=== PATIENT | male | born 1950 | race Caucasian/White ===

== ENCOUNTER → 2021-08-01 07:50 | Outpatient (CLI) | payer MEDICARE, OTHER, SELFPAY ==
--- NOTE | 2021-08-01 07:54 | ECHOCS_ITS ---
Version 2 Reason For Study: CAD/ASHD Procedure This was a 2D Doppler, Color Flow transthoracic echocardiogram. The study was technically difficult. Poor parasternal windows. Contrast injection was performed. Exam performed in department. Left Ventricle Normal LV size. Sigmoid septum. Segmental dysfunction with preserved ejection fraction (see wall motion). The estimated ejection fraction is 55 %. No evidence for diastolic dysfunction. Mid- inferoseptal : Hypokinetic. Mid-anteroseptal : Hypokinetic. Right Ventricle Normal RV size. Normal systolic function. Atria Normal left atrium. Normal right atrium. No doppler evidence for ASD. Mitral Valve There is no mitral annular calcification. Normal mitral valve. Trivial mitral valve insufficiency. Tricuspid Valve Normal tricuspid valve. Trivial tricuspid valve insufficiency. Unable to estimate RV systolic pressure/pulmonary artery pressure due to technically difficult study. Aortic Valve The aortic valve is not well visualized. Pulmonic Valve The pulmonic valve is not well visualized. Great Vessels Normal sized aortic root. Pericardium/Pleural No pericardial effusion. Medication 22 gauge I.V. with prn adaptor inserted into right arm. Diluted definity 3.0ml given slow IV push to enhance endocardial definition. MMode/2D Measurements & Calculations LVIDd: 4.7 cm IVSd: 1.2 cm Ao root diam: 3.5 cm LVIDs: 3.7 cm LVPWd: 1.0 cm RVDd: 3.2 cm FS: 22.4 % LAV(MOD-bp): 53.3 ml LA A4 area: 19.4 cm2 LA dimension(2D): 3.9 cm LAV(MOD-bp) Indexed: 26.5 ml/m2 LAV(MOD-sp2): 53.1 ml LAV(MOD-sp4): 53.4 ml RA A4 area: 16.8 cm2 Time Measurements MV dec time: 0.16 sec Doppler Measurements & Calculations MV E max po: 72.4 cm/sec Lat Peak E' Po: 11.3 cm/sec Med Peak E' Po: 9.6 cm/sec MV A max po: 96.3 cm/sec E/E' lat: 6.4 E/E' med: 7.6 MV E/A: 0.75 Ao V2 max: 141.0 cm/sec LV V1 max: 108.1 cm/sec PA V2 max: 94.1 cm/sec Ao max P.0 mmHg LV V1 max P.7 mmHg ECHO/Echo Complete W/ Contrast Interpretation Summary The study was technically difficult. Contrast injection was performed. Segmental dysfunction with preserved ejection fraction (see wall motion). The estimated ejection fraction is 55 %. Sigmoid septum. Trivial mitral valve insufficiency. Trivial tricuspid valve insufficiency. Unable to estimate RV systolic pressure/pulmonary artery pressure due to [place] difficult study. No evidence for diastolic dysfunction. Ordering Physician: David Lui Referring Physician: Savanna Sinclair Performed By: [place] Thornton, DARLIN, RVT
== END ==
PROVIDERS: PCP Internal Medicine; Referring Provider Internal Medicine Cardiovascular Disease; Visit Provider Internal Medicine Cardiovascular Disease
DX: I25.10 Atherosclerotic heart disease of native coronary artery without angina pectoris (principal)
CPT/HCPCS: 93306; Q9957; A4216; C8929; J3490

== ENCOUNTER 2022-01-02 06:52 | Inpatient (IN) | payer MEDICARE, OTHER, SELFPAY ==
[2022-01-02] VITALS (12 sets, daily range): BP systolic 139–178; BP diastolic 70–97; PULSE 89–104; RESP 12–18; TEMP 36.2–37; O2SAT 96–98; BMI 21.4; BMI 20.9
--- NOTE | 2022-01-02 07:08 | EKG12_ITS ---
Test Reason : GI Blood Pressure : / mmHG Vent. Rate : 097 BPM Atrial Rate : 097 BPM P-R Int : 132 ms QRS Dur : 090 ms QT Int : 334 ms P-R-T Axes : 066 070 080 degrees QTc Int : 424 ms Normal sinus rhythm with sinus arrhythmia Low voltage QRS (Limb Leads) Confirmed by MARISOL LORENZO, HENRY ([id number]), film and video editor JIM EDWARDS ([id number]) on 01/03/2022 8:44:35 AM Referred By: DI Confirmed By:HENRY DAMON MD
--- NOTE | 2022-01-02 07:10 | EDS_ITS ---
HPI History of Present Illness Chief Complaint: General Illness Informant: patient Narrative Narrative: Patient is a 71 year old male presenting with worsening generalized weakness, shortness of breath and cough. He states symptoms started about 2 weeks ago. He went to urgent care 2 days ago and had a chest x ray. He was diagnosed with pneumonia. He was started on cefdinir, azithromycin, prednisone, Tessalon and prednisone. He notes his blood sugars been high because in addition to the prednisone he was given a steroid injection into his shoulder 1 week ago. States he started feeling worse yesterday. Has been drinking lots of samaniego had increased urination as well. Has body aches but no fever. Denies any chest pain. Denies any pulmonary issues in the past. Does have a history of stroke, diabetes mellitus and cardiomyopathy. [facility] Medical History Atherosclerotic heart disease of [place] coronary artery without angina pectoris Bilateral carotid artery stenosis BPH (benign prostatic hyperplasia) Cardiomyopathy, ischemic CKD (chronic kidney disease) stage 3, GFR 30-59 ml/min DDD (degenerative disc disease) Essential hypertension Hemorrhagic cerebrovascular accident (CVA) History of left heart catheterization (LHC) Multiple lacunar infarcts Presence of stent in coronary artery (~08/28/01) Pure hypercholesterolemia Right carotid artery occlusion Type 2 diabetes mellitus Home Medications ascorbic acid (vitamin C) 500 mg tablet 500 mg PO DAILY 07/05/21 [History Last Taken Unknown] aspirin 81 mg tablet,delayed release 81 mg PO DAILY 07/05/21 [History Last Taken Unknown] cyanocobalamin (vitamin B-12) 5,000 mcg disintegrating tablet 5,000 mcg PO DAILY 07/05/21 [History Last Taken Unknown] glimepiride 4 mg tablet 4 mg PO BID tab 07/05/21 [History Last Taken Unknown] loratadine 10 mg tablet 10 mg PO DAILY 07/05/21 [History Last Taken Unknown] metformin 500 mg tablet 1,000 mg PO BID tab 07/05/21 [History Last Taken Unknown] amlodipine 5 mg tablet 5 mg PO DAILY #90 tab 07/20/21 [Rx Last Taken Unknown] atorvastatin 80 mg tablet 80 mg PO QHS #90 tab 07/20/21 [Rx Last Taken Unknown] cholecalciferol (vitamin D3) 25 mcg (1,000 unit) tablet 25 mcg PO BID tab 07/20/21 [History Last Taken Unknown] clopidogrel 75 mg tablet 75 mg PO DAILY #1 tab 07/20/21 [Rx Last Taken Unknown] lisinopril 20 mg tablet 20 mg PO DAILY #90 tab 07/20/21 [Rx Last Taken Unknown] magnesium oxide 250 mg PO BID 07/20/21 [History Last Taken Unknown] carvedilol 3.125 mg tablet 3.125 mg PO BID #180 tab 08/02/21 [Rx Last Taken Unknown] pen needle, diabetic 32 gauge x 1/6 #100 ea 09/22/21 [Rx Last Taken Unknown] insulin glargine U-300 conc 300 unit/mL (1.5 mL) subcutaneous pen 36 unit SUBCUT DAILY #4.5 ml 09/25/21 [Rx Last Taken Unknown] albuterol sulfate 2 puff INHALATION Q6H PRN 01/02/22 [History Last Taken Unknown] azithromycin 250 mg PO DAILY 01/02/22 [History Last Taken Unknown] benzonatate [Tessalon Perles] 100 mg PO TID PRN 01/02/22 [History Last Taken Unknown] cefdinir 300 mg PO BID 01/02/22 [History Last Taken Unknown] prednisone 40 mg PO DAILY 01/02/22 [History Last Taken Unknown] Allergy/AdvReac Type Severity Reaction Status Date / Time No Known Allergies Allergy Verified 01/02/22 06:59 Family History Mother CAD (coronary artery disease) Diabetes Myocardial infarction, Onset Age: 48 Father Diabetes Breast cancer Brother Diabetes Brother Cancer Prostate Surgical History History of arthroscopic surgery of shoulder History of laminectomy (~2007) Presence of coronary angioplasty implant and graft (~08/28/01) Social History Smoking Status: Former smoker alcohol intake: current details: occasional substance use type: does not use caffeine: Yes Type: tea Number of servings: 1 what type of physical activity do you participate in: none ROS ROS ED Constitutional Constitutional ED: Denies chills or fever(s) Eyes Eyes: Denies blurry vision ENT ENT ED: Denies rhinorrhea or sore throat Cardiovascular Cardiovascular: Denies chest pain or palpitations Respiratory/Chest Respiratory/Chest: Reports cough, dyspnea, dyspnea on exertion and sputum Gastrointestinal Gastrointestinal: Reports vomiting; Denies abdominal pain, constipation, diarrhea or nausea Genitourinary Genitourinary ED: Reports urinary frequency; Denies dysuria or hematuria Musculoskeletal Musculoskeletal: Reports myalgias; Denies back pain or neck pain Integumentary Denies rash Neurologic Neurologic: Reports weakness; Denies headache(s) or paresthesias Psychiatric Psychiatric: Denies depression Endocrine Endocrinology: Reports polydipsia and polyuria EXAM Physical Exam Const Vital Signs: 01/02/22 06:53 01/02/22 06:58 01/02/22 07:00 Temperature 98.6 F 98.6 F Temperature Source Temporal Temporal Pulse Rate 104 H 103 H Respiratory Rate 16 14 Respiratory Effort Normal Blood Pressure 178/97 H 178/97 H Blood Pressure Mean 124 124 Pulse Ox 96 Oxygen Delivery Method Room Air Room Air 01/02/22 08:04 01/02/22 09:00 Temperature 98.5 F 98.2 F Temperature Source Temporal Temporal Pulse Rate 93 91 Respiratory Rate 14 16 Respiratory Effort Blood Pressure 167/74 H 168/70 H Blood Pressure Mean 105 102 Pulse Ox 97 97 Oxygen Delivery Method Room Air Room Air Positive well nourished and well developed General Appearance ED: well developed and NAD HEENT Reports dry mucous membranes Negative for tenderness Mouth ED: Yes dry mucous membranes Mouth: dry mucous membranes Eyes PERRL and EOMs intact bilaterally Neck supple and no JVD Chest Wall inspection of chest normal Resp normal respiratory effort Auscultation: diminished lung sounds left upper; Negative for rales or rhonchi Cardio regular rhythm and no murmurs Rate: tachycardic GI normal to inspection, nondistended, normoactive bowel sounds and non-tender Palpation: soft Back/Spine no CVA tenderness Extremity normal to inspection General Extremety ED: Negative for edema or tenderness General Extremity: Negative for edema Neuro oriented x3 Sensorium / Orientation: alert Motor Exam: general weakness Psych mental status grossly normal Skin no rashes or lesions noted and no wounds MDM MDM MDM Narrative Medical decision making narrative: Patient is evaluated with her generalized weakness in the setting of recent diagnosis of pneumonia. He is already on antibiotics and prednisone. Patient peers mildly dehydrated and generally weak but otherwise ago exam is pretty unremarkable. Does have mildly decreased breath sounds in the left upper lobe. Work-up shows a leukocytosis of 16.6. This could be reactive from his recent steroids versus infectious. BMP is remarkable for hyperglycemia with glucose of 500 however his anion gap is 15. Calcium is 5.5 however patient does not have peaked T waves or EKG changes were secondary to his hyperglycemia. Sodium was 130 which is consistent with a pseudohyponatremia. His creatinine is 2.04. I do not have prior labs for baseline comparison. Patient's lactate is elevated 3.8. Troponin is normal at 7. Will add on blood cultures, VBG to check the patient's pH and acetone for concern of possible DKA vs HHNK. His calculated serum osmolality is 315. Is given a liter of fluid in the ER. Acetone negative. Normal pH. Likely this is just hyperglycemia. Patient given 8 units of insulin in the ER. He is admitted. I suspect his lactic acidosis is more from dehydration but infection is also on the differential. He is covered with IV broad-spectrum antibiotics for possible pneumonia given his history however chest x-ray is negative today. No other clear source of infection found. Will be admitted to hospital service for further management of his electrolyte derangement, weakness and possible pneumonia. Lab Data Labs: Laboratory Results - last 24 hr 01/02/22 01/02/22 01/02/22 07:00 07:00 07:00 WBC 16.6 H RBC 5.53 Hgb 17.3 H Hct 49.1 MCV 88.8 MCH 31.3 MCHC 35.2 RDW Std Deviation 40.9 RDW Coeff of Rich 12.5 Plt Count 417 MPV 10.0 Immature Gran % (Auto) 0.700 Neut % (Auto) 80.2 H Lymph % (Auto) 11.3 L Braxton % (Auto) 7.6 Eos % (Auto) 0.0 Baso % (Auto) 0.2 Absolute Neuts (auto) 13.3 H Absolute Lymphs (auto) 1.87 Nucleated RBC % 0 Sodium 130 L Potassium 5.5 H Chloride 91 L Carbon Dioxide 24.0 Anion Gap 15 BUN 76 H Creatinine 2.04 H Estim Creat Clear Calc 33.64 Est GFR (MDRD) Af Amer 42 L Est GFR (MDRD) Non-Af 34 L BUN/Creatinine Ratio 37.3 H Glucose 500 H* Lactic Acid 3.8 H* Calcium 11.1 H Total Bilirubin 0.70 AST 14 L ALT 52 Alkaline Phosphatase 77 Troponin I High Sens 7 Total Protein 8.9 H Albumin 4.4 Globulin 4.5 H Albumin/Globulin Ratio 1.0 Urine Color Urine Clarity Urine pH Ur Specific [place] Urine Protein Urine Glucose (UA) Urine Ketones Urine Occult Blood Urine Nitrite Urine Bilirubin Urine Urobilinogen Ur Leukocyte Esterase Urine RBC Urine WBC Ur Squamous Epith Cells Urine Bacteria Urine Mucus Acetone Level 01/02/22 01/02/22 08:20 09:05 WBC RBC Hgb Hct MCV MCH MCHC RDW Std Deviation RDW Coeff of Rich Plt Count MPV Immature Gran % (Auto) Neut % (Auto) Lymph % (Auto) Braxton % (Auto) Eos % (Auto) Baso % (Auto) Absolute Neuts (auto) Absolute Lymphs (auto) Nucleated RBC % Sodium Potassium Chloride Carbon Dioxide Anion Gap BUN Creatinine Estim Creat Clear Calc Est GFR (MDRD) Af Amer Est GFR (MDRD) Non-Af BUN/Creatinine Ratio Glucose Lactic Acid Calcium Total Bilirubin AST ALT Alkaline Phosphatase Troponin I High Sens Total Protein Albumin Globulin Albumin/Globulin Ratio Urine Color Yellow Urine Clarity Sl. Cloudy Urine pH 6.0 Ur Specific [place] 1.015 Urine Protein 15 H Urine Glucose (UA) 1000 H Urine Ketones 15 H Urine Occult Blood Negative Urine Nitrite Negative Urine Bilirubin Negative Urine Urobilinogen Normal Ur Leukocyte Esterase Negative Urine RBC 0 SEEN Urine WBC 0 SEEN Ur Squamous Epith Cells 0-5 SEEN Urine Bacteria 0 SEEN Urine Mucus 0 SEEN Acetone Level NEGATIVE ABG Data ABG results: ABG 01/02/22 09:17 Specimen Type JUDY VBG pH 7.39 VBG pO2 25 VBG HCO3 22 VBG Total CO2 23 VBG O2 Sat (Calc) 45 L VBG Base Excess -3 L POC Mix VBG pCO2 Pt Tmp 35.3 L Radiography Diagnostic Testing: Clinical Impression(s) from Imaging Studies Chest X-Ray 01/02/22 08:00 IMPRESSION: No obvious acute cardiopulmonary pathology. If Covid 19 pneumonia is a strong clinical consideration, HRCT chest is more sensitive in detecting subtle groundglass opacities not obvious on plain film radiographs. Please correlate with RT-PCR testing. Electronically Signed: Angel Gentile MD at 8:26 EDT , Rhythm Strip Rhythm Strip: Sinus Rhythm Rate: 97 Ectopy: None EKG Initial EKG: Attestation: I personally reviewed and interpreted this EKG as follows: Interpretation: Sinus Rhythm Comments: Normal sinus rhythm with sinus arrhythmia at rate of 97 NE interval 132 QRS 90 QTC [address] segments Discharge Plan Triage Chief Complaint: General Illness ED Provider: Tatiana Strauss Dx/Rx/DC Orders Clinical Impression: Lactic acidosis, Hyperglycemia, Weakness Primary Care Provider: Savanna Sinclair Disposition Disposition: Acute Care [facility]
[2022-01-02 07:23] LABS: Absolute Lymphocyte Count 1.87 X10^3/uL (0.83-4.51); Absolute Neutrophil Count 13.3 X10^3/uL (2.0-7.7); Basophil# 0.03 X10^3/uL; Basophil% 0.2 % (0-1); Hematocrit 49.1 % (40-54); Hemoglobin 17.3 g/dL (13.0-16.5); Lymphocyte # 1.87 X10^3/ul (0.83-4.51); Lymphocyte % 11.3 % (19-41); Mean Corp Hgb Conc 35.2 g/dL (32-36); Mean Corpuscular Hgb 31.3 pg (27.0-32.0); Mean Corpuscular Volume 88.8 fL (80-94); Monocyte# 1.26 X10^3/uL; Monocyte% 7.6 % (0-10); NRBC Flagged by Analyzer 0 % (0-5); Neutrophil # 13.34 X10^3/uL (2.7-7.7); Neutrophil % 80.2 % (47-70); Platelet Count 417 K/mm3 (150-450); RBC Distribution Width CV 12.5 % (11.6-14.6); RBC Distribution Width SD 40.9 fl (35.1-43.9); Red Blood Count 5.53 M/mm3 (4.6-6.2); White Blood Count 16.6 K/mm3 (4.4-11.0)
[2022-01-02] MEDS: 0.9% Normal Saline 1,000 ML 1000 ML IV (07:35)
[2022-01-02 07:53] LABS: AST(SGOT) 14 U/L (15-37); Alanine Aminotransfer ALT/SGPT 52 U/L (16-61); Albumin, Serum 4.4 g/dL (3.2-5.0); Alkaline Phosphatase 77 U/L (45-117); Anion Gap 15 (5-15); BUN 76 mg/dL (7-18); BUN/Creat Ratio 37.3 RATIO (10-20); Calcium,Total 11.1 mg/dL (8.5-10.1); Chloride 91 mmol/L (98-107); Creatinine, Serum 2.04 mg/dL (0.70-1.30); EST Glomerular Filtration Rate 34 mL/min (>60); Est Glom Filt Rate - Afr Amer 42 mL/min (>60); Estimated Creatinine Clearance 33.64 ml/min; Globulin 4.5 g/dL (2.2-4.2); Glucose 500 mg/dL (74-106); Potassium 5.5 mmol/L (3.5-5.1); Protein, Total 8.9 g/dL (6.4-8.2); Sodium Level 130 mmol/L (136-145); Troponin-I HS 7 pg/mL (3.0-78.0)
[2022-01-02 07:55] LABS: Lactic Acid 3.8 mmol/L (0.4-1.9)
--- NOTE | 2022-01-02 08:00 | RAD_ITS ---
EXAM: XR CHEST, 1 VIEW CLINICAL INDICATION: cough TECHNIQUE: Frontal view of the chest. This report was created using [employer] report generation technology. COMPARISON: None. FINDINGS: LUNGS AND PLEURAL SPACES: Mild pulmonary hypoinflation. No obvious infiltrates. No pneumothorax. No effusion. HEART: Unremarkable. Cardiac silhouette not enlarged. MEDIASTINUM: Central airways and mediastinal contour are unremarkable. BONES/JOINTS: Unremarkable. SOFT TISSUES: Unremarkable. RAD/Chest 1 View (Portable) IMPRESSION: No obvious acute cardiopulmonary pathology. If Covid 19 pneumonia is a strong clinical consideration, HRCT chest is more sensitive in detecting subtle groundglass opacities not obvious on plain film radiographs. Please correlate with RT-PCR testing. Electronically Signed: Angel Gentile MD at 8:26 EDT ,
--- NOTE | 2022-01-02 08:09 | ED.RN ---
Dr Strauss made aware pt has triggered sepsis alert. States to give current fluid bolus and then run maintenance fluids at 200 ml/hr due to history of ischemic cardiomyopathy.
[2022-01-02] MEDS: 0.9% Normal Saline 1,000 ML 200 ML IV (08:45)
[2022-01-02 09:13] LABS: Bacteria 0 SEEN /hpf (None Seen); Mucous, Urine 0 SEEN /hpf (<or=2+); Red Blood Cells-Urine 0 SEEN /hpf (0-5); White Blood Cells 0 SEEN /hpf (0-5)
[2022-01-02 09:14] LABS: Color, Urine Yellow (Yellow); Glucose, Dipstick 1000 mg/dl (Normal); Ketone-Dipstick 15 mg/dl (Negative); Leukocyte Esterase-Dipstick Negative /ul (Negative); Nitrite-Dipstick Negative (Negative); Occult Blood-Urine Negative /ul (Negative); Protein-Dipstick 15 mg/dl (Negative); Specific Gravity, Urine 1.015 (1.002-1.030); Urine Bilirubin Dipstick Negative (Negative); Urine Clarity Sl. Cloudy (Clear); Urine Urobilinogen Normal (Normal)
[2022-01-02 09:21] LABS: Blood Gas Specimen Type VEN; VBG BASE EXCESS -3 mmol/L (-1.0-3.5); VBG Bicarbonate 22 mmol/L (22-26); VBG PO2 25 mmHg (25-40); VBG SO2 45 % (50-70); VBG TCO2 23 mmol/L (23-33); VBG pCO2 35.3 mmHg (41-51); VBG pH 7.39 (7.32-7.42)
[2022-01-02 09:28] LABS: Squamous Epithelial Cells - UA 0-5 SEEN /hpf (0-5)
--- NOTE | 2022-01-02 09:39 | HP.PCM.HOS_ITS ---
HPI - General General Date of Admission: 01/02/22 HPI Narrative MARIBELL LAINEZ, is a 71 M with a PMH as outlined who presents via the ED on 01/02/2022 with a complaint of generalised malaise and weakness. He had associated shortness of breath and cough and symptoms had been going on for ~ 2 weeks. He went to the urgent care 2 days prior to admission and says he was diagnosed with pneumonia and given antibiotics, steroids and tessalon. He says he also had a steroid shot in his shoulder about a week ago. He noted his sugars had been getting very high at home and he had increased frequency of urination and and drinking plenty of water as well. He still coughing but is scantly productive of sputum. He denies any fever, any chills and says he vomited once yesterday but has not vomited again since then.Review of systems was otherwise negative. Vitals at time of review were BP of 167/74, CT of 93, RR of 14 and temp of 98.5F and he was saturaing at 97% on room air. CBC showed WBC of 16.6 and hemoglobin of 17.3 with platelets of 417. Chemistry showed sodium of 132 with potassium of 5.5 and creatinine of 2.04. There is no baseline to compare with. Anion gap is 15. Bicarb is 24. Blood glucose was 500 and lactic acid was 3.8. Urinalysis showed no evidence of infection. Chest x-ray showed no obvious acute cardiopulmonary pathology. He has been admitted to be managed for hyperglycemia and lactic acidosis. [facility] Medical History Atherosclerotic heart disease of [place] coronary artery without angina pectoris Bilateral carotid artery stenosis BPH (benign prostatic hyperplasia) Cardiomyopathy, ischemic CKD (chronic kidney disease) stage 3, GFR 30-59 ml/min DDD (degenerative disc disease) Essential hypertension Hemorrhagic cerebrovascular accident (CVA) History of left heart catheterization (LHC) Multiple lacunar infarcts Presence of stent in coronary artery (~08/28/01) Pure hypercholesterolemia Right carotid artery occlusion Type 2 diabetes mellitus Home Medications ascorbic acid (vitamin C) 500 mg tablet 500 mg PO DAILY 07/05/21 [History Last Taken Unknown] aspirin 81 mg tablet,delayed release 81 mg PO DAILY 07/05/21 [History Last Taken Unknown] cyanocobalamin (vitamin B-12) 5,000 mcg disintegrating tablet 5,000 mcg PO DAILY 07/05/21 [History Last Taken Unknown] glimepiride 4 mg tablet 4 mg PO BID tab 07/05/21 [History Last Taken Unknown] loratadine 10 mg tablet 10 mg PO DAILY 07/05/21 [History Last Taken Unknown] metformin 500 mg tablet 1,000 mg PO BID tab 07/05/21 [History Last Taken Unkn own] amlodipine 5 mg tablet 5 mg PO DAILY #90 tab 07/20/21 [Rx Last Taken Unknown] atorvastatin 80 mg tablet 80 mg PO QHS #90 tab 07/20/21 [Rx Last Taken Unknown] cholecalciferol (vitamin D3) 25 mcg (1,000 unit) tablet 25 mcg PO BID tab 07/20/21 [History Last Taken Unknown] clopidogrel 75 mg tablet 75 mg PO DAILY #1 tab 07/20/21 [Rx Last Taken Unknown] lisinopril 20 mg tablet 20 mg PO DAILY #90 tab 07/20/21 [Rx Last Taken Unknown] magnesium oxide 250 mg PO BID 07/20/21 [History Last Taken Unknown] carvedilol 3.125 mg tablet 3.125 mg PO BID #180 tab 08/02/21 [Rx Last Taken Unknown] pen needle, diabetic 32 gauge x 1/6 #100 ea 09/22/21 [Rx Last Taken Unknown] insulin glargine U-300 conc 300 unit/mL (1.5 mL) subcutaneous pen 36 unit SUBCUT DAILY #4.5 ml 09/25/21 [Rx Last Taken Unknown] albuterol sulfate 2 puff INHALATION Q6H PRN 01/02/22 [History Last Taken Unknown] azithromycin 250 mg PO DAILY 01/02/22 [History Last Taken Unknown] benzonatate [Tessalon Perles] 100 mg PO TID PRN 01/02/22 [History Last Taken Unknown] cefdinir 300 mg PO BID 01/02/22 [History Last Taken Unknown] prednisone 40 mg PO DAILY 01/02/22 [History Last Taken Unknown] Allergy/AdvReac Type Severity Reaction Status Date / Time No Known Allergies Allergy Verified 01/02/22 06:59 Family History Mother CAD (coronary artery disease) Diabetes Myocardial infarction, Onset Age: 48 Father Diabetes Breast cancer Brother Diabetes Brother Cancer Prostate Surgical History History of arthroscopic surgery of shoulder History of laminectomy (~2007) Presence of coronary angioplasty implant and graft (~08/28/01) Social History Smoking Status: Former smoker alcohol intake: current details: occasional substance use type: does not use caffeine: Yes Type: tea Number of servings: 1 what type of physical activity do you participate in: none ROS Constitutional Constitutional: Reports anorexia, fatigue, malaise and weakness; Denies change in weight, chills or fever(s) Eyes Eyes: Denies change in vision ENT HEENT: Denies dysphagia, headache(s) or sore throat Cardiovascular Cardiovascular: Denies chest pain, dyspnea on exertion, edema, lightheadedness, orthopnea, palpitations, rapid heart rate or syncope Respiratory/Chest Respiratory/Chest: Reports cough, productive cough, shortness of breath at rest and shortness of breath with exertion; Denies dyspnea, excessive phlegm produ ction, hemoptysis or wheezing Gastrointestinal Gastrointestinal: Reports vomiting; Denies abdominal pain, constipation, diarrhea or nausea Genitourinary Genitourinary: Reports urinary frequency; Denies burning urination, difficulty urinating or dysuria Musculoskeletal Musculoskeletal: Denies arthralgias Neurologic Neurologic: Denies confusion, dizziness, focal weakness, headache(s), numbness, seizure-like activity or seizures Psychiatric Psychiatric: Denies anxiety Endocrine Endocrinology: Denies change in body appearance Hematologic/Lymphatic Hematologic/Lymphatic: Denies anemia Vital Signs Vital Signs Vital Signs: 01/02/22 06:53 01/02/22 06:58 01/02/22 07:00 Temperature 98.6 F 98.6 F Temperature Source Temporal Temporal Pulse Rate 104 H 103 H Respiratory Rate 16 14 Respiratory Effort Normal Blood Pressure 178/97 H 178/97 H Blood Pressure Mean 124 124 Pulse Ox 96 Oxygen Delivery Method Room Air Room Air 01/02/22 08:04 Temperature 98.5 F Temperature Source Temporal Pulse Rate 93 Respiratory Rate 14 Respiratory Effort Blood Pressure 167/74 H Blood Pressure Mean 105 Pulse Ox 97 Oxygen Delivery Method Room Air Weight Weight: 157 lb 13.616 oz Body Mass Index (BMI) 21.4 Physical Exam Const alert and oriented x3 Orientation / Consciousness: disoriented HEENT normocephalic, head/scalp atraumatic and hearing grossly normal bilaterally HEENT Narrative: dry oral mucosa Eyes PERRL, EOMs intact bilaterally and conjunctivae normal Neck no lymphadenopathy and supple Resp normal respiratory effort, no retractions, no use of accessory muscles and clear to auscultation bilaterally Cardio regular rate, regular rhythm, S1 normal heart sound, S2 normal heart sound and no murmurs GI normal to inspection, nondistended, normoactive bowel sounds, soft to palpation, non-tender and non-distended Extremity normal to inspection, full ROM and no clubbing, cyanosis or edema Peripheral Pulses: Yes pulses 2+ throughout Skin no rashes or lesions noted Neuro oriented x3, CN's II-XII intact bilaterally and moves all extremities Sensorium / Orientation: awake and alert Psych affect normal Results Lab / Micro Data Result Diagrams: 01/02/22 07:00 01/02/22 07:00 Labs: Laboratory Results - last 24 hr 01/02/22 07:00: WBC 16.6 H, RBC 5.53, Hgb 17.3 H, Hct 49.1, MCV 88.8, MCH 31.3, MCHC 35.2, RDW Std Deviation 40.9, RDW Coeff of Rich 12.5, Plt Count 417, MPV 10.0, Immature Gran % (Auto) 0.700, Neut % (Auto) 80.2 H, Lymph % (Auto) 11.3 L, [place] % (Auto) 7.6, Eos % (Auto) 0.0, Baso % (Auto) 0.2, Absolute Neuts (auto) 13.3 H, Absolute Lymphs (auto) 1.87, Nucleated RBC % 0 01/02/22 07:00: Sodium 130 L, Potassium 5.5 H, Chloride 91 L, Carbon Dioxide 24.0, Anion Gap 15, BUN 76 H, Creatinine 2.04 H, Estim Creat Clear Calc 33.64, Est GFR (MDRD) Af Amer 42 L, Est GFR (MDRD) Non-Af 34 L, BUN/Creatinine Ratio 37.3 H, Glucose 500 H*, Calcium 11.1 H, Total Bilirubin 0.70, AST 14 L, ALT 52, Alkaline Phosphatase 77, Troponin I High Sens 7, Total Protein 8.9 H, Albumin 4.4, Globulin 4.5 H, Albumin/Globulin Ratio 1.0 01/02/22 07:00: Lactic Acid 3.8 H* 01/02/22 08:20: Acetone Level NEGATIVE 01/02/22 09:05: Urine Color Yellow, Urine Clarity Sl. Cloudy, Urine pH 6.0, Ur Specific [place] 1.015, Urine Protein 15 H, Urine Glucose (UA) 1000 H, Urine Ketones 15 H, Urine Occult Blood Negative, Urine Nitrite Negative, Urine Bilirubin Negative, Urine Urobilinogen Normal, Ur Leukocyte Esterase Negative, Urine RBC 0 SEEN, Urine WBC 0 SEEN, Ur Squamous Epith Cells 0-5 SEEN, Urine Bacteria 0 SEEN, Urine Mucus 0 SEEN Micro: Microbiology 01/02/22 07:40 Nasal Secretion SARS-CoV-2 & FLU Antigen (Rapid) - Final ABG Data ABG results: ABG 01/02/22 09:17 Specimen Type JUDY VBG pH 7.39 VBG pO2 25 VBG HCO3 22 VBG Total CO2 23 VBG O2 Sat (Calc) 45 L VBG Base Excess -3 L POC Mix VBG pCO2 Pt Tmp 35.3 L Rhythm Strip Rhythm Strip: Sinus Rhythm Rate: 97 Ectopy: None Radiology Impression Chest X-Ray 01/02/22 08:00 IMPRESSION: No obvious acute cardiopulmonary pathology. If Covid 19 pneumonia is a strong clinical consideration, HRCT chest is more sensitive in detecting subtle groundglass opacities not obvious on plain film radiographs. Please correlate with RT-PCR testing. Electronically Signed: Angel Gentile MD at 8:26 EDT , Assessment & Plan Assessment/Plan (1) Hyperglycemia: (2) Lactic acidosis: PLAN: #Hyperglycemia, likely exacerbated by steroid use * admit to PCU * blood sugar was in the 500s on admission. Says he has been on oral prednisone which was prescribed at an urgent care as part of treatment for pneumonia * urinalysis showed no evidence of infection. CXR also showed no evidence of pneumonia * wbc is 16.6, likely due to steroid usage. It is mainly a neutrophilia * hydrate aggressively with iVF * give SQ insulin lispro 20 units x 1, and assess hourly to adjust insulin dose as needed for hyperglycemia * get blood cultures * covid test is negative, and flu test was also negative * will give IV vancomycin and zosyn empirically and await blood cultures * bicarb is 24 and anion gap is 15, so there is no DKA. * check A1C * hold glimepiride * on lantus 36 units daily. Will resume * #LActic acidosis: likely due to dehydration. hold metformin. hydrate with IVF and trend lactic acid #Hyperkalemia: Potassium is 5.5. Will give Kayexalate and hold all nephrotoxic meds and trend. #JINA: * Creatinine is 2.04. * No baseline is available. * Will hydrate with fluids and trend. If it does not improve, then we will do extensive work-up including urine electrolytes and renal ultrasound. * #History of CVA; has residual mild expressive aphasia. on aspirin and statin as well as carvedilol #Hypertension; on amlodipine and carvedilol. Hold lisinopril DVT prophylaxis: lovenox Code status: full code * Patient and counseled extensively about different types of CODE STATUS including full code, DNR CCA and DNR CCA. Patient elects to be full code. * Total [id number] time 17 minutes. Charges/Coding Visit Charges Inpatient E&M: 86447 Init Hosp L3 Procedures Hospitalists Procedures: 87530 Advncd Care Plan 30 Min
[2022-01-02 10:06] LABS: Bedside Glucose 334 mg/dL (74-106)
[2022-01-02] MEDS: Insulin Lispro 100 UNIT/ML INSULN.PEN 8 UNIT SC (11:09)
[2022-01-02 11:14] LABS: Reflex Lactate? Y
[2022-01-02] MEDS: 0.9% Normal Saline 1,000 ML 150 ML IV ×2 (12:15→18:30)
[2022-01-02 12:31] LABS: Bedside Glucose 400 mg/dL (74-106)
[2022-01-02 12:33] LABS: Lactic Acid 1.5 mmol/L (0.4-1.9)
[2022-01-02] MEDS: Carvedilol 3.125 MG TABLET PO ×2 (13:39→22:02)
[2022-01-02] MEDS: Loratadine 10 MG Tablet PO (13:39)
[2022-01-02] MEDS: Magnesium Chloride 64 MG Delay Rel.Tablet 128 MG PO ×2 (13:39→22:03)
[2022-01-02] MEDS: Aspirin E.C. 81 MG Tablet PO (13:39)
[2022-01-02] MEDS: Clopidogrel Bisulfate 75 MG Tablet PO (13:39)
[2022-01-02] MEDS: Glimepiride 4 MG Tablet PO ×2 (13:39→22:02)
[2022-01-02] MEDS: Cyanocobalamin 500 MCG Tablet 5000 MCG PO (13:39)
[2022-01-02] MEDS: Cholecalciferol (VIT D3) 25 MCG TABLET (1,000 UNITS) PO ×2 (13:40→22:04)
[2022-01-02] MEDS: Ascorbic Acid 500 MG Tablet PO (13:40)
[2022-01-02] MEDS: Insulin Lispro 100 UNIT/ML INSULN.PEN 20 UNIT SC (13:41)
[2022-01-02 16:05] LABS: Bedside Glucose 325 mg/dL (74-106)
--- NOTE | 2022-01-02 16:22 | PCM.RX.CS ---
Consult Pharmacy has been consulted to manage selected antiobiotic: Vancomycin Type of Consult: New start Suspected Infection: Other Labs: Sodium 130 mmol/L (136-145) L 01/02/22 07:00 Potassium 5.5 mmol/L (3.5-5.1) H 01/02/22 07:00 Chloride 91 mmol/L (98-107) L 01/02/22 07:00 Carbon Dioxide 24.0 mmol/L (21.0-32.0) 01/02/22 07:00 Anion Gap 15 (5-15) 01/02/22 07:00 BUN 76 mg/dL (7-18) H 01/02/22 07:00 Creatinine 2.04 mg/dL (0.70-1.30) H 01/02/22 07:00 Est GFR (MDRD) Af Amer 42 mL/min (>60) L 01/02/22 07:00 Est GFR (MDRD) Non-Af 34 mL/min (>60) L 01/02/22 07:00 BUN/Creatinine Ratio 37.3 RATIO (10-20) H 01/02/22 07:00 Glucose 500 mg/dL (74-106) H* 01/02/22 07:00 Microbiology: Microbiology 01/02/22 07:40 Nasal Secretion SARS-CoV-2 & FLU Antigen (Rapid) - Final Pharmacy Plan for Drug Dosing: NEW START IV VANCOMYCIN Consulting Physician: MIKIE Indication: UNKNOWN, BLOOD CULTURES PENDING Goal Trough: 15-20 MG/DL SrCr: 2.04 (01/02) - NO BASELINE IN CHART TO COMPARE CrCl: 32.9 ML/MIN Comments: LOADING DOSE OF 1750MG GIVEN 01/02 @ 1448 Vancomycin Dose: START 1000MG Q24H 01/03 @ 1500 AND GET A TROUGH PRIOR TO 3RD DOSE PER POLICY. Pending Level: 01/04 @ 1430 Pharmacy Service will continue to monitor and adjust dosing as required.
[2022-01-02] MEDS: Insulin Lispro 100 UNIT/ML INSULN.PEN SC ×2 (17:16→22:02)
[2022-01-02] MEDS: Sodium Polystyrene Sulfonate 15 GM/60 ML UDC 30 GM PO (17:16)
[2022-01-02] MEDS: Atorvastatin Calcium 80 MG Tablet PO (22:03)
[2022-01-02 22:16] LABS: Bedside Glucose 349 mg/dL (74-106)
[2022-01-03] VITALS (10 sets, daily range): BP systolic 120–150; BP diastolic 76–85; PULSE 81–98; RESP 15–16; TEMP 36.6–37.1; O2SAT 95–98
[2022-01-03 01:50] LABS: Bedside Glucose 287 mg/dL (74-106)
[2022-01-03 06:02] LABS: Absolute Lymphocyte Count 1.15 X10^3/uL (0.83-4.51); Absolute Neutrophil Count 11.5 X10^3/uL (2.0-7.7); Basophil# 0.02 X10^3/uL; Basophil% 0.1 % (0-1); Hematocrit 41.4 % (40-54); Hemoglobin 14.5 g/dL (13.0-16.5); Lymphocyte # 1.15 X10^3/ul (0.83-4.51); Lymphocyte % 8.3 % (19-41); Mean Corpuscular Hgb 30.8 pg (27.0-32.0); Mean Corpuscular Volume 87.9 fL (80-94); Mean Platelet Vol. 9.7 fl (6.2-12.0); Monocyte# 1.03 X10^3/uL; Monocyte% 7.5 % (0-10); NRBC Flagged by Analyzer 0 % (0-5); Neutrophil % 83.5 % (47-70); Platelet Count 319 K/mm3 (150-450); RBC Distribution Width CV 12.6 % (11.6-14.6); RBC Distribution Width SD 40.6 fl (35.1-43.9); Red Blood Count 4.71 M/mm3 (4.6-6.2); White Blood Count 13.8 K/mm3 (4.4-11.0)
[2022-01-03] MEDS: Insulin Lispro 100 UNIT/ML INSULN.PEN SC ×4 (06:31→22:17)
[2022-01-03 06:48] LABS: Anion Gap 9 (5-15); BUN 47 mg/dL (7-18); BUN/Creat Ratio 35.6 RATIO (10-20); Calcium,Total 8.9 mg/dL (8.5-10.1); Chloride 103 mmol/L (98-107); Creatinine, Serum 1.32 mg/dL (0.70-1.30); EST Glomerular Filtration Rate 57 mL/min (>60); Est Glom Filt Rate - Afr Amer 69 mL/min (>60); Estimated Creatinine Clearance 50.89 ml/min; Glucose 235 mg/dL (74-106); Potassium 4.6 mmol/L (3.5-5.1); Sodium Level 136 mmol/L (136-145)
[2022-01-03 06:55] LABS: Bedside Glucose 275 mg/dL (74-106)
[2022-01-03] MEDS: Glucerna Shake 120 ML LIQUID PO ×3 (08:27→17:28)
[2022-01-03] MEDS: Cholecalciferol (VIT D3) 25 MCG TABLET (1,000 UNITS) PO ×2 (08:28→21:08)
[2022-01-03] MEDS: Enoxaparin 40 MG/0.4 ML Syringe SC (08:28)
[2022-01-03] MEDS: Ascorbic Acid 500 MG Tablet PO (08:28)
[2022-01-03] MEDS: Glimepiride 4 MG Tablet PO ×3 (08:28→21:08)
[2022-01-03] MEDS: amLODIPine 5 MG Tablet PO (08:28)
[2022-01-03] MEDS: Loratadine 10 MG Tablet PO (08:29)
[2022-01-03] MEDS: Magnesium Chloride 64 MG Delay Rel.Tablet 128 MG PO ×2 (08:29→21:08)
[2022-01-03] MEDS: Cyanocobalamin 500 MCG Tablet 1000 MCG PO (08:29)
[2022-01-03] MEDS: Aspirin E.C. 81 MG Tablet PO (08:29)
[2022-01-03] MEDS: Carvedilol 3.125 MG TABLET PO ×2 (08:29→21:08)
[2022-01-03] MEDS: Clopidogrel Bisulfate 75 MG Tablet PO ×2 (08:29→21:08)
[2022-01-03] MEDS: Insulin Glargine-YFGN 100 UNIT/ML Pen 36 UNIT SC (08:36)
--- NOTE | 2022-01-03 09:47 | PN.HOSP_ITS ---
Subjective Subjective Patient seen and examined. He feels much better today. He had no active complaints and denies fever, chills, nausea, vomiting or diarrhea. Review of systems otherwise negative. Objective Data Objective Data Vital Signs: Vital Signs Temp Pulse Resp BP Pulse Ox 97.8 F 96 15 148/80 H 96 01/03/22 08:39 01/03/22 08:39 01/03/22 08:39 01/03/22 08:39 01/03/22 08:39 Oxygen Delivery Method Room Air Weight: 154 lb 8.705 oz Body Mass Index (BMI) 20.9 Intake & Output: Intake and Output for Last 24 Hours 01/01/22 01/02/22 01/03/22 23:59 23:59 23:59 Intake Total 3760.83 / 3960.83 1450 / 1450 Balance 3760.83 / 3960.83 1450 / 1450 Medical Nutrition Assessment Dietitian: Malnutrition Criteria Met Start: 01/02/22 17:17 Freq: Status: Active Protocol: Document 01/02/22 17:17 RMA (Rec: 01/02/22 17:18 RMA [id number]) Nutrition Malnutrition Evidence of Malnutrition Exists Yes Malnutrition (severe): Acute Illness/Injury Evidenced By Suboptimal Energy Intake ( Severe),Weight Loss (Severe) Clinical Problem Acute Disease or Injury Related Malnutrition Etiology Severe protein-calorie malnutrition in the context of acute illness 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 Will add 120 ml glucerna shake TID w/ medpass--pt likes strawberry flavored. Lab / Micro Data Result Diagrams: 01/03/22 05:45 01/03/22 05:45 Labs: Laboratory Results - last 24 hr 01/02/22 09:58: POC Glucose 334 H 01/02/22 11:45: Lactic Acid 1.5 01/02/22 11:56: POC Glucose 400 H 01/02/22 16:02: POC Glucose 325 H 01/02/22 22:00: POC Glucose 349 H 01/03/22 01:35: POC Glucose 287 H 01/03/22 05:45: WBC 13.8 H, RBC 4.71, Hgb 14.5, Hct 41.4, MCV 87.9, MCH 30.8, MCHC 35.0, RDW Std Deviation 40.6, RDW Coeff of Rich 12.6, Plt Count 319, MPV 9.7, Immature Gran % (Auto) 0.600, Neut % (Auto) 83.5 H, Lymph % (Auto) 8.3 L, [place] % (Auto) 7.5, Eos % (Auto) 0.0, Baso % (Auto) 0.1, Absolute Neuts (auto) 11.5 H, Absolute Lymphs (auto) 1.15, Nucleated RBC % 0 01/03/22 05:45: Sodium 136, Potassium 4.6, Chloride 103, Carbon Dioxide 24.0, Anion Gap 9, BUN 47 H, Creatinine 1.32 H, Estim Creat Clear Calc 50.89, Est GFR (MDRD) Af Amer 69, Est GFR (MDRD) Non-Af 57 L, BUN/Creatinine Ratio 35.6 H, Glucose 235 H, Calcium 8.9 01/03/22 06:29: POC Glucose 275 H Micro: Microbiology 01/02/22 07:40 Nasal Secretion SARS-CoV-2 & FLU Antigen (Rapid) - Final Rhythm Strip Rhythm Strip: Sinus Rhythm Rate: 97 Ectopy: None Physical Exam Const alert, oriented x3 and no apparent distress Orientation / Consciousness: disoriented Exam Limitations: no limitations HEENT normocephalic, head/scalp atraumatic, hearing grossly normal bilaterally and moist oral mucous membranes Head and Scalp: normocephalic Eyes PERRL, EOMs intact bilaterally and conjunctivae normal Neck no lymphadenopathy and supple Resp normal respiratory effort, no retractions, no use of accessory muscles and clear to auscultation bilaterally Cardio regular rate, regular rhythm, S1 normal heart sound, S2 normal heart sound and no murmurs GI normal to inspection, nondistended, normoactive bowel sounds, soft to palpation, non-tender and non-distended Extremity normal to inspection, full ROM and no clubbing, cyanosis or edema Peripheral Pulses: Yes pulses 2+ throughout Skin no rashes or lesions noted Neuro oriented x3, CN's II-XII intact bilaterally and moves all extremities Sensorium / Orientation: awake and alert Psych affect normal Assessment & Plan Assessment/Plan (1) Hyperglycemia: (2) Lactic acidosis: PLAN: #Hyperglycemia, likely exacerbated by steroid use * resolved * was likely exacerbated by steroid use * was hydrated with IVF; will dc IVF * on his baseline insulin lantus 36 units * ISS. Accuchecks ACHS * wbc trending downwards * will resume glimepiride * was started on empiric vancomycin and zosyn due to concern about infection. Blood cultures pending; if these are negative, will dc antibiotics * #LActic acidosis: resolved. Was likely due to dehydration. metformin on hold #Hyperkalemia: resolved. K is 4.6 today. #JINA: * Creatinine is 1.32 today. Was 2.04 yesterday * No baseline is available. * will continue to trend * #History of CVA; has residual mild expressive aphasia. on aspirin and statin as well as carvedilol #Hypertension; on amlodipine and carvedilol. Hold lisinopril DVT prophylaxis: lovenox Code status: full code * Charges/Coding Visit Charges Inpatient E&M: 80319 Subs Hosp L2
[2022-01-03 11:16] LABS: Bedside Glucose 385 mg/dL (74-106)
--- NOTE | 2022-01-03 11:55 | CASEMGMT ---
RN CM PHONE TRIAGE SPECIALIST CM to room to meet with patient for initial transition planning/care coordination assessment. RN LINDA introduced self and role at [facility]. Pt voices understanding and consents to assessment at this time. Pt resting in bed in no distress at this time. @ bedside. Pt is A/O at this time and answers all questions appropriately. Care providers, pharmacy, and demographics verified/updated at this time. PCP: Dr Sinclair--Has appt 01/10 @ 11:30 AM Specialists: Dr Lui--cardiology, Dr Camejo--has initial appt 03/12 @ 0845 Preferred Pharmacy: [facility] Retail Insurance: [facility], [place] Prescription Benefit: Yes Living Will/HPOA: Has both LW and HPOA, who is his , Charley. Copies not on file @ [facility]. Pt & aware and states will try and bring in. LNOK: Charley Living Arrangements: Lives w/ in one-story home w/2 steps to enter. Independent. and pt share home mgmt tasks. Transportation: Pt states drives self and states no transportation concerns at this time. also drives. DME: Has functioning glucometer w/testing supplies. HHC/SNF: No hx of either. No needs identified. Pt wishes to return home and states has no concerns with going home at time of discharge. CM to follow for any discharge planning/needs. Pt and voice no concerns/needs at this time. Advised pt and to ask for CM if any further questions/concerns/needs arise. They voice understanding. PLAN: Home w/spousal support and discharge plans in place. Mary Ann ACE RN, CM
[2022-01-03] MEDS: Vancomycin IV 1,000 MG/200 ML BAG 200 MG IV (14:33)
[2022-01-03] MEDS: 0.9% Saline Lock 10 ML Syringe IV (14:33)
[2022-01-03 17:36] LABS: Bedside Glucose 368 mg/dL (74-106)
[2022-01-03] MEDS: Insulin Lispro 100 UNIT/ML INSULN.PEN 25 UNIT SC (21:00)
[2022-01-03] MEDS: Atorvastatin Calcium 80 MG Tablet PO (21:08)
[2022-01-03 21:20] LABS: Glucose 419 mg/dL (74-106)
[2022-01-03 22:25] LABS: Bedside Glucose 350 mg/dL (74-106)
[2022-01-04 03:11] VITALS: BP 145/87; PULSE 84; RESP 16; TEMP 36.7; O2SAT 98
[2022-01-04 04:11] VITALS: PULSE 83
[2022-01-04] MEDS: Insulin Lispro 100 UNIT/ML INSULN.PEN SC ×2 (06:41→11:13)
[2022-01-04 06:45] LABS: Bedside Glucose 206 mg/dL (74-106)
[2022-01-04 07:00] VITALS: PULSE 87
[2022-01-04 07:20] LABS: Bedside Glucose 425 mg/dL (74-106)
[2022-01-04 07:20] LABS: Bedside Glucose 453 mg/dL (74-106)
[2022-01-04] MEDS: Glucerna Shake 120 ML LIQUID PO (07:40)
[2022-01-04] MEDS: Aspirin E.C. 81 MG Tablet PO (07:40)
[2022-01-04] MEDS: Ascorbic Acid 500 MG Tablet PO (07:40)
[2022-01-04 08:23] VITALS: PULSE 86
[2022-01-04 08:27] VITALS: BP 141/80; PULSE 86; RESP 16; TEMP 36.5; O2SAT 97
[2022-01-04 09:01] LABS: Absolute Lymphocyte Count 1.29 X10^3/uL (0.83-4.51); Basophil# 0.01 X10^3/uL; Basophil% 0.1 % (0-1); Eosinophil# 0.01 X10^3/uL; Eosinophils% 0.1 % (0-5); Hematocrit 45.6 % (40-54); Hemoglobin 15.7 g/dL (13.0-16.5); Lymphocyte # 1.29 X10^3/ul (0.83-4.51); Lymphocyte % 10.1 % (19-41); Mean Corp Hgb Conc 34.4 g/dL (32-36); Mean Corpuscular Hgb 30.8 pg (27.0-32.0); Mean Corpuscular Volume 89.4 fL (80-94); Mean Platelet Vol. 10.1 fl (6.2-12.0); Monocyte# 1.31 X10^3/uL; Monocyte% 10.3 % (0-10); NRBC Flagged by Analyzer 0 % (0-5); Neutrophil # 10.04 X10^3/uL (2.7-7.7); Neutrophil % 78.8 % (47-70); Platelet Count 321 K/mm3 (150-450); RBC Distribution Width CV 12.3 % (11.6-14.6); RBC Distribution Width SD 40.7 fl (35.1-43.9); White Blood Count 12.7 K/mm3 (4.4-11.0)
[2022-01-04] MEDS: Cholecalciferol (VIT D3) 25 MCG TABLET (1,000 UNITS) PO (09:05)
[2022-01-04] MEDS: Enoxaparin 40 MG/0.4 ML Syringe SC (09:05)
[2022-01-04] MEDS: Magnesium Chloride 64 MG Delay Rel.Tablet 128 MG PO (09:05)
[2022-01-04] MEDS: Carvedilol 3.125 MG TABLET PO (09:05)
[2022-01-04] MEDS: Loratadine 10 MG Tablet PO (09:05)
[2022-01-04] MEDS: amLODIPine 5 MG Tablet PO (09:05)
[2022-01-04] MEDS: Insulin Glargine-YFGN 100 UNIT/ML Pen 36 UNIT SC (09:05)
[2022-01-04] MEDS: Cyanocobalamin 500 MCG Tablet 1000 MCG PO (09:05)
[2022-01-04 09:27] LABS: BUN 40 mg/dL (7-18); Creatinine, Serum 1.31 mg/dL (0.70-1.30); EST Glomerular Filtration Rate 57 mL/min (>60); Estimated Creatinine Clearance 51.28 ml/min; Glucose 228 mg/dL (74-106)
[2022-01-04 09:28] LABS: Anion Gap 7 (5-15); BUN/Creat Ratio 30.5 RATIO (10-20); Chloride 103 mmol/L (98-107); Est Glom Filt Rate - Afr Amer 69 mL/min (>60); Potassium 4.3 mmol/L (3.5-5.1); Sodium Level 137 mmol/L (136-145)
--- NOTE | 2022-01-04 10:27 | DS.PCM_ITS ---
Providers Date of Admission: 01/02/22 Primary Care Physician: Dr. Savanna Sinclair MD Reason For Visit: HYPERGLYCEMIA, WEAKNESS Diagnosis Discharge Diagnosis (1) Hyperglycemia: Status: Acute Code(s): R73.9 - Hyperglycemia, unspecified (2) Lactic acidosis: Status: Acute Code(s): E87.2 - Acidosis Medications at Discharge Home Medications ascorbic acid (vitamin C) 500 mg tablet 500 mg PO DAILY 07/05/21 aspirin 81 mg tablet,delayed release 81 mg PO DAILY 07/05/21 cyanocobalamin (vitamin B-12) 5,000 mcg disintegrating tablet 1,000 mcg PO DAILY 07/05/21 glimepiride 4 mg tablet 4 mg PO BID tab 07/05/21 loratadine 10 mg tablet 10 mg PO DAILY 07/05/21 metformin 500 mg tablet 1,000 mg PO BID tab 07/05/21 amlodipine 5 mg tablet 5 mg PO DAILY #90 tab 07/20/21 atorvastatin 80 mg tablet 80 mg PO QHS #90 tab 07/20/21 cholecalciferol (vitamin D3) 25 mcg (1,000 unit) tablet 25 mcg PO BID tab 07/20/21 clopidogrel 75 mg tablet 75 mg PO DAILY #1 tab 07/20/21 lisinopril 20 mg tablet 20 mg PO DAILY #90 tab 07/20/21 magnesium oxide 250 mg PO BID 07/20/21 carvedilol 3.125 mg tablet 3.125 mg PO BID #180 tab 08/02/21 pen needle, diabetic 32 gauge x 1/6 #100 ea 09/22/21 insulin glargine U-300 conc 300 unit/mL (1.5 mL) subcutaneous pen 36 unit SUBCUT DAILY #4.5 ml 09/25/21 albuterol sulfate 2 puff INHALATION Q6H PRN 01/02/22 benzonatate 100 mg PO TID PRN 01/02/22 Hospital Course Operations None Procedures None Summary of Care Provided Minutes Spent on Discharge: 45 Hospital Course: MARIBELL LAINEZ, is a 71 M with a PMH as outlined who presents via the ED on 01/02/2022 with a complaint of generalised malaise and weakness. He had associated shortness of breath and cough and symptoms had been going on for ~ 2 weeks. He went to the urgent care 2 days prior to admission and says he was diagnosed with pneumonia and given antibiotics, steroids and tessalon. He says he also had a steroid shot in his shoulder about a week ago. He noted his sugars had been getting very high at home and he had increased frequency of urination and and drinking plenty of water as well. He still coughing but is scantly productive of sputum. He denies any fever, any chills and says he vomited once yesterday but has not vomited again since then.Review of systems was otherwise negative. Vitals at time of review were BP of 167/74, VT of 93, RR of 14 and temp of 98.5F and he was saturaing at 97% on room air. CBC showed WBC of 16.6 and hemoglobin of 17.3 with platelets of 417. Chemistry showed sodium of 132 with potassium of 5.5 and creatinine of 2.04. There is no baseline to compare with. Anion gap is 15. Bicarb is 24. Blood glucose was 500 and lactic acid was 3.8. Urinalysis showed no evidence of infection. Chest x-ray showed no obvious acute cardiopu lmonary pathology. He was admitted to be managed for hyperglycemia and lactic acidosis. He was agressively hydrated with IVF and blood sugars trended downwards and hyperglycemia resolved. He was also started on empiric broad spectrum antimicrobials with IV vancomycin and zosyn. Blood cultures were obtained and urinalysis showed no evidence of infection. BLood cultures were negative after 48 hours. His symptoms resolved and he felt much better. He remained stable and was discharged home on 01/04/2022. He is to follow up with his PCP within 1-2 weeks. Patient seen and examined. He had no active complaints and had an uneventful night. Review of systems otherwise negative. Labs and vitals reviewed. Home medication reviewed and reconciled. Physical Exam Const alert, oriented x3 and no apparent distress General Appearance: cooperative, comfortable and well kempt Orientation / Consciousness: awake, oriented to person, oriented to place and oriented to time Exam Limitations: no limitations HEENT normocephalic, head/scalp atraumatic, hearing grossly normal bilaterally and moist oral mucous membranes Eyes PERRL, EOMs intact bilaterally and conjunctivae normal Neck no lymphadenopathy and supple Resp normal respiratory effort, no retractions, no use of accessory muscles and clear to auscultation bilaterally Cardio regular rate, regular rhythm, S1 normal heart sound, S2 normal heart sound and no murmurs GI normal to inspection, nondistended, normoactive bowel sounds, soft to palpation, non-tender and non-distended Extremity normal to inspection, full ROM and no clubbing, cyanosis or edema Skin no rashes or lesions noted Neuro oriented x3, CN's II-XII intact bilaterally and moves all extremities Sensorium / Orientation: awake and alert Psych affect normal Medical Records Data Medical Nutrition Assessment Dietitian: Malnutrition Criteria Met Start: 01/02/22 17:17 Freq: Status: Active Protocol: Document 01/02/22 17:17 RMA (Rec: 01/02/22 17:18 RMA [id number]) Nutrition Malnutrition Evidence of Malnutrition Exists Yes Malnutrition (severe): Acute Illness/Injury Evidenced By Suboptimal Energy Intake ( Severe),Weight Loss (Severe) Clinical Problem Acute Disease or Injury Related Malnutrition Etiology Severe protein-calorie malnutrition in the context of acute illness 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 Will add 120 ml glucerna shake TID w/ medpass--pt likes strawberry flavored. Weight / BMI Weight Weight: 154 lb 8.705 oz Body Mass Index (BMI) 20.9 ABG / Lab / Microbiology Data Result Diagrams: 01/04/22 08:45 01/04/22 08:45 Laboratory: Laboratory Results - last 24 hr 01/03/22 11:08: POC Glucose 385 H 01/03/22 17:23: POC Glucose 368 H 01/03/22 20:22: POC Glucose 453 H* 01/03/22 20:25: POC Glucose 425 H 01/03/22 21:00: Glucose 419 H 01/03/22 22:09: POC Glucose 350 H 01/04/22 06:39: POC Glucose 206 H 01/04/22 08:45: WBC 12.7 H, RBC 5.10, Hgb 15.7, Hct 45.6, MCV 89.4, MCH 30.8, MCHC 34.4, RDW Std Deviation 40.7, RDW Coeff of Rich 12.3, Plt Count 321, MPV 10.1, Immature Gran % (Auto) 0.600, Neut % (Auto) 78.8 H, Lymph % (Auto) 10.1 L, [place] % (Auto) 10.3 H, Eos % (Auto) 0.1, Baso % (Auto) 0.1, Absolute Neuts (auto) 10.0 H, Absolute Lymphs (auto) 1.29, Nucleated RBC % 0 01/04/22 08:45: Sodium 137, Potassium 4.3, Chloride 103, Carbon Dioxide 27.0, Anion Gap 7, BUN 40 H, Creatinine 1.31 H, Estim Creat Clear Calc 51.28, Est GFR (MDRD) Af Amer 69, Est GFR (MDRD) Non-Af 57 L, BUN/Creatinine Ratio 30.5 H, Glucose 228 H, Calcium 9.0 Microbiology: Microbiology 01/02/22 07:40 Nasal Secretion SARS-CoV-2 & FLU Antigen (Rapid) - Final D/C Instructions Discharge Diet: 1800 Calorie Control Diet Discharge Activity: Return to Normal Activity Weight Bearing Status: Weight bearing as tolerated Call your doctor if you observe: Fever of 101 or Higher, Shortness of breath, Dizziness, Swelling in the ankles, Chest pain and Increased palpitations (irregular heartbeat) Meaningful Use Info Meaningful Use Diagnoses (Choose all that apply): None applicable Discharge Plan Admission Admit Date/Time: 01/02/22 09:54 Primary Reason for Your Visit: hyperglycemia in a known diabetic Attending Provider: Renae Rubalcava Primary Care Provider: Savanna Sinclair Instructions Patient Instructions: Blood Sugar Monitoring and ..., ED Diabetic Hyperglycemia Discharge Orders/Prescriptions Prescriptions: Continued magnesium oxide 250 mg magnesium tablet 250 mg PO BID RF: 0 clopidogrel [Plavix] 75 mg tablet 75 mg PO DAILY Qty: 1 RF: 0 amlodipine 5 mg tablet 5 mg PO DAILY Qty: 90 RF: 4 atorvastatin 80 mg tablet 80 mg PO QHS Qty: 90 RF: 4 lisinopril 20 mg tablet 20 mg PO DAILY Qty: 90 RF: 4 glimepiride 4 mg tablet 4 mg PO BID RF: 0 metformin 500 mg tablet 1,000 mg PO BID RF: 0 loratadine 10 mg tablet 10 mg PO DAILY RF: 0 cyanocobalamin (vitamin B-12) 5,000 mcg tablet,disintegrating 1,000 mcg PO DAILY RF: 0 ascorbic acid (vitamin C) 500 mg tablet 500 mg PO DAILY RF: 0 aspirin [Adult Low Dose Aspirin] 81 mg tablet,delayed release (DR/EC) 81 mg PO DAILY RF: 0 cholecalciferol (vitamin D3) 25 mcg (1,000 unit) tablet 25 mcg PO BID RF: 0 benzonatate 100 mg Capsule 100 mg PO TID PRN (Reason: Cough) RF: 0 albuterol sulfate 90 mcg/actuation Hfa Aerosol Inhaler 2 puff INHALATION Q6H PRN (Reason: Shortness Of Breath) RF: 0 carvedilol 3.125 mg tablet 3.125 mg PO BID Qty: 180 RF: 4 (DME) NovoFine Plus 32 gauge x 1/6 needle See Rx Instructions .ROUTE .MEDSUPPLY Qty: 100 RF: 4 Toujeo SoloStar U-300 Insulin 300 unit/mL (1.5 mL) insulin pen 36 unit subcut DAILY Qty: 4.5 RF: 5 Discontinued azithromycin 250 mg Capsule 250 mg PO DAILY RF: 0 prednisone 20 mg Tablet 40 mg PO DAILY RF: 0 cefdinir 300 mg Capsule 300 mg PO BID RF: 0 Referrals / Follow Up: Savanna Sinclair MD [Primary Care Provider] - 01/10/22 11:30 am (as already scheduled by pt) Jimmy Camejo MD [STAFF PHYSICIAN] - 03/12/22 8:45 am (as already scheduled by pt) Disposition Disposition (needs filled in before D/C Order can be placed): Home, Self Care Charges/Coding Visit Charges Inpatient E&M: 20482 Disch Hosp
[2022-01-04 11:00] VITALS: PULSE 92
[2022-01-04 11:20] LABS: Bedside Glucose 433 mg/dL (74-106)
== END 2022-01-04 12:09 | disposition home or self-care (01) | DRG 637 ==
LOC: ED 07:37 → PCU 09:55
PROVIDERS: Admitting Provider Student in an Organized Health Care Education/Training Program; Emergency Provider Emergency Medicine; PCP Internal Medicine; Visit Provider Student in an Organized Health Care Education/Training Program
DX: E11.65 Type 2 diabetes mellitus with hyperglycemia (principal); E43 Unspecified severe protein-calorie malnutrition; N17.9 Acute kidney failure, unspecified; E87.2 Acidosis; E11.22 Type 2 diabetes mellitus with diabetic chronic kidney disease; Z79.4 Long term (current) use of insulin; N18.30 Chronic kidney disease, stage 3 unspecified; I25.5 Ischemic cardiomyopathy; I12.9 Hypertensive chronic kidney disease with stage 1 through stage 4 chronic kidney disease, or unspecified chronic kidney disease; E78.00 Pure hypercholesterolemia, unspecified; I25.10 Atherosclerotic heart disease of native coronary artery without angina pectoris; E87.5 Hyperkalemia; N40.0 Benign prostatic hyperplasia without lower urinary tract symptoms; R53.1 Weakness; Z87.891 Personal history of nicotine dependence; Z86.73 Personal history of transient ischemic attack (TIA), and cerebral infarction without residual deficits; T38.0X5A Adverse effect of glucocorticoids and synthetic analogues, initial encounter; Z79.82 Long term (current) use of aspirin; Z79.899 Other long term (current) drug therapy; Z79.52 Long term (current) use of systemic steroids; Z68.20 Body mass index [BMI] 20.0-20.9, adult; Z79.02 Long term (current) use of antithrombotics/antiplatelets
CPT/HCPCS: 36415; 71045; 80048; 80053; 81001; 82009; 82803; 82947; 82962; 83036; 83605; 84484; 85025; 87040; 87428; 93005; 97161; 97166; 97802; 99285; J7030; J7040; Q9957; A4216; J0696

== ENCOUNTER 2022-01-08 08:18 | Emergency (ER) | payer MEDICARE, OTHER, SELFPAY ==
[2022-01-08] VITALS (7 sets, daily range): BP systolic 131–157; BP diastolic 75–101; PULSE 88–103; RESP 14–25; TEMP 35.6–36.7; O2SAT 97–100; BMI 20.6
--- NOTE | 2022-01-08 08:34 | EX.ED.DYSGE1 ---
HPI History of Present Illness Chief Complaint: Weakness Detail of Chief Complaint: Generalized weakness, loss of appetite, frequency, nocturia and weight loss Informant: patient and spouse/S.O. Onset/Context/Timing Onset: Days Context: Sudden Onset Timing: Continuous and Waxes and wanes Quality: Elevated blood sugar as high as 500 Location: Endocrine Current Severity: Moderate Maximum Severity: Moderate Worsened by: Cortisol intra-articular injection and burst of prednisone Relieved by: Nothing Associated Symptoms Associated Symptoms: No energy, nausea, polyuria, nocturia, polydipsia and insomnia Narrative Narrative: Patient is a 71-year-old male who was recently admitted for hyperglycemia. He had a cortisol injection left shoulder approximately 2 weeks ago. He and his report difficulty control his blood sugar since the injection. He was seen at urgent care and placed on burst of prednisone for bronchitis/bad cough. His blood sugars became more elevated. He was admitted last week for hyperglycemia. He reports history of pneumonia with last admission. Review of chest x-ray revealed no pneumonia at the time of admission. Patient states he has no energy. He believes he is lost approximately 10 pounds in the last 2 weeks. He does report polydipsia, polyuria and nocturia. He is also had insomnia. He has no appetite. He reports no energy. states he is not as active is normal. He denies fever, chills night sweats. Denies headache. He had intermittent blurred vision. He denies double vision or loss of vision. [place] ringing his ears or decreased hearing. Denies rhinorrhea, congestion postnasal drainage. No sore throat. He denies cough or shortness of breath. He denies abdominal pain. He denies diarrhea. He denies dysuria or hematuria. He denies rash. Prior similar symptoms: Yes Recent Illness/Hospitalization: No PFSH [facility] Medical History Atherosclerotic heart disease of [place] coronary artery without angina pectoris Bilateral carotid artery stenosis BPH (benign prostatic hyperplasia) Cardiomyopathy, ischemic CKD (chronic kidney disease) stage 3, GFR 30-59 ml/min DDD (degenerative disc disease) Essential hypertension Hemorrhagic cerebrovascular accident (CVA) History of left heart catheterization (LHC) Multiple lacunar infarcts Presence of stent in coronary artery (~08/28/01) Pure hypercholesterolemia Right carotid artery occlusion Type 2 diabetes mellitus Home Medications ascorbic acid (vitamin C) 500 mg tablet 500 mg PO DAILY 07/05/21 [History Last Taken Unknown] aspirin 81 mg tablet,delayed release 81 mg PO DAILY 07/05/21 [History Last Taken Unknown] cyanocobalamin (vitamin B-12) 5,000 mcg disintegrating tablet 1,000 mcg PO DAILY 07/05/21 [History Last Taken Unknown] glimepiride 4 mg tablet 4 mg PO BID tab 07/05/21 [History Last Taken Unknown] loratadine 10 mg tablet 10 mg PO DAILY 07/05/21 [History Last Taken Unknown] metformin 500 mg tablet 1,000 mg PO BID tab 07/05/21 [History Last Taken Unknown] amlodipine 5 mg tablet 5 mg PO DAILY #90 tab 07/20/21 [Rx Last Taken Unknown] atorvastatin 80 mg tablet 80 mg PO QHS #90 tab 07/20/21 [Rx Last Taken Unknown] cholecalciferol (vitamin D3) 25 mcg (1,000 unit) tablet 25 mcg PO BID tab 07/20/21 [History Last Taken Unknown] clopidogrel 75 mg tablet 75 mg PO DAILY #1 tab 07/20/21 [Rx Last Taken Unknown] lisinopril 20 mg tablet 20 mg PO DAILY #90 tab 07/20/21 [Rx Last Taken Unknown] magnesium oxide 250 mg PO BID 07/20/21 [History Last Taken Unknown] carvedilol 3.125 mg tablet 3.125 mg PO BID #180 tab 08/02/21 [Rx Last Taken Unknown] pen needle, diabetic 32 gauge x 1/6 #100 ea 09/22/21 [Rx Last Taken Unknown] insulin glargine U-300 conc 300 unit/mL (1.5 mL) subcutaneous pen 36 unit SUBCUT DAILY #4.5 ml 09/25/21 [Rx Last Taken Unknown] albuterol sulfate 2 puff INHALATION Q6H PRN 01/02/22 [History Last Taken Unknown] benzonatate 100 mg PO TID PRN 01/02/22 [History Last Taken Unknown] Allergy/AdvReac Type Severity Reaction Status Date / Time No Known Allergies Allergy Verified 01/08/22 08:19 Family History Mother CAD (coronary artery disease) Diabetes Myocardial infarction, Onset Age: 48 Father Diabetes Breast cancer Brother Diabetes Brother Cancer Prostate Surgical History History of arthroscopic surgery of shoulder History of laminectomy (~2007) Presence of coronary angioplasty implant and graft (~08/28/01) Social History (Updated 01/08/22 @ 08:[address] Shalom Colbert MD) household members: spouse Smoking Status: Former smoker alcohol intake: current details: occasional substance use type: does not use caffeine: Yes Type: tea Number of servings: 1 what type of physical activity do you participate in: none ROS ROS ED Constitutional Constitutional ED: Reports weight loss; Denies chills, fever(s), subjective or sweats Eyes Eyes: Reports blurry vision bilateral; Denies change in vision or diplopia ENT ENT ED: Denies ear pain, rhinorrhea or sore throat Cardiovascular Cardiovascular: Denies chest pain, orthopnea, palpitations or racing heartbeat Respiratory/Chest Respiratory/Chest: Denies cough, dyspnea, dyspnea on exertion or orthopnea Gastrointestinal Gastrointestinal: Reports nausea; Denies abdominal pain, constipation, diarrhea, melena or vomiting Genitourinary Genitourinary ED: Denies dysuria, hematuria or urinary frequency Musculoskeletal Musculoskeletal: Denies arthralgias or myalgias Integumentary Denies rash Neurologic Neurologic: Reports weakness; Denies headache(s) or paresthesias Endocrine Endocrinology: Reports polydipsia and polyuria; Denies heat intolerance or polyphagia EXAM Physical Exam Const Vital Signs: 01/08/22 08:19 01/08/22 08:34 01/08/22 09:00 Temperature 96.0 F L 96.0 F L Temperature Source Temporal Temporal Pulse Rate 103 H 95 88 Respiratory Rate 20 H 18 17 Respiratory Effort Normal Non-Labored Respiratory Pattern Normal Blood Pressure 137/101 H 137/90 H 152/77 H Blood Pressure Mean 113 105 102 Pulse Ox 100 100 98 Oxygen Delivery Method Room Air Room Air Room Air 01/08/22 10:00 01/08/22 11:00 Temperature Temperature Source Pulse Rate 89 89 Respiratory Rate 25 H 15 Respiratory Effort Respiratory Pattern Blood Pressure 157/75 H 149/86 H Blood Pressure Mean 102 107 Pulse Ox 99 97 Oxygen Delivery Method Room Air Room Air Positive well nourished and well developed General Appearance ED: well developed, NAD, pallor and other Patient appears pale and ill. He does not appear toxic. HEENT Reports dry mucous membranes HEENT Narrative: Uvula midline. There is no erythema exudate the posterior pharynx. There is no angioedema. Nares patent. There is no drainage. Negative for trauma or tenderness Mouth ED: Yes dry mucous membranes Mouth: dry mucous membranes Eyes PERRL and EOMs intact bilaterally General Eye ED: Negative for pale conjunctiva or scleral icterus Neck no lymphadenopathy, supple and no JVD Chest Wall inspection of chest normal and palpation of chest normal Resp normal respiratory effort and clear to auscultation bilaterally Cardio regular rhythm, S1 normal heart sound, S2 normal heart sound and no murmurs Rate: tachycardic GI normal to inspection, nondistended, normoactive bowel sounds, non-tender and non-distended Palpation: soft Back/Spine no CVA tenderness Thoracic Spine / Upper Back: Negative for thoracic spinal tenderness or paraspinal muscle tenderness Extremity normal to inspection General Extremety ED: Negative for edema General Extremity: Negative for edema Neuro oriented x3 and CN's II-XII intact bilaterally Sensorium / Orientation: alert Psych Attitude: No agitated Mood & Affect: depressed; Negative for anxious or tearful Skin no rashes or lesions noted, no wounds and No skin turgor normal General Skin Exam: pallor; Negative for elasticity normal or jaundice MDM MDM MDM Narrative Medical decision making narrative: Patient presents with symptoms concern with hyperglycemia. Will obtain BG T. Clinically he appears dehydrated and will receive 1 L of normal saline wide open. CBC was obtained to rule out anemia. Electrolyte panel to assess renal function, CO2/anion gap and his electrolytes as well as glucose. If there is any evidence of hypokalemia or hyperkalemia will obtain EKG. Potassium is elevated 5.3. Will obtain EKG. Blood sugar is 404. CO2 and anion gap are normal. 8 units of insulin was ordered to be administered subcu. Patient was reassessed at 1210. He looks much better. He states he feels much better. Blood sugar is 273. He was instructed to increase his insulin to 40 units from 36 units. He is scheduled to see his doctor on Saturday. Lab Data Labs: Laboratory Results - last 24 hr 01/08/22 01/08/22 01/08/22 09:00 09:00 09:02 WBC 13.5 H RBC 5.30 Hgb 16.5 Hct 47.7 MCV 90.0 MCH 31.1 MCHC 34.6 RDW Std Deviation 41.6 RDW Coeff of Rich 12.5 Plt Count 329 MPV 10.7 Immature Gran % (Auto) 0.700 Neut % (Auto) 76.7 H Lymph % (Auto) 15.8 L [place] % (Auto) 6.2 Eos % (Auto) 0.5 Baso % (Auto) 0.1 Absolute Neuts (auto) 10.3 H Absolute Lymphs (auto) 2.13 Nucleated RBC % 0 Sodium 133 L Potassium 5.3 H Chloride 101 Carbon Dioxide 22.0 Anion Gap 10 BUN 56 H Creatinine 1.46 H Estim Creat Clear Calc 45.23 Est GFR (MDRD) Af Amer 61 Est GFR (MDRD) Non-Af 51 L BUN/Creatinine Ratio 38.4 H Glucose 404 H Calcium 10.6 H Urine Color Urine Clarity Urine pH Ur Specific [place] Urine Protein Urine Glucose (UA) Urine Ketones Urine Occult Blood Urine Nitrite Urine Bilirubin Urine Urobilinogen Ur Leukocyte Esterase Urine RBC Urine WBC Ur Squamous Epith Cells Urine Bacteria Urine Mucus POC Glucose 386 H 01/08/22 01/08/22 10:08 11:52 WBC RBC Hgb Hct MCV MCH MCHC RDW Std Deviation RDW Coeff of Rich Plt Count MPV Immature Gran % (Auto) Neut % (Auto) Lymph % (Auto) [place] % (Auto) Eos % (Auto) Baso % (Auto) Absolute Neuts (auto) Absolute Lymphs (auto) Nucleated RBC % Sodium Potassium Chloride Carbon Dioxide Anion Gap BUN Creatinine Estim Creat Clear Calc Est GFR (MDRD) Af Amer Est GFR (MDRD) Non-Af BUN/Creatinine Ratio Glucose Calcium Urine Color Yellow Urine Clarity Clear Urine pH 6.0 Ur Specific [place] 1.015 Urine Protein 15 H Urine Glucose (UA) 1000 H Urine Ketones Negative Urine Occult Blood Negative Urine Nitrite Negative Urine Bilirubin Negative Urine Urobilinogen Normal Ur Leukocyte Esterase Negative Urine RBC 0 SEEN Urine WBC 0 SEEN Ur Squamous Epith Cells 0 SEEN Urine Bacteria 0 SEEN Urine Mucus 0 SEEN POC Glucose 273 H EKG Initial EKG: Attestation: I personally reviewed and interpreted this EKG as follows: Interpretation: Sinus Rhythm (Rate is 90 with an occasional premature ventricular beat. RI interval 242 ms. Castration 88 ms. QT duration 3 and 50 ms. [place] is normal. Other than the premature beat the EKG is normal. There are no changes to raise concern for hyperkalemia.) Discharge Plan Triage Chief Complaint: Weakness ED Provider: Shalom Colbert Dx/Rx/DC Orders Clinical Impression: Hyperglycemia due to type 2 diabetes mellitus, Essential hypertension, CKD (chronic kidney disease) stage 3, GFR 30-59 ml/min, Weakness, Acute dehydration, Hyperkalemia Instructions: ED Diabetic Hyperglycemia Prescriptions: No Action magnesium oxide 250 mg magnesium tablet 250 mg PO BID RF: 0 clopidogrel [Plavix] 75 mg tablet 75 mg PO DAILY Qty: 1 RF: 0 amlodipine 5 mg tablet 5 mg PO DAILY Qty: 90 RF: 4 atorvastatin 80 mg tablet 80 mg PO QHS Qty: 90 RF: 4 lisinopril 20 mg tablet 20 mg PO DAILY Qty: 90 RF: 4 glimepiride 4 mg tablet 4 mg PO BID RF: 0 metformin 500 mg tablet 1,000 mg PO BID RF: 0 loratadine 10 mg tablet 10 mg PO DAILY RF: 0 cyanocobalamin (vitamin B-12) 5,000 mcg tablet,disintegrating 1,000 mcg PO DAILY RF: 0 ascorbic acid (vitamin C) 500 mg tablet 500 mg PO DAILY RF: 0 aspirin [Adult Low Dose Aspirin] 81 mg tablet,delayed release (DR/EC) 81 mg PO DAILY RF: 0 cholecalciferol (vitamin D3) 25 mcg (1,000 unit) tablet 25 mcg PO BID RF: 0 benzonatate 100 mg Capsule 100 mg PO TID PRN (Reason: Cough) RF: 0 albuterol sulfate 90 mcg/actuation Hfa Aerosol Inhaler 2 puff INHALATION Q6H PRN (Reason: Shortness Of Breath) RF: 0 carvedilol 3.125 mg tablet 3.125 mg PO BID Qty: 180 RF: 4 (DME) NovoFine Plus 32 gauge x 1/6 needle See Rx Instructions .ROUTE .MEDSUPPLY Qty: 100 RF: 4 Toujeo SoloStar U-300 Insulin 300 unit/mL (1.5 mL) insulin pen 36 unit subcut DAILY Qty: 4.5 RF: 5 Primary Care Provider: Savanna Sinclair Referrals: Savanna Sinclair MD [Primary Care Provider] - Keep [facility] appointment (Patient's morning dose of insulin was increased from 36-40. He reports problems regulating his blood sugar over the past 2 weeks.) Activity Restrictions/Additional Instructions: Increase your insulin dose from 36 units in the morning to 40 units. Disposition Disposition: Home, Self Care
[2022-01-08] MEDS: 0.9% Normal Saline 1,000 ML 1000 ML IV (09:00)
[2022-01-08 09:06] LABS: Bedside Glucose 386 mg/dL (74-106)
[2022-01-08 09:09] LABS: Absolute Lymphocyte Count 2.13 X10^3/uL (0.83-4.51); Absolute Neutrophil Count 10.3 X10^3/uL (2.0-7.7); Basophil# 0.02 X10^3/uL; Basophil% 0.1 % (0-1); Eosinophil# 0.07 X10^3/uL; Eosinophils% 0.5 % (0-5); Hematocrit 47.7 % (40-54); Hemoglobin 16.5 g/dL (13.0-16.5); Lymphocyte # 2.13 X10^3/ul (0.83-4.51); Lymphocyte % 15.8 % (19-41); Mean Corp Hgb Conc 34.6 g/dL (32-36); Mean Corpuscular Hgb 31.1 pg (27.0-32.0); Mean Platelet Vol. 10.7 fl (6.2-12.0); Monocyte# 0.83 X10^3/uL; Monocyte% 6.2 % (0-10); NRBC Flagged by Analyzer 0 % (0-5); Neutrophil # 10.31 X10^3/uL (2.7-7.7); Neutrophil % 76.7 % (47-70); Platelet Count 329 K/mm3 (150-450); RBC Distribution Width CV 12.5 % (11.6-14.6); RBC Distribution Width SD 41.6 fl (35.1-43.9); White Blood Count 13.5 K/mm3 (4.4-11.0)
[2022-01-08 09:27] LABS: Anion Gap 10 (5-15); BUN 56 mg/dL (7-18); BUN/Creat Ratio 38.4 RATIO (10-20); Calcium,Total 10.6 mg/dL (8.5-10.1); Chloride 101 mmol/L (98-107); Creatinine, Serum 1.46 mg/dL (0.70-1.30); EST Glomerular Filtration Rate 51 mL/min (>60); Est Glom Filt Rate - Afr Amer 61 mL/min (>60); Estimated Creatinine Clearance 45.23 ml/min; Glucose 404 mg/dL (74-106); Potassium 5.3 mmol/L (3.5-5.1); Sodium Level 133 mmol/L (136-145)
--- NOTE | 2022-01-08 09:41 | EKG12_ITS ---
Test Reason : WEAKNESS Blood Pressure : / mmHG Vent. Rate : 090 BPM Atrial Rate : 090 BPM P-R Int : 142 ms QRS Dur : 088 ms QT Int : 350 ms P-R-T Axes : 055 017 075 degrees QTc Int : 428 ms Sinus rhythm with occasional Premature ventricular complexes Low voltage QRS (Limb Leads) Inferior SD, age undetermined, cannot be excluded Confirmed by MARISOL LORENZO, HENRY ([id number]), newspaper managing editor JIM EDWARDS ([id number]) on 01/09/2022 8:29:13 AM Referred By: JAYSHREE Confirmed By:HENRY DAMON MD
[2022-01-08 10:16] LABS: Bacteria 0 SEEN /hpf (None Seen); Mucous, Urine 0 SEEN /hpf (<or=2+); Red Blood Cells-Urine 0 SEEN /hpf (0-5); Squamous Epithelial Cells - UA 0 SEEN /hpf (0-5); White Blood Cells 0 SEEN /hpf (0-5)
[2022-01-08 10:24] LABS: Color, Urine Yellow (Yellow); Glucose, Dipstick 1000 mg/dl (Normal); Ketone-Dipstick Negative (Negative); Leukocyte Esterase-Dipstick Negative /ul (Negative); Nitrite-Dipstick Negative (Negative); Occult Blood-Urine Negative /ul (Negative); Protein-Dipstick 15 mg/dl (Negative); Specific Gravity, Urine 1.015 (1.002-1.030); Urine Bilirubin Dipstick Negative (Negative); Urine Clarity Clear (Clear); Urine Urobilinogen Normal (Normal)
[2022-01-08] MEDS: Insulin Lispro 100 UNIT/ML INSULN.PEN 8 UNIT SC (10:52)
[2022-01-08 11:55] LABS: Bedside Glucose 273 mg/dL (74-106)
--- NOTE | 2022-01-10 14:31 | CASEMGMT ---
Addendum entered by Marita Larios 01/10/22 15:04: Non-descript message left on for return call for any questions or concerns. DONNIE MCKEON phone number provided. Addendum entered by Marita Larios 01/10/22 14:34: Correction: ED visit 01/08/22, not 01/10/22 Original Note: DONNIE MCKEON ED visit f/u call: ED visit: 01/10/22 Complaint: weakness Attempted to contact pt for f/u. No answer. Mary Ann CARCAMON RN CM
== END 2022-01-08 12:30 | disposition home or self-care (01) ==
PROVIDERS: Emergency Provider Emergency Medicine; PCP Internal Medicine; Visit Provider Emergency Medicine
DX: E11.65 Type 2 diabetes mellitus with hyperglycemia (principal); E11.22 Type 2 diabetes mellitus with diabetic chronic kidney disease; Z79.4 Long term (current) use of insulin; N18.30 Chronic kidney disease, stage 3 unspecified; I25.5 Ischemic cardiomyopathy; I12.9 Hypertensive chronic kidney disease with stage 1 through stage 4 chronic kidney disease, or unspecified chronic kidney disease; E87.5 Hyperkalemia; E86.0 Dehydration; Z87.891 Personal history of nicotine dependence; I25.10 Atherosclerotic heart disease of native coronary artery without angina pectoris; E78.00 Pure hypercholesterolemia, unspecified; N40.0 Benign prostatic hyperplasia without lower urinary tract symptoms; Z79.899 Other long term (current) drug therapy; Z79.82 Long term (current) use of aspirin; Z79.02 Long term (current) use of antithrombotics/antiplatelets
CPT/HCPCS: 80048; 81001; 82962; 85025; 93005; 99284; J7030; A4216

== ENCOUNTER → 2022-02-09 | Outpatient (CLI) | payer MEDICARE, OTHER, SELFPAY ==
--- NOTE | 2022-02-09 12:56 | CDU_ITS ---
Reason For Study: Stenosis Rt. Velocities/BP Lt. Velocities/BP Prox CCA 60.4/0.0 cm/sec. Prox CCA 76.1/17.6 cm/sec. Mid CCA 48.6/0.0 cm/sec. Mid CCA 106.4/25.3 cm/sec. Dist CCA 28.9/0.0 cm/sec. Dist CCA 123.5/19.4 cm/sec. Prox ECA 227.2/10.7 cm/sec. Prox ICA 138.1/26.7 cm/sec. Rt. Vert. 55.4/12.8 cm/sec. Mid ICA 114.3/35.8 cm/sec. Dist ICA 103.4/39.5 cm/sec. Lt. ICA/CCA = 1.3. Prox ECA 150.9/8.4 cm/sec. Lt. Vert. 69.5/13.0 cm/sec. Right Extracranial There is heterogeneous, irregular atherosclerotic plaque noted in the right common carotid artery. The right internal carotid artery is occluded. There is heterogeneous, irregular atherosclerotic plaque noted in the right external carotid artery. Antegrade flow is noted in the right vertebral artery. Left Extracranial There is heterogeneous, irregular atherosclerotic plaque noted in the left common carotid artery. There is heterogeneous, irregular atherosclerotic plaque noted in the left internal carotid artery. There is heterogeneous, irregular atherosclerotic plaque noted in the left external carotid artery. Antegrade flow is noted in the left vertebral artery. Procedure Carotid Duplex [id number]. Exam performed in department. VL/Carotid Duplex Ultrasound Interpretation Summary Occlusion right internal carotid artery. Greater than 50% stenosis right external carotid artery Irregular calcific plaque with shadowing at the proximal left internal carotid artery with 50 to 69% stenosis. Less than 50% stenosis left external carotid artery Patent and antegrade vertebral arteries bilaterally Ordering Physician: Savanna Sinclair Referring Physician: Savanna Sinclair Performed By: Gabe Rivas RVT
== END | disposition home or self-care (01) ==
LOC: CVS 12:54
PROVIDERS: PCP Internal Medicine; Referring Provider Internal Medicine; Visit Provider Internal Medicine
DX: I65.23 Occlusion and stenosis of bilateral carotid arteries (principal)
CPT/HCPCS: 93880

== ENCOUNTER → 2022-05-16 | Outpatient (CLI) | payer MEDICARE, OTHER, SELFPAY ==
--- NOTE | 2022-05-16 18:00 | STRESSREP_ITS ---
Stress Test Report Date: 05-16-2022 Procedure: Exercise tolerance test/imaging study Indications: Chest pain; CAD; status post DC; ischemic mediated cardiomyopathy; PCI; PAD; hyperlipidemia; hypertension; diabetes mellitus Consent: Per the patient Procedure: The patient exercised on a Odell protocol for 5 minutes and 45 seconds completing Stage I and 2 minutes and 45 seconds of Stage II achieving a peak heart rate of 134 bpm (89% predicted maximal heart rate) with a peak blood pressure 194/70 mmHg and a peak MET capacity of 7 METs. The baseline ECG demonstrated normal sinus rhythm; poor R wave progression. The peak exercise ECG demonstrated somatic/motion artifact with no obvious ECG changes. There were occasional PVCs pretest, occasional PACs and PVCs during exercise, and occasional PACs and PVCs during recovery. The functional capacity was considered fair. There was a little discomfort at peak exercise. The examination was discontinued secondary to dyspnea and leg fatigue. Impression: 1. Technically adequate (percent predicted maximal heart rate greater than 85%) exercise tolerance test 2. Peak exercise ECG with somatic/motion artifact with no obvious ECG change 3. There were occasional PVCs pretest, occasional PACs and PVCs during exercise, and occasional PACs and PVCs during recovery 4. Nuclear images pending Myocardial perfusion imaging study: Technique: The patient was injected with 11.3 mCi of technetium 99m Cardiolite and subsequently rest SPECT Cardiolite nuclear imaging was obtained in the horizontal long, vertical long, and short axis views.The patient exercised on a Odell protocol for 5 minutes and 45 seconds completing Stage I and 2 minutes and 45 seconds of Stage II achieving a peak heart rate of 134 bpm (89% predicted maximal heart rate) with a peak blood pressure 194/70 mmHg and a peak MET capacity of 7 METs. The patient was injected with 33.5 mCi of technetium 99m Cardiolite and subsequently stress SPECT Cardiolite nuclear imaging was obtained in the horizontal long, vertical long, and short axis views. A gated Cardiolite study at peak stress was obtained. Interpretation: Rest and stress SPECT Cardiolite nuclear imaging status post realignment, normalization, and attenuation correction, demonstrates the appearance of relative uniform tracer uptake and myocardial perfusion at rest and status post- rest the notation of diminished myocardial perfusion/tracer uptake in portions of the distal anterior, distal anteroseptal, and anteroapical segments. There is end systolic thickening and brightening. The gated Cardiolite study demonstrates diminished myocardial thickening and inward wall motion in the aforementioned areas. The reported LVEF is 52%. Impression: 1. Rest and stress SPECT Cardiolite nuclear imaging demonstrate myocardial perfusion changes concerning for an area of stress-induced myocardial ischemia in portions of the distal anterior, distal anteroseptal, and anteroapical segments. 2. The gated Cardiolite study reports an LVEF of 52%. This note was generated with [employer]on Poweration software. It may contain incorrect words, spelling, and punctuation that were not noted in checking the note before signing.
== END | disposition home or self-care (01) ==
LOC: CVS 06:24
PROVIDERS: PCP Internal Medicine; Referring Provider Internal Medicine Cardiovascular Disease; Visit Provider Internal Medicine Cardiovascular Disease
DX: E11.51 Type 2 diabetes mellitus with diabetic peripheral angiopathy without gangrene (principal); I25.5 Ischemic cardiomyopathy; I10 Essential (primary) hypertension; E78.5 Hyperlipidemia, unspecified; I25.10 Atherosclerotic heart disease of native coronary artery without angina pectoris; Z95.5 Presence of coronary angioplasty implant and graft
CPT/HCPCS: 78452; 93017; A9500; A4216

== ENCOUNTER 2022-06-01 06:29 | Day surgery (SDC) | payer MEDICARE, OTHER, SELFPAY ==
--- NOTE | 2022-05-24 09:08 | RAD_ITS ---
STUDY: X-RAY CHEST REASON FOR EXAM: Male, 71 years old. Dyspnea on Exertion TECHNIQUE: PA and lateral views of the chest. COMPARISON: Comparison is made with prior study dated 01/02/2022. FINDINGS: The lungs are clear and expanded. There is no demonstrated pleural abnormality. Normal size heart. Normal mediastinum and yumiko. Normal visualized pulmonary arteries. Normal visualized aortic arch and descending thoracic aorta. Normal visualized thoracic spine. Normal visualized ribs, clavicles, and shoulders. There is no demonstrated abnormality of the visualized soft tissue structures of the upper abdomen. RAD/Chest PA and Lateral IMPRESSION: Normal x-ray examination of the chest. Electronically Signed: Perico Allen MD at 9:38 EDT ,
[2022-05-24 10:09] LABS: Hemoglobin 13.4 g/dL (13.0-16.5); Mean Corp Hgb Conc 34.4 g/dL (32-36); Mean Corpuscular Hgb 31.8 pg (27.0-32.0); Mean Corpuscular Volume 92.4 fL (80-94); Mean Platelet Vol. 10.3 fl (6.2-12.0); Platelet Count 251 K/mm3 (150-450); RBC Distribution Width CV 12.2 % (11.6-14.6); RBC Distribution Width SD 41.1 fl (35.1-43.9); Red Blood Count 4.22 M/mm3 (4.6-6.2); White Blood Count 5.6 K/mm3 (4.4-11.0)
[2022-05-24 10:12] LABS: International Normalized Ratio 0.9; Partial Thromboplast Time 25.4 Seconds (24.1-36.2); Prothrombin Time (Protime)PT. 11.7 SECONDS (11.7-14.9)
[2022-05-24 10:44] LABS: Anion Gap 9 (5-15); BUN 50 mg/dL (7-18); BUN/Creat Ratio 25.8 RATIO (10-20); Calcium,Total 9.6 mg/dL (8.5-10.1); Chloride 102 mmol/L (98-107); Creatinine, Serum 1.94 mg/dL (0.70-1.30); EST Glomerular Filtration Rate 36 mL/min (>60); Est Glom Filt Rate - Afr Amer 44 mL/min (>60); Glucose 334 mg/dL (74-106); Potassium 4.8 mmol/L (3.5-5.1); Sodium Level 136 mmol/L (136-145)
--- NOTE | 2022-05-28 17:55 | HP.PCM_ITS ---
History and Physical Date of Admission: 06/01/22 [facility] [address] [place], [place] [address] OFFICE VISIT Date of Service:? 05/04/22 MR#: [id number] Acct: [id number] Name:MARIBELL GLASER Rep #: [id number] : 1950 ?Provider: Dr. David Lui MD Age/Sex:? 71/M Location: [facility] Status: Signed HPI HPI History of Present Illness Details: This is a 71-year-old white male who presents today for outpatient cardiovascular follow-up based upon a history of underlying CAD, NH-remote, ischemic mediated cardiomyopathy, PCI, peripheral arterial occlusive disease with right carotid artery disease/occlusion, CVA, hyperlipidemia, hypertension, and diabetes mellitus. He underwent evaluation and care at the [facility] in August 2001 with concerns of unstable angina pectoris.? He underwent diagnostic cardiac catheterization which per the report stated the LAD had a high-grade complex stenosis.? He subsequently underwent PTCA/stent of the LAD with PTCA of the first diagonal branch.? He underwent repeat invasive valuation at [facility] in 2011 which demonstrated his coronary arteries to be patent and he did not require any repeat invasive/interventional procedures.? There was a comment at that time that the LCx had 50 to 60% stenosis. Since that time he has undergone noninvasive studies which included a stress nuclear imaging study in 2012 which stated he had a predominantly fixed defect in the inferior and apical anterior segments. He had a stress echocardiogram performed in 2018 which demonstrated a report of good functional capacity with an LVEF at baseline of 45 to 50% with inferior and inferolateral hypokinesis but no inducible ischemia.? He did not require repeat cardiac catheterization. He states he did have in 2017 a hemorrhagic CVA.? He had expressive aphasia.? He states he had learned to talk and walk again.? He was noted to have what appeared to be a right carotid artery occlusion.? He was followed noninvasively and medically and did not require any type of intervention/surgery. He did have an ECG in the office during his previous visit.? He was noted to be in sinus rhythm.? There was an inferior NH pattern of indeterminate age which could not be excluded. In February 2021 he had lipid labs performed.? It appears his total cholesterol is 137 with an LDL of 38 and an HDL of 36.? His triglycerides were 317. He did have a transthoracic echocardiogram performed in July 2021.? The results are noted below. At the present time he states his main concern is that he gets short of breath and dyspneic with exertional activity such as going up the stairs.? It does not bother him at rest or at night.? He does not necessarily associate chest discomfort with this.? There has been no report of orthopnea or PND or peripheral pitting edema.? There is been no near-syncope or syncope. He also notes separately from any cardiac concern is that he has been having ongoing neck/postoccipital pain .? He states this seems to occur especially with certain movements of his head and neck.? He notes he was told at one point in time this may be related to arthritis . Intake Vital Signs ? 05/04/2210:06 Height 6 ft Weight: 167 lb BMI 22.6 BP 119/75 Blood Pressure Location Lt brachial Position Sitting Respiration 18 Pulse 86 Pulse Source Monitor Pulse Oximetry (%) 99 Intake Visit Reasons:?Shortness of breath Fuse Spooler Required: No Is patient in pain?: No Allergies No Known Allergies Allergy (Verified 05/04/22 10:32) Medications ascorbic acid (vitamin C) 500 mg tablet 500 mg PO DAILY 07/05/21 [History Confirmed 03/21/22] aspirin 81 mg tablet,delayed release (Adult Low Dose Aspirin) 81 mg PO DAILY 07/05/21 [History Confirmed 05/04/22] cyanocobalamin (vitamin B-12) 5,000 mcg disintegrating tablet 1,000 mcg PO DAILY Check with primary doctor 07/05/21 [History Confirmed 05/04/22] loratadine 10 mg tablet 10 mg PO DAILY 07/05/21 [History Confirmed 05/04/22] metformin 500 mg tablet 1,000 mg PO BID 07/05/21 [History Confirmed 05/04/22] amlodipine 5 mg tablet 5 mg PO DAILY #90 tabs 07/20/21 [Rx Confirmed 05/04/22] atorvastatin 80 mg tablet 80 mg PO QHS #90 tabs 07/20/21 [Rx Confirmed 05/04/22] cholecalciferol (vitamin D3) 25 mcg (1,000 unit) tablet 25 mcg PO BID 07/20/21 [History Confirmed 05/04/22] lisinopril 20 mg tablet 20 mg PO DAILY #90 tabs 07/20/21 [Rx Confirmed 05/04/22] magnesium oxide 250 mg PO BID 07/20/21 [History Confirmed 05/04/22] pen needle, diabetic 32 gauge x 1/6 (NovoFine Plus) #100 ea 09/22/21 [Rx Confirmed 03/21/22] blood sugar diagnostic (Anna Lozabaiuch Verio test strips) #100 ea 02/14/22 [Rx Confirmed 03/21/22] carvedilol 3.125 mg tablet 3.125 mg PO BID #180 tabs 03/12/22 [Rx Confirmed 05/04/22] clopidogrel 75 mg tablet (Plavix) 75 mg PO DAILY #90 tabs 03/21/22 [Rx Confirmed 05/04/22] insulin glargine U-300 conc 300 unit/mL (1.5 mL) subcutaneous pen (Toujeo SoloStar U-300 Insulin) 36 unit (0.12 mL) subcut DAILY #4.5 mL 04/16/22 [Rx Confirmed 05/04/22] glimepiride 4 mg tablet 4 mg PO BID #90 tabs 04/30/22 [Rx Confirmed 05/04/22] PFSH Medical History? Atherosclerotic heart disease of [place] coronary artery without angina pectoris Bilateral carotid artery stenosis BPH (benign prostatic hyperplasia) Cardiomyopathy, ischemic CKD (chronic kidney disease) stage 3, GFR 30-59 ml/min DDD (degenerative disc disease) Essential hypertension Hemorrhagic cerebrovascular accident (CVA) History of left heart catheterization (LHC) Multiple lacunar infarcts Presence of stent in coronary artery (~08/28/01) Pure hypercholesterolemia Right carotid artery occlusion Type 2 diabetes mellitus Surgical History? History of arthroscopic surgery of shoulder History of laminectomy (~2007) Presence of coronary angioplasty implant and graft (~08/28/01) Family History? Mother?? CAD (coronary artery disease) Diabetes Myocardial infarction,? Onset Age: 48Father?? Diabetes Breast cancerBrother DiabetesBrother Cancer ?? ? Prostate Social History? household members:? spouse Smoking Status:? Former smoker alcohol intake:? current details:? occasional substance use type:? does not use caffeine:? Yes Type: tea Number of servings: 1 what type of physical activity do you participate in:? none ROS Const Const: Negative for fatigue, weakness, frequent falls, excessive sweating, weight gain or weight loss Eyes Eyes: Negative for transient loss of vision, blurry vision or change in vision ENT ENT: Negative for dizziness or balance problems Cardio Chest Pain: No Palpitations: No Edema: None Muscle aches with walking: None Resp Respiratory: Positive for SOB with activity; Negative for SOB at rest GI GI: Negative vomiting or vomiting blood/hematemesis : Negative for hematuria Musc Musc: Positive for muscle aches/ myalgia (muscle cramping at night to bilat LE); Negative for muscle weakness, joint pain or balance problems Skin Skin: Negative non-healing lesions or rash Neuro Neuro: Negative for dizziness, lightheadedness, orthostatic symptoms, frequent falls, weakness or blurry vision Porter Hematologic/Lymphatic: Negative for easy bleeding Endo Endo: Negative for fatigue or excessive sweating Psych Psych: Negative for anxiety or depression Allergy Allergy/Immunology: Negative for hives and Negative for rash Cardiology Exam Const Appearance: cooperative, healthy appearing, comfortable, no acute distress, well developed and well groomed Nutritional Appearance: average body habitus Orientation: alert, awake and oriented x3 Head Head: normal to inspection, normocephalic and atraumatic Ears: hearing grossly normal bilaterally Nose: external nose normal Face and Sinus: face symmetric Eyes Eyelids: eyelids normal Conjunctivae: conjunctivae normal Pupils: PERRL EOM: EOM intact bilaterally Neck Neck: normal visual inspection and full ROM Carotids: normal carotid upstroke Chest Chest inspection: normal inspection of the chest, symmetric chest movement and normal respiratory effort Auscultation: Bilateral: Clear to Auscultation Cardio Rate: regular rate Rhythm: regular rhythm Heart sounds: S1 normal and S2 normal GI GI: normal to inspection, soft and bowel sounds present Neuro General: patient alert, patient awake, patient oriented x3 and moves all extremities Skin Skin: no rashes or lesions noted Extremities Pulses: Normal: Right Radial Pulse and Left Radial Pulse Lower Extremity Edema: None: Bilateral Psych Psychological: normal affect Supplemental Info Supplemental Information Transthoracic echocardiogram: 08-01-2021 Interpretation Summary The study was technically difficult. Contrast injection was performed. ? Segmental dysfunction with preserved ejection fraction (see wall motion). The estimated ejection fraction is 55 %. Sigmoid septum. Trivial mitral valve insufficiency. Trivial tricuspid valve insufficiency. Unable to estimate RV systolic pressure/pulmonary artery pressure due to technically difficult study. No evidence for diastolic dysfunction. Carotid artery duplex study: 02/09/2022 Interpretation Summary Occlusion right internal carotid artery. Greater than 50% stenosis right external carotid artery Irregular calcific plaque with shadowing at the proximal left internal carotid artery with 50 to 69% stenosis. Less than 50% stenosis left external carotid artery Patent and antegrade vertebral arteries bilaterally Labs: ?? ? No Data to Display Diagnostics: ?? ? Electrocardiogram ? Echocardiogram ? Chest X-Ray ? Pulmonary: ?? ? No Data to Display Assessment and Plan Assessment and Plan (1) Shortness of breath: ?Plan: He does have shortness of breath and dyspnea with exertion which may be an angina pectoris equivalent. From a cardiac standpoint he will be asked to have an exercise tolerance test/imaging study to reassess his coronary physiology.? Depending upon the studies he may need reevaluation in the cardiac catheterization laboratory. (2) Atherosclerotic heart disease of [place] coronary artery without angina pectoris: ?Status:?Acute ?Plan: Again his shortness of breath/dyspnea on exertion may be an angina pectoris equivalent. He will continue his current medical management. He will proceed with noninvasive evaluation at this time. (3) Presence of stent in coronary artery: ?Status:?Acute ?Comment: PTCA/stent to prox LAD and PTCAof the 08/28/2001 ?Plan: His noninvasive and invasive studies are noted. Based upon his CAD/PCI status and his symptoms he will undergo repeat noninvasive evaluation. As noted above this may lead to additional invasive evaluation over time. (4) Cardiomyopathy, ischemic: ?Status:?Acute ?Plan: He does have an ischemic mediated cardiomyopathy. His most recent transthoracic echocardiogram is as noted above. He will continue his noninvasive valuation as noted. (5) Pure hypercholesterolemia: ?Status:?Acute ?Plan: He will continue lipid-lowering therapy. He believes his PCP is planning future upcoming lipid labs. (6) Essential hypertension: ?Status:?Acute ?Plan: His blood pressure appears to be reasonably well controlled at this time. He will continue medical management. ? ? ? Orders: Orders Nuclear Stress Test - Treadmil Today E78.00 - Pure hypercholesterolemia, unspecified, I10 - Essential (primary) hypertension, I25.10 - Atherosclerotic h eart disease of [place] coronary artery without angina pectoris, I25.5 - Ischemic cardiomyopathy, Z95.5 - Presence of coronary angioplasty implant and graft ? Plan Details Additional Comments: He was asked to discuss with his primary care physician his neck/postoccipital discomforts with movement as to whether or not this may be a musculoskeletal/n eurologic related issue requiring additional evaluation and care from a noncardiovascular standpoint. Thank you for allowing me to participate in the care of your patient.? Please don't hesitate to call if any issues arise. This note was generated using a voice recognition system and there may be incorrect words, spelling or punctuation that were not noted when reviewing the office note prior to saving. Follow Up: ? ? 6 Months (with PFM ) COVID (Procedure Consent) Procedure Criteria Procedure Criteria: Yes Elective The surgeon/proceduralist and patient have discussed in detail the risk of exposure to and/or potential harm posed by the COVID-19 virus with having a surgery/procedure at this time versus the risk of? delaying the surgery/procedure. It is not possible to know either the risk of delaying the surgery or procedure or chance of getting an infection with perfect accuracy, but a joint decision was made between the patient and the surgeon/proceduralist ?to proceed at this time with the scheduled surgery/procedure as indicated on the consent form. Coding Level of Care Code Off vis,est,level 4 Diagnoses Shortness of breath? R06.02 Atherosclerotic heart disease of [place] coronary artery without angina pectoris? I25.10 Presence of stent in coronary artery? Z95.5 Cardiomyopathy, ischemic? I25.5 Pure hypercholesterolemia? E78.00 Essential hypertension? I10 Coding Level of Care Code Off vis,est,level 4 Diagnoses Shortness of breath? R06.02 Atherosclerotic heart disease of [place] coronary artery without angina pectoris? I25.10 Presence of stent in coronary artery? Z95.5 Cardiomyopathy, ischemic? I25.5 Pure hypercholesterolemia? E78.00 Essential hypertension? I10 05/04/22 1109 <Electronically signed by David Lui MD> Date David Lui MD Cosigner Signature: Date (if applicable) CC:? Dr. Savanna Sinclair MD ~ Assessment & Plan Addt'l Comments Addendum: The patient underwent a stress nuclear imaging study on 05-16-2022. The results are noted below. Stress Test Report Date: 05-16-2022 Procedure: Exercise tolerance test/imaging study Indications: Chest pain; CAD; status post NH; ischemic mediated cardiomyopathy; PCI; PAD; hyperlipidemia; hypertension; diabetes mellitus Consent: Per the patient Procedure: The patient exercised on a Odell protocol for 5 minutes and 45 seconds completing Stage I and 2 minutes and 45 seconds of Stage II achieving a peak heart rate of 134 bpm (89% predicted maximal heart rate) with a peak blood pressure 194/70 mmHg and a peak MET capacity of 7 METs. The baseline ECG demonstrated normal sinus rhythm; poor R wave progression.? The peak exercise ECG demonstrated somatic/motion artifact with no obvious ECG changes. There were occasional PVCs pretest, occasional PACs and PVCs during exercise, and occasional PACs and PVCs during recovery.? The functional capacity was considered fair. There was a little discomfort at peak exercise. The examination was discontinued secondary to dyspnea and leg fatigue. Impression: 1.? Technically adequate (percent predicted maximal heart rate greater than 85%) exercise tolerance test 2.? Peak exercise ECG with somatic/motion artifact with no obvious ECG change 3.? There were occasional PVCs pretest, occasional PACs and PVCs during exercise, and occasional PACs and PVCs during recovery 4.? Nuclear images pending Myocardial perfusion imaging study: Technique: The patient was injected with 11.3 mCi of technetium 99m Cardiolite and subsequently rest SPECT Cardiolite nuclear imaging was obtained in the horizontal long, vertical long, and short axis views.The patient exercised on a Odell protocol for 5 minutes and 45 seconds completing Stage I and 2 minutes and 45 seconds of Stage II achieving a peak heart rate of 134 bpm (89% predicted maximal heart rate) with a peak blood pressure 194/70 mmHg and a peak MET capacity of 7 METs.? The patient was injected with 33.5 mCi of technetium 99m Cardiolite and subsequently stress SPECT Cardiolite nuclear imaging was obtained in the horizontal long, vertical long, and short axis views.? A gated Cardiolite study at peak stress was obtained. Interpretation: Rest and stress SPECT Cardiolite nuclear imaging status post realignment, normalization, and attenuation correction, demonstrates the appearance of relative uniform tracer uptake and myocardial perfusion at rest and status post- rest the notation of diminished myocardial perfusion/tracer uptake in portions of the distal anterior, distal anteroseptal, and anteroapical segments.? There is end systolic thickening and brightening.? The gated Cardiolite study demonstrates diminished myocardial thickening and inward wall motion in the aforementioned areas.? The reported LVEF is 52%. Impression: 1.? Rest and stress SPECT Cardiolite nuclear imaging demonstrate myocardial perfusion changes concerning for an area of stress-induced myocardial ischemia in portions of the distal anterior, distal anteroseptal, and anteroapical segments. 2.? The gated Cardiolite study reports an LVEF of 52%. Based upon the patient's history, clinical course, and the aforementioned objective findings, it is recommended the patient be considered for further evaluation with diagnostic cardiac catheterization. The procedure and risk were discussed. The patient grants consent. I have re-examined the patient. There are no clinical changes since date of ex am. This note was generated using a voice recognition system and there may be incorrect words, spelling or punctuation that were not noted when reviewing the office note prior to saving.
[2022-05-31 08:01] VITALS: BMI 22.6
--- NOTE | 2022-06-01 09:59 | CL.D_ITS ---
Patient Name: MARIBELL LAINEZ Study Date: 06/01/2022 Performing: David Lui MD Ht: 72 inches 182.88 cm : 1950 Wt: 167 lbs 75.75 kg Age: 71 Gender: male BSA: 1.97 PROCEDURE(S) PERFORMED [id number])[facility] [place] [facility] INDICATIONS Indications: Suspected CAD Heart Failure: None Stress/Imaging Date: 05/16/2022tress Test with SPECT MPI: Positive Intermediate Risk Angina Classification Anginal Classification w/in 2 Weeks: Anginal Equivalent Dyspnea CAD Presentations: Other: dyspnea on exertion - angina pectoris equivalent CONCLUSIONS Elevated Left Ventricular End Diastolic Pressure [place] Multivessel CAD RECOMMENDATIONS Risk factor modification Medical therapy Case discussed / reviewed with Dr. Donovan of Interventional Cardiology DESCRIPTION OF PROCEDURE The patient arrived to the procedure lab. The risks and benefits of the procedure as well as a full description of our services here and current unavailability of surgical backup were fully explained to the patient and/or their significant other prior to the catheterization. The Timeout was completed, verifying the correct patient and procedure. The patient's procedural site was prepped and draped in the usual fashion. Local anesthetic was given subcutaneously to right radial region with Lidocaine 2%. Using a modified Seldinger technique, arterial access was obtained via the right radial artery, a 6Fr sheath was inserted. Left Coronary Artery selective angiography was performed in multiple views using a 5 Fr. 4.0 [place] catheter. Right Coronary Artery selective angiography was then performed in multiple views using a 5 Fr. 4.0 [place] catheter. LV to AO pullback pressures were then recorded.Sheath Flushed. The arterial sheath was pulled and a TR Band was applied for hemostasis CORONARY ANGIOGRAPHY DOMINANCE: Right Dominant LEFT HEART ASSESSMENT Left Ventricular Ejection Fraction: Not assessed Elevated Left Ventricular End Diastolic Pressure LVEDP: 22 mmHg LEFT MAIN: Mild calcification, Mild luminal irregularities LEFT ANTERIOR DESCENDING ARTERY: PROX LAD: Moderate calcification, Previously placed stent is patent with mild luminal irregularities and 25% instent restenosis MID LAD: Moderate calcification, Mild luminal irregularities DISTAL LAD: Mild luminal irregularities DIAGONAL 1: Proximal - 50 % Stenosis CIRCUMFLEX ARTERY: PROX CIRC: Moderate calcification, is occluded MID CIRC: to distal: filling late and partially from left to left and right to left collateral flow RIGHT CORONARY ARTERY: Mild luminal irregularities COMPLICATIONS No Complications PROCEDURE MEDICATIONS Versed 1 mg IV Fentanyl 50 mcg IV Oxygen: 2 L/min via nasal cannula Heparin given IA 06/01/2022 09:01:55 Verapamil 2.5mg, Ntg 100mcgs, 3000 units of Heparin given IA 06/01/2022 09:01:55 IV Fluids: .9 NaCl IV started @ 100 ml/hr 06/01/2022 07:00:18 SUMMARY OF HEMODYNAMIC DATA Time AIR REST ECG 06:57:36 AO 141/71 (102) SA 09:03:16 LV 140/-4, 27 09:11:26 LV 138/-4, 22 09:11:32 LVp 135/-6, 19 09:11:40 AOp 137/63 (94) 09:11:45 Signed By David Lui MD On 06/01/2022 09:58:30 David Lui MD
== END 2022-06-01 11:20 | disposition home or self-care (01) ==
LOC: CLSP 06:30
PROVIDERS: PCP Internal Medicine; Referring Provider Internal Medicine Cardiovascular Disease; Visit Provider Internal Medicine Cardiovascular Disease
DX: I25.118 Atherosclerotic heart disease of native coronary artery with other forms of angina pectoris (principal); E11.51 Type 2 diabetes mellitus with diabetic peripheral angiopathy without gangrene; E11.22 Type 2 diabetes mellitus with diabetic chronic kidney disease; Z79.4 Long term (current) use of insulin; N18.30 Chronic kidney disease, stage 3 unspecified; R06.09 Other forms of dyspnea; I12.9 Hypertensive chronic kidney disease with stage 1 through stage 4 chronic kidney disease, or unspecified chronic kidney disease; I25.5 Ischemic cardiomyopathy; Z95.5 Presence of coronary angioplasty implant and graft; Z79.82 Long term (current) use of aspirin; Z79.84 Long term (current) use of oral hypoglycemic drugs; Z79.899 Other long term (current) drug therapy; Z87.891 Personal history of nicotine dependence; Z86.73 Personal history of transient ischemic attack (TIA), and cerebral infarction without residual deficits
CPT/HCPCS: 36415; 71046; 80048; 85027; 85610; 85730; 93454; 99152; 99153; J7040; Q9967; C1769; C1894

== ENCOUNTER → 2022-06-04 | Outpatient (CLI) | payer MEDICARE, OTHER, SELFPAY ==
[2022-06-04 12:51] LABS: Anion Gap 8 (5-15); BUN 30 mg/dL (7-18); BUN/Creat Ratio 21.4 RATIO (10-20); Calcium,Total 9.3 mg/dL (8.5-10.1); Chloride 102 mmol/L (98-107); EST Glomerular Filtration Rate 53 mL/min (>60); Est Glom Filt Rate - Afr Amer 64 mL/min (>60); Glucose 394 mg/dL (74-106); Potassium 4.5 mmol/L (3.5-5.1); Sodium Level 136 mmol/L (136-145)
== END | disposition home or self-care (01) ==
LOC: LAB 11:31
PROVIDERS: PCP Internal Medicine; Visit Provider Internal Medicine Cardiovascular Disease
DX: I25.10 Atherosclerotic heart disease of native coronary artery without angina pectoris (principal); Z95.5 Presence of coronary angioplasty implant and graft
CPT/HCPCS: 36415; 80048

== ENCOUNTER → 2022-09-25 | Outpatient (CLI) | payer MEDICARE, OTHER, SELFPAY ==
[2022-09-25 12:38] LABS: Absolute Neutrophil Count 2.1 X10^3/uL (2.0-7.7); Basophil# 0.02 X10^3/uL; Basophil% 0.4 % (0-1); Eosinophil# 0.23 X10^3/uL; Eosinophils% 5.2 % (0-5); Hemoglobin 13.8 g/dL (13.0-16.5); Mean Corp Hgb Conc 33.7 g/dL (32-36); Mean Corpuscular Volume 92.1 fL (80-94); Mean Platelet Vol. 10.3 fl (6.2-12.0); Monocyte# 0.51 X10^3/uL; Monocyte% 11.5 % (0-10); NRBC Flagged by Analyzer 0.4 % (0-5); Neutrophil # 2.09 X10^3/uL (2.7-7.7); Neutrophil % 46.9 % (47-70); Platelet Count 244 K/mm3 (150-450); RBC Distribution Width CV 12.5 % (11.6-14.6); RBC Distribution Width SD 42.1 fl (35.1-43.9); Red Blood Count 4.45 M/mm3 (4.6-6.2); White Blood Count 4.5 K/mm3 (4.4-11.0)
[2022-09-25 12:54] LABS: Vitamin D,25 Hydroxy 37.2 ng/mL
[2022-09-25 13:12] LABS: ALB/GLOB Ratio 1.2 RATIO (0.9-2.4); AST(SGOT) 13 U/L (15-37); Alanine Aminotransfer ALT/SGPT 34 U/L (16-61); Albumin, Serum 3.9 g/dL (3.2-5.0); Alkaline Phosphatase 55 U/L (45-117); Anion Gap 5 (5-15); BUN 26 mg/dL (7-18); Calcium,Total 9.3 mg/dL (8.5-10.1); Chloride 106 mmol/L (98-107); Cholesterol 165 mg/dL (200); Creatinine, Serum 1.13 mg/dL (0.70-1.30); EST Glomerular Filtration Rate 68 mL/min (>60); Est Glom Filt Rate - Afr Amer 82 mL/min (>60); Globulin 3.3 g/dL (2.2-4.2); Glucose 219 mg/dL (74-106); High Density Lipoprotein 40 mg/dL; PSA,Total - Annual Screen 1.97 ng/mL (0.00-4.00); Potassium 4.2 mmol/L (3.5-5.1); Protein, Total 7.2 g/dL (6.4-8.2); Sodium Level 139 mmol/L (136-145); Thyroid Stim Hormone (TSH) 3.41 uIU/mL (0.358-3.74); Triglycerides 221 mg/dL; Very Low Density Lipoprotein 44 mg/dL (5-40)
== END | disposition home or self-care (01) ==
LOC: BIMLAB 08:00
PROVIDERS: PCP Internal Medicine; Referring Provider Internal Medicine; Visit Provider Internal Medicine
DX: I25.10 Atherosclerotic heart disease of native coronary artery without angina pectoris (principal); E11.22 Type 2 diabetes mellitus with diabetic chronic kidney disease; N18.30 Chronic kidney disease, stage 3 unspecified; E78.1 Pure hyperglyceridemia; I12.9 Hypertensive chronic kidney disease with stage 1 through stage 4 chronic kidney disease, or unspecified chronic kidney disease; Z95.0 Presence of cardiac pacemaker; Z12.5 Encounter for screening for malignant neoplasm of prostate
CPT/HCPCS: 36415; 80053; 80061; 82306; 84153; 84443; 85025; G0103

== ENCOUNTER → 2023-02-18 | Outpatient (CLI) | payer MEDICARE, OTHER, SELFPAY ==
--- NOTE | 2023-02-18 12:46 | CDU_ITS ---
Reason For Study: Carotid stenosis Rt. Velocities/BP Lt. Velocities/BP Prox CCA 47.5 cm/sec. Prox CCA 73.5/21.2 cm/sec. Mid CCA 28.7 cm/sec. Mid CCA 70/20.3 cm/sec. Dist CCA 21.8 cm/sec. Dist CCA 101.1/23.7 cm/sec. Prox ECA 178.5/7.2 cm/sec. Prox ICA 86.1/25.6 cm/sec. Rt. Vert. 53.5/14.2 cm/sec. Mid ICA 91.9/29.8 cm/sec. Dist ICA 84.6/27.9 cm/sec. Lt. ICA/CCA = 1.25. Prox ECA 149.9/7.2 cm/sec. Lt. Vert. 35.2/7.2 cm/sec. Right Extracranial There is heterogeneous, irregular atherosclerotic plaque noted in the right common carotid artery. The right internal carotid artery is occluded. There is heterogeneous, irregular atherosclerotic plaque noted in the right external carotid artery. Antegrade flow is noted in the right vertebral artery. Left Extracranial There is heterogeneous, irregular atherosclerotic plaque noted in the left common carotid artery. There is heterogeneous, irregular atherosclerotic plaque noted in the left internal carotid artery. There is heterogeneous, irregular atherosclerotic plaque noted in the left external carotid artery. Antegrade flow is noted in the left vertebral artery. Procedure Carotid Duplex 38179. This is a Carotid Duplex examination using B-mode, color flow and specral Doppler. Exam performed in department. VL/Carotid Duplex Ultrasound Interpretation Summary Irregular calcific plaque with shadowing distal right common carotid artery wit h occlusion of the right internal carotid artery Less than 50% stenosis right external carotid artery Irregular calcific plaque with shadowing at the proximal left internal carotid artery with less than 50% stenosis Less than 50% stenosis left external carotid artery Patent and antegrade bilateral vertebral arteries No change from 05/12/2022 Ordering Physician: Manuel Gilman Referring Physician: Savanna Sinclair M.D. Performed By: Bridgett Strong Luis A
== END | disposition home or self-care (01) ==
LOC: CVS 12:42
PROVIDERS: PCP Internal Medicine; Referring Provider Surgery; Visit Provider Surgery
DX: I63.81 Other cerebral infarction due to occlusion or stenosis of small artery (principal)
CPT/HCPCS: 93880

== ENCOUNTER → 2023-04-03 | Outpatient (CLI) | payer MEDICARE, OTHER, SELFPAY ==
[2023-04-03 08:25] LABS: Absolute Lymphocyte Count 1.71 X10^3/uL (0.83-4.51); Absolute Neutrophil Count 2.3 X10^3/uL (2.0-7.7); Basophil# 0.01 X10^3/uL; Basophil% 0.2 % (0-1); Eosinophil# 0.23 X10^3/uL; Eosinophils% 4.7 % (0-5); Hematocrit 37.6 % (40-54); Lymphocyte # 1.71 X10^3/ul (0.83-4.51); Lymphocyte % 35.3 % (19-41); Mean Corp Hgb Conc 34.6 g/dL (32-36); Mean Corpuscular Hgb 31.6 pg (27.0-32.0); Mean Corpuscular Volume 91.5 fL (80-94); Mean Platelet Vol. 9.2 fl (6.2-12.0); Monocyte# 0.55 X10^3/uL; Monocyte% 11.3 % (0-10); NRBC Flagged by Analyzer 0 % (0-5); Neutrophil # 2.34 X10^3/uL (2.7-7.7); Neutrophil % 48.3 % (47-70); Platelet Count 233 K/mm3 (150-450); RBC Distribution Width CV 12.3 % (11.6-14.6); Red Blood Count 4.11 M/mm3 (4.6-6.2); White Blood Count 4.9 K/mm3 (4.4-11.0)
[2023-04-03 09:03] LABS: Vitamin D,25 Hydroxy 50.8 ng/mL
[2023-04-03 09:10] LABS: ALB/GLOB Ratio 1.2 RATIO (0.9-2.4); AST(SGOT) 15 U/L (15-37); Alanine Aminotransfer ALT/SGPT 35 U/L (16-61); Albumin, Serum 3.6 g/dL (3.2-5.0); Alkaline Phosphatase 62 U/L (45-117); Anion Gap 6 (5-15); BUN 23 mg/dL (7-18); BUN/Creat Ratio 16.2 RATIO (10-20); Calcium,Total 9.1 mg/dL (8.5-10.1); Chloride 104 mmol/L (98-107); Creatinine, Serum 1.42 mg/dL (0.70-1.30); EST Glomerular Filtration Rate 52 mL/min (>60); Est Glom Filt Rate - Afr Amer 63 mL/min (>60); Globulin 3.1 g/dL (2.2-4.2); Glucose 345 mg/dL (74-106); Potassium 4.6 mmol/L (3.5-5.1); Protein, Total 6.7 g/dL (6.4-8.2); Sodium Level 138 mmol/L (136-145)
== END | disposition home or self-care (01) ==
PROVIDERS: PCP Internal Medicine; Referring Provider Internal Medicine; Visit Provider Internal Medicine
DX: I25.10 Atherosclerotic heart disease of native coronary artery without angina pectoris (principal); E55.9 Vitamin D deficiency, unspecified
CPT/HCPCS: 36415; 80053; 82306; 85025

== ENCOUNTER → 2023-05-23 | Outpatient (CLI) | payer MEDICARE, OTHER, SELFPAY ==
[2023-05-23 07:54] LABS: AST(SGOT) 13 U/L (15-37); Alanine Aminotransfer ALT/SGPT 29 U/L (16-61); Anion Gap 6 (5-15); BUN 26 mg/dL (7-18); BUN/Creat Ratio 22.2 RATIO (10-20); CPK Total, Creatine Kinase 81 U/L (39-308); Chloride 107 mmol/L (98-107); Cholesterol 125 mg/dL (200); Creatinine, Serum 1.17 mg/dL (0.70-1.30); EST Glomerular Filtration Rate 65 mL/min (>60); Est Glom Filt Rate - Afr Amer 79 mL/min (>60); Glucose 191 mg/dL (74-106); High Density Lipoprotein 39 mg/dL; Potassium 4.2 mmol/L (3.5-5.1); Sodium Level 140 mmol/L (136-145); Triglycerides 228 mg/dL; Very Low Density Lipoprotein 46 mg/dL (5-40)
== END | disposition home or self-care (01) ==
LOC: LAB 06:23
PROVIDERS: PCP Internal Medicine; Referring Provider Internal Medicine Cardiovascular Disease; Visit Provider Internal Medicine Cardiovascular Disease
DX: I25.10 Atherosclerotic heart disease of native coronary artery without angina pectoris (principal); E78.1 Pure hyperglyceridemia; E78.00 Pure hypercholesterolemia, unspecified; I65.21 Occlusion and stenosis of right carotid artery
CPT/HCPCS: 36415; 80048; 80061; 82550; 84450; 84460

== ENCOUNTER 2023-08-20 03:28 | Emergency (ER) | payer MEDICARE, OTHER, SELFPAY ==
[2023-08-20 03:30] VITALS: BP 174/72; PULSE 80; RESP 16; TEMP 36.4; O2SAT 99; BMI 22.1
[2023-08-20 03:33] VITALS: BP 174/72; PULSE 80; RESP 16; TEMP 36.4; O2SAT 99
--- NOTE | 2023-08-20 03:40 | EDS_ITS ---
HPI History of Present Illness Chief Complaint: Weakness Informant: patient and spouse/S.O. Narrative Narrative: Present increasing weakness this evening. Diagnosed with COVID 8 days ago symptomatic 10 days ago. States mild congestion and fatigue and myalgias. No fevers or headaches, no vomiting or diarrhea. COVID vaccinated. First COVID infection. He was diagnosed at urgent care. He was started on dexamethasone for 5 days and has taken it. He is diabetic. Her sugars has been in 300 range. Decreased urine output. History of CKD. History of ischemic cardiomyopathy with coronary disease. No chest pains. No cough. Called her PCP yesterday. However due to symptoms worsened this evening came for evaluation. Prior similar symptoms: No PFSH PFSH Medical History Abnormal stress test Atherosclerotic heart disease of [place] coronary artery without angina pectoris Bilateral carotid artery stenosis BPH (benign prostatic hyperplasia) Cardiomyopathy, ischemic CKD (chronic kidney disease) stage 3, GFR 30-59 ml/min DDD (degenerative disc disease) Dyspnea on exertion Essential hypertension Hemorrhagic cerebrovascular accident (CVA) History of left heart catheterization (LHC) History of recent pneumonia Hypertriglyceridemia Multiple lacunar infarcts Presence of stent in coronary artery (~08/28/01) Pure hypercholesterolemia Right carotid artery occlusion Type 2 diabetes mellitus Home Medications ascorbic acid (vitamin C) 500 mg tablet 500 mg PO DAILY 07/05/21 [History Last Taken Unknown] aspirin 81 mg tablet,delayed release (Adult Low Dose Aspirin) 81 mg PO DAILY 07/05/21 [History Last Taken 06/01/22] cyanocobalamin (vitamin B-12) 5,000 mcg disintegrating tablet 1,000 mcg PO DAILY Check with primary doctor 07/05/21 [History Last Taken Unknown] cholecalciferol (vitamin D3) 25 mcg (1,000 unit) tablet 25 mcg PO BID 07/20/21 [History Last Taken Unknown] carvedilol 6.25 mg tablet 6.25 mg PO BID #180 tabs 03/29/23 [Rx Last Taken Unknown] blood sugar diagnostic ([employer]ner[employer] TechnologiesTouch Verio test strips) #100 ea 04/03/23 [Rx Last Taken Unknown] clopidogrel 75 mg tablet (Plavix) 75 mg PO DAILY #90 tabs 04/22/23 [Rx Last Taken Unknown] insulin glargine U-300 conc 300 unit/mL (1.5 mL) subcutaneous pen (Toujeo SoloStar U-300 Insulin) 36 unit (0.12 mL) subcut DAILY #4.5 mL 04/22/23 [Rx Last Taken Unknown] metformin 500 mg tablet 1,000 mg (2 x 500 mg) PO BID #180 tabs 04/24/23 [Rx Last Taken Unknown] amlodipine 5 mg tablet 5 mg PO DAILY #90 tabs 05/24/23 [Rx Last Taken Unknown] glimepiride 4 mg tablet 4 mg PO BID #90 tabs 05/30/23 [Rx Last Taken Unknown] atorvastatin 80 mg tablet 80 mg PO QHS #90 tabs 06/13/23 [Rx Last Taken Unknown] lisinopril 20 mg tablet 20 mg PO DAILY #90 tabs 06/13/23 [Rx Last Taken Unknown] isosorbide mononitrate 30 mg tablet,extended release 24 hr 30 mg PO DAILY #90 tabs 07/08/23 [Rx Last Taken Unknown] benzonatate 200 mg capsule 200 mg PO TID PRN cough #20 caps 08/13/23 [Rx Last Taken Unknown] pen needle, diabetic 32 gauge x 1/6 (NovoFine Plus) #100 ea 08/16/23 [Rx Last Taken Unknown] Allergy/AdvReac Type Severity Reaction Status Date / Time No Known Allergies Allergy Verified 08/20/23 03:29 Family History Mother CAD (coronary artery disease) Diabetes Myocardial infarction, Onset Age: 48 Father Diabetes Breast cancer Brother Diabetes Brother Cancer Prostate Surgical History History of arthroscopic surgery of shoulder History of laminectomy (~2007) History of left heart catheterization (LHC) (~06/01/22) Presence of coronary angioplasty implant and graft (~08/28/01) Social History household members: spouse Smoking Status: Former smoker alcohol intake: current details: occasional substance use type: does not use caffeine: Yes Type: tea Number of servings: 1 what type of physical activity do you participate in: none ROS ROS ED Constitutional Constitutional ED: Denies chills, fever(s) or sweats Eyes Eyes: Denies change in vision ENT ENT ED: Denies dysphagia or sore throat Cardiovascular Cardiovascular: Denies chest pain, leg edema, palpitations or racing heartbeat Respiratory/Chest Respiratory/Chest: Denies cough, dyspnea or dyspnea on exertion Gastrointestinal Gastrointestinal: Denies abdominal pain, diarrhea, nausea or vomiting Genitourinary Genitourinary ED: Denies dysuria, hematuria or urinary frequency Musculoskeletal Musculoskeletal: Denies back pain, extremity pain or neck pain Integumentary Denies rash or wounds Neurologic Neurologic: Reports weakness; Denies headache(s) or paresthesias EXAM Physical Exam Const Vital Signs: 08/20/23 03:30 08/20/23 03:33 08/20/23 03:33 Temperature 97.6 F L 97.6 F L Temperature Source Temporal Temporal Pulse Rate 80 80 Respiratory Rate 16 16 Respiratory Pattern Normal Blood Pressure 174/72 H 174/72 H Blood Pressure Mean 106 106 Pulse Ox 99 99 Oxygen Delivery Method Room Air Room Air 08/20/23 05:30 08/20/23 05:44 Temperature Temperature Source Pulse Rate 75 75 Respiratory Rate 14 14 Respiratory Pattern Blood Pressure 139/72 H 150/71 H Blood Pressure Mean 94 97 Pulse Ox 98 99 Oxygen Delivery Method Room Air Positive well nourished and well developed General Appearance ED: well developed and NAD HEENT Reports moist mucous membranes normocephalic and atraumatic Eyes PERRL, EOMs intact bilaterally and conjunctivae normal General Eye ED: Yes normal appearance of both eyes Neck no lymphadenopathy and supple General: Negative for tenderness Chest Wall Chest: Negative for tenderness Resp normal respiratory effort and normal air movement Effort and Inspection: symmetric chest movement; Negative for respiratory distress Cardio regular rate, regular rhythm and no murmurs Peripheral Pulses: pulses 2+ throughout GI normal to inspection, nondistended, normoactive bowel sounds and non-tender Palpation: Negative for guarding or rebound tenderness present Back/Spine no CVA tenderness and no thoracic nor lumbar tenderness Extremity normal to inspection General Extremety ED: Negative for edema or tenderness General Extremity: Negative for edema Neuro oriented x3 and no sensory deficits noted Sensorium / Orientation: awake and alert Skin no rashes or lesions noted and no wounds MDM MDM MDM Narrative Medical decision making narrative: Interventions / MDM: Differential diagnosis: COVID-19 infection, electrolyte abnormalities Diagnosis considered but do not suspect: No clinical pneumonia My EKG interpretation: N/A Imaging independently reviewed and interpreted by myself: N/A External documents reviewed: Urgent care notes with positive COVID testing. Test considered but not ordered:N/A ED course: Patient COVID infection day 10. Increasing fatigue. No chest pains or cough. IV established fluids. Obtain imaging. Creatinine 1.38 history of CKD stage III. This is his lower baseline levels. Glucose 271 however normal gap. Recently finished dexamethasone. Hemoglobin 14. Sodium 137. White count 8. Urine for infection. He is reassured. Tolerating oral fluids. He is able to ambulate. Therefore discussed continued symptomatic treatment at home with outpatient follow-up. All questions were answered. Re-evaluation: stable Disposition discussed with patient/family/significant other: Patient and spouse. Case discussed with consulting clinician: N/A This note was generated with [employer] dictation software. It may contain incorrect words, spelling, and punctuation that were not noted in checking the note before signing. Lab Data Attestation: I reviewed the patient's lab results. Labs: Laboratory Results - last 24 hr 08/20/23 08/20/23 02:57 05:10 WBC 8.0 RBC 4.54 L Hgb 14.1 Hct 41.5 MCV 91.4 MCH 31.1 MCHC 34.0 RDW Std Deviation 40.8 RDW Coeff of Rich 12.2 Plt Count 259 MPV 9.9 Immature Gran % (Auto) 0.400 Neut % (Auto) 62.5 Lymph % (Auto) 23.4 [place] % (Auto) 11.5 H Eos % (Auto) 2.0 Baso % (Auto) 0.2 Absolute Neuts (auto) 5.0 Absolute Lymphs (auto) 1.88 Nucleated RBC % 0 Sodium 137 Potassium 4.4 Chloride 101 Carbon Dioxide 27.0 Anion Gap 9 BUN 41 H Creatinine 1.38 H Estim Creat Clear Calc 49.90 Est GFR (MDRD) Af Amer 65 Est GFR (MDRD) Non-Af 54 L BUN/Creatinine Ratio 29.7 H Glucose 271 H Calcium 9.5 Urine Color Yellow Urine Clarity Clear Urine pH 6.0 Ur Specific [place] 1.015 Urine Protein 15 H Urine Glucose (UA) 1000 H Urine Ketones Negative Urine Occult Blood Negative Urine Nitrite Negative Urine Bilirubin Negative Urine Urobilinogen Normal Ur Leukocyte Esterase Negative Urine RBC 0 SEEN Urine WBC 0 SEEN Ur Squamous Epith Cells 0 SEEN Urine Bacteria 0 SEEN Urine Mucus 0 SEEN Discharge Plan Triage Chief Complaint: Weakness ED Provider: Diogenes Villalpando Dx/Rx/DC Orders Clinical Impression: COVID-19 virus infection, CKD (chronic kidney disease) stage 3, GFR 30-59 ml/min, Weakness, Type 2 diabetes mellitus Instructions: Coronavirus Disease 2019 (COVID-19): Caring for Yourself or Others Prescriptions: No Action cyanocobalamin (vitamin B-12) 5,000 mcg tablet,disintegrating 1,000 mcg PO DAILY ascorbic acid (vitamin C) 500 mg tablet 500 mg PO DAILY aspirin [Adult Low Dose Aspirin] 81 mg tablet,delayed release (DR/EC) 81 mg PO DAILY cholecalciferol (vitamin D3) 25 mcg (1,000 unit) tablet 25 mcg PO BID benzonatate 200 mg capsule 200 mg PO TID PRN (Reason: cough) Qty: 20 0RF carvedilol 6.25 mg tablet 6.25 mg PO BID Qty: 180 4RF Rx Instructions: must administer with a meal/food (DME) OneTouch Verio test strips Strip See Rx Instructions .ROUTE .MEDSUPPLY Qty: 100 11RF Rx Instructions: use as directed twice daily t monitor blood glucose for type 2 DM clopidogrel [Plavix] 75 mg tablet 75 mg PO DAILY Qty: 90 3RF Toujeo SoloStar U-300 Insulin 300 unit/mL (1.5 mL) insulin pen 36 unit subcut DAILY Qty: 4.5 5RF metformin 500 mg tablet 1,000 mg PO BID Qty: 180 3RF amlodipine 5 mg tablet 5 mg PO DAILY Qty: 90 3RF glimepiride 4 mg tablet 4 mg PO BID Qty: 90 3RF lisinopril 20 mg tablet 20 mg PO DAILY Qty: 90 3RF atorvastatin 80 mg tablet 80 mg PO QHS Qty: 90 3RF isosorbide mononitrate 30 mg tablet extended release 24 hr 30 mg PO DAILY Qty: 90 4RF (DME) NovoFine Plus 32 gauge x 1/6 needle See Rx Instructions .ROUTE .MEDSUPPLY Qty: 100 4RF Rx Instructions: use one daily to administer insulin. Primary Care Provider: Savanna Sinclair Referrals: Savanna Sinclair MD [Primary Care Provider] - 1 Week if not improving Activity Restrictions/Additional Instructions: Creatinine 1.3 today GFR of 54. Sodium 137. White count 8.0. Hemoglobin 14. Glucose 271, anion gap 9. You are dealing with COVID symptoms. Continue oral fluids for hydration. Follow-up with your doctor. Return if any worsening symptoms for reevaluation. Disposition Disposition: Home, Self Care Discharge Date/Time: 08/20/23 05:52
[2023-08-20] MEDS: 0.9% Normal Saline (500mL Bag) 500 ML 1000 ML IV (03:55)
[2023-08-20 04:03] LABS: Absolute Lymphocyte Count 1.88 X10^3/uL (0.83-4.51); Basophil# 0.02 X10^3/uL; Basophil% 0.2 % (0-1); Eosinophil# 0.16 X10^3/uL; Hematocrit 41.5 % (40-54); Hemoglobin 14.1 g/dL (13.0-16.5); Lymphocyte # 1.88 X10^3/ul (0.83-4.51); Lymphocyte % 23.4 % (19-41); Mean Corpuscular Hgb 31.1 pg (27.0-32.0); Mean Corpuscular Volume 91.4 fL (80-94); Mean Platelet Vol. 9.9 fl (6.2-12.0); Monocyte# 0.92 X10^3/uL; Monocyte% 11.5 % (0-10); NRBC Flagged by Analyzer 0 % (0-5); Neutrophil # 5.01 X10^3/uL (2.7-7.7); Neutrophil % 62.5 % (47-70); Platelet Count 259 K/mm3 (150-450); RBC Distribution Width CV 12.2 % (11.6-14.6); RBC Distribution Width SD 40.8 fl (35.1-43.9); Red Blood Count 4.54 M/mm3 (4.6-6.2)
[2023-08-20 04:17] LABS: Anion Gap 9 (5-15); BUN 41 mg/dL (7-18); BUN/Creat Ratio 29.7 RATIO (10-20); Calcium,Total 9.5 mg/dL (8.5-10.1); Chloride 101 mmol/L (98-107); Creatinine, Serum 1.38 mg/dL (0.70-1.30); EST Glomerular Filtration Rate 54 mL/min (>60); Est Glom Filt Rate - Afr Amer 65 mL/min (>60); Glucose 271 mg/dL (74-106); Potassium 4.4 mmol/L (3.5-5.1); Sodium Level 137 mmol/L (136-145)
[2023-08-20 05:16] LABS: Bacteria 0 SEEN /hpf (None Seen); Mucous, Urine 0 SEEN /hpf (<or=2+); Red Blood Cells-Urine 0 SEEN /hpf (0-5); Squamous Epithelial Cells - UA 0 SEEN /hpf (0-5); White Blood Cells 0 SEEN /hpf (0-5)
[2023-08-20 05:25] LABS: Color, Urine Yellow (Yellow); Glucose, Dipstick 1000 mg/dl (Normal); Ketone-Dipstick Negative (Negative); Leukocyte Esterase-Dipstick Negative /ul (Negative); Nitrite-Dipstick Negative (Negative); Occult Blood-Urine Negative /ul (Negative); Protein-Dipstick 15 mg/dl (Negative); Specific Gravity, Urine 1.015 (1.002-1.030); Urine Bilirubin Dipstick Negative (Negative); Urine Clarity Clear (Clear); Urine Urobilinogen Normal (Normal)
[2023-08-20 05:30] VITALS: BP 139/72; PULSE 75; RESP 14; O2SAT 98
[2023-08-20 05:44] VITALS: BP 150/71; PULSE 75; RESP 14; O2SAT 99
== END 2023-08-20 05:52 | disposition home or self-care (01) ==
PROVIDERS: Emergency Provider Emergency Medicine; PCP Internal Medicine; Visit Provider Emergency Medicine
DX: U07.1 COVID-19 (principal); E11.22 Type 2 diabetes mellitus with diabetic chronic kidney disease; N18.30 Chronic kidney disease, stage 3 unspecified; I12.9 Hypertensive chronic kidney disease with stage 1 through stage 4 chronic kidney disease, or unspecified chronic kidney disease; E78.00 Pure hypercholesterolemia, unspecified; Z87.891 Personal history of nicotine dependence; I25.10 Atherosclerotic heart disease of native coronary artery without angina pectoris
CPT/HCPCS: 80048; 81001; 85025; 99283; J7040; A4216

== ENCOUNTER 2023-08-24 07:05 | Emergency (ER) | payer MEDICARE, OTHER, SELFPAY ==
[2023-08-24 07:06] VITALS: BP 153/80; PULSE 83; RESP 14; TEMP 36.4; O2SAT 99; BMI 21.9
--- NOTE | 2023-08-24 07:21 | RAD_ITS ---
STUDY: X-RAY CHEST REASON FOR EXAM: Male, 73 years old. Cough TECHNIQUE: Frontal and lateral views of the chest COMPARISON: 05/24/2022 FINDINGS: The lungs are clear. There are no pleural effusions. There is no pneumothorax. The heart is normal in size. The visualized osseous structures are within normal limits. RAD/Chest PA and Lateral IMPRESSION: No acute thoracic pathology. Electronically Signed: Omkar Henley MD at 8:13 EST ,
--- NOTE | 2023-08-24 07:21 | EKG12_ITS ---
Test Reason : SOB Blood Pressure : / mmHG Vent. Rate : 078 BPM Atrial Rate : 078 BPM P-R Int : 146 ms QRS Dur : 084 ms QT Int : 366 ms P-R-T Axes : 060 007 068 degrees QTc Int : 417 ms Sinus rhythm with occasional Premature ventricular complexes Inferior infarct , age undetermined Abnormal ECG Confirmed by LONG LORENZO, JS ([id number]), associate entertainment editor MARLON POE ([id number]) on 08/27/2023 6:16:13 AM Referred By: Sadi Mccoy Confirmed By:MALINDA ALVES MD
--- NOTE | 2023-08-24 07:22 | EX.ED.DYSGE1 ---
HPI History of Present Illness Chief Complaint: Shortness of Breath Detail of Chief Complaint: Week and fatigued after having COVID about 2 weeks ago. Informant: patient Onset/Context/Timing Onset: Weeks Context: Gradual Onset Timing: Continuous Current Severity: Mild Maximum Severity: Mild Narrative Narrative: 73-year-old male history of CAD, stent, LA, chronic kidney disease, prior hemorrhagic stroke, diabetes and on the medication Plavix. Both he and his had COVID about 2 weeks ago. He has had a persistent cough and just feels generally weak with bodyaches. He was seen in the emergency department earlier this past week had basically unremarkable workup including a chest x-ray, urinalysis CBC and chemistry. And was discharged home. That he still having a cough of discolored sputum. Denies any fever. No vomiting. States he is urinating fine. Prior similar symptoms: Yes Recent Illness/Hospitalization: No PFSH [facility] Medical History Abnormal stress test Atherosclerotic heart disease of [place] coronary artery without angina pectoris Bilateral carotid artery stenosis BPH (benign prostatic hyperplasia) Cardiomyopathy, ischemic CKD (chronic kidney disease) stage 3, GFR 30-59 ml/min DDD (degenerative disc disease) Dyspnea on exertion Essential hypertension Hemorrhagic cerebrovascular accident (CVA) History of left heart catheterization (LHC) History of recent pneumonia Hypertriglyceridemia Multiple lacunar infarcts Presence of stent in coronary artery (~08/28/01) Pure hypercholesterolemia Right carotid artery occlusion Type 2 diabetes mellitus Home Medications ascorbic acid (vitamin C) 500 mg tablet 500 mg PO DAILY 07/05/21 [History Last Taken Unknown] aspirin 81 mg tablet,delayed release (Adult Low Dose Aspirin) 81 mg PO DAILY 07/05/21 [History Last Taken 06/01/22] cyanocobalamin (vitamin B-12) 5,000 mcg disintegrating tablet 1,000 mcg PO DAILY Check with primary doctor 07/05/21 [History Last Taken Unknown] cholecalciferol (vitamin D3) 25 mcg (1,000 unit) tablet 25 mcg PO BID 07/20/21 [History Last Taken Unknown] carvedilol 6.25 mg tablet 6.25 mg PO BID #180 tabs 03/29/23 [Rx Last Taken Unknown] blood sugar diagnostic (Metavanauch Verio test strips) #100 ea 04/03/23 [Rx Last Taken Unknown] clopidogrel 75 mg tablet (Plavix) 75 mg PO DAILY #90 tabs 04/22/23 [Rx Last Taken Unknown] insulin glargine U-300 conc 300 unit/mL (1.5 mL) subcutaneous pen (Toujeo SoloStar U-300 Insulin) 36 unit (0.12 mL) subcut DAILY #4.5 mL 04/22/23 [Rx Last Taken Unknown] metformin 500 mg tablet 1,000 mg (2 x 500 mg) PO BID #180 tabs 04/24/23 [Rx Last Taken Unknown] amlodipine 5 mg tablet 5 mg PO DAILY #90 tabs 05/24/23 [Rx Last Taken Unknown] glimepiride 4 mg tablet 4 mg PO BID #90 tabs 05/30/23 [Rx Last Taken Unknown] atorvastatin 80 mg tablet 80 mg PO QHS #90 tabs 06/13/23 [Rx Last Taken Unknown] lisinopril 20 mg tablet 20 mg PO DAILY #90 tabs 06/13/23 [Rx Last Taken Unknown] isosorbide mononitrate 30 mg tablet,extended release 24 hr 30 mg PO DAILY #90 tabs 07/08/23 [Rx Last Taken Unknown] benzonatate 200 mg capsule 200 mg PO TID PRN cough #20 caps 08/13/23 [Rx Last Taken Unknown] pen needle, diabetic 32 gauge x 1/6 (NovoFine Plus) #100 ea 08/16/23 [Rx Last Taken Unknown] Allergy/AdvReac Type Severity Reaction Status Date / Time No Known Allergies Allergy Verified 08/24/23 07:10 Family History Mother CAD (coronary artery disease) Diabetes Myocardial infarction, Onset Age: 48 Father Diabetes Breast cancer Brother Diabetes Brother Cancer Prostate Surgical History History of arthroscopic surgery of shoulder History of laminectomy (~2007) History of left heart catheterization (LHC) (~06/01/22) Presence of coronary angioplasty implant and graft (~08/28/01) Social History household members: spouse Smoking Status: Former smoker alcohol intake: current details: occasional substance use type: does not use caffeine: Yes Type: tea Number of servings: 1 what type of physical activity do you participate in: none ROS ROS ED ROS Narrative Cough. Fatigue. Review of Systems ROS Unobtainable: Denies due to encephalopathy Constitutional Constitutional ED: Denies chills Eyes Eyes: Denies blurry vision ENT ENT ED: Denies ear pain Cardiovascular Cardiovascular: Denies chest pain or orthopnea Respiratory/Chest Respiratory/Chest: Reports cough and sputum; Denies orthopnea Gastrointestinal Gastrointestinal: Denies abdominal pain Genitourinary Genitourinary ED: Denies dysuria or hematuria Musculoskeletal Musculoskeletal: Denies arthralgias Integumentary Denies abscess Neurologic Neurologic: Denies headache(s) Psychiatric Psychiatric: Denies anxiety or depression Endocrine Endocrinology: Denies cold intolerance Hematologic/Lymphatic Hematologic/Lymphatic: Reports none Allergic/Immunologic Allergic/Immunologic ED: Denies mouth swelling, tongue swelling or urticaria EXAM Physical Exam Narrative Exam Narrative: Well-appearing 73-year-old male. Vital signs stable afebrile. Pulse ox 99% on room air no hypoxia. No distress. present in the room. H EENT exam mildly dry mucous membranes. Dry reactive light. Neck nontender no JVD. No lymphadenopathy. Lungs clear to auscultation bilaterally. Heart regular rhythm no murmur. Chest wall and ribs nontender. Back nontender. Abdomen soft nontender. Normal bowel sounds without peritoneal signs. No distention. Moving all 4 extremities. Normal motor strength. Calves are nontender without edema. Neurologically is awake and alert with no focal motor deficits. Const Vital Signs: 08/24/23 07:06 08/24/23 07:32 Temperature 97.6 F L Temperature Source Temporal Pulse Rate 83 Respiratory Rate 14 Respiratory Effort Short of Breath Blood Pressure 153/80 H Blood Pressure Mean 104 Pulse Ox 99 Oxygen Delivery Method Room Air Room Air Positive well nourished and well developed; Negative for obese, cachectic, contractures or unkempt General Appearance ED: well developed and NAD; Negative for unkempt, cachectic, contractures, cyanotic, diaphoretic or pallor Nutritional Appearance: Negative for cachectic or obese HEENT Reports dry mucous membranes; Denies moist mucous membranes Negative for trauma or tenderness Mouth ED: Yes dry mucous membranes Mouth: dry mucous membranes Eyes PERRL and EOMs intact bilaterally General Eye ED: Negative for pale conjunctiva or scleral icterus Neck no lymphadenopathy, supple and no JVD General: Negative for tenderness Lymph Lymphatic: Negative for other Chest Wall inspection of chest normal and palpation of chest normal Chest: Negative for other Resp normal respiratory effort and clear to auscultation bilaterally Effort and Inspection: Negative for retractions Auscultation: Negative for rales, rhonchi or wheezes Cardio regular rate, regular rhythm, S1 normal heart sound, S2 normal heart sound and no murmurs Rate: Negative for bradycardia or tachycardic GI normal to inspection, nondistended, normoactive bowel sounds, non-tender, non-distended and no masses Inspection: Negative for abdominal distention Auscultation: normoactive bowel sounds Palpation: soft; Negative for tender or guarding Back/Spine no CVA tenderness General Back: Negative for CVA tenderness Cervical Spine: Negative for cervical spine tenderness Thoracic Spine / Upper Back: Negative for thoracic spinal tenderness Lumbar Spine / Lower Back: Negative for lumbar spinal tenderness Extremity normal to inspection General Extremety ED: Negative for edema or tenderness General Extremity: Negative for edema Neuro oriented x3 and CN's II-XII intact bilaterally Sensorium / Orientation: alert; Negative for orientation impaired, lethargic or stuporous Motor Exam: strength 5/5 throughout Psych mental status grossly normal Appearance: Negative for unkempt Attitude: No agitated Mood & Affect: Negative for depressed, anxious or tearful Skin no rashes or lesions noted and no wounds General Skin Exam: Negative for jaundice or pallor Lesions: No lesion noted Rashes: No rashes noted Trauma: Negative for abrasion Wounds: Negative for wounds noted MDM MDM MDM Narrative Medical decision making narrative: 73-year-old male status post COVID 2 weeks ago. States he still has bodyaches feels weak and fatigued. Vital signs are stable and afebrile. Pulse ox is 99% on room air. Exam benign other than he may be mildly dehydrated. He had labs and x-ray and urinalysis done earlier this week. Will repeat some labs. And a chest x-ray. Received a liter of IV fluids with clinically looks a little dehydrated. Exam patient is doing well. I had a long discussion both he and his last tests and exam. Are comfortable being discharged home and outpatient follow-up. Plenty of fluids. Rest. Increase activity as tolerated. History & Record Review Discussion w/independent historian: Patient and Family Additional record(s) reviewed:: Prior inpatient record, Prior outpatient record, Prior ED visit and Prior labs Lab Data Attestation: I reviewed the patient's lab results. Lab results narrative: CBC is unremarkable. White count of 11. H&H of 13.9 and 40. Platelet count is 223. Lecture lites show a gap of 4. BUN of 31 creatinine 1.32 consistent with mild dehydration. He has chronic renal insufficiency this is his baseline. Glucose 224. Labs: Laboratory Results - last 24 hr 08/24/23 07:31 WBC 11.0 RBC 4.40 L Hgb 13.9 Hct 40.1 MCV 91.1 MCH 31.6 MCHC 34.7 RDW Std Deviation 41.1 RDW Coeff of Rich 12.4 Plt Count 223 MPV 9.8 Immature Gran % (Auto) 0.500 Neut % (Auto) 67.8 Lymph % (Auto) 15.2 L [place] % (Auto) 14.5 H Eos % (Auto) 1.6 Baso % (Auto) 0.4 Absolute Neuts (auto) 7.4 Absolute Lymphs (auto) 1.66 Nucleated RBC % 0 Sodium 137 Potassium 4.6 Chloride 104 Carbon Dioxide 29.0 Anion Gap 4 L BUN 31 H Creatinine 1.32 H Estim Creat Clear Calc 51.60 Est GFR (MDRD) Af Amer 68 Est GFR (MDRD) Non-Af 57 L BUN/Creatinine Ratio 23.5 H Glucose 224 H Calcium 10.1 Radiography Chest X-Ray - ED: 2 View, Read by ED Physician, Heart, Lungs, Mediastinum, Bony Structures, No Acute Disease and Chronic Changes Diagnostic Testing: Chest x-ray, 2 views, AP and lateral, interpreted by myself shows no acute abnormality. Normal cardiac silhouette. Normal mediastinum. Normal lung steve. No pneumonia. No effusions. Rhythm Strip Rhythm Strip: Sinus Rhythm Rate: 78 Ectopy: PVC(s) EKG Initial EKG: Attestation: I personally reviewed and interpreted this EKG as follows: Interpretation: Sinus Rhythm and No Acute Injury Pattern Comments: Number sinus rhythm rate of 78 no acute sign of LA or ischemia. Old inferior infarct. Occasional PVCs. Discharge Plan Triage Chief Complaint: Shortness of Breath ED Provider: Sadi Mccoy Dx/Rx/DC Orders Clinical Impression: Acute dehydration, History of COVID-19, Chronic kidney insufficiency, History of diabetes mellitus Instructions: ED Dehydration (Adult) Prescriptions: No Action cyanocobalamin (vitamin B-12) 5,000 mcg tablet,disintegrating 1,000 mcg PO DAILY ascorbic acid (vitamin C) 500 mg tablet 500 mg PO DAILY aspirin [Adult Low Dose Aspirin] 81 mg tablet,delayed release (DR/EC) 81 mg PO DAILY cholecalciferol (vitamin D3) 25 mcg (1,000 unit) tablet 25 mcg PO BID benzonatate 200 mg capsule 200 mg PO TID PRN (Reason: cough) Qty: 20 0RF carvedilol 6.25 mg tablet 6.25 mg PO BID Qty: 180 4RF Rx Instructions: must administer with a meal/food (DME) OneTouch Verio test strips Strip See Rx Instructions .ROUTE .MEDSUPPLY Qty: 100 11RF Rx Instructions: use as directed twice daily t monitor blood glucose for type 2 DM clopidogrel [Plavix] 75 mg tablet 75 mg PO DAILY Qty: 90 3RF Toujeo SoloStar U-300 Insulin 300 unit/mL (1.5 mL) insulin pen 36 unit subcut DAILY Qty: 4.5 5RF metformin 500 mg tablet 1,000 mg PO BID Qty: 180 3RF amlodipine 5 mg tablet 5 mg PO DAILY Qty: 90 3RF glimepiride 4 mg tablet 4 mg PO BID Qty: 90 3RF lisinopril 20 mg tablet 20 mg PO DAILY Qty: 90 3RF atorvastatin 80 mg tablet 80 mg PO QHS Qty: 90 3RF isosorbide mononitrate 30 mg tablet extended release 24 hr 30 mg PO DAILY Qty: 90 4RF (DME) NovoFine Plus 32 gauge x 1/6 needle See Rx Instructions .ROUTE .MEDSUPPLY Qty: 100 4RF Rx Instructions: use one daily to administer insulin. Primary Care Provider: Savanna Sinclair Referrals: Savanna Sinclair MD [Primary Care Provider] - 1 Week if not improving Activity Restrictions/Additional Instructions: Plenty of fluids and rest. You are a little dehydrated. Tylenol as needed for body aches. Follow-up with your doctor if not improving. Disposition Disposition: Home, Self Care
[2023-08-24] MEDS: 0.9% Normal Saline (1000mL) 1,000 ML 1000 ML IV (07:29)
[2023-08-24 07:32] VITALS: O2SAT 96
[2023-08-24 07:35] LABS: Absolute Lymphocyte Count 1.66 X10^3/uL (0.83-4.51); Absolute Neutrophil Count 7.4 X10^3/uL (2.0-7.7); Basophil# 0.04 X10^3/uL; Basophil% 0.4 % (0-1); Differential Indicated SCAN CRITERIA MET; Eosinophil# 0.18 X10^3/uL; Eosinophils% 1.6 % (0-5); Hematocrit 40.1 % (40-54); Hemoglobin 13.9 g/dL (13.0-16.5); Lymphocyte # 1.66 X10^3/ul (0.83-4.51); Lymphocyte % 15.2 % (19-41); Mean Corp Hgb Conc 34.7 g/dL (32-36); Mean Corpuscular Hgb 31.6 pg (27.0-32.0); Mean Corpuscular Volume 91.1 fL (80-94); Mean Platelet Vol. 9.8 fl (6.2-12.0); Monocyte# 1.59 X10^3/uL; Monocyte% 14.5 % (0-10); NRBC Flagged by Analyzer 0 % (0-5); Neutrophil # 7.43 X10^3/uL (2.7-7.7); Neutrophil % 67.8 % (47-70); POSITIVE DIFFERENTIAL YES; Platelet Count 223 K/mm3 (150-450); RBC Distribution Width CV 12.4 % (11.6-14.6); RBC Distribution Width SD 41.1 fl (35.1-43.9)
[2023-08-24 07:49] LABS: Anion Gap 4 (5-15); BUN 31 mg/dL (7-18); BUN/Creat Ratio 23.5 RATIO (10-20); Calcium,Total 10.1 mg/dL (8.5-10.1); Chloride 104 mmol/L (98-107); Creatinine, Serum 1.32 mg/dL (0.70-1.30); EST Glomerular Filtration Rate 57 mL/min (>60); Est Glom Filt Rate - Afr Amer 68 mL/min (>60); Glucose 224 mg/dL (74-106); Potassium 4.6 mmol/L (3.5-5.1); Sodium Level 137 mmol/L (136-145)
[2023-08-24 08:27] LABS: Platelet Estimate ADEQUATE (ADEQ)
[2023-08-24 08:28] LABS: Red Cell Morphology NORM C+C NORMAL (NORM C&C)
== END 2023-08-24 08:24 | disposition home or self-care (01) ==
PROVIDERS: Emergency Provider Emergency Medicine; PCP Internal Medicine; Referring Provider Emergency Medicine; Visit Provider Emergency Medicine
DX: E86.0 Dehydration (principal); E11.22 Type 2 diabetes mellitus with diabetic chronic kidney disease; N18.30 Chronic kidney disease, stage 3 unspecified; I12.9 Hypertensive chronic kidney disease with stage 1 through stage 4 chronic kidney disease, or unspecified chronic kidney disease; Z95.5 Presence of coronary angioplasty implant and graft; I25.10 Atherosclerotic heart disease of native coronary artery without angina pectoris; E78.00 Pure hypercholesterolemia, unspecified; Z87.891 Personal history of nicotine dependence; Z79.02 Long term (current) use of antithrombotics/antiplatelets; Z86.73 Personal history of transient ischemic attack (TIA), and cerebral infarction without residual deficits; Z86.16 Personal history of COVID-19; R06.02 Shortness of breath; I25.2 Old myocardial infarction
CPT/HCPCS: 71046; 80048; 85025; 93005; 96360; 99283; J7030

== ENCOUNTER → 2023-11-06 | Outpatient (CLI) | payer MEDICARE, OTHER, SELFPAY ==
--- OUTSIDE RECORDS SUMMARY | 2023-11-06 05:49 | XMS RPT_ITS | CCD ---
Author Name Unknown Address [id number] [place] [address] Organization [facility] Care Team Providers Care Recruiting Scheduler Name Role Phone Eloy Martinez MD Unavailable Unavailable Primary Care Provider Unavailabl e Problems Active Problems Problem Classification Problem Date Documented Da te Episodic/Chronic Other connective tissue disease (11 sources) Adhesive capsulitis of right shoulder; Translations: [Adhesive capsulitis of right shoulder] Onset: 12-27-2021 12-27-2021 Episodic Past or Other Problems Problem Classification Problem Date Documented Da te Episodic/Chronic Unclassified (1 source) Problem Results Test Name Value Interpretation Reference Range Facil ity Vital Signs Date Time Vital Sign Value Performing Clinician Facility NEGATED: Highlighted [id number] 13:39-0400 Body height 182.88 cm Nisha Brandon [facility] Work Phone: NEGATED: Highlighted [id number] 13:39-0400 Body height 183 cm Nisha Brandon SUPPLY CHAIN ASSISTANT [facility] Work Phone: NEGATED: Highlighted [id number] 13:39-0400 Body mass index (BMI) [Ratio] 23.68 kg/m2 Nisha Brandon [facility] Work Phone: NEGATED: Highlighted [id number] 13:39-0400 Body weight 78.93 kg Nisha Taylor SUPPLY CHAIN ASSISTANT [facility] Work Phone: NEGATED: Highlighted [id number] 13:39-0400 Body weight 79 kg Nisha Taylor SUPPLY CHAIN ASSISTANT [facility] Work Phone: Encounters Encounter Date Encounter Type Care Provider Facility Start: 02-09-2022 End: 02-09-2022 ambulatory Maria Elena Damian PT [facility] Physical Therapy Procedures Date Procedure Procedure Detail Performing Clinician Start: 12-27-2021 End: 12-27-2021 Arthrocentesis aspir&/inj major jt/bursa w/o us Eloy Martinez MD Work Phone: Start: 12-27-2021 End: 12-27-2021 BP scrn no perf at interval Eloy Martinez MD Work Phone: Start: 12-27-2021 End: 12-27-2021 Calc BMI norm parameters Eloy Hall Work Phone: Start: 12-27-2021 End: 12-27-2021 Current tobacco non-user cad cap copd pv dm Eloy Martinez MD Work Phone: Start: 12-27-2021 End: 12-27-2021 Docrev cur meds by elig clin Eloy Martinez MD Work Phone: Start: 12-27-2021 End: 12-27-2021 Pain doc pos and plan Eloy Martinez MD Work Phone: Start: 12-27-2021 End: 12-27-2021 Patient encounter procedure Eloy Martinez MD Work Phone: Start: 12-27-2021 End: 12-27-2021 Radex shoulder complete minimum 2 views Eloy Martinez MD Work Phone: Start: 12-27-2021 End: 12-27-2021 Triamcinolone acet inj NOS Eloy Martinez MD Work Phone: NEGATED: Highlighted rowStart: 12-27-2021 End: 12-27-2021 Documentation of current medications Nisha Taylor LPN Plan of Treatment Date Care Activity Detail Author Start: 05-17-2022 Influenza vaccination INFLUENZA (Season Ended) [facility] Start: 04-26-2022 COVID-19 VACCINE (4 - Booster for Pfizer series) COVID-19 VACCINE (4 - Booster for Pfizer series) [facility] Start: 01-15-2022 COVID-19 VACCINE (2 - Pfizer 3-dose series) COVID-19 VACCINE (2 - Pfizer 3-dose series) [facility] Start: 12-27-2021 End: 12-27-2021 Patient encounter procedure Appointment [facility] Work Phone: Start: 09-16-2021 ADVANCE DIRECTIVE DISCUSSION ADVANCE DIRECTIVE DISCUSSION [facility] Start: 2015 PNEUMOCOCCAL: 65+ (1 - PCV) PNEUMOCOCCAL: 65+ (1 - PCV) [facility] Start: 2015 PNEUMOVAX AGE 65 AND OVER WITH 5YR LOOKBACK (#1) PNEUMOVAX AGE 65 AND OVER WITH 5YR LOOKBACK (#1) [facility] Start: 2000 SHINGRIX VACCINE (1 of 2) SHINGRIX VACCINE (1 of 2) [facility] Start: 1995 COLOGUARD (FIT-DNA) COLOGUARD (FIT-DNA) [facility] Start: 1995 Colonoscopy COLONOSCOPY [facility] Start: 1995 COLORECTAL CANCER SCREENING COLORECTAL CANCER SCREENING [facility] Start: [address] COLONOGRAPHY [facility] Start: 1995 DIABETES SCREEN DIABETES SCREEN [facility] Start: 1995 FECAL OCCULT BLOOD FECAL OCCULT BLOOD [facility] Start: 1995 SIGMOIDOSCOPY SIGMOIDOSCOPY [facility] Start: 1985 LIPID SCREEN LIPID SCREEN [facility] Start: 1969 Urine microalbumin profile DTAP,TDAP,TD (1 - Tdap) [facility] Start: 1968 HEPATITIS C SCREENING HEPATITIS C SCREENING [facility] Start: 1962 Adult depression screening assessment DEPRESSION SCREENING [facility] Payers Date Payer Category Payer Unknown [employer] SUPPLEMENT [id number] 2017-Present [phone] [id number] [place], [place] [id number] [address] [id number] 2015 Medicare MEDICARE MEDICAR E A AND B [id number] 2015-Present [phone] [place] [address] Medicare [id number] Social History Date Type Detail Facility Tobacco smoking status UTIS Tobacco smoking consumption unknown [facility] Start: 1950 Sex Assigned At Male [facility] Start: 12-17-2021 End: 12-27-2021 Exposure to SARS-CoV-2 (event) Not sure [facility] NEGATED: Highlighted rowStart: 12-27-2021 End: 12-27-2021 Alcohol use Alcohol use [facility] Work Phone: NEGATED: Highlighted rowStart: 12-27-2021 End: 12-27-2021 Details of drug misuse behavior Details of drug misuse behavior [facility] Work Phone: NEGATED: Highlighted rowStart: 12-27-2021 End: 12-27-2021 Assertion Former smoker [facility] Work Phone: Clinical Notes 12-28-2021 to 02-09-2022 Maria Elena Damian, PT - 02/09/2022 9:33 AM EDNaina Damian, PT - 02/02/2022 9:31 AM EDNaina Damian, PT - 01/26/2022 8:41 AM Chelsi Damian, PT - 01/19/2022 9:28 AM EDT Note Date & Type Note Facility 02-09-2022 Note HNO ID: [id number] Author: Maria Elena Damian PT Service: ? Author Type: Physical Therapist Type: Progress Notes Filed: 02/09/2022 9:55 AM Note Text: Episode Visit Count: 5 Therapist That Will Oversee The Plan Of Care: Maria Elena Damian Start of Care Date: 12/28/21 Onset Date: 12/28/14 Plan of Care Certification Date: 02/02/22 Next Certification Due Date: 03/09/22 [facility] PHYSICAL THERAPY DISCONTINUANCE OF CARE PLAN OF CARE UPDATE: Assessment: Coleman Davies is discontinued from Physical Therapy services due to goal achievement and maximal benefit.. Patient was seen for 5 visits from Start of Care Date: 12/28/21 to 02/09/2022 and treatment included: Therapeutic activities and Self-shelter management. Goals for Episode of Care: created on 12/28/21 through 02/08/22 Goals updated on 01/19/2022 Goals updated on 02/02/2022 through 03/16/22 Goals updated on 02/09/2022. [place] in home exercise
[2023-11-06 06:34] LABS: Absolute Lymphocyte Count 1.91 X10^3/uL (0.83-4.51); Absolute Neutrophil Count 2.4 X10^3/uL (2.0-7.7); Basophil# 0.03 X10^3/uL; Basophil% 0.6 % (0-1); Eosinophil# 0.32 X10^3/uL; Hematocrit 37.2 % (40-54); Hemoglobin 12.4 g/dL (13.0-16.5); Lymphocyte # 1.91 X10^3/ul (0.83-4.51); Lymphocyte % 35.9 % (19-41); Mean Corp Hgb Conc 33.3 g/dL (32-36); Mean Corpuscular Hgb 30.5 pg (27.0-32.0); Mean Corpuscular Volume 91.4 fL (80-94); Monocyte# 0.68 X10^3/uL; Monocyte% 12.8 % (0-10); NRBC Flagged by Analyzer 0 % (0-5); Neutrophil # 2.36 X10^3/uL (2.7-7.7); Neutrophil % 44.3 % (47-70); Platelet Count 289 K/mm3 (150-450); RBC Distribution Width CV 13.1 % (11.6-14.6); RBC Distribution Width SD 43.8 fl (35.1-43.9); Red Blood Count 4.07 M/mm3 (4.6-6.2); White Blood Count 5.3 K/mm3 (4.4-11.0)
[2023-11-06 07:06] LABS: ALB/GLOB Ratio 1.1 RATIO (0.9-2.4); AST(SGOT) 11 U/L (15-37); Alanine Aminotransfer ALT/SGPT 25 U/L (16-61); Albumin, Serum 3.6 g/dL (3.2-5.0); Alkaline Phosphatase 77 U/L (45-117); Anion Gap 5 (5-15); BUN 23 mg/dL (7-18); BUN/Creat Ratio 20.2 RATIO (10-20); Bilirubin, Direct 0.11 mg/dL (0.00-0.30); Calcium,Total 10.4 mg/dL (8.5-10.1); Chloride 108 mmol/L (98-107); Cholesterol 153 mg/dL (200); Creatinine, Serum 1.14 mg/dL (0.70-1.30); EST Glomerular Filtration Rate 67 mL/min (>60); Est Glom Filt Rate - Afr Amer 81 mL/min (>60); Globulin 3.4 g/dL (2.2-4.2); Glucose 148 mg/dL (74-106); High Density Lipoprotein 47 mg/dL; PSA,Total - Annual Screen 2.56 ng/mL (0.00-4.00); Potassium 4.2 mmol/L (3.5-5.1); Sodium Level 141 mmol/L (136-145); Triglycerides 132 mg/dL; Very Low Density Lipoprotein 26 mg/dL (5-40)
[2023-11-06 07:54] LABS: Vitamin D,25 Hydroxy 44.2 ng/mL
== END | disposition home or self-care (01) ==
LOC: LAB 05:48
PROVIDERS: Physician Assistant Medical; PCP Internal Medicine; Referring Provider Internal Medicine; Visit Provider Internal Medicine
DX: Z12.5 Encounter for screening for malignant neoplasm of prostate (principal); E11.22 Type 2 diabetes mellitus with diabetic chronic kidney disease; N18.30 Chronic kidney disease, stage 3 unspecified; E78.1 Pure hyperglyceridemia; I65.23 Occlusion and stenosis of bilateral carotid arteries; Z95.5 Presence of coronary angioplasty implant and graft; E55.9 Vitamin D deficiency, unspecified
CPT/HCPCS: 36415; 80053; 80061; 82248; 82306; 84153; 84443; 85025; G0103

== ENCOUNTER → 2023-11-19 | Outpatient (CLI) | payer MEDICARE, OTHER, SELFPAY ==
--- OUTSIDE RECORDS SUMMARY | 2023-11-19 05:52 | XMS RPT_ITS | CCD ---
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 Name Role Phone Eloy Martinez MD Unavailable [...] Sign Value Performing Clinician Facility NEGATED: Highlighted [id number] 13:39-0400 Body height 182.88 cm Nisha Brandon [facility] Work Phone: NEGATED: Highlighted [id number] 13:39-0400 Body height 183 cm Nisha Brandon [employer] [facility] Work Phone: NEGATED: Highlighted [id number] 13:39-0400 Body mass index (BMI) [Ratio] 23.68 kg/m2 Nisha Brandon [employer] [facility] Work Phone: NEGATED: Highlighted [id number] 13:39-0400 Body weight 78.93 kg Nisha Taylor [employer] [facility] Work Phone: NEGATED: Highlighted [id number] 13:39-0400 Body weight 79 kg Nisha Taylor [employer] [facility] Work Phone: Encounters Encounter Date Encounter Type Care Provider Facility Start: 02-09-2022 End: 02-09-2022 ambulatory Maria Elena Damian PT [facility] Physical Therapy Procedures Date Procedure Procedure Detail [...] 12-27-2021 Radex shoulder complete minimum 2 views lEoy Martinez MD Work Phone: Start: 12-27-2021 End: [...] VACCINE (4 - Booster for Pfizer series) [facility] Start: 01-15-2022 COVID-19 VACCINE (2 - Pfizer 3-dose series) COVID-19 VACCINE (2 - Pfizer 3-dose series) [facility] Start: 12-27-2021 End: 12-27-2021 Patient encounter procedure Appointment [facility] Work Phone: Start: 09-16-2021 ADVANCE DIRECTIVE DISCUSSION ADVANCE DIRECTIVE DISCUSSION [facility] Start: 2015 PNEUMOCOCCAL: 65+ (1 - PCV) PNEUMOCOCCAL: 65+ (1 - PCV) [facility] Start: 2015 PNEUMOVAX AGE 65 AND OVER WITH 5YR LOOKBACK (#1) PNEUMOVAX AGE 65 AND OVER WITH 5YR LOOKBACK (#1) [facility] Start: 2000 SHINGRIX VACCINE (1 of 2) SHINGRIX VACCINE (1 of 2) [facility] Start: 1995 COLOGUARD (FIT-DNA) COLOGUARD (FIT-DNA) [facility] Start: 1995 Colonoscopy COLONOSCOPY [facility] Start: 1995 COLORECTAL CANCER SCREENING COLORECTAL CANCER SCREENING [facility] Start: [address] COLONOGRAPHY [facility] Start: 1995 DIABETES SCREEN DIABETES SCREEN [facility] Start: 1995 FECAL OCCULT BLOOD FECAL OCCULT BLOOD [facility] Start: 1995 SIGMOIDOSCOPY SIGMOIDOSCOPY [facility] Start: 1985 LIPID SCREEN LIPID SCREEN [facility] Start: 1969 Urine microalbumin profile DTAP,TDAP,TD (1 - Tdap) [facility] Start: 1968 HEPATITIS C SCREENING HEPATITIS C SCREENING [facility] Start: 1962 Adult depression screening assessment DEPRESSION SCREENING [facility] Payers Date Payer Category Payer Unknown [employer] SUPPLEMENT [id number] 2017-Present [phone] [id number] [place], [place] [id number] [address] [id number] 2015 Medicare MEDICARE MEDICAR E A AND B [id number] 2015-Present [phone] [place] [address] Medicare [id number] Social History Date Type Detail Facility Tobacco smoking status MOIS Tobacco smoking consumption unknown [facility] Start: 1950 Sex Assigned At Male [facility] Start: 12-17-2021 End: 12-27-2021 Exposure to SARS-CoV-2 (event) Not sure [facility] NEGATED: Highlighted rowStart: 12-27-2021 End: 12-27-2021 Alcohol use Alcohol use [facility] Work Phone: NEGATED: Highlighted rowStart: 12-27-2021 End: 12-27-2021 Details of drug misuse behavior Details of drug misuse behavior [facility] Work Phone: NEGATED: Highlighted rowStart: 12-27-2021 End: 12-27-2021 Assertion Former smoker [facility] Work Phone: Clinical Notes 12-28-2021 to 02-09-2022 Maria Elena Damian, PT - 02/09/2022 9:33 AM EDNaina Damian, PT - 02/02/2022 9:31 AM EDNaina Damian, PT - 01/26/2022 8:41 AM Chelsi Damian, PT - 01/19/2022 9:28 AM EDT Note Date & Type Note Facility 02-09-2022 Note HNO ID: [id number] Author: Maria Elena Damian PT Service: ? [...] OF CARE PLAN OF CARE UPDATE: Assessment: Maribell Davies is discontinued from Physical Therapy services due to goal achievement and maximal benefit.. Patient was seen for 5 visits from Start of Care Date: 12/28/21 to 02/09/2022 and treatment included: Therapeutic activities and Self-custodial management. Goals for Episode of Care: created on 12/28/21 through 02/08/22 Goals updated on 01/19/2022 Goals updated on 02/02/2022 through 03/16/22 Goals updated on 02/09/2022. Sherman in home exercise program. -- MET Patient will decrease pain to 1-2/10 with functional activities to allow patient to improve tolerance with dressing upper body and yard work activities that involve lifting. -- MET Patient will increase active ROM of right shoulder flexion, scaption, and abduction to 170 or greater to allow pt to to improve performance of ADLs. -- PARTIALLY MET Perform donning and doffing upper body jacket and lifting items #50 or less with B upper extremities with decreased report of symptoms/pain in 6 Weeks. -- MET Perform sleeping 6-8 hours without interruption due to R shoulder pain. -- MET Increased strength of R serratus anterior, lower trapezius, supraspinatus, and biceps to 4/5 MMT. -- MET Improve postural awareness. -- PARTIALLY MET Patient Goals: don/doff jacket without assistance and return to yard work tasks without limitation due to R shoulder pain -- MET SUBJECTIVE: Patient Reason for Visit: Pt. denies pain today.. Pain: Pain Pain Level: 0 Pain Location: Shoulder - Right Description: Tightness Frequency: With movement Post Treatment Pain Post Treatment Pain Location: Shoulder - Right Post Treatment Pain Description: Tightness PROMIS Scales Higher is Better 12/27/2021 GH Physical - Score 44.9 (Good) GH Physical - Percentile 31 % GH Mental - Score 67.6 (Excellent) GH Mental - Percentile 96 % T-scores: mean of general population = 50. 5 points is clinically meaningfully difference Percentiles provide an indication of how the patient's score ranks in relation to the general population. Higher percentile rankings indicate better function/quality of life. 50th percentile is the average of the general population and indicates half of respondents had a worse score. T-scores: mean of general population = 50. 5 points is clinically meaningfully difference Percentiles provide an indication of how the patient's score ranks in relation to the general population. Higher percentile rankings indicate better function/quality of life. 50th percentile is the average of the general population and indicates half of respondents had a worse score. OBJECTIVE MEASURES WITH LEVEL OF FUNCTION: UE AROM R Shoulder Flex: 155 Degrees R Shoulder ABduction: 170 Degrees R Shoulder Internal Rotation (Functional): T12 R Shoulder External Rotation (Functional): T1 L Shoulder Internal Rotation (Functional): T8 L Shoulder External Rotation (Functional): T1 TREATMENT: Therapeutic Exercise: 2: *R shoulder IR stretch with towel 30 sec 3x 3: AROM reaching for numbers standing 2' from wall #1-5 5x each number RUE 4: GTB B shoulder scapular retraction 3x12 5: *ER and IR GTB 3x15 RUE 6: *GTB issued 7: mid rows 2x15 8: body blade IR/ER RUE shoulder add 0 3x30 sec 9: body blade at side scapular elevation/depression 3x30 sec each Skilled Intervention: Patient was educated in proper exercise technique and purpose for exercises. Reviewed and educated patient on additions/changes for home exercise program as above (*). Skilled judgment was provided in selection of appropriate interventions. Provided written instruction for home exercise program to facilitate proper performance and compliance. Correct performance of therapeutic exercises was facilitated with verbal, visual and tactile cuing. Additional time necessary for assessing progress toward goals due to discharge today. Educated patient on rationale for performing exercises in regards to decreasing fatigue , increase ease of ADL and ROM and function . Patient education as noted. Billing Therapeutic Exercise Treatment Minutes: 30 Total Treatment Time Minutes (timed/untimed): 30 Maria Elena Damian, PT [facility] 02-09-2022 History of Present illness Narrative Episode Visit Count: 5 Therapist That Will Oversee The Plan Of Care: Maria Elena Damian Start of Care Date: 12/28/21 Onset Date: 12/28/14 Plan of Care Certification Date: 02/02/22 Next Certification Due Date: 03/09/22 REHABILITATION AND SPORTS THERAPY PHYSICAL THERAPY DISCONTINUANCE OF CARE PLAN OF CARE UPDATE: Assessment: Maribell Davies is discontinued from Physical Therapy services due to goal achievement and maximal benefit.. Patient was seen for 5 visits from Start of Care Date: 12/28/21 to 02/09/2022 and treatment included: Therapeutic activities and Self-custodial management. Goals for Episode of Care: created on 12/28/21 through 02/08/22 Goals updated on 01/19/2022 Goals updated on 02/02/2022 through 03/16/22 Goals updated on 02/09/2022. Sherman in home exercise program. -- MET Patient will decrease pain to 1-2/10 with functional activities to allow patient to improve tolerance with dressing upper body and yard work activities that involve lifting. -- MET Patient will increase active ROM of right shoulder flexion, scaption, and abduction to 170 or greater to allow pt to to improve performance of ADLs. -- PARTIALLY MET Perform donning and doffing upper body jacket and lifting items #50 or less with B upper extremities with decreased report of symptoms/pain in 6 Weeks. -- MET Perform sleeping 6-8 hours without interruption due to R shoulder pain. -- MET Increased strength of R serratus anterior, lower trapezius, supraspinatus, and biceps to 4/5 MMT. -- MET Improve postural awareness. -- PARTIALLY MET Patient Goals: don/doff jacket without assistance and return to yard work tasks without limitation due to R shoulder pain -- MET SUBJECTIVE: Patient Reason for Visit: Pt. denies pain today.. Pain: Pain Pain Level: 0 Pain Location: Shoulder - Right Description: Tightness Frequency: With movement Post Treatment Pain Post Treatment Pain Location: Shoulder - Right Post Treatment Pain Description: Tightness PROMIS Scales Higher is Better 12/27/2021 GH Physical - Score 44.9 (Good) GH Physical - Percentile 31 % GH Mental - Score 67.6 (Excellent) GH Mental - Percentile 96 % T-scores: mean of general population = 50. 5 points is clinically meaningfully difference Percentiles provide an indication of how the patient's score ranks in relation to the general population. Higher percentile rankings indicate better function/quality of life. 50th percentile is the average of the general population and indicates half of respondents had a worse score. T-scores: mean of general population = 50. 5 points is clinically meaningfully difference Percentiles provide an indication of how the patient's score ranks in relation to the general population. Higher percentile rankings indicate better function/quality of life. 50th percentile is the average of the general population and indicates half of respondents had a worse score. OBJECTIVE MEASURES WITH LEVEL OF FUNCTION: UE AROM R Shoulder Flex: 155 Degrees R Shoulder ABduction: 170 Degrees R Shoulder Internal Rotation (Functional): T12 R Shoulder External Rotation (Functional): T1 L Shoulder Internal Rotation (Functional): T8 L Shoulder External Rotation (Functional): T1 TREATMENT: Therapeutic Exercise: 2: *R shoulder IR stretch with towel 30 sec 3x 3: AROM reaching for numbers standing 2' from wall #1-5 5x each number RUE 4: GTB B shoulder scapular retraction 3x12 5: *ER and IR GTB 3x15 RUE 6: *GTB issued 7: mid rows 2x15 8: body blade IR/ER RUE shoulder add 0 3x30 sec 9: body blade at side scapular elevation/depression 3x30 sec each Skilled Intervention: Patient was educated in proper exercise technique and purpose for exercises. Reviewed and educated patient on additions/changes for home exercise program as above (*). Skilled judgment was provided in selection of appropriate interventions. Provided written instruction for home exercise program to facilitate proper performance and compliance. Correct performance of therapeutic exercises was facilitated with verbal, visual and tactile cuing. Additional time necessary for assessing progress toward goals due to discharge today. Educated patient on rationale for performing exercises in regards to decreasing fatigue , increase ease of ADL and ROM and function . Patient education as noted. Billing Therapeutic Exercise Treatment Minutes: 30 Total Treatment Time Minutes (timed/untimed): 30 Maria Elena Damian PT documented in this encounter [facility] 02-02-2022 Note HNO ID: [id number] Author: Maria Elena Damian PT Service: ? Author Type: Physical Therapist Type: Progress Notes Filed: 02/02/2022 3:25 PM Note Text: Episode Visit Count: 4 Therapist That Will Oversee The Plan Of Care: Maria Elena Damian Start of Care Date: 12/28/21 Onset Date: 12/28/14 Plan of Care Certification Date: 02/02/22 Next Certification Due Date: 03/09/22 Patient Identified by Name and Date of : Yes REHABILITATION AND SPORTS THERAPY PHYSICAL THERAPY PROGRESS REPORT PLAN OF CARE UPDATE: Assessment: Maribell Davies demonstrates significant improvement in lifting, working, reaching behind back, reaching overhead, pulling and pushing . He hasprogressed toward goals. Patient continues to present with impairments in independence in exercise, overall function and strength that interfere with . Current prognosis is Excellent due to: good support system/ coping skills;positive past response to therapy;current objective clinical presentation;good overall health status . He will benefit from continued skilled therapy services to meet the updated goals for this plan of care as noted below. Goals for Episode of Care: created on 12/28/21 through 02/08/22 Goals updated on 01/19/2022 Goals updated on 02/02/2022 through 03/16/22 Sherman in home exercise program. -- MET Patient will decrease pain to 1-2/10 with functional activities to allow patient to improve tolerance with dressing upper body and yard work activities that involve lifting. -- MET Patient will increase active ROM of right shoulder flexion, scaption, and abduction to 170 or greater to allow pt to to improve performance of ADLs. -- PROGRESSING Perform donning and doffing upper body jacket and lifting items #50 or less with B upper extremities with decreased report of symptoms/pain in 6 Weeks. -- PROGRESSING Perform sleeping 6-8 hours without interruption due to R shoulder pain. -- PROGRESSING Increased strength of R serratus anterior, lower trapezius, supraspinatus, and biceps to 4/5 MMT. -- PROGRESSING Improve postural awareness. -- PROGRESSING Patient Goals: don/doff jacket without assistance and return to yard work tasks without limitation due to R shoulder pain -- PROGRESSING Planned Interventions, Frequency, and Duration: 1x/week, 4 weeks Total Number of Visits Planned: 4 Patient to be seen for Therapeutic exercise ([id number]) PLAN FOR NEXT VISIT: Continued PT visits 1x/week for strengthening progression. Add TIY next visit with light free weight. SUBJECTIVE: Patient Reason for Visit: Pt. reports no pain with ADLs or yard work. HEP is going well.. Pain: Pain Pain Level: 0 Pain Location: Shoulder - Right Description: Tightness Frequency: With movement Post Treatment Pain Post Treatment Pain Level: 0 Post Treatment Pain Location: Shoulder - Right Post Treatment Pain Description: Tightness PROMIS Scales Higher is Better 12/27/2021 GH Physical - Score 44.9 (Good) GH Physical - Percentile 31 % GH Mental - Score 67.6 (Excellent) GH Mental - Percentile 96 % T-scores: mean of general population = 50. 5 points is clinically meaningfully difference Percentiles provide an indication of how the patient's score ranks in relation to the general population. Higher percentile rankings indicate better function/quality of life. 50th percentile is the average of the general population and indicates half of respondents had a worse score. T-scores: mean of general population = 50. 5 points is clinically meaningfully difference Percentiles provide an indication of how the patient's score ranks in relation to the general population. Higher percentile rankings indicate better function/quality of life. 50th percentile is the average of the general population and indicates half of respondents had a worse score. OBJECTIVE MEASURES WITH LEVEL OF FUNCTION: UE AROM R Shoulder Flex: 156 Degrees R Shoulder ABduction: 175 Degrees R Shoulder Internal Rotation (Functional): L1 R Shoulder External Rotation (Functional): C7 L Shoulder Flex: 161 Degrees L Shoulder ABduction: 170 Degrees L Shoulder Internal Rotation (Functional): T8 L Shoulder External Rotation (Functional): T1 TREATMENT: Therapeutic Exercise: 1: *valentin AAROM flexion and abduction 2 sets 10-12 reps, 3x/day 5 sec hold 2: *R shoulder IR stretch with towel 30 sec 3x 3: AROM reaching for numbers standing 2' from wall #1-5 5x each number RUE 4: GTB B shoulder scapular retraction 3x12 5: *ER and IR YTB 3x12 RUE 6: body blade IR/ER oscillations 3x30 sec each 7: wand IR and ER isometric 5x10 sec hold 8: B shoulder 0 adduction, 90 elbow flexion, neutral ER 3x30 sec GTB (modified to wand isometric hold) 9: *YTB issued 10: *row exercises to be performed with OTB given last visit, ER/IR exercises to be performed with YTB issued today 11: body plade BUE retraction/protraction 3x30 sec 12: body blade 0 abd shoulder, scapular elev (more content not included)... [facility] 02-02-2022 History of Present illness Narrative Episode Visit Count: 4 Therapist That Will Oversee The Plan Of Care: Maria Elena Damian Start of Care Date: 12/28/21 Onset Date: 12/28/14 Plan of Care Certification Date: 12/28/21 Next Certification Due Date: 02/01/22 REHABILITATION AND SPORTS THERAPY PHYSICAL THERAPY TREATMENT NOTE ASSESSMENT: Maribell Davies tolerated the session with no issues. He demonstrated improvements in shoulder AROM without complaints of pain with all exercises today. The patient will continue to benefit from ongoing skilled physical therapy to progress toward set goals. Current Frequency: 1x/week Planned Treatment Interventions: Therapeutic exercise ([id number]) PLAN FOR NEXT VISIT: PN next visit, possible d/c SUBJECTIVE: Patient Reason for Visit: Pt. reports no pain with ADLs or yard work. HEP is going well. Pain: Pain Pain Level: 0 Pain Location: Shoulder - Right Description: Tightness Frequency: With movement Post Treatment Pain Post Treatment Pain Level: 0 Post Treatment Pain Location: Shoulder - Right Post Treatment Pain Description: Tightness OBJECTIVE MEASURES WITH LEVEL OF FUNCTION: UE AROM R Shoulder Flex: 156 Degrees R Shoulder ABduction: 175 Degrees R Shoulder Internal Rotation (Functional): L1 R Shoulder External Rotation (Functional): C7 L Shoulder Flex: 161 Degrees L Shoulder ABduction: 170 Degrees L Shoulder Internal Rotation (Functional): T8 L Shoulder External Rotation (Functional): T1 TREATMENT: Therapeutic Exercise: 1: *valentin AAROM flexion and abduction 2 sets 10-12 reps, 3x/day 5 sec hold 2: *R shoulder IR stretch with towel 30 sec 3x 3: AROM reaching for numbers standing 2' from wall #1-5 5x each number RUE 4: GTB B shoulder scapular retraction 3x12 5: *ER and IR YTB 3x12 RUE 6: body blade IR/ER oscillations 3x30 sec each 7: wand IR and ER isometric 5x10 sec hold 8: B shoulder 0 adduction, 90 elbow flexion, neutral ER 3x30 sec GTB (modified to wand isometric hold) 9: *YTB issued 10: *row exercises to be performed with OTB given last visit, ER/IR exercises to be performed with YTB issued today 11: body plade BUE retraction/protraction 3x30 sec 12: body blade 0 abd shoulder, scapular elevation/depression oscillations 3x30 sec each UE Skilled Intervention: Patient was educated in proper exercise technique and purpose for exercises. Reviewed and educated patient on additions/changes for home exercise program as above (*). Skilled judgment was provided in selection of appropriate interventions. Provided written instruction for home exercise program to facilitate proper performance and compliance. Correct performance of therapeutic exercises was facilitated with verbal, visual and tactile cuing. Additional time necessary for providing updated HEP due to adding IR/and ER with YTB resistance. Educated patient on rationale for performing exercises in regards to decreasing fatigue , increase ease of ADL and ROM and function . Patient education as noted. Billing Therapeutic Exercise Treatment Minutes: 40 Total Treatment Time Minutes (timed/untimed): 40 Maria Elena Damian PT documented in this encounter [facility] 01-26-2022 Note HNO ID: [id number] Author: Maria Elena Damian PT Service: ? Author Type: Physical Therapist Type: Progress Notes Filed: 01/26/2022 9:15 AM Note Text: Episode Visit Count: 3 Therapist That Will Oversee The Plan Of Care: Maria lEena Damian Start of Care Date: 12/28/21 Onset Date: 12/28/14 Plan of Care Certification Date: 12/28/21 Next Certification Due Date: 02/01/22 REHABILITATION AND SPORTS THERAPY PHYSICAL THERAPY TREATMENT NOTE ASSESSMENT: Maribell Davies tolerated the session with no issues. He demonstrated improvements in AROM tolerance and denied pain with active reaching over head activity today. Pt. Does demonstrate difficulty with AAROM and theraband resisted AROM ER with the shoulder at 0 degrees of abduction. The patient will continue to benefit from ongoing skilled physical therapy to progress toward set goals. Current Frequency: 1x/week Planned Treatment Interventions: Therapeutic exercise ([id number]) PLAN FOR NEXT VISIT: SUBJECTIVE: Patient Reason for Visit: Pt. reports his strength is much better. He has been released by his doctor to return to yard work activities. Pain: Pain Pain Level: 0 Pain Location: Shoulder - Right Description: Tightness Frequency: With movement Post Treatment Pain Post Treatment Pain Location: Shoulder - Right Post Treatment Pain Description: Tightness OBJECTIVE MEASURES WITH LEVEL OF FUNCTION: TREATMENT: Therapeutic Exercise: 1: *valentin AAROM flexion and abduction 2 sets 10-12 reps, 3x/day 5 sec hold 2: *OTB IR 2x12 RUE 3: OTB B shoulder scapular retraction 3x12 4: OTB B shoulder extension mid rows 3x12 5: ABCs full AROM 1-26th letters RUE 6: OTB tricep extension 2x12 7: AROM reaching for numbers standing 2' from wall #1-5 5x each number RUE 8: AAROM wand flexion, scaption, and abduction 1x10 each 9: AAROM ER and IR 1x10 each 10: *YTB ER 2x12 each RUE Skilled Intervention: Patient was educated in proper exercise technique and purpose for exercises. Reviewed and educated patient on additions/changes for home exercise program as above (*). Skilled judgment was provided in selection of appropriate interventions. Provided written instruction for home exercise program to facilitate proper performance and compliance. Correct performance of therapeutic exercises was facilitated with verbal, visual and tactile cuing. Additional time necessary for intermittent cues due to correction of technique. Educated patient on rationale for performing exercises in regards to decreasing fatigue , increase ease of ADL and ROM and function . Patient education as noted. Billing Therapeutic Exercise Treatment Minutes: 30 Total Treatment Time Minutes (timed/untimed): 30 [facility] [facility] History of Present illness Narrative Episode Visit Count: 3 Therapist That Will Oversee The Plan Of Care: Maria Elena Damian Start of Care Date: 12/28/21 Onset Date: 12/28/14 Plan of Care Certification Date: 12/28/21 Next Certification Due Date: 02/01/22 REHABILITATION AND SPORTS THERAPY PHYSICAL THERAPY TREATMENT NOTE ASSESSMENT: Maribell Davies tolerated the session with no issues. He demonstrated improvements in AROM tolerance and denied pain with active reaching over head activity today. Pt. Does demonstrate difficulty with AAROM and theraband resisted AROM ER with the shoulder at 0 degrees of abduction. The patient will continue to benefit from ongoing skilled physical therapy to progress toward set goals. Current Frequency: 1x/week Planned Treatment Interventions: Therapeutic exercise (82528) PLAN FOR NEXT VISIT: SUBJECTIVE: Patient Reason for Visit: Pt. reports his strength is much better. He has been released by his doctor to return to yard work activities. Pain: Pain Pain Level: 0 Pain Location: Shoulder - Right Description: Tightness Frequency: With movement Post Treatment Pain Post Treatment Pain Location: Shoulder - Right Post Treatment Pain Description: Tightness OBJECTIVE MEASURES WITH LEVEL OF FUNCTION: TREATMENT: Therapeutic Exercise: 1: *valentin AAROM flexion and abduction 2 sets 10-12 reps, 3x/day 5 sec hold 2: *OTB IR 2x12 RUE 3: OTB B shoulder scapular retraction 3x12 4: OTB B shoulder extension mid rows 3x12 5: ABCs full AROM 1-26th letters RUE 6: OTB tricep extension 2x12 7: AROM reaching for numbers standing 2' from wall #1-5 5x each number RUE 8: AAROM wand flexion, scaption, and abduction 1x10 each 9: AAROM ER and IR 1x10 each 10: *YTB ER 2x12 each RUE Skilled Intervention: Patient was educated in proper exercise technique and purpose for exercises. Reviewed and educated patient on additions/changes for home exercise program as above (*). Skilled judgment was provided in selection of appropriate interventions. Provided written instruction for home exercise program to facilitate proper performance and compliance. Correct performance of therapeutic exercises was facilitated with verbal, visual and tactile cuing. Additional time necessary for intermittent cues due to correction of technique. Educated patient on rationale for performing exercises in regards to decreasing fatigue , increase ease of ADL and ROM and function . Patient education as noted. Billing Therapeutic Exercise Treatment Minutes: 30 Total Treatment Time Minutes (timed/untimed): 30 Maria Elena Damian PT documented in this encounter [facility] 01-19-2022 Note HNO ID: [id number] Author: Maria Elena Damian PT Service: ? Author Type: Physical Therapist Type: Progress Notes Filed: 01/19/2022 10:07 AM Note Text: Episode Visit Count: 2 Therapist That Will Oversee The Plan Of Care: Maria Elena Damian Start of Care Date: 12/28/21 Onset Date: 12/28/14 Plan of Care Certification Date: 12/28/21 Next Certification Due Date: 02/01/22 REHABILITATION AND SPORTS THERAPY PHYSICAL THERAPY PROGRESS REPORT PLAN OF CARE UPDATE: Assessment: Maribell Davies demonstrates moderate improvement in reaching behind back, reaching overhead and use hand with arm at shoulder level. He hasprogressed toward goals. Patient continues to present with impairments in ADL's, overall function, patient reported outcome measures and strength that interfere with lifting;throwing;reaching behind back;reaching overhead;use hand with arm at shoulder level . Current prognosis is Excellent due to: positive past response to therapy;within-session changes;good support system/ coping skills;good overall health status;current objective clinical presentation . He will benefit from continued skilled therapy services to meet the updated goals for this plan of care as noted below. Goals for Episode of Care: created on 12/28/21 through 02/08/22 Goals updated on 01/19/2022. [place] in home exercise program. -- MET Patient will decrease pain to 1-2/10 with functional activities to allow patient to improve tolerance with dressing upper body and yard work activities that involve lifting. -- PROGRESSING Patient will increase active ROM of right shoulder flexion, scaption, and abduction to 170 or greater to allow pt to to improve performance of ADLs. -- PROGRESSING Perform donning and doffing upper body jacket and lifting items #50 or less with B upper extremities with decreased report of symptoms/pain in 6 Weeks. -- PROGRESSING Perform sleeping 6-8 hours without interruption due to R shoulder pain. -- PROGRESSING Increased strength of R serratus anterior, lower trapezius, supraspinatus, and biceps to 4/5 MMT. -- PROGRESSING Improve postural awareness. -- PROGRESSING Patient Goals: don/doff jacket without assistance and return to yard work tasks without limitation due to R shoulder pain -- PROGRESSING Patient Goals: improve functional UE strength to do yard work Planned Interventions, Frequency, and Duration: 1x/week, 6 weeks Total Number of Visits Planned: 6 Patient to be seen for Therapeutic exercise ([id number]);Self-custodial management (44432);Therapeutic activities (10675);Patient/Family/Caregive r Education;Manual therapy (26412) SUBJECTIVE: Patient Reason for Visit: Pt. reports that he was admitted into the hospital for PNA 01/02/22 and d/c home after 2 days. Pt. was then readmitted and discharged home again. Most recently, he was in the ED for SOB 01/08/22. He has lost 20 pounds and feels very week. He is able to don and doff his jacket. He has not been able to do yardwork due to activity tolerance and reports he is at least 3 weeks away from the ability to do that.. Patient Goals: improve functional UE strength to do yard work Functional Limitations: lifting;throwing;reaching behind back;reaching overhead;use hand with arm at shoulder level Pain: Pain Pain Level: 0 Pain Location: Shoulder - Right Description: Tightness Frequency: With movement Post Treatment Pain Post Treatment Pain Level: 0 Post Treatment Pain Location: Shoulder - Right Post Treatment Pain Description: Tightness PROMIS Scales Higher is Better 12/27/2021 GH Physical - Score 44.9 (Good) GH Physical - Percentile 31 % GH Mental - Score 67.6 (Excellent) GH Mental - Percentile 96 % T-scores: mean of general population = 50. 5 points is clinically meaningfully difference Percentiles provide an indication of how the patient's score ranks in relation to the general population. Higher percentile rankings indicate better function/quality of life. 50th percentile is the average of the general population and indicates half of respondents had a worse score. T-scores: mean of general population = 50. 5 points is clinically meaningfully difference Percentiles provide an indication of how the patient's score ranks in relation to the general population. Higher percentile rankings indicate better function/quality of life. 50th percentile is the average of the general population and indicates half of respondents had a worse score. OBJECTIVE MEASURES WITH LEVEL OF FUNCTION: UE AROM R Shoulder Flex: 160 Degrees R Shoulder ABduction: 172 Degrees R Shoulder Internal Rotation (Functional): L1 R Shoulder External Rotation (Functional): 3rd MCP R hand at C7 central spinous process TREATMENT: Therapeutic Exercise: 1: *YTB issued 2: *OTB B shoulder extension mid rows 3x12 3: *OTB B shoulder scapular retraction 3x12 4: *seated scapular retraction 2x20 Skilled Intervention: Patient was educ (more content not included)... [facility] 01-19-2022 History of Present illness Narrative Episode Visit Count: 2 Therapist That Will Oversee The Plan Of Care: Maria Elena Damian Start of Care Date: 12/28/21 Onset Date: 12/28/14 Plan of Care Certification Date: 12/28/21 Next Certification Due Date: 02/01/22 REHABILITATION AND SPORTS THERAPY PHYSICAL THERAPY PROGRESS REPORT PLAN OF CARE UPDATE: Assessment: Maribell Davies demonstrates moderate improvement in reaching behind back, reaching overhead and use hand with arm at shoulder level. He hasprogressed toward goals. Patient continues to present with impairments in ADL's, overall function, patient reported outcome measures and strength that interfere with lifting;throwing;reaching behind back;reaching overhead;use hand with arm at shoulder level . Current prognosis is Excellent due to: positive past response to therapy;within-session changes;good support system/ coping skills;good overall health status;current objective clinical presentation . He will benefit from continued skilled therapy services to meet the updated goals for this plan of care as noted below. Goals for Episode of Care: created on 12/28/21 through 02/08/22 Goals updated on 01/19/2022. [place] in home exercise program. -- MET Patient will decrease pain to 1-2/10 with functional activities to allow patient to improve tolerance with dressing upper body and yard work activities that involve lifting. -- PROGRESSING Patient will increase active ROM of right shoulder flexion, scaption, and abduction to 170 or greater to allow pt to to improve performance of ADLs. -- PROGRESSING Perform donning and doffing upper body jacket and lifting items #50 or less with B upper extremities with decreased report of symptoms/pain in 6 Weeks. -- PROGRESSING Perform sleeping 6-8 hours without interruption due to R shoulder pain. -- PROGRESSING Increased strength of R serratus anterior, lower trapezius, supraspinatus, and biceps to 4/5 MMT. -- PROGRESSING Improve postural awareness. -- PROGRESSING Patient Goals: don/doff jacket without assistance and return to yard work tasks without limitation due to R shoulder pain -- PROGRESSING Patient Goals: improve functional UE strength to do yard work Planned Interventions, Frequency, and Duration: 1x/week, 6 weeks Total Number of Visits Planned: 6 Patient to be seen for Therapeutic exercise (72852);Self-custodial management ([id number]);Therapeutic activities (06022);Patient/Family/Caregive r Education;Manual therapy (75196) SUBJECTIVE: Patient Reason for Visit: Pt. reports that he was admitted into the hospital for PNA 01/02/22 and d/c home after 2 days. Pt. was then readmitted and discharged home again. Most recently, he was in the ED for SOB 01/08/22. He has lost 20 pounds and feels very week. He is able to don and doff his jacket. He has not been able to do yardwork due to activity tolerance and reports he is at least 3 weeks away from the ability to do that.. Patient Goals: improve functional UE strength to do yard work Functional Limitations: lifting;throwing;reaching behind back;reaching overhead;use hand with arm at shoulder level Pain: Pain Pain Level: 0 Pain Location: Shoulder - Right Description: Tightness Frequency: With movement Post Treatment Pain Post Treatment Pain Level: 0 Post Treatment Pain Location: Shoulder - Right Post Treatment Pain Description: Tightness PROMIS Scales Higher is Better 12/27/2021 GH Physical - Score 44.9 (Good) GH Physical - Percentile 31 % GH Mental - Score 67.6 (Excellent) GH Mental - Percentile 96 % T-scores: mean of general population = 50. 5 points is clinically meaningfully difference Percentiles provide an indication of how the patient's score ranks in relation to the general population. Higher percentile rankings indicate better function/quality of life. 50th percentile is the average of the general population and indicates half of respondents had a worse score. T-scores: mean of general population = 50. 5 points is clinically meaningfully difference Percentiles provide an indication of how the patient's score ranks in relation to the general population. Higher percentile rankings indicate better function/quality of life. 50th percentile is the average of the general population and indicates half of respondents had a worse score. OBJECTIVE MEASURES WITH LEVEL OF FUNCTION: UE AROM R Shoulder Flex: 160 Degrees R Shoulder ABduction: 172 Degrees R Shoulder Internal Rotation (Functional): L1 R Shoulder External Rotation (Functional): 3rd MCP R hand at C7 central spinous process TREATMENT: Therapeutic Exercise: 1: *YTB issued 2: *OTB B shoulder extension mid rows 3x12 3: *OTB B shoulder scapular retraction 3x12 4: *seated scapular retraction 2x20 Skilled Intervention: Patient was educated in proper exercise technique and purpose for exercises. Reviewed and educated patient on additions/changes for home exercise program as above (*). Skilled judgment was provided in selection of appropriate interventions. Provided written instruction for home exercise program to facilitate proper performance and compliance. Correct performance of therapeutic exercises was facilitated with verbal, visual and tactile cuing. Additional time necessary for assessing pt. status due to recent hospitalization. Educated patient on rationale for performing exercises in regards to decreasing fatigue , increase ease of ADL and ROM and function . Patient education as noted. Self-M[facility] Management: 1: *continue wand exercises for stretching 1x./day. Strengthening with bands 1x/day in addition to stretching 2: *exercises with wand or theraband should never be painful 3: *progression of strengthening and how his recent hospitalization and symptoms may affect his progress Skilled Intervention: Skilled judgment in the selection of proper modification for activity of daily living/home management based on clinical presentation, deficits, and needs. Physical assistance was provided during education for modifications and patient safety. Educated the patient regarding recommendations and provided written instruction to facilitate compliance. Provided written instruction for activities of daily living techniques to facilitate proper performance and compliance. Reviewed patient specific diagnosis in relation to activities of daily living/home management. Activity progression based on professional judgement. Correct performance of home program was facilitated with verbal, visual and tactile cueing. Billing Therapeutic Exercise Treatment Minutes: 25 Self-Care/Home Management Treatment Minutes: 5 Total Treatment Time Minutes (timed/untimed): 30 Maria Elena Damian PT documented in this encounter [facility] 12-28-2021 Note HNO ID: [id number] Author: Maria Elena Damian PT Service: ? Author Type: Physical Therapist Type: Progress Notes Filed: 12/28/2021 12:29 PM Note Text: Episode Visit Count: 1 Therapist That Will Oversee The Plan Of Care: Maria Elena Damian Start of Care Date: 12/28/21 Onset Date: 12/28/14 Plan of Care Certification Date: 12/28/21 Next Certification Due Date: 02/01/22 Patient Identified by Name and Date of : Yes REHABILITATION AND SPORTS THERAPY PHYSICAL THERAPY EVALUATION PLAN OF CARE: Assessment: Maribell Davies presents with diagnosis of adhesive capsulitis of right shoulder that interferes with lifting;throwing;reaching behind back;reaching overhead;use hand with arm at shoulder level . He presents with impairments in flexibility, independence in exercise, joint mobility, overall function, patient reported outcome measures, range of motion and strength . Prognosis for therapy is Excellent due to: positive past response to therapy;within-session changes;good support system/ coping skills;good overall health status;current objective clinical presentation . He will benefit from skilled therapy services to meet the goals established for this plan of care as noted below. Goals for Episode of Care: created on 12/28/21 through 02/08/22 [place] in home exercise program. Patient will decrease pain to 1-2/10 with functional activities to allow patient to improve tolerance with dressing upper body and yard work activities that involve lifting. Patient will increase active ROM of right shoulder flexion, scaption, and abduction to 170 or greater to allow pt to to improve performance of ADLs. Perform donning and doffing upper body jacket and lifting items #50 or less with B upper extremities with decreased report of symptoms/pain in 6 weeks. Perform sleeping 6-8 hours without interruption due to R shoulder pain. Increased strength of R serratus anterior, lower trapezius, supraspinatus, and biceps to 4/5 MMT. Improve postural awareness. Patient Goals: don/doff jacket without assistance and return to yard work tasks without limitation due to R shoulder pain Planned Interventions, Frequency, and Duration: Current Frequency: 1x/week Duration: 6 weeks Total Number of Visits Planned: 6 Planned Treatment Interventions: Therapeutic exercise (26507);Self-custodial management (92130);Therapeutic activities (27484);Patient/Family/Caregive r Education;Manual therapy (05299) Patient demonstrates good understanding of plan of care and treatment. The above goals and plan of care were discussed and agreed upon by patient/family. SUBJECTIVE: Maribell Davies is a 71 year old male seen today for for chronic R shoulder pain over the past 7 years that has become worse. Pt. saw Dr. Martinez yesterday and had an injection to the R shoulder. Pt. reports relief and improved AROM without pain since this injection. Pt. goal for PT is to become independent with a HEP in order to restore and maintain functional mobility to do yard work tasks this summer. Pt. moved here from [place], [place] 6 months ago. Now lives at [facility]. Patient Goals: don/doff jacket without assistance and return to yard work tasks without limitation due to R shoulder pain Functional Limitations: lifting;throwing;reaching behind back;reaching overhead;use hand with arm at shoulder level Prior Level of Function: Independent without limitations Relevant History Past Relevant Medical Conditions: Cardiac;Diabetes;Hypertension;K idney Problems Past Relevant Surgical Conditions: Rotator Cuff Repair-Right Preferred Language: Yakut Right or Left Handed: Left Home Environment Patient Lives With: Spouse Assistance Available: 24 Hour Home Type: Apt/Condo Intake Information: Prescription present Previous Treatment: Injections? (aspirin) Falls Interview: No positive findings with falls interview Pain: Pain Pain Level: 0 Pain Location: Shoulder - Right Description: Tightness Frequency: With movement Post Treatment Pain Post Treatment Pain Level: 0 Post Treatment Pain Location: Shoulder - Right Post Treatment Pain Description: Tightness Post Treatment Symptoms: I think this is good. PROMIS Scales Higher is Better 12/27/2021 GH Physical - Score 44.9 (Good) GH Physical - Percentile 31 % GH Mental - Score 67.6 (Excellent) GH Mental - Percentile 96 % T-scores: mean of general population = 50. 5 points is clinically meaningfully difference Percentiles provide an indication of how the patient's score ranks in relation to the general population. Higher percentile rankings indicate better function/quality of life. 50th percentile is the average of the general population and indicates half of respondents had a worse score. T-scores: mean of general population = 50. 5 points is clinically meaningfully difference Percentiles provide an indication of how the patient's score ranks in relation to the (more content not included)... [facility] 12-28-2021 History of Present illness Narrative Episode Visit Count: 1 Therapist That Will Oversee The Plan Of Care: Maria Elena Damian Start of Care Date: 12/28/21 Onset Date: 12/28/14 Plan of Care Certification Date: 12/28/21 Next Certification Due Date: 02/01/22 Patient Identified by Name and Date of : Yes REHABILITATION AND SPORTS THERAPY PHYSICAL THERAPY EVALUATION PLAN OF CARE: Assessment: Maribell Davies presents with diagnosis of adhesive capsulitis of right shoulder that interferes with lifting;throwing;reaching behind back;reaching overhead;use hand with arm at shoulder level . He presents with impairments in flexibility, independence in exercise, joint mobility, overall function, patient reported outcome measures, range of motion and strength . Prognosis for therapy is Excellent due to: positive past response to therapy;within-session changes;good support system/ coping skills;good overall health status;current objective clinical presentation . He will benefit from skilled therapy services to meet the goals established for this plan of care as noted below. Goals for Episode of Care: created on 12/28/21 through 02/08/22 [place] in home exercise program. Patient will decrease pain to 1-2/10 with functional activities to allow patient to improve tolerance with dressing upper body and yard work activities that involve lifting. Patient will increase active ROM of right shoulder flexion, scaption, and abduction to 170 or greater to allow pt to to improve performance of ADLs. Perform donning and doffing upper body jacket and lifting items #50 or less with B upper extremities with decreased report of symptoms/pain in 6 weeks. Perform sleeping 6-8 hours without interruption due to R shoulder pain. Increased strength of R serratus anterior, lower trapezius, supraspinatus, and biceps to 4/5 MMT. Improve postural awareness. Patient Goals: don/doff jacket without assistance and return to yard work tasks without limitation due to R shoulder pain Planned Interventions, Frequency, and Duration: Current Frequency: 1x/week Duration: 6 weeks Total Number of Visits Planned: 6 Planned Treatment Interventions: Therapeutic exercise (17106);Self-custodial management (76327);Therapeutic activities (79762);Patient/Family/Caregive r Education;Manual therapy (92041) Patient demonstrates good understanding of plan of care and treatment. The above goals and plan of care were discussed and agreed upon by patient/family. SUBJECTIVE: Maribell Davies is a 71 year old male seen today for for chronic R shoulder pain over the past 7 years that has become worse. Pt. saw Dr. Martinez yesterday and had an injection to the R shoulder. Pt. reports relief and improved AROM without pain since this injection. Pt. goal for PT is to become independent with a HEP in order to restore and maintain functional mobility to do yard work tasks this summer. Pt. moved here from [place], [place] 6 months ago. Now lives at [facility]. Patient Goals: don/doff jacket without assistance and return to yard work tasks without limitation due to R shoulder pain Functional Limitations: lifting;throwing;reaching behind back;reaching overhead;use hand with arm at shoulder level Prior Level of Function: Independent without limitations Relevant History Past Relevant Medical Conditions: Cardiac;Diabetes;Hypertension;K idney Problems Past Relevant Surgical Conditions: Rotator Cuff Repair-Right Preferred Language: Yakut Right or Left Handed: Left Home Environment Patient Lives With: Spouse Assistance Available: 24 Hour Home Type: Apt/Condo Intake Information: Prescription present Previous Treatment: Injections (aspirin) Falls Interview: No positive findings with falls interview Pain: Pain Pain Level: 0 Pain Location: Shoulder - Right Description: Tightness Frequency: With movement Post Treatment Pain Post Treatment Pain Level: 0 Post Treatment Pain Location: Shoulder - Right Post Treatment Pain Description: Tightness Post Treatment Symptoms: I think this is good. PROMIS Scales Higher is Better 12/27/2021 GH Physical - Score 44.9 (Good) GH Physical - Percentile 31 % GH Mental - Score 67.6 (Excellent) GH Mental - Percentile 96 % T-scores: mean of general population = 50. 5 points is clinically meaningfully difference Percentiles provide an indication of how the patient's score ranks in relation to the general population. Higher percentile rankings indicate better function/quality of life. 50th percentile is the average of the general population and indicates half of respondents had a worse score. T-scores: mean of general population = 50. 5 points is clinically meaningfully difference Percentiles provide an indication of how the patient's score ranks in relation to the general population. Higher percentile rankings indicate better function/quality of life. 50th percentile is the average of the general population and indicates half of respondents had a worse score. OBJECTIVE MEASURES WITH LEVEL OF FUNCTION: Cognition Cognition: Follows Commands Posture / Alignment Posture: Forward head;Increased thoracic kyphosis R Shoulder Alignment: Elevated shoulder Shoulder Observations R Shoulder Palpation Tenderness: Comments (denies tenderness at this time) Sensation - Upper Extremity UE Light Touch Sensation: Grossly Intact Cervical Spine ROM Cervical ROM : Limitation AROM UE AROM L UE AROM: grossly WNL without symptoms R Shoulder Flex: 155 Degrees R Shoulder ABduction: 164 Degrees R Shoulder Internal Rotation (Functional): R PSIS R Shoulder External Rotation (Functional): vertex of the skull L Shoulder Flex: 180 Degrees L Shoulder ABduction: 180 Degrees L Shoulder Internal Rotation (Functional): L1 L Shoulder External Rotation (Functional): T4 UE Joint Mobility R Shoulder joint mobility: Hypomobile L Shoulder joint mobility: WNL Functional Strength Functional Strength: Lifting Education: Education Learning Preferences: Demonstration;Performance;Print ed Materials;Explanation Barriers: None Learning/educational needs: Posture;Home exercise program;Plan of Care Education Provided: Yes, see treatment interventions for education provided Education Provided To: Patient Education Mode/Type: Demonstration;Explanation/Discu ssion;Literature/Printed Materials;Performance Response to Education/Teach Back: States/Identifies;Return Demonstration TREATMENT: PT Treatment Interventions: Therapeutic Exercise;Self-Mcc Management Evaluation Evaluation Therapeutic Exercise: 1: *valentin AAROM flexion and abduction 3 sets 10-12 reps, 3x/day 5 sec hold 2: *wand AAROM flexion and abduction 3 sets 10-12 reps, 3x/day 5 sec hold 3: *wand AAROM IR and ER 3 sets 10-12 reps, 3x/day 5 sec hold 4: *wand AAROM presses 3 sets 10-12 reps, 3x/day 5 sec hold Skilled Intervention: Patient was educated in proper exercise technique and purpose for exercises. Reviewed and educated patient on additions/changes for home exercise program as above (*). Skilled judgment was provided in selection of appropriate interventions. Provided written instruction for home exercise program to facilitate proper performance and compliance. Correct performance of therapeutic exercises was facilitated with verbal, visual and tactile cuing. Additional time necessary for HEP hand out and technique correction due to initial evaluation. Educated patient on rationale for performing exercises in regards to decreasing fatigue , increase ease of ADL and ROM and function . Patient education as noted. Self-Mcc Management: 1: *postural education 2: *staying within pain free AAROM with stretches for HEP 3: *progression of POC, how exercises relate to pt. specific goals Skilled Intervention: Skilled judgment in the selection of proper modification for activity of daily living/home management based on clinical presentation, deficits, and needs. Physical assistance was provided during education for modifications and patient safety. Provided written instruction for activities of daily living techniques to facilitate proper performance and compliance. Reviewed patient specific diagnosis in relation to activities of daily living/home management. Activity progression based on professional judgement. Moderate verbal cues for maintaining neutral spine alignment. Instructed on proper lifting and carrying techniques RUE avoiding ranges of motion and weight of objects that cause increased symptoms. Correct performance of home program was facilitated with verbal, visual and tactile cueing. Billing * Evaluation Low Complexity: 1 Unit Therapeutic Exercise Treatment Minutes: 15 Self-Care/Home Management Treatment Minutes: 10 Total Treatment Time Minutes (timed/untimed): 45 Maria Elena Damian PT documented in this encounter [facility] Evaluation note There may be informa tion available, but it has not been provided by the sender. [facility] Work Phone: [facility] [place] [facility] Diagnosis Adhesive capsulitis of right shoulder Adhesive capsulitis of shoulder [facility] [place] [facility] Diagnosis Adhesive capsulitis of right shoulder Adhesive capsulitis of shoulder [facility] [place] [facility] Diagnosis Adhesive capsulitis of right shoulder Adhesive capsulitis of shoulder [facility] [place] [facility]* Diagnosis Adhesive capsulitis of right shoulder Adhesive capsulitis of shoulder [facility] Work Phone: Chief Complaint Chief Complaint Description Start Date right shoulder pain Preliminary chief co mplaint data, not yet signed by the author as of Advance Directives There may be information available, but it has not been provided by the sender. No Advanced Directives Records Found Family History There may be information available, but it has not been provided by the sender.No Family History Records Found Summary Purpose Additional Source Comments Reason for Visit (unrecogniz ed section and content) Specialty Diagnoses / Procedures Referred By Conttanner t Referred To Contact Physical Therapy / PHYSICAL THERAPY Diagnoses right shoulder pain Procedures NEW RS PT ORTH Eloy Fragoso [address] [place] [address] Kajal Logan, PT [address] [place] [address] Referral ID Status Reason Start Date Expiration Date V isits Requested Visits Authorized [id number] Authorized 09/16/2021 09/15/2022 99 99 Reason Comments Physical Therapy Reason Comments PT Progress Note Reason For Visit Description Start Date New - 1st visit with practice Preliminary reason f or visit data, not yet signed by the author as of right shoulder pain Reason Comments PT Eval Source Comments (unrecognize d section and content) In the event this informatio n is protected by the Federal Confidentiality of Alcohol and Drug Abuse Patient Records regulations: The Federal rules restrict any use of the information to criminally investigate or prosecute any alcohol or drug abuse patient.[facility] the event this information is protected by the Federal Confidentiality of Alcohol and Drug Abuse Patient Records regulations: The Federal rules restrict any use of the information to criminally investigate or prosecute any alcohol or drug abuse patient.[facility] the event this information is protected by the Federal Confidentiality of Alcohol and Drug Abuse Patient Records regulations: The Federal rules restrict any use of the information to criminally investigate or prosecute any alcohol or drug abuse patient.[facility] the event this information is protected by the Federal Confidentiality of Alcohol and Drug Abuse Patient Records regulations: The Federal rules restrict any use of the information to criminally investigate or prosecute any alcohol or drug abuse patient.[facility] the event this information is protected by the Federal Confidentiality of Alcohol and Drug Abuse Patient Records regulations: The Federal rules restrict any use of the information to criminally investigate or prosecute any alcohol or drug abuse patient.[facility] (unrecognized sect ion and content) No Status Records Found INFORMATION SOURCE (unrecogn ized section and content) FOR RECORDS PERTAINING TO PATIENTS WHO ARE OR HAVE BEEN ENROLLED IN A CHEMICAL DEPENDENCY/SUBSTANCEABUSE PROGRAM, SOME INFORMATION MAY BE OMITTED. This clinical summary was aggregated from multiple sources. Caution should be exercised in using it in the provision of clinical care. This summary normalizes information from multiple sources, and as a consequence, information in this document may materially change the coding, format and clinical context of patient data. In addition, data may be omitted in some cases. CLINICAL DECISIONS SHOULD BE BASED ON THE PRIMARY CLINICAL RECORDS. [facility]. provides no warranty or guarantee of the accuracy or completeness of information in this document.
[2023-11-19 07:12] LABS: Hematocrit 37.6 % (40-54); Hemoglobin 12.5 g/dL (13.0-16.5)
== END | disposition home or self-care (01) ==
LOC: LAB 05:50
PROVIDERS: PCP Internal Medicine; Referring Provider Internal Medicine; Visit Provider Internal Medicine
DX: D64.9 Anemia, unspecified (principal)
CPT/HCPCS: 36415; 85014; 85018

== ENCOUNTER 2023-12-03 05:23 | Day surgery (SDC) | payer MEDICARE, OTHER, SELFPAY ==
[2023-12-03] VITALS (10 sets, daily range): BP systolic 71–119; BP diastolic 44–66; PULSE 62–86; RESP 14–18; TEMP 35.6–36.1; O2SAT 95–100; BMI 21.7
[2023-12-03] MEDS: Lactated Ringers 1,000 ML 15 ML IV (05:59)
--- NOTE | 2023-12-03 06:06 | HP.PCM_ITS ---
History and Physical Date of Admission: 12/03/23 Visit Reasons: EGD/C-SCOPE DX ANEMIA Chief Complaint: egd/c-scope Reproducer Required: No Is patient in pain?: No Allergies No Known Allergies Allergy (Verified 11/22/23 13:41) Medications ascorbic acid (vitamin C) 500 mg tablet 500 mg PO DAILY 07/05/21 [History Confirmed 11/22/23] aspirin 81 mg tablet,delayed release (Adult Low Dose Aspirin) 81 mg PO DAILY 07/05/21 [History Confirmed 11/22/23] cyanocobalamin (vitamin B-12) 5,000 mcg disintegrating tablet 1,000 mcg PO DAILY Check with primary doctor 07/05/21 [History Confirmed 11/22/23] cholecalciferol (vitamin D3) 25 mcg (1,000 unit) tablet 25 mcg PO BID 07/20/21 [ History Confirmed 11/22/23] carvedilol 6.25 mg tablet 6.25 mg PO BID #180 tabs 03/29/23 [Rx Confirmed 11/22/23] blood sugar diagnostic (PlusFourSixuch Verio test strips) #100 ea 04/03/23 [Rx Confirmed 11/22/23] clopidogrel 75 mg tablet (Plavix) 75 mg PO DAILY #90 tabs 04/22/23 [Rx Confirmed 11/22/23] metformin 500 mg tablet 1,000 mg (2 x 500 mg) PO BID #180 tabs 04/24/23 [Rx Confirmed 11/22/23] amlodipine 5 mg tablet 5 mg PO DAILY #90 tabs 05/24/23 [Rx Confirmed 11/22/23] glimepiride 4 mg tablet 4 mg PO BID #90 tabs 05/30/23 [Rx Confirmed 11/22/23] atorvastatin 80 mg tablet 80 mg PO QHS #90 tabs 06/13/23 [Rx Confirmed 11/22/23] lisinopril 20 mg tablet 20 mg PO DAILY #90 tabs 06/13/23 [Rx Confirmed 11/22/23] benzonatate 200 mg capsule 200 mg PO TID PRN cough #20 caps 08/13/23 [Rx Confirmed 11/22/23] pen needle, diabetic 32 gauge x 1/4 (Comfort EZ Pen [place]) #100 ea 10/23/23 [Rx Confirmed 11/22/23] insulin glargine U-300 conc 300 unit/mL (1.5 mL) subcutaneous pen (Toujeo SoloStar U-300 Insulin) 36 unit (0.12 mL) subcut DAILY #4.5 mL 10/28/23 [Rx Confirmed 11/22/23] isosorbide mononitrate 30 mg tablet,extended release 24 hr 30 mg PO DAILY #90 tabs 10/31/23 [Rx Confirmed 11/22/23] PFSH Medical History Abnormal stress test Atherosclerotic heart disease of [place] coronary artery without angina pectoris Bilateral carotid artery stenosis BPH (benign prostatic hyperplasia) Cardiomyopathy, ischemic CKD (chronic kidney disease) stage 3, GFR 30-59 ml/min DDD (degenerative disc disease) Dyspnea on exertion Essential hypertension Hemorrhagic cerebrovascular accident (CVA) History of left heart catheterization (LHC) History of recent pneumonia Hypertriglyceridemia Multiple lacunar infarcts Presence of stent in coronary artery (~08/28/01) Pure hypercholesterolemia Right carotid artery occlusion Type 2 diabetes mellitus Surgical History History of arthroscopic surgery of shoulder History of laminectomy (~2007) History of left heart catheterization (LHC) (~06/01/22) Presence of coronary angioplasty implant and graft (~08/28/01) Family History Mother CAD (coronary artery disease) Diabetes Myocardial infarction, Onset Age: 48Father Diabetes Breast cancerBrother DiabetesBrother Cancer Prostate Social History household members: spouse Smoking Status: Former smoker alcohol intake: current details: occasional substance use type: does not use caffeine: Yes Type: tea Number of servings: 1 what type of physical activity do you participate in: none HPI HPI HPI: 73-year-old gentleman is being referred by Dr. Savanna Sinclair for surgical consultation regarding new onset mild anemia and a written compromise surgical consult recommendations will return to him. The patient is on multiple medications which include low-dose aspirin 81 mg and clopidogrel 75 mg daily. He is diabetic. He has a history of atherosclerotic coronary vascular disease. Also has known bilateral carotid artery stenosis and stage III chronic kidney disease. By report has had multiple lacunar infarcts. He has a right carotid occlusion for which I follow him. On routine laboratory August 20, 2023 hemoglobin is 14.1 and hematocrit 41.5. I recheck on November 06, 2023 demonstrates a hemoglobin of 12.4 and hematocrit of 37.2. That was rechecked on November 19, 2023 with a hemoglobin of 12.5 and hematocrit of 37.6. Platelet count has been steady and most recently 289. BUN currently is 23 with a creatinine of 1.14. Interestingly on August 20, 2023 the BUN was higher at 41 and creatinine is 1.38. His current calcium level is slightly elevated at 10.4. Liver function tests are normal. On August 20, 2023 his urine glucose was of thousand and his urine specific gravity was 1.015. Dating back to January 08, 2022 his hemoglobin was as high as 16.5 at that time The patient had a stroke in 2017. This got a completely occluded right carotid. Less than 50% stenosis of his left carotid. 2018 he had a Cologuard test performed. He is being managed managed with low-dose aspirin and clopidogrel therapy. He does have occasional reflux symptoms and he takes Tums to assist. He has not noticed any bright red blood per rectum or melena. He has had a remote colonoscopy. He was told after his stroke that he was too high risk initially to have a colonoscopy and therefore the Cologuard was recommended. Since his stroke however he has not had additional episodes. He denies of any abdominal pain. He is not very active does any do any purposeful exercise. ROS General General: Yes weight change and fatigue; No appetite, colon cancer, breast cancer or weakness Additional Details: weight loss HEENT HEENT: No difficulty swallowing, eye injury, eye surgery, swollen glands or hoarseness Endo Endocrine: Yes diabetes mellitus; No thyroid disease, thyroid cancer, Hair loss, heat intolerance or cold intolerance Skin Skin: No rash or changing moles Breast Breast: No left breast lump, right breast lump, nipple discharge, breast pain, abnormal mammogram, abnormal US or breast enlargement Musc Musculoskeletal: No back problems, arthritis, rheumatoid arthritis, gout or joint pain Cardio Cardiovascular: Yes heart disease, high blood pressure, heart attack and heart stent; No murmur, pacemaker, atrial fibrillation, palpitations, shortness of breat with exertion or chest pain Psych Psychiatric: No depression, anxiety or hearing voices Resp Respiratory: No shortness of breath, No sleep apnea, No cough, No COPD, No asthma, No emphysema and No wheezing Gastro Gastrointestinal: No abdominal pain, No nausea or vomiting, No diarrhea, No constipation, No blood in stool, No acid reflux, No hemorrhoids, No ulcers, No gallbladder problem and No black,tarry stools Porter Hematologic: Yes blood thinners, No blood disorders, No bleeding, No anemia and No blood clots Neuro Neurologic: No system reviewed and no additional complaints, except as documented, No as per HPI, No abnormal gait, No abnormal hearing, No abnormal movements, No abnormal speech, No behavioral changes, No burning sensations, No confusion, No convulsions, No disequilibrium, No dizziness, No localized weakness, No frequent falls, No headache(s), No lack of coordination, No loss of vision, No memory loss, No numbness, No other visual disturbances, No radicular pain, No restless legs, No sensory deficit, No syncope, No tingling, No tremor(s), No weakness and Yes other (Stroke/TIA) Exam Const General: cooperative, comfortable and no acute distress Nutritional Appearance: average body habitus Orientation: alert, awake and oriented x3 HENMT Head: normal to inspection Other: Some facial droop on the left Eyes General: appearance normal, both eyes and all related structures Neck Neck: normal visual inspection Other: Carotids are 3+ bilaterally. I do not detect a carotid bruit. Chest Chest palpation & inspection: normal inspection of the chest Resp Effort & Inspection: normal respiratory effort Auscultation: clear to auscultation bilaterally Cardio Rate: regular rate Rhythm: regular rhythm GI Inspection: normal to inspection Palpation: soft and no hepatosplenomegaly Musc Cervical Spine: normal cervical lordosis Skin General: no rashes or lesions noted Neuro General: patient alert, patient awake and patient oriented x3 Extrem General: no calf tenderness Psych Appearance: grossly normal Assessment and Plan Assessment and Plan (1) Anemia: Status: Acute Qualifiers: Anemia type: unspecified type Qualified Code(s): D64.9 - Anemia, unspecified (2) History of colon polyps: Status: Acute (3) Carotid artery disease: Status: Chronic Qualifiers: Carotid artery disease type: occlusion Laterality: right Qualified Code(s): I65.21 - Occlusion and stenosis of right carotid artery Plan Patient has known occlusion of his right carotid and less than 50% stenosis of his left carotid. I have most recently seen him March 07, 2003 and evaluation of that and he has a follow-up planned February 2024. I am recommending to the patient a combined esophagogastroduodenoscopy with possible biopsy and colonoscopy with possible biopsy or polypectomy as indicated. He is aware of the technique, benefit, risk, alternatives. We will need to have him hold his Plavix briefly preprocedure. Anticipating approximately 3 days. He has had an opportunity to ask and have questions answered. We will schedule and expedite his care. I appreciate the opportunity of assisting with his surgical care. I have explained to the patient and his that I believe he is far enough away from his index stroke to allow us to proceed safely with monitored anesthesia care in the upper and lower endoscopy. Although I did not promise him that it is risk-free I believe that with him having a history of being a tobacco smoker and with him having indigestion symptoms taking Tums and the new onset mild anemia that it is intentional upper and lower endoscopy risk-benefit ratio is in his favor and certainly more diagnostic and possibly therapeutic than other options. He has had an opportunity ask and have questions answered. He is willing to proceed. We will schedule procedure at his discretion. We will do our best to expedite. I appreciate the ongoing option of assisting with his surgical care Copy: Dr. Savanna Gilman M.D., F.A.C.S. I have examined the patient and the H&P has been reviewed. There are no clinical changes since date of exam. Manuel Gilman M.D., F.A.C.S.
[2023-12-03 06:22] LABS: Bedside Glucose 252 mg/dL (74-106)
--- NOTE | 2023-12-03 06:30 | IMM_PTH ---
PATIENT: MARIBELL LAINEZ LOC: EN U#:[id number] AGE/SX: 73/M ROOM: RE12/03/[address]: Dr. Manuel Gilman MD : 1950 BED: DIS: 12/03/2023 SPEC #: [id number] RECD: 12/03/23 12:44 STATUS: WILLIAMS REPatel #: [id number] ERICKA: 12/03/23 06:[address]: Manuel Gilman DEPT: IMMUNOHISTOCHEMISTRY RECD BY: Rubia Johnson ENTERED: 12/03/23 12:45 SP TYPE: IMMUNO OTHR DR: Dr. Savanna Sinclair MD Tissues: A - Stomach, NOS Procedures: H Pylori (initial) PHYSICIAN & INSTITUTION [place] [address] SPECIMEN INFORMATION: Tissue Source: A - Antrum Clinical Info: Anemia, colon polyps Specimen Number: [id number] CPT code: 15022 METHODOLOGY: Deparaffinized sections of prefer/formalin-fixed tissue or PAP/DQ stained slides are incubated with monoclonal/polyclonal antibodies/oligonucleotide probes. Localization is made via biotin free immunoperoxidase method. Appropriate controls are performed and reacted as expected. Results on target cell population are indicated in the following table: RESULTS: ANTIBODY / CLONE RESULT Block A H Pylori (polyclonal) negative These tests were developed and their performance characteristics determined by [facility]. They may not have been cleared or approved by the U.S. Food and Drug Administration. The FDA has determined that such clearance or approval is not necessary. The above immunohistochemical/dualISH markers are ordered and reviewed by the Pathologist. INTERPRETATION: A. Antrum, biopsy: Negative for Helicobacter pylori organisms. MIRIAM/ 12/04/2023
--- NOTE | 2023-12-03 06:30 | EGD_PTH ---
PATIENT: MARIBELL LAINEZ LOC: EN U#:[id number] AGE/SX: 73/M ROOM: RE12/03/[address]: Dr. Manuel Gilman MD : 1950 BED: DIS: 12/03/2023 SPEC #: [id number] RECD: 12/03/23 10:49 STATUS: WILLIAMS MORGAN #: [id number] ERICKA: 12/03/23 06:[address]: Manuel Gilman DEPT: SURGICAL PATHOLOGY RECD BY: Key Pritchard ENTERED: 12/03/23 11:36 SP TYPE: EGD BIOPSY JACKIE DR: Dr. Savanna Sinclair MD Tissues: A - Gastric mucous membrane B - Esophagus, NOS C - COLON BIOPSY D - Sigmoid colon biopsy Procedures: Special Stain Group II Surgery Specimen Level IV Alcian Blue/PAS (control) HEADER OPERATION: Colonoscopy with biopsy, EGD with biopsy PRE-OP DIAGNOSIS: Anemia, History of colon polyps, Carotid artery disease TISSUE SUBMITTED: A- Antrum biopsy for h pylori and path, B- Distal esophagus biopsy, C- Hepatic flexure polyp biopsy, D-Distal sigmoid polyp biopsy MICROSCOPIC DIAGNOSIS A. Antrum biopsy; Moderate gastritis. See microscopic description and comment. B. Distal esophagus, biopsy; Fragments of gastroesophageal mucosa with rare cells with Intestinal metaplasia (goblet cell metaplasia). Chronic inflammation and changes consistent with gastroesophageal reflux disease. Negative for dysplasia. See comment. C. Hepatic flexure polyp, biopsy; Fragments of colonic mucosa, no pathologic diagnosis. D. Distal sigmoid polyp, biopsy; Fragments of hyperplastic polyp. COMMENT A. The results of immunohistochemistry for Helicobacter pylori will be reported separately ([id number]). B. The specimen predominantly consists of squamous mucosa. Increased numbers of eosinophils are also noted (~10- 15 per high power field) suggestive of eosinophilic esophagitis. Alcian blue/PAS stain with matched control is used in the evaluation of the specimen. Correlation with clinical, endoscopic findings and appropriate follow up are necessary. This case has been reviewed in consultation with Dr. Talavera who concurs with the above diagnosis. MICROSCOPIC DESCRIPTION Slides are reviewed. A. The specimen shows fragments of gastric mucosa with chronic inflammatory cell infiltrates in the lamina propria consisting of lymphocytes and plasma cells, consistent with moderate chronic gastritis. GROSS DESCRIPTION A. Received in fixative is one container labeled with the patient's name and designated Antrum biopsy. The specimen consists of one irregular fragment of light liang soft tissue that measures 0.3 x 0.3 x 0.1 cm. The specimen is totally submitted in one cassette. B. Received in fixative is one container labeled with the patient's name and designated Distal esophagus biopsy. The specimen consists of multiple irregular fragments of light liang soft tissue that in aggregate measure 0.6 x 0.3 x 0.1 cm. The specimen is totally submitted in one cassette. C. Received in fixative is one container labeled with the patient's name and designated Hepatic flexure polyp biopsy. The specimen consists of two irregular fragments of light liang soft tissue that in aggregate measure 0.4 x 0.2 x 0.1 cm. The specimen is totally submitted in one cassette. D. Received in fixative is one container labeled with the patient's name and designated Distal sigmoid polyp biopsy. The specimen consists of two irregular fragments of light liang soft tissue that in aggregate measure 0.6 x 0.3 x 0.1 cm. The specimen is totally submitted in one cassette. Preston 12/03/2023 TC:1 CPT: 95805A1, 91094
--- NOTE | 2023-12-03 07:08 | OP.CCLET_ITS ---
12/03/2023 Savanna Sinclair [facility] [address] [place] [address] Re : Upper GI endoscopy procedure for Coleman Davies Dear Dr. Sinclair This procedure was performed on Sunday, December 03, 2023. My impressions and recommendations are as follows: Impressions : - LA Grade A reflux esophagitis with no bleeding. Biopsied. - Chronic gastritis. Biopsied. - Normal examined duodenum. Recommendations : - Discharge patient to home. - Resume previous diet. - Continue present medications. - Use Pepcid (famotidine) 20 mg PO daily. - Telephone my office for pathology results in 1 week. Mild gastritis might be the source of minimal anemia. No active bleeding. Very minimal suggestion of old blood. My findings are described in the full procedure note, which is enclosed. If I can be of further assistance, please feel free to contact me at Doctor phone number(s): Work: . Sincerely, Manuel Gilman MD 12/03/2023 7:07:30 AM This report has been signed electronically.
--- NOTE | 2023-12-03 07:08 | OP.EGD_ITS ---
Patient Name: Coleman Davies Procedure Date: 12/03/2023 6:18 AM Date of : 1950 Age: 73 Procedure: Upper GI endoscopy Indications: Iron deficiency anemia Providers: Manuel Gilman MD Medicines: See the Anesthesia note for documentation of the administered medications Complications: No immediate complications. Procedure: Pre-Anesthesia Assessment: - Prior to the procedure, a History and Physical was performed, and patient medications and allergies were reviewed. The patient's tolerance of previous anesthesia was also reviewed. The risks and benefits of the procedure and the sedation options and risks were discussed with the patient. All questions were answered, and informed consent was obtained. Prior Anticoagulants: The patient has taken Plavix (clopidogrel), last dose was 3 days prior to procedure. ASA Grade Assessment: III - A patient with severe systemic disease. After reviewing the risks and benefits, the patient was deemed in satisfactory condition to undergo the procedure. After obtaining informed consent, the endoscope was passed under direct vision. Throughout the procedure, the patient's blood pressure, pulse, and oxygen saturations were monitored continuously. The Endoscope was introduced through the mouth, and advanced to the second part of duodenum. The upper GI endoscopy was accomplished without difficulty. The patient tolerated the procedure well. Scope In: 6:35:11 AM Scope Out: 6:40:04 AM Total Procedure Duration Time 0 hours 4 minutes 53 seconds Findings: LA Grade A (one or more mucosal breaks less than 5 mm, not extending between tops of 2 mucosal folds) esophagitis with no bleeding was found 40 cm from the incisors. Biopsies were taken with a cold forceps for histology. Diffuse minimal inflammation characterized by erythema was found in the gastric antrum. Biopsies were taken with a cold forceps for histology. The examined duodenum was normal. Impression: - LA Grade A reflux esophagitis with no bleeding. Biopsied. - Chronic gastritis. Biopsied. - Normal examined duodenum. Recommendation: - Discharge patient to home. - Resume previous diet. - Continue present medications. - Use Pepcid (famotidine) 20 mg PO daily. - Telephone my office for pathology results in 1 week. Mild gastritis might be the source of minimal anemia. No active bleeding. Very minimal suggestion of old blood. Procedure Code(s): --- Professional --- 11786, Esophagogastroduodenoscopy, flexible, transoral; with biopsy, single or multiple Diagnosis Code(s): --- Professional --- K21.00, Gastro-esophageal reflux disease with esophagitis, without bleeding K29.50, Unspecified chronic gastritis without bleeding D50.9, Iron deficiency anemia, unspecified CPT copyright 2021 [employer]. All rights reserved. The codes documented in this report are preliminary and upon e merchant review may be revised to meet current compliance requirements. Manuel Gilman MD 12/03/2023 7:07:30 AM This report has been signed electronically. Number of Addenda: 0 Note Initiated On: 12/03/2023 6:18 AM
--- NOTE | 2023-12-03 07:12 | OP.COLON_ITS ---
Patient Name: Coleman Davies Procedure Date: 12/03/2023 6:41 AM Date of : 1950 Age: 73 Procedure: Colonoscopy Indications: Iron deficiency anemia Providers: Manuel Gilman MD Medicines: See the Anesthesia note for documentation of the administered medications Patient Profile: Last Colonoscopy: more than 10 years ago. Complications: No immediate complications. Procedure: Pre-Anesthesia Assessment: - Prior to the procedure, a History and Physical was performed, and patient medications and allergies were reviewed. The patient's tolerance of previous anesthesia was also reviewed. The risks and benefits of the procedure and the sedation options and risks were discussed with the patient. All questions were answered, and informed consent was obtained. Prior Anticoagulants: The patient has taken Plavix (clopidogrel), last dose was 3 days prior to procedure. ASA Grade Assessment: III - A patient with severe systemic disease. After reviewing the risks and benefits, the patient was deemed in satisfactory condition to undergo the procedure. After I obtained informed consent, the scope was passed under direct vision. Throughout the procedure, the patient's blood pressure, pulse, and oxygen saturations were monitored continuously. The colonoscope was introduced through the anus and advanced to the cecum, identified by appendiceal orifice and ileocecal valve. The colonoscopy was performed without difficulty. The patient tolerated the procedure well. The quality of the bowel preparation was good. The ileocecal valve and the appendiceal orifice were photographed. Scope In: 6:43:16 AM Scope Withdrawal Time 0 hours 12 minutes 18 seconds Scope Out: 7:02:32 AM Total Procedure Duration Time 0 hours 19 minutes 16 seconds Findings: The digital rectal exam findings include non-thrombosed external hemorrhoids, non-thrombosed internal hemorrhoids and internal hemorrhoids that prolapse with straining, but spontaneously regress to the resting position (Grade II). Pertinent negatives include normal prostate (size, shape, and consistency). A 5 mm polyp was found in the hepatic flexure. The polyp was sessile. The polyp was removed with a cold biopsy forceps. Resection and retrieval were complete. A 4 mm polyp was found in the distal sigmoid colon. The polyp was sessile. The polyp was removed with a cold biopsy forceps. Resection and retrieval were complete. Impression: - Non-thrombosed external hemorrhoids, non-thrombosed internal hemorrhoids and internal hemorrhoids that prolapse with straining, but spontaneously regress to the resting position (Grade II) found on digital rectal exam. - One 5 mm polyp at the hepatic flexure, removed with a cold biopsy forceps. Resected and retrieved. - One 4 mm polyp in the distal sigmoid colon, removed with a cold biopsy forceps. Resected and retrieved. Recommendation: - Telephone my office for pathology results in 1 week. - Repeat colonoscopy in 5 years for surveillance. - Continue present medications. Procedure Code(s): --- Professional --- 27524, Colonoscopy, flexible; with biopsy, single or multiple Diagnosis Code(s): --- Professional --- K64.1, Second degree hemorrhoids K64.4, Residual hemorrhoidal skin tags D12.3, Benign neoplasm of transverse colon (hepatic flexure or splenic flexure) D12.5, Benign neoplasm of sigmoid colon D50.9, Iron deficiency anemia, unspecified CPT copyright 2021 [employer]. All rights reserved. The codes documented in this report are preliminary and upon supervisor wood crew review may be revised to meet current compliance requirements. Manuel Gilman MD 12/03/2023 7:11:28 AM This report has been signed electronically. Number of Addenda: 0 Note Initiated On: 12/03/2023 6:41 AM
--- NOTE | 2023-12-03 07:12 | OP.CCLET_ITS ---
12/03/2023 Savanna Sinclair [facility] [address] [place] [address] Re : Colonoscopy procedure for Coleman Davies Dear Dr. Sinclair This procedure was performed on Sunday, December 03, 2023. My impressions and recommendations are as follows: Impressions : - Non-thrombosed external hemorrhoids, non-thrombosed internal hemorrhoids and internal hemorrhoids that prolapse with straining, but spontaneously regress to the resting position (Grade II) found on digital rectal exam. - One 5 mm polyp at the hepatic flexure, removed with a cold biopsy forceps. Resected and retrieved. - One 4 mm polyp in the distal sigmoid colon, removed with a cold biopsy forceps. Resected and retrieved. Recommendations : - Telephone my office for pathology results in 1 week. - Repeat colonoscopy in 5 years for surveillance. - Continue present medications. My findings are described in the full procedure note, which is enclosed. If I can be of further assistance, please feel free to contact me at Doctor phone number(s): Work: . Sincerely, Manuel Gilman MD 12/03/2023 7:11:28 AM This report has been signed electronically.
== END 2023-12-03 08:15 | disposition home or self-care (01) ==
LOC: EN 05:23 → AC 05:24
PROVIDERS: PCP Internal Medicine; Referring Provider Internal Medicine; Visit Provider Surgery
PROC: 0DJD8ZZ Inspection of Lower Intestinal Tract, Via Natural or Artificial Opening Endoscopic (ICD-10-PCS; CPT 45378; principal; 2023-12-03 06:25)
DX: I63.81 Other cerebral infarction due to occlusion or stenosis of small artery (principal); E11.22 Type 2 diabetes mellitus with diabetic chronic kidney disease; N18.30 Chronic kidney disease, stage 3 unspecified; K29.50 Unspecified chronic gastritis without bleeding; I65.23 Occlusion and stenosis of bilateral carotid arteries; I25.10 Atherosclerotic heart disease of native coronary artery without angina pectoris; K21.00 Gastro-esophageal reflux disease with esophagitis, without bleeding; K63.5 Polyp of colon; Z79.84 Long term (current) use of oral hypoglycemic drugs; Z86.010 Personal history of colon polyps; Z87.891 Personal history of nicotine dependence; K64.4 Residual hemorrhoidal skin tags; Z79.82 Long term (current) use of aspirin; Z79.899 Other long term (current) drug therapy; Z86.73 Personal history of transient ischemic attack (TIA), and cerebral infarction without residual deficits; Z79.01 Long term (current) use of anticoagulants; K64.1 Second degree hemorrhoids; D50.9 Iron deficiency anemia, unspecified; K31.A19 Gastric intestinal metaplasia without dysplasia, unspecified site; Z79.02 Long term (current) use of antithrombotics/antiplatelets; I12.9 Hypertensive chronic kidney disease with stage 1 through stage 4 chronic kidney disease, or unspecified chronic kidney disease; E78.00 Pure hypercholesterolemia, unspecified
CPT/HCPCS: 43239; 45380; 82962; 88305; 88313; 88342; J7120; J2405

== ENCOUNTER → 2024-02-24 | Outpatient (CLI) | payer MEDICARE, OTHER, SELFPAY ==
--- NOTE | 2024-02-24 12:48 | CDU_ITS ---
Reason For Study: Carotid Stenosis Rt. Velocities/BP Lt. Velocities/BP Prox CCA 44/0 cm/sec. Prox CCA 64/17 cm/sec. Mid CCA 27/0 cm/sec. Mid CCA 95/17 cm/sec. Dist CCA 29/0 cm/sec. Dist CCA 98/23 cm/sec. Prox ICA 0 cm/sec. Prox ICA 90/27 cm/sec. Mid ICA 0 cm/sec. Mid ICA 100/27 cm/sec. Dist ICA 0 cm/sec. Dist ICA 101/34 cm/sec. Rt. ICA/CCA = 0. Lt. ICA/CCA = 1.1. Prox ECA 270/0 cm/sec. Prox ECA 157/0 cm/sec. Rt. Vert. 39/11 cm/sec. Lt. Vert. 47/16 cm/sec. Right Extracranial There is heterogeneous, irregular atherosclerotic plaque noted in the right common carotid artery. There is heterogeneous, irregular atherosclerotic plaque noted in the right internal carotid artery. The right internal carotid artery is occluded. There is heterogeneous, irregular atherosclerotic plaque noted in the right external carotid artery. Antegrade flow is noted in the right vertebral artery. Left Extracranial There is heterogeneous, irregular atherosclerotic plaque noted in the left common carotid artery. There is heterogeneous, irregular atherosclerotic plaque noted in the left internal carotid artery. There is heterogeneous, irregular atherosclerotic plaque noted in the left external carotid artery. Antegrade flow is noted in the left vertebral artery. Procedure Carotid Duplex 36777. This is a Carotid Duplex examination using B-mode, color flow and specral Doppler. Exam performed in department. VL/Carotid Duplex Ultrasound Interpretation Summary Extensive irregular calcific plaque of the right internal carotid artery with n o flow identified consistent with occlusion. Greater than 50% stenosis right external carotid artery Irregular calcific plaque with shadowing at the proximal left internal carotid artery with less than 50% stenosis Less than 50% stenosis left external carotid artery Patent antegrade vertebral arteries bilaterally No change from the previous examination of February 18, 2023 Ordering Physician: Manuel Gilman Referring Physician: Savanna Sinclair Performed By: Keila Ramachandran, DARLIN, RVT
== END | disposition home or self-care (01) ==
LOC: CVS 12:45
PROVIDERS: PCP Internal Medicine; Referring Provider Surgery; Visit Provider Surgery
DX: I63.81 Other cerebral infarction due to occlusion or stenosis of small artery (principal); I65.21 Occlusion and stenosis of right carotid artery
CPT/HCPCS: 93880

== ENCOUNTER 2024-02-27 09:41 | Observation (INO) | payer MEDICARE, OTHER, SELFPAY ==
[2024-02-27] VITALS (10 sets, daily range): BP systolic 104–150; BP diastolic 54–74; PULSE 74–83; RESP 12–16; TEMP 36.3–36.8; O2SAT 95–99; BMI 23.1; BMI 22.7
--- NOTE | 2024-02-27 09:56 | RAD_ITS ---
STUDY: X-RAY CHEST REASON FOR EXAM: Male, 73 years old. Chest pain TECHNIQUE: Single AP portable view of the chest. COMPARISON: Comparison is made with prior study dated August 24, 2023. FINDINGS: EKG electrodes are seen. The lungs are clear and expanded. There is no demonstrated pleural abnormality. Normal size heart. Normal mediastinum and yumiko. Normal visualized pulmonary arteries. Normal visualized aortic arch and descending thoracic aorta. Normal visualized thoracic spine. There is degenerative osteoarthritis of the bilateral shoulders. There is no demonstrated abnormality of the visualized soft tissue structures of the upper abdomen. RAD/Chest 1 View (Portable) IMPRESSION: Normal x-ray examination of the chest. Electronically Signed: Perico Allen MD at 10:32 EDT ,
--- NOTE | 2024-02-27 09:56 | EKG12_ITS ---
Test Reason : CP Blood Pressure : / mmHG Vent. Rate : 084 BPM Atrial Rate : 084 BPM P-R Int : 150 ms QRS Dur : 086 ms QT Int : 348 ms P-R-T Axes : 044 -06 064 degrees QTc Int : 411 ms Normal sinus rhythm Inferior infarct (cited on or before 24-AUG-2023) Cannot rule out Anteroseptal infarct , age undetermined Abnormal ECG Confirmed by EMIGDIO HE MD ([id number]), news copy editor MARLON POE ([id number]) on 02/28/2024 1:46:54 PM Referred By: Confirmed By:EMIGDIO HE MD
[2024-02-27] MEDS: Aspirin 81 MG TAB.CHEW 324 MG PO (10:02)
[2024-02-27] MEDS: 0.9% Normal Saline (1000mL) 1,000 ML 999 ML IV (10:03)
[2024-02-27 10:07] LABS: Absolute Lymphocyte Count 1.98 X10^3/uL (0.83-4.51); Absolute Neutrophil Count 3.7 X10^3/uL (2.0-7.7); Basophil# 0.03 X10^3/uL; Basophil% 0.4 % (0-1); Eosinophil# 0.28 X10^3/uL; Eosinophils% 4.1 % (0-5); Hematocrit 37.2 % (40-54); Hemoglobin 12.6 g/dL (13.0-16.5); Lymphocyte # 1.98 X10^3/ul (0.83-4.51); Lymphocyte % 29.2 % (19-41); Mean Corp Hgb Conc 33.9 g/dL (32-36); Mean Corpuscular Hgb 29.6 pg (27.0-32.0); Mean Corpuscular Volume 87.5 fL (80-94); Monocyte# 0.77 X10^3/uL; Monocyte% 11.4 % (0-10); NRBC Flagged by Analyzer 0 % (0-5); Neutrophil # 3.69 X10^3/uL (2.7-7.7); Neutrophil % 54.6 % (47-70); Platelet Count 256 K/mm3 (150-450); RBC Distribution Width CV 13.4 % (11.6-14.6); RBC Distribution Width SD 42.8 fl (35.1-43.9); Red Blood Count 4.25 M/mm3 (4.6-6.2); White Blood Count 6.8 K/mm3 (4.4-11.0)
--- NOTE | 2024-02-27 10:07 | EKG12_ITS ---
Test Reason : Blood Pressure : / mmHG Vent. Rate : 080 BPM Atrial Rate : 080 BPM P-R Int : 146 ms QRS Dur : 092 ms QT Int : 362 ms P-R-T Axes : 044 -18 069 degrees QTc Int : 417 ms Normal sinus rhythm Inferior infarct , age undetermined Cannot rule out Anteroseptal infarct , age undetermined Abnormal ECG Confirmed by YING LORENZO, EMIGDIO ([id number]), associate entertainment editor MARLON POE ([id number]) on 03/02/2024 12:47:10 PM Referred By: Confirmed By:EMIGDIO HE MD
[2024-02-27] MEDS: Ondansetron 4 MG/2 ML Vial IV (10:17)
[2024-02-27] MEDS: Morphine 4 MG/ML Syringe IV (10:17)
--- NOTE | 2024-02-27 10:19 | EDS_ITS ---
HPI History of Present Illness Chief Complaint: Chest Pain Informant: patient and spouse/S.O. Narrative Narrative: 73-year-old male with known coronary artery disease presenting to the emergency room with chest pain. Patient states he was at work today walking [place] a [place]. He states that he developed a anterior chest pressure with nausea near syncope and shortness of breath. He states his symptoms are improved currently. He states that he had a prior stent to his LAD as well as a history of a hemorrhagic CVA. Patient reports also a history of diabetes hypertension hypertriglyceridemia. Patient states he had a heart mary terization with Dr. Lui about 2 years ago but did not require intervention. He takes a baby aspirin a day in addition to Plavix. Symptoms began approximately 1 hour prior to my examination and have been continuous. 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) DDD (degenerative disc disease) Pure hypercholesterolemia CKD (chronic kidney disease) stage 3, GFR 30-59 ml/min Right carotid artery occlusion Bilateral carotid artery stenosis Essential hypertension Type 2 diabetes mellitus Presence of stent in coronary artery (~08/28/01) Atherosclerotic heart disease of [place] coronary artery without angina pectoris Home Medications ?Medication ?Instructions ?Recorded ?Last Taken ?Type ascorbic acid (vitamin C) 500 mg 500 mg PO DAILY SUPPLEMENT 07/05/21 02/27/24 History tablet aspirin 81 mg tablet,delayed 81 mg PO DAILY HEART HEALTH 07/05/21 02/27/24 History release (Adult Low Dose Aspirin) cyanocobalamin (vitamin B-12) 1,000 mcg PO DAILY SUPPLEMENT 07/05/21 02/27/24 History 5,000 mcg disintegrating tablet cholecalciferol (vitamin D3) 25 25 mcg PO BID SUPPLEMENT 07/20/21 02/27/24 History mcg (1,000 unit) tablet blood sugar diagnostic (OneTouch #100 ea 04/03/23 Unknown Rx Verio test strips) clopidogrel 75 mg tablet (Plavix) 75 mg PO DAILY BLOOD THINNER #90 04/22/23 02/27/24 Rx tabs metformin 500 mg tablet 1,000 mg (2 x 500 mg) PO BID BLOOD 04/24/23 02/27/24 Rx SUGARS #180 tabs atorvastatin 80 mg tablet 80 mg PO QHS CHOLESTEROL #90 tabs 06/13/23 02/26/24 Rx lisinopril 20 mg tablet 20 mg PO DAILY BLOOD PRESSURE #90 06/13/23 02/27/24 Rx tabs pen needle, diabetic 32 gauge x #100 ea 10/23/23 Unknown Rx 1/4 (Comfort EZ Pen [place]) amlodipine 5 mg tablet 5 mg PO QHS BLOOD PRESSURE 11/29/23 02/26/24 History isosorbide mononitrate 30 mg 30 mg PO QHS HEART 11/29/23 02/26/24 History tablet,extended release 24 hr famotidine 20 mg tablet 20 mg PO DAILY ACID REFLUX #90 tabs 12/03/23 02/27/24 Rx insulin glargine U-300 conc 300 36 unit (0.12 mL) subcut DAILY 12/10/23 02/27/24 Rx unit/mL (1.5 mL) subcutaneous pen BLOOD SUGARS #4.5 mL (Toujeo SoloStar U-300 Insulin) glimepiride 4 mg tablet 4 mg PO BID BLOOD SUGARS #90 tabs 12/19/23 02/27/24 Rx carvedilol 6.25 mg tablet 6.25 mg PO BID HEART 02/27/24 02/27/24 History Allergy/AdvReac Type Severity Reaction Status Date / Time No Known Allergies Allergy Verified 02/27/24 09:47 Family History Mother CAD (coronary artery disease) Diabetes Myocardial infarction, Onset Age: 48 Father Diabetes Breast cancer Brother Diabetes Brother Cancer Prostate Surgical History Hx of LASIK Hx of colonoscopy History of left heart catheterization (LHC) (~06/01/22) History of arthroscopic surgery of shoulder History of laminectomy (~2007) Presence of coronary angioplasty implant and graft (~08/28/01) Social History household members: spouse Smoking Status: Former smoker alcohol intake: current details: occasional substance use type: does not use caffeine: Yes Type: tea Number of servings: 1 what type of physical activity do you participate in: none ROS ROS ED Constitutional Constitutional ED: Reports sweats; Denies chills, fever(s) or weight loss Eyes Eyes: Denies change in vision or diplopia ENT ENT ED: Denies ear pain, rhinorrhea or sore throat Cardiovascular Cardiovascular: Reports chest pain and other Details: Near syncope ; Denies orthopnea, palpitations or racing heartbeat Respiratory/Chest Respiratory/Chest: Reports dyspnea; Denies cough or orthopnea Gastrointestinal Gastrointestinal: Reports nausea; Denies abdominal pain, diarrhea or vomiting Genitourinary Genitourinary ED: Denies dysuria, hematuria or urinary frequency Musculoskeletal Musculoskeletal: Denies arthralgias or myalgias Integumentary Denies abscess or rash Neurologic Neurologic: Denies headache(s) or weakness Psychiatric Psychiatric: Denies anxiety, depression, suicidal ideation or suicidal thoughts Endocrine Endocrinology: Denies polydipsia, polyphagia or polyuria Allergic/Immunologic Allergic/Immunologic ED: Denies mouth swelling, tongue swelling or urticaria EXAM Physical Exam Const Vital Signs: 02/27/24 09:42 02/27/24 09:49 02/27/24 09:56 Temperature 97.3 F L Temperature Source Temporal Pulse Rate 81 Respiratory Rate 15 Respiratory Effort Normal Non-Labored Respiratory Pattern Normal Blood Pressure 112/62 Blood Pressure Mean 78 Pulse Ox 98 Oxygen Delivery Method Room Air Nasal Cannula Oxygen Flow Rate (L/min) 2.5 02/27/24 10:06 02/27/24 10:42 02/27/24 11:00 Temperature Temperature Source Pulse Rate 74 74 Respiratory Rate 16 16 14 Respiratory Effort Respiratory Pattern Blood Pressure 112/66 114/57 L 110/58 L Blood Pressure Mean 76 75 Pulse Ox 98 98 Oxygen Delivery Method Nasal Cannula Nasal Cannula Oxygen Flow Rate (L/min) 2 2.5 02/27/24 12:00 Temperature Temperature Source Pulse Rate 74 Respiratory Rate 14 Respiratory Effort Respiratory Pattern Blood Pressure 104/54 L Blood Pressure Mean 70 Pulse Ox 98 Oxygen Delivery Method Nasal Cannula Oxygen Flow Rate (L/min) 2.5 Positive well nourished and well developed General Appearance ED: well developed and NAD HEENT Reports normocephalic, head/scalp atraumatic and moist mucous membranes Eyes PERRL and EOMs intact bilaterally Neck no lymphadenopathy, supple and no JVD Resp normal respiratory effort and clear to auscultation bilaterally Cardio regular rate, regular rhythm and no murmurs GI normal to inspection, nondistended, normoactive bowel sounds and non-tender Palpation: soft Back/Spine no CVA tenderness and normal ROM Extremity normal to inspection General Extremety ED: Negative for edema General Extremity: Negative for edema Neuro oriented x3 and CN's II-XII intact bilaterally Sensorium / Orientation: alert Motor Exam: strength 5/5 throughout Psych Mood & Affect: anxious and tearful; Negative for depressed Skin no rashes or lesions noted and no wounds Heart Score History: Highly Suspicious ECG: Nonspecific Repolarization Age: >/= 65 years Risk Factors: >/= 3 Risk Factors or History of CAD Troponin: </= Normal Limit Score: 7 MDM MDM MDM Narrative Medical decision making narrative: Differential diagnosis includes but not limited to acute coronary syndrome pneumothorax pneumonia aortic dissection aneurysm esophagitis costochondritis pulmonary embolism. EKG was obtained which demonstrates a normal sinus rhythm. Ventricular rate of [address] segments are concerning inferiorly with possible hyperacute T waves. I compared to this prior and repeated shortly after the first 1 with no significant changes. I spoke with on-call STEMI Dr. Dr. Saenz and sent him a copy of the patient's previous and current EKG. He states he will speak with Dr. Calderón. In the interim patient received aspirin morphine Zofran and IV fluids. My independent interpretation of the chest x-ray is no acute process. Normal mediastinal silhouette. White count 6.8 with hemoglobin 12.6. Platelet count of 256. Creatinine is elevated from baseline at 1.77 with a BUN and of 38. 2 sets of cardiac enzymes are normal. Dr. Saenz from cardiology came to the emergency department to see the patient. The plan is admission. History & Record Review Discussion w/independent historian: Patient Additional record(s) reviewed:: Prior inpatient record, Prior outpatient record, Prior ED visit and Prior labs Lab Data Attestation: I reviewed the patient's lab results. Labs: Laboratory Results - last 24 hr 02/27/24 02/27/24 09:50 12:00 WBC 6.8 RBC 4.25 L Hgb 12.6 L Hct 37.2 L MCV 87.5 MCH 29.6 MCHC 33.9 RDW Std Deviation 42.8 RDW Coeff of Rich 13.4 Plt Count 256 MPV 10.0 Immature Gran % (Auto) 0.300 Neut % (Auto) 54.6 Lymph % (Auto) 29.2 [place] % (Auto) 11.4 H Eos % (Auto) 4.1 Baso % (Auto) 0.4 Absolute Neuts (auto) 3.7 Absolute Lymphs (auto) 1.98 Nucleated RBC % 0 Sodium 136 Potassium 5.4 H Chloride 104 Carbon Dioxide 20.0 L Anion Gap 12 BUN 38 H Creatinine 1.77 H Estim Creat Clear Calc 40.59 Est GFR (MDRD) Af Amer 49 L Est GFR (MDRD) Non-Af 40 L BUN/Creatinine Ratio 21.5 H Glucose 329 H Calcium 10.1 Troponin I High Sens 8 7 Radiography Diagnostic Testing: Clinical Impression(s) from Imaging Studies Chest X-Ray 02/27/24 09:56 IMPRESSION: Normal x-ray examination of the chest. Electronically Signed: Perico Allen MD at 10:32 EDT , EKG Initial EKG: Attestation: I personally reviewed and interpreted this EKG as follows: Interpretation: Sinus Rhythm Comments: Sinus rhythm with a ventricular rate of 84 bpm inferior changes reviewed. Prior EKG tracings: available for review Prior: Changed Management Discussion w/another healthcare provider: Hospitalist (Dr. Courtney) and Supervisor [place] (Dr. Saenz) Discharge Plan Dx/Rx/DC Orders Clinical Impression: Chest pain, Cardiomyopathy, ischemic, Coronary artery disease, Type 2 diabetes mellitus, Essential hypertension, Pure hypercholesterolemia, Near syncope Disposition Disposition: Acute Care Hospital [facility]
[2024-02-27 10:24] LABS: Anion Gap 12 (5-15); BUN 38 mg/dL (7-18); BUN/Creat Ratio 21.5 RATIO (10-20); Calcium,Total 10.1 mg/dL (8.5-10.1); Chloride 104 mmol/L (98-107); Creatinine, Serum 1.77 mg/dL (0.70-1.30); EST Glomerular Filtration Rate 40 mL/min (>60); Est Glom Filt Rate - Afr Amer 49 mL/min (>60); Estimated Creatinine Clearance 40.59 ml/min; Glucose 329 mg/dL (74-106); Potassium 5.4 mmol/L (3.5-5.1); Sodium Level 136 mmol/L (136-145); Troponin-I HS (w/2H Reflex) 8 pg/mL (3.0-78.0)
--- NOTE | 2024-02-27 10:58 | PCM.CONS.C ---
Assessment & Plan Assessment/Plan (1) Chest pain: QUALIFIERS: Chest pain type: unspecified Qualified Code(s): R07.9 - Chest pain, unspecified PLAN: Patient does have residual coronary artery disease which could explain his anginal symptoms. However he has presented with elevated creatinine compared to baseline. Risks and benefits of proceeding with coronary angiography right away versus hydrating him and then considering angiography versus medical therapy were discussed with the patient. The recommendation after the discussion is to check the second set of troponin and if it is significantly elevated then we will proceed with coronary angiography right away. If the second troponin is unremarkable then we will hydrate the patient and consider coronary angiography tomorrow. Alternatively if the second troponin is negative and his angina resolves we could consider medical therapy as well. Patient's lightheadedness could be related to volume depletion which is in line with his symptoms after the carotid ultrasound and also his mildly elevated creatinine. Patient could be started on a heparin drip. (2) Abnormal stress test: (3) Carotid artery disease: QUALIFIERS: Carotid artery disease type: occlusion Laterality: right Qualified Code(s): I65.21 - Occlusion and stenosis of right carotid artery (4) Coronary artery disease: QUALIFIERS: Coronary Disease-Associated Artery/Lesion type: [place] artery [place] vs. transplanted heart: [place] heart Associated angina: with unspecified form of angina Qualified Code(s): I25.119 - Atherosclerotic heart disease of [place] coronary artery with unspecified angina pectoris (5) History of hemorrhagic cerebrovascular accident (CVA) without residual deficits: HPI Consult Data Date of Consult: 02/27/24 HPI Narrative Reason for Consultation: Chest pain HPI Narrative: MARIBELL LAINEZ, is a 73 M who presents with anterior pressure-like chest pain. Symptoms started about 1 hour prior to presenting in the ER. 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 He was also having lightheadedness and had to stop his work. About 3 days back he had ultrasound of his carotids and at that time when he got up from a lying position after the test he felt lightheaded and had to sit back. The chest pressure was similar to what he had at the time of his LAD stent in 2000. However it is less intense than at that time. When he presented to the ER his discomfort is about 6-7 out of 10. Now he says it is eased but is about 5 out of 10 in intensity. His EKG does not reveal STEMI. His first high-sensitivity troponin was 8. His creatinine is 1.7 which is higher than his baseline. He had an angiogram about 2 years back which revealed a completely occluded circumflex that was filling with collaterals. Patent RCA. Mild disease in the LAD with patent stent. Ostial disease in a diagonal branch. His angiogram was reviewed today. Review of systems: All systems reviewed. All else is negative except that in [facility] Medical History Wears glasses History of steroid therapy Insulin dependent diabetes mellitus High cholesterol Stroke/cerebrovascular accident Dietary restriction Heartburn Former smoker Cardiology follow-up encounter History of heart attack Dyspnea on exertion Abnormal stress test History of recent pneumonia Hypertriglyceridemia Cardiomyopathy, ischemic History of left heart catheterization (LHC) BPH (benign prostatic hyperplasia) Multiple lacunar infarcts Hemorrhagic cerebrovascular accident (CVA) DDD (degenerative disc disease) Pure hypercholesterolemia CKD (chronic kidney disease) stage 3, GFR 30-59 ml/min Right carotid artery occlusion Bilateral carotid artery stenosis Essential hypertension Type 2 diabetes mellitus Presence of stent in coronary artery (~08/28/01) Atherosclerotic heart disease of [place] coronary artery without angina pectoris Home Medications ?Medication ?Instructions ?Recorded ?Last Taken ?Type ascorbic acid (vitamin C) 500 mg 500 mg PO DAILY SUPPLEMENT 07/05/21 02/27/24 History tablet aspirin 81 mg tablet,delayed 81 mg PO DAILY HEART HEALTH 07/05/21 02/27/24 History release (Adult Low Dose Aspirin) cyanocobalamin (vitamin B-12) 1,000 mcg PO DAILY SUPPLEMENT 07/05/21 02/27/24 History 5,000 mcg disintegrating tablet cholecalciferol (vitamin D3) 25 25 mcg PO BID SUPPLEMENT 07/20/21 02/27/24 History mcg (1,000 unit) tablet blood sugar diagnostic (OneTouch #100 ea 04/03/23 Unknown Rx Verio test strips) clopidogrel 75 mg tablet (Plavix) 75 mg PO DAILY BLOOD THINNER #90 04/22/23 02/27/24 Rx tabs metformin 500 mg tablet 1,000 mg (2 x 500 mg) PO BID BLOOD 04/24/23 02/27/24 Rx SUGARS #180 tabs atorvastatin 80 mg tablet 80 mg PO QHS CHOLESTEROL #90 tabs 06/13/23 02/26/24 Rx lisinopril 20 mg tablet 20 mg PO DAILY BLOOD PRESSURE #90 06/13/23 02/27/24 Rx tabs pen needle, diabetic 32 gauge x #100 ea 10/23/23 Unknown Rx 1/ (Comfort EZ Pen [place]) amlodipine 5 mg tablet 5 mg PO QHS BLOOD PRESSURE 11/29/23 02/26/24 History isosorbide mononitrate 30 mg 30 mg PO QHS HEART 11/29/23 02/26/24 History tablet,extended release 24 hr famotidine 20 mg tablet 20 mg PO DAILY ACID REFLUX #90 tabs 12/03/23 02/27/24 Rx insulin glargine U-300 conc 300 36 unit (0.12 mL) subcut DAILY 12/10/23 02/27/24 Rx unit/mL (1.5 mL) subcutaneous pen BLOOD SUGARS #4.5 mL (Toujeo SoloStar U-300 Insulin) glimepiride 4 mg tablet 4 mg PO BID BLOOD SUGARS #90 tabs 12/19/23 02/27/24 Rx carvedilol 6.25 mg tablet 6.25 mg PO BID HEART 02/27/24 02/27/24 History Allergy/AdvReac Type Severity Reaction Status Date / Time No Known Allergies Allergy Verified 02/27/24 09:47 Family History Mother CAD (coronary artery disease) Diabetes Myocardial infarction, Onset Age: 48 Father Diabetes Breast cancer Brother Diabetes Brother Cancer Prostate Surgical History Hx of LASIK Hx of colonoscopy History of left heart catheterization (LHC) (~06/01/22) History of arthroscopic surgery of shoulder History of laminectomy (~2007) Presence of coronary angioplasty implant and graft (~08/28/01) Social History household members: spouse Smoking Status: Former smoker alcohol intake: current details: occasional substance use type: does not use caffeine: Yes Type: tea Number of servings: 1 what type of physical activity do you participate in: none Physical Exam Const alert and oriented x3 HEENT normocephalic Eyes no scleral icterus Resp normal respiratory effort Cardio regular rate and regular rhythm Extremity no pedal edema Skin no rashes or lesions noted Risk Stratification Risk Stratification Applicable: No Charges/Coding Visit Charges Inpatient E&M: 86409 Init Hosp L2 Objective Data Vital Signs: Vital Signs Temp Pulse Resp BP Pulse Ox O2 Del Method O2 Flow Rate 97.3 F L 74 16 114/57 L 98 Nasal Cannula 2 02/27/24 09:42 02/27/24 10:42 02/27/24 10:42 02/27/24 10:42 02/27/24 10:42 02/27/24 10:42 02/27/24 10:42 Oxygen Flow Rate (L/min) 2 Oxygen Delivery Method Nasal Cannula Weight: 170 lb 3.15 oz Body Mass Index (BMI) 23.1 Lab / Micro Data 02/27/24 09:50 02/27/24 09:50 Labs: Laboratory Results - last 24 hr 02/27/24 09:50: WBC 6.8, RBC 4.25 L, Hgb 12.6 L, Hct 37.2 L, MCV 87.5, MCH 29.6, MCHC 33.9, RDW Std Deviation 42.8, RDW Coeff of Rich 13.4, Plt Count 256, MPV 10.0, Immature Gran % (Auto) 0.300, Neut % (Auto) 54.6, Lymph % (Auto) 29.2, [place] % (Auto) 11.4 H, Eos % (Auto) 4.1, Baso % (Auto) 0.4, Absolute Neuts (auto) 3.7, Absolute Lymphs (auto) 1.98, Nucleated RBC % 0, Sodium 136, Potassium 5.4 H, Chloride 104, Carbon Dioxide 20.0 L, Anion Gap 12, BUN 38 H, Creatinine 1.77 H, Estim Creat Clear Calc 40.59, Est GFR (MDRD) Af Amer 49 L, Est GFR (MDRD) Non-Af 40 L, BUN/Creatinine Ratio 21.5 H, Glucose 329 H, Calcium 10.1, Troponin I High Sens 8 Cardiology Labs/Tests 02/27/24 09:50: WBC 6.8, RBC 4.25 L, Hgb 12.6 L, Hct 37.2 L, MCV 87.5, MCH 29.6, MCHC 33.9, Plt Count 256, MPV 10.0, Immature Gran % (Auto) 0.300, Neut % (Auto) 54.6, Lymph % (Auto) 29.2, [place] % (Auto) 11.4 H, Eos % (Auto) 4.1, Baso % (Auto) 0.4, Absolute Neuts (auto) 3.7, Nucleated RBC % 0, Sodium 136, Potassium 5.4 H, Chloride 104, Carbon Dioxide 20.0 L, Anion Gap 12, BUN 38 H, Creatinine 1.77 H, Est GFR (MDRD) Af Amer 49 L, Est GFR (MDRD) Non-Af 40 L, BUN/Creatinine Ratio 21.5 H, Glucose 329 H, Calcium 10.1 Rhythm: EKG: ECHO: Stress Test: Cardiac Cath: PCI: CT Surgery: Holter monitor: EPS: PPM: CXR: Chest CT Scan: Radiography Diagnostic Testing: Radiology Impression Chest X-Ray 02/27/24 09:56 IMPRESSION: Normal x-ray examination of the chest. Electronically Signed: Perico Allen MD at 10:32 EDT ,
[2024-02-27 12:01] LABS: Reflex Troponin-HS? (from REC) Y
[2024-02-27 12:23] LABS: Troponin-I HS 7 pg/mL (3.0-78.0)
[2024-02-27] MEDS: 0.9% Normal Saline (1000mL) 1,000 ML 100 ML IV ×2 (14:58→23:56)
[2024-02-27 15:18] LABS: Hemoglobin A1c 10.8 % (3.8-5.6)
[2024-02-27 16:26] LABS: Troponin-I HS 6 pg/mL (3.0-78.0)
--- NOTE | 2024-02-27 17:14 | HP.PCM.HOS_ITS ---
HPI - General General Date of Admission: 02/27/24 Date of Service: 02/27/24 Chief Complaint: Chest pain HPI Narrative MARIBELL LAINEZ, is a 73 M who presents to the emergency room at [facility] today for evaluation of precordial chest discomfort which she described as a pressure like sensation which occurred when he was active today. Patient has a past history of coronary artery disease with stent placement, his last cardiac catheterization was in 2021, there were no stents placed at that time. Patient denies any radiation of the pain from his chest up into his jaw or down his arms or into the back area. He did not get diaphoretic and he stated the discomfort lasted about 15 minutes and went away after he got to the hospital. Workup in the emergency room included a CBC which was remarkable for hemoglobin of 12.6, chemistry profile was remarkable for potassium of 5.4, BUN of 38, and a creatinine of 1.77. Patient's glucose was 329. Troponin was unremarkable, patient had a chest x-ray performed which showed no acute process, the patient is EKG showed a normal sinus rhythm with evidence of old inferior wall TX, no acute ischemic changes were noted. Patient was seen in the emergency room by cardiology who felt that the patient should be admitted and hydrated and undergo cardiac catheterization tomorrow. Patient was placed in observation status on PCU, cardiac enzymes will be cycled, I will give him IV fluids and his labs will be rechecked tomorrow. Patient will remain on his home medications. He is already on dual antiplatelet therapy. [facility], [facility] Medical History Wears glasses History of steroid therapy Insulin dependent diabetes mellitus High cholesterol Stroke/cerebrovascular accident Dietary restriction Heartburn Former smoker Cardiology follow-up encounter History of heart attack Dyspnea on exertion Abnormal stress test History of recent pneumonia Hypertriglyceridemia Cardiomyopathy, ischemic History of left heart catheterization (LHC) BPH (benign prostatic hyperplasia) Multiple lacunar infarcts Hemorrhagic cerebrovascular accident (CVA) DDD (degenerative disc disease) Pure hypercholesterolemia CKD (chronic kidney disease) stage 3, GFR 30-59 ml/min Right carotid artery occlusion Bilateral carotid artery stenosis Essential hypertension Type 2 diabetes mellitus Presence of stent in coronary artery (~08/28/01) Atherosclerotic heart disease of [place] coronary artery without angina pectoris Home Medications ?Medication ?Instructions ?Recorded ?Last Taken ?Type ascorbic acid (vitamin C) 500 mg 500 mg PO DAILY SUPPLEMENT 07/05/21 02/27/24 History tablet aspirin 81 mg tablet,delayed 81 mg PO DAILY HEART HEALTH 07/05/21 02/27/24 History release (Adult Low Dose Aspirin) cyanocobalamin (vitamin B-12) 1,000 mcg PO DAILY SUPPLEMENT 07/05/21 02/27/24 History 5,000 mcg disintegrating tablet cholecalciferol (vitamin D3) 25 25 mcg PO BID SUPPLEMENT 07/20/21 02/27/24 History mcg (1,000 unit) tablet blood sugar diagnostic (OneTouch #100 ea 04/03/23 Unknown Rx Verio test strips) clopidogrel 75 mg tablet (Plavix) 75 mg PO DAILY BLOOD THINNER #90 04/22/23 02/27/24 Rx tabs metformin 500 mg tablet 1,000 mg (2 x 500 mg) PO BID BLOOD 04/24/23 02/27/24 Rx SUGARS #180 tabs atorvastatin 80 mg tablet 80 mg PO QHS CHOLESTEROL #90 tabs 06/13/23 02/26/24 Rx lisinopril 20 mg tablet 20 mg PO DAILY BLOOD PRESSURE #90 06/13/23 02/27/24 Rx tabs pen needle, diabetic 32 gauge x #100 ea 10/23/23 Unknown Rx 1/4 (Comfort EZ Pen [place]) amlodipine 5 mg tablet 5 mg PO QHS BLOOD PRESSURE 11/29/23 02/26/24 History isosorbide mononitrate 30 mg 30 mg PO QHS HEART 11/29/23 02/26/24 History tablet,extended release 24 hr famotidine 20 mg tablet 20 mg PO DAILY ACID REFLUX #90 tabs 12/03/23 02/27/24 Rx insulin glargine U-300 conc 300 36 unit (0.12 mL) subcut DAILY 12/10/23 02/27/24 Rx unit/mL (1.5 mL) subcutaneous pen BLOOD SUGARS #4.5 mL (Toujesus SoloStar U-300 Insulin) glimepiride 4 mg tablet 4 mg PO BID BLOOD SUGARS #90 tabs 12/19/23 02/27/24 Rx carvedilol 6.25 mg tablet 6.25 mg PO BID HEART 02/27/24 02/27/24 History Allergy/AdvReac Type Severity Reaction Status Date / Time No Known Allergies Allergy Verified 02/27/24 09:47 Family History Mother CAD (coronary artery disease) Diabetes Myocardial infarction, Onset Age: 48 Father Diabetes Breast cancer Brother Diabetes Brother Cancer Prostate Surgical History Hx of LASIK Hx of colonoscopy History of left heart catheterization (LHC) (~06/01/22) History of arthroscopic surgery of shoulder History of laminectomy (~2007) Presence of coronary angioplasty implant and graft (~08/28/01) Social History (Updated 02/27/24 @ 14:15 by Haritha Cavanaugh) household members: spouse housing: house Smoking Status: Former smoker alcohol intake: current details: occasional substance use type: does not use caffeine: Yes Type: tea Number of servings: 1 what type of physical activity do you participate in: none ROS Constitutional Constitutional: Denies anorexia, change in weight, fever(s), night sweats or weakness Eyes Eyes: Denies blurry vision, change in vision, discharge from eye(s) or eye pain Cardiovascular Cardiovascular: Reports chest pain; Denies claudication, edema or palpitations Respiratory/Chest Respiratory/Chest: Denies cough, hemoptysis, shortness of breath at rest or shortness of breath with exertion Gastrointestinal Gastrointestinal: Denies abdominal pain, constipation, diarrhea, hematemesis, hematochezia, melena, nausea or vomiting Genitourinary Genitourinary: Denies dysuria, hematuria, urinary frequency, urinary hesitancy, urinary incontinence or urinary urgency Musculoskeletal Musculoskeletal: Denies back pain, joint pain, joint stiffness, joint swelling, myalgias or neck pain Neurologic Neurologic: Denies abnormal gait, abnormal speech, dizziness, focal weakness, headache(s), loss of vision, numbness, other visual disturbances, paresthesias, syncope or tingling Psychiatric Psychiatric: Denies anxiety, cognitive impairment, depression, irritability, mood swings or suicidal ideation Endocrine Endocrinology: Denies change in body appearance, cold intolerance, excessive sweating, heat intolerance, polydipsia or polyuria Hematologic/Lymphatic Hematologic/Lymphatic: Denies none, anemia, easy bleeding, easy bruising or lymphadenopathy Allergic/Immunologic Allergic/Immunologic: Denies rhinitis, urticaria, eczemia or asthma Vital Signs Vital Signs Vital Signs: 02/27/24 09:42 02/27/24 09:49 02/27/24 09:56 Temperature 97.3 F L Temperature Source Temporal Pulse Rate 81 Respiratory Rate 15 Respiratory Effort Normal Non-Labored Respiratory Depth Respiratory Pattern Normal Blood Pressure 112/62 Blood Pressure Mean 78 Blood Pressure Source Blood Pressure Position Blood Pressure Location Pulse Ox 98 Oxygen Delivery Method Room Air Nasal Cannula Oxygen Flow Rate (L/min) 2.5 02/27/24 10:06 02/27/24 10:42 02/27/24 11:00 Temperature Temperature Source Pulse Rate 74 74 Respiratory Rate 16 16 14 Respiratory Effort Respiratory Depth Respiratory Pattern Blood Pressure 112/66 114/57 L 110/58 L Blood Pressure Mean 76 75 Blood Pressure Source Blood Pressure Position Blood Pressure Location Pulse Ox 98 98 Oxygen Delivery Method Nasal Cannula Nasal Cannula Oxygen Flow Rate (L/min) 2 2.5 02/27/24 12:00 02/27/24 13:00 02/27/24 13:30 Temperature 97.8 F Temperature Source Pulse Rate 74 74 75 Respiratory Rate 14 14 12 Respiratory Effort Respiratory Depth Respiratory Pattern Blood Pressure 104/54 L 106/54 L 107/66 Blood Pressure Mean 70 71 79 Blood Pressure Source Blood Pressure Position Blood Pressure Location Pulse Ox 98 98 99 Oxygen Delivery Method Nasal Cannula Nasal Cannula Oxygen Flow Rate (L/min) 2.5 2.5 02/27/24 14:23 02/27/24 14:34 Temperature 97.8 F Temperature Source Oral Pulse Rate 76 Respiratory Rate 14 Respiratory Effort Normal Non-Labored Respiratory Depth Normal Respiratory Pattern Normal Blood Pressure 128/69 H Blood Pressure Mean 88 Blood Pressure Source Monitor Blood Pressure Position Semi-Fowlers Blood Pressure Location Right Arm Pulse Ox 97 Oxygen Delivery Method Room Air Room Air Oxygen Flow Rate (L/min) Weight Weight: 76 kg Body Mass Index (BMI) 22.7 Physical Exam Const alert, oriented x3, no apparent distress, average body habitus and healthy appearing General Appearance: cooperative, well kempt and well developed Orientation / Consciousness: awake, oriented to person, oriented to place and oriented to time HEENT normocephalic, head/scalp atraumatic, hearing grossly normal bilaterally and moist oral mucous membranes Eyes PERRL, EOMs intact bilaterally and conjunctivae normal Neck supple, no JVD, thyroid normal and no carotid bruits General: trachea midline Resp normal respiratory effort, no retractions, no use of accessory muscles and clear to auscultation bilaterally Auscultation: Negative for rales, rhonchi or wheezes Cardio regular rate, regular rhythm, S1 normal heart sound, S2 normal heart sound, no murmurs, no rub and no gallops GI normal to inspection, nondistended, normoactive bowel sounds, soft to palpation, non-tender and non-distended Extremity no clubbing, cyanosis or edema Skin no rashes or lesions noted General Skin Exam: no breakdown Neuro oriented x3, CN's II-XII intact bilaterally, moves all extremities, no focal motor deficits and no sensory deficits noted Sensorium / Orientation: awake and alert Speech: speech normal Psych affect normal Results Lab / Micro Data 02/27/24 09:50 02/27/24 09:50 Labs: Laboratory Results - last 24 hr 02/27/24 09:50: WBC 6.8, RBC 4.25 L, Hgb 12.6 L, Hct 37.2 L, MCV 87.5, MCH 29.6, MCHC 33.9, RDW Std Deviation 42.8, RDW Coeff of Rich 13.4, Plt Count 256, MPV 10.0, Immature Gran % (Auto) 0.300, Neut % (Auto) 54.6, Lymph % (Auto) 29.2, M melanie % (Auto) 11.4 H, Eos % (Auto) 4.1, Baso % (Auto) 0.4, Absolute Neuts (auto) 3.7, Absolute Lymphs (auto) 1.98, Nucleated RBC % 0, Sodium 136, Potassium 5.4 H , Chloride 104, Carbon Dioxide 20.0 L, Anion Gap 12, BUN 38 H, Creatinine 1.77 H , Estim Creat Clear Calc 40.59, Est GFR (MDRD) Af Amer 49 L, Est GFR (MDRD) Non- Af 40 L, BUN/Creatinine Ratio 21.5 H, Glucose 329 H, Hemoglobin A1c 10.8 H, Calcium 10.1, Troponin I High Sens 8 02/27/24 12:00: Troponin I High Sens 7 02/27/24 15:50: Troponin I High Sens 6 Imaging Radiology Impression Chest X-Ray 02/27/24 09:56 IMPRESSION: Normal x-ray examination of the chest. Electronically Signed: Perico Allen MD at 10:32 EDT , Assessment & Plan Assessment/Plan (1) Chest pain: PLAN: Plan 1. Chest pain in a patient with known coronary artery disease-again patient was placed in the observation status on PCU, he will be given IV fluids and monitored, cardiac enzymes will be cycled, he will remain on his home medications including his dual antiplatelet therapy. I have elected not to obtain an echocardiogram on the patient. #2 coronary artery disease-patient's stent was placed in 2000, he will remain on dual antiplatelet therapy #3 type 2 diabetes-patient's blood sugars will be monitored, A1c was ordered, sliding scale insulin will be used as needed #4 chronic kidney disease stage III-complicates care, management, recovery, and prognosis, patient will be given IV fluids, labs will be rechecked tomorrow #5 essential hypertension-patient will remain on his home medications, they will be adjusted as needed #6 hyperlipidemia-patient will remain on his statin Total clinical time spent by myself addressing the patient's medical issues, reviewing all of the data, and collaborating with patient's care team: 75 minutes Charges/Coding Visit Charges Inpatient E&M: 33785 Init Hosp L3
[2024-02-27] MEDS: Insulin Lispro 100 UNIT/ML INSULN.PEN SC ×2 (17:51→21:30)
[2024-02-27 17:53] LABS: Bedside Glucose 167 mg/dL (74-106)
[2024-02-27] MEDS: amLODIPine 5 MG Tablet PO (21:34)
[2024-02-27] MEDS: Atorvastatin Calcium 80 MG Tablet PO (21:34)
[2024-02-27] MEDS: Carvedilol 6.25 MG Tablet PO (21:34)
[2024-02-27] MEDS: Isosorbide Mononitrate 30 MG Tablet PO (21:34)
[2024-02-27 21:58] LABS: Bedside Glucose 153 mg/dL (74-106)
[2024-02-28] VITALS (9 sets, daily range): BP systolic 106–140; BP diastolic 57–71; PULSE 69–76; RESP 14–16; TEMP 36.6–36.8; O2SAT 95–98
[2024-02-28 05:25] LABS: Anion Gap 6 (5-15); BUN 26 mg/dL (7-18); Calcium,Total 9.3 mg/dL (8.5-10.1); Chloride 109 mmol/L (98-107); Creatinine, Serum 1.18 mg/dL (0.70-1.30); EST Glomerular Filtration Rate 64 mL/min (>60); Est Glom Filt Rate - Afr Amer 78 mL/min (>60); Estimated Creatinine Clearance 59.93 ml/min; Glucose 94 mg/dL (74-106); Potassium 4.2 mmol/L (3.5-5.1); Sodium Level 142 mmol/L (136-145)
[2024-02-28 06:59] LABS: Bedside Glucose 102 mg/dL (74-106)
[2024-02-28] MEDS: Lisinopril 20 MG Tablet PO (08:55)
[2024-02-28] MEDS: Carvedilol 6.25 MG Tablet PO (08:55)
[2024-02-28] MEDS: Clopidogrel Bisulfate 75 MG Tablet PO (08:55)
[2024-02-28] MEDS: Aspirin E.C. 81 MG Tablet PO (08:55)
[2024-02-28] MEDS: 0.9% Normal Saline (1000mL) 1,000 ML 100 ML IV (09:00)
[2024-02-28 12:19] LABS: Bedside Glucose 106 mg/dL (74-106)
--- NOTE | 2024-02-28 13:01 | PCM.PN.CARD ---
Subjective Subjective Patient seen and evaluated. Appears to be doing well. Underwent cardiac catheterization today. Objective Data Vital Signs: Vital Signs Temp Pulse Resp BP Pulse Ox O2 Del Method O2 Flow Rate 98.2 F 70 15 138/70 H 97 Room Air 2.5 02/28/24 11:44 02/28/24 11:44 02/28/24 11:44 02/28/24 11:44 02/28/24 11:44 02/28/24 11:44 02/27/24 13:00 Oxygen Flow Rate (L/min) 2.5 Oxygen Delivery Method Room Air Weight: 167 lb 8.821 oz Body Mass Index (BMI) 22.7 Intake & Output: Intake and Output for Last 24 Hours 02/26/24 02/27/24 02/28/24 23:59 23:59 23:59 Intake Total 2371.67 / 2621.67 1406.67 / 1406.67 Balance 2371.67 / 2621.67 1406.67 / 1406.67 Lab / Micro Data 02/27/24 09:50 02/28/24 04:27 Labs: Laboratory Results - last 24 hr 02/27/24 09:50: Hemoglobin A1c 10.8 H 02/27/24 15:50: Troponin I High Sens 6 02/27/24 17:24: POC Glucose 167 H 02/27/24 21:29: POC Glucose 153 H 02/28/24 04:27: Sodium 142, Potassium 4.2, Chloride 109 H, Carbon Dioxide 27.0, Anion Gap 6, BUN 26 H, Creatinine 1.18, Estim Creat Clear Calc 59.93, Est GFR (MDRD) Af Amer 78, Est GFR (MDRD) Non-Af 64, BUN/Creatinine Ratio 22.0 H, Glucose 94, Calcium 9.3 02/28/24 06:40: POC Glucose 102 02/28/24 11:41: POC Glucose 106 Cardiology Labs/Tests 02/27/24 09:50: Hemoglobin A1c 10.8 H 02/28/24 04:27: Sodium 142, Potassium 4.2, Chloride 109 H, Carbon Dioxide 27.0, Anion Gap 6, BUN 26 H, Creatinine 1.18, Est GFR (MDRD) Af Amer 78, Est GFR (MDRD) Non-Af 64, BUN/Creatinine Ratio 22.0 H, Glucose 94, Calcium 9.3 Rhythm: EKG: ECHO: Stress Test: Cardiac Cath: PCI: CT Surgery: Holter monitor: EPS: PPM: CXR: Chest CT Scan: Physical Exam Const alert, oriented x3, no apparent distress, average body habitus and healthy appearing General Appearance: cooperative, well kempt and well developed Orientation / Consciousness: awake, oriented to person, oriented to place and oriented to time HEENT normocephalic, head/scalp atraumatic, hearing grossly normal bilaterally and moist oral mucous membranes Eyes PERRL, EOMs intact bilaterally and conjunctivae normal Neck supple, no JVD, thyroid normal and no carotid bruits General: trachea midline Resp normal respiratory effort, no retractions, no use of accessory muscles and clear to auscultation bilaterally Auscultation: Negative for rales, rhonchi or wheezes Cardio regular rate, regular rhythm, S1 normal heart sound, S2 normal heart sound, no murmurs, no rub and no gallops GI normal to inspection, nondistended, normoactive bowel sounds, soft to palpation, non-tender and non-distended Extremity no clubbing, cyanosis or edema Skin no rashes or lesions noted General Skin Exam: no breakdown Neuro oriented x3, CN's II-XII intact bilaterally, moves all extremities, no focal motor deficits and no sensory deficits noted Sensorium / Orientation: awake and alert Speech: speech normal Psych affect normal Assessment & Plan Assessment/Plan (1) History of left heart catheterization (LHC): PLAN: He does have coronary disease status post angioplasty and stenting of the left anterior descending artery. His cardiac catheterization today demonstrated mild to moderate disease noted in the right coronary artery, previously placed into the left anterior descending artery with mild to moderate in-stent stenosis, and occluded circumflex artery which was chronic. His ejection fraction is mildly reduced. Based on the above angiographic findings there do not appear to be any significant changes compared to previous. I would recommend aggressive medical therapy. (2) Essential hypertension: PLAN: Will recommend increasing his carvedilol to 12.5 mg twice a day and addition of amlodipine 5 mg a day to his regimen. He can be followed up as an outpatient.
--- NOTE | 2024-02-28 13:10 | CL.D_ITS ---
Patient Name: MARIBELL LAINEZ Study Date: 02/28/2024 Performing: Jeffrey Lord MD Ht: 72 inches 182.88 cm : 1950 Wt: 167.8 lbs 76 kg Age: 73 Gender: male BSA: 1.98 PROCEDURE(S) PERFORMED [id number])LHC/COR/LV CLINICAL PROFILE AND INDICATIONS Indications: Suspected CAD Heart Failure: None Stress/Imaging Stress/Image Study Performed: No CAD Presentations: Stable angina. CONCLUSIONS Coronary disease with a totally occluded circumflex artery with right to left collaterals moderate disease noted in the left anterior descending artery previously placed stent is patent mild left ventricular systolic dysfunction. Compared to the previous catheterization the above is essentially unchanged. RECOMMENDATIONS Medical therapy DESCRIPTION OF PROCEDURE The patient arrived to the procedure lab. The risks and benefits of the procedure as well as a full description of our services here and current unavailability of surgical backup were fully explained to the patient and/or their significant other prior to the catheterization. The Timeout was completed, verifying the correct patient and procedure. The patient's procedural site was prepped and draped in the usual fashion. Local anesthetic was given subcutaneously to right radial region with Lidocaine 2%. Using a modified Seldinger technique, arterial access was obtained via the right radial artery, a 6Fr sheath was inserted. Right Coronary Artery selective angiography was then performed in multiple views using a 5 Fr. 4.0 [place] catheter. Left Coronary Artery selective angiography was performed in multiple views using a 5 Fr. 4.0 [place] catheter. Left Ventriculography was performed in AG projection using a 5 Fr. [place] catheter. LV to AO pullback pressures were then recorded.The arterial sheath was pulled and a TR Band was applied for hemostasis 13 ml of air CORONARY ANGIOGRAPHY DOMINANCE: Right Dominant LEFT HEART ASSESSMENT Left Ventricular Ejection Fraction: by LV Gram 45 % Lateral Hypokinesis - Moderate LEFT MAIN: No significant disease noted LEFT ANTERIOR DESCENDING ARTERY: Medium size vessel with calcification as well as previously placed stent. There is moderate 40% in-stent stenosis noted with 2 diagonal branches with ostial stenosis present. Left anterior descending artery continues and wraps around the apex of the ventricle with no high-grade stenosis present. CIRCUMFLEX ARTERY: This vessel is totally occluded and fills via right to left collaterals. RIGHT CORONARY ARTERY: Moderate luminal irregularities up to 50% COLLATERAL FLOW: Collateral flow from Right to Left COMPLICATIONS No Complications PROCEDURE MEDICATIONS Fentanyl 50 mcg IV Versed 1 mg IV Oxygen: 2 L/min via nasal cannula Heparin given IA 02/28/2024 12:25:39 Verapamil 2.5mg, Ntg 100mcgs, 3000 units of Heparin given IA 02/28/2024 12:25:39 SUMMARY OF HEMODYNAMIC DATA Time AIR REST ECG 12:12:28 AO 166/84 (118) SA 12:45:48 AO 139/66 (96) 12:47:31 LV 150/9, 14 12:51:21 LV 150/10, 13 12:51:31 LV 0/29, 0 12:51:57 LV 147/11, 14 12:52:06 LVp 159/13, 15 12:52:15 AOp 163/68 (106) 12:52:22 13:05:19 Signed By Jeffrey Lord MD On 02/28/2024 13:10:03 Jeffrey Lord MD
--- NOTE | 2024-02-28 13:34 | DCINST_ITS ---
Discharge Instructions Diet Discharge Diet: 1800 Calorie Control Diet Activity Discharge Activity: Return to Normal Activity Weight Bearing Status: Full weight bearing Follow Up Care Test Results: Test results from this visit will be discussed in further detail at your follow- up appointment, if applicable. Discharge Plan Admission Admit Date/Time: 02/27/24 13:11 Primary Reason for Your Visit: chest pain Attending Provider: Israel Taylor Primary Care Provider: Savanna Sinclair Consulting Providers: Yael Saenz Discharge Orders/Prescriptions Prescriptions: New carvedilol 12.5 mg Tablet 12.5 mg PO BID Qty: 60 0RF Continued cyanocobalamin (vitamin B-12) 5,000 mcg tablet,disintegrating 1,000 mcg PO DAILY ascorbic acid (vitamin C) 500 mg tablet 500 mg PO DAILY aspirin [Adult Low Dose Aspirin] 81 mg tablet,delayed release (DR/EC) 81 mg PO DAILY cholecalciferol (vitamin D3) 25 mcg (1,000 unit) tablet 25 mcg PO BID isosorbide mononitrate 30 mg tablet extended release 24 hr 30 mg PO QHS amlodipine 5 mg tablet 5 mg PO QHS famotidine 20 mg tablet 20 mg PO DAILY Qty: 90 1RF (DME) OneTouch Verio test strips Strip See Rx Instructions .ROUTE .MEDSUPPLY Qty: 100 11RF Rx Instructions: use as directed twice daily t monitor blood glucose for type 2 DM clopidogrel [Plavix] 75 mg tablet 75 mg PO DAILY Qty: 90 3RF metformin 500 mg tablet 1,000 mg PO BID Qty: 180 3RF lisinopril 20 mg tablet 20 mg PO DAILY Qty: 90 3RF atorvastatin 80 mg tablet 80 mg PO QHS Qty: 90 3RF (DME) pen needle, diabetic [Comfort EZ Pen Suches] 32 gauge x 1/4 needle See Rx Instructions .Route Qty: 100 5RF Rx Instructions: once daily to administer insulin.. 6mm pen needle insulin glargine U-300 conc [Toujeo SoloStar U-300 Insulin] 300 unit/mL (1.5 mL) insulin pen 36 unit subcut DAILY Qty: 4.5 5RF glimepiride 4 mg tablet 4 mg PO BID Qty: 90 3RF Discontinued carvedilol 6.25 mg tablet 6.25 mg PO BID Referrals / Follow Up: Savanna Sinclair MD [Primary Care Provider] - Within 1 Month (Discuss your recent elevated hemoglobin A1c result) Cuate Garrison MD [Med Staff - Active Staff] - Within 1 Month Disposition Disposition (needs filled in before D/C Order can be placed): Home, Self Care
--- NOTE | 2024-02-28 13:44 | PCM.DC.SUM ---
Providers Date of Admission: 02/27/24 Date of Discharge: 02/28/24 Primary Care Physician: Dr. Savanna Sinclair MD Consultations 02/27/24 13:46 Consult: Cardiology Routine Consulting Provider: Yael Saenz Reason for Consult: chest pain EMERGENT Consult: No MD Notified: Yes Date Notified: 02/27/24 Time Notified: 13:18 Method of Notification: Verbal Reason For Visit: CHEST PAIN Diagnosis Discharge Diagnosis (1) History of left heart catheterization (LHC): Status: Resolved Code(s): Z98.890 - Other specified postprocedural states (2) Essential hypertension: Status: Chronic Code(s): I10 - Essential (primary) hypertension Plan 1. Musculoskeletal chest pain #2 coronary artery disease-patient's stent was placed in 2000, he will remain on dual antiplatelet therapy #3 Poorly controlled type 2 diabetes-patient's blood sugars will be monitored, A1c was ordered, sliding scale insulin will be used as needed #4 chronic kidney disease stage III-complicates care, management, recovery, and prognosis, patient will be given IV fluids, labs will be rechecked tomorrow #5 essential hypertension-patient will remain on his home medications, they will be adjusted as needed #6 hyperlipidemia-patient will remain on his statin Total clinical time spent by myself addressing the patient's medical issues, reviewing all of the data, and collaborating with patient's care team: 75 minutes Medications at Discharge Home Medications ascorbic acid (vitamin C) 500 mg tablet 500 mg PO DAILY SUPPLEMENT 07/05/21 aspirin 81 mg tablet,delayed release (Adult Low Dose Aspirin) 81 mg PO DAILY [facility] 07/05/21 cyanocobalamin (vitamin B-12) 5,000 mcg disintegrating tablet 1,000 mcg PO DAILY SUPPLEMENT 07/05/21 cholecalciferol (vitamin D3) 25 mcg (1,000 unit) tablet 25 mcg PO BID SUPPLEMENT 07/20/21 blood sugar diagnostic (InvisibleTouch Verio test strips) #100 ea 04/03/23 clopidogrel 75 mg tablet (Plavix) 75 mg PO DAILY BLOOD THINNER #90 tabs 04/22/23 metformin 500 mg tablet 1,000 mg (2 x 500 mg) PO BID BLOOD SUGARS #180 tabs 04/24/23 atorvastatin 80 mg tablet 80 mg PO QHS CHOLESTEROL #90 tabs 06/13/23 lisinopril 20 mg tablet 20 mg PO DAILY BLOOD PRESSURE #90 tabs 06/13/23 pen needle, diabetic 32 gauge x 1/4 (Comfort EZ Pen [place]) #100 ea 10/23/23 amlodipine 5 mg tablet 5 mg PO QHS BLOOD PRESSURE 11/29/23 isosorbide mononitrate 30 mg tablet,extended release 24 hr 30 mg PO QHS HEART 11/29/23 famotidine 20 mg tablet 20 mg PO DAILY ACID REFLUX #90 tabs 12/03/23 insulin glargine U-300 conc 300 unit/mL (1.5 mL) subcutaneous pen (Toujeo SoloStar U-300 Insulin) 36 unit (0.12 mL) subcut DAILY BLOOD SUGARS #4.5 mL 12/10/23 glimepiride 4 mg tablet 4 mg PO BID BLOOD SUGARS #90 tabs 12/19/23 carvedilol 12.5 mg tablet 12.5 mg PO BID #60 tabs 02/28/24 Hospital Course Operations None Procedures Cardiac catheterization Summary of Care Provided Minutes Spent on Discharge: 30 Hospital Course: This 73-year-old white male with a history of coronary artery disease was seen in the emergency room at [facility] with complaints of precordial chest pain that lasted 15 minutes and occurred during activity at work. Workup in the ER included an EKG which showed no evidence of acute ischemic changes, chest x-ray was normal, and the patient's troponin was also normal. Patient's creatinine was slightly elevated. Patient was placed in observation status on PCU and monitored, repeat cardiac enzymes remain normal, patient underwent a cardiac catheterization on 02/28/2024 which showed no change from his previous cardiac catheterization in 2021. It was recommended by cardiology that the patient have medication adjustment. On 02/28/2024, patient was seen and examined: On examination he appeared in good health and spirits. Vital signs as documented. Skin warm and dry and without overt rashes. Neck without JVD, neck was supple, trachea midline, thyroid was normal. Lungs clear bilaterally, normal air movement was noted. Heart exam notable for regular rhythm, normal sounds and absence of murmurs, rubs or gallops. Abdomen unremarkable and without evidence of organomegaly, masses, or abdominal aortic enlargement. Bowel sounds are present, abdomen is not distended. Extremities nonedematous, no cyanosis was noted, no clubbing was noted. Neuro: Cranial nerves II through XII are grossly intact, no focal motor deficits were noted, sensation to light touch and pinprick intact, motor exam 5/5 throughout. Psych: Patient is alert and oriented x3, he does not appear anxious or depressed, he does not appear agitated. Patient was felt to be stable for discharge on 02/28/2024, as an additional note, patient's hemoglobin A1c was highly elevated, he told this examiner that that was normal for him and that his physician in the past had not seem worried about it. I instructed patient to follow-up with his PCP about his elevated A1c. Weight / BMI Weight Weight: 76 kg Body Mass Index (BMI) 22.7 ABG / Lab / Microbiology Data 02/27/24 09:50 02/28/24 04:27 Laboratory: Laboratory Results - last 24 hr 02/27/24 09:50: Hemoglobin A1c 10.8 H 02/27/24 15:50: Troponin I High Sens 6 02/27/24 17:24: POC Glucose 167 H 02/27/24 21:29: POC Glucose 153 H 02/28/24 04:27: Sodium 142, Potassium 4.2, Chloride 109 H, Carbon Dioxide 27.0, Anion Gap 6, BUN 26 H, Creatinine 1.18, Estim Creat Clear Calc 59.93, Est GFR (MDRD) Af Amer 78, Est GFR (MDRD) Non-Af 64, BUN/Creatinine Ratio 22.0 H, Glucose 94, Calcium 9.3 02/28/24 06:40: POC Glucose 102 02/28/24 11:41: POC Glucose 106 D/C Instructions Discharge Diet: 1800 Calorie Control Diet Weight Bearing Status: Full weight bearing Meaningful Use Info Meaningful Use Meaningful Use Diagnoses (Choose all that apply): None applicable Ischemic Stroke Statin Dosing Therapy Reference: STATIN DOSE THERAPY REFERENCE: * Patients > 75 years receive moderate or high dose statin therapy. * Patients 75 years or YOUNGER should receive HIGH intensity statin dose unless contraindicated. You will be required to document reason for non-treatment if statin daily dose does not meet guidelines. HIGH DOSE STATIN THERAPY DAILY Atorvastatin > than or = to 40 mg Rosuvastatin > than or = to 20 mg Amlodipine + Atorvastatin > than or = to 2.5/40 mg Ezetimibe + Simvastatin 10/80 mg Simvastatin 80mg Discharge Plan Admission Admit Date/Time: 02/27/24 13:11 Primary Reason for Your Visit: chest pain Attending Provider: Israel Taylor Primary Care Provider: Savanna Sinclair Consulting Providers: Yael Saenz Discharge Orders/Prescriptions Prescriptions: New carvedilol 12.5 mg Tablet 12.5 mg PO BID Qty: 60 0RF Continued cyanocobalamin (vitamin B-12) 5,000 mcg tablet,disintegrating 1,000 mcg PO DAILY ascorbic acid (vitamin C) 500 mg tablet 500 mg PO DAILY aspirin [Adult Low Dose Aspirin] 81 mg tablet,delayed release (DR/EC) 81 mg PO DAILY cholecalciferol (vitamin D3) 25 mcg (1,000 unit) tablet 25 mcg PO BID isosorbide mononitrate 30 mg tablet extended release 24 hr 30 mg PO QHS amlodipine 5 mg tablet 5 mg PO QHS famotidine 20 mg tablet 20 mg PO DAILY Qty: 90 1RF (DME) OneTouch Verio test strips Strip See Rx Instructions .ROUTE .MEDSUPPLY Qty: 100 11RF Rx Instructions: use as directed twice daily t monitor blood glucose for type 2 DM clopidogrel [Plavix] 75 mg tablet 75 mg PO DAILY Qty: 90 3RF metformin 500 mg tablet 1,000 mg PO BID Qty: 180 3RF lisinopril 20 mg tablet 20 mg PO DAILY Qty: 90 3RF atorvastatin 80 mg tablet 80 mg PO QHS Qty: 90 3RF (DME) pen needle, diabetic [Comfort EZ Pen [place]] 32 gauge x 1/4 needle See Rx Instructions .Route Qty: 100 5RF Rx Instructions: once daily to administer insulin.. 6mm pen needle insulin glargine U-300 conc [Toujeo SoloStar U-300 Insulin] 300 unit/mL (1.5 mL) insulin pen 36 unit subcut DAILY Qty: 4.5 5RF glimepiride 4 mg tablet 4 mg PO BID Qty: 90 3RF Discontinued carvedilol 6.25 mg tablet 6.25 mg PO BID Referrals / Follow Up: Savanna Sinclair MD [Primary Care Provider] - Within 1 Month (Discuss your recent elevated hemoglobin A1c result) Cuate Garrison MD [Med Staff - Active Staff] - Within 1 Month Disposition Disposition (needs filled in before D/C Order can be placed): Home, Self Care Charges/Coding Visit Charges Inpatient E&M: 24739 Disch Hosp
--- NOTE | 2024-02-28 14:05 | CASEMGMT ---
Met with patient to complete CHIRINOS form. CHIRINOS form explained to patient who voiced understanding and signed form. Original form placed in pt?s chart and copy provided to patient. Mona Martinez, Discharge Planning Asst
--- NOTE | 2024-02-28 14:15 | CASEMGMT ---
Patient has order for discharge. RN CM in to discuss needs at discharge. Patient denies need or help at discharge. Patient had no further questions or concerns.
== END 2024-02-28 13:43 | disposition home or self-care (01) ==
LOC: ED 13:10 → PCU 13:48
PROVIDERS: Admitting Provider Internal Medicine; Emergency Provider Emergency Medicine; PCP Internal Medicine; Visit Provider Internal Medicine
DX: I25.118 Atherosclerotic heart disease of native coronary artery with other forms of angina pectoris (principal); Z79.4 Long term (current) use of insulin; E11.22 Type 2 diabetes mellitus with diabetic chronic kidney disease; N18.30 Chronic kidney disease, stage 3 unspecified; I25.5 Ischemic cardiomyopathy; I12.9 Hypertensive chronic kidney disease with stage 1 through stage 4 chronic kidney disease, or unspecified chronic kidney disease; Z95.5 Presence of coronary angioplasty implant and graft; E78.00 Pure hypercholesterolemia, unspecified; Z79.82 Long term (current) use of aspirin; Z79.84 Long term (current) use of oral hypoglycemic drugs; Z87.891 Personal history of nicotine dependence; R55 Syncope and collapse; Z79.02 Long term (current) use of antithrombotics/antiplatelets; Z79.899 Other long term (current) drug therapy; N40.0 Benign prostatic hyperplasia without lower urinary tract symptoms; I65.21 Occlusion and stenosis of right carotid artery; Z86.73 Personal history of transient ischemic attack (TIA), and cerebral infarction without residual deficits; R94.39 Abnormal result of other cardiovascular function study
CPT/HCPCS: 36415; 71045; 80048; 82962; 83036; 84484; 85025; 93005; 93458; 96361; 96374; 96375; 99152; 99153; 99221; 99285; J7030; Q9967; C1769; C1894; G0378; J2405

== ENCOUNTER → 2024-08-11 | Outpatient (CLI) | payer MEDICARE, OTHER, SELFPAY ==
[2024-08-11 06:32] LABS: Absolute Lymphocyte Count 2.07 X10^3/uL (0.83-4.51); Absolute Neutrophil Count 2.6 X10^3/uL (2.0-7.7); Basophil# 0.03 X10^3/uL; Basophil% 0.5 % (0-1); Eosinophil# 0.47 X10^3/uL; Eosinophils% 8.1 % (0-5); Hematocrit 37.3 % (40-54); Hemoglobin 12.7 g/dL (13.0-16.5); Lymphocyte # 2.07 X10^3/ul (0.83-4.51); Lymphocyte % 35.6 % (19-41); Mean Corpuscular Hgb 31.1 pg (27.0-32.0); Mean Corpuscular Volume 91.4 fL (80-94); Mean Platelet Vol. 10.1 fl (6.2-12.0); Monocyte# 0.65 X10^3/uL; Monocyte% 11.2 % (0-10); NRBC Flagged by Analyzer 0 % (0-5); Neutrophil # 2.59 X10^3/uL (2.7-7.7); Neutrophil % 44.4 % (47-70); Platelet Count 240 K/mm3 (150-450); RBC Distribution Width CV 12.3 % (11.6-14.6); RBC Distribution Width SD 41.1 fl (35.1-43.9); Red Blood Count 4.08 M/mm3 (4.6-6.2); White Blood Count 5.8 K/mm3 (4.4-11.0)
[2024-08-11 07:12] LABS: AST(SGOT) 12 U/L (15-37); Alanine Aminotransfer ALT/SGPT 31 U/L (16-61); Albumin, Serum 3.7 g/dL (3.2-5.0); Alkaline Phosphatase 65 U/L (45-117); Cholesterol 162 mg/dL (200); Globulin 3.3 g/dL (2.2-4.2); High Density Lipoprotein 41 mg/dL; Triglycerides 297 mg/dL; Very Low Density Lipoprotein 59 mg/dL (5-40)
[2024-08-11 07:12] LABS: ALB/GLOB Ratio 1.2 RATIO (0.9-2.4); AST(SGOT) 15 U/L (15-37); Alanine Aminotransfer ALT/SGPT 29 U/L (16-61); Albumin, Serum 3.7 g/dL (3.2-5.0); Alkaline Phosphatase 65 U/L (45-117); Anion Gap 6 (5-15); BUN 29 mg/dL (7-18); BUN/Creat Ratio 22.3 RATIO (10-20); Calcium,Total 9.3 mg/dL (8.5-10.1); Chloride 108 mmol/L (98-107); Cholesterol 163 mg/dL (200); EST Glomerular Filtration Rate 57 mL/min (>60); Est Glom Filt Rate - Afr Amer 69 mL/min (>60); Globulin 3.2 g/dL (2.2-4.2); Glucose 208 mg/dL (74-106); High Density Lipoprotein 41 mg/dL; Magnesium 1.2 mg/dL (1.6-2.6); Potassium 4.2 mmol/L (3.5-5.1); Protein, Total 6.9 g/dL (6.4-8.2); Sodium Level 139 mmol/L (136-145); Triglycerides 291 mg/dL; Very Low Density Lipoprotein 58 mg/dL (5-40)
[2024-08-11 07:47] LABS: Vitamin D,25 Hydroxy 36.7 ng/mL
[2024-08-11 07:52] LABS: Hemoglobin A1c 10.7 % (3.8-5.6)
[2024-08-11 11:30] LABS: Free T3 2.2 pg/mL (2.18-3.98); T4 Free Direct 0.84 ng/dL (0.76-1.46)
== END | disposition home or self-care (01) ==
LOC: LAB 06:01
PROVIDERS: Physician Assistant Medical; PCP Internal Medicine; Referring Provider Internal Medicine; Visit Provider Internal Medicine
DX: Z13.220 Encounter for screening for lipoid disorders (principal); E11.59 Type 2 diabetes mellitus with other circulatory complications; E11.22 Type 2 diabetes mellitus with diabetic chronic kidney disease; N18.31 Chronic kidney disease, stage 3a; I12.9 Hypertensive chronic kidney disease with stage 1 through stage 4 chronic kidney disease, or unspecified chronic kidney disease; E78.00 Pure hypercholesterolemia, unspecified; D64.9 Anemia, unspecified; I25.10 Atherosclerotic heart disease of native coronary artery without angina pectoris
CPT/HCPCS: 36415; 80053; 80061; 80076; 82306; 83036; 83735; 84439; 84443; 84481; 85025

== ENCOUNTER → 2024-08-31 | Outpatient (CLI) | payer MEDICARE, OTHER, SELFPAY ==
--- NOTE | 2024-08-31 08:17 | MRI_ITS ---
EXAM: MR LUMBAR SPINE WITHOUT INTRAVENOUS CONTRAST CLINICAL INDICATION: Lumbar radiculopathy TECHNIQUE: Multiplanar and multisequence MR images of the lumbar spine without intravenous contrast. COMPARISON: No relevant prior studies available. FINDINGS: VERTEBRAE: No significant abnormality. No spondylolisthesis. No fracture or spondylolysis. No suspicious marrow space signal abnormalities. Normal lumbar lordosis. SPINAL CORD: No significant abnormality. Normal position and signal intensity of the conus medullaris. SOFT TISSUES: No significant abnormality. DISCS/SPINAL CANAL/NEURAL FORAMINA: L1-L2: Disc height loss and disc desiccation. Mild bilateral facet arthrosis and subtle disc bulge. No significant spinal canal or neural foraminal stenosis. L2-L3: Moderate bilateral facet arthrosis. No disc herniation, spinal canal stenosis, or neural foraminal narrowing. L3-L4: Disc bulge with superimposed right foraminal to extraforaminal disc herniation and mild bilateral facet arthrosis. Moderate bilateral neural foraminal narrowing and mild spinal canal stenosis. No nerve root impingement. L4-L5: Disc bulge and mild bilateral facet arthrosis. Small superimposed central disc herniation. No significant spinal canal or neural foraminal stenosis. L5-S1: Central disc herniation superimposed upon a disc bulge and mild bilateral facet arthrosis. No significant spinal canal or neural foraminal stenosis. MRI/Spine Lumbar (Routine) IMPRESSION: Mild multilevel degenerative changes. No critical spinal canal stenosis and no nerve root impingement. Electronically Signed: Skyler Arriaga, at 20:01 EST ,
== END | disposition home or self-care (01) ==
LOC: MRI 08:02
PROVIDERS: PCP Internal Medicine; Referring Provider Internal Medicine; Visit Provider Internal Medicine
DX: M54.16 Radiculopathy, lumbar region (principal)
CPT/HCPCS: 72148

== ENCOUNTER 2024-10-13 08:00 | Outpatient (RCR) | payer MEDICARE, OTHER, SELFPAY ==
--- NOTE | 2024-08-31 16:45 | HP.PTEVAL ---
Patient's Visit Information Visit Information Visit Information: MARIBELL LAINEZ is a 74 year old M referred to Physical Therapy by Dr. Vito Dejesus MD with a diagnosis of RADICULOPATHY ,LUMBAR. Date of Evaluation: 08/31/24 Physical Therapist: Willie Sena, PT, Cert MDT, OCS Visit Plan Frequency: 2x /Week Duration: 4 Weeks Plan: LOOK AT MRI RESULTS PT INTERVENTIONS DLS ,POSTURAL EX'S ,LE FLEXABILITY ,ACTIVITY MODIFICATION AND MODALITIES Subjective Subjective: This 74 y/o male presents to physical therapy with lumbar radiculopathy. Patient has h/o a L4-5 laminectomy and discectomy in 2005 . Most recently Jul 23 ,patient states he was putting air in car tires and he just bent down and then he had difficulty getting back up. Patient states the pain is all lumbar back and he has been getting some radiating pain down the front of the right leg. Patient seen DR Dejesus did x-rays showed DDD and no instability with flexion/extension. Dr recommended pain management and PT . Patient had MRI today. Pain medication. Aggravating factors driving ,twisting ,lifting . Alleviating factors walking. Patient c/o paresthesia/tingling in right anterior thigh. Pain in right leg is intermittent. Patient condition sleeping good. Coughing/sneezing-. Bowel/bladder-. Patient condition affects QOL and function. Patient goals to decrease pain and finf d out what causes pain . 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 Pain Bilateral Back: Pain Intensity (Out of 10): 7 Pain Intensity Range: 10 Right Lower Extremity: Pain Intensity (Out of 10): 5 Pain Intensity Range: 10 Objective Objective: POSTURE: WFL GAIT: reciprocal pattern NEURO: c/o paresthesia/tingling ,reflexes L3-4,L4-5L5-S1 1/3 ,right hip flexion myotome FLEXABILITY: hamstrings mod -sever tight with + SLR LUMBAR ROM : flexion mod loss pain,extension mod loss pain , side glides mod loss MMT:( peak force ) right quads 25.9 ,hip flexion 22.1 ,hamstrings 4/5 ,ankle 4/5 Special Tests L/S Slump test left side: Negative L/S Slump test right side: Positive L/S Left Straight Leg Raise: Positive L/S Right Straight Leg Raise: Positive Lumbar Standing: Flexion - Mechanical Response: No effect Lumbar Standing: Flexion - Symptoms During Testing: No effect Lumbar Standing: Flexion - Symptoms After Testing: No effect Lumbar Standing: Extension - Mechanical Response: No effect Lumbar Standing: Extension - Symptoms During Testing: Increases Lumbar Standing: Extension - Symptoms After Testing: No worse Lumbar Standing: Right Side Glides - Mechanical Response: No effect Lumbar Standing: Right Side [place] - Symptoms During Testing: No effect Lumbar Standing: Right Side [place] - Symptoms After Testing: No effect Lumbar Standing: Left Side [place] - Mechanical Response: No effect Lumbar Standing: Left Side [place] - Symptoms During Testing: No effect Lumbar Standing: Left Side [place] - Symptoms After Testing: No effect Lumbar Lying: Flexion - Mechanical Response: No effect Lumbar Lying: Flexion - Symptoms During Testing: Increases Lumbar Lying: Flexion - Symptoms After Testing: No worse Comments:: NT Balance/Special Test Scores Oswestry Low Back Score: 20 Goals Goal 1:: Patient to be I with HEP for back Goal Time Frame: 4-6 Weeks Goal 2:: Patient to demonstrate 50% improvement with less pain and improved function Goal Time Frame: 4-6 Weeks Goal 3:: Patient to improve lumbar ROM for function of recovery to PUT ON SHOES Goal Time Frame: 4-6 Weeks Goal 4:: Patient to improve back oswestry score by 5 points Goal Time Frame: 4-6 Weeks Goal 5:: Patient to improve strength of quads /hams /hip peak force by 5-10# to improve function Goal Time Frame: 4-6 Weeks Rehabilitation Potential Physical Therapy Diagnosis: Patient has lumbar radiculopathy with possible disc and foraminal stenosis with pain worse with bending ,lifting some better with walking along with weakness right leg no position or thus benefit from skilled PT Rehabilitation Potential: Good Anticipated Interventions Patient/Client Instruction: Educate patient on: Condition and Plan of Care For the Purpose of:: To decrease pain, To improve muscle performance and motor function, To improve ability to perform ADL's, To increase tolerance to activity/condition/position, To improve ability of physical actions for home/community/work/leisure, To improve health of tissue, To decrease soft tissue restriction, To increase flexibility/ROM and To prevent re-injury Therapeutic Exercise to Include: Strength training, Body mechanics, Postural training, Flexibilty training and Dynamic Lumbar Stabilization For the Purpose of:: To decrease pain, To increase ROM, To improve ability to perform ADL's, To increase tolerance to activity/condition/position, To improve ability of physical actions for home/community/work/leisure, To improve health of tissue, To decrease soft tissue restriction, To increase flexibility/ROM and To prevent re-injury TENS: Yes IF ES: Yes Cryotherapy (ice pack, ice massage): Yes Thermo therapy (hot pack): Yes Ultrasound (thermal/non thermal): Yes For the Purpose of:: To decrease pain, To increase ROM, To improve nutrient delivery to tissue, To increase oxygenation perfusion, To improve health of tissue and To decrease soft tissue restriction Text: Thank you for the opportunity to evaluate your patient. For Medicare and Medicare HMO plans, please review the plan of care and approve it. It will need to be FAXED BACK to us at [phone] for Medicare purposes. For Medicare only, by signing this I certify the plan of care. Please let me know if there are questions or concerns regarding this plan of care. Physician Signature: Date:
--- NOTE | 2024-10-13 08:24 | HP.PTDCSUM ---
Discharge Summary D/C summary: It has been my pleasure to treat MARIBELL LAINEZ referred by Dr. Vito Dejesus MD, with the diagnosis of RADICULOPATHY ,LUMBAR for a total of 9 visit(s). Discharge Date: 10/13/24 Please see the following information for a summary of their discharge status. Subjective Subjective: Doing good . Plan to see Pain management Pain Bilateral Back: Pain Intensity (Out of 10): 2 Right Lower Extremity: Pain Intensity (Out of 10): 0 Overall Improvement % Improvement: 95 Objective Objective/Function: POSTURE: WFL GAIT: reciprocal pattern NEURO: denies paresthesia/tingling ,reflexes L3-4,L4-5L5-S1 1/3 ,MYTOME INTACT FLEXABILITY: hamstrings MIN -SLR LUMBAR ROM : flexion min loss pain,extension min loss pain , side glides WFL MMT:( peak force ) right quads 46.8 ,hip flexion 26,8 ,hamstrings 4/5 ,ankle 4/5 Goals Goal 1:: Patient to be I with HEP for back Goal 2:: Patient to demonstrate 50% improvement with less pain and improved function Goal Progress: Goal Met Goal 3:: Patient to improve lumbar ROM for function of recovery to PUT ON SHOES Goal Progress: Goal Met Goal 4:: Patient to improve back oswestry score by 5 points Goal Progress: Goal Met Goal 5:: Patient to improve strength of quads /hams /hip peak force by 5-10# to improve function Goal Progress: Goal Met Plan Plan: d/c to hep D/C Information Discharge Comments: HEP d/c sentence: If there are questions or concerns regarding this patient's physical therapy, please feel free to call me at [phone]. Thank you for the referral of this patient. Sincerely, Willie Sena, PT, Cert MDT, OCS Balance/Gait/Functional tests Balance/Special Test Scores Oswestry Low Back Score: 0 Improvement % Improvement: 95
== END 2024-10-13 19:00 | disposition home or self-care (01) ==
LOC: PT 08:00
PROVIDERS: PCP Internal Medicine; Referring Provider Orthopaedic Surgery Orthopaedic Surgery of the Spine; Visit Provider Orthopaedic Surgery Orthopaedic Surgery of the Spine
DX: M54.16 Radiculopathy, lumbar region (principal)
CPT/HCPCS: 97014; 97110; 97162; 97530; G0283

== ENCOUNTER → 2024-11-18 | Outpatient (CLI) | payer MEDICARE, OTHER, SELFPAY ==
[2024-11-18 08:29] LABS: Free T3 2.7 pg/mL (2.18-3.98)
== END | disposition home or self-care (01) ==
LOC: LAB 05:50
PROVIDERS: PCP Internal Medicine; Referring Provider Internal Medicine; Visit Provider Internal Medicine
DX: E03.9 Hypothyroidism, unspecified (principal)
CPT/HCPCS: 36415; 84439; 84443; 84481

== ENCOUNTER → 2024-12-30 | Outpatient (CLI) | payer MEDICARE, OTHER, SELFPAY ==
[2024-12-30 06:01] LABS: Bacteria 0 SEEN /hpf (None Seen); Mucous, Urine 0 SEEN /hpf (<or=2+); Red Blood Cells-Urine 0 SEEN /hpf (0-5); Squamous Epithelial Cells - UA 0 SEEN /hpf (0-5); White Blood Cells 0 SEEN /hpf (0-5)
[2024-12-30 06:51] LABS: Color, Urine Yellow (Yellow); Glucose, Dipstick 1000 mg/dl (Normal); Ketone-Dipstick Negative (Negative); Leukocyte Esterase-Dipstick Negative /ul (Negative); Nitrite-Dipstick Negative (Negative); Occult Blood-Urine Negative /ul (Negative); Protein-Dipstick 15 mg/dl (Negative); Specific Gravity, Urine 1.015 (1.002-1.030); Urine Bilirubin Dipstick Negative (Negative); Urine Clarity Clear (Clear); Urine Urobilinogen Normal (Normal)
[2024-12-30 07:51] LABS: Anion Gap 11 (5-15); BUN 23 mg/dL (4-19); BUN/Creat Ratio 17.3 RATIO (10-20); Calcium,Total 9.7 mg/dL (7.6-11.0); Carbon Dioxide 25.5 mmol/L (21.0-32.0); Chloride 106 mmol/L (98-108); Creatinine, Serum 1.31 mg/dL (0.70-1.20); EST Glomerular Filtration Rate 57 (>60); Glucose 159 mg/dL (70-99); Potassium 4.3 mmol/L (3.3-5.1); Sodium Level 143 mmol/L (133-145)
== END | disposition home or self-care (01) ==
LOC: LAB 05:50
PROVIDERS: PCP Internal Medicine; Referring Provider Internal Medicine; Visit Provider Internal Medicine
DX: R33.8 Other retention of urine (principal)
CPT/HCPCS: 36415; 80048; 81001; 87086

== ENCOUNTER → 2024-12-31 | Outpatient (CLI) | payer MEDICARE, OTHER, SELFPAY ==
--- NOTE | 2024-12-31 10:16 | US_ITS ---
PROCEDURE: POST VOID RESIDUAL BLADDER 12/31/2024 REASON FOR EXAM: ACUTE URINARY RETENTION TECHNIQUE: Complete abdominal ultrasound barr-scale images with color doppler. PATIENT PREPARATION: Per protocol COMPARISON: None FINDINGS: Prevoid volume: 75 cc. Postvoid urinary volume: 29 cc Prostatic volume: 104 mL cubed. There is a 3 cm x 2.5 cm x 2.8 cm complex cyst in the right side of the prostate. In the superior aspect of the prostate, there is a 1.9 cm x 2.3 cm x 1.6 cm echogenic focus with cystic changes. US/Post Void Residual Bladder IMPRESSION: Postvoid residual. Prostatic enlargement with a complex cyst in the right side of the prostate as well as a echogenic nodule with cystic areas in the superior portion of the prostate as described. Reading Location: [place] [id number]
== END | disposition home or self-care (01) ==
LOC: US 10:13
PROVIDERS: PCP Internal Medicine; Referring Provider Internal Medicine; Visit Provider Internal Medicine
DX: R33.9 Retention of urine, unspecified (principal)
CPT/HCPCS: 51798

== ENCOUNTER 2025-01-12 14:33 | Inpatient (IN) | payer MEDICARE, OTHER, SELFPAY ==
[2025-01-12 14:34] VITALS: BP 152/78; PULSE 80; RESP 18; TEMP 37; O2SAT 98
[2025-01-12 14:43] VITALS: BP 151/78; PULSE 79; RESP 12; O2SAT 99; BMI 21.2
--- NOTE | 2025-01-12 14:43 | EKG12_ITS ---
Test Reason : CP Blood Pressure : */* mmHG Vent. Rate : 83 BPM Atrial Rate : 83 BPM P-R Int : 150 ms QRS Dur : 90 ms QT Int : 360 ms P-R-T Axes : 50 13 70 degrees QTcB Int : 423 ms Normal sinus rhythm Inferior infarct , age undetermined Abnormal ECG Confirmed by YING LORENZO, EMIGDIO ([id number]), field map editor JIM EDWARDS ([id number]) on 01/13/2025 1:31:42 PM Referred By: UG/TL Confirmed By: EMIGDIO HE MD
--- NOTE | 2025-01-12 14:43 | CT_ITS ---
EXAM: NONCONTRAST CT SCAN OF THE HEAD CLINICAL HISTORY: Dizziness COMPARISON: None TECHNIQUE: Serial axial series through the head were obtained without contrast. 2-D coronal and sagittal reformats were then obtained. FINDINGS: Brain: There is low-density throughout the left posterior temporal region extending to the pre and postcentral cortex with the appearance of encephalomalacia from a remote infarct measuring 7 x 4 cm. There is no acute hemorrhage. There is no midline shift or mass effect. There is no evidence of cerebellar tonsillar herniation. Atherosclerotic calcifications are noted. Ventricles: There is no acute hydrocephalus. Basilar cisterns are patent. Paranasal sinuses: Well-aerated Mastoid air cells: Well-aerated. Calvarium: The bony calvarium is intact. Orbits: The bilateral globes are symmetric, without retrobulbar compressive mass lesion or hemorrhage. CT/STROKE Brain/Head without Cont IMPRESSION: There is low-density throughout the left posterior temporal region extending to the pre and postcentral cortex with the appearance of encephalomalacia from a remote infarct measuring 7 x 4 cm. No acute intracranial pathology. Reading Location: [facility]
[2025-01-12 14:44] VITALS: BMI 21.2
--- NOTE | 2025-01-12 14:49 | CT_ITS ---
PROCEDURE: STROKE CTA HEAD AND NECK W/CON 01/12/2025 REASON FOR EXAM: EXPRESSIVE ASPHASIA TECHNIQUE: CTA head and neck was performed with IV contrast. Multiplanar reformats as well as MIP and 3D reconstructions were generated. CONTRAST: Isovue 370 VOLUME: 97mL RADIATION DOSE SUMMARY: CTDlvol: 20.76+ 19.62 mGy DLP: 811.43 mGycm One or more dose reduction techniques were used (e.g., Automated exposure control, adjustment of the mA and/or kV according to patient size, use of iterative reconstruction technique). COMPARISON: CT of same date FINDINGS: CTA NECK: Aortic Arch: Atherosclerosis.. Brachiocephalic and subclavians: Nonobstructing atherosclerosis.. RIGHT Carotid: Right CCA: Nonobstructing atherosclerosis Right ICA: Occluded at the origin. Right ECA: Likely severe stenosis at the origin. LEFT Carotid: Left CCA: Moderate roughly 40-50% stenosis along the mid to distal portion. Left ICA: Moderate 40% stenosis at the origin. Left ECA: Moderate roughly 40% stenosis of the origin. Vertebrals: Codominant. Arise from the subclavians. Both vertebrals form the basilar. RIGHT Vertebral: 50% stenosis along the V4 segment. Severe roughly 80-90% stenosis along the distal most V4 segment just proximal to the junction with the LEFT vertebral. LEFT Vertebral: Mild/moderate roughly 30% stenosis along the V4 segment. CTA HEAD: Slight limitation related to venous contamination. Anterior circulation: Occluded RIGHT ICA as above with reconstitution of the distal most terminus and RIGHT NARDA/MCA branches via the anterior communicating artery. Mild roughly 25% stenosis of the LEFT carotid siphon Posterior circulation: Diminutive RIGHT P1 segment with likely predominantly origin of the RIGHT MEDICARE SALES REPRESENTATIVE. Severe focal stenosis roughly 90% at the origin of the RIGHT posterior communicating artery, which again largely supplies the RIGHT MEDICARE SALES REPRESENTATIVE. 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 Venous structures: Grossly unremarkable within limits of nondedicated technique. Other: Multilevel spondylosis. Granuloma in the LEFT upper lobe. Small calcified LEFT lobe thyroid nodule... CT/STROKE CTA Head AND Neck W/Con IMPRESSION: 1. Age-indeterminate occlusion of the RIGHT ICA at the origin with reconstituti on intracranially via collateral flow from the anterior communicating artery. 2. Additional multifocal stenoses as detailed, up to severe/90% along the origi n of the RIGHT posterior communicating artery largely supplying the RIGHT posterior cerebral artery greater than the distal R IGHT vertebral artery. 3. 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 Recommend clinical follow-up. 4. Additional description as above. Reading Location: [id number]
[2025-01-12 14:59] LABS: Absolute Lymphocyte Count 1.91 X10^3/uL (0.83-4.51); Absolute Neutrophil Count 3.1 X10^3/uL (2.0-7.7); Basophil# 0.03 X10^3/uL; Basophil% 0.5 % (0-1); Eosinophil# 0.21 X10^3/uL; Eosinophils% 3.6 % (0-5); Hematocrit 36.3 % (40-54); Hemoglobin 12.7 g/dL (13.0-16.5); Lymphocyte # 1.91 X10^3/ul (0.83-4.51); Lymphocyte % 32.3 % (19-41); Mean Corpuscular Volume 88.5 fL (80-94); Monocyte# 0.69 X10^3/uL; Monocyte% 11.7 % (0-10); NRBC Flagged by Analyzer 0 % (0-5); Neutrophil # 3.05 X10^3/uL (2.7-7.7); Neutrophil % 51.6 % (47-70); Platelet Count 270 K/mm3 (150-450); RBC Distribution Width CV 12.7 % (11.6-14.6); RBC Distribution Width SD 41.2 fl (35.1-43.9); White Blood Count 5.9 K/mm3 (4.4-11.0)
[2025-01-12 15:10] LABS: International Normalized Ratio 0.9; Prothrombin Time (Protime)PT. 12.5 SECONDS (11.7-14.9)
[2025-01-12 15:11] LABS: Partial Thromboplast Time 22.3 Seconds (24.1-36.2)
[2025-01-12 15:13] VITALS: BP 166/59; PULSE 77; RESP 14; O2SAT 99
[2025-01-12 15:19] LABS: Bedside Glucose 212 mg/dL (74-106)
--- NOTE | 2025-01-12 15:23 | ED.VIS.STROK ---
HPI History of Present Illness Chief Complaint: Neuro S/Sx Informant: patient and spouse/S.O. Narrative Narrative: I was called out to triage. Brought in by private vehicle with spouse noted symptoms trouble getting his words out 2 PM when he got home from work. Last normal around 845 when he went to work. He has been fatigued for the past week. No specific symptoms of chest pains cough vomiting diarrhea or any urinary symptoms. He had stroke similar symptoms 2016. He ended up 2 weeks later with intracranial hemorrhage with no trauma. Prior to that had MN with 1 stent. He is on aspirin and Plavix. No hemiparesis. No dizziness. No headache. He is on aspirin and Plavix. He is diabetic. No other anticoagulants. Prior similar symptoms: Yes PFSH PFSH Medical History Diabetes Myocardial infarct Lower urinary tract symptoms (LUTS) Acute urinary retention Hypothyroidism Lumbar radiculopathy, acute Near syncope Chest pain Chest pain Wears glasses History of steroid therapy Insulin dependent diabetes mellitus High cholesterol Stroke/cerebrovascular accident Dietary restriction Heartburn Former smoker Cardiology follow-up encounter History of heart attack History of hemorrhagic cerebrovascular accident (CVA) without residual deficits Carotid artery disease Coronary artery disease Dyspnea on exertion Abnormal stress test History of recent pneumonia Hypertriglyceridemia Cardiomyopathy, ischemic History of left heart catheterization (LHC) BPH (benign prostatic hyperplasia) Multiple lacunar infarcts Hemorrhagic cerebrovascular accident (CVA) DDD (degenerative disc disease) Pure hypercholesterolemia CKD (chronic kidney disease) stage 3, GFR 30-59 ml/min Right carotid artery occlusion Bilateral carotid artery stenosis Essential hypertension Type 2 diabetes mellitus Presence of stent in coronary artery (~08/28/01) Atherosclerotic heart disease of redding coronary artery without angina pectoris Home Medications ?Medication ?Instructions ?Recorded ?Last Taken ?Type ascorbic acid (vitamin C) 500 mg 500 mg PO DAILY SUPPLEMENT 07/05/21 01/11/25 History tablet aspirin 81 mg tablet,delayed 81 mg PO DAILY HEART HEALTH 07/05/21 01/11/25 History release (Adult Low Dose Aspirin) cyanocobalamin (vitamin B-12) 1,000 mcg PO DAILY SUPPLEMENT 07/05/21 01/12/25 History 5,000 mcg disintegrating tablet cholecalciferol (vitamin D3) 25 25 mcg PO BID SUPPLEMENT 07/20/21 01/12/25 History mcg (1,000 unit) tablet nitroglycerin 0.4 mg sublingual 0.4 mg sublingual Q5-15M PRN chest 03/16/24 Unknown Rx tablet pain #25 tabs blood sugar diagnostic (OneTouch #100 ea 05/04/24 Unknown Rx Verio test strips) lancets 33 gauge (OneTouch Delica #100 ea 05/04/24 Unknown Rx Plus Lancet) atorvastatin 80 mg tablet 80 mg PO QHS #90 TABLETS 08/10/24 01/11/25 Rx carvedilol 12.5 mg tablet 12.5 mg PO BID #180 tabs 08/10/24 01/12/25 Rx clopidogrel 75 mg tablet (Plavix) 75 mg PO DAILY BLOOD THINNER #90 08/10/24 01/12/25 Rx tabs famotidine 20 mg tablet 20 mg PO DAILY #90 TABLETS 08/10/24 01/11/25 Rx glimepiride 4 mg tablet 4 mg PO BID BLOOD SUGARS #90 tabs 08/10/24 01/12/25 Rx isosorbide mononitrate 30 mg 30 mg PO DAILY HEART #90 tabs 08/10/24 01/11/25 Rx tablet,extended release 24 hr lisinopril 20 mg tablet 20 mg PO DAILY #90 TABLETS 08/10/24 01/12/25 Rx metformin 500 mg tablet 1,000 mg (2 x 500 mg) PO BID BLOOD 08/10/24 01/12/25 Rx SUGARS #360 tabs amlodipine 5 mg tablet 5 mg PO DAILY #90 TABLETS 08/18/24 01/11/25 Rx insulin glargine U-300 conc 300 36 unit (0.12 mL) subcut DAILY 08/18/24 01/12/25 Rx unit/mL (1.5 mL) subcutaneous pen BLOOD SUGARS #4.5 mL (Toujeo SoloStar U-300 Insulin) tamsulosin 0.4 mg capsule 0.4 mg PO QHS #30 caps 12/31/24 01/11/25 Rx pen needle, diabetic 32 gauge x #100 ea 01/04/25 Unknown Rx 1/4 (Comfort EZ Pen [place]) Allergy/AdvReac Type Severity Reaction Status Date / Time No Known Allergies Allergy Verified 01/12/25 14:34 Family History Mother CAD (coronary artery disease) Diabetes Myocardial infarction, Onset Age: 48 Father Diabetes Breast cancer Brother Diabetes Brother Cancer Prostate Surgical History History of coronary artery stent placement History of removal of skin mole Hx of LASIK Hx of colonoscopy History of left heart catheterization (LHC) (~06/01/22) History of arthroscopic surgery of shoulder History of laminectomy (~2007) Presence of coronary angioplasty implant and graft (~08/28/01) Social History household members: spouse housing: house Smoking Status: Former smoker alcohol intake: never details: occasional substance use type: does not use caffeine: Yes Type: tea Number of servings: 1 what type of physical activity do you participate in: none ROS ROS ED Constitutional Constitutional ED: Denies chills, fever(s) or sweats ENT ENT ED: Denies sore throat Cardiovascular Cardiovascular: Denies chest pain, leg edema, palpitations or racing heartbeat Respiratory/Chest Respiratory/Chest: Reports dyspnea; Denies cough or dyspnea on exertion Gastrointestinal Gastrointestinal: Denies abdominal pain, diarrhea, nausea or vomiting Genitourinary Genitourinary ED: Denies dysuria, hematuria or urinary frequency Musculoskeletal Musculoskeletal: Denies back pain, extremity pain or neck pain Integumentary Denies rash or wounds Neurologic Neurologic: Reports other Details: Expressive aphasia ; Denies headache(s), paresthesias or weakness EXAM Physical Exam Const Vital Signs: 01/12/25 14:34 01/12/25 14:43 01/12/25 14:43 Temperature 98.6 F Temperature Source Oral Pulse Rate 80 79 Respiratory Rate 18 12 Blood Pressure 152/78 H 151/78 H Blood Pressure Mean 102 102 Pulse Ox 98 99 Oxygen Delivery Method Room Air Room Air Room Air 01/12/25 15:13 01/12/25 15:30 Temperature Temperature Source Pulse Rate 77 80 Respiratory Rate 14 16 Blood Pressure 166/59 H 151/78 H Blood Pressure Mean 94 102 Pulse Ox 99 98 Oxygen Delivery Method Room Air Room Air Positive well nourished and well developed Constitutional Narrative: Slow speech however no slurring. General Appearance ED: well developed and NAD HEENT Reports moist mucous membranes normocephalic and atraumatic Eyes General Eye ED: Yes normal appearance of both eyes Neck full ROM Chest Wall Chest: Negative for tenderness Resp normal respiratory effort and normal air movement Effort and Inspection: symmetric chest movement; Negative for respiratory distress Cardio regular rate, regular rhythm and no murmurs Peripheral Pulses: pulses 2+ throughout GI normal to inspection, nondistended, normoactive bowel sounds and non-tender Palpation: Negative for guarding or rebound tenderness present Extremity normal to inspection General Extremety ED: Negative for edema or tenderness General Extremity: Negative for edema Neuro oriented x3 and no sensory deficits noted Sensorium / Orientation: awake and alert Skin no rashes or lesions noted and no wounds MDM MDM MDM Narrative Medical decision making narrative: Interventions / MDM: Differential diagnosis: TIA, expressive aphasia, history of coronary disease, history of carotid disease, cerebral aneurysm Diagnosis considered but do not suspect: Intracranial hemorrhage however CT negative. My EKG interpretation: Sinus rate of 83, nonspecific ST for any reciprocal changes. Changes inferior leads no depressions noted Imaging independently reviewed and interpreted by myself: CT brain: No intracranial hemorrhage, encephalomalacia from remote infarct. CT angiogram head and neck: Cerebral aneurysm fusiform 4 mm, right intraparotid occlusion with collaterals. Stenosis right posterior kidney, artery 90%. External documents reviewed: N/A Test considered but not ordered:N/A ED course: Patient resolved symptoms have transient expressive aphasia with trouble getting his words out. NIH of 0. Timeframe within 24 hours stroke team was initiated with CT CT angiogram. 1510: On the monitor with stroke neurologist Dr. Hernandez. He has vascular risk factors. He would like him admitted for MRI studies. He has known carotid disease with narrowing on his review, can be followed by vascular surgery. He recommend metabolic and infectious workup with his fatigue. He is currently on aspirin and Plavix therefore he will continue this. He would like patient's blood pressure maintaining between 120-180. Will plan for admission. 1620: Final read from CT angiogram occluded right ICA with collaterals. Multifocal stenosis 90% along the right posterior communicating artery. Also noted a 4 mm fusiform aneurysm right anterior cerebral artery at the junction of A1 and A2. Patient was following vascular surgeon Dr. Gilman previously. No surgical intervention were discussed. Is being followed. No known history of cerebral aneurysm. Labs creatinine 2.12 from 1.39 compared to 13 days ago. This been no vomiting or diarrhea. He has moist mucous membranes. Will give fluid bolus. Troponin 42. EKG with no ischemic findings. Repeat troponin pending. Re-evaluation: stable Disposition discussed with patient/family/significant other: Case discussed with consulting clinician: N/A This note was generated with [employer] dictation software. It may contain incorrect words, spelling, and punctuation that were not noted in checking the note before signing. Lab Data Labs: Laboratory Results - last 24 hr 01/12/25 01/12/25 01/12/25 14:46 15:01 16:30 WBC 5.9 RBC 4.10 L Hgb 12.7 L Hct 36.3 L MCV 88.5 MCH 31.0 MCHC 35.0 RDW Std Deviation 41.2 RDW Coeff of Rich 12.7 Plt Count 270 MPV 10.0 Immature Gran % (Auto) 0.300 Neut % (Auto) 51.6 Lymph % (Auto) 32.3 [place] % (Auto) 11.7 H Eos % (Auto) 3.6 Baso % (Auto) 0.5 Absolute Neuts (auto) 3.1 Absolute Lymphs (auto) 1.91 Nucleated RBC % 0 PT 12.5 INR 0.9 APTT 22.3 L Sodium 137 Potassium 4.9 Chloride 101 Carbon Dioxide 21.0 Anion Gap 15 BUN 40 H Creatinine 2.12 H Estim Creat Clear Calc 30.79 L Est GFR (MDRD) Non-Af 32 L BUN/Creatinine Ratio 18.9 Glucose 238 H Calcium 10.5 Troponin T High Sens 42 H Troponin T Hi Sens 2 Hr Urine Color Yellow Urine Clarity Clear Urine pH 6.0 Ur Specific [place] 1.015 Urine Protein 30 H Urine Glucose (UA) 1000 H Urine Ketones Negative Urine Occult Blood Negative Urine Nitrite Negative Urine Bilirubin Negative Urine Urobilinogen Normal Ur Leukocyte Esterase Negative Urine RBC 0-5 SEEN Urine WBC 0-5 SEEN Ur Squamous Epith Cells 0-5 SEEN Calcium Oxalate Crystal 1+ Urine Bacteria 0 SEEN Hyaline Casts 0-5 SEEN Urine Mucus 0 SEEN POC Glucose 212 H 01/12/25 17:00 WBC RBC Hgb Hct MCV MCH MCHC RDW Std Deviation RDW Coeff of Rich Plt Count MPV Immature Gran % (Auto) Neut % (Auto) Lymph % (Auto) [place] % (Auto) Eos % (Auto) Baso % (Auto) Absolute Neuts (auto) Absolute Lymphs (auto) Nucleated RBC % PT INR APTT Sodium Potassium Chloride Carbon Dioxide Anion Gap BUN Creatinine Estim Creat Clear Calc Est GFR (MDRD) Non-Af BUN/Creatinine Ratio Glucose Calcium Troponin T High Sens Troponin T Hi Sens 2 Hr 38 H Urine Color Urine Clarity Urine pH Ur Specific [place] Urine Protein Urine Glucose (UA) Urine Ketones Urine Occult Blood Urine Nitrite Urine Bilirubin Urine Urobilinogen Ur Leukocyte Esterase Urine RBC Urine WBC Ur Squamous Epith Cells Calcium Oxalate Crystal Urine Bacteria Hyaline Casts Urine Mucus POC Glucose Radiography Diagnostic Testing: Clinical Impression(s) from Imaging Studies Brain CT 01/12/25 14:43 IMPRESSION: There is low-density throughout the left posterior temporal region extending to the pre and postcentral cortex with the appearance of encephalomalacia from a remote infarct measuring 7 x 4 cm. No acute intracranial pathology. Reading [facility] 01/12/25 14:49 IMPRESSION: 1. Age-indeterminate occlusion of the RIGHT ICA at the origin with reconstitution intracranially via collateral flow from the anterior communicating artery. 2. Additional multifocal stenoses as detailed, up to severe/90% along the origin of the RIGHT posterior communicating artery largely supplying the RIGHT posterior cerebral artery greater than the distal RIGHT vertebral artery. 3. 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 Recommend clinical follow-up. 4. Additional description as above. Reading Location: [id number] Critical Care Time Critical Care Time: Yes Critical care time (excluding procedures): 30-74 minutes, Discussing w/Patient &/or Family/Coal Hauler Operator, Discussing w/Consultants, Arranging Admission or Transfer, Performing Direct Patient Care at Bedside and - (30 minutes) Discharge Plan Disposition Disposition: Acute Care Hospital [facility] Discharge Date/Time: 01/12/25 17:50 NIHSS NIHSS 1a. Level of Consciousness: 0 - Alert; keenly responsive 1b. LOC Questions: 0 - Answers BOTH questions correctly 2. Best Gaze: 0 - Normal 3. Visual: 0 - No visual loss 4. Facial Palsy: 0 - Normal symmetrical movements 5a. Left Arm: 0 - No drift; arm holds 90 (or 45) degrees for full 10 seconds 5b. Right Arm: 0 - No drift; arm holds 90 (or 45) degrees for full 10 seconds 6a. Left Le - No drift; leg holds 30-degree position for full 5 seconds 6b. Right Le - No drift; leg holds 30-degree position for full 5 seconds 7. Limb Ataxia: 0 - Absent 8. Sensory: 0 - Normal; no sensory loss 9. Best Language: 0 - No aphasia; normal 10. Dysarthria: 0 - Normal 11. Extinction and Inattention: 0 - No abnormality Total: 0 Stroke Questions Stroke Team Activated: Yes Reviewed Inclusion/Exclusion criteria: Yes Was Patient considered for Endovascular Intervention?: No IV Thrombolytic Administered: No (Outside the window and not recommended by neurologist)
[2025-01-12 15:30] VITALS: BP 151/78; PULSE 80; RESP 16; O2SAT 98
[2025-01-12 15:35] LABS: Anion Gap 15 (5-15); BUN 40 mg/dL (4-19); BUN/Creat Ratio 18.9 RATIO (10-20); Calcium,Total 10.5 mg/dL (7.6-11.0); Chloride 101 mmol/L (98-108); Creatinine, Serum 2.12 mg/dL (0.70-1.20); EST Glomerular Filtration Rate 32 (>60); Estimated Creatinine Clearance 30.79 ml/min (50-250); Glucose 238 mg/dL (70-99); Potassium 4.9 mmol/L (3.3-5.1); Sodium Level 137 mmol/L (133-145); Troponin T High Sensitivity 42 ng/L (<=22)
[2025-01-12 16:37] LABS: Bacteria 0 SEEN /hpf (None Seen); Mucous, Urine 0 SEEN /hpf (<or=2+)
[2025-01-12 16:40] LABS: Glucose, Dipstick 1000 mg/dl (Normal); Ketone-Dipstick Negative (Negative); Leukocyte Esterase-Dipstick Negative /ul (Negative); Nitrite-Dipstick Negative (Negative); Occult Blood-Urine Negative /ul (Negative); Protein-Dipstick 30 mg/dl (Negative); Specific Gravity, Urine 1.015 (1.002-1.030); Urine Bilirubin Dipstick Negative (Negative); Urine Urobilinogen Normal (Normal)
[2025-01-12 16:48] LABS: Color, Urine Yellow (Yellow); Urine Clarity Clear (Clear)
--- NOTE | 2025-01-12 17:20 | PCM.HP.STD ---
HPI - General General Date of Admission: 01/12/25 HPI Narrative MARIBELL LAINEZ, is a 74 M who presents to the hospital with signs and symptoms consistent with stroke. 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 NIH on arrival was 0. Did not notice any palpitations with this episode of shortness of breath when he was walking up the hill, he states that he can normally walk up the hill without any difficulty. CTA of the head and neck demonstrated a completely occluded right carotid artery with a 50% occlusion of his left carotid artery and his flow on the right side is collateral to the anterior communicating artery he also has 90% occlusion of the origin of the right posterior communicating artery. He is already on aspirin and Plavix as well as high-dose statins which we will continue. [facility] Medical History Diabetes Myocardial infarct Lower urinary tract symptoms (LUTS) Acute urinary retention Hypothyroidism Lumbar radiculopathy, acute Near syncope Chest pain Chest pain Wears glasses History of steroid therapy Insulin dependent diabetes mellitus High cholesterol Stroke/cerebrovascular accident Dietary restriction Heartburn Former smoker Cardiology follow-up encounter History of heart attack History of hemorrhagic cerebrovascular accident (CVA) without residual deficits Carotid artery disease Coronary artery disease Dyspnea on exertion Abnormal stress test History of recent pneumonia Hypertriglyceridemia Cardiomyopathy, ischemic History of left heart catheterization (LHC) BPH (benign prostatic hyperplasia) Multiple lacunar infarcts Hemorrhagic cerebrovascular accident (CVA) DDD (degenerative disc disease) Pure hypercholesterolemia CKD (chronic kidney disease) stage 3, GFR 30-59 ml/min Right carotid artery occlusion Bilateral carotid artery stenosis Essential hypertension Type 2 diabetes mellitus Presence of stent in coronary artery (~08/28/01) Atherosclerotic heart disease of [place] coronary artery without angina pectoris Home Medications ?Medication ?Instructions ?Recorded ?Last Taken ?Type ascorbic acid (vitamin C) 500 mg 500 mg PO DAILY SUPPLEMENT 07/05/21 01/11/25 History tablet aspirin 81 mg tablet,delayed 81 mg PO DAILY HEART HEALTH 07/05/21 01/11/25 History release (Adult Low Dose Aspirin) cyanocobalamin (vitamin B-12) 1,000 mcg PO DAILY SUPPLEMENT 07/05/21 01/12/25 History 5,000 mcg disintegrating tablet cholecalciferol (vitamin D3) 25 25 mcg PO BID SUPPLEMENT 07/20/21 01/12/25 History mcg (1,000 unit) tablet nitroglycerin 0.4 mg sublingual 0.4 mg sublingual Q5-15M PRN chest 03/16/24 Unknown Rx tablet pain #25 tabs blood sugar diagnostic (OneTouch #100 ea 05/04/24 Unknown Rx Verio test strips) lancets 33 gauge (OneTouch Delica #100 ea 05/04/24 Unknown Rx Plus Lancet) atorvastatin 80 mg tablet 80 mg PO QHS #90 TABLETS 08/10/24 01/11/25 Rx carvedilol 12.5 mg tablet 12.5 mg PO BID #180 tabs 08/10/24 01/12/25 Rx clopidogrel 75 mg tablet (Plavix) 75 mg PO DAILY BLOOD THINNER #90 08/10/24 01/12/25 Rx tabs famotidine 20 mg tablet 20 mg PO DAILY #90 TABLETS 08/10/24 01/11/25 Rx glimepiride 4 mg tablet 4 mg PO BID BLOOD SUGARS #90 tabs 08/10/24 01/12/25 Rx isosorbide mononitrate 30 mg 30 mg PO DAILY HEART #90 tabs 08/10/24 01/11/25 Rx tablet,extended release 24 hr lisinopril 20 mg tablet 20 mg PO DAILY #90 TABLETS 08/10/24 01/12/25 Rx metformin 500 mg tablet 1,000 mg (2 x 500 mg) PO BID BLOOD 08/10/24 01/12/25 Rx SUGARS #360 tabs amlodipine 5 mg tablet 5 mg PO DAILY #90 TABLETS 08/18/24 01/11/25 Rx insulin glargine U-300 conc 300 36 unit (0.12 mL) subcut DAILY 08/18/24 01/12/25 07:00 Rx unit/mL (1.5 mL) subcutaneous pen BLOOD SUGARS #4.5 mL (Toujeo SoloStar U-300 Insulin) tamsulosin 0.4 mg capsule 0.4 mg PO QHS #30 caps 12/31/24 01/11/25 Rx pen needle, diabetic 32 gauge x #100 ea 01/04/25 Unknown Rx 09/19 (Comfort EZ [place]) Allergy/AdvReac Type Severity Reaction Status Date / Time No Known Allergies Allergy Verified 01/12/25 14:34 Family History Mother CAD (coronary artery disease) Diabetes Myocardial infarction, Onset Age: 48 Father Diabetes Breast cancer Brother Diabetes Brother Cancer Prostate Surgical History History of coronary artery stent placement History of removal of skin mole Hx of LASIK Hx of colonoscopy History of left heart catheterization (LHC) (~06/01/22) History of arthroscopic surgery of shoulder History of laminectomy (~2007) Presence of coronary angioplasty implant and graft (~08/28/01) Social History (Updated 01/12/25 @ 18:55 by Haritha Cavanaugh) household members: spouse housing: house Smoking Status: Former smoker alcohol intake: never details: occasional substance use type: does not use caffeine: Yes Type: tea Number of servings: 1 what type of physical activity do you participate in: none ROS Constitutional Constitutional: Denies chills, fatigue, fever(s) or malaise Eyes Eyes: Denies blurry vision ENT HEENT: Denies headache(s) or nasal discharge Cardiovascular Cardiovascular: Denies chest pain, dyspnea on exertion or syncope Respiratory/Chest Respiratory/Chest: Denies cough, shortness of breath at rest or shortness of breath with exertion Gastrointestinal Gastrointestinal: Denies constipation, diarrhea, nausea or vomiting Genitourinary Genitourinary: Denies dysuria Neurologic Neurologic: Reports abnormal speech; Denies focal weakness, numbness or tremor(s) Psychiatric Psychiatric: Denies anxiety or depression Vital Signs Vital Signs Vital Signs: 01/12/25 14:34 01/12/25 14:43 01/12/25 14:43 Temperature 98.6 F Temperature Source Oral Pulse Rate 80 79 Respiratory Rate 18 12 Blood Pressure 152/78 H 151/78 H Blood Pressure Mean 102 102 Pulse Ox 98 99 Oxygen Delivery Method Room Air Room Air Room Air 01/12/25 15:13 01/12/25 15:30 Temperature Temperature Source Pulse Rate 77 80 Respiratory Rate 14 16 Blood Pressure 166/59 H 151/78 H Blood Pressure Mean 94 102 Pulse Ox 99 98 Oxygen Delivery Method Room Air Room Air Weight Weight: 157 lb Body Mass Index (BMI) 21.2 Physical Exam Narrative General: Alert, Oriented x3, Cooperative, No apparent distress HEENT: Atraumatic, PERRLA, EOMI, Normocephalic Oral: Moist Mucosa Neck: Supple, No JVD Lungs: Diminished, Normal air movement, No rhonchi, No wheeze, No rales Cardiovascular: Regular rate, Regular Rhythm, Normal S1, Normal S2, No murmurs Abdomen: Soft, Non Tender, Non-Distended, No Hepato-splenomegaly Extremities: No edema, Capillary Refill Less than 3 Seconds Skin: No rashes, No breakdown Musculoskeletal: No Tenderness to Palpation of Joints or Extremities Neurological: No focal neurological deficits, moves all extremities, sensation intact, NIH of 0 Psych/Mental Status: Normal Affect, Appropriate Results Lab / Micro Data 01/12/25 14:46 01/12/25 14:46 Labs: Laboratory Results - last 24 hr 01/12/25 14:46: WBC 5.9, RBC 4.10 L, Hgb 12.7 L, Hct 36.3 L, MCV 88.5, MCH 31.0, MCHC 35.0, RDW Std Deviation 41.2, RDW Coeff of Rich 12.7, Plt Count 270, MPV 10.0, Immature Gran % (Auto) 0.300, Neut % (Auto) 51.6, Lymph % (Auto) 32.3, [place] % (Auto) 11.7 H, Eos % (Auto) 3.6, Baso % (Auto) 0.5, Absolute Neuts (auto) 3.1, Absolute Lymphs (auto) 1.91, Nucleated RBC % 0, PT 12.5, INR 0.9, APTT 22.3 L, Sodium 137, Potassium 4.9, Chloride 101, Carbon Dioxide 21.0, Anion Gap 15, BUN 40 H, Creatinine 2.12 H, Estim Creat Clear Calc 30.79 L, Est GFR (MDRD) Non-Af 32 L, BUN/Creatinine Ratio 18.9, Glucose 238 H, Calcium 10.5, Troponin T High Sens 42 H 01/12/25 15:01: POC Glucose 212 H 01/12/25 16:30: Urine Color Yellow, Urine Clarity Clear, Urine pH 6.0, Ur Specific [place] 1.015, Urine Protein 30 H, Urine Glucose (UA) 1000 H, Urine Ketones Negative, Urine Occult Blood Negative, Urine Nitrite Negative, Urine Bilirubin Negative, Urine Urobilinogen Normal, Ur Leukocyte Esterase Negative Imaging Radiology Impression Brain CT 01/12/25 14:43 IMPRESSION: There is low-density throughout the left posterior temporal region extending to the pre and postcentral cortex with the appearance of encephalomalacia from a remote infarct measuring 7 x 4 cm. No acute intracranial pathology. Reading Location: [facility] Head/Neck CTA 01/12/25 14:49 IMPRESSION: 1. Age-indeterminate occlusion of the RIGHT ICA at the origin with reconstitution intracranially via collateral flow from the anterior communicating artery. 2. Additional multifocal stenoses as detailed, up to severe/90% along the origin of the RIGHT posterior communicating artery largely supplying the RIGHT posterior cerebral artery greater than the distal RIGHT vertebral artery. 3. 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 Recommend clinical follow-up. 4. Additional description as above. Reading Location: [id number] Assessment & Plan Assessment/Plan (1) TIA (transient ischemic attack): PLAN: Plan 1. TIA in the setting of a previous CVA/essential HTN/HLD/CAD status post stent ? Obtain the MRI ? Continue with NIH as ? Maintain his blood pressures greater than 120 and below 180 ? Therefore will hold his home blood pressure medications can be restarted on discharge ? I do recommend outpatient vascular follow-up given his completely occluded right carotid artery and mild left carotid artery stenosis as well as the issues with his posterior circulation ? CT of the head and neck also demonstrated a 4 mm aneurysm therefore I do recommend outpatient follow-up with neurology and evaluation with possible neurosurgery ? Given his shortness of breath will obtain an echocardiogram initial troponin was slightly elevated to 42 with an improvement of 38. May benefit from a 30-day event monitor on discharge 2. DM2/CKD 3 ? Continue with insulin ? Accu-Cheks ACHS ? Will hold his oral medications ? He does have a little bit of an elevated creatinine that does not meet criteria for an JINA, baseline creatinine is around 1.4-1.5 and is currently 2.1 to will monitor and recheck BMP in the morning ? Last A1c in July was elevated 10.7, he will need improved control, we did discuss dietary modifications DVT: SCDs 75 minutes was spent on direct patient care, including documentation as well as chart review and collaboration with colleagues Charges/Coding Visit Charges Inpatient E&M: 85081 Init Hosp L3
[2025-01-12 17:25] LABS: Hyaline Cast 0-5 SEEN /lpf (0-5); Squamous Epithelial Cells - UA 0-5 SEEN /hpf (0-5); White Blood Cells 0-5 SEEN /hpf (0-5)
[2025-01-12 17:26] LABS: Red Blood Cells-Urine 0-5 SEEN /hpf (0-5)
[2025-01-12 17:29] LABS: Troponin T High Sens 2 HR 38 ng/L (<=22)
[2025-01-12 17:29] LABS: Calcium Oxalate Crystals Ur 1+ /hpf (<or=2+)
[2025-01-12 17:33] VITALS: BP 146/66; PULSE 77; RESP 13; TEMP 36.8; O2SAT 97
--- NOTE | 2025-01-12 18:05 | MRI_ITS ---
PROCEDURE: BRAIN WITHOUT CONTRAST 01/12/2025 REASON FOR EXAM: TIA TECHNIQUE: Noncontrast brain MRI. Multiplanar and multisequence images were obtained. COMPARISON: None FINDINGS: BRAIN/PARENCHYMA: No evidence of acute infarction or acute intracranial hemorrhage. There are subcortical and periventricular white matter FLAIR hyperintensities, likely related to chronic microvascular ischemic disease. Moderate-sized area of gliosis and encephalomalacia left frontotemporal lobe, from prior left MCA distribution infarct. Mild generalized volume loss. EXTRA-AXIAL SPACES: No abnormal extra-axial fluid collections. Patent basal cisterns and foramen magnum. MIDLINE SHIFT: None. VENTRICLES: Ventricular enlargement, concordant with degree of generalized volume loss.. SCALP SOFT TISSUES & CALVARIUM: No significant abnormality. VISUALIZED SINUSES & MASTOIDS: No air-fluid levels in the paranasal sinuses. The mastoid air cells are clear. ARTERIAL FLOW VOIDS: Preserved major arterial flow voids indicating gross patency. MRI/Brain without Contrast IMPRESSION: No acute intracranial abnormality; no acute infarct, intracranial hemorrhage or extra-axial collection. Chronic microvascular ischemia, sequela of prior left MCA distribution infarct and involutional changes. Reading Location: [facility]
[2025-01-12 18:53] VITALS: BMI 21.6
--- NOTE | 2025-01-12 18:53 | ECHOCS_ITS ---
Reason For Study Reason For Study: Dyspnea/SOB Procedure This was a 2D Doppler, Color Flow transthoracic echocardiogram. The study was technically difficult. Contrast injection was performed. Exam performed portable in patient room. Left Ventricle Normal LV size. The left ventricular ejection fraction is 55 %. Stage 1 diastolic dysfunction. No regional wall motion abnormalities noted. Right Ventricle Normal RV size. Normal systolic function. Atria Normal left atrium. Normal right atrium. Mitral Valve Normal mitral valve. Tricuspid Valve Normal tricuspid valve. Aortic Valve Trisinus/trileaflet aortic valve. Pulmonic Valve The pulmonic valve is not well visualized. Great Vessels Normal aortic root. The pulmonary artery is normal size. Inferior vena cava collapse with respiration. Pericardium/Pleural No pericardial effusion. Medication Diluted definity 2.5ml given slow IV push to enhance endocardial definition. MMode/2D Measurements & Calculations RVDd: 3.7 cm Ao root diam: 3.3 cm LAV(MOD- bp): 43.8 ml LAV(MOD- bp) Indexed: 22.6 ml/m2 LAV(MOD- sp2): 45.0 ml LAV(MOD- sp4): 38.2 ml SV(MOD-sp4): 50.6 ml SV(sp4- el): 49.9 ml LVAd ap4: 28.5 cm2 LVLd ap4: 7.9 cm SI(MOD-sp4): 26.2 ml/m2 EDV(MOD-sp4): 86.1 ml EDV(sp4-el): 87.4 ml LVAs ap4: 17.2 cm2 LVLs ap4: 6.7 cm ESV(MOD-sp4): 35.4 ml ESV(sp4-el): 37.5 ml EF(MOD-sp4): 58.8 % EF(sp4-el): 57.1 % LA dimension(2D): 3.6 cm LA A4 area: 15.4 cm2 RA A4 area: 8.8 cm2 TAPSE: 2.0 cm Time Measurements MV dec time: 0.23 sec Doppler Measurements & Calculations MV E max po: 51.1 cm/sec Lat Peak E' Po: 8.2 cm/sec Med Peak E' Po: 8.7 cm/sec MV A max po: 77.3 cm/sec E/E' lat: 6.3 E/E' med: 5.9 MV E/A: 0.66 MV V2 max: 91.7 cm/sec MV P1/2t max po: 65.2 cm/sec Ao V2 max: 111.1 cm/sec MV max P.4 mmHg MV P1/2t: 82.2 msec Ao max P.9 mmHg MV V2 mean: 42.8 cm/sec MV dec slope: 232.6 cm/sec2 Ao V2 mean: 75.0 cm/sec MV mean P.90 mmHg MVA(P1/2t): 2.7 cm2 Ao mean P.6 mmHg MV V2 VTI: 25.8 cm Ao V2 VTI: 23.2 cm AV (velocity ratio): 0.89 LV V1 max: 96.9 cm/sec LV V1 max P.8 mmHg LV V1 mean P.0 mmHg LV V1 mean: 66.4 cm/sec LV V1 VTI: 20.6 cm ECHO/Echo Complete W/ Contrast Interpretation Summary Normal LV size. The left ventricular ejection fraction is 55 %. Stage 1 diastolic dysfunction. Contrast injection was performed. The study was technically difficult. Ordering Physician: Bhupinder Kenney Referring Physician: Savanna Sinclair M.D. Performed By: Dwight Murray RCS
[2025-01-12 19:06] VITALS: BP 163/76; PULSE 78; RESP 14; TEMP 37; O2SAT 98
[2025-01-12 19:56] LABS: Troponin T High Sens 4 HR 36 ng/L (<=22)
--- NOTE | 2025-01-12 20:11 | PN.HOSP_ITS ---
Hospitalist Note MRI brain without acute findings.
--- NOTE | 2025-01-12 20:11 | PCM.HOSP.N ---
Hospitalist Note MRI brain without acute findings.
[2025-01-12] MEDS: Famotidine 20 MG Tablet PO (21:23)
[2025-01-12] MEDS: Aspirin E.C. 81 MG Tablet PO (21:23)
[2025-01-12] MEDS: Tamsulosin HCl 0.4 MG Capsule PO (21:23)
[2025-01-12] MEDS: Atorvastatin Calcium 80 MG Tablet PO (21:23)
[2025-01-12] MEDS: Insulin Lispro 100 UNIT/ML INSULN.PEN SC (21:36)
[2025-01-13 01:37] LABS: Bedside Glucose 240 mg/dL (74-106)
[2025-01-13 05:00] VITALS: BP 136/70; PULSE 74; RESP 16; TEMP 36.2; O2SAT 98
[2025-01-13] MEDS: Insulin Glargine-YFGN 100 UNIT/ML Pen 20 UNIT SC (06:04)
[2025-01-13 06:29] LABS: Absolute Lymphocyte Count 1.65 X10^3/uL (0.83-4.51); Absolute Neutrophil Count 2.3 X10^3/uL (2.0-7.7); Basophil# 0.02 X10^3/uL; Basophil% 0.4 % (0-1); Eosinophil# 0.22 X10^3/uL; Eosinophils% 4.6 % (0-5); Hematocrit 38.1 % (40-54); Hemoglobin 13.2 g/dL (13.0-16.5); Lymphocyte # 1.65 X10^3/ul (0.83-4.51); Lymphocyte % 34.4 % (19-41); Mean Corp Hgb Conc 34.6 g/dL (32-36); Mean Corpuscular Hgb 30.8 pg (27.0-32.0); Monocyte# 0.56 X10^3/uL; Monocyte% 11.7 % (0-10); NRBC Flagged by Analyzer 0 % (0-5); Neutrophil # 2.34 X10^3/uL (2.7-7.7); Neutrophil % 48.7 % (47-70); Platelet Count 270 K/mm3 (150-450); RBC Distribution Width CV 12.6 % (11.6-14.6); Red Blood Count 4.28 M/mm3 (4.6-6.2); White Blood Count 4.8 K/mm3 (4.4-11.0)
[2025-01-13 07:10] LABS: Bedside Glucose 152 mg/dL (74-106)
[2025-01-13 07:11] LABS: Cholesterol 165 mg/dL (<=200); High Density Lipoprotein 35 mg/dL; Low Density Lipoprotein Calc. 80 mg/dL; Triglycerides 250 mg/dL; Very Low Density Lipoprotein 50 mg/dL (5-40); cholesterol:hdl ratio screen 4.66
[2025-01-13 07:52] LABS: Anion Gap 13 (5-15); BUN 31 mg/dL (4-19); Calcium,Total 10.1 mg/dL (7.6-11.0); Carbon Dioxide 24.3 mmol/L (21.0-32.0); Chloride 102 mmol/L (98-108); Creatinine, Serum 1.64 mg/dL (0.70-1.20); EST Glomerular Filtration Rate 44 (>60); Estimated Creatinine Clearance 40.47 ml/min (50-250); Glucose 151 mg/dL (70-99); Potassium 4.3 mmol/L (3.3-5.1); Sodium Level 139 mmol/L (133-145)
[2025-01-13 07:56] VITALS: O2SAT 96
--- NOTE | 2025-01-13 09:42 | CDU_ITS ---
Reason For Study Reason For Study: stenosis Rt. Velocities/BP Lt. Velocities/BP Prox CCA 63.9/6.2 cm/sec. Prox CCA 84.2/20.4 cm/sec. Mid CCA 45.9/3.4 cm/sec. Mid CCA 80.6/22.8 cm/sec. Dist CCA 22.0/3.3 cm/sec. Dist CCA 112.5/24.8 cm/sec. Known ICA ocllusion. Prox ICA 128.9/34.0 cm/sec. Rt. ICA/CCA = 0. Mid ICA 106.7/25.5 cm/sec. Prox ECA 327.4/26.0 cm/sec. Dist ICA 102.3/32.0 cm/sec. Rt. Vert. 37.4/5.3 cm/sec. Lt. ICA/CCA = 1.6. Prox ECA 163.8/7.9 cm/sec. Lt. Vert. 79.6/26.7 cm/sec. Right Extracranial There is heterogeneous, irregular atherosclerotic plaque noted in the right common carotid artery. There is intimal thickening but no significant atherosclerotic plaque noted in the right internal carotid artery. The right internal carotid artery is occluded. There is heterogeneous, irregular atherosclerotic plaque noted in the right external carotid artery. The atherosclerotic plaque causes acoustic shadowing. Antegrade flow is noted in the right vertebral artery. Left Extracranial There is heterogeneous, irregular atherosclerotic plaque noted in the left common carotid artery. There is heterogeneous, irregular atherosclerotic plaque noted in the left internal carotid artery. The atherosclerotic plaque causes acoustic shadowing. There is heterogeneous, irregular atherosclerotic plaque noted in the left external carotid artery. Antegrade flow is noted in the left vertebral artery. Procedure Carotid Duplex 56169. This is a Carotid Duplex examination using B-mode, color flow and specral Doppler. Exam performed portable in patient room. VL/Carotid Duplex Ultrasound Interpretation Summary Known occlusion of the right extracranial internal carotid. Moderate (50-69%) stenosis left extracranial internal carotid. Patent and antegrade vertebrals bilaterally. Ordering Physician: Savanna Sinclair M.D. Referring Physician: Renae Rubalcava MD Performed By: Xiao Pelaez RVT
[2025-01-13 09:50] VITALS: BP 133/61; PULSE 76; RESP 14; TEMP 36.4; O2SAT 97
[2025-01-13] MEDS: Clopidogrel Bisulfate 75 MG Tablet PO (09:53)
--- NOTE | 2025-01-13 10:29 | CASEMGMT ---
Social Work Per physician, pt negative for TIA. PHQ9 not completed. Latricia Lopez, IAIN
[2025-01-13] MEDS: Insulin Lispro 100 UNIT/ML INSULN.PEN SC ×3 (11:17→22:00)
[2025-01-13] MEDS: 0.9% Normal Saline (1000mL) 1,000 ML 125 ML IV ×2 (11:26→20:21)
[2025-01-13] MEDS: 0.9% Saline Lock 10 ML Syringe IV (11:26)
[2025-01-13 11:52] LABS: Bedside Glucose 285 mg/dL (74-106)
[2025-01-13 12:13] VITALS: BMI 21.6
[2025-01-13 15:38] VITALS: BP 143/62; PULSE 77; RESP 16; TEMP 36.8; O2SAT 95
--- NOTE | 2025-01-13 15:48 | PN_ITS ---
Subjective Subjective Patient seen and examined. His was by his bedside. He admitted to a sharp, brief headache this morning. He denied any numbness, tingling, chest pain, palpitations, nausea, vomiting or any other symptoms. Review of systems is otherwise negative. His MRI was negative for a stroke. Objective Data Objective Data Vital Signs: Vital Signs Temp Pulse Resp BP Pulse Ox O2 Del Method 98.3 F 77 16 143/62 H 95 Room Air 01/13/25 15:38 01/13/25 15:38 01/13/25 15:38 01/13/25 15:38 01/13/25 15:38 01/13/25 15:38 Oxygen Delivery Method Room Air Weight: 159 lb 9.835 oz Body Mass Index (BMI) 21.6 Intake & Output: Intake and Output for Last 24 Hours 01/11/25 01/12/25 01/13/25 23:59 23:59 23:59 Intake Total 400 / 400 Balance 400 / 400 Lab / Micro Data 01/13/25 05:47 01/13/25 05:47 Labs: Laboratory Results - last 24 hr 01/12/25 16:30: Urine Color Yellow, Urine Clarity Clear, Urine pH 6.0, Ur Specific [place] 1.015, Urine Protein 30 H, Urine Glucose (UA) 1000 H, Urine Ketones Negative, Urine Occult Blood Negative, Urine Nitrite Negative, Urine Bilirubin Negative, Urine Urobilinogen Normal, Ur Leukocyte Esterase Negative, Urine RBC 0-5 SEEN, Urine WBC 0-5 SEEN, Ur Squamous Epith Cells 0-5 SEEN, Calcium Oxalate Crystal 1+, Urine Bacteria 0 SEEN, Hyaline Casts 0-5 SEEN, Urine Mucus 0 SEEN 01/12/25 17:00: Troponin T Hi Sens 2 Hr 38 H 01/12/25 19:10: Troponin T Hi Sens 4Hr 36 H 01/12/25 21:28: POC Glucose 240 H 01/13/25 05:47: WBC 4.8, RBC 4.28 L, Hgb 13.2, Hct 38.1 L, MCV 89.0, MCH 30.8, MCHC 34.6, RDW Std Deviation 41.0, RDW Coeff of Rich 12.6, Plt Count 270, MPV 10.0, Immature Gran % (Auto) 0.200, Neut % (Auto) 48.7, Lymph % (Auto) 34.4, M melanie % (Auto) 11.7 H, Eos % (Auto) 4.6, Baso % (Auto) 0.4, Absolute Neuts (auto) 2.3, Absolute Lymphs (auto) 1.65, Nucleated RBC % 0, Sodium 139, Potassium 4.3, Chloride 102, Carbon Dioxide 24.3, Anion Gap 13, BUN 31 H, Creatinine 1.64 H, E stim Creat Clear Calc 40.47 L, Est GFR (MDRD) Non-Af 44 L, BUN/Creatinine Ratio 19.0, Glucose 151 H, Calcium 10.1, Triglycerides 250 H, Cholesterol 165, LDL Cholesterol, Calc 80, VLDL Cholesterol 50 H, HDL Cholesterol 35 L, Cholesterol/HDL Ratio 4.66 01/13/25 06:01: POC Glucose 152 H 01/13/25 11:15: POC Glucose 285 H Radiography Diagnostic Testing: Radiology Impression Brain MRI 01/12/25 18:05 IMPRESSION: No acute intracranial abnormality; no acute infarct, intracranial hemorrhage or extra-axial collection. Chronic microvascular ischemia, sequela of prior left MCA distribution infarct and involutional changes. Reading Location: [facility] Echocardiogram 01/12/25 18:53 Interpretation Summary Normal LV size. The left ventricular ejection fraction is 55 %. Stage 1 diastolic dysfunction. Contrast injection was performed. The study was technically difficult. Ordering Physician: Bhupinder Kenney Referring Physician: Savanna Sinclair M.D. Performed By: Dwight Murray RCS Physical Exam Const alert, oriented x3, no apparent distress and well nourished General Appearance: cooperative and well developed HEENT normocephalic, head/scalp atraumatic, moist oral mucous membranes and oropharynx normal Eyes PERRL and EOMs intact bilaterally Neck no lymphadenopathy and supple Lymph Lymphatic: no lymphadenopathy noted and no lymphedema noted Resp normal respiratory effort, normal air movement and clear to auscultation bilaterally Cardio regular rate, regular rhythm, S1 normal heart sound, S2 normal heart sound and no murmurs GI normal to inspection, nondistended, normoactive bowel sounds, soft to palpation, non-tender and non-distended Extremity normal capillary refill, no clubbing, cyanosis or edema and no calf tenderness General Extremity: no tenderness to palpation of joints or extremities Skin General Skin Exam: no breakdown Neuro CN's II-XII intact bilaterally, no focal motor deficits and no sensory deficits noted Motor Exam: strength 5/5 throughout and general weakness Psych thought process normal and cooperative Appearance: appropriate Assessment & Plan Assessment/Plan (1) TIA (transient ischemic attack): PLAN: Plan #TIA * CT of the brain showed no acute intracranial pathology and MRI of the brain also showed no evidence of stroke. * CTA of the head and neck that showed a 4 mm aneurysm and CTA of the head and neck showed completely occluded right carotid and mild left carotid artery stenosis. * Vascular surgery consulted in light of the CTA head and neck findings. * Does have a previous history of stroke so on aspirin and statin as well as Plavix. * Symptoms have resolved. Medications continued. * 2D echo showed EF of 55% with stage I diastolic dysfunction. * #JINA: * Creatinine is elevated at 1.64. * Was around 2 on admission. * Hydrate gently with IV fluids overnight and monitor. His baseline creatinine is around 1.1 from February 2024. #Hypertension: Resume BP meds as stroke ruled out. IV hydralazine as needed. On amlodipine, lisinopril and Imdur #Type 2 diabetes mellitus: Hold metformin and glimepiride. Continue Lantus. insulin sliding scale. Accu-Cheks ACHS. DVT prophylaxis: SCDs Charges/Coding Visit Charges Inpatient E&M: 73205 Subs Hosp L2
[2025-01-13 16:32] LABS: Bedside Glucose 385 mg/dL (74-106)
[2025-01-13 19:00] VITALS: PULSE 79
[2025-01-13] MEDS: Tamsulosin HCl 0.4 MG Capsule PO (22:00)
[2025-01-13] MEDS: Aspirin E.C. 81 MG Tablet PO (22:00)
[2025-01-13] MEDS: Atorvastatin Calcium 80 MG Tablet PO (22:00)
[2025-01-13 22:04] VITALS: BP 151/76; PULSE 79; RESP 15; TEMP 36.8; O2SAT 96
[2025-01-13 23:49] LABS: Bedside Glucose 227 mg/dL (74-106)
[2025-01-14 00:39] VITALS: BMI 21.6
[2025-01-14 02:40] VITALS: PULSE 76
[2025-01-14 03:56] VITALS: BP 157/74; PULSE 74; RESP 16; TEMP 36.7; O2SAT 98
[2025-01-14 05:24] LABS: Absolute Lymphocyte Count 1.91 X10^3/uL (0.83-4.51); Absolute Neutrophil Count 2.6 X10^3/uL (2.0-7.7); Basophil# 0.01 X10^3/uL; Basophil% 0.2 % (0-1); Eosinophil# 0.21 X10^3/uL; Eosinophils% 3.9 % (0-5); Hematocrit 36.6 % (40-54); Hemoglobin 12.7 g/dL (13.0-16.5); Lymphocyte # 1.91 X10^3/ul (0.83-4.51); Lymphocyte % 35.2 % (19-41); Mean Corp Hgb Conc 34.7 g/dL (32-36); Mean Corpuscular Hgb 30.8 pg (27.0-32.0); Mean Corpuscular Volume 88.8 fL (80-94); Monocyte# 0.72 X10^3/uL; Monocyte% 13.3 % (0-10); NRBC Flagged by Analyzer 0 % (0-5); Neutrophil # 2.56 X10^3/uL (2.7-7.7); Neutrophil % 47.2 % (47-70); Platelet Count 253 K/mm3 (150-450); RBC Distribution Width CV 12.6 % (11.6-14.6); RBC Distribution Width SD 41.3 fl (35.1-43.9); Red Blood Count 4.12 M/mm3 (4.6-6.2); White Blood Count 5.4 K/mm3 (4.4-11.0)
[2025-01-14 05:45] LABS: Anion Gap 10 (5-15); BUN 26 mg/dL (4-19); BUN/Creat Ratio 18.3 RATIO (10-20); Calcium,Total 9.5 mg/dL (7.6-11.0); Carbon Dioxide 23.5 mmol/L (21.0-32.0); Chloride 106 mmol/L (98-108); EST Glomerular Filtration Rate 53 (>60); Glucose 113 mg/dL (70-99); Potassium 4.1 mmol/L (3.3-5.1); Sodium Level 140 mmol/L (133-145)
[2025-01-14] MEDS: Insulin Glargine-YFGN 100 UNIT/ML Pen 20 UNIT SC (07:45)
[2025-01-14 08:19] LABS: Bedside Glucose 121 mg/dL (74-106)
[2025-01-14] MEDS: Clopidogrel Bisulfate 75 MG Tablet PO (09:57)
[2025-01-14] MEDS: Famotidine 20 MG Tablet PO (09:57)
[2025-01-14 10:00] VITALS: BP 150/71; PULSE 81; RESP 16; TEMP 36.5; O2SAT 96
--- NOTE | 2025-01-14 11:29 | CASEMGMT ---
Addendum entered by Lester Vergara 01/14/25 11:55: Pt now states that this appt time does not work for the pt. Pt states that he will call and make his own appt now and denies further concerns or needs. Addendum entered by Lester Vergara 01/14/25 11:51: This RN CM noted that ST is recommending additional OP ST. Pt states that he prefers to attend and would like this RN CM to schedule the appt for either Saturday or Saturday afternoons. Rx has been signed by the MD and faxed to [facility]. TC to [facility] who states that they can see the pt on 01/25 @ 1430. DC plan updated. Pt denies further needs. Original Note: DONNIE MCKEON Assessment Face to Face with patient for initial transition planning/care coordination assessment. DONNIE MCKEON introduced self and role at [facility], pt voices understanding. Pt is A&Ox4 and is resting comfortably in bed and is calm. Pt at bedside. Care providers, pharmacy, and demographics verified. Admitting dx: DESIREE VALDEZ Strata: 2 PCP: Savanna Sinclair Specialists: [facility]. Pt may be referred by the hospitalist to Vascular and/or a Neurologist at the time of DC. Pt states that his will make the f/u appt if necessary. [facility]erred [facility]acy: [facility] Insurance: [employer] A/B, [facility] Prescription Benefit: Yes LNOK: Charley (W) Living Arrangements: Pt lives with his in a single story home with 2 steps to enter ADLs/IADLs: Ind Transportation: self, . Denies concerns DME: Grab bars in shower. Functioning BGM with sufficient supplies. Pt states that he takes insulin shots and that he has enough pen needles. Pt denies further DME. HHC/SNF: Denies hx or needs Pt?s goal: Home Plan: home with pt , anticipate no additional needs. 6-Click is 24 and pt was cleared by PT. Pt denies the need for OP Tx. Pt plans to f/u with the recommended specialist as an OP after Dc. Pt and pt deny further questions or concerns at this time. Report given to DATA ARCHITECT MANAGER CM. Ramu Vergara RN, CM
[2025-01-14 11:50] VITALS: BP 150/71; PULSE 81; RESP 16; TEMP 36.5; O2SAT 96
[2025-01-14] MEDS: Insulin Lispro 100 UNIT/ML INSULN.PEN SC (11:50)
--- NOTE | 2025-01-14 12:08 | PCM.DC.SUM ---
Providers Date of Admission: 01/13/25 Date of Discharge: 01/14/25 Primary Care Physician: Dr. Savanna Sinclair MD Reason For Visit: TIA Diagnosis Discharge Diagnosis (1) TIA (transient ischemic attack): Status: Acute Code(s): G45.9 - Transient cerebral ischemic attack, unspecified Plan #TIA CT of the brain showed no acute intracranial pathology and MRI of the brain also showed no evidence of stroke. CTA of the head and neck that showed a 4 mm aneurysm and CTA of the head and neck showed completely occluded right carotid and mild left carotid artery stenosis. Vascular surgery consulted in light of the CTA head and neck findings. Does have a previous history of stroke so on aspirin and statin as well as Plavix. Symptoms have resolved. Medications continued. 2D echo showed EF of 55% with stage I diastolic dysfunction. #JINA: Creatinine is elevated at 1.64. Was around 2 on admission. Hydrate gently with IV fluids overnight and monitor. His baseline creatinine is around 1.1 from February 2024. #Hypertension: Resume BP meds as stroke ruled out. IV hydralazine as needed. On amlodipine, lisinopril and Imdur #Type 2 diabetes mellitus: Hold metformin and glimepiride. Continue Lantus. insulin sliding scale. Accu-Cheks ACHS. DVT prophylaxis: SCDs Medications at Discharge Home Medications ascorbic acid (vitamin C) 500 mg tablet 500 mg PO DAILY SUPPLEMENT 07/05/21 aspirin 81 mg tablet,delayed release (Adult Low Dose Aspirin) 81 mg PO DAILY HEART HEALTH 07/05/21 cyanocobalamin (vitamin B-12) 5,000 mcg disintegrating tablet 1,000 mcg PO DAILY SUPPLEMENT 07/05/21 cholecalciferol (vitamin D3) 25 mcg (1,000 unit) tablet 25 mcg PO BID SUPPLEMENT 07/20/21 nitroglycerin 0.4 mg sublingual tablet 0.4 mg sublingual Q5-15M PRN chest pain #25 tabs 03/16/24 blood sugar diagnostic (OneTouch Verio test strips) #100 ea 05/04/24 lancets 33 gauge (OneTouch Delica Plus Lancet) #100 ea 05/04/24 atorvastatin 80 mg tablet 80 mg PO QHS #90 TABLETS 08/10/24 carvedilol 12.5 mg tablet 12.5 mg PO BID #180 tabs 08/10/24 clopidogrel 75 mg tablet (Plavix) 75 mg PO DAILY BLOOD THINNER #90 tabs 08/10/24 famotidine 20 mg tablet 20 mg PO DAILY #90 TABLETS 08/10/24 glimepiride 4 mg tablet 4 mg PO BID BLOOD SUGARS #90 tabs 08/10/24 isosorbide mononitrate 30 mg tablet,extended release 24 hr 30 mg PO DAILY HEART #90 tabs 08/10/24 lisinopril 20 mg tablet 20 mg PO DAILY #90 TABLETS 08/10/24 metformin 500 mg tablet 1,000 mg (2 x 500 mg) PO BID BLOOD SUGARS #360 tabs 08/10/24 amlodipine 5 mg tablet 5 mg PO DAILY #90 TABLETS 08/18/24 insulin glargine U-300 conc 300 unit/mL (1.5 mL) subcutaneous pen (Toujeo SoloStar U-300 Insulin) 36 unit (0.12 mL) subcut DAILY BLOOD SUGARS #4.5 mL 08/18/24 tamsulosin 0.4 mg capsule 0.4 mg PO QHS #30 caps 12/31/24 pen needle, diabetic 32 gauge x 1/4 (Comfort EZ Pen [place]) #100 ea 01/04/25 Hospital Course Operations None Procedures 2-D Echocardiogram Summary of Care Provided Minutes Spent on Discharge: 45 Hospital Course: Patient is a 74-year-old male with past medical history as outlined was admitted through the ED on 01/12/2025 with a complaint of shortness of breath and expressive aphasia while at work. He had a history of a stroke with residual expressive aphasia. 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 On the day of admission he was walking up a hill at work and the above symptoms started. He could not get his words out so the EMS was called to bring him to the ED. Stroke alert was called. On admission the symptoms had resolved and NIH stroke scale was 0. CT of the brain showed no acute intracranial pathology and CT of the head and neck showed a totally occluded right carotid artery with 50% occlusion of his left carotid artery and flow on the right side was collateral to the anterior communicating artery. He also had 90% occlusion of the origin of the right posterior communicating artery. Patient was on aspirin and Plavix as well as high intensity statin so this was continued. Neurology was consulted. He had MRI of the brain which was negative. Hospital course was indicated by JINA which resolved with hydration. He was discharged home on 01/14/2025. He had a carotid ultrasound which showed known occlusion of the right extracranial carotid artery and moderate 50 to 69% stenosis of the left extracranial internal carotid artery with patent and antegrade vertebrals bilaterally.. He already had an appointment scheduled with vascular surgery on outpatient basis he was counseled to follow-up with vascular surgery. He is also to follow-up with his PCP within 1 to 2 weeks. Patient seen and examined prior to discharge. His was by his bedside. He had no active complaints and had an uneventful night. Review of systems otherwise negative. Labs and vitals reviewed. Home medication reviewed and reconciled. Physical Exam Const alert, oriented x3, no apparent distress and well nourished General Appearance: cooperative, comfortable, well kempt and well developed Orientation / Consciousness: awake Exam Limitations: no limitations HEENT normocephalic, head/scalp atraumatic, hearing grossly normal bilaterally, moist oral mucous membranes and oropharynx normal Eyes PERRL and EOMs intact bilaterally Neck no lymphadenopathy and supple Lymph Lymphatic: no lymphadenopathy noted and no lymphedema noted Resp normal respiratory effort, normal air movement and clear to auscultation bilaterally Cardio regular rate, regular rhythm, S1 normal heart sound, S2 normal heart sound and no murmurs GI normal to inspection, nondistended, normoactive bowel sounds, soft to palpation, non-tender and non-distended Extremity normal to inspection, full ROM, normal capillary refill, no clubbing, cyanosis or edema and no calf tenderness General Extremity: no tenderness to palpation of joints or extremities Skin no rashes or lesions noted General Skin Exam: no breakdown Neuro oriented x3, CN's II-XII intact bilaterally, moves all extremities, no focal motor deficits and no sensory deficits noted Sensorium / Orientation: awake and alert Motor Exam: strength 5/5 throughout and general weakness Psych thought process normal and cooperative Appearance: appropriate Weight / BMI Weight Weight: 159 lb 9.835 oz Body Mass Index (BMI) 21.6 ABG / Lab / Microbiology Data 01/14/25 04:47 01/14/25 04:47 Laboratory: Laboratory Results - last 24 hr 01/13/25 15:56: POC Glucose 385 H 01/13/25 21:59: POC Glucose 227 H 01/14/25 04:47: WBC 5.4, RBC 4.12 L, Hgb 12.7 L, Hct 36.6 L, MCV 88.8, MCH 30.8, MCHC 34.7, RDW Std Deviation 41.3, RDW Coeff of Rich 12.6, Plt Count 253, MPV 10.0, Immature Gran % (Auto) 0.200, Neut % (Auto) 47.2, Lymph % (Auto) 35.2, [place] % (Auto) 13.3 H, Eos % (Auto) 3.9, Baso % (Auto) 0.2, Absolute Neuts (auto) 2.6, Absolute Lymphs (auto) 1.91, Nucleated RBC % 0, Sodium 140, Potassium 4.1, Chloride 106, Carbon Dioxide 23.5, Anion Gap 10, BUN 26 H, Creatinine 1.40 H, Estim Creat Clear Calc 47.40 L, Est GFR (MDRD) Non-Af 53 L, BUN/Creatinine Ratio 18.3, Glucose 113 H, Calcium 9.5 01/14/25 07:39: POC Glucose 121 H 01/14/25 11:49: POC Glucose 254 H Radiography Diagnostic Testing: Radiology Impression Carotid Duplex 01/13/25 09:42 Interpretation Summary Known occlusion of the right extracranial internal carotid. Moderate (50-69%) stenosis left extracranial internal carotid. Patent and antegrade vertebrals bilaterally. Ordering Physician: Savanna Sinclair M.D. Referring Physician: Renae Rubalcava MD Performed By: Xiao Pelaez RVT D/C Instructions Discharge Diet: Low fat / Low cholesterol Discharge Activity: Return to Normal Activity Weight Bearing Status: Weight bearing as tolerated Call your doctor if you observe: Fever of 101 or Higher, Shortness of breath, Dizziness and Swelling in the ankles DC O2, CPAP, BIPAP Needs Home O2 Discharge instructions: No DC home with Oxygen: No Meaningful Use Info Meaningful Use Meaningful Use Diagnoses (Choose all that apply): None applicable Ischemic Stroke Statin Dosing Therapy Reference: STATIN DOSE THERAPY REFERENCE: * Patients > 75 years receive moderate or high dose statin therapy. * Patients 75 years or YOUNGER should receive HIGH intensity statin dose unless contraindicated. You will be required to document reason for non-treatment if statin daily dose does not meet guidelines. HIGH DOSE STATIN THERAPY DAILY Atorvastatin > than or = to 40 mg Rosuvastatin > than or = to 20 mg Amlodipine + Atorvastatin > than or = to 2.5/40 mg Ezetimibe + Simvastatin 10/80 mg Simvastatin 80mg Discharge Plan Admission Admit Date/Time: 01/13/25 15:02 Primary Reason for Your Visit: stroke like symptoms Attending Provider: Renae Rubalcava Primary Care Provider: Savanna Sinclair Consulting Providers: Bhupinder Kenney Instructions Patient Instructions: TIA Dc Discharge Orders/Prescriptions Prescriptions: Continued cyanocobalamin (vitamin B-12) 5,000 mcg tablet,disintegrating 1,000 mcg PO DAILY ascorbic acid (vitamin C) 500 mg tablet 500 mg PO DAILY aspirin [Adult Low Dose Aspirin] 81 mg tablet,delayed release (DR/EC) 81 mg PO DAILY cholecalciferol (vitamin D3) 25 mcg (1,000 unit) tablet 25 mcg PO BID nitroglycerin 0.4 mg tablet, sublingual 0.4 mg sublingual Q5-15M PRN (Reason: chest pain) Qty: 25 3RF Rx Instructions: do not exceed 3 doses per episode (DME) OneTouch Verio test strips Strip See Rx Instructions .ROUTE .MEDSUPPLY Qty: 100 11RF Rx Instructions: use as directed twice daily t monitor blood glucose for type 2 DM (DME) lancets [OneTouch Delica Plus Lancet] 33 gauge misc See Rx Instructions .Route Qty: 100 0RF Rx Instructions: As directed Twice Daily to monitor blood glucose for DM II carvedilol 12.5 mg tablet 12.5 mg PO BID Qty: 180 3RF isosorbide mononitrate 30 mg tablet extended release 24 hr 30 mg PO DAILY Qty: 90 3RF atorvastatin 80 mg tablet 80 mg PO QHS Qty: 90 3RF clopidogrel [Plavix] 75 mg tablet 75 mg PO DAILY Qty: 90 3RF famotidine 20 mg tablet 20 mg PO DAILY Qty: 90 3RF glimepiride 4 mg tablet 4 mg PO BID Qty: 90 3RF lisinopril 20 mg tablet 20 mg PO DAILY Qty: 90 3RF metformin 500 mg tablet 1,000 mg PO BID Qty: 360 3RF amlodipine 5 mg tablet 5 mg PO DAILY Qty: 90 3RF Patient Comments: PT TAKES AT BEDTIME insulin glargine U-300 conc [Toujeo SoloStar U-300 Insulin] 300 unit/mL (1.5 mL) insulin pen 36 unit subcut DAILY Qty: 4.5 5RF tamsulosin 0.4 mg capsule 0.4 mg PO QHS Qty: 30 2RF (DME) pen needle, diabetic [Comfort EZ Pen [place]] 32 gauge x 1/4 needle See Rx Instructions .Route Qty: 100 5RF Rx Instructions: once daily to administer insulin.. 6mm pen needle Referrals / Follow Up: Mookie Werner MD [Med Staff - Active Staff] - Within 1 Month Savanna Sinclair MD [Primary Care Provider] - Within 1 Week Disposition Disposition (needs filled in before D/C Order can be placed): Home, Self Care Charges/Coding Visit Charges Inpatient E&M: 00080 Disch Hosp >30min
[2025-01-14 12:10] LABS: Bedside Glucose 254 mg/dL (74-106)
--- NOTE | 2025-01-14 12:22 | CASEMGMT ---
DONNIE MCKEON noted DC order. Notified by DONNIE MCKEON assisting appointment was made at for ST on 01/25/25 at 1430. This DONNIE MCKEON added to DC plan instructions, faxed order to and provided pt with a copy of script. No additional DC needs identified at this time.
== END 2025-01-14 12:53 | disposition home or self-care (01) | DRG 69 ==
LOC: ED 15:39 → PCU 17:39
PROVIDERS: Admitting Provider Family Medicine; Emergency Provider Emergency Medicine; PCP Internal Medicine; Visit Provider Student in an Organized Health Care Education/Training Program
DX: G45.9 Transient cerebral ischemic attack, unspecified (principal); I42.8 Other cardiomyopathies; N17.9 Acute kidney failure, unspecified; I67.1 Cerebral aneurysm, nonruptured; E11.22 Type 2 diabetes mellitus with diabetic chronic kidney disease; N18.30 Chronic kidney disease, stage 3 unspecified; I70.1 Atherosclerosis of renal artery; I12.9 Hypertensive chronic kidney disease with stage 1 through stage 4 chronic kidney disease, or unspecified chronic kidney disease; I25.10 Atherosclerotic heart disease of native coronary artery without angina pectoris; E78.00 Pure hypercholesterolemia, unspecified; Z79.4 Long term (current) use of insulin; I25.2 Old myocardial infarction; Z79.82 Long term (current) use of aspirin; Z87.891 Personal history of nicotine dependence; Z82.49 Family history of ischemic heart disease and other diseases of the circulatory system; Z83.3 Family history of diabetes mellitus; Z95.5 Presence of coronary angioplasty implant and graft; Z79.02 Long term (current) use of antithrombotics/antiplatelets; Z79.899 Other long term (current) drug therapy; Z79.84 Long term (current) use of oral hypoglycemic drugs; Z86.73 Personal history of transient ischemic attack (TIA), and cerebral infarction without residual deficits
CPT/HCPCS: 36415; 70450; 70496; 70498; 70551; 80048; 80061; 81001; 82962; 84484; 85025; 85610; 85730; 92507; 92523; 93005; 93306; 93880; 97162; 97166; 99285; Q9957; Q9967; A4216; C8929

== ENCOUNTER 2025-01-18 14:00 | Outpatient (RCR) | payer MEDICARE, OTHER, SELFPAY ==
--- NOTE | 2025-01-15 16:53 | HP.SP.EVAL ---
Visit History Visit Info Date of Eval: 01/15/25 Visit: 1 Community Administrator: JAMES History Attending Doctor: Referring Doctor: Reason for Referral: COGNITIVE SPEECH DEFICIT, APHASIA. RX TO BE FAXED Medical Diagnosis: Cognitive Communication Deficit R41.841; Aphasia R47.1 Date of Onset of Diagnosis: 01/12/25 Previous speech therapy: Yes Results: Patient received speech therapy following stroke in 2017. Other Relevant Medical History/Diagnoses/Surgery: Stroke in 2017 Smoking Status: Former smoker Diagnosis Diagnosis: Cognitive Communication Deficit; Aphasia Pain Is pain an issue with your current prescribed condition?: No Personal Preferred language: Greenlandic Patient Allergies Allergies Allergies: Allergies No Known Allergies Allergy (Verified 01/12/25 14:34) CLQT CLQT CLQT Administered: Yes CLQT: Cognitive Linguistic Quick Test (CLQT) is a criterion - referenced assessment designed for adults between the ages of 18 and 89 with known or suspected neurological dysfuntions. The CLQT is to assess strength and weaknesses in five cognitive domains. Severity ratings are within normal limits, mild, moderate, severe deficits. The subtests are as follows: Date: 01/15/25 Attention Attention: Severe Memory Memory: Moderate Executive Functions Executive Functions: Mild Language Language: Moderate Visuospatial Skills Visuospatial Skills: Mild Composite Severity Rating Composite Severity Rating: Moderate Clock Drawing Severity Rating Clock Drawing Severity Rating: Severe CLQT Comments -: -: Attention: 34 (Severe) Memory: 119 (Mild) Executive Functions: 12 (Moderate) Language: 26 (Mild) Visuospatial Skills: 27 (Moderate) Clock Drawin (Severe) Reference: Neuro-QoL instrument Radiation Oncology Patient Plan Plan Plan: At this time, skilled speech therapy interventions are recommended to target the areas of language, attention, memory, executive functions, and visuospatial skills. Recommendations Treatment Warranted: Yes Treatment Warranted: Receptive/ Expressive Language and Cognition Progress Prognosis: Excellent Frequency Frequency: 1x/Week Duration: Indefinite Patient/Family Goal Patient/Family Goal: Patient and stated that they would like for pt to improve with word finding skills. Goals that are Established Determination:: Goals will be added/modified as deemed necessary and appropriate. Therapy will be discontinued when results of re-evaluation indicate therapy is no longer needed or lack of progress has been documented. Goal #1-5 Goal #1: Bill will independently demonstrate use of word finding strategies to complete complex convergent and divergent naming tasks progressing to conversation with 80% accuracy. Goal #2: Brian will participate in auditory comprehension tasks independently following oral presentation with 80% accuracy. Goal #3: Bill will complete moderately complex sustained, alternating, divided attention tasks with 80% accuracy independently. Goal #4: Bill will complete basic to moderately complex immediate, short-term, and working memory tasks with 80% accuracy independently. Education Patient has Indicated that the Following Identified Educational Needs: None The Patient has indicated that they have no educational or learning abilities that may effect their care.: Yes Patient Instruction Patient Education: Diagnosis and Treatment Plan Person Taught: Patient and Significant Other Teaching Method: Discussion Response to teaching: Verbalize Understanding
--- NOTE | 2025-03-22 16:40 | HP.SP.DC_ITS ---
ST Discharge Summary Discharged: Discharge: Coleman Davies is being discharged from [facility] speech therapy services at this time. Patient attended initial evaluation on 01/15/25 as well as one appointment on 01/18/25. Patient cancelled visit on 01/29/25 and did not schedule any visits following that date. Thank you for allowing me to participate in the care of this patient.
--- NOTE | 2025-03-22 16:40 | HP.SP.DC_ITS ---
ST Discharge Summary Discharged: Discharge: Coleman Davies is being discharged from [facility] speech therapy services at this time. Patient attended initial evaluation on 01/15/25 as well as one appointment on 01/18/25. Patient cancelled visit on 01/29/25 and did not schedule any visits following that date. Thank you for allowing me to participate in the care of this patient.
== END 2025-01-18 19:00 | disposition home or self-care (01) ==
LOC: SP 14:00
PROVIDERS: PCP Internal Medicine; Referring Provider Student in an Organized Health Care Education/Training Program; Visit Provider Student in an Organized Health Care Education/Training Program
DX: R41.841 Cognitive communication deficit (principal); R47.1 Dysarthria and anarthria
CPT/HCPCS: 92507; 92523

== ENCOUNTER → 2025-01-25 | Outpatient (CLI) | payer MEDICARE, OTHER, SELFPAY ==
[2025-01-25 15:52] LABS: PSA,Total - Annual Screen 3.91 ng/mL (0.02-4.00)
== END | disposition home or self-care (01) ==
LOC: LAB 14:16
PROVIDERS: PCP Internal Medicine; Referring Provider Urology; Visit Provider Urology
DX: Z12.5 Encounter for screening for malignant neoplasm of prostate (principal)
CPT/HCPCS: 36415; 84153; G0103

== ENCOUNTER 2025-03-29 06:19 | Emergency (ER) | payer MEDICARE, OTHER, SELFPAY ==
[2025-03-29] VITALS (14 sets, daily range): BP systolic 130–156; BP diastolic 63–76; PULSE 70–90; RESP 7–15; TEMP 36.6–36.7; O2SAT 97–100; BMI 21.6
--- NOTE | 2025-03-29 06:20 | EKG12_ITS ---
Test Reason : CP Blood Pressure : */* mmHG Vent. Rate : 85 BPM Atrial Rate : 85 BPM P-R Int : 156 ms QRS Dur : 88 ms QT Int : 370 ms P-R-T Axes : 62 16 79 degrees QTcB Int : 440 ms Normal sinus rhythm Inferior infarct (cited on or before 24-Aug-2023) Abnormal ECG Confirmed by Cuate Garrison ([id number]), photo editor MARLON POE ([id number]) on 03/31/2025 11:15:30 AM Referred By: KIM Confirmed By: Cuate Garrison
[2025-03-29] MEDS: 0.9% Normal Saline (1000mL) 1,000 ML 999 ML IV (06:59)
--- NOTE | 2025-03-29 07:00 | EX.ED.DYSGE1 ---
HPI History of Present Illness Chief Complaint: Chest Pain Informant: patient and spouse/S.O. Narrative Narrative: Patient is a 74-year-old male with past medical history of hypertension as well as type 2 diabetes and coronary artery disease that required stent placement in 2000. He states that he was recently transitioned from Plavix to Brilinta. He states he began taking that on Saturday. He states shortly after he has had intermittent episodes of lightheadedness/dizziness. He states that on Saturday he had multiple bouts of loose stool/diarrhea as well but it resolved after taking [id number] Imodium. He states this morning around 4:00 he awoke and noticed vague chest discomfort. He states there was no associated nausea vomiting diaphoresis or shortness of breath. He does report there is mild radiation into his left arm. He states with his past history of CAD and stent placement he was concerned this could be secondary to his heart and therefore comes in for evaluation [facility] Medical History Diabetes Myocardial infarct Lower urinary tract symptoms (LUTS) Acute urinary retention Hypothyroidism Lumbar radiculopathy, acute Near syncope Chest pain Chest pain Wears glasses History of steroid therapy Insulin dependent diabetes mellitus High cholesterol Stroke/cerebrovascular accident Dietary restriction Heartburn Former smoker Cardiology follow-up encounter History of heart attack History of hemorrhagic cerebrovascular accident (CVA) without residual deficits Carotid artery disease Coronary artery disease Dyspnea on exertion Abnormal stress test History of recent pneumonia Hypertriglyceridemia Cardiomyopathy, ischemic History of left heart catheterization (LHC) BPH (benign prostatic hyperplasia) Multiple lacunar infarcts Hemorrhagic cerebrovascular accident (CVA) DDD (degenerative disc disease) Pure hypercholesterolemia CKD (chronic kidney disease) stage 3, GFR 30-59 ml/min Right carotid artery occlusion Bilateral carotid artery stenosis Essential hypertension Type 2 diabetes mellitus Presence of stent in coronary artery (~08/28/01) Atherosclerotic heart disease of [place] coronary artery without angina pectoris Home Medications ?Medication ?Instructions ?Recorded ?Last Taken ?Type ascorbic acid (vitamin C) 500 mg 500 mg PO DAILY SUPPLEMENT 07/05/21 01/11/25 History tablet aspirin 81 mg tablet,delayed 81 mg PO DAILY HEART HEALTH 07/05/21 01/11/25 History release (Adult Low Dose Aspirin) cyanocobalamin (vitamin B-12) 1,000 mcg PO DAILY SUPPLEMENT 07/05/21 01/12/25 History 5,000 mcg disintegrating tablet cholecalciferol (vitamin D3) 25 25 mcg PO BID SUPPLEMENT 07/20/21 01/12/25 History mcg (1,000 unit) tablet nitroglycerin 0.4 mg sublingual 0.4 mg sublingual Q5-15M PRN chest 03/16/24 Unknown Rx tablet pain #25 tabs lancets 33 gauge (OneTouch Delica #100 ea 05/04/24 Unknown Rx Plus Lancet) atorvastatin 80 mg tablet 80 mg PO QHS #90 TABLETS 08/10/24 01/11/25 Rx carvedilol 12.5 mg tablet 12.5 mg PO BID #180 tabs 08/10/24 01/12/25 Rx famotidine 20 mg tablet 20 mg PO DAILY #90 TABLETS 08/10/24 01/11/25 Rx isosorbide mononitrate 30 mg 30 mg PO DAILY HEART #90 tabs 08/10/24 01/11/25 Rx tablet,extended release 24 hr lisinopril 20 mg tablet 20 mg PO DAILY #90 TABLETS 08/10/24 01/12/25 Rx metformin 500 mg tablet 1,000 mg (2 x 500 mg) PO BID BLOOD 08/10/24 01/12/25 Rx SUGARS #360 tabs amlodipine 5 mg tablet 5 mg PO DAILY #90 TABLETS 08/18/24 01/11/25 Rx insulin glargine U-300 conc 300 36 unit (0.12 mL) subcut DAILY 08/18/24 01/12/25 07:00 Rx unit/mL (1.5 mL) subcutaneous pen BLOOD SUGARS #4.5 mL (Toujeo SoloStar U-300 Insulin) pen needle, diabetic 32 gauge x #100 ea 01/04/25 Unknown Rx 1/4 (Comfort EZ Pen [place]) finasteride 5 mg tablet 5 mg PO QDAY 01/27/25 Unknown History blood sugar diagnostic (OneTouch #100 ea 02/24/25 Unknown Rx Verio test strips) glimepiride 4 mg tablet 4 mg PO BID BLOOD SUGARS #90 tabs 02/25/25 Unknown Rx tamsulosin 0.4 mg capsule 0.4 mg PO QHS #90 caps 03/26/25 Unknown Rx ticagrelor 90 mg tablet 90 mg PO BID 03/29/25 Unknown History Allergy/AdvReac Type Severity Reaction Status Date / Time No Known Allergies Allergy Verified 02/11/25 13:30 Family History Mother CAD (coronary artery disease) Diabetes Myocardial infarction, Onset Age: 48 Father Diabetes Breast cancer Brother Diabetes Cancer Brother Cancer Prostate Surgical History History of coronary artery stent placement History of removal of skin mole Hx of LASIK Hx of colonoscopy History of left heart catheterization (LHC) (~06/01/22) History of arthroscopic surgery of shoulder History of laminectomy (~2007) Presence of coronary angioplasty implant and graft (~08/28/01) Social History household members: spouse housing: house Smoking Status: Former smoker alcohol intake: never details: occasional substance use type: does not use caffeine: Yes Type: tea Number of servings: 1 what type of physical activity do you participate in: none additional social history: Daily aspirin use. Does not use ibuprofen daily. ROS ROS ED Constitutional Constitutional ED: Denies chills or fever(s) Eyes Eyes: Denies change in vision ENT ENT ED: Denies sore throat Cardiovascular Cardiovascular: Reports chest pain; Denies palpitations or racing heartbeat Respiratory/Chest Respiratory/Chest: Denies cough or dyspnea Gastrointestinal Gastrointestinal: Reports diarrhea; Denies abdominal pain, nausea or vomiting Genitourinary Genitourinary ED: Denies dysuria Musculoskeletal Musculoskeletal: Denies myalgias Integumentary Denies rash Neurologic Neurologic: Reports other Details: Positive dizziness ; Denies headache(s) Hematologic/Lymphatic Hematologic/Lymphatic: Reports easy bleeding and easy bruising EXAM Physical Exam Const Vital Signs: 03/29/25 06:20 03/29/25 06:23 Temperature 98.0 F Temperature Source Oral Pulse Rate 90 Respiratory Rate 13 Respiratory Effort Normal Non-Labored Blood Pressure 155/74 H Blood Pressure Mean 101 Pulse Ox 99 Oxygen Delivery Method Room Air Positive well nourished and well developed General Appearance ED: well developed; Negative for pallor HEENT HEENT Narrative: Mucous membranes are slightly dry and tacky No tongue or lip swelling no oral lesions no airway edema or compromise No secondary findings in the posterior pharynx to suggest infection Eyes PERRL and EOMs intact bilaterally General Eye ED: Negative for pale conjunctiva or scleral icterus Neck supple and no JVD Neck Narrative: No nuchal rigidity or meningeal signs Chest Wall palpation of chest normal Chest Narrative: No bony deformity or subcutaneous emphysema noted Resp normal respiratory effort and clear to auscultation bilaterally Cardio regular rate and regular rhythm Rate: other Other Details: Heart is regular rate and rhythm Radial and carotid pulses are equal and symmetric GI non-distended and no masses GI Narrative: Abdomen is soft and nondistended with normal active bowel sounds. There is mild pain with palpation in the midepigastric region. No voluntary guarding or rigidity. No pulsatile mass or fluid wave Auscultation: normoactive bowel sounds Palpation: soft Extremity normal to inspection Extremity Narrative: No asymmetric edema no pitting edema negative Homans' sign bilaterally Neuro oriented x3, CN's II-XII intact bilaterally and no sensory deficits noted Neuro Narrative: GCS of 15 Cranial nerves II through XII are grossly intact without focal neurologic deficit No pronator drift no dysmetria no truncal ataxia No nystagmus noted NIH stroke scale score is 0 Sensorium / Orientation: alert Motor Exam: strength 5/5 throughout Psych mental status grossly normal Skin no rashes or lesions noted and No skin turgor normal Skin Narrative: Skin turgor is increased General Skin Exam: Negative for jaundice or pallor MDM MDM MDM Narrative Medical decision making narrative: Patient arrived to the ER slightly hypertensive but otherwise with stable vitals and he does have a past medical history of this. He reported intermittent dizziness for the last 2 days which she states could occur spontaneously. By exam he does not have truncal ataxia and his neurologic exam is normal going against a posterior circulation stroke or vertebrobasilar insufficiency and therefore I feel no need for a CTA. He will be given IV fluids as his physical exam does show mild dehydration. Chart review was performed and it does show that Brilinta can cause dizziness in approximately 4-1/2% of patients . Therefore this could be the cause of his new symptoms because it did start after he began using . However because of his report of chest discomfort and history of CAD a basic cardiac workup was obtained. As he did have pain in the midepigastric region he could have pancreatitis or atypical biliary colic so basic abdominal labs such as lipase and hepatic function panel were ordered as well. The patient's EKG did not any signs of acute STEMI/ischemia. At this time the patient's laboratory studies as well as the initial and delta troponins are still pending. Therefore he will be signed out to the physician Dr. Kapoor. At this time the patient's CAD has been stable since 2000 and his EKG does not show acute NM and therefore I feel if his overall workup is negative he should be safe for discharge with outpatient follow. History & Record Review Discussion w/independent historian: Patient and Significant other Lab Data Attestation: I reviewed the patient's lab results. Labs: Laboratory Results - last 24 hr 03/29/25 06:30 WBC 4.9 RBC 3.77 L Hgb 11.8 L Hct 34.3 L MCV 91.0 MCH 31.3 MCHC 34.4 RDW Std Deviation 42.4 RDW Coeff of Rich 13.0 Plt Count 238 MPV 9.9 Immature Gran % (Auto) 0.200 Neut % (Auto) 50.2 Lymph % (Auto) 31.8 [place] % (Auto) 10.5 H Eos % (Auto) 6.7 H Baso % (Auto) 0.6 Absolute Neuts (auto) 2.5 Absolute Lymphs (auto) 1.57 Radiography Diagnostic Testin view chest x-ray is interpreted by the emergency medicine physician reveals no acute infiltrate pneumothorax pleural effusion or widening of the mediastinum Discharge Plan Triage Chief Complaint: Chest Pain ED Provider: Ravinder Vance Dx/Rx/DC Orders Prescriptions: No Action cyanocobalamin (vitamin B-12) 5,000 mcg tablet,disintegrating 1,000 mcg PO DAILY ascorbic acid (vitamin C) 500 mg tablet 500 mg PO DAILY aspirin [Adult Low Dose Aspirin] 81 mg tablet,delayed release (DR/EC) 81 mg PO DAILY cholecalciferol (vitamin D3) 25 mcg (1,000 unit) tablet 25 mcg PO BID nitroglycerin 0.4 mg tablet, sublingual 0.4 mg sublingual Q5-15M PRN (Reason: chest pain) Qty: 25 3RF Rx Instructions: do not exceed 3 doses per episode finasteride 5 mg tablet 5 mg PO QDAY ticagrelor 90 mg tablet 90 mg PO BID (DME) lancets [OneTouch Delica Plus Lancet] 33 gauge misc See Rx Instructions .Route Qty: 100 0RF Rx Instructions: As directed Twice Daily to monitor blood glucose for DM II carvedilol 12.5 mg tablet 12.5 mg PO BID Qty: 180 3RF isosorbide mononitrate 30 mg tablet extended release 24 hr 30 mg PO DAILY Qty: 90 3RF atorvastatin 80 mg tablet 80 mg PO QHS Qty: 90 3RF famotidine 20 mg tablet 20 mg PO DAILY Qty: 90 3RF lisinopril 20 mg tablet 20 mg PO DAILY Qty: 90 3RF metformin 500 mg tablet 1,000 mg PO BID Qty: 360 3RF amlodipine 5 mg tablet 5 mg PO DAILY Qty: 90 3RF Patient Comments: PT TAKES AT BEDTIME insulin glargine U-300 conc [Toujeo SoloStar U-300 Insulin] 300 unit/mL (1.5 mL) insulin pen 36 unit subcut DAILY Qty: 4.5 5RF (DME) pen needle, diabetic [Comfort EZ Pen [place]] 32 gauge x 1/4 needle See Rx Instructions .Route Qty: 100 5RF Rx Instructions: once daily to administer insulin.. 6mm pen needle (DME) OneTouch Verio test strips Strip See Rx Instructions .ROUTE .MEDSUPPLY Qty: 100 11RF Rx Instructions: use as directed twice daily t monitor blood glucose for type 2 DM glimepiride 4 mg tablet 4 mg PO BID Qty: 90 3RF tamsulosin 0.4 mg capsule 0.4 mg PO QHS Qty: 90 3RF Primary Care Provider: Savanna Sinclair Referrals: Savanna Sinclair MD [Primary Care Provider] - Print Language: Swedish
[2025-03-29 07:05] LABS: Hematocrit 34.3 % (40-54); Hemoglobin 11.8 g/dL (13.0-16.5); Mean Corpuscular Volume 91.0 fL (80-94); Red Blood Count 3.77 M/mm3 (4.6-6.2); White Blood Count 4.9 K/mm3 (4.4-11.0)
[2025-03-29 07:06] LABS: Immature Granulocytes Count 0.010 X10^3/uL (0.0-0.0); Mean Corp Hgb Conc 34.4 g/dL (32-36); Mean Platelet Vol. 9.9 fl (6.2-12.0); Platelet Count 238 K/mm3 (150-450); RBC Distribution Width CV 13.0 % (11.6-14.6); RBC Distribution Width SD 42.4 fl (35.1-43.9)
--- NOTE | 2025-03-29 07:10 | RAD_ITS ---
PROCEDURE: CHEST PA AND LATERAL 03/29/2025 REASON FOR EXAM: CHEST PAIN TECHNIQUE: CHEST PA AND LATERAL COMPARISON: February 27, 2024 FINDINGS: Heart size and mediastinal configuration are within normal limits. There is no focal infiltrate or consolidation. There is no pneumothorax or effusion. Aortic calcifications are noted. There is no acute bony abnormality. RAD/Chest PA and Lateral IMPRESSION: No acute process is identified in the chest. Reading Location: [facility]
[2025-03-29 07:32] LABS: AST(SGOT) 17 U/L (<=37); Alanine Aminotransfer ALT/SGPT 24 U/L (<=46); Albumin, Serum 4.2 g/dL (3.4-4.8); Alkaline Phosphatase 75 U/L (40-129); Anion Gap 14 (5-15); BUN 34 mg/dL (4-19); BUN/Creat Ratio 21.1 RATIO (10-20); Bilirubin, Direct 0.20 mg/dL (0.00-0.30); Calcium,Total 10.1 mg/dL (7.6-11.0); Carbon Dioxide 22.2 mmol/L (21.0-32.0); Chloride 106 mmol/L (98-108); Estimated Creatinine Clearance 40.60 ml/min (50-250); Globulin 2.6 g/dL (2.2-4.2); Glucose 136 mg/dL (70-99); Lipase 32 U/L (13-75); Magnesium 1.1 mg/dL (1.5-2.2); Potassium 4.2 mmol/L (3.3-5.1)
[2025-03-29 07:47] LABS: Troponin T High Sensitivity 39 ng/L (<=22)
[2025-03-29 09:54] LABS: Troponin T High Sens 2 HR 35 ng/L (<=22)
== END 2025-03-29 10:17 | disposition home or self-care (01) ==
PROVIDERS: Emergency Provider Emergency Medicine; PCP Internal Medicine; Visit Provider Emergency Medicine
DX: R07.9 Chest pain, unspecified (principal); E11.22 Type 2 diabetes mellitus with diabetic chronic kidney disease; N18.30 Chronic kidney disease, stage 3 unspecified; E78.00 Pure hypercholesterolemia, unspecified; E86.0 Dehydration; I25.10 Atherosclerotic heart disease of native coronary artery without angina pectoris; Z87.891 Personal history of nicotine dependence; I12.9 Hypertensive chronic kidney disease with stage 1 through stage 4 chronic kidney disease, or unspecified chronic kidney disease; Z95.5 Presence of coronary angioplasty implant and graft; Z79.02 Long term (current) use of antithrombotics/antiplatelets
CPT/HCPCS: 71046; 80048; 80076; 83690; 83735; 84484; 85025; 93005; 96360; 99282; A4216

== ENCOUNTER → 2025-05-06 | Outpatient (CLI) | payer MEDICARE, OTHER, SELFPAY ==
[2025-05-10 18:08] LABS: Fats, Neutral Normal (.); Fats, Total Normal (.)
== END | disposition home or self-care (01) ==
LOC: LABSPEC 13:45
PROVIDERS: PCP Internal Medicine; Referring Provider Internal Medicine; Visit Provider Internal Medicine
DX: K58.9 Irritable bowel syndrome, unspecified (principal); I67.1 Cerebral aneurysm, nonruptured; R19.7 Diarrhea, unspecified
CPT/HCPCS: 82705; 83630

== ENCOUNTER 2025-06-05 04:16 | Inpatient (IN) | payer MEDICARE, OTHER, SELFPAY ==
[2025-06-05] VITALS (26 sets, daily range): BP systolic 130–173; BP diastolic 52–74; PULSE 81–95; RESP 10–22; TEMP 35.7–37.1; O2SAT 95–100; BMI 22.2; BMI 22.6
--- NOTE | 2025-06-05 04:33 | EKG12_ITS ---
Test Reason : N AND V Blood Pressure : */* mmHG Vent. Rate : 85 BPM Atrial Rate : 85 BPM P-R Int : 166 ms QRS Dur : 92 ms QT Int : 366 ms P-R-T Axes : 71 -28 82 degrees QTcB Int : 435 ms Normal sinus rhythm Inferior infarct (cited on or before 24-Aug-2023) Abnormal ECG Confirmed by YING LORENZO, EMIGDIO ([id number]), script editor MARLON POE ([id number]) on 06/07/2025 8:14:34 AM Referred By: BB Confirmed By: EMIGDIO HE MD
--- NOTE | 2025-06-05 04:34 | ED.VIS.GI ---
HPI HPI - GI History of Present Illness Chief Complaint: Nausea/Vomiting Informant: patient and spouse/S.O. Narrative Narrative: 74-year-old diabetic male went out the with his 2 nights ago, and about 3 hours later he did not feel well and vomited. No blood. No abdominal pain or diarrhea. The next morning, he vomited again, he ate very little throughout the day, and then all this past night he has been up vomiting recurrently. He states some of the vomit looked a little brown but nothing that looked bilious/green, or coffee-ground emesis, or bloody. No diarrhea, no abdominal pain, no chest pain, no dyspnea, cough, fevers or chills, or any other symptoms. No history of any abdominal surgeries in the past. ate at the same restaurant as he did but she did not have the same thing; he had shrimp. He has had no alcohol use. [facility] Medical History Cancer Alcohol use History of steroid therapy Back pain TIA (transient ischemic attack) Gastric reflux Shortness of breath on exertion Hypertension Leg cramps History of stress test History of echocardiogram History of Holter monitoring Diarrhea Lower urinary tract symptoms (LUTS) Acute urinary retention Hypothyroidism Lumbar radiculopathy, acute Near syncope Chest pain Wears glasses Insulin dependent diabetes mellitus High cholesterol Stroke/cerebrovascular accident Dietary restriction Former smoker Cardiology follow-up encounter History of heart attack History of hemorrhagic cerebrovascular accident (CVA) without residual deficits Carotid artery disease Coronary artery disease Dyspnea on exertion Abnormal stress test History of recent pneumonia Hypertriglyceridemia Cardiomyopathy, ischemic History of left heart catheterization (LHC) BPH (benign prostatic hyperplasia) Multiple lacunar infarcts Hemorrhagic cerebrovascular accident (CVA) DDD (degenerative disc disease) Pure hypercholesterolemia CKD (chronic kidney disease) stage 3, GFR 30-59 ml/min Right carotid artery occlusion Bilateral carotid artery stenosis Essential hypertension Type 2 diabetes mellitus Presence of stent in coronary artery (~08/28/01) Atherosclerotic heart disease of [place] coronary artery without angina pectoris Home Medications ?Medication ?Instructions ?Recorded ?Last Taken ?Type ascorbic acid (vitamin C) 500 mg 500 mg PO DAILY SUPPLEMENT 07/05/21 01/11/25 History tablet aspirin 81 mg tablet,delayed 81 mg PO DAILY HEART HEALTH 07/05/21 01/11/25 History release (Adult Low Dose Aspirin) cyanocobalamin (vitamin B-12) 1,000 mcg PO DAILY SUPPLEMENT 07/05/21 01/12/25 History 5,000 mcg disintegrating tablet cholecalciferol (vitamin D3) 25 25 mcg PO BID SUPPLEMENT 07/20/21 01/12/25 History mcg (1,000 unit) tablet lancets 33 gauge (OneTouch Delica #100 ea 05/04/24 Unknown Rx Plus Lancet) atorvastatin 80 mg tablet 80 mg PO QHS CHOLESTEROL #90 08/10/24 01/11/25 Rx TABLETS carvedilol 12.5 mg tablet 12.5 mg PO BID HEART #180 tabs 08/10/24 01/12/25 Rx lisinopril 20 mg tablet 20 mg PO DAILY BP #90 TABLETS 08/10/24 01/12/25 Rx metformin 500 mg tablet 1,000 mg (2 x 500 mg) PO BID BLOOD 08/10/24 01/12/25 Rx SUGARS #360 tabs pen needle, diabetic 32 gauge x #100 ea 01/04/25 Unknown Rx 1/ (Comfort EZ Pen [place]) finasteride 5 mg tablet 5 mg PO QHS PROSTATE 01/27/25 Unknown History blood sugar diagnostic (OneTouch #100 ea 02/24/25 Unknown Rx Verio test strips) glimepiride 4 mg tablet 4 mg PO BID BLOOD SUGARS #90 tabs 02/25/25 Unknown Rx tamsulosin 0.4 mg capsule 0.4 mg PO QHS PROSTATE #90 caps 04/09/25 Unknown Rx insulin glargine U-300 conc 300 36 unit (0.12 mL) subcut DAILY 04/19/25 Unknown Rx unit/mL (1.5 mL) subcutaneous pen BLOOD SUGARS #4.5 mL (Toujeo SoloStar U-300 Insulin) loratadine 10 mg tablet 10 mg PO QDAY ALLERGY 04/28/25 Unknown History magnesium glycinate 100 mg (as 400 mg PO QDAY 05/12/25 Unknown History glycinate) tablet prasugrel HCl 10 mg tablet 10 mg PO QDAY HEART #90 tabs 05/18/25 Unknown Rx (Effient) amlodipine 5 mg tablet 5 mg PO QHS BP 05/28/25 Unknown History famotidine 20 mg tablet 20 mg PO QHS GERD 05/28/25 Unknown History isosorbide mononitrate 30 mg 30 mg PO QHS HEART 05/28/25 Unknown History tablet,extended release 24 hr magnesium glycinate 100 mg (as 400 mg PO QHS SUPPLEMENT 05/28/25 Unknown History glycinate) tablet Allergy/AdvReac Type Severity Reaction Status Date / Time ticagrelor (From Brilinta) AdvReac Severe Other Verified 06/05/25 04:27 Family History Mother CAD (coronary artery disease) Diabetes Myocardial infarction, Onset Age: 48 Father Diabetes Breast cancer Brother Diabetes Cancer Brother Cancer Prostate Surgical History History of cardiac catheterization History of lumbar discectomy Hx of oral surgery History of coronary artery stent placement History of removal of skin mole Hx of LASIK Hx of colonoscopy History of left heart catheterization (LHC) (~06/01/22) History of arthroscopic surgery of shoulder History of laminectomy (~2007) Presence of coronary angioplasty implant and graft (~08/28/01) Social History household members: spouse housing: house Smoking Status: Former smoker alcohol intake: never details: occasional substance use type: does not use caffeine: Yes Type: tea Number of servings: 1 what type of physical activity do you participate in: none additional social history: Daily aspirin use. Does not use ibuprofen daily. ROS ROS ED Constitutional Constitutional ED: Denies chills or fever(s) Eyes Eyes: Denies change in vision or diplopia ENT ENT ED: Denies rhinorrhea or sore throat Cardiovascular Cardiovascular: Denies chest pain or palpitations Respiratory/Chest Respiratory/Chest: Denies cough or dyspnea Gastrointestinal Gastrointestinal: Reports nausea and vomiting; Denies abdominal pain, diarrhea, hematemesis or hematochezia Genitourinary Genitourinary ED: Denies dysuria or hematuria Musculoskeletal Musculoskeletal: Denies back pain or neck pain Integumentary Denies abscess or rash Neurologic Neurologic: Denies headache(s), paresthesias or weakness Psychiatric Psychiatric: Denies anxiety or suicidal thoughts EXAM Physical Exam Const Vital Signs: 06/05/25 04:17 06/05/25 05:29 Temperature 97.9 F 97.8 F Temperature Source Oral Pulse Rate 88 88 Respiratory Rate 16 15 Blood Pressure 173/67 H 162/74 H Blood Pressure Mean 102 103 Pulse Ox 100 100 Oxygen Delivery Method Room Air Positive well nourished and well developed General Appearance ED: well developed and NAD HEENT Reports moist mucous membranes normocephalic and atraumatic Eyes PERRL and EOMs intact bilaterally Neck full ROM and supple Resp normal respiratory effort and clear to auscultation bilaterally Cardio regular rate, regular rhythm and no murmurs GI non-tender and non-distended Auscultation: hypoactive bowel sounds Palpation: soft Back/Spine no CVA tenderness General Back: other FROM Extremity normal to inspection General Extremety ED: Negative for edema, pulses abnormal or tenderness General Extremity: Negative for edema or pulses abnormal Neuro oriented x3, CN's II-XII intact bilaterally and no sensory deficits noted Sensorium / Orientation: awake and alert Motor Exam: strength 5/5 throughout Psych mental status grossly normal and thought process normal Skin no rashes or lesions noted and no wounds MDM MDM MDM Narrative Medical decision making narrative: Differential for this gentleman presenting with nausea and vomiting without any other symptoms includes foodborne illness, in addition to atypical acute coronary syndrome, functional GI etiologies. Obtain labs and screening acute abdominal series, while treating with IV fluids and Zofran. He is EKG is normal reassuring. However, his chemistries are extremely concerning; his creatinine is newly significantly high at 8.74 along with his BUN at 92, which may be the cause of his vomiting, his troponin is 116 although this is nonspecific in context of this new renal failure and not having any symptoms of acute coronary syndrome right now, and his potassium is high 6.3. Looking back at his EKG, there may be very slight T wave peaking but no other changes of hyperkalemia. Therefore he does not need calcium and emergent lowering at this time, but I am giving him Kayexalate, assuming he can tolerate it after Zofran was given. I discussed with renal Dr. Browning, he is in agreement with this and requests a [id number] potassium level, and is agreeable to see the patient in consultation here in the hospital. Discussed with hospitalist for PCU admission. He is clinically and hemodynamically stable with blood pressure 162/74, he is not fluid overloaded, and he is relatively asymptomatic right now so I do not think he needs to be in the ICU. Lab Data Attestation: I reviewed the patient's lab results. Labs: Laboratory Results - last 24 hr 06/05/25 04:30 WBC 10.5 RBC 3.75 L Hgb 12.0 L Hct 35.4 L MCV 94.4 H MCH 32.0 MCHC 33.9 RDW Std Deviation 44.4 H RDW Coeff of Rich 12.9 Plt Count 285 MPV 9.9 Immature Gran % (Auto) 0.500 Neut % (Auto) 82.3 H Lymph % (Auto) 11.2 L [place] % (Auto) 5.6 Eos % (Auto) 0.2 Baso % (Auto) 0.2 Absolute Neuts (auto) 8.6 H Absolute Lymphs (auto) 1.17 Nucleated RBC % 0 Sodium 140 Potassium 6.3 H* Chloride 100 Carbon Dioxide 11.0 L Anion Gap 29 H BUN 92 H Creatinine 8.74 H* Estim Creat Clear Calc 7.80 L* Est GFR (MDRD) Non-Af 6 L BUN/Creatinine Ratio 10.5 Glucose 104 H Calcium 10.5 Total Bilirubin 0.29 AST 26 ALT 24 Alkaline Phosphatase 84 Troponin T High Sens 116 H* D Total Protein 6.8 Albumin 3.9 Globulin 2.9 Albumin/Globulin Ratio 1.3 Rhythm Strip Rhythm Strip: Sinus Rhythm Rate: 85 Ectopy: None EKG Initial EKG: Attestation: I personally reviewed and interpreted this EKG as follows: Interpretation: Sinus Rhythm and No Acute Injury Pattern Comments: Nml axis & intervals; nml EKG Prior EKG tracings: available for review Prior: Unchanged Management Discussion w/another healthcare provider: Hospitalist and Main[employer] Applications Developer (Nephrology) Discharge Plan Dx/Rx/DC Orders Clinical Impression: Acute uremia, Acute renal failure, Hyperkalemia, diminished renal excretion, Vomiting Disposition Disposition: [facility] Care [facility]
[2025-06-05] MEDS: 0.9% Normal Saline (1000mL) 1,000 ML 999 ML IV ×2 (04:36→07:47)
[2025-06-05 04:40] LABS: Hematocrit 35.4 % (40-54); Hemoglobin 12.0 g/dL (13.0-16.5); Immature Granulocytes Count 0.050 X10^3/uL (0.0-0.0); Mean Corp Hgb Conc 33.9 g/dL (32-36); Mean Corpuscular Volume 94.4 fL (80-94); Mean Platelet Vol. 9.9 fl (6.2-12.0); NRBC Flagged by Analyzer 0 % (0-5); Platelet Count 285 K/mm3 (150-450); RBC Distribution Width CV 12.9 % (11.6-14.6); RBC Distribution Width SD 44.4 fl (35.1-43.9); Red Blood Count 3.75 M/mm3 (4.6-6.2); White Blood Count 10.5 K/mm3 (4.4-11.0)
--- NOTE | 2025-06-05 05:00 | RAD_ITS ---
PROCEDURE: ACUTE ABDOMEN INC CHEST 06/05/2025 REASON FOR EXAM: N/V TECHNIQUE: Procedure Code: RADABDCA Modality: DX Procedure: ACUTE ABDOMEN INC CHEST COMPARISON: NONE. FINDINGS: There is an unremarkable bowel gas pattern. There is no demonstrated free abdominal air. Normal visualized liver. Normal visualized spleen. Normal visualized kidneys. The soft tissue structures of the pelvis are unremarkable. Normal visualized osseous structures. Mild bilateral basilar atelectatic pulmonary changes. There is no demonstrated pleural abnormality. Normal heart and pericardium. Normal mediastinum and yumiko. Normal visualized pulmonary arteries. Normal visualized aortic arch and descending thoracic aorta. Normal visualized thoracic spine. Normal visualized ribs, clavicles, and shoulders. There is no demonstrated abnormality of the visualized soft tissue structures of the upper abdomen. RAD/Acute Abdomen Inc Chest IMPRESSION: Unremarkable bowel gas pattern. Mild bilateral basilar atelectatic pulmonary changes. Reading [facility]
[2025-06-05 05:07] LABS: AST(SGOT) 26 U/L (<=37); Alanine Aminotransfer ALT/SGPT 24 U/L (<=46); Albumin, Serum 3.9 g/dL (3.4-4.8); Alkaline Phosphatase 84 U/L (40-129); Anion Gap 29 (5-15); BUN 92 mg/dL (4-19); BUN/Creat Ratio 10.5 RATIO (10-20); Calcium,Total 10.5 mg/dL (7.6-11.0); Carbon Dioxide 11.0 mmol/L (21.0-32.0); Chloride 100 mmol/L (98-108); Estimated Creatinine Clearance 7.80 ml/min (50-250); Globulin 2.9 g/dL (2.2-4.2); Glucose 104 mg/dL (70-99); Potassium 6.3 mmol/L (3.3-5.1); Troponin T High Sensitivity 116 ng/L (<=22)
--- OUTSIDE RECORDS SUMMARY | 2025-06-05 05:36 | XMS RPT_ITS | CCD ---
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 Briseyda Peña Primary Care Provider Dr. Briseyda Sinclair Attending Provider [phone] Dr. Briseyda Sinclair Referring Provider 1(330) Priyanka Haines Attending Provider Unavailable Dr. Tatiana Strauss Emergency Provider [phone] Renae Rubalcava Admit Provider Dr. Renae Rubalcava Attending Provider [phone] Renae Rubalcava Other Provider Dr. Briseyda Sinclair Primary Care Provider Dr. Briseyda Sinclair Attending Provider 1(330) Dr. Briseyda Sinclair Referring Provider 1(330) Dr. Manuel Gilman Attending Provider Dr. Briseyda Sinclair Primary Care Provider Dr. Briseyda Sinclair Attending Provider 1(330) Dr. Briseyda Sinclair Referring Provider 1(330) Eligio Martino Attending Provider Unavailable Dr. David Lui Attending Provider 1(330) Dr. David Lui Referring Provider 1(330) Dr. David Lui Other Provider [phone] Dr. Briseyda Sinclair Primary Care Provider Dr. Briseyda Sinclair Referring Provider [phone] Dr. Briseyda Sinclair Attending Provider [phone] Dr. David Lui Attending Provider Dr. Briseyda Sinclair Primary Care Provider Dr. Briseyda Sinclair Attending Provider [phone] Dr. Briseyda Sinclair Primary Care Provider Cepaul, Dr. Manuel Hall Attending Provider Mukul, Dr. Manuel Hall Referring Provider Dr. Briseyda Sinclair Referring Provider Dr. Briseyda Sinclair Attending Provider Dr. Mc Saleh Attending Provider Dr. Briseyda Sinclair Primary Care Provider Dr. Briseyda Sinclair Referring Provider Dr. Mc Saleh Attending Provider ARLEEN Gonsalez Attending Provider Dr. Briseyda Sinclair Primary Care Provider Dr. Briseyda Sinclair Referring Provider ARLEEN Chang Attending Provider Dr. Briseyda Sinclair Attending Provider Dr. Manuel Gilman Attending Provider Dr. Briseyda Sinclair Primary Care Provider Dr. Briseyda Sinclair Referring Provider ARLEEN Gonsalez Attending Provider ARLEEN Chang Attending Provider Dr. Briseyda Sinclair Attending Provider Mukul, Dr. Manuel Hall Attending Provider Mukul, Dr. Manuel Hall Other Provider Dottie LORENZO, Dr. Corrales Primary Care Provider Dottie LORENZO, Dr. Corrales Attending Provider Dottie LORENZO, Dr. Corrales Referring Provider Oleg LORENZO, Dr. Padron Attending Provider Pop LORENZO, Dr. Murphy Attending Provider Oleg LORENZO, Dr. Padron Referring Provider Bladimir LORENZO, Dr. Cuello Attending Provider Dottie LORENZO, Dr. Corrales Primary Care Provider Dottie LROENZO, Dr. Corrales Referring Provider Oleg LORENZO, Dr. Padron Attending Provider Dottie LORENZO, Dr. Corrales Attending Provider Irasema MEDRANO, Dr. Shetty Emergency Provider Pablito LORENZO, Dr. Bhupinder Hernandez Admit Provider Pablito LORENZO, Dr. Bhupinder Hernandez Attending Provider Pablito LORENZO, Dr. Bhupinder Hernandez Other Provider Pop LORENZO, Dr. Murphy Attending Provider Debbi LORENZO, Dr. Damico Attending Provider Gini LORENZO, Dr. Renae Mancuso Attending Provider Gini LORENZO, Dr. Renae Mancuso Other Provider Gini LORENZO, Dr. Renae Mancuso Referring Provider Killian LORENZO, Dr. Dony Cerna Attending Provider [phone] Killian LORENZO, Dr. Dony Cerna Referring Provider Dottie LORENZO, Dr. Corrales Primary Care Provider Oleg LORENZO, Dr. Padron Attending Provider Dottie LORENZO, Dr. Corrales Referring Provider Dottie LORENZO, Dr. Corrales Primary Care Provider La DE LA FUENTE-CBrenda Attending Provider Gonzalo DRILLER PORTABLE-C, Saira Attending Provider [phone] Briseyda Sinclair Primary Care Provider [phone] Dottie LORENZO, Dr. Corrales Primary Care Provider Dottie LORENZO, Dr. Corrales Attending Provider Dr. Briseyda Sinclair MD Referring Provider Gonzalo DRILLER PORTABLE-C, Saira Referring Provider Dr. Ravinder Vance DO Emergency Provider VENIZELOS, SIMBA Attending Unavailable DOTTIE, BRISEYDA Primary Care Unavailable VENIZELOS, SIMBA Attending Unavailable VENIZELOS, SIMBA Referring Unavailable DOTTIE, BRISEYDA Primary Care Unavailable VENIZELOS, SIMBA Attending Unavailable VENIZELOS, SIMBA Referring Unavailable DOTTIE, BRISEYDA Primary Care Unavailable Bladimir LORENZO, Dr. Cuello Attending Provider Dr. Ravinder Vance DO Attending Provider Dottie LORENZO, Dr. Corrales Primary Care Provider [phone] Dottie LORENZO, Dr. Corrales Referring Provider Dottie LORENZO, Dr. Corrales Attending Provider Briseyda Sinclair Attending Unavailable Dottie, Briseyda Primary Care Unavailable Dottie, Briseyda Referring Unavailable Dottie, Briseyda Primary Care Unavailable Dottie, Briseyda Attending Unavailable Debbi, Mookie Attending Unavailable Dottie, Briseyda Referring Unavailable Dottie, Briseyda Primary Care Unavailable Saira Sánchez Attending Unavailable Dottie, Briseyda Referring Unavailable Dottie, Briseyda Primary Care Unavailable Koram, Renae Jamee Attending Unavailable Koram, Renae Jamee Referring Unavailable Dottie, Briseyda Primary Care Unavailable Saira Sánchez Attending Unavailable Saira Sánchez Referring Unavailable Dottie, Briseyda Primary Care Unavailable Debbi, Mookie Attending Unavailable Debbi, Mookie Referring Unavailable Dottie, Briseyda Primary Care Unavailable Koram, Renae Jamee Attending Unavailable Dottie, Briseyda Primary Care Unavailable Bhupinder Kenney Admitting Unavailable Bhupinder Kenney Consulting Unavailable Saira Sánchez Referring Unavailable Cuate Garrison Attending Unavailable Dottie, Briseyda Primary Care Unavailable BordnerSaira Attending Unavailable Dottie, Briseyda Referring Unavailable Dottie, Briseyda Primary Care Unavailable Dottie, Briseyda Referring Unavailable Brenda Tovar Attending Unavailable Dottie, Briseyda Primary Care Unavailable Rosemount, Mookie Attending Unavailable Dottie, Briseyda Referring Unavailable Dottie, Briseyda Primary Care Unavailable Dottie, Briseyda Attending Unavailable Dottie, Briseyda Primary Care Unavailable Dottie, Briseyda Attending Unavailable Dottie, Briseyda Referring Unavailable Dottie, Briseyda Primary Care Unavailable Dottie, Briseyda Referring Unavailable Dottie, Briseyda Attending Unavailable Dottie, Briseyda Primary Care Unavailable KillianDony leal Attending Unavailable KillianDony Referring Unavailable Dottie, Briseyda Primary Care Unavailable Dottie, Briseyda Referring Unavailable DottieIsadoraen Attending Unavailable Dottie, Briseyda Primary Care Unavailable Dottie, Briseyda Primary Care Unavailable PopGera brodyril Attending Unavailable Debbi, Mookie Attending Unavailable Dottie, Briseyda Referring Unavailable Dottie, Briseyda Primary Care Unavailable Pop, [place] Attending Unavailable Dottie, Briseyda Primary Care Unavailable Vito Dejesus Attending Unavailable Dottie, Briseyda Referring Unavailable Dottie, Briseyda Primary Care Unavailable Vito Dejesus Attending Unavailable Vito Dejesus Referring Unavailable Dottie, Briseyda Primary Care Unavailable Debbi, Mookie Admitting Unavailable Debbi, Mookie Attending Unavailable Dottie, Briseyda Primary Care Unavailable Dottie, Briseyda Attending Unavailable Dottie, Briseyda Primary Care Unavailable Dottie, Briseyda Attending Unavailable Dottie, Briseyda Referring Unavailable Dottie, Briseyda Primary Care Unavailable Dottie, Briseyda Referring Unavailable Cuate Garrison Attending Unavailable Dottie, Briseyda Primary Care Unavailable Dottie, Briseyda Attending Unavailable Dottie, Briseyda Primary Care Unavailable Dottie, Briseyda Referring Unavailable Jamie Ramachandran NP Attending Unavailable Dottie, Briseyda Primary Care Unavailable Dottie, Briseyda Referring Unavailable Dottie, Briseyda Primary Care Unavailable Cuate Garrison Attending Unavailable Dottie, Briseyda Referring Unavailable Dottie, Briseyda Primary Care Unavailable Vito Dejesus Attending Unavailable Renae Rubalcava Attending Unavailable Bhupinder Kenney Consulting Unavailable Bhupinder Kenney Admitting Unavailable Briseyda Sinclair Primary Care Unavailable Renae Rubalcava Consulting Unavailable Briseyda Sinclair Primary Care Unavailable Bhupinder Kenney Admitting Unavailable Bhupinder Kenney Consulting Unavailable Bhupinder Kenney Attending Unavailable Ravinder Vance Attending Unavailable Briseyda Sinclair Primary Care Unavailable Briseyda Sinclair Referring Unavailable Briseyda Sinclair Primary Care Unavailable Briseyda Sincalir Attending Unavailable Allergies Allergy Classification Reported Allergen(s) Allergy Type Date of Onset Reaction(s) Facility (5 sources) Ticagrelor Drug Allergy 04-12-2025 Other [facility] (1 source) Ticagrelor Drug Allergy 05-28-2025 [facility] Repository Medications Current Medications Medication Drug Class(es) Dates Sig (Normalized) Sig (Original) amLODIPine 5 mg oral tablet (20 sources) Dihydropyridine Calcium Channel Evan Start: 02-18-2025 amLODIPine (Norvasc) 5 MG tablet 02/18/2025 Active Start: 07-05-2021 End: 08-18-2024 take 1 tablet by mouth once daily Amlodipine 5 mg tablet Discontinued 5 mg PO DAILY 90 3 May 28, 2024 7:55am August 18, 2024 3:02pm ascorbic acid 500 mg oral tablet (20 sources) Vitamin C Start: 07-05-2021 take 1 tablet by mouth once daily Ascorbic Acid (Vitamin C) 500 mg tablet Active 500 mg PO DAILY July 05, 2021 12:00am SUPPLEMENT aspirin 81 mg delayed release oral tablet (20 sources) Platelet Aggregation Inhibitor, Nonsteroidal Anti-inflammatory Drug Start: 07-05-2021 Aspirin (Adult Low Dose Aspirin) 81 mg tablet,delayed release (DR/EC) Active 81 mg PO DAILY July 05, 2021 12:00am [facility] atorvastatin 80 mg oral tablet (20 sources) HMG-CoA Reductase Inhibitor Start: 02-27-2025 atorvastatin (Lipitor) 80 MG tablet 02/27/2025 Active Start: 06-01-2022 End: 05-17-2023 Atorvastatin Discontinued 0 .ROUTE .COMPLEX 90 June 01, 2022 2:15pm May 17, 2023 4:31pm TAKE 1 TABLET AT BEDTIME Start: 07-05-2021 End: 08-10-2024 take 1 tablet by mouth at bedtime Atorvastatin 80 mg tablet Discontinued 80 mg PO AT BEDTIME 90 3 May 28, 2024 7:54am August 10, 2024 9:42am benzonatate 200 mg oral capsule (20 sources) Non-narcotic Antitussive Start: 08-13-2023 take 200 mg by mouth three times daily Benzonatate Active 200 MG PO THREE TIMES A DAY August 13, 2023 12:00am Start: 01-02-2022 End: 01-10-2022 take 1 capsule by mouth three times daily as needed for cough Benzonatate 100 mg Capsule Discontinued 100 mg PO THREE TIMES A DAY as needed for Cough January 02, 2022 12:00am January 10, 2022 11:24am carvedilol 12.5 mg oral tablet (20 sources) alpha-Adrenergic Evan, beta-Adrenergic Evan Start: 02-27-2025 carvedilol (Core g) 12.5 MG tablet 02/27/2025 Active Start: 02-28-2024 End: 08-10-2024 take 1 tablet by mouth twice daily Carvedilol 12.5 mg tablet Discontinued 12.5 mg PO TWICE A DAY 180 3 August 10, 2024 9:07am August 10, 2024 9:30am Start: 06-01-2022 End: 02-28-2024 take 1 tablet by mouth twice daily at mealtime Carvedilol 6.25 mg tablet Discontinued 6.25 mg PO TWICE A DAY 180 4 March 29, 2023 8:27am February 27, 2024 10:52am must administer with a meal/food Start: 08-02-2021 End: 06-01-2022 take 1 tablet by mouth twice daily at mealtime Carvedilol 3.125 mg tablet Discontinued 3.125 mg PO TWICE A DAY 180 4 March 12, 2022 2:57pm June 01, 2022 12:03pm must administer with a meal/food cholecalciferol 0.025 mg oral tablet (20 sources) Vitamin D Start: 07-20-2021 take 1 tablet by mouth twice daily Cholecalciferol (Vitamin D3) 25 mcg (1,000 unit) tablet Active 25 ug PO TWICE A DAY July 20, 2021 10:49am SUPPLEMENT Start: 07-05-2021 End: 07-20-2021 take 1 tablet by mouth once daily Cholecalciferol (Vitamin D3) 25 mcg (1,000 unit) tablet Discontinued 25 ug PO DAILY July 05, 2021 12:00am July 20, 2021 10:51am famotidine 20 mg oral tablet (20 sources) Histamine-2 Receptor Antagonist Start: 02-27-2025 famotidine (Pepcid) 20 MG tablet 02/27/2025 Active Start: 12-03-2023 End: 08-10-2024 take 1 tablet by mouth once daily Famotidine 20 mg tablet Discontinued 20 mg PO DAILY June 01, 2024 11:15am August 10, 2024 9:42am finasteride 5 mg oral tablet (12 sources) 5-alpha Reductase Inhibitor Start: 01-27-2025 take 1 tablet by mouth once daily Finasteride 5 mg tablet Active 5 mg PO daily January 27, 2025 12:00am glimepiride 4 mg oral tablet (20 sources) Sulfonylurea Start: 07-05-2021 End: 02-25-2025 glimepiride (Amaryl) 4 MG tablet 02/25/2025 Active 1.5 ml insulin glargine 300 unt/ml pen injector (20 sources) Insulin Analog Start: 11-29-2024 Toujeo SoloSta r 300 UNIT/ML injection 11/29/2024 Active Start: 09-25-2021 End: 12-10-2023 Insulin Glargine U-300 Conc (Toujeo Solostar U-300 Insulin) 300 unit/mL (1.5 mL) insulin pen Discontinued 36 U SC DAILY 4.5 5 October 28, 2023 2:03pm December 10, 2023 10:57am Start: 07-05-2021 End: 09-25-2021 Insulin Glargine U-300 Conc (Toujeo Max U-300 Solostar) 300 unit/mL (3 mL) insulin pen Discontinued 36 U SC DAILY 6 5 September 22, 2021 5:36pm September 25, 2021 11:23am Type 2 diabetes mellitus Type 2 diabetes mellitus without complications Insulin Glargine U-300 Conc (Toujeo Solostar U-300 Insulin) 300 unit/mL (1.5 mL) insulin pen (20 sources) Start: 04-19-2025 Insulin Glargi ne U-300 Conc (Toujeo Solostar U-300 Insulin) 300 unit/mL (1.5 mL) insulin pen Active 36 U SC DAILY 4.5 5 April 19, 2025 9:19am BLOOD SUGARS Start: 08-18-2024 End: 04-19-2025 Insulin Glargine U-300 Conc (Toujeo Solostar U-300 Insulin) 300 unit/mL (1.5 mL) insulin pen Discontinued 36 U SC DAILY 4.5 5 August 18, 2024 3:02pm April 19, 2025 9:19am BLOOD SUGARS Start: 08-18-2024 Insulin Glargi ne U-300 Conc (Toujeo Solostar U-300 Insulin) 300 unit/mL (1.5 mL) insulin pen Active 36 U SC DAILY 4.5 August 18, 2024 3:02pm BLOOD SUGARS Start: 08-18-2024 Insulin Glargi ne U-300 Conc (Toujeo Solostar U-300 Insulin) 300 unit/mL (1.5 mL) insulin pen Active 36 U SC DAILY 4.5 August 18, 2024 3:02pm Start: 12-10-2023 End: 08-18-2024 Insulin Glargine U-300 Conc (Toujeo Solostar U-300 Insulin) 300 unit/mL (1.5 mL) insulin pen Discontinued 36 U SC DAILY 4.5 5 December 10, 2023 10:57am August 18, 2024 3:02pm BLOOD SUGARS Start: 12-10-2023 End: 08-18-2024 Insulin Glargine U-300 Conc (Toujeo Solostar U-300 Insulin) 300 unit/mL (1.5 mL) insulin pen Discontinued 36 U SC DAILY 4.5 December 10, 2023 10:57am August 18, 2024 3:02pm 24 hr isosorbide mononitrate 30 mg extended release oral tablet (20 sources) Nitrate Vasodilator Start: 02-27-2025 isosorbide mononitrate ER (Imdur) 30 MG 24 hr tablet 02/27/2025 Active Start: 06-01-2022 End: 08-10-2024 take 1 tablet by mouth once daily, then take 1 tablet by mouth every twenty-four hours Isosorbide Mononitrate 30 mg tablet extended release 24 hr Discontinued 30 mg PO DAILY 90 3 August 10, 2024 9:07am August 10, 2024 9:30am HEART lisinopril 20 mg oral tablet (20 sources) Angiotensin Converting Enzyme Inhibitor Start: 02-27-2025 lisinopril 20 MG tablet 02/27/2025 Active Start: 07-05-2021 End: 08-10-2024 take 1 tablet by mouth once daily Lisinopril 20 mg tablet Discontinued 20 mg PO DAILY 90 3 May 28, 2024 7:54am August 10, 2024 9:42am loratadine 10 mg oral tablet (20 sources) Start: 04-28-2025 take 1 tablet by mouth once daily Loratadine 10 mg tablet Active 10 mg PO daily April 28, 2025 12:00am Start: 07-05-2021 End: 08-20-2023 take 1 tablet by mouth once daily Loratadine 10 mg tablet Discontinued 10 mg PO DAILY July 05, 2021 12:00am August 20, 2023 5:04am metFORMIN hydrochloride 500 mg oral tablet (20 sources) Biguanide Start: 02-27-2025 take 2 tablets by mouth twice daily metFORMIN (Glucophage) 500 MG tablet Take 1,000 mg by mouth 2 times daily. 02/27/2025 Active Start: 07-05-2021 End: 08-10-2024 take 2 tablets by mouth twice daily Metformin 500 mg tablet Discontinued 1000 mg PO TWICE A DAY 30 0 June 01, 2024 11:15am August 10, 2024 9:42am BLOOD SUGARS Start: 07-05-2021 End: 04-24-2023 take 1000 mg by mouth twice daily Metformin Discontinued 1000 MG PO TWICE A DAY 180 February 18, 2023 11:15am April 24, 2023 1:21pm nitroglycerin 0.4 mg sublingual tablet (20 sources) Nitrate Vasodilator Start: 03-16-2024 nitroglyce rin (Nitrostat) 0.[address] 1 TABLET UNDER TONGUE FOR CHEST PAIN. CALL 911 IF NO IMPROVEMENT AFTER 5 MIN. REPEAT DOSE TWICE IF NEEDED 03/16/2024 Active Start: 03-16-2024 End: 04-28-2025 Nitroglycerin 0.4 mg tablet, sublingual Discontinued 0.4 mg SL every 5 to 15 minutes as needed for chest pain 08 12March 16, 2024 12:00am April 28, 2025 2:30pm do not exceed 3 doses per episode prasugrel 10 mg oral tablet (4 sources) P2Y12 Platelet Inhibitor Start: 04-28-2025 take 1 tablet by mouth once daily Prasugrel Hcl (Effient) 10 mg tablet Active 10 mg PO daily 15 10April 28, 2025 12:00am tamsulosin hydrochloride 0.4 mg oral capsule (20 sources) alpha-Adrenergi c Evan Start: 12-31-2024 End: 04-09-2025 take 1 capsule by mouth once daily tamsulosin (Flomax) 0.4 MG 24 hr capsule Take 0.4 mg by mouth Nightly. 02/21/2025 Active ticagrelor 90 mg oral tablet (10 sources) Start: 03-24-2025 End: 03-25-2026 take 1 tablet by mouth twice daily ticagrelor (Brilinta) 90 MG tablet Indications: TIA (transient ischemic attack) , Cerebrovascular accident (CVA) due to stenosis of left carotid artery (HCC) Take 1 tablet (90 mg) by mouth 2 times daily. 90 tablet 2 03/25/2025 03/25/2026 Active vitamin b12 5 mg disintegrating oral tablet (20 sources) Vitamin B12 Start: 07-05-2021 take 5000 ug by mouth once daily Cyanocobalamin (Vitamin B-12) Active 5000 MCG PO DAILY July 05, 2021 10:39am Start: 07-05-2021 Cyanocobalamin (Vitamin B-12) 5,000 mcg tablet,disintegrating Active 1000 ug PO DAILY July 05, 2021 12:00am SUPPLEMENT Start: 07-05-2021 take 1000 ug by mout h once daily Cyanocobalamin (Vitamin B-12) Active 100 0 MCG PO DAILY July 05, 2021 12:00am Completed/Discontinued Medications Medication Drug Class(es) Dates Sig (Normalized) Sig (Original) Albuterol Sulfate (20 sources) beta2-Adrenergic Agonist Start: 01-02-2022 End: 01-10-2022 take 1 puff(s) by inhalation every six hours Albuterol Sulfate Discontinued 2 PUFF INHALATION EVERY 6 HOURS January 02, 2022 7:01am January 10, 2022 11:24am Start: 01-02-2022 take 1 puff(s) by in halation every six hours Albuterol Sulfate Active 2 PUFF INHALATION EVERY 6 HOURS January 02, 2022 7:01am Start: 01-02-2022 End: 01-10-2022 Albuterol Sulfate 90 mcg/act uation Hfa Aerosol Inhaler Discontinued 2 NMA INHALATION EVERY 6 HOURS as needed for Shortness Of Breath January 02, 2022 12:00am January 10, 2022 11:24am Start: 01-02-2022 End: 01-10-2022 take 1 puff(s) by inhalation every six hours Albuterol Sulfate Discontinued 2 PUFF INHALATION EVERY 6 HOURS January 02, 2022 12:00am January 10, 2022 11:24am amoxicillin 875 mg / clavulanate 125 mg oral tablet (16 sources) Penicillin-class Antibacterial Start: 08-29-2023 End: 09-08-2023 Amoxicillin-Pot Clavulanate 875-125 mg tablet Discontinued 1 {tbl} PO Q12H 20 10 0 August 29, 2023 1:00am September 07, 2023 1:00am September 08, 2023 1:04am Acute sinusitis, unspecified Start: 08-29-2023 End: 09-08-2023 take 1 tablet by mouth every twelve hours Amoxicillin-Pot Clavulanate Discontinued 1 TABLET PO Q12H 20 August 29, 2023 1:00am September 08, 2023 1:04am azithromycin 250 mg oral tablet (20 sources) Macrolide Antimicrobial Start: 07-19-2024 End: 08-10-2024 Azithromycin (Zithromax Z-Henrique) 250 mg tablet Discontinued 0 PO .COMPLEX 6 0 July 19, 2024 12:00am August 10, 2024 2:27pm For 250 mg dose pack: take 500 mg today (day 1), then 250 mg for 4 days (days 2-5) PO Start: 12-20-2022 End: 03-07-2023 Azithromycin (Zithromax) 250 mg tablet Discontinued 0 PO .COMPLEX 6 0 December 20, 2022 12:00am March 07, 2023 2:55pm For 250 mg dose pack: take 500 mg today (day 1), then 250 mg for 4 days (days 2-5) PO Start: 01-02-2022 End: 01-04-2022 take 1 capsule by mouth once daily Azithromycin 250 mg Capsule Discontinued 250 mg PO DAILY January 02, 2022 12:00am January 04, 2022 10:35am cefdinir 300 mg oral capsule (20 sources) Cephalosporin Antibacterial Start: 01-02-2022 End: 01-04-2022 take 1 capsule by mouth twice daily Cefdinir 300 mg Capsule Discontinued 300 mg PO TWICE A DAY January 02, 2022 12:00am January 04, 2022 10:35am x 10 days clopidogrel 75 mg oral tablet (20 sources) P2Y12 Platelet Inhibitor Start: 04-28-2025 End: 05-12-2025 take 1 mg by mouth once daily Clopidogrel 75 mg tablet Discontinued mg PO daily April 28, 2025 12:00am May 12, 2025 3:29pm On Hold: Order Changed Start: 07-05-2021 End: 03-29-2025 take 1 tablet by mouth once daily Clopidogrel (Plavix) 75 mg tablet Discontinued 75 mg PO DAILY 90 3 August 10, 2024 9:41am March 29, 2025 6:26am BLOOD THINNER dexamethasone 6 mg oral tablet (18 sources) Corticosteroid Start: 08-13-2023 End: 08-20-2023 take 1 tablet by mouth once daily Dexamethasone 6 mg tablet Discontinued 6 mg PO DAILY 5 0 August 13, 2023 1:00am August 20, 2023 5:03am magnesium glycinate 100 mg oral tablet (2 sources) Start: 05-12-2025 Magnesium Glyc inate 100 mg tablet Discontinued 400 mg PO daily May 12, 2025 12:00am magnesium oxide 250 mg oral tablet (20 sources) Start: 07-20-2021 End: 09-24-2022 take 1 tablet by mouth twice daily Magnesium Oxide 250 mg magnesium tablet Discontinued 250 mg PO TWICE A DAY July 20, 2021 12:00am September 24, 2022 2:27pm Start: 07-05-2021 End: 07-20-2021 take 1 tablet by mouth twice daily Magnesium Oxide 400 mg (241.3 mg magnesium) tablet Discontinued 400 mg PO TWICE A DAY July 05, 2021 12:00am July 20, 2021 10:50am predniSONE 20 mg oral tablet (20 sources) Start: 01-02-2022 End: 01-04-2022 take 2 tablets by mouth once daily Prednisone 20 mg Tablet Discontinued 40 mg PO DAILY January 02, 2022 12:00am January 04, 2022 10:36am x5 days Start: 01-02-2022 End: 01-04-2022 take 40 mg by mouth once daily Prednisone Discontinued 40 MG PO DAILY January 02, 2022 12:00am January 04, 2022 10:36am x5 days Problems Active Problems Problem Classification Problem Date Documented Da te Episodic/Chronic Acute cerebrovascular disease (20 sources) Multiple lacunar infarcts; Translations: [Other cerebral infarction due to occlusion or stenosis of small artery] Onset: 02-11-2025 Chronic Cardiac dysrhythmias (1 source) Palpitations; Translations: [Palpitations] Onset: 05-13-2025 Episodic Chronic kidney disease (20 sources) Chronic kidney disease stage 3; Translations: [Stage 3 chronic kidney disease] Chronic Comment on above: The patient recent b lood work October 2023 shows a creatinine clearance now improved to 67. 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 Deficiency and other anemia (16 sources) Anemia; Translations: [Anemia, unspecified] 11-22-2023 Episodic Deficiency and other anemia (16 sources) Hemoglobin low; Translations: [Anemia, unspecified] 11-06-2023 Episodic Deficiency and other anemia (2 sources) Anemia, unspecified; Translations: [Anemia, unspecified] 11-22-2023 Episodic Diabetes mellitus with complications (20 sources) Hyperglycemia due to type 2 diabetes mellitus; Translations: [Type 2 diabetes mellitus with hyperglycemia] 01-16-2022 Chronic Diabetes mellitus without complication (20 sources) Type 2 diabetes mellitus; Translations: [Type 2 diabetes mellitus without complications] Onset: 01-27-2025 Chronic Diabetes mellitus without complication (20 sources) Hyperglycemia; Translations: [Hyperglycemia, unspecified] Episodic Disorders of lipid metabolism (20 sources) Hypertriglyceridemia; Translations: [Pure hyperglyceridemia] Onset: 01-27-2025 Chronic Essential hypertension (20 sources) Essential hypertension; Translations: [Essential (primary) hypertension] Chronic Fluid and electrolyte disorders (20 sources) Lactic acidosis; Translations: [Acidosis] Episodic Malaise and fatigue (20 sources) Asthenia; Translations: [Weakness] Episodic Nonspecific chest pain (20 sources) Chest pain; Translations: [Chest pain, unspecified] Onset: 05-13-2025 03-07-2024 Episodic Nutritional deficiencies (1 source) Vitamin D deficiency, unspecified; Translations: [Vitamin D deficiency, unspecified] Onset: 01-27-2025 Chronic Occlusion or stenosis of precerebral arteries (20 sources) Right carotid artery occlusion; Translations: [Occlusion and stenosis of right carotid artery] Onset: 01-27-2025 Chronic Comment on above: CTA- images reviewed , right ICA occlusion, left ICA 41% stenosis Osteoarthritis (16 sources) Arthritis of shoulder region joint; Translations: [Primary osteoarthritis, right shoulder] 10-09-2023 Chronic Other and ill-defined cerebrovascular disease (9 sources) Aneurysm of anterior cerebral artery; Translations: [Cerebral aneurysm, nonruptured] 02-01-2025 Chronic Other and ill-defined cerebrovascular disease (1 source) Intracranial aneurysm; Translations: [Cerebral aneurysm, nonruptured] 03-04-2025 Chronic Other and ill-defined cerebrovascular disease (20 sources) Cerebral aneurysm, nonruptured; Translations: [Aneurysm of intracranial artery] Onset: 03-04-2025 02-12-2025 Chronic Comment on above: Right NARDA 4mm fusifo rm aneurysm at the A1/A2 junction Other and ill-defined cerebrovascular disease (19 sources) Cerebrovascular disease; Translations: [Cerebrovascular disease, unspecified] 02-11-2025 Chronic Other and unspecified benign neoplasm (16 sources) History of polyp of colon; Translations: [Personal history of colonic polyps] 11-20-2023 Episodic Other and unspecified benign neoplasm (2 sources) Personal history of colonic polyps; Translations: [Personal history of colonic polyps] 11-22-2023 Episodic Other circulatory disease (19 sources) Disorder of carotid artery; Translations: [Disorder of arteries and arterioles, unspecified] 05-22-2023 Chronic Other circulatory disease (5 sources) Disorder of arteries and arterioles, unspecified; Translations: [Unspecified disorders of arteries and arterioles] 05-22-2023 Chronic Other circulatory disease (19 sources) 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 This is followed by Dr. Gilman. We will assume surveillance of his carotids next year after Dr. Gilman retires. Other circulatory disease (5 sources) Personal history of transient ischemic attack (TIA), and cerebral infarction without residual deficits; Translations: [Personal history of transient ischemic attack (TIA), and cerebral infarction without residual deficits] 05-22-2023 Episodic Other circulatory disease (13 sources) Transient ischemia; Translations: [Other disorder of circulatory system] 02-11-2025 Episodic Other gastrointestinal disorders (1 source) Irritable bowel syndrome without diarrhea; Translations: [Irritable bowel syndrome, unspecified] Onset: 05-12-2025 Chronic Other gastrointestinal disorders (5 sources) Diarrhea; Translations: [Diarrhea, unspecified] 05-03-2025 Episodic Other gastrointestinal disorders (1 source) Diarrhea, unspecified; Translations: [Diarrhea, unspecified] Onset: 05-03-2025 Episodic Other infections; including parasitic (17 sources) Personal history of other infectious and parasitic diseases; Translations: [History of COVID-19] 08-24-2023 Episodic Other lower respiratory disease (20 sources) H/O: pneumonia; Translations: [Personal history of pneumonia (recurrent)] 01-10-2022 Episodic Other lower respiratory disease (5 sources) Personal history of pneumonia (recurrent); Translations: [Personal history of pneumonia (recurrent)] Episodic Other lower respiratory disease (2 sources) Shortness of breath; Translations: [Shortness of breath] Episodic Other lower respiratory disease (20 sources) Dyspnea on exertion; Translations: [Other forms of dyspnea] 05-22-2022 Episodic Other nutritional; endocrine; and metabolic disorders (17 sources) H/O: diabetes mellitus; Translations: [Personal history of other endocrine, nutritional and metabolic disease] 08-24-2023 Episodic Residual codes; unclassified (18 sources) Other specified postprocedural states; Translations: [History of laminectomy] 07-28-2024 Episodic Syncope (14 sources) Near syncope; Translations: [Syncope and collapse] 03-07-2024 Episodic Thyroid disorders (15 sources) Hypothyroidism; Translations: [Hypothyroidism, unspecified] Onset: 12-01-2024 08-11-2024 Chronic Transient cerebral ischemia (20 sources) Transient cerebral ischemia; Translations: [Transient cerebral ischemic attack, unspecified] Onset: 01-16-2025 01-22-2025 Chronic Transient cerebral ischemia (19 sources) Transient cerebral ischemia; Translations: [Hemorrhagic cerebrovascular accident (CVA)] Unclassified (1 source) M54.16 - Radiculopathy, lumbar region Unclassified (1 source) Z98.890 - Other specified postprocedural states,M53.3 - Sacrococcygeal disorders, not elsewhere classified,M51.369 - Other intervertebral disc degeneration, lumbar region without mention of lumbar back pain or lower extremity pain Unclassified (9 sources) I67.1 - Cerebral aneurysm, nonruptured Unclassified (1 source) Cough, unspecified; Translations: [Cough, unspecified] Onset: 02-06-2025 Unclassified (1 source) Low back pain, unspecified; Translations: [Low back pain, unspecified] Onset: 08-20-2024 Viral infection (20 sources) Disease caused by 2019-nCoV; Translations: [COVID-19] 08-20-2023 Episodic Past or Other Problems Problem Classification Problem Date Documented Da te Episodic/Chronic Coronary atherosclerosis and other heart disease (20 sources) Stented coronary artery; Translations: [Presence of coronary angioplasty implant and graft] Onset: 08-16-2001 Episodic Comment on above: PTCA/stent to prox L AD and PTCAof the 1st diagonal 08/28/2001 Genitourinary symptoms and ill-defined conditions (20 sources) Acute retention of urine ; Translations: [Other retention of urine] Onset: 01-06-2025 12-29-2024 Episodic Other aftercare (8 sources) Acute myocardial infarction; Translations: [Encounter for follow-up examination after completed treatment for conditions other than malignant neoplasm] Onset: 08-28-2001 03-04-2025 Episodic Other circulatory disease (1 source) Other disorder of circulatory system; Translations: [Other disorder of circulatory system] Onset: 02-11-2025 Episodic Other connective tissue disease (19 sources) Adhesive capsulitis of right shoulder; Translations: [Adhesive capsulitis of right shoulder] Onset: 12-27-2021 12-27-2021 Episodic Other screening for suspected conditions (not mental disorders or infectious disease) (20 sources) Cardiovascular stress test abnormal; Translations: [Abnormal result of other cardiovascular function study] Onset: 09-10-2024 05-22-2022 Episodic Comment on above: 2021 Other upper respiratory infections (20 sources) Acute sinusitis; Translations: [Acute sinusitis, unspecified] Onset: 07-19-2024 08-29-2023 Episodic Residual codes; unclassified (20 sources) History of cardiac catheterization; Translations: [Other specified postprocedural states] Onset: 05-17-2022 06-01-2022 Episodic Comment on above: LEFT MAIN: Mild calc ification, Mild luminal irregularities; LEFT ANTERIOR DESCENDING ARTERY: PROX LAD: Moderate calcification, Previously placed stent is patent withmild luminal irregularities and 25% instent restenosis, MID LAD: Moderate calcification, Mild luminal irregularities, DISTAL LAD: Mild luminal irregularities, DIAGONAL 1: Proximal - 50 % Stenosis; CIRCUMFLEX ARTERY:PROX CIRC: Moderate calcification, is occludedMID CIRC: to distal: filling late and partially from left to left and right, to left collateral flow; RIGHT CORONARY ARTERY: Mild luminal irregularities; per cardiac cath Dr. Lui 06/01/22 Residual codes; unclassified (1 source) Other general symptoms and signs; Translations: [Other general symptoms and signs] Onset: 02-06-2025 Episodic Residual codes; unclassified (1 source) Pain, unspecified; Translations: [Pain, unspecified] Onset: 07-19-2024 Episodic Spondylosis; intervertebral disc disorders; other back problems (20 sources) Lumbar radiculopathy; Translations: [Radiculopathy, lumbar region] Onset: 10-02-2024 Episodic Unclassified (1 source) Problem Results Test Name Value Interpretation Reference Range Facility MR/PATANAon 05-28-2025 MR/PAT.AMY Normal [facility] MR/BMSATIFSon 05-12-2025 MR/BMSHANS [facility] L3410.9992on 05-11-2025 [facility]. COMMENT Normal . [facility] Comment on above: Order Comment: [id number] 4STOOL CULTURE Result Comment: Test Ordered: [id number] Stool CultureSalmonella/Shigella Screen Note: CB Final report Reference Range: .Result 1 Comment CB Reference Range: .No Salmonella or Shigella recovered.Campylobacter Culture Note: CB Final report Reference Range: .Result 1 Comment CB Reference Range: .No Campylobacter species isolated.E coli Shiga Toxin EIA Negative CB Reference Range: NegativePerformed at: [address] [id number] Director: Ciaran Sethi PhD, Phone: [phone] Performed By: #### L 3410.9992, M100.0605, L7000.0300 ####[facility] [address] [place], [place], [id number] Fecal Fat, Qualitativeon FATS, NEUTRAL Normal Normal . [facility] Comment on above: Order Comment: Test( s) 293152-Utet, Neutral; 058241-Thkf, Totalwas developed and its performance characteristicsdetermined by [employer]. It has not been cleared or approvedby the Food and Drug Administration. Result Comment: Norm al (<60 Droplets/HPF) Performed By: #### L 3410.9992, M100.0605, L7000.0300 ####[facility] [address] [place], [place], [address] FATS, TOTAL Normal Normal . [facility] Comment on above: Order Comment: Test( s) 575866-Sqys, Neutral; 154678-Ikdo, Totalwas developed and its performance characteristicsdetermined by [facility]. It has not been cleared or approvedby the Food and Drug Administration. Result Comment: Norm al (<100 Droplets/HPF)Performed at: [address] [id number] Director: Ciaran Sethi PhD, Phone: [phone] Performed By: #### L 3410.9992, M100.0605, L7000.0300 ####[facility] [address] [place], [place], [address] Fecal fat detectionOrdered B y: Briseyda Sinclair on 05-06-2025 Fat Ql (Stl) Normal . [facility] Comment on above: Normal (<100 Droplet s/HPF)Performed at: - [facility] [id number] Director: Ciaran Sethi PhD, Phone: [phone] No Panel InformationOrdered By: Briseyda Sinclair on 05-06-2025 Stool Neutral Fats Normal . [facility] Comment on above: Normal (<60 Droplets /HPF) Stool Lactoferrin/WBCon 04-17 WBCST Normal Reference Ran ge = Negative Fecal WBC Lactoferrin Negative: No Fecal WBC Lactoferrin present Normal [facility] Comment on above: Performed By: #### L 3410.9992, M100.0605, L7000.0300 ####[facility] [address] [place], [place], [address] Stool lactoferrin detection by immunoassayOrdered By: Briseyda Sinclair on 05-06-2025 Lactoferrin IA Ql (Stl) [facility] MR/BMS.IMBon 05-03-2025 MR/BMS.IMB Normal [facility] Cardiology Visit Reporton Cardiology Visit Report Normal [facility] Neurology Visit Reporton Neurology Visit Report Normal [facility] 36on 04-01-2025 36 Pt's say pt daniel t to ED in [place] due to chest pressure, dizziness and arm numbness. 03/29/2025. ED and pt's nurse navigator says it was an adverse reaction to Brilinta. Cardiology d/c'd Brilinta and restarted pt on Plavix. Normal [facility] 12 Lead EKGon 03-29-2025 12 Lead EKG Normal [facility] Absolute lymphocyte countOrd ered By: Ravinder Vance on 03-29-2025 Lymphocytes Auto (Unsp spec) [#/Vol] 1.57 10*3/uL 0.83-4.51 [facility] Absolute neutrophil countOrd ered By: Ravinder Vance on 03-29-2025 Neutrophils (Bld) [#/Vol] 2.5 10*3/uL 2.0-7.7 [facility] Anion gap in Serum or Plasma Ordered By: Ravinder Vance on 03-29-2025 Anion gap [Moles/Vol] 14 mmol/L -15 [facility] BUN/creatinine ratioOrdered By: Ravinder Vance on 03-29-2025 Urea nitrogen/Creatinine [Mass ratio] 21.1 mg/mg High 10-20 [facility] Basic Metabolic Profile (BMP )on 03-29-2025 BUN/CRE 21.1 RATIO High - [facility] Comment on above: Performed By: #### L 500.2500, L100.0100, L501.2450, L500.3400, L501.5200 ####[facility] [address] [place], [address] Calcium [Mass/Vol] 10.1 mg/dL Normal 7.6-11.0 [facility] Comment on above: Performed By: #### L 500.2500, L100.0100, L501.2450, L500.3400, L501.5200 ####[facility] [address] [place], [address] Chloride [Moles/Vol] 106 mmol/L Normal 98-108 [facility] Comment on above: Performed By: #### L 500.2500, L100.0100, L501.2450, L500.3400, L501.5200 ####[facility] [address] [place], [address] CO2 [Moles/Vol] 22.2 mmol/L Normal 21.0-32.0 [facility] Comment on above: Performed By: #### L 500.2500, L100.0100, L501.2450, L500.3400, L501.5200 ####[facility] [address] [place], [address] Creatinine [Mass/Vol] 1.63 mg/dL High 0.70-1.20 [facility] Comment on above: Performed By: #### L 500.2500, L100.0100, L501.2450, L500.3400, L501.5200 ####[facility] [address] [place], [address] ECRCL 40.60 ml/min Low 50-250 [facility] Comment on above: Performed By: #### L 500.2500, L100.0100, L501.2450, L500.3400, L501.5200 ####[facility] [address] [place], [address] GAP 14 Normal 5-15 [facility] Comment on above: Performed By: #### L 500.2500, L100.0100, L501.2450, L500.3400, L501.5200 ####[facility] [address] [place], [address] GFR/1.73 sq M.predicted among non-blacks MDRD (S/P/Bld) [Vol rate/Area] 44 mL/min/{1.73_m2} Low >60 [facility] Comment on above: Result Comment: mL/m in/1.73m2 CKD-EPI Creatinine Equation (2020) Performed By: #### L 500.2500, L100.0100, L501.2450, L500.3400, L501.5200 ####[facility] [address] [place], [address] Glucose [Mass/Vol] 136 mg/dL High 70-99 [facility] Comment on above: Performed By: #### L 500.2500, L100.0100, L501.2450, L500.3400, L501.5200 ####[facility] [address] [place], [address] Potassium [Moles/Vol] 4.2 mmol/L Normal 3.3-5.1 [facility] Comment on above: Performed By: #### L 500.2500, L100.0100, L501.2450, L500.3400, L501.5200 ####[facility] [address] [place], [address] Sodium [Moles/Vol] 142 mmol/L Normal 133-145 [facility] Comment on above: Performed By: #### L 500.2500, L100.0100, L501.2450, L500.3400, L501.5200 ####[facility] [address] [place], [address] Urea nitrogen [Mass/Vol] 34 mg/dL High 4- [facility] Comment on above: Performed By: #### L 500.2500, L100.0100, L501.2450, L500.3400, L501.5200 ####[facility] [address] [place], [address] Basophil percentageOrdered B y: Ravinder Vance on 03-29-2025 Basophils/100 WBC (Bld) 0.6 % 0-1 [facility] Bilirubin directOrdered By: Ravinder Vance on 03-29-2025 Bilirubin.direct [Mass/Vol] 0.20 mg/dL 0.00-0.30 [facility] Bilirubin, totalOrdered By: Ravinder Vance on 03-29-2025 Bilirubin [Mass/Vol] 0.49 mg/dL 0.00-1.30 [facility] Blood platelets count (numbe r/volume)Ordered By: Ravinder Vance on 03-29-2025 Platelets (Bld) [#/Vol] 238 10*3/uL 150-450 [facility] CBC W/Diff, Automatedon 03-16 Absolute Lymph 1.57 X10 3/uL Normal 0.83-4.51 [facility] Comment on above: Performed By: #### L 500.2500, L100.0100, L501.2450, L500.3400, L501.5200 ####[facility] [address] [place], [address] Absolute Neut 2.5 X10 3/uL Normal 2.0-7.7 [facility] Comment on above: Performed By: #### L 500.2500, L100.0100, L501.2450, L500.3400, L501.5200 ####[facility] [address] [place], [address] Basophils/100 WBC (Bld) 0.6 % Normal 0-1 [facility] Comment on above: Performed By: #### L 500.2500, L100.0100, L501.2450, L500.3400, L501.5200 ####[facility] [address] [place], [address] Eosinophils/100 WBC (Bld) 6.7 % High 0-5 [facility] Comment on above: Performed By: #### L 500.2500, L100.0100, L501.2450, L500.3400, L501.5200 ####[facility] [address] [place], [address] Erythrocyte distribution width (RBC) [Ratio] 13.0 % Normal 11.6-14.6 [facility] Comment on above: Performed By: #### L 500.2500, L100.0100, L501.2450, L500.3400, L501.5200 ####[facility] [address] [place], [address] IG% 0.200 Normal 0.0-0.9 [facility] Comment on above: Result Comment: IG% - Immature Granulocytes (promyelocytes, myelocytes andmetamyelocytes) > 1% indicates that a LEFT SHIFT is Present. Performed By: #### L 500.2500, L100.0100, L501.2450, L500.3400, L501.5200 ####[facility] [facility] [address] [place], [address] Lymphocytes/100 WBC (Bld) 31.8 % Normal 19-41 [facility] Comment on above: Performed By: #### L 500.2500, L100.0100, L501.2450, L500.3400, L501.5200 ####[facility] [address] [place], [address] MCH (RBC) [Entitic mass] 31.3 pg Normal 27.0-32.0 [facility] Comment on above: Performed By: #### L 500.2500, L100.0100, L501.2450, L500.3400, L501.5200 ####[facility] [address] [place], [address] MCHC (RBC) [Mass/Vol] 34.4 g/dL Normal 32-36 [facility] Comment on above: Performed By: #### L 500.2500, L100.0100, L501.2450, L500.3400, L501.5200 ####[facility] [address] [place], [address] Monocytes/100 WBC (Bld) 10.5 % High 0-10 [facility] Comment on above: Performed By: #### L 500.2500, L100.0100, L501.2450, L500.3400, L501.5200 ####[facility] [address] [place], [address] Neutrophils/100 WBC (Bld) 50.2 % Normal 47-70 [facility] Comment on above: Performed By: #### L 500.2500, L100.0100, L501.2450, L500.3400, L501.5200 ####[facility] [address] [place], [address] Platelet mean volume (Bld) [Entitic vol] 9.9 fL Normal 6.2-12.0 [facility] Comment on above: Performed By: #### L 500.2500, L100.0100, L501.2450, L500.3400, L501.5200 ####[facility] [address] [place], [address] Platelets (Bld) [#/Vol] 238 10*3/uL Normal 150-450 [facility] Comment on above: Performed By: #### L 500.2500, L100.0100, L501.2450, L500.3400, L501.5200 ####[facility] [address] [place], [address] RDW SD 42.4 fl Normal 35.1-43.9 [facility] Comment on above: Performed By: #### L 500.2500, L100.0100, L501.2450, L500.3400, L501.5200 ####[facility] [address] [place], [address] Hematocrit (Bld) [Volume fraction] 34.3 % Low 40-54 [facility] Comment on above: Performed By: #### L 500.2500, L100.0100, L501.2450, L500.3400, L501.5200 ####[facility] [address] [place], [address] Hemoglobin (Bld) [Mass/Vol] 11.8 g/dL Low 13.0-16.5 [facility] Comment on above: Performed By: #### L 500.2500, L100.0100, L501.2450, L500.3400, L501.5200 ####[facility] [address] [place], [address] MCV (RBC) [Entitic vol] 91.0 fL Normal 80-94 [facility] Comment on above: Performed By: #### L 500.2500, L100.0100, L501.2450, L500.3400, L501.5200 ####[facility] [address] [place], [address] RBC (Bld) [#/Vol] 3.77 10*6/uL Low 4.6-6.2 [facility] Comment on above: Performed By: #### L 500.2500, L100.0100, L501.2450, L500.3400, L501.5200 ####[facility] [address] [place], [address] WBC (Bld) [#/Vol] 4.9 10*3/uL Normal 4.4-11.0 [facility] Comment on above: Performed By: #### L 500.2500, L100.0100, L501.2450, L500.3400, L501.5200 ####[facility] [address] [place], [address] Carbon dioxide, total [Moles /volume] in Central venous bloodOrdered By: Ravinder Vance on 03-29-2025 CO2 [Moles/Vol] 22.2 mmol/L 21.0-32.0 [facility] Chest PA and Lateralon 03-29 Chest PA and Lateral Normal [facility] Chloride assayOrdered By: Piper Vance on 03-29-2025 Chloride [Moles/Vol] 106 mmol/L 98-108 [facility] Emergency Department Summary on 03-29-2025 Emergency Department Summary Normal [facility] Eosinophil %Ordered By: Arron Vance on 03-29-2025 Eosinophils/100 WBC (Bld) 6.7 % High 0-5 [facility] Erythrocyte distribution wid th ratioOrdered By: Ravinder Vance on 03-29-2025 Erythrocyte distribution width (RBC) [Ratio] 13.0 % 11.6-14.6 [facility] Glomerular filtration rate ( GFR) estimation/1.73 sq m using serum, plasma, or whole bOrdered By: Ravinder Vance on 03-29-2025 GFR/1.73 sq M.predicted among non-blacks MDRD (S/P/Bld) [Vol rate/Area] 44 mL/min/{1.73_m2} Low >60 [facility] Comment on above: mL/min/1.73m2 CKD-EP I Creatinine Equation (2020) Hematocrit Auto (Bld) [Volum e fraction]Ordered By: Ravinder Vance on 03-29-2025 Hematocrit (Bld) [Volume fraction] 34.3 % Low 40-54 [facility] Hemoglobin measurementOrdere d By: Ravinder Vance on 03-29-2025 Hemoglobin (Bld) [Mass/Vol] 11.8 g/dL Low 13.0-16.5 [facility] Immature granulocyte percent ageOrdered By: Ravinder Vance on 03-29-2025 Immature granulocytes/100 WBC (Bld) 0.200 % 0.0-0.9 [facility] Comment on above: IG% - Immature Granu locytes (promyelocytes, myelocytes and metamyelocytes) > 1% indicates that a LEFT SHIFT is Present. L499.0042on 03-29-2025 Trop T High Sen 35 ng/L High <=22 [facility] Comment on above: Performed By: #### L 499.0042 ####[facility] [address] [place], [address] L499.0043on 03-29-2025 Trop T High Sen Normal <=22 [facility] Comment on above: Result Comment: Canc elled via OM: Order cancelled - Patient discharged Performed By: #### L 499.0043 ####[facility] [address] [place], [address] L501.4021on 03-29-2025 Trop T High Sen 39 ng/L High <=22 [facility] Comment on above: Performed By: #### L 501.4021 ####[facility] [address] [place], [address] Laboratory - Chemistry and C hemistry - challengeOrdered By: Ravinder Vance on 03-29-2025 AST [Catalytic activity/Vol] 17 U/L <38 [facility] Lipaseon 03-29-2025 Lipase [Catalytic activity/Vol] 32 U/L Normal 13-75 [facility] Comment on above: Result Comment: Lona carlton note:LIPASE revised reference range effective 22.New Lipase methodology. Expected to produce lower valuesthan the previous assay method.NEW Reference Range: 13 - 75 U/L Performed By: #### L 500.2500, L100.0100, L501.2450, L500.3400, L501.5200 ####[facility] [address] [place], [address] Lipase measurementOrdered By : Ravinder Vance on 03-29-2025 Lipase [Catalytic activity/Vol] 32 U/L 13-75 [facility] Comment on above: Please note:LIPASE r evised reference range effective 22. New Lipase methodology. Expected to produce lower values than the previous assay method. NEW Reference Range: 13 - 75 U/L Liver Profileon 03-29-2025 Albumin [Mass/Vol] 4.2 g/dL Normal 3.4-4.8 [facility] Comment on above: Performed By: #### L 500.2500, L100.0100, L501.2450, L500.3400, L501.5200 ####[facility] [address] [place], [place], [address] ALK PHOS 75 U/L Normal 40-129 [facility] Comment on above: Performed By: #### L 500.2500, L100.0100, L501.2450, L500.3400, L501.5200 ####[facility] [address] [place], [address] ALT [Catalytic activity/Vol] 24 U/L Normal <=46 [facility] Comment on above: Performed By: #### L 500.2500, L100.0100, L501.2450, L500.3400, L501.5200 ####[facility] [address] [place], [address] AST [Catalytic activity/Vol] 17 U/L Normal <=37 [facility] Comment on above: Performed By: #### L 500.2500, L100.0100, L501.2450, L500.3400, L501.5200 ####[facility] [address] [place], [address] Bilirubin [Mass/Vol] 0.49 mg/dL Normal 0.00-1.30 [facility] Comment on above: Performed By: #### L 500.2500, L100.0100, L501.2450, L500.3400, L501.5200 ####[facility] [address] [place], [address] Bilirubin.direct [Mass/Vol] 0.20 mg/dL Normal 0.00-0.30 [facility] Comment on above: Performed By: #### L 500.2500, L100.0100, L501.2450, L500.3400, L501.5200 ####[facility] [address] [place], [address] Globulin (S) [Mass/Vol] 2.6 g/dL Normal 2.2-4.2 [facility] Comment on above: Performed By: #### L 500.2500, L100.0100, L501.2450, L500.3400, L501.5200 ####[facility] [address] [place], [address] T PROT 6.8 g/dL Normal 5.9-8.4 [facility] Comment on above: Performed By: #### L 500.2500, L100.0100, L501.2450, L500.3400, L501.5200 ####[facility] [address] [place], [address] Lymphocyte %Ordered By: Arron in [place] on 03-29-2025 Lymphocytes/100 WBC (Bld) 31.8 % 19-41 [facility] MCV (mean corpuscular volume ) determinationOrdered By: Ravinder Vance on 03-29-2025 MCV (RBC) [Entitic vol] 91.0 fL 80-94 [facility] Magnesiumon 03-29-2025 Magnesium [Mass/Vol] 1.1 mg/dL Low 1.5-2.2 [facility] Comment on above: Performed By: #### L 500.2500, L100.0100, L501.2450, L500.3400, L501.5200 ####[facility] [address] [place], [place], [address] Magnesium measurement (mass/ volume)Ordered By: Ravinder Vance on 03-29-2025 Magnesium (Unsp spec) [Mass/Vol] 1.1 mg/dL Low 1.5-2.2 [facility] Mean corpuscular hemoglobin (MCH) determinationOrdered By: Ravinder Vance on 03-29-2025 MCH (RBC) [Entitic mass] 31.3 pg 27.0-32.0 [facility] Mean corpuscular hemoglobin concentration (MCHC) determinationOrdered By: Ravinder Vance on 03-29-2025 MCHC (RBC) [Mass/Vol] 34.4 g/dL 32-36 [facility] Mean platelet volume determi nationOrdered By: Ravinder Vance on 03-29-2025 Platelet mean volume (Bld) [Entitic vol] 9.9 fL 6.2-12.0 [facility] Monocyte percentageOrdered B y: Ravinder Vance on 03-29-2025 Monocytes/100 WBC (Bld) 10.5 % High 0-10 [facility] Neutrophil %Ordered By: Arron Vance on 03-29-2025 Neutrophils/100 WBC (Bld) 50.2 % 47-70 [facility] Potassium measurement (mass/ volume)Ordered By: Ravinder Vance on 03-29-2025 Potassium (Unsp spec) [Mass/Vol] 4.2 mmol/L 3.3-5.1 [facility] RBC Auto (Bld) [#/Vol]Ordere d By: Ravinder Vance on 03-29-2025 RBC (Bld) [#/Vol] 3.77 10*6/uL Low 4.6-6.2 [facility] RDWOrdered By: Ravinder Vance on 03-29-2025 RDW 42.4 fl 35.1-43.9 [facility] Serum creatinine measurement (mass/volume)Ordered By: Ravinder Vance on 03-29-2025 Creatinine [Mass/Vol] 1.63 mg/dL High 0.70-1.20 [facility] Serum globulin measurementOr dered By: Ravinder Vance on 03-29-2025 Globulin (S) [Mass/Vol] 2.6 g/dL 2.2-4.2 [facility] Serum glucose measurement (m ass/volume)Ordered By: Ravinder Vance on 03-29-2025 Glucose [Mass/Vol] 136 mg/dL High 70-99 [facility] Serum or plasma alanine denis otransferase (ALT) measurementOrdered By: Ravinder Vance on 03-29-2025 ALT [Catalytic activity/Vol] 24 U/L <47 [facility] Serum or plasma albumin makeda urement (mass/volume)Ordered By: Ravinder Vance on 03-29-2025 Albumin [Mass/Vol] 4.2 g/dL 3.4-4.8 [facility] Serum or plasma alkaline neisha sphatase measurementOrdered By: Ravinder Vance on 03-29-2025 ALP [Catalytic activity/Vol] 75 U/L 40-129 [facility] Serum or plasma calcium makeda urement (mass/volume)Ordered By: Ravinder Vance on 03-29-2025 Calcium [Mass/Vol] 10.1 mg/dL 7.6-11.0 [facility] Serum or plasma urea nitroge n measurement (mass/volume)Ordered By: Ravinder Vance on 03-29-2025 Urea nitrogen [Mass/Vol] 34 mg/dL High 4-19 [facility] Sodium levelOrdered By: Arron Vance on 03-29-2025 Sodium [Moles/Vol] 142 mmol/L 133-145 [facility] Total proteinOrdered By: Elmer Vance on 03-29-2025 Protein [Mass/Vol] 6.8 g/dL 5.9-8.4 [facility] Troponin T.cardiac [Mass/vol ume] in Serum or Plasma by High sensitivity methodOrdered By: Ravinder Vance on 03-29-2025 Troponin T.cardiac High sensitivity method [Mass/Vol] 35 ng/L High <22 [facility] Troponin T.cardiac High sensitivity method [Mass/Vol] 39 ng/L High <22 [facility] Comment on above: Delta: 42 on 5-1446 White blood cell (WBC) count Ordered By: Ravinder Vance on 03-29-2025 WBC (Bld) [#/Vol] 4.9 10*3/uL 4.4-11.0 [facility] 36on 03-26-2025 36 Called patient to eliza archibald he was able to tow picker his plavix as they had to find a pharmacy that could fill the generic form of Brilinta. I spoke with the patient's and she said they were able to pick it up yesterday and he started it this morning. She said the pharmacist told them to discontinue plavix and take one dose of Brilinta instead this morning. I asked the patient if she remembered me giving her instructions to take 2 tablets for the first dose as a loading dose along with Plavix. She said yes but she double checked with the pharmacist and they told her to do something different. Aide SAHU aware and Patient is ok to just discontinue Plavix and take Brilinta as prescribed. No further intervention at this time. Normal [facility] D/C Summary- SPon 03-22-2025 D/C Summary- SP Normal [facility] PRU TEST (P2Y12)on 5 PRU TEST (P2Y12) 191 Normal >=180 [facility] Comment on above: Result Comment: >180 - 376 PRU [P2Y12 Reaction Units] - No drug present 10-180 PRU [P2Y12 Reaction Units] - Decreased platelet reactivity to P2Y12 inhibitor. Performed By: #### L [id number] #### Treadle Cut Off Saw Operator: AURELIANO ARCHIBALD ([id number]) [facility] ([facility] [address] [place] [address] 36on 03-11-2025 36 I did. Normal [facility] 36on 03-05-2025 36 Name of caller: Kaelyn Contact phone number: [phone] Relationship to Patient: [facility] Outreach Lab Provider: Dr. Blackman Practice: Endovascular Chief Complaint/Reason for Call: Patient PRU lab was cancelled due to wrong color tube. If patient testing needs completed please reorder testing. Lab needs a christine tube, not a long top blue. Best time of day caller can be reached: any Patient advised that office/PCP has 24-48 business hours to return their call: Yes Normal [facility] Office Visiton 03-04-2025 Follow-up visit [id number] Titus Davies am 1950 M Date Provider Department Center 03/04/2025 [id number]-OPPRAYORPSIMBA BLACKMAN [facility] NRO None Family History Problem Relation Age of Onset Diabetes Mother Diabetes Father Esophageal cancer Brother Bone cancer Brother Prostate cancer Brother Diabetes Brother Family Status - Relation Status Age at Mother Father Brother Brother Brother Alive Level of Service:80045 [place] OFFICE/OUTPATIENT NEW MODERATE MDM 45 MINUTES Reason for Visit and Comments: New Patient [542] - aneurysm Normal [facility] Progress Noteon 03-04-2025 Progress Note History of Present Illness: 74 yo man presenting for incidental unruptured right NARDA aneurysm. He is a referral from Dr. Werner. Per him: - bilateral carotid disease; known right ICA occlusion and mid left ICA stenosis.... 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 Also right NARDA 4mm aneurysm, right posterior communicating artery stenosis, right VA stenosis, left cervical ICA 40% stenosis, left carotid siphon 25% stenosis, left vertebral artery 30% stenosis. The patient reports no personal or family h/o SAH he is a nonsmoker (quit after heart attack and stent). Past Medical History: Diagnosis Date Aneurysm (HCC) Diabetes (HCC) Heart attack (HCC) High blood cholesterol High cholesterol Hypertension Stroke (cerebrum) (HCC) Past Surgical History: Procedure Laterality Date BACK SURGERY CORONARY STENT PLACEMENT ROTATOR CUFF REPAIR Right Current Outpatient Medications: amLODIPine (Norvasc) 5 MG tablet, , Disp: , Rfl: atorvastatin (Lipitor) 80 MG tablet, , Disp: , Rfl: carvedilol (Coreg) 12.5 MG tablet, , Disp: , Rfl: clopidogrel (Plavix) 75 MG tablet, , Disp: , Rfl: Droplet Pen Orient 32G X 6 MM [facility], , Disp: , Rfl: famotidine (Pepcid) 20 MG tablet, , Disp: , Rfl: glimepiride (Amaryl) 4 MG tablet, , Disp: , Rfl: isosorbide mononitrate ER (Imdur) 30 MG 24 hr tablet, , Disp: , Rfl: Lancets (Natanael UlienTouch Delica Plus Izcnaw10I) [facility], USE TO TEST BLOOD SUGAR TWICE DAILY FOR DM II, Disp: , Rfl: lisinopril 20 MG tablet, , Disp: , Rfl: metFORMIN (Glucophage) 500 MG tablet, Take 1,000 mg by mouth 2 times daily., Disp: , Rfl: nitroglycerin (Nitrostat) 0.4 MG SL tablet, PLACE 1 TABLET UNDER TONGUE FOR CHEST PAIN. CALL 911 IF NO IMPROVEMENT AFTER 5 MIN. REPEAT DOSE TWICE IF NEEDED, Disp: , Rfl: Natanael UlienTouch Verio test strip, USE DIRECTED TO MONITOR BLOOD GLUCOSE TWICE DAILY, Disp: , Rfl: tamsulosin (Flomax) 0.4 MG 24 hr capsule, Take 0.4 mg by mouth Nightly., Disp: , Rfl: Toujeo SoloStar 300 UNIT/ML injection, , Disp: , Rfl: Social History Tobacco Use Smoking status: Former Current packs/day: 0.00 Types: Cigarettes Quit date: 2000 Years since quittin.4 Smokeless tobacco: Never Substance Use Topics Alcohol use: Not on file Family History Problem Relation Name Age of Onset Diabetes Mother Diabetes Father Esophageal cancer Brother Bone cancer Brother Prostate cancer Brother Diabetes Brother Review of Systems Constitutional: Negative. HENT: Negative. Eyes: Negative. Respiratory: Negative. Cardiovascular: Negative. Gastrointestinal: Negative. Endocrine: Negative. Genitourinary: Negative. Musculoskeletal: Negative. Skin: Negative. Allergic/Immunologic: Negative. Hematological: Negative. Psychiatric/Behavioral: Negative. All other systems reviewed and are negative. Examination: BP Readings from Last 3 Encounters: No data found for BP Wt Readings from Last 3 Encounters: No data found for Wt BP 121/69 Pulse 80 Temp 36.6 ?C (97.8 ?F) Wt 75.7 kg (166 lb 12.8 oz) Neurological Examination: Higher Functions: Mental Status Exam: Level of Alertness:Awake Orientation: person,place,time, Memory:normal Fund of Knowledge: normal Attention/Concentration: normal Language: mild transcortical expressive aphasia Dysarthria Not present Cranial Nerves: -II Visual acuity: normal -II Visual steve: normal -III Pupils (~ 3 mm OD, 3 mm OS) equal, round, reactive to light -III-IV- Extraocular Movements: intact -Nystagmus Not present -Saccades and pursuits normal -V Facial sensation: intact -VII Facial strength: intact -VIII Hearing: intact -X Palate: intact -XI Shoulder shrug: intact -XII Tongue movement: normal Funduscopic Exam: normal Motor Examination: Tone Normal -Bulk: normal -Muscle Stretch : Drift:absent normal -Reflexes ; normal -Plantar responce: Flexor bilaterally Sensory Intact to light touch, pain / temperature, proprioception, Coordination: Arms Normal finger to nose, Tremors not present, Gait Normal Imaging reviewed with patient: CTA Impression/Plan: 74 yo man here for incidental unruptured right NARDA 4mm aneurysm. - Found incidentally during evaluation for possible TIA - Known right ICA occlusion, left ICA 40% stenosis (follows with vascular surgery for carotid surveillance). - Possible TIA on dual antiplatelet - will obtain PRU test for platelet activity on plavix. Discussed aneurysm rupture risk, stroke risk factors, and warning signs. Discussed imaging and treatment options, benefits, risks, and alternatives. At this time he wishes to continue conservative medical management and observation of the aneurysm. Interim rupture risk was discussed and he is in understanding. Recommend continued BP control and also continued smoking cessation. MD Hiral I spent 40 minutes with the pat (more content not included)... [facility] 36on 02-17-2025 36 Name of caller: Avelinanydia morgan Contact phone number: [phone] Relationship to Patient: spouse/SO Provider: Dr. Blackman Practice: Endovascular Chief Complaint/Reason for Call: Basim called advising if patient's referral has been received and she would like to schedule an appointment soon. Please call patient if he referral has been received to setup appointment and advise. Best time of day caller can be reached: any Patient advised that office/PCP has 24-48 business hours to return their call: Yes Normal [facility] Neurology Visit Reporton Neurology Visit Report Normal [facility] Laboratory - Microbiology an d Antimicrobial susceptibilityOrdered By: Brenda Tovar on 02-06-2025 SARS-CoV-2 (COVID-19) RNA LIZ+probe Ql (Unsp spec) Not detected [facility] No Panel InformationOrdered By: Brenda Tovar on 02-06-2025 Influenza Types A,B Rapid (Clinic) Negative [facility] Urgent Care Visit Reporton 0 02-06-2025 Urgent Care Visit Report Normal [facility] MR/BMS.BVSon 02-01-2025 MR/BMS.BVS Normal [facility] MR/BMS.IMBon 01-27-2025 MR/BMS.IMB Normal [facility] PSA,Total - Annual Screenon 01-25-2025 PSA,TOT SCREEN 3.91 ng/mL Normal 0.02-4.00 [facility] Comment on above: Result Comment: This test was performed using the Shareight tPSAmethod. Measured values of a patient??sample can varydepending on the testing procedure used. PSA valuesdetermined on patient samples by different testingprocedures cannot be used interchangeably. If there is achange in PSA assays while monitoring therapy, sequentialtesting should be performed to confirm baseline values. Performed By: #### L 501.9910 ####[facility] [address] [place], [address] Basic Metabolic Profile (BMP )on 01-21-2025 BUN Normal 4- [facility] Comment on above: Result Comment: Canc elled via OM: Order cancelled - Patient discharged Performed By: #### L 500.2500, L100.0100 ####[facility] [address] [place], [address] BUN/CRE Normal 10-20 [facility] Comment on above: Result Comment: Canc elled via OM: Order cancelled - Patient discharged Performed By: #### L 500.2500, L100.0100 ####[facility] [address] [place], [address] Calcium Normal 7.6-11.0 [facility] Comment on above: Result Comment: Canc elled via OM: Order cancelled - Patient discharged Performed By: #### L 500.2500, L100.0100 ####[facility] [address] [place], [address] CL Normal 98-108 [facility] Comment on above: Result Comment: Canc elled via OM: Order cancelled - Patient discharged Performed By: #### L 500.2500, L100.0100 ####[facility] [address] [place], [address] CO2 Normal 21.0-32.0 [facility] Comment on above: Result Comment: Canc elled via OM: Order cancelled - Patient discharged Performed By: #### L 500.2500, L100.0100 ####[facility] [address] [place], [address] CREAT,SERUM Normal 0.70-1.20 [facility] Comment on above: Result Comment: Canc elled via OM: Order cancelled - Patient discharged Performed By: #### L 500.2500, L100.0100 ####[facility] [address] [place], [address] eGFR Normal >60 [facility] Comment on above: Result Comment: Canc elled via OM: Order cancelled - Patient discharged Performed By: #### L 500.2500, L100.0100 ####[facility] [address] [place], [address] GAP Normal 5-15 [facility] Comment on above: Result Comment: Canc elled via OM: Order cancelled - Patient discharged Performed By: #### L 500.2500, L100.0100 ####[facility] [address] [place], [address] GLU Normal 70-99 [facility] Comment on above: Result Comment: Canc elled via OM: Order cancelled - Patient discharged Performed By: #### L 500.2500, L100.0100 ####[facility] [address] [place], [address] Potassium Normal 3.3-5.1 [facility] Comment on above: Result Comment: Canc elled via OM: Order cancelled - Patient discharged Performed By: #### L 500.2500, L100.0100 ####[facility] [address] [place], [address] Basic Metabolic Profile (BMP) Normal 133-145 [facility] Comment on above: Result Comment: Canc elled via OM: Order cancelled - Patient discharged Performed By: #### L 500.2500, L100.0100 ####[facility] [address] [place], [address] CBC W/Diff, Automatedon 05-0 Absolute Neut Normal 2.0-7.7 [facility] Comment on above: Result Comment: Canc elled via OM: Order cancelled - Patient discharged Performed By: #### L 500.2500, L100.0100 ####[facility] [address] [place], [address] HCT Normal 40-54 [facility] Comment on above: Result Comment: Canc elled via OM: Order cancelled - Patient discharged Performed By: #### L 500.2500, L100.0100 ####[facility] [address] [place], [address] HGB Normal 13.0-16.5 [facility] Comment on above: Result Comment: Canc elled via OM: Order cancelled - Patient discharged Performed By: #### L 500.2500, L100.0100 ####[facility] [address] [place], [address] MCH Normal 27.0-32.0 [facility] Comment on above: Result Comment: Canc elled via OM: Order cancelled - Patient discharged Performed By: #### L 500.2500, L100.0100 ####[facility] [address] [place], [address] MCHC Normal 32-36 [facility] Comment on above: Result Comment: Canc elled via OM: Order cancelled - Patient discharged Performed By: #### L 500.2500, L100.0100 ####[facility] [address] [place], [address] MCV Normal 80-94 [facility] Comment on above: Result Comment: Canc elled via OM: Order cancelled - Patient discharged Performed By: #### L 500.2500, L100.0100 ####[facility] [address] [place], [address] NEUT% Normal 47-70 [facility] Comment on above: Result Comment: Canc elled via OM: Order cancelled - Patient discharged Performed By: #### L 500.2500, L100.0100 ####[facility] [address] [place], [address] PLT Normal 150-450 [facility] Comment on above: Result Comment: Canc elled via OM: Order cancelled - Patient discharged Performed By: #### L 500.2500, L100.0100 ####[facility] [address] [place], [address] RBC Normal 4.6-6.2 [facility] Comment on above: Result Comment: Canc elled via OM: Order cancelled - Patient discharged Performed By: #### L 500.2500, L100.0100 ####[facility] [address] [place], [address] RDW CV Normal 11.6-14.6 [facility] Comment on above: Result Comment: Canc elled via OM: Order cancelled - Patient discharged Performed By: #### L 500.2500, L100.0100 ####[facility] [address] [place], [address] RDW SD Normal 35.1-43.9 [facility] Comment on above: Result Comment: Canc elled via OM: Order cancelled - Patient discharged Performed By: #### L 500.2500, L100.0100 ####[facility] [address] [place], [address] WBC Normal 4.4-11.0 [facility] Comment on above: Result Comment: Canc elled via OM: Order cancelled - Patient discharged Performed By: #### L 500.2500, L100.0100 ####[facility] [address] [place], [address] Basic Metabolic Profile (BMP )on 01-20-2025 BUN Normal 4-19 [facility] Comment on above: Result Comment: Canc elled via OM: Order cancelled - Patient discharged Performed By: #### L 100.0100, L500.2500 ####[facility] [address] [place], [address] BUN/CRE Normal 10-20 [facility] Comment on above: Result Comment: Canc elled via OM: Order cancelled - Patient discharged Performed By: #### L 100.0100, L500.2500 ####[facility] [address] [place], [address] Calcium Normal 7.6-11.0 [facility] Comment on above: Result Comment: Canc elled via OM: Order cancelled - Patient discharged Performed By: #### L 100.0100, L500.2500 ####[facility] [address] [place], [address] CL Normal 98-108 [facility] Comment on above: Result Comment: Canc elled via OM: Order cancelled - Patient discharged Performed By: #### L 100.0100, L500.2500 ####[facility] [address] [place], [address] CO2 Normal 21.0-32.0 [facility] Comment on above: Result Comment: Canc elled via OM: Order cancelled - Patient discharged Performed By: #### L 100.0100, L500.2500 ####[facility] [address] [place], [address] CREAT,SERUM Normal 0.70-1.20 [facility] Comment on above: Result Comment: Canc elled via OM: Order cancelled - Patient discharged Performed By: #### L 100.0100, L500.2500 ####[facility] [address] [place], [address] eGFR Normal >60 [facility] Comment on above: Result Comment: Canc elled via OM: Order cancelled - Patient discharged Performed By: #### L 100.0100, L500.2500 ####[facility] [address] [place], [address] GAP Normal 5-15 [facility] Comment on above: Result Comment: Canc elled via OM: Order cancelled - Patient discharged Performed By: #### L 100.0100, L500.2500 ####[facility] [address] [place], [address] GLU Normal 70-99 [facility] Comment on above: Result Comment: Canc elled via OM: Order cancelled - Patient discharged Performed By: #### L 100.0100, L500.2500 ####[facility] [address] [place], [address] Potassium Normal 3.3-5.1 [facility] Comment on above: Result Comment: Canc elled via OM: Order cancelled - Patient discharged Performed By: #### L 100.0100, L500.2500 ####[facility] [address] [place], [address] Basic Metabolic Profile (BMP) Normal 133-145 [facility] Comment on above: Result Comment: Canc elled via OM: Order cancelled - Patient discharged Performed By: #### L 100.0100, L500.2500 ####[facility] [address] [place], [address] CBC W/Diff, Automatedon 05-0 7-2024 Absolute Neut Normal 2.0-7.7 [facility] Comment on above: Result Comment: Canc elled via OM: Order cancelled - Patient discharged Performed By: #### L 100.0100, L500.2500 ####[facility] [address] [place], [address] HCT Normal 40-54 [facility] Comment on above: Result Comment: Canc elled via OM: Order cancelled - Patient discharged Performed By: #### L 100.0100, L500.2500 ####[facility] [address] [place], [address] HGB Normal 13.0-16.5 [facility] Comment on above: Result Comment: Canc elled via OM: Order cancelled - Patient discharged Performed By: #### L 100.0100, L500.2500 ####[facility] [address] [place], [address] MCH Normal 27.0-32.0 [facility] Comment on above: Result Comment: Canc elled via OM: Order cancelled - Patient discharged Performed By: #### L 100.0100, L500.2500 ####[facility] [address] [place], [address] MCHC Normal 32-36 [facility] Comment on above: Result Comment: Canc elled via OM: Order cancelled - Patient discharged Performed By: #### L 100.0100, L500.2500 ####[facility] [address] [place], [address] MCV Normal 80-94 [facility] Comment on above: Result Comment: Canc elled via OM: Order cancelled - Patient discharged Performed By: #### L 100.0100, L500.2500 ####[facility] [address] [place], [address] NEUT% Normal 47-70 [facility] Comment on above: Result Comment: Canc elled via OM: Order cancelled - Patient discharged Performed By: #### L 100.0100, L500.2500 ####[facility] [address] [place], [address] PLT Normal 150-450 [facility] Comment on above: Result Comment: Canc elled via OM: Order cancelled - Patient discharged Performed By: #### L 100.0100, L500.2500 ####[facility] [address] [place], [address] RBC Normal 4.6-6.2 [facility] Comment on above: Result Comment: Canc elled via OM: Order cancelled - Patient discharged Performed By: #### L 100.0100, L500.2500 ####[facility] [address] [place], [address] RDW CV Normal 11.6-14.6 [facility] Comment on above: Result Comment: Canc elled via OM: Order cancelled - Patient discharged Performed By: #### L 100.0100, L500.2500 ####[facility] [address] [place], [address] RDW SD Normal 35.1-43.9 [facility] Comment on above: Result Comment: Canc elled via OM: Order cancelled - Patient discharged Performed By: #### L 100.0100, L500.2500 ####[facility] [address] [place], [address] WBC Normal 4.4-11.0 [facility] Comment on above: Result Comment: Canc elled via OM: Order cancelled - Patient discharged Performed By: #### L 100.0100, L500.2500 ####[facility] [address] [place], [address] Basic Metabolic Profile (BMP )on 01-19-2025 BUN Normal 4-19 [facility] Comment on above: Result Comment: Canc elled via OM: Order cancelled - Patient discharged Performed By: #### L 100.0100, L500.2500 ####[facility] [address] [place], [address] BUN/CRE Normal 10-20 [facility] Comment on above: Result Comment: Canc elled via OM: Order cancelled - Patient discharged Performed By: #### L 100.0100, L500.2500 ####[facility] [address] [place], [address] Calcium Normal 7.6-11.0 [facility] Comment on above: Result Comment: Canc elled via OM: Order cancelled - Patient discharged Performed By: #### L 100.0100, L500.2500 ####[facility] [address] [place], [address] CL Normal 98-108 [facility] Comment on above: Result Comment: Canc elled via OM: Order cancelled - Patient discharged Performed By: #### L 100.0100, L500.2500 ####[facility] [address] [place], [address] CO2 Normal 21.0-32.0 [facility] Comment on above: Result Comment: Canc elled via OM: Order cancelled - Patient discharged Performed By: #### L 100.0100, L500.2500 ####[facility] [address] [place], [address] CREAT,SERUM Normal 0.70-1.20 [facility] Comment on above: Result Comment: Canc elled via OM: Order cancelled - Patient discharged Performed By: #### L 100.0100, L500.2500 ####[facility] [address] [place], [address] eGFR Normal >60 [facility] Comment on above: Result Comment: Canc elled via OM: Order cancelled - Patient discharged Performed By: #### L 100.0100, L500.2500 ####[facility] [address] [place], [address] GAP Normal 5-15 [facility] Comment on above: Result Comment: Canc elled via OM: Order cancelled - Patient discharged Performed By: #### L 100.0100, L500.2500 ####[facility] [address] [place], [address] GLU Normal 70-99 [facility] Comment on above: Result Comment: Canc elled via OM: Order cancelled - Patient discharged Performed By: #### L 100.0100, L500.2500 ####[facility] [address] [place], [address] Potassium Normal 3.3-5.1 [facility] Comment on above: Result Comment: Canc elled via OM: Order cancelled - Patient discharged Performed By: #### L 100.0100, L500.2500 ####[facility] [address] [place], [address] Basic Metabolic Profile (BMP) Normal 133-145 [facility] Comment on above: Result Comment: Canc elled via OM: Order cancelled - Patient discharged Performed By: #### L 100.0100, L500.2500 ####[facility] [address] [place], [address] CBC W/Diff, Automatedon 05-0 -2024 Absolute Neut Normal 2.0-7.7 [facility] Comment on above: Result Comment: Canc elled via OM: Order cancelled - Patient discharged Performed By: #### L 100.0100, L500.2500 ####[facility] [address] [place], [address] HCT Normal 40-54 [facility] Comment on above: Result Comment: Canc elled via OM: Order cancelled - Patient discharged Performed By: #### L 100.0100, L500.2500 ####[facility] [address] [place], [address] HGB Normal 13.0-16.5 [facility] Comment on above: Result Comment: Canc elled via OM: Order cancelled - Patient discharged Performed By: #### L 100.0100, L500.2500 ####[facility] [address] [place], [address] MCH Normal 27.0-32.0 [facility] Comment on above: Result Comment: Canc elled via OM: Order cancelled - Patient discharged Performed By: #### L 100.0100, L500.2500 ####[facility] [address] [place], [address] MCHC Normal 32-36 [facility] Comment on above: Result Comment: Canc elled via OM: Order cancelled - Patient discharged Performed By: #### L 100.0100, L500.2500 ####[facility] [address] [place], [address] MCV Normal 80-94 [facility] Comment on above: Result Comment: Canc elled via OM: Order cancelled - Patient discharged Performed By: #### L 100.0100, L500.2500 ####[facility] [address] [place], [address] NEUT% Normal 47-70 [facility] Comment on above: Result Comment: Canc elled via OM: Order cancelled - Patient discharged Performed By: #### L 100.0100, L500.2500 ####[facility] [address] [place], [address] PLT Normal 150-450 [facility] Comment on above: Result Comment: Canc elled via OM: Order cancelled - Patient discharged Performed By: #### L 100.0100, L500.2500 ####[facility] [address] [place], [address] RBC Normal 4.6-6.2 [facility] Comment on above: Result Comment: Canc elled via OM: Order cancelled - Patient discharged Performed By: #### L 100.0100, L500.2500 ####[facility] [address] [place], [address] RDW CV Normal 11.6-14.6 [facility] Comment on above: Result Comment: Canc elled via OM: Order cancelled - Patient discharged Performed By: #### L 100.0100, L500.2500 ####[facility] [address] [place], [address] RDW SD Normal 35.1-43.9 [facility] Comment on above: Result Comment: Canc elled via OM: Order cancelled - Patient discharged Performed By: #### L 100.0100, L500.2500 ####[facility] [address] [place], [address] WBC Normal 4.4-11.0 [facility] Comment on above: Result Comment: Canc elled via OM: Order cancelled - Patient discharged Performed By: #### L 100.0100, L500.2500 ####[facility] [address] [place], [address] Basic Metabolic Profile (BMP )on 01-18-2025 BUN Normal 4-19 [facility] Comment on above: Result Comment: Canc elled via OM: Order cancelled - Patient discharged Performed By: #### L 100.0100, L500.2500 ####[facility] [address] [place], [address] BUN/CRE Normal 10-20 [facility] Comment on above: Result Comment: Canc elled via OM: Order cancelled - Patient discharged Performed By: #### L 100.0100, L500.2500 ####[facility] [address] [place], [address] Calcium Normal 7.6-11.0 [facility] Comment on above: Result Comment: Canc elled via OM: Order cancelled - Patient discharged Performed By: #### L 100.0100, L500.2500 ####[facility] [address] [place], [address] CL Normal 98-108 [facility] Comment on above: Result Comment: Canc elled via OM: Order cancelled - Patient discharged Performed By: #### L 100.0100, L500.2500 ####[facility] [address] [place], [address] CO2 Normal 21.0-32.0 [facility] Comment on above: Result Comment: Canc elled via OM: Order cancelled - Patient discharged Performed By: #### L 100.0100, L500.2500 ####[facility] [address] [place], [address] CREAT,SERUM Normal 0.70-1.20 [facility] Comment on above: Result Comment: Canc elled via OM: Order cancelled - Patient discharged Performed By: #### L 100.0100, L500.2500 ####[facility] [address] [place], [address] eGFR Normal >60 [facility] Comment on above: Result Comment: Canc elled via OM: Order cancelled - Patient discharged Performed By: #### L 100.0100, L500.2500 ####[facility] [address] [place], [address] GAP Normal 5-15 [facility] Comment on above: Result Comment: Canc elled via OM: Order cancelled - Patient discharged Performed By: #### L 100.0100, L500.2500 ####[facility] [address] [place], [address] GLU Normal 70-99 [facility] Comment on above: Result Comment: Canc elled via OM: Order cancelled - Patient discharged Performed By: #### L 100.0100, L500.2500 ####[facility] [address] [place], [address] Potassium Normal 3.3-5.1 [facility] Comment on above: Result Comment: Canc elled via OM: Order cancelled - Patient discharged Performed By: #### L 100.0100, L500.2500 ####[facility] [address] [place], [address] Basic Metabolic Profile (BMP) Normal 133-145 [facility] Comment on above: Result Comment: Canc elled via OM: Order cancelled - Patient discharged Performed By: #### L 100.0100, L500.2500 ####[facility] [address] [place], [address] CBC W/Diff, Automatedon 05-0 5-2024 Absolute Neut Normal 2.0-7.7 [facility] Comment on above: Result Comment: Canc elled via OM: Order cancelled - Patient discharged Performed By: #### L 100.0100, L500.2500 ####[facility] [address] [place], [address] HCT Normal 40-54 [facility] Comment on above: Result Comment: Canc elled via OM: Order cancelled - Patient discharged Performed By: #### L 100.0100, L500.2500 ####[facility] [address] [place], [address] HGB Normal 13.0-16.5 [facility] Comment on above: Result Comment: Canc elled via OM: Order cancelled - Patient discharged Performed By: #### L 100.0100, L500.2500 ####[facility] [address] [place], [address] MCH Normal 27.0-32.0 [facility] Comment on above: Result Comment: Canc elled via OM: Order cancelled - Patient discharged Performed By: #### L 100.0100, L500.2500 ####[facility] [address] [place], [address] MCHC Normal 32-36 [facility] Comment on above: Result Comment: Canc elled via OM: Order cancelled - Patient discharged Performed By: #### L 100.0100, L500.2500 ####[facility] [address] [place], [address] MCV Normal 80-94 [facility] Comment on above: Result Comment: Canc elled via OM: Order cancelled - Patient discharged Performed By: #### L 100.0100, L500.2500 ####[facility] [address] [place], [address] NEUT% Normal 47-70 [facility] Comment on above: Result Comment: Canc elled via OM: Order cancelled - Patient discharged Performed By: #### L 100.0100, L500.2500 ####[facility] [address] [place], [address] PLT Normal 150-450 [facility] Comment on above: Result Comment: Canc elled via OM: Order cancelled - Patient discharged Performed By: #### L 100.0100, L500.2500 ####[facility] [address] [place], [address] RBC Normal 4.6-6.2 [facility] Comment on above: Result Comment: Canc elled via OM: Order cancelled - Patient discharged Performed By: #### L 100.0100, L500.2500 ####[facility] [address] [place], [address] RDW CV Normal 11.6-14.6 [facility] Comment on above: Result Comment: Canc elled via OM: Order cancelled - Patient discharged Performed By: #### L 100.0100, L500.2500 ####[facility] [address] [place], [address] RDW SD Normal 35.1-43.9 [facility] Comment on above: Result Comment: Canc elled via OM: Order cancelled - Patient discharged Performed By: #### L 100.0100, L500.2500 ####[facility] [address] [place], [address] WBC Normal 4.4-11.0 [facility] Comment on above: Result Comment: Canc elled via OM: Order cancelled - Patient discharged Performed By: #### L 100.0100, L500.2500 ####[facility] [address] [place], [address] Basic Metabolic Profile (BMP )on 01-17-2025 BUN Normal -19 [facility] Comment on above: Result Comment: Canc elled via OM: Order cancelled - Patient discharged Performed By: #### L 100.0100, L500.2500 ####[facility] [address] [place], [address] BUN/CRE Normal 10-20 [facility] Comment on above: Result Comment: Canc elled via OM: Order cancelled - Patient discharged Performed By: #### L 100.0100, L500.2500 ####[facility] [address] [place], [address] Calcium Normal 7.6-11.0 [facility] Comment on above: Result Comment: Canc elled via OM: Order cancelled - Patient discharged Performed By: #### L 100.0100, L500.2500 ####[facility] [address] [place], [address] CL Normal 98-108 [facility] Comment on above: Result Comment: Canc elled via OM: Order cancelled - Patient discharged Performed By: #### L 100.0100, L500.2500 ####[facility] [address] [place], [address] CO2 Normal 21.0-32.0 [facility] Comment on above: Result Comment: Canc elled via OM: Order cancelled - Patient discharged Performed By: #### L 100.0100, L500.2500 ####[facility] [address] [place], [address] CREAT,SERUM Normal 0.70-1.20 [facility] Comment on above: Result Comment: Canc elled via OM: Order cancelled - Patient discharged Performed By: #### L 100.0100, L500.2500 ####[facility] [address] [place], [address] eGFR Normal >60 [facility] Comment on above: Result Comment: Canc elled via OM: Order cancelled - Patient discharged Performed By: #### L 100.0100, L500.2500 ####[facility] [address] [place], [address] GAP Normal 5-15 [facility] Comment on above: Result Comment: Canc elled via OM: Order cancelled - Patient discharged Performed By: #### L 100.0100, L500.2500 ####[facility] [address] [place], [address] GLU Normal 70-99 [facility] Comment on above: Result Comment: Canc elled via OM: Order cancelled - Patient discharged Performed By: #### L 100.0100, L500.2500 ####[facility] [address] [place], [address] Potassium Normal 3.3-5.1 [facility] Comment on above: Result Comment: Canc elled via OM: Order cancelled - Patient discharged Performed By: #### L 100.0100, L500.2500 ####[facility] [address] [place], [address] Basic Metabolic Profile (BMP) Normal 133-145 [facility] Comment on above: Result Comment: Canc elled via OM: Order cancelled - Patient discharged Performed By: #### L 100.0100, L500.2500 ####[facility] [address] [place], [address] CBC W/Diff, Automatedon 05-0 -2024 Absolute Neut Normal 2.0-7.7 [facility] Comment on above: Result Comment: Canc elled via OM: Order cancelled - Patient discharged Performed By: #### L 100.0100, L500.2500 ####[facility] [address] [place], [address] HCT Normal 40-54 [facility] Comment on above: Result Comment: Canc elled via OM: Order cancelled - Patient discharged Performed By: #### L 100.0100, L500.2500 ####[facility] [address] [place], [address] HGB Normal 13.0-16.5 [facility] Comment on above: Result Comment: Canc elled via OM: Order cancelled - Patient discharged Performed By: #### L 100.0100, L500.2500 ####[facility] [address] [place], [address] MCH Normal 27.0-32.0 [facility] Comment on above: Result Comment: Canc elled via OM: Order cancelled - Patient discharged Performed By: #### L 100.0100, L500.2500 ####[facility] [address] [place], [address] MCHC Normal 32-36 [facility] Comment on above: Result Comment: Canc elled via OM: Order cancelled - Patient discharged Performed By: #### L 100.0100, L500.2500 ####[facility] [address] [place], [address] MCV Normal 80-94 [facility] Comment on above: Result Comment: Canc elled via OM: Order cancelled - Patient discharged Performed By: #### L 100.0100, L500.2500 ####[facility] [address] [place], [address] NEUT% Normal 47-70 [facility] Comment on above: Result Comment: Canc elled via OM: Order cancelled - Patient discharged Performed By: #### L 100.0100, L500.2500 ####[facility] [address] [place], [address] PLT Normal 150-450 [facility] Comment on above: Result Comment: Canc elled via OM: Order cancelled - Patient discharged Performed By: #### L 100.0100, L500.2500 ####[facility] [address] [place], [address] RBC Normal 4.6-6.2 [facility] Comment on above: Result Comment: Canc elled via OM: Order cancelled - Patient discharged Performed By: #### L 100.0100, L500.2500 ####[facility] [address] [place], [address] RDW CV Normal 11.6-14.6 [facility] Comment on above: Result Comment: Canc elled via OM: Order cancelled - Patient discharged Performed By: #### L 100.0100, L500.2500 ####[facility] [address] [place], [address] RDW SD Normal 35.1-43.9 [facility] Comment on above: Result Comment: Canc elled via OM: Order cancelled - Patient discharged Performed By: #### L 100.0100, L500.2500 ####[facility] [address] [place], [address] WBC Normal 4.4-11.0 [facility] Comment on above: Result Comment: Canc elled via OM: Order cancelled - Patient discharged Performed By: #### L 100.0100, L500.2500 ####[facility] [address] [place], [address] Basic Metabolic Profile (BMP )on 01-16-2025 BUN Normal 4-19 [facility] Comment on above: Result Comment: Canc elled via OM: Order cancelled - Patient discharged Performed By: #### L 500.2500, L100.0100 ####[facility] [address] [place], [address] BUN/CRE Normal 10-20 [facility] Comment on above: Result Comment: Canc elled via OM: Order cancelled - Patient discharged Performed By: #### L 500.2500, L100.0100 ####[facility] [address] [place], [address] Calcium Normal 7.6-11.0 [facility] Comment on above: Result Comment: Canc elled via OM: Order cancelled - Patient discharged Performed By: #### L 500.2500, L100.0100 ####[facility] [address] [place], [address] CL Normal 98-108 [facility] Comment on above: Result Comment: Canc elled via OM: Order cancelled - Patient discharged Performed By: #### L 500.2500, L100.0100 ####[facility] [address] [place], [address] CO2 Normal 21.0-32.0 [facility] Comment on above: Result Comment: Canc elled via OM: Order cancelled - Patient discharged Performed By: #### L 500.2500, L100.0100 ####[facility] [address] [place], [address] CREAT,SERUM Normal 0.70-1.20 [facility] Comment on above: Result Comment: Canc elled via OM: Order cancelled - Patient discharged Performed By: #### L 500.2500, L100.0100 ####[facility] [address] [place], [address] eGFR Normal >60 [facility] Comment on above: Result Comment: Canc elled via OM: Order cancelled - Patient discharged Performed By: #### L 500.2500, L100.0100 ####[facility] [address] [place], [address] GAP Normal 5-15 [facility] Comment on above: Result Comment: Canc elled via OM: Order cancelled - Patient discharged Performed By: #### L 500.2500, L100.0100 ####[facility] [address] [place], [address] GLU Normal 70-99 [facility] Comment on above: Result Comment: Canc elled via OM: Order cancelled - Patient discharged Performed By: #### L 500.2500, L100.0100 ####[facility] [address] [place], [address] Potassium Normal 3.3-5.1 [facility] Comment on above: Result Comment: Canc elled via OM: Order cancelled - Patient discharged Performed By: #### L 500.2500, L100.0100 ####[facility] [address] [place], [address] Basic Metabolic Profile (BMP) Normal 133-145 [facility] Comment on above: Result Comment: Canc elled via OM: Order cancelled - Patient discharged Performed By: #### L 500.2500, L100.0100 ####[facility] [address] [place], [address] CBC W/Diff, Automatedon 05-0 -2024 Absolute Neut Normal 2.0-7.7 [facility] Comment on above: Result Comment: Canc elled via OM: Order cancelled - Patient discharged Performed By: #### L 500.2500, L100.0100 ####[facility] [address] [place], [address] HCT Normal 40-54 [facility] Comment on above: Result Comment: Canc elled via OM: Order cancelled - Patient discharged Performed By: #### L 500.2500, L100.0100 ####[facility] [address] [place], [address] HGB Normal 13.0-16.5 [facility] Comment on above: Result Comment: Canc elled via OM: Order cancelled - Patient discharged Performed By: #### L 500.2500, L100.0100 ####[facility] [address] [place], [address] MCH Normal 27.0-32.0 [facility] Comment on above: Result Comment: Canc elled via OM: Order cancelled - Patient discharged Performed By: #### L 500.2500, L100.0100 ####[facility] [address] [place], [address] MCHC Normal 32-36 [facility] Comment on above: Result Comment: Canc elled via OM: Order cancelled - Patient discharged Performed By: #### L 500.2500, L100.0100 ####[facility] [address] [place], [address] MCV Normal 80-94 [facility] Comment on above: Result Comment: Canc elled via OM: Order cancelled - Patient discharged Performed By: #### L 500.2500, L100.0100 ####[facility] [address] [place], [address] NEUT% Normal 47-70 [facility] Comment on above: Result Comment: Canc elled via OM: Order cancelled - Patient discharged Performed By: #### L 500.2500, L100.0100 ####[facility] [address] [place], [address] PLT Normal 150-450 [facility] Comment on above: Result Comment: Canc elled via OM: Order cancelled - Patient discharged Performed By: #### L 500.2500, L100.0100 ####[facility] [address] [place], [address] RBC Normal 4.6-6.2 [facility] Comment on above: Result Comment: Canc elled via OM: Order cancelled - Patient discharged Performed By: #### L 500.2500, L100.0100 ####[facility] [address] [place], [address] RDW CV Normal 11.6-14.6 [facility] Comment on above: Result Comment: Canc elled via OM: Order cancelled - Patient discharged Performed By: #### L 500.2500, L100.0100 ####[facility] [address] [place], [address] RDW SD Normal 35.1-43.9 [facility] Comment on above: Result Comment: Canc elled via OM: Order cancelled - Patient discharged Performed By: #### L 500.2500, L100.0100 ####[facility] [address] [place], [address] WBC Normal 4.4-11.0 [facility] Comment on above: Result Comment: Canc elled via OM: Order cancelled - Patient discharged Performed By: #### L 500.2500, L100.0100 ####[facility] [address] [place], [address] Basic Metabolic Profile (BMP )on 01-15-2025 BUN Normal 4-19 [facility] Comment on above: Result Comment: Canc elled via OM: Order cancelled - Patient discharged Performed By: #### L 500.2500, L100.0100 ####[facility] [address] [place], [address] BUN/CRE Normal 10-20 [facility] Comment on above: Result Comment: Canc elled via OM: Order cancelled - Patient discharged Performed By: #### L 500.2500, L100.0100 ####[facility] [address] [place], [address] Calcium Normal 7.6-11.0 [facility] Comment on above: Result Comment: Canc elled via OM: Order cancelled - Patient discharged Performed By: #### L 500.2500, L100.0100 ####[facility] [address] [place], [address] CL Normal 98-108 [facility] Comment on above: Result Comment: Canc elled via OM: Order cancelled - Patient discharged Performed By: #### L 500.2500, L100.0100 ####[facility] [address] [place], [address] CO2 Normal 21.0-32.0 [facility] Comment on above: Result Comment: Canc elled via OM: Order cancelled - Patient discharged Performed By: #### L 500.2500, L100.0100 ####[facility] [address] [place], [address] CREAT,SERUM Normal 0.70-1.20 [facility] Comment on above: Result Comment: Canc elled via OM: Order cancelled - Patient discharged Performed By: #### L 500.2500, L100.0100 ####[facility] [address] [place], [address] eGFR Normal >60 [facility] Comment on above: Result Comment: Canc elled via OM: Order cancelled - Patient discharged Performed By: #### L 500.2500, L100.0100 ####[facility] [address] [place], [address] GAP Normal 5-15 [facility] Comment on above: Result Comment: Canc elled via OM: Order cancelled - Patient discharged Performed By: #### L 500.2500, L100.0100 ####[facility] [address] [place], [address] GLU Normal 70-99 [facility] Comment on above: Result Comment: Canc elled via OM: Order cancelled - Patient discharged Performed By: #### L 500.2500, L100.0100 ####[facility] [address] [place], [address] Potassium Normal 3.3-5.1 [facility] Comment on above: Result Comment: Canc elled via OM: Order cancelled - Patient discharged Performed By: #### L 500.2500, L100.0100 ####[facility] [address] [place], [address] Basic Metabolic Profile (BMP) Normal 133-145 [facility] Comment on above: Result Comment: Canc elled via OM: Order cancelled - Patient discharged Performed By: #### L 500.2500, L100.0100 ####[facility] [address] [place], [address] CBC W/Diff, Automatedon 05-0 2-2024 Absolute Neut Normal 2.0-7.7 [facility] Comment on above: Result Comment: Canc elled via OM: Order cancelled - Patient discharged Performed By: #### L 500.2500, L100.0100 ####[facility] [address] [place], [address] HCT Normal 40-54 [facility] Comment on above: Result Comment: Canc elled via OM: Order cancelled - Patient discharged Performed By: #### L 500.2500, L100.0100 ####[facility] [address] [place], [address] HGB Normal 13.0-16.5 [facility] Comment on above: Result Comment: Canc elled via OM: Order cancelled - Patient discharged Performed By: #### L 500.2500, L100.0100 ####[facility] [address] [place], [address] MCH Normal 27.0-32.0 [facility] Comment on above: Result Comment: Canc elled via OM: Order cancelled - Patient discharged Performed By: #### L 500.2500, L100.0100 ####[facility] [address] [place], [address] MCHC Normal 32-36 [facility] Comment on above: Result Comment: Canc elled via OM: Order cancelled - Patient discharged Performed By: #### L 500.2500, L100.0100 ####[facility] [address] [place], [address] MCV Normal 80-94 [facility] Comment on above: Result Comment: Canc elled via OM: Order cancelled - Patient discharged Performed By: #### L 500.2500, L100.0100 ####[facility] [address] [place], [address] NEUT% Normal 47-70 [facility] Comment on above: Result Comment: Canc elled via OM: Order cancelled - Patient discharged Performed By: #### L 500.2500, L100.0100 ####[facility] [address] [place], [address] PLT Normal 150-450 [facility] Comment on above: Result Comment: Canc elled via OM: Order cancelled - Patient discharged Performed By: #### L 500.2500, L100.0100 ####[facility] [address] [place], [address] RBC Normal 4.6-6.2 [facility] Comment on above: Result Comment: Canc elled via OM: Order cancelled - Patient discharged Performed By: #### L 500.2500, L100.0100 ####[facility] [address] [place], [address] RDW CV Normal 11.6-14.6 [facility] Comment on above: Result Comment: Canc elled via OM: Order cancelled - Patient discharged Performed By: #### L 500.2500, L100.0100 ####[facility] [address] [place], [address] RDW SD Normal 35.1-43.9 [facility] Comment on above: Result Comment: Canc elled via OM: Order cancelled - Patient discharged Performed By: #### L 500.2500, L100.0100 ####[facility] [address] [place], [address] WBC Normal 4.4-11.0 [facility] Comment on above: Result Comment: Canc elled via OM: Order cancelled - Patient discharged Performed By: #### L 500.2500, L100.0100 ####[facility] [address] [place], [address] SP/HP.SP.Hollie 01-15-2025 SP/HP.SP.EV Normal [facility] Absolute lymphocyte countOrd ered By: Renae Rubalcava on 01-14-2025 Lymphocytes Auto (Unsp spec) [#/Vol] 1.91 10*3/uL 0.83-4.51 [facility] Absolute neutrophil countOrd ered By: Renae Rubalcava on 01-14-2025 Neutrophils (Bld) [#/Vol] 2.6 10*3/uL 2.0-7.7 [facility] Anion gap in Serum or Plasma Ordered By: Renae Rubalcava on 01-14-2025 Anion gap [Moles/Vol] 10 mmol/L 5-15 [facility] Automated lymphocyte count a s percentage of total leukocytesOrdered By: Renae Rubalcava on 01-14-2025 Lymphocytes/100 WBC Auto (Unsp spec) 35.2 % [facility] BUN/creatinine ratioOrdered By: Renae Rubalcava on 01-14-2025 Urea nitrogen/Creatinine [Mass ratio] 18.3 mg/mg - [facility] Basic Metabolic Profile (BMP )on 01-14-2025 BUN/CRE 18.3 RATIO Normal - [facility] Comment on above: Performed By: #### L 100.0100, L500.2500 ####[facility] [address] [place], [address] Calcium [Mass/Vol] 9.5 mg/dL Normal 7.6-11.0 [facility] Comment on above: Performed By: #### L 100.0100, L500.2500 ####[facility] [address] [place], [address] Chloride [Moles/Vol] 106 mmol/L Normal 98-108 [facility] Comment on above: Performed By: #### L 100.0100, L500.2500 ####[facility] [address] [place], [address] CO2 [Moles/Vol] 23.5 mmol/L Normal 21.0-32.0 [facility] Comment on above: Performed By: #### L 100.0100, L500.2500 ####[facility] [address] [place], [address] Creatinine [Mass/Vol] 1.40 mg/dL High 0.70-1.20 [facility] Comment on above: Performed By: #### L 100.0100, L500.2500 ####[facility] [address] [place], [address] ECRCL 47.40 ml/min Low 50-250 [facility] Comment on above: Performed By: #### L 100.0100, L500.2500 ####[facility] [address] [place], [address] GAP 10 Normal 5-15 [facility] Comment on above: Performed By: #### L 100.0100, L500.2500 ####[facility] [address] [place], [address] GFR/1.73 sq M.predicted among non-blacks MDRD (S/P/Bld) [Vol rate/Area] 53 mL/min/{1.73_m2} Low >60 [facility] Comment on above: Result Comment: mL/m in/1.73m2 CKD-EPI Creatinine Equation (2020) Performed By: #### L 100.0100, L500.2500 ####[facility] [address] [place], [address] Glucose [Mass/Vol] 113 mg/dL High 70-99 [facility] Comment on above: Performed By: #### L 100.0100, L500.2500 ####[facility] [address] [place], [address] Potassium [Moles/Vol] 4.1 mmol/L Normal 3.3-5.1 [facility] Comment on above: Performed By: #### L 100.0100, L500.2500 ####[facility] [address] [place], [address] Sodium [Moles/Vol] 140 mmol/L Normal 133-145 [facility] Comment on above: Performed By: #### L 100.0100, L500.2500 ####[facility] [address] [place], [address] Urea nitrogen [Mass/Vol] 26 mg/dL High 4-19 [facility] Comment on above: Performed By: #### L 100.0100, L500.2500 ####[facility] [address] [place], [address] Basophil percentageOrdered B y: Renae Rubalcava on 01-14-2025 Basophils/100 WBC (Bld) 0.2 % 0-1 [facility] Bedside Glucoseon 01-14-2025 FINGERSTICK GLU 254 mg/dL High 74-106 [facility] Comment on above: Result Comment: ANGELA GEMENT OF PATIENT CARE PER NURSING PROTOCOL Performed By: #### L 501.080 ####[facility] [address] [place], [address] FINGERSTICK GLU 121 mg/dL High 74-106 [facility] Comment on above: Result Comment: ANGELA GEMENT OF PATIENT CARE PER NURSING PROTOCOL Performed By: #### L 501.080 ####[facility] [address] [place], [address] CBC W/Diff, Automatedon Absolute Lymph 1.91 X10 3/uL Normal 0.83-4.51 [facility] Comment on above: Performed By: #### L 100.0100, L500.2500 ####[facility] [address] [place], [address] Absolute Neut 2.6 X10 3/uL Normal 2.0-7.7 [facility] Comment on above: Performed By: #### L 100.0100, L500.2500 ####[facility] [address] [place], [address] Basophils/100 WBC (Bld) 0.2 % Normal 0-1 [facility] Comment on above: Performed By: #### L 100.0100, L500.2500 ####[facility] [address] [place], [address] Eosinophils/100 WBC (Bld) 3.9 % Normal 0-5 [facility] Comment on above: Performed By: #### L 100.0100, L500.2500 ####[facility] [address] [place], [address] Erythrocyte distribution width (RBC) [Ratio] 12.6 % Normal 11.6-14.6 [facility] Comment on above: Performed By: #### L 100.0100, L500.2500 ####[facility] [address] [place], [address] Hematocrit (Bld) [Volume fraction] 36.6 % Low 40-54 [facility] Comment on above: Performed By: #### L 100.0100, L500.2500 ####[facility] [address] [place], [address] Hemoglobin (Bld) [Mass/Vol] 12.7 g/dL Low 13.0-16.5 [facility] Comment on above: Performed By: #### L 100.0100, L500.2500 ####[facility] [address] [place], [address] IG% 0.200 Normal 0.0-0.9 [facility] Comment on above: Result Comment: IG% - Immature Granulocytes (promyelocytes, myelocytes andmetamyelocytes) > 1% indicates that a LEFT SHIFT is Present. Performed By: #### L 100.0100, L500.2500 ####[facility] [address] [place], [address] Lymphocytes/100 WBC (Bld) 35.2 % Normal 19-41 [facility] Comment on above: Performed By: #### L 100.0100, L500.2500 ####[facility] [address] [place], [address] MCH (RBC) [Entitic mass] 30.8 pg Normal 27.0-32.0 [facility] Comment on above: Performed By: #### L 100.0100, L500.2500 ####[facility] [address] [place], [address] MCHC (RBC) [Mass/Vol] 34.7 g/dL Normal 32-36 [facility] Comment on above: Performed By: #### L 100.0100, L500.2500 ####[facility] [address] [place], [address] MCV (RBC) [Entitic vol] 88.8 fL Normal 80-94 [facility] Comment on above: Performed By: #### L 100.0100, L500.2500 ####[facility] [address] [place], [address] Monocytes/100 WBC (Bld) 13.3 % High 0-10 [facility] Comment on above: Performed By: #### L 100.0100, L500.2500 ####[facility] [address] [place], [address] Neutrophils/100 WBC (Bld) 47.2 % Normal 47-70 [facility] Comment on above: Performed By: #### L 100.0100, L500.2500 ####[facility] [address] [place], [address] Nucleated RBC (Bld) [#/Vol] 0 10*3/uL Normal 0-5 [facility] Comment on above: Performed By: #### L 100.0100, L500.2500 ####[facility] [address] [place], [address] Platelet mean volume (Bld) [Entitic vol] 10.0 fL Normal 6.2-12.0 [facility] Comment on above: Performed By: #### L 100.0100, L500.2500 ####[facility] [address] [place], [address] Platelets (Bld) [#/Vol] 253 10*3/uL Normal 150-450 [facility] Comment on above: Performed By: #### L 100.0100, L500.2500 ####[facility] [address] [place], [address] RBC (Bld) [#/Vol] 4.12 10*6/uL Low 4.6-6.2 [facility] Comment on above: Performed By: #### L 100.0100, L500.2500 ####[facility] [address] [place], [address] RDW SD 41.3 fl Normal 35.1-43.9 [facility] Comment on above: Performed By: #### L 100.0100, L500.2500 ####[facility] [address] [place], [address] WBC (Bld) [#/Vol] 5.4 10*3/uL Normal 4.4-11.0 [facility] Comment on above: Performed By: #### L 100.0100, L500.2500 ####[facility] [address] [place], [address] Carbon dioxide, total [Moles /volume] in Central venous bloodOrdered By: Renae Rubalcava on 01-14-2025 CO2 [Moles/Vol] 23.5 mmol/L 21.0-32.0 [facility] Chloride assayOrdered By: Na paulina Rubalcava on 01-14-2025 Chloride [Moles/Vol] 106 mmol/L 98-108 [facility] Discharge Instructionon 05-0 Discharge Instruction Normal [facility] Eosinophil percentageOrdered By: Renae Rubalcava on 01-14-2025 Eosinophils/100 WBC (Bld) 3.9 % 0-5 [facility] Erythrocyte distribution wid th ratioOrdered By: Renae Rubalcava on 01-14-2025 Erythrocyte distribution width (RBC) [Ratio] 12.6 % 11.6-14.6 [facility] Erythrocyte distribution wid th standard deviationOrdered By: Renae Rubalcava on 01-14-2025 Erythrocyte distribution width (RBC) [Ratio] 41.3 fl 35.1-43.9 [facility] Glomerular filtration rate ( GFR) estimation/1.73 sq m using serum, plasma, or whole bOrdered By: Renae Rubalcava on 01-14-2025 GFR/1.73 sq M.predicted among non-blacks MDRD (S/P/Bld) [Vol rate/Area] 53 mL/min/{1.73_m2} Low >60 [facility] Comment on above: mL/min/1.73m2 CKD-EP I Creatinine Equation (2020) Glucose measurement at bedsi deOrdered By: Renae Rubalcava on 01-14-2025 Glucose [Mass/Vol] 254 mg/dL High 74-106 [facility] Comment on above: MANAGEMENT OF PATIEN T CARE PER NURSING PROTOCOL Hematocrit Auto (Bld) [Volum e fraction]Ordered By: Renae Rubalcava on 01-14-2025 Hematocrit (Bld) [Volume fraction] 36.6 % Low 40-54 [facility] Hemoglobin measurementOrdere d By: Renae Rubalcava on 01-14-2025 Hemoglobin (Bld) [Mass/Vol] 12.7 g/dL Low 13.0-16.5 [facility] Immature granulocytes/100 WB C Auto (Bld)Ordered By: Renae Rubalcava on 01-14-2025 Immature granulocytes/100 WBC (Bld) 0.200 % 0.0-0.9 [facility] Comment on above: IG% - Immature Granu locytes (promyelocytes, myelocytes and metamyelocytes) > 1% indicates that a LEFT SHIFT is Present. MCV (mean corpuscular volume ) determinationOrdered By: Renae Rubalcava on 01-14-2025 MCV (RBC) [Entitic vol] 88.8 fL 80-94 [facility] Mean corpuscular hemoglobin (MCH) determinationOrdered By: Renae Rubalcava 01-14-2025 MCH (RBC) [Entitic mass] 30.8 pg 27.0-32.0 [facility] Mean corpuscular hemoglobin concentration (MCHC) determinationOrdered By: Renae Rubalcava on 01-14-2025 MCHC (RBC) [Mass/Vol] 34.7 g/dL 32-36 [facility] Mean platelet volume determi nationOrdered By: Renae Rubalcava on 01-14-2025 Platelet mean volume (Bld) [Entitic vol] 10.0 fL 6.2-12.0 [facility] Monocyte percentageOrdered B y: Renae Rubalcava on 01-14-2025 Monocytes/100 WBC (Bld) 13.3 % High 0-10 [facility] Neutrophil percentageOrdered By: Renae Rubalcava on 01-14-2025 Neutrophils/100 WBC (Bld) 47.2 % 47-70 [facility] Nucleated red blood cell per centageOrdered By: Renae Rubalcava on 01-14-2025 Nucleated RBC/100 WBC (Bld) [Ratio] 0 % 0-5 [facility] Platelet countOrdered By: Na paulina Rubalcava on 01-14-2025 Platelets (Bld) [#/Vol] 253 10*3/uL 150-450 [facility] Potassium measurement (mass/ volume)Ordered By: Renae Rubalcava on 01-14-2025 Potassium (Unsp spec) [Mass/Vol] 4.1 mmol/L 3.3-5.1 [facility] RBC Auto (Bld) [#/Vol]Ordere d By: Renae Rubalcava on 01-14-2025 RBC (Bld) [#/Vol] 4.12 10*6/uL Low 4.6-6.2 [facility] Serum creatinine measurement (mass/volume)Ordered By: Renae Rubalcava on 01-14-2025 Creatinine [Mass/Vol] 1.40 mg/dL High 0.70-1.20 [facility] Serum glucose measurement (m ass/volume)Ordered By: Renae Rubalcava on 01-14-2025 Glucose [Mass/Vol] 113 mg/dL High 70-99 [facility] Serum or plasma calcium makeda urement (mass/volume)Ordered By: Renae Rubalcava on 01-14-2025 Calcium [Mass/Vol] 9.5 mg/dL 7.6-11.0 [facility] Serum or plasma urea nitroge n measurement (mass/volume)Ordered By: Renae Rubalcava on 01-14-2025 Urea nitrogen [Mass/Vol] 26 mg/dL High 4-19 [facility] Sodium levelOrdered By: Renae Rubalcava on 05-01-2025 Sodium [Moles/Vol] 140 mmol/L 133-145 [facility] White blood cell (WBC) count Ordered By: Renaenydia Rubalcava on 01-14-2025 WBC (Bld) [#/Vol] 5.4 10*3/uL 4.4-11.0 [facility] Basic Metabolic Profile (BMP )on 01-13-2025 BUN/CRE 19.0 RATIO Normal 10-20 [facility] Comment on above: Order Comment: Comme nts: NPO at [place] prior to lipid panel Performed By: #### L 500.2500, L500.4100, L100.0100 ####[facility] [address] [place], [address] Calcium [Mass/Vol] 10.1 mg/dL Normal 7.6-11.0 [facility] Comment on above: Order Comment: Comme nts: NPO at [place] prior to lipid panel Performed By: #### L 500.2500, L500.4100, L100.0100 ####[facility] [address] [place], [address] Chloride [Moles/Vol] 102 mmol/L Normal 98-108 [facility] Comment on above: Order Comment: Comme nts: NPO at [place] prior to lipid panel Performed By: #### L 500.2500, L500.4100, L100.0100 ####[facility] [address] [place], [address] CO2 [Moles/Vol] 24.3 mmol/L Normal 21.0-32.0 [facility] Comment on above: Order Comment: Comme nts: NPO at [place] prior to lipid panel Performed By: #### L 500.2500, L500.4100, L100.0100 ####[facility] [address] [place], [address] Creatinine [Mass/Vol] 1.64 mg/dL High 0.70-1.20 [facility] Comment on above: Order Comment: Comme nts: NPO at [place] prior to lipid panel Performed By: #### L 500.2500, L500.4100, L100.0100 ####[facility] [address] [place], [address] ECRCL 40.47 ml/min Low 50-250 [facility] Comment on above: Order Comment: Comme nts: NPO at [place] prior to lipid panel Performed By: #### L 500.2500, L500.4100, L100.0100 ####[facility] [address] [place], [address] GAP 13 Normal 5-15 [facility] Comment on above: Order Comment: Comme nts: NPO at [place] prior to lipid panel Performed By: #### L 500.2500, L500.4100, L100.0100 ####[facility] [address] [place], [address] GFR/1.73 sq M.predicted among non-blacks MDRD (S/P/Bld) [Vol rate/Area] 44 mL/min/{1.73_m2} Low >60 [facility] Comment on above: Order Comment: Comme nts: NPO at [place] prior to lipid panel Result Comment: mL/m in/1.73m2 CKD-EPI Creatinine Equation (2020) Performed By: #### L 500.2500, L500.4100, L100.0100 ####[facility] [address] [place], [address] Glucose [Mass/Vol] 151 mg/dL High 70-99 [facility] Comment on above: Order Comment: Comme nts: NPO at [place] prior to lipid panel Performed By: #### L 500.2500, L500.4100, L100.0100 ####[facility] [address] [place], [address] Potassium [Moles/Vol] 4.3 mmol/L Normal 3.3-5.1 [facility] Comment on above: Order Comment: Comme nts: NPO at [place] prior to lipid panel Result Comment: Hemo lysis present, Results??could be affected.?? Performed By: #### L 500.2500, L500.4100, L100.0100 ####[facility] [address] [place], [address] Sodium [Moles/Vol] 139 mmol/L Normal 133-145 [facility] Comment on above: Order Comment: Comme nts: NPO at [place] prior to lipid panel Performed By: #### L 500.2500, L500.4100, L100.0100 ####[facility] [address] [place], [address] Urea nitrogen [Mass/Vol] 31 mg/dL High 4-19 [facility] Comment on above: Order Comment: Comme nts: NPO at [place] prior to lipid panel Performed By: #### L 500.2500, L500.4100, L100.0100 ####[facility] [address] [place], [address] Bedside Glucoseon 01-13-2025 FINGERSTICK GLU 227 mg/dL High 74-106 [facility] Comment on above: Result Comment: ANGELA GEMENT OF PATIENT CARE PER NURSING PROTOCOL Performed By: #### L 501.080 ####[facility] [address] [place], [address] FINGERSTICK GLU 385 mg/dL High 74-106 [facility] Comment on above: Result Comment: ANGELA GEMENT OF PATIENT CARE PER NURSING PROTOCOL Performed By: #### L 501.080 ####[facility] [address] [place], [address] FINGERSTICK GLU 285 mg/dL High 74-106 [facility] Comment on above: Result Comment: ANGELA GEMENT OF PATIENT CARE PER NURSING PROTOCOL Performed By: #### L 501.080 ####[facility] [address] [place], [address] FINGERSTICK GLU 152 mg/dL High 74-106 [facility] Comment on above: Result Comment: ANGELA GEMENT OF PATIENT CARE PER NURSING PROTOCOL Performed By: #### L 501.080 ####[facility] [address] [place], [address] FINGERSTICK GLU 240 mg/dL High 74-106 [facility] Comment on above: Result Comment: ANGELA GEMENT OF PATIENT CARE PER NURSING PROTOCOL Performed By: #### L 501.080 ####[facility] [address] [place], [address] CBC W/Diff, Automatedon 04-3 0-2024 Absolute Lymph 1.65 X10 3/uL Normal 0.83-4.51 [facility] Comment on above: Performed By: #### L 500.2500, L500.4100, L100.0100 ####[facility] [address] [place], [address] Absolute Neut 2.3 X10 3/uL Normal 2.0-7.7 [facility] Comment on above: Performed By: #### L 500.2500, L500.4100, L100.0100 ####[facility] [address] [place], [address] Basophils/100 WBC (Bld) 0.4 % Normal 0-1 [facility] Comment on above: Performed By: #### L 500.2500, L500.4100, L100.0100 ####[facility] [address] [place], [address] Eosinophils/100 WBC (Bld) 4.6 % Normal 0-5 [facility] Comment on above: Performed By: #### L 500.2500, L500.4100, L100.0100 ####[facility] [address] [place], [address] Erythrocyte distribution width (RBC) [Ratio] 12.6 % Normal 11.6-14.6 [facility] Comment on above: Performed By: #### L 500.2500, L500.4100, L100.0100 ####[facility] [address] [place], [address] Hematocrit (Bld) [Volume fraction] 38.1 % Low 40-54 [facility] Comment on above: Performed By: #### L 500.2500, L500.4100, L100.0100 ####[facility] [address] [place], [address] Hemoglobin (Bld) [Mass/Vol] 13.2 g/dL Normal 13.0-16.5 [facility] Comment on above: Performed By: #### L 500.2500, L500.4100, L100.0100 ####[facility] [address] [place], [address] IG% 0.200 Normal 0.0-0.9 [facility] Comment on above: Result Comment: IG% - Immature Granulocytes (promyelocytes, myelocytes andmetamyelocytes) > 1% indicates that a LEFT SHIFT is Present. Performed By: #### L 500.2500, L500.4100, L100.0100 ####[facility] [address] [place], [address] Lymphocytes/100 WBC (Bld) 34.4 % Normal 19-41 [facility] Comment on above: Performed By: #### L 500.2500, L500.4100, L100.0100 ####[facility] [address] [place], [address] MCH (RBC) [Entitic mass] 30.8 pg Normal 27.0-32.0 [facility] Comment on above: Performed By: #### L 500.2500, L500.4100, L100.0100 ####[facility] [address] [place], [address] MCHC (RBC) [Mass/Vol] 34.6 g/dL Normal 32-36 [facility] Comment on above: Performed By: #### L 500.2500, L500.4100, L100.0100 ####[facility] [address] [place], [address] MCV (RBC) [Entitic vol] 89.0 fL Normal 80-94 [facility] Comment on above: Performed By: #### L 500.2500, L500.4100, L100.0100 ####[facility] [address] [place], [address] Monocytes/100 WBC (Bld) 11.7 % High 0-10 [facility] Comment on above: Performed By: #### L 500.2500, L500.4100, L100.0100 ####[facility] [address] [place], [address] Neutrophils/100 WBC (Bld) 48.7 % Normal 47-70 [facility] Comment on above: Performed By: #### L 500.2500, L500.4100, L100.0100 ####[facility] [address] [place], [address] Nucleated RBC (Bld) [#/Vol] 0 10*3/uL Normal 0-5 [facility] Comment on above: Performed By: #### L 500.2500, L500.4100, L100.0100 ####[facility] [address] [place], [address] Platelet mean volume (Bld) [Entitic vol] 10.0 fL Normal 6.2-12.0 [facility] Comment on above: Performed By: #### L 500.2500, L500.4100, L100.0100 ####[facility] [address] [place], [address] Platelets (Bld) [#/Vol] 270 10*3/uL Normal 150-450 [facility] Comment on above: Performed By: #### L 500.2500, L500.4100, L100.0100 ####[facility] [address] [place], [address] RBC (Bld) [#/Vol] 4.28 10*6/uL Low 4.6-6.2 [facility] Comment on above: Performed By: #### L 500.2500, L500.4100, L100.0100 ####[facility] [address] [place], [address] RDW SD 41.0 fl Normal 35.1-43.9 [facility] Comment on above: Performed By: #### L 500.2500, L500.4100, L100.0100 ####[facility] [address] [place], [address] WBC (Bld) [#/Vol] 4.8 10*3/uL Normal 4.4-11.0 [facility] Comment on above: Performed By: #### L 500.2500, L500.4100, L100.0100 ####[facility] [address] [place], [address] Calculated very low density lipoprotein (VLDL) cholesterol measurementOrdered By: Bhupinder Kenney on 01-13-2025 Calculated very low density lipoprotein (VLDL) cholesterol measurement 50 mg/dL High 5-40 [facility] Carotid Duplex Ultrasoundon 01-13-2025 Carotid Duplex Ultrasound Normal [facility] LDL calc ser/plasOrdered By: Bhupinder Kenney on 01-13-2025 Cholesterol in LDL [Mass/Vol] 80 mg/dL [facility] Comment on above: Gkgvelqakh=681-620 m g/dL & Higher Qcjl=976 mg/dL or greater Lipid Profileon 01-13-2025 CHOL:HDL 4.66 Normal [facility] Comment on above: Order Comment: Comme nts: NPO at [place] prior to lipid panel Performed By: #### L 500.2500, L500.4100, L100.0100 ####[facility] [address] [place], [address] Cholesterol [Mass/Vol] 165 mg/dL Normal <=200 [facility] Comment on above: Order Comment: Comme nts: NPO at [place] prior to lipid panel Result Comment: Chol esterol level, Desirable <200 mg/dLBorderline high cholesterol 200-239 mg/dLHigh cholesterol >=240 mg/dLRecommendations of the NCEP Adult Treatment Panel for thefollowing risk-cutoff thresholds for the [place] Americanpulation. Performed By: #### L 500.2500, L500.4100, L100.0100 ####[facility] [address] [place], [address] Cholesterol in HDL [Mass/Vol] 35 mg/dL Low [facility] Comment on above: Order Comment: Comme nts: NPO at [place] prior to lipid panel Result Comment: Elinor onal Cholesterol Education Program (NCEP) guidelines:<40 mg/dL: Low HDL-cholesterol (major risk factor for CHD)>= 60 mg/dL: High HDL-cholesterol (negative risk factor forCHD)HDL-cholesterol is affected by a number of factors, e.g.smoking, exercise, hormones, sex and age. Performed By: #### L 500.2500, L500.4100, L100.0100 ####[facility] [address] [place], [address] Cholesterol in LDL [Mass/Vol] 80 mg/dL Normal [facility] Comment on above: Order Comment: Comme nts: NPO at [place] prior to lipid panel Result Comment: Bord nrlqfy=515-610 mg/dL Higher Hesk=903 mg/dL or greater Performed By: #### L 500.2500, L500.4100, L100.0100 ####[facility] [address] [place], [address] Cholesterol in VLDL [Mass/Vol] 50 mg/dL High 5-40 [facility] Comment on above: Order Comment: Comme nts: NPO at [place] prior to lipid panel Performed By: #### L 500.2500, L500.4100, L100.0100 ####[facility] [address] [place], [address] Triglyceride [Mass/Vol] 250 mg/dL High [facility] Comment on above: Order Comment: Comme nts: NPO at [place] prior to lipid panel Result Comment: The drugs N-Acetylcysteine and Metamizole may falselydepress this assay.Normal range: <150 mg/dLBorderline High: 150-199 mg/dLHigh: 200-499 mg/dLVery High: >500 mg/dL Performed By: #### L 500.2500, L500.4100, L100.0100 ####[facility] [address] [place], [place], [address] Screening total cholesterol/ high density lipoprotein (HDL) cholesterol ratioOrdered By: Bhupinder Kenney on 01-13-2025 Cholesterol.total/Chol esterol in HDL [Mass ratio] 4.66 {ratio} [facility] Serum or plasma cholesterol in HDL measurement (mass/volume)Ordered By: Bhupinder Kenney on 01-13-2025 Cholesterol in HDL [Mass/Vol] 35 mg/dL Low >40 [facility] Comment on above: National Cholesterol Education Program (NCEP) guidelines:<40 mg/dL: Low HDL-cholesterol (major risk factor for CHD)>= 60 mg/dL: High HDL-cholesterol (negative risk factor for CHD)HDL-cholesterol is affected by a number of factors, e.g. smoking, exercise, hormones, sex and age. Serum or plasma cholesterol measurement (mass/volume)Ordered By: Bhupinder Kenney on 01-13-2025 Cholesterol [Mass/Vol] 165 mg/dL <201 [facility] Comment on above: Cholesterol level, D esirable <200 mg/dLBorderline high cholesterol 200-239 mg/dLHigh cholesterol >=240 mg/dLRecommendations of the NCEP Adult Treatment Panel for the following risk-cutoff thresholds for the [place] population. Triglycerides measurementOrd ered By: Bhupinder Kenney on 01-13-2025 Triglyceride [Mass/Vol] 250 mg/dL High <199 [facility] Comment on above: The drugs N-Acetylcy steine and Metamizole may falsely depress this assay. Normal range: <150 mg/dLBorderline High: 150-199 mg/dLHigh: 200-499 mg/dLVery High: >500 mg/dL 12 Lead EKGon 01-12-2025 12 Lead EKG Normal [facility] Activated partial thrombopla stin time (aPTT) in platelet poor plasma by coagulation aOrdered By: Diogenes Villalpando on 01-12-2025 aPTT Coag (PPP) [Time] 22.3 s Low 24.1-36.2 [facility] Basic Metabolic Profile (BMP )on 01-12-2025 BUN/CRE 18.9 RATIO Normal 10-20 [facility] Comment on above: Performed By: #### L 100.0100, L501.4021, L300.4310, L300.3900, L500.2500 ####[facility] [address] [place], [address] Calcium [Mass/Vol] 10.5 mg/dL Normal 7.6-11.0 [facility] Comment on above: Performed By: #### L 100.0100, L501.4021, L300.4310, L300.3900, L500.2500 ####[facility] [address] [place], [address] Chloride [Moles/Vol] 101 mmol/L Normal 98-108 [facility] Comment on above: Performed By: #### L 100.0100, L501.4021, L300.4310, L300.3900, L500.2500 ####[facility] [address] [place], [address] CO2 [Moles/Vol] 21.0 mmol/L Normal 21.0-32.0 [facility] Comment on above: Performed By: #### L 100.0100, L501.4021, L300.4310, L300.3900, L500.2500 ####[facility] [address] [place], [address] Creatinine [Mass/Vol] 2.12 mg/dL High 0.70-1.20 [facility] Comment on above: Performed By: #### L 100.0100, L501.4021, L300.4310, L300.3900, L500.2500 ####[facility] [address] [place], [address] ECRCL 30.79 ml/min Low 50-250 [facility] Comment on above: Performed By: #### L 100.0100, L501.4021, L300.4310, L300.3900, L500.2500 ####[facility] [address] [place], [address] GAP 15 Normal 5-15 [facility] Comment on above: Performed By: #### L 100.0100, L501.4021, L300.4310, L300.3900, L500.2500 ####[facility] [address] [place], [address] GFR/1.73 sq M.predicted among non-blacks MDRD (S/P/Bld) [Vol rate/Area] 32 mL/min/{1.73_m2} Low >60 [facility] Comment on above: Result Comment: mL/m in/1.73m2 CKD-EPI Creatinine Equation (2020) Performed By: #### L 100.0100, L501.4021, L300.4310, L300.3900, L500.2500 ####[facility] [address] [place], [address] Glucose [Mass/Vol] 238 mg/dL High 70-99 [facility] Comment on above: Performed By: #### L 100.0100, L501.4021, L300.4310, L300.3900, L500.2500 ####[facility] [address] [place], [address] Potassium [Moles/Vol] 4.9 mmol/L Normal 3.3-5.1 [facility] Comment on above: Performed By: #### L 100.0100, L501.4021, L300.4310, L300.3900, L500.2500 ####[facility] [address] [place], [address] Sodium [Moles/Vol] 137 mmol/L Normal 133-145 [facility] Comment on above: Performed By: #### L 100.0100, L501.4021, L300.4310, L300.3900, L500.2500 ####[facility] [address] [place], [address] Urea nitrogen [Mass/Vol] 40 mg/dL High 4-19 [facility] Comment on above: Performed By: #### L 100.0100, L501.4021, L300.4310, L300.3900, L500.2500 ####[facility] [address] [place], [address] Bedside Glucoseon 01-12-2025 FINGERSTICK GLU 212 mg/dL High 74-106 [facility] Comment on above: Result Comment: ANGELA VALDERRAMA OF PATIENT CARE PER NURSING PROTOCOL Performed By: #### L 501.080 ####[facility] [address] [place], [address] Bilirubin Test strip Ql (U)O rdered By: Diogenes Villalpando on 01-12-2025 Bilirubin Ql (U) Negative Negative [facility] Brain without Contraston Brain without Contrast Normal [facility] CBC W/Diff, Automatedon - Absolute Lymph 1.91 X10 3/uL Normal 0.83-4.51 [facility] Comment on above: Performed By: #### L 100.0100, L501.4021, L300.4310, L300.3900, L500.2500 ####[facility] [address] [place], [address] Absolute Neut 3.1 X10 3/uL Normal 2.0-7.7 [facility] Comment on above: Performed By: #### L 100.0100, L501.4021, L300.4310, L300.3900, L500.2500 ####[facility] [address] [place], [address] Basophils/100 WBC (Bld) 0.5 % Normal 0-1 [facility] Comment on above: Performed By: #### L 100.0100, L501.4021, L300.4310, L300.3900, L500.2500 ####[facility] [address] [place], [address] Eosinophils/100 WBC (Bld) 3.6 % Normal 0-5 [facility] Comment on above: Performed By: #### L 100.0100, L501.4021, L300.4310, L300.3900, L500.2500 ####[facility] [address] [place], [address] Erythrocyte distribution width (RBC) [Ratio] 12.7 % Normal 11.6-14.6 [facility] Comment on above: Performed By: #### L 100.0100, L501.4021, L300.4310, L300.3900, L500.2500 ####[facility] [address] [place], [address] Hematocrit (Bld) [Volume fraction] 36.3 % Low 40-54 [facility] Comment on above: Performed By: #### L 100.0100, L501.4021, L300.4310, L300.3900, L500.2500 ####[facility] [address] [place], [address] Hemoglobin (Bld) [Mass/Vol] 12.7 g/dL Low 13.0-16.5 [facility] Comment on above: Performed By: #### L 100.0100, L501.4021, L300.4310, L300.3900, L500.2500 ####[facility] [address] [place], [address] IG% 0.300 Normal 0.0-0.9 [facility] Comment on above: Result Comment: IG% - Immature Granulocytes (promyelocytes, myelocytes andmetamyelocytes) > 1% indicates that a LEFT SHIFT is Present. Performed By: #### L 100.0100, L501.4021, L300.4310, L300.3900, L500.2500 ####[facility] [address] [place], [address] Lymphocytes/100 WBC (Bld) 32.3 % Normal 19-41 [facility] Comment on above: Performed By: #### L 100.0100, L501.4021, L300.4310, L300.3900, L500.2500 ####[facility] [address] [place], [address] MCH (RBC) [Entitic mass] 31.0 pg Normal 27.0-32.0 [facility] Comment on above: Performed By: #### L 100.0100, L501.4021, L300.4310, L300.3900, L500.2500 ####[facility] [address] [place], [address] MCHC (RBC) [Mass/Vol] 35.0 g/dL Normal 32-36 [facility] Comment on above: Performed By: #### L 100.0100, L501.4021, L300.4310, L300.3900, L500.2500 ####[facility] [address] [place], [address] MCV (RBC) [Entitic vol] 88.5 fL Normal 80-94 [facility] Comment on above: Performed By: #### L 100.0100, L501.4021, L300.4310, L300.3900, L500.2500 ####[facility] [address] [place], [address] Monocytes/100 WBC (Bld) 11.7 % High 0-10 [facility] Comment on above: Performed By: #### L 100.0100, L501.4021, L300.4310, L300.3900, L500.2500 ####[facility] [address] [place], [address] Neutrophils/100 WBC (Bld) 51.6 % Normal 47-70 [facility] Comment on above: Performed By: #### L 100.0100, L501.4021, L300.4310, L300.3900, L500.2500 ####[facility] [address] [place], [address] Nucleated RBC (Bld) [#/Vol] 0 10*3/uL Normal 0-5 [facility] Comment on above: Performed By: #### L 100.0100, L501.4021, L300.4310, L300.3900, L500.2500 ####[facility] [address] [place], [address] Platelet mean volume (Bld) [Entitic vol] 10.0 fL Normal 6.2-12.0 [facility] Comment on above: Performed By: #### L 100.0100, L501.4021, L300.4310, L300.3900, L500.2500 ####[facility] [address] [place], [address] Platelets (Bld) [#/Vol] 270 10*3/uL Normal 150-450 [facility] Comment on above: Performed By: #### L 100.0100, L501.4021, L300.4310, L300.3900, L500.2500 ####[facility] [address] [place], [address] RBC (Bld) [#/Vol] 4.10 10*6/uL Low 4.6-6.2 [facility] Comment on above: Performed By: #### L 100.0100, L501.4021, L300.4310, L300.3900, L500.2500 ####[facility] [address] [place], [address] RDW SD 41.2 fl Normal 35.1-43.9 [facility] Comment on above: Performed By: #### L 100.0100, L501.4021, L300.4310, L300.3900, L500.2500 ####[facility] [address] [place], [address] WBC (Bld) [#/Vol] 5.9 10*3/uL Normal 4.4-11.0 [facility] Comment on above: Performed By: #### L 100.0100, L501.4021, L300.4310, L300.3900, L500.2500 ####[facility] [address] [place], [address] Calcium oxalate crystals det ection in urine sediment by light microscopyOrdered By: Diogenes Villalpando on 01-12-2025 Calcium oxalate crystals LM Ql (Urine sed) 1+ /hpf [facility] Echo Complete W/ Contraston 01-12-2025 Echo Complete W/ Contrast Normal [facility] Emergency Department Summary on 01-12-2025 Emergency Department Summary Normal [facility] H AND P Exam - Hospitaliston 01-12-2025 H&P Exam - Hospitalist Normal [facility] Hyaline casts LM.LPF (Urine sed) [#/Area]Ordered By: Diogenes Villalpando on 04-29-2025 Hyaline casts (Urine sed) [#/Area] 0 /[LPF] 0-5 [facility] International normalized rat io (INR) calculationOrdered By: Diogenes Villalpando on 01-12-2025 INR Coag (Bld) [Relative time] 0.9 {INR} [facility] Ketones Test strip Ql (U)Ord ered By: Diogenes Villalpando on 01-12-2025 Ketones Ql (U) Negative Negative [facility] L499.0042on 01-12-2025 Trop T High Sen 38 ng/L High <=22 [facility] Comment on above: Performed By: #### L 499.0042 ####[facility] [address] [place], [address] L499.0043on 01-12-2025 Trop T High Sen 36 ng/L High <=22 [facility] Comment on above: Performed By: #### L 499.0043 ####[facility] [address] [place], [address] L501.4021on 01-12-2025 Trop T High Sen 42 ng/L High <=22 [facility] Comment on above: Performed By: #### L 100.0100, L501.4021, L300.4310, L300.3900, L500.2500 ####[facility] [address] [place], [address] Microscopic analysis of urin e for red blood cells (RBC)Ordered By: Diogenes Villalpando on 01-12-2025 Microscopic analysis of urine for red blood cells (RBC) 0-5 SEEN /hpf 0-5 [facility] Mucus LM Ql (Urine sed)Order ed By: Diogenes Villalpando on 01-12-2025 Mucus Ql (Urine sed) 0 SEEN /hpf [facility] Nitrite Test strip Ql (U)Ord ered By: Diogenes Villalpando on 01-12-2025 Nitrite Ql (U) Negative Negative [facility] Partial Thromboplast Timeon 01-12-2025 aPTT Coag (Bld) [Time] 22.3 s Low 24.1-36.2 [facility] Comment on above: Performed By: #### L 100.0100, L501.4021, L300.4310, L300.3900, L500.2500 ####[facility] [address] [place], [address] Protein Test strip Ql (U)Ord ered By: Diogenes Villalpando on 01-12-2025 Protein Ql (U) 30 mg/dl High Negative [facility] Prothrombin Time w/INRon INR Coag (PPP) [Relative time] 0.9 {INR} Normal [facility] Comment on above: Performed By: #### L 100.0100, L501.4021, L300.4310, L300.3900, L500.2500 ####[facility] [address] [place], [address] PT Coag (PPP) [Time] 12.5 s Normal 11.7-14.9 [facility] Comment on above: Performed By: #### L 100.0100, L501.4021, L300.4310, L300.3900, L500.2500 ####[facility] [address] [place], [address] Prothrombin timeOrdered By: Diogenes Villalpando on 01-12-2025 PT Coag (PPP) [Time] 12.5 s 11.7-14.9 [facility] STROKE Brain/Head without Co nton 01-12-2025 STROKE Brain/Head without Cont Normal [facility] STROKE CTA Head AND Neck W/C onon 01-12-2025 STROKE CTA Head AND Neck W/Con Normal [facility] Squamous epithelial cells de tection in urine sediment by light microscopyOrdered By: Diogenes Villalpando on 01-12-2025 Epithelial cells.squamous LM Ql (Urine sed) 0-5 SEEN /hpf 0-5 [facility] Troponin T.cardiac [Mass/vol ume] in Serum or Plasma by High sensitivity methodOrdered By: Diogenes Villalpando on 01-12-2025 Troponin T.cardiac High sensitivity method [Mass/Vol] 36 ng/L High <22 [facility] Troponin T.cardiac High sensitivity method [Mass/Vol] 38 ng/L High <22 [facility] Troponin T.cardiac High sensitivity method [Mass/Vol] 42 ng/L High <22 [facility] Urinalysis, Completeon 01-12 CA OX CRYSTAL 1+ /hpf Normal [facility] Comment on above: Order Comment: CLEAN CATCH Performed By: #### L 400.0001 ####[facility] [address] [place], [address] RBC 0-5 SEEN Normal 0-5 [facility] Comment on above: Order Comment: CLEAN CATCH Performed By: #### L 400.0001 ####[facility] [address] [place], [address] CAST,HYALINE 0-5 SEEN Normal 0-5 [facility] Comment on above: Order Comment: CLEAN CATCH Performed By: #### L 400.0001 ####[facility] [address] [place], [address] EPI,SQUAMOUS 0-5 SEEN Normal 0-5 [facility] Comment on above: Order Comment: CLEAN CATCH Performed By: #### L 400.0001 ####[facility] [address] [place], [address] WBC 0-5 SEEN Normal 0-5 [facility] Comment on above: Order Comment: CLEAN CATCH Performed By: #### L 400.0001 ####[facility] [address] [place], [address] BACTERIA 0 SEEN Normal None Seen [facility] Comment on above: Order Comment: CLEAN CATCH Performed By: #### L 400.0001 ####[facility] [address] [place], [address] Mucus Ql (Urine sed) 0 SEEN Normal [facility] Comment on above: Order Comment: CLEAN CATCH Performed By: #### L 400.0001 ####[facility] [address] [place], [place], [address] Urine clarityOrdered By: Simeon Villalpando on 01-12-2025 Clarity (U) Clear Clear [facility] Urine color determinationOrd ered By: Diogenes Villalpando on 01-12-2025 Color (U) Yellow Yellow [facility] Urine glucose detectionOrder ed By: Diogenes Villalpando on 01-12-2025 Glucose Ql (U) 1000 mg/dl High Normal [facility] Urine leukocyte esterase det ection by dipstickOrdered By: Diogenes Villalpando on 01-12-2025 Leukocyte esterase Test strip Ql (U) Negative Negative [facility] Urine pHOrdered By: Diogenes Villalpando on 01-12-2025 pH (U) 6.0 [pH] 5.0 - 8.0 [facility] Urine sediment bacteria coun t by microscopy (number/high power field)Ordered By: Diogenes Villalpando on 01-12-2025 Bacteria LM.HPF (Urine sed) [#/Area] 0 /[HPF] None Seen [facility] Urine specific gravity measu rementOrdered By: Diogenes Villalpando on 01-12-2025 Specific gravity (U) [Rel density] 1.015 1.002-1.030 [facility] Urine urobilinogen measureme ntOrdered By: Diogenes Villalpando on 01-12-2025 Urobilinogen Ql (U) Normal mg/dl Normal [facility] White blood cell countOrdere d By: Diogenes Villalpando on 01-12-2025 White blood cell count 0-5 SEEN /hpf 0-5 [facility] Post Void Residual Bladderon 12-31-2024 Post Void Residual Bladder Normal [facility] Urine Cultureon 12-31-2024 URC Culture exhibits no growth. Normal [facility] Comment on above: Performed By: #### M 100.2200, L400.0001, L500.2500 ####[facility] [address] [facility] [address] [place], [place], [id number] Anion gap in Serum or Plasma Ordered By: Briseyda Sinclair on 12-30-2024 Anion gap [Moles/Vol] 11 mmol/L 5-15 [facility] BUN/creatinine ratioOrdered By: Briseyda Sinclair on 12-30-2024 Urea nitrogen/Creatinine [Mass ratio] 17.3 mg/mg 10- [facility] Basic Metabolic Profile (BMP )on 12-30-2024 BUN/CRE 17.3 RATIO Normal - [facility] Comment on above: Performed By: #### M 100.2200, L400.0001, L500.2500 ####[facility] [address] [place], [address] GAP 11 Normal 5-15 [facility] Comment on above: Performed By: #### M 100.2200, L400.0001, L500.2500 ####[facility] [address] [place], [address] Bilirubin Test strip Ql (U)O rdered By: Briseyda Sinclair on 12-30-2024 Bilirubin Ql (U) Negative Negative [facility] Carbon dioxide, total [Moles /volume] in Central venous bloodOrdered By: Briseyda Sinclair on 12-30-2024 CO2 [Moles/Vol] 25.5 mmol/L Normal 21.0-32.0 [facility] Comment on above: Performed By: #### M 100.2200, L400.0001, L500.2500 ####[facility] [address] [place], [address] Chloride assayOrdered By: Marcie Sinclair on 12-30-2024 Chloride [Moles/Vol] 106 mmol/L Normal 98-108 [facility] Comment on above: Performed By: #### M 100.2200, L400.0001, L500.2500 ####[facility] [address] [place], [address] Epithelial cells.squamous LM Ql (Urine sed)Ordered By: Briseyda Sinclair on 12-30-2024 Epithelial cells.squamous LM.HPF (Urine sed) [#/Area] 0 /[HPF] 0-5 [facility] GFR/1.73 sq M.predicted anjelica g non-blacks MDRD (S/P/Bld) [Vol rate/Area]Ordered By: Briseyda Sinclair on 12-30-2024 Estimated GFR (MDRD) Non-Af Amer 57 Low >60 [facility] Comment on above: mL/min/1.73m2 CKD-EP I Creatinine Equation (2020) Glomerular filtration rate ( GFR) estimation/1.73 sq m using serum, plasma, or whole bOrdered By: Briseyda Sinclair on 12-30-2024 GFR/1.73 sq M.predicted among non-blacks MDRD (S/P/Bld) [Vol rate/Area] 57 mL/min/{1.73_m2} Low >60 [facility] Comment on above: mL/min/1.73m2 CKD-EP I Creatinine Equation (2020) Result Comment: mL/m in/1.73m2 CKD-EPI Creatinine Equation (2020) Performed By: #### M 100.2200, L400.0001, L500.2500 ####[facility] [address] [place], [address] Glucose Ql (U)Ordered By: Marcie Sinclair on 12-30-2024 Glucose (U) [Mass/Vol] 1000 mg/dL High Normal [facility] Ketones Test strip Ql (U)Ord ered By: Briseyda Sinclair on 12-30-2024 Ketones Ql (U) Negative Negative [facility] Microscopic analysis of urin e for red blood cells (RBC)Ordered By: Briseyda Sinclair on 12-30-2024 Microscopic analysis of urine for red blood cells (RBC) 0 SEEN /hpf 0-5 [facility] Urine RBC 0 SEEN /hpf 0-5 [facility] Mucus LM Ql (Urine sed)Order ed By: Briseyda Sinclair on 12-30-2024 Mucus Ql (Urine sed) 0 SEEN /hpf [facility] Nitrite Test strip Ql (U)Ord ered By: Briseyda Sinclair on 12-30-2024 Nitrite Ql (U) Negative Negative [facility] Potassium measurement (mass/ volume)Ordered By: Briseyda Sinclair on 12-30-2024 Potassium [Moles/Vol] 4.3 mmol/L Normal 3.3-5.1 [facility] Comment on above: Performed By: #### M 100.2200, L400.0001, L500.2500 ####[facility] [address] [place], [address] Potassium (Unsp spec) [Mass/Vol] 4.3 mmol/L 3.3-5.1 [facility] Protein Test strip Ql (U)Ord ered By: Briseyda Sinclair on 12-30-2024 Protein Ql (U) 15 mg/dl High Negative [facility] Serum creatinine measurement (mass/volume)Ordered By: Briseyda Sinclair on 12-30-2024 Creatinine [Mass/Vol] 1.31 mg/dL High 0.70-1.20 [facility] Comment on above: Performed By: #### M 100.2200, L400.0001, L500.2500 ####[facility] [address] [place], [address] Serum glucose measurement (m ass/volume)Ordered By: Briseyda Sinclair on 12-30-2024 Glucose [Mass/Vol] 159 mg/dL High 70-99 [facility] Comment on above: Performed By: #### M 100.2200, L400.0001, L500.2500 ####[facility] [address] [place], [address] Serum or plasma calcium makeda urement (mass/volume)Ordered By: Briseyda Sinclair on 12-30-2024 Calcium [Mass/Vol] 9.7 mg/dL Normal 7.6-11.0 [facility] Comment on above: Performed By: #### M 100.2200, L400.0001, L500.2500 ####[facility] [address] [place], [address] Serum or plasma urea nitroge n measurement (mass/volume)Ordered By: Briseyda Sinclair on 12-30-2024 Urea nitrogen [Mass/Vol] 23 mg/dL High 4-19 [facility] Comment on above: Performed By: #### M 100.2200, L400.0001, L500.2500 ####[facility] [address] [place], [address] Sodium levelOrdered By: Amita Sinclair on 12-30-2024 Sodium [Moles/Vol] 143 mmol/L Normal 133-145 [facility] Comment on above: Performed By: #### M 100.2200, L400.0001, L500.2500 ####[facility] [address] [place], [address] Squamous epithelial cells de tection in urine sediment by light microscopyOrdered By: Briseyda Sinclair on 12-30-2024 Epithelial cells.squamous LM Ql (Urine sed) 0 SEEN /hpf 0-5 [facility] Urinalysis, Completeon 12-30 BACTERIA 0 SEEN Normal None Seen [facility] Comment on above: Order Comment: COLLE CTOR TO SPECIFY Performed By: #### M 100.2200, L400.0001, L500.2500 ####[facility] [address] [place], [address] EPI,SQUAMOUS 0 SEEN Normal 0-5 [facility] Comment on above: Order Comment: COLLE CTOR TO SPECIFY Performed By: #### M 100.2200, L400.0001, L500.2500 ####[facility] [address] [place], [address] Mucus Ql (Urine sed) 0 SEEN Normal [facility] Comment on above: Order Comment: COLLE CTOR TO SPECIFY Performed By: #### M 100.2200, L400.0001, L500.2500 ####[facility] [address] [place], [address] RBC 0 SEEN Normal 0-5 [facility] Comment on above: Order Comment: COLLE CTOR TO SPECIFY Performed By: #### M 100.2200, L400.0001, L500.2500 ####[facility] [address] [place], [place], [address] WBC 0 SEEN Normal 0-5 [facility] Comment on above: Order Comment: COLLE CTOR TO SPECIFY Performed By: #### M 100.2200, L400.0001, L500.2500 ####[facility] [address] [place], [address] Urine blood detectionOrdered By: Briseyda Sinclair on 12-30-2024 Urine Occult Blood Negative Negative [facility] Urine clarityOrdered By: Isadora Sinclair on 12-30-2024 Clarity (U) Clear Clear [facility] Urine color determinationOrd ered By: Briseyda Sinclair on 12-30-2024 Color (U) Yellow Yellow [facility] Urine cultureOrdered By: Isadora Sinclair on 12-30-2024 Bacteria identified Cx Nom (U) Culture exhibits no growth. [facility] Urine glucose detectionOrder ed By: Briseyda Sinclair on 12-30-2024 Glucose Ql (U) 1000 mg/dl High Normal [facility] Urine leukocyte esterase det ection by dipstickOrdered By: Briseyda Sinclair on 12-30-2024 Leukocyte esterase Test strip Ql (U) Negative Negative [facility] Urine pHOrdered By: Briseyda uriarte on 12-30-2024 pH (U) 7.0 [pH] 5.0 - 8.0 [facility] Urine sediment bacteria coun t by microscopy (number/high power field)Ordered By: Briseyda Sinclair on 12-30-2024 Bacteria LM.HPF (Urine sed) [#/Area] 0 /[HPF] None Seen [facility] Urine specific gravity measu rementOrdered By: Briseyda Sinclair on 12-30-2024 Specific gravity (U) [Rel density] 1.015 1.002-1.030 [facility] Urine urobilinogen measureme ntOrdered By: Briseyda Sinclair on 12-30-2024 Urobilinogen Ql (U) Normal mg/dl Normal [facility] Urobilinogen Ql (U)Ordered B y: Briseyda Sinclair on 12-30-2024 Urine Urobilinogen Normal mg/dl Normal [facility] White blood cell countOrdere d By: Briseyda Sinclair on 12-30-2024 Urine WBC 0 SEEN /hpf 0-5 [facility] White blood cell count 0 SEEN /hpf 0-5 [facility] Free T3on 11-18-2024 Free T3 [Mass/Vol] 2.7 pg/mL Normal 2.18-3.98 [facility] Comment on above: Performed By: #### L 506.0400, L501.9520, L501.61754 ####[facility] [address] [place], [place], [id number] Free F5Cnjlkks By: Briseyda albert on 11-18-2024 Free T3 [Mass/Vol] 2.7 pg/mL 2.18-3.98 [facility] Free Triiodothyronine (T3) pg/dL 2.7 pg/mL 2.18-3.98 [facility] T4 Free Directon 11-18-2024 T4 FREE DIRECT 1.10 ng/dL Normal 0.76-1.46 [facility] Comment on above: Performed By: #### L 506.0400, L501.9520, L501.41313 ####[facility] [address] [place], [place], [id number] T4 freeOrdered By: Briseyda albert on 11-18-2024 Free T4 [Mass/Vol] 1.10 ng/dL 0.76-1.46 [facility] TSH DL <= 0.005 mIU/L QnOrde red By: Briseyda Sinclair on 11-18-2024 Thyroid Stimulating Hormone (TSH) 3.230 uIU/mL 0.300-4.200 [facility] TSH Qn 3.230 uIU/mL 0.300-4.200 [facility] Thyroid Stim Hormone (TSH)on 11-18-2024 TSH 3.230 uIU/mL Normal 0.300-4.200 [facility] Comment on above: Performed By: #### L 506.0400, L501.9520, L501.38521 ####[facility] [address] [place], [address] Cardiology Visit Reporton Cardiology Visit Report Normal [facility] PT D/C Summary (1)on 025 PT D/C Summary (1) Normal [facility] Orthopedic Visit Reporton Orthopedic Visit Report Normal [facility] Inital Evaluation (1) - PTon 08-31-2024 Inital Evaluation (1) - PT Normal [facility] Spine Lumbar (Routine)on Spine Lumbar (Routine) [facility] L/S Spine Min 4 Viewson L/S Spine Min 4 Views Normal [facility] Orthopedic Visit Reporton Orthopedic Visit Report Normal [facility] 52-MT-Moytrnz DOrdered By: Hammad Sinclair on 08-11-2024 Vitamin D 25-Hydroxy 36.7 ng/mL [facility] Comment on above: Vitamin D 25(OH) Sta tus Range Deficiency <20 ng/mL (50nmol/L) Insufficiency 20 - 30 ng/mL (50 - 75 nmol/L) Sufficiency 30 - 100 ng/mL (75 - 250 nmol/L) Toxicity >100 ng/mL (>250 nmol/L) Absolute neutrophil countOrd ered By: Briseyda Sinclair on 08-11-2024 Neutrophils (Bld) [#/Vol] 2.6 10*3/uL 2.0-7.7 [facility] Albumin to globulin ratioOrd ered By: Briseyda Sinclair on 08-11-2024 Albumin/Globulin [Mass ratio] 1.2 {ratio} 0.9-2.4 [facility] Basophil percentageOrdered B y: Briseyda Sinclair on 08-11-2024 Basophils/100 WBC (Bld) 0.5 % 0-1 [facility] Bilirubin directOrdered By: Dalila Chaves on 08-11-2024 Bilirubin.direct [Mass/Vol] 0.10 mg/dL 0.00-0.30 [facility] Bilirubin, totalOrdered By: Dalila Chaves on 08-11-2024 Bilirubin [Mass/Vol] 0.30 mg/dL 0.20-1.00 [facility] Comment on above: For patients on eltr ombopag therapy, use of Dimension [place] TBIL is not recommended. Blood urea nitrogen (BUN)/cr eatinine ratioOrdered By: Briseyda Sinclair on 08-11-2024 Urea nitrogen/Creatinine [Mass ratio] 22.3 mg/mg High 10-20 [facility] CBC W/Diff, Automatedon 11- Absolute Lymph 2.07 X10 3/uL Normal 0.83-4.51 [facility] Comment on above: Performed By: #### L 501.5200, L100.0100, L501.9985, L500.4050, L500.4100, L506.1000, L501.9520 ####[facility] [address] [place], [address] Absolute Neut 2.6 X10 3/uL Normal 2.0-7.7 [facility] Comment on above: Performed By: #### L 501.5200, L100.0100, L501.9985, L500.4050, L500.4100, L506.1000, L501.9520 ####[facility] [address] [place], [address] Basophils/100 WBC (Bld) 0.5 % Normal 0-1 [facility] Comment on above: Performed By: #### L 501.5200, L100.0100, L501.9985, L500.4050, L500.4100, L506.1000, L501.9520 ####[facility] [address] [place], [address] Eosinophils/100 WBC (Bld) 8.1 % High 0-5 [facility] Comment on above: Performed By: #### L 501.5200, L100.0100, L501.9985, L500.4050, L500.4100, L506.1000, L501.9520 ####[facility] [address] [place], [address] Erythrocyte distribution width (RBC) [Ratio] 12.3 % Normal 11.6-14.6 [facility] Comment on above: Performed By: #### L 501.5200, L100.0100, L501.9985, L500.4050, L500.4100, L506.1000, L501.9520 ####[facility] [address] [place], [address] Hematocrit (Bld) [Volume fraction] 37.3 % Low 40-54 [facility] Comment on above: Performed By: #### L 501.5200, L100.0100, L501.9985, L500.4050, L500.4100, L506.1000, L501.9520 ####[facility] [address] [place], [address] Hemoglobin (Bld) [Mass/Vol] 12.7 g/dL Low 13.0-16.5 [facility] Comment on above: Performed By: #### L 501.5200, L100.0100, L501.9985, L500.4050, L500.4100, L506.1000, L501.9520 ####[facility] [address] [place], [address] IG% 0.200 Normal 0.0-0.9 [facility] Comment on above: Result Comment: IG% - Immature Granulocytes (promyelocytes, myelocytes andmetamyelocytes) > 1% indicates that a LEFT SHIFT is Present. Performed By: #### L 501.5200, L100.0100, L501.9985, L500.4050, L500.4100, L506.1000, L501.9520 ####[facility] [address] [place], [address] Lymphocytes/100 WBC (Bld) 35.6 % Normal 19-41 [facility] Comment on above: Performed By: #### L 501.5200, L100.0100, L501.9985, L500.4050, L500.4100, L506.1000, L501.9520 ####[facility] [address] [place], [address] MCH (RBC) [Entitic mass] 31.1 pg Normal 27.0-32.0 [facility] Comment on above: Performed By: #### L 501.5200, L100.0100, L501.9985, L500.4050, L500.4100, L506.1000, L501.9520 ####[facility] [address] [place], [address] MCHC (RBC) [Mass/Vol] 34.0 g/dL Normal 32-36 [facility] Comment on above: Performed By: #### L 501.5200, L100.0100, L501.9985, L500.4050, L500.4100, L506.1000, L501.9520 ####[facility] [address] [place], [address] MCV (RBC) [Entitic vol] 91.4 fL Normal 80-94 [facility] Comment on above: Performed By: #### L 501.5200, L100.0100, L501.9985, L500.4050, L500.4100, L506.1000, L501.9520 ####[facility] [address] [place], [address] Monocytes/100 WBC (Bld) 11.2 % High 0-10 [facility] Comment on above: Performed By: #### L 501.5200, L100.0100, L501.9985, L500.4050, L500.4100, L506.1000, L501.9520 ####[facility] [address] [place], [address] Neutrophils/100 WBC (Bld) 44.4 % Low 47-70 [facility] Comment on above: Performed By: #### L 501.5200, L100.0100, L501.9985, L500.4050, L500.4100, L506.1000, L501.9520 ####[facility] [address] [place], [address] Nucleated RBC (Bld) [#/Vol] 0 10*3/uL Normal 0-5 [facility] Comment on above: Performed By: #### L 501.5200, L100.0100, L501.9985, L500.4050, L500.4100, L506.1000, L501.9520 ####[facility] [address] [place], [address] Platelet mean volume (Bld) [Entitic vol] 10.1 fL Normal 6.2-12.0 [facility] Comment on above: Performed By: #### L 501.5200, L100.0100, L501.9985, L500.4050, L500.4100, L506.1000, L501.9520 ####[facility] [address] [place], [address] Platelets (Bld) [#/Vol] 240 10*3/uL Normal 150-450 [facility] Comment on above: Performed By: #### L 501.5200, L100.0100, L501.9985, L500.4050, L500.4100, L506.1000, L501.9520 ####[facility] [address] [place], [address] RBC (Bld) [#/Vol] 4.08 10*6/uL Low 4.6-6.2 [facility] Comment on above: Performed By: #### L 501.5200, L100.0100, L501.9985, L500.4050, L500.4100, L506.1000, L501.9520 ####[facility] [address] [place], [address] RDW SD 41.1 fl Normal 35.1-43.9 [facility] Comment on above: Performed By: #### L 501.5200, L100.0100, L501.9985, L500.4050, L500.4100, L506.1000, L501.9520 ####[facility] [address] [place], [address] WBC (Bld) [#/Vol] 5.8 10*3/uL Normal 4.4-11.0 [facility] Comment on above: Performed By: #### L 501.5200, L100.0100, L501.9985, L500.4050, L500.4100, L506.1000, L501.9520 ####[facility] [address] [place], [place], [address] Carbon dioxide measurementOr dered By: Briseyda Sinclair on 08-11-2024 CO2 [Moles/Vol] 25.0 mmol/L 21.0-32.0 [facility] Chloride measurementOrdered By: Briseyda Sinclair on 08-11-2024 Chloride [Moles/Vol] 108 mmol/L High 98-107 [facility] Comprehensive Metabolic Prof ilon 08-11-2024 Albumin/Globulin [Mass ratio] 1.2 {ratio} Normal 0.9-2.4 [facility] Comment on above: Performed By: #### L 501.5200, L100.0100, L501.9985, L500.4050, L500.4100, L506.1000, L501.9520 ####[facility] [address] [place], [place], [address] ALT [Catalytic activity/Vol] 29 U/L Normal 16-61 [facility] Comment on above: Performed By: #### L 501.5200, L100.0100, L501.9985, L500.4050, L500.4100, L506.1000, L501.9520 ####[facility] [address] [place], [address] AST [Catalytic activity/Vol] 15 U/L Normal 15-37 [facility] Comment on above: Performed By: #### L 501.5200, L100.0100, L501.9985, L500.4050, L500.4100, L506.1000, L501.9520 ####[facility] [address] [place], [address] BUN/CRE 22.3 RATIO High 10-20 [facility] Comment on above: Performed By: #### L 501.5200, L100.0100, L501.9985, L500.4050, L500.4100, L506.1000, L501.9520 ####[facility] [address] [place], [address] CA,Total 9.3 mg/dL Normal 8.5-10.1 [facility] Comment on above: Performed By: #### L 501.5200, L100.0100, L501.9985, L500.4050, L500.4100, L506.1000, L501.9520 ####[facility] [address] [place], [address] Chloride [Moles/Vol] 108 mmol/L High 98-107 [facility] Comment on above: Performed By: #### L 501.5200, L100.0100, L501.9985, L500.4050, L500.4100, L506.1000, L501.9520 ####[facility] [address] [place], [address] CO2 [Moles/Vol] 25.0 mmol/L Normal 21.0-32.0 [facility] Comment on above: Performed By: #### L 501.5200, L100.0100, L501.9985, L500.4050, L500.4100, L506.1000, L501.9520 ####[facility] [address] [place], [place], [address] Creatinine [Mass/Vol] 1.30 mg/dL Normal 0.70-1.30 [facility] Comment on above: Result Comment: The validity of the calculated GFR GFRAA in patients over70 years has not been determined. Clinical correlation isessential. Performed By: #### L 501.5200, L100.0100, L501.9985, L500.4050, L500.4100, L506.1000, L501.9520 ####[facility] [address] [place], [address] EST GFR - AA 69 mL/min Normal >60 [facility] Comment on above: Result Comment: Afri can Danish GFR Calc Performed By: #### L 501.5200, L100.0100, L501.9985, L500.4050, L500.4100, L506.1000, L501.9520 ####[facility] [address] [place], [place], [id number] GAP 6 Normal 5-15 [facility] Comment on above: Performed By: #### L 501.5200, L100.0100, L501.9985, L500.4050, L500.4100, L506.1000, L501.9520 ####[facility] [address] [place], [place], [address] GFR/1.73 sq M.predicted among non-blacks MDRD (S/P/Bld) [Vol rate/Area] 57 mL/min/{1.73_m2} Low >60 [facility] Comment on above: Result Comment: Non- GFR Calc Performed By: #### L 501.5200, L100.0100, L501.9985, L500.4050, L500.4100, L506.1000, L501.9520 ####[facility] [address] [place], [address] Globulin (S) [Mass/Vol] 3.2 g/dL Normal 2.2-4.2 [facility] Comment on above: Performed By: #### L 501.5200, L100.0100, L501.9985, L500.4050, L500.4100, L506.1000, L501.9520 ####[facility] [address] [place], [address] Glucose [Mass/Vol] 208 mg/dL High 74-106 [facility] Comment on above: Result Comment: Gluc ose result greater than or equal to 200 mg/dLsuggests DIABETES MELLITUS per A.D.A. criteria. Performed By: #### L 501.5200, L100.0100, L501.9985, L500.4050, L500.4100, L506.1000, L501.9520 ####[facility] [address] [place], [address] Potassium [Moles/Vol] 4.2 mmol/L Normal 3.5-5.1 [facility] Comment on above: Performed By: #### L 501.5200, L100.0100, L501.9985, L500.4050, L500.4100, L506.1000, L501.9520 ####[facility] [address] [place], [address] Sodium [Moles/Vol] 139 mmol/L Normal 136-145 [facility] Comment on above: Performed By: #### L 501.5200, L100.0100, L501.9985, L500.4050, L500.4100, L506.1000, L501.9520 ####[facility] [address] [place], [address] T PROT 6.9 g/dL Normal 6.4-8.2 [facility] Comment on above: Performed By: #### L 501.5200, L100.0100, L501.9985, L500.4050, L500.4100, L506.1000, L501.9520 ####[facility] [address] [place], [place], [address] Urea nitrogen [Mass/Vol] 29 mg/dL High 7-18 [facility] Comment on above: Performed By: #### L 501.5200, L100.0100, L501.9985, L500.4050, L500.4100, L506.1000, L501.9520 ####[facility] [address] [place], [address] Direct serum free thyroxine (FT4) measurementOrdered By: Briseyda Sinclair on 08-11-2024 Free T4 [Mass/Vol] 0.84 ng/dL 0.76-1.46 [facility] Eosinophil percentageOrdered By: Briseyda Sinclair on 08-11-2024 Eosinophils/100 WBC (Bld) 8.1 % High 0-5 [facility] Erythrocyte distribution wid th ratioOrdered By: Briseyda Sinclair on 08-11-2024 Erythrocyte distribution width (RBC) [Ratio] 12.3 % 11.6-14.6 [facility] Erythrocyte distribution wid th standard deviationOrdered By: Briseyda Sinclair on 08-11-2024 Erythrocyte distribution width (RBC) [Entitic vol] 41.1 fL 35.1-43.9 [facility] Estimated glomerular filtrat ion rate (GFR) AmericanOrdered By: Briseyda Sinclair on 08-11-2024 Estimated GFR (MDRD) Amer 69 mL/min >60 [facility] System Comment on above: GFR Calc Free T3on 08-11-2024 Free T3 [Mass/Vol] 2.2 pg/mL Normal 2.18-3.98 [facility] Comment on above: Performed By: #### L 506.0400, L501.76609 ####[facility] [address] [place], [place], [id number] Free T5Ujqhvao By: Briseyda albert on 08-11-2024 Free Triiodothyronine (T3) pg/dL 2.2 pg/mL 2.18-3.98 [facility] Glomerular filtration rate ( GFR) estimationOrdered By: Briseyda Sinclair on 08-11-2024 Estimated GFR (MDRD) Non-Af Amer 57 mL/min Low >60 [facility] Comment on above: Non- GFR Calc Glucose measurementOrdered B y: Briseyda Sinclair on 08-11-2024 Glucose [Mass/Vol] 208 mg/dL High 74-106 [facility] Comment on above: Glucose result great er than or equal to 200 mg/dLsuggests DIABETES MELLITUS per A.D.A. criteria. Hematocrit Auto (Bld) [Volum e fraction]Ordered By: rBiseyda Sinclair on 08-11-2024 Hematocrit (Bld) [Volume fraction] 37.3 % Low 40-54 [facility] Hemoglobin A1con 08-11-2024 HbA1c (Bld) [Mass fraction] 10.7 % High 3.8-5.6 [facility] Comment on above: Result Comment: Norm al < 5.7 % Prediabetic 5.7 - 6.4 % Diabetic >or= 6.5 % Please note range changes. Performed By: #### L 501.5200, L100.0100, L501.9985, L500.4050, L500.4100, L506.1000, L501.9520 ####[facility] [address] [place], [place], [address] Hemoglobin A1c percentageOrd ered By: Briseyda Sinclair on 08-11-2024 HbA1c (Bld) [Mass fraction] 10.7 % High 3.8-5.6 [facility] Comment on above: Normal < 5.7 % Predi abetic 5.7 - 6.4 % Diabetic >or= 6.5 % Please note range changes. Hemoglobin measurementOrdere d By: Briseyda Sinclair on 08-11-2024 Hemoglobin (Bld) [Mass/Vol] 12.7 g/dL Low 13.0-16.5 [facility] High density lipoprotein (HD L) measurementOrdered By: Dalila Chaves on 08-11-2024 Cholesterol in HDL [Mass/Vol] 41 mg/dL >40 [facility] Comment on above: The drugs N-Acetylcy steine and Metamizole may falsely depress this assay. Reference Range HDL <40 mg/dL Low HDL Cholesterol HDL >or= 60 mg/dL High HDL Cholesterol Immature granulocytes/100 WB C Auto (Bld)Ordered By: Briseyda Sinclair on 08-11-2024 Immature granulocytes/100 WBC (Bld) 0.200 % 0.0-0.9 [facility] Comment on above: IG% - Immature Granu locytes (promyelocytes, myelocytes and metamyelocytes) > 1% indicates that a LEFT SHIFT is Present. Laboratory - Chemistry and C hemistry - challengeOrdered By: Dalila Chaves on 08-11-2024 AST [Catalytic activity/Vol] 12 U/L Low 15-37 [facility] Lipid Profileon 08-11-2024 Cholesterol [Mass/Vol] 162 mg/dL Normal 200 [facility] Comment on above: Result Comment: <200 mg/dL Desirable 200-240 mg/dL Borderline >240 mg/dL High Risk Performed By: #### L 500.3400, L500.4100 ####[facility] [address] [place], [address] Cholesterol [Mass/Vol] 163 mg/dL Normal 200 [facility] Comment on above: Result Comment: <200 mg/dL Desirable 200-240 mg/dL Borderline >240 mg/dL High Risk Performed By: #### L 501.5200, L100.0100, L501.9985, L500.4050, L500.4100, L506.1000, L501.9520 ####[facility] [address] [place], [address] Cholesterol in HDL [Mass/Vol] 41 mg/dL Normal [facility] Comment on above: Result Comment: The drugs N-Acetylcysteine and Metamizole may falselydepress this assay. Reference Range HDL <40 mg/dL Low HDL Cholesterol HDL >or= 60 mg/dL High HDL Cholesterol Performed By: #### L 500.3400, L500.4100 ####[facility] [address] [place], [address] Performed By: #### L 501.5200, L100.0100, L501.9985, L500.4050, L500.4100, L506.1000, L501.9520 ####[facility] [address] [place], [address] Cholesterol in LDL [Mass/Vol] 62 mg/dL Normal 0-130 [facility] Comment on above: Performed By: #### L 500.3400, L500.4100 ####[facility] [address] [place], [address] Cholesterol in LDL [Mass/Vol] 64 mg/dL Normal 0-130 [facility] Comment on above: Performed By: #### L 501.5200, L100.0100, L501.9985, L500.4050, L500.4100, L506.1000, L501.9520 ####[facility] [address] [place], [address] Cholesterol in VLDL [Mass/Vol] 59 mg/dL High [address] [place] [address] Comment on above: Performed By: #### L 500.3400, L500.4100 ####[facility] [address] [place], [address] Cholesterol in VLDL [Mass/Vol] 58 mg/dL High [address] [place] [address] Comment on above: Performed By: #### L 501.5200, L100.0100, L501.9985, L500.4050, L500.4100, L506.1000, L501.9520 ####[facility] [address] [place], [address] Triglyceride [Mass/Vol] 297 mg/dL High [facility] Comment on above: Result Comment: The drugs N-Acetylcysteine and Metamizole may falselydepress this assay.Serum Triglycerides Reference Interval Normal <150 mg/dL Borderline high 150 - 199 mg/dL High 200 - 499 mg/dL Very High > or = 500 mg/dL Performed By: #### L 500.3400, L500.4100 ####[facility] [address] [place], [address] Triglyceride [Mass/Vol] 291 mg/dL High [facility] Comment on above: Result Comment: The drugs N-Acetylcysteine and Metamizole may falselydepress this assay.Serum Triglycerides Reference Interval Normal <150 mg/dL Borderline high 150 - 199 mg/dL High 200 - 499 mg/dL Very High > or = 500 mg/dL Performed By: #### L 501.5200, L100.0100, L501.9985, L500.4050, L500.4100, L506.1000, L501.9520 ####[facility] [address] [place], [address] Liver Profileon 08-11-2024 Albumin [Mass/Vol] 3.7 g/dL Normal 3.2-5.0 [facility] Comment on above: Performed By: #### L 500.3400, L500.4100 ####[facility] [address] [place], [address] Performed By: #### L 501.5200, L100.0100, L501.9985, L500.4050, L500.4100, L506.1000, L501.9520 ####[facility] [address] [place], [address] ALK P 65 U/L Normal 45-117 [facility] Comment on above: Performed By: #### L 500.3400, L500.4100 ####[facility] [address] [place], [address] Performed By: #### L 501.5200, L100.0100, L501.9985, L500.4050, L500.4100, L506.1000, L501.9520 ####[facility] [address] [place], [address] ALT [Catalytic activity/Vol] 31 U/L Normal 16-61 [facility] Comment on above: Performed By: #### L 500.3400, L500.4100 ####[facility] [address] [place], [address] AST [Catalytic activity/Vol] 12 U/L Low 15-37 [facility] Comment on above: Performed By: #### L 500.3400, L500.4100 ####[facility] [address] [place], [address] Bilirubin [Mass/Vol] 0.30 mg/dL Normal 0.20-1.00 [facility] Comment on above: Result Comment: For patients on eltrombopag therapy, use of Dimension [place] TBIL is not recommended. Performed By: #### L 500.3400, L500.4100 ####[facility] [address] [place], [address] Performed By: #### L 501.5200, L100.0100, L501.9985, L500.4050, L500.4100, L506.1000, L501.9520 ####[facility] [address] [place], [address] Bilirubin.direct [Mass/Vol] 0.10 mg/dL Normal 0.00-0.30 [facility] Comment on above: Performed By: #### L 500.3400, L500.4100 ####[facility] [address] [place], [address] Globulin (S) [Mass/Vol] 3.3 g/dL Normal 2.2-4.2 [facility] Comment on above: Performed By: #### L 500.3400, L500.4100 ####[facility] [address] [place], [place], [id number] T PROT 7.0 g/dL Normal 6.4-8.2 [facility] Comment on above: Performed By: #### L 500.3400, L500.4100 ####[facility] [address] [place], [place], [id number] Low density lipoprotein (LDL ) cholesterol measurementOrdered By: Dalila Chaves on 08-11-2024 Cholesterol in LDL [Mass/Vol] 62 mg/dL 0-130 [facility] Lymphocytes Auto (Unsp spec) [#/Vol]Ordered By: Briseyda Sinclair on 08-11-2024 Lymphocytes (Bld) [#/Vol] 2.07 10*3/uL 0.83-4.51 [facility] Lymphocytes/100 WBC Auto (Un sp spec)Ordered By: Briseyda Sinclair on 08-11-2024 Lymphocytes/100 WBC (Bld) 35.6 % 19-41 [facility] MCV (mean corpuscular volume ) determinationOrdered By: Briseyda Sinclair on 08-11-2024 MCV (RBC) [Entitic vol] 91.4 fL 80-94 [facility] Magnesiumon 08-11-2024 Magnesium [Mass/Vol] 1.2 mg/dL Low 1.6-2.6 [facility] Comment on above: Performed By: #### L 501.5200, L100.0100, L501.9985, L500.4050, L500.4100, L506.1000, L501.9520 ####[facility] [address] [place], [place], [id number] Magnesium measurementOrdered By: Briseyda Sinclair on 08-11-2024 Magnesium [Mass/Vol] 1.2 mg/dL Low 1.6-2.6 [facility] Mean corpuscular hemoglobin (MCH) determinationOrdered By: Briseyda Sinclair on 08-11-2024 MCH (RBC) [Entitic mass] 31.1 pg 27.0-32.0 [facility] Mean corpuscular hemoglobin concentration (MCHC) determinationOrdered By: Briseyda Sinclair on 08-11-2024 MCHC (RBC) [Mass/Vol] 34.0 g/dL 32-36 [facility] Mean platelet volume determi nationOrdered By: Briseyda Sinclair on 08-11-2024 Platelet mean volume (Bld) [Entitic vol] 10.1 fL 6.2-12.0 [facility] Monocyte percentageOrdered B y: Briseyda Sinclair on 08-11-2024 Monocytes/100 WBC (Bld) 11.2 % High 0-10 [facility] Neutrophil percentageOrdered By: Briseyda Sinclair on 08-11-2024 Neutrophils/100 WBC (Bld) 44.4 % Low 47-70 [facility] Nucleated red blood cell per centageOrdered By: Briseyda Sinclair on 08-11-2024 Nucleated RBC/100 WBC (Bld) [Ratio] 0 % 0-5 [facility] Platelet countOrdered By: Marcie Sinclair on 08-11-2024 Platelets (Bld) [#/Vol] 240 10*3/uL 150-450 [facility] Potassium measurementOrdered By: Briseyda Sinclair on 08-11-2024 Potassium [Moles/Vol] 4.2 mmol/L 3.5-5.1 [facility] RBC Auto (Bld) [#/Vol]Ordere d By: Briseyda Sinclair on 08-11-2024 RBC (Bld) [#/Vol] 4.08 10*6/uL Low 4.6-6.2 [facility] Serum anion gap measurementO rdered By: Briseyda Sinclair on 08-11-2024 Anion gap [Moles/Vol] 6 mmol/L 5-15 [facility] Serum globulin measurementOr dered By: Dalila Chaves on 08-11-2024 Globulin (S) [Mass/Vol] 3.3 g/dL 2.2-4.2 [facility] Serum or plasma alanine denis otransferase (ALT) measurementOrdered By: Dalila Chaves on 08-11-2024 ALT [Catalytic activity/Vol] 31 U/L 16-61 [facility] Serum or plasma albumin makeda urement (mass/volume)Ordered By: Dalila Chaves on 08-11-2024 Albumin [Mass/Vol] 3.7 g/dL 3.2-5.0 [facility] Serum or plasma alkaline neisha sphatase measurementOrdered By: Dalila Chaves on 08-11-2024 ALP [Catalytic activity/Vol] 65 U/L 45-117 [facility] Serum or plasma calcium makeda urement (mass/volume)Ordered By: Briseyda Sinclair on 08-11-2024 Calcium [Mass/Vol] 9.3 mg/dL 8.5-10.1 [facility] Serum or plasma cholesterol measurement (mass/volume)Ordered By: Dalila Chaves on 08-11-2024 Cholesterol [Mass/Vol] 162 mg/dL <200 [facility] Comment on above: <200 mg/dL Desirable 200-240 mg/dL Borderline >240 mg/dL High Risk Serum or plasma creatinine m easurement (mass/volume)Ordered By: Briseyda Sinclair on 08-11-2024 Creatinine [Mass/Vol] 1.30 mg/dL 0.70-1.30 [facility] Comment on above: The validity of the calculated GFR & GFRAA in patients over 70 years has not been determined. Clinical correlation is essential. Serum or plasma urea nitroge n measurement (mass/volume)Ordered By: Briseyda Sinclair on 08-11-2024 Urea nitrogen [Mass/Vol] 29 mg/dL High 7-18 [facility] Sodium levelOrdered By: Amita Sinclair on 08-11-2024 Sodium [Moles/Vol] 139 mmol/L 136-145 [facility] T4 Free Directon 08-11-2024 T4 FREE DIRECT 0.84 ng/dL Normal 0.76-1.46 [facility] Comment on above: Performed By: #### L 506.0400, L501.14537 ####[facility] [address] [place], [address] TSH QnOrdered By: Briseyda Lopez bannerr on 08-11-2024 Thyroid Stimulating Hormone (TSH) 4.190 uIU/mL High 0.358-3.740 [facility] Thyroid Stim Hormone (TSH)on 08-11-2024 TSH 4.190 uIU/mL High 0.358-3.740 [facility] Comment on above: Performed By: #### L 501.5200, L100.0100, L501.9985, L500.4050, L500.4100, L506.1000, L501.9520 ####[facility] [address] [place], [place], [id number] Total proteinOrdered By: Lisset Chaves on 08-11-2024 Protein [Mass/Vol] 7.0 g/dL 6.4-8.2 [facility] Triglycerides measurementOrd ered By: Dalila Chaves on 08-11-2024 Triglyceride [Mass/Vol] 297 mg/dL High <199 [facility] Comment on above: The drugs N-Acetylcy steine and Metamizole may falsely depress this assay.Serum Triglycerides Reference Interval Normal <150 mg/dL Borderline high 150 - 199 mg/dL High 200 - 499 mg/dL Very High > or = 500 mg/dL Very low density lipoprotein (VLDL) cholesterol measurementOrdered By: Dalila Chaves on 08-11-2024 VLDL Cholesterol 59 mg/dL High 5-40 [facility] Vitamin D,25 Hydroxyon 08-11 Vitamin D 25-OH 36.7 ng/mL Normal [facility] Comment on above: Result Comment: Lesa min D 25(OH) Status Range Deficiency <20 ng/mL (50nmol/L) Insufficiency 20 - 30 ng/mL (50 - 75 nmol/L) Sufficiency 30 - 100 ng/mL (75 - 250 nmol/L) Toxicity >100 ng/mL (>250 nmol/L) Performed By: #### L 501.5200, L100.0100, L501.9985, L500.4050, L500.4100, L506.1000, L501.9520 ####[facility] [address] [place], [place], [id number] White blood cell (WBC) count Ordered By: Briseyda Sinclair on 08-11-2024 WBC (Bld) [#/Vol] 5.8 10*3/uL 4.4-11.0 [facility] MR/BMS.IMBon 08-10-2024 MR/BMS.IMB Normal [facility] Urgent Care Visit Reporton 1 09-18-2023 Urgent Care Visit Report Normal [facility] Thin prep Papanicolaou smear with manual screeningOrdered By: Manuel Gilman on 12-03-2023 Thin prep Papanicolaou smear with manual screening 252 mg/dL 74-106 [facility] Comment on above: MANAGEMENT OF PATIEN T CARE PER NURSING PROTOCOL Basophil percentageOrdered B y: Briseyda Sinclair on 11-19-2023 Hemoglobin (Bld) [Mass/Vol] 12.5 g/dL 13.0-16.5 [facility] Hematocrit Auto (Bld) [Volum e fraction]Ordered By: Briseyda Sinclair on 11-19-2023 Hematocrit (Bld) [Volume fraction] 37.6 % 40-54 [facility] Absolute lymphocyte countOrd ered By: Briseyda Sinclair on 11-06-2023 Lymphocytes Auto (Unsp spec) [#/Vol] 1.91 10*3/uL 0.83-4.51 [facility] Automated lymphocyte count a s percentage of total leukocytesOrdered By: Briseyda Sinclair on 11-06-2023 Lymphocytes/100 WBC Auto (Unsp spec) 35.9 % 19-41 [facility] Basophil percentageOrdered B y: Briseyda Sinclair on 11-06-2023 Basophils/100 WBC (Bld) 0.6 % 0-1 [facility] Bilirubin [Mass/Vol] 0.40 mg/dL 0.20-1.00 [facility] Comment on above: For patients on eltr ombopag therapy, use of Dimension [place] TBIL is not recommended. Chloride [Moles/Vol] 108 mmol/L 98-107 [facility] Eosinophils/100 WBC (Bld) 6.0 % 0-5 [facility] Glucose [Mass/Vol] 148 mg/dL 74-106 [facility] Comment on above: Fasting Glucose resu lt greater than or equal to 126 mg/dL suggests DIABETES MELLITUS per A.D.A. criteria. Hemoglobin (Bld) [Mass/Vol] 12.4 g/dL 13.0-16.5 [facility] Monocytes/100 WBC (Bld) 12.8 % 0-10 [facility] Neutrophils (Bld) [#/Vol] 2.4 10*3/uL 2.0-7.7 [facility] Neutrophils/100 WBC (Bld) 44.3 % 47-70 [facility] Potassium [Moles/Vol] 4.2 mmol/L 3.5-5.1 [facility] Protein [Mass/Vol] 7.0 g/dL 6.4-8.2 [facility] Sodium [Moles/Vol] 141 mmol/L 136-145 [facility] WBC (Bld) [#/Vol] 5.3 10*3/uL 4.4-11.0 [facility] Basophil percentageOrdered B y: Dalila Chaves on 11-06-2023 Cholesterol [Mass/Vol] 153 mg/dL <200 [facility] Comment on above: <200 mg/dL Desirable 200-240 mg/dL Borderline >240 mg/dL High Risk Triglyceride [Mass/Vol] 132 mg/dL <199 [facility] Comment on above: The drugs N-Acetylcy steine and Metamizole may falsely depress this assay.Serum Triglycerides Reference Interval Normal <150 mg/dL Borderline high 150 - 199 mg/dL High 200 - 499 mg/dL Very High > or = 500 mg/dL Determination of erythrocyte mean corpuscular volume (MCV)Ordered By: Briseyda Sinclair on 11-06-2023 MCV (RBC) [Entitic vol] 91.4 fL 80-94 [facility] Direct bilirubinOrdered By: Briseyda Sinclair on 11-06-2023 Bilirubin.direct [Mass/Vol] 0.11 mg/dL 0.00-0.30 [facility] Erythrocyte distribution wid th ratioOrdered By: Briseyda Sinclair on 11-06-2023 Erythrocyte distribution width (RBC) [Ratio] 13.1 % 11.6-14.6 [facility] Erythrocyte distribution wid th standard deviationOrdered By: Briseyda Sinclair on 11-06-2023 Erythrocyte distribution width (RBC) [Entitic vol] 43.8 fL 35.1-43.9 [facility] Hematocrit Auto (Bld) [Volum e fraction]Ordered By: Briseyda Sinclair on 11-06-2023 Hematocrit (Bld) [Volume fraction] 37.2 % 40-54 [facility] Immature granulocytes/100 WB C Auto (Bld)Ordered By: Briseyda Sinclair on 11-06-2023 Immature granulocytes/100 WBC (Bld) 0.400 % 0.0-0.9 [facility] Comment on above: IG% - Immature Granu locytes (promyelocytes, myelocytes and metamyelocytes) > 1% indicates that a LEFT SHIFT is Present. Laboratory - Chemistry and C hemistry - challengeOrdered By: Briseyda Sinclair on 11-06-2023 Albumin/Globulin [Mass ratio] 1.1 {ratio} 0.9-2.4 [facility] ALP [Catalytic activity/Vol] 77 U/L 45-117 [facility] ALT [Catalytic activity/Vol] 25 U/L 16-61 [facility] CO2 [Moles/Vol] 28.0 mmol/L 21.0-32.0 [facility] Globulin (S) [Mass/Vol] 3.4 g/dL 2.2-4.2 [facility] Urea nitrogen/Creatinine [Mass ratio] 20.2 mg/mg 10-20 [facility] Laboratory - Chemistry and C hemistry - challengeOrdered By: Dalila Chaves on 11-06-2023 Cholesterol in HDL [Mass/Vol] 47 mg/dL >40 [facility] Comment on above: The drugs N-Acetylcy steine and Metamizole may falsely depress this assay. Reference Range HDL <40 mg/dL Low HDL Cholesterol HDL >or= 60 mg/dL High HDL Cholesterol Cholesterol in LDL [Mass/Vol] 80 mg/dL 0-130 [facility] Laboratory - Hematology and Cell countsOrdered By: Briseyda Sinclair on 11-06-2023 MCH (RBC) [Entitic mass] 30.5 pg 27.0-32.0 [facility] MCHC (RBC) [Mass/Vol] 33.3 g/dL 32-36 [facility] Nucleated RBC/100 WBC (Bld) [Ratio] 0 % 0-5 [facility] Platelet mean volume (Bld) [Entitic vol] 10.0 fL 6.2-12.0 [facility] Platelets (Bld) [#/Vol] 289 10*3/uL 150-450 [facility] No Panel InformationOrdered By: Briseyda Sinclair on 11-06-2023 Estimated GFR (MDRD) Amer 81 mL/min >60 [facility] Comment on above: GFR Calc Estimated GFR (MDRD) Non-Af Amer 67 mL/min >60 [facility] Comment on above: Non- GFR Calc Prostate Specific Antigen Screen 2.56 ng/mL 0.00-4.00 [facility] Comment on above: This test was perfor med using the TPSA assay method for [employer] chemistry system. Values obtained with differentassay methods cannot be used interchangably.When changing PSA assays in the course of monitoring apatient, additional sequential testing should be carriedout to confirm baseline values. Vitamin D 25-Hydroxy 44.2 ng/mL [facility] Comment on above: Vitamin D 25(OH) Sta tus Range Deficiency <20 ng/mL (50nmol/L) Insufficiency 20 - 30 ng/mL (50 - 75 nmol/L) Sufficiency 30 - 100 ng/mL (75 - 250 nmol/L) Toxicity >100 ng/mL (>250 nmol/L) No Panel InformationOrdered By: Dalila Chaves on 11-06-2023 VLDL Cholesterol 26 mg/dL 5-40 [facility] RBC Auto (Bld) [#/Vol]Ordere d By: Briseyda Sinclair on 11-06-2023 RBC (Bld) [#/Vol] 4.07 10*6/uL 4.6-6.2 [facility] Serum or plasma calcium makeda urement (mass/volume)Ordered By: Briseyda Sinclair on 11-06-2023 Calcium [Mass/Vol] 10.4 mg/dL 8.5-10.1 [facility] Serum or plasma creatinine m easurement (mass/volume)Ordered By: Briseyda Sinclair on 11-06-2023 Creatinine [Mass/Vol] 1.14 mg/dL 0.70-1.30 [facility] Comment on above: The validity of the calculated GFR & GFRAA in patients over 70 years has not been determined. Clinical correlation is essential. Serum or plasma thyroid stim ulating hormone (TSH) measurement (units/volume)Ordered By: Birseyda Sinclair on 11-06-2023 TSH Qn 3.00 uIU/mL 0.358-3.74 [facility] Serum or plasma urea nitroge n measurement (mass/volume)Ordered By: Briseyda Sinclair on 11-06-2023 Urea nitrogen [Mass/Vol] 23 mg/dL 7-18 [facility] Thin prep Papanicolaou smear with manual screeningOrdered By: Briseydareji Sinclair on 11-06-2023 Thin prep Papanicolaou smear with manual screening 3.6 g/dL 3.2-5.0 [facility] Thin prep Papanicolaou smear with manual screening 11 U/L 15-37 [facility] Thin prep Papanicolaou smear with manual screening 5 5-15 [facility] Absolute lymphocyte countOrd ered By: Sadi Mccoy on 08-24-2023 Lymphocytes Auto (Unsp spec) [#/Vol] 1.66 10*3/uL 0.83-4.51 [facility] Basophil percentageOrdered B y: Sadi Mccoy on 08-24-2023 Basophils/100 WBC (Bld) 0.4 % 0-1 [facility] Chloride [Moles/Vol] 104 mmol/L 98-107 [facility] Eosinophils/100 WBC (Bld) 1.6 % 0-5 [facility] Glucose [Mass/Vol] 224 mg/dL 74-106 [facility] Comment on above: Glucose result great er than or equal to 200 mg/dLsuggests DIABETES MELLITUS per A.D.A. criteria. Neutrophils (Bld) [#/Vol] 7.4 10*3/uL 2.0-7.7 [facility] Neutrophils/100 WBC (Bld) 67.8 % 47-70 [facility] Potassium [Moles/Vol] 4.6 mmol/L 3.5-5.1 [facility] Sodium [Moles/Vol] 137 mmol/L 136-145 [facility] WBC (Bld) [#/Vol] 11.0 10*3/uL 4.4-11.0 [facility] Blood erythrocytes count (nu mber/volume)Ordered By: Sadi Mccoy on 08-24-2023 RBC (Bld) [#/Vol] 4.40 10*6/uL 4.6-6.2 [facility] Blood hemoglobin measurement (mass/volume)Ordered By: Sadi Mccoy on 08-24-2023 Hemoglobin (Bld) [Mass/Vol] 13.9 g/dL 13.0-16.5 [facility] Blood lymphocytes/100 leukoc ytesOrdered By: Sadi Mccoy on 08-24-2023 Lymphocytes/100 WBC (Bld) 15.2 % 19-41 [facility] Blood monocytes/100 leukocyt esOrdered By: Sadi Mccoy on 08-24-2023 Monocytes/100 WBC (Bld) 14.5 % 0-10 [facility] Blood platelet adequacy dete ction by light microscopyOrdered By: Sadi Mccoy on 08-24-2023 Platelets LM Ql (Bld) ADEQUATE ADEQ [facility] Blood platelet mean volumeOr dered By: Sadi Mccoy on 08-24-2023 Platelet mean volume (Bld) [Entitic vol] 9.8 fL 6.2-12.0 [facility] Determination of erythrocyte mean corpuscular volume (MCV)Ordered By: Sadi Mccoy on 08-24-2023 MCV (RBC) [Entitic vol] 91.1 fL 80-94 [facility] Hematocrit Auto (Bld) [Volum e fraction]Ordered By: Sadi Mccoy on 08-24-2023 Hematocrit (Bld) [Volume fraction] 40.1 % 40-54 [facility] Laboratory - Chemistry and C hemistry - challengeOrdered By: Sadi Mccoy on 08-24-2023 CO2 [Moles/Vol] 29.0 mmol/L 21.0-32.0 [facility] Urea nitrogen/Creatinine [Mass ratio] 23.5 mg/mg 10-20 [facility] Laboratory - Hematology and Cell countsOrdered By: Sadi Mccoy on 08-24-2023 Erythrocyte distribution width (RBC) [Entitic vol] 41.1 fL 35.1-43.9 [facility] Erythrocyte distribution width (RBC) [Ratio] 12.4 % 11.6-14.6 [facility] Immature granulocytes/100 WBC (Bld) 0.500 % 0.0-0.9 [facility] Comment on above: IG% - Immature Granu locytes (promyelocytes, myelocytes and metamyelocytes) > 1% indicates that a LEFT SHIFT is Present. MCH (RBC) [Entitic mass] 31.6 pg 27.0-32.0 [facility] Nucleated RBC/100 WBC (Bld) [Ratio] 0 % 0-5 [facility] MCHC Auto (RBC) [Mass/Vol]Or dered By: Sadi Mccoy on 08-24-2023 MCHC (RBC) [Mass/Vol] 34.7 g/dL 32-36 [facility] No Panel InformationOrdered By: Sadi Mccoy on 08-24-2023 Estimated Creatinine Clearance Calc 51.60 ml/min [facility] Estimated GFR (MDRD) Amer 68 mL/min >60 [facility] Comment on above: GFR Calc Estimated GFR (MDRD) Non-Af Amer 57 mL/min >60 [facility] Comment on above: Non- GFR Calc Platelets bldOrdered By: Misha Mccoy on 08-24-2023 Platelets (Bld) [#/Vol] 223 10*3/uL 150-450 [facility] RBC morphologyOrdered By: Devaughn Mccoy on 08-24-2023 RBC morphology finding Nom (Bld) NORM C+C NORMAL NORM C&C [facility] Serum or plasma calcium makeda urement (mass/volume)Ordered By: Sadi Mccoy on 08-24-2023 Calcium [Mass/Vol] 10.1 mg/dL 8.5-10.1 [facility] Serum or plasma creatinine m easurement (mass/volume)Ordered By: Sadi Mccoy on 08-24-2023 Creatinine [Mass/Vol] 1.32 mg/dL 0.70-1.30 [facility] Comment on above: The validity of the calculated GFR & GFRAA in patients over 70 years has not been determined. Clinical correlation is essential. Serum or plasma urea nitroge n measurement (mass/volume)Ordered By: Sadi Mccoy on 08-24-2023 Urea nitrogen [Mass/Vol] 31 mg/dL 7-18 [facility] Thin prep Papanicolaou smear with manual screeningOrdered By: Sadi Mccoy on 08-24-2023 Thin prep Papanicolaou smear with manual screening 4 5-15 [facility] Absolute lymphocyte countOrd ered By: Diogenes Villalpando on 08-20-2023 Lymphocytes Auto (Unsp spec) [#/Vol] 1.88 10*3/uL 0.83-4.51 [facility] Basophil percentageOrdered B y: Diogenes Villalpando on 08-20-2023 Basophil percentage 0 SEEN /hpf 0-5 [facility] Basophils/100 WBC (Bld) 0.2 % 0-1 [facility] Chloride [Moles/Vol] 101 mmol/L 98-107 [facility] Eosinophils/100 WBC (Bld) 2.0 % 0-5 [facility] Glucose [Mass/Vol] 271 mg/dL 74-106 [facility] Comment on above: Glucose result great er than or equal to 200 mg/dLsuggests DIABETES MELLITUS per A.D.A. criteria. Neutrophils (Bld) [#/Vol] 5.0 10*3/uL 2.0-7.7 [facility] Neutrophils/100 WBC (Bld) 62.5 % 47-70 [facility] Potassium [Moles/Vol] 4.4 mmol/L 3.5-5.1 [facility] Comment on above: Slight Hemolysis, Re sult may be falsely increased. Sodium [Moles/Vol] 137 mmol/L 136-145 [facility] WBC (Bld) [#/Vol] 8.0 10*3/uL 4.4-11.0 [facility] Bilirubin Test strip Ql (U)O rdered By: Diogenes Villalpando on 08-20-2023 Bilirubin Ql (U) Negative Negative [facility] Blood erythrocytes count (nu mber/volume)Ordered By: Diogenes Villalpando on 08-20-2023 RBC (Bld) [#/Vol] 4.54 10*6/uL 4.6-6.2 [facility] Blood hemoglobin measurement (mass/volume)Ordered By: Diogenes Villalpando on 08-20-2023 Hemoglobin (Bld) [Mass/Vol] 14.1 g/dL 13.0-16.5 [facility] Blood lymphocytes/100 leukoc ytesOrdered By: Diogenes Villalpando on 08-20-2023 Lymphocytes/100 WBC (Bld) 23.4 % 19-41 [facility] Blood monocytes/100 leukocyt esOrdered By: Diogenes Villalpando on 08-20-2023 Monocytes/100 WBC (Bld) 11.5 % 0-10 [facility] Blood platelet mean volumeOr dered By: Diogenes Villalpando on 08-20-2023 Platelet mean volume (Bld) [Entitic vol] 9.9 fL 6.2-12.0 [facility] Determination of erythrocyte mean corpuscular volume (MCV)Ordered By: Diogenes Villalpando on 08-20-2023 MCV (RBC) [Entitic vol] 91.4 fL 80-94 [facility] Hematocrit Auto (Bld) [Volum e fraction]Ordered By: Diogenes Villalpando on 08-20-2023 Hematocrit (Bld) [Volume fraction] 41.5 % 40-54 [facility] Ketones Test strip Ql (U)Ord ered By: Diogenes Villalpando on 08-20-2023 Ketones Ql (U) Negative Negative [facility] Laboratory - Chemistry and C hemistry - challengeOrdered By: Diogenes Villalpando on 08-20-2023 CO2 [Moles/Vol] 27.0 mmol/L 21.0-32.0 [facility] Urea nitrogen/Creatinine [Mass ratio] 29.7 mg/mg 10-20 [facility] Laboratory - Hematology and Cell countsOrdered By: Diogenes Villalpando on 08-20-2023 Erythrocyte distribution width (RBC) [Entitic vol] 40.8 fL 35.1-43.9 [facility] Erythrocyte distribution width (RBC) [Ratio] 12.2 % 11.6-14.6 [facility] Immature granulocytes/100 WBC (Bld) 0.400 % 0.0-0.9 [facility] Comment on above: IG% - Immature Granu locytes (promyelocytes, myelocytes and metamyelocytes) > 1% indicates that a LEFT SHIFT is Present. MCH (RBC) [Entitic mass] 31.1 pg 27.0-32.0 [facility] Nucleated RBC/100 WBC (Bld) [Ratio] 0 % 0-5 [facility] MCHC Auto (RBC) [Mass/Vol]Or dered By: Diogenes Villalpando on 08-20-2023 MCHC (RBC) [Mass/Vol] 34.0 g/dL 32-36 [facility] Mucus LM Ql (Urine sed)Order ed By: Diogenes Villalpando on 08-20-2023 Mucus Ql (Urine sed) 0 SEEN /hpf [facility] Nitrite Test strip Ql (U)Ord ered By: Diogenes Villalpando on 08-20-2023 Nitrite Ql (U) Negative Negative [facility] No Panel InformationOrdered By: Diogenes Villalpando on 08-20-2023 Estimated Creatinine Clearance Calc 49.90 ml/min [facility] Estimated GFR (MDRD) Amer 65 mL/min >60 [facility] Comment on above: GFR Calc Estimated GFR (MDRD) Non-Af Amer 54 mL/min >60 [facility] Comment on above: Non- GFR Calc Platelets bldOrdered By: Simeon Villalpando on 08-20-2023 Platelets (Bld) [#/Vol] 259 10*3/uL 150-450 [facility] Protein Test strip Ql (U)Ord ered By: Diogenes Villalpando on 08-20-2023 Protein Ql (U) 15 mg/dl Negative [facility] Serum or plasma calcium makeda urement (mass/volume)Ordered By: Diogenes Villalpando on 08-20-2023 Calcium [Mass/Vol] 9.5 mg/dL 8.5-10.1 [facility] Serum or plasma creatinine m easurement (mass/volume)Ordered By: Diogenes Villalpando on 08-20-2023 Creatinine [Mass/Vol] 1.38 mg/dL 0.70-1.30 [facility] Comment on above: The validity of the calculated GFR & GFRAA in patients over 70 years has not been determined. Clinical correlation is essential. Serum or plasma urea nitroge n measurement (mass/volume)Ordered By: Diogenes Villalpando on 08-20-2023 Urea nitrogen [Mass/Vol] 41 mg/dL 7-18 [facility] Squamous epithelial cells de tection in urine sediment by light microscopyOrdered By: Diogenes Villalpando on 08-20-2023 Epithelial cells.squamous LM Ql (Urine sed) 0 SEEN /hpf 0-5 [facility] Thin prep Papanicolaou smear with manual screeningOrdered By: Diogenes Villalpando on 08-20-2023 Thin prep Papanicolaou smear with manual screening 9 5-15 [facility] Urine blood detectionOrdered By: Diogenes Villalpando on 08-20-2023 RBC Ql (U) Negative Negative [facility] RBC Ql (U) 0 SEEN /hpf 0-5 [facility] Urine clarityOrdered By: Simeon Villalpando on 08-20-2023 Clarity (U) Clear Clear [facility] Urine color determinationOrd ered By: Diogenes Villalpando on 08-20-2023 Color (U) Yellow Yellow [facility] Urine glucose detectionOrder ed By: Diogenes Villalpando on 08-20-2023 Glucose Ql (U) 1000 mg/dl Normal [facility] Urine leukocyte esterase det ection by dipstickOrdered By: Diogenes Villalpando on 08-20-2023 Leukocyte esterase Test strip Ql (U) Negative Negative [facility] Urine pHOrdered By: Diogenes Villalpando on 08-20-2023 pH (U) 6.0 [pH] 5.0 - 8.0 [facility] Urine sediment bacteria coun t by microscopy (number/high power field)Ordered By: Diogenes Villalpando on 08-20-2023 Bacteria LM.HPF (Urine sed) [#/Area] 0 /[HPF] None Seen [facility] Urine specific gravity measu rementOrdered By: Diogenes Villalpando on 08-20-2023 Specific gravity (U) [Rel density] 1.015 1.002-1.030 [facility] Urobilinogen Auto test strip Ql (U)Ordered By: Diogenes Villalpando on 08-20-2023 Urobilinogen Ql (U) Normal mg/dl Normal [facility] No Panel Informationon 08-13 Influenza Types A,B Rapid (Clinic) Negative [facility] POC SARS CoV-2 Antigen Positive [facility] Basophil percentageOrdered B y: Mc Saleh on 05-23-2023 Chloride [Moles/Vol] 107 mmol/L 98-107 [facility] Cholesterol [Mass/Vol] 125 mg/dL <200 [facility] Comment on above: <200 mg/dL Desirable 200-240 mg/dL Borderline >240 mg/dL High Risk Glucose [Mass/Vol] 191 mg/dL 74-106 [facility] Comment on above: Fasting Glucose resu lt greater than or equal to 126 mg/dL suggests DIABETES MELLITUS per A.D.A. criteria. Potassium [Moles/Vol] 4.2 mmol/L 3.5-5.1 [facility] Sodium [Moles/Vol] 140 mmol/L 136-145 [facility] Triglyceride [Mass/Vol] 228 mg/dL <199 [facility] Comment on above: The drugs N-Acetylcy steine and Metamizole may falsely depress this assay.Serum Triglycerides Reference Interval Normal <150 mg/dL Borderline high 150 - 199 mg/dL High 200 - 499 mg/dL Very High > or = 500 mg/dL Laboratory - Chemistry and C hemistry - challengeOrdered By: Mc Saleh on 05-23-2023 ALT [Catalytic activity/Vol] 29 U/L 16-61 [facility] CK [Catalytic activity/Vol] 81 U/L 39-308 [facility] CO2 [Moles/Vol] 27.0 mmol/L 21.0-32.0 [facility] Urea nitrogen/Creatinine [Mass ratio] 22.2 mg/mg 10-20 [facility] No Panel InformationOrdered By: Mc Saleh on 05-23-2023 Estimated GFR (MDRD) Amer 79 mL/min >60 [facility] Comment on above: GFR Calc Estimated GFR (MDRD) Non-Af Amer 65 mL/min >60 [facility] Comment on above: Non- GFR Calc Serum or plasma calcium makeda urement (mass/volume)Ordered By: Mc Saleh on 05-23-2023 Calcium [Mass/Vol] 9.0 mg/dL 8.5-10.1 [facility] Serum or plasma cholesterol in HDL measurement (mass/volume)Ordered By: Mc Saleh on 05-23-2023 Cholesterol in HDL [Mass/Vol] 39 mg/dL >40 [facility] Comment on above: The drugs N-Acetylcy steine and Metamizole may falsely depress this assay. Reference Range HDL <40 mg/dL Low HDL Cholesterol HDL >or= 60 mg/dL High HDL Cholesterol Serum or plasma cholesterol in VLDL measurement (mass/volume)Ordered By: Mc Saleh on 05-23-2023 Cholesterol in VLDL [Mass/Vol] 46 mg/dL 5-40 [facility] Serum or plasma creatinine m easurement (mass/volume)Ordered By: Mc Saleh on 05-23-2023 Creatinine [Mass/Vol] 1.17 mg/dL 0.70-1.30 [facility] Comment on above: The validity of the calculated GFR & GFRAA in patients over 70 years has not been determined. Clinical correlation is essential. Serum or plasma low density lipoprotein (LDL) cholesterol measurement (mass/volume)Ordered By: Mcsarah Saleh on 05-23-2023 Cholesterol in LDL [Mass/Vol] 40 mg/dL 0-130 [facility] Serum or plasma urea nitroge n measurement (mass/volume)Ordered By: Mcsarah Saleh on 05-23-2023 Urea nitrogen [Mass/Vol] 26 mg/dL 7-18 [facility] Thin prep Papanicolaou smear with manual screeningOrdered By: Mcsarah Saleh on 05-23-2023 Thin prep Papanicolaou smear with manual screening 13 U/L 15-37 [facility] Thin prep Papanicolaou smear with manual screening 6 5-15 [facility] Absolute lymphocyte countOrd ered By: Briseyda Sinclair on 04-03-2023 Lymphocytes Auto (Unsp spec) [#/Vol] 1.71 10*3/uL 0.83-4.51 [facility] Basophil percentageOrdered B y: Briseyda Sinclair on 04-03-2023 Basophils/100 WBC (Bld) 0.2 % 0-1 [facility] Bilirubin [Mass/Vol] 0.40 mg/dL 0.20-1.00 [facility] Comment on above: For patients on eltr ombopag therapy, use of Dimension [place] TBIL is not recommended. Chloride [Moles/Vol] 104 mmol/L 98-107 [facility] Eosinophils/100 WBC (Bld) 4.7 % 0-5 [facility] Glucose [Mass/Vol] 345 mg/dL 74-106 [facility] Comment on above: Glucose result great er than or equal to 200 mg/dLsuggests DIABETES MELLITUS per A.D.A. criteria. Neutrophils (Bld) [#/Vol] 2.3 10*3/uL 2.0-7.7 [facility] Neutrophils/100 WBC (Bld) 48.3 % 47-70 [facility] Potassium [Moles/Vol] 4.6 mmol/L 3.5-5.1 [facility] Protein [Mass/Vol] 6.7 g/dL 6.4-8.2 [facility] Sodium [Moles/Vol] 138 mmol/L 136-145 [facility] WBC (Bld) [#/Vol] 4.9 10*3/uL 4.4-11.0 [facility] Blood erythrocytes count (nu mber/volume)Ordered By: Briseyda Sinclair on 04-03-2023 RBC (Bld) [#/Vol] 4.11 10*6/uL 4.6-6.2 [facility] Blood hemoglobin measurement (mass/volume)Ordered By: Briseyda Sinclair on 04-03-2023 Hemoglobin (Bld) [Mass/Vol] 13.0 g/dL 13.0-16.5 [facility] Blood lymphocytes/100 leukoc ytesOrdered By: Briseyda Sinclair on 04-03-2023 Lymphocytes/100 WBC (Bld) 35.3 % 19-41 [facility] Blood monocytes/100 leukocyt esOrdered By: Briseyda Sinclair on 04-03-2023 Monocytes/100 WBC (Bld) 11.3 % 0-10 [facility] Blood platelet mean volumeOr dered By: Briseyda Sinclair on 04-03-2023 Platelet mean volume (Bld) [Entitic vol] 9.2 fL 6.2-12.0 [facility] Determination of erythrocyte mean corpuscular volume (MCV)Ordered By: Briseyda Sinclair on 04-03-2023 MCV (RBC) [Entitic vol] 91.5 fL 80-94 [facility] Hematocrit Auto (Bld) [Volum e fraction]Ordered By: Briseyda Sinclair on 04-03-2023 Hematocrit (Bld) [Volume fraction] 37.6 % 40-54 [facility] Laboratory - Chemistry and C hemistry - challengeOrdered By: Briseyda Sinclair on 04-03-2023 ALP [Catalytic activity/Vol] 62 U/L 45-117 [facility] ALT [Catalytic activity/Vol] 35 U/L 16-61 [facility] CO2 [Moles/Vol] 28.0 mmol/L 21.0-32.0 [facility] Globulin (S) [Mass/Vol] 3.1 g/dL 2.2-4.2 [facility] Urea nitrogen/Creatinine [Mass ratio] 16.2 mg/mg 10-20 [facility] Laboratory - Hematology and Cell countsOrdered By: Briseyda Sinclair on 04-03-2023 Erythrocyte distribution width (RBC) [Entitic vol] 41.0 fL 35.1-43.9 [facility] Erythrocyte distribution width (RBC) [Ratio] 12.3 % 11.6-14.6 [facility] Immature granulocytes/100 WBC (Bld) 0.200 % 0.0-0.9 [facility] Comment on above: IG% - Immature Granu locytes (promyelocytes, myelocytes and metamyelocytes) > 1% indicates that a LEFT SHIFT is Present. MCH (RBC) [Entitic mass] 31.6 pg 27.0-32.0 [facility] Nucleated RBC/100 WBC (Bld) [Ratio] 0 % 0-5 [facility] MCHC Auto (RBC) [Mass/Vol]Or dered By: Briseyda Sinclair on 04-03-2023 MCHC (RBC) [Mass/Vol] 34.6 g/dL 32-36 [facility] No Panel InformationOrdered By: Briseyda Sinclair on 04-03-2023 Estimated GFR (MDRD) Amer 63 mL/min >60 [facility] Comment on above: GFR Calc Estimated GFR (MDRD) Non-Af Amer 52 mL/min >60 [facility] Comment on above: Non- GFR Calc Vitamin D 25-Hydroxy 50.8 ng/mL [facility] Comment on above: Vitamin D 25(OH) Sta tus Range Deficiency <20 ng/mL (50nmol/L) Insufficiency 20 - 30 ng/mL (50 - 75 nmol/L) Sufficiency 30 - 100 ng/mL (75 - 250 nmol/L) Toxicity >100 ng/mL (>250 nmol/L) Platelets bldOrdered By: Isadora Sinclair on 04-03-2023 Platelets (Bld) [#/Vol] 233 10*3/uL 150-450 [facility] Serum or plasma albumin makeda urement (mass/volume)Ordered By: Briseyda Sinclair on 04-03-2023 Albumin [Mass/Vol] 3.6 g/dL 3.2-5.0 [facility] Serum or plasma albumin/glob ulin mass ratioOrdered By: Briseyda Sinclair on 04-03-2023 Albumin/Globulin [Mass ratio] 1.2 {ratio} 0.9-2.4 [facility] Serum or plasma calcium makeda urement (mass/volume)Ordered By: Briseyda Sinclair on 04-03-2023 Calcium [Mass/Vol] 9.1 mg/dL 8.5-10.1 [facility] Serum or plasma creatinine m easurement (mass/volume)Ordered By: Briseyda Sinclair on 04-03-2023 Creatinine [Mass/Vol] 1.42 mg/dL 0.70-1.30 [facility] Comment on above: The validity of the calculated GFR & GFRAA in patients over 70 years has not been determined. Clinical correlation is essential. Serum or plasma urea nitroge n measurement (mass/volume)Ordered By: Briseyda Sinclair on 04-03-2023 Urea nitrogen [Mass/Vol] 23 mg/dL 7-18 [facility] Thin prep Papanicolaou smear with manual screeningOrdered By: Briseyda Sinclair on 04-03-2023 Thin prep Papanicolaou smear with manual screening 15 U/L 15-37 [facility] Thin prep Papanicolaou smear with manual screening 6 5-15 [facility] Laboratory - Hematology and Cell countson 04-01-2023 HbA1c (Bld) [Mass fraction] 10.7 % 4.2-6.3 [facility] Absolute lymphocyte countOrd ered By: Dr. Sinclair on 09-25-2022 Lymphocytes Auto (Unsp spec) [#/Vol] 1.60 10*3/uL 0.83-4.51 [facility] Basophil percentageOrdered B y: Dr. Sinclair on 09-25-2022 Basophils/100 WBC (Bld) 0.4 % 0-1 [facility] Bilirubin [Mass/Vol] 0.40 mg/dL 0.20-1.00 [facility] Comment on above: For patients on eltr ombopag therapy, use of [place] TBIL is not recommended. Chloride [Moles/Vol] 106 mmol/L 98-107 [facility] Cholesterol [Mass/Vol] 165 mg/dL <200 [facility] Comment on above: <200 mg/dL Desirable 200-240 mg/dL Borderline >240 mg/dL High Risk Eosinophils/100 WBC (Bld) 5.2 % 0-5 [facility] Glucose [Mass/Vol] 219 mg/dL 74-106 [facility] Comment on above: Glucose result great er than or equal to 200 mg/dLsuggests DIABETES MELLITUS per A.D.A. criteria. Neutrophils (Bld) [#/Vol] 2.1 10*3/uL 2.0-7.7 [facility] Neutrophils/100 WBC (Bld) 46.9 % 47-70 [facility] Potassium [Moles/Vol] 4.2 mmol/L 3.5-5.1 [facility] Protein [Mass/Vol] 7.2 g/dL 6.4-8.2 [facility] Sodium [Moles/Vol] 139 mmol/L 136-145 [facility] Triglyceride [Mass/Vol] 221 mg/dL <199 [facility] Comment on above: The drugs N-Acetylcy steine and Metamizole may falsely depress this assay.Serum Triglycerides Reference Interval Normal <150 mg/dL Borderline high 150 - 199 mg/dL High 200 - 499 mg/dL Very High > or = 500 mg/dL WBC (Bld) [#/Vol] 4.5 10*3/uL 4.4-11.0 [facility] Blood erythrocytes count (nu mber/volume)Ordered By: Dr. Sinclair on 09-25-2022 RBC (Bld) [#/Vol] 4.45 10*6/uL 4.6-6.2 [facility] Blood hemoglobin measurement (mass/volume)Ordered By: Dr. Sinclair on 09-25-2022 Hemoglobin (Bld) [Mass/Vol] 13.8 g/dL 13.0-16.5 [facility] Blood lymphocytes/100 leukoc ytesOrdered By: Dr. Sinclair on 09-25-2022 Lymphocytes/100 WBC (Bld) 36.0 % 19-41 [facility] Blood monocytes/100 leukocyt esOrdered By: Dr. Sinclair on 09-25-2022 Monocytes/100 WBC (Bld) 11.5 % 0-10 [facility] Blood platelet mean volumeOr dered By: Dr. Sinclair on 09-25-2022 Platelet mean volume (Bld) [Entitic vol] 10.3 fL 6.2-12.0 [facility] Determination of erythrocyte mean corpuscular volume (MCV)Ordered By: Dr. Sinclair on 09-25-2022 MCV (RBC) [Entitic vol] 92.1 fL 80-94 [facility] Hematocrit Auto (Bld) [Volum e fraction]Ordered By: Dr. Sinclair on 09-25-2022 Hematocrit (Bld) [Volume fraction] 41.0 % 40-54 [facility] Laboratory - Chemistry and C hemistry - challengeOrdered By: Dr. Sinclair on 09-25-2022 ALP [Catalytic activity/Vol] 55 U/L 45-117 [facility] ALT [Catalytic activity/Vol] 34 U/L 16-61 [facility] CO2 [Moles/Vol] 28.0 mmol/L 21.0-32.0 [facility] Globulin (S) [Mass/Vol] 3.3 g/dL 2.2-4.2 [facility] Urea nitrogen/Creatinine [Mass ratio] 23.0 mg/mg 10-20 [facility] Laboratory - Hematology and Cell countsOrdered By: Dr. Sinclair on 09-25-2022 Erythrocyte distribution width (RBC) [Entitic vol] 42.1 fL 35.1-43.9 [facility] Erythrocyte distribution width (RBC) [Ratio] 12.5 % 11.6-14.6 [facility] Immature granulocytes/100 WBC (Bld) 0.000 % 0.0-0.9 [facility] Comment on above: IG% - Immature Granu locytes (promyelocytes, myelocytes and metamyelocytes) > 1% indicates that a LEFT SHIFT is Present. MCH (RBC) [Entitic mass] 31.0 pg 27.0-32.0 [facility] Nucleated RBC/100 [facility] (Bld) [[facility]] 0[facility]4 [facility] [Mass/Vol]Or dered By: Dr. Sinclair on 09-25-2022 MCHC (RBC) [Mass/Vol] 33.7 g/dL 32-36 [facility] No Panel InformationOrdered By: Dr. Sinclair on 09-25-2022 Estimated GFR (MDRD) Amer 82 mL/min >60 [facility] Comment on above: GFR Calc Estimated GFR (MDRD) Non-Af Amer 68 mL/min >60 [facility] Comment on above: Non- GFR Calc Prostate Specific Antigen Screen 1.97 ng/mL 0.00-4.00 [facility] Comment on above: This test was perfor med using the TPSA assay method for the[employer] chemistry system. Values obtained with differentassay methods cannot be used interchangably.When changing PSA assays in the course of monitoring apatient, additional sequential testing should be carriedout to confirm baseline values. Thyroid Stimulating Hormone (TSH) 3.41 uIU/mL 0.358-3.74 [facility] Vitamin D 25-Hydroxy 37.2 ng/mL [facility] Comment on above: Vitamin D 25(OH) Sta tus Range Deficiency <20 ng/mL (50nmol/L) Insufficiency 20 - 30 ng/mL (50 - 75 nmol/L) Sufficiency 30 - 100 ng/mL (75 - 250 nmol/L) Toxicity >100 ng/mL (>250 nmol/L) Platelets bldOrdered By: Dr. Sinclair on 09-25-2022 Platelets (Bld) [#/Vol] 244 10*3/uL 150-450 [facility] Serum or plasma albumin makeda urement (mass/volume)Ordered By: Dr. Sinclair on 09-25-2022 Albumin [Mass/Vol] 3.9 g/dL 3.2-5.0 [facility] Serum or plasma albumin/glob ulin mass ratioOrdered By: Dr. Sinclair on 09-25-2022 Albumin/Globulin [Mass ratio] 1.2 {ratio} 0.9-2.4 [facility] Serum or plasma calcium makeda urement (mass/volume)Ordered By: Dr. Sinclair on 09-25-2022 Calcium [Mass/Vol] 9.3 mg/dL 8.5-10.1 [facility] Serum or plasma cholesterol in HDL measurement (mass/volume)Ordered By: Dr. Sinclair on 09-25-2022 Cholesterol in HDL [Mass/Vol] 40 mg/dL >40 [facility] Comment on above: The drugs N-Acetylcy steine and Metamizole may falsely depress this assay. Reference Range HDL <40 mg/dL Low HDL Cholesterol HDL >or= 60 mg/dL High HDL Cholesterol Serum or plasma cholesterol in VLDL measurement (mass/volume)Ordered By: Dr. Sinclair on 09-25-2022 Cholesterol in VLDL [Mass/Vol] 44 mg/dL 5-40 [facility] Serum or plasma creatinine m easurement (mass/volume)Ordered By: Dr. Sinclair on 09-25-2022 Creatinine [Mass/Vol] 1.13 mg/dL 0.70-1.30 [facility] Comment on above: The validity of the calculated GFR & GFRAA in patients over 70 years has not been determined. Clinical correlation is essential. Serum or plasma low density lipoprotein (LDL) cholesterol measurement (mass/volume)Ordered By: Dr. Sinclair on 09-25-2022 Cholesterol in LDL [Mass/Vol] 81 mg/dL 0-130 [facility] Serum or plasma urea nitroge n measurement (mass/volume)Ordered By: Dr. Sinclair on 09-25-2022 Urea nitrogen [Mass/Vol] 26 mg/dL 7-18 [facility] Thin prep Papanicolaou smear with manual screeningOrdered By: Dr. Sinclair on 09-25-2022 Thin prep Papanicolaou smear with manual screening 13 U/L 15-37 [facility] Thin prep Papanicolaou smear with manual screening 5 5-15 [facility] Laboratory - Hematology and Cell countson 09-24-2022 HbA1c (Bld) [Mass fraction] 11.4 % 4.2-6.3 [facility] Basophil percentageon 2021 Chloride [Moles/Vol] 102 mmol/L 98-107 [facility] Work Phone: Glucose [Mass/Vol] 394 mg/dL 74-106 [facility] Work Phone: Comment on above: Glucose result great er than or equal to 200 mg/dLsuggests DIABETES MELLITUS per A.D.A. criteria. Potassium [Moles/Vol] 4.5 mmol/L 3.5-5.1 [facility] Work Phone: Sodium [Moles/Vol] 136 mmol/L 136-145 [facility] Work Phone: Laboratory - Chemistry and C hemistry - challengeon 06-04-2022 CO2 [Moles/Vol] 26.0 mmol/L 21.0-32.0 [facility] Work Phone: Urea nitrogen/Creatinine [Mass ratio] 21.4 mg/mg 10-20 [facility] Work Phone: No Panel Informationon 06-04 Estimated GFR (MDRD) Amer 64 mL/min >60 [facility] Work Phone: Comment on above: GFR Calc Estimated GFR (MDRD) Non-Af Amer 53 mL/min >60 [facility] Work Phone: Comment on above: Non- GFR Calc Serum or plasma calcium makeda urement (mass/volume)on 06-04-2022 Calcium [Mass/Vol] 9.3 mg/dL 8.5-10.1 [facility] Work Phone: Serum or plasma creatinine m easurement (mass/volume)on 06-04-2022 Creatinine [Mass/Vol] 1.40 mg/dL 0.70-1.30 [facility] Work Phone: Comment on above: The validity of the calculated GFR & GFRAA in patients over 70 years has not been determined. Clinical correlation is essential. Serum or plasma urea nitroge n measurement (mass/volume)on 06-04-2022 Urea nitrogen [Mass/Vol] 30 mg/dL 7-18 [facility] Work Phone: Thin prep Papanicolaou smear with manual screeningon 06-04-2022 Thin prep Papanicolaou smear with manual screening 8 5-15 [facility] Work Phone: Basophil percentageon 2021 Chloride [Moles/Vol] 102 mmol/L 98-107 [facility] Work Phone: Glucose [Mass/Vol] 334 mg/dL 74-106 [facility] Work Phone: Comment on above: Glucose result great er than or equal to 200 mg/dLsuggests DIABETES MELLITUS per A.D.A. criteria. Potassium [Moles/Vol] 4.8 mmol/L 3.5-5.1 [facility] Work Phone: Sodium [Moles/Vol] 136 mmol/L 136-145 [facility] Work Phone: WBC (Bld) [#/Vol] 5.6 10*3/uL 4.4-11.0 [facility] Work Phone: Blood erythrocytes count (nu mber/volume)on 05-24-2022 RBC (Bld) [#/Vol] 4.22 10*6/uL 4.6-6.2 [facility] Work Phone: Blood hemoglobin measurement (mass/volume)on 05-24-2022 Hemoglobin (Bld) [Mass/Vol] 13.4 g/dL 13.0-16.5 [facility] Work Phone: Blood platelet mean volumeon 05-24-2022 Platelet mean volume (Bld) [Entitic vol] 10.3 fL 6.2-12.0 [facility] Work Phone: Determination of erythrocyte mean corpuscular volume (MCV)on 05-24-2022 MCV (RBC) [Entitic vol] 92.4 fL 80-94 [facility] Work Phone: Hematocrit Auto (Bld) [Volum e fraction]on 05-24-2022 Hematocrit (Bld) [Volume fraction] 39.0 % 40-54 [facility] Work Phone: INR in Blood by Coagulation assayon 05-24-2022 INR Coag (Bld) [Relative time] 0.9 {INR} [facility] Work Phone: Laboratory - Chemistry and C hemistry - challengeon 05-24-2022 CO2 [Moles/Vol] 25.0 mmol/L 21.0-32.0 [facility] Work Phone: [phone] Urea nitrogen/Creatinine [Mass ratio] 25.8 mg/mg 10-20 [facility] Work Phone: Laboratory - Coagulationon 0 05-24-2022 aPTT Coag (Bld) [Time] 25.4 s 24.1-36.2 [facility] Work Phone: PT Coag (PPP) [Time] 11.7 s 11.7-14.[address] [facility] [facility] Work Phone: Laboratory - Hematology and Cell countson 05-24-2022 Erythrocyte distribution width (RBC) [Entitic vol] 41.1 fL 35.1-43.9 [facility] Work Phone: Erythrocyte distribution width (RBC) [Ratio] 12.2 % 11.6-14.6 [facility] Work Phone: MCH (RBC) [Entitic mass] 31.8 pg 27.0-32.0 [facility] Work Phone: MCHC Auto (RBC) [Mass/Vol]on 05-24-2022 MCHC (RBC) [Mass/Vol] 34.4 g/dL 32-36 [facility] Work Phone: No Panel Informationon 05-24 Estimated GFR (MDRD) Amer 44 mL/min >60 [facility] Work Phone: Comment on above: GFR Calc Estimated GFR (MDRD) Non-Af Amer 36 mL/min >60 [facility] Work Phone: [phone] Comment on above: Non- GFR Calc Platelets bldon 05-24-2022 Platelets (Bld) [#/Vol] 251 10*3/uL 150-450 [facility] Work Phone: Serum or plasma calcium makeda urement (mass/volume)on 05-24-2022 Calcium [Mass/Vol] 9.6 mg/dL 8.5-10.1 [facility] Work Phone: Serum or plasma creatinine m easurement (mass/volume)on 05-24-2022 Creatinine [Mass/Vol] 1.94 mg/dL 0.70-1.30 [facility] Work Phone: Comment on above: The validity of the calculated GFR & GFRAA in patients over 70 years has not been determined. Clinical correlation is essential. Serum or plasma urea nitroge n measurement (mass/volume)on 05-24-2022 Urea nitrogen [Mass/Vol] 50 mg/dL 7-18 [facility] Work Phone: Thin prep Papanicolaou smear with manual screeningon 05-24-2022 Thin prep Papanicolaou smear with manual screening 9 5-15 [facility] Work Phone: Laboratory - Hematology and Cell countson 03-21-2022 HbA1c (Bld) [Mass fraction] 10.0 % 4.2-6.3 [facility] Work Phone: CNTHERAPYon 02-09-2022 CNTHERAPY OT/PT/Speech Visit (PTWS) -------- COLEMAN DAVIES ([id number]) 1950 M Date Time Provider Department 02/09/22 9:30 AM MARIA ELENA ZHONG PTWS Date Time Provider Department Center 02/09/2022 9:30 AM [id number] ELENA ZHONG PTTYREE [facility] Reason for Visit: PT Discharge [752] 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] Allergies As of Date: 02/09/2022 (Not on File) Date Reviewed: Never Reviewed -------- Normal [facility] CNTHERAPYon 02-02-2022 CNTHERAPY OT/PT/Speech Visit (PTWS) -------- COLEMAN DAVIES ([id number]) 1950 M Date Time Provider Department 02/02/22 9:30 AM MARIA ELENA ZHONG Date Time Provider Department [place] 02/02/2022 9:30 AM [id number] ELENA ZHONG Reason for Visit: PT Progress Note [1596] 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] Allergies As of Date: 02/02/2022 (Not on File) Date Reviewed: Never Reviewed -------- Letter Text Normal [facility] CNTHERAPYon 01-26-2022 CNTHERAPY OT/PT/Speech Visit (PTWS) -------- COLEMAN DAVIES ([id number]) 1950 M Date Time Provider Department 01/26/22 8:45 AM MARIA ELENA ZHONG Date Time Provider Department [place] 01/26/2022 8:45 AM [id number] ELENA URENA Reason for Visit: Physical Therapy [503] 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] Allergies As of Date: 01/26/2022 (Not on File) Date Reviewed: Never Reviewed -------- Normal [facility] CNTHERAPYon 01-19-2022 CNTHERAPY OT/PT/Speech Visit (PTWS) -------- COLEMAN DAVIES ([id number]) 1950 M Date Time Provider Department 01/19/22 9:30 AM MARIA ELENA ZHONG Date Time Provider Department [place] 01/19/2022 9:30 AM [id number] ELENA URENA Reason for Visit: PT Progress Note [1596] 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] Allergies As of Date: 01/19/2022 (Not on File) Date Reviewed: Never Reviewed -------- Normal [facility] Absolute lymphocyte counton 01-08-2022 Lymphocytes Auto (Unsp spec) [#/Vol] 2.13 10*3/uL 0.83-4.51 [facility] Work Phone: Basophil percentageon 2021 Basophil percentage 0 SEEN /hpf [facility] Work Phone: Basophils/100 WBC (Bld) 0.1 % 0-1 [facility] Work Phone: Chloride [Moles/Vol] 101 mmol/L 98-107 [facility] Work Phone: Eosinophils/100 WBC (Bld) 0.5 % 0-5 [facility] Work Phone: Glucose [Mass/Vol] 404 mg/dL 74-106 [facility] Work Phone: Comment on above: Glucose result great er than or equal to 200 mg/dLsuggests DIABETES MELLITUS per A.D.A. criteria. Neutrophils (Bld) [#/Vol] 10.3 10*3/uL 2.0-7.7 [facility] Work Phone: Neutrophils/100 WBC (Bld) 76.7 % 47-70 [facility] Work Phone: Potassium [Moles/Vol] 5.3 mmol/L 3.5-5.1 [facility] Work Phone: Comment on above: Slight Hemolysis, Re sult may be falsely increased. Sodium [Moles/Vol] 133 mmol/L 136-145 [facility] Work Phone: WBC (Bld) [#/Vol] 13.5 10*3/uL 4.4-11.0 [facility] Work Phone: Bilirubin Test strip Ql (U)o n 01-08-2022 Bilirubin Ql (U) Negative Negative [facility] Work Phone: Blood erythrocytes count (nu mber/volume)on 01-08-2022 RBC (Bld) [#/Vol] 5.30 10*6/uL 4.6-6.2 [facility] Work Phone: Blood hemoglobin measurement (mass/volume)on 01-08-2022 Hemoglobin (Bld) [Mass/Vol] 16.5 g/dL 13.0-16.5 [facility] Work Phone: [phone] Blood lymphocytes/100 leukoc yteson 01-08-2022 Lymphocytes/100 WBC (Bld) 15.8 % 19-41 [facility] Work Phone: [phone] Blood monocytes/100 leukocyt eson 01-08-2022 Monocytes/100 WBC (Bld) 6.2 % 0-10 [facility] Work Phone: [phone] Blood platelet mean volumeon 01-08-2022 Platelet mean volume (Bld) [Entitic vol] 10.7 fL 6.2-12.0 [facility] Work Phone: Determination of erythrocyte mean corpuscular volume (MCV)on 01-08-2022 MCV (RBC) [Entitic vol] 90.0 fL 80-94 [facility] Work Phone: Glucose Glucometer (BldC) [M ass/Vol]on 01-08-2022 Glucose [Mass/Vol] 273 mg/dL 74-106 [facility] Work Phone: Comment on above: MANAGEMENT OF PATIEN T CARE PER NURSING PROTOCOL Hematocrit Auto (Bld) [Volum e fraction]on 01-08-2022 Hematocrit (Bld) [Volume fraction] 47.7 % 40-54 [facility] Work Phone: [phone] Ketones Test strip Ql (U)on 01-08-2022 Ketones Ql (U) Negative Negative [facility] Work Phone: [phone] Laboratory - Chemistry and C hemistry - challengeon 01-08-2022 CO2 [Moles/Vol] 22.0 mmol/L 21.0-32.0 [facility] Work Phone: Urea nitrogen/Creatinine [Mass ratio] 38.4 mg/mg 10-20 [facility] Work Phone: [phone] Laboratory - Hematology and Cell countson 01-08-2022 Erythrocyte distribution width (RBC) [Entitic vol] 41.6 fL 35.1-43.9 [facility] Work Phone: [phone] Erythrocyte distribution width (RBC) [Ratio] 12.5 % 11.6-14.6 [facility] Work Phone: [phone] Immature granulocytes/100 WBC (Bld) 0.700 % 0.0-0.9 [facility] Work Phone: [phone] Comment on above: IG% - Immature Granu locytes (promyelocytes, myelocytes and metamyelocytes) > 1% indicates that a LEFT SHIFT is Present. MCH (RBC) [Entitic mass] 31.1 pg 27.0-32.0 [facility] Work Phone: [phone] Nucleated RBC/100 WBC (Bld) [Ratio] 0 % 0-5 [facility] Work Phone: [phone] MCHC Auto (RBC) [Mass/Vol]on 01-08-2022 MCHC (RBC) [Mass/Vol] 34.6 g/dL 32-36 [facility] Work Phone: [phone] Mucus LM Ql (Urine sed)on Mucus Ql (Urine sed) 0 SEEN /hpf [facility] Work Phone: [phone] Nitrite Test strip Ql (U)on 01-08-2022 Nitrite Ql (U) Negative Negative [facility] Work Phone: [phone] Panel Informationon 01-08 Estimated Creatinine Clearance Calc 45.23 ml/min [facility] Work Phone: [phone] Estimated GFR (MDRD) Amer 61 mL/min >60 [facility] Work Phone: [phone] Comment on above: GFR Calc Estimated GFR (MDRD) Non-Af Amer 51 mL/min >60 [facility] Work Phone: [phone] Comment on above: Non- GFR Calc Platelets bldon 01-08-2022 Platelets (Bld) [#/Vol] 329 10*3/uL 150-450 [facility] Work Phone: Protein Test strip Ql (U)on 01-08-2022 Protein Ql (U) 15 mg/dl Negative [facility] Work Phone: Serum or plasma calcium makeda urement (mass/volume)on 01-08-2022 Calcium [Mass/Vol] 10.6 mg/dL 8.5-10.1 [facility] Work Phone: [phone] Serum or plasma creatinine m easurement (mass/volume)on 01-08-2022 Creatinine [Mass/Vol] 1.46 mg/dL 0.70-1.30 [facility] Work Phone: Comment on above: The validity of the calculated GFR & GFRAA in patients over 70 years has not been determined. Clinical correlation is essential. Serum or plasma urea nitroge n measurement (mass/volume)on 01-08-2022 Urea nitrogen [Mass/Vol] 56 mg/dL 7-18 [facility] Work Phone: Squamous epithelial cells de tection in urine sediment by light microscopyon 01-08-2022 Epithelial cells.squamous LM Ql (Urine sed) 0 SEEN /hpf [facility] Work Phone: Thin prep Papanicolaou smear with manual screeningon 01-08-2022 Thin prep Papanicolaou smear with manual screening 10 5-15 [facility] Work Phone: [phone] Urine blood detectionon 12-16 RBC Ql (U) Negative Negative [facility] Work Phone: [phone] RBC Ql (U) 0 SEEN /hpf [facility] Work Phone: [phone] Urine clarityon 01-08-2022 Clarity (U) Clear Clear [facility] Work Phone: [phone] Urine color determinationon 01-08-2022 Color (U) Yellow Yellow [facility] Work Phone: Urine glucose detectionon Glucose Ql (U) 1000 mg/dl Normal [facility] Work Phone: Urine leukocyte esterase det ection by dipstickon 01-08-2022 Leukocyte esterase Test strip Ql (U) Negative Negative [facility] Work Phone: Urine pHon 01-08-2022 pH (U) 6.0 [pH] [facility] Work Phone: Urine sediment bacteria coun t by microscopy (number/high power field)on 01-08-2022 Bacteria LM.HPF (Urine sed) [#/Area] 0 /[HPF] None Seen [facility] Work Phone: Urine specific gravity measu rementon 01-08-2022 Specific gravity (U) [Rel density] 1.015 [facility] Work Phone: Urobilinogen Auto test strip Ql (U)on 01-08-2022 Urobilinogen Ql (U) Normal mg/dl Normal [facility] Work Phone: Absolute lymphocyte counton 01-04-2022 Lymphocytes Auto (Unsp spec) [#/Vol] 1.29 10*3/uL 0.83-4.51 [facility] Work Phone: Basophil percentageon 2021 Basophils/100 WBC (Bld) 0.1 % 0-1 [facility] Work Phone: Chloride [Moles/Vol] 103 mmol/L 98-107 [facility] Work Phone: Eosinophils/100 WBC (Bld) 0.1 % 0-5 [facility] Work Phone: Glucose [Mass/Vol] 228 mg/dL 74-106 [facility] Work Phone: Comment on above: Glucose result great er than or equal to 200 mg/dLsuggests DIABETES MELLITUS per A.D.A. criteria. Neutrophils (Bld) [#/Vol] 10.0 10*3/uL 2.0-7.7 [facility] Work Phone: Neutrophils/100 WBC (Bld) 78.8 % 47-70 [facility] Work Phone: Potassium [Moles/Vol] 4.3 mmol/L 3.5-5.1 [facility] Work Phone: [phone] Sodium [Moles/Vol] 137 mmol/L 136-145 [facility] Work Phone: [phone] WBC (Bld) [#/Vol] 12.7 10*3/uL 4.4-11.0 [facility] Work Phone: Blood erythrocytes count (nu mber/volume)on 01-04-2022 RBC (Bld) [#/Vol] 5.10 10*6/uL 4.6-6.2 [facility] Work Phone: Blood hemoglobin measurement (mass/volume)on 01-04-2022 Hemoglobin (Bld) [Mass/Vol] 15.7 g/dL 13.0-16.5 [facility] Work Phone: Blood lymphocytes/100 leukoc yteson 01-04-2022 Lymphocytes/100 WBC (Bld) 10.1 % 19-41 [facility] Work Phone: [phone] Blood monocytes/100 leukocyt eson 01-04-2022 Monocytes/100 WBC (Bld) 10.3 % 0-10 [facility] Work Phone: Blood platelet mean volumeon 01-04-2022 Platelet mean volume (Bld) [Entitic vol] 10.1 fL 6.2-12.0 [facility] Work Phone: Determination of erythrocyte mean corpuscular volume (MCV)on 01-04-2022 MCV (RBC) [Entitic vol] 89.4 fL 80-94 [facility] Work Phone: Glucose Glucometer (BldC) [M ass/Vol]on 01-04-2022 Glucose [Mass/Vol] 433 mg/dL 74-106 [facility] Work Phone: Comment on above: MANAGEMENT OF PATIEN T CARE PER NURSING PROTOCOL Hematocrit Auto (Bld) [Volum e fraction]on 04-21-2022 Hematocrit (Bld) [Volume fraction] 45.6 % 40-54 [facility] Work Phone: [phone] Laboratory - Chemistry and C hemistry - challengeon 01-04-2022 CO2 [Moles/Vol] 27.0 mmol/L 21.0-32.0 [facility] Work Phone: [phone] Urea nitrogen/Creatinine [Mass ratio] 30.5 mg/mg 10-20 [facility] Work Phone: [phone] Laboratory - Hematology and Cell countson 01-04-2022 Erythrocyte distribution width (RBC) [Entitic vol] 40.7 fL 35.1-43.9 [facility] Work Phone: [phone] Erythrocyte distribution width (RBC) [Ratio] 12.3 % 11.6-14.6 [facility] Work Phone: [phone] Immature granulocytes/100 WBC (Bld) 0.600 % 0.0-0.9 [facility] Work Phone: [phone] Comment on above: IG% - Immature Granu locytes (promyelocytes, myelocytes and metamyelocytes) > 1% indicates that a LEFT SHIFT is Present. MCH (RBC) [Entitic mass] 30.8 pg 27.0-32.0 [facility] Work Phone: [phone] Nucleated RBC/100 WBC (Bld) [Ratio] 0 % 0-5 [facility] Work Phone: [phone] MCHC Auto (RBC) [Mass/Vol]on 01-04-2022 MCHC (RBC) [Mass/Vol] 34.4 g/dL 32-36 [facility] Work Phone: [phone] Panel Informationon 01-04 Estimated Creatinine Clearance Calc 51.28 ml/min [facility] Work Phone: [phone] Estimated GFR (MDRD) Amer 69 mL/min >60 [facility] Work Phone: [phone] Comment on above: GFR Calc Estimated GFR (MDRD) Non-Af Amer 57 mL/min >60 [facility] Work Phone: [phone] Comment on above: Non- GFR Calc Platelets bldon 04-21-2022 Platelets (Bld) [#/Vol] 321 10*3/uL 150-450 [facility] Work Phone: Serum or plasma calcium makeda urement (mass/volume)on 01-04-2022 Calcium [Mass/Vol] 9.0 mg/dL 8.5-10.1 [facility] Work Phone: Serum or plasma creatinine m easurement (mass/volume)on 01-04-2022 Creatinine [Mass/Vol] 1.31 mg/dL 0.70-1.30 [facility] Work Phone: Comment on above: The validity of the calculated GFR & GFRAA in patients over 70 years has not been determined. Clinical correlation is essential. Serum or plasma urea nitroge n measurement (mass/volume)on 01-04-2022 Urea nitrogen [Mass/Vol] 40 mg/dL 7-18 [facility] Work Phone: Thin prep Papanicolaou smear with manual screeningon 01-04-2022 Thin prep Papanicolaou smear with manual screening 7 5-15 [facility] Work Phone: Whole blood hemoglobin A1c/t otal hemoglobin ratio (mass fraction)on 01-03-2022 HbA1c (Bld) [Mass fraction] 11.0 % 3.8-5.6 [facility] Work Phone: Comment on above: Normal < 5.7 % Predi abetic 5.7 - 6.4 % Diabetic >or= 6.5 % Please note range changes. Absolute lymphocyte counton 01-02-2022 Lymphocytes Auto (Unsp spec) [#/Vol] 1.87 10*3/uL 0.83-4.51 [facility] Work Phone: Basophil percentageon 2021 Lactate [Moles/Vol] 1.5 mmol/L 0.4-2.0 [facility] Work Phone: Basophil percentage 0 SEEN /hpf [facility] Work Phone: Basophils/100 WBC (Bld) 0.2 % 0-1 [facility] Work Phone: Bilirubin [Mass/Vol] 0.70 mg/dL 0.20-1.00 [facility] Work Phone: [phone] Comment on above: For patients on eltr ombopag therapy, use of Dimension [place] TBIL is not recommended. Chloride [Moles/Vol] 91 mmol/L 98-107 [facility] Work Phone: Eosinophils/100 WBC (Bld) 0.0 % 0-5 [facility] Work Phone: [phone] Glucose [Mass/Vol] 500 mg/dL 74-106 [facility] Work Phone: Comment on above: Critical Result(s) C alled at: 07:58:34 01/02/2022 by: Frank Silva RN (ER). Results read back by same.Glucose result greater than or equal to 200 mg/dLsuggests DIABETES MELLITUS per A.D.A. criteria. Lactate [Moles/Vol] 3.8 mmol/L 0.4-2.0 [facility] Work Phone: Comment on above: Critical Result(s) C alled at: 08:00:34 01/02/2022 by: Frank Silva RN (ER). Results read back by same. Neutrophils (Bld) [#/Vol] 13.3 10*3/uL 2.0-7.7 [facility] Work Phone: Neutrophils/100 WBC (Bld) 80.2 % 47-70 [facility] Work Phone: [phone] Potassium [Moles/Vol] 5.5 mmol/L 3.5-5.1 [facility] Work Phone: [phone] Protein [Mass/Vol] 8.9 g/dL 6.4-8.2 [facility] Work Phone: [phone] Sodium [Moles/Vol] 130 mmol/L 136-145 [facility] Work Phone: [phone] WBC (Bld) [#/Vol] 16.6 10*3/uL 4.4-11.0 [facility] Work Phone: Bilirubin Test strip Ql (U)o n 01-02-2022 Bilirubin Ql (U) Negative Negative [facility] Work Phone: Blood erythrocytes count (nu mber/volume)on 01-02-2022 RBC (Bld) [#/Vol] 5.53 10*6/uL 4.6-6.2 [facility] Work Phone: Blood hemoglobin measurement (mass/volume)on 01-02-2022 Hemoglobin (Bld) [Mass/Vol] 17.3 g/dL 13.0-16.5 [facility] Work Phone: Blood lymphocytes/100 leukoc yteson 01-02-2022 Lymphocytes/100 WBC (Bld) 11.3 % 19-41 [facility] Work Phone: Blood monocytes/100 leukocyt eson 01-02-2022 Monocytes/100 WBC (Bld) 7.6 % 0-10 [facility] Work Phone: Blood platelet mean volumeon 01-02-2022 Platelet mean volume (Bld) [Entitic vol] 10.0 fL 6.2-12.0 [facility] Work Phone: Determination of erythrocyte mean corpuscular volume (MCV)on 01-02-2022 MCV (RBC) [Entitic vol] 88.8 fL 80-94 [facility] Work Phone: Glucose Glucometer (BldC) [M ass/Vol]on 01-02-2022 Glucose [Mass/Vol] 334 mg/dL 74-106 [facility] Work Phone: Comment on above: MANAGEMENT OF PATIEN T CARE PER NURSING PROTOCOL HCO3 (BldA) [Moles/Vol]on HCO3 (Bld) [Moles/Vol] 22 mmol/L 22-26 [facility] Work Phone: Hematocrit Auto (Bld) [Volum e fraction]on 01-02-2022 Hematocrit (Bld) [Volume fraction] 49.1 % 40-54 [facility] Work Phone: [phone] Ketones Test strip Ql (U)on 01-02-2022 Ketones Ql (U) 15 mg/dl Negative [facility] Work Phone: [phone] Laboratory - Chemistry and C hemistry - challengeon 01-02-2022 CO2 [Moles/Vol] 23 mmol/L 23-33 [facility] Work Phone: [phone] ALP [Catalytic activity/Vol] 77 U/L 45-117 [facility] Work Phone: [phone] ALT [Catalytic activity/Vol] 52 U/L 16-61 [facility] Work Phone: [phone] CO2 [Moles/Vol] 24.0 mmol/L 21.0-32.0 [facility] Work Phone: [phone] Globulin (S) [Mass/Vol] 4.5 g/dL 2.2-4.2 [facility] Work Phone: [phone] Urea nitrogen/Creatinine [Mass ratio] 37.3 mg/mg 10-20 [facility] Work Phone: [phone] Laboratory - Hematology and Cell countson 01-02-2022 Erythrocyte distribution width (RBC) [Entitic vol] 40.9 fL 35.1-43.9 [facility] Work Phone: [phone] Erythrocyte distribution width (RBC) [Ratio] 12.5 % 11.6-14.6 [facility] Work Phone: [phone] Immature granulocytes/100 WBC (Bld) 0.700 % 0.0-0.9 [facility] Work Phone: [phone] Comment on above: IG% - Immature Granu locytes (promyelocytes, myelocytes and metamyelocytes) > 1% indicates that a LEFT SHIFT is Present. MCH (RBC) [Entitic mass] 31.3 pg 27.0-32.0 [facility] Work Phone: [phone] Nucleated RBC/100 WBC (Bld) [Ratio] 0 % 0-5 [facility] Work Phone: Laboratory - Microbiology an d Antimicrobial susceptibilityon 01-02-2022 Bacteria identified Cx Nom (Bld) No growth in 5 days. [facility] Work Phone: MCHC Auto (RBC) [Mass/Vol]on 01-02-2022 MCHC (RBC) [Mass/Vol] 35.2 g/dL 32-36 [facility] Work Phone: Mucus LM Ql (Urine sed)on Mucus Ql (Urine sed) 0 SEEN /hpf [facility] Work Phone: Nitrite Test strip Ql (U)on 01-02-2022 Nitrite Ql (U) Negative Negative [facility] Work Phone: No Panel Informationon 01-02 Bed Mix Venous Bld PCO2 at Pat Temp 35.3 mmHg 41-51 [facility] Work Phone: Blood Gas Specimen Type JUDY [facility] Work Phone: Venous Blood Base Excess -3 mmol/L -1.0-3.5 [facility] Work Phone: SARS-CoV-2 & FLU Antigen (Rapid) [facility] Work Phone: Estimated Creatinine Clearance Calc 33.64 ml/min [facility] Work Phone: Estimated GFR (MDRD) Amer 42 mL/min >60 [facility] Work Phone: Comment on above: GFR Calc Estimated GFR (MDRD) Non-Af Amer 34 mL/min >60 [facility] Work Phone: Comment on above: Non- GFR Calc Troponin I High Sensitivity 7 pg/mL 3.0-78.0 [facility] Work Phone: Comment on above: Please Note: New Lynette t Units and Gender Specific Reference Ranges. For more information see Policy Stat Procedure [place] High Sensitivity Troponin (TNIH) and attachments. PO2 venouson 01-02-2022 Oxygen (BldV) [Partial pressure] 25 mm[Hg] 25-40 [facility] Work Phone: Platelets bldon 01-02-2022 Platelets (Bld) [#/Vol] 417 10*3/uL 150-450 [facility] Work Phone: Protein Test strip Ql (U)on 01-02-2022 Protein Ql (U) 15 mg/dl Negative [facility] Work Phone: Serum or plasma acetone makeda urement (mass/volume)on 01-02-2022 Acetone [Mass/Vol] Negative NEG [facility] Work Phone: Serum or plasma albumin makeda urement (mass/volume)on 01-02-2022 Albumin [Mass/Vol] 4.4 g/dL 3.2-5.0 [facility] Work Phone: Serum or plasma albumin/glob ulin mass ratioon 01-02-2022 Albumin/Globulin [Mass ratio] 1.0 {ratio} 0.9-2.4 [facility] Work Phone: Serum or plasma calcium makeda urement (mass/volume)on 01-02-2022 Calcium [Mass/Vol] 11.1 mg/dL 8.5-10.1 [facility] Work Phone: Serum or plasma creatinine m easurement (mass/volume)on 01-02-2022 Creatinine [Mass/Vol] 2.04 mg/dL 0.70-1.30 [facility] Work Phone: Comment on above: The validity of the calculated GFR & GFRAA in patients over 70 years has not been determined. Clinical correlation is essential. Serum or plasma urea nitroge n measurement (mass/volume)on 01-02-2022 Urea nitrogen [Mass/Vol] 76 mg/dL 7-18 [facility] Work Phone: Squamous epithelial cells de tection in urine sediment by light microscopyon 01-02-2022 Epithelial cells.squamous LM Ql (Urine sed) 0-5 SEEN /hpf [facility] Work Phone: Thin prep Papanicolaou smear with manual screeningon 01-02-2022 Thin prep Papanicolaou smear with manual screening 14 U/L 15-37 [facility] Work Phone: Thin prep Papanicolaou smear with manual screening 15 5-15 [facility] Work Phone: Urine blood detectionon 12-15 RBC Ql (U) Negative Negative [facility] Work Phone: RBC Ql (U) 0 SEEN /hpf [facility] Work Phone: Urine clarityon 01-02-2022 Clarity (U) Sl. Cloudy Clear [facility] Work Phone: Urine color determinationon 01-02-2022 Color (U) Yellow Yellow [facility] Work Phone: Urine glucose detectionon Glucose Ql (U) 1000 mg/dl Normal [facility] Work Phone: [phone] Urine leukocyte esterase det ection by dipstickon 01-02-2022 Leukocyte esterase Test strip Ql (U) Negative Negative [facility] Work Phone: Urine pHon 01-02-2022 pH (U) 6.0 [pH] [facility] Work Phone: Urine sediment bacteria coun t by microscopy (number/high power field)on 01-02-2022 Bacteria LM.HPF (Urine sed) [#/Area] 0 /[HPF] None Seen [facility] Work Phone: Urine specific gravity measu rementon 01-02-2022 Specific gravity (U) [Rel density] 1.015 [facility] Work Phone: Urobilinogen Auto test strip Ql (U)on 01-02-2022 Urobilinogen Ql (U) Normal mg/dl Normal [facility] Work Phone: Vital signson 01-02-2022 Oxygen saturation in Blood 45 % 50-70 [facility] Work Phone: pH measurementon 01-02-2022 pH (Unsp spec) 7.39 [pH] 7.32-7.42 [facility] Work Phone: CNTHERAPYon 12-28-2021 CNTHERAPY OT/PT/Speech Visit (PTWS) -------- COLEMAN DAVIES ([id number]) 1950 M Date Time Provider Department 12/28/21 11:00 AM MARIA ELENA ZHONG PTTYREE Date Time Provider Department Center 12/28/2021 11:00 AM [id number] ELENA ZHONG PTTYREE [facility] Reason for Visit: PT Eval [747] 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 Invalid Interpretation Code [facility] Work Phone: NEGATED: Highlighted Kaci smoking status Tobacco smoking status Invalid Interpretation Code [facility] Work Phone: No Panel Informationon 09-04 Hepatitis B Surface Antibody Non-Reactive [facility] Work Phone: Comment on above: Non Reactive: Incons istent with immunity less than <10 mIU/mL Reactive: Consistent with immunity greater than or equal to 10 mIU/mL Rubella IgG Antibody Reactive Nonreactive [facility] Work Phone: Comment on above: Antibody Results Int erpretation of Immune Status Non Reactive Presumed Non-Immune Equivocal Equivocal Reactive Presumed Immune Serum Varicella zoster virus IgG antibody assay by immunoassay (units/volume)on 09-04-2021 VZV IgG IA Qn (S) > 4000 index Immune >165 [facility] Work Phone: Comment on above: Negative <135 Equivo elder 135 - 165 Positive >165A positive result generally indicates exposure to thepathogen or administration of specific immunoglobulins,but it is not indication of active infection or stageof disease. Serum measles virus IgG anti body assay (units/volume)on 09-04-2021 MeV IgG Qn (S) 113.0 AU/mL Immune >16.4 [facility] Work Phone: Comment on above: Negative <13.5 Equiv ocal 13.5 - 16.4 Positive >16.4Presence of antibodies to Rubeola is presumptive evidenceof immunity except when acute infection is suspected.Performed at: [address] [id number] Director: Ciaran Sethi PhD, Phone: [phone] Serum mumps virus IgG antibo dy assay (units/volume)on 09-04-2021 MuV IgG Qn (S) < 9.0 AU/mL Immune >10.9 [facility] Work Phone: Comment on above: Negative <9.0 Equivo elder 9.0 - 10.9 Positive >10.9A positive result generally indicates past exposure toMumps virus or previous vaccination. Vital Signs Date Time Vital Sign Value Performing Clinician Facility 05-12-2025 15:32-0400 Body temperature 98.2 [degF] Dr. Briseyda Sinclair MD Work Phone: [facility] 05-12-2025 15:32-0400 Body weight 74.[address] Briseyda Sinclair MD Work Phone: [facility] 05-12-2025 15:32-0400 Diastolic blood pressure 71 mm[Hg] Dr. Briseyda Sinclair MD Work Phone: [facility] 05-12-2025 15:32-0400 Heart rate 79 /min Dr. Briseyda Sinclair MD Work Phone: [facility] 05-12-2025 15:32-0400 Respiratory rate 18 /min Dr. Briseyda Sinclair MD Work Phone: [facility] 05-12-2025 15:32-0400 SaO2% (BldA) [Mass fraction] 100 % Dr. Briseyda Sinclair MD Work Phone: [facility] 05-12-2025 15:32-0400 Systolic blood pressure 144 mm[Hg] Dr. Briseyda Sinclair MD Work Phone: [facility] 05-03-2025 13:52-0400 Body height 182.[address] Briseyda Sinclair MD Work Phone: [facility] 05-03-2025 13:52-0400 Body mass index (BMI) [Ratio] 22.2 kg/m2 Dr. Briseyda Sinclair MD Work Phone: [facility] 05-03-2025 13:52-0400 Body temperature 98 [degF] Dr. Briseyda Sinclair MD Work Phone: [facility] 05-03-2025 13:52-0400 Body weight 74.[address] Briseyda Sinclair MD Work Phone: [facility] 05-03-2025 13:52-0400 Diastolic blood pressure 64 mm[Hg] Dr. Briseyda Sinclair MD Work Phone: [facility] 05-03-2025 13:52-0400 Heart rate 76 /min Dr. Briseyda Sinclair MD Work Phone: [facility] 05-03-2025 13:52-0400 Respiratory rate 16 /min Dr. Briseyda Sinclair MD Work Phone: [facility] 05-03-2025 13:52-0400 SaO2% (BldA) [Mass fraction] 98 % Dr. Briseyda Sinclair MD Work Phone: [facility] 05-03-2025 13:52-0400 Systolic blood pressure 135 mm[Hg] Dr. Briseyda Sinclair MD Work Phone: [facility] 04-28-2025 14:10-0400 Body height 182.[address] Briseyda Sinclair MD Work Phone: [facility] 04-28-2025 14:10-0400 Body mass index (BMI) [Ratio] 22.1 kg/m2 Dr. Briseyda Sinclair MD Work Phone: [facility] 04-28-2025 14:10-0400 Body weight 73.[address] Briseyda Sinclair MD Work Phone: [facility] 04-28-2025 14:10-0400 Diastolic blood pressure 60 mm[Hg] Dr. Briseyda Sinclair MD Work Phone: [facility] 04-28-2025 14:10-0400 Heart rate 79 /min Dr. Briseyda Sinclair MD Work Phone: [facility] 04-28-2025 14:10-0400 Inhaled oxygen flow rate 95 L/min Dr. Briseyda Sinclair MD Work Phone: [facility] 04-28-2025 14:10-0400 Respiratory rate 18 /min Dr. Briseyda Sinclair MD Work Phone: [facility] 04-28-2025 14:10-0400 Systolic blood pressure 96 mm[Hg] Dr. Briseyda Sinclair MD Work Phone: [facility] 04-12-2025 12:59-0400 Body height 182.[address] Briseyda Sinclair MD Work Phone: [facility] 04-12-2025 12:59-0400 Body mass index (BMI) [Ratio] 22.1 kg/m2 Dr. Briseyda Sinclair MD Work Phone: [facility] 04-12-2025 12:59-0400 Body temperature 98.2 [degF] Dr. Briseyda Sinclair MD Work Phone: [facility] 04-12-2025 12:59-0400 Body weight 74.[address] Briseyda Sinclair MD Work Phone: [facility] 04-12-2025 12:59-0400 Diastolic blood pressure 74 mm[Hg] Dr. Briseyda Sinclair MD Work Phone: [facility] 04-12-2025 12:59-0400 Heart rate 87 /min Dr. Briseyda Sinclair MD Work Phone: [facility] 04-12-2025 12:59-0400 Respiratory rate 16 /min Dr. Briseyda Sinclair MD Work Phone: [facility] 04-12-2025 12:59-0400 SaO2% (BldA) [Mass fraction] 87 % Dr. Briseyda Sinclair MD Work Phone: [facility] 04-12-2025 12:59-0400 Systolic blood pressure 124 mm[Hg] Dr. Briseyda Sinclair MD Work Phone: [facility] 03-29-2025 10:16-0400 Body temperature 97.8 [degF] Dr. Briseyda Sinclair MD Work Phone: [facility] 03-29-2025 10:16-0400 Diastolic blood pressure 73 mm[Hg] Dr. Briseyda Sinclair MD Work Phone: [facility] 03-29-2025 10:16-0400 Heart rate 75 /min Dr. Briseyda Sinclair MD Work Phone: [facility] 03-29-2025 10:16-0400 Respiratory rate 14 /min Dr. Briseyda Sinclair MD Work Phone: [facility] 03-29-2025 10:16-0400 SaO2% (BldA) [Mass fraction] 98 % Dr. Briseyda Sinclair MD Work Phone: [facility] 03-29-2025 10:16-0400 Systolic blood pressure 151 mm[Hg] Dr. Briseyda Sinclair MD Work Phone: [facility] 03-29-2025 06:20-0400 Body height 182.[address] Briseyda Sinclair MD Work Phone: [facility] 03-29-2025 06:20-0400 Body mass index (BMI) [Ratio] 21.6 kg/m2 Dr. Briseyda Sinclair MD Work Phone: [facility] 03-29-2025 06:20-0400 Body weight 72.[address] Briseyda Sinclair MD Work Phone: [facility] 03-04-2025 12:24-0400 Body temperature 97.81 [degF] Simba Blackman MD Work Phone: [facility] [place] 03-04-2025 12:24-0400 Body weight 75.66 kg Simba Blackman MD Work Phone: [facility] [place] 03-04-2025 12:24-0400 Diastolic blood pressure 69 mm[Hg] Simba Blackman MD Work Phone: [facility] [place] 03-04-2025 12:24-0400 Heart rate 80 /min Simba Blackman MD Work Phone: [facility] [place] 03-04-2025 12:24-0400 Systolic blood pressure 121 mm[Hg] Simba Blackman MD Work Phone: [facility] [place] 02-11-2025 13:27-0400 Body height 182.[address] Briseyda Sinclair MD Work Phone: [facility] 02-11-2025 13:27-0400 Body mass index (BMI) [Ratio] 23.1 kg/m2 Dr. Briseyda Sinclair MD Work Phone: [facility] 02-11-2025 13:27-0400 Body temperature 98.2 [degF] Dr. Briseyda Sinclair MD Work Phone: [facility] 02-11-2025 13:27-0400 Body weight 77.[address] Briseyda Sinclair MD Work Phone: [facility] 02-11-2025 13:27-0400 Diastolic blood pressure 67 mm[Hg] Dr. Briseyda Sinclair MD Work Phone: [facility] 02-11-2025 13:27-0400 Heart rate 82 /min Dr. Briseyda Sinclair MD Work Phone: [facility] 02-11-2025 13:27-0400 Respiratory rate 15 /min Dr. Briseyda Sinclair MD Work Phone: [facility] 02-11-2025 13:27-0400 SaO2% (BldA) [Mass fraction] 98 % Dr. Briseyda Sinclair MD Work Phone: [facility] 02-11-2025 13:27-0400 Systolic blood pressure 126 mm[Hg] Dr. Briseyda Sinclair MD Work Phone: [facility] 02-06-2025 11:42-0400 Body mass index (BMI) [Ratio] 22.5 kg/m2 Dr. Briseyda Sinclair MD Work Phone: [facility] 02-06-2025 11:42-0400 Body temperature 98.6 [degF] Dr. Briseyda Sinclair MD Work Phone: [facility] 02-06-2025 11:42-0400 Body weight 75.[address] Briseyda Sinclair MD Work Phone: [facility] 02-06-2025 11:42-0400 Diastolic blood pressure 80 mm[Hg] Dr. Briseyda Sinclair MD Work Phone: [address]24-2025 11:42-0400 Heart rate 74 /min Dr. Briseyda Sinclair MD Work Phone: [facility] 02-06-2025 11:42-0400 Respiratory rate 16 /min Dr. Briseyda Sinclair MD Work Phone: [facility] 02-06-2025 11:42-0400 SaO2% (BldA) [Mass fraction] 98 % Dr. Briseyda Sinclair MD Work Phone: [facility] 02-06-2025 11:42-0400 Systolic blood pressure 124 mm[Hg] Dr. Briseyda Sinclair MD Work Phone: [facility] 02-01-2025 13:49-0400 Body height 182.[address] Briseyda Sinclair MD Work Phone: [facility] 02-01-2025 13:49-0400 Body mass index (BMI) [Ratio] 22.8 kg/m2 Dr. Briseyda Sinclair MD Work Phone: [facility] 02-01-2025 13:49-0400 Body temperature 98.6 [degF] Dr. Briseyda Sinclair MD Work Phone: [facility] 02-01-2025 13:49-0400 Body weight 76.[address] Briseyda Sinclair MD Work Phone: [facility] 02-01-2025 13:49-0400 Diastolic blood pressure 72 mm[Hg] Dr. Briseyda Sinclair MD Work Phone: [facility] 02-01-2025 13:49-0400 Heart rate 78 /min Dr. Briseyda Sinclair MD Work Phone: [facility] 02-01-2025 13:49-0400 Respiratory rate 16 /min Dr. Briseyda Sinclair MD Work Phone: [facility] 02-01-2025 13:49-0400 SaO2% (BldA) [Mass fraction] 98 % Dr. Briseyda Sinclair MD Work Phone: [facility] 02-01-2025 13:49-0400 Systolic blood pressure 138 mm[Hg] Dr. Briseyda Sinclair MD Work Phone: [facility] 01-27-2025 14:53-0400 Body height 182.[address] Briseyda Sinclair MD Work Phone: [facility] 01-27-2025 14:53-0400 Body mass index (BMI) [Ratio] 23.1 kg/m2 Dr. Briseyda Sinclair MD Work Phone: [facility] 01-27-2025 14:53-0400 Body temperature 98.4 [degF] Dr. Briseyda Sinclair MD Work Phone: [facility] 01-27-2025 14:53-0400 Body weight 77.[address] Briseyda Sinclair MD Work Phone: [facility] 01-27-2025 14:53-0400 Diastolic blood pressure 61 mm[Hg] Dr. Briseyda Sinclair MD Work Phone: [facility] 01-27-2025 14:53-0400 Heart rate 75 /min Dr. Briseyda Sinclair MD Work Phone: [facility] 01-27-2025 14:53-0400 Respiratory rate 16 /min Dr. Briseyda Sinclair MD Work Phone: [facility] 01-27-2025 14:53-0400 SaO2% (BldA) [Mass fraction] 96 % Dr. Briseyda Sinclair MD Work Phone: [facility] 01-27-2025 14:53-0400 Systolic blood pressure 115 mm[Hg] Dr. Briseyda Sinclair MD Work Phone: [facility] 01-14-2025 11:50-0400 Body temperature 97.7 [degF] Dr. Briseyda Sinclair MD Work Phone: [facility] 01-14-2025 11:50-0400 Diastolic blood pressure 71 mm[Hg] Dr. Briseyda Sinclair MD Work Phone: [facility] 01-14-2025 11:50-0400 Heart rate 81 /min Dr. Briseyda Sinclair MD Work Phone: [facility] 01-14-2025 11:50-0400 Respiratory rate 16 /min Dr. Briseyda Sinclair MD Work Phone: [facility] 01-14-2025 11:50-0400 SaO2% (BldA) [Mass fraction] 96 % Dr. Briseyda Sinclair MD Work Phone: [facility] 01-14-2025 11:50-0400 Systolic blood pressure 150 mm[Hg] Dr. Briseyda Sinclair MD Work Phone: [facility] 01-14-2025 00:39-0400 Body mass index (BMI) [Ratio] 21.6 kg/m2 Dr. Briseyda Sinclair MD Work Phone: [facility] 01-13-2025 15:51-0400 Body weight 72.[address] Briseyda Sinclair MD Work Phone: [facility] 11-09-2024 13:21-0500 Body height 182.[address] Briseyda Sinclair MD Work Phone: [facility] 11-09-2024 13:21-0500 Body mass index (BMI) [Ratio] 23.4 kg/m2 Dr. Briseyda Sinclair MD Work Phone: [facility] 11-09-2024 13:21-0500 Body weight 78.[address] Briseyda Sinclair MD Work Phone: [facility] 11-09-2024 13:21-0500 Diastolic blood pressure 87 mm[Hg] Dr. Briseyda Sinclair MD Work Phone: [facility] 11-09-2024 13:21-0500 Heart rate 77 /min Dr. Briseyda Sinclair MD Work Phone: [facility] 11-09-2024 13:21-0500 Respiratory rate 16 /min Dr. Briseyda Sinclair MD Work Phone: [facility] 11-09-2024 13:21-0500 SaO2% (BldA) [Mass fraction] 96 % Dr. Briseyda Sinclair MD Work Phone: [facility] 11-09-2024 13:21-0500 Systolic blood pressure 155 mm[Hg] Dr. Briseyda Sinclair MD Work Phone: [facility] 08-20-2024 08:24-0500 Body mass index (BMI) [Ratio] 23.8 kg/m2 Dr. Briseyda Sinclair MD Work Phone: [facility] 08-20-2024 08:24-0500 Body weight 79.[address] Briseyda Sinclair MD Work Phone: [facility] 08-10-2024 13:34-0500 Body mass index (BMI) [Ratio] 23.5 kg/m2 Dr. Briseyda Sinclair MD Work Phone: [facility] 08-10-2024 13:34-0500 Body temperature 98 [degF] Dr. Briseyda Sinclair MD Work Phone: [facility] 08-10-2024 13:34-0500 Body weight 78.[address] Briseyda Sinclair MD Work Phone: [facility] 08-10-2024 13:34-0500 Diastolic blood pressure 76 mm[Hg] Dr. Briseyda Sinclair MD Work Phone: [facility] 08-10-2024 13:34-0500 Heart rate 80 /min Dr. Briseyda Sinclair MD Work Phone: [facility] 08-10-2024 13:34-0500 Respiratory rate 16 /min Dr. Briseyda Sinclair MD Work Phone: [facility] 08-10-2024 13:34-0500 SaO2% (BldA) [Mass fraction] 96 % Dr. Briseyda Sinclair MD Work Phone: [facility] 08-10-2024 13:34-0500 Systolic blood pressure 124 mm[Hg] Dr. Briseyda Sinclair MD Work Phone: [facility] 12-03-2023 07:40-0400 Body temperature 96.6 [degF] Dr. Briseyda Sinclair Work Phone: [facility] 12-03-2023 07:40-0400 Diastolic blood pressure 57 mm[Hg] Dr. Briseyda Sinclair Work Phone: [facility] 12-03-2023 07:40-0400 Heart rate 66 /min Dr. Briseyda Sinclair Work Phone: [facility] 12-03-2023 07:40-0400 Respiratory rate 18 /min Dr. Briseyda Sinclair Work Phone: [facility] 12-03-2023 07:40-0400 SaO2% (BldA) [Mass fraction] 96 % Dr. Briseyda Sinclair Work Phone: [facility] 12-03-2023 07:40-0400 Systolic blood pressure 108 mm[Hg] Dr. Briseyda Sinclair Work Phone: [facility] 12-03-2023 07:24-0400 Inhaled oxygen flow rate 2 L/min Dr. Briseyda Sinclair Work Phone: [facility] 12-03-2023 06:00-0400 Body height 182.[address] Briseyda Sinclair Work Phone: [facility] 12-03-2023 06:00-0400 Body mass index (BMI) [Ratio] 21.7 kg/m2 Dr. Brsieyda Sinclair Work Phone: [facility] 12-03-2023 06:00-0400 Body weight 72.[address] Briseyda Sinclair Work Phone: [facility] 11-22-2023 13:41-0500 Body height 182.[address] Briseyda Sinclair Work Phone: [facility] 11-22-2023 13:41-0500 Body mass index (BMI) [Ratio] 23.3 kg/m2 Dr. Briseyda Sinclair Work Phone: [facility] 11-22-2023 13:41-0500 Body weight 78.[address] Briseyda Sinclair Work Phone: [facility] 11-22-2023 13:41-0500 Diastolic blood pressure 76 mm[Hg] Dr. Briseyda Sinclair Work Phone: [facility] 11-22-2023 13:41-0500 Respiratory rate 18 /min Dr. Briseyda Sinclair Work Phone: [facility] 11-22-2023 13:41-0500 Systolic blood pressure 153 mm[Hg] Dr. Briseyda Sinclair Work Phone: [facility] 10-07-2023 14:00-0500 Body mass index (BMI) [Ratio] 23.2 kg/m2 Dr. Briseyda Sinclair Work Phone: [facility] 10-07-2023 14:00-0500 Body temperature 97.8 [degF] Dr. Briseyda Sinclair Work Phone: [facility] 10-07-2023 14:00-0500 Body weight 77.[address] Briseyda Sinclair Work Phone: [facility] 10-07-2023 14:00-0500 Diastolic blood pressure 73 mm[Hg] Dr. Briseyda Sinclair Work Phone: [facility] 10-07-2023 14:00-0500 Heart rate 85 /min Dr. Briseyda Sinclair Work Phone: [facility] 10-07-2023 14:00-0500 Respiratory rate 16 /min Dr. Briseyda Sinclair Work Phone: [facility] 10-07-2023 14:00-0500 SaO2% (BldA) [Mass fraction] 97 % Dr. Briseyda Sinclair Work Phone: [facility] 10-07-2023 14:00-0500 Systolic blood pressure 121 mm[Hg] Dr. Briseyda Sinclair Work Phone: [facility] 08-29-2023 06:07-0500 Body temperature 97.8 [degF] Dr. Briseyda Sinclair Work Phone: [facility] 08-29-2023 06:07-0500 Diastolic blood pressure 85 mm[Hg] Dr. Briseyda Sinclair Work Phone: [facility] 08-29-2023 06:07-0500 Heart rate 91 /min Dr. Briseyda Sinclair Work Phone: [facility] 08-29-2023 06:07-0500 Respiratory rate 12 /min Dr. Briseyda Sinclair Work Phone: [facility] 08-29-2023 06:07-0500 SaO2% (BldA) [Mass fraction] 98 % Dr. Briseyda Sinclair Work Phone: [facility] 08-29-2023 06:07-0500 Systolic blood pressure 155 mm[Hg] Dr. Briseyda Sinclair Work Phone: [facility] 08-24-2023 07:06-0500 Body height 182.[address] Briseyda Sinclair Work Phone: [facility] 08-24-2023 07:06-0500 Body mass index (BMI) [Ratio] 21.9 kg/m2 Dr. Briseyda Sinclair Work Phone: [facility] 08-24-2023 07:06-0500 Body temperature 97.6 [degF] Dr. Briseyda Sinclair Work Phone: [facility] 08-24-2023 07:06-0500 Body weight 73.[address] Briseyda Sinclair Work Phone: [facility] 08-24-2023 07:06-0500 Diastolic blood pressure 80 mm[Hg] Dr. Briseyda Sinclair Work Phone: [facility] 08-24-2023 07:06-0500 Heart rate 83 /min Dr. Briseyda Sinclair Work Phone: [facility] 08-24-2023 07:06-0500 Respiratory rate 14 /min Dr. Briseyda Sinclair Work Phone: [facility] 08-24-2023 07:06-0500 SaO2% (BldA) [Mass fraction] 99 % Dr. Briseyda Sinclair Work Phone: [facility] 08-24-2023 07:06-0500 Systolic blood pressure 153 mm[Hg] Dr. Briseyda Sinclair Work Phone: [facility] 08-20-2023 05:44-0500 Diastolic blood pressure 71 mm[Hg] Dr. Briseyda Sinclair Work Phone: [facility] 08-20-2023 05:44-0500 Heart rate 75 /min Dr. Briseyda Sinclair Work Phone: [facility] 08-20-2023 05:44-0500 Respiratory rate 14 /min Dr. Briseyda Sinclair Work Phone: [facility] 08-20-2023 05:44-0500 SaO2% (BldA) [Mass fraction] 99 % Dr. Briseyda Sinclair Work Phone: [facility] 08-20-2023 05:44-0500 Systolic blood pressure 150 mm[Hg] Dr. Briseyda Sinclair Work Phone: [facility] 08-20-2023 03:33-0500 Body temperature 97.6 [degF] Dr. Briseyda Sinclair Work Phone: [facility] 08-20-2023 03:30-0500 Body height 182.[address] Briseyda Sinclair Work Phone: [facility] 08-20-2023 03:30-0500 Body mass index (BMI) [Ratio] 22.1 kg/m2 Dr. Briseyda Sinclair Work Phone: [facility] 08-20-2023 03:30-0500 Body weight [address] Briseyda Sinclair Work Phone: [facility] 08-13-2023 08:37-0500 Body mass index (BMI) [Ratio] 23.6 kg/m2 Dr. Briseyda Sinclair Work Phone: [facility] 08-13-2023 08:37-0500 Body temperature 98.4 [degF] Dr. Briseyda Sinclair Work Phone: [facility] 08-13-2023 08:37-0500 Body weight 78.[address] Briseyda Sinclair Work Phone: [facility] 08-13-2023 08:37-0500 Diastolic blood pressure 76 mm[Hg] Dr. Briseyda Sinclair Work Phone: [facility] 08-13-2023 08:37-0500 Heart rate 92 /min Dr. Briseyda Sinclair Work Phone: [facility] 08-13-2023 08:37-0500 Respiratory rate 12 /min Dr. Briseyda Sinclair Work Phone: [facility] 08-13-2023 08:37-0500 SaO2% (BldA) [Mass fraction] 96 % Dr. Briseyda Sinclair Work Phone: [facility] 08-13-2023 08:37-0500 Systolic blood pressure 154 mm[Hg] Dr. Briseyda Sinclair Work Phone: [facility] 05-22-2023 13:03-0400 Body height 182.[address] Briseyda Sinclair Work Phone: [facility] 05-22-2023 13:03-0400 Body mass index (BMI) [Ratio] 23.1 kg/m2 Dr. Briseyda Sinclair Work Phone: [facility] 05-22-2023 13:03-0400 Body weight 77.[address] Briseyda Sinclair Work Phone: [facility] 05-22-2023 13:03-0400 Diastolic blood pressure 66 mm[Hg] Dr. Briseyda Sinclair Work Phone: [facility] 05-22-2023 13:03-0400 Heart rate 77 /min Dr. Briseyda Sinclair Work Phone: [facility] 05-22-2023 13:03-0400 Respiratory rate 16 /min Dr. Briseyda Sinclair Work Phone: [facility] 05-22-2023 13:03-0400 Systolic blood pressure 106 mm[Hg] Dr. Briseyda Sinclair Work Phone: [facility] 04-01-2023 14:21-0400 Body mass index (BMI) [Ratio] 23.5 kg/m2 Dr. Briseyda Sinclair Work Phone: [facility] 04-01-2023 14:21-0400 Body temperature 98.2 [degF] Dr. Briseyda Sinclair Work Phone: [facility] 04-01-2023 14:21-0400 Body weight 78.[address] Briseyda Sinclair Work Phone: [facility] 04-01-2023 14:21-0400 Diastolic blood pressure 68 mm[Hg] Dr. Briseyda Sinclair Work Phone: [facility] 04-01-2023 14:21-0400 Heart rate 78 /min Dr. Briseyda Sinclair Work Phone: [facility] 04-01-2023 14:21-0400 Respiratory rate 16 /min Dr. Briseyda Sinclair Work Phone: [facility] 04-01-2023 14:21-0400 SaO2% (BldA) [Mass fraction] 93 % Dr. Briseyda Sinclair Work Phone: [facility] 04-01-2023 14:21-0400 Systolic blood pressure 120 mm[Hg] Dr. Briseyda Sinclair Work Phone: [facility] 03-07-2023 14:53-0400 Diastolic blood pressure 76 mm[Hg] Dr. Briseyda Sinclair Work Phone: [facility] 03-07-2023 14:53-0400 Heart rate 77 /min Dr. Briseyda Sinclair Work Phone: [facility] 03-07-2023 14:53-0400 Systolic blood pressure 133 mm[Hg] Dr. Briseyda Sinclair Work Phone: [facility] 09-24-2022 13:35-0500 Body temperature 97.8 [degF] Dr. Briseyda Sinclair Work Phone: [facility] 09-24-2022 13:35-0500 Body weight 79.[address] Briseyda Sinclair Work Phone: [facility] 09-24-2022 13:35-0500 Diastolic blood pressure 83 mm[Hg] Dr. Briseyda Sinclair Work Phone: [facility] 09-24-2022 13:35-0500 Heart rate 83 /min Dr. Briseyda Sinclair Work Phone: [facility] 09-24-2022 13:35-0500 Respiratory rate 16 /min Dr. Briseyda Sinclair Work Phone: [facility] 09-24-2022 13:35-0500 SaO2% (BldA) [Mass fraction] 98 % Dr. Briseyda Sinclair Work Phone: [facility] 09-24-2022 13:35-0500 Systolic blood pressure 131 mm[Hg] Dr. Briseyda Sinclair Work Phone: [facility] 06-01-2022 06:55-0400 Body height 182.[address] Briseyda Sinclair Work Phone: [facility] Work Phone: 06-01-2022 06:55-0400 Body weight 75.[address] Briseyda Sinclair Work Phone: [facility] Work Phone: 05-31-2022 08:01-0400 Body mass index (BMI) [Ratio] 22.6 kg/m2 Dr. Briseyda Sinclair Work Phone: [facility] Work Phone: 05-04-2022 10:06-0400 Body height 182.[address] Briseyda Sinclair Work Phone: [facility] Work Phone: 05-04-2022 10:06-0400 Body mass index (BMI) [Ratio] 22.6 kg/m2 Dr. Briseyda Sinclair Work Phone: [facility] Work Phone: 05-04-2022 10:06-0400 Body weight 75.[address] Briseyda Sinclair Work Phone: [facility] Work Phone: 05-04-2022 10:06-0400 Diastolic blood pressure 75 mm[Hg] Dr. Briseyda Sinclair Work Phone: [facility] Work Phone: 05-04-2022 10:06-0400 Heart rate 86 /min Dr. Briseyda Sinclair Work Phone: [facility] Work Phone: 05-04-2022 10:06-0400 Respiratory rate 18 /min Dr. Briseyda Sinclair Work Phone: [facility] Work Phone: 05-04-2022 10:06-0400 SaO2% (BldA) [Mass fraction] 99 % Dr. Briseyda Sinclair Work Phone: [facility] Work Phone: 05-04-2022 10:06-0400 Systolic blood pressure 119 mm[Hg] Dr. Briseyda Sinclair Work Phone: [facility] Work Phone: 03-21-2022 13:11-0400 Body mass index (BMI) [Ratio] 22.5 kg/m2 Dr. Briseyda Sinclair Work Phone: [facility] Work Phone: 03-21-2022 13:11-0400 Body weight 75.[address] Briseyda Sinclair Work Phone: [facility] Work Phone: 03-21-2022 13:11-0400 Diastolic blood pressure 68 mm[Hg] Dr. Briseyda Sinclair Work Phone: [facility] Work Phone: 03-21-2022 13:11-0400 Heart rate 88 /min Dr. Briseyda Sinclair Work Phone: [facility] Work Phone: 03-21-2022 13:11-0400 Respiratory rate 14 /min Dr. Briseyda Sinclair Work Phone: [facility] Work Phone: 03-21-2022 13:11-0400 SaO2% (BldA) [Mass fraction] 98 % Dr. Briseyda Sinclair Work Phone: [facility] Work Phone: 03-21-2022 13:11-0400 Systolic blood pressure 122 mm[Hg] Dr. Briseyda Sinclair Work Phone: [facility] Work Phone: 03-02-2022 08:31-0400 Body mass index (BMI) [Ratio] 21.7 kg/m2 Dr. Briseyda Sinclair Work Phone: [facility] Work Phone: 03-02-2022 08:31-0400 Body temperature 97.2 [degF] Dr. Briseyda Sinclair Work Phone: [facility] Work Phone: 03-02-2022 08:31-0400 Body weight 72.[address] Briseyda Sinclair Work Phone: [facility] Work Phone: 03-02-2022 08:31-0400 Diastolic blood pressure 59 mm[Hg] Dr. Briseyda Sinclair Work Phone: [facility] Work Phone: 03-02-2022 08:31-0400 Heart rate 82 /min Dr. Briseyda Sinclair Work Phone: [facility] Work Phone: 03-02-2022 08:31-0400 Respiratory rate 18 /min Dr. Briseyda Sinclair Work Phone: [facility] Work Phone: 03-02-2022 08:31-0400 SaO2% (BldA) [Mass fraction] 97 % Dr. Briseyda Sinclair Work Phone: [facility] Work Phone: 03-02-2022 08:31-0400 Systolic blood pressure 113 mm[Hg] Dr. Briseyda Sinclair Work Phone: [facility] Work Phone: 01-24-2022 08:31-0400 Body mass index (BMI) [Ratio] 21.7 kg/m2 Dr. Briesyda Sinclair Work Phone: [facility] Work Phone: 01-24-2022 08:31-0400 Body temperature 97.1 [degF] Dr. Briseyda Sinclair Work Phone: [facility] Work Phone: 01-24-2022 08:31-0400 Body weight 72.[address] Briseyda Sinclair Work Phone: [facility] Work Phone: 01-24-2022 08:31-0400 Diastolic blood pressure 66 mm[Hg] Dr. Briseyda Sinclair Work Phone: [facility] Work Phone: 01-24-2022 08:31-0400 Heart rate 90 /min Dr. Briseyda Sinclair Work Phone: [facility] Work Phone: 01-24-2022 08:31-0400 Respiratory rate 14 /min Dr. Briseyda Sinclair Work Phone: [facility] Work Phone: 01-24-2022 08:31-0400 SaO2% (BldA) [Mass fraction] 99 % Dr. Briseyda Sinclair Work Phone: [facility] Work Phone: 01-24-2022 08:31-0400 Systolic blood pressure 104 mm[Hg] Dr. Briseyda Sinclair Work Phone: [facility] Work Phone: 01-24-2022 08:31-0400 Body height 182.[address] Briseyda Sinclair Work Phone: [facility] Work Phone: 01-24-2022 08:31-0400 Body mass index (BMI) [Ratio] 21.7 kg/m2 Dr. Briseyda Sinclair Work Phone: [facility] Work Phone: 01-24-2022 08:31-0400 Body temperature 97.1 [degF] Dr. Briseyda Sinclair Work Phone: [facility] Work Phone: 01-24-2022 08:31-0400 Body weight 72.[address] Briseyda Sinclair Work Phone: [facility] Work Phone: 01-24-2022 08:31-0400 Diastolic blood pressure 66 mm[Hg] Dr. Briseyda Sinclair Work Phone: [facility] Work Phone: 01-24-2022 08:31-0400 Heart rate 90 /min Dr. Briseyda Sinclair Work Phone: [facility] Work Phone: 01-24-2022 08:31-0400 Respiratory rate 14 /min Dr. Briseyda Sinclair Work Phone: [facility] Work Phone: 01-24-2022 08:31-0400 SaO2% (BldA) [Mass fraction] 99 % Dr. Briseyda Sinclair Work Phone: [facility] Work Phone: 01-24-2022 08:31-0400 Systolic blood pressure 104 mm[Hg] Dr. Briseyda Sinclair Work Phone: [facility] Work Phone: 01-10-2022 11:25-0400 Body mass index (BMI) [Ratio] 21.1 kg/m2 Dr. Briseyda Sinclair Work Phone: [facility] Work Phone: 01-10-2022 11:25-0400 Body temperature 97.3 [degF] Dr. Briseyda Sinclair Work Phone: [facility] Work Phone: 01-10-2022 11:25-0400 Body weight 70.[address] Briseyda Sinclair Work Phone: [facility] Work Phone: 01-10-2022 11:25-0400 Diastolic blood pressure 68 mm[Hg] Dr. Briseyda Sinclair Work Phone: [facility] Work Phone: 01-10-2022 11:25-0400 Heart rate 92 /min Dr. Briseyda Sinclair Work Phone: [facility] Work Phone: 01-10-2022 11:25-0400 Respiratory rate 14 /min Dr. Briseyda Sinclair Work Phone: [facility] Work Phone: 01-10-2022 11:25-0400 SaO2% (BldA) [Mass fraction] 95 % Dr. Briseyda Sinclair Work Phone: [facility] Work Phone: 01-10-2022 11:25-0400 Systolic blood pressure 104 mm[Hg] Dr. Briseyda Sinclair Work Phone: [facility] Work Phone: 01-08-2022 12:30-0400 Diastolic blood pressure 84 mm[Hg] Dr. Briseyda Sinclair Work Phone: [facility] Work Phone: 01-08-2022 12:30-0400 Systolic blood pressure 131 mm[Hg] Dr. Briseyda Sinclair Work Phone: [facility] Work Phone: 01-08-2022 12:00-0400 Body temperature 98 [degF] Dr. Briseyda Sinclair Work Phone: [facility] Work Phone: 01-08-2022 12:00-0400 Heart rate 96 /min Dr. Briseyda Sinclair Work Phone: [facility] Work Phone: 01-08-2022 12:00-0400 Respiratory rate 14 /min Dr. Briseyda Sinclair Work Phone: [facility] Work Phone: 01-08-2022 12:00-0400 SaO2% (BldA) [Mass fraction] 99 % Dr. Briseyda Sinclair Work Phone: [facility] Work Phone: 01-08-2022 08:19-0400 Body height 182.[address] Briseyda Sinclair Work Phone: [facility] Work Phone: 01-08-2022 08:19-0400 Body mass index (BMI) [Ratio] 20.6 kg/m2 Dr. Briseyda Sinclair Work Phone: [facility] Work Phone: 01-08-2022 08:19-0400 Body weight 68.[address] Briseyda Sinclair Work Phone: [facility] Work Phone: 01-04-2022 11:00-0400 Heart rate 92 /min Dr. Briseyda Sinclair Work Phone: [facility] Work Phone: 01-04-2022 08:27-0400 Body temperature 97.7 [degF] Dr. Briseyda Sinclair Work Phone: [facility] Work Phone: 01-04-2022 08:27-0400 Diastolic blood pressure 80 mm[Hg] Dr. Briseyda Sinclair Work Phone: [facility] Work Phone: 01-04-2022 08:27-0400 Respiratory rate 16 /min Dr. Briseyda Sinclair Work Phone: [facility] Work Phone: 01-04-2022 08:27-0400 SaO2% (BldA) [Mass fraction] 97 % Dr. Briseyda Sinclair Work Phone: [facility] Work Phone: 01-04-2022 08:27-0400 Systolic blood pressure 141 mm[Hg] Dr. Briseyda Sinclair Work Phone: [facility] Work Phone: 01-02-2022 17:08-0400 Body weight 70.[address] Briseyda Sinclair Work Phone: [facility] Work Phone: 01-02-2022 12:04-0400 Body mass index (BMI) [Ratio] 20.9 kg/m2 Dr. Briseyda Sinclair Work Phone: [facility] Work Phone: 01-02-2022 11:00-0400 Body temperature 97.8 [degF] Dr. Briseyda Sinclair Work Phone: [facility] Work Phone: 01-02-2022 11:00-0400 Diastolic blood pressure 76 mm[Hg] Dr. Briseyda Sinclair Work Phone: [facility] Work Phone: 01-02-2022 11:00-0400 Heart rate 94 /min Dr. Briseyda Sinclair Work Phone: [facility] Work Phone: 01-02-2022 11:00-0400 Respiratory rate 12 /min Dr. Briseyda Sinclair Work Phone: [facility] Work Phone: 01-02-2022 11:00-0400 SaO2% (BldA) [Mass fraction] 97 % Dr. Briseyda Sinclair Work Phone: [facility] Work Phone: 01-02-2022 11:00-0400 Systolic blood pressure 149 mm[Hg] Dr. Briseyda Sinclair Work Phone: [facility] Work Phone: 01-02-2022 06:53-0400 Body height 182.[address] Briseyda Sinclair Work Phone: [facility] Work Phone: 01-02-2022 06:53-0400 Body mass index (BMI) [Ratio] 21.4 kg/m2 Dr. Briseyda Sinclair Work Phone: [facility] Work Phone: 01-02-2022 06:53-0400 Body weight 71.[address] Briseyda Sinclair Work Phone: [facility] Work Phone: 09-20-2021 08:30-0500 Body mass index (BMI) [Ratio] 23.8 kg/m2 Dr. Briseyda Sinclair Work Phone: [facility] Work Phone: 09-20-2021 08:30-0500 Body temperature 98.5 [degF] Dr. Briseyda Sinclair Work Phone: [facility] Work Phone: 09-20-2021 08:30-0500 Body weight 79.[address] Briseyda Sinclair Work Phone: [facility] Work Phone: 09-20-2021 08:30-0500 Diastolic blood pressure 80 mm[Hg] Dr. Briseyda Sinclair Work Phone: [facility] Work Phone: 09-20-2021 08:30-0500 Heart rate 72 /min Dr. Briseyda Sinclair Work Phone: [facility] Work Phone: 09-20-2021 08:30-0500 Respiratory rate 14 /min Dr. Briseyda Sinclair Work Phone: [facility] Work Phone: 09-20-2021 08:30-0500 SaO2% (BldA) [Mass fraction] 99 % Dr. Briseyda Sinclair Work Phone: [facility] Work Phone: 09-20-2021 08:30-0500 Systolic blood pressure 132 mm[Hg] Dr. Briseyda Sinclair Work Phone: [facility] Work Phone: NEGATED: Highlighted [id number] 13:39-0400 Body height 182.88 cm Nisha Taylor [employer] [facility] Work Phone: NEGATED: Highlighted [id number] 13:39-0400 Body height 183 cm Nisha Taylor MASTER [employer] [facility] Work Phone: NEGATED: Highlighted [id number] 13:39-0400 Body mass index (BMI) [Ratio] 23.68 kg/m2 Nisha Taylor MASTER [employer] [facility] Work Phone: NEGATED: Highlighted [id number] 13:39-0400 Body weight 78.93 kg Nisha Taylor MASTER [employer] [facility] Work Phone: NEGATED: Highlighted [id number] 13:39-0400 Body weight 79 kg Nisha Taylor MASTER [employer] [facility] Work Phone: Encounters Encounter Date Encounter Type Care Provider Facility Start: 06-14-2025 ambulatory Mookie Werner Facility:[facility] Start: 05-12-2025 End: 05-12-[address] Mookie Werner MD -[facility] Work Phone: Start: 05-12-2025 End: 05-12-[address] Briseyda Sinclair MD Work Phone: -[facility] Start: 05-06-2025 End: 05-06-[address] Briseyda Sinclair MD Work Phone: -Laboratory Specimen Start: 05-06-2025 End: 05-06-[address] Briseyda Sinclair MD -Laboratory Specimen Work Phone: Start: 05-06-2025 End: 05-06-2025 ambulatory Briseyda Sinclair Facility:[facility] Start: 05-03-2025 End: 05-03-[address] Briseyda Sinclair MD -[facility] Work Phone: Start: 05-03-2025 End: 05-03-[address] Briseyda Sinclair MD Work Phone: -[facility] Start: 04-28-2025 End: 04-28-[address] Cuate Garrison MD -[facility] Work Phone: Start: 04-28-2025 End: 04-28-[address] Briseyda Sinclair MD Work Phone: -[facility] Start: 04-12-2025 End: 04-12-2025 Patient encounter procedure Saira VEGA -[facility] Work Phone: Start: 04-12-2025 End: 04-12-[address] Briseyda Sinclair MD Work Phone: -[facility] Start: 03-29-2025 End: 03-29-2025 Emergency department patient visit Dr. Briseyda Sinclair MD Work Phone: -Emergency Department Work Phone: Start: 03-24-2025 End: 05-24-2025 Orders Only Aide Cloud APRN - TITLE ASSISTANT Work Phone: [facility] Comment on above: TIA (transient ische lisset attack) (Primary Dx); Cerebrovascular accident (CVA) due to stenosis of left carotid artery (HCC) PRU Test (P2Y12) Start: 03-12-2025 End: 03-12-2025 ambulatory SIMBA BLACKMAN [facility] Start: 03-09-2025 ambulatory Mookie Werner Facility:[facility] Start: 03-05-2025 End: 03-05-2025 Telephone encounter Simba Blackman MD Work Phone: [facility] - [place] Comment on above: Lab Orders (/) Start: 03-04-2025 End: 03-04-2025 ambulatory [facility] Start: 03-04-2025 End: 03-04-2025 Office outpatient new 45 minutes Simba Blackman MD Work Phone: [facility] Comment on above: Cerebral aneurysm (P rimary Dx); Cerebrovascular accident (CVA) due to stenosis of left carotid artery (HCC) Start: 03-04-2025 End: 06-03-2025 ambulatory [facility] Comment on above: Cerebral infarction due to unspecified occlusion or stenosis of left carotid arteries (HCC) (Primary Dx) Start: 02-19-2025 Non-patient / Non-visit Dr. Vira Garrison MD -[facility] Work Phone: Start: 02-19-2025 ambulatory Saira Sánchez Facility: [facility] Start: 02-19-2025 Registered Referred Saira Sánchez NP -C -Cardiovascular Services Work Phone: Start: 02-17-2025 End: 03-25-2025 Telephone encounter Simba Blackman MD Work Phone: [facility] Comment on above: Referral Start: 02-11-2025 End: 02-11-2025 Patient encounter procedure Saira Sánchez NP-C -[facility] Work Phone: Start: 02-11-2025 End: 02-11-[address] Briseyda Sinclair MD Work Phone: [facility] Work Phone: Start: 02-06-2025 End: 02-06-2025 Patient encounter procedure Brenda Tovar NP-C -[facility] Work Phone: Start: 02-06-2025 End: 02-06-2025 ambulatory Briseyda Sinclair Facility:[facility] Start: 02-01-2025 End: 02-01-[address] Mookie Werner MD -[facility] Work Phone: Start: 02-01-2025 End: 02-01-[address] Briseyda Sinclair MD Work Phone: [facility] Work Phone: Start: 01-27-2025 End: 01-27-[address] Briseyda Sinclair MD -[facility] [place] Work Phone: Start: 01-27-2025 End: 01-27-[address] Briseyda Sinclair MD Work Phone: [facility] Work Phone: Start: 01-25-2025 End: 01-25-[address] Briseyda Sinclair MD Work Phone: [facility] Work Phone: Start: 01-25-2025 End: 01-25-[address] Dony Daily MD -Laboratory Work Phone: Start: 01-25-2025 End: 01-25-2025 ambulatory Dony Daily Facility:[facility] Start: 01-18-2025 End: 01-18-[address] Renae Rubalcava MD -Speech Therapy Work Phone: Start: 01-18-[address] Renae Rubalcava MD -Speech Therapy Work Phone: Start: 01-18-2025 Non-patient / Non-visit Dr. Marcie Sinclair MD -[facility] Start: 01-18-2025 End: 01-18-[address] Briseyda Sinclair MD Work Phone: -Speech Therapy Start: 01-14-2025 Non-patient / Non-visit Dr. Paulina Rubalcava MD -[facility] Work Phone: Start: 01-13-2025 Non-patient / Non-visit Dr. Paulina Rubalcava MD -[facility] Work Phone: Start: 01-13-2025 ambulatory Renae Rubalcava Facility :[facility] Start: 01-13-2025 End: 01-14-2025 Evaluation and management of inpatient Dr. Renae Rubalcava MD -Progressive Care Unit Work Phone: Start: 01-13-2025 ambulatory Mookie Werner Facility:[facility] Start: 01-13-2025 Non-patient / Non-visit Dr. Mookie yun MD -[facility] Start: 01-13-2025 ambulatory [facility] Facility :[facility] Start: 01-13-2025 Non-patient / Non-visit Dr. Shawn LORENZO -[facility] Start: 01-12-2025 Non-patient / Non-visit Dr. Sharonda Kenney MD -[facility] Work Phone: Start: 01-12-2025 ambulatory Briseyda Dottie Facility :[facility] Start: 12-31-2024 End: 12-31-[address] Briseyda Sinclair MD -[facility] Work Phone: Start: 12-30-2024 End: 12-31-[address] Briseyda Sinclair MD Work Phone: [facility] Work Phone: Start: 12-30-2024 End: 12-30-[address] Briseyda Sinclair MD -Laboratory Work Phone: Start: 12-30-2024 End: 12-30-2024 ambulatory Briseyda Sinclair Facility:[facility] Start: 11-18-2024 End: 11-18-[address] Briseyda Sinclair MD Work Phone: [facility] Work Phone: Start: 11-18-2024 End: 11-18-[address] Briseyda Sinclair MD -Laboratory Work Phone: Start: 11-18-2024 End: 11-18-2024 ambulatory Briseyda Sinclair Facility:[facility] Start: 11-09-2024 End: 11-09-[address] Cuate Garrison MD -[facility] Work Phone: Start: 11-09-2024 End: 11-09-2024 ambulatory Briseyda Sinclair Facility:[facility] Start: 10-13-2024 End: 10-13-2024 ambulatory Vito Dejesus Facility:[facility] Start: 10-13-2024 End: 10-13-[address] Vito Dejesus MD -Physical Therapy Work Phone: Start: 09-29-2024 End: 09-29-[address] Vito Dejesus MD -[facility] Work Phone: Start: 09-29-2024 End: 09-29-2024 ambulatory Briseyda Sinclair Facility:[facility] Start: 08-31-2024 End: 08-31-[address] Briseyda Sinclair MD -[facility] Work Phone: Start: 08-31-2024 End: 08-31-2024 ambulatory Briseydareji Sinclair Facility:[facility] Start: 08-20-2024 End: 08-20-[address] Vito Dejesus MD -[facility] Work Phone: Start: 08-20-2024 End: 08-20-2024 ambulatory Vito Dejesus Facility:[facility] Start: 08-11-2024 End: 08-11-[address] Briseyda Sinclair MD -Laboratory Work Phone: Start: 08-10-2024 End: 08-10-[address] Briseyda Sinclair MD -[facility] Work Phone: Start: 08-10-2024 End: 08-11-2024 ambulatory Briseyda Sinclair Facility:[facility] Start: 07-19-2024 End: 07-19-2024 ambulatory [facility] Facility:[facility] Start: 12-03-2023 Non-patient / Non-visit Dr. Marcie Sinclair Work Phone: [facility] Start: 12-03-2023 End: 12-03-2023 Admission to same day surgery center Dr. Briseyda Sinclair Work Phone: [facility]-Endoscopy Work Phone: Start: 12-03-2023 End: 12-03-[address] Briseyda Sinclair Work Phone: [facility] Work Phone: Start: 11-22-2023 End: 11-22-[address] Briseyda Sinclair Work Phone: [facility] Work Phone: Start: 11-19-2023 End: 11-19-[address] Briseyda Sinclair Work Phone: [facility] Work Phone: Start: 11-19-2023 End: 11-19-[address] Brsieyda Sinclair Work Phone: [facility]-Laboratory Work Phone: Start: 11-06-2023 End: 11-06-[address] [facility] Start: 10-07-2023 End: 10-07-[address] Briseyda Sinclair Work Phone: [facility] [place] Work Phone: Start: 08-29-2023 End: 08-29-[address] Briseyda Sinclair Work Phone: [facility] Work Phone: Start: 08-24-2023 End: 08-24-2023 Emergency department patient visit Dr. Briseyda Sinclair [facility] Start: 08-20-2023 End: 08-20-2023 Emergency department patient visit Dr. Briseyda Sinclair Work Phone: [facility]Emer[facility] Work Phone: Start: 08-13-2023 End: 08-13-[address] Briseyda Sinclair Work Phone: [facility] Work Phone: Start: 05-23-2023 End: 05-23-[address] Briseyda Sinclair Work Phone: [facility] Work Phone: Start: 05-23-2023 End: 05-23-[address] Briseyda Sinclair Work Phone: [facility] Work Phone: Start: 05-22-2023 End: 05-22-[address] Briseyda Sinclair Work Phone: [facility] Work Phone: Start: 04-03-2023 End: 04-03-[address] Brise[facility]da [facility] Start: 04-01-2023 End: 04-01-[address] Briseyda Sinclair Work Phone: [facility] Work Phone: Start: 03-07-2023 End: 03-07-[address] Briseyda Sinclair Work Phone: [facility] Work Phone: Start: 02-18-2023 Non-patient / Non-visit Dr. Marcie Sinclair Work Phone: [facility] Start: 02-18-2023 End: 02-18-[address] Briseyda Sinclair Work Phone: [facility] Work Phone: Start: 09-25-2022 End: 09-25-[address] Briseyda Sinclair Work Phone: [facility] Work Phone: Start: 09-25-2022 End: 09-25-[address] Briseyda Sinclair Work Phone: [facility], [facility] Start: 09-24-2022 End: 09-24-[address] Briseyda Sinclair Work Phone: [facility] Start: 06-04-2022 End: 06-04-[address] Briseyda Sinclair Work Phone: [facility] Work Phone: Start: 06-04-2022 End: 06-04-[address] Briseyda Sinclair Work Phone: [facility]Labor[facility] Start: 06-01-2022 End: 06-01-2022 Admission to same day surgery center Dr. Briseyda Sinclair Work Phone: [facility]-Executive Chef/Special Procedures Start: 05-28-2022 Non-patient / Non-visit Dr. Marcie Sinclair Work Phone: [facility] Start: 05-24-2022 End: 05-24-[address] Briseyda Sinclair Work Phone: [facility] Start: 05-16-2022 Non-patient / Non-visit Dr. Marcie Sinclair Work Phone: [facility] Start: 05-16-2022 End: 05-16-[address] Briseyda Sinclair Work Phone: [facility] Work Phone: Start: 05-16-2022 End: 05-16-[address] [facility]ise[facility]da Sinclair [facility] Start: 05-04-2022 End: 05-04-[address] Briseyda Sinclair Work Phone: [facility] Start: 04-16-2022 Non-patient / Non-visit Dr. Marcie Sinclair Work Phone: [facility] Start: 03-21-2022 End: 03-21-[address] Briseyda Sinclair Work Phone: [facility] Start: 03-02-2022 End: 03-02-[address] Briseyda Sinclair Work Phone: [facility] Start: 02-09-2022 Non-patient / Non-visit Dr. Marcie Sinclair Work Phone: [facility] Start: 02-09-2022 End: 02-09-[address] Briseyda Sinclair [facility] Start: 02-09-2022 End: 02-09-2022 ambulatory Maria Elena O'Betito PT [facility] Comment on above: Adhesive capsulitis of right shoulder Start: 02-02-2022 End: 02-02-2022 ambulatory Maria Elena O'Betito PT Work Phone: [facility] Comment on above: Adhesive capsulitis of right shoulder Start: 01-26-2022 End: 01-26-2022 ambulatory Maria Elena O'Betito PT Work Phone: [facility] Comment on above: Adhesive capsulitis of right shoulder Start: 01-24-2022 End: 01-24-[address] Briseyda Sinclair Work Phone: [facility] Start: 01-19-2022 End: 01-19-2022 ambulatory Maria Elena O'Betito PT Work Phone: [facility] Comment on above: Adhesive capsulitis of right shoulder Start: 01-10-2022 End: 01-10-[address] Briseyda Sinclair Work Phone: [facility] Start: 01-08-2022 End: 01-08-2022 Emergency department patient visit Dr. Briseyda Sinclair Work Phone: [facility]Emergency Department Start: 01-04-2022 Non-patient / Non-visit Dr. Marcie Sinclair Work Phone: [facility] Start: 01-03-2022 Non-patient / Non-visit Dr. Marcie Sinclair Work Phone: [facility] Start: 01-02-2022 End: 01-04-2022 Evaluation and management of inpatient Dr. Briseyda Sinclair Work Phone: [facility]-Progressive Care Unit Start: 12-28-2021 End: 12-28-2021 ambulatory Maria Elena O'Betito PT Work Phone: [facility] Comment on above: Adhesive capsulitis of right shoulder (Primary Dx) Start: 12-27-2021 End: 12-27-2021 Pt evaluation Eloy Martinez MD Work Phone: [facility] Work Phone: Start: 09-25-2021 Non-patient / Non-visit Dr. Marcie Sinclair Work Phone: [facility] Start: 09-20-2021 End: 09-20-[address] Briseyda Sinclair Work Phone: [facility] Start: 09-04-[address] Briseyda Sinclair Work Phone: [facility] Start: 09-04-[address] Briseyda Sinclair Work Phone: [facility] Procedures Date Procedure Procedure Detail Performing Clinician Start: 05-06-20[address] diff[address] e detection Dr. Briseyda Sinclair MD Work Phone: Start: 05-06-[address] Briseyda Sinclair MD Work Phone: Start: 05-06-[address] Briseyda Sinclair MD Work Phone: Start: 05-06-[address] Briseyda Sinclair MD Work Phone: Comment on above: Test Ordered: [id number] Stool CultureSalmonella/Shigella Screen Note: CB Final report Reference Range: .Result 1 Comment CB Reference Range: .No Salmonella or Shigella recovered.Campylobacter Culture Note: CB Final report Reference Range: .Result 1 Comment CB Reference Range: .No Campylobacter species isolated.E coli Shiga Toxin EIA Negative CB Reference Range: NegativePerformed at: [facility] [id number] Director: Ciaran Sethi PhD, Phone: [phone] Start: 03-29-2025 X-ray of chest, PA a nd lateral views Dr. Briseyda Sinclair MD Work Phone: Start: 03-29-[address] Briseyda Sinclair MD Work Phone: Start: 01-25-2025 Prostate specific an tigen measurement Dr. Briseyda Sinclair MD Work Phone: Comment on above: This test was perfor med using the [employer] tPSA method. Measured values of a patient sample can vary depending on the testing procedure used. PSA values determined on patient samples by different testing procedures cannot be used interchangeably. If there is a change in PSA assays while monitoring therapy, sequential testing should be performed to confirm baseline values. Start: 01-14-[address] Briseyda Sinclair MD Work Phone: Start: 01-12-2025 MRI of brain without contrast Dr. Briseyda Sinclair MD Work Phone: Start: 01-12-2025 Urnls dip stick/tabl et reagent auto microscopy Dr. Briseyda Sinclair MD Work Phone: Start: 01-12-2025 CT angiography of he ad and neck Dr. Briseyda Sinclair MD Work Phone: Start: 01-12-2025 CT of head without contrast Dr. Briseyda Sinclair MD Work Phone: Start: 12-31-2024 US scan of bladder Dr. Briseyda Sinclair MD Work Phone: Start: 12-30-[address] Briseyda Sinclair MD Work Phone: Start: 12-30-2024 Urnls dip stick/tabl et reagent auto microscopy Dr. Briseyda Sinclair MD Work Phone: Start: 08-31-2024 MRI of lumbar spine Dr. Briseyda Sinclair MD Work Phone: Start: 08-20-2024 X-ray of lumbosacral spine Dr. Briseyda Sinclair MD Work Phone: Start: 12-03-[address] Briseyda Sinclair Work Phone: Start: 08-24-2023 Plain chest X-ray Dr. Hammad Sinclair Work Phone: Start: 05-24-2022 Plain chest X-ray Dr. Hammad Sinclair Work Phone: Start: 05-16-2022 Radionuclide imaging of perfusion of myocardium under exercise stress Dr. Briseyda Sinclair Work Phone: Start: 01-02-2022 Bacteria identified in Blood by Culture Dr. Briseyda Sinclair Work Phone: Start: 01-02-2022 SARS-CoV-2 & FLU Ant igen (Rapid) Dr. Briseyda Sinclair Work Phone: Start: 01-02-2022 Plain chest X-ray Dr. Hammad Sinclair Work Phone: Start: 12-27-2021 End: 12-27-2021 Arthrocentesis aspir&/inj major jt/bursa w/o us Eloy Martinez MD Work Phone: Start: 12-27-2021 End: 12-27-2021 BP scrn no perf at interval Eloy hernandez MD Work Phone: Start: 12-27-2021 End: 12-27-2021 [...] 12-27-2021 End: 12-27-2021 Patient encounter procedure Eloy hernandez MD Work Phone: Start: 12-27-2021 End: 12-27-2021 Radex shoulder complete minimum 2 views Eloy Martinez MD Work Phone: Start: 12-27-2021 End: 12-27-2021 Triamcinolone acet inj NOS Eloy Martinez MD Work Phone: NEGATED: Highlighted rowStart: 12-27-2021 End: 12-27-2021 Documentation of current medications Nisha Taylor LPN Plan of Treatment Date Care Activity Detail Author Start: 05-17-2025 COVID-19 Vaccine ( season) COVID-19 Vaccine () [facility] Start: 05-17-2025 Influenza vaccination Influenza Vacc ine (#1) [facility] Start: 03-29-2025 [facility] Start: 03-29-2025 [facility] Start: 03-05-2025 End: 03-05-2026 PRU Test (P2Y12) PRU Test (P2Y12) Lab Routine Cerebrovascular accident (CVA) due to stenosis of left carotid artery (HCC) Expected: 03/05/2025 (Approximate), Expires: 03/05/2026 [facility] [employer] Work Phone: Comment on above: Expected: 03/05/2025 (Approximate), Expires: 03/05/2026 Start: 03-04-2025 End: 03-04-2026 PRU Test (P2Y12) PRU Test (P2Y12) Lab Routine Cerebral aneurysm Cerebrovascular accident (CVA) due to stenosis of left carotid artery (HCC) Expected: 03/04/2025 (Approximate), Expires: 03/04/2026 [facility] [employer] Work Phone: Comment on above: Expected: 03/04/2025 (Approximate), Expires: 03/04/2026 Start: 02-01-2025 Patient referral [facility] Work Phone: Start: 01-18-2025 Patient referral [facility] Work Phone: Start: 01-14-2025 Patient discharge [facility] Start: 01-13-2025 [facility] Start: 01-13-2025 Admission procedure [facility] Start: 01-12-2025 Following clinical pathway protocol [facility] Start: 01-12-2025 Ambulation without limitation [facility] Start: 01-12-2025 Aspiration precautions [facility] Start: 01-12-2025 Assessment of risk o f venous thromboembolism [facility] Start: 01-12-2025 Cardiac monitoring [facility] Start: 01-12-2025 Care regimes management [facility] Start: 01-12-2025 Catheterization of vein [facility] Start: 01-12-2025 Consultation [facility] Start: 01-12-2025 Elevation of head of bed [facility] Start: 01-12-2025 Exercises [facility] Start: 01-12-2025 Insertion of cathete r into peripheral vein [facility] Start: 01-12-2025 Measuring intake and output [facility] Start: 01-12-2025 Notification of physician [facility] Start: 01-12-2025 Oxygen therapy [facility] Start: 01-12-2025 Patient referral to dietitian [facility] Start: 01-12-2025 Providing care accor ding to standard [facility] Start: 01-12-2025 Referral to occupati onal therapist [facility] Start: 01-12-2025 Referral to service [facility] Start: 01-12-2025 Speech therapy assessment [facility] Start: 01-12-2025 Tobacco use cessatio n education [facility] Start: 01-12-2025 End: 01-12-2025 [facility] Start: 01-12-2025 Vital signs measurements [facility] Start: 01-12-2025 Admission procedure [facility] Start: 01-12-2025 [facility] Start: 01-12-2025 [facility] Start: 08-20-2024 Patient referral [facility] Work Phone: Start: 05-17-2024 COVID-19 Vaccine ( season) COVID-19 Vaccine ( season) [facility] Start: 12-03-2023 Patient discharge [facility] Start: 08-24-2023 [facility] Start: 08-24-2023 Contact precautions [facility] Start: 08-20-2023 [facility] Start: 08-20-2023 [facility] Start: 05-17-2022 Influenza vaccination INFLUENZA (Sea son Ended) [facility] Start: 04-26-2022 COVID-19 VACCINE (4 - Booster for Pfizer series) COVID-19 VACCINE (4 - Booster for Pfizer series) [facility] Start: 01-15-2022 COVID-19 VACCINE (2 - Pfizer 3-dose series) COVID-19 VACCINE (2 - Pfizer 3-dose series) [facility] Start: 01-02-2022 Bacteria identified in Blood by Culture Blood Culture [facility] Work Phone: Start: 12-27-2021 End: 12-27-2021 Patient encounter procedure Appointment [facility] Work Phone: Start: 09-16-2021 ADVANCE DIRECTIVE DISCUSSION ADVANCE DIRECTIVE DISCUSSION [facility] Start: 2015 PNEUMOCOCCAL: 65+ (1 - PCV) PNEUMOCOCCAL: 65+ (1 - PCV) [facility] Start: 2015 PNEUMOVAX AGE 65 AND OVER WITH 5YR LOOKBACK (#1) PNEUMOVAX AGE 65 AND OVER WITH 5YR LOOKBACK (#1) [facility] Start: 2000 SHINGRIX VACCINE (1 of 2) SHINGRIX VACCINE (1 of 2) [facility] Start: 2000 Zoster Vaccines (1 of 2) Zoster Vacc adele (1 of 2) [facility] Start: 1995 COLOGUARD (FIT-DNA) COLOGUARD (FIT-D NA) [facility] Start: 1995 Colonoscopy COLONOSCOPY [facility] Start: 1995 COLORECTAL CANCER SCREENING COLORECTAL CANCER SCREENING [facility] Start: [address] COLONOGRAPHY [facility] Start: 1995 DIABETES SCREEN DIABETES SCREEN [facility] Start: 1995 FECAL OCCULT BLOOD FECAL OCCULT BLOO D [facility] Start: 1995 SIGMOIDOSCOPY SIGMOIDOSCOPY [facility] Start: 1985 LIPID SCREEN LIPID SCREEN [facility] Start: 1969 DTaP/Tdap/Td Vaccine s (1 - Tdap) DTaP/Tdap/Td Vaccines (1 - Tdap) [facility] Start: 1969 Pneumococcal Vaccine : 50+ Years (1 of 2 - PCV) Pneumococcal Vaccine: 50+ Years (1 of 2 - PCV) [facility] Start: 1969 Urine microalbumin profile DTAP,TDAP,TD (1 - Tdap) [facility] Start: 1968 Diabetes: Estimated Glomerular Filtration Rate for Kidney Health Diabetes: Estimated Glomerular Filtration Rate for Kidney Health [facility] Start: 1968 Diabetes: Urine Albumin-Creatinine Ratio for Kidney Health Diabetes: Urine Albumin-Creatinine Ratio for Kidney Health [facility] Start: 1968 HEPATITIS C SCREENING HEPATITIS C SC [facility] Start: 1968 Hepatitis C screening Hepatitis C [facility] Start: 1962 Adult depression screening assessment DEPRESSION SCREENING [facility] Start: 1960 Diabetic foot examination Diabetes: Foot Exam [facility] Start: 1960 Glaucoma screening Diabetes: R etinopathy Screening [facility] Start: 1960 Preventive dental service Diabetes: Dental Exam [facility] Start: 1950 Hemoglobin A1c measurement Diabetes: Hemoglobin A1C [facility] Start: 1950 Lipid panel Lipid Panel [facility] Start: 1950 Medicare Annual Well ness (AWV) Medicare Annual Wellness (AWV) [facility] Start: 1950 Screening for malign ant neoplasm of colon [facility] Cardiac event recording [facility] Colonoscopy [facility] Giardia lamblia Ag [Presence] in Stool by Immunoassay [facility] Lactoferrin [Presenc e] in Stool by Immunoassay [facility] Nucleic acid assay 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 Work Phone: [facility] Payers Date Payer Category Payer Self-pay [id number] 2024 Unknown [id number] 2017 Commercial Managed C are [place] [id number] 2017 Medicare MEDICARE PART A AND B [id number] 2017 Unknown [employer] MEDIC[employer] SUPPLEMENT [id number] 2017-Present [phone] [id number] [place] [address] Indemnity [id number] 2017 Unknown [id number] 2015 Medicare MEDICARE MEDICAR E A AND B [id number] 2015-Present [phone] [place] [address] Medicare [id number] 2015 Medicare [id number] Unknown [id number] 2.16.840.1.168595.3.579 .2.462 Unknown [id number] 2.16.840.1.720497.3.579 .2.462 Unknown [id number] 2.16.840.1.330059.3.579 .2.462 Unknown [id number] 2.16.840.1.422937.3.579 .2.462 Unknown [id number] 2.16.840.1.409489.3.579 .2.462 Unknown [id number] 2.16.840.1.378931.3.579 .2.462 Unknown [id number] 2.16.840.1.474045.3.579 .2.462 Unknown [id number] 2.16840.1.185757.3.579 .2.462 Unknown [id number] 2.840.1.777284.3.579 .2.462 Unknown [id number] 2.840.1.333515.3.579 .2.462 Unknown [id number] 2.840.1.937633.3.579 .2.462 Unknown [id number] 2.16.840.1.462233.3.579 .2.462 Unknown [id number] 2.16.840.1.023479.3.579 .2.462 Unknown [id number] 2.16840.1.603879.3.579 .2.462 Unknown [id number] 2.840.1.504978.3.579 .2.462 Unknown [id number] 2.16.840.1.179581.3.579 .2.462 Unknown [id number] 2.16.840.1.176695.3.579 .2.462 Unknown [id number] 2.16.840.1.332164.3.579 .2.462 Unknown [id number] 2.16.840.1.710527.3.579 .2.462 Unknown [id number] 2.16840.1.517558.3.579 .2.462 Unknown [id number] 2.16.840.1.975058.3.579 .2.462 Unknown [id number] 2.16.840.1.887023.3.579 .2.462 Unknown [id number] 2.16.840.1.113882.3.579 .2.462 Unknown [id number] 2.16.840.1.416760.3.579 .2.462 Unknown [id number] 2.16.840.1.272598.3.579 .2.462 Unknown [id number] 2.16.840.1.614807.3.579 .2.462 Unknown [id number] 2.16.840.1.476298.3.579 .2.462 Unknown [id number] 2.16.840.1.790392.3.579 .2.462 Unknown [id number] 2.16.840.1.973685.3.579 .2.462 Unknown [id number] 2.16.840.1.976065.3.579 .2.462 Unknown [id number] 2.16.840.1.420827.3.579 .2.462 Unknown [id number] 2.16.840.1.488886.3.579 .2.462 Unknown [id number] 2.16.840.1.080202.3.579 .2.462 Unknown [id number] 2.16.840.1.598805.3.579 .2.462 Unknown [id number] 2.16.840.1.569747.3.579 .2.462 Social History Date Type Detail Facility Start: 01-02-2022 End: 11-29-2023 Tobacco smoking status WYIS Tobacco smoking consumption unknown [facility] Start: 1950 Sex Assigned At Male [facility] Start: 12-17-2021 End: 12-27-2021 Exposure to SARS-CoV-2 (event) Not sure [facility] Start: 08-10-2024 End: 03-04-2025 Tobacco smoking status NHIS Ex-smoker (finding) [facility] Start: 12-01-2024 End: 02-17-2025 Sex Male (finding) [facility] Start: 01-14-2025 Tobacco Use Tobacco Use [facility] End: 09-16-2000 History of tobacco use Current smoker [facility] End: 09-16-2000 History of tobacco use Cigarette Smoker [facility] Start: 03-04-2025 Tobacco use and exposure Smokeless tobacco non-user [facility] Start: 03-04-2025 History of Social function [facility] Start: 03-04-2025 Tobacco use panel [facility] Start: 1950 Sex assigned at Not on file [facility] Start: 03-01-2025 Gender identity Identifies as male gender (finding) [facility] NEGATED: Highlighted rowStart: 12-27-2021 End: 12-27-2021 Alcohol use Alcohol use [facility] Work Phone: NEGATED: Highlighted rowStart: 12-27-2021 End: 12-27-2021 Details of drug misuse behavior Details of drug misuse behavior [facility] Work Phone: NEGATED: Highlighted rowStart: 12-27-2021 End: 12-27-2021 Assertion Former smoker [facility] Work Phone: Medical Equipment Procedure Code Equipment Code Equipment Origin al Text Equipment Identifier Dates Pen Needle, Diab etic (Novofine Plus) 32 gauge x 1/6 needle Start: 09-22-2021 Pen Needle, Diab etic (Novofine Plus) 32 gauge x 1/6 needle Start: 09-20-2021 End: 09-20-2021 Pen Needle, Diab etic (Novofine Plus) 32 gauge x 1/6 needle Start: 09-20-2021 End: 09-22-2021 Pen Needle, Diab etic (Novofine Plus) 32 gauge x 1/6 needle Start: 09-22-2021 Pen Needle, Diab etic (Novofine Plus) 32 gauge x 1/6 needle Start: 09-20-2021 End: 09-20-2021 Pen Needle, Diab etic (Novofine Plus) 32 gauge x 1/6 needle Start: 09-20-2021 End: 09-22-2021 Blood Sugar Diagnostic (Onetouch Verio Test Strips) strip Start: 02-14-2022 Pen Needle, Diab etic (Novofine Plus) 32 gauge x 1/6 needle Start: 09-22-2021 Blood Sugar Diagnostic (Onetouch Verio Test Strips) strip Start: 02-13-2022 End: 02-14-2022 Pen Needle, Diab etic (Novofine Plus) 32 gauge x 1/6 needle Start: 09-20-2021 End: 09-20-2021 Pen Needle, Diab etic (Novofine Plus) 32 gauge x 1/6 needle Start: 09-20-2021 End: 09-22-2021 Blood Sugar Diagnostic (Onetouch Verio Test Strips) strip Start: 02-14-2022 Pen Needle, Diab etic (Novofine Plus) 32 gauge x 1/6 needle Start: 09-22-2021 Blood Sugar Diagnostic (Onetouch Verio Test Strips) strip Start: 02-13-2022 End: 02-14-2022 Pen Needle, Diab etic (Novofine Plus) 32 gauge x 1/6 needle Start: 09-20-2021 End: 09-20-2021 Pen Needle, Diab etic (Novofine Plus) 32 gauge x 1/6 needle Start: 09-20-2021 End: 09-22-2021 Blood Sugar Diagnostic (Onetouch Verio Test Strips) strip Start: 02-14-2022 Pen Needle, Diab etic (Novofine Plus) 32 gauge x 1/6 needle Start: 09-22-2021 Blood Sugar Diagnostic (Onetouch Verio Test Strips) strip Start: 02-13-2022 End: 02-14-2022 Pen Needle, Diab etic (Novofine Plus) 32 gauge x 1/6 needle Start: 09-20-2021 End: 09-20-2021 Pen Needle, Diab etic (Novofine Plus) 32 gauge x 1/6 needle Start: 09-20-2021 End: 09-22-2021 Blood Sugar Diagnostic (Onetouch Verio Test Strips) strip Start: 02-14-2022 Pen Needle, Diab etic (Novofine Plus) 32 gauge x 1/6 needle Start: 07-24-2022 Blood Sugar Diagnostic (Onetouch Verio Test Strips) strip Start: 02-13-2022 End: 02-14-2022 Pen Needle, Diab etic (Novofine Plus) 32 gauge x 1/6 needle Start: 09-20-2021 End: 09-20-2021 Pen Needle, Diab etic (Novofine Plus) 32 gauge x 1/6 needle Start: 09-20-2021 End: 09-22-2021 Pen Needle, Diab etic (Novofine Plus) 32 gauge x 1/6 needle Start: 09-22-2021 End: 07-23-2022 Pen Needle, Diab etic (Novofine Plus) 32 gauge x 1/6 needle Start: 07-23-2022 End: 07-24-2022 Blood Sugar Diagnostic (Onetouch Verio Test Strips) strip Start: 04-03-2023 Pen Needle, Diab etic (Novofine Plus) 32 gauge x 1/6 needle Start: 07-24-2022 Blood Sugar Diagnostic (Onetouch Verio Test Strips) strip Start: 02-13-2022 End: 02-14-2022 Blood Sugar Diagnostic (Onetouch Verio Test Strips) strip Start: 02-14-2022 End: 04-03-2023 Pen Needle, Diab etic (Novofine Plus) 32 gauge x 1/6 needle Start: 09-20-2021 End: 09-20-2021 Pen Needle, Diab etic (Novofine Plus) 32 gauge x 1/6 needle Start: 09-20-2021 End: 09-22-2021 Pen Needle, Diab etic (Novofine Plus) 32 gauge x 1/6 needle Start: 09-22-2021 End: 07-23-2022 Pen Needle, Diab etic (Novofine Plus) 32 gauge x 1/6 needle Start: 07-23-2022 End: 07-24-2022 Blood Sugar Diagnostic (Onetouch Verio Test Strips) strip Start: 04-03-2023 Pen Needle, Diab etic (Novofine Plus) 32 gauge x 1/6 needle Start: 08-16-2023 Blood Sugar Diagnostic (Onetouch Verio Test Strips) strip Start: 02-13-2022 End: 02-14-2022 Blood Sugar Diagnostic (Onetouch Verio Test Strips) strip Start: 02-14-2022 End: 04-03-2023 Pen Needle, Diab etic (Novofine Plus) 32 gauge x 1/6 needle Start: 09-20-2021 End: 09-20-2021 Pen Needle, Diab etic (Novofine Plus) 32 gauge x 1/6 needle Start: 09-20-2021 End: 09-22-2021 Pen Needle, Diab etic (Novofine Plus) 32 gauge x 1/6 needle Start: 09-22-2021 End: 07-23-2022 Pen Needle, Diab etic (Novofine Plus) 32 gauge x 1/6 needle Start: 07-23-2022 End: 07-24-2022 Pen Needle, Diab etic (Novofine Plus) 32 gauge x 1/6 needle Start: 07-24-2022 End: 07-24-2023 Pen Needle, Diab etic (Novofine Plus) 32 gauge x 1/6 needle Start: 07-24-2023 End: 08-12-2023 Pen Needle, Diab etic (Novofine Plus) 32 gauge x 1/6 needle Start: 08-12-2023 End: 08-16-2023 Blood Sugar Diagnostic (Onetouch Verio Test Strips) strip Start: 04-03-2023 Pen Needle, Diab etic (Novofine Plus) 32 gauge x 1/6 needle Start: 08-16-2023 Blood Sugar Diagnostic (Onetouch Verio Test Strips) strip Start: 02-13-2022 End: 02-14-2022 Blood Sugar Diagnostic (Onetouch Verio Test Strips) strip Start: 02-14-2022 End: 04-03-2023 Pen Needle, Diab etic (Novofine Plus) 32 gauge x 1/6 needle Start: 09-20-2021 End: 09-20-2021 Pen Needle, Diab etic (Novofine Plus) 32 gauge x 1/6 needle Start: 09-20-2021 End: 09-22-2021 Pen Needle, Diab etic (Novofine Plus) 32 gauge x 1/6 needle Start: 09-22-2021 End: 07-23-2022 Pen Needle, Diab etic (Novofine Plus) 32 gauge x 1/6 needle Start: 07-23-2022 End: 07-24-2022 Pen Needle, Diab etic (Novofine Plus) 32 gauge x 1/6 needle Start: 07-24-2022 End: 07-24-2023 Pen Needle, Diab etic (Novofine Plus) 32 gauge x 1/6 needle Start: 07-24-2023 End: 08-12-2023 Pen Needle, Diab etic (Novofine Plus) 32 gauge x 1/6 needle Start: 08-12-2023 End: 08-16-2023 Blood Sugar Diagnostic (Onetouch Verio Test Strips) strip Start: 04-03-2023 Pen Needle, Diab etic (Comfort Ez Pen Orient) 32 gauge x 1/4 needle Start: 10-23-2023 Blood Sugar Diagnostic (Onetouch Verio Test Strips) strip Start: 02-13-2022 End: 02-14-2022 Blood Sugar Diagnostic (Onetouch Verio Test Strips) strip Start: 02-14-2022 End: 04-03-2023 Pen Needle, Diab etic (Comfort Ez Pen Orient) 32 gauge x 1/4 needle Start: 10-23-2023 End: 10-23-2023 Pen Needle, Diab etic (Novofine Plus) 32 gauge x 1/6 needle Start: 09-20-2021 End: 09-20-2021 Pen Needle, Diab etic (Novofine Plus) 32 gauge x 1/6 needle Start: 09-20-2021 End: 09-22-2021 Pen Needle, Diab etic (Novofine Plus) 32 gauge x 1/6 needle Start: 09-22-2021 End: 07-23-2022 Pen Needle, Diab etic (Novofine Plus) 32 gauge x 1/6 needle Start: 07-23-2022 End: 07-24-2022 Pen Needle, Diab etic (Novofine Plus) 32 gauge x 1/6 needle Start: 07-24-2022 End: 07-24-2023 Pen Needle, Diab etic (Novofine Plus) 32 gauge x 1/6 needle Start: 07-24-2023 End: 08-12-2023 Pen Needle, Diab etic (Novofine Plus) 32 gauge x 1/6 needle Start: 08-12-2023 End: 08-16-2023 Pen Needle, Diab etic (Novofine Plus) 32 gauge x 1/6 needle Start: 08-16-2023 End: 10-07-2023 Pen Needle, Diab etic (Novofine Plus) 32 gauge x 1/6 needle Start: 10-07-2023 End: 10-23-2023 Blood Sugar Diagnostic (Onetouch Verio Test Strips) strip Start: 04-03-2023 Pen Needle, Diab etic (Comfort Ez Pen Orient) 32 gauge x 1/4 needle Start: 10-23-2023 Blood Sugar Diagnostic (Onetouch Verio Test Strips) strip Start: 02-13-2022 End: 02-14-2022 Blood Sugar Diagnostic (Onetouch Verio Test Strips) strip Start: 02-14-2022 End: 04-03-2023 Pen Needle, Diab etic (Comfort Ez Pen Orient) 32 gauge x 1/4 needle Start: 10-23-2023 End: 10-23-2023 Pen Needle, Diab etic (Novofine Plus) 32 gauge x 1/6 needle Start: 09-20-2021 End: 09-20-2021 Pen Needle, Diab etic (Novofine Plus) 32 gauge x 1/6 needle Start: 09-20-2021 End: 09-22-2021 Pen Needle, Diab etic (Novofine Plus) 32 gauge x 1/6 needle Start: 09-22-2021 End: 07-23-2022 Pen Needle, Diab etic (Novofine Plus) 32 gauge x 1/6 needle Start: 07-23-2022 End: 07-24-2022 Pen Needle, Diab etic (Novofine Plus) 32 gauge x 1/6 needle Start: 07-24-2022 End: 07-24-2023 Pen Needle, Diab etic (Novofine Plus) 32 gauge x 1/6 needle Start: 07-24-2023 End: 08-12-2023 Pen Needle, Diab etic (Novofine Plus) 32 gauge x 1/6 needle Start: 08-12-2023 End: 08-16-2023 Pen Needle, Diab etic (Novofine Plus) 32 gauge x 1/6 needle Start: 08-16-2023 End: 10-07-2023 Pen Needle, Diab etic (Novofine Plus) 32 gauge x 1/6 needle Start: 10-07-2023 End: 10-23-2023 Blood Sugar Diagnostic (Onetouch Verio Test Strips) strip Start: 05-04-2024 Lancets (Onetouc h Delica Plus Lancet) 33 gauge misc Start: 05-04-2024 Pen Needle, Diab etic (Comfort Ez Pen Orient) 32 gauge x 1/4 needle Start: 10-23-2023 Blood Sugar Diagnostic (Onetouch Verio Test Strips) strip Start: 02-13-2022 End: 02-14-2022 Blood Sugar Diagnostic (Onetouch Verio Test Strips) strip Start: 02-14-2022 End: 04-03-2023 Blood Sugar Diagnostic (Onetouch Verio Test Strips) strip Start: 04-03-2023 End: 05-04-2024 Lancets (Onetouc h Delica Plus Lancet) 33 gauge misc Start: 05-04-2024 End: 05-04-2024 Pen Needle, Diab etic (Comfort Ez Pen Orient) 32 gauge x 1/4 needle Start: 10-23-2023 End: 10-23-2023 Pen Needle, Diab etic (Novofine Plus) 32 gauge x 1/6 needle Start: 09-20-2021 End: 09-20-2021 Pen Needle, Diab etic (Novofine Plus) 32 gauge x 1/6 needle Start: 09-20-2021 End: 09-22-2021 Pen Needle, Diab etic (Novofine Plus) 32 gauge x 1/6 needle Start: 09-22-2021 End: 07-23-2022 Pen Needle, Diab etic (Novofine Plus) 32 gauge x 1/6 needle Start: 07-23-2022 End: 07-24-2022 Pen Needle, Diab etic (Novofine Plus) 32 gauge x 1/6 needle Start: 07-24-2022 End: 07-24-2023 Pen Needle, Diab etic (Novofine Plus) 32 gauge x 1/6 needle Start: 07-24-2023 End: 08-12-2023 Pen Needle, Diab etic (Novofine Plus) 32 gauge x 1/6 needle Start: 08-12-2023 End: 08-16-2023 Pen Needle, Diab etic (Novofine Plus) 32 gauge x 1/6 needle Start: 08-16-2023 End: 10-07-2023 Pen Needle, Diab etic (Novofine Plus) 32 gauge x 1/6 needle Start: 10-07-2023 End: 10-23-2023 Blood Sugar Diagnostic (Onetouch Verio Test Strips) strip Start: 05-04-2024 Lancets (Onetouc h Delica Plus Lancet) 33 gauge misc Start: 05-04-2024 Pen Needle, Diab etic (Comfort Ez Pen Orient) 32 gauge x 1/4 needle Start: 01-04-2025 Blood Sugar Diagnostic (Onetouch Verio Test Strips) strip Start: 02-13-2022 End: 02-14-2022 Blood Sugar Diagnostic (Onetouch Verio Test Strips) strip Start: 02-14-2022 End: 04-03-2023 Blood Sugar Diagnostic (Onetouch Verio Test Strips) strip Start: 04-03-2023 End: 05-04-2024 Lancets (Onetouc h Delica Plus Lancet) 33 gauge misc Start: 05-04-2024 End: 05-04-2024 Pen Needle, Diab etic (Comfort Ez Pen Orient) 32 gauge x 1/4 needle Start: 10-23-2023 End: 10-23-2023 Pen Needle, Diab etic (Comfort Ez Pen Orient) 32 gauge x 1/4 needle Start: 10-23-2023 End: 01-04-2025 Pen Needle, Diab etic (Novofine Plus) 32 gauge x 1/6 needle Start: 09-20-2021 End: 09-20-2021 Pen Needle, Diab etic (Novofine Plus) 32 gauge x 1/6 needle Start: 09-20-2021 End: 09-22-2021 Pen Needle, Diab etic (Novofine Plus) 32 gauge x 1/6 needle Start: 09-22-2021 End: 07-23-2022 Pen Needle, Diab etic (Novofine Plus) 32 gauge x 1/6 needle Start: 07-23-2022 End: 07-24-2022 Pen Needle, Diab etic (Novofine Plus) 32 gauge x 1/6 needle Start: 07-24-2022 End: 07-24-2023 Pen Needle, Diab etic (Novofine Plus) 32 gauge x 1/6 needle Start: 07-24-2023 End: 08-12-2023 Pen Needle, Diab etic (Novofine Plus) 32 gauge x 1/6 needle Start: 08-12-2023 End: 08-16-2023 Pen Needle, Diab etic (Novofine Plus) 32 gauge x 1/6 needle Start: 08-16-2023 End: 10-07-2023 Pen Needle, Diab etic (Novofine Plus) 32 gauge x 1/6 needle Start: 10-07-2023 End: 10-23-2023 Blood Sugar Diagnostic (Onetouch Verio Test Strips) strip Start: 05-04-2024 Lancets (Onetouc h Delica Plus Lancet) 33 gauge misc Start: 05-04-2024 Pen Needle, Diab etic (Comfort Ez Pen Orient) 32 gauge x 1/4 needle Start: 01-04-2025 Blood Sugar Diagnostic (Onetouch Verio Test Strips) strip Start: 02-13-2022 End: 02-14-2022 Blood Sugar Diagnostic (Onetouch Verio Test Strips) strip Start: 02-14-2022 End: 04-03-2023 Blood Sugar Diagnostic (Onetouch Verio Test Strips) strip Start: 04-03-2023 End: 05-04-2024 Lancets (Onetouc h Delica Plus Lancet) 33 gauge misc Start: 05-04-2024 End: 05-04-2024 Pen Needle, Diab etic (Comfort Ez Pen Orient) 32 gauge x 1/4 needle Start: 10-23-2023 End: 10-23-2023 Pen Needle, Diab etic (Comfort Ez Pen Orient) 32 gauge x 1/4 needle Start: 10-23-2023 End: 01-04-2025 Pen Needle, Diab etic (Novofine Plus) 32 gauge x 1/6 needle Start: 09-20-2021 End: 09-20-2021 Pen Needle, Diab etic (Novofine Plus) 32 gauge x 1/6 needle Start: 09-20-2021 End: 09-22-2021 Pen Needle, Diab etic (Novofine Plus) 32 gauge x 1/6 needle Start: 09-22-2021 End: 07-23-2022 Pen Needle, Diab etic (Novofine Plus) 32 gauge x 1/6 needle Start: 07-23-2022 End: 07-24-2022 Pen Needle, Diab etic (Novofine Plus) 32 gauge x 1/6 needle Start: 07-24-2022 End: 07-24-2023 Pen Needle, Diab etic (Novofine Plus) 32 gauge x 1/6 needle Start: 07-24-2023 End: 08-12-2023 Pen Needle, Diab etic (Novofine Plus) 32 gauge x 1/6 needle Start: 08-12-2023 End: 08-16-2023 Pen Needle, Diab etic (Novofine Plus) 32 gauge x 1/6 needle Start: 08-16-2023 End: 10-07-2023 Pen Needle, Diab etic (Novofine Plus) 32 gauge x 1/6 needle Start: 10-07-2023 End: 10-23-2023 Blood Sugar Diagnostic (Onetouch Verio Test Strips) strip Start: 05-04-2024 Lancets (Onetouc h Delica Plus Lancet) 33 gauge misc Start: 05-04-2024 Pen Needle, Diab etic (Comfort Ez Pen Orient) 32 gauge x 1/4 needle Start: 01-04-2025 Blood Sugar Diagnostic (Onetouch Verio Test Strips) strip Start: 02-13-2022 End: 02-14-2022 Blood Sugar Diagnostic (Onetouch Verio Test Strips) strip Start: 02-14-2022 End: 04-03-2023 Blood Sugar Diagnostic (Onetouch Verio Test Strips) strip Start: 04-03-2023 End: 05-04-2024 Lancets (Onetouc h Delica Plus Lancet) 33 gauge misc Start: 05-04-2024 End: 05-04-2024 Pen Needle, Diab etic (Comfort Ez Pen Orient) 32 gauge x 1/4 needle Start: 10-23-2023 End: 10-23-2023 Pen Needle, Diab etic (Comfort Ez Pen Orient) 32 gauge x 1/4 needle Start: 10-23-2023 End: 01-04-2025 Pen Needle, Diab etic (Novofine Plus) 32 gauge x 1/6 needle Start: 09-20-2021 End: 09-20-2021 Pen Needle, Diab etic (Novofine Plus) 32 gauge x 1/6 needle Start: 09-20-2021 End: 09-22-2021 Pen Needle, Diab etic (Novofine Plus) 32 gauge x 1/6 needle Start: 09-22-2021 End: 07-23-2022 Pen Needle, Diab etic (Novofine Plus) 32 gauge x 1/6 needle Start: 07-23-2022 End: 07-24-2022 Pen Needle, Diab etic (Novofine Plus) 32 gauge x 1/6 needle Start: 07-24-2022 End: 07-24-2023 Pen Needle, Diab etic (Novofine Plus) 32 gauge x 1/6 needle Start: 07-24-2023 End: 08-12-2023 Pen Needle, Diab etic (Novofine Plus) 32 gauge x 1/6 needle Start: 08-12-2023 End: 08-16-2023 Pen Needle, Diab etic (Novofine Plus) 32 gauge x 1/6 needle Start: 08-16-2023 End: 10-07-2023 Pen Needle, Diab etic (Novofine Plus) 32 gauge x 1/6 needle Start: 10-07-2023 End: 10-23-2023 Blood Sugar Diagnostic (Onetouch Verio Test Strips) strip Start: 05-04-2024 Lancets (Onetouc h Delica Plus Lancet) 33 gauge misc Start: 05-04-2024 Pen Needle, Diab etic (Comfort Ez Pen Orient) 32 gauge x 1/4 needle Start: 01-04-2025 Blood Sugar Diagnostic (Onetouch Verio Test Strips) strip Start: 02-13-2022 End: 02-14-2022 Blood Sugar Diagnostic (Onetouch Verio Test Strips) strip Start: 02-14-2022 End: 04-03-2023 Blood Sugar Diagnostic (Onetouch Verio Test Strips) strip Start: 04-03-2023 End: 05-04-2024 Lancets (Onetouc h Delica Plus Lancet) 33 gauge misc Start: 05-04-2024 End: 05-04-2024 Pen Needle, Diab etic (Comfort Ez Pen Orient) 32 gauge x 1/4 needle Start: 10-23-2023 End: 10-23-2023 Pen Needle, Diab etic (Comfort Ez Pen Orient) 32 gauge x 1/4 needle Start: 10-23-2023 End: 01-04-2025 Pen Needle, Diab etic (Novofine Plus) 32 gauge x 1/6 needle Start: 09-20-2021 End: 09-20-2021 Pen Needle, Diab etic (Novofine Plus) 32 gauge x 1/6 needle Start: 09-20-2021 End: 09-22-2021 Pen Needle, Diab etic (Novofine Plus) 32 gauge x 1/6 needle Start: 09-22-2021 End: 07-23-2022 Pen Needle, Diab etic (Novofine Plus) 32 gauge x 1/6 needle Start: 07-23-2022 End: 07-24-2022 Pen Needle, Diab etic (Novofine Plus) 32 gauge x 1/6 needle Start: 07-24-2022 End: 07-24-2023 Pen Needle, Diab etic (Novofine Plus) 32 gauge x 1/6 needle Start: 07-24-2023 End: 08-12-2023 Pen Needle, Diab etic (Novofine Plus) 32 gauge x 1/6 needle Start: 08-12-2023 End: 08-16-2023 Pen Needle, Diab etic (Novofine Plus) 32 gauge x 1/6 needle Start: 08-16-2023 End: 10-07-2023 Pen Needle, Diab etic (Novofine Plus) 32 gauge x 1/6 needle Start: 10-07-2023 End: 10-23-2023 Blood Sugar Diagnostic (Onetouch Verio Test Strips) strip Start: 05-04-2024 Lancets (Onetouc h Delica Plus Lancet) 33 gauge misc Start: 05-04-2024 Pen Needle, Diab etic (Comfort Ez Pen Orient) 32 gauge x 1/4 needle Start: 01-04-2025 Blood Sugar Diagnostic (Onetouch Verio Test Strips) strip Start: 02-13-2022 End: 02-14-2022 Blood Sugar Diagnostic (Onetouch Verio Test Strips) strip Start: 02-14-2022 End: 04-03-2023 Blood Sugar Diagnostic (Onetouch Verio Test Strips) strip Start: 04-03-2023 End: 05-04-2024 Lancets (Onetouc h Delica Plus Lancet) 33 gauge misc Start: 05-04-2024 End: 05-04-2024 Pen Needle, Diab etic (Comfort Ez Pen Orient) 32 gauge x 1/4 needle Start: 10-23-2023 End: 10-23-2023 Pen Needle, Diab etic (Comfort Ez Pen Orient) 32 gauge x 1/4 needle Start: 10-23-2023 End: 01-04-2025 Pen Needle, Diab etic (Novofine Plus) 32 gauge x 1/6 needle Start: 09-20-2021 End: 09-20-2021 Pen Needle, Diab etic (Novofine Plus) 32 gauge x 1/6 needle Start: 09-20-2021 End: 09-22-2021 Pen Needle, Diab etic (Novofine Plus) 32 gauge x 1/6 needle Start: 09-22-2021 End: 07-23-2022 Pen Needle, Diab etic (Novofine Plus) 32 gauge x 1/6 needle Start: 07-23-2022 End: 07-24-2022 Pen Needle, Diab etic (Novofine Plus) 32 gauge x 1/6 needle Start: 07-24-2022 End: 07-24-2023 Pen Needle, Diab etic (Novofine Plus) 32 gauge x 1/6 needle Start: 07-24-2023 End: 08-12-2023 Pen Needle, Diab etic (Novofine Plus) 32 gauge x 1/6 needle Start: 08-12-2023 End: 08-16-2023 Pen Needle, Diab etic (Novofine Plus) 32 gauge x 1/6 needle Start: 08-16-2023 End: 10-07-2023 Pen Needle, Diab etic (Novofine Plus) 32 gauge x 1/6 needle Start: 10-07-2023 End: 10-23-2023 Blood Sugar Diagnostic (Onetouch Verio Test Strips) strip Start: 05-04-2024 Lancets (Onetouc h Delica Plus Lancet) 33 gauge misc Start: 05-04-2024 Pen Needle, Diab etic (Comfort Ez Pen Orient) 32 gauge x 1/4 needle Start: 01-04-2025 Blood Sugar Diagnostic (Onetouch Verio Test Strips) strip Start: 02-13-2022 End: 02-14-2022 Blood Sugar Diagnostic (Onetouch Verio Test Strips) strip Start: 02-14-2022 End: 04-03-2023 Blood Sugar Diagnostic (Onetouch Verio Test Strips) strip Start: 04-03-2023 End: 05-04-2024 Lancets (Onetouc h Delica Plus Lancet) 33 gauge misc Start: 05-04-2024 End: 05-04-2024 Pen Needle, Diab etic (Comfort Ez Pen Orient) 32 gauge x 1/4 needle Start: 10-23-2023 End: 10-23-2023 Pen Needle, Diab etic (Comfort Ez Pen Orient) 32 gauge x 1/4 needle Start: 10-23-2023 End: 01-04-2025 Pen Needle, Diab etic (Novofine Plus) 32 gauge x 1/6 needle Start: 09-20-2021 End: 09-20-2021 Pen Needle, Diab etic (Novofine Plus) 32 gauge x 1/6 needle Start: 09-20-2021 End: 09-22-2021 Pen Needle, Diab etic (Novofine Plus) 32 gauge x 1/6 needle Start: 09-22-2021 End: 07-23-2022 Pen Needle, Diab etic (Novofine Plus) 32 gauge x 1/6 needle Start: 07-23-2022 End: 07-24-2022 Pen Needle, Diab etic (Novofine Plus) 32 gauge x 1/6 needle Start: 07-24-2022 End: 07-24-2023 Pen Needle, Diab etic (Novofine Plus) 32 gauge x 1/6 needle Start: 07-24-2023 End: 08-12-2023 Pen Needle, Diab etic (Novofine Plus) 32 gauge x 1/6 needle Start: 08-12-2023 End: 08-16-2023 Pen Needle, Diab etic (Novofine Plus) 32 gauge x 1/6 needle Start: 08-16-2023 End: 10-07-2023 Pen Needle, Diab etic (Novofine Plus) 32 gauge x 1/6 needle Start: 10-07-2023 End: 10-23-2023 Start: 05-05-2024 Blood Sugar Diagnostic (Onetouch Verio Test Strips) strip Start: 02-24-2025 Lancets (Onetouc h Delica Plus Lancet) 33 gauge misc Start: 05-04-2024 Pen Needle, Diab etic (Comfort Ez Pen Orient) 32 gauge x 1/4 needle Start: 01-04-2025 Blood Sugar Diagnostic (Onetouch Verio Test Strips) strip Start: 02-13-2022 End: 02-14-2022 Blood Sugar Diagnostic (Onetouch Verio Test Strips) strip Start: 02-14-2022 End: 04-03-2023 Blood Sugar Diagnostic (Onetouch Verio Test Strips) strip Start: 04-03-2023 End: 05-04-2024 Blood Sugar Diagnostic (Onetouch Verio Test Strips) strip Start: 05-04-2024 End: 02-24-2025 Lancets (Onetouc h Delica Plus Lancet) 33 gauge misc Start: 05-04-2024 End: 05-04-2024 Pen Needle, Diab etic (Comfort Ez Pen Orient) 32 gauge x 1/4 needle Start: 10-23-2023 End: 10-23-2023 Pen Needle, Diab etic (Comfort Ez Pen Orient) 32 gauge x 1/4 needle Start: 10-23-2023 End: 01-04-2025 Pen Needle, Diab etic (Novofine Plus) 32 gauge x 1/6 needle Start: 09-20-2021 End: 09-20-2021 Pen Needle, Diab etic (Novofine Plus) 32 gauge x 1/6 needle Start: 09-20-2021 End: 09-22-2021 Pen Needle, Diab etic (Novofine Plus) 32 gauge x 1/6 needle Start: 09-22-2021 End: 07-23-2022 Pen Needle, Diab etic (Novofine Plus) 32 gauge x 1/6 needle Start: 07-23-2022 End: 07-24-2022 Pen Needle, Diab etic (Novofine Plus) 32 gauge x 1/6 needle Start: 07-24-2022 End: 07-24-2023 Pen Needle, Diab etic (Novofine Plus) 32 gauge x 1/6 needle Start: 07-24-2023 End: 08-12-2023 Pen Needle, Diab etic (Novofine Plus) 32 gauge x 1/6 needle Start: 08-12-2023 End: 08-16-2023 Pen Needle, Diab etic (Novofine Plus) 32 gauge x 1/6 needle Start: 08-16-2023 End: 10-07-2023 Pen Needle, Diab etic (Novofine Plus) 32 gauge x 1/6 needle Start: 10-07-2023 End: 10-23-2023 Blood Sugar Diagnostic (Onetouch Verio Test Strips) strip Start: 02-24-2025 Lancets (Onetouc h Delica Plus Lancet) 33 gauge misc Start: 05-04-2024 Pen Needle, Diab etic (Comfort Ez Pen Orient) 32 gauge x 1/4 needle Start: 01-04-2025 Blood Sugar Diagnostic (Onetouch Verio Test Strips) strip Start: 02-13-2022 End: 02-14-2022 Blood Sugar Diagnostic (Onetouch Verio Test Strips) strip Start: 02-14-2022 End: 04-03-2023 Blood Sugar Diagnostic (Onetouch Verio Test Strips) strip Start: 04-03-2023 End: 05-04-2024 Blood Sugar Diagnostic (Onetouch Verio Test Strips) strip Start: 05-04-2024 End: 02-24-2025 Lancets (Onetouc h Delica Plus Lancet) 33 gauge misc Start: 05-04-2024 End: 05-04-2024 Pen Needle, Diab etic (Comfort Ez Pen Orient) 32 gauge x 1/4 needle Start: 10-23-2023 End: 10-23-2023 Pen Needle, Diab etic (Comfort Ez Pen Orient) 32 gauge x 1/4 needle Start: 10-23-2023 End: 01-04-2025 Pen Needle, Diab etic (Novofine Plus) 32 gauge x 1/6 needle Start: 09-20-2021 End: 09-20-2021 Pen Needle, Diab etic (Novofine Plus) 32 gauge x 1/6 needle Start: 09-20-2021 End: 09-22-2021 Pen Needle, Diab etic (Novofine Plus) 32 gauge x 1/6 needle Start: 09-22-2021 End: 07-23-2022 Pen Needle, Diab etic (Novofine Plus) 32 gauge x 1/6 needle Start: 07-23-2022 End: 07-24-2022 Pen Needle, Diab etic (Novofine Plus) 32 gauge x 1/6 needle Start: 07-24-2022 End: 07-24-2023 Pen Needle, Diab etic (Novofine Plus) 32 gauge x 1/6 needle Start: 07-24-2023 End: 08-12-2023 Pen Needle, Diab etic (Novofine Plus) 32 gauge x 1/6 needle Start: 08-12-2023 End: 08-16-2023 Pen Needle, Diab etic (Novofine Plus) 32 gauge x 1/6 needle Start: 08-16-2023 End: 10-07-2023 Pen Needle, Diab etic (Novofine Plus) 32 gauge x 1/6 needle Start: 10-07-2023 End: 10-23-2023 Blood Sugar Diagnostic (Onetouch Verio Test Strips) strip Start: 02-24-2025 Lancets (Onetouc h Delica Plus Lancet) 33 gauge misc Start: 05-04-2024 Pen Needle, Diab etic (Comfort Ez Pen Orient) 32 gauge x 1/4 needle Start: 01-04-2025 Blood Sugar Diagnostic (Onetouch Verio Test Strips) strip Start: 02-13-2022 End: 02-14-2022 Blood Sugar Diagnostic (Onetouch Verio Test Strips) strip Start: 02-14-2022 End: 04-03-2023 Blood Sugar Diagnostic (Onetouch Verio Test Strips) strip Start: 04-03-2023 End: 05-04-2024 Blood Sugar Diagnostic (Onetouch Verio Test Strips) strip Start: 05-04-2024 End: 02-24-2025 Lancets (Onetouc h Delica Plus Lancet) 33 gauge misc Start: 05-04-2024 End: 05-04-2024 Pen Needle, Diab etic (Comfort Ez Pen Orient) 32 gauge x 1/4 needle Start: 10-23-2023 End: 10-23-2023 Pen Needle, Diab etic (Comfort Ez Pen Orient) 32 gauge x 1/4 needle Start: 10-23-2023 End: 01-04-2025 Pen Needle, Diab etic (Novofine Plus) 32 gauge x 1/6 needle Start: 09-20-2021 End: 09-20-2021 Pen Needle, Diab etic (Novofine Plus) 32 gauge x 1/6 needle Start: 09-20-2021 End: 09-22-2021 Pen Needle, Diab etic (Novofine Plus) 32 gauge x 1/6 needle Start: 09-22-2021 End: 07-23-2022 Pen Needle, Diab etic (Novofine Plus) 32 gauge x 1/6 needle Start: 07-23-2022 End: 07-24-2022 Pen Needle, Diab etic (Novofine Plus) 32 gauge x 1/6 needle Start: 07-24-2022 End: 07-24-2023 Pen Needle, Diab etic (Novofine Plus) 32 gauge x 1/6 needle Start: 07-24-2023 End: 08-12-2023 Pen Needle, Diab etic (Novofine Plus) 32 gauge x 1/6 needle Start: 08-12-2023 End: 08-16-2023 Pen Needle, Diab etic (Novofine Plus) 32 gauge x 1/6 needle Start: 08-16-2023 End: 10-07-2023 Pen Needle, Diab etic (Novofine Plus) 32 gauge x 1/6 needle Start: 10-07-2023 End: 10-23-2023 Blood Sugar Diagnostic (Onetouch Verio Test Strips) strip Start: 02-24-2025 Lancets (Onetouc h Delica Plus Lancet) 33 gauge misc Start: 05-04-2024 Pen Needle, Diab etic (Comfort Ez Pen Orient) 32 gauge x 1/4 needle Start: 01-04-2025 Blood Sugar Diagnostic (Onetouch Verio Test Strips) strip Start: 02-13-2022 End: 06-01-2022 Blood Sugar Diagnostic (Onetouch Verio Test Strips) strip Start: 02-14-2022 End: 04-03-2023 Blood Sugar Diagnostic (Onetouch Verio Test Strips) strip Start: 04-03-2023 End: 05-04-2024 Blood Sugar Diagnostic (Onetouch Verio Test Strips) strip Start: 05-04-2024 End: 02-24-2025 Lancets (Onetouc h Delica Plus Lancet) 33 gauge misc Start: 05-04-2024 End: 05-04-2024 Pen Needle, Diab etic (Comfort Ez Pen Orient) 32 gauge x 1/4 needle Start: 10-23-2023 End: 10-23-2023 Pen Needle, Diab etic (Comfort Ez Pen Orient) 32 gauge x 1/4 needle Start: 10-23-2023 End: 01-04-2025 Pen Needle, Diab etic (Novofine Plus) 32 gauge x 1/6 needle Start: 09-20-2021 End: 09-20-2021 Pen Needle, Diab etic (Novofine Plus) 32 gauge x 1/6 needle Start: 09-20-2021 End: 09-22-2021 Pen Needle, Diab etic (Novofine Plus) 32 gauge x 1/6 needle Start: 09-22-2021 End: 07-23-2022 Pen Needle, Diab etic (Novofine Plus) 32 gauge x 1/6 needle Start: 07-23-2022 End: 07-24-2022 Pen Needle, Diab etic (Novofine Plus) 32 gauge x 1/6 needle Start: 07-24-2022 End: 07-24-2023 Pen Needle, Diab etic (Novofine Plus) 32 gauge x 1/6 needle Start: 07-24-2023 End: 08-12-2023 Pen Needle, Diab etic (Novofine Plus) 32 gauge x 1/6 needle Start: 08-12-2023 End: 08-16-2023 Pen Needle, Diab etic (Novofine Plus) 32 gauge x 1/6 needle Start: 08-16-2023 End: 10-07-2023 Pen Needle, Diab etic (Novofine Plus) 32 gauge x 1/6 needle Start: 10-07-2023 End: 10-23-2023 Blood Sugar Diagnostic (Onetouch Verio Test Strips) strip Start: 02-24-2025 Lancets (Onetouc h Delica Plus Lancet) 33 gauge misc Start: 05-04-2024 Pen Needle, Diab etic (Comfort Ez Pen Orient) 32 gauge x 1/4 needle Start: 01-04-2025 Blood Sugar Diagnostic (Onetouch Verio Test Strips) strip Start: 02-13-2022 End: 02-14-2022 Blood Sugar Diagnostic (Onetouch Verio Test Strips) strip Start: 02-14-2022 End: 04-03-2023 Blood Sugar Diagnostic (Onetouch Verio Test Strips) strip Start: 04-03-2023 End: 05-04-2024 Blood Sugar Diagnostic (Onetouch Verio Test Strips) strip Start: 05-04-2024 End: 02-24-2025 Lancets (Onetouc h Delica Plus Lancet) 33 gauge misc Start: 05-04-2024 End: 05-04-2024 Pen Needle, Diab etic (Comfort Ez Pen Orient) 32 gauge x 1/4 needle Start: 10-23-2023 End: 10-23-2023 Pen Needle, Diab etic (Comfort Ez Pen Orient) 32 gauge x 1/4 needle Start: 10-23-2023 End: 01-04-2025 Pen Needle, Diab etic (Novofine Plus) 32 gauge x 1/6 needle Start: 09-20-2021 End: 09-20-2021 Pen Needle, Diab etic (Novofine Plus) 32 gauge x 1/6 needle Start: 09-20-2021 End: 09-22-2021 Pen Needle, Diab etic (Novofine Plus) 32 gauge x 1/6 needle Start: 09-22-2021 End: 07-23-2022 Pen Needle, Diab etic (Novofine Plus) 32 gauge x 1/6 needle Start: 07-23-2022 End: 07-24-2022 Pen Needle, Diab etic (Novofine Plus) 32 gauge x 1/6 needle Start: 07-24-2022 End: 07-24-2023 Pen Needle, Diab etic (Novofine Plus) 32 gauge x 1/6 needle Start: 07-24-2023 End: 08-12-2023 Pen Needle, Diab etic (Novofine Plus) 32 gauge x 1/6 needle Start: 08-12-2023 End: 08-16-2023 Pen Needle, Diab etic (Novofine Plus) 32 gauge x 1/6 needle Start: 08-16-2023 End: 10-07-2023 Pen Needle, Diab etic (Novofine Plus) 32 gauge x 1/6 needle Start: 10-07-2023 End: 10-23-2023 Blood Sugar Diagnostic (Onetouch Verio Test Strips) strip Start: 02-24-2025 Lancets (Onetouc h Delica Plus Lancet) 33 gauge misc Start: 05-04-2024 Pen Needle, Diab etic (Comfort Ez Pen Orient) 32 gauge x 1/4 needle Start: 01-04-2025 Blood Sugar Diagnostic (Onetouch Verio Test Strips) strip Start: 02-13-2022 End: 02-14-2022 Blood Sugar Diagnostic (Onetouch Verio Test Strips) strip Start: 02-14-2022 End: 04-03-2023 Blood Sugar Diagnostic (Onetouch Verio Test Strips) strip Start: 04-03-2023 End: 05-04-2024 Blood Sugar Diagnostic (Onetouch Verio Test Strips) strip Start: 05-04-2024 End: 02-24-2025 Lancets (Onetouc h Delica Plus Lancet) 33 gauge misc Start: 05-04-2024 End: 05-04-2024 Pen Needle, Diab etic (Comfort Ez Pen Orient) 32 gauge x 1/4 needle Start: 10-23-2023 End: 10-23-2023 Pen Needle, Diab etic (Comfort Ez Pen Orient) 32 gauge x 1/4 needle Start: 10-23-2023 End: 01-04-2025 Pen Needle, Diab etic (Novofine Plus) 32 gauge x 1/6 needle Start: 09-20-2021 End: 09-20-2021 Pen Needle, Diab etic (Novofine Plus) 32 gauge x 1/6 needle Start: 09-20-2021 End: 09-22-2021 Pen Needle, Diab etic (Novofine Plus) 32 gauge x 1/6 needle Start: 09-22-2021 End: 07-23-2022 Pen Needle, Diab etic (Novofine Plus) 32 gauge x 1/6 needle Start: 07-23-2022 End: 07-24-2022 Pen Needle, Diab etic (Novofine Plus) 32 gauge x 1/6 needle Start: 07-24-2022 End: 07-24-2023 Pen Needle, Diab etic (Novofine Plus) 32 gauge x 1/6 needle Start: 07-24-2023 End: 08-12-2023 Pen Needle, Diab etic (Novofine Plus) 32 gauge x 1/6 needle Start: 08-12-2023 End: 08-16-2023 Pen Needle, Diab etic (Novofine Plus) 32 gauge x 1/6 needle Start: 08-16-2023 End: 10-07-2023 Pen Needle, Diab etic (Novofine Plus) 32 gauge x 1/6 needle Start: 10-07-2023 End: 10-23-2023 Blood Sugar Diagnostic (Onetouch Verio Test Strips) strip Start: 02-24-2025 Lancets (Onetouc h Delica Plus Lancet) 33 gauge misc Start: 05-04-2024 Pen Needle, Diab etic (Comfort Ez Pen Orient) 32 gauge x 1/4 needle Start: 01-04-2025 Blood Sugar Diagnostic (Onetouch Verio Test Strips) strip Start: 02-13-2022 End: 02-14-2022 Blood Sugar Diagnostic (Onetouch Verio Test Strips) strip Start: 02-14-2022 End: 04-03-2023 Blood Sugar Diagnostic (Onetouch Verio Test Strips) strip Start: 04-03-2023 End: 05-04-2024 Blood Sugar Diagnostic (Onetouch Verio Test Strips) strip Start: 05-04-2024 End: 02-24-2025 Lancets (Onetouc h Delica Plus Lancet) 33 gauge misc Start: 05-04-2024 End: 05-04-2024 Pen Needle, Diab etic (Comfort Ez Pen Orient) 32 gauge x 1/4 needle Start: 10-23-2023 End: 10-23-2023 Pen Needle, Diab etic (Comfort Ez Pen Orient) 32 gauge x 1/4 needle Start: 10-23-2023 End: 01-04-2025 Pen Needle, Diab etic (Novofine Plus) 32 gauge x 1/6 needle Start: 09-20-2021 End: 09-20-2021 Pen Needle, Diab etic (Novofine Plus) 32 gauge x 1/6 needle Start: 09-20-2021 End: 09-22-2021 Pen Needle, Diab etic (Novofine Plus) 32 gauge x 1/6 needle Start: 09-22-2021 End: 07-23-2022 Pen Needle, Diab etic (Novofine Plus) 32 gauge x 1/6 needle Start: 07-23-2022 End: 07-24-2022 Pen Needle, Diab etic (Novofine Plus) 32 gauge x 1/6 needle Start: 07-24-2022 End: 07-24-2023 Pen Needle, Diab etic (Novofine Plus) 32 gauge x 1/6 needle Start: 07-24-2023 End: 08-12-2023 Pen Needle, Diab etic (Novofine Plus) 32 gauge x 1/6 needle Start: 08-12-2023 End: 08-16-2023 Pen Needle, Diab etic (Novofine Plus) 32 gauge x 1/6 needle Start: 08-16-2023 End: 10-07-2023 Pen Needle, Diab etic (Novofine Plus) 32 gauge x 1/6 needle Start: 10-07-2023 End: 10-23-2023 Goals Date Patient Goal Desired Activity /State Functional Status Date Assessment Result Facility 01-14-[address] [facility] Work Phone: 01-13-[address] [facility] Work Phone: 01-04-2022 Functional status Ambulates;Up ad jesusita [facility] Work Phone: Mental Status Date Assessment Result Facility 03-29-2025 Cognitive function Voice/Name [facility] Work Phone: 01-14-2025 Cognitive function Voice/Name [facility] Work Phone: 12-03-2023 Cognitive function Voice/Name [facility] Work Phone: 08-20-2023 Cognitive function Level Of Cons ciousness Awake;Alert;Appropriate [facility] Work Phone: 01-08-2022 Cognitive function Level Of Cons ciousness Awake;Alert;Appropriate;Follo ws Commands;Responds to vocal stimuli [facility] Work Phone: 01-03-2022 Cognitive function Voice/Name [facility] Work Phone: 01-02-2022 Cognitive function Level Of Cons ciousness Awake;Alert;Follows Commands [facility] Work Phone: Clinical Notes 08-16-2001 to 03-29-2025 Telephone Encounter - Aide Cloud APRN [facility] - 03/11/2025 11:49 AM EDTTelephone Encounter - Aide Cloud APRN [facility] - 03/11/2025 11:49 AM Adarsh Blackman MD - 03/04/2025 12:00 PM EDT Note Date & Type Note Facility 03-29-2025 Discharge summary [facility] 03-29-2025 Radiology Diagnostic study note [facility] Imaging Services [address], [place] [address] Chest PA and Lateral MR#: [id number] Acct: [id number] Name: COLEMAN DAVIES Rep #: [id number] : 1950 M 74 From: Romana Santos MD PCP: Dr. Briseyda Sinclair MD Status: REG ER Study:Chest PA and Lateral Date of Exam: 03/29/25 Exam# [id number] Ordering Dr: Piper Vance DO PROCEDURE: CHEST PA AND LATERAL 03/29/2025 REASON FOR EXAM: CHEST PAIN TECHNIQUE: CHEST PA AND LATERAL COMPARISON: February 27, 2024 FINDINGS: Heart size and mediastinal configuration are within normal limits. There is no focal infiltrate or consolidation. There is no pneumothorax or effusion. Aortic calcifications are noted. There is no acute bony abnormality. RAD/Chest PA and Lateral IMPRESSION: No acute process is identified in the chest. Reading Location: [facility] CC: Dr. Briseyda Sinclair MD; Ravinder Vance DO ~ Retirement Plan Counselor: Signed [facility] 03-11-2025 Telephone encounter Note I did. [facility] 03-11-2025 Miscellaneous Notes I did. Name of caller: Kaelyn Contact phone number: [phone] Relationship to Patient: [facility] Provider: Dr. Blackman Practice: Endovascular Chief Complaint/Reason for Call: Patient PRU lab was cancelled due to wrong color tube. If patient testing needs completed please reorder testing. Lab needs a christine tube, not a long top blue. Best time of day caller can be reached: any Patient advised that office/PCP has 24-48 business hours to return their call: Yes documented in this encounter [facility] [place] 03-05-2025 Telephone encounter Note Name of caller: Kaelyn Contact phone number: [phone] Relationship to Patient: [facility] Provider: Dr. Blackman Practice: Endovascular Chief Complaint/Reason for Call: Patient PRU lab was cancelled due to wrong color tube. If patient testing needs completed please reorder testing. Lab needs a christine tube, not a long top blue. Best time of day caller can be reached: any Patient advised that office/PCP has 24-48 business hours to return their call: Yes [facility] 03-05-2025 Miscellaneous Notes Name of caller: Kaelyn Contact phone number: [phone] Relationship to Patient: [facility] Provider: Dr. Blackman Practice: Endovascular Chief Complaint/Reason for Call: Patient PRU lab was cancelled due to wrong color tube. If patient testing needs completed please reorder testing. Lab needs a christine tube, not a long top blue. Best time of day caller can be reached: any Patient advised that office/PCP has 24-48 business hours to return their call: Yes documented in this encounter [facility] 03-04-2025 History of Present illness Narrative History of Present Illness: 74 yo man presenting for incidental unruptured right NARDA aneurysm. He is a referral from Dr. Werner. Per him: - bilateral carotid disease; known right ICA occlusion and mid left ICA stenosis.... 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 Also right NARDA 4mm aneurysm, right posterior communicating artery stenosis, right VA stenosis, left cervical ICA 40% stenosis, left carotid siphon 25% stenosis, left vertebral artery 30% stenosis. The patient reports no personal or family h/o SAH he is a nonsmoker (quit after heart attack and stent). Past Medical History: Diagnosis Date Aneurysm (HCC) Diabetes (HCC) Heart attack (HCC) High blood cholesterol High cholesterol Hypertension Stroke (cerebrum) (HCC) Past Surgical History: Procedure Laterality Date BACK SURGERY CORONARY STENT PLACEMENT ROTATOR CUFF REPAIR Right Current Outpatient Medications: amLODIPine (Norvasc) 5 MG tablet, , Disp: , Rfl: atorvastatin (Lipitor) 80 MG tablet, , Disp: , Rfl: carvedilol (Coreg) 12.5 MG tablet, , Disp: , Rfl: clopidogrel (Plavix) 75 MG tablet, , Disp: , Rfl: Droplet Pen Orient 32G X 6 MM [facility], , Disp: , Rfl: famotidine (Pepcid) 20 MG tablet, , Disp: , Rfl: glimepiride (Amaryl) 4 MG tablet, , Disp: , Rfl: isosorbide mononitrate ER (Imdur) 30 MG 24 hr tablet, , Disp: , Rfl: Lancets (OneTouch Delica Plus [id number]) [facility], USE TO TEST BLOOD SUGAR TWICE DAILY FOR DM II, Disp: , Rfl: lisinopril 20 MG tablet, , Disp: , Rfl: metFORMIN (Glucophage) 500 MG tablet, Take 1,000 mg by mouth 2 times daily., Disp: , Rfl: nitroglycerin (Nitrostat) 0.4 MG SL tablet, PLACE 1 TABLET UNDER TONGUE FOR CHEST PAIN. CALL 911 IF NO IMPROVEMENT AFTER 5 MIN. REPEAT DOSE TWICE IF NEEDED, Disp: , Rfl: OneTouch Verio test strip, USE DIRECTED TO MONITOR BLOOD GLUCOSE TWICE DAILY, Disp: , Rfl: tamsulosin (Flomax) 0.4 MG 24 hr capsule, Take 0.4 mg by mouth Nightly., Disp: , Rfl: Toujeo SoloStar 300 UNIT/ML injection, , Disp: , Rfl: Social History Tobacco Use Smoking status: Former Current packs/day: 0.00 Types: Cigarettes Quit date: 2000 Years since quittin.4 Smokeless tobacco: Never Substance Use Topics Alcohol use: Not on file Family History Problem Relation Name Age of Onset Diabetes Mother Diabetes Father Esophageal cancer Brother Bone cancer Brother Prostate cancer Brother Diabetes Brother Review of Systems Constitutional: Negative. HENT: Negative. Eyes: Negative. Respiratory: Negative. Cardiovascular: Negative. Gastrointestinal: Negative. Endocrine: Negative. Genitourinary: Negative. Musculoskeletal: Negative. Skin: Negative. Allergic/Immunologic: Negative. Hematological: Negative. Psychiatric/Behavioral: Negative. All other systems reviewed and are negative. Examination: BP Readings from Last 3 Encounters: No data found for BP Wt Readings from Last 3 Encounters: No data found for Wt BP 121/69 Pulse 80 Temp 36.6 C (97.8 F) Wt 75.7 kg (166 lb 12.8 oz) Neurological Examination: Higher Functions: Mental Status Exam: Level of Alertness:Awake Orientation: person,place,time, Memory:normal Fund of Knowledge: normal Attention/Concentration: normal Language: mild transcortical expressive aphasia Dysarthria Not present Cranial Nerves: -II Visual acuity: normal -II Visual steve: normal -III Pupils (~ 3 mm OD, 3 mm OS) equal, round, reactive to light -III-IV- Extraocular Movements: intact -Nystagmus Not present -Saccades and pursuits normal -V Facial sensation: intact -VII Facial strength: intact -VIII Hearing: intact -X Palate: intact -XI Shoulder shrug: intact -XII Tongue movement: normal Funduscopic Exam: normal Motor Examination: Tone Normal -Bulk: normal -Muscle Stretch : Drift:absent normal -Reflexes ; normal -Plantar responce: Flexor bilaterally Sensory Intact to light touch, pain / temperature, proprioception, Coordination: Arms Normal finger to nose, Tremors not present, Gait Normal Imaging reviewed with patient: CTA Impression/Plan: 74 yo man here for incidental unruptured right NARDA 4mm aneurysm. - Found incidentally during evaluation for possible TIA - Known right ICA occlusion, left ICA 40% stenosis (follows with vascular surgery for carotid surveillance). - Possible TIA on dual antiplatelet - will obtain PRU test for platelet activity on plavix. Discussed aneurysm rupture risk, stroke risk factors, and warning signs. Discussed imaging and treatment options, benefits, risks, and alternatives. At this time he wishes to continue conservative medical management and observation of the aneurysm. Interim rupture risk was discussed and he is in understanding. Recommend continued BP control and also continued smoking cessation. MD Hiral I spent 40 minutes with the patient discussing clinical history, imaging, and treatment options (medical, endovascular and surgical). They expressed understanding and agreement with the plan. Patient Education: >= 3 elements of education during at least one visit within a 12 month period - lifestyle, physical activity, diet and medications. Life Style Modification: Yes Smoking cessation counseling: Yes documented in this encounter [employer] 02-17-2025 Telephone encounter Note Name of caller: Basim Contact phone number: [phone] Relationship to Patient: spouse/SO Provider: Dr. Blackman Practice: Endovascular Chief Complaint/Reason for Call: Basim called advising if patient's referral has been received and she would like to schedule an appointment soon. Please call patient if he referral has been received to setup appointment and advise. Best time of day caller can be reached: any Patient advised that office/PCP has 24-48 business hours to return their call: Yes [employer] 02-17-2025 Miscellaneous Notes Name of caller: Basim Contact phone number: [phone] Relationship to Patient: spouse/SO Provider: Dr. Blackman Practice: Endovascular Chief Complaint/Reason for Call: Basim called advising if patient's referral has been received and she would like to schedule an appointment soon. Please call patient if he referral has been received to setup appointment and advise. Best time of day caller can be reached: any Patient advised that office/PCP has 24-48 business hours to return their call: Yes documented in this encounter [facility] 02-01-2025 Progress note Note Date/Time February 01, 2025 2:51pm [facility] Vascular Surgery [address] [place] [address]. [address] [place] [address] OFFICE VISIT Date of Service: 02/01/25 MR#: [id number] Acct: [id number] Name: COLEMAN DAVIES Rep #: [id number] : 1950 Provider: Dr. Mookie Werner MD Age/Sex: 74/M Location: [facility] Status: Signed Intake Vital Signs 01/13/25 15:51 01/27/25 14:53 02/01/25 13:49 Height 6 ft 6 ft 6 ft Weight: 170 lb 2 oz 168 lb BMI 23.1 22.8 BP 115/61 138/72 H Blood Pressure Location Rt brachial Lt brachial Position Sitting Sitting Respiration 16 16 Pulse 75 78 Pulse Source Monitor Monitor Temp 98.4 F 98.6 F Temp Source Temporal Temporal Pulse Oximetry (%) 96 98 Oxygen Delivery Method room air room air Intake Visit Reasons: Hospital FU Cemetery Manager Required: No Accompanied by: Is patient in pain?: No Allergies No Known Allergies Allergy (Verified 02/01/25 13:43) Medications ?Medication ?Instructions ?Recorded ?Confirmed ?Type ascorbic acid (vitamin C) 500 mg 500 mg PO DAILY SUPPL EMENT 07/05/21 02/01/25 History tablet aspirin 81 mg tablet,delayed 81 mg PO DAILY HEART HEAL TH 07/05/21 02/01/25 History release (Adult Low Dose Aspirin) cyanocobalamin (vitamin B-12) 1,000 mcg PO DAILY SUPPL EMENT 07/05/21 02/01/25 History 5,000 mcg disintegrating tablet cholecalciferol (vitamin D3) 25 25 mcg PO BID SUPPLEME NT 07/20/21 02/01/25 History mcg (1,000 unit) tablet nitroglycerin 0.4 mg sublingual 0.4 mg sublingual Q5-1 5M PRN chest 03/16/24 02/01/25 Rx tablet pain #25 tabs blood sugar diagnostic (OneTouch #100 ea 05/04/2401/14 Rx Verio test strips) lancets 33 gauge ([facility]100 ea 05/04/24 Rx Plus Lancet) atorvastatin 80 mg tablet 80 mg PO QHS #90 TABLETS 02/01/25 Rx carvedilol 12.5 mg tablet 12.5 mg PO BID #180 tabs 02/01/25 Rx clopidogrel 75 mg tablet (Plavix) 75 mg PO DAILY BLOOD THINNER #90 08/10/24 02/01/25 Rx tabs famotidine 20 mg tablet 20 mg PO DAILY #90 TABLETS 1 10/10/23 02/01/25 Rx glimepiride 4 mg tablet 4 mg PO BID BLOOD SUGARS #90 tabs 08/10/24 02/01/25 Rx isosorbide mononitrate 30 mg 30 mg PO DAILY HEART #90 tabs 08/10/24 02/01/25 Rx tablet,extended release 24 hr lisinopril 20 mg tablet 20 mg PO DAILY #90 TABLETS 1 10/10/23 02/01/25 Rx metformin 500 mg tablet 1,000 mg (2 x 500 mg) PO BID BLOOD 08/10/24 02/01/25 Rx SUGARS #360 tabs amlodipine 5 mg tablet 5 mg PO DAILY #90 TABLETS 02/01/25 Rx insulin glargine U-300 conc 300 36 unit (0.12 mL) subc ut DAILY 08/18/24 02/01/25 Rx unit/mL (1.5 mL) subcutaneous pen BLOOD SUGARS #4.5 mL (Toujesus SoloStar U-300 Insulin) tamsulosin 0.4 mg capsule 0.4 mg PO QHS #30 caps 12/3102/01/25 Rx pen needle, diabetic 32 gauge x #100 ea 01/04/2502/01 Rx 1/4 (Comfort EZ Pen Orient) finasteride 5 mg tablet 5 mg PO QDAY 01/27/25 History Have you fallen in the past year?: No PFSH Medical History Diabetes Myocardial infarct Lower urinary tract symptoms (LUTS) Acute urinary retention Hypothyroidism Lumbar radiculopathy, acute Near syncope Chest pain Chest pain Wears glasses History of steroid therapy Insulin dependent diabetes mellitus High cholesterol Stroke/cerebrovascular accident Dietary restriction Heartburn Former smoker Cardiology follow-up encounter History of heart attack History of hemorrhagic cerebrovascular accident (CVA) without residual deficits Carotid artery disease Coronary artery disease Dyspnea on exertion Abnormal stress test History of recent pneumonia Hypertriglyceridemia Cardiomyopathy, ischemic History of left heart catheterization (LHC) BPH (benign prostatic hyperplasia) Multiple lacunar infarcts Hemorrhagic cerebrovascular accident (CVA) DDD (degenerative disc disease) Pure hypercholesterolemia CKD (chronic kidney disease) stage 3, GFR 30-59 ml/min Right carotid artery occlusion Bilateral carotid artery stenosis Essential hypertension Type 2 diabetes mellitus Presence of stent in coronary artery (~08/28/01) 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 pectoris Surgical History History of coronary artery stent placement History of removal of skin mole Hx of LASIK Hx of colonoscopy History of left heart catheterization (LHC) (~06/01/22) History of arthroscopic surgery of shoulder History of laminectomy (~2007) Presence of coronary angioplasty implant and graft (~08/28/01) Family History Mother CAD (coronary artery disease) Diabetes Myocardial infarction, Onset Age: 48 Father Diabetes Breast cancer Brother Diabetes Cancer Brother Cancer Prostate Social History household members: spouse housing: house Smoking Status: Former smoker alcohol intake: never details: occasional substance use type: does not use caffeine: Yes Type: tea Number of servings: 1 what type of physical activity do you participate in: none additional social history: Daily aspirin use. Does not use ibuprofen daily. HPI HPI HPI: COLEMAN DAVIES, is a 74 M who presents to the office today for follow up of bilateral carotid disease; known right ICA occlusion and mild left ICA stenosis.He initially had a left hemispheric CVA which reportedly was hemorrhagic in 2017and was also found to have right ICA occlusion. Symptoms at that time were garbled speech with no motor/sensory/vision deficit which eventually fully resolved. Recently he was admitted with expressive aphasia lasting about 1 hour.No new infarct seen on MRI and symptoms fully resolved while in ED. 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 ROS General General: No weight change, fatigue, colon cancer or breast cancer HEENT HEENT: No difficulty swallowing, eye surgery or swollen glands Endo Endocrine: Yes diabetes mellitus; No thyroid disease or thyroid cancer Skin Skin: No rash or changing moles Musc Musculoskeletal: Yes back problems; No arthritis, rheumatoid arthritis or gout Cardio Cardiovascular: Yes heart disease, high blood pressure, heart attack and heart stent; No murmur, pacemaker or atrial fibrillation Psych Psychiatric: No depression or anxiety Resp Respiratory: No shortness of breath, No sleep apnea, No cough, No COPD, No asthma and No emphysema Gastro Gastrointestinal: No abdominal pain, No nausea or vomiting, No diarrhea, No constipation, No blood in stool, No acid reflux, No hemorrhoids, No ulcers, No gallbladder problem and No black,tarry stools Porter Hematologic: Yes blood thinners, No blood disorders, No bleeding, No anemia and No blood clots Neuro Neurologic: No numbness, No tingling and Yes other (Stroke/TIA) Exam Const General: cooperative, healthy appearing, comfortable, no acute distress and welldeveloped Nutritional Appearance: well nourished Orientation: alert, awake and oriented x3 HENMT Head: normocephalic and atraumatic Ears: hearing grossly normal bilaterally Nose: external nose normal Eyes General: appearance normal, both eyes and all related structures EOM: EOM intact bilaterally Neck Neck: normal visual inspection, full ROM, no lymphadenopathy and trachea midline Thyroid: thyroid normal Lymphatic: no lymphadenopathy noted Resp Effort & Inspection: normal respiratory effort, able to speak in complete sentences, symmetric chest movement, no audible wheezes, not labored, no stridorand no use of accessory muscles Auscultation: clear to auscultation bilaterally Cardio Rate: regular rate Rhythm: regular rhythm Heart Sounds: no murmurs Bruits: no carotid bruits Pulses: brachial pulses present and radial pulses present Skin General: no rashes or lesions noted and no erythema Wounds: no wounds Neuro Cranial Nerves: CN's II-XI intact bilaterally and EOM intact bilaterally Speech: speech normal Gait: normal gait Motor: strength 5/5 throughout Sensory Exam: no sensory deficits noted Psych Appearance: grossly normal and well kempt Mental Status: mental status grossly normal Mood: congruent mood Speech and Movement: speech and movement normal Thought Content: normal Judgment: judgment good Coding Level of Care Code Off vis,new,level 4 Diagnoses Carotid stenosis, left I65.22 Assessment and Plan Assessment and Plan (1) Carotid stenosis, left: Status: Chronic Comment: CTA- images reviewed, right ICA occlusion, left ICA 41% stenosis Plan: -transient speech disturbance with no significant cervical carotid stenosis -does have significant intracranial vascular occlusive disease as well as right NARDA aneurysm; will refer to NeuroInterventional at [facility] -with regards to cervical ICA disease will plan for yearly surveillance with duplex; most recent duplex revealed low end of 50-69% stenosis by velocity -cont DAPT, avoid hypotension/dehydration Orders: Orders Carotid Duplex Ultrasound 01/14/26 I65.22 - Occlusion and stenosis of left carotid artery Referrals Neurology I67.1 - Cerebral aneurysm, nonruptured Clinical Quality Measures Falls Risk Screening/Assistive Devices Have you fallen in the past year?: No 02/01/25 9771 <Electronically signed by Mookie Hall> Date _ [facility] MD [facility] Signature: Date (if applicable) CC: ~ [facility] Work Phone: 1(189) 687-237705-19-2025 [facility] Vascular Surgery [address] [place] [address] OFFICE VISIT Date of Service: 02/01/25 MR#: [id number] Acct: [id number] Name: COLEMAN DAVIES Rep #: [id number] : 1950 Provider: Dr. Mookie Werner MD Age/Sex: 74/M Location: [facility] Status: Signed Intake Vital Signs 01/13/25 15:51 01/27/25 14:53 02/01/25 13:49 Height 6 ft 6 ft 6 ft Weight: 170 lb 2 oz 168 lb BMI 23.1 22.8 BP 115/61 138/72 H Blood Pressure Location Rt brachial Lt brachial Position Sitting Sitting Respiration 16 16 Pulse 75 78 Pulse Source Monitor Monitor Temp 98.4 F 98.6 F Temp Source Temporal Temporal Pulse Oximetry (%) 96 98 Oxygen Delivery Method room air room air Intake Visit Reasons: Hospital FU Cemetery Manager Required: No Accompanied by: Is patient in pain?: No Allergies No Known Allergies Allergy (Verified 02/01/25 13:43) Medications ?Medication ?Instructions ?Recorded ?Confirmed ?Type ascorbic acid (vitamin C) 500 mg 500 mg PO DAILY SUPPL EMENT 07/05/21 02/01/25 History tablet aspirin 81 mg tablet,delayed 81 mg PO DAILY HEART HEAL TH 07/05/21 02/01/25 History release (Adult Low Dose Aspirin) cyanocobalamin (vitamin B-12) 1,000 mcg PO DAILY SUPPL EMENT 07/05/21 02/01/25 History 5,000 mcg disintegrating tablet cholecalciferol (vitamin D3) 25 25 mcg PO BID SUPPLEME NT 07/20/21 02/01/25 History mcg (1,000 unit) tablet nitroglycerin 0.4 mg sublingual 0.4 mg sublingual Q5-1 5M PRN chest 03/16/24 02/01/25 Rx tablet pain #25 tabs blood sugar diagnostic (OneTouch #100 ea 05/04/2401/14 Rx Verio test strips) lancets 33 gauge (OneTouch Delderian #100 ea 05/04/24 Rx Plus Lancet) atorvastatin 80 mg tablet 80 mg PO QHS #90 TABLETS 02/01/25 Rx carvedilol 12.5 mg tablet 12.5 mg PO BID #180 tabs 02/01/25 Rx clopidogrel 75 mg tablet (Plavix) 75 mg PO DAILY BLOOD THINNER #90 08/10/24 02/01/25 Rx tabs famotidine 20 mg tablet 20 mg PO DAILY #90 TABLETS 1 10/10/23 02/01/25 Rx glimepiride 4 mg tablet 4 mg PO BID BLOOD SUGARS #90 tabs 08/10/24 02/01/25 Rx isosorbide mononitrate 30 mg 30 mg PO DAILY HEART #90 tabs 08/10/24 02/01/25 Rx tablet,extended release 24 hr lisinopril 20 mg tablet 20 mg PO DAILY #90 TABLETS 1 10/10/23 02/01/25 Rx metformin 500 mg tablet 1,000 mg (2 x 500 mg) PO BID BLOOD 08/10/24 02/01/25 Rx SUGARS #360 tabs amlodipine 5 mg tablet 5 mg PO DAILY #90 TABLETS 02/01/25 Rx insulin glargine U-300 conc 300 36 unit (0.12 mL) subc ut DAILY 08/18/24 02/01/25 Rx unit/mL (1.5 mL) subcutaneous pen BLOOD SUGARS #4.5 mL (Toujeo SoloStar U-300 Insulin) tamsulosin 0.4 mg capsule 0.4 mg PO QHS #30 caps 12/3102/01/25 Rx pen needle, diabetic 32 gauge x #100 ea 01/04/2502/01 Rx 1/4 (Comfort EZ Pen Orient) finasteride 5 mg tablet 5 mg PO QDAY 01/27/25 History Have you fallen in the past year?: No PFSH Medical History Diabetes Myocardial infarct Lower urinary tract symptoms (LUTS) Acute urinary retention Hypothyroidism Lumbar radiculopathy, acute Near syncope Chest pain Chest pain Wears glasses History of steroid therapy Insulin dependent diabetes mellitus High cholesterol Stroke/cerebrovascular accident Dietary restriction Heartburn Former smoker Cardiology follow-up encounter History of heart attack History of hemorrhagic cerebrovascular accident (CVA) without residual deficits Carotid artery disease Coronary artery disease Dyspnea on exertion Abnormal stress test History of recent pneumonia Hypertriglyceridemia Cardiomyopathy, ischemic History of left heart catheterization (LHC) BPH (benign prostatic hyperplasia) Multiple lacunar infarcts Hemorrhagic cerebrovascular accident (CVA) DDD (degenerative disc disease) Pure hypercholesterolemia CKD (chronic kidney disease) stage 3, GFR 30-59 ml/min Right carotid artery occlusion Bilateral carotid artery stenosis Essential hypertension Type 2 diabetes mellitus Presence of stent in coronary artery (~08/28/01) 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 pectoris Surgical History History of coronary artery stent placement History of removal of skin mole Hx of LASIK Hx of colonoscopy History of left heart catheterization (LHC) (~06/01/22) History of arthroscopic surgery of shoulder History of laminectomy (~2007) Presence of coronary angioplasty implant and graft (~08/28/01) Family History Mother CAD (coronary artery disease) Diabetes Myocardial infarction, Onset Age: 48 Father Diabetes Breast cancer Brother Diabetes Cancer Brother Cancer Prostate Social History household members: spouse housing: house Smoking Status: Former smoker alcohol intake: never details: occasional substance use type: does not use caffeine: Yes Type: tea Number of servings: 1 what type of physical activity do you participate in: none additional social history: Daily aspirin use. Does not use ibuprofen daily. HPI HPI HPI: COLEMAN DAVIES, is a 74 M who presents to the office today for follow up of bilateral carotid disease; known right ICA occlusion and mild left ICA stenosis.He initially had a left hemispheric CVA which reportedly was hemorrhagic in 2017and was also found to have right ICA occlusion. Symptoms at thattime were garbled speech with no motor/sensory/vision deficit which eventually fully resolved. Recently he was admitted with expressive aphasia lasting about 1 hour.No new infarct seen on MRI and symptoms fully resolved while in ED. 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 ROS General General: No weight change, fatigue, colon cancer or breast cancer HEENT HEENT: No difficulty swallowing, eye surgery or swollen glands Endo Endocrine: Yes diabetes mellitus; No thyroid disease or thyroid cancer Skin Skin: No rash or changing moles Musc Musculoskeletal: Yes back problems; No arthritis, rheumatoid arthritis or gout Cardio Cardiovascular: Yes heart disease, high blood pressure, heart attack and heart stent; No murmur, pacemaker or atrial fibrillation Psych Psychiatric: No depression or anxiety Resp Respiratory: No shortness of breath, No sleep apnea, No cough, No COPD, No asthma and No emphysema Gastro Gastrointestinal: No abdominal pain, No nausea or vomiting, No diarrhea, No constipation, No blood in stool, No acid reflux, No hemorrhoids, No ulcers, No gallbladder problem and No black,tarry stools Porter Hematologic: Yes blood thinners, No blood disorders, No bleeding, No anemia and No blood clots Neuro Neurologic: No numbness, No tingling and Yes other (Stroke/TIA) Exam Const General: cooperative, healthy appearing, comfortable, no acute distress and welldeveloped Nutritional Appearance: well nourished Orientation: alert, awake and oriented x3 HENMT Head: normocephalic and atraumatic Ears: hearing grossly normal bilaterally Nose: external nose normal Eyes General: appearance normal, both eyes and all related structures EOM: EOM intact bilaterally Neck Neck: normal visual inspection, full ROM, no lymphadenopathy and trachea midline Thyroid: thyroid normal Lymphatic: no lymphadenopathy noted Resp Effort & Inspection: normal respiratory effort, able to speak in complete sentences, symmetric chest movement, no audible wheezes, not labored, no stridorand no use of accessory muscles Auscultation: clear to auscultation bilaterally Cardio Rate: regular rate Rhythm: regular rhythm Heart Sounds: no murmurs Bruits: no carotid bruits Pulses: brachial pulses present and radial pulses present Skin General: no rashes or lesions noted and no erythema Wounds: no wounds Neuro Cranial Nerves: CN's II-XI intact bilaterally and EOM intact bilaterally Speech: speech normal Gait: normal gait Motor: strength 5/5 throughout Sensory Exam: no sensory deficits noted Psych Appearance: grossly normal and well kempt Mental Status: mental status grossly normal Mood: congruent mood Speech and Movement: speech and movement normal Thought Content: normal Judgment: judgment good Coding Level of Care Code Off vis,new,level 4 Diagnoses Carotid stenosis, left I65.22 Assessment and Plan Assessment and Plan (1) Carotid stenosis, left: Status: Chronic Comment: CTA- images reviewed, right ICA occlusion, left ICA 41% stenosis Plan: -transient speech disturbance with no significant cervical carotid stenosis -does have significant intracranial vascular occlusive disease as well as right NARDA aneurysm; will refer to NeuroInterventional at [facility] -with regards to cervical ICA disease will plan for yearly surveillance with duplex; most recent duplex revealed low end of 50-69% stenosis by velocity -cont DAPT, avoid hypotension/dehydration Orders: Orders Carotid Duplex Ultrasound 01/14/26 I65.22 - Occlusion and stenosis of left carotid artery Referrals Neurology I67.1 - Cerebral aneurysm, nonruptured Clinical Quality Measures Falls Risk Screening/Assistive Devices Have you fallen in the past year?: No 02/01/25 1743 D> Date _ Mookie Orellana Signature: Date (if applicable) CC: ~ [facility]05-01-2025 [facility]04-30-2025 Evaluation note* Diagnosis Onset Date Resolution Status Admit Date TIA (transient ischemic attack) reso lved January 13, 2025 3:02pm 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 acute January 2:45pm Bilateral carotid artery stenosis acute January 27, 2025 2 :45pm Hemorrhagic cerebrovascular accident (CVA) acute January 27, 2025 2 :45pm Multiple lacunar infarcts acute January 27, 2025 2:45pm Right carotid artery occlusion acute January 27, 2025 2:45pm CKD (chronic kidney disease) stage 3, GFR 30-59 ml/min chronic January 272024 2:45pm Essential hypertension chronic Ma y 2024 2:45pm Type 2 diabetes mellitus chronic January 27, 2025 2:45pm Carotid stenosis, left chronic Ma y 2024 1:31pm Viral infection acute February 06, 2025 11:29am Aneurysm of intracranial artery acut e February 11, 2025 1:21pm Bilateral carotid artery stenosis acute February 11, 2025 1 :21pm Intracranial vascular stenosis acute February 11, 2025 1:21pm Transient ischemia noneactive February 112024 1:21pm [facility] Work Phone: 1(151) 618-769104-30-2025 Evaluation note* Diagnosis Onset Date Resolution Status Admit Date TIA (transient ischemic attack) reso lved January 13, 2025 3:02pm 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 acute January 2:45pm Bilateral carotid artery stenosis acute January 27, 2025 2 :45pm Hemorrhagic cerebrovascular accident (CVA) acute January 27, 2025 2 :45pm Multiple lacunar infarcts acute January 27, 2025 2:45pm Right carotid artery occlusion acute January 27, 2025 2:45pm CKD (chronic kidney disease) stage 3, GFR 30-59 ml/min chronic January 272024 2:45pm Essential hypertension chronic Ma y 2024 2:45pm Type 2 diabetes mellitus chronic January 27, 2025 2:45pm Carotid stenosis, left chronic Ma y 2024 1:31pm Viral infection acute February 06, 2025 11:29am Aneurysm of intracranial artery acut e February 11, 2025 1:21pm Bilateral carotid artery stenosis acute February 11, 2025 1 :21pm Intracranial vascular stenosis acute February 11, 2025 1:21pm Transient ischemia noneactive February 112024 1:21pm Aneurysm of intracranial artery acut e April 12, 2025 12:50pm Bilateral carotid artery stenosis acute April 12, 2025 12:50pm Intracranial vascular stenosis acute April 12, 2025 12:50pm Transient ischemia noneactive March 172024 12:50pm [facility] Work Phone: 1(232) 402-792604-30-2025 Evaluation note* Diagnosis Onset Date Resolution Status Admit Date TIA (transient ischemic attack) reso lved January 13, 2025 3:02pm 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 acute January 2:45pm Bilateral carotid artery stenosis acute January 27, 2025 2 :45pm Hemorrhagic cerebrovascular accident (CVA) acute January 27, 2025 2 :45pm Multiple lacunar infarcts acute January 27, 2025 2:45pm Right carotid artery occlusion acute January 27, 2025 2:45pm CKD (chronic kidney disease) stage 3, GFR 30-59 ml/min chronic January 272024 2:45pm Essential hypertension chronic Ma y 2024 2:45pm Type 2 diabetes mellitus chronic January 27, 2025 2:45pm Carotid stenosis, left chronic Ma y 2024 1:31pm Viral infection acute February 06, 2025 11:29am Aneurysm of intracranial artery acut e February 11, 2025 1:21pm Bilateral carotid artery stenosis acute February 11, 2025 1 :21pm Intracranial vascular stenosis acute February 11, 2025 1:21pm Transient ischemia noneactive February 112024 1:21pm Aneurysm of intracranial artery acut e April 12, 2025 12:50pm Bilateral carotid artery stenosis acute April 12, 2025 12:50pm Intracranial vascular stenosis acute April 12, 2025 12:50pm Transient ischemia noneactive March 172024 12:50pm Aneurysm of intracranial artery acut e April 28, 2025 2:06pm 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 acute April 162024 2:06pm Bilateral carotid artery stenosis acute April 28 2:06pm Diarrhea noneactive May 03, 2 025 1:37pm [facility] Work Phone: 1(844) 338-158304-30-2025 Evaluation note* Diagnosis Onset Date Resolution Status Admit Date TIA (transient ischemic attack) reso lved January 13, 2025 3:02pm 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 acute January 2:45pm Bilateral carotid artery stenosis acute January 27, 2025 2 :45pm Hemorrhagic cerebrovascular accident (CVA) acute January 27, 2025 2 :45pm Multiple lacunar infarcts acute January 27, 2025 2:45pm Right carotid artery occlusion acute January 27, 2025 2:45pm CKD (chronic kidney disease) stage 3, GFR 30-59 ml/min chronic January 272024 2:45pm Essential hypertension chronic Ma y 2024 2:45pm Type 2 diabetes mellitus chronic January 27, 2025 2:45pm Carotid stenosis, left chronic Ma y 2024 1:31pm Viral infection acute February 06, 2025 11:29am Aneurysm of intracranial artery acut e February 11, 2025 1:21pm Bilateral carotid artery stenosis acute February 11, 2025 1 :21pm Intracranial vascular stenosis acute February 11, 2025 1:21pm Transient ischemia noneactive February 112024 1:21pm Aneurysm of intracranial artery acut e April 12, 2025 12:50pm Bilateral carotid artery stenosis acute April 12, 2025 12:50pm Intracranial vascular stenosis acute April 12, 2025 12:50pm Transient ischemia noneactive March 172024 12:50pm Aneurysm of intracranial artery acut e April 28, 2025 2:06pm 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 acute April 162024 2:06pm Bilateral carotid artery stenosis acute April 28 2:06pm 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 acute April 162024 1:37pm Essential hypertension chronic Au 2024 1:37pm Type 2 diabetes mellitus chronic May 03, 2025 1:37pm Diarrhea noneactive May 03, 2 025 1:37pm [facility] Work Phone: 1(709) 971-276602-24-2025 Evaluation note* Diagnosis Onset Date Resolution Status Admit Date 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 acute November 09, 2024 1:18pm Bilateral carotid artery stenosis acute November 09, 2 025 1:18pm Dyslipidemia chronic October 1:18pm Essential hypertension chronic Fe bru2024 1:18pm Type 2 diabetes mellitus chronic November 09, 2024 1:18pm TIA (transient ischemic attack) reso lved January 13, 2025 3:02pm 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 acute January 2:45pm Bilateral carotid artery stenosis acute January 27, 2025 2 :45pm Hemorrhagic cerebrovascular accident (CVA) acute January 27, 2025 2 :45pm Multiple lacunar infarcts acute January 27, 2025 2:45pm Right carotid artery occlusion acute January 27, 2025 2:45pm CKD (chronic kidney disease) stage 3, GFR 30-59 ml/min chronic January 272024 2:45pm Essential hypertension chronic Ma y 2024 2:45pm Type 2 diabetes mellitus chronic January 27, 2025 2:45pm [facility] Work Phone: 1(878) 389-229202-24-2025 Evaluation note* Diagnosis Onset Date Resolution Status Admit Date 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 acute November 09, 2024 1:18pm Bilateral carotid artery stenosis acute November 09, 2 025 1:18pm Dyslipidemia chronic October 1:18pm Essential hypertension chronic Fe bruary 2024 1:18pm Type 2 diabetes mellitus chronic November 09, 2024 1:18pm TIA (transient ischemic attack) resolved January 13, 2025 3:02pm 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 acute January 2:45pm Bilateral carotid artery stenosis acute January 27, 2025 2 :45pm Hemorrhagic cerebrovascular accident (CVA) acute January 27, 2025 2 :45pm Multiple lacunar infarcts acute January 27, 2025 2:45pm Right carotid artery occlusion acute January 27, 2025 2:45pm CKD (chronic kidney disease) stage 3, GFR 30-59 ml/min chronic January 272024 2:45pm Essential hypertension chronic Ma y 2024 2:45pm Type 2 diabetes mellitus chronic January 27, 2025 2:45pm Carotid stenosis, left chronic Ma y 2024 1:31pm Viral infection acute February 06, 2025 11:29am Multiple lacunar infarcts acute February 11, 2025 1:21pm Transient ischemia noneactive February 112024 1:21pm [facility] Work Phone: 1(877) 247-418102-24-2025 Evaluation note* Diagnosis Onset Date Resolution Status Admit Date 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 acute November 09, 2024 1:18pm Bilateral carotid artery stenosis acute November 09, 2 025 1:18pm Dyslipidemia chronic October 1:18pm Essential hypertension chronic Fe bruary 2024 1:18pm Type 2 diabetes mellitus chronic November 09, 2024 1:18pm TIA (transient ischemic attack) reso lved January 13, 2025 3:02pm 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 acute January 2:45pm Bilateral carotid artery stenosis acute January 27, 2025 2 :45pm Hemorrhagic cerebrovascular accident (CVA) acute January 27, 2025 2 :45pm Multiple lacunar infarcts acute January 27, 2025 2:45pm Right carotid artery occlusion acute January 27, 2025 2:45pm CKD (chronic kidney disease) stage 3, GFR 30-59 ml/min chronic January 272024 2:45pm Essential hypertension chronic 2024 2:45pm Type 2 diabetes mellitus chronic January 27, 2025 2:45pm Carotid stenosis, left chronic Ma y 2024 1:31pm [facility] [employer] Work Phone: 1(994) 467-341001-14-2025 Evaluation note* Diagnosis Onset Date Resolution Status Admit Date History of laminectomy acute [facility] 2024 3:24pm Lumbar radiculopathy acute 2024 3:24pm 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 acute November 09, 2024 1:18pm Bilateral carotid artery stenosis acute November 09, 2 025 1:18pm Dyslipidemia chronic October 1:18pm Essential hypertension chronic 2024 1:18pm Type 2 diabetes mellitus chronic November 09, 2024 1:18pm [facility] Work Phone: 1(638) 171-889401-14-2025 Evaluation note* Diagnosis Onset Date Resolution Status Admit Date History of laminectomy acute [facility] 2024 3:24pm Lumbar radiculopathy acute 2024 3:24pm 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 acute November 09, 2024 1:18pm Bilateral carotid artery stenosis acute November 09, 2 025 1:18pm Dyslipidemia chronic October 1:18pm Essential hypertension chronic bru2024 1:18pm Type 2 diabetes mellitus chronic November 09, 2024 1:18pm TIA (transient ischemic attack) reso lved January 13, 2025 3:02pm [facility] [employer] [facility] Work Phone: 1(687) 222-271212-05-2024 Evaluation note* Diagnosis Onset Date Resolution Status Admit Date History of laminectomy acute De cember 2023 8:14am Lumbar radiculopathy acute Dece mber 2023 8:14am History of laminectomy acute Ja nuary 2024 3:24pm Lumbar radiculopathy acute [employer] [facility] 2024 3:24pm 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 acute November 09, 2024 1:18pm Bilateral carotid artery stenosis acute November 09, 2 025 1:18pm Dyslipidemia chronic October 1:18pm Essential hypertension chronic Fe bru2024 1:18pm Type 2 diabetes mellitus chronic November 09, 2024 1:18pm [facility] Work Phone: 1(630) 924-937103-19-2024 History and physical note Author Manuel Gilman [facility] December 03, 2023 6:06am Note Date/Time December 03, 2023 6:0 6am [facility] Medical Records Department [address] [place] [id number] History & Physical Exam 12/03/23 0606 MR#: [id number] Acct: [id number] Name: COLEMAN DAVIES Rep #:[id number] : 1950 73 From: Manuel Gilman MD PCP: Dr. 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 Required: No Is patient in pain?: No Allergies No Known Allergies Allergy (Verified 11/22/23 13:41) Medications ascorbic acid (vitamin C) 500 mg tablet 500 mg PO DAILY 07/05/21 [History Confirmed 11/22/23] aspirin 81 mg tablet,delayed release (Adult Low Dose Aspirin) 81 mg PO DAILY 07/05/21 [History Confirmed 11/22/23] cyanocobalamin (vitamin B-12) 5,000 mcg disintegrating tablet 1,000 mcg PO DAILYCheck with primary doctor 07/05/21 [History Confirmed 11/22/23] cholecalciferol (vitamin D3) 25 mcg (1,000 unit) tablet 25 mcg PO BID 07/20/21 [History Confirmed 11/22/23] carvedilol 6.25 mg tablet 6.25 mg PO BID #180 tabs 03/29/23 [Rx Confirmed 11/22/23] blood sugar diagnostic (OneTouch Verio test strips) #100 ea 04/03/23 [Rx Confirmed 11/22/23] clopidogrel 75 mg tablet (Plavix) 75 mg PO DAILY #90 tabs 04/22/23 [Rx Confirmed 11/22/23] metformin 500 mg tablet 1,000 mg (2 x 500 mg) PO BID #180 tabs 04/24/23 [Rx Confirmed 11/22/23] amlodipine 5 mg tablet 5 mg PO DAILY #90 tabs 05/24/23 [Rx Confirmed 11/22/23] glimepiride 4 mg tablet 4 mg PO BID #90 tabs 05/30/23 [Rx Confirmed 11/22/23] atorvastatin 80 mg tablet 80 mg PO QHS #90 tabs 06/13/23 [Rx Confirmed 11/22/23] lisinopril 20 mg tablet 20 mg PO DAILY #90 tabs 06/13/23 [Rx Confirmed 11/22/23] benzonatate 200 mg capsule 200 mg PO TID PRN cough #20 caps 08/13/23 [Rx Confirmed 11/22/23] pen needle, diabetic 32 gauge x 1/4 (Comfort EZ Pen Orient) #100 ea 10/23/23 [Rx Confirmed 11/22/23] insulin glargine U-300 conc 300 unit/mL (1.5 mL) subcutaneous pen (Toujeo SoloStar U-300 Insulin) 36 unit (0.12 mL) subcut DAILY #4.5 mL 10/28/23 [Rx Confirmed 11/22/23] isosorbide mononitrate 30 mg tablet,extended release 24 hr 30 mg PO DAILY #90 tabs 10/31/23 [Rx Confirmed 11/22/23] [facility] Medical History Abnormal stress test 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 pectoris Bilateral carotid artery stenosis BPH (benign prostatic hyperplasia) Cardiomyopathy, ischemic CKD (chronic kidney disease) stage 3, GFR 30-59 ml/min DDD (degenerative disc disease) Dyspnea on exertion Essential hypertension Hemorrhagic cerebrovascular accident (CVA) History of left heart catheterization (LHC) History of recent pneumonia Hypertriglyceridemia Multiple lacunar infarcts Presence of stent in coronary artery (~08/28/01) Pure hypercholesterolemia Right carotid artery occlusion Type 2 diabetes mellitus Surgical History History of arthroscopic surgery of shoulder History of laminectomy (~2007) History of left heart catheterization (LHC) (~06/01/22) Presence of coronary angioplasty implant and graft (~08/28/01) Family History Mother CAD (coronary artery disease) Diabetes Myocardial infarction, Onset Age: 48Father Diabetes Breast cancerBrother DiabetesBrother Cancer Prostate Social History household members: spouse Smoking Status: Former smoker alcohol intake: current details: occasional substance use type: does not use caffeine: Yes Type: tea Number of servings: 1 what type of physical activity do you participate in: none HPI HPI HPI: 73-year-old gentleman is being referred by Dr. Briseyda Sinclair for surgical consultation regarding new onset mild anemia and a written compromise surgical consult recommendations will return to him. The patient is on multiple medications which include low-dose aspirin 81 mg and clopidogrel 75 mg daily. He is diabetic. He has a history of atherosclerotic coronary vascular disease. Also has known bilateral carotid artery stenosis and stage III chronic kidney disease. By report has had multiple lacunar infarcts. He has a right carotid occlusion for which I follow him. On routine laboratory August 20, 2023 hemoglobin is 14.1 and hematocrit 41.5. I recheck on November 06, 2023 demonstrates a hemoglobin of 12.4 and hematocrit of 37.2. That was rechecked on November 19, 2023 with a hemoglobin of 12.5 and hematocrit of 37.6. Platelet count has been steady and most recently 289. BUN currently is 23 with a creatinine of 1.14. Interestingly on August 20, 2023 the BUN was higher at 41 and creatinine is 1.38. His current calcium level is slightly elevated at 10.4. Liver function tests are normal. On August 20, 2023 his urine glucose was of thousand and his urine specific gravity was 1.015. Dating back to January 08, 2022 his hemoglobin was as high as 16.5 at that time The patient had a stroke in 2017. This got a completely occluded right carotid. Less than 50% stenosis of his left carotid. 2018 he had a Cologuard test performed. He is being managed managed with low-dose aspirin and clopidogrel therapy. He does have occasional reflux symptoms and he takes Tums to assist. He has notnoticed any bright red blood per rectum or melena. He has had a remote colonoscopy. He was told after his stroke that he was too high risk initially to have a colonoscopy and therefore the Cologuard was recommended. Since his stroke however he has not had additional episodes. He denies of any abdominal pain. He is not very active does any do any purposeful exercise. ROS General General: Yes weight change and fatigue; No appetite, colon cancer, breast cancer or weakness Additional Details: weight loss HEENT HEENT: No difficulty swallowing, eye injury, eye surgery, swollen glands or hoarseness Endo Endocrine: Yes diabetes mellitus; No thyroid disease, thyroid cancer, Hair loss, heat intolerance or cold intolerance Skin Skin: No rash or changing moles Breast Breast: No left breast lump, right breast lump, nipple discharge, breast pain, abnormal mammogram, abnormal US or breast enlargement Musc Musculoskeletal: No back problems, arthritis, rheumatoid arthritis, gout or joint pain Cardio Cardiovascular: Yes heart disease, high blood pressure, heart attack and heart stent; No murmur, pacemaker, atrial fibrillation, palpitations, shortness of breat withexertion or chest pain Psych Psychiatric: No depression, anxiety or hearing voices Resp Respiratory: No shortness of breath, No sleep apnea, No cough, No COPD, No asthma, No emphysema and No wheezing Gastro Gastrointestinal: No abdominal pain, No nausea or vomiting, No diarrhea, No constipation, No blood in stool, No acid reflux, No hemorrhoids, No ulcers, No gallbladder problem and No black,tarry stools Porter Hematologic: Yes blood thinners, No blood disorders, No bleeding, No anemia and No blood clots Neuro Neurologic: No system reviewed and no additional complaints, except as documented, No as per HPI, No abnormal gait, No abnormal hearing, No abnormal movements, No abnormal speech, No behavioral changes, No burning sensations, No confusion, No convulsions, No disequilibrium, No dizziness, No localized weakness, No frequent falls, No headache(s), No lack of coordination, No loss ofvision, No memory loss, No numbness, No other visual disturbances, No radicular pain, No restless legs, No sensory deficit, No syncope, No tingling, No tremor(s), No weakness and Yes other (Stroke/TIA) Exam Const General: cooperative, comfortable and no acute distress Nutritional Appearance: average body habitus Orientation: alert, awake and oriented x3 HENMT Head: normal to inspection Other: Some facial droop on the left Eyes General: appearance normal, both eyes and all related structures Neck Neck: normal visual inspection Other: Carotids are 3+ bilaterally. I do not detect a carotid bruit. Chest Chest palpation & inspection: normal inspection of the chest Resp Effort & Inspection: normal respiratory effort Auscultation: clear to auscultation bilaterally Cardio Rate: regular rate Rhythm: regular rhythm GI Inspection: normal to inspection Palpation: soft and no hepatosplenomegaly Musc Cervical Spine: normal cervical lordosis Skin General: no rashes or lesions noted Neuro General: patient alert, patient awake and patient oriented x3 Extrem General: no calf tenderness Psych Appearance: grossly normal Assessment and Plan Assessment and Plan (1) Anemia: Status: Acute Qualifiers: Anemia type: unspecified type Qualified Code(s): D64.9 - Anemia, unspecified (2) History of colon polyps: Status: Acute (3) Carotid artery disease: Status: Chronic Qualifiers: Carotid artery disease type: occlusion Laterality: right Qualified Code(s): I65.21 - Occlusion and stenosis of right carotid artery Plan Patient has known occlusion of his right carotid and less than 50% stenosis of his left carotid. I have most recently seen him March 07, 2003 and evaluation ofthat and he has a follow-up planned February 2024. I am recommending to the patient a combined esophagogastroduodenoscopy with possible biopsy and colonoscopy with possible biopsy or polypectomy as indicated. He is aware of the technique, benefit, risk, alternatives. We will need to have him hold his Plavix briefly preprocedure. Anticipating approximately 3 days. He has had an opportunity to ask and have questions answered. We will schedule and expedite his care. I appreciate the opportunityof assisting with his surgical care. I have explained to the patient and his that I believe he is far enough away from his index stroke to allow us to proceed safely with monitored anesthesia care in the upper and lower endoscopy. Although I did not promise him that it is risk- free I believe that with him having a history of being a tobacco smoker and with him having indigestion symptoms taking Tums and the new onset mild anemia that it is intentional upper and lower endoscopy risk-benefit ratio is in his favor and certainly more diagnostic and possibly therapeutic than other options. He has had an opportunity ask and have questions answered. He is willing to proceed. We will schedule procedure at his discretion. We will do our best to expedite. I appreciate the ongoing option of assisting withhis surgical care Copy: Dr. Briseyda Gilman M.D., F.A.C.S. I have examined the patient and the H&P has been reviewed. There are no clinicalchanges since date of exam. Manuel Gilman M.D., F.A.C.S. 12/03/23 0606 <Electronically signed by Manuel Gilman MD> Cosigner Signature (if applicable): CC: Dr. Briseyda Sinclair MD; Dr. Manuel Gilman MD~ Signed [facility] Work Phone: [phone] Procedure [facility] 12-03-2023 Procedure [facility]03-19-2024 Procedure note [facility]03-19-2024 Procedure [facility] 08-20-2023 Hospital Discharge instructions Additional Instructions Creatinine 1.3 today GFR of 54. Sodium 137. White count 8.0. Hemoglobin 14. Glucose 271, anion gap 9. You are dealing with COVID symptoms. Continue oral fluids for hydration. Follow-up with your doctor. Return if any worsening symptoms for reevaluation.[facility] Work Phone: 1(549) 937-594005-27-2022 NoteHNO ID: [id number] Author: Maria Elena Zhong, PT Service: ? Author Type: Physical Therapist Type: Progress Notes Filed: 02/09/2022 9:55 AM Note Text: Episode Visit Count: 5 Therapist That Will Oversee The Plan Of Care: Maria Elena Zhong Start of Care Date: 12/28/21 Onset Date: [...] 02/02/2022 through 03/16/22 Goals updated on 02/09/2022. [place] in home exercise program. -- MET Patient [...] Treatment Time Minutes (timed/untimed): 30 Maria Elena Zhong [facility]05-27-2022 History of Present illness Narrative* Maria Elena Zhong, PT - 02/09/2022 9:33 AM EDT Episode Visit Count: 5 Therapist That Will Oversee The Plan Of Care: Maria Elena Zhong Start of Care Date: 12/28/21 Onset Date: [...] 02/02/2022 through 03/16/22 Goals updated on 02/09/2022. [place] in home exercise program. -- MET Patient [...] Treatment Time Minutes (timed/untimed): 30 Maria Elena Zhong PT [facility] NoteHNO ID: [id number] Author: Maria Elena Zhong PT Service: ? Author Type: Physical Therapist Type: Progress Notes Filed: 02/02/2022 3:25 PM Note Text: Episode Visit Count: 4 Therapist That Will Oversee The Plan Of Care: Maria Elena Zhong Start of Care Date: 12/28/21 Onset Date: 12/28/14 Plan of Care Certification Date: 02/02/22 Next Certification Due Date: 03/09/22 Patient Identified by Name and Date of : Yes REHABILITATION AND SPORTS THERAPY PHYSICAL THERAPY PROGRESS REPORT PLAN OF CARE UPDATE: Assessment: Coleman Davies demonstrates significant improvement in lifting, working, [...] 01/19/2022 Goals updated on 02/02/2022 through 03/16/22 [place] in home exercise program. -- MET Patient [...] Patient to be seen for Therapeutic exercise (25437) PLAN FOR NEXT VISIT: Continued PT visits [...] shoulder, scapular elev (more content not included)... [facility]05-20-2022 History of Present illness Narrative* Maria Elena Zhong, PT - 02/02/2022 9:31 AM EDT Episode Visit Count: 4 Therapist That Will Oversee The Plan Of Care: Maria Elena Zhong Start of Care Date: 12/28/21 Onset Date: 12/28/14 Plan of Care Certification Date: 12/28/21 Next Certification Due Date: 02/01/22 REHABILITATION AND SPORTS THERAPY PHYSICAL THERAPY TREATMENT NOTE ASSESSMENT: Coleman Davies tolerated the session with no issues. He demonstrated improvements in shoulder AROM without complaints of pain with all exercises today. The patient will continue to benefit from ongoing skilled physical therapy to progress toward set goals. Current Frequency: 1x/week Planned Treatment Interventions: Therapeutic exercise (04799) PLAN FOR NEXT VISIT: PN next visit, [...] Treatment Time Minutes (timed/untimed): 40 Maria Elena Zhong PT documented in [facility] encounterJ[facility] NoteHNO ID: [id number] Author: Maria Elena Zhong PT Service: ? Author Type: Physical Therapist Type: Progress Notes Filed: 01/26/2022 9:15 AM Note Text: Episode Visit Count: 3 Therapist That Will Oversee The Plan Of Care: Maria Elena Zhong Start of Care Date: 12/28/21 Onset Date: 12/28/14 Plan of Care Certification Date: 12/28/21 Next Certification Due Date: 02/01/22 REHABILITATION AND SPORTS THERAPY PHYSICAL THERAPY TREATMENT NOTE ASSESSMENT: Coleman Davies tolerated the session with no issues. [...] Frequency: 1x/week Planned Treatment Interventions: Therapeutic exercise (01941) PLAN FOR NEXT VISIT: SUBJECTIVE: Patient Reason [...] Treatment Time Minutes (timed/untimed): 30 Maria Elena Zhong, [facility]05-13-2022 History of Present illness Narrative* Maria Elena Zhong, PT - 01/26/2022 8:41 AM EDT Episode Visit Count: 3 Therapist That Will Oversee The Plan Of Care: Maria Elena Zhong Start of Care Date: 12/28/21 Onset Date: 12/28/14 Plan of Care Certification Date: 12/28/21 Next Certification Due Date: 02/01/22 REHABILITATION AND SPORTS THERAPY PHYSICAL THERAPY TREATMENT NOTE ASSESSMENT: Coleman Davies tolerated the session with no issues. He demonstrated improvements in AROM tolerance and denied pain with active reaching over head activity today. Pt. Does demonstrate difficulty with AAROM and theraband resisted AROM ER with the shoulder at 0 degrees of abduction. The p atient will continue to benefit from ongoing skilled physical therapy to progress toward set goals. Current Frequency: 1x/week Planned Treatment Interventions: Therapeutic exercise (22801) PLAN FOR NEXT VISIT: SUBJECTIVE: Patient Reason for Visit: Pt. reports his strength is much better. He has been releasedby his doctor to return to yard work [...] Treatment Time Minutes (timed/untimed): 30 Maria Elena Zhong PT documented in this encounterJ[facility]. [facility] NoteHNO ID: [id number] Author: Maria Elena Zhong PT Service: ? Author Type: Physical Therapist Type: Progress Notes Filed: 01/19/2022 10:07 AM Note Text: Episode Visit Count: 2 Therapist That Will Oversee The Plan Of Care: Maria Elena Zhong Start of Care Date: 12/28/21 Onset Date: 12/28/14 Plan of Care Certification Date: 12/28/21 Next Certification Due Date: 02/01/22 REHABILITATION AND SPORTS THERAPY PHYSICAL THERAPY PROGRESS REPORT PLAN OF CARE UPDATE: Assessment: Coleman C Delac demonstrates moderate improvement in reaching behind back, [...] 12/28/21 through 02/08/22 Goals updated on 01/19/2022. [place] in home exercise program. -- MET Patient [...] Patient to be seen for Therapeutic exercise (88206);Self-custodial management (99206);Therapeutic activities (20639);Patient/Family/Caregiver Education;Manual therapy (75755) SUBJECTIVE: Patient Reason for Visit: Pt. reports [...] Intervention: Patient was educ (more content not included)...[facility]05-06-20[facility] History of Present illness Narrative* Maria Elena Zhong, PT - 01/19/2022 9:28 AM EDT Episode Visit Count: 2 Therapist That Will Oversee The Plan Of Care: Maria Elena Zhong Start of Care Date: 12/28/21 Onset Date: 12/28/14 Plan of Care Certification Date: 12/28/21 Next Certification Due Date: 02/01/22 REHABILITATION AND SPORTS THERAPY PHYSICAL THERAPY PROGRESS REPORT PLAN OF CARE UPDATE: Assessment: Coleman Davies demonstrates moderate improvement in reaching behind back, reaching overhead and use hand with arm at shoulder level. He hasprogressed toward goals. Patient continues to present with impairments in ADL's, overall function, patient reported outcome measures and strength that interfere with lifting;throwing;reaching behind back;reaching overhead;use hand with arm at shoulder level . Current prognosis is Excellent due to: positive past response to therapy;within-sessionchanges;good support system/ coping skills;good overall health status;current objective clinical presentation . He will benefit from continued skilled therapy services to meet the updated goals for this plan of care as noted below. Goals for Episode of Care: created on 12/28/21 through 02/08/22 Goals updated on 01/19/2022. [place] in home exercise program. -- MET Patient [...] Patient to be seen for Therapeutic exercise (47004);Self-custodial management (51553);Therapeutic activities (65054);Patient/Family/Caregiver Education;Manual therapy (84461) SUBJECTIVE: Patient Reason for Visit: Pt. reports [...] and function . Patient education as noted. Self-Mcfp Management: 1: *continue wand exercises for stretching [...] Treatment Time Minutes (timed/untimed): 30 Maria Elena Zhong PT documented in this encounterJ.[facility]. [facility]04-[facility] NoteHNO ID: [id number] Author: Maria Elena Zhong PT Service: ? Author Type: Physical Therapist Type: Progress Notes Filed: 12/28/2021 12:29 PM Note Text: Episode Visit Count: 1 Therapist That Will Oversee The Plan Of Care: Maria Elena Zhong Start of Care Date: 12/28/21 Onset Date: 12/28/14 Plan of Care Certification Date: 12/28/21 Next Certification Due Date: 02/01/22 Patient Identified by Name and Date of : Yes REHABILITATION AND SPORTS THERAPY PHYSICAL THERAPY EVALUATION PLAN OF CARE: Assessment: Coleman Davies presents with diagnosis of adhesive capsulitis [...] of Care: created on 12/28/21 through 02/08/22 [place] in home exercise program. Patient will decrease [...] Planned: 6 Planned Treatment Interventions: Therapeutic exercise (01330);Self-custodial management (20589);Therapeutic activities (20957);Patient/Family/Caregiver Education;Manual therapy (13474) Patient demonstrates good understanding of plan of care and treatment. The above goals and plan of care were discussed and agreed upon by patient/family. SUBJECTIVE: Coleman Davies is a 71 year old male [...] tasks this summer. Pt. moved here from [place], [place] 6 months ago. Now lives at [facility]. Patient Goals: don/doff jacket without assistance and return to yard work tasks without limitation due to R shoulder pain Functional Limitations: lifting;throwing;reaching behind back;reaching overhead;use hand with arm at shoulder level Prior Level of Function: Independent without limitations Relevant History Past Relevant Medical Conditions: Cardiac;Diabetes;Hypertension;Kidney Problems Past Relevant Surgical Conditions: Rotator Cuff Repair-Right Preferred Language: [place] Right or Left Handed: Left Home Environment [...] in relation to the (more content not included)...[facility] 12-28-2021 History of Present illness Narrative* Maria Elena Zhong, PT - 12/28/2021 11:19 AM EDT Episode Visit Count: 1 Therapist That Will Oversee The Plan Of Care: Maria Elena Zhong Start of Care Date: 12/28/21 Onset Date: 12/28/14 Plan of Care Certification Date: 12/28/21 Next Certification Due Date: 02/01/22 Patient Identified by Name and Date of : Yes REHABILITATION AND SPORTS THERAPY PHYSICAL THERAPY EVALUATION PLAN OF CARE: Assessment: Coleman Davies presents with diagnosis of adhesive capsulitis of right shoulder that interferes with lifting;throwing;reaching behind back;reaching overhead;use hand with arm at shoulderlevel . He presents with impairments in flexibility, independence in exercise, joint mobility, overall function, patient reported outcome measures, range of motion and strength . Prognosis for therapy is Excellent due to: positive past response to therapy;within-session changes;good support system/coping skills;good overall health status;current objective clinical presentation . He will benefit from skilled therapy services to meet the goals established for this plan of care as noted below. Goals for Episode of Care: created on 12/28/21 through 02/08/22 [place] in home exercise program. Patient will decrease [...] Planned: 6 Planned Treatment Interventions: Therapeutic exercise (71195);Self-custodial management (24260);Therapeutic activities (99060);Patient/Family/Caregiver Education;Manual therapy (15526) Patient demonstrates good understanding of plan of care and treatment. The above goals and plan of care were discussed and agreed upon by patient/family. SUBJECTIVE: Coleman Davies is a 71 year old male [...] tasks this summer. Pt. moved here from [place], [place] 6 months ago. Now lives at [facility]. Patient Goals: don/doff jacket without assistance and return to yard work tasks without limitation due to R shoulder pain Functional Limitations: lifting;throwing;reaching behind back;reaching overhead;use hand with arm at shoulder level Prior Level of Function: Independent without limitations Relevant History Past Relevant Medical Conditions: Cardiac;Diabetes;Hypertension;Kidney Problems Past Relevant Surgical Conditions: Rotator Cuff Repair-Right Preferred Language: [place] Right or Left Handed: Left Home Environment [...] Functional Strength: Lifting Education: Education Learning Preferences: Demonstration;Performance;Printed Materials;Explanation Barriers: None Learning/educational needs: Posture;Home exercise program;Plan of Care Education Provided: Yes, see treatment interventions for education provided Education Provided To: Patient Education Mode/Type: Demonstration;Explanation/Discussion;Literature/Printed Materials;Performance Response to Education/Teach Back: States/Identifies;Return Demonstration TREATMENT: PT Treatment Interventions: Therapeutic Exercise;Self-Mcfp Management Evaluation Evaluation Therapeutic Exercise: 1: *valentin [...] and function . Patient education as noted. Self-Mcf[facility] Management: 1: *postural education 2: *staying within [...] Treatment Time Minutes (timed/untimed): 45 Maria Elena Zhong PT documented in this encounterJ[facility]. [facility] Evaluation note* Diagnosis Onset Date Resolution Status Bilateral carotid artery stenosis acute Essential hypertension acute Hypertriglyceridemia acute Multiple lacunar infarcts [place] Presence of stent in coronary artery August, acute Pure hypercholesterolemia [place] Right carotid artery occlusion acute Type 2 diabetes mellitus acu te CKD (chronic kidney disease) stage 3, GFR 30-59 ml/min chronic Hyperglycemia acute Lactic acidosis acute Weakness acute [facility] Work Phone: Discharge summary Author Ravinder Vance [facility] Note Date/Time March 29, 2025 10:1 2am [facility] Medical Records Department [address] [place] [address] Emergency Department Summary 03/29/25 MR#: [id number] Acct: [id number] Name: COLEMAN DAVIES Rep #:[id number] : 1950 74 From: Ravinder Vance DO PCP: Dr. Briseyda Sinclair MD Status:REG ER Location: ED ADDENDUM by Dr. Blake Kapoor MD on 03/29/25 at 1012 Patient checked out to me shift change. Second troponin came back at 35 down from 39, reassuring in context of his normal EKG. His heart score is 1, 0, 2, 2, 0 = 5. Currently not having chest discomfort. Stable for discharge and close outpatient follow-up and we discussed reasons to return he is comfortable with that plan as is his . Of note the patient walks 5000 steps 3 times perweek and does not get angina. 03/29/25 1012<Electronically signed by Blake Kapoor MD> Cosigner Signature (if applicable): cc: Dr. Briseyda Sinclair MD ~* Signed HPI History of Present Illness Chief Complaint: Chest Pain Informant: patient and spouse/S.O. Narrative Narrative: Patient is a 74-year-old male with past medical history of hypertension as well as type 2 diabetes and coronary artery disease that required stent placement in 2000. He states that he was recently transitioned from Plavix to Brilinta. He states he began taking that on Saturday. He states shortly after he has had intermittent episodes of lightheadedness/dizziness. He states that on Saturday hehad multiple bouts of loose stool/diarrhea as well but it resolved after taking [id number] Imodium. He states this morning around 4:00 he awoke and noticed vague chest discomfort. He states there was no associated nausea vomiting diaphoresis or shortness of breath. He does report there is mild radiation into his left arm. He states with his past history of CAD and stent placement he was concerned this could be secondary to his heart and therefore comes in for evaluation [facility] Medical History Diabetes Myocardial infarct Lower urinary tract symptoms (LUTS) Acute urinary retention Hypothyroidism Lumbar radiculopathy, acute Near syncope Chest pain Chest pain Wears glasses History of steroid therapy Insulin dependent diabetes mellitus High cholesterol Stroke/cerebrovascular accident Dietary restriction Heartburn Former smoker Cardiology follow-up encounter History of heart attack History of hemorrhagic cerebrovascular accident (CVA) without residual deficits Carotid artery disease Coronary artery disease Dyspnea on exertion Abnormal stress test History of recent pneumonia Hypertriglyceridemia Cardiomyopathy, ischemic History of left heart catheterization (LHC) BPH (benign prostatic hyperplasia) Multiple lacunar infarcts Hemorrhagic cerebrovascular accident (CVA) DDD (degenerative disc disease) Pure hypercholesterolemia CKD (chronic kidney disease) stage 3, GFR 30-59 ml/min Right carotid artery occlusion Bilateral carotid artery stenosis Essential hypertension Type 2 diabetes mellitus Presence of stent in coronary artery (~08/28/01) 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 pectoris Home Medications ?Medication ?Instructions ?Recorded ?Last Taken ?Type ascorbic acid (vitamin C) 500 mg 500 mg PO DAILY SUPPL EMENT 07/05/21 01/11/25 History tablet aspirin 81 mg tablet,delayed 81 mg PO DAILY HEART HEAL TH 07/05/21 01/11/25 History release (Adult Low Dose Aspirin) cyanocobalamin (vitamin B-12) 1,000 mcg PO DAILY SUPPL EMENT 07/05/21 01/12/25 History 5,000 mcg disintegrating tablet cholecalciferol (vitamin D3) 25 25 mcg PO BID SUPPLEME NT 07/20/21 01/12/25 History mcg (1,000 unit) tablet nitroglycerin 0.4 mg sublingual 0.4 mg sublingual Q5-1 5M PRN chest 03/16/24 Unknown Rx tablet pain #25 tabs lancets 33 gauge (Catie Blackman #100 ea 05/04/24 Unk nown Rx Plus Lancet) atorvastatin 80 mg tablet 80 mg PO QHS #90 TABLETS 01/11/25 Rx carvedilol 12.5 mg tablet 12.5 mg PO BID #180 tabs 01/12/25 Rx famotidine 20 mg tablet 20 mg PO DAILY #90 TABLETS 1 10/10/23 01/11/25 Rx isosorbide mononitrate 30 mg 30 mg PO DAILY HEART #90 tabs 08/10/24 01/11/25 Rx tablet,extended release 24 hr lisinopril 20 mg tablet 20 mg PO DAILY #90 TABLETS 1 10/10/23 01/12/25 Rx metformin 500 mg tablet 1,000 mg (2 x 500 mg) PO BID BLOOD 08/10/24 01/12/25 Rx SUGARS #360 tabs amlodipine 5 mg tablet 5 mg PO DAILY #90 TABLETS 01/11/25 Rx insulin glargine U-300 conc 300 36 unit (0.12 mL) subc ut DAILY 08/18/24 01/12/25 07:00 Rx unit/mL (1.5 mL) subcutaneous pen BLOOD SUGARS #4.5 mL (Toujeo SoloStar U-300 Insulin) pen needle, diabetic 32 gauge x #100 ea 01/04/25 Unkno wn Rx 1/4 (Comfort EZ Pen Orient) finasteride 5 mg tablet 5 mg PO QDAY 01/27/25 Unknow n History blood sugar diagnostic (OneTouch #100 ea 02/24/25 Unkn own Rx Verio test strips) glimepiride 4 mg tablet 4 mg PO BID BLOOD SUGARS #90 tabs 02/25/25 Unknown Rx tamsulosin 0.4 mg capsule 0.4 mg PO QHS #90 caps 03/26 Unknown Rx ticagrelor 90 mg tablet 90 mg PO BID 03/29/25 Unknow n History Allergy/AdvReac Type Severity Reaction Status Date / Time No Known Allergies Allergy Verified 02/11/25 13:30 Family History Mother CAD (coronary artery disease) Diabetes Myocardial infarction, Onset Age: 48 Father Diabetes Breast cancer Brother Diabetes Cancer Brother Cancer Prostate Surgical History History of coronary artery stent placement History of removal of skin mole Hx of LASIK Hx of colonoscopy History of left heart catheterization (LHC) (~06/01/22) History of arthroscopic surgery of shoulder History of laminectomy (~2007) Presence of coronary angioplasty implant and graft (~08/28/01) Social History household members: spouse housing: house Smoking Status: Former smoker alcohol intake: never details: occasional substance use type: does not use caffeine: Yes Type: tea Number of servings: 1 what type of physical activity do you participate in: none additional social history: Daily aspirin use. Does not use ibuprofen daily. ROS ROS ED Constitutional Constitutional ED: Denies chills or fever(s) Eyes Eyes: Denies change in vision ENT ENT ED: Denies sore throat Cardiovascular Cardiovascular: Reports chest pain; Denies palpitations or racing heartbeat Respiratory/Chest Respiratory/Chest: Denies cough or dyspnea Gastrointestinal Gastrointestinal: Reports diarrhea; Denies abdominal pain, nausea or vomiting Genitourinary Genitourinary ED: Denies dysuria Musculoskeletal Musculoskeletal: Denies myalgias Integumentary Denies rash Neurologic Neurologic: Reports other Details: Positive dizziness ; Denies headache(s) Hematologic/Lymphatic Hematologic/Lymphatic: Reports easy bleeding and easy bruising EXAM Physical Exam Const Vital Signs: 03/29/25 06:20 03/29/25 06:23 Temperature 98.0 F Temperature Source Oral Pulse Rate 90 Respiratory Rate 13 Respiratory Effort Normal Non-Labored Blood Pressure 155/74 H Blood Pressure Mean 101 Pulse Ox 99 Oxygen Delivery Method Room Air Positive well nourished and well developed General Appearance ED: well developed; Negative for pallor HEENT HEENT Narrative: Mucous membranes are slightly dry and tacky No tongue or lip swelling no oral lesions no airway edema or compromise No secondary findings in the posterior pharynx to suggest infection Eyes PERRL and EOMs intact bilaterally General Eye ED: Negative for pale conjunctiva or scleral icterus Neck supple and no JVD Neck Narrative: No nuchal rigidity or meningeal signs Chest Wall palpation of chest normal Chest Narrative: No bony deformity or subcutaneous emphysema noted Resp normal respiratory effort and clear to auscultation bilaterally Cardio regular rate and regular rhythm Rate: other Other Details: Heart is regular rate and rhythm Radial and carotid pulses are equal and symmetric GI non-distended and no masses GI Narrative: Abdomen is soft and nondistended with normal active bowel sounds. There is mildpain with palpation in the midepigastric region. No voluntary guarding or rigidity. No pulsatile mass or fluid wave Auscultation: normoactive bowel sounds Palpation: soft Extremity normal to inspection Extremity Narrative: No asymmetric edema no pitting edema negative Homans' sign bilaterally Neuro oriented x3, CN's II-XII intact bilaterally and no sensory deficits noted Neuro Narrative: GCS of 15 Cranial nerves II through XII are grossly intact without focal neurologic deficit No pronator drift no dysmetria no truncal ataxia No nystagmus noted NIH stroke scale score is 0 Sensorium / Orientation: alert Motor Exam: strength 5/5 throughout Psych mental status grossly normal Skin no rashes or lesions noted and No skin turgor normal Skin Narrative: Skin turgor is increased General Skin Exam: Negative for jaundice or pallor MDM MDM MDM Narrative Medical decision making narrative: Patient arrived to the ER slightly hypertensive but otherwise with stable vitalsand he does have a past medical history of this. He reported intermittent dizziness for the last 2 days which she states could occur spontaneously. By exam he does not have truncal ataxia and his neurologic exam is normal going against a posterior circulation stroke or vertebrobasilar insufficiency and therefore I feel no need for a CTA. He will be given IV fluids as his physical exam does show mild dehydration. Chart review was performed and it does show that Brilinta can cause dizziness in approximately 4-1/2% of patients . Therefore this could be the cause of his new symptoms because it did start afterhe began using . However because of his report of chest discomfort and history of CAD a basic cardiac workup was obtained. As he did have pain in the midepigastric region he could have pancreatitis or atypical biliary colic so basic abdominal labs such as lipase and hepatic function panel were ordered as well. The patient's EKG did not any signs of acute STEMI/ischemia. At this time the patient's laboratory studies as well as the initial and delta troponinsare still pending. Therefore he will be signed out to the physician Dr. Kapoor. At this time the patient's CAD has been stable since 2000 and his EKG does not show acute NE and therefore I feel if his overall workup is negative he should be safe for discharge with outpatient follow. History & Record Review Discussion w/independent historian: Patient and Significant other Lab Data Attestation: I reviewed the patient's lab results. Labs: Laboratory Results - last 24 hr 03/29/25 06:30 WBC 4.9 RBC 3.77 L Hgb 11.8 L Hct 34.3 L MCV 91.0 MCH 31.3 MCHC 34.4 RDW Std Deviation 42.4 RDW Coeff of Rich 13.0 Plt Count 238 MPV 9.9 Immature Gran % (Auto) 0.200 Neut % (Auto) 50.2 Lymph % (Auto) 31.8 Hawkins % (Auto) 10.5 H Eos % (Auto) 6.7 H Baso % (Auto) 0.6 Absolute Neuts (auto) 2.5 Absolute Lymphs (auto) 1.57 Radiography Diagnostic Testin view chest x-ray is interpreted by the emergency medicine physician reveals noacute infiltrate pneumothorax pleural effusion or widening of the mediastinum Discharge Plan Triage Chief Complaint: Chest Pain ED Provider: Ravinder Vance Dx/Rx/DC Orders Prescriptions: No Action cyanocobalamin (vitamin B-12) 5,000 mcg tablet,disintegrating 1,000 mcg PO DAILY ascorbic acid (vitamin C) 500 mg tablet 500 mg PO DAILY aspirin [Adult Low Dose Aspirin] 81 mg tablet,delayed release (DR/EC) 81 mg PO DAILY cholecalciferol (vitamin D3) 25 mcg (1,000 unit) tablet 25 mcg PO BID nitroglycerin 0.4 mg tablet, sublingual 0.4 mg sublingual Q5-15M PRN (Reason: chest pain) Qty: 25 3RF Rx Instructions: do not exceed 3 doses per episode finasteride 5 mg tablet 5 mg PO QDAY ticagrelor 90 mg tablet 90 mg PO BID (DME) lancets [OneTouch Delica Plus Lancet] 33 gauge misc See Rx Instructions .Route Qty: 100 0RF Rx Instructions: As directed Twice Daily to monitor blood glucose for DM II carvedilol 12.5 mg tablet 12.5 mg PO BID Qty: 180 3RF isosorbide mononitrate 30 mg tablet extended release 24 hr 30 mg PO DAILY Qty: 90 3RF atorvastatin 80 mg tablet 80 mg PO QHS Qty: 90 3RF famotidine 20 mg tablet 20 mg PO DAILY Qty: 90 3RF lisinopril 20 mg tablet 20 mg PO DAILY Qty: 90 3RF metformin 500 mg tablet 1,000 mg PO BID Qty: 360 3RF amlodipine 5 mg tablet 5 mg PO DAILY Qty: 90 3RF Patient Comments: PT TAKES AT BEDTIME insulin glargine U-300 conc [Toujeo SoloStar U-300 Insulin] 300 unit/mL (1.5 mL) insulin pen 36 unit subcut DAILY Qty: 4.5 5RF (DME) pen needle, diabetic [Comfort EZ Pen Orient] 32 gauge x 1/4 needle See Rx Instructions .Route Qty: 100 5RF Rx Instructions: once daily to administer insulin.. 6mm pen needle (DME) OneTouch Verio test strips Strip See Rx Instructions .ROUTE .MEDSUPPLY Qty: 100 11RF Rx Instructions: use as directed twice daily t monitor blood glucose for type 2 DM glimepiride 4 mg tablet 4 mg PO BID Qty: 90 3RF tamsulosin 0.4 mg capsule 0.4 mg PO QHS Qty: 90 3RF Primary Care Provider: Briseyda Sinclair Referrals: Briseyda Sinclair MD [Primary Care Provider] - Print Language: [place] What to do if you have Problems For any increased pain, shortness of breath, bleeding, nausea or vomiting, chestpain, or any unexpected problems, contact your Primary Care Provider. Call [facility] ([phone]) or report to the closest Emergency Room. Call 911 if necessary. 03/29/25 0723 <Electronically signed by Ravinder Vance DO> Cosigner Signature (if applicable): CC: Dr. Briseyda Sinclair MD ~ Signed [facility] Work Phone: Evaluation noteThere may be information available, but it has not been provided by the sender.[facility] Work Phone: Evaluation note* Diagnosis Adhesive capsulitis of right shoulder- Primary Adhesive capsulitis of shoulder [facility] Adhesive capsulitis of right shoulder Adhesive capsulitis of shoulder [facility] Diagnosis Adhesive capsulitis of right shoulder Adhesive capsulitis of shoulder [facility] Diagnosis Adhesive capsulitis of right shoulder Adhesive capsulitis of shoulder [facility] Diagnosis Adhesive capsulitis of right shoulder Adhesive capsulitis of shoulder [facility] Diagnosis Onset Date Resolution Status Hyperglycemia resolved Lactic acidosis resolved Weakness resolved 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 acute Cardiomyopathy, ischemic acu te Essential hypertension acute History of recent pneumonia acute Hypertriglyceridemia acute Presence of stent in coronary artery August, acute Type 2 diabetes mellitus acu te CKD (chronic kidney disease) stage 3, GFR 30-59 ml/min chronic Weakness resolved 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 acute Bilateral carotid artery stenosis acute Essential hypertension acute Hemorrhagic cerebrovascular accident (CVA) acute History of recent pneumonia acute Hypertriglyceridemia acute Right carotid artery occlusion acute Type 2 diabetes mellitus acu te CKD (chronic kidney disease) stage 3, GFR 30-59 ml/min [facility] Work Phone: Evaluation note* Diagnosis Onset Date Resolution Status 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 acute Bilateral carotid artery stenosis acute Essential hypertension acute Hemorrhagic cerebrovascular accident (CVA) acute History of recent pneumonia acute Hypertriglyceridemia acute Right carotid artery occlusion acute Type 2 diabetes mellitus acu te CKD (chronic kidney disease) stage 3, GFR 30-59 ml/min chronic Bilateral carotid artery stenosis acute Hemorrhagic cerebrovascular accident (CVA) acute Right carotid artery occlusion acute Cardiomyopathy, ischemic acu te Essential hypertension acute Hemorrhagic cerebrovascular accident (CVA) acute History of recent pneumonia acute Hypertriglyceridemia acute Presence of stent in coronary artery August, acute Right carotid artery occlusion acute Type 2 diabetes mellitus acu te CKD (chronic kidney disease) stage 3, GFR 30-59 ml/min chronic 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 acute Cardiomyopathy, ischemic acu te Essential hypertension acute Presence of stent in coronary artery August, acute Pure hypercholesterolemia ac [place] Shortness of breath noneacti ve [facility] Work Phone: Evaluation note* Diagnosis Onset Date Resolution Status Bilateral carotid artery stenosis acute Hemorrhagic cerebrovascular accident (CVA) acute Right carotid artery occlusion acute Cardiomyopathy, ischemic acu te Essential hypertension acute Hemorrhagic cerebrovascular accident (CVA) acute History of recent pneumonia acute Hypertriglyceridemia acute Presence of stent in coronary artery August, acute Right carotid artery occlusion acute Type 2 diabetes mellitus acu te CKD (chronic kidney disease) stage 3, GFR 30-59 ml/min chronic 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 acute Cardiomyopathy, ischemic acu te Essential hypertension acute Presence of stent in coronary artery August, acute Pure hypercholesterolemia ac [place] Shortness of breath noneacti [facility] Work Phone: Evaluation note* Diagnosis Onset Date Resolution Status 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 acute Bilateral carotid artery stenosis acute Essential hypertension acute Hemorrhagic cerebrovascular accident (CVA) acute Hypertriglyceridemia acute Multiple lacunar infarcts ac [place] Presence of stent in coronary artery August, acute Pure hypercholesterolemia ac [place] Right carotid artery occlusion acute Type 2 diabetes mellitus acu te CKD (chronic kidney disease) stage 3, GFR 30-59 ml/min [facility] Work Phone: Evaluation note* Diagnosis Onset Date Resolution Status Multiple lacunar infarcts ac [place] Right carotid artery occlusion acute 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 acute Bilateral carotid artery stenosis acute Cardiomyopathy, ischemic acu te Hypertriglyceridemia acute Multiple lacunar infarcts ac [place] Pure hypercholesterolemia ac [place] CKD (chronic kidney disease) stage 3, GFR 30-59 ml/min chronic Essential hypertension chron ic Type 2 diabetes mellitus [facility] Carotid artery disease chron ic CKD (chronic kidney disease) stage 3, GFR 30-59 ml/min chronic Coronary artery disease study lead ana m Dyslipidemia chronic Essential hypertension chron ic 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 chronic Presence of stent in coronary artery August, chronic Type 2 diabetes mellitus [facility] Work Phone: Evaluation note* Diagnosis Onset Date Resolution Status Carotid artery disease chron ic CKD (chronic kidney disease) stage 3, GFR 30-59 ml/min chronic Coronary artery disease study lead ana m Dyslipidemia chronic Essential hypertension chron ic 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 chronic Presence of stent in coronary artery August, chronic Type 2 diabetes mellitus [facility] Work Phone: Evaluation note* Diagnosis Onset Date Resolution Status Acute sinusitis acute 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 acute Bilateral carotid artery stenosis acute Hemorrhagic cerebrovascular accident (CVA) acute Hypertriglyceridemia acute Multiple lacunar infarcts ac [place] Right carotid artery occlusion acute CKD (chronic kidney disease) stage 3, GFR 30-59 ml/min chronic Coronary artery disease study lead ana m Dyslipidemia chronic 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 chronic Presence of stent in coronary artery August, chronic Type 2 diabetes mellitus chr onic Anemia acute History of colon polyps acut e Carotid artery disease chron ic [facility] Work Phone: Evaluation note* Diagnosis Cerebral aneurysm- Primary Cerebral aneurysm, nonruptured Cerebrovascular accident (CVA) due to stenosis of left carotid artery (HCC) [facility] Diagnosis TIA (transient ischemic attack)- Primary Unspecified transient cerebral ischemia Cerebrovascular accident (CVA) due to stenosis of left carotid artery (HCC) [facility]* Diagnosis TIA (transient ischemic attack)- Primary Unspecified transient cerebral ischemia Cerebrovascular accident (CVA) due to stenosis of left carotid artery (HCC) documented [facility]* Diagnosis TIA (transient ischemic attack)- Primary Unspecified transient cerebral ischemia Cerebrovascular accident (CVA) due to stenosis of left carotid artery (HCC) [facility]* Diagnosis TIA (transient ischemic attack)- Primary Unspecified transient cerebral ischemia Cerebrovascular accident (CVA) due to stenosis of left carotid artery (HCC) documented [facility]* Diagnosis Cerebral infarction due to unspecified occlusion or stenosis of left carotid arteries (HCC)- Primary [facility] Additional Instructions Plenty of fluids and rest. You are a little dehydrated. Tylenol as needed for body aches. Follow-up with your doctor if not improving.[facility] Work Phone: Hospital Discharge instructionsAmbulatory Orders* Neurology Location: None Selected [facility] Work Phone: InstructionsNo information available.[facility] Work Phone: Instructions* Attachments The following attachments cannot be sent through Care Everywhere. * Brain Aneurysm ([place]) * Risk Factors for Stroke ([place]) * Angiography ([place]) documented in this [facility] for referral (narrative)No reason for referral information availableWWooster Community [facility] Work Phone: Chief Complaint Chief Complaint Description Start Date right shoulder pain Preliminary chief co mplaint data, not yet signed by the author as of Advance Directives Advance Directive Response Recorded Date/ Time Living Will No January 02, 2022 6:59am Power of Backing In Machine Tender No January 02 6:59am Advance Directive Response Recorded Date/ Time Living Will No January 08, 2022 8:34am Power of Backing In Machine Tender No January 08 8:34am Advance Directive Response Recorded Date/ Time Advance Directives on File Yes 2021 6:55am Name of Medical Power of Backing In Machine Tender Basim Guzmantanner-wi fe June 01, 2022 6:55am Advance Directives Yes May 6:55am Living Will Yes June 01, 2022 6:55am Power of Backing In Machine Tender Yes May 6:55am Advance Directive Response Recorded Date/ Time Advance Directives Yes May 5:55am Living Will Yes June 01, 2022 5:55am Power of Backing In Machine Tender Yes May 5:55am Advance Directive Response Recorded Date/ Time Advance Directives Yes May 6:55am Living Will Yes June 01, 2022 6:55am Power of Backing In Machine Tender Yes May 6:55am Advance Directive Response Recorded Date/ Time Name of Medical Power of Backing In Machine Tender BASIM DAVIES August 20, 2023 3:43am Advance Directives Yes May 5:55am Living Will Yes August 20 3:43am Power of Backing In Machine Tender Yes August 20, 2023 3:43am Advance Directive Response Recorded Date/ Time Name of Medical Power of Backing In Machine Tender BASIM GUZMANTANNER August 20, 2023 3:43am Name of Medical Power of Backing In Machine Tender August 24, 2023 7:32am Advance Directives Yes May 5:55am Living Will Yes August 24 7:32am Power of Backing In Machine Tender Yes August 24, 2023 7:32am Advance Directive Response Recorded Date/ Time Name of Medical Power of Backing In Machine Tender BASIM DAVIES August 20, 2023 4:43am Name of Medical Power of Backing In Machine Tender August 24, 2023 8:32am Name of Medical Power of Backing In Machine Tender November 29, 2023 2:36pm Advance Directives Yes May 6:55am Living Will Yes November 29, 2023 2:36pm Power of Backing In Machine Tender Yes November 28 2:36pm Advance Directive Response Recorded Date/ Time Living Will Yes February 27, 2024 2:04pm Power of Backing In Machine Tender Yes February 26 2:04pm Advance Directives Yes May 6:55am Advance Directive Response Recorded Date/ Time Advance Directives Yes May 6:55am Advance Directive Response Recorded Date/ Time Do you have a Healthcare Power of Backing In Machine Tender? Yes January 12, 2025 7:05pm Name of Medical Power of Backing In Machine Tender January 12, 2025 7:05pm Advance Directives Yes May 6:55am Advance Directive Response Recorded Date/ Time Do you have a Healthcare Power of Backing In Machine Tender? Yes January 12, 2025 7:05pm Name of Medical Power of Backing In Machine Tender January 12, 2025 7:05pm Do you have a Healthcare Power of Backing In Machine Tender? Yes March 29, 2025 6:22am Advance Directives Yes May 6:55am Advance Directive Response Recorded Date/ Time Do you have a Healthcare Power of Backing In Machine Tender? Yes January 12, 2025 7:05pm Name of Medical Power of Backing In Machine Tender January 12, 2025 7:05pm Do you have a Healthcare Power of Backing In Machine Tender? Yes March 29, 2025 6:22am Advance Directives Yes April 16 1:29pm Advance Directive Response Recorded Date/ Time Advance Directives Yes April 16 1:29pm Do you have a Healthcare Power of Backing In Machine Tender? Yes January 12, 2025 7:05pm Name of Medical Power of Backing In Machine Tender January 12, 2025 7:05pm Do you have a Healthcare Power of Backing In Machine Tender? Yes March 29, 2025 6:22am Family History Relationship Condition Age at Onset Recorded Date/T [place] mother Coronary artery disease Unknown Diabetes mellitus Unknown Myocardial infarction 48 father Diabetes mellitus Unknown Malignant neoplasm of breast Unknown brother Diabetes mellitus Unknown brother Malignant neoplasm Unknown Relationship Condition Age at Onset Recorded Date/T [place] mother Coronary artery disease Unknown Diabetes mellitus Unknown Myocardial infarction 48 father Diabetes mellitus Unknown Malignant neoplasm of breast Unknown brother Diabetes mellitus Unknown Malignant neoplasm Unknown brother Malignant neoplasm Unknown Chief Complaint and Reason for Visit Chief Complaint 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[employer]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 [employer] C[employer] Amb Documentation Amb Documentation HYPERGLYCEMIA, WEAKNESS Reason for Visit Bilateral carotid ar nithin stenosis Essential hypertension Hypertriglyceridemia Multiple lacunar infarcts Presence of stent in coronary artery Pure hypercholesterolemia Right carotid artery occlusion Type 2 diabetes mellitus CKD (chronic kidney disease) stage 3, GFR 30-59 ml/min Hyperglycemia Lactic acidosis Weakness 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 Amb Documentation Amb Documentation HYPERGLYCEMIA, WEAKNESS HYPERGLYCEMIA, WEAKNESS HYPERGLYCEMIA, WEAKNESS WEAKNESS Reason for Visit Bilateral carotid ar nithin stenosis Essential hypertension Hypertriglyceridemia Multiple lacunar infarcts Presence of stent in coronary artery Pure hypercholesterolemia Right carotid artery occlusion Type 2 diabetes mellitus CKD (chronic kidney disease) stage 3, GFR 30-59 ml/min Hyperglycemia Lactic acidosis Weakness Chief Complaint HYPERGLYCEMIA, WEAKN ESS HYPERGLYCEMIA, WEAKNESS HYPERGLYCEMIA, WEAKNESS WEAKNESS FU FROM URGENT CARE 2 W FU BILATERAL CAROTID STENOSIS Reason for Visit Hyperglycemia Lactic acidosis Weakness 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 pectoris Cardiomyopathy, ischemic Essential hypertension History of recent pneumonia Hypertriglyceridemia Presence of stent in coronary artery Type 2 diabetes mellitus CKD (chronic kidney disease) stage 3, GFR 30-59 ml/min Weakness 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 pectoris Bilateral carotid artery stenosis Essential hypertension Hemorrhagic cerebrovascular accident (CVA) History of recent pneumonia Hypertriglyceridemia Right carotid artery occlusion Type 2 diabetes mellitus CKD (chronic kidney disease) stage 3, GFR 30-59 ml/min Chief Complaint 2 W FU BILATERAL CAROTID STENOSIS CAROTID DUPLEX 02/09 SUGAR ISSUES Amb Documentation Shortness of breath HOUGH, CAD,PCI HOUGH, CAD,PCI Reason for Visit Atherosclerotic hear t disease of ione coronary artery without angina pectoris Bilateral carotid artery stenosis Essential hypertension Hemorrhagic cerebrovascular accident (CVA) History of recent pneumonia Hypertriglyceridemia Right carotid artery occlusion Type 2 diabetes mellitus CKD (chronic kidney disease) stage 3, GFR 30-59 ml/min Bilateral carotid artery stenosis Hemorrhagic cerebrovascular accident (CVA) Right carotid artery occlusion Cardiomyopathy, ischemic Essential hypertension Hemorrhagic cerebrovascular accident (CVA) History of recent pneumonia Hypertriglyceridemia Presence of stent in coronary artery Right carotid artery occlusion Type 2 diabetes mellitus CKD (chronic kidney disease) stage 3, GFR 30-59 ml/min 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 pectoris Cardiomyopathy, ischemic Essential hypertension Presence of stent in coronary artery Pure hypercholesterolemia Shortness of breath Chief Complaint BILATERAL CAROTID ST ENOSIS CAROTID DUPLEX 02/09 SUGAR ISSUES Amb Documentation Shortness of breath HOUGH, CAD,PCI HOUGH, CAD,PCI CATH TEACHING ABN STRESS, CAD, STENT IN CORONARY ARTERY, HOUGH, HL ABN STRESS, CAD, STENT IN CORONARY ARTERY, HOUGH, HL E ORDER Reason for Visit Bilateral carotid ar nithin stenosis Hemorrhagic cerebrovascular accident (CVA) Right carotid artery occlusion Cardiomyopathy, ischemic Essential hypertension Hemorrhagic cerebrovascular accident (CVA) History of recent pneumonia Hypertriglyceridemia Presence of stent in coronary artery Right carotid artery occlusion Type 2 diabetes mellitus CKD (chronic kidney disease) stage 3, GFR 30-59 ml/min 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 pectoris Cardiomyopathy, ischemic Essential hypertension Presence of stent in coronary artery Pure hypercholesterolemia Shortness of breath Chief Complaint 6 M FU Reason for Visit Atherosclerotic hear t disease of ione coronary artery without angina pectoris Bilateral carotid artery stenosis Essential hypertension Hemorrhagic cerebrovascular accident (CVA) Hypertriglyceridemia Multiple lacunar infarcts Presence of stent in coronary artery Pure hypercholesterolemia Right carotid artery occlusion Type 2 diabetes mellitus CKD (chronic kidney disease) stage 3, GFR 30-59 ml/min Chief Complaint CAROTID STENOSIS ROUTINE CAROTID 6 M FU INT LABS 6 m fu PREV PFM PT E ORDERS Reason for Visit Multiple lacunar inf arcts Right carotid artery occlusion 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 pectoris Bilateral carotid artery stenosis Cardiomyopathy, ischemic Hypertriglyceridemia Multiple lacunar infarcts Pure hypercholesterolemia CKD (chronic kidney disease) stage 3, GFR 30-59 ml/min Essential hypertension Type 2 diabetes mellitus Carotid artery disease CKD (chronic kidney disease) stage 3, GFR 30-59 ml/min Coronary artery disease Dyslipidemia Essential hypertension History of hemorrhagic cerebrovascular accident (CVA) without residual deficits Presence of stent in coronary artery Type 2 diabetes mellitus Chief Complaint 6 m fu PREV PFM PT E ORDERS COUGH, SORE THROAT, FEVER, BODY ACHE weakness Reason for Visit Carotid artery disea se CKD (chronic kidney disease) stage 3, GFR 30-59 ml/min Coronary artery disease Dyslipidemia Essential hypertension History of hemorrhagic cerebrovascular accident (CVA) without residual deficits Presence of stent in coronary artery Type 2 diabetes mellitus Chief Complaint 6 m fu PREV PFM PT E ORDERS COUGH, SORE THROAT, FEVER, BODY ACHE weakness sob Reason for Visit Carotid artery disea se CKD (chronic kidney disease) stage 3, GFR 30-59 ml/min Coronary artery disease Dyslipidemia Essential hypertension History of hemorrhagic cerebrovascular accident (CVA) without residual deficits Presence of stent in coronary artery Type 2 diabetes mellitus Chief Complaint COUGH, SORE THROAT, FEVER, BODY ACHE weakness sob COUGH/CONGESTION/FATIGUE 6 M FU INT LABS E ORDER EGD/C-SCOPE DX ANEMIA Reason for Visit Acute sinusitis 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 pectoris Bilateral carotid artery stenosis Hemorrhagic cerebrovascular accident (CVA) Hypertriglyceridemia Multiple lacunar infarcts Right carotid artery occlusion CKD (chronic kidney disease) stage 3, GFR 30-59 ml/min Coronary artery disease Dyslipidemia History of hemorrhagic cerebrovascular accident (CVA) without residual deficits Presence of stent in coronary artery Type 2 diabetes mellitus Anemia History of colon polyps Carotid artery disease Chief Complaint Admit Date 4M FU August 10, 2024 1:15pm INT LABS August 11, 2024 5:59am LUMBAR SPINE August 20, 2024 8 :14am Room 1 August 20, 2024 8 :34am LUMBAR RADICUPATHY August 31, 2024 8:01am LUMBAR SPINE September 29, 2024 3 :24pm LUMBAR RADICULOPATHY. RX HERE October 132024 8:00am 6 M FU November 09, 2024 1:18pm INT LABS November 18, 2024 5:49 am Reason for Visit Admit Date History of laminectomy August 20 8:14am Lumbar radiculopathy August 20, 2024 8:14am History of laminectomy September 29 3:24pm Lumbar radiculopathy September 29, 2024 3:24pm 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 November 09, 2024 1:18pm Bilateral carotid artery stenosis Februa 2024 1:18pm Dyslipidemia November 09, 2024 1:18pm Essential hypertension November 09 1:18pm Type 2 diabetes mellitus November 09, 2024 1:18pm Chief Complaint Admit Date LUMBAR SPINE September 29, 2024 3 :24pm LUMBAR RADICULOPATHY. RX HERE October 132024 8:00am 6 M FU November 09, 2024 1:18pm INT LABS November 18, 2024 5:49 am INT LABS December 30, 2024 5:4 8am URINARY RETENTION December 31, 2024 10: 12am Reason for Visit Admit Date History of laminectomy September 29 3:24pm Lumbar radiculopathy September 29, 2024 3:24pm 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 November 09, 2024 1:18pm Bilateral carotid artery stenosis Februa 2024 1:18pm Dyslipidemia November 09, 2024 1:18pm Essential hypertension November 09 1:18pm Type 2 diabetes mellitus November 09, 2024 1:18pm Chief Complaint Admit Date LUMBAR SPINE September 29, 2024 3 :24pm LUMBAR RADICULOPATHY. RX HERE October 132024 8:00am 6 M FU November 09, 2024 1:18pm INT LABS November 18, 2024 5:49 am INT LABS December 30, 2024 5:4 8am URINARY RETENTION December 31, 2024 10: 12am TIA (cardiology) January 12, 2025 5:2 0pm TIA January 13, 2025 3:0 2pm TIA (cardiology) January 13, 2025 3:4 8pm TIA (cardiology) January 14, 2025 12:08p m Referral Order January 18, 2025 1:36pm COGNITIVE SPEECH DEFICIT, APHASIA. RX TO BE FAXED January 18, 2025 2:00pm 6 M FU January 27, 2025 2:45p m Reason for Visit Admit Date History of laminectomy September 29 3:24pm Lumbar radiculopathy September 29, 2024 3:24pm 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 November 09, 2024 1:18pm Bilateral carotid artery stenosis ua 2024 1:18pm Dyslipidemia November 09, 2024 1:18pm Essential hypertension November 09 1:18pm Type 2 diabetes mellitus November 09, 2024 1:18pm TIA (transient ischemic attack) January 132024 3:02pm Chief Complaint Admit Date LUMBAR RADICULOPATHY. RX HERE October 132024 8:00am 6 M FU November 09, 2024 1:18pm INT LABS November 18, 2024 5:49 am INT LABS December 30, 2024 5:4 8am URINARY RETENTION December 31, 2024 10: 12am TIA (cardiology) January 12, 2025 5:2 0pm TIA January 13, 2025 3:0 2pm TIA (cardiology) January 13, 2025 3:4 8pm TIA (cardiology) January 14, 2025 12:08p m Referral Order January 18, 2025 1:36pm COGNITIVE SPEECH DEFICIT, APHASIA. RX TO BE FAXED January 18, 2025 2:00pm 6 M FU January 27, 2025 2:45p m Reason for Visit Admit Date 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 November 09, 2024 1:18pm Bilateral carotid artery stenosis Februa 2024 1:18pm Dyslipidemia November 09, 2024 1:18pm Essential hypertension November 09 1:18pm Type 2 diabetes mellitus November 09, 2024 1:18pm TIA (transient ischemic attack) January 132024 3:02pm 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 January 27, 2025 2:45pm Bilateral carotid artery stenosis January 272024 2:45pm Hemorrhagic cerebrovascular accident (CV A) January 27, 2025 2:45pm Multiple lacunar infarcts January 27, 2025 2:45pm Right carotid artery occlusion January 27, 2025 2:45pm CKD (chronic kidney disease) stage 3, GF R 30-59 ml/min January 27, 2025 2:45pm Essential hypertension January 27, 2025 2: 45pm Type 2 diabetes mellitus January 27, 2025 2:45pm Chief Complaint Admit Date LUMBAR RADICULOPATHY. RX HERE October 132024 8:00am 6 M FU November 09, 2024 1:18pm INT LABS November 18, 2024 5:49 am INT LABS December 30, 2024 5:4 8am URINARY RETENTION December 31, 2024 10: 12am TIA (cardiology) January 12, 2025 5:2 0pm TIA January 13, 2025 3:0 2pm TIA (cardiology) January 13, 2025 3:4 8pm TIA (cardiology) January 14, 2025 12:08p m Referral Order January 18, 2025 1:36pm COGNITIVE SPEECH DEFICIT, APHASIA. RX TO BE FAXED January 18, 2025 2:00pm 6 M FU January 27, 2025 2:45p m Hospital FU February 01, 2025 1:31p m Chief Complaint Admit Date 6 M FU November 09, 2024 1:18pm INT LABS November 18, 2024 5:49 am INT LABS December 30, 2024 5:4 8am URINARY RETENTION December 31, 2024 10: 12am TIA (cardiology) January 12, 2025 5:2 0pm TIA January 13, 2025 3:0 2pm TIA (cardiology) January 13, 2025 3:4 8pm TIA (cardiology) January 14, 2025 12:08p m Referral Order January 18, 2025 1:36pm COGNITIVE SPEECH DEFICIT, APHASIA. RX TO BE FAXED January 18, 2025 2:00pm 6 M FU January 27, 2025 2:45p m Hospital FU February 01, 2025 1:31p m CHILLS/BA/FATIGUE/FITZPATRICK February 06, 2025 11:2 9am TIA (neurology) February 11, 2025 1:21p m Reason for Visit Admit Date 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 November 09, 2024 1:18pm Bilateral carotid artery stenosis Februa 2024 1:18pm Dyslipidemia November 09, 2024 1:18pm Essential hypertension November 09 1:18pm Type 2 diabetes mellitus November 09, 2024 1:18pm TIA (transient ischemic attack) January 132024 3:02pm 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 January 27, 2025 2:45pm Bilateral carotid artery stenosis January 272024 2:45pm Hemorrhagic cerebrovascular accident (CV A) January 27, 2025 2:45pm Multiple lacunar infarcts January 27, 2025 2:45pm Right carotid artery occlusion January 27, 2025 2:45pm CKD (chronic kidney disease) stage 3, GF R 30-59 ml/min January 27, 2025 2:45pm Essential hypertension January 27, 2025 2: 45pm Type 2 diabetes mellitus January 27, 2025 2:45pm Carotid stenosis, left February 01, 2025 1: 31pm Viral infection February 06, 2025 11:29 am Multiple lacunar infarcts February 11, 2025 1:21pm Transient ischemia February 11, 2025 1:21p m Reason for Visit Admit Date 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 November 09, 2024 1:18pm Bilateral carotid artery stenosis Februa 2024 1:18pm Dyslipidemia November 09, 2024 1:18pm Essential hypertension November 09 1:18pm Type 2 diabetes mellitus November 09, 2024 1:18pm TIA (transient ischemic attack) January 132024 3:02pm 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 January 27, 2025 2:45pm Bilateral carotid artery stenosis January 272024 2:45pm Hemorrhagic cerebrovascular accident (CV A) January 27, 2025 2:45pm Multiple lacunar infarcts January 27, 2025 2:45pm Right carotid artery occlusion January 27, 2025 2:45pm CKD (chronic kidney disease) stage 3, GF R 30-59 ml/min January 27, 2025 2:45pm Essential hypertension January 27, 2025 2: 45pm Type 2 diabetes mellitus January 27, 2025 2:45pm Carotid stenosis, left February 01, 2025 1: 31pm Chief Complaint Admit Date INT LABS December 30, 2024 5:4 8am URINARY RETENTION December 31, 2024 10: 12am TIA (cardiology) January 12, 2025 5:2 0pm TIA January 13, 2025 3:0 2pm TIA (cardiology) January 13, 2025 3:4 8pm TIA (cardiology) January 14, 2025 12:08p m Referral Order January 18, 2025 1:36pm COGNITIVE SPEECH DEFICIT, APHASIA. RX TO BE FAXED January 18, 2025 2:00pm 6 M FU January 27, 2025 2:45p m Hospital FU February 01, 2025 1:31p m CHILLS/BA/FATIGUE/FITZPATRICK February 06, 2025 11:2 9am TIA (neurology) February 11, 2025 1:21p m TIA, R/O AFIB February 19, 2025 6:34a m Reason for Visit Admit Date TIA (transient ischemic attack) January 132024 3:02pm 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 January 27, 2025 2:45pm Bilateral carotid artery stenosis January 272024 2:45pm Hemorrhagic cerebrovascular accident (CV A) January 27, 2025 2:45pm Multiple lacunar infarcts January 27, 2025 2:45pm Right carotid artery occlusion January 27, 2025 2:45pm CKD (chronic kidney disease) stage 3, GF R 30-59 ml/min January 27, 2025 2:45pm Essential hypertension January 27, 2025 2: 45pm Type 2 diabetes mellitus January 27, 2025 2:45pm Carotid stenosis, left February 01, 2025 1: 31pm Viral infection February 06, 2025 11:29 am Aneurysm of intracranial artery January 1:21pm Bilateral carotid artery stenosis February 112024 1:21pm Intracranial vascular stenosis February 11, 2025 1:21pm Transient ischemia February 11, 2025 1:21p m Chief Complaint Admit Date INT LABS December 30, 2024 5:4 8am URINARY RETENTION December 31, 2024 10: 12am TIA (cardiology) January 12, 2025 5:2 0pm TIA January 13, 2025 3:0 2pm TIA (cardiology) January 13, 2025 3:4 8pm TIA (cardiology) January 14, 2025 12:08p m Referral Order January 18, 2025 1:36pm COGNITIVE SPEECH DEFICIT, APHASIA. RX TO BE FAXED January 18, 2025 2:00pm 6 M FU January 27, 2025 2:45p m Hospital FU February 01, 2025 1:31p m CHILLS/BA/FATIGUE/FITZPATRICK February 06, 2025 11:2 9am TIA (neurology) February 11, 2025 1:21p m TIA, R/O AFIB February 19, 2025 6:34a m chest pain, SOB March 29, 2025 6:19 am Chief Complaint Admit Date INT LABS December 30, 2024 5:4 8am URINARY RETENTION December 31, 2024 10: 12am TIA (cardiology) January 12, 2025 5:2 0pm TIA January 13, 2025 3:0 2pm TIA (cardiology) January 13, 2025 3:4 8pm TIA (cardiology) January 14, 2025 12:08p m Referral Order January 18, 2025 1:36pm COGNITIVE SPEECH DEFICIT, APHASIA. RX TO BE FAXED January 18, 2025 2:00pm 6 M FU January 27, 2025 2:45p m Hospital FU February 01, 2025 1:31p m CHILLS/BA/FATIGUE/FITZPATRICK February 06, 2025 11:2 9am TIA (neurology) February 11, 2025 1:21p m TIA, R/O AFIB February 19, 2025 6:34a m 30 DAY MONIOR February 19, 2025 8:00a m chest pain, SOB March 29, 2025 6:19 am TEST RESULTS April 12, 2025 12:5 0pm Reason for Visit Admit Date TIA (transient ischemic attack) January 132024 3:02pm 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 January 27, 2025 2:45pm Bilateral carotid artery stenosis January 272024 2:45pm Hemorrhagic cerebrovascular accident (CV A) January 27, 2025 2:45pm Multiple lacunar infarcts January 27, 2025 2:45pm Right carotid artery occlusion January 27, 2025 2:45pm CKD (chronic kidney disease) stage 3, GF R 30-59 ml/min January 27, 2025 2:45pm Essential hypertension January 27, 2025 2: 45pm Type 2 diabetes mellitus January 27, 2025 2:45pm Carotid stenosis, left February 01, 2025 1: 31pm Viral infection February 06, 2025 11:29 am Aneurysm of intracranial artery January 1:21pm Bilateral carotid artery stenosis February 112024 1:21pm Intracranial vascular stenosis February 11, 2025 1:21pm Transient ischemia February 11, 2025 1:21p m Aneurysm of intracranial artery March 12:50pm Bilateral carotid artery stenosis March 172024 12:50pm Intracranial vascular stenosis March 12:50pm Transient ischemia April 12, 2025 12:5 0pm Chief Complaint Admit Date INT LABS December 30, 2024 5:4 8am URINARY RETENTION December 31, 2024 10: 12am TIA (cardiology) January 12, 2025 5:2 0pm TIA January 13, 2025 3:0 2pm TIA (cardiology) January 13, 2025 3:4 8pm TIA (cardiology) January 14, 2025 12:08p m Referral Order January 18, 2025 1:36pm COGNITIVE SPEECH DEFICIT, APHASIA. RX TO BE FAXED January 18, 2025 2:00pm 6 M FU January 27, 2025 2:45p m Hospital FU February 01, 2025 1:31p m CHILLS/BA/FATIGUE/FITZPATRICK February 06, 2025 11:2 9am TIA (neurology) February 11, 2025 1:21p m TIA, R/O AFIB February 19, 2025 6:34a m 30 DAY MONIOR February 19, 2025 8:00a m chest pain, SOB March 29, 2025 6:19 am TEST RESULTS April 12, 2025 12:5 0pm WC 7/14 CP April 28, 2025 2: 06pm Chief Complaint Admit Date TIA (cardiology) January 12, 2025 5:2 0pm TIA January 13, 2025 3:0 2pm TIA (cardiology) January 13, 2025 3:4 8pm TIA (cardiology) January 14, 2025 12:08p m Referral Order January 18, 2025 1:36pm COGNITIVE SPEECH DEFICIT, APHASIA. 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 January 27, 2025 2:45pm Bilateral carotid artery stenosis January 272024 2:45pm Hemorrhagic cerebrovascular accident (CV A) January 27, 2025 2:45pm Multiple lacunar infarcts January 27, 2025 2:45pm Right carotid artery occlusion January 27, 2025 2:45pm CKD (chronic kidney disease) stage 3, GF R 30-59 ml/min January 27, 2025 2:45pm Essential hypertension January 27, 2025 2: 45pm Type 2 diabetes mellitus January 27, 2025 2:45pm Carotid stenosis, left February 01, 2025 1: 31pm Viral infection February 06, 2025 11:29 am Aneurysm of intracranial artery January 1:21pm Bilateral carotid artery stenosis February 112024 1:21pm Intracranial vascular stenosis February 11, 2025 1:21pm Transient ischemia February 11, 2025 1:21p m Aneurysm of intracranial artery March 12:50pm Bilateral carotid artery stenosis March 172024 12:50pm Intracranial vascular stenosis March 12:50pm Transient ischemia April 12, 2025 12:5 0pm Aneurysm of intracranial artery April 162024 2:06pm 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 RX TO BE FAXED January 18, 2025 2:00pm 6 M FU January 27, 2025 2:45p m Hospital FU February 01, 2025 1:31p m CHILLS/BA/FATIGUE/FITZPATRICK February 06, 2025 11:2 9am TIA (neurology) February 11, 2025 1:21p m TIA, R/O AFIB February 19, 2025 6:34a m DAY MONIOR February 19, 2025 8:00a m chest pain, SOB March 29, 2025 6:19 am TEST RESULTS April 12, 2025 12:5 0pm [facility] 03/29 CP April 28, 2025 2: 06pm Diarrhea May 03, 2025 1: 37pm E-ORDER May 06, 2025 1: 42pm Dr. 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 January 27, 2025 2:45pm Bilateral carotid artery stenosis January 272024 2:45pm Hemorrhagic cerebrovascular accident (CV A) January 27, 2025 2:45pm Multiple lacunar infarcts January 27, 2025 2:45pm Right carotid artery occlusion January 27, 2025 2:45pm CKD (chronic kidney disease) stage 3, GF R 30-59 ml/min January 27, 2025 2:45pm Essential hypertension January 27, 2025 2: 45pm Type 2 diabetes mellitus January 27, 2025 2:45pm Carotid stenosis, left February 01, 2025 1: 31pm Viral infection February 06, 2025 11:29 am Aneurysm of intracranial artery January 1:21pm Bilateral carotid artery stenosis February 112024 1:21pm Intracranial vascular stenosis February 11, 2025 1:21pm Transient ischemia February 11, 2025 1:21p m Aneurysm of intracranial artery March 12:50pm Bilateral carotid artery stenosis March 172024 12:50pm Intracranial vascular stenosis March 12:50pm Transient ischemia April 12, 2025 12:5 0pm Aneurysm of intracranial artery April 162024 2:06pm 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 April 28, 2025 2:06pm Bilateral carotid artery stenosis April 28, 2025 2:06pm 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 May 03, 2025 1:37pm Essential hypertension May 03, 2025 1:37pm Type 2 diabetes mellitus May 03 1:37pm Diarrhea May 03, 2025 1: 37pm Summary Purpose Additional Source Comments Reason for Visit (unrecogniz ed section and content) Reason Comments PT Discharge Specialty Diagnoses / Procedures Referred By Contac t Referred To Contact Physical Therapy / PHYSICAL THERAPY Diagnoses right shoulder pain Procedures NEW RS PT ORTH Eloy Fragoso [address] [place] [address] Kajal Logan, PT [address] [place] [address] Referral ID Status Reason Start Date Expiration Date V isits Requested Visits Authorized [id number] Authorized 09/16/2021 09/15/2022 99 99 Reason Comments Physical Therapy Reason Comments PT Progress Note Reason For Visit Description Start Date New - 1st visit with practice Preliminary reason f or visit data, not yet signed by the author as of right shoulder pain Reason Comments PT Eval Reason Comments New Patient aneurysm Reason Onset Date Comments Lab Orders 03/05/2025 Reason Onset Date Comments Referral 02/17/2025 Source Comments (unrecognize d section and content) In the event this informatio n is protected by the Federal Confidentiality of Alcohol and Drug Abuse Patient Records regulations: The Federal rules restrict any use of the information to criminally investigate or prosecute any alcohol or drug abuse patient.[facility] the event this information is protected by the Federal Confidentiality of Alcohol and Drug Abuse Patient Records regulations: The Federal rules restrict any use of the information to criminally investigate or prosecute any alcohol or drug abuse patient.[facility] the event this information is protected by the Federal Confidentiality of Alcohol and Drug Abuse Patient Records regulations: The Federal rules restrict any use of the information to criminally investigate or prosecute any alcohol or drug abuse patient.[facility] the event this information is protected by the Federal Confidentiality of Alcohol and Drug Abuse Patient Records regulations: The Federal rules restrict any use of the information to criminally investigate or prosecute any alcohol or drug abuse patient.[facility] the event this information is protected by the Federal Confidentiality of Alcohol and Drug Abuse Patient Records regulations: The Federal rules restrict any use of the information to criminally investigate or prosecute any alcohol or drug abuse patient.[facility] Goals (unrecognized section and content) Goals may be documented in a n alternate sectionGoals may be documented in an alternate sectionGoals may be documented in an alternate sectionGoals may be documented in an alternate sectionGoals may be documented in an alternate sectionGoals may be documented in an alternate sectionGoals may be documented in an alternate sectionGoals may be documented in an alternate sectionGoals may be documented in an alternate sectionGoals may be documented in an alternate sectionGoals may be documented in an alternate sectionGoals may be documented in an alternate section (unrecognized sect ion and content) No Status Records FoundNo Status Records FoundNo Status Records Found INFORMATION SOURCE (unrecogn ized section and content) DATE CREATED AUTHOR 02/10/2022 [facility] DATE CREATED AUTHOR AUTHOR'S ORGANIZ ATION 04/05/2025 [facility] DATE CREATED AUTHOR AUTHOR'S ORGANIZ ATION 05/30/2025 [facility] Care Teams (unrecognized sec tion and content) Team Status: Active Member Role Status Dates Dr. Briseyda Sinclair MD Primary Care Provider Active Team Status: Inactive Member Role Status Dates Dr. Briseyda Sinclair MD Primary Care Provider, Attendi ng Provider Active Team Status: Inactive Member Role Status Dates Dr. Briseyda Sinclair MD Primary Care Pro vider, Attending Provider, Referring Provider Active Team Status: Inactive Member Role Status Dates Dr. Briseyda Sinclair MD Primary Care Provider, Referri ng Provider Active Dr. Manuel Gilman MD Attending Provider Active Team Status: Active Member Role Status Dates Dr. Briseyda Sinclair MD Primary Care Provider Active Dr. Manuel Gilman MD Attending Provider, Referring Provider Active Team Status: Inactive Member Role Status Dates Dr. Briseyda Sinclair MD Primary Care Provider, Referri ng Provider Active Dr. Mc Saleh MD Attending Provider Active Team Status: Inactive Member Role Status Dates Dr. Briseyda Sinclair MD Primary Care Provider Active Dr. Manuel Gilman MD Attending Provider, Referring Provider Active Team Status: Inactive Member Role Status Dates Dr. Briseyda Sinclair MD Primary Care Provider Active Dr. Mc Saleh MD Attending Provider, Referring Pr ovider Active Team Status: Inactive Member Role Status Dates Dr. Briseyda Sinclair MD Primary Care Provider, Referri ng Provider Active Omkar Wild PA, PA Attending Provider Active Team Status: Inactive Member Role Status Dates Dr. Briseyda Sinclair MD Primary Care Provider Active Dr. Diogenes Villalpando DO Emergency Provider Active Team Status: Inactive Member Role Status Dates Dr. Briseyda Sinclair MD Primary Care Provider Active Dr. Sadi Mccoy MD Referring Provider, Emergency Pro vider Active Team Status: Inactive Member Role Status Dates Dr. Briseyda Sinclair MD Primary Care Provider, Referri ng Provider Active Selwyn BACON PA Attending Provider Active Team Status: Inactive Member Role Status Dates Dr. Briseyda Sinclair MD Primary Care Provider Active Dr. Diogenes Villalpando DO Attending Provider, Emergency Provide r Active Team Status: Inactive Member Role Status Dates Dr. Briseyda Sinclair MD Primary Care Provider Active Dr. Sadi Mccoy MD Attending Provider, Referring Provider, Emergency Provider Active Team Status: Active Member Role Status Dates Dr. Briseyda Sinclair MD Primary Care Provider, Referri ng Provider Active Dr. Manuel Gilman MD Attending Provider, Other Prov ider Active Team Status: Inactive Member Role Status Dates Dr. Briseyda Sinclair MD Primary Care Provider Active Start: August 10, 2024 End: August 10, 2024 Dr. Briseyda Sinclair MD Attending Provider Active Start: August 10, 2024 End: August 10, 2024 Team Status: Inactive Member Role Status Dates Dr. Briseyda Sinclair MD Primary Care Provider Active Start: August 11, 2024 End: August 11, 2024 Dr. Briseyda Sinclair MD Attending Provider Active Start: August 11, 2024 End: August 11, 2024 Dr. Briseyda Sinclair MD Referring Provider Active Start: August 11, 2024 End: August 11, 2024 Team Status: Inactive Member Role Status Dates Dr. Briseyda Sinclair MD Primary Care Provider Active Start: August 20, 2024 End: August 20, 2024 Dr. Briseyda Sinclair MD Referring Provider Active Start: August 20, 2024 End: August 20, 2024 Dr. Vito Dejesus MD Attending Provider Active Start: August 20, 2024 End: August 20, 2024 Team Status: Inactive Member Role Status Dates Dr. Briseyda Sinclair MD Primary Care Provider Active Start: August 20, 2024 End: August 20, 2024 Dr. Jeffrey Lord MD Attending Provider Active S tart: August 20, 2024 End: August 20, 2024 Team Status: Inactive Member Role Status Dates Dr. Briseyda Sinclair MD Primary Care Provider Active Start: August 31, 2024 End: August 31, 2024 Dr. Briseyda Sinclair MD Attending Provider Active Start: August 31, 2024 End: August 31, 2024 Dr. Briseyda Sinclair MD Referring Provider Active Start: August 31, 2024 End: August 31, 2024 Team Status: Inactive Member Role Status Dates Dr. Briseyda Sinclair MD Primary Care Provider Active Start: September 29, 2024 End: September 29, 2024 Dr. Briseyda Sinclair MD Referring Provider Active Start: September 29, 2024 End: September 29, 2024 Dr. Vito Dejesus MD Attending Provider Active Start: September 29, 2024 End: September 29, 2024 Team Status: Inactive Member Role Status Dates Dr. Briseyda Sinclair MD Primary Care Provider Active Start: October 13, 2024 End: October 13, 2024 Dr. Vito Dejesus MD Attending Provider Active Start: October 13, 2024 End: October 13, 2024 Dr. Vito Dejesus MD Referring Provider Active Start: October 13, 2024 End: October 13, 2024 Team Status: Inactive Member Role Status Dates Dr. Briseyda Sinclair MD Primary Care Provider Active Start: November 09, 2024 End: November 09, 2024 Dr. Briseyda Sinclair MD Referring Provider Active Start: November 09, 2024 End: November 09, 2024 Dr. Cuate Garrison MD Attending Provider Active Start: November 09, 2024 End: November 09, 2024 Team Status: Inactive Member Role Status Dates Dr. Briseyda Sinclair MD Primary Care Provider Active Start: November 18, 2024 End: November 18, 2024 Dr. Briseyda Sinclair MD Attending Provider Active Start: November 18, 2024 End: November 18, 2024 Dr. Briseyda Sinclair MD Referring Provider Active Start: November 18, 2024 End: November 18, 2024 Team Status: Inactive Member Role Status Dates Dr. Briseyda Sinclair MD Primary Care Provider Active Start: December 30, 2024 End: December 30, 2024 Dr. Briseyda Sinclair MD Attending Provider Active Start: December 30, 2024 End: December 30, 2024 Dr. Briseyda Sinclair MD Referring Provider Active Start: December 30, 2024 End: December 30, 2024 Team Status: Active Member Role Status Dates Dr. Briseyda Sinclair MD Primary Care Provider Active Start: December 31, 2024 Dr. Briseyda Sinclair MD Attending Provider Active Start: December 31, 2024 Dr. Briseyda Sinclair MD Referring Provider Active Start: December 31, 2024 Team Status: Inactive Member Role Status Dates Dr. Briseyda Sinclair MD Primary Care Provider Active Start: December 31, 2024 End: December 31, 2024 Dr. Briseyda Sinclair MD Attending Provider Active Start: December 31, 2024 End: December 31, 2024 Dr. Briseyda Sinclair MD Referring Provider Active Start: December 31, 2024 End: December 31, 2024 Team Status: Active Member Role Status Dates Dr. Briseyda Sinclair MD Primary Care Provider Active Start: January 12, 2025 Dr. Diogenes Villalpando DO Emergency Provider Active Start : January 12, 2025 Dr. Bhupinder Kenney MD Admit Provider Active Start: January 12, 2025 Dr. Bhupinder Kenney MD Attending Provider Active Start: January 12, 2025 Dr. Bhupinder Kenney MD Other Provider Active Start: January 12, 2025 Team Status: Active Member Role Status Dates Dr. Briseyda Sinclair MD Primary Care Provider Active Start: January 13, 2025 Dr. Jeffrey Lord MD Attending Provider Active S tart: January 13, 2025 Team Status: Active Member Role Status Dates Dr. Briseyda Sinclair MD Primary Care Provider Active Start: January 13, 2025 Dr. Briseyda Sinclair MD Referring Provider Active Start: January 13, 2025 Dr. Mookie Werner MD Attending Provider Active S tart: January 13, 2025 Team Status: Inactive Member Role Status Dates Dr. Brisyeda Sinclair MD Primary Care Provider Active Start: January 13, 2025 End: January 14, 2025 Dr. Diogenes Villalpando DO Emergency Provider Active Start : January 13, 2025 End: January 14, 2025 Dr. Bhupinder Kenney MD Admit Provider Active Start: January 13, 2025 End: January 14, 2025 Dr. Bhupinder Kenney MD Other Provider Active Start: January 13, 2025 End: January 14, 2025 Dr. Renae Rubalcava MD Attending Provider Active Start: January 13, 2025 End: January 14, 2025 Team Status: Active Member Role Status Dates Dr. Briseyda Sinclair MD Primary Care Provider Active Start: January 13, 2025 Dr. Diogenes Villalpando DO Emergency Provider Active Start : January 13, 2025 Dr. Bhupinder Kenney MD Admit Provider Active Start: January 13, 2025 Dr. Bhupinder Kenney MD Other Provider Active Start: January 13, 2025 Dr. Renae Rubalcava MD Attending Provider Active Start: January 13, 2025 Dr. Renae Rubalcava MD Other Provider Active St art: January 13, 2025 Team Status: Active Member Role Status Dates Dr. Briseyda Sinclair MD Primary Care Provider Active Start: January 14, 2025 Dr. Diogenes Villalpando DO Emergency Provider Active Start : January 14, 2025 Dr. Bhupinder Kenney MD Admit Provider Active Start: January 14, 2025 Dr. Bhupinder Kenney MD Other Provider Active Start: January 14, 2025 Dr. Renae Rubalcava MD Attending Provider Active Start: January 14, 2025 Dr. Renae Rubalcava MD Other Provider Active St art: January 14, 2025 Team Status: Active Member Role Status Dates Dr. Briseyda Sinclair MD Primary Care Provider Active Start: January 18, 2025 Dr. Briseyda Sinclair MD Attending Provider Active Start: January 18, 2025 Team Status: Active Member Role Status Dates Dr. Briseyda Sinclair MD Primary Care Provider Active Start: January 18, 2025 Dr. Renae Rubalcava MD Attending Provider Active Start: January 18, 2025 Dr. Renae Rubalcava MD Referring Provider Active Start: January 18, 2025 Team Status: Active Member Role Status Dates Dr. Briseyda Sinclair MD Primary Care Provider Active Start: January 25, 2025 Dr. Dony Daily MD Attending Provider Active Start: January 25, 2025 Dr. Dony Daily MD Referring Provider Active Start: January 25, 2025 Team Status: Inactive Member Role Status Dates Dr. Briseyda Sinclair MD Primary Care Provider Active Start: January 27, 2025 End: January 27, 2025 Dr. Briseyda Sinclair MD Attending Provider Active Start: January 27, 2025 End: January 27, 2025 Team Status: Inactive Member Role Status Dates Dr. Briseyda Sinclair MD Primary Care Provider Active Start: January 25, 2025 End: January 25, 2025 Dr. Dony Daily MD Attending Provider Active Start: January 25, 2025 End: January 25, 2025 Dr. Dony Daily MD Referring Provider Active Start: January 25, 2025 End: January 25, 2025 Team Status: Inactive Member Role Status Dates Dr. Mookie Werner MD Attending Provider Active S tart: February 01, 2025 End: February 01, 2025 Dr. Briseyda Sinclair MD Primary Care Provider Active Start: February 01, 2025 End: February 01, 2025 Dr. Briseyda Sinclair MD Referring Provider Active Start: February 01, 2025 End: February 01, 2025 Team Status: Inactive Member Role Status Dates Dr. Briseyda Sinclair MD Primary Care Provider Active Start: February 06, 2025 End: February 06, 2025 Dr. Briseyda Sinclair MD Referring Provider Active Start: February 06, 2025 End: February 06, 2025 SILVIA Max Attending Provider Active Start: February 06, 2025 End: February 06, 2025 Team Status: Inactive Member Role Status Dates Dr. Briseyda Sinclair MD Primary Care Provider Active Start: February 11, 2025 End: February 11, 2025 Dr. Briseyda Sinclair MD Referring Provider Active Start: February 11, 2025 End: February 11, 2025 SILVIA Barrientos Attending Provider Active S tart: February 11, 2025 End: February 11, 2025 [employer] Relationship Specialty Start Date End Date Briseyda Sinclair [address] [place] [id number] PCP - General Internal Medicine 03/04/25 [employer] Relationship Specialty Start Date End Date Brsieyda Sinclair [address] [place] [phone] PCP - General Internal Medicine 03/04/25 Team Status: Active Member Role/Relationship Status Dates Dr. Briseyda Sinclair MD Primary Care Provider Active Team Status: Inactive Member Role/Relationship Status Dates Dr. Briseyda Sinclair MD Primary Care Provider Active Start: December 30, 2024 End: December 30, 2024 Dr. Briseyda Sinclair MD Attending Provider Active Start: December 30, 2024 End: December 30, 2024 Dr. Briseyda Sinclair MD Referring Provider Active Start: December 30, 2024 End: December 30, 2024 Team Status: Inactive Member Role/Relationship Status Dates Dr. Briseyda Sinclair MD Primary Care Provider Active Start: December 31, 2024 End: December 31, 2024 Dr. Briseyda Sinclair MD Attending Provider Active Start: December 31, 2024 End: December 31, 2024 Dr. Briseyda Sinclair MD Referring Provider Active Start: December 31, 2024 End: December 31, 2024 Team Status: Active Member Role/Relationship Status Dates Dr. Briseyda Sinclair MD Primary Care Provider Active Start: January 12, 2025 Dr. Diogenes Villalpando DO Emergency Provider Active Start : January 12, 2025 Dr. Bhupinder Kenney MD Admit Provider Active Start: January 12, 2025 Dr. Bhupinder Kenney MD Attending Provider Active Start: January 12, 2025 Dr. Bhupinder Kenney MD Other Provider Active Start: January 12, 2025 Team Status: Active Member Role/Relationship Status Dates Dr. Briseyda Sinclair MD Primary Care Provider Active Start: January 13, 2025 Dr. Jeffrey Lord MD Attending Provider Active S tart: January 13, 2025 Team Status: Active Member Role/Relationship Status Dates Dr. Briseyda Sinclair MD Primary Care Provider Active Start: January 13, 2025 Dr. Briseyda Sinclair MD Referring Provider Active Start: January 13, 2025 Dr. Mookie Werner MD Attending Provider Active S tart: January 13, 2025 Team Status: Inactive Member Role/Relationship Status Dates Dr. Briseyda Sinclair MD Primary Care Provider Active Start: January 13, 2025 End: January 14, 2025 Dr. Diogenes Villalpando DO Emergency Provider Active Start : January 13, 2025 End: January 14, 2025 Dr. Bhupinder Kenney MD Admit Provider Active Start: January 13, 2025 End: January 14, 2025 Dr. Bhupinder Kenney MD Other Provider Active Start: January 13, 2025 End: January 14, 2025 Dr. Renae Rubalcava MD Attending Provider Active Start: January 13, 2025 End: January 14, 2025 Team Status: Active Member Role/Relationship Status Dates Dr. Briseyda Sinclair MD Primary Care Provider Active Start: January 13, 2025 Dr. Diogenes Villalpando DO Emergency Provider Active Start : January 13, 2025 Dr. Bhupinder Kenney MD Admit Provider Active Start: January 13, 2025 Dr. Bhupinder Kenney MD Other Provider Active Start: January 13, 2025 Dr. Renae Rubalcava MD Attending Provider Active Start: January 13, 2025 Dr. Renae Rubalcava MD Other Provider Active St art: January 13, 2025 Team Status: Active Member Role/Relationship Status Dates Dr. Briseyda Sinclair MD Primary Care Provider Active Start: January 14, 2025 Dr. Diogenes Villalpando DO Emergency Provider Active Start : January 14, 2025 Dr. Bhupinder Kenney MD Admit Provider Active Start: January 14, 2025 Dr. Bhupinder Kenney MD Other Provider Active Start: January 14, 2025 Dr. Renae Rubalcava MD Attending Provider Active Start: January 14, 2025 Dr. Renae Rubalcava MD Other Provider Active St art: January 14, 2025 Team Status: Active Member Role/Relationship Status Dates Dr. Briseyda Sinclair MD Primary Care Provider Active Start: January 18, 2025 Dr. Briseyda Sinclair MD Attending Provider Active Start: January 18, 2025 Team Status: Inactive Member Role/Relationship Status Dates Dr. Briseyda Sinclair MD Primary Care Provider Active Start: January 18, 2025 End: January 18, 2025 Dr. Renae Rubalcava MD Attending Provider Active Start: January 18, 2025 End: January 18, 2025 Dr. Renae Rubalcava MD Referring Provider Active Start: January 18, 2025 End: January 18, 2025 Team Status: Inactive Member Role/Relationship Status Dates Dr. Briseyda Sinclair MD Primary Care Provider Active Start: January 25, 2025 End: January 25, 2025 Dr. Dony Daily MD Attending Provider Active Start: January 25, 2025 End: January 25, 2025 Dr. Dony Daily MD Referring Provider Active Start: January 25, 2025 End: January 25, 2025 Team Status: Inactive Member Role/Relationship Status Dates Dr. Briseyda Sinclair MD Primary Care Provider Active Start: January 27, 2025 End: January 27, 2025 Dr. Briseyda Sinclair MD Attending Provider Active Start: January 27, 2025 End: January 27, 2025 Team Status: Inactive Member Role/Relationship Status Dates Dr. Mookie Werner MD Attending Provider Active S tart: February 01, 2025 End: February 01, 2025 Dr. Briseyda Sinclair MD Primary Care Provider Active Start: February 01, 2025 End: February 01, 2025 Dr. Briseyda Sinclair MD Referring Provider Active Start: February 01, 2025 End: February 01, 2025 Team Status: Inactive Member Role/Relationship Status Dates Dr. Briseyda Sinclair MD Primary Care Provider Active Start: February 06, 2025 End: February 06, 2025 Dr. Briseyda Sinclair MD Referring Provider Active Start: February 06, 2025 End: February 06, 2025 SILVIA Max Attending Provider Active Start: February 06, 2025 End: February 06, 2025 Team Status: Inactive Member Role/Relationship Status Dates Dr. Briseyda Sinclair MD Primary Care Provider Active Start: February 11, 2025 End: February 11, 2025 Dr. Briseyda Sinclair MD Referring Provider Active Start: February 11, 2025 End: February 11, 2025 SILVIA Barrientos Attending Provider Active S tart: February 11, 2025 End: February 11, 2025 Team Status: Active Member Role/Relationship Status Dates Dr. Briseyda Sinclair MD Primary Care Provider Active Start: February 19, 2025 SILVIA Barrientos Attending Provider Active S tart: February 19, 2025 SILVIA Barrientos Referring Provider Active S tart: February 19, 2025 Vegetable [employer] Work[employer] Relationship Specialty Start Date End Date Dottie Briseyda [address] [place] [id number] PCP - General Internal Medicine 03/04/25 [employer] Work[employer] Relationship Specialty Start Date End Date Briseyda Sinclair [address] [place] [id number] PCP - General Internal Medicine 03/04/25 Team Status: Inactive Member Role/Relationship Status Dates Dr. Briseyda Sinclair MD Primary Care Provider Active Start: March 29, 2025 End: March 29, 2025 Dr. Ravinder Vance DO Emergency Provider Active Start: March 29, 2025 End: March 29, 2025 Team Status: Active Member Role/Relationship Status Dates Dr. Briseyda Sinclair MD Primary Care Provider Active Start: February 19, 2025 Dr. Cuate Garrison MD Attending Provider Active Start: February 19, 2025 SILVIA Barrientos Referring Provider Active S tart: February 19, 2025 Team Status: Inactive Member Role/Relationship Status Dates Dr. Briseyda Sinclair MD Primary Care Provider Active Start: March 29, 2025 End: March 29, 2025 Dr. Ravinder Vance DO Attending Provider Active Start: March 29, 2025 End: March 29, 2025 Dr. Ravinder Vance DO Emergency Provider Active Start: March 29, 2025 End: March 29, 2025 Team Status: Inactive Member Role/Relationship Status Dates Dr. Briseyda Sinclair MD Primary Care Provider Active Start: April 12, 2025 End: April 12, 2025 Dr. Briseyda Sinclair MD Referring Provider Active Start: April 12, 2025 End: April 12, 2025 SILVIA Barrientos Attending Provider Active S tart: April 12, 2025 End: April 12, 2025 Team Status: Inactive Member Role/Relationship Status Dates Dr. Briseyda Sinclair MD Primary Care Provider Active Start: April 28, 2025 End: April 28, 2025 Dr. Briseyda Sinclair MD Referring Provider Active Start: April 28, 2025 End: April 28, 2025 Dr. Cuate Garrison MD Attending Provider Active Start: April 28, 2025 End: April 28, 2025 Team Status: Active Member Role/Relationship Status Dates Dr. Briseyda Sinclair MD Primary Care Provider Active Start: January 12, 2025 Dr. Diogenes Villalpando DO Emergency Provider Active Start : January 12, 2025 Dr. Bhupinder Kenney MD Admit Provider Active Start: January 12, 2025 Dr. Bhupinder Kenney MD Attending Provider Active Start: January 12, 2025 Dr. Bhupinder Kenney MD Other Provider Active Start: January 12, 2025 Team Status: Active Member Role/Relationship Status Dates Dr. Briseyda Sinclair MD Primary Care Provider Active Start: January 13, 2025 Dr. Jeffrey Lord MD Attending Provider Active S tart: January 13, 2025 Team Status: Active Member Role/Relationship Status Dates Dr. Briseyda Sinclair MD Primary Care Provider Active Start: January 13, 2025 Dr. Briseyda Sinclair MD Referring Provider Active Start: January 13, 2025 Dr. Mookie Werner MD Attending Provider Active S tart: January 13, 2025 Team Status: Inactive Member Role/Relationship Status Dates Dr. Briseyda Sinclair MD Primary Care Provider Active Start: January 13, 2025 End: January 14, 2025 Dr. Diogenes Villalpando DO Emergency Provider Active Start : January 13, 2025 End: January 14, 2025 Dr. Bhupinder Kenney MD Admit Provider Active Start: January 13, 2025 End: January 14, 2025 Dr. Bhupinder Kenney MD Other Provider Active Start: January 13, 2025 End: January 14, 2025 Dr. Renae Rubalcava MD Attending Provider Active Start: January 13, 2025 End: January 14, 2025 Team Status: Active Member Role/Relationship Status Dates Dr. Briseyda Sinclair MD Primary Care Provider Active Start: January 13, 2025 Dr. Diogenes Villalpando DO Emergency Provider Active Start : January 13, 2025 Dr. Bhupinder Kenney MD Admit Provider Active Start: January 13, 2025 Dr. Bhupinder Kenney MD Other Provider Active Start: January 13, 2025 Dr. Renae Rubalcava MD Attending Provider Active Start: January 13, 2025 Dr. Renae Rubalcava MD Other Provider Active St art: January 13, 2025 Team Status: Active Member Role/Relationship Status Dates Dr. Briseyda Sinclair MD Primary Care Provider Active Start: January 14, 2025 Dr. Diogenes Villalpando DO Emergency Provider Active Start : January 14, 2025 Dr. Bhupinder Kenney MD Admit Provider Active Start: January 14, 2025 Dr. Bhupinder Kenney MD Other Provider Active Start: January 14, 2025 Dr. Renae Rubalcava MD Attending Provider Active Start: January 14, 2025 Dr. Renae Rubalcava MD Other Provider Active St art: January 14, 2025 Team Status: Active Member Role/Relationship Status Dates Dr. Briseyda Sinclair MD Primary Care Provider Active Start: January 18, 2025 Dr. Briseyda Sinclair MD Attending Provider Active Start: January 18, 2025 Team Status: Inactive Member Role/Relationship Status Dates Dr. Briseyda Sinclair MD Primary Care Provider Active Start: January 18, 2025 End: January 18, 2025 Dr. Renae Rubalcava MD Attending Provider Active Start: January 18, 2025 End: January 18, 2025 Dr. Renae Rubalcava MD Referring Provider Active Start: January 18, 2025 End: January 18, 2025 Team Status: Inactive Member Role/Relationship Status Dates Dr. Briseyda Sinclair MD Primary Care Provider Active Start: January 25, 2025 End: January 25, 2025 Dr. Dony Daily MD Attending Provider Active Start: January 25, 2025 End: January 25, 2025 Dr. Dony Daily MD Referring Provider Active Start: January 25, 2025 End: January 25, 2025 Team Status: Inactive Member Role/Relationship Status Dates Dr. Briseyda Sinclair MD Primary Care Provider Active Start: January 27, 2025 End: January 27, 2025 Dr. Briseyda Sinclair MD Attending Provider Active Start: January 27, 2025 End: January 27, 2025 Team Status: Inactive Member Role/Relationship Status Dates Dr. Mookie Werner MD Attending Provider Active S tart: February 01, 2025 End: February 01, 2025 Dr. Briseyda Sinclair MD Primary Care Provider Active Start: February 01, 2025 End: February 01, 2025 Dr. Briseyda Sinclair MD Referring Provider Active Start: February 01, 2025 End: February 01, 2025 Team Status: Inactive Member Role/Relationship Status Dates Dr. Briseyda Sinclair MD Primary Care Provider Active Start: February 06, 2025 End: February 06, 2025 Dr. Briseyda Sinclair MD Referring Provider Active Start: February 06, 2025 End: February 06, 2025 Brenda Tovar NP-C Attending Provider Active Start: February 06, 2025 End: February 06, 2025 Team Status: Inactive Member Role/Relationship Status Dates Dr. Briseyda Sinclair MD Primary Care Provider Active Start: February 11, 2025 End: February 11, 2025 Dr. Briseyda Sinclair MD Referring Provider Active Start: February 11, 2025 End: February 11, 2025 Saira Sánchez NP-C Attending Provider Active S tart: February 11, 2025 End: February 11, 2025 Team Status: Active Member Role/Relationship Status Dates Dr. Briseyda Sinclair MD Primary Care Provider Active Start: February 19, 2025 Saira Sánchez NP-C Attending Provider Active S tart: February 19, 2025 Saira Sánchez NP-C Referring Provider Active S tart: February 19, 2025 Team Status: Active Member Role/Relationship Status Dates Dr. Briseyda Sinclair MD Primary Care Provider Active Start: February 19, 2025 Dr. Cuate Garrison MD Attending Provider Active Start: February 19, 2025 Saira Sánchez NP-C Referring Provider Active S tart: February 19, 2025 Team Status: Inactive Member Role/Relationship Status Dates Dr. Briseyda Sinclair MD Primary Care Provider Active Start: March 29, 2025 End: March 29, 2025 Dr. Ravinder Vance DO Attending Provider Active Start: March 29, 2025 End: March 29, 2025 Dr. Ravinder Vance DO Emergency Provider Active Start: March 29, 2025 End: March 29, 2025 Team Status: Inactive Member Role/Relationship Status Dates Dr. Briseyda Sinclair MD Primary Care Provider Active Start: April 12, 2025 End: April 12, 2025 Dr. Briseyda Sinclair MD Referring Provider Active Start: April 12, 2025 End: April 12, 2025 SILVIA Barrientos Attending Provider Active S tart: April 12, 2025 End: April 12, 2025 Team Status: Inactive Member Role/Relationship Status Dates Dr. Briseyda Sinclair MD Primary Care Provider Active Start: April 28, 2025 End: April 28, 2025 Dr. Briseyda Sinclair MD Referring Provider Active Start: April 28, 2025 End: April 28, 2025 Dr. Cuate Garrison MD Attending Provider Active Start: April 28, 2025 End: April 28, 2025 Team Status: Inactive Member Role/Relationship Status Dates Dr. Briseyda Sinclair MD Primary Care Provider Active Start: May 03, 2025 End: May 03, 2025 Dr. Briseyda Sinclair MD Attending Provider Active Start: May 03, 2025 End: May 03, 2025 Team Status: Inactive Member Role/Relationship Status Dates Dr. Briseyda Sinclair MD Primary Care Provider Active Start: May 06, 2025 End: May 06, 2025 Dr. Brisyeda Sinclair MD Attending Provider Active Start: May 06, 2025 End: May 06, 2025 Dr. Briseyda Sinclair MD Referring Provider Active Start: May 06, 2025 End: May 06, 2025 Team Status: Active Member Role/Relationship Status Dates Dr. Briseyda Sinclair MD Primary Care Provider Active Start: May 12, 2025 Dr. Briseyda Sinclair MD Referring Provider Active Start: May 12, 2025 Dr. Mookie Werner MD Attending Provider Active S tart: May 12, 2025 Team Status: Inactive Member Role/Relationship Status Dates Dr. Briseyda Sinclair MD Primary Care Provider Active Start: May 12, 2025 End: May 12, 2025 Dr. Briseyda Sinclair MD Referring Provider Active Start: May 12, 2025 End: May 12, 2025 Dr. Mookie Werner MD Attending Provider Active S tart: May 12, 2025 End: May 12, 2025 [employer] Relationship Specialty Start Date End Date Briseyda Sinclair [address] [place] [id number] PCP - General Internal Medicine 03/04/25 [employer] Relationship Specialty Start Date End Date Briseyda Sinclair [address] [place] [id number] PCP - General Internal Medicine 03/04/25 FOR RECORDS PERTAINING TO PATIENTS WHO ARE [...] BE BASED ON THE PRIMARY CLINICAL RECORDS. [facility]. provides no warranty or guarantee of the accuracy or completeness of information in this document.
--- NOTE | 2025-06-05 05:42 | PCM.HP.STD ---
HPI - General General Date of Admission: 06/05/25 Date of Service: 06/05/25 Chief Complaint: Intractable N/V HPI Narrative The patient is a 74 y/o M w/ PMHx: CKD stage III unclear subtype per previous GFR trending, GERD, Hx TIA/CVA, Hypothyroidism, HTN, HLD, Carotid disease, Former tobacco use, IDDM, CAD s/p PCI, Chronic normocytic anemia who presents to the [facility] ED on 06/05/2025 with history of onset general fatigue, malaise with persistent nausea and emesis starting ~ 36 hours prior with poor recent oral intake with no abdominal pain or diarrhea not improving prompting eventual ED evaluation. Workup in the ED included T97.9, heart rate 88, BP 173/67, respiratory rate 16, 100% on room air, CBC with WC 10.5, 112, MCV 94.4, platelet 285 with left shift, CMP with potassium 6.3 not noted to be hemolyzed, carbon oxide 11, anion gap 29, BUN/creatinine 92/8.74, GFR 6, glucose 104, troponin 116 with most recently noted troponin prior to this 03/29/25 39, acute abdominal series without acute findings, EKG with very slight T wave peaking but no other acute changes or evidence of ischemia. In the ED patient ministered 1 L normal saline, Zofran 4 mg IV x 1 as well as Kayexalate 15 mg p.o. x 1. ED discussed case with Nephrology. [facility] Medical History Cancer Alcohol use History of steroid therapy Back pain TIA (transient ischemic attack) Gastric reflux Shortness of breath on exertion Hypertension Leg cramps History of stress test History of echocardiogram History of Holter monitoring Diarrhea Lower urinary tract symptoms (LUTS) Acute urinary retention Hypothyroidism Lumbar radiculopathy, acute Near syncope Chest pain Wears glasses Insulin dependent diabetes mellitus High cholesterol Stroke/cerebrovascular accident Dietary restriction Former smoker Cardiology follow-up encounter History of heart attack History of hemorrhagic cerebrovascular accident (CVA) without residual deficits Carotid artery disease Coronary artery disease Dyspnea on exertion Abnormal stress test History of recent pneumonia Hypertriglyceridemia Cardiomyopathy, ischemic History of left heart catheterization (LHC) BPH (benign prostatic hyperplasia) Multiple lacunar infarcts Hemorrhagic cerebrovascular accident (CVA) DDD (degenerative disc disease) Pure hypercholesterolemia CKD (chronic kidney disease) stage 3, GFR 30-59 ml/min Right carotid artery occlusion Bilateral carotid artery stenosis Essential hypertension Type 2 diabetes mellitus Presence of stent in coronary artery (~08/28/01) Atherosclerotic heart disease of [place] coronary artery without angina pectoris Home Medications ?Medication ?Instructions ?Recorded ?Last Taken ?Type ascorbic acid (vitamin C) 500 mg 500 mg PO DAILY SUPPLEMENT 07/05/21 01/11/25 History tablet aspirin 81 mg tablet,delayed 81 mg PO DAILY HEART HEALTH 07/05/21 01/11/25 History release (Adult Low Dose Aspirin) cyanocobalamin (vitamin B-12) 1,000 mcg PO DAILY SUPPLEMENT 07/05/21 01/12/25 History 5,000 mcg disintegrating tablet cholecalciferol (vitamin D3) 25 25 mcg PO BID SUPPLEMENT 07/20/21 01/12/25 History mcg (1,000 unit) tablet lancets 33 gauge (OneTouch Delica #100 ea 05/04/24 Unknown Rx Plus Lancet) atorvastatin 80 mg tablet 80 mg PO QHS CHOLESTEROL #90 08/10/24 01/11/25 Rx TABLETS carvedilol 12.5 mg tablet 12.5 mg PO BID HEART #180 tabs 08/10/24 01/12/25 Rx lisinopril 20 mg tablet 20 mg PO DAILY BP #90 TABLETS 08/10/24 01/12/25 Rx metformin 500 mg tablet 1,000 mg (2 x 500 mg) PO BID BLOOD 08/10/24 01/12/25 Rx SUGARS #360 tabs pen needle, diabetic 32 gauge x #100 ea 01/04/25 Unknown Rx 1/4 (Comfort EZ Pen Winfred) finasteride 5 mg tablet 5 mg PO QHS PROSTATE 01/27/25 Unknown History blood sugar diagnostic (OneTouch #100 ea 02/24/25 Unknown Rx Verio test strips) glimepiride 4 mg tablet 4 mg PO BID BLOOD SUGARS #90 tabs 02/25/25 Unknown Rx tamsulosin 0.4 mg capsule 0.4 mg PO QHS PROSTATE #90 caps 04/09/25 Unknown Rx insulin glargine U-300 conc 300 36 unit (0.12 mL) subcut DAILY 04/19/25 Unknown Rx unit/mL (1.5 mL) subcutaneous pen BLOOD SUGARS #4.5 mL (Toujeo SoloStar U-300 Insulin) skyedine 10 mg tablet 10 mg PO QDAY ALLERGY 04/28/25 Unknown History magnesium glycinate 100 mg (as 400 mg PO QDAY 05/12/25 Unknown History glycinate) tablet prasugrel HCl 10 mg tablet 10 mg PO QDAY HEART #90 tabs 05/18/25 Unknown Rx (Effient) amlodipine 5 mg tablet 5 mg PO QHS BP 05/28/25 Unknown History famotidine 20 mg tablet 20 mg PO QHS GERD 05/28/25 Unknown History isosorbide mononitrate 30 mg 30 mg PO QHS HEART 05/28/25 Unknown History tablet,extended release 24 hr magnesium glycinate 100 mg (as 400 mg PO QHS SUPPLEMENT 05/28/25 Unknown History glycinate) tablet Allergy/AdvReac Type Severity Reaction Status Date / Time ticagrelor (From Brilinta) AdvReac Severe Other Verified 06/05/25 04:27 Family History Mother CAD (coronary artery disease) Diabetes Myocardial infarction, Onset Age: 48 Father Diabetes Breast cancer Brother Diabetes Cancer Brother Cancer Prostate Surgical History History of cardiac catheterization History of lumbar discectomy Hx of oral surgery History of coronary artery stent placement History of removal of skin mole Hx of LASIK Hx of colonoscopy History of left heart catheterization (LHC) (~06/01/22) History of arthroscopic surgery of shoulder History of laminectomy (~2007) Presence of coronary angioplasty implant and graft (~08/28/01) Social History household members: spouse housing: house Smoking Status: Former smoker alcohol intake: never details: occasional substance use type: does not use caffeine: Yes Type: tea Number of servings: 1 what type of physical activity do you participate in: none additional social history: Daily aspirin use. Does not use ibuprofen daily. ROS ROS Narrative Admission Review of Systems: CONSTITUTIONAL: No weight loss, fever, chills, + weakness or fatigue. HEENT: Eyes: No visual loss, blurred vision, double vision or yellow sclerae. Ears, Nose, Throat: No hearing loss, sneezing, congestion, runny nose or sore throat. SKIN: No rash or itching, lesions, wounds. CARDIOVASCULAR: No chest pain, chest pressure or chest discomfort, palpitations, edema, orthopnea, syncopal events. RESPIRATORY: No shortness of breath, cough or sputum, wheezing, hemoptysis. GASTROINTESTINAL: + anorexia, nausea, vomiting. No diarrhea, abdominal pain, melena, BRBPR. GENITOURINARY: No dysuria, frequency, urgency or retention. NEUROLOGICAL: No headache, dizziness, syncope, paralysis, ataxia, numbness or tingling in the extremities, focal weakness, change in bowel or bladder control, seizure. MUSCULOSKELETAL: + muscle, back pain, joint pain or stiffness. HEMATOLOGIC: + Chronic anemia, easy bleeding/bruising. LYMPHATICS: No enlarged nodes. No history of splenectomy. PSYCHIATRIC: No history of depression or anxiety. ENDOCRINOLOGIC: No reports of sweating, cold or heat intolerance. No polyuria or polydipsia. ALLERGIES: + History of allergic rhinitis. Vital Signs Vital Signs Vital Signs: 06/05/25 04:17 06/05/25 05:29 Temperature 97.9 F 97.8 F Temperature Source Oral Pulse Rate 88 88 Respiratory Rate 16 15 Blood Pressure 173/67 H 162/74 H Blood Pressure Mean 102 103 Pulse Ox 100 100 Oxygen Delivery Method Room Air Weight Weight: 164 lb 0.383 oz Body Mass Index (BMI) 22.2 Physical Exam Narrative Physical Examination: General: Awake, alert, oriented x 3 and cooperative, seated upright in ED bed, fatigued but no acute distress. Skin: Normal color, normal turgor, no icterus, no cyanosis except occasional stage ecchymoses. HEENT: AT/NC, EOMI, PERRLA, dry MM, no carotid bruits or JVD noted. Lungs: Mildly diminished, greater bases, proper effort, no rales, ronchi or wheezing. Heart: Regular rate and rhythm; no gallop, rub audible. Abdomen: Soft, NTTP, ND, mildly hyperactive BS, no appreciated HSM. Extremities: No cyanosis, clubbing, or edema. Neurological: Patient awake, alert, oriented as noted, cognitive function intact; pupils equally reactive to light and accommodation, cranial nerves grossly normal, moving all 4 extremities, no focal deficits, strength moderately globally decreased. Psychiatric: Affect appears mildly flat, fatigued, no acute evidence of depressive or anxiety feelings. Results Lab / Micro Data 06/05/25 04:30 06/05/25 04:30 Labs: Laboratory Results - last 24 hr 06/05/25 04:30: WBC 10.5, RBC 3.75 L, Hgb 12.0 L, Hct 35.4 L, MCV 94.4 H, MCH 32.0, MCHC 33.9, RDW Std Deviation 44.4 H, RDW Coeff of Rich 12.9, Plt Count 285, MPV 9.9, Immature Gran % (Auto) 0.500, Neut % (Auto) 82.3 H, Lymph % (Auto) 11.2 L, Mchenry % (Auto) 5.6, Eos % (Auto) 0.2, Baso % (Auto) 0.2, Absolute Neuts (auto) 8.6 H, Absolute Lymphs (auto) 1.17, Nucleated RBC % 0, Sodium 140, Potassium 6.3 H*, Chloride 100, Carbon Dioxide 11.0 L, Anion Gap 29 H, BUN 92 H, Creatinine 8.74 H*, Estim Creat Clear Calc 7.80 L*, Est GFR (MDRD) Non-Af 6 L, BUN/Creatinine Ratio 10.5, Glucose 104 H, Calcium 10.5, Total Bilirubin 0.29, AST 26, ALT 24, Alkaline Phosphatase 84, Troponin T High Sens 116 H* D, Total Protein 6.8, Albumin 3.9, Globulin 2.9, Albumin/Globulin Ratio 1.3 Rhythm Strip Rhythm Strip: Sinus Rhythm Rate: 85 Ectopy: None Assessment & Plan Assessment/Plan (1) Acute renal failure: (2) Acute uremia: (3) Hyperkalemia, diminished renal excretion: PLAN: Plan The patient is a 74 y/o M w/ PMHx: CKD stage III unclear subtype per previous GFR trending, GERD, Hx TIA/CVA, Hypothyroidism, HTN, HLD, Carotid disease, Former tobacco use, IDDM, CAD s/p PCI, Chronic normocytic anemia who presents to the [facility] ED on 06/05/2025 with history of onset general fatigue, malaise with persistent nausea and emesis starting over the last 36 hours with poor recent oral intake with no abdominal pain or diarrhea not improving prompting eventual ED evaluation. #1. Intractable nausea and emesis likely secondary to acute gastroenteritis: Will admit to PCU given #2 in the setting of #3 with also #4 as noted, Will continue aggressive hydration, if any onset of diarrhea certainly will obtain stool studies and C. difficile but at this point has not been an issue, will not start antibiotics at this time given unclear source pending stool studies as may be viral gastroenteritis. Anti-emetics, pain regimen PRN. #2. Acute kidney injury on CKD stage III unclear subtype per previous GFR trending/acute uremia: Secondary to significant GI losses and poor intake, admission BUN/Cr 92/8.74, GFR 6, prior baseline creatinine noted to be primarily 1.3-1.6, most recently 03/29/2025 creatinine 1.63,. Will hydrate, hold nephrotoxic medications and repeat chemistry in AM. Will obtain renal ultrasound, FeNa assessment. Nephrology consulted. #3. Hyperkalemia: In the setting as noted of acute kidney injury secondary to significant GI losses, initiated on Kayexalate in the ED, will continue IV fluids, administer albuterol, insulin with dextrose, calcium and will continue to cycle BMP with repeat administration of hyperkalemic protocol as needed, will maintain on telemetry. #4. Indeterminate cardiac enzyme of unclear significance: EKG in ED w/ sinus rhythm with no acute evidence of ischemia with mildly peaked T waves, troponin elevated initial 116, will maintain on a monitored bed, continue serial cardiac enzymes and EKGs. Obtain magnesium level upon admission. Will maintain on chemoprophylactic heparin, but if enzymes rise will transition to heparin drip. Continue medical management w/ asa, BB, statin w/ AM FLP. ECHO requested. If enzymes continue to trend upward will involve cardiology otherwise may be demand given his acute presentation with GI illness and acute kidney injury. At this point patient would be an appropriate for catheterization given his renal function. #5. CAD: Status post previous PCI, will continue aspirin, Effient, statin, Coreg, holding lisinopril given acute kidney injury. #6. Carotid disease: Will continue Effient, aspirin, statin, hypertensive regimen, diabetic regimen as noted. #7. Chronic normocytic anemia: Admission hemoglobin 12, MCV 94.4, baseline primarily 11-12, stable, continue to trend. #8. History of TIA/CVA: Remote history per records [facility]. Currently given CAD maintained on Effient, aspirin. Will continue statin, Coreg, holding lisinopril given acute kidney injury, continue diabetic regimen with adjustments as noted. #9. Diabetes mellitus type II: Hold oral home regimen, continue home insulin regimen, ADA diet, accu checks w/ ISS. #10. Hypertension: Holding all nephrotoxic medications, will continue isosorbide, Coreg, amlodipine with also as needed IV hydralazine. #11. Hyperlipidemia: Will continue patient on statin therapy, FLP in AM. #12. BPH with obstructive pathology: Will continue patient on Flomax regimen, evaluating for retention, UA pending per ED. #13. Former tobacco use: Encourage continued tobacco cessation. #14. Allergic rhinitis: Will continue patient on loratadine regimen. #15. GERD: IV PPI. #16. DVT prophylaxis: Heparin. #17. CODE status: Full Code. Charges/Coding Visit Charges Inpatient E&M: 08413 Init Hosp L3
--- NOTE | 2025-06-05 05:50 | US_ITS ---
PROCEDURE: KIDNEY AND BLADDER 06/05/2025 REASON FOR EXAM: JINA ON CKD TECHNIQUE: Procedure Code: USKI Modality: US Procedure: KIDNEY AND BLADDER. Real-time ultrasound of the retroperitoneum (complete) with image documentation. FINDINGS: RIGHT KIDNEY Size: Normal measuring 11.3 x 5.7 x 5.9 cm. Echogenicity: Normal. Parenchymal thickness: Normal. Hydronephrosis: None. Calculi: None. Cysts: Superolateral anechoic cyst measuring 2.6 x 2.1 x 1.8 cm. Solid masses: None. LEFT KIDNEY Size: Normal measuring 11.1 x 6.1 x 5.8 cm. Echogenicity: Normal. Parenchymal thickness: Normal. Hydronephrosis: None. Calculi: None. Cysts: None. Solid masses: None. BLADDER: Bolaños decompressed urinary bladder. PROSTATE: Limited evaluation due to empty bladder, however grossly enlarged. US/Kidney and Bladder IMPRESSION: Right renal cyst. Reading Location: [id number]
--- OUTSIDE RECORDS SUMMARY | 2025-06-05 06:08 | XMS RPT_ITS | CCD ---
Author Organization [facility] CliniSytn Care Team Providers Care Community Fundraiser Name Role Phone Eloy Martinez MD Unavailable Unavailable Primary Care Provider Dr. Briseyda Peña Primary Care Provider Dr. Briseyda Sinclair Attending Provider [phone] Dr. Briseyda Sinclair Referring Provider [phone] Priyanka Haines Attending Provider Unavailable Dr. Tatiana Strauss Emergency Provider [phone] Renae Rubalcava Admit Provider Dr. Renae Rubalcava Attending Provider [phone] Renae Rubalcava Other Provider Dr. Briseyda Sinclair Primary Care Provider Dr. Briseyda Sinclair Attending Provider [phone] Dr. Briseyad Sinclair Referring Provider [phone] Dr. Manuel Gilman [...] Mukul, Dr. Manuel Hall Referring Provider Dr. rBiseyda Sinclair Referring Provider Dr. Briseyda Sinclair Attending [...] Primary Care Provider Dottie LORENZO, Dr. Corrales Referring Provider [...] LORENZO, Dr. Dony Cerna Attending Provider [phone] Killian LORENZO, Dr. Dony Cerna Referring Provider Dottie LORENZO, Dr. Corrales Primary Care Provider Oleg LORENZO, Dr. Padron Attending Provider Dottie LORENZO, Dr. Corrales Referring Provider Dottie LORENZO, Dr. Corrales Primary Care Provider La DE LA FUENTE-CBrenda Attending Provider Gonzalo HOUSE MOVING SUPERVISOR-C, Saira Attending Provider [phone] Briseyda Sinclair Primary Care Provider Dottie LORENZO, Dr. Corrales Primary Care Provider Dottie LORENZO, Dr. Corrales Attending Provider Dr. Briseyda Sinclair MD Referring Provider Gonzalo HOUSE MOVING SUPERVISOR-C, Saira Referring Provider Dr. Ravinder Vance DO [...] LORENZO, Dr. Corrales Primary Care Provider [phone] Dottie LORENZO, Dr. Corrales Referring Provider Dottie [...] Attending Unavailable Dottie, Briseyda Primary Care Unavailable [place], Mookie Attending Unavailable Dottie, Briseyda Referring Unavailable [...] Unavailable Dottie, Briseyda Primary Care Unavailable Pop, [place] Attending Unavailable Dottie, Briseyda Primary Care Unavailable [...] Briseyda Sinclair Primary Care Unavailable Briseyda Sinclair Attending Unavailable Allergies Allergy Classification Reported Allergen(s) Allergy Type Date of Onset Reaction(s) Facility (5 sources) Ticagrelor Drug Allergy 04-12-2025 Other [facility] (1 source) Ticagrelor Drug Allergy 05-28-2025 [facility] Repository Medications Current Medications Medication Drug Class(es) [...] mg PO DAILY July 05, 2021 12:00am [facility] atorvastatin 80 mg oral tablet (20 [...] Coronary atherosclerosis; Translations: [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 COMMENT Normal . [facility] Comment on above: Order Comment: [id number] 4STOOL CULTURE Result Comment: Test Ordered: [id number] Stool CultureSalmonella/Shigella Screen Note: CB Final report Reference Range: .Result 1 Comment CB Reference Range: .No Salmonella or Shigella recovered.Campylobacter Culture Note: CB Final report Reference Range: .Result 1 Comment CB Reference Range: .No Campylobacter species isolated.E coli Shiga Toxin EIA Negative CB Reference Range: NegativePerformed at: [address] [id number] Director: Ciaran Sethi PhD, Phone: [phone] Performed By: #### L 3410.9992, M100.0605, L7000.0300 ####[facility] [address] [place], [place], [id number] Fecal Fat, Qualitativeon FATS, NEUTRAL Normal Normal . [facility] Comment on above: Order Comment: Test( s) 304589-Ghho, Neutral; [id number]-Hnpq, Totalwas developed and its performance characteristicsdetermined by [facility]. It has not been cleared or approvedby the Food and Drug Administration. Result Comment: Norm al (<60 Droplets/HPF) Performed By: #### L 3410.9992, M100.0605, L7000.0300 ####[facility] [address] [place], [place], [address] FATS, TOTAL Normal Normal . [facility] Comment on above: Order Comment: Test( s) 258264-Ttxt, Neutral; 748474-Dggr, Totalwas developed and its performance characteristicsdetermined by [facility]. It has not been cleared or approvedby the Food and Drug Administration. Result Comment: Norm al (<100 Droplets/HPF)Performed at: [address] [id number] Director: Ciaran Sethi PhD, Phone: [phone] Performed By: #### L 3410.9992, M100.0605, L7000.0300 ####[facility] [address] [place], [place], [address] Fecal fat detectionOrdered B y: Briseyda Sinclair on 05-06-2025 Fat Ql (Stl) Normal . [facility] Comment on above: Normal (<100 Droplet s/HPF)Performed at: - [facility] [id number] Director: Ciaran Sethi PhD, Phone: [phone] No Panel InformationOrdered By: Briseyda Sinclair on 05-06-2025 Stool Neutral Fats Normal . [facility] Comment on above: Normal (<60 Droplets /HPF) Stool Lactoferrin/WBCon 04-17 WBCST Normal Reference Ran ge = Negative Fecal WBC Lactoferrin Negative: No Fecal WBC Lactoferrin present Normal [facility] Comment on above: Performed By: #### L 3410.9992, M100.0605, L7000.0300 ####[facility] [address] [place], [place], [address] Stool lactoferrin detection by immunoassayOrdered By: Briseyda Sinclair on 05-06-2025 Lactoferrin IA Ql (Stl) [facility] MR/BMS.IMBon 05-03-2025 MR/BMS.IMB Normal [facility] Cardiology Visit Reporton Cardiology Visit Report Normal [facility] Neurology Visit Reporton Neurology Visit Report Normal [facility] 36on 04-01-2025 36 Pt's say pt daniel t to ED in [place] due to chest pressure, dizziness and arm numbness. 03/29/2025. 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 Cardiology d/c'd Brilinta and restarted pt on Plavix. Normal [facility] 12 Lead EKGon 03-29-2025 12 Lead EKG Normal [facility] Absolute lymphocyte countOrd ered By: Ravinder Vance on 03-29-2025 Lymphocytes Auto (Unsp spec) [#/Vol] 1.57 10*3/uL 0.83-4.51 [facility] Absolute neutrophil countOrd ered By: Ravinder Vance on 03-29-2025 Neutrophils (Bld) [#/Vol] 2.5 10*3/uL 2.0-7.7 [facility] Anion gap in Serum or Plasma Ordered By: Ravinder Vance on 03-29-2025 Anion gap [Moles/Vol] 14 mmol/L -15 [facility] BUN/creatinine ratioOrdered By: Ravinder Vance on 03-29-2025 Urea nitrogen/Creatinine [Mass ratio] 21.1 mg/mg High 10-20 [facility] Basic Metabolic Profile (BMP )on 03-29-2025 BUN/CRE 21.1 RATIO High - [facility] Comment on above: Performed By: #### L 500.2500, L100.0100, L501.2450, L500.3400, L501.5200 ####[facility] [address] [place], [address] Calcium [Mass/Vol] 10.1 mg/dL Normal 7.6-11.0 [facility] Comment on above: Performed By: #### L 500.2500, L100.0100, L501.2450, L500.3400, L501.5200 ####[facility] [address] [place], [address] Chloride [Moles/Vol] 106 mmol/L Normal 98-108 [facility] Comment on above: Performed By: #### L 500.2500, L100.0100, L501.2450, L500.3400, L501.5200 ####[facility] [address] [place], [address] CO2 [Moles/Vol] 22.2 mmol/L Normal 21.0-32.0 [facility] Comment on above: Performed By: #### L 500.2500, L100.0100, L501.2450, L500.3400, L501.5200 ####[facility] [address] [place], [address] Creatinine [Mass/Vol] 1.63 mg/dL High 0.70-1.20 [facility] Comment on above: Performed By: #### L 500.2500, L100.0100, L501.2450, L500.3400, L501.5200 ####[facility] [address] [place], [address] ECRCL 40.60 ml/min Low 50-250 [facility] Comment on above: Performed By: #### L 500.2500, L100.0100, L501.2450, L500.3400, L501.5200 ####[facility] [address] [place], [address] GAP 14 Normal 5-15 [facility] Comment on above: Performed By: #### L 500.2500, L100.0100, L501.2450, L500.3400, L501.5200 ####[facility] [address] [place], [address] GFR/1.73 sq M.predicted among non-blacks MDRD (S/P/Bld) [Vol rate/Area] 44 mL/min/{1.73_m2} Low >60 [facility] Comment on above: Result Comment: mL/m in/1.73m2 CKD-EPI Creatinine Equation (2020) Performed By: #### L 500.2500, L100.0100, L501.2450, L500.3400, L501.5200 ####[facility] [address] [place], [address] Glucose [Mass/Vol] 136 mg/dL High 70-99 [facility] Comment on above: Performed By: #### L 500.2500, L100.0100, L501.2450, L500.3400, L501.5200 ####[facility] [address] [place], [address] Potassium [Moles/Vol] 4.2 mmol/L Normal 3.3-5.1 [facility] Comment on above: Performed By: #### L 500.2500, L100.0100, L501.2450, L500.3400, L501.5200 ####[facility] [address] [place], [address] Sodium [Moles/Vol] 142 mmol/L Normal 133-145 [facility] Comment on above: Performed By: #### L 500.2500, L100.0100, L501.2450, L500.3400, L501.5200 ####[facility] [address] [place], [address] Urea nitrogen [Mass/Vol] 34 mg/dL High 4- [facility] Comment on above: Performed By: #### L 500.2500, L100.0100, L501.2450, L500.3400, L501.5200 ####[facility] [address] [place], [address] Basophil percentageOrdered B y: Ravinder Vance on 03-29-2025 Basophils/100 WBC (Bld) 0.6 % 0-1 [facility] Bilirubin directOrdered By: Ravinder Vance on 03-29-2025 Bilirubin.direct [Mass/Vol] 0.20 mg/dL 0.00-0.30 [facility] Bilirubin, totalOrdered By: Ravinder Vance on 03-29-2025 Bilirubin [Mass/Vol] 0.49 mg/dL 0.00-1.30 [facility] Blood platelets count (numbe r/volume)Ordered By: Ravinder Vance on 03-29-2025 Platelets (Bld) [#/Vol] 238 10*3/uL 150-450 [facility] CBC W/Diff, Automatedon 03-16 Absolute Lymph 1.57 X10 3/uL Normal 0.83-4.51 [facility] Comment on above: Performed By: #### L 500.2500, L100.0100, L501.2450, L500.3400, L501.5200 ####[facility] [address] [place], [address] Absolute Neut 2.5 X10 3/uL Normal 2.0-7.7 [facility] Comment on above: Performed By: #### L 500.2500, L100.0100, L501.2450, L500.3400, L501.5200 ####[facility] [address] [place], [address] Basophils/100 WBC (Bld) 0.6 % Normal 0-1 [facility] Comment on above: Performed By: #### L 500.2500, L100.0100, L501.2450, L500.3400, L501.5200 ####[facility] [address] [place], [address] Eosinophils/100 WBC (Bld) 6.7 % High 0-5 [facility] Comment on above: Performed By: #### L 500.2500, L100.0100, L501.2450, L500.3400, L501.5200 ####[facility] [address] [place], [address] Erythrocyte distribution width (RBC) [Ratio] 13.0 % Normal 11.6-14.6 [facility] Comment on above: Performed By: #### L 500.2500, L100.0100, L501.2450, L500.3400, L501.5200 ####[facility] [address] [place], [address] IG% 0.200 Normal 0.0-0.9 [facility] Comment on above: Result Comment: IG% - Immature Granulocytes (promyelocytes, myelocytes andmetamyelocytes) > 1% indicates that a LEFT SHIFT is Present. Performed By: #### L 500.2500, L100.0100, L501.2450, L500.3400, L501.5200 ####[facility] [address] [place], [address] Lymphocytes/100 WBC (Bld) 31.8 % Normal 19-41 [facility] Comment on above: Performed By: #### L 500.2500, L100.0100, L501.2450, L500.3400, L501.5200 ####[facility] [address] [place], [address] MCH (RBC) [Entitic mass] 31.3 pg Normal 27.0-32.0 [facility] Comment on above: Performed By: #### L 500.2500, L100.0100, L501.2450, L500.3400, L501.5200 ####[facility] [address] [place], [address] MCHC (RBC) [Mass/Vol] 34.4 g/dL Normal 32-36 [facility] Comment on above: Performed By: #### L 500.2500, L100.0100, L501.2450, L500.3400, L501.5200 ####[facility] [address] [place], [address] Monocytes/100 WBC (Bld) 10.5 % High 0-10 [facility] Comment on above: Performed By: #### L 500.2500, L100.0100, L501.2450, L500.3400, L501.5200 ####[facility] [address] [place], [address] Neutrophils/100 WBC (Bld) 50.2 % Normal 47-70 [facility] Comment on above: Performed By: #### L 500.2500, L100.0100, L501.2450, L500.3400, L501.5200 ####[facility] [address] [place], [address] Platelet mean volume (Bld) [Entitic vol] 9.9 fL Normal 6.2-12.0 [facility] Comment on above: Performed By: #### L 500.2500, L100.0100, L501.2450, L500.3400, L501.5200 ####[facility] [address] [place], [address] Platelets (Bld) [#/Vol] 238 10*3/uL Normal 150-450 [facility] Comment on above: Performed By: #### L 500.2500, L100.0100, L501.2450, L500.3400, L501.5200 ####[facility] [address] [place], [address] RDW SD 42.4 fl Normal 35.1-43.9 [facility] Comment on above: Performed By: #### L 500.2500, L100.0100, L501.2450, L500.3400, L501.5200 ####[facility] [address] [place], [address] Hematocrit (Bld) [Volume fraction] 34.3 % Low 40-54 [facility] Comment on above: Performed By: #### L 500.2500, L100.0100, L501.2450, L500.3400, L501.5200 ####[facility] [address] [place], [address] Hemoglobin (Bld) [Mass/Vol] 11.8 g/dL Low 13.0-16.5 [facility] Comment on above: Performed By: #### L 500.2500, L100.0100, L501.2450, L500.3400, L501.5200 ####[facility] [address] [place], [address] MCV (RBC) [Entitic vol] 91.0 fL Normal 80-94 [facility] Comment on above: Performed By: #### L 500.2500, L100.0100, L501.2450, L500.3400, L501.5200 ####[facility] [address] [place], [address] RBC (Bld) [#/Vol] 3.77 10*6/uL Low 4.6-6.2 [facility] Comment on above: Performed By: #### L 500.2500, L100.0100, L501.2450, L500.3400, L501.5200 ####[facility] [address] [place], [address] WBC (Bld) [#/Vol] 4.9 10*3/uL Normal 4.4-11.0 [facility] Comment on above: Performed By: #### L 500.2500, L100.0100, L501.2450, L500.3400, L501.5200 ####[facility] [address] [place], [address] Carbon dioxide, total [Moles /volume] in Central venous bloodOrdered By: Ravinder Vance on 03-29-2025 CO2 [Moles/Vol] 22.2 mmol/L 21.0-32.0 [facility] Chest PA and Lateralon 03-29 Chest PA and Lateral Normal [facility] Chloride assayOrdered By: Piper Vance on 03-29-2025 Chloride [Moles/Vol] 106 mmol/L 98-108 [facility] Emergency Department Summary on 03-29-2025 Emergency Department Summary Normal [facility] Eosinophil %Ordered By: Arron Vance on 03-29-2025 Eosinophils/100 WBC (Bld) 6.7 % High 0-5 [facility] Erythrocyte distribution wid th ratioOrdered By: Ravinder Vance on 03-29-2025 Erythrocyte distribution width (RBC) [Ratio] 13.0 % 11.6-14.6 [facility] Glomerular filtration rate ( GFR) estimation/1.73 sq m using serum, plasma, or whole bOrdered By: Ravinder Vance on 03-29-2025 GFR/1.73 sq M.predicted among non-blacks MDRD (S/P/Bld) [Vol rate/Area] 44 mL/min/{1.73_m2} Low >60 [facility] Comment on above: mL/min/1.73m2 CKD-EP I Creatinine Equation (2020) Hematocrit Auto (Bld) [Volum e fraction]Ordered By: Ravinder Vance on 03-29-2025 Hematocrit (Bld) [Volume fraction] 34.3 % Low 40-54 [facility] Hemoglobin measurementOrdere d By: Ravinder Vance on 03-29-2025 Hemoglobin (Bld) [Mass/Vol] 11.8 g/dL Low 13.0-16.5 [facility] Immature granulocyte percent ageOrdered By: Ravinder Vance on 03-29-2025 Immature granulocytes/100 WBC (Bld) 0.200 % 0.0-0.9 [facility] Comment on above: IG% - Immature Granu locytes (promyelocytes, myelocytes and metamyelocytes) > 1% indicates that a LEFT SHIFT is Present. L499.0042on 03-29-2025 Trop T High Sen 35 ng/L High <=22 [facility] Comment on above: Performed By: #### L 499.0042 ####[facility] [address] [place], [address] L499.0043on 03-29-2025 Trop T High Sen Normal <=22 [facility] Comment on above: Result Comment: Canc elled via OM: Order cancelled - Patient discharged Performed By: #### L 499.0043 ####[facility] [address] [place], [address] L501.4021on 03-29-2025 Trop T High Sen 39 ng/L High <=22 [facility] Comment on above: Performed By: #### L 501.4021 ####[facility] [address] [place], [address] Laboratory - Chemistry and C hemistry - challengeOrdered By: Ravinder Vance on 03-29-2025 AST [Catalytic activity/Vol] 17 U/L <38 [facility] Lipaseon 03-29-2025 Lipase [Catalytic activity/Vol] 32 U/L Normal 13-75 [facility] Comment on above: Result Comment: Lona carlton note:LIPASE revised reference range effective 22.New Lipase methodology. Expected to produce lower valuesthan the previous assay method.NEW Reference Range: 13 - 75 U/L Performed By: #### L 500.2500, L100.0100, L501.2450, L500.3400, L501.5200 ####[facility] [address] [place], [address] Lipase measurementOrdered By : Ravinder Vance on 03-29-2025 Lipase [Catalytic activity/Vol] 32 U/L 13-75 [facility] Comment on above: Please note:LIPASE r evised reference range effective 22. New Lipase methodology. Expected to produce lower values than the previous assay method. NEW Reference Range: 13 - 75 U/L Liver Profileon 03-29-2025 Albumin [Mass/Vol] 4.2 g/dL Normal 3.4-4.8 [facility] Comment on above: Performed By: #### L 500.2500, L100.0100, L501.2450, L500.3400, L501.5200 ####[facility] [address] [place], [address] ALK PHOS 75 U/L Normal 40-129 [facility] Comment on above: Performed By: #### L 500.2500, L100.0100, L501.2450, L500.3400, L501.5200 ####[facility] [address] [place], [address] ALT [Catalytic activity/Vol] 24 U/L Normal <=46 [facility] Comment on above: Performed By: #### L 500.2500, L100.0100, L501.2450, L500.3400, L501.5200 ####[facility] [address] [place], [address] AST [Catalytic activity/Vol] 17 U/L Normal <=37 [facility] Comment on above: Performed By: #### L 500.2500, L100.0100, L501.2450, L500.3400, L501.5200 ####[facility] [address] [place], [address] Bilirubin [Mass/Vol] 0.49 mg/dL Normal 0.00-1.30 [facility] Comment on above: Performed By: #### L 500.2500, L100.0100, L501.2450, L500.3400, L501.5200 ####[facility] [address] [place], [address] Bilirubin.direct [Mass/Vol] 0.20 mg/dL Normal 0.00-0.30 [facility] Comment on above: Performed By: #### L 500.2500, L100.0100, L501.2450, L500.3400, L501.5200 ####[facility] [address] [place], [address] Globulin (S) [Mass/Vol] 2.6 g/dL Normal 2.2-4.2 [facility] Comment on above: Performed By: #### L 500.2500, L100.0100, L501.2450, L500.3400, L501.5200 ####[facility] [address] [place], [address] T PROT 6.8 g/dL Normal 5.9-8.4 [facility] Comment on above: Performed By: #### L 500.2500, L100.0100, L501.2450, L500.3400, L501.5200 ####[facility] [address] [place], [address] Lymphocyte %Ordered By: Arron in [place] on 03-29-2025 Lymphocytes/100 WBC (Bld) 31.8 % 19-41 [facility] MCV (mean corpuscular volume ) determinationOrdered By: Ravinder Vance on 03-29-2025 MCV (RBC) [Entitic vol] 91.0 fL 80-94 [facility] Magnesiumon 03-29-2025 Magnesium [Mass/Vol] 1.1 mg/dL Low 1.5-2.2 [facility] Comment on above: Performed By: #### L 500.2500, L100.0100, L501.2450, L500.3400, L501.5200 ####[facility] [address] [place], [place], [address] Magnesium measurement (mass/ volume)Ordered By: Ravinder Vance on 03-29-2025 Magnesium (Unsp spec) [Mass/Vol] 1.1 mg/dL Low 1.5-2.2 [facility] Mean corpuscular hemoglobin (MCH) determinationOrdered By: Ravinder Vance on 03-29-2025 MCH (RBC) [Entitic mass] 31.3 pg 27.0-32.0 [facility] Mean corpuscular hemoglobin concentration (MCHC) determinationOrdered By: Ravinder Vance on 03-29-2025 MCHC (RBC) [Mass/Vol] 34.4 g/dL 32-36 [facility] Mean platelet volume determi nationOrdered By: Ravinder Vance on 03-29-2025 Platelet mean volume (Bld) [Entitic vol] 9.9 fL 6.2-12.0 [facility] Monocyte percentageOrdered B y: Ravinder Vance on 03-29-2025 Monocytes/100 WBC (Bld) 10.5 % High 0-10 [facility] Neutrophil %Ordered By: Arron Vance on 03-29-2025 Neutrophils/100 WBC (Bld) 50.2 % 47-70 [facility] Potassium measurement (mass/ volume)Ordered By: Ravinder Vance on 03-29-2025 Potassium (Unsp spec) [Mass/Vol] 4.2 mmol/L 3.3-5.1 [facility] RBC Auto (Bld) [#/Vol]Ordere d By: Ravinder Vance on 03-29-2025 RBC (Bld) [#/Vol] 3.77 10*6/uL Low 4.6-6.2 [facility] RDWOrdered By: Ravinder Vance on 03-29-2025 RDW 42.4 fl 35.1-43.9 [facility] Serum creatinine measurement (mass/volume)Ordered By: Ravinder Vance on 03-29-2025 Creatinine [Mass/Vol] 1.63 mg/dL High 0.70-1.20 [facility] Serum globulin measurementOr dered By: Ravinder Vance on 03-29-2025 Globulin (S) [Mass/Vol] 2.6 g/dL 2.2-4.2 [facility] Serum glucose measurement (m ass/volume)Ordered By: Ravinder Vance on 03-29-2025 Glucose [Mass/Vol] 136 mg/dL High 70-99 [facility] Serum or plasma alanine denis otransferase (ALT) measurementOrdered By: Ravinder Vance on 03-29-2025 ALT [Catalytic activity/Vol] 24 U/L <47 [facility] Serum or plasma albumin makeda urement (mass/volume)Ordered By: Ravinder Vance on 03-29-2025 Albumin [Mass/Vol] 4.2 g/dL 3.4-4.8 [facility] Serum or plasma alkaline neisha sphatase measurementOrdered By: Ravinder Vance on 03-29-2025 ALP [Catalytic activity/Vol] 75 U/L 40-129 [facility] Serum or plasma calcium makeda urement (mass/volume)Ordered By: Ravinder Vance on 03-29-2025 Calcium [Mass/Vol] 10.1 mg/dL 7.6-11.0 [facility] Serum or plasma urea nitroge n measurement (mass/volume)Ordered By: Ravinder Vance on 03-29-2025 Urea nitrogen [Mass/Vol] 34 mg/dL High 4-19 [facility] Sodium levelOrdered By: Arron Vance on 03-29-2025 Sodium [Moles/Vol] 142 mmol/L 133-145 [facility] Total proteinOrdered By: Elmer Vance on 03-29-2025 Protein [Mass/Vol] 6.8 g/dL 5.9-8.4 [facility] Troponin T.cardiac [Mass/vol ume] in Serum or Plasma by High sensitivity methodOrdered By: Ravinder Vance on 03-29-2025 Troponin T.cardiac High sensitivity method [Mass/Vol] 35 ng/L High <22 [facility] Troponin T.cardiac High sensitivity method [Mass/Vol] 39 ng/L High <22 [facility] Comment on above: Delta: 42 on 5-1446 White blood cell (WBC) count Ordered By: Ravinder Vance on 03-29-2025 WBC (Bld) [#/Vol] 4.9 10*3/uL 4.4-11.0 [facility] 36on 03-26-2025 36 Called patient to eliza archibald he was 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 Normal [facility] D/C Summary- SPon 03-22-2025 D/C Summary- SP Normal [facility] PRU TEST (P2Y12)on 5 PRU TEST (P2Y12) 191 Normal >=180 [facility] Comment on above: Result Comment: >180 - 376 PRU [P2Y12 Reaction Units] - No drug present 10-180 PRU [P2Y12 Reaction Units] - Decreased platelet reactivity to P2Y12 inhibitor. Performed By: #### L [id number] #### Metal Plater: AURELIANO ARCHIBALD ([phone]) [facility] ([facility]) [address] [place] [address] 36on 03-11-2025 36 I did. Normal [facility] 36on 03-05-2025 36 Name of caller: Kaelyn Contact phone number: [phone] Relationship to Patient: [facility] Outreach Lab Provider: Dr. Blackman Practice: Endovascular Chief Complaint/Reason for Call: Patient PRU lab was cancelled due to wrong color tube. If patient testing needs completed please reorder testing. Lab needs a christine tube, not a long top blue. Best time of day caller can be reached: any Patient advised that office/PCP has 24-48 business hours to return their call: Yes Normal [facility] Office Visiton 03-04-2025 Follow-up visit [id number] Titus Davies am 1950 M Date Provider Department Center 03/04/2025 [id number] BLACKMAN [facility] NRO None Family History Problem Relation Age of Onset Diabetes Mother Diabetes Father Esophageal cancer Brother Bone cancer Brother Prostate cancer Brother Diabetes Brother Family Status - Relation Status Age at Mother Father Brother Brother Brother Alive Level of Service:08453 [place] OFFICE/OUTPATIENT NEW MODERATE MDM 45 MINUTES Reason for Visit and Comments: New Patient [542] - aneurysm Normal [facility] Progress Noteon 03-04-2025 Progress Note History [...] tablet, , Disp: , Rfl: Droplet Pen [place] 32G X 6 MM [facility], , Disp: , Rfl: famotidine (Pepcid) 20 MG tablet, , Disp: , Rfl: glimepiride (Amaryl) 4 MG tablet, , Disp: , Rfl: isosorbide mononitrate ER (Imdur) 30 MG 24 hr tablet, , Disp: , Rfl: Lancets (TranscribeMeTouch Delica Plus [id number]) [facility], USE TO TEST BLOOD SUGAR TWICE [...] DOSE TWICE IF NEEDED, Disp: , Rfl: TranscribeMeTouch Verio test strip, USE DIRECTED TO MONITOR [...] with the pat (more content not included)... [facility] 36on 02-17-2025 36 Name of caller: Avelinanydia morgan Contact phone number: [phone] Relationship to Patient: spouse/SO Provider: Dr. Blackman [...] hours to return their call: Yes Normal [facility] Neurology Visit Reporton Neurology Visit Report Normal [facility] Laboratory - Microbiology an d Antimicrobial susceptibilityOrdered By: Brenda Tovar on 02-06-2025 SARS-CoV-2 (COVID-19) RNA LIZ+probe Ql (Unsp spec) Not detected [facility] No Panel InformationOrdered By: Brenda Tovar on 02-06-2025 Influenza Types A,B Rapid (Clinic) Negative [facility] Urgent Care Visit Reporton 0 02-06-2025 Urgent Care Visit Report Normal [facility] MR/BMS.BVSon 02-01-2025 MR/BMS.BVS Normal [facility] MR/BMS.IMBon 01-27-2025 MR/BMS.IMB Normal [facility] PSA,Total - Annual Screenon 01-25-2025 PSA,TOT SCREEN 3.91 ng/mL Normal 0.02-4.00 [facility] Comment on above: Result Comment: This test was performed using the [employer] tPSAmethod. Measured values of a patient??sample can varydepending on the testing procedure used. PSA valuesdetermined on patient samples by different testingprocedures cannot be used interchangeably. If there is achange in PSA assays while monitoring therapy, sequentialtesting should be performed to confirm baseline values. Performed By: #### L 501.9910 ####[facility] [address] [place], [address] Basic Metabolic Profile (BMP )on 01-21-2025 BUN Normal 4- [facility] Comment on above: Result Comment: Canc elled via OM: Order cancelled - Patient discharged Performed By: #### L 500.2500, L100.0100 ####[facility] [address] [place], [address] BUN/CRE Normal 10-20 [facility] Comment on above: Result Comment: Canc elled via OM: Order cancelled - Patient discharged Performed By: #### L 500.2500, L100.0100 ####[facility] [address] [place], [address] Calcium Normal 7.6-11.0 [facility] Comment on above: Result Comment: Canc elled via OM: Order cancelled - Patient discharged Performed By: #### L 500.2500, L100.0100 ####[facility] [address] [place], [address] CL Normal 98-108 [facility] Comment on above: Result Comment: Canc elled via OM: Order cancelled - Patient discharged Performed By: #### L 500.2500, L100.0100 ####[facility] [address] [place], [address] CO2 Normal 21.0-32.0 [facility] Comment on above: Result Comment: Canc elled via OM: Order cancelled - Patient discharged Performed By: #### L 500.2500, L100.0100 ####[facility] [address] [place], [address] CREAT,SERUM Normal 0.70-1.20 [facility] Comment on above: Result Comment: Canc elled via OM: Order cancelled - Patient discharged Performed By: #### L 500.2500, L100.0100 ####[facility] [address] [place], [address] eGFR Normal >60 [facility] Comment on above: Result Comment: Canc elled via OM: Order cancelled - Patient discharged Performed By: #### L 500.2500, L100.0100 ####[facility] [address] [place], [address] GAP Normal 5-15 [facility] Comment on above: Result Comment: Canc elled via OM: Order cancelled - Patient discharged Performed By: #### L 500.2500, L100.0100 ####[facility] [address] [place], [address] GLU Normal 70-99 [facility] Comment on above: Result Comment: Canc elled via OM: Order cancelled - Patient discharged Performed By: #### L 500.2500, L100.0100 ####[facility] [address] [place], [address] Potassium Normal 3.3-5.1 [facility] Comment on above: Result Comment: Canc elled via OM: Order cancelled - Patient discharged Performed By: #### L 500.2500, L100.0100 ####[facility] [address] [place], [address] Basic Metabolic Profile (BMP) Normal 133-145 [facility] Comment on above: Result Comment: Canc elled via OM: Order cancelled - Patient discharged Performed By: #### L 500.2500, L100.0100 ####[facility] [address] [place], [address] CBC W/Diff, Automatedon 05-0 Absolute Neut Normal 2.0-7.7 [facility] Comment on above: Result Comment: Canc elled via OM: Order cancelled - Patient discharged Performed By: #### L 500.2500, L100.0100 ####[facility] [address] [place], [address] HCT Normal 40-54 [facility] Comment on above: Result Comment: Canc elled via OM: Order cancelled - Patient discharged Performed By: #### L 500.2500, L100.0100 ####[facility] [address] [place], [address] HGB Normal 13.0-16.5 [facility] Comment on above: Result Comment: Canc elled via OM: Order cancelled - Patient discharged Performed By: #### L 500.2500, L100.0100 ####[facility] [address] [place], [address] MCH Normal 27.0-32.0 [facility] Comment on above: Result Comment: Canc elled via OM: Order cancelled - Patient discharged Performed By: #### L 500.2500, L100.0100 ####[facility] [address] [place], [address] MCHC Normal 32-36 [facility] Comment on above: Result Comment: Canc elled via OM: Order cancelled - Patient discharged Performed By: #### L 500.2500, L100.0100 ####[facility] [address] [place], [address] MCV Normal 80-94 [facility] Comment on above: Result Comment: Canc elled via OM: Order cancelled - Patient discharged Performed By: #### L 500.2500, L100.0100 ####[facility] [address] [place], [address] NEUT% Normal 47-70 [facility] Comment on above: Result Comment: Canc elled via OM: Order cancelled - Patient discharged Performed By: #### L 500.2500, L100.0100 ####[facility] [address] [place], [address] PLT Normal 150-450 [facility] Comment on above: Result Comment: Canc elled via OM: Order cancelled - Patient discharged Performed By: #### L 500.2500, L100.0100 ####[facility] [address] [place], [address] RBC Normal 4.6-6.2 [facility] Comment on above: Result Comment: Canc elled via OM: Order cancelled - Patient discharged Performed By: #### L 500.2500, L100.0100 ####[facility] [address] [place], [address] RDW CV Normal 11.6-14.6 [facility] Comment on above: Result Comment: Canc elled via OM: Order cancelled - Patient discharged Performed By: #### L 500.2500, L100.0100 ####[facility] [address] [place], [address] RDW SD Normal 35.1-43.9 [facility] Comment on above: Result Comment: Canc elled via OM: Order cancelled - Patient discharged Performed By: #### L 500.2500, L100.0100 ####[facility] [address] [place], [address] WBC Normal 4.4-11.0 [facility] Comment on above: Result Comment: Canc elled via OM: Order cancelled - Patient discharged Performed By: #### L 500.2500, L100.0100 ####[facility] [address] [place], [address] Basic Metabolic Profile (BMP )on 01-20-2025 BUN Normal 4-19 [facility] Comment on above: Result Comment: Canc elled via OM: Order cancelled - Patient discharged Performed By: #### L 100.0100, L500.2500 ####[facility] [address] [place], [address] BUN/CRE Normal 10-20 [facility] Comment on above: Result Comment: Canc elled via OM: Order cancelled - Patient discharged Performed By: #### L 100.0100, L500.2500 ####[facility] [address] [place], [address] Calcium Normal 7.6-11.0 [facility] Comment on above: Result Comment: Canc elled via OM: Order cancelled - Patient discharged Performed By: #### L 100.0100, L500.2500 ####[facility] [address] [place], [address] CL Normal 98-108 [facility] Comment on above: Result Comment: Canc elled via OM: Order cancelled - Patient discharged Performed By: #### L 100.0100, L500.2500 ####[facility] [address] [place], [address] CO2 Normal 21.0-32.0 [facility] Comment on above: Result Comment: Canc elled via OM: Order cancelled - Patient discharged Performed By: #### L 100.0100, L500.2500 ####[facility] [address] [place], [address] CREAT,SERUM Normal 0.70-1.20 [facility] Comment on above: Result Comment: Canc elled via OM: Order cancelled - Patient discharged Performed By: #### L 100.0100, L500.2500 ####[facility] [address] [place], [address] eGFR Normal >60 [facility] Comment on above: Result Comment: Canc elled via OM: Order cancelled - Patient discharged Performed By: #### L 100.0100, L500.2500 ####[facility] [address] [place], [address] GAP Normal 5-15 [facility] Comment on above: Result Comment: Canc elled via OM: Order cancelled - Patient discharged Performed By: #### L 100.0100, L500.2500 ####[facility] [address] [place], [address] GLU Normal 70-99 [facility] Comment on above: Result Comment: Canc elled via OM: Order cancelled - Patient discharged Performed By: #### L 100.0100, L500.2500 ####[facility] [address] [place], [address] Potassium Normal 3.3-5.1 [facility] Comment on above: Result Comment: Canc elled via OM: Order cancelled - Patient discharged Performed By: #### L 100.0100, L500.2500 ####[facility] [address] [place], [address] Basic Metabolic Profile (BMP) Normal 133-145 [facility] Comment on above: Result Comment: Canc elled via OM: Order cancelled - Patient discharged Performed By: #### L 100.0100, L500.2500 ####[facility] [address] [place], [address] CBC W/Diff, Automatedon 05-0 7-2024 Absolute Neut Normal 2.0-7.7 [facility] Comment on above: Result Comment: Canc elled via OM: Order cancelled - Patient discharged Performed By: #### L 100.0100, L500.2500 ####[facility] [address] [place], [address] HCT Normal 40-54 [facility] Comment on above: Result Comment: Canc elled via OM: Order cancelled - Patient discharged Performed By: #### L 100.0100, L500.2500 ####[facility] [address] [place], [address] HGB Normal 13.0-16.5 [facility] Comment on above: Result Comment: Canc elled via OM: Order cancelled - Patient discharged Performed By: #### L 100.0100, L500.2500 ####[facility] [address] [place], [address] MCH Normal 27.0-32.0 [facility] Comment on above: Result Comment: Canc elled via OM: Order cancelled - Patient discharged Performed By: #### L 100.0100, L500.2500 ####[facility] [address] [place], [address] MCHC Normal 32-36 [facility] Comment on above: Result Comment: Canc elled via OM: Order cancelled - Patient discharged Performed By: #### L 100.0100, L500.2500 ####[facility] [address] [place], [address] MCV Normal 80-94 [facility] Comment on above: Result Comment: Canc elled via OM: Order cancelled - Patient discharged Performed By: #### L 100.0100, L500.2500 ####[facility] [address] [place], [address] NEUT% Normal 47-70 [facility] Comment on above: Result Comment: Canc elled via OM: Order cancelled - Patient discharged Performed By: #### L 100.0100, L500.2500 ####[facility] [address] [place], [address] PLT Normal 150-450 [facility] Comment on above: Result Comment: Canc elled via OM: Order cancelled - Patient discharged Performed By: #### L 100.0100, L500.2500 ####[facility] [address] [place], [address] RBC Normal 4.6-6.2 [facility] Comment on above: Result Comment: Canc elled via OM: Order cancelled - Patient discharged Performed By: #### L 100.0100, L500.2500 ####[facility] [address] [place], [address] RDW CV Normal 11.6-14.6 [facility] Comment on above: Result Comment: Canc elled via OM: Order cancelled - Patient discharged Performed By: #### L 100.0100, L500.2500 ####[facility] [address] [place], [address] RDW SD Normal 35.1-43.9 [facility] Comment on above: Result Comment: Canc elled via OM: Order cancelled - Patient discharged Performed By: #### L 100.0100, L500.2500 ####[facility] [address] [place], [address] WBC Normal 4.4-11.0 [facility] Comment on above: Result Comment: Canc elled via OM: Order cancelled - Patient discharged Performed By: #### L 100.0100, L500.2500 ####[facility] [address] [place], [address] Basic Metabolic Profile (BMP )on 01-19-2025 BUN Normal 4-19 [facility] Comment on above: Result Comment: Canc elled via OM: Order cancelled - Patient discharged Performed By: #### L 100.0100, L500.2500 ####[facility] [address] [place], [address] BUN/CRE Normal 10-20 [facility] Comment on above: Result Comment: Canc elled via OM: Order cancelled - Patient discharged Performed By: #### L 100.0100, L500.2500 ####[facility] [address] [place], [address] Calcium Normal 7.6-11.0 [facility] Comment on above: Result Comment: Canc elled via OM: Order cancelled - Patient discharged Performed By: #### L 100.0100, L500.2500 ####[facility] [address] [place], [address] CL Normal 98-108 [facility] Comment on above: Result Comment: Canc elled via OM: Order cancelled - Patient discharged Performed By: #### L 100.0100, L500.2500 ####[facility] [address] [place], [address] CO2 Normal 21.0-32.0 [facility] Comment on above: Result Comment: Canc elled via OM: Order cancelled - Patient discharged Performed By: #### L 100.0100, L500.2500 ####[facility] [address] [place], [address] CREAT,SERUM Normal 0.70-1.20 [facility] Comment on above: Result Comment: Canc elled via OM: Order cancelled - Patient discharged Performed By: #### L 100.0100, L500.2500 ####[facility] [address] [place], [address] eGFR Normal >60 [facility] Comment on above: Result Comment: Canc elled via OM: Order cancelled - Patient discharged Performed By: #### L 100.0100, L500.2500 ####[facility] [address] [place], [address] GAP Normal 5-15 [facility] Comment on above: Result Comment: Canc elled via OM: Order cancelled - Patient discharged Performed By: #### L 100.0100, L500.2500 ####[facility] [address] [place], [address] GLU Normal 70-99 [facility] Comment on above: Result Comment: Canc elled via OM: Order cancelled - Patient discharged Performed By: #### L 100.0100, L500.2500 ####[facility] [address] [place], [address] Potassium Normal 3.3-5.1 [facility] Comment on above: Result Comment: Canc elled via OM: Order cancelled - Patient discharged Performed By: #### L 100.0100, L500.2500 ####[facility] [address] [place], [address] Basic Metabolic Profile (BMP) Normal 133-145 [facility] Comment on above: Result Comment: Canc elled via OM: Order cancelled - Patient discharged Performed By: #### L 100.0100, L500.2500 ####[facility] [address] [place], [address] CBC W/Diff, Automatedon 05-0 -2024 Absolute Neut Normal 2.0-7.7 [facility] Comment on above: Result Comment: Canc elled via OM: Order cancelled - Patient discharged Performed By: #### L 100.0100, L500.2500 ####[facility] [address] [place], [address] HCT Normal 40-54 [facility] Comment on above: Result Comment: Canc elled via OM: Order cancelled - Patient discharged Performed By: #### L 100.0100, L500.2500 ####[facility] [address] [place], [address] HGB Normal 13.0-16.5 [facility] Comment on above: Result Comment: Canc elled via OM: Order cancelled - Patient discharged Performed By: #### L 100.0100, L500.2500 ####[facility] [address] [place], [address] MCH Normal 27.0-32.0 [facility] Comment on above: Result Comment: Canc elled via OM: Order cancelled - Patient discharged Performed By: #### L 100.0100, L500.2500 ####[facility] [address] [place], [address] MCHC Normal 32-36 [facility] Comment on above: Result Comment: Canc elled via OM: Order cancelled - Patient discharged Performed By: #### L 100.0100, L500.2500 ####[facility] [address] [place], [address] MCV Normal 80-94 [facility] Comment on above: Result Comment: Canc elled via OM: Order cancelled - Patient discharged Performed By: #### L 100.0100, L500.2500 ####[facility] [address] [place], [address] NEUT% Normal 47-70 [facility] Comment on above: Result Comment: Canc elled via OM: Order cancelled - Patient discharged Performed By: #### L 100.0100, L500.2500 ####[facility] [address] [place], [address] PLT Normal 150-450 [facility] Comment on above: Result Comment: Canc elled via OM: Order cancelled - Patient discharged Performed By: #### L 100.0100, L500.2500 ####[facility] [address] [place], [address] RBC Normal 4.6-6.2 [facility] Comment on above: Result Comment: Canc elled via OM: Order cancelled - Patient discharged Performed By: #### L 100.0100, L500.2500 ####[facility] [address] [place], [address] RDW CV Normal 11.6-14.6 [facility] Comment on above: Result Comment: Canc elled via OM: Order cancelled - Patient discharged Performed By: #### L 100.0100, L500.2500 ####[facility] [address] [place], [address] RDW SD Normal 35.1-43.9 [facility] Comment on above: Result Comment: Canc elled via OM: Order cancelled - Patient discharged Performed By: #### L 100.0100, L500.2500 ####[facility] [address] [place], [address] WBC Normal 4.4-11.0 [facility] Comment on above: Result Comment: Canc elled via OM: Order cancelled - Patient discharged Performed By: #### L 100.0100, L500.2500 ####[facility] [address] [place], [address] Basic Metabolic Profile (BMP )on 01-18-2025 BUN Normal 4-19 [facility] Comment on above: Result Comment: Canc elled via OM: Order cancelled - Patient discharged Performed By: #### L 100.0100, L500.2500 ####[facility] [address] [place], [address] BUN/CRE Normal 10-20 [facility] Comment on above: Result Comment: Canc elled via OM: Order cancelled - Patient discharged Performed By: #### L 100.0100, L500.2500 ####[facility] [address] [place], [address] Calcium Normal 7.6-11.0 [facility] Comment on above: Result Comment: Canc elled via OM: Order cancelled - Patient discharged Performed By: #### L 100.0100, L500.2500 ####[facility] [address] [place], [address] CL Normal 98-108 [facility] Comment on above: Result Comment: Canc elled via OM: Order cancelled - Patient discharged Performed By: #### L 100.0100, L500.2500 ####[facility] [address] [place], [address] CO2 Normal 21.0-32.0 [facility] Comment on above: Result Comment: Canc elled via OM: Order cancelled - Patient discharged Performed By: #### L 100.0100, L500.2500 ####[facility] [address] [place], [address] CREAT,SERUM Normal 0.70-1.20 [facility] Comment on above: Result Comment: Canc elled via OM: Order cancelled - Patient discharged Performed By: #### L 100.0100, L500.2500 ####[facility] [address] [place], [address] eGFR Normal >60 [facility] Comment on above: Result Comment: Canc elled via OM: Order cancelled - Patient discharged Performed By: #### L 100.0100, L500.2500 ####[facility] [address] [place], [address] GAP Normal 5-15 [facility] Comment on above: Result Comment: Canc elled via OM: Order cancelled - Patient discharged Performed By: #### L 100.0100, L500.2500 ####[facility] [address] [place], [address] GLU Normal 70-99 [facility] Comment on above: Result Comment: Canc elled via OM: Order cancelled - Patient discharged Performed By: #### L 100.0100, L500.2500 ####[facility] [address] [place], [address] Potassium Normal 3.3-5.1 [facility] Comment on above: Result Comment: Canc elled via OM: Order cancelled - Patient discharged Performed By: #### L 100.0100, L500.2500 ####[facility] [address] [place], [address] Basic Metabolic Profile (BMP) Normal 133-145 [facility] Comment on above: Result Comment: Canc elled via OM: Order cancelled - Patient discharged Performed By: #### L 100.0100, L500.2500 ####[facility] [address] [place], [address] CBC W/Diff, Automatedon 05-0 5-2024 Absolute Neut Normal 2.0-7.7 [facility] Comment on above: Result Comment: Canc elled via OM: Order cancelled - Patient discharged Performed By: #### L 100.0100, L500.2500 ####[facility] [address] [place], [address] HCT Normal 40-54 [facility] Comment on above: Result Comment: Canc elled via OM: Order cancelled - Patient discharged Performed By: #### L 100.0100, L500.2500 ####[facility] [address] [place], [address] HGB Normal 13.0-16.5 [facility] Comment on above: Result Comment: Canc elled via OM: Order cancelled - Patient discharged Performed By: #### L 100.0100, L500.2500 ####[facility] [address] [place], [address] MCH Normal 27.0-32.0 [facility] Comment on above: Result Comment: Canc elled via OM: Order cancelled - Patient discharged Performed By: #### L 100.0100, L500.2500 ####[facility] [address] [place], [address] MCHC Normal 32-36 [facility] Comment on above: Result Comment: Canc elled via OM: Order cancelled - Patient discharged Performed By: #### L 100.0100, L500.2500 ####[facility] [address] [place], [address] MCV Normal 80-94 [facility] Comment on above: Result Comment: Canc elled via OM: Order cancelled - Patient discharged Performed By: #### L 100.0100, L500.2500 ####[facility] [address] [place], [address] NEUT% Normal 47-70 [facility] Comment on above: Result Comment: Canc elled via OM: Order cancelled - Patient discharged Performed By: #### L 100.0100, L500.2500 ####[facility] [address] [place], [address] PLT Normal 150-450 [facility] Comment on above: Result Comment: Canc elled via OM: Order cancelled - Patient discharged Performed By: #### L 100.0100, L500.2500 ####[facility] [address] [place], [address] RBC Normal 4.6-6.2 [facility] Comment on above: Result Comment: Canc elled via OM: Order cancelled - Patient discharged Performed By: #### L 100.0100, L500.2500 ####[facility] [address] [place], [address] RDW CV Normal 11.6-14.6 [facility] Comment on above: Result Comment: Canc elled via OM: Order cancelled - Patient discharged Performed By: #### L 100.0100, L500.2500 ####[facility] [address] [place], [address] RDW SD Normal 35.1-43.9 [facility] Comment on above: Result Comment: Canc elled via OM: Order cancelled - Patient discharged Performed By: #### L 100.0100, L500.2500 ####[facility] [address] [place], [address] WBC Normal 4.4-11.0 [facility] Comment on above: Result Comment: Canc elled via OM: Order cancelled - Patient discharged Performed By: #### L 100.0100, L500.2500 ####[facility] [address] [place], [address] Basic Metabolic Profile (BMP )on 01-17-2025 BUN Normal -19 [facility] Comment on above: Result Comment: Canc elled via OM: Order cancelled - Patient discharged Performed By: #### L 100.0100, L500.2500 ####[facility] [address] [place], [address] BUN/CRE Normal 10-20 [facility] Comment on above: Result Comment: Canc elled via OM: Order cancelled - Patient discharged Performed By: #### L 100.0100, L500.2500 ####[facility] [address] [place], [address] Calcium Normal 7.6-11.0 [facility] Comment on above: Result Comment: Canc elled via OM: Order cancelled - Patient discharged Performed By: #### L 100.0100, L500.2500 ####[facility] [address] [place], [address] CL Normal 98-108 [facility] Comment on above: Result Comment: Canc elled via OM: Order cancelled - Patient discharged Performed By: #### L 100.0100, L500.2500 ####[facility] [address] [place], [address] CO2 Normal 21.0-32.0 [facility] Comment on above: Result Comment: Canc elled via OM: Order cancelled - Patient discharged Performed By: #### L 100.0100, L500.2500 ####[facility] [address] [place], [address] CREAT,SERUM Normal 0.70-1.20 [facility] Comment on above: Result Comment: Canc elled via OM: Order cancelled - Patient discharged Performed By: #### L 100.0100, L500.2500 ####[facility] [address] [place], [address] eGFR Normal >60 [facility] Comment on above: Result Comment: Canc elled via OM: Order cancelled - Patient discharged Performed By: #### L 100.0100, L500.2500 ####[facility] [address] [place], [address] GAP Normal 5-15 [facility] Comment on above: Result Comment: Canc elled via OM: Order cancelled - Patient discharged Performed By: #### L 100.0100, L500.2500 ####[facility] [address] [place], [address] GLU Normal 70-99 [facility] Comment on above: Result Comment: Canc elled via OM: Order cancelled - Patient discharged Performed By: #### L 100.0100, L500.2500 ####[facility] [address] [place], [address] Potassium Normal 3.3-5.1 [facility] Comment on above: Result Comment: Canc elled via OM: Order cancelled - Patient discharged Performed By: #### L 100.0100, L500.2500 ####[facility] [address] [place], [address] Basic Metabolic Profile (BMP) Normal 133-145 [facility] Comment on above: Result Comment: Canc elled via OM: Order cancelled - Patient discharged Performed By: #### L 100.0100, L500.2500 ####[facility] [address] [place], [address] CBC W/Diff, Automatedon 05-0 -2024 Absolute Neut Normal 2.0-7.7 [facility] Comment on above: Result Comment: Canc elled via OM: Order cancelled - Patient discharged Performed By: #### L 100.0100, L500.2500 ####[facility] [address] [place], [address] HCT Normal 40-54 [facility] Comment on above: Result Comment: Canc elled via OM: Order cancelled - Patient discharged Performed By: #### L 100.0100, L500.2500 ####[facility] [address] [place], [address] HGB Normal 13.0-16.5 [facility] Comment on above: Result Comment: Canc elled via OM: Order cancelled - Patient discharged Performed By: #### L 100.0100, L500.2500 ####[facility] [address] [place], [address] MCH Normal 27.0-32.0 [facility] Comment on above: Result Comment: Canc elled via OM: Order cancelled - Patient discharged Performed By: #### L 100.0100, L500.2500 ####[facility] [address] [place], [address] MCHC Normal 32-36 [facility] Comment on above: Result Comment: Canc elled via OM: Order cancelled - Patient discharged Performed By: #### L 100.0100, L500.2500 ####[facility] [address] [place], [address] MCV Normal 80-94 [facility] Comment on above: Result Comment: Canc elled via OM: Order cancelled - Patient discharged Performed By: #### L 100.0100, L500.2500 ####[facility] [address] [place], [address] NEUT% Normal 47-70 [facility] Comment on above: Result Comment: Canc elled via OM: Order cancelled - Patient discharged Performed By: #### L 100.0100, L500.2500 ####[facility] [address] [place], [address] PLT Normal 150-450 [facility] Comment on above: Result Comment: Canc elled via OM: Order cancelled - Patient discharged Performed By: #### L 100.0100, L500.2500 ####[facility] [address] [place], [address] RBC Normal 4.6-6.2 [facility] Comment on above: Result Comment: Canc elled via OM: Order cancelled - Patient discharged Performed By: #### L 100.0100, L500.2500 ####[facility] [address] [place], [address] RDW CV Normal 11.6-14.6 [facility] Comment on above: Result Comment: Canc elled via OM: Order cancelled - Patient discharged Performed By: #### L 100.0100, L500.2500 ####[facility] [address] [place], [address] RDW SD Normal 35.1-43.9 [facility] Comment on above: Result Comment: Canc elled via OM: Order cancelled - Patient discharged Performed By: #### L 100.0100, L500.2500 ####[facility] [address] [place], [address] WBC Normal 4.4-11.0 [facility] Comment on above: Result Comment: Canc elled via OM: Order cancelled - Patient discharged Performed By: #### L 100.0100, L500.2500 ####[facility] [address] [place], [address] Basic Metabolic Profile (BMP )on 01-16-2025 BUN Normal 4-19 [facility] Comment on above: Result Comment: Canc elled via OM: Order cancelled - Patient discharged Performed By: #### L 500.2500, L100.0100 ####[facility] [address] [place], [address] BUN/CRE Normal 10-20 [facility] Comment on above: Result Comment: Canc elled via OM: Order cancelled - Patient discharged Performed By: #### L 500.2500, L100.0100 ####[facility] [address] [place], [address] Calcium Normal 7.6-11.0 [facility] Comment on above: Result Comment: Canc elled via OM: Order cancelled - Patient discharged Performed By: #### L 500.2500, L100.0100 ####[facility] [address] [place], [address] CL Normal 98-108 [facility] Comment on above: Result Comment: Canc elled via OM: Order cancelled - Patient discharged Performed By: #### L 500.2500, L100.0100 ####[facility] [address] [place], [address] CO2 Normal 21.0-32.0 [facility] Comment on above: Result Comment: Canc elled via OM: Order cancelled - Patient discharged Performed By: #### L 500.2500, L100.0100 ####[facility] [address] [place], [address] CREAT,SERUM Normal 0.70-1.20 [facility] Comment on above: Result Comment: Canc elled via OM: Order cancelled - Patient discharged Performed By: #### L 500.2500, L100.0100 ####[facility] [address] [place], [address] eGFR Normal >60 [facility] Comment on above: Result Comment: Canc elled via OM: Order cancelled - Patient discharged Performed By: #### L 500.2500, L100.0100 ####[facility] [address] [place], [address] GAP Normal 5-15 [facility] Comment on above: Result Comment: Canc elled via OM: Order cancelled - Patient discharged Performed By: #### L 500.2500, L100.0100 ####[facility] [address] [place], [address] GLU Normal 70-99 [facility] Comment on above: Result Comment: Canc elled via OM: Order cancelled - Patient discharged Performed By: #### L 500.2500, L100.0100 ####[facility] [address] [place], [address] Potassium Normal 3.3-5.1 [facility] Comment on above: Result Comment: Canc elled via OM: Order cancelled - Patient discharged Performed By: #### L 500.2500, L100.0100 ####[facility] [address] [place], [address] Basic Metabolic Profile (BMP) Normal 133-145 [facility] Comment on above: Result Comment: Canc elled via OM: Order cancelled - Patient discharged Performed By: #### L 500.2500, L100.0100 ####[facility] [address] [place], [address] CBC W/Diff, Automatedon 05-0 -2024 Absolute Neut Normal 2.0-7.7 [facility] Comment on above: Result Comment: Canc elled via OM: Order cancelled - Patient discharged Performed By: #### L 500.2500, L100.0100 ####[facility] [address] [place], [address] HCT Normal 40-54 [facility] Comment on above: Result Comment: Canc elled via OM: Order cancelled - Patient discharged Performed By: #### L 500.2500, L100.0100 ####[facility] [address] [place], [address] HGB Normal 13.0-16.5 [facility] Comment on above: Result Comment: Canc elled via OM: Order cancelled - Patient discharged Performed By: #### L 500.2500, L100.0100 ####[facility] [address] [place], [address] MCH Normal 27.0-32.0 [facility] Comment on above: Result Comment: Canc elled via OM: Order cancelled - Patient discharged Performed By: #### L 500.2500, L100.0100 ####[facility] [address] [place], [address] MCHC Normal 32-36 [facility] Comment on above: Result Comment: Canc elled via OM: Order cancelled - Patient discharged Performed By: #### L 500.2500, L100.0100 ####[facility] [address] [place], [address] MCV Normal 80-94 [facility] Comment on above: Result Comment: Canc elled via OM: Order cancelled - Patient discharged Performed By: #### L 500.2500, L100.0100 ####[facility] [address] [place], [address] NEUT% Normal 47-70 [facility] Comment on above: Result Comment: Canc elled via OM: Order cancelled - Patient discharged Performed By: #### L 500.2500, L100.0100 ####[facility] [address] [place], [address] PLT Normal 150-450 [facility] Comment on above: Result Comment: Canc elled via OM: Order cancelled - Patient discharged Performed By: #### L 500.2500, L100.0100 ####[facility] [address] [place], [address] RBC Normal 4.6-6.2 [facility] Comment on above: Result Comment: Canc elled via OM: Order cancelled - Patient discharged Performed By: #### L 500.2500, L100.0100 ####[facility] [address] [place], [address] RDW CV Normal 11.6-14.6 [facility] Comment on above: Result Comment: Canc elled via OM: Order cancelled - Patient discharged Performed By: #### L 500.2500, L100.0100 ####[facility] [address] [place], [address] RDW SD Normal 35.1-43.9 [facility] Comment on above: Result Comment: Canc elled via OM: Order cancelled - Patient discharged Performed By: #### L 500.2500, L100.0100 ####[facility] [address] [place], [address] WBC Normal 4.4-11.0 [facility] Comment on above: Result Comment: Canc elled via OM: Order cancelled - Patient discharged Performed By: #### L 500.2500, L100.0100 ####[facility] [address] [place], [address] Basic Metabolic Profile (BMP )on 01-15-2025 BUN Normal 4-19 [facility] Comment on above: Result Comment: Canc elled via OM: Order cancelled - Patient discharged Performed By: #### L 500.2500, L100.0100 ####[facility] [address] [place], [address] BUN/CRE Normal 10-20 [facility] Comment on above: Result Comment: Canc elled via OM: Order cancelled - Patient discharged Performed By: #### L 500.2500, L100.0100 ####[facility] [address] [place], [address] Calcium Normal 7.6-11.0 [facility] Comment on above: Result Comment: Canc elled via OM: Order cancelled - Patient discharged Performed By: #### L 500.2500, L100.0100 ####[facility] [address] [place], [address] CL Normal 98-108 [facility] Comment on above: Result Comment: Canc elled via OM: Order cancelled - Patient discharged Performed By: #### L 500.2500, L100.0100 ####[facility] [address] [place], [address] CO2 Normal 21.0-32.0 [facility] Comment on above: Result Comment: Canc elled via OM: Order cancelled - Patient discharged Performed By: #### L 500.2500, L100.0100 ####[facility] [address] [place], [address] CREAT,SERUM Normal 0.70-1.20 [facility] Comment on above: Result Comment: Canc elled via OM: Order cancelled - Patient discharged Performed By: #### L 500.2500, L100.0100 ####[facility] [address] [place], [address] eGFR Normal >60 [facility] Comment on above: Result Comment: Canc elled via OM: Order cancelled - Patient discharged Performed By: #### L 500.2500, L100.0100 ####[facility] [address] [place], [address] GAP Normal 5-15 [facility] Comment on above: Result Comment: Canc elled via OM: Order cancelled - Patient discharged Performed By: #### L 500.2500, L100.0100 ####[facility] [address] [place], [address] GLU Normal 70-99 [facility] Comment on above: Result Comment: Canc elled via OM: Order cancelled - Patient discharged Performed By: #### L 500.2500, L100.0100 ####[facility] [address] [place], [address] Potassium Normal 3.3-5.1 [facility] Comment on above: Result Comment: Canc elled via OM: Order cancelled - Patient discharged Performed By: #### L 500.2500, L100.0100 ####[facility] [address] [place], [address] Basic Metabolic Profile (BMP) Normal 133-145 [facility] Comment on above: Result Comment: Canc elled via OM: Order cancelled - Patient discharged Performed By: #### L 500.2500, L100.0100 ####[facility] [address] [place], [address] CBC W/Diff, Automatedon 05-0 2-2024 Absolute Neut Normal 2.0-7.7 [facility] Comment on above: Result Comment: Canc elled via OM: Order cancelled - Patient discharged Performed By: #### L 500.2500, L100.0100 ####[facility] [address] [place], [address] HCT Normal 40-54 [facility] Comment on above: Result Comment: Canc elled via OM: Order cancelled - Patient discharged Performed By: #### L 500.2500, L100.0100 ####[facility] [address] [place], [address] HGB Normal 13.0-16.5 [facility] Comment on above: Result Comment: Canc elled via OM: Order cancelled - Patient discharged Performed By: #### L 500.2500, L100.0100 ####[facility] [address] [place], [address] MCH Normal 27.0-32.0 [facility] Comment on above: Result Comment: Canc elled via OM: Order cancelled - Patient discharged Performed By: #### L 500.2500, L100.0100 ####[facility] [address] [place], [address] MCHC Normal 32-36 [facility] Comment on above: Result Comment: Canc elled via OM: Order cancelled - Patient discharged Performed By: #### L 500.2500, L100.0100 ####[facility] [address] [place], [address] MCV Normal 80-94 [facility] Comment on above: Result Comment: Canc elled via OM: Order cancelled - Patient discharged Performed By: #### L 500.2500, L100.0100 ####[facility] [address] [place], [address] NEUT% Normal 47-70 [facility] Comment on above: Result Comment: Canc elled via OM: Order cancelled - Patient discharged Performed By: #### L 500.2500, L100.0100 ####[facility] [address] [place], [address] PLT Normal 150-450 [facility] Comment on above: Result Comment: Canc elled via OM: Order cancelled - Patient discharged Performed By: #### L 500.2500, L100.0100 ####[facility] [address] [place], [address] RBC Normal 4.6-6.2 [facility] Comment on above: Result Comment: Canc elled via OM: Order cancelled - Patient discharged Performed By: #### L 500.2500, L100.0100 ####[facility] [address] [place], [address] RDW CV Normal 11.6-14.6 [facility] Comment on above: Result Comment: Canc elled via OM: Order cancelled - Patient discharged Performed By: #### L 500.2500, L100.0100 ####[facility] [address] [place], [address] RDW SD Normal 35.1-43.9 [facility] Comment on above: Result Comment: Canc elled via OM: Order cancelled - Patient discharged Performed By: #### L 500.2500, L100.0100 ####[facility] [address] [place], [address] WBC Normal 4.4-11.0 [facility] Comment on above: Result Comment: Canc elled via OM: Order cancelled - Patient discharged Performed By: #### L 500.2500, L100.0100 ####[facility] [address] [place], [address] SP/HP.SP.Hollie 01-15-2025 SP/HP.SP.EV Normal [facility] Absolute lymphocyte countOrd ered By: Renae Rubalcava on 01-14-2025 Lymphocytes Auto (Unsp spec) [#/Vol] 1.91 10*3/uL 0.83-4.51 [facility] Absolute neutrophil countOrd ered By: Renae Rubalcava on 01-14-2025 Neutrophils (Bld) [#/Vol] 2.6 10*3/uL 2.0-7.7 [facility] Anion gap in Serum or Plasma Ordered By: Renae Rubalcava on 01-14-2025 Anion gap [Moles/Vol] 10 mmol/L 5-15 [facility] Automated lymphocyte count a s percentage of total leukocytesOrdered By: Renae Rubalcava on 01-14-2025 Lymphocytes/100 WBC Auto (Unsp spec) 35.2 % [facility] BUN/creatinine ratioOrdered By: Renae Rubalcava on 01-14-2025 Urea nitrogen/Creatinine [Mass ratio] 18.3 mg/mg - [facility] Basic Metabolic Profile (BMP )on 01-14-2025 BUN/CRE 18.3 RATIO Normal - [facility] Comment on above: Performed By: #### L 100.0100, L500.2500 ####[facility] [address] [place], [address] Calcium [Mass/Vol] 9.5 mg/dL Normal 7.6-11.0 [facility] Comment on above: Performed By: #### L 100.0100, L500.2500 ####[facility] [address] [place], [address] Chloride [Moles/Vol] 106 mmol/L Normal 98-108 [facility] Comment on above: Performed By: #### L 100.0100, L500.2500 ####[facility] [address] [place], [address] CO2 [Moles/Vol] 23.5 mmol/L Normal 21.0-32.0 [facility] Comment on above: Performed By: #### L 100.0100, L500.2500 ####[facility] [address] [place], [address] Creatinine [Mass/Vol] 1.40 mg/dL High 0.70-1.20 [facility] Comment on above: Performed By: #### L 100.0100, L500.2500 ####[facility] [address] [place], [address] ECRCL 47.40 ml/min Low 50-250 [facility] Comment on above: Performed By: #### L 100.0100, L500.2500 ####[facility] [address] [place], [address] GAP 10 Normal 5-15 [facility] Comment on above: Performed By: #### L 100.0100, L500.2500 ####[facility] [address] [place], [address] GFR/1.73 sq M.predicted among non-blacks MDRD (S/P/Bld) [Vol rate/Area] 53 mL/min/{1.73_m2} Low >60 [facility] Comment on above: Result Comment: mL/m in/1.73m2 CKD-EPI Creatinine Equation (2020) Performed By: #### L 100.0100, L500.2500 ####[facility] [address] [place], [address] Glucose [Mass/Vol] 113 mg/dL High 70-99 [facility] Comment on above: Performed By: #### L 100.0100, L500.2500 ####[facility] [address] [place], [address] Potassium [Moles/Vol] 4.1 mmol/L Normal 3.3-5.1 [facility] Comment on above: Performed By: #### L 100.0100, L500.2500 ####[facility] [address] [place], [address] Sodium [Moles/Vol] 140 mmol/L Normal 133-145 [facility] Comment on above: Performed By: #### L 100.0100, L500.2500 ####[facility] [address] [place], [address] Urea nitrogen [Mass/Vol] 26 mg/dL High 4-19 [facility] Comment on above: Performed By: #### L 100.0100, L500.2500 ####[facility] [address] [place], [address] Basophil percentageOrdered B y: Renae Rubalcava on 01-14-2025 Basophils/100 WBC (Bld) 0.2 % 0-1 [facility] Bedside Glucoseon 01-14-2025 FINGERSTICK GLU 254 mg/dL High 74-106 [facility] Comment on above: Result Comment: ANGELA GEMENT OF PATIENT CARE PER NURSING PROTOCOL Performed By: #### L 501.080 ####[facility] [address] [place], [address] FINGERSTICK GLU 121 mg/dL High 74-106 [facility] Comment on above: Result Comment: ANGELA GEMENT OF PATIENT CARE PER NURSING PROTOCOL Performed By: #### L 501.080 ####[facility] [address] [place], [address] CBC W/Diff, Automatedon Absolute Lymph 1.91 X10 3/uL Normal 0.83-4.51 [facility] Comment on above: Performed By: #### L 100.0100, L500.2500 ####[facility] [address] [place], [address] Absolute Neut 2.6 X10 3/uL Normal 2.0-7.7 [facility] Comment on above: Performed By: #### L 100.0100, L500.2500 ####[facility] [address] [place], [address] Basophils/100 WBC (Bld) 0.2 % Normal 0-1 [facility] Comment on above: Performed By: #### L 100.0100, L500.2500 ####[facility] [address] [place], [address] Eosinophils/100 WBC (Bld) 3.9 % Normal 0-5 [facility] Comment on above: Performed By: #### L 100.0100, L500.2500 ####[facility] [address] [place], [address] Erythrocyte distribution width (RBC) [Ratio] 12.6 % Normal 11.6-14.6 [facility] Comment on above: Performed By: #### L 100.0100, L500.2500 ####[facility] [address] [place], [address] Hematocrit (Bld) [Volume fraction] 36.6 % Low 40-54 [facility] Comment on above: Performed By: #### L 100.0100, L500.2500 ####[facility] [address] [place], [address] Hemoglobin (Bld) [Mass/Vol] 12.7 g/dL Low 13.0-16.5 [facility] Comment on above: Performed By: #### L 100.0100, L500.2500 ####[facility] [address] [place], [address] IG% 0.200 Normal 0.0-0.9 [facility] Comment on above: Result Comment: IG% - Immature Granulocytes (promyelocytes, myelocytes andmetamyelocytes) > 1% indicates that a LEFT SHIFT is Present. Performed By: #### L 100.0100, L500.2500 ####[facility] [address] [place], [address] Lymphocytes/100 WBC (Bld) 35.2 % Normal 19-41 [facility] Comment on above: Performed By: #### L 100.0100, L500.2500 ####[facility] [address] [place], [address] MCH (RBC) [Entitic mass] 30.8 pg Normal 27.0-32.0 [facility] Comment on above: Performed By: #### L 100.0100, L500.2500 ####[facility] [address] [place], [address] MCHC (RBC) [Mass/Vol] 34.7 g/dL Normal 32-36 [facility] Comment on above: Performed By: #### L 100.0100, L500.2500 ####[facility] [address] [place], [address] MCV (RBC) [Entitic vol] 88.8 fL Normal 80-94 [facility] Comment on above: Performed By: #### L 100.0100, L500.2500 ####[facility] [address] [place], [address] Monocytes/100 WBC (Bld) 13.3 % High 0-10 [facility] Comment on above: Performed By: #### L 100.0100, L500.2500 ####[facility] [address] [place], [address] Neutrophils/100 WBC (Bld) 47.2 % Normal 47-70 [facility] Comment on above: Performed By: #### L 100.0100, L500.2500 ####[facility] [address] [place], [address] Nucleated RBC (Bld) [#/Vol] 0 10*3/uL Normal 0-5 [facility] Comment on above: Performed By: #### L 100.0100, L500.2500 ####[facility] [address] [place], [address] Platelet mean volume (Bld) [Entitic vol] 10.0 fL Normal 6.2-12.0 [facility] Comment on above: Performed By: #### L 100.0100, L500.2500 ####[facility] [address] [place], [address] Platelets (Bld) [#/Vol] 253 10*3/uL Normal 150-450 [facility] Comment on above: Performed By: #### L 100.0100, L500.2500 ####[facility] [address] [place], [address] RBC (Bld) [#/Vol] 4.12 10*6/uL Low 4.6-6.2 [facility] Comment on above: Performed By: #### L 100.0100, L500.2500 ####[facility] [address] [place], [address] RDW SD 41.3 fl Normal 35.1-43.9 [facility] Comment on above: Performed By: #### L 100.0100, L500.2500 ####[facility] [address] [place], [address] WBC (Bld) [#/Vol] 5.4 10*3/uL Normal 4.4-11.0 [facility] Comment on above: Performed By: #### L 100.0100, L500.2500 ####[facility] [address] [place], [address] Carbon dioxide, total [Moles /volume] in Central venous bloodOrdered By: Renae Rubalcava on 01-14-2025 CO2 [Moles/Vol] 23.5 mmol/L 21.0-32.0 [facility] Chloride assayOrdered By: Na paulian Rubalcava on 01-14-2025 Chloride [Moles/Vol] 106 mmol/L 98-108 [facility] Discharge Instructionon 05-0 Discharge Instruction Normal [facility] Eosinophil percentageOrdered By: Renae Rubalcava on 01-14-2025 Eosinophils/100 WBC (Bld) 3.9 % 0-5 [facility] Erythrocyte distribution wid th ratioOrdered By: Renae Rubalcava on 01-14-2025 Erythrocyte distribution width (RBC) [Ratio] 12.6 % 11.6-14.6 [facility] Erythrocyte distribution wid th standard deviationOrdered By: Renae Rubalcava on 01-14-2025 Erythrocyte distribution width (RBC) [Ratio] 41.3 fl 35.1-43.9 [facility] Glomerular filtration rate ( GFR) estimation/1.73 sq m using serum, plasma, or whole bOrdered By: Renae Rubalcava on 01-14-2025 GFR/1.73 sq M.predicted among non-blacks MDRD (S/P/Bld) [Vol rate/Area] 53 mL/min/{1.73_m2} Low >60 [facility] Comment on above: mL/min/1.73m2 CKD-EP I Creatinine Equation (2020) Glucose measurement at bedsi deOrdered By: Renae Rubalcava on 01-14-2025 Glucose [Mass/Vol] 254 mg/dL High 74-106 [facility] Comment on above: MANAGEMENT OF PATIEN T CARE PER NURSING PROTOCOL Hematocrit Auto (Bld) [Volum e fraction]Ordered By: Renae Rubalcava on 01-14-2025 Hematocrit (Bld) [Volume fraction] 36.6 % Low 40-54 [facility] Hemoglobin measurementOrdere d By: Renae Rubalcava on 01-14-2025 Hemoglobin (Bld) [Mass/Vol] 12.7 g/dL Low 13.0-16.5 [facility] Immature granulocytes/100 WB C Auto (Bld)Ordered By: Renae Rubalcava on 01-14-2025 Immature granulocytes/100 WBC (Bld) 0.200 % 0.0-0.9 [facility] Comment on above: IG% - Immature Granu locytes (promyelocytes, myelocytes and metamyelocytes) > 1% indicates that a LEFT SHIFT is Present. MCV (mean corpuscular volume ) determinationOrdered By: Renae Rubalcava on 01-14-2025 MCV (RBC) [Entitic vol] 88.8 fL 80-94 [facility] Mean corpuscular hemoglobin (MCH) determinationOrdered By: Renae Rubalcava 01-14-2025 MCH (RBC) [Entitic mass] 30.8 pg 27.0-32.0 [facility] Mean corpuscular hemoglobin concentration (MCHC) determinationOrdered By: Renae Rubalcava on 01-14-2025 MCHC (RBC) [Mass/Vol] 34.7 g/dL 32-36 [facility] Mean platelet volume determi nationOrdered By: Renae Rubalcava on 01-14-2025 Platelet mean volume (Bld) [Entitic vol] 10.0 fL 6.2-12.0 [facility] Monocyte percentageOrdered B y: Renae Rubalcava on 01-14-2025 Monocytes/100 WBC (Bld) 13.3 % High 0-10 [facility] Neutrophil percentageOrdered By: Renae Rubalcava on 01-14-2025 Neutrophils/100 WBC (Bld) 47.2 % 47-70 [facility] Nucleated red blood cell per centageOrdered By: Renae Rubalcava on 01-14-2025 Nucleated RBC/100 WBC (Bld) [Ratio] 0 % 0-5 [facility] Platelet countOrdered By: Na paulina Rubalcava on 01-14-2025 Platelets (Bld) [#/Vol] 253 10*3/uL 150-450 [facility] Potassium measurement (mass/ volume)Ordered By: Renae Rubalcava on 01-14-2025 Potassium (Unsp spec) [Mass/Vol] 4.1 mmol/L 3.3-5.1 [facility] RBC Auto (Bld) [#/Vol]Ordere d By: Renae Rubalcava on 01-14-2025 RBC (Bld) [#/Vol] 4.12 10*6/uL Low 4.6-6.2 [facility] Serum creatinine measurement (mass/volume)Ordered By: Renae Rubalcava on 01-14-2025 Creatinine [Mass/Vol] 1.40 mg/dL High 0.70-1.20 [facility] Serum glucose measurement (m ass/volume)Ordered By: Renae Rubalcava on 01-14-2025 Glucose [Mass/Vol] 113 mg/dL High 70-99 [facility] Serum or plasma calcium makeda urement (mass/volume)Ordered By: Renae Rubalcava on 01-14-2025 Calcium [Mass/Vol] 9.5 mg/dL 7.6-11.0 [facility] Serum or plasma urea nitroge n measurement (mass/volume)Ordered By: Renae Rubalcava on 01-14-2025 Urea nitrogen [Mass/Vol] 26 mg/dL High 4-19 [facility] Sodium levelOrdered By: Renae Rubalcava on 05-01-2025 Sodium [Moles/Vol] 140 mmol/L 133-145 [facility] White blood cell (WBC) count Ordered By: Renaenydia Rubalcava on 01-14-2025 WBC (Bld) [#/Vol] 5.4 10*3/uL 4.4-11.0 [facility] Basic Metabolic Profile (BMP )on 01-13-2025 BUN/CRE 19.0 RATIO Normal 10-20 [facility] Comment on above: Order Comment: Comme nts: NPO at SC prior to lipid panel Performed By: #### L 500.2500, L500.4100, L100.0100 ####[facility] [address] [place], [address] Calcium [Mass/Vol] 10.1 mg/dL Normal 7.6-11.0 [facility] Comment on above: Order Comment: Comme nts: NPO at SC prior to lipid panel Performed By: #### L 500.2500, L500.4100, L100.0100 ####[facility] [address] [place], [address] Chloride [Moles/Vol] 102 mmol/L Normal 98-108 [facility] Comment on above: Order Comment: Comme nts: NPO at SC prior to lipid panel Performed By: #### L 500.2500, L500.4100, L100.0100 ####[facility] [address] [place], [address] CO2 [Moles/Vol] 24.3 mmol/L Normal 21.0-32.0 [facility] Comment on above: Order Comment: Comme nts: NPO at SC prior to lipid panel Performed By: #### L 500.2500, L500.4100, L100.0100 ####[facility] [address] [place], [address] Creatinine [Mass/Vol] 1.64 mg/dL High 0.70-1.20 [facility] Comment on above: Order Comment: Comme nts: NPO at [place] prior to lipid panel Performed By: #### L 500.2500, L500.4100, L100.0100 ####[facility] [address] [place], [address] ECRCL 40.47 ml/min Low 50-250 [facility] Comment on above: Order Comment: Comme nts: NPO at [place] prior to lipid panel Performed By: #### L 500.2500, L500.4100, L100.0100 ####[facility] [address] [place], [address] GAP 13 Normal 5-15 [facility] Comment on above: Order Comment: Comme nts: NPO at SC prior to lipid panel Performed By: #### L 500.2500, L500.4100, L100.0100 ####[facility] [address] [place], [address] GFR/1.73 sq M.predicted among non-blacks MDRD (S/P/Bld) [Vol rate/Area] 44 mL/min/{1.73_m2} Low >60 [facility] Comment on above: Order Comment: Comme nts: NPO at MN prior to lipid panel Result Comment: mL/m in/1.73m2 CKD-EPI Creatinine Equation (2020) Performed By: #### L 500.2500, L500.4100, L100.0100 ####[facility] [address] [place], [address] Glucose [Mass/Vol] 151 mg/dL High 70-99 [facility] Comment on above: Order Comment: Comme nts: NPO at MN prior to lipid panel Performed By: #### L 500.2500, L500.4100, L100.0100 ####[facility] [address] [place], [address] Potassium [Moles/Vol] 4.3 mmol/L Normal 3.3-5.1 [facility] Comment on above: Order Comment: Comme nts: NPO at MN prior to lipid panel Result Comment: Hemo lysis present, Results??could be affected.?? Performed By: #### L 500.2500, L500.4100, L100.0100 ####[facility] [address] [place], [address] Sodium [Moles/Vol] 139 mmol/L Normal 133-145 [facility] Comment on above: Order Comment: Comme nts: NPO at [place] prior to lipid panel Performed By: #### L 500.2500, L500.4100, L100.0100 ####[facility] [address] [place], [address] Urea nitrogen [Mass/Vol] 31 mg/dL High 4-19 [facility] Comment on above: Order Comment: Comme nts: NPO at [place] prior to lipid panel Performed By: #### L 500.2500, L500.4100, L100.0100 ####[facility] [address] [place], [address] Bedside Glucoseon 01-13-2025 FINGERSTICK GLU 227 mg/dL High 74-106 [facility] Comment on above: Result Comment: ANGELA GEMENT OF PATIENT CARE PER NURSING PROTOCOL Performed By: #### L 501.080 ####[facility] [address] [place], [address] FINGERSTICK GLU 385 mg/dL High 74-106 [facility] Comment on above: Result Comment: ANGELA GEMENT OF PATIENT CARE PER NURSING PROTOCOL Performed By: #### L 501.080 ####[facility] [address] [place], [address] FINGERSTICK GLU 285 mg/dL High 74-106 [facility] Comment on above: Result Comment: ANGELA GEMENT OF PATIENT CARE PER NURSING PROTOCOL Performed By: #### L 501.080 ####[facility] [address] [place], [address] FINGERSTICK GLU 152 mg/dL High 74-106 [facility] Comment on above: Result Comment: ANGELA GEMENT OF PATIENT CARE PER NURSING PROTOCOL Performed By: #### L 501.080 ####[facility] [address] [place], [address] FINGERSTICK GLU 240 mg/dL High 74-106 [facility] Comment on above: Result Comment: ANGELA GEMENT OF PATIENT CARE PER NURSING PROTOCOL Performed By: #### L 501.080 ####[facility] [address] [place], [address] CBC W/Diff, Automatedon 04-3 0-2024 Absolute Lymph 1.65 X10 3/uL Normal 0.83-4.51 [facility] Comment on above: Performed By: #### L 500.2500, L500.4100, L100.0100 ####[facility] [address] [place], [address] Absolute Neut 2.3 X10 3/uL Normal 2.0-7.7 [facility] Comment on above: Performed By: #### L 500.2500, L500.4100, L100.0100 ####[facility] [address] [place], [address] Basophils/100 WBC (Bld) 0.4 % Normal 0-1 [facility] Comment on above: Performed By: #### L 500.2500, L500.4100, L100.0100 ####[facility] [address] [place], [address] Eosinophils/100 WBC (Bld) 4.6 % Normal 0-5 [facility] Comment on above: Performed By: #### L 500.2500, L500.4100, L100.0100 ####[facility] [address] [place], [address] Erythrocyte distribution width (RBC) [Ratio] 12.6 % Normal 11.6-14.6 [facility] Comment on above: Performed By: #### L 500.2500, L500.4100, L100.0100 ####[facility] [address] [place], [address] Hematocrit (Bld) [Volume fraction] 38.1 % Low 40-54 [facility] Comment on above: Performed By: #### L 500.2500, L500.4100, L100.0100 ####[facility] [address] [place], [address] Hemoglobin (Bld) [Mass/Vol] 13.2 g/dL Normal 13.0-16.5 [facility] Comment on above: Performed By: #### L 500.2500, L500.4100, L100.0100 ####[facility] [address] [place], [address] IG% 0.200 Normal 0.0-0.9 [facility] Comment on above: Result Comment: IG% - Immature Granulocytes (promyelocytes, myelocytes andmetamyelocytes) > 1% indicates that a LEFT SHIFT is Present. Performed By: #### L 500.2500, L500.4100, L100.0100 ####[facility] [address] [place], [address] Lymphocytes/100 WBC (Bld) 34.4 % Normal 19-41 [facility] Comment on above: Performed By: #### L 500.2500, L500.4100, L100.0100 ####[facility] [address] [place], [address] MCH (RBC) [Entitic mass] 30.8 pg Normal 27.0-32.0 [facility] Comment on above: Performed By: #### L 500.2500, L500.4100, L100.0100 ####[facility] [address] [place], [address] MCHC (RBC) [Mass/Vol] 34.6 g/dL Normal 32-36 [facility] Comment on above: Performed By: #### L 500.2500, L500.4100, L100.0100 ####[facility] [address] [place], [address] MCV (RBC) [Entitic vol] 89.0 fL Normal 80-94 [facility] Comment on above: Performed By: #### L 500.2500, L500.4100, L100.0100 ####[facility] [address] [place], [address] Monocytes/100 WBC (Bld) 11.7 % High 0-10 [facility] Comment on above: Performed By: #### L 500.2500, L500.4100, L100.0100 ####[facility] [address] [place], [address] Neutrophils/100 WBC (Bld) 48.7 % Normal 47-70 [facility] Comment on above: Performed By: #### L 500.2500, L500.4100, L100.0100 ####[facility] [address] [place], [address] Nucleated RBC (Bld) [#/Vol] 0 10*3/uL Normal 0-5 [facility] Comment on above: Performed By: #### L 500.2500, L500.4100, L100.0100 ####[facility] [address] [place], [address] Platelet mean volume (Bld) [Entitic vol] 10.0 fL Normal 6.2-12.0 [facility] Comment on above: Performed By: #### L 500.2500, L500.4100, L100.0100 ####[facility] [address] [place], [address] Platelets (Bld) [#/Vol] 270 10*3/uL Normal 150-450 [facility] Comment on above: Performed By: #### L 500.2500, L500.4100, L100.0100 ####[facility] [address] [place], [address] RBC (Bld) [#/Vol] 4.28 10*6/uL Low 4.6-6.2 [facility] Comment on above: Performed By: #### L 500.2500, L500.4100, L100.0100 ####[facility] [address] [place], [address] RDW SD 41.0 fl Normal 35.1-43.9 [facility] Comment on above: Performed By: #### L 500.2500, L500.4100, L100.0100 ####[facility] [address] [place], [address] WBC (Bld) [#/Vol] 4.8 10*3/uL Normal 4.4-11.0 [facility] Comment on above: Performed By: #### L 500.2500, L500.4100, L100.0100 ####[facility] [address] [place], [address] Calculated very low density lipoprotein (VLDL) cholesterol measurementOrdered By: Bhupinder Kenney on 01-13-2025 Calculated very low density lipoprotein (VLDL) cholesterol measurement 50 mg/dL High 5-40 [facility] Carotid Duplex Ultrasoundon 01-13-2025 Carotid Duplex Ultrasound Normal [facility] LDL calc ser/plasOrdered By: Bhupinder Kenney on 01-13-2025 Cholesterol in LDL [Mass/Vol] 80 mg/dL [facility] Comment on above: Pecudoimrm=251-103 m g/dL & Higher Cizs=882 mg/dL or greater Lipid Profileon 01-13-2025 CHOL:HDL 4.66 Normal [facility] Comment on above: Order Comment: Comme nts: NPO at SC prior to lipid panel Performed By: #### L 500.2500, L500.4100, L100.0100 ####[facility] [address] [place], [address] Cholesterol [Mass/Vol] 165 mg/dL Normal <=200 [facility] Comment on above: Order Comment: Comme nts: NPO at [place] prior to lipid panel Result Comment: Chol esterol level, Desirable <200 mg/dLBorderline high cholesterol 200-239 mg/dLHigh cholesterol >=240 mg/dLRecommendations of the NCEP Adult Treatment Panel for thefollowing risk-cutoff thresholds for the [place] Americanpulation. Performed By: #### L 500.2500, L500.4100, L100.0100 ####[facility] [address] [place], [address] Cholesterol in HDL [Mass/Vol] 35 mg/dL Low [facility] Comment on above: Order Comment: Comme nts: NPO at SC prior to lipid panel Result Comment: Elinor onal Cholesterol Education Program (NCEP) guidelines:<40 mg/dL: Low HDL-cholesterol (major risk factor for CHD)>= 60 mg/dL: High HDL-cholesterol (negative risk factor forCHD)HDL-cholesterol is affected by a number of factors, e.g.smoking, exercise, hormones, sex and age. Performed By: #### L 500.2500, L500.4100, L100.0100 ####[facility] [address] [place], [address] Cholesterol in LDL [Mass/Vol] 80 mg/dL Normal [facility] Comment on above: Order Comment: Comme nts: NPO at SC prior to lipid panel Result Comment: Bord nyykhs=689-678 mg/dL Higher Vfqj=558 mg/dL or greater Performed By: #### L 500.2500, L500.4100, L100.0100 ####[facility] [address] [place], [address] Cholesterol in VLDL [Mass/Vol] 50 mg/dL High 5-40 [facility] Comment on above: Order Comment: Comme nts: NPO at [place] prior to lipid panel Performed By: #### L 500.2500, L500.4100, L100.0100 ####[facility] [address] [place], [address] Triglyceride [Mass/Vol] 250 mg/dL High [facility] Comment on above: Order Comment: Comme nts: NPO at SC prior to lipid panel Result Comment: The drugs N-Acetylcysteine and Metamizole may falselydepress this assay.Normal range: <150 mg/dLBorderline High: 150-199 mg/dLHigh: 200-499 mg/dLVery High: >500 mg/dL Performed By: #### L 500.2500, L500.4100, L100.0100 ####[facility] [address] [place], [place], [address] Screening total cholesterol/ high density lipoprotein (HDL) cholesterol ratioOrdered By: Bhupinder Kenney on 01-13-2025 Cholesterol.total/Chol esterol in HDL [Mass ratio] 4.66 {ratio} [facility] Serum or plasma cholesterol in HDL measurement (mass/volume)Ordered By: Bhupinder Kenney on 01-13-2025 Cholesterol in HDL [Mass/Vol] 35 mg/dL Low >40 [facility] Comment on above: National Cholesterol Education Program (NCEP) guidelines:<40 mg/dL: Low HDL-cholesterol (major risk factor for CHD)>= 60 mg/dL: High HDL-cholesterol (negative risk factor for CHD)HDL-cholesterol is affected by a number of factors, e.g. smoking, exercise, hormones, sex and age. Serum or plasma cholesterol measurement (mass/volume)Ordered By: Bhupinder Kenney on 01-13-2025 Cholesterol [Mass/Vol] 165 mg/dL <201 [facility] Comment on above: Cholesterol level, D esirable <200 mg/dLBorderline high cholesterol 200-239 mg/dLHigh cholesterol >=240 mg/dLRecommendations of the NCEP Adult Treatment Panel for the following risk-cutoff thresholds for the [place] population. Triglycerides measurementOrd ered By: Bhupinder Kenney on 01-13-2025 Triglyceride [Mass/Vol] 250 mg/dL High <199 [facility] Comment on above: The drugs N-Acetylcy steine and Metamizole may falsely depress this assay. Normal range: <150 mg/dLBorderline High: 150-199 mg/dLHigh: 200-499 mg/dLVery High: >500 mg/dL 12 Lead EKGon 01-12-2025 12 Lead EKG Normal [facility] Activated partial thrombopla stin time (aPTT) in platelet poor plasma by coagulation aOrdered By: Diogenes Villalpando on 01-12-2025 aPTT Coag (PPP) [Time] 22.3 s Low 24.1-36.2 [facility] Basic Metabolic Profile (BMP )on 01-12-2025 BUN/CRE 18.9 RATIO Normal 10-20 [facility] Comment on above: Performed By: #### L 100.0100, L501.4021, L300.4310, L300.3900, L500.2500 ####[facility] [address] [place], [address] Calcium [Mass/Vol] 10.5 mg/dL Normal 7.6-11.0 [facility] Comment on above: Performed By: #### L 100.0100, L501.4021, L300.4310, L300.3900, L500.2500 ####[facility] [address] [place], [address] Chloride [Moles/Vol] 101 mmol/L Normal 98-108 [facility] Comment on above: Performed By: #### L 100.0100, L501.4021, L300.4310, L300.3900, L500.2500 ####[facility] [address] [place], [address] CO2 [Moles/Vol] 21.0 mmol/L Normal 21.0-32.0 [facility] Comment on above: Performed By: #### L 100.0100, L501.4021, L300.4310, L300.3900, L500.2500 ####[facility] [address] [place], [address] Creatinine [Mass/Vol] 2.12 mg/dL High 0.70-1.20 [facility] Comment on above: Performed By: #### L 100.0100, L501.4021, L300.4310, L300.3900, L500.2500 ####[facility] [address] [place], [address] ECRCL 30.79 ml/min Low 50-250 [facility] Comment on above: Performed By: #### L 100.0100, L501.4021, L300.4310, L300.3900, L500.2500 ####[facility] [address] [place], [address] GAP 15 Normal 5-15 [facility] Comment on above: Performed By: #### L 100.0100, L501.4021, L300.4310, L300.3900, L500.2500 ####[facility] [address] [place], [address] GFR/1.73 sq M.predicted among non-blacks MDRD (S/P/Bld) [Vol rate/Area] 32 mL/min/{1.73_m2} Low >60 [facility] Comment on above: Result Comment: mL/m in/1.73m2 CKD-EPI Creatinine Equation (2020) Performed By: #### L 100.0100, L501.4021, L300.4310, L300.3900, L500.2500 ####[facility] [address] [place], [address] Glucose [Mass/Vol] 238 mg/dL High 70-99 [facility] Comment on above: Performed By: #### L 100.0100, L501.4021, L300.4310, L300.3900, L500.2500 ####[facility] [address] [place], [address] Potassium [Moles/Vol] 4.9 mmol/L Normal 3.3-5.1 [facility] Comment on above: Performed By: #### L 100.0100, L501.4021, L300.4310, L300.3900, L500.2500 ####[facility] [address] [place], [address] Sodium [Moles/Vol] 137 mmol/L Normal 133-145 [facility] Comment on above: Performed By: #### L 100.0100, L501.4021, L300.4310, L300.3900, L500.2500 ####[facility] [address] [place], [address] Urea nitrogen [Mass/Vol] 40 mg/dL High 4-19 [facility] Comment on above: Performed By: #### L 100.0100, L501.4021, L300.4310, L300.3900, L500.2500 ####[facility] [address] [place], [address] Bedside Glucoseon 01-12-2025 FINGERSTICK GLU 212 mg/dL High 74-106 [facility] Comment on above: Result Comment: ANGELA VALDERRAMA OF PATIENT CARE PER NURSING PROTOCOL Performed By: #### L 501.080 ####[facility] [address] [place], [address] Bilirubin Test strip Ql (U)O rdered By: Diogenes Villalpando on 01-12-2025 Bilirubin Ql (U) Negative Negative [facility] Brain without Contraston Brain without Contrast Normal [facility] CBC W/Diff, Automatedon - Absolute Lymph 1.91 X10 3/uL Normal 0.83-4.51 [facility] Comment on above: Performed By: #### L 100.0100, L501.4021, L300.4310, L300.3900, L500.2500 ####[facility] [address] [place], [address] Absolute Neut 3.1 X10 3/uL Normal 2.0-7.7 [facility] Comment on above: Performed By: #### L 100.0100, L501.4021, L300.4310, L300.3900, L500.2500 ####[facility] [address] [place], [address] Basophils/100 WBC (Bld) 0.5 % Normal 0-1 [facility] Comment on above: Performed By: #### L 100.0100, L501.4021, L300.4310, L300.3900, L500.2500 ####[facility] [address] [place], [address] Eosinophils/100 WBC (Bld) 3.6 % Normal 0-5 [facility] Comment on above: Performed By: #### L 100.0100, L501.4021, L300.4310, L300.3900, L500.2500 ####[facility] [address] [place], [address] Erythrocyte distribution width (RBC) [Ratio] 12.7 % Normal 11.6-14.6 [facility] Comment on above: Performed By: #### L 100.0100, L501.4021, L300.4310, L300.3900, L500.2500 ####[facility] [address] [place], [address] Hematocrit (Bld) [Volume fraction] 36.3 % Low 40-54 [facility] Comment on above: Performed By: #### L 100.0100, L501.4021, L300.4310, L300.3900, L500.2500 ####[facility] [address] [place], [address] Hemoglobin (Bld) [Mass/Vol] 12.7 g/dL Low 13.0-16.5 [facility] Comment on above: Performed By: #### L 100.0100, L501.4021, L300.4310, L300.3900, L500.2500 ####[facility] [address] [place], [address] IG% 0.300 Normal 0.0-0.9 [facility] Comment on above: Result Comment: IG% - Immature Granulocytes (promyelocytes, myelocytes andmetamyelocytes) > 1% indicates that a LEFT SHIFT is Present. Performed By: #### L 100.0100, L501.4021, L300.4310, L300.3900, L500.2500 ####[facility] [address] [place], [address] Lymphocytes/100 WBC (Bld) 32.3 % Normal 19-41 [facility] Comment on above: Performed By: #### L 100.0100, L501.4021, L300.4310, L300.3900, L500.2500 ####[facility] [address] [place], [address] MCH (RBC) [Entitic mass] 31.0 pg Normal 27.0-32.0 [facility] Comment on above: Performed By: #### L 100.0100, L501.4021, L300.4310, L300.3900, L500.2500 ####[facility] [address] [place], [address] MCHC (RBC) [Mass/Vol] 35.0 g/dL Normal 32-36 [facility] Comment on above: Performed By: #### L 100.0100, L501.4021, L300.4310, L300.3900, L500.2500 ####[facility] [address] [place], [address] MCV (RBC) [Entitic vol] 88.5 fL Normal 80-94 [facility] Comment on above: Performed By: #### L 100.0100, L501.4021, L300.4310, L300.3900, L500.2500 ####[facility] [address] [place], [address] Monocytes/100 WBC (Bld) 11.7 % High 0-10 [facility] Comment on above: Performed By: #### L 100.0100, L501.4021, L300.4310, L300.3900, L500.2500 ####[facility] [address] [place], [address] Neutrophils/100 WBC (Bld) 51.6 % Normal 47-70 [facility] Comment on above: Performed By: #### L 100.0100, L501.4021, L300.4310, L300.3900, L500.2500 ####[facility] [address] [place], [address] Nucleated RBC (Bld) [#/Vol] 0 10*3/uL Normal 0-5 [facility] Comment on above: Performed By: #### L 100.0100, L501.4021, L300.4310, L300.3900, L500.2500 ####[facility] [address] [place], [address] Platelet mean volume (Bld) [Entitic vol] 10.0 fL Normal 6.2-12.0 [facility] Comment on above: Performed By: #### L 100.0100, L501.4021, L300.4310, L300.3900, L500.2500 ####[facility] [address] [place], [address] Platelets (Bld) [#/Vol] 270 10*3/uL Normal 150-450 [facility] Comment on above: Performed By: #### L 100.0100, L501.4021, L300.4310, L300.3900, L500.2500 ####[facility] [address] [place], [address] RBC (Bld) [#/Vol] 4.10 10*6/uL Low 4.6-6.2 [facility] Comment on above: Performed By: #### L 100.0100, L501.4021, L300.4310, L300.3900, L500.2500 ####[facility] [address] [place], [address] RDW SD 41.2 fl Normal 35.1-43.9 [facility] Comment on above: Performed By: #### L 100.0100, L501.4021, L300.4310, L300.3900, L500.2500 ####[facility] [address] [place], [address] WBC (Bld) [#/Vol] 5.9 10*3/uL Normal 4.4-11.0 [facility] Comment on above: Performed By: #### L 100.0100, L501.4021, L300.4310, L300.3900, L500.2500 ####[facility] [address] [place], [address] Calcium oxalate crystals det ection in urine sediment by light microscopyOrdered By: Diogenes Villalpando on 01-12-2025 Calcium oxalate crystals LM Ql (Urine sed) 1+ /hpf [facility] Echo Complete W/ Contraston 01-12-2025 Echo Complete W/ Contrast Normal [facility] Emergency Department Summary on 01-12-2025 Emergency Department Summary Normal [facility] H AND P Exam - Hospitaliston 01-12-2025 H&P Exam - Hospitalist Normal [facility] Hyaline casts LM.LPF (Urine sed) [#/Area]Ordered By: Diogenes Villalpando on 04-29-2025 Hyaline casts (Urine sed) [#/Area] 0 /[LPF] 0-5 [facility] International normalized rat io (INR) calculationOrdered By: Diogenes Villalpando on 01-12-2025 INR Coag (Bld) [Relative time] 0.9 {INR} [facility] Ketones Test strip Ql (U)Ord ered By: Diogenes Villalpando on 01-12-2025 Ketones Ql (U) Negative Negative [facility] L499.0042on 01-12-2025 Trop T High Sen 38 ng/L High <=22 [facility] Comment on above: Performed By: #### L 499.0042 ####[facility] [address] [place], [address] L499.0043on 01-12-2025 Trop T High Sen 36 ng/L High <=22 [facility] Comment on above: Performed By: #### L 499.0043 ####[facility] [address] [place], [address] L501.4021on 01-12-2025 Trop T High Sen 42 ng/L High <=22 [facility] Comment on above: Performed By: #### L 100.0100, L501.4021, L300.4310, L300.3900, L500.2500 ####[facility] [address] [place], [address] Microscopic analysis of urin e for red blood cells (RBC)Ordered By: Diogenes Villalpando on 01-12-2025 Microscopic analysis of urine for red blood cells (RBC) 0-5 SEEN /hpf 0-5 [facility] Mucus LM Ql (Urine sed)Order ed By: Diogenes Villalpando on 01-12-2025 Mucus Ql (Urine sed) 0 SEEN /hpf [facility] Nitrite Test strip Ql (U)Ord ered By: Diogenes Villalpando on 01-12-2025 Nitrite Ql (U) Negative Negative [facility] Partial Thromboplast Timeon 01-12-2025 aPTT Coag (Bld) [Time] 22.3 s Low 24.1-36.2 [facility] Comment on above: Performed By: #### L 100.0100, L501.4021, L300.4310, L300.3900, L500.2500 ####[facility] [address] [place], [address] Protein Test strip Ql (U)Ord ered By: Diogenes Villalpando on 01-12-2025 Protein Ql (U) 30 mg/dl High Negative [facility] Prothrombin Time w/INRon INR Coag (PPP) [Relative time] 0.9 {INR} Normal [facility] Comment on above: Performed By: #### L 100.0100, L501.4021, L300.4310, L300.3900, L500.2500 ####[facility] [address] [place], [address] PT Coag (PPP) [Time] 12.5 s Normal 11.7-14.9 [facility] Comment on above: Performed By: #### L 100.0100, L501.4021, L300.4310, L300.3900, L500.2500 ####[facility] [address] [place], [address] Prothrombin timeOrdered By: Diogenes Villalpando on 01-12-2025 PT Coag (PPP) [Time] 12.5 s 11.7-14.9 [facility] STROKE Brain/Head without Co nton 01-12-2025 STROKE Brain/Head without Cont Normal [facility] STROKE CTA Head AND Neck W/C onon 01-12-2025 STROKE CTA Head AND Neck W/Con Normal [facility] Squamous epithelial cells de tection in urine sediment by light microscopyOrdered By: Diogenes Villalpando on 01-12-2025 Epithelial cells.squamous LM Ql (Urine sed) 0-5 SEEN /hpf 0-5 [facility] Troponin T.cardiac [Mass/vol ume] in Serum or Plasma by High sensitivity methodOrdered By: Diogenes Villalpando on 01-12-2025 Troponin T.cardiac High sensitivity method [Mass/Vol] 36 ng/L High <22 [facility] Troponin T.cardiac High sensitivity method [Mass/Vol] 38 ng/L High <22 [facility] Troponin T.cardiac High sensitivity method [Mass/Vol] 42 ng/L High <22 [facility] Urinalysis, Completeon 01-12 CA OX CRYSTAL 1+ /hpf Normal [facility] Comment on above: Order Comment: CLEAN CATCH Performed By: #### L 400.0001 ####[facility] [address] [place], [address] RBC 0-5 SEEN Normal 0-5 [facility] Comment on above: Order Comment: CLEAN CATCH Performed By: #### L 400.0001 ####[facility] [address] [place], [address] CAST,HYALINE 0-5 SEEN Normal 0-5 [facility] Comment on above: Order Comment: CLEAN CATCH Performed By: #### L 400.0001 ####[facility] [address] [place], [address] EPI,SQUAMOUS 0-5 SEEN Normal 0-5 [facility] Comment on above: Order Comment: CLEAN CATCH Performed By: #### L 400.0001 ####[facility] [address] [place], [address] WBC 0-5 SEEN Normal 0-5 [facility] Comment on above: Order Comment: CLEAN CATCH Performed By: #### L 400.0001 ####[facility] [address] [place], [address] BACTERIA 0 SEEN Normal None Seen [facility] Comment on above: Order Comment: CLEAN CATCH Performed By: #### L 400.0001 ####[facility] [address] [place], [address] Mucus Ql (Urine sed) 0 SEEN Normal [facility] Comment on above: Order Comment: CLEAN CATCH Performed By: #### L 400.0001 ####[facility] [address] [place], [place], [id number] Urine clarityOrdered By: Simeon Villalpando on 01-12-2025 Clarity (U) Clear Clear [facility] Urine color determinationOrd ered By: Diogenes Villalpando on 01-12-2025 Color (U) Yellow Yellow [facility] Urine glucose detectionOrder ed By: Doigenes Villalpando on 01-12-2025 Glucose Ql (U) 1000 mg/dl High Normal [facility] Urine leukocyte esterase det ection by dipstickOrdered By: Diogenes Villalpando on 01-12-2025 Leukocyte esterase Test strip Ql (U) Negative Negative [facility] Urine pHOrdered By: Diogenes Villalpando on 01-12-2025 pH (U) 6.0 [pH] 5.0 - 8.0 [facility] Urine sediment bacteria coun t by microscopy (number/high power field)Ordered By: Diogenes Villalpando on 01-12-2025 Bacteria LM.HPF (Urine sed) [#/Area] 0 /[HPF] None Seen [facility] Urine specific gravity measu rementOrdered By: Diogenes Villalpando on 01-12-2025 Specific gravity (U) [Rel density] 1.015 1.002-1.030 [facility] Urine urobilinogen measureme ntOrdered By: Diogenes Villalpando on 01-12-2025 Urobilinogen Ql (U) Normal mg/dl Normal [facility] White blood cell countOrdere d By: Diogenes Villalpando on 01-12-2025 White blood cell count 0-5 SEEN /hpf 0-5 [facility] Post Void Residual Bladderon 12-31-2024 Post Void Residual Bladder Normal [facility] Urine Cultureon 12-31-2024 URC Culture exhibits no growth. Normal [facility] Comment on above: Performed By: #### M 100.2200, L400.0001, L500.2500 ####[facility] [address] [facility] [place], [place], [id number] Anion gap in Serum or Plasma Ordered By: Briseyda Sinclair on 12-30-2024 Anion gap [Moles/Vol] 11 mmol/L 5-15 [facility] BUN/creatinine ratioOrdered By: Briseyda Sinclair on 12-30-2024 Urea nitrogen/Creatinine [Mass ratio] 17.3 mg/mg 10- [facility] Basic Metabolic Profile (BMP )on 12-30-2024 BUN/CRE 17.3 RATIO Normal - [facility] Comment on above: Performed By: #### M 100.2200, L400.0001, L500.2500 ####[facility] [address] [place], [address] GAP 11 Normal 5-15 [facility] Comment on above: Performed By: #### M 100.2200, L400.0001, L500.2500 ####[facility] [address] [place], [address] Bilirubin Test strip Ql (U)O rdered By: Briseyda Sinclair on 12-30-2024 Bilirubin Ql (U) Negative Negative [facility] Carbon dioxide, total [Moles /volume] in Central venous bloodOrdered By: Briseyda Sinclair on 12-30-2024 CO2 [Moles/Vol] 25.5 mmol/L Normal 21.0-32.0 [facility] Comment on above: Performed By: #### M 100.2200, L400.0001, L500.2500 ####[facility] [address] [place], [address] Chloride assayOrdered By: Marcie Sinclair on 12-30-2024 Chloride [Moles/Vol] 106 mmol/L Normal 98-108 [facility] Comment on above: Performed By: #### M 100.2200, L400.0001, L500.2500 ####[facility] [address] [place], [address] Epithelial cells.squamous LM Ql (Urine sed)Ordered By: Briseyda Sinclair on 12-30-2024 Epithelial cells.squamous LM.HPF (Urine sed) [#/Area] 0 /[HPF] 0-5 [facility] GFR/1.73 sq M.predicted anjelica g non-blacks MDRD (S/P/Bld) [Vol rate/Area]Ordered By: Briseyda Sinclair on 12-30-2024 Estimated GFR (MDRD) Non-Af Amer 57 Low >60 [facility] Comment on above: mL/min/1.73m2 CKD-EP I Creatinine Equation (2020) Glomerular filtration rate ( GFR) estimation/1.73 sq m using serum, plasma, or whole bOrdered By: Briseyda Sinclair on 12-30-2024 GFR/1.73 sq M.predicted among non-blacks MDRD (S/P/Bld) [Vol rate/Area] 57 mL/min/{1.73_m2} Low >60 [facility] Comment on above: mL/min/1.73m2 CKD-EP I Creatinine Equation (2020) Result Comment: mL/m in/1.73m2 CKD-EPI Creatinine Equation (2020) Performed By: #### M 100.2200, L400.0001, L500.2500 ####[facility] [address] [place], [address] Glucose Ql (U)Ordered By: Marcie Sinclair on 12-30-2024 Glucose (U) [Mass/Vol] 1000 mg/dL High Normal [facility] Ketones Test strip Ql (U)Ord ered By: Briseyda Sinclair on 12-30-2024 Ketones Ql (U) Negative Negative [facility] Microscopic analysis of urin e for red blood cells (RBC)Ordered By: Briseyda Sinclair on 12-30-2024 Microscopic analysis of urine for red blood cells (RBC) 0 SEEN /hpf 0-5 [facility] Urine RBC 0 SEEN /hpf 0-5 [facility] Mucus LM Ql (Urine sed)Order ed By: Briseyda Sinclair on 12-30-2024 Mucus Ql (Urine sed) 0 SEEN /hpf [facility] Nitrite Test strip Ql (U)Ord ered By: Briseyda Sinclair on 12-30-2024 Nitrite Ql (U) Negative Negative [facility] Potassium measurement (mass/ volume)Ordered By: Briseyda Sinclair on 12-30-2024 Potassium [Moles/Vol] 4.3 mmol/L Normal 3.3-5.1 [facility] Comment on above: Performed By: #### M 100.2200, L400.0001, L500.2500 ####[facility] [address] [place], [address] Potassium (Unsp spec) [Mass/Vol] 4.3 mmol/L 3.3-5.1 [facility] Protein Test strip Ql (U)Ord ered By: Briseyda Sinclair on 12-30-2024 Protein Ql (U) 15 mg/dl High Negative [facility] Serum creatinine measurement (mass/volume)Ordered By: Briseyda Sinclair on 12-30-2024 Creatinine [Mass/Vol] 1.31 mg/dL High 0.70-1.20 [facility] Comment on above: Performed By: #### M 100.2200, L400.0001, L500.2500 ####[facility] [address] [place], [address] Serum glucose measurement (m ass/volume)Ordered By: Briseyda Sinclair on 12-30-2024 Glucose [Mass/Vol] 159 mg/dL High 70-99 [facility] Comment on above: Performed By: #### M 100.2200, L400.0001, L500.2500 ####[facility] [address], [address] Serum or plasma calcium makeda urement (mass/volume)Ordered By: Briseyda Sinclair on 12-30-2024 Calcium [Mass/Vol] 9.7 mg/dL Normal 7.6-11.0 [facility] Comment on above: Performed By: #### M 100.2200, L400.0001, L500.2500 ####[facility] [address] [place], [address] Serum or plasma urea nitroge n measurement (mass/volume)Ordered By: Briseyda Sinclair on 12-30-2024 Urea nitrogen [Mass/Vol] 23 mg/dL High 4-19 [facility] Comment on above: Performed By: #### M 100.2200, L400.0001, L500.2500 ####[facility] [address] [place], [address] Sodium levelOrdered By: Amita Sinclair on 12-30-2024 Sodium [Moles/Vol] 143 mmol/L Normal 133-145 [facility] Comment on above: Performed By: #### M 100.2200, L400.0001, L500.2500 ####[facility] [address] [place], [address] Squamous epithelial cells de tection in urine sediment by light microscopyOrdered By: Briseyda Sinclair on 12-30-2024 Epithelial cells.squamous LM Ql (Urine sed) 0 SEEN /hpf 0-5 [facility] Urinalysis, Completeon 12-30 BACTERIA 0 SEEN Normal None Seen [facility] Comment on above: Order Comment: COLLE CTOR TO SPECIFY Performed By: #### M 100.2200, L400.0001, L500.2500 ####[facility] [address] [place], [address] EPI,SQUAMOUS 0 SEEN Normal 0-5 [facility] Comment on above: Order Comment: COLLE CTOR TO SPECIFY Performed By: #### M 100.2200, L400.0001, L500.2500 ####[facility] [address] [place], [address] Mucus Ql (Urine sed) 0 SEEN Normal [facility] Comment on above: Order Comment: COLLE CTOR TO SPECIFY Performed By: #### M 100.2200, L400.0001, L500.2500 ####[facility] [address] [place], [address] RBC 0 SEEN Normal 0-5 [facility] Comment on above: Order Comment: COLLE CTOR TO SPECIFY Performed By: #### M 100.2200, L400.0001, L500.2500 ####[facility] [address] [place], [place], [address] WBC 0 SEEN Normal 0-5 [facility] Comment on above: Order Comment: COLLE CTOR TO SPECIFY Performed By: #### M 100.2200, L400.0001, L500.2500 ####[facility] [address] [place], [address] Urine blood detectionOrdered By: Briseyda Sinclair on 12-30-2024 Urine Occult Blood Negative Negative [facility] Urine clarityOrdered By: Isadora Sinclair on 12-30-2024 Clarity (U) Clear Clear [facility] Urine color determinationOrd ered By: Briseyda Sinclair on 12-30-2024 Color (U) Yellow Yellow [facility] Urine cultureOrdered By: Isadora Sinclair on 12-30-2024 Bacteria identified Cx Nom (U) Culture exhibits no growth. [facility] Urine glucose detectionOrder ed By: Briseyda Sinclair on 12-30-2024 Glucose Ql (U) 1000 mg/dl High Normal [facility] Urine leukocyte esterase det ection by dipstickOrdered By: Briseyda Sinclair on 12-30-2024 Leukocyte esterase Test strip Ql (U) Negative Negative [facility] Urine pHOrdered By: Briseyda uriarte on 12-30-2024 pH (U) 7.0 [pH] 5.0 - 8.0 [facility] Urine sediment bacteria coun t by microscopy (number/high power field)Ordered By: Briseyda Sinclair on 12-30-2024 Bacteria LM.HPF (Urine sed) [#/Area] 0 /[HPF] None Seen [facility] Urine specific gravity measu rementOrdered By: Briseyda Sinclair on 12-30-2024 Specific gravity (U) [Rel density] 1.015 1.002-1.030 [facility] Urine urobilinogen measureme ntOrdered By: Briseyda Sinclair on 12-30-2024 Urobilinogen Ql (U) Normal mg/dl Normal [facility] Urobilinogen Ql (U)Ordered B y: Briseyda Sinclair on 12-30-2024 Urine Urobilinogen Normal mg/dl Normal [facility] White blood cell countOrdere d By: Briseyda Sinclair on 12-30-2024 Urine WBC 0 SEEN /hpf 0-5 [facility] White blood cell count 0 SEEN /hpf 0-5 [facility] Free T3on 11-18-2024 Free T3 [Mass/Vol] 2.7 pg/mL Normal 2.18-3.98 [facility] Comment on above: Performed By: #### L 506.0400, L501.9520, L501.09780 ####[facility] [address] [place], [place], [id number] Free C8Rftlbvt By: Briseyda albert on 11-18-2024 Free T3 [Mass/Vol] 2.7 pg/mL 2.18-3.98 [facility] Free Triiodothyronine (T3) pg/dL 2.7 pg/mL 2.18-3.98 [facility] T4 Free Directon 11-18-2024 T4 FREE DIRECT 1.10 ng/dL Normal 0.76-1.46 [facility] Comment on above: Performed By: #### L 506.0400, L501.9520, L501.31175 ####[facility] [address] [place], [place], [id number] T4 freeOrdered By: Briseyda albert on 11-18-2024 Free T4 [Mass/Vol] 1.10 ng/dL 0.76-1.46 [facility] TSH DL <= 0.005 mIU/L QnOrde red By: Briseyda Sinclair on 11-18-2024 Thyroid Stimulating Hormone (TSH) 3.230 uIU/mL 0.300-4.200 [facility] TSH Qn 3.230 uIU/mL 0.300-4.200 [facility] Thyroid Stim Hormone (TSH)on 11-18-2024 TSH 3.230 uIU/mL Normal 0.300-4.200 [facility] Comment on above: Performed By: #### L 506.0400, L501.9520, L501.13283 ####[facility] [address] [place], [address] Cardiology Visit Reporton Cardiology Visit Report Normal [facility] PT D/C Summary (1)on 025 PT D/C Summary (1) Normal [facility] Orthopedic Visit Reporton Orthopedic Visit Report Normal [facility] Inital Evaluation (1) - PTon 08-31-2024 Inital Evaluation (1) - PT Normal [facility] Spine Lumbar (Routine)on Spine Lumbar (Routine) Normal [facility] L/S Spine Min 4 Viewson L/S Spine Min 4 Views Normal Grewal ster [facility] Orthopedic Visit Reporton Orthopedic Visit Report Normal [facility] 12-IO-Obwtwzu DOrdered By: Hammad Sinclair on 08-11-2024 Vitamin D 25-Hydroxy 36.7 ng/mL [facility] Comment on above: Vitamin D 25(OH) Sta tus Range Deficiency <20 ng/mL (50nmol/L) Insufficiency 20 - 30 ng/mL (50 - 75 nmol/L) Sufficiency 30 - 100 ng/mL (75 - 250 nmol/L) Toxicity >100 ng/mL (>250 nmol/L) Absolute neutrophil countOrd ered By: Briseyda Sinclair on 08-11-2024 Neutrophils (Bld) [#/Vol] 2.6 10*3/uL 2.0-7.7 [facility] Albumin to globulin ratioOrd ered By: Briseyda Sinclair on 08-11-2024 Albumin/Globulin [Mass ratio] 1.2 {ratio} 0.9-2.4 [facility] Basophil percentageOrdered B y: Briseyda Sinclair on 08-11-2024 Basophils/100 WBC (Bld) 0.5 % 0-1 [facility] Bilirubin directOrdered By: Dalila Chaves on 08-11-2024 Bilirubin.direct [Mass/Vol] 0.10 mg/dL 0.00-0.30 [facility] Bilirubin, totalOrdered By: Dalila Chaves on 08-11-2024 Bilirubin [Mass/Vol] 0.30 mg/dL 0.20-1.00 [facility] Comment on above: For patients on eltr ombopag therapy, use of Dimension Sarah TBIL is not recommended. Blood urea nitrogen (BUN)/cr eatinine ratioOrdered By: Briseyda Sinclair on 08-11-2024 Urea nitrogen/Creatinine [Mass ratio] 22.3 mg/mg High 10-20 [facility] CBC W/Diff, Automatedon 11- Absolute Lymph 2.07 X10 3/uL Normal 0.83-4.51 [facility] Comment on above: Performed By: #### L 501.5200, L100.0100, L501.9985, L500.4050, L500.4100, L506.1000, L501.9520 ####[facility] [address] [place], [address] Absolute Neut 2.6 X10 3/uL Normal 2.0-7.7 [facility] Comment on above: Performed By: #### L 501.5200, L100.0100, L501.9985, L500.4050, L500.4100, L506.1000, L501.9520 ####[facility] [address] [place], [address] Basophils/100 WBC (Bld) 0.5 % Normal 0-1 [facility] Comment on above: Performed By: #### L 501.5200, L100.0100, L501.9985, L500.4050, L500.4100, L506.1000, L501.9520 ####[facility] [address] [place], [address] Eosinophils/100 WBC (Bld) 8.1 % High 0-5 [facility] Comment on above: Performed By: #### L 501.5200, L100.0100, L501.9985, L500.4050, L500.4100, L506.1000, L501.9520 ####[facility] [address] [place], [address] Erythrocyte distribution width (RBC) [Ratio] 12.3 % Normal 11.6-14.6 [facility] Comment on above: Performed By: #### L 501.5200, L100.0100, L501.9985, L500.4050, L500.4100, L506.1000, L501.9520 ####[facility] [address] [place], [address] Hematocrit (Bld) [Volume fraction] 37.3 % Low 40-54 [facility] Comment on above: Performed By: #### L 501.5200, L100.0100, L501.9985, L500.4050, L500.4100, L506.1000, L501.9520 ####[facility] [address] [place], [address] Hemoglobin (Bld) [Mass/Vol] 12.7 g/dL Low 13.0-16.5 [facility] Comment on above: Performed By: #### L 501.5200, L100.0100, L501.9985, L500.4050, L500.4100, L506.1000, L501.9520 ####[facility] [address] [place], [address] IG% 0.200 Normal 0.0-0.9 [facility] Comment on above: Result Comment: IG% - Immature Granulocytes (promyelocytes, myelocytes andmetamyelocytes) > 1% indicates that a LEFT SHIFT is Present. Performed By: #### L 501.5200, L100.0100, L501.9985, L500.4050, L500.4100, L506.1000, L501.9520 ####[facility] [address] [place], [address] Lymphocytes/100 WBC (Bld) 35.6 % Normal 19-41 [facility] Comment on above: Performed By: #### L 501.5200, L100.0100, L501.9985, L500.4050, L500.4100, L506.1000, L501.9520 ####[facility] [address] [place], [address] MCH (RBC) [Entitic mass] 31.1 pg Normal 27.0-32.0 [facility] Comment on above: Performed By: #### L 501.5200, L100.0100, L501.9985, L500.4050, L500.4100, L506.1000, L501.9520 ####[facility] [address] [place], [address] MCHC (RBC) [Mass/Vol] 34.0 g/dL Normal 32-36 [facility] Comment on above: Performed By: #### L 501.5200, L100.0100, L501.9985, L500.4050, L500.4100, L506.1000, L501.9520 ####[facility] [address] [place], [address] MCV (RBC) [Entitic vol] 91.4 fL Normal 80-94 [facility] Comment on above: Performed By: #### L 501.5200, L100.0100, L501.9985, L500.4050, L500.4100, L506.1000, L501.9520 ####[facility] [address] [place], [address] Monocytes/100 WBC (Bld) 11.2 % High 0-10 [facility] Comment on above: Performed By: #### L 501.5200, L100.0100, L501.9985, L500.4050, L500.4100, L506.1000, L501.9520 ####[facility] [address] [place], [address] Neutrophils/100 WBC (Bld) 44.4 % Low 47-70 [facility] Comment on above: Performed By: #### L 501.5200, L100.0100, L501.9985, L500.4050, L500.4100, L506.1000, L501.9520 ####[facility] [address] [place], [address] Nucleated RBC (Bld) [#/Vol] 0 10*3/uL Normal 0-5 [facility] Comment on above: Performed By: #### L 501.5200, L100.0100, L501.9985, L500.4050, L500.4100, L506.1000, L501.9520 ####[facility] [address] [place], [address] Platelet mean volume (Bld) [Entitic vol] 10.1 fL Normal 6.2-12.0 [facility] Comment on above: Performed By: #### L 501.5200, L100.0100, L501.9985, L500.4050, L500.4100, L506.1000, L501.9520 ####[facility] [address] [place], [address] Platelets (Bld) [#/Vol] 240 10*3/uL Normal 150-450 [facility] Comment on above: Performed By: #### L 501.5200, L100.0100, L501.9985, L500.4050, L500.4100, L506.1000, L501.9520 ####[facility] [address] [place], [address] RBC (Bld) [#/Vol] 4.08 10*6/uL Low 4.6-6.2 [facility] Comment on above: Performed By: #### L 501.5200, L100.0100, L501.9985, L500.4050, L500.4100, L506.1000, L501.9520 ####[facility] [address] [place], [address] RDW SD 41.1 fl Normal 35.1-43.9 [facility] Comment on above: Performed By: #### L 501.5200, L100.0100, L501.9985, L500.4050, L500.4100, L506.1000, L501.9520 ####[facility] [address] [place], [address] WBC (Bld) [#/Vol] 5.8 10*3/uL Normal 4.4-11.0 [facility] Comment on above: Performed By: #### L 501.5200, L100.0100, L501.9985, L500.4050, L500.4100, L506.1000, L501.9520 ####[facility] [address] [place], [place], [id number] Carbon dioxide measurementOr dered By: Briseyda Sinclair on 08-11-2024 CO2 [Moles/Vol] 25.0 mmol/L 21.0-32.0 [facility] Chloride measurementOrdered By: Briseyda Sinclair on 08-11-2024 Chloride [Moles/Vol] 108 mmol/L High 98-107 [facility] Comprehensive Metabolic Prof ilon 08-11-2024 Albumin/Globulin [Mass ratio] 1.2 {ratio} Normal 0.9-2.4 [facility] Comment on above: Performed By: #### L 501.5200, L100.0100, L501.9985, L500.4050, L500.4100, L506.1000, L501.9520 ####[facility] [address] [place], [place], [id number] ALT [Catalytic activity/Vol] 29 U/L Normal 16-61 [facility] Comment on above: Performed By: #### L 501.5200, L100.0100, L501.9985, L500.4050, L500.4100, L506.1000, L501.9520 ####[facility] [address] [place], [address] AST [Catalytic activity/Vol] 15 U/L Normal 15-37 [facility] Comment on above: Performed By: #### L 501.5200, L100.0100, L501.9985, L500.4050, L500.4100, L506.1000, L501.9520 ####[facility] [address] [place], [address] BUN/CRE 22.3 RATIO High 10-20 [facility] Comment on above: Performed By: #### L 501.5200, L100.0100, L501.9985, L500.4050, L500.4100, L506.1000, L501.9520 ####[facility] [address] [place], [address] CA,Total 9.3 mg/dL Normal 8.5-10.1 [facility] Comment on above: Performed By: #### L 501.5200, L100.0100, L501.9985, L500.4050, L500.4100, L506.1000, L501.9520 ####[facility] [address] [place], [address] Chloride [Moles/Vol] 108 mmol/L High 98-107 [facility] Comment on above: Performed By: #### L 501.5200, L100.0100, L501.9985, L500.4050, L500.4100, L506.1000, L501.9520 ####[facility] [address] [place], [address] CO2 [Moles/Vol] 25.0 mmol/L Normal 21.0-32.0 [facility] Comment on above: Performed By: #### L 501.5200, L100.0100, L501.9985, L500.4050, L500.4100, L506.1000, L501.9520 ####[facility] [address] [place], [place], [id number] Creatinine [Mass/Vol] 1.30 mg/dL Normal 0.70-1.30 [facility] Comment on above: Result Comment: The validity of the calculated GFR GFRAA in patients over70 years has not been determined. Clinical correlation isessential. Performed By: #### L 501.5200, L100.0100, L501.9985, L500.4050, L500.4100, L506.1000, L501.9520 ####[facility] [address] [place], [address] EST GFR - AA 69 mL/min Normal >60 [facility] Comment on above: Result Comment: Afri can [place] GFR Calc Performed By: #### L 501.5200, L100.0100, L501.9985, L500.4050, L500.4100, L506.1000, L501.9520 ####[facility] [address] [place], [place], [id number] GAP 6 Normal 5-15 [facility] Comment on above: Performed By: #### L 501.5200, L100.0100, L501.9985, L500.4050, L500.4100, L506.1000, L501.9520 ####[facility] [address] [place], [place], [id number] GFR/1.73 sq M.predicted among non-blacks MDRD (S/P/Bld) [Vol rate/Area] 57 mL/min/{1.73_m2} Low >60 [facility] Comment on above: Result Comment: Non- GFR Calc Performed By: #### L 501.5200, L100.0100, L501.9985, L500.4050, L500.4100, L506.1000, L501.9520 ####[facility] [address] [place], [address] Globulin (S) [Mass/Vol] 3.2 g/dL Normal 2.2-4.2 [facility] Comment on above: Performed By: #### L 501.5200, L100.0100, L501.9985, L500.4050, L500.4100, L506.1000, L501.9520 ####[facility] [address] [place], [address] Glucose [Mass/Vol] 208 mg/dL High 74-106 [facility] Comment on above: Result Comment: Gluc ose result greater than or equal to 200 mg/dLsuggests DIABETES MELLITUS per A.D.A. criteria. Performed By: #### L 501.5200, L100.0100, L501.9985, L500.4050, L500.4100, L506.1000, L501.9520 ####[facility] [address] [place], [address] Potassium [Moles/Vol] 4.2 mmol/L Normal 3.5-5.1 [facility] Comment on above: Performed By: #### L 501.5200, L100.0100, L501.9985, L500.4050, L500.4100, L506.1000, L501.9520 ####[facility] [address] [place], [address] Sodium [Moles/Vol] 139 mmol/L Normal 136-145 [facility] Comment on above: Performed By: #### L 501.5200, L100.0100, L501.9985, L500.4050, L500.4100, L506.1000, L501.9520 ####[facility] [address] [place], [address] T PROT 6.9 g/dL Normal 6.4-8.2 [facility] Comment on above: Performed By: #### L 501.5200, L100.0100, L501.9985, L500.4050, L500.4100, L506.1000, L501.9520 ####[facility] [address] [place], [place], [id number] Urea nitrogen [Mass/Vol] 29 mg/dL High 7-18 [facility] Comment on above: Performed By: #### L 501.5200, L100.0100, L501.9985, L500.4050, L500.4100, L506.1000, L501.9520 ####[facility] [address] [place], [address] Direct serum free thyroxine (FT4) measurementOrdered By: Briseyda Sinclair on 08-11-2024 Free T4 [Mass/Vol] 0.84 ng/dL 0.76-1.46 [facility] Eosinophil percentageOrdered By: Briseyda Sinclair on 08-11-2024 Eosinophils/100 WBC (Bld) 8.1 % High 0-5 [facility] Erythrocyte distribution wid th ratioOrdered By: Briseyda Sinclair on 08-11-2024 Erythrocyte distribution width (RBC) [Ratio] 12.3 % 11.6-14.6 [facility] Erythrocyte distribution wid th standard deviationOrdered By: Briseyda Sinclair on 08-11-2024 Erythrocyte distribution width (RBC) [Entitic vol] 41.1 fL 35.1-43.9 [facility] Estimated glomerular filtrat ion rate (GFR) AmericanOrdered By: Briseyda Sinclair on 08-11-2024 Estimated GFR (MDRD) Amer 69 mL/min >60 [facility] Comment on above: GFR Calc Free T3on 08-11-2024 Free T3 [Mass/Vol] 2.2 pg/mL Normal 2.18-3.98 [facility] Comment on above: Performed By: #### L 506.0400, L501.66444 ####[facility] [address] [place], [place], [id number] Free W4Zgpuqbg By: Briseyda albert on 08-11-2024 Free Triiodothyronine (T3) pg/dL 2.2 pg/mL 2.18-3.98 [facility] Glomerular filtration rate ( GFR) estimationOrdered By: Briseyda Sinclair on 08-11-2024 Estimated GFR (MDRD) Non-Af Amer 57 mL/min Low >60 [facility] Comment on above: Non- GFR Calc Glucose measurementOrdered B y: Briseyda Sinclair on 08-11-2024 Glucose [Mass/Vol] 208 mg/dL High 74-106 [facility] Comment on above: Glucose result great er than or equal to 200 mg/dLsuggests DIABETES MELLITUS per A.D.A. criteria. Hematocrit Auto (Bld) [Volum e fraction]Ordered By: Briseyda Sinclair on 08-11-2024 Hematocrit (Bld) [Volume fraction] 37.3 % Low 40-54 [facility] Hemoglobin A1con 08-11-2024 HbA1c (Bld) [Mass fraction] 10.7 % High 3.8-5.6 [facility] Comment on above: Result Comment: Norm al < 5.7 % Prediabetic 5.7 - 6.4 % Diabetic >or= 6.5 % Please note range changes. Performed By: #### L 501.5200, L100.0100, L501.9985, L500.4050, L500.4100, L506.1000, L501.9520 ####[facility] [address] [place], [place], [address] Hemoglobin A1c percentageOrd ered By: Briseyda Sinclair on 08-11-2024 HbA1c (Bld) [Mass fraction] 10.7 % High 3.8-5.6 [facility] Comment on above: Normal < 5.7 % Predi abetic 5.7 - 6.4 % Diabetic >or= 6.5 % Please note range changes. Hemoglobin measurementOrdere d By: Briseyda Sinclair on 08-11-2024 Hemoglobin (Bld) [Mass/Vol] 12.7 g/dL Low 13.0-16.5 [facility] High density lipoprotein (HD L) measurementOrdered By: Dalila Chaves on 08-11-2024 Cholesterol in HDL [Mass/Vol] 41 mg/dL >40 [facility] Comment on above: The drugs N-Acetylcy steine and Metamizole may falsely depress this assay. Reference Range HDL <40 mg/dL Low HDL Cholesterol HDL >or= 60 mg/dL High HDL Cholesterol Immature granulocytes/100 WB C Auto (Bld)Ordered By: Briseyda Sinclair on 08-11-2024 Immature granulocytes/100 WBC (Bld) 0.200 % 0.0-0.9 [facility] Comment on above: IG% - Immature Granu locytes (promyelocytes, myelocytes and metamyelocytes) > 1% indicates that a LEFT SHIFT is Present. Laboratory - Chemistry and C hemistry - challengeOrdered By: Dalila Chaves on 08-11-2024 AST [Catalytic activity/Vol] 12 U/L Low 15-37 [facility] Lipid Profileon 08-11-2024 Cholesterol [Mass/Vol] 162 mg/dL Normal 200 [facility] Comment on above: Result Comment: <200 mg/dL Desirable 200-240 mg/dL Borderline >240 mg/dL High Risk Performed By: #### L 500.3400, L500.4100 ####[facility] [address] [place], [address] Cholesterol [Mass/Vol] 163 mg/dL Normal 200 [facility] Comment on above: Result Comment: <200 mg/dL Desirable 200-240 mg/dL Borderline >240 mg/dL High Risk Performed By: #### L 501.5200, L100.0100, L501.9985, L500.4050, L500.4100, L506.1000, L501.9520 ####[facility] [address] [place], [address] Cholesterol in HDL [Mass/Vol] 41 mg/dL Normal [facility] Comment on above: Result Comment: The drugs N-Acetylcysteine and Metamizole may falselydepress this assay. Reference Range HDL <40 mg/dL Low HDL Cholesterol HDL >or= 60 mg/dL High HDL Cholesterol Performed By: #### L 500.3400, L500.4100 ####[facility] [address] [place], [address] Performed By: #### L 501.5200, L100.0100, L501.9985, L500.4050, L500.4100, L506.1000, L501.9520 ####[facility] [address] [place], [address] Cholesterol in LDL [Mass/Vol] 62 mg/dL Normal 0-130 [facility] Comment on above: Performed By: #### L 500.3400, L500.4100 ####[facility] [address] [place], [address] Cholesterol in LDL [Mass/Vol] 64 mg/dL Normal 0-130 [facility] Comment on above: Performed By: #### L 501.5200, L100.0100, L501.9985, L500.4050, L500.4100, L506.1000, L501.9520 ####[facility] [address] [place], [address] Cholesterol in VLDL [Mass/Vol] 59 mg/dL High [address] [place] [address] Comment on above: Performed By: #### L 500.3400, L500.4100 ####[facility] [address] [place], [address] Cholesterol in VLDL [Mass/Vol] 58 mg/dL High [address] [place] [address] Comment on above: Performed By: #### L 501.5200, L100.0100, L501.9985, L500.4050, L500.4100, L506.1000, L501.9520 ####[facility] [address] [place], [address] Triglyceride [Mass/Vol] 297 mg/dL High [facility] Comment on above: Result Comment: The drugs N-Acetylcysteine and Metamizole may falselydepress this assay.Serum Triglycerides Reference Interval Normal <150 mg/dL Borderline high 150 - 199 mg/dL High 200 - 499 mg/dL Very High > or = 500 mg/dL Performed By: #### L 500.3400, L500.4100 ####[facility] [address] [place], [address] Triglyceride [Mass/Vol] 291 mg/dL High [facility] Comment on above: Result Comment: The drugs N-Acetylcysteine and Metamizole may falselydepress this assay.Serum Triglycerides Reference Interval Normal <150 mg/dL Borderline high 150 - 199 mg/dL High 200 - 499 mg/dL Very High > or = 500 mg/dL Performed By: #### L 501.5200, L100.0100, L501.9985, L500.4050, L500.4100, L506.1000, L501.9520 ####[facility] [address] [place], [address] Liver Profileon 08-11-2024 Albumin [Mass/Vol] 3.7 g/dL Normal 3.2-5.0 [facility] Comment on above: Performed By: #### L 500.3400, L500.4100 ####[facility] [address] [place], [address] Performed By: #### L 501.5200, L100.0100, L501.9985, L500.4050, L500.4100, L506.1000, L501.9520 ####[facility] [address] [place], [address] ALK P 65 U/L Normal 45-117 [facility] Comment on above: Performed By: #### L 500.3400, L500.4100 ####[facility] [address] [place], [address] Performed By: #### L 501.5200, L100.0100, L501.9985, L500.4050, L500.4100, L506.1000, L501.9520 ####[facility] [address] [place], [address] ALT [Catalytic activity/Vol] 31 U/L Normal 16-61 [facility] Comment on above: Performed By: #### L 500.3400, L500.4100 ####[facility] [address] [place], [address] AST [Catalytic activity/Vol] 12 U/L Low 15-37 [facility] Comment on above: Performed By: #### L 500.3400, L500.4100 ####[facility] [address] [place], [address] Bilirubin [Mass/Vol] 0.30 mg/dL Normal 0.20-1.00 [facility] Comment on above: Result Comment: For patients on eltrombopag therapy, use of Dimension Sarah TBIL is not recommended. Performed By: #### L 500.3400, L500.4100 ####[facility] [address] [place], [address] Performed By: #### L 501.5200, L100.0100, L501.9985, L500.4050, L500.4100, L506.1000, L501.9520 ####[facility] [address] [place], [address] Bilirubin.direct [Mass/Vol] 0.10 mg/dL Normal 0.00-0.30 [facility] Comment on above: Performed By: #### L 500.3400, L500.4100 ####[facility] [address] [place], [address] Globulin (S) [Mass/Vol] 3.3 g/dL Normal 2.2-4.2 [facility] Comment on above: Performed By: #### L 500.3400, L500.4100 ####[facility] [address] [place], [place], [id number] T PROT 7.0 g/dL Normal 6.4-8.2 [facility] Comment on above: Performed By: #### L 500.3400, L500.4100 ####[facility] [address] [place], [place], [id number] Low density lipoprotein (LDL ) cholesterol measurementOrdered By: Dalila Chaves on 08-11-2024 Cholesterol in LDL [Mass/Vol] 62 mg/dL 0-130 [facility] Lymphocytes Auto (Unsp spec) [#/Vol]Ordered By: Briseyda Sinclair on 08-11-2024 Lymphocytes (Bld) [#/Vol] 2.07 10*3/uL 0.83-4.51 [facility] Lymphocytes/100 WBC Auto (Un sp spec)Ordered By: Briseyda Sinclair on 08-11-2024 Lymphocytes/100 WBC (Bld) 35.6 % 19-41 [facility] MCV (mean corpuscular volume ) determinationOrdered By: Briseyda Sinclair on 08-11-2024 MCV (RBC) [Entitic vol] 91.4 fL 80-94 [facility] Magnesiumon 08-11-2024 Magnesium [Mass/Vol] 1.2 mg/dL Low 1.6-2.6 [facility] Comment on above: Performed By: #### L 501.5200, L100.0100, L501.9985, L500.4050, L500.4100, L506.1000, L501.9520 ####[facility] [address] [place], [place], [id number] Magnesium measurementOrdered By: Briseyda Sinclair on 08-11-2024 Magnesium [Mass/Vol] 1.2 mg/dL Low 1.6-2.6 [facility] Mean corpuscular hemoglobin (MCH) determinationOrdered By: Briseyda Sinclair on 08-11-2024 MCH (RBC) [Entitic mass] 31.1 pg 27.0-32.0 [facility] Mean corpuscular hemoglobin concentration (MCHC) determinationOrdered By: Briseyda Sinclair on 08-11-2024 MCHC (RBC) [Mass/Vol] 34.0 g/dL 32-36 [facility] Mean platelet volume determi nationOrdered By: Briseyda Sinclair on 08-11-2024 Platelet mean volume (Bld) [Entitic vol] 10.1 fL 6.2-12.0 [facility] Monocyte percentageOrdered B y: Briseyda Sinclair on 08-11-2024 Monocytes/100 WBC (Bld) 11.2 % High 0-10 [facility] Neutrophil percentageOrdered By: Briseyda Sinclair on 08-11-2024 Neutrophils/100 WBC (Bld) 44.4 % Low 47-70 [facility] Nucleated red blood cell per centageOrdered By: Briseyda Sinclair on 08-11-2024 Nucleated RBC/100 WBC (Bld) [Ratio] 0 % 0-5 [facility] Platelet countOrdered By: Marcie Sinclair on 08-11-2024 Platelets (Bld) [#/Vol] 240 10*3/uL 150-450 [facility] Potassium measurementOrdered By: Briseyda Sinclair on 08-11-2024 Potassium [Moles/Vol] 4.2 mmol/L 3.5-5.1 [facility] RBC Auto (Bld) [#/Vol]Ordere d By: Briseyda Sinclair on 08-11-2024 RBC (Bld) [#/Vol] 4.08 10*6/uL Low 4.6-6.2 [facility] Serum anion gap measurementO rdered By: Briseyda Sinclair on 08-11-2024 Anion gap [Moles/Vol] 6 mmol/L 5-15 [facility] Serum globulin measurementOr dered By: Dalila Chaves on 08-11-2024 Globulin (S) [Mass/Vol] 3.3 g/dL 2.2-4.2 [facility] Serum or plasma alanine denis otransferase (ALT) measurementOrdered By: Dalila Chaves on 08-11-2024 ALT [Catalytic activity/Vol] 31 U/L 16-61 [facility] Serum or plasma albumin makeda urement (mass/volume)Ordered By: Dalila Chaves on 08-11-2024 Albumin [Mass/Vol] 3.7 g/dL 3.2-5.0 [facility] Serum or plasma alkaline neisha sphatase measurementOrdered By: Dalila Chaves on 08-11-2024 ALP [Catalytic activity/Vol] 65 U/L 45-117 [facility] Serum or plasma calcium makeda urement (mass/volume)Ordered By: Briseyda Sinclair on 08-11-2024 Calcium [Mass/Vol] 9.3 mg/dL 8.5-10.1 [facility] Serum or plasma cholesterol measurement (mass/volume)Ordered By: Dalila Chaves on 08-11-2024 Cholesterol [Mass/Vol] 162 mg/dL <200 [facility] Comment on above: <200 mg/dL Desirable 200-240 mg/dL Borderline >240 mg/dL High Risk Serum or plasma creatinine m easurement (mass/volume)Ordered By: Briseyda Sinclair on 08-11-2024 Creatinine [Mass/Vol] 1.30 mg/dL 0.70-1.30 [facility] Comment on above: The validity of the calculated GFR & GFRAA in patients over 70 years has not been determined. Clinical correlation is essential. Serum or plasma urea nitroge n measurement (mass/volume)Ordered By: Briseyda Sinclair on 08-11-2024 Urea nitrogen [Mass/Vol] 29 mg/dL High 7-18 [facility] Sodium levelOrdered By: Amita Sinclair on 08-11-2024 Sodium [Moles/Vol] 139 mmol/L 136-145 [facility] T4 Free Directon 08-11-2024 T4 FREE DIRECT 0.84 ng/dL Normal 0.76-1.46 [facility] Comment on above: Performed By: #### L 506.0400, L501.32379 ####[facility] [address] [place], [address] TSH QnOrdered By: Briseyda Lopez [facility] on 08-11-2024 Thyroid Stimulating Hormone (TSH) 4.190 uIU/mL High 0.358-3.740 [facility] Thyroid Stim Hormone (TSH)on 08-11-2024 TSH 4.190 uIU/mL High 0.358-3.740 [facility] Comment on above: Performed By: #### L 501.5200, L100.0100, L501.9985, L500.4050, L500.4100, L506.1000, L501.9520 ####[facility] [address] [place], [place], [id number] Total proteinOrdered By: Lisset Chaves on 08-11-2024 Protein [Mass/Vol] 7.0 g/dL 6.4-8.2 [facility] Triglycerides measurementOrd ered By: Dalila Chaves on 08-11-2024 Triglyceride [Mass/Vol] 297 mg/dL High <199 [facility] Comment on above: The drugs N-Acetylcy steine and Metamizole may falsely depress this assay.Serum Triglycerides Reference Interval Normal <150 mg/dL Borderline high 150 - 199 mg/dL High 200 - 499 mg/dL Very High > or = 500 mg/dL Very low density lipoprotein (VLDL) cholesterol measurementOrdered By: Dalila Chaves on 08-11-2024 VLDL Cholesterol 59 mg/dL High 5-40 [facility] Vitamin D,25 Hydroxyon 08-11 Vitamin D 25-OH 36.7 ng/mL Normal [facility] Comment on above: Result Comment: Lesa min D 25(OH) Status Range Deficiency <20 ng/mL (50nmol/L) Insufficiency 20 - 30 ng/mL (50 - 75 nmol/L) Sufficiency 30 - 100 ng/mL (75 - 250 nmol/L) Toxicity >100 ng/mL (>250 nmol/L) Performed By: #### L 501.5200, L100.0100, L501.9985, L500.4050, L500.4100, L506.1000, L501.9520 ####[facility] [address] [place], [place], [id number] White blood cell (WBC) count Ordered By: Briseyda Sinclair on 08-11-2024 WBC (Bld) [#/Vol] 5.8 10*3/uL 4.4-11.0 [facility] MR/BMS.IMBon 08-10-2024 MR/BMS.IMB Normal [facility] Urgent Care Visit Reporton 1 09-18-2023 Urgent Care Visit Report Normal [facility] Thin prep Papanicolaou smear with manual screeningOrdered By: Manuel Gimlan on 12-03-2023 Thin prep Papanicolaou smear with manual screening 252 mg/dL 74-106 [facility] Comment on above: MANAGEMENT OF PATIEN T CARE PER NURSING PROTOCOL Basophil percentageOrdered B y: Briseyda Sinclair on 11-19-2023 Hemoglobin (Bld) [Mass/Vol] 12.5 g/dL 13.0-16.5 [facility] Hematocrit Auto (Bld) [Volum e fraction]Ordered By: Briseyda Sinclair on 11-19-2023 Hematocrit (Bld) [Volume fraction] 37.6 % 40-54 [facility] Absolute lymphocyte countOrd ered By: Briseyda Sinclair on 11-06-2023 Lymphocytes Auto (Unsp spec) [#/Vol] 1.91 10*3/uL 0.83-4.51 [facility] Automated lymphocyte count a s percentage of total leukocytesOrdered By: Briseyda Sinclair on 11-06-2023 Lymphocytes/100 WBC Auto (Unsp spec) 35.9 % 19-41 [facility] Basophil percentageOrdered B y: Briseyda Sinclair on 11-06-2023 Basophils/100 WBC (Bld) 0.6 % 0-1 [facility] Bilirubin [Mass/Vol] 0.40 mg/dL 0.20-1.00 [facility] Comment on above: For patients on eltr ombopag therapy, use of Dimension Sarah TBIL is not recommended. Chloride [Moles/Vol] 108 mmol/L 98-107 [facility] Eosinophils/100 WBC (Bld) 6.0 % 0-5 [facility] Glucose [Mass/Vol] 148 mg/dL 74-106 [facility] Comment on above: Fasting Glucose resu lt greater than or equal to 126 mg/dL suggests DIABETES MELLITUS per A.D.A. criteria. Hemoglobin (Bld) [Mass/Vol] 12.4 g/dL 13.0-16.5 [facility] Monocytes/100 WBC (Bld) 12.8 % 0-10 [facility] Neutrophils (Bld) [#/Vol] 2.4 10*3/uL 2.0-7.7 [facility] Neutrophils/100 WBC (Bld) 44.3 % 47-70 [facility] Potassium [Moles/Vol] 4.2 mmol/L 3.5-5.1 [facility] Protein [Mass/Vol] 7.0 g/dL 6.4-8.2 [facility] Sodium [Moles/Vol] 141 mmol/L 136-145 [facility] WBC (Bld) [#/Vol] 5.3 10*3/uL 4.4-11.0 [facility] Basophil percentageOrdered B y: Dalila Chaves on 11-06-2023 Cholesterol [Mass/Vol] 153 mg/dL <200 [facility] Comment on above: <200 mg/dL Desirable 200-240 mg/dL Borderline >240 mg/dL High Risk Triglyceride [Mass/Vol] 132 mg/dL <199 [facility] Comment on above: The drugs N-Acetylcy steine and Metamizole may falsely depress this assay.Serum Triglycerides Reference Interval Normal <150 mg/dL Borderline high 150 - 199 mg/dL High 200 - 499 mg/dL Very High > or = 500 mg/dL Determination of erythrocyte mean corpuscular volume (MCV)Ordered By: Briseyda Sinclair on 11-06-2023 MCV (RBC) [Entitic vol] 91.4 fL 80-94 [facility] Direct bilirubinOrdered By: Briseyda Sinclair on 11-06-2023 Bilirubin.direct [Mass/Vol] 0.11 mg/dL 0.00-0.30 [facility] Erythrocyte distribution wid th ratioOrdered By: Briseyda Sinclair on 11-06-2023 Erythrocyte distribution width (RBC) [Ratio] 13.1 % 11.6-14.6 [facility] Erythrocyte distribution wid th standard deviationOrdered By: Briseyda Sinclair on 11-06-2023 Erythrocyte distribution width (RBC) [Entitic vol] 43.8 fL 35.1-43.9 [facility] Hematocrit Auto (Bld) [Volum e fraction]Ordered By: Briseyda Sinclair on 11-06-2023 Hematocrit (Bld) [Volume fraction] 37.2 % 40-54 [facility] Immature granulocytes/100 WB C Auto (Bld)Ordered By: Briseyda Sinclair on 11-06-2023 Immature granulocytes/100 WBC (Bld) 0.400 % 0.0-0.9 [facility] Comment on above: IG% - Immature Granu locytes (promyelocytes, myelocytes and metamyelocytes) > 1% indicates that a LEFT SHIFT is Present. Laboratory - Chemistry and C hemistry - challengeOrdered By: Briseyda Sinclair on 11-06-2023 Albumin/Globulin [Mass ratio] 1.1 {ratio} 0.9-2.4 [facility] ALP [Catalytic activity/Vol] 77 U/L 45-117 [facility] ALT [Catalytic activity/Vol] 25 U/L 16-61 [facility] CO2 [Moles/Vol] 28.0 mmol/L 21.0-32.0 [facility] Globulin (S) [Mass/Vol] 3.4 g/dL 2.2-4.2 [facility] Urea nitrogen/Creatinine [Mass ratio] 20.2 mg/mg 10-20 [facility] Laboratory - Chemistry and C hemistry - challengeOrdered By: Dalila Chaves on 11-06-2023 Cholesterol in HDL [Mass/Vol] 47 mg/dL >40 [facility] Comment on above: The drugs N-Acetylcy steine and Metamizole may falsely depress this assay. Reference Range HDL <40 mg/dL Low HDL Cholesterol HDL >or= 60 mg/dL High HDL Cholesterol Cholesterol in LDL [Mass/Vol] 80 mg/dL 0-130 [facility] Laboratory - Hematology and Cell countsOrdered By: Briseyda Sinclair on 11-06-2023 MCH (RBC) [Entitic mass] 30.5 pg 27.0-32.0 [facility] MCHC (RBC) [Mass/Vol] 33.3 g/dL 32-36 [facility] Nucleated RBC/100 WBC (Bld) [Ratio] 0 % 0-5 [facility] Platelet mean volume (Bld) [Entitic vol] 10.0 fL 6.2-12.0 [facility] Platelets (Bld) [#/Vol] 289 10*3/uL 150-450 [facility] No Panel InformationOrdered By: Briseyda Sinclair on 11-06-2023 Estimated GFR (MDRD) Amer 81 mL/min >60 [facility] Comment on above: GFR Calc Estimated GFR (MDRD) Non-Af Amer 67 mL/min >60 [facility] Comment on above: Non- GFR Calc Prostate Specific Antigen Screen 2.56 ng/mL 0.00-4.00 [facility] Comment on above: This test was perfor med using the TPSA assay method for [facility] chemistry system. Values obtained with differentassay methods cannot be used interchangably.When changing PSA assays in the course of monitoring apatient, additional sequential testing should be carriedout to confirm baseline values. Vitamin D 25-Hydroxy 44.2 ng/mL [facility] Comment on above: Vitamin D 25(OH) Sta tus Range Deficiency <20 ng/mL (50nmol/L) Insufficiency 20 - 30 ng/mL (50 - 75 nmol/L) Sufficiency 30 - 100 ng/mL (75 - 250 nmol/L) Toxicity >100 ng/mL (>250 nmol/L) No Panel InformationOrdered By: Dalila Chaves on 11-06-2023 VLDL Cholesterol 26 mg/dL 5-40 [facility] RBC Auto (Bld) [#/Vol]Ordere d By: Briseyda Sinclair on 11-06-2023 RBC (Bld) [#/Vol] 4.07 10*6/uL 4.6-6.2 [facility] Serum or plasma calcium makeda urement (mass/volume)Ordered By: Briseyda Sinclair on 11-06-2023 Calcium [Mass/Vol] 10.4 mg/dL 8.5-10.1 [facility] Serum or plasma creatinine m easurement (mass/volume)Ordered By: Briseyda Sinclair on 11-06-2023 Creatinine [Mass/Vol] 1.14 mg/dL 0.70-1.30 [facility] Comment on above: The validity of the calculated GFR & GFRAA in patients over 70 years has not been determined. Clinical correlation is essential. Serum or plasma thyroid stim ulating hormone (TSH) measurement (units/volume)Ordered By: Briseyda Sinclair on 11-06-2023 TSH Qn 3.00 uIU/mL 0.358-3.74 [facility] Serum or plasma urea nitroge n measurement (mass/volume)Ordered By: Briseyda Sinclair on 11-06-2023 Urea nitrogen [Mass/Vol] 23 mg/dL 7-18 [facility] Thin prep Papanicolaou smear with manual screeningOrdered By: Briseydareji Sinclair on 11-06-2023 Thin prep Papanicolaou smear with manual screening 3.6 g/dL 3.2-5.0 [facility] Thin prep Papanicolaou smear with manual screening 11 U/L 15-37 [facility] Thin prep Papanicolaou smear with manual screening 5 5-15 [facility] Absolute lymphocyte countOrd ered By: Sadi Mccoy on 08-24-2023 Lymphocytes Auto (Unsp spec) [#/Vol] 1.66 10*3/uL 0.83-4.51 [facility] Basophil percentageOrdered B y: Sadi Mccoy on 08-24-2023 Basophils/100 WBC (Bld) 0.4 % 0-1 [facility] Chloride [Moles/Vol] 104 mmol/L 98-107 [facility] Eosinophils/100 WBC (Bld) 1.6 % 0-5 [facility] Glucose [Mass/Vol] 224 mg/dL 74-106 [facility] Comment on above: Glucose result great er than or equal to 200 mg/dLsuggests DIABETES MELLITUS per A.D.A. criteria. Neutrophils (Bld) [#/Vol] 7.4 10*3/uL 2.0-7.7 [facility] Neutrophils/100 WBC (Bld) 67.8 % 47-70 [facility] Potassium [Moles/Vol] 4.6 mmol/L 3.5-5.1 [facility] Sodium [Moles/Vol] 137 mmol/L 136-145 [facility] WBC (Bld) [#/Vol] 11.0 10*3/uL 4.4-11.0 [facility] Blood erythrocytes count (nu mber/volume)Ordered By: Sadi Mccoy on 08-24-2023 RBC (Bld) [#/Vol] 4.40 10*6/uL 4.6-6.2 [facility] Blood hemoglobin measurement (mass/volume)Ordered By: Sadi Mccoy on 08-24-2023 Hemoglobin (Bld) [Mass/Vol] 13.9 g/dL 13.0-16.5 [facility] Blood lymphocytes/100 leukoc ytesOrdered By: Sadi Mccoy on 08-24-2023 Lymphocytes/100 WBC (Bld) 15.2 % 19-41 [facility] Blood monocytes/100 leukocyt esOrdered By: Sadi Mccoy on 08-24-2023 Monocytes/100 WBC (Bld) 14.5 % 0-10 [facility] Blood platelet adequacy dete ction by light microscopyOrdered By: Sadi Mccoy on 08-24-2023 Platelets LM Ql (Bld) ADEQUATE ADEQ [facility] Blood platelet mean volumeOr dered By: Sadi Mccoy on 08-24-2023 Platelet mean volume (Bld) [Entitic vol] 9.8 fL 6.2-12.0 [facility] Determination of erythrocyte mean corpuscular volume (MCV)Ordered By: Sadi Mccoy on 08-24-2023 MCV (RBC) [Entitic vol] 91.1 fL 80-94 [facility] Hematocrit Auto (Bld) [Volum e fraction]Ordered By: Sadi Mccoy on 08-24-2023 Hematocrit (Bld) [Volume fraction] 40.1 % 40-54 [facility] Laboratory - Chemistry and C hemistry - challengeOrdered By: Sadi Mccoy on 08-24-2023 CO2 [Moles/Vol] 29.0 mmol/L 21.0-32.0 [facility] Urea nitrogen/Creatinine [Mass ratio] 23.5 mg/mg 10-20 [facility] Laboratory - Hematology and Cell countsOrdered By: Sadi Mccoy on 08-24-2023 Erythrocyte distribution width (RBC) [Entitic vol] 41.1 fL 35.1-43.9 [facility] Erythrocyte distribution width (RBC) [Ratio] 12.4 % 11.6-14.6 [facility] Immature granulocytes/100 WBC (Bld) 0.500 % 0.0-0.9 [facility] Comment on above: IG% - Immature Granu locytes (promyelocytes, myelocytes and metamyelocytes) > 1% indicates that a LEFT SHIFT is Present. MCH (RBC) [Entitic mass] 31.6 pg 27.0-32.0 [facility] Nucleated RBC/100 WBC (Bld) [Ratio] 0 % 0-5 [facility] MCHC Auto (RBC) [Mass/Vol]Or dered By: Sadi Mccoy on 08-24-2023 MCHC (RBC) [Mass/Vol] 34.7 g/dL 32-36 [facility] No Panel InformationOrdered By: Sadi Mccoy on 08-24-2023 Estimated Creatinine Clearance Calc 51.60 ml/min [facility] Estimated GFR (MDRD) Amer 68 mL/min >60 [facility] Comment on above: GFR Calc Estimated GFR (MDRD) Non-Af Amer 57 mL/min >60 [facility] Comment on above: Non- GFR Calc Platelets bldOrdered By: Misha Mccoy on 08-24-2023 Platelets (Bld) [#/Vol] 223 10*3/uL 150-450 [facility] RBC morphologyOrdered By: Devaughn Mccoy on 08-24-2023 RBC morphology finding Nom (Bld) NORM C+C NORMAL NORM C&C [facility] Serum or plasma calcium makeda urement (mass/volume)Ordered By: Sadi Mccoy on 08-24-2023 Calcium [Mass/Vol] 10.1 mg/dL 8.5-10.1 [facility] Serum or plasma creatinine m easurement (mass/volume)Ordered By: Sadi Mccoy on 08-24-2023 Creatinine [Mass/Vol] 1.32 mg/dL 0.70-1.30 [facility] Comment on above: The validity of the calculated GFR & GFRAA in patients over 70 years has not been determined. Clinical correlation is essential. Serum or plasma urea nitroge n measurement (mass/volume)Ordered By: Sadi Mccoy on 08-24-2023 Urea nitrogen [Mass/Vol] 31 mg/dL 7-18 [facility] Thin prep Papanicolaou smear with manual screeningOrdered By: Sadi Mccoy on 08-24-2023 Thin prep Papanicolaou smear with manual screening 4 5-15 [facility] Absolute lymphocyte countOrd ered By: Diogenes Villalpando on 08-20-2023 Lymphocytes Auto (Unsp spec) [#/Vol] 1.88 10*3/uL 0.83-4.51 [facility] Basophil percentageOrdered B y: Diogenes Villalpando on 08-20-2023 Basophil percentage 0 SEEN /hpf 0-5 [facility] Basophils/100 WBC (Bld) 0.2 % 0-1 [facility] Chloride [Moles/Vol] 101 mmol/L 98-107 [facility] Eosinophils/100 WBC (Bld) 2.0 % 0-5 [facility] Glucose [Mass/Vol] 271 mg/dL 74-106 [facility] Comment on above: Glucose result great er than or equal to 200 mg/dLsuggests DIABETES MELLITUS per A.D.A. criteria. Neutrophils (Bld) [#/Vol] 5.0 10*3/uL 2.0-7.7 [facility] Neutrophils/100 WBC (Bld) 62.5 % 47-70 [facility] Potassium [Moles/Vol] 4.4 mmol/L 3.5-5.1 [facility] Comment on above: Slight Hemolysis, Re sult may be falsely increased. Sodium [Moles/Vol] 137 mmol/L 136-145 [facility] WBC (Bld) [#/Vol] 8.0 10*3/uL 4.4-11.0 [facility] Bilirubin Test strip Ql (U)O rdered By: Diogenes Villalpando on 08-20-2023 Bilirubin Ql (U) Negative Negative [facility] Blood erythrocytes count (nu mber/volume)Ordered By: Diogenes Villalpando on 08-20-2023 RBC (Bld) [#/Vol] 4.54 10*6/uL 4.6-6.2 [facility] Blood hemoglobin measurement (mass/volume)Ordered By: Diogenes Villalpando on 08-20-2023 Hemoglobin (Bld) [Mass/Vol] 14.1 g/dL 13.0-16.5 [facility] Blood lymphocytes/100 leukoc ytesOrdered By: Diogense Villalpando on 08-20-2023 Lymphocytes/100 WBC (Bld) 23.4 % 19-41 [facility] Blood monocytes/100 leukocyt esOrdered By: Diogenes Villalpando on 08-20-2023 Monocytes/100 WBC (Bld) 11.5 % 0-10 [facility] Blood platelet mean volumeOr dered By: Diogenes Villalpando on 08-20-2023 Platelet mean volume (Bld) [Entitic vol] 9.9 fL 6.2-12.0 [facility] Determination of erythrocyte mean corpuscular volume (MCV)Ordered By: Diogenes Villalpando on 08-20-2023 MCV (RBC) [Entitic vol] 91.4 fL 80-94 [facility] Hematocrit Auto (Bld) [Volum e fraction]Ordered By: Diogenes Villalpando on 08-20-2023 Hematocrit (Bld) [Volume fraction] 41.5 % 40-54 [facility] Ketones Test strip Ql (U)Ord ered By: Diogenes Villalpando on 08-20-2023 Ketones Ql (U) Negative Negative [facility] Laboratory - Chemistry and C hemistry - challengeOrdered By: Diogenes Villalpando on 08-20-2023 CO2 [Moles/Vol] 27.0 mmol/L 21.0-32.0 [facility] Urea nitrogen/Creatinine [Mass ratio] 29.7 mg/mg 10-20 [facility] Laboratory - Hematology and Cell countsOrdered By: Diogenes Villalpando on 08-20-2023 Erythrocyte distribution width (RBC) [Entitic vol] 40.8 fL 35.1-43.9 [facility] Erythrocyte distribution width (RBC) [Ratio] 12.2 % 11.6-14.6 [facility] Immature granulocytes/100 WBC (Bld) 0.400 % 0.0-0.9 [facility] Comment on above: IG% - Immature Granu locytes (promyelocytes, myelocytes and metamyelocytes) > 1% indicates that a LEFT SHIFT is Present. MCH (RBC) [Entitic mass] 31.1 pg 27.0-32.0 [facility] Nucleated RBC/100 WBC (Bld) [Ratio] 0 % 0-5 [facility] MCHC Auto (RBC) [Mass/Vol]Or dered By: Diogenes Villalpando on 08-20-2023 MCHC (RBC) [Mass/Vol] 34.0 g/dL 32-36 [facility] Mucus LM Ql (Urine sed)Order ed By: Diogenes Villalpando on 08-20-2023 Mucus Ql (Urine sed) 0 SEEN /hpf [facility] Nitrite Test strip Ql (U)Ord ered By: Diogenes Villalpando on 08-20-2023 Nitrite Ql (U) Negative Negative [facility] No Panel InformationOrdered By: Diogenes Villalpando on 08-20-2023 Estimated Creatinine Clearance Calc 49.90 ml/min [facility] Estimated GFR (MDRD) Amer 65 mL/min >60 [facility] Comment on above: GFR Calc Estimated GFR (MDRD) Non-Af Amer 54 mL/min >60 [facility] Comment on above: Non- GFR Calc Platelets bldOrdered By: Simeon Villalpando on 08-20-2023 Platelets (Bld) [#/Vol] 259 10*3/uL 150-450 [facility] Protein Test strip Ql (U)Ord ered By: Diogenes Villalpando on 08-20-2023 Protein Ql (U) 15 mg/dl Negative [facility] Serum or plasma calcium makeda urement (mass/volume)Ordered By: Diogenes Villalpando on 08-20-2023 Calcium [Mass/Vol] 9.5 mg/dL 8.5-10.1 [facility] Serum or plasma creatinine m easurement (mass/volume)Ordered By: Diogenes Villalpando on 08-20-2023 Creatinine [Mass/Vol] 1.38 mg/dL 0.70-1.30 [facility] Comment on above: The validity of the calculated GFR & GFRAA in patients over 70 years has not been determined. Clinical correlation is essential. Serum or plasma urea nitroge n measurement (mass/volume)Ordered By: Diogenes Villalpando on 08-20-2023 Urea nitrogen [Mass/Vol] 41 mg/dL 7-18 [facility] Squamous epithelial cells de tection in urine sediment by light microscopyOrdered By: Diogenes Villalpando on 08-20-2023 Epithelial cells.squamous LM Ql (Urine sed) 0 SEEN /hpf 0-5 [facility] Thin prep Papanicolaou smear with manual screeningOrdered By: Diogenes Villalpando on 08-20-2023 Thin prep Papanicolaou smear with manual screening 9 5-15 [facility] Urine blood detectionOrdered By: Diogenes Villalpando on 08-20-2023 RBC Ql (U) Negative Negative [facility] RBC Ql (U) 0 SEEN /hpf 0-5 [facility] Urine clarityOrdered By: Simeon Villalpando on 08-20-2023 Clarity (U) Clear Clear [facility] Urine color determinationOrd ered By: Diogenes Villalpando on 08-20-2023 Color (U) Yellow Yellow [facility] Urine glucose detectionOrder ed By: Diogenes Villalpando on 08-20-2023 Glucose Ql (U) 1000 mg/dl Normal [facility] Urine leukocyte esterase det ection by dipstickOrdered By: Diogenes Villalpando on 08-20-2023 Leukocyte esterase Test strip Ql (U) Negative Negative [facility] Urine pHOrdered By: Diogenes Villalpando on 08-20-2023 pH (U) 6.0 [pH] 5.0 - 8.0 [facility] Urine sediment bacteria coun t by microscopy (number/high power field)Ordered By: Diogenes Villalpando on 08-20-2023 Bacteria LM.HPF (Urine sed) [#/Area] 0 /[HPF] None Seen [facility] Urine specific gravity measu rementOrdered By: Diogenes Villalpando on 08-20-2023 Specific gravity (U) [Rel density] 1.015 1.002-1.030 [facility] Urobilinogen Auto test strip Ql (U)Ordered By: Diogenes Villalpando on 08-20-2023 Urobilinogen Ql (U) Normal mg/dl Normal [facility] No Panel Informationon 08-13 Influenza Types A,B Rapid (Clinic) Negative [facility] POC SARS CoV-2 Antigen Positive [facility] Basophil percentageOrdered B y: Mc Saleh on 05-23-2023 Chloride [Moles/Vol] 107 mmol/L 98-107 [facility] Cholesterol [Mass/Vol] 125 mg/dL <200 [facility] Comment on above: <200 mg/dL Desirable 200-240 mg/dL Borderline >240 mg/dL High Risk Glucose [Mass/Vol] 191 mg/dL 74-106 [facility] Comment on above: Fasting Glucose resu lt greater than or equal to 126 mg/dL suggests DIABETES MELLITUS per A.D.A. criteria. Potassium [Moles/Vol] 4.2 mmol/L 3.5-5.1 [facility] Sodium [Moles/Vol] 140 mmol/L 136-145 [facility] Triglyceride [Mass/Vol] 228 mg/dL <199 [facility] Comment on above: The drugs N-Acetylcy steine and Metamizole may falsely depress this assay.Serum Triglycerides Reference Interval Normal <150 mg/dL Borderline high 150 - 199 mg/dL High 200 - 499 mg/dL Very High > or = 500 mg/dL Laboratory - Chemistry and C hemistry - challengeOrdered By: Mc Saleh on 05-23-2023 ALT [Catalytic activity/Vol] 29 U/L 16-61 [facility] CK [Catalytic activity/Vol] 81 U/L 39-308 [facility] CO2 [Moles/Vol] 27.0 mmol/L 21.0-32.0 [facility] Urea nitrogen/Creatinine [Mass ratio] 22.2 mg/mg 10-20 [facility] No Panel InformationOrdered By: Mc Saleh on 05-23-2023 Estimated GFR (MDRD) Amer 79 mL/min >60 [facility] Comment on above: GFR Calc Estimated GFR (MDRD) Non-Af Amer 65 mL/min >60 [facility] Comment on above: Non- GFR Calc Serum or plasma calcium makeda urement (mass/volume)Ordered By: Mc Saleh on 05-23-2023 Calcium [Mass/Vol] 9.0 mg/dL 8.5-10.1 [facility] Serum or plasma cholesterol in HDL measurement (mass/volume)Ordered By: Mc Saleh on 05-23-2023 Cholesterol in HDL [Mass/Vol] 39 mg/dL >40 [facility] Comment on above: The drugs N-Acetylcy steine and Metamizole may falsely depress this assay. Reference Range HDL <40 mg/dL Low HDL Cholesterol HDL >or= 60 mg/dL High HDL Cholesterol Serum or plasma cholesterol in VLDL measurement (mass/volume)Ordered By: Mc Saleh on 05-23-2023 Cholesterol in VLDL [Mass/Vol] 46 mg/dL 5-40 [facility] Serum or plasma creatinine m easurement (mass/volume)Ordered By: Mc Saleh on 05-23-2023 Creatinine [Mass/Vol] 1.17 mg/dL 0.70-1.30 [facility] Comment on above: The validity of the calculated GFR & GFRAA in patients over 70 years has not been determined. Clinical correlation is essential. Serum or plasma low density lipoprotein (LDL) cholesterol measurement (mass/volume)Ordered By: Mcsarah Saleh on 05-23-2023 Cholesterol in LDL [Mass/Vol] 40 mg/dL 0-130 [facility] Serum or plasma urea nitroge n measurement (mass/volume)Ordered By: Mcsarah Saleh on 05-23-2023 Urea nitrogen [Mass/Vol] 26 mg/dL 7-18 [facility] Thin prep Papanicolaou smear with manual screeningOrdered By: Mcsarah Saleh on 05-23-2023 Thin prep Papanicolaou smear with manual screening 13 U/L 15-37 [facility] Thin prep Papanicolaou smear with manual screening 6 5-15 [facility] Absolute lymphocyte countOrd ered By: Briseyda Sinclair on 04-03-2023 Lymphocytes Auto (Unsp spec) [#/Vol] 1.71 10*3/uL 0.83-4.51 [facility] Basophil percentageOrdered B y: Briseyda Sinclair on 04-03-2023 Basophils/100 WBC (Bld) 0.2 % 0-1 [facility] Bilirubin [Mass/Vol] 0.40 mg/dL 0.20-1.00 [facility] Comment on above: For patients on eltr ombopag therapy, use of Dimension Sarah TBIL is not recommended. Chloride [Moles/Vol] 104 mmol/L 98-107 [facility] Eosinophils/100 WBC (Bld) 4.7 % 0-5 [facility] Glucose [Mass/Vol] 345 mg/dL 74-106 [facility] Comment on above: Glucose result great er than or equal to 200 mg/dLsuggests DIABETES MELLITUS per A.D.A. criteria. Neutrophils (Bld) [#/Vol] 2.3 10*3/uL 2.0-7.7 [facility] Neutrophils/100 WBC (Bld) 48.3 % 47-70 [facility] Potassium [Moles/Vol] 4.6 mmol/L 3.5-5.1 [facility] Protein [Mass/Vol] 6.7 g/dL 6.4-8.2 [facility] Sodium [Moles/Vol] 138 mmol/L 136-145 [facility] WBC (Bld) [#/Vol] 4.9 10*3/uL 4.4-11.0 [facility] Blood erythrocytes count (nu mber/volume)Ordered By: Briseyda Sinclair on 04-03-2023 RBC (Bld) [#/Vol] 4.11 10*6/uL 4.6-6.2 [facility] Blood hemoglobin measurement (mass/volume)Ordered By: Briseyda Sinclair on 04-03-2023 Hemoglobin (Bld) [Mass/Vol] 13.0 g/dL 13.0-16.5 [facility] Blood lymphocytes/100 leukoc ytesOrdered By: Briseyda Sinclair on 04-03-2023 Lymphocytes/100 WBC (Bld) 35.3 % 19-41 [facility] Blood monocytes/100 leukocyt esOrdered By: Briseyda Sinclair on 04-03-2023 Monocytes/100 WBC (Bld) 11.3 % 0-10 [facility] Blood platelet mean volumeOr dered By: Briseyda Sinclair on 04-03-2023 Platelet mean volume (Bld) [Entitic vol] 9.2 fL 6.2-12.0 [facility] Determination of erythrocyte mean corpuscular volume (MCV)Ordered By: Briseyda Sinclair on 04-03-2023 MCV (RBC) [Entitic vol] 91.5 fL 80-94 [facility] Hematocrit Auto (Bld) [Volum e fraction]Ordered By: Briseyda Sinclair on 04-03-2023 Hematocrit (Bld) [Volume fraction] 37.6 % 40-54 [facility] Laboratory - Chemistry and C hemistry - challengeOrdered By: Briseyda Sinclair on 04-03-2023 ALP [Catalytic activity/Vol] 62 U/L 45-117 [facility] ALT [Catalytic activity/Vol] 35 U/L 16-61 [facility] CO2 [Moles/Vol] 28.0 mmol/L 21.0-32.0 [facility] Globulin (S) [Mass/Vol] 3.1 g/dL 2.2-4.2 [facility] Urea nitrogen/Creatinine [Mass ratio] 16.2 mg/mg 10-20 [facility] Laboratory - Hematology and Cell countsOrdered By: Briseyda Sinclair on 04-03-2023 Erythrocyte distribution width (RBC) [Entitic vol] 41.0 fL 35.1-43.9 [facility] Erythrocyte distribution width (RBC) [Ratio] 12.3 % 11.6-14.6 [facility] Immature granulocytes/100 WBC (Bld) 0.200 % 0.0-0.9 [facility] Comment on above: IG% - Immature Granu locytes (promyelocytes, myelocytes and metamyelocytes) > 1% indicates that a LEFT SHIFT is Present. MCH (RBC) [Entitic mass] 31.6 pg 27.0-32.0 [facility] Nucleated RBC/100 WBC (Bld) [Ratio] 0 % 0-5 [facility] MCHC Auto (RBC) [Mass/Vol]Or dered By: Briseyda Sinclair on 04-03-2023 MCHC (RBC) [Mass/Vol] 34.6 g/dL 32-36 [facility] No Panel InformationOrdered By: Briseyda Sinclair on 04-03-2023 Estimated GFR (MDRD) Amer 63 mL/min >60 [facility] Comment on above: GFR Calc Estimated GFR (MDRD) Non-Af Amer 52 mL/min >60 [facility] Comment on above: Non- GFR Calc Vitamin D 25-Hydroxy 50.8 ng/mL [facility] Comment on above: Vitamin D 25(OH) Sta tus Range Deficiency <20 ng/mL (50nmol/L) Insufficiency 20 - 30 ng/mL (50 - 75 nmol/L) Sufficiency 30 - 100 ng/mL (75 - 250 nmol/L) Toxicity >100 ng/mL (>250 nmol/L) Platelets bldOrdered By: Isadora Sinclair on 04-03-2023 Platelets (Bld) [#/Vol] 233 10*3/uL 150-450 [facility] Serum or plasma albumin makeda urement (mass/volume)Ordered By: Briseyda Sinclair on 04-03-2023 Albumin [Mass/Vol] 3.6 g/dL 3.2-5.0 [facility] Serum or plasma albumin/glob ulin mass ratioOrdered By: Briseyda Sinclair on 04-03-2023 Albumin/Globulin [Mass ratio] 1.2 {ratio} 0.9-2.4 [facility] Serum or plasma calcium makeda urement (mass/volume)Ordered By: Briseyda Sinclair on 04-03-2023 Calcium [Mass/Vol] 9.1 mg/dL 8.5-10.1 [facility] Serum or plasma creatinine m easurement (mass/volume)Ordered By: Briseyda Sinclair on 04-03-2023 Creatinine [Mass/Vol] 1.42 mg/dL 0.70-1.30 [facility] Comment on above: The validity of the calculated GFR & GFRAA in patients over 70 years has not been determined. Clinical correlation is essential. Serum or plasma urea nitroge n measurement (mass/volume)Ordered By: rBiseyda Sinclair on 04-03-2023 Urea nitrogen [Mass/Vol] 23 mg/dL 7-18 [facility] Thin prep Papanicolaou smear with manual screeningOrdered By: Briseyda Sinclair on 04-03-2023 Thin prep Papanicolaou smear with manual screening 15 U/L 15-37 [facility] Thin prep Papanicolaou smear with manual screening 6 5-15 [facility] Laboratory - Hematology and Cell countson 04-01-2023 HbA1c (Bld) [Mass fraction] 10.7 % 4.2-6.3 [facility] Absolute lymphocyte countOrd ered By: Dr. Sinclair on 09-25-2022 Lymphocytes Auto (Unsp spec) [#/Vol] 1.60 10*3/uL 0.83-4.51 [facility] Basophil percentageOrdered B y: Dr. Sinclair on 09-25-2022 Basophils/100 WBC (Bld) 0.4 % 0-1 [facility] Bilirubin [Mass/Vol] 0.40 mg/dL 0.20-1.00 [facility] Comment on above: For patients on eltr ombopag therapy, use of Dimension Sarah TBIL is not recommended. Chloride [Moles/Vol] 106 mmol/L 98-107 [facility] Cholesterol [Mass/Vol] 165 mg/dL <200 [facility] Comment on above: <200 mg/dL Desirable 200-240 mg/dL Borderline >240 mg/dL High Risk Eosinophils/100 WBC (Bld) 5.2 % 0-5 [facility] Glucose [Mass/Vol] 219 mg/dL 74-106 [facility] Comment on above: Glucose result great er than or equal to 200 mg/dLsuggests DIABETES MELLITUS per A.D.A. criteria. Neutrophils (Bld) [#/Vol] 2.1 10*3/uL 2.0-7.7 [facility] Neutrophils/100 WBC (Bld) 46.9 % 47-70 [facility] Potassium [Moles/Vol] 4.2 mmol/L 3.5-5.1 [facility] Protein [Mass/Vol] 7.2 g/dL 6.4-8.2 [facility] Sodium [Moles/Vol] 139 mmol/L 136-145 [facility] Triglyceride [Mass/Vol] 221 mg/dL <199 [facility] Comment on above: The drugs N-Acetylcy steine and Metamizole may falsely depress this assay.Serum Triglycerides Reference Interval Normal <150 mg/dL Borderline high 150 - 199 mg/dL High 200 - 499 mg/dL Very High > or = 500 mg/dL WBC (Bld) [#/Vol] 4.5 10*3/uL 4.4-11.0 [facility] Blood erythrocytes count (nu mber/volume)Ordered By: Dr. Sinclair on 09-25-2022 RBC (Bld) [#/Vol] 4.45 10*6/uL 4.6-6.2 [facility] Blood hemoglobin measurement (mass/volume)Ordered By: Dr. Sinclair on 09-25-2022 Hemoglobin (Bld) [Mass/Vol] 13.8 g/dL 13.0-16.5 [facility] Blood lymphocytes/100 leukoc ytesOrdered By: Dr. Sinclair on 09-25-2022 Lymphocytes/100 WBC (Bld) 36.0 % 19-41 [facility] Blood monocytes/100 leukocyt esOrdered By: Dr. Sinclair on 09-25-2022 Monocytes/100 WBC (Bld) 11.5 % 0-10 [facility] Blood platelet mean volumeOr dered By: Dr. Sinclair on 09-25-2022 Platelet mean volume (Bld) [Entitic vol] 10.3 fL 6.2-12.0 [facility] Determination of erythrocyte mean corpuscular volume (MCV)Ordered By: Dr. Sinclair on 09-25-2022 MCV (RBC) [Entitic vol] 92.1 fL 80-94 [facility] Hematocrit Auto (Bld) [Volum e fraction]Ordered By: Dr. Sinclair on 09-25-2022 Hematocrit (Bld) [Volume fraction] 41.0 % 40-54 [facility] Laboratory - Chemistry and C hemistry - challengeOrdered By: Dr. Sinclair on 09-25-2022 ALP [Catalytic activity/Vol] 55 U/L 45-117 [facility] ALT [Catalytic activity/Vol] 34 U/L 16-61 [facility] CO2 [Moles/Vol] 28.0 mmol/L 21.0-32.0 [facility] Globulin (S) [Mass/Vol] 3.3 g/dL 2.2-4.2 [facility] Urea nitrogen/Creatinine [Mass ratio] 23.0 mg/mg 10-20 [facility] Laboratory - Hematology and Cell countsOrdered By: Dr. Sinclair on 09-25-2022 Erythrocyte distribution width (RBC) [Entitic vol] 42.1 fL 35.1-43.9 [facility] Erythrocyte distribution width (RBC) [Ratio] 12.5 % 11.6-14.6 [facility] Immature granulocytes/100 WBC (Bld) 0.000 % 0.0-0.9 [facility] Comment on above: IG% - Immature Granu locytes (promyelocytes, myelocytes and metamyelocytes) > 1% indicates that a LEFT SHIFT is Present. MCH (RBC) [Entitic mass] 31.0 pg 27.0-32.0 [facility] Nucleated RBC/100 WBC (Bld) [Ratio] 0.4 % 0-5 [facility] ([facility]) [Mass/Vol]Or dered By: Dr. Sinclair on 09-25-2022 MCHC (RBC) [Mass/Vol] 33.7 g/dL 32-36 [facility] No Panel InformationOrdered By: Dr. Sinclair on 09-25-2022 Estimated GFR (MDRD) Amer 82 mL/min >60 [facility] Comment on above: GFR Calc Estimated GFR (MDRD) Non-Af Amer 68 mL/min >60 [facility] Comment on above: Non- GFR Calc Prostate Specific Antigen Screen 1.97 ng/mL 0.00-4.00 [facility] Comment on above: This test was perfor med using the TPSA assay method for theWARSTUFF chemistry system. Values obtained with differentassay methods cannot be used interchangably.When changing PSA assays in the course of monitoring apatient, additional sequential testing should be carriedout to confirm baseline values. Thyroid Stimulating Hormone (TSH) 3.41 uIU/mL 0.358-3.74 [facility] Vitamin D 25-Hydroxy 37.2 ng/mL [facility] Comment on above: Vitamin D 25(OH) Sta tus Range Deficiency <20 ng/mL (50nmol/L) Insufficiency 20 - 30 ng/mL (50 - 75 nmol/L) Sufficiency 30 - 100 ng/mL (75 - 250 nmol/L) Toxicity >100 ng/mL (>250 nmol/L) Platelets bldOrdered By: Dr. Sinclair on 09-25-2022 Platelets (Bld) [#/Vol] 244 10*3/uL 150-450 [facility] Serum or plasma albumin makeda urement (mass/volume)Ordered By: Dr. Sinclair on 09-25-2022 Albumin [Mass/Vol] 3.9 g/dL 3.2-5.0 [facility] Serum or plasma albumin/glob ulin mass ratioOrdered By: Dr. Sinclair on 09-25-2022 Albumin/Globulin [Mass ratio] 1.2 {ratio} 0.9-2.4 [facility] Serum or plasma calcium makeda urement (mass/volume)Ordered By: Dr. Sinclair on 09-25-2022 Calcium [Mass/Vol] 9.3 mg/dL 8.5-10.1 [facility] Serum or plasma cholesterol in HDL measurement (mass/volume)Ordered By: Dr. Sinclair on 09-25-2022 Cholesterol in HDL [Mass/Vol] 40 mg/dL >40 [facility] Comment on above: The drugs N-Acetylcy steine and Metamizole may falsely depress this assay. Reference Range HDL <40 mg/dL Low HDL Cholesterol HDL >or= 60 mg/dL High HDL Cholesterol Serum or plasma cholesterol in VLDL measurement (mass/volume)Ordered By: Dr. Sinclair on 09-25-2022 Cholesterol in VLDL [Mass/Vol] 44 mg/dL 5-40 [facility] Serum or plasma creatinine m easurement (mass/volume)Ordered By: Dr. Sinclair on 09-25-2022 Creatinine [Mass/Vol] 1.13 mg/dL 0.70-1.30 [facility] Comment on above: The validity of the calculated GFR & GFRAA in patients over 70 years has not been determined. Clinical correlation is essential. Serum or plasma low density lipoprotein (LDL) cholesterol measurement (mass/volume)Ordered By: Dr. Sinclair on 09-25-2022 Cholesterol in LDL [Mass/Vol] 81 mg/dL 0-130 [facility] Serum or plasma urea nitroge n measurement (mass/volume)Ordered By: Dr. Sinclair on 09-25-2022 Urea nitrogen [Mass/Vol] 26 mg/dL 7-18 [facility] Thin prep Papanicolaou smear with manual screeningOrdered By: Dr. Sinclair on 09-25-2022 Thin prep Papanicolaou smear with manual screening 13 U/L 15-37 [facility] Thin prep Papanicolaou smear with manual screening 5 5-15 [facility] - Hematology and Cell countson 09-24-2022 HbA1c (Bld) [Mass fraction] 11.4 % 4.2-6.3 [facility] Basophil percentageon 2021 Chloride [Moles/Vol] 102 mmol/L 98-107 [facility] Work Phone: Glucose [Mass/Vol] 394 mg/dL 74-106 [facility] Work Phone: Comment on above: Glucose result great er than or equal to 200 mg/dLsuggests DIABETES MELLITUS per A.D.A. criteria. Potassium [Moles/Vol] 4.5 mmol/L 3.5-5.1 [facility] Work Phone: Sodium [Moles/Vol] 136 mmol/L 136-145 [facility] Work Phone: Laboratory - Chemistry and C hemistry - challengeon 06-04-2022 CO2 [Moles/Vol] 26.0 mmol/L 21.0-32.0 [facility] Work Phone: Urea nitrogen/Creatinine [Mass ratio] 21.4 mg/mg 10-20 [facility] Work Phone: No Panel Informationon 06-04 Estimated GFR (MDRD) Amer 64 mL/min >60 [facility] Work Phone: Comment on above: GFR Calc Estimated GFR (MDRD) Non-Af Amer 53 mL/min >60 [facility] Work Phone: Comment on above: Non- GFR Calc Serum or plasma calcium makeda urement (mass/volume)on 06-04-2022 Calcium [Mass/Vol] 9.3 mg/dL 8.5-10.1 [facility] Work Phone: Serum or plasma creatinine m easurement (mass/volume)on 06-04-2022 Creatinine [Mass/Vol] 1.40 mg/dL 0.70-1.30 [facility] Work Phone: Comment on above: The validity of the calculated GFR & GFRAA in patients over 70 years has not been determined. Clinical correlation is essential. Serum or plasma urea nitroge n measurement (mass/volume)on 06-04-2022 Urea nitrogen [Mass/Vol] 30 mg/dL 7-18 [facility] Work Phone: Thin prep Papanicolaou smear with manual screeningon 06-04-2022 Thin prep Papanicolaou smear with manual screening 8 5-15 [facility] Work Phone: Basophil percentageon 2021 Chloride [Moles/Vol] 102 mmol/L 98-107 [facility] Work Phone: Glucose [Mass/Vol] 334 mg/dL 74-106 [facility] Work Phone: Comment on above: Glucose result great er than or equal to 200 mg/dLsuggests DIABETES MELLITUS per A.D.A. criteria. Potassium [Moles/Vol] 4.8 mmol/L 3.5-5.1 [facility] Work Phone: Sodium [Moles/Vol] 136 mmol/L 136-145 [facility] Work Phone: WBC (Bld) [#/Vol] 5.6 10*3/uL 4.4-11.0 [facility] Work Phone: Blood erythrocytes count (nu mber/volume)on 05-24-2022 RBC (Bld) [#/Vol] 4.22 10*6/uL 4.6-6.2 [facility] Work Phone: Blood hemoglobin measurement (mass/volume)on 05-24-2022 Hemoglobin (Bld) [Mass/Vol] 13.4 g/dL 13.0-16.5 [facility] Work Phone: Blood platelet mean volumeon 05-24-2022 Platelet mean volume (Bld) [Entitic vol] 10.3 fL 6.2-12.0 [facility] Work Phone: Determination of erythrocyte mean corpuscular volume (MCV)on 05-24-2022 MCV (RBC) [Entitic vol] 92.4 fL 80-94 [facility] Work Phone: Hematocrit Auto (Bld) [Volum e fraction]on 05-24-2022 Hematocrit (Bld) [Volume fraction] 39.0 % 40-54 [facility] Work Phone: INR in Blood by Coagulation assayon 05-24-2022 INR Coag (Bld) [Relative time] 0.9 {INR} [facility] Work Phone: Laboratory - Chemistry and C hemistry - challengeon 05-24-2022 CO2 [Moles/Vol] 25.0 mmol/L 21.0-32.0 [facility] Work Phone: [phone] Urea nitrogen/Creatinine [Mass ratio] 25.8 mg/mg 10-20 [facility] Work Phone: Laboratory - Coagulationon 0 05-24-2022 aPTT Coag (Bld) [Time] 25.4 s 24.1-36.2 [facility] Work Phone: PT Coag (PPP) [Time] 11.7 s 11.7-14.[address] [facility] Work Phone: Laboratory - Hematology and Cell countson 05-24-2022 Erythrocyte distribution width (RBC) [Entitic vol] 41.1 fL 35.1-43.9 [facility] Work Phone: Erythrocyte distribution width (RBC) [Ratio] 12.2 % 11.6-14.6 [facility] Work Phone: MCH (RBC) [Entitic mass] 31.8 pg 27.0-32.0 [facility] Work Phone: MCHC Auto (RBC) [Mass/Vol]on 05-24-2022 MCHC (RBC) [Mass/Vol] 34.4 g/dL 32-36 [facility] Work Phone: No Panel Informationon 05-24 Estimated GFR (MDRD) Amer 44 mL/min >60 [facility] Work Phone: Comment on above: GFR Calc Estimated GFR (MDRD) Non-Af Amer 36 mL/min >60 [facility] Work Phone: [phone] Comment on above: Non- GFR Calc Platelets bldon 05-24-2022 Platelets (Bld) [#/Vol] 251 10*3/uL 150-450 [facility] Work Phone: Serum or plasma calcium makeda urement (mass/volume)on 05-24-2022 Calcium [Mass/Vol] 9.6 mg/dL 8.5-10.1 [facility] Work Phone: Serum or plasma creatinine m easurement (mass/volume)on 05-24-2022 Creatinine [Mass/Vol] 1.94 mg/dL 0.70-1.30 [facility] Work Phone: Comment on above: The validity of the calculated GFR & GFRAA in patients over 70 years has not been determined. Clinical correlation is essential. Serum or plasma urea nitroge n measurement (mass/volume)on 05-24-2022 Urea nitrogen [Mass/Vol] 50 mg/dL 7-18 [facility] Work Phone: Thin prep Papanicolaou smear with manual screeningon 05-24-2022 Thin prep Papanicolaou smear with manual screening 9 5-15 [facility] Work Phone: Laboratory - Hematology and Cell countson 03-21-2022 HbA1c (Bld) [Mass fraction] 10.0 % 4.2-6.3 [facility] Work Phone: CNTHERAPYon 02-09-2022 CNTHERAPY OT/PT/Speech Visit (PTWS) -------- COLEMAN DAVIES ([id number]) 1950 M Date Time Provider Department 02/09/22 9:30 AM MARIA ELENA ZHONG PTWS Date Time Provider Department Center 02/09/2022 9:30 AM [id number] ELENA ZHONG PTTYREE [facility] Reason for Visit: PT Discharge [752] 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] Allergies As of Date: 02/09/2022 (Not on File) Date Reviewed: Never Reviewed -------- Normal [facility] CNTHERAPYon 02-02-2022 CNTHERAPY OT/PT/Speech Visit (PTWS) -------- COLEMAN DAVIES ([id number]) 1950 M Date Time Provider Department 02/02/22 9:30 AM MARIA ELENA ZHONG Date Time Provider Department [place] 02/02/2022 9:30 AM [id number] ELENA ZHONG Reason for Visit: PT Progress Note [1596] 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] Allergies As of Date: 02/02/2022 (Not on File) Date Reviewed: Never Reviewed -------- Letter Text Normal [facility] CNTHERAPYon 01-26-2022 CNTHERAPY OT/PT/Speech Visit (PTWS) -------- COLEMAN DAVIES ([id number]) 1950 M Date Time Provider Department 01/26/22 8:45 AM MARIA ELENA ZHONG Date Time Provider Department [place] 01/26/2022 8:45 AM [id number] ELENA URENA Reason for Visit: Physical Therapy [503] 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] Allergies As of Date: 01/26/2022 (Not on File) Date Reviewed: Never Reviewed -------- Normal [facility] CNTHERAPYon 01-19-2022 CNTHERAPY OT/PT/Speech Visit (PTWS) -------- COLEMAN DAVIES ([id number]) 1950 M Date Time Provider Department 01/19/22 9:30 AM MARIA ELENA ZHONG Date Time Provider Department [place] 01/19/2022 9:30 AM [id number] ELENA URENA Reason for Visit: PT Progress Note [1596] 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] Allergies As of Date: 01/19/2022 (Not on File) Date Reviewed: Never Reviewed -------- Normal [facility] Absolute lymphocyte counton 01-08-2022 Lymphocytes Auto (Unsp spec) [#/Vol] 2.13 10*3/uL 0.83-4.51 [facility] Work Phone: Basophil percentageon 2021 Basophil percentage 0 SEEN /hpf [facility] Work Phone: Basophils/100 WBC (Bld) 0.1 % 0-1 [facility] Work Phone: Chloride [Moles/Vol] 101 mmol/L 98-107 [facility] Work Phone: Eosinophils/100 WBC (Bld) 0.5 % 0-5 [facility] Work Phone: Glucose [Mass/Vol] 404 mg/dL 74-106 [facility] Work Phone: Comment on above: Glucose result great er than or equal to 200 mg/dLsuggests DIABETES MELLITUS per A.D.A. criteria. Neutrophils (Bld) [#/Vol] 10.3 10*3/uL 2.0-7.7 [facility] Work Phone: Neutrophils/100 WBC (Bld) 76.7 % 47-70 [facility] Work Phone: Potassium [Moles/Vol] 5.3 mmol/L 3.5-5.1 [facility] Work Phone: Comment on above: Slight Hemolysis, Re sult may be falsely increased. Sodium [Moles/Vol] 133 mmol/L 136-145 [facility] Work Phone: WBC (Bld) [#/Vol] 13.5 10*3/uL 4.4-11.0 [facility] Work Phone: Bilirubin Test strip Ql (U)o n 01-08-2022 Bilirubin Ql (U) Negative Negative [facility] Work Phone: Blood erythrocytes count (nu mber/volume)on 01-08-2022 RBC (Bld) [#/Vol] 5.30 10*6/uL 4.6-6.2 [facility] Work Phone: Blood hemoglobin measurement (mass/volume)on 01-08-2022 Hemoglobin (Bld) [Mass/Vol] 16.5 g/dL 13.0-16.5 [facility] Work Phone: [phone] Blood lymphocytes/100 leukoc yteson 01-08-2022 Lymphocytes/100 WBC (Bld) 15.8 % 19-41 [facility] Work Phone: [phone] Blood monocytes/100 leukocyt eson 01-08-2022 Monocytes/100 WBC (Bld) 6.2 % 0-10 [facility] Work Phone: [phone] Blood platelet mean volumeon 01-08-2022 Platelet mean volume (Bld) [Entitic vol] 10.7 fL 6.2-12.0 [facility] Work Phone: Determination of erythrocyte mean corpuscular volume (MCV)on 01-08-2022 MCV (RBC) [Entitic vol] 90.0 fL 80-94 [facility] Work Phone: Glucose Glucometer (BldC) [M ass/Vol]on 01-08-2022 Glucose [Mass/Vol] 273 mg/dL 74-106 [facility] Work Phone: Comment on above: MANAGEMENT OF PATIEN T CARE PER NURSING PROTOCOL Hematocrit Auto (Bld) [Volum e fraction]on 01-08-2022 Hematocrit (Bld) [Volume fraction] 47.7 % 40-54 [facility] Work Phone: [phone] Ketones Test strip Ql (U)on 01-08-2022 Ketones Ql (U) Negative Negative [facility] Work Phone: [phone] Laboratory - Chemistry and C hemistry - challengeon 01-08-2022 CO2 [Moles/Vol] 22.0 mmol/L 21.0-32.0 [facility] Work Phone: Urea nitrogen/Creatinine [Mass ratio] 38.4 mg/mg 10-20 [facility] Work Phone: [phone] Laboratory - Hematology and Cell countson 01-08-2022 Erythrocyte distribution width (RBC) [Entitic vol] 41.6 fL 35.1-43.9 [facility] Work Phone: [phone] Erythrocyte distribution width (RBC) [Ratio] 12.5 % 11.6-14.6 [facility] Work Phone: [phone] Immature granulocytes/100 WBC (Bld) 0.700 % 0.0-0.9 [facility] Work Phone: [phone] Comment on above: IG% - Immature Granu locytes (promyelocytes, myelocytes and metamyelocytes) > 1% indicates that a LEFT SHIFT is Present. MCH (RBC) [Entitic mass] 31.1 pg 27.0-32.0 [facility] Work Phone: [phone] Nucleated RBC/100 WBC (Bld) [Ratio] 0 % 0-5 [facility] Work Phone: [phone] MCHC Auto (RBC) [Mass/Vol]on 01-08-2022 MCHC (RBC) [Mass/Vol] 34.6 g/dL 32-36 [facility] Work Phone: [phone] Mucus LM Ql (Urine sed)on Mucus Ql (Urine sed) 0 SEEN /hpf [facility] Work Phone: [phone] Nitrite Test strip Ql (U)on 01-08-2022 Nitrite Ql (U) Negative Negative [facility] Work Phone: [phone] Panel Informationon 01-08 Estimated Creatinine Clearance Calc 45.23 ml/min [facility] Work Phone: [phone] Estimated GFR (MDRD) Amer 61 mL/min >60 [facility] Work Phone: [phone] Comment on above: GFR Calc Estimated GFR (MDRD) Non-Af Amer 51 mL/min >60 [facility] Work Phone: [phone] Comment on above: Non- GFR Calc Platelets bldon 01-08-2022 Platelets (Bld) [#/Vol] 329 10*3/uL 150-450 [facility] Work Phone: Protein Test strip Ql (U)on 01-08-2022 Protein Ql (U) 15 mg/dl Negative [facility] Work Phone: Serum or plasma calcium makeda urement (mass/volume)on 01-08-2022 Calcium [Mass/Vol] 10.6 mg/dL 8.5-10.1 [facility] Work Phone: [phone] Serum or plasma creatinine m easurement (mass/volume)on 01-08-2022 Creatinine [Mass/Vol] 1.46 mg/dL 0.70-1.30 [facility] Work Phone: Comment on above: The validity of the calculated GFR & GFRAA in patients over 70 years has not been determined. Clinical correlation is essential. Serum or plasma urea nitroge n measurement (mass/volume)on 01-08-2022 Urea nitrogen [Mass/Vol] 56 mg/dL 7-18 [facility] Work Phone: Squamous epithelial cells de tection in urine sediment by light microscopyon 01-08-2022 Epithelial cells.squamous LM Ql (Urine sed) 0 SEEN /hpf [facility] Work Phone: Thin prep Papanicolaou smear with manual screeningon 01-08-2022 Thin prep Papanicolaou smear with manual screening 10 5-15 [facility] Work Phone: [phone] Urine blood detectionon 12-16 RBC Ql (U) Negative Negative [facility] Work Phone: [phone] RBC Ql (U) 0 SEEN /hpf [facility] Work Phone: [phone] Urine clarityon 01-08-2022 Clarity (U) Clear Clear [facility] Work Phone: [phone] Urine color determinationon 01-08-2022 Color (U) Yellow Yellow [facility] Work Phone: Urine glucose detectionon Glucose Ql (U) 1000 mg/dl Normal [facility] Work Phone: Urine leukocyte esterase det ection by dipstickon 01-08-2022 Leukocyte esterase Test strip Ql (U) Negative Negative [facility] Work Phone: Urine pHon 01-08-2022 pH (U) 6.0 [pH] [facility] Work Phone: Urine sediment bacteria coun t by microscopy (number/high power field)on 01-08-2022 Bacteria LM.HPF (Urine sed) [#/Area] 0 /[HPF] None Seen [facility] Work Phone: Urine specific gravity measu rementon 01-08-2022 Specific gravity (U) [Rel density] 1.015 [facility] Work Phone: Urobilinogen Auto test strip Ql (U)on 01-08-2022 Urobilinogen Ql (U) Normal mg/dl Normal [facility] Work Phone: Absolute lymphocyte counton 01-04-2022 Lymphocytes Auto (Unsp spec) [#/Vol] 1.29 10*3/uL 0.83-4.51 [facility] Work Phone: Basophil percentageon 2021 Basophils/100 WBC (Bld) 0.1 % 0-1 [facility] Work Phone: Chloride [Moles/Vol] 103 mmol/L 98-107 [facility] Work Phone: Eosinophils/100 WBC (Bld) 0.1 % 0-5 [facility] Work Phone: Glucose [Mass/Vol] 228 mg/dL 74-106 [facility] Work Phone: Comment on above: Glucose result great er than or equal to 200 mg/dLsuggests DIABETES MELLITUS per A.D.A. criteria. Neutrophils (Bld) [#/Vol] 10.0 10*3/uL 2.0-7.7 [facility] Work Phone: Neutrophils/100 WBC (Bld) 78.8 % 47-70 [facility] Work Phone: Potassium [Moles/Vol] 4.3 mmol/L 3.5-5.1 [facility] Work Phone: [phone] Sodium [Moles/Vol] 137 mmol/L 136-145 [facility] Work Phone: [phone] WBC (Bld) [#/Vol] 12.7 10*3/uL 4.4-11.0 [facility] Work Phone: Blood erythrocytes count (nu mber/volume)on 01-04-2022 RBC (Bld) [#/Vol] 5.10 10*6/uL 4.6-6.2 [facility] Work Phone: Blood hemoglobin measurement (mass/volume)on 01-04-2022 Hemoglobin (Bld) [Mass/Vol] 15.7 g/dL 13.0-16.5 [facility] Work Phone: Blood lymphocytes/100 leukoc yteson 01-04-2022 Lymphocytes/100 WBC (Bld) 10.1 % 19-41 [facility] Work Phone: [phone] Blood monocytes/100 leukocyt eson 01-04-2022 Monocytes/100 WBC (Bld) 10.3 % 0-10 [facility] Work Phone: Blood platelet mean volumeon 01-04-2022 Platelet mean volume (Bld) [Entitic vol] 10.1 fL 6.2-12.0 [facility] Work Phone: Determination of erythrocyte mean corpuscular volume (MCV)on 01-04-2022 MCV (RBC) [Entitic vol] 89.4 fL 80-94 [facility] Work Phone: Glucose Glucometer (BldC) [M ass/Vol]on 01-04-2022 Glucose [Mass/Vol] 433 mg/dL 74-106 [facility] Work Phone: Comment on above: MANAGEMENT OF PATIEN T CARE PER NURSING PROTOCOL Hematocrit Auto (Bld) [Volum e fraction]on 04-21-2022 Hematocrit (Bld) [Volume fraction] 45.6 % 40-54 [facility] Work Phone: [phone] Laboratory - Chemistry and C hemistry - challengeon 01-04-2022 CO2 [Moles/Vol] 27.0 mmol/L 21.0-32.0 [facility] Work Phone: [phone] Urea nitrogen/Creatinine [Mass ratio] 30.5 mg/mg 10-20 [facility] Work Phone: [phone] Laboratory - Hematology and Cell countson 01-04-2022 Erythrocyte distribution width (RBC) [Entitic vol] 40.7 fL 35.1-43.9 [facility] Work Phone: [phone] Erythrocyte distribution width (RBC) [Ratio] 12.3 % 11.6-14.6 [facility] Work Phone: [phone] Immature granulocytes/100 WBC (Bld) 0.600 % 0.0-0.9 [facility] Work Phone: [phone] Comment on above: IG% - Immature Granu locytes (promyelocytes, myelocytes and metamyelocytes) > 1% indicates that a LEFT SHIFT is Present. MCH (RBC) [Entitic mass] 30.8 pg 27.0-32.0 [facility] Work Phone: [phone] Nucleated RBC/100 WBC (Bld) [Ratio] 0 % 0-5 [facility] Work Phone: [phone] MCHC Auto (RBC) [Mass/Vol]on 01-04-2022 MCHC (RBC) [Mass/Vol] 34.4 g/dL 32-36 [facility] Work Phone: [phone] No Panel Informationon 01-04 Estimated Creatinine Clearance Calc 51.28 ml/min [facility] Work Phone: [phone] Estimated GFR (MDRD) Amer 69 mL/min >60 [facility] Work Phone: [phone] Comment on above: GFR Calc Estimated GFR (MDRD) Non-Af Amer 57 mL/min >60 [facility] Work Phone: [phone] Comment on above: Non- GFR Calc Platelets bldon 04-21-2022 Platelets (Bld) [#/Vol] 321 10*3/uL 150-450 [facility] Work Phone: Serum or plasma calcium makeda urement (mass/volume)on 01-04-2022 Calcium [Mass/Vol] 9.0 mg/dL 8.5-10.1 [facility] Work Phone: Serum or plasma creatinine m easurement (mass/volume)on 01-04-2022 Creatinine [Mass/Vol] 1.31 mg/dL 0.70-1.30 [facility] Work Phone: Comment on above: The validity of the calculated GFR & GFRAA in patients over 70 years has not been determined. Clinical correlation is essential. Serum or plasma urea nitroge n measurement (mass/volume)on 01-04-2022 Urea nitrogen [Mass/Vol] 40 mg/dL 7-18 [facility] Work Phone: Thin prep Papanicolaou smear with manual screeningon 01-04-2022 Thin prep Papanicolaou smear with manual screening 7 5-15 [facility] Work Phone: Whole blood hemoglobin A1c/t otal hemoglobin ratio (mass fraction)on 01-03-2022 HbA1c (Bld) [Mass fraction] 11.0 % 3.8-5.6 [facility] Work Phone: Comment on above: Normal < 5.7 % Predi abetic 5.7 - 6.4 % Diabetic >or= 6.5 % Please note range changes. Absolute lymphocyte counton 01-02-2022 Lymphocytes Auto (Unsp spec) [#/Vol] 1.87 10*3/uL 0.83-4.51 [facility] Work Phone: Basophil percentageon 2021 Lactate [Moles/Vol] 1.5 mmol/L 0.4-2.0 [facility] Work Phone: Basophil percentage 0 SEEN /hpf [facility] Work Phone: Basophils/100 WBC (Bld) 0.2 % 0-1 [facility] Work Phone: Bilirubin [Mass/Vol] 0.70 mg/dL 0.20-1.00 [facility] Work Phone: [phone] Comment on above: For patients on eltr ombopag therapy, use of Dimension Sarah TBIL is not recommended. Chloride [Moles/Vol] 91 mmol/L 98-107 [facility] Work Phone: Eosinophils/100 WBC (Bld) 0.0 % 0-5 [facility] Work Phone: [phone] Glucose [Mass/Vol] 500 mg/dL 74-106 [facility] Work Phone: Comment on above: Critical Result(s) C alled at: 07:58:34 01/02/2022 by: Frank Silva RN (ER). Results read back by same.Glucose result greater than or equal to 200 mg/dLsuggests DIABETES MELLITUS per A.D.A. criteria. Lactate [Moles/Vol] 3.8 mmol/L 0.4-2.0 [facility] Work Phone: Comment on above: Critical Result(s) C alled at: 08:00:34 01/02/2022 by: Frank Silva RN (ER). Results read back by same. Neutrophils (Bld) [#/Vol] 13.3 10*3/uL 2.0-7.7 [facility] Work Phone: Neutrophils/100 WBC (Bld) 80.2 % 47-70 [facility] Work Phone: [phone] Potassium [Moles/Vol] 5.5 mmol/L 3.5-5.1 [facility] Work Phone: [phone] Protein [Mass/Vol] 8.9 g/dL 6.4-8.2 [facility] Work Phone: [phone] Sodium [Moles/Vol] 130 mmol/L 136-145 [facility] Work Phone: [phone] WBC (Bld) [#/Vol] 16.6 10*3/uL 4.4-11.0 [facility] Work Phone: Bilirubin Test strip Ql (U)o n 01-02-2022 Bilirubin Ql (U) Negative Negative [facility] Work Phone: Blood erythrocytes count (nu mber/volume)on 01-02-2022 RBC (Bld) [#/Vol] 5.53 10*6/uL 4.6-6.2 [facility] Work Phone: Blood hemoglobin measurement (mass/volume)on 01-02-2022 Hemoglobin (Bld) [Mass/Vol] 17.3 g/dL 13.0-16.5 [facility] Work Phone: Blood lymphocytes/100 leukoc yteson 01-02-2022 Lymphocytes/100 WBC (Bld) 11.3 % 19-41 [facility] Work Phone: Blood monocytes/100 leukocyt eson 01-02-2022 Monocytes/100 WBC (Bld) 7.6 % 0-10 [facility] Work Phone: Blood platelet mean volumeon 01-02-2022 Platelet mean volume (Bld) [Entitic vol] 10.0 fL 6.2-12.0 [facility] Work Phone: Determination of erythrocyte mean corpuscular volume (MCV)on 01-02-2022 MCV (RBC) [Entitic vol] 88.8 fL 80-94 [facility] Work Phone: Glucose Glucometer (BldC) [M ass/Vol]on 01-02-2022 Glucose [Mass/Vol] 334 mg/dL 74-106 [facility] Work Phone: Comment on above: MANAGEMENT OF PATIEN T CARE PER NURSING PROTOCOL HCO3 (BldA) [Moles/Vol]on HCO3 (Bld) [Moles/Vol] 22 mmol/L 22-26 [facility] Work Phone: Hematocrit Auto (Bld) [Volum e fraction]on 01-02-2022 Hematocrit (Bld) [Volume fraction] 49.1 % 40-54 [facility] Work Phone: [phone] Ketones Test strip Ql (U)on 01-02-2022 Ketones Ql (U) 15 mg/dl Negative [facility] Work Phone: [phone] Laboratory - Chemistry and C hemistry - challengeon 01-02-2022 CO2 [Moles/Vol] 23 mmol/L 23-33 [facility] Work Phone: [phone] ALP [Catalytic activity/Vol] 77 U/L 45-117 [facility] Work Phone: [phone] ALT [Catalytic activity/Vol] 52 U/L 16-61 [facility] Work Phone: [phone] CO2 [Moles/Vol] 24.0 mmol/L 21.0-32.0 [facility] Work Phone: [phone] Globulin (S) [Mass/Vol] 4.5 g/dL 2.2-4.2 [facility] Work Phone: [phone] Urea nitrogen/Creatinine [Mass ratio] 37.3 mg/mg 10-20 [facility] Work Phone: [phone] Laboratory - Hematology and Cell countson 01-02-2022 Erythrocyte distribution width (RBC) [Entitic vol] 40.9 fL 35.1-43.9 [facility] Work Phone: [phone] Erythrocyte distribution width (RBC) [Ratio] 12.5 % 11.6-14.6 [facility] Work Phone: [phone] Immature granulocytes/100 WBC (Bld) 0.700 % 0.0-0.9 [facility] Work Phone: [phone] Comment on above: IG% - Immature Granu locytes (promyelocytes, myelocytes and metamyelocytes) > 1% indicates that a LEFT SHIFT is Present. MCH (RBC) [Entitic mass] 31.3 pg 27.0-32.0 [facility] Work Phone: [phone] Nucleated RBC/100 WBC (Bld) [Ratio] 0 % 0-5 [facility] Work Phone: Laboratory - Microbiology an d Antimicrobial susceptibilityon 01-02-2022 Bacteria identified Cx Nom (Bld) No growth in 5 days. [facility] Work Phone: MCHC Auto (RBC) [Mass/Vol]on 01-02-2022 MCHC (RBC) [Mass/Vol] 35.2 g/dL 32-36 [facility] Work Phone: Mucus LM Ql (Urine sed)on Mucus Ql (Urine sed) 0 SEEN /hpf [facility] Work Phone: Nitrite Test strip Ql (U)on 01-02-2022 Nitrite Ql (U) Negative Negative [facility] Work Phone: No Panel Informationon 01-02 Bed Mix Venous Bld PCO2 at Pat Temp 35.3 mmHg 41-51 [facility] Work Phone: Blood Gas Specimen Type JUDY [facility] Work Phone: Venous Blood Base Excess -3 mmol/L -1.0-3.5 [facility] Work Phone: SARS-CoV-2 & FLU Antigen (Rapid) [facility] Work Phone: Estimated Creatinine Clearance Calc 33.64 ml/min [facility] Work Phone: Estimated GFR (MDRD) Amer 42 mL/min >60 [facility] Work Phone: Comment on above: GFR Calc Estimated GFR (MDRD) Non-Af Amer 34 mL/min >60 [facility] Work Phone: Comment on above: Non- GFR Calc Troponin I High Sensitivity 7 pg/mL 3.0-78.0 [facility] Work Phone: Comment on above: Please Note: New Lynette t Units and Gender Specific Reference Ranges. For more information see Policy Stat Procedure Sarah High Sensitivity Troponin (TNIH) and attachments. PO2 venouson 01-02-2022 Oxygen (BldV) [Partial pressure] 25 mm[Hg] 25-40 [facility] Work Phone: Platelets bldon 01-02-2022 Platelets (Bld) [#/Vol] 417 10*3/uL 150-450 [facility] Work Phone: Protein Test strip Ql (U)on 01-02-2022 Protein Ql (U) 15 mg/dl Negative [facility] Work Phone: Serum or plasma acetone makeda urement (mass/volume)on 01-02-2022 Acetone [Mass/Vol] Negative NEG [facility] Work Phone: Serum or plasma albumin makeda urement (mass/volume)on 01-02-2022 Albumin [Mass/Vol] 4.4 g/dL 3.2-5.0 [facility] Work Phone: Serum or plasma albumin/glob ulin mass ratioon 01-02-2022 Albumin/Globulin [Mass ratio] 1.0 {ratio} 0.9-2.4 [facility] Work Phone: Serum or plasma calcium makeda urement (mass/volume)on 01-02-2022 Calcium [Mass/Vol] 11.1 mg/dL 8.5-10.1 [facility] Work Phone: Serum or plasma creatinine m easurement (mass/volume)on 01-02-2022 Creatinine [Mass/Vol] 2.04 mg/dL 0.70-1.30 [facility] Work Phone: Comment on above: The validity of the calculated GFR & GFRAA in patients over 70 years has not been determined. Clinical correlation is essential. Serum or plasma urea nitroge n measurement (mass/volume)on 01-02-2022 Urea nitrogen [Mass/Vol] 76 mg/dL 7-18 [facility] Work Phone: Squamous epithelial cells de tection in urine sediment by light microscopyon 01-02-2022 Epithelial cells.squamous LM Ql (Urine sed) 0-5 SEEN /hpf [facility] Work Phone: Thin prep Papanicolaou smear with manual screeningon 01-02-2022 Thin prep Papanicolaou smear with manual screening 14 U/L 15-37 [facility] Work Phone: Thin prep Papanicolaou smear with manual screening 15 5-15 [facility] Work Phone: Urine blood detectionon 12-15 RBC Ql (U) Negative Negative [facility] Work Phone: RBC Ql (U) 0 SEEN /hpf [facility] Work Phone: Urine clarityon 01-02-2022 Clarity (U) Sl. Cloudy Clear [facility] Work Phone: Urine color determinationon 01-02-2022 Color (U) Yellow Yellow [facility] Work Phone: Urine glucose detectionon Glucose Ql (U) 1000 mg/dl Normal [facility] Work Phone: Urine leukocyte esterase det ection by dipstickon 01-02-2022 Leukocyte esterase Test strip Ql (U) Negative Negative [facility] Work Phone: Urine pHon 01-02-2022 pH (U) 6.0 [pH] [facility] Work Phone: Urine sediment bacteria coun t by microscopy (number/high power field)on 01-02-2022 Bacteria LM.HPF (Urine sed) [#/Area] 0 /[HPF] None Seen [facility] Work Phone: Urine specific gravity measu rementon 01-02-2022 Specific gravity (U) [Rel density] 1.015 [facility] Work Phone: Urobilinogen Auto test strip Ql (U)on 01-02-2022 Urobilinogen Ql (U) Normal mg/dl Normal [facility] Work Phone: Vital signson 01-02-2022 Oxygen saturation in Blood 45 % 50-70 [facility] Work Phone: pH measurementon 01-02-2022 pH (Unsp spec) 7.39 [pH] 7.32-7.42 [facility] Work Phone: CNTHERAPYon 12-28-2021 CNTHERAPY OT/PT/Speech Visit (PTWS) -------- COLEMAN DAVIES ([id number]) 1950 M Date Time Provider Department 12/28/21 11:00 AM MARIA ELENA ZHONG PTTYREE Date Time Provider Department Center 12/28/2021 11:00 AM [id number]-UMARIA ELENA ZHONG PTTYREE [facility] Reason for Visit: PT Eval [747] 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] Allergies As of Date: 12/28/2021 (Not on File) Date Reviewed: Never Reviewed -------- Letter Text Normal [facility] Clinical Summary: Irish morgan 12-27-2021 MC75 OP Visit Invalid Interpretation Code [facility] Work Phone: Office Visit: visi t with practice, Rm: 42on 12-27-2021 NEGATED: Highlighted rowMRI (magnetic resonance imaging) history of the right shoulder on 03/07/2020 at [facility] Invalid Interpretation Code [facility] Work Phone: NEGATED: Highlighted Kaci smoking status Tobacco smoking status Invalid Interpretation Code [facility] Work Phone: No Panel Informationon 09-04 Hepatitis B Surface Antibody Non-Reactive [facility] Work Phone: Comment on above: Non Reactive: Incons istent with immunity less than <10 mIU/mL Reactive: Consistent with immunity greater than or equal to 10 mIU/mL Rubella IgG Antibody Reactive Nonreactive [facility] Work Phone: Comment on above: Antibody Results Int erpretation of Immune Status Non Reactive Presumed Non-Immune Equivocal Equivocal Reactive Presumed Immune Serum Varicella zoster virus IgG antibody assay by immunoassay (units/volume)on 09-04-2021 VZV IgG IA Qn (S) > 4000 index Immune >165 [facility] Work Phone: Comment on above: Negative <135 Equivo elder 135 - 165 Positive >165A positive result generally indicates exposure to thepathogen or administration of specific immunoglobulins,but it is not indication of active infection or stageof disease. Serum measles virus IgG anti body assay (units/volume)on 09-04-2021 MeV IgG Qn (S) 113.0 AU/mL Immune >16.4 [facility] Work Phone: Comment on above: Negative <13.5 Equiv ocal 13.5 - 16.4 Positive >16.4Presence of antibodies to Rubeola is presumptive evidenceof immunity except when acute infection is suspected.Performed at: [address] [id number] Director: Ciaran Sethi PhD, Phone: [phone] Serum mumps virus IgG antibo dy assay (units/volume)on 09-04-2021 MuV IgG Qn (S) < 9.0 AU/mL Immune >10.9 [facility] Work Phone: Comment on above: Negative <9.0 Equivo elder 9.0 - 10.9 Positive >10.9A positive result generally indicates past exposure toMumps virus or previous vaccination. Vital Signs Date Time Vital Sign Value Performing Clinician Facility 05-12-2025 15:32-0400 Body temperature 98.2 [degF] Dr. Briseyda Sinclair MD Work Phone: [facility] 05-12-2025 15:32-0400 Body weight 74.[address] Briseyda Sinclair MD Work Phone: [facility] 05-12-2025 15:32-0400 Diastolic blood pressure 71 mm[Hg] Dr. Briesyda Sinclair MD Work Phone: [facility] 05-12-2025 15:32-0400 Heart rate 79 /min Dr. Briseyda Sinclair MD Work Phone: [facility] 05-12-2025 15:32-0400 Respiratory rate 18 /min Dr. Briseyda Sinclair MD Work Phone: [facility] 05-12-2025 15:32-0400 SaO2% (BldA) [Mass fraction] 100 % Dr. Briseyda Sinclair MD Work Phone: [facility] 05-12-2025 15:32-0400 Systolic blood pressure 144 mm[Hg] Dr. Briseyda Sinclair MD Work Phone: [facility] 05-03-2025 13:52-0400 Body height 182.[address] Briseyda Sinclair MD Work Phone: [facility] 05-03-2025 13:52-0400 Body mass index (BMI) [Ratio] 22.2 kg/m2 Dr. Briseyda Sinclair MD Work Phone: [facility] 05-03-2025 13:52-0400 Body temperature 98 [degF] Dr. Briseyda Sinclair MD Work Phone: [facility] 05-03-2025 13:52-0400 Body weight 74.[address] Briseyda Sinclair MD Work Phone: [facility] 05-03-2025 13:52-0400 Diastolic blood pressure 64 mm[Hg] Dr. Briseyda Sinclair MD Work Phone: [facility] 05-03-2025 13:52-0400 Heart rate 76 /min Dr. Briseyda Sinclair MD Work Phone: [facility] 05-03-2025 13:52-0400 Respiratory rate 16 /min Dr. Briseyda Sinclair MD Work Phone: [facility] 05-03-2025 13:52-0400 SaO2% (BldA) [Mass fraction] 98 % Dr. Briseyda Sinclair MD Work Phone: [facility] 05-03-2025 13:52-0400 Systolic blood pressure 135 mm[Hg] Dr. Briseyda Sinclair MD Work Phone: [facility] 04-28-2025 14:10-0400 Body height 182.[address] Briseyda Sinclair MD Work Phone: [facility] 04-28-2025 14:10-0400 Body mass index (BMI) [Ratio] 22.1 kg/m2 Dr. Briseyda Sinclair MD Work Phone: [facility] 04-28-2025 14:10-0400 Body weight 73.[address] Briseyda Sinclair MD Work Phone: [facility] 04-28-2025 14:10-0400 Diastolic blood pressure 60 mm[Hg] Dr. Briseyda Sinclair MD Work Phone: [facility] 04-28-2025 14:10-0400 Heart rate 79 /min Dr. Briseyda Sinclair MD Work Phone: [facility] 04-28-2025 14:10-0400 Inhaled oxygen flow rate 95 L/min Dr. Briseyda Sinclair MD Work Phone: [facility] 04-28-2025 14:10-0400 Respiratory rate 18 /min Dr. Briseyda Sinclair MD Work Phone: [facility] 04-28-2025 14:10-0400 Systolic blood pressure 96 mm[Hg] Dr. Briseyda Sinclair MD Work Phone: [facility] 04-12-2025 12:59-0400 Body height 182.[address] Briseyda Sinclair MD Work Phone: [facility] 04-12-2025 12:59-0400 Body mass index (BMI) [Ratio] 22.1 kg/m2 Dr. Briseyda Sinclair MD Work Phone: [facility] 04-12-2025 12:59-0400 Body temperature 98.2 [degF] Dr. Briseyda Sinclair MD Work Phone: [facility] 04-12-2025 12:59-0400 Body weight 74.[address] Briseyda Sinclair MD Work Phone: [facility] 04-12-2025 12:59-0400 Diastolic blood pressure 74 mm[Hg] Dr. Briseyda Sinclair MD Work Phone: [facility] 04-12-2025 12:59-0400 Heart rate 87 /min Dr. Briseyda Sinclair MD Work Phone: [facility] 04-12-2025 12:59-0400 Respiratory rate 16 /min Dr. Briseyda Sinclair MD Work Phone: [facility] 04-12-2025 12:59-0400 SaO2% (BldA) [Mass fraction] 87 % Dr. Briseyda Sinclair MD Work Phone: [facility] 04-12-2025 12:59-0400 Systolic blood pressure 124 mm[Hg] Dr. Briseyda Sinclair MD Work Phone: [facility] 03-29-2025 10:16-0400 Body temperature 97.8 [degF] Dr. Briseyda Sinclair MD Work Phone: [facility] 03-29-2025 10:16-0400 Diastolic blood pressure 73 mm[Hg] Dr. Briseyda Sinclair MD Work Phone: [facility] 03-29-2025 10:16-0400 Heart rate 75 /min Dr. Briseyda Sinclair MD Work Phone: [facility] 03-29-2025 10:16-0400 Respiratory rate 14 /min Dr. Briseyda Sinclair MD Work Phone: [facility] 03-29-2025 10:16-0400 SaO2% (BldA) [Mass fraction] 98 % Dr. Briseyda Sinclair MD Work Phone: [facility] 03-29-2025 10:16-0400 Systolic blood pressure 151 mm[Hg] Dr. Briseyda Sinclair MD Work Phone: [facility] 03-29-2025 06:20-0400 Body height 182.[address] Briseyda Sinclair MD Work Phone: [facility] 03-29-2025 06:20-0400 Body mass index (BMI) [Ratio] 21.6 kg/m2 Dr. Briseyda Sinclair MD Work Phone: [facility] 03-29-2025 06:20-0400 Body weight 72.[address] Briseyda Sinclair MD Work Phone: [facility] 03-04-2025 12:24-0400 Body temperature 97.81 [degF] Simba Blackman MD Work Phone: [facility] 03-04-2025 12:24-0400 Body weight 75.66 kg Simba Blackman MD Work Phone: [facility] 03-04-2025 12:24-0400 Diastolic blood pressure 69 mm[Hg] Simba Blackman MD Work Phone: [facility] 03-04-2025 12:24-0400 Heart rate 80 /min Simba Blackman MD Work Phone: [facility] 03-04-2025 12:24-0400 Systolic blood pressure 121 mm[Hg] Simba Blackman MD Work Phone: [facility] 02-11-2025 13:27-0400 Body height 182.[address] Briseyda Sinclair MD Work Phone: [facility] 02-11-2025 13:27-0400 Body mass index (BMI) [Ratio] 23.1 kg/m2 Dr. Briseyda Sinclair MD Work Phone: [facility] 02-11-2025 13:27-0400 Body temperature 98.2 [degF] Dr. Briseyda Sinclair MD Work Phone: [facility] 02-11-2025 13:27-0400 Body weight 77.[address] Briseyda Sinclair MD Work Phone: [facility] 02-11-2025 13:27-0400 Diastolic blood pressure 67 mm[Hg] Dr. Briseyda Sinclair MD Work Phone: [facility] 02-11-2025 13:27-0400 Heart rate 82 /min Dr. Briseyda Sinclair MD Work Phone: [facility] 02-11-2025 13:27-0400 Respiratory rate 15 /min Dr. Briseyda Sinclair MD Work Phone: [facility] 02-11-2025 13:27-0400 SaO2% (BldA) [Mass fraction] 98 % Dr. Briseyda Sinclair MD Work Phone: [facility] 02-11-2025 13:27-0400 Systolic blood pressure 126 mm[Hg] Dr. Briseyda Sinclair MD Work Phone: [facility] 02-06-2025 11:42-0400 Body mass index (BMI) [Ratio] 22.5 kg/m2 Dr. Briseyda Sinclair MD Work Phone: [facility] 02-06-2025 11:42-0400 Body temperature 98.6 [degF] Dr. Briseyda Sinclair MD Work Phone: [facility] 02-06-2025 11:42-0400 Body weight 75.[address] Briseyda Sinclair MD Work Phone: [facility] 02-06-2025 11:42-0400 Diastolic blood pressure 80 mm[Hg] Dr. Briseyda Sinclair MD Work Phone: [address]24-2025 11:42-0400 Heart rate 74 /min Dr. Briseyda Sinclair MD Work Phone: [facility] 02-06-2025 11:42-0400 Respiratory rate 16 /min Dr. Briseyda Sinclair MD Work Phone: [facility] 02-06-2025 11:42-0400 SaO2% (BldA) [Mass fraction] 98 % Dr. Briseyda Sinclair MD Work Phone: [facility] 02-06-2025 11:42-0400 Systolic blood pressure 124 mm[Hg] Dr. Briseyda Sinclair MD Work Phone: [facility] 02-01-2025 13:49-0400 Body height 182.[address] Briseyda Sinclair MD Work Phone: [facility] 02-01-2025 13:49-0400 Body mass index (BMI) [Ratio] 22.8 kg/m2 Dr. Briseyda Sinclair MD Work Phone: [facility] 02-01-2025 13:49-0400 Body temperature 98.6 [degF] Dr. Briseyda Sinclair MD Work Phone: [facility] 02-01-2025 13:49-0400 Body weight 76.[address] Briseyda Sinclair MD Work Phone: [facility] 02-01-2025 13:49-0400 Diastolic blood pressure 72 mm[Hg] Dr. Briseyda Sinclair MD Work Phone: [facility] 02-01-2025 13:49-0400 Heart rate 78 /min Dr. Briseyda Sinclair MD Work Phone: [facility] 02-01-2025 13:49-0400 Respiratory rate 16 /min Dr. Briseyda Sinclair MD Work Phone: [facility] 02-01-2025 13:49-0400 SaO2% (BldA) [Mass fraction] 98 % Dr. Briseyda Sinclair MD Work Phone: [facility] 02-01-2025 13:49-0400 Systolic blood pressure 138 mm[Hg] Dr. Briseyda Sinclair MD Work Phone: [facility] 01-27-2025 14:53-0400 Body height 182.[address] Briseyda Sinclair MD Work Phone: [facility] 01-27-2025 14:53-0400 Body mass index (BMI) [Ratio] 23.1 kg/m2 Dr. Briseyda Sinclair MD Work Phone: [facility] 01-27-2025 14:53-0400 Body temperature 98.4 [degF] Dr. Briseyda Sinclair MD Work Phone: [facility] 01-27-2025 14:53-0400 Body weight 77.[address] Briseyda Sinclair MD Work Phone: [facility] 01-27-2025 14:53-0400 Diastolic blood pressure 61 mm[Hg] Dr. Briseyda Sinclair MD Work Phone: [facility] 01-27-2025 14:53-0400 Heart rate 75 /min Dr. Briseyda Sinclair MD Work Phone: [facility] 01-27-2025 14:53-0400 Respiratory rate 16 /min Dr. Briseyda Sinclair MD Work Phone: [facility] 01-27-2025 14:53-0400 SaO2% (BldA) [Mass fraction] 96 % Dr. Briseyda Sinclair MD Work Phone: [facility] 01-27-2025 14:53-0400 Systolic blood pressure 115 mm[Hg] Dr. Briseyda Sinclair MD Work Phone: [facility] 01-14-2025 11:50-0400 Body temperature 97.7 [degF] Dr. Briseyda Sinclair MD Work Phone: [facility] 01-14-2025 11:50-0400 Diastolic blood pressure 71 mm[Hg] Dr. Briseyda Sinclair MD Work Phone: [facility] 01-14-2025 11:50-0400 Heart rate 81 /min Dr. Briseyda Sinclair MD Work Phone: [facility] 01-14-2025 11:50-0400 Respiratory rate 16 /min Dr. Briseyda Sinclair MD Work Phone: [facility] 01-14-2025 11:50-0400 SaO2% (BldA) [Mass fraction] 96 % Dr. Briseyda Sinclair MD Work Phone: [facility] 01-14-2025 11:50-0400 Systolic blood pressure 150 mm[Hg] Dr. Briseyda Sinclair MD Work Phone: [facility] 01-14-2025 00:39-0400 Body mass index (BMI) [Ratio] 21.6 kg/m2 Dr. Briseyda Sinclair MD Work Phone: [facility] 01-13-2025 15:51-0400 Body weight 72.[address] Briseyda Sinclair MD Work Phone: [facility] 11-09-2024 13:21-0500 Body height 182.[address] Briseyda Sinclair MD Work Phone: [facility] 11-09-2024 13:21-0500 Body mass index (BMI) [Ratio] 23.4 kg/m2 Dr. Briseyda Sinclair MD Work Phone: [facility] 11-09-2024 13:21-0500 Body weight 78.[address] Briseyda Sinclair MD Work Phone: [facility] 11-09-2024 13:21-0500 Diastolic blood pressure 87 mm[Hg] Dr. Briseyda Sinclair MD Work Phone: [facility] 11-09-2024 13:21-0500 Heart rate 77 /min Dr. Briseyda Sinclair MD Work Phone: [facility] 11-09-2024 13:21-0500 Respiratory rate 16 /min Dr. Briseyda Sinclair MD Work Phone: [facility] 11-09-2024 13:21-0500 SaO2% (BldA) [Mass fraction] 96 % Dr. Briseyda Sinclair MD Work Phone: [facility] 11-09-2024 13:21-0500 Systolic blood pressure 155 mm[Hg] Dr. Briseyda Sinclair MD Work Phone: [facility] 08-20-2024 08:24-0500 Body mass index (BMI) [Ratio] 23.8 kg/m2 Dr. Briseyda Sinclair MD Work Phone: [facility] 08-20-2024 08:24-0500 Body weight 79.[address] Briseyda Sinclair MD Work Phone: [facility] 08-10-2024 13:34-0500 Body mass index (BMI) [Ratio] 23.5 kg/m2 Dr. Briseyda Sinclair MD Work Phone: [facility] 08-10-2024 13:34-0500 Body temperature 98 [degF] Dr. Briseyda Sinclair MD Work Phone: [facility] 08-10-2024 13:34-0500 Body weight 78.[address] Briseyda Sinclair MD Work Phone: [facility] 08-10-2024 13:34-0500 Diastolic blood pressure 76 mm[Hg] Dr. Briseyda Sinclair MD Work Phone: [facility] 08-10-2024 13:34-0500 Heart rate 80 /min Dr. Briseyda Sinclair MD Work Phone: [facility] 08-10-2024 13:34-0500 Respiratory rate 16 /min Dr. Briseyda Sinclair MD Work Phone: [facility] 08-10-2024 13:34-0500 SaO2% (BldA) [Mass fraction] 96 % Dr. Briseyda Sinclair MD Work Phone: [facility] 08-10-2024 13:34-0500 Systolic blood pressure 124 mm[Hg] Dr. Briseyda Sinclair MD Work Phone: [facility] 12-03-2023 07:40-0400 Body temperature 96.6 [degF] Dr. Briseyda Sinclair Work Phone: [facility] 12-03-2023 07:40-0400 Diastolic blood pressure 57 mm[Hg] Dr. Briseyda Sinclair Work Phone: [facility] 12-03-2023 07:40-0400 Heart rate 66 /min Dr. Briseyda Sinclair Work Phone: [facility] 12-03-2023 07:40-0400 Respiratory rate 18 /min Dr. Briseyda Sinclair Work Phone: [facility] 12-03-2023 07:40-0400 SaO2% (BldA) [Mass fraction] 96 % Dr. Briseyda Sinclair Work Phone: [facility] 12-03-2023 07:40-0400 Systolic blood pressure 108 mm[Hg] Dr. Briseyda Sinclair Work Phone: [facility] 12-03-2023 07:24-0400 Inhaled oxygen flow rate 2 L/min Dr. Briseyda Sinclair Work Phone: [facility] 12-03-2023 06:00-0400 Body height 182.[address] Briseyda Sinclair Work Phone: [facility] 12-03-2023 06:00-0400 Body mass index (BMI) [Ratio] 21.7 kg/m2 Dr. Briseyda Sinclair Work Phone: [facility] 12-03-2023 06:00-0400 Body weight 72.[address] Briseyda Sinclair Work Phone: [facility] 11-22-2023 13:41-0500 Body height 182.[address] Briseyda Sinclair Work Phone: [facility] 11-22-2023 13:41-0500 Body mass index (BMI) [Ratio] 23.3 kg/m2 Dr. Briseyda Sinclair Work Phone: [facility] 11-22-2023 13:41-0500 Body weight 78.[address] Briseyda Sinclair Work Phone: [facility] 11-22-2023 13:41-0500 Diastolic blood pressure 76 mm[Hg] Dr. Briseyda Sinclair Work Phone: [facility] 11-22-2023 13:41-0500 Respiratory rate 18 /min Dr. Briseyda Sinclair Work Phone: [facility] 11-22-2023 13:41-0500 Systolic blood pressure 153 mm[Hg] Dr. Briseyda Sinclair Work Phone: [facility] 10-07-2023 14:00-0500 Body mass index (BMI) [Ratio] 23.2 kg/m2 Dr. Briseyda Sinclair Work Phone: [facility] 10-07-2023 14:00-0500 Body temperature 97.8 [degF] Dr. Briseyda Sinclair Work Phone: [facility] 10-07-2023 14:00-0500 Body weight 77.[address] Briseyda Sinclair Work Phone: [facility] 10-07-2023 14:00-0500 Diastolic blood pressure 73 mm[Hg] Dr. Briseyda Sinclair Work Phone: [facility] 10-07-2023 14:00-0500 Heart rate 85 /min Dr. Briseyda Sinclair Work Phone: [facility] 10-07-2023 14:00-0500 Respiratory rate 16 /min Dr. Briseyda Sinclair Work Phone: [facility] 10-07-2023 14:00-0500 SaO2% (BldA) [Mass fraction] 97 % Dr. Briseyda Sinclair Work Phone: [facility] 10-07-2023 14:00-0500 Systolic blood pressure 121 mm[Hg] Dr. Briseyda Sinclair Work Phone: [facility] 08-29-2023 06:07-0500 Body temperature 97.8 [degF] Dr. Briseyda Sinclair Work Phone: [facility] 08-29-2023 06:07-0500 Diastolic blood pressure 85 mm[Hg] Dr. Briseyda Sinclair Work Phone: [facility] 08-29-2023 06:07-0500 Heart rate 91 /min Dr. Briseyda Sinclair Work Phone: [facility] 08-29-2023 06:07-0500 Respiratory rate 12 /min Dr. Briseyda Sinclair Work Phone: [facility] 08-29-2023 06:07-0500 SaO2% (BldA) [Mass fraction] 98 % Dr. Briseyda Sinclair Work Phone: [facility] 08-29-2023 06:07-0500 Systolic blood pressure 155 mm[Hg] Dr. Briseyda Sinclair Work Phone: [facility] 08-24-2023 07:06-0500 Body height 182.[address] Briseyda Sinclair Work Phone: [facility] 08-24-2023 07:06-0500 Body mass index (BMI) [Ratio] 21.9 kg/m2 Dr. Briseyda Sinclair Work Phone: [facility] 08-24-2023 07:06-0500 Body temperature 97.6 [degF] Dr. Briseyda Sinclair Work Phone: [facility] 08-24-2023 07:06-0500 Body weight 73.[address] Briseyda Sinclair Work Phone: [facility] 08-24-2023 07:06-0500 Diastolic blood pressure 80 mm[Hg] Dr. Briseyda Sinclair Work Phone: [facility] 08-24-2023 07:06-0500 Heart rate 83 /min Dr. Briseyda Sinclair Work Phone: [facility] 08-24-2023 07:06-0500 Respiratory rate 14 /min Dr. Briseyda Sinclair Work Phone: [facility] 08-24-2023 07:06-0500 SaO2% (BldA) [Mass fraction] 99 % Dr. Briseyda Sinclair Work Phone: [facility] 08-24-2023 07:06-0500 Systolic blood pressure 153 mm[Hg] Dr. Briseyda Sinclair Work Phone: [facility] 08-20-2023 05:44-0500 Diastolic blood pressure 71 mm[Hg] Dr. Briseyda Sinclair Work Phone: [facility] 08-20-2023 05:44-0500 Heart rate 75 /min Dr. Briseyda Sinclair Work Phone: [facility] 08-20-2023 05:44-0500 Respiratory rate 14 /min Dr. Briseyda Sinclair Work Phone: [facility] 08-20-2023 05:44-0500 SaO2% (BldA) [Mass fraction] 99 % Dr. Briseyda Sinclair Work Phone: [facility] 08-20-2023 05:44-0500 Systolic blood pressure 150 mm[Hg] Dr. Briseyda Sinclair Work Phone: [facility] 08-20-2023 03:33-0500 Body temperature 97.6 [degF] Dr. Briseyda Sinclair Work Phone: [facility] 08-20-2023 03:30-0500 Body height 182.[address] Briseyda Sinclair Work Phone: [facility] 08-20-2023 03:30-0500 Body mass index (BMI) [Ratio] 22.1 kg/m2 Dr. Briseyda Sinclair Work Phone: [facility] 08-20-2023 03:30-0500 Body weight [address] Briseyda Sinclair Work Phone: [facility] 08-13-2023 08:37-0500 Body mass index (BMI) [Ratio] 23.6 kg/m2 Dr. Briseyda Sinclair Work Phone: [facility] 08-13-2023 08:37-0500 Body temperature 98.4 [degF] Dr. Briseyda Sinclair Work Phone: [facility] 08-13-2023 08:37-0500 Body weight 78.[address] Briseyda Sinclair Work Phone: [facility] 08-13-2023 08:37-0500 Diastolic blood pressure 76 mm[Hg] Dr. Briseyda Sinclair Work Phone: [facility] 08-13-2023 08:37-0500 Heart rate 92 /min Dr. Briseyda Sinclair Work Phone: [facility] 08-13-2023 08:37-0500 Respiratory rate 12 /min Dr. Briseyda Sinclair Work Phone: [facility] 08-13-2023 08:37-0500 SaO2% (BldA) [Mass fraction] 96 % Dr. Briseyda Sinclair Work Phone: [facility] 08-13-2023 08:37-0500 Systolic blood pressure 154 mm[Hg] Dr. Briseyda Sinclair Work Phone: [facility] 05-22-2023 13:03-0400 Body height 182.[address] Briseyda Sinclair Work Phone: [facility] 05-22-2023 13:03-0400 Body mass index (BMI) [Ratio] 23.1 kg/m2 Dr. Briseyda Sinclair Work Phone: [facility] 05-22-2023 13:03-0400 Body weight 77.[address] Briseyda Sinclair Work Phone: [facility] 05-22-2023 13:03-0400 Diastolic blood pressure 66 mm[Hg] Dr. Briseyda Sinclair Work Phone: [facility] 05-22-2023 13:03-0400 Heart rate 77 /min Dr. Briseyda Sinclair Work Phone: [facility] 05-22-2023 13:03-0400 Respiratory rate 16 /min Dr. Briseyda Sinclair Work Phone: [facility] 05-22-2023 13:03-0400 Systolic blood pressure 106 mm[Hg] Dr. Briseyda Sinclair Work Phone: [facility] 04-01-2023 14:21-0400 Body mass index (BMI) [Ratio] 23.5 kg/m2 Dr. Briseyda Sinclair Work Phone: [facility] 04-01-2023 14:21-0400 Body temperature 98.2 [degF] Dr. Briseyda Sinclair Work Phone: [facility] 04-01-2023 14:21-0400 Body weight 78.[address] Briseyda Sinclair Work Phone: [facility] 04-01-2023 14:21-0400 Diastolic blood pressure 68 mm[Hg] Dr. Briseyda Sinclair Work Phone: [facility] 04-01-2023 14:21-0400 Heart rate 78 /min Dr. Briseyda Sinclair Work Phone: [facility] 04-01-2023 14:21-0400 Respiratory rate 16 /min Dr. Briseyda Sinclair Work Phone: [facility] 04-01-2023 14:21-0400 SaO2% (BldA) [Mass fraction] 93 % Dr. Briseyda Sinclair Work Phone: [facility] 04-01-2023 14:21-0400 Systolic blood pressure 120 mm[Hg] Dr. Briseyda Sinclair Work Phone: [facility] 03-07-2023 14:53-0400 Diastolic blood pressure 76 mm[Hg] Dr. Briseyda Sinclair Work Phone: [facility] 03-07-2023 14:53-0400 Heart rate 77 /min Dr. Briseyda Sinclair Work Phone: [facility] 03-07-2023 14:53-0400 Systolic blood pressure 133 mm[Hg] Dr. Briseyda Sinclair Work Phone: [facility] 09-24-2022 13:35-0500 Body temperature 97.8 [degF] Dr. Briseyda Sinclair Work Phone: [facility] 09-24-2022 13:35-0500 Body weight 79.[address] Briseyda Sinclair Work Phone: [facility] 09-24-2022 13:35-0500 Diastolic blood pressure 83 mm[Hg] Dr. Briseyda Sinclair Work Phone: [facility] 09-24-2022 13:35-0500 Heart rate 83 /min Dr. Briseyda Sinclair Work Phone: [facility] 09-24-2022 13:35-0500 Respiratory rate 16 /min Dr. Briseyda Sinclair Work Phone: [facility] 09-24-2022 13:35-0500 SaO2% (BldA) [Mass fraction] 98 % Dr. Briseyda Sinclair Work Phone: [facility] 09-24-2022 13:35-0500 Systolic blood pressure 131 mm[Hg] Dr. Briseyda Sinclair Work Phone: [facility] 06-01-2022 06:55-0400 Body height 182.[address] Briseyda Sinclair Work Phone: [facility] Work Phone: 06-01-2022 06:55-0400 Body weight 75.[address] Briseyda Sinclair Work Phone: [facility] Work Phone: 05-31-2022 08:01-0400 Body mass index (BMI) [Ratio] 22.6 kg/m2 Dr. Briseyda Sinclair Work Phone: [facility] Work Phone: 05-04-2022 10:06-0400 Body height 182.[address] Briseyda Sinclair Work Phone: [facility] Work Phone: 05-04-2022 10:06-0400 Body mass index (BMI) [Ratio] 22.6 kg/m2 Dr. Briseyda Sinclair Work Phone: [facility] Work Phone: 05-04-2022 10:06-0400 Body weight 75.[address] Briseyda Sinclair Work Phone: [facility] Work Phone: 05-04-2022 10:06-0400 Diastolic blood pressure 75 mm[Hg] Dr. Briseyda Sinclair Work Phone: [facility] Work Phone: 05-04-2022 10:06-0400 Heart rate 86 /min Dr. Briseyda Sinclair Work Phone: [facility] Work Phone: 05-04-2022 10:06-0400 Respiratory rate 18 /min Dr. Briseyda Sinclair Work Phone: [facility] Work Phone: 05-04-2022 10:06-0400 SaO2% (BldA) [Mass fraction] 99 % Dr. Briseyda Sinclair Work Phone: [facility] Work Phone: 05-04-2022 10:06-0400 Systolic blood pressure 119 mm[Hg] Dr. Briseyda Sinclair Work Phone: [facility] Work Phone: 03-21-2022 13:11-0400 Body mass index (BMI) [Ratio] 22.5 kg/m2 Dr. Briseyda Sinclair Work Phone: [facility] Work Phone: 03-21-2022 13:11-0400 Body weight 75.[address] Briseyda Sinclair Work Phone: [facility] Work Phone: 03-21-2022 13:11-0400 Diastolic blood pressure 68 mm[Hg] Dr. Briseyda Sinclair Work Phone: [facility] Work Phone: 03-21-2022 13:11-0400 Heart rate 88 /min Dr. Briseyda Sinclair Work Phone: [facility] Work Phone: 03-21-2022 13:11-0400 Respiratory rate 14 /min Dr. Briseyda Sinclair Work Phone: [facility] Work Phone: 03-21-2022 13:11-0400 SaO2% (BldA) [Mass fraction] 98 % Dr. Briseyda Sinclair Work Phone: [facility] Work Phone: 03-21-2022 13:11-0400 Systolic blood pressure 122 mm[Hg] Dr. Briseyda Sinclair Work Phone: [facility] Work Phone: 03-02-2022 08:31-0400 Body mass index (BMI) [Ratio] 21.7 kg/m2 Dr. Briseyda Sinclair Work Phone: [facility] Work Phone: 03-02-2022 08:31-0400 Body temperature 97.2 [degF] Dr. Briseyda Sinclair Work Phone: [facility] Work Phone: 03-02-2022 08:31-0400 Body weight 72.[address] Briseyda Sinclair Work Phone: [facility] Work Phone: 03-02-2022 08:31-0400 Diastolic blood pressure 59 mm[Hg] Dr. Briseyda Sinclair Work Phone: [facility] Work Phone: 03-02-2022 08:31-0400 Heart rate 82 /min Dr. Briseyda Sinclair Work Phone: [facility] Work Phone: 03-02-2022 08:31-0400 Respiratory rate 18 /min Dr. Briseyda Sinclair Work Phone: [facility] Work Phone: 03-02-2022 08:31-0400 SaO2% (BldA) [Mass fraction] 97 % Dr. Briseyda Sinclair Work Phone: [facility] Work Phone: 03-02-2022 08:31-0400 Systolic blood pressure 113 mm[Hg] Dr. Briseyda Sinclair Work Phone: [facility] Work Phone: 01-24-2022 08:31-0400 Body mass index (BMI) [Ratio] 21.7 kg/m2 Dr. Briseyda Sinclair Work Phone: [facility] Work Phone: 01-24-2022 08:31-0400 Body temperature 97.1 [degF] Dr. Briseyda Sinclair Work Phone: [facility] Work Phone: 01-24-2022 08:31-0400 Body weight 72.[address] Briseyda Sinclair Work Phone: [facility] Work Phone: 01-24-2022 08:31-0400 Diastolic blood pressure 66 mm[Hg] Dr. Briseyda Sinclair Work Phone: [facility] Work Phone: 01-24-2022 08:31-0400 Heart rate 90 /min Dr. Briseyda Sinclair Work Phone: [facility] Work Phone: 01-24-2022 08:31-0400 Respiratory rate 14 /min Dr. Briseyda Sinclair Work Phone: [facility] Work Phone: 01-24-2022 08:31-0400 SaO2% (BldA) [Mass fraction] 99 % Dr. Briseyda Sinclair Work Phone: [facility] Work Phone: 01-24-2022 08:31-0400 Systolic blood pressure 104 mm[Hg] Dr. Briseyda Sinclair Work Phone: [facility] Work Phone: 01-24-2022 08:31-0400 Body height 182.[address] Briseyda Sinclair Work Phone: [facility] Work Phone: 01-24-2022 08:31-0400 Body mass index (BMI) [Ratio] 21.7 kg/m2 Dr. Briseyda Sinclair Work Phone: [facility] Work Phone: 01-24-2022 08:31-0400 Body temperature 97.1 [degF] Dr. Briseyda Sinclair Work Phone: [facility] Work Phone: 01-24-2022 08:31-0400 Body weight 72.[address] Briseyda Sinclair Work Phone: [facility] Work Phone: 01-24-2022 08:31-0400 Diastolic blood pressure 66 mm[Hg] Dr. Briseyda Sinclair Work Phone: [facility] Work Phone: 01-24-2022 08:31-0400 Heart rate 90 /min Dr. Briseyda Sinclair Work Phone: [facility] Work Phone: 01-24-2022 08:31-0400 Respiratory rate 14 /min Dr. Briseyda Sinclair Work Phone: [facility] Work Phone: 01-24-2022 08:31-0400 SaO2% (BldA) [Mass fraction] 99 % Dr. Briseyda Sinclair Work Phone: [facility] Work Phone: 01-24-2022 08:31-0400 Systolic blood pressure 104 mm[Hg] Dr. Briseyda Sinclair Work Phone: [facility] Work Phone: 01-10-2022 11:25-0400 Body mass index (BMI) [Ratio] 21.1 kg/m2 Dr. Briseyda Sinclair Work Phone: [facility] Work Phone: 01-10-2022 11:25-0400 Body temperature 97.3 [degF] Dr. Briseyda Sinclair Work Phone: [facility] Work Phone: 01-10-2022 11:25-0400 Body weight 70.[address] Briseyda Sinclair Work Phone: [facility] Work Phone: 01-10-2022 11:25-0400 Diastolic blood pressure 68 mm[Hg] Dr. Briseyda Sinclair Work Phone: [facility] Work Phone: 01-10-2022 11:25-0400 Heart rate 92 /min Dr. Briseyda Sinclair Work Phone: [facility] Work Phone: 01-10-2022 11:25-0400 Respiratory rate 14 /min Dr. Briseyda Sinclair Work Phone: [facility] Work Phone: 01-10-2022 11:25-0400 SaO2% (BldA) [Mass fraction] 95 % Dr. Briseyda Sinclair Work Phone: [facility] Work Phone: 01-10-2022 11:25-0400 Systolic blood pressure 104 mm[Hg] Dr. Briseyda Sinclair Work Phone: [facility] Work Phone: 01-08-2022 12:30-0400 Diastolic blood pressure 84 mm[Hg] Dr. Briseyda Sinclair Work Phone: [facility] Work Phone: 01-08-2022 12:30-0400 Systolic blood pressure 131 mm[Hg] Dr. Briseyda Sinclair Work Phone: [facility] Work Phone: 01-08-2022 12:00-0400 Body temperature 98 [degF] Dr. Briseyda Sinclair Work Phone: [facility] Work Phone: 01-08-2022 12:00-0400 Heart rate 96 /min Dr. Briseyda Sinclair Work Phone: [facility] Work Phone: 01-08-2022 12:00-0400 Respiratory rate 14 /min Dr. Briseyda Sinclair Work Phone: [facility] Work Phone: 01-08-2022 12:00-0400 SaO2% (BldA) [Mass fraction] 99 % Dr. Briseyda Sinclair Work Phone: [facility] Work Phone: 01-08-2022 08:19-0400 Body height 182.[address] Briseyda Sinclair Work Phone: [facility] Work Phone: 01-08-2022 08:19-0400 Body mass index (BMI) [Ratio] 20.6 kg/m2 Dr. Briseyda Sinclair Work Phone: [facility] Work Phone: 01-08-2022 08:19-0400 Body weight 68.[address] Briseyda Sinclair Work Phone: [facility] Work Phone: 01-04-2022 11:00-0400 Heart rate 92 /min Dr. Briseyda Sinclair Work Phone: [facility] Work Phone: 01-04-2022 08:27-0400 Body temperature 97.7 [degF] Dr. Briseyda Sinclair Work Phone: [facility] Work Phone: 01-04-2022 08:27-0400 Diastolic blood pressure 80 mm[Hg] Dr. Briseyda Sinclair Work Phone: [facility] Work Phone: 01-04-2022 08:27-0400 Respiratory rate 16 /min Dr. Briseyda Sinclair Work Phone: [facility] Work Phone: 01-04-2022 08:27-0400 SaO2% (BldA) [Mass fraction] 97 % Dr. Briseyda Sinclair Work Phone: [facility] Work Phone: 01-04-2022 08:27-0400 Systolic blood pressure 141 mm[Hg] Dr. Briseyda Sinclair Work Phone: [facility] Work Phone: 01-02-2022 17:08-0400 Body weight 70.[address] Briseyda Sinclair Work Phone: [facility] Work Phone: 01-02-2022 12:04-0400 Body mass index (BMI) [Ratio] 20.9 kg/m2 Dr. Briseyda Sinclair Work Phone: [facility] Work Phone: 01-02-2022 11:00-0400 Body temperature 97.8 [degF] Dr. Briseyda Sinclair Work Phone: [facility] Work Phone: 01-02-2022 11:00-0400 Diastolic blood pressure 76 mm[Hg] Dr. Briseyda Sinclair Work Phone: [facility] Work Phone: 01-02-2022 11:00-0400 Heart rate 94 /min Dr. Briseyda Sinclair Work Phone: [facility] Work Phone: 01-02-2022 11:00-0400 Respiratory rate 12 /min Dr. Briseyda Sinclair Work Phone: [facility] Work Phone: 01-02-2022 11:00-0400 SaO2% (BldA) [Mass fraction] 97 % Dr. Briseyda Sinclair Work Phone: [facility] Work Phone: 01-02-2022 11:00-0400 Systolic blood pressure 149 mm[Hg] Dr. Briseyda Sinclair Work Phone: [facility] Work Phone: 01-02-2022 06:53-0400 Body height 182.[address] Briseyda Sinclair Work Phone: [facility] Work Phone: 01-02-2022 06:53-0400 Body mass index (BMI) [Ratio] 21.4 kg/m2 Dr. Briseyda Sinclair Work Phone: [facility] Work Phone: 01-02-2022 06:53-0400 Body weight 71.[address] Briseyda Sinclair Work Phone: [facility] Work Phone: 09-20-2021 08:30-0500 Body mass index (BMI) [Ratio] 23.8 kg/m2 Dr. Briseyda Sinclair Work Phone: [facility] Work Phone: 09-20-2021 08:30-0500 Body temperature 98.5 [degF] Dr. Briseyda Sinclair Work Phone: [facility] Work Phone: 09-20-2021 08:30-0500 Body weight 79.[address] Briseyda Sinclair Work Phone: [facility] Work Phone: 09-20-2021 08:30-0500 Diastolic blood pressure 80 mm[Hg] Dr. Briseyda Sinclair Work Phone: [facility] Work Phone: 09-20-2021 08:30-0500 Heart rate 72 /min Dr. Briseyda Sinclair Work Phone: [facility] Work Phone: 09-20-2021 08:30-0500 Respiratory rate 14 /min Dr. Briseyda Sinclair Work Phone: [facility] Work Phone: 09-20-2021 08:30-0500 SaO2% (BldA) [Mass fraction] 99 % Dr. Briseyda Sinclair Work Phone: [facility] Work Phone: 09-20-2021 08:30-0500 Systolic blood pressure 132 mm[Hg] Dr. Briseyda Sinclair Work Phone: [facility] Work Phone: NEGATED: Highlighted [id number] 13:39-0400 Body height 182.88 cm Nisha Taylor EXHIBITOR SALES [facility] Work Phone: NEGATED: Highlighted [id number] 13:39-0400 Body height 183 cm Nisha Taylor EXHIBITOR SALES [facility] Work Phone: NEGATED: Highlighted [id number] 13:39-0400 Body mass index (BMI) [Ratio] 23.68 kg/m2 Nisha Taylor EXHIBITOR SALES [facility] Work Phone: NEGATED: Highlighted [id number] 13:39-0400 Body weight 78.93 kg Nisha Taylor EXHIBITOR SALES [facility] Work Phone: NEGATED: Highlighted [id number] 13:39-0400 Body weight 79 kg Nisha Taylor EXHIBITOR SALES [facility] Work Phone: Encounters Encounter Date Encounter Type Care Provider Facility Start: 06-14-2025 ambulatory Mookie Werner Facility:[facility] Start: 05-12-2025 End: 05-12-[address] Mookie Werner MD -[facility] Work Phone: Start: 05-12-2025 End: 05-12-[address] Briseyda Sinclair MD Work Phone: -[facility] Start: 05-06-2025 End: 05-06-[address] Briseyda Sinclair MD Work Phone: -Laboratory Specimen Start: 05-06-2025 End: 05-06-[address] Briseyda Sinclair MD -Laboratory Specimen Work Phone: Start: 05-06-2025 End: 05-06-2025 ambulatory Briseyda Sinclair Facility:[facility] Start: 05-03-2025 End: 05-03-[address] Briseyda Sinclair MD -[facility] Work Phone: Start: 05-03-2025 End: 05-03-[address] Briseyda Sinclair MD Work Phone: -[facility] Start: 04-28-2025 End: 04-28-[address] Cuate Garrison MD -[facility] Work Phone: Start: 04-28-2025 End: 04-28-[address] Briseyda Sinclair MD Work Phone: -[facility] Start: 04-12-2025 End: 04-12-2025 Patient encounter procedure Saira VEGA -[facility] Work Phone: Start: 04-12-2025 End: 04-12-[address] Briseyda Sinclair MD Work Phone: -[facility] Start: 03-29-2025 End: 03-29-2025 Emergency department patient visit Dr. Briseyda Sinclair MD Work Phone: -Emergency Department Work Phone: Start: 03-24-2025 End: 05-24-2025 Orders Only Aide Cloud APRN - TELEVISION PRODUCER Work Phone: [facility] Comment on above: TIA (transient ische lisset attack) (Primary Dx); Cerebrovascular accident (CVA) due to stenosis of left carotid artery (HCC) PRU Test (P2Y12) Start: 03-12-2025 End: 03-12-2025 ambulatory SIMBA BLACKMAN [facility] Start: 03-09-2025 ambulatory Mookie Werner Facility:[facility] Start: 03-05-2025 End: 03-05-2025 Telephone encounter Simba Blackman MD Work Phone: [facility] [place] Comment on above: Lab Orders (/) Start: 03-04-2025 End: 03-04-2025 ambulatory [facility] Start: 03-04-2025 End: 03-04-2025 Office outpatient new 45 minutes Simba Blackman MD Work Phone: [facility] Comment on above: Cerebral aneurysm (P rimary Dx); Cerebrovascular accident (CVA) due to stenosis of left carotid artery (HCC) Start: 03-04-2025 End: 06-03-2025 ambulatory [facility] Comment on above: Cerebral infarction due to unspecified occlusion or stenosis of left carotid arteries (HCC) (Primary Dx) Start: 02-19-2025 Non-patient / Non-visit Dr. Vira Garrison MD -[facility] Work Phone: Start: 02-19-2025 ambulatory Saira Sánchez Facility: [facility] Start: 02-19-2025 Registered Referred Saira Sánchez NP -C -Cardiovascular Services Work Phone: Start: 02-17-2025 End: 03-25-2025 Telephone encounter Simba Blackman MD Work Phone: [facility] Comment on above: Referral Start: 02-11-2025 End: 02-11-2025 Patient encounter procedure Saira Sánchez NP-C -[facility] Work Phone: Start: 02-11-2025 End: 02-11-[address] Briseyda Sinclair MD Work Phone: [facility] Work Phone: Start: 02-06-2025 End: 02-06-2025 Patient encounter procedure Brenda Tovar NP-C -[facility] Work Phone: Start: 02-06-2025 End: 02-06-2025 ambulatory Briseyda Sinclair Facility:[facility] Start: 02-01-2025 End: 02-01-[address] Mookie Werner MD -[facility] Work Phone: Start: 02-01-2025 End: 02-01-[address] Briseyda Sinclair MD Work Phone: [facility] Work Phone: Start: 01-27-2025 End: 01-27-[address] Briseyda Sinclair MD -[facility] [place] Work Phone: Start: 01-27-2025 End: 01-27-[address] Briseyda Sinclair MD Work Phone: [facility] Work Phone: Start: 01-25-2025 End: 01-25-[address] Briseyda Sinclair MD Work Phone: [facility] Work Phone: Start: 01-25-2025 End: 01-25-[address] Dony Daily MD -Laboratory Work Phone: Start: 01-25-2025 End: 01-25-2025 ambulatory Dony Daily Facility:[facility] Start: 01-18-2025 End: 01-18-[address] Renae Rubalcava MD -Speech Therapy Work Phone: Start: 01-18-[address] Renae Rubalcava MD -Speech Therapy Work Phone: Start: 01-18-2025 Non-patient / Non-visit Dr. Marcie Sinclair MD -[facility] Start: 01-18-2025 End: 01-18-[address] Briseyda Sinclair MD Work Phone: -Speech Therapy Start: 01-14-2025 Non-patient / Non-visit Dr. Paulina Rubalcava MD -[facility] Work Phone: Start: 01-13-2025 Non-patient / Non-visit Dr. Paulina Rubalcava MD -[facility] Work Phone: Start: 01-13-2025 ambulatory Renae Rubalcava Facility :[facility] Start: 01-13-2025 End: 01-14-2025 Evaluation and management of inpatient Dr. Renae Rubalcava MD -Progressive Care Unit Work Phone: Start: 01-13-2025 ambulatory Mookie Werner Facility:[facility] Start: 01-13-2025 Non-patient / Non-visit Dr. Mookie yun MD -[facility] Start: 01-13-2025 ambulatory [facility] :[facility] Start: 01-13-2025 Non-patient / Non-visit Dr. Shawn LORENZO -[facility] Start: 01-12-2025 Non-patient / Non-visit Dr. Sharonda Kenney MD -[facility] Work Phone: Start: 01-12-2025 ambulatory Briseyda Dottie Facility :[facility] Start: 12-31-2024 End: 12-31-[address] Briseyda Sinclair MD -[facility] Work Phone: Start: 12-30-2024 End: 12-31-[address] Briseyda Sinclair MD Work Phone: [facility] Work Phone: Start: 12-30-2024 End: 12-30-[address] Briseyda Sinclair MD -Laboratory Work Phone: Start: 12-30-2024 End: 12-30-2024 ambulatory Briseyda Sinclair Facility:[facility] Start: 11-18-2024 End: 11-18-[address] Briseyda Sinclair MD Work Phone: [facility] Work Phone: Start: 11-18-2024 End: 11-18-[address] Briseyda Sinclair MD -Laboratory Work Phone: Start: 11-18-2024 End: 11-18-2024 ambulatory Briseyda Sinclair Facility:[facility] Start: 11-09-2024 End: 11-09-[address] Cuate Garrison MD -[facility] Work Phone: Start: 11-09-2024 End: 11-09-2024 ambulatory Briseyda Sinclair Facility:[facility] Start: 10-13-2024 End: 10-13-2024 ambulatory Vito Dejesus Facility:[facility] Start: 10-13-2024 End: 10-13-[address] Vito Dejesus MD -Physical Therapy Work Phone: Start: 09-29-2024 End: 09-29-[address] Vito Dejesus MD -[facility] Work Phone: Start: 09-29-2024 End: 09-29-2024 ambulatory Briseyda Sinclair Facility:[facility] Start: 08-31-2024 End: 08-31-[address] Briseyda Sinclair MD -[facility] Work Phone: Start: 08-31-2024 End: 08-31-2024 ambulatory Briseydareji Sinclair Facility:[facility] Start: 08-20-2024 End: 08-20-[address] Vito Dejesus MD -[facility] Work Phone: Start: 08-20-2024 End: 08-20-2024 ambulatory Vito Dejesus Facility:[facility] Start: 08-11-2024 End: 08-11-[address] Briseyda Sinclair MD -Laboratory Work Phone: Start: 08-10-2024 End: 08-10-[address] Briseyda Sinclair MD -[facility] Work Phone: Start: 08-10-2024 End: 08-11-2024 ambulatory Briseyda Sinclair Facility:[facility] Start: 07-19-2024 End: 07-19-2024 ambulatory [facility] Start: 12-03-2023 Non-patient / Non-visit Dr. Marcie Sinclair Work Phone: [facility] Start: 12-03-2023 End: 12-03-2023 Admission to same day surgery center Dr. Briseyda Sinclair Work Phone: [facility] Work Phone: Start: 12-03-2023 End: 12-03-[address] Briseyda Sinclair Work Phone: [facility] Work Phone: Start: 11-22-2023 End: 11-22-[address] Briseyda Sinclair Work Phone: [facility] Work Phone: Start: 11-19-2023 End: 11-19-[address] Briseyda Sinclair Work Phone: [facility] Work Phone: Start: 11-19-2023 End: 11-19-[address] Briseyda Sinclair Work Phone: [facility] Work Phone: Start: 11-06-2023 End: 11-06-[address] [facility] Start: 10-07-2023 End: 10-07-[address] Briseyda Sinclair Work Phone: [facility] [place] Work Phone: Start: 08-29-2023 End: 08-29-[address] Briseyda Sinclair Work Phone: [facility] Work Phone: Start: 08-24-2023 End: 08-24-2023 Emergency department patient visit Dr. Briseyda Sinclair [facility] Start: 08-20-2023 End: 08-20-2023 Emergency department patient visit Dr. Briseyda Sinclair Work Phone: [facility] Work Phone: Start: 08-13-2023 End: 08-13-[address] Briseyda Sincalir Work Phone: [facility] Work Phone: Start: 05-23-2023 End: 05-23-[address] Briseyda Sinclair Work Phone: [facility] Work Phone: Start: 05-23-2023 End: 05-23-[address] Briseyda Sinclair Work Phone: [facility] Work Phone: Start: 05-22-2023 End: 05-22-[address] Briseyda Sinclair Work Phone: [facility] Work Phone: Start: 04-03-2023 End: 04-03-[address] [facility] Start: 04-01-2023 End: 04-01-[address] Briseyda Sinclair Work Phone: [facility] Work Phone: Start: 03-07-2023 End: 03-07-[address] Briseyda Sinclair Work Phone: [facility] Work Phone: Start: 02-18-2023 Non-patient / Non-visit Dr. Marcie Sinclair Work Phone: [facility] Start: 02-18-2023 End: 02-18-[address] Briseyda Sinclair Work Phone: [facility] Work Phone: Start: 09-25-2022 End: 09-25-[address] Briseyda Sinclair Work Phone: [facility] Work Phone: Start: 09-25-2022 End: 09-25-[address] Briseyda Sinclair Work Phone: [facility], [facility] Start: 09-24-2022 End: 09-24-[address] Briseyda Sinclair Work Phone: [facility] Start: 06-04-2022 End: 06-04-[address] Briseyda Sinclair Work Phone: [facility] Work Phone: Start: 06-04-2022 End: 06-04-[address] Briseyda Sinclair Work Phone: [facility]Labor[facility] Start: 06-01-2022 End: 06-01-2022 Admission to same day surgery center Dr. Briseyda Sinclair Work Phone: [facility]Orthopedic Physician/Special Procedures Start: 05-28-2022 Non-patient / Non-visit Dr. Marcie Sinclair Work Phone: [facility] Start: 05-24-2022 End: 05-24-[address] Briseyda Sinclair Work Phone: [facility] Start: 05-16-2022 Non-patient / Non-visit Dr. Marcie Sinclair Work Phone: [facility] Start: 05-16-2022 End: 05-16-[address] Briseyda Sinclair Work Phone: [facility] Work Phone: Start: 05-16-2022 End: 05-16-[address] [facility] Start: 05-04-2022 End: 05-04-[address] Briseyda Sinclair Work Phone: [facility] Start: 04-16-2022 Non-patient / Non-visit Dr. Marcie Sinclair Work Phone: [facility] Start: 03-21-2022 End: 03-21-[address] Briseyda Sinclair Work Phone: [facility] Start: 03-02-2022 End: 03-02-[address] Briseyda Sinclair Work Phone: [facility] Start: 02-09-2022 Non-patient / Non-visit Dr. Marcie Sinclair Work Phone: [facility] Start: 02-09-2022 End: 02-09-[address] [facility]yda [facility] Start: 02-09-2022 End: 02-09-2022 ambulatory Maria Elena O'Betito PT [facility] Comment on above: Adhesive capsulitis of right shoulder Start: 02-02-2022 End: 02-02-2022 ambulatory Maria Elena O'Betito PT Work Phone: [facility] Comment on above: Adhesive capsulitis of right shoulder Start: 01-26-2022 End: 01-26-2022 ambulatory Maria Elena O'Betito PT Work Phone: [facility] Comment on above: Adhesive capsulitis of right shoulder Start: 01-24-2022 End: 01-24-[address] Briseyda Sinclair Work Phone: [facility] Start: 01-19-2022 End: 01-19-2022 ambulatory Maria Elena O'Betito PT Work Phone: [facility] Comment on above: Adhesive capsulitis of right shoulder Start: 01-10-2022 End: 01-10-[address] Briseyda Sinclair Work Phone: [facility] Start: 01-08-2022 End: 01-08-2022 Emergency department patient visit Dr. Briseyda Sinclair Work Phone: [facility]Emergency Department Start: 01-04-2022 Non-patient / Non-visit Dr. Marcie Sinclair Work Phone: [facility] Start: 01-03-2022 Non-patient / Non-visit Dr. Marcie Sinclair Work Phone: [facility] Start: 01-02-2022 End: 01-04-2022 Evaluation and management of inpatient Dr. Briseyda Sinclair Work Phone: [facility]Progressive [facility] Unit Start: 12-28-2021 End: 12-28-2021 ambulatory Maria Elena O'Betito PT Work Phone: [facility] Comment on above: Adhesive capsulitis of right shoulder (Primary Dx) Start: 12-27-2021 End: 12-27-2021 Pt evaluation Eloy Martinez MD Work Phone: [facility] Work Phone: Start: 09-25-2021 Non-patient / Non-visit Dr. Marcie Sinclair Work Phone: [facility] Start: 09-20-2021 End: 09-20-[address] Briseyda Sinclair Work Phone: [facility] Start: 09-04-[address] Briseyda Sinclair Work Phone: [facility] Start: 09-04-[address] Briseyda Sinclair Work Phone: [facility] Procedures Date Procedure Procedure Detail Performing Clinician Start: 05-06-[address] e detection [address] Briseyda Sinclair MD Work Phone: Start: 05-06-[address] Briseyda Sinclair MD Work Phone: Start: 05-06-[address] Briseyda Sinclair MD Work Phone: Start: 05-06-[address] Briseyda Sinclair MD Work Phone: Comment on above: Test Ordered: [id number] Stool CultureSalmonella/Shigella Screen Note: CB Final report Reference Range: .Result 1 Comment CB Reference Range: .No Salmonella or Shigella recovered.Campylobacter Culture Note: CB Final report Reference Range: .Result 1 Comment CB Reference Range: .No Campylobacter species isolated.E coli Shiga Toxin EIA Negative CB Reference Range: NegativePerformed at: [facility] [id number] Director: Ciaran Sethi PhD, Phone: [phone] Start: 03-29-2025 X-ray of chest, PA a [...] COVID-19 Vaccine ( season) COVID-19 Vaccine () [facility] Start: 05-17-2025 Influenza vaccination Influenza Vacc ine (#1) [facility] Start: 03-29-2025 [facility] Start: 03-29-2025 [facility] Start: 03-05-2025 End: 03-05-2026 PRU Test (P2Y12) PRU Test (P2Y12) Lab Routine Cerebrovascular accident (CVA) due to stenosis of left carotid artery (HCC) Expected: 03/05/2025 (Approximate), Expires: 03/05/[address] [facility] Work Phone: Comment on above: Expected: 03/05/2025 (Approximate), Expires: 03/05/2026 Start: 03-04-2025 End: 03-04-2026 PRU Test (P2Y12) PRU Test (P2Y12) Lab Routine Cerebral aneurysm Cerebrovascular accident (CVA) due to stenosis of left carotid artery (HCC) Expected: 03/04/2025 (Approximate), Expires: 03/04/[address] [facility] Work Phone: Comment on above: Expected: 03/04/2025 (Approximate), Expires: 03/04/2026 Start: 02-01-2025 Patient referral [facility] Work Phone: Start: 01-18-2025 Patient referral [facility] Work Phone: Start: 01-14-2025 Patient discharge [facility] Start: 01-13-2025 [facility] Start: 01-13-2025 Admission procedure [facility] Start: 01-12-2025 Following clinical pathway protocol [facility] Start: 01-12-2025 Ambulation without limitation [facility] Start: 01-12-2025 Aspiration precautions [facility] Start: 01-12-2025 Assessment of risk o f venous thromboembolism [facility] Start: 01-12-2025 Cardiac monitoring [facility] Start: 01-12-2025 Care regimes management [facility] Start: 01-12-2025 Catheterization of vein [facility] Start: 01-12-2025 Consultation [facility] Start: 01-12-2025 Elevation of head of bed [facility] Start: 01-12-2025 Exercises [facility] Start: 01-12-2025 Insertion of cathete r into peripheral vein [facility] Start: 01-12-2025 Measuring intake and output [facility] Start: 01-12-2025 Notification of physician [facility] Start: 01-12-2025 Oxygen therapy [facility] Start: 01-12-2025 Patient referral to dietitian [facility] Start: 01-12-2025 Providing care accor ding to standard [facility] Start: 01-12-2025 Referral to occupati onal therapist [facility] Start: 01-12-2025 Referral to service [facility] Start: 01-12-2025 Speech therapy assessment [facility] Start: 01-12-2025 Tobacco use cessatio n education [facility] Start: 01-12-2025 End: 01-12-2025 [facility] Start: 01-12-2025 Vital signs measurements [facility] Start: 01-12-2025 Admission procedure [facility] Start: 01-12-2025 [facility] Start: 01-12-2025 [facility] Start: 08-20-2024 Patient referral [facility] Work Phone: Start: 05-17-2024 COVID-19 Vaccine ( season) COVID-19 Vaccine ( season) [facility] Start: 12-03-2023 Patient discharge [facility] Start: 08-24-2023 [facility] Start: 08-24-2023 Contact precautions [facility] Start: 08-20-2023 [facility] Start: 08-20-2023 [facility] Start: 05-17-2022 Influenza vaccination INFLUENZA (Sea son Ended) [facility] Start: 04-26-2022 COVID-19 VACCINE (4 - Booster for Pfizer series) COVID-19 VACCINE (4 - Booster for Pfizer series) [facility] Start: 01-15-2022 COVID-19 VACCINE (2 - Pfizer 3-dose series) COVID-19 VACCINE (2 - Pfizer 3-dose series) [facility] Start: 01-02-2022 Bacteria identified in Blood by Culture Blood Culture [facility] Work Phone: Start: 12-27-2021 End: 12-27-2021 Patient encounter procedure Appointment [facility] Work Phone: Start: 09-16-2021 ADVANCE DIRECTIVE DISCUSSION ADVANCE DIRECTIVE DISCUSSION [facility] Start: 2015 PNEUMOCOCCAL: 65+ (1 - PCV) PNEUMOCOCCAL: 65+ (1 - PCV) [facility] Start: 2015 PNEUMOVAX AGE 65 AND OVER WITH 5YR LOOKBACK (#1) PNEUMOVAX AGE 65 AND OVER WITH 5YR LOOKBACK (#1) [facility] Start: 2000 SHINGRIX VACCINE (1 of 2) SHINGRIX VACCINE (1 of 2) [facility] Start: 2000 Zoster Vaccines (1 of 2) Zoster Vacc adele (1 of 2) [facility] Start: 1995 COLOGUARD (FIT-DNA) COLOGUARD (FIT-D NA) [facility] Start: 1995 Colonoscopy COLONOSCOPY [facility] Start: 1995 COLORECTAL CANCER SCREENING COLORECTAL CANCER SCREENING [facility] Start: [address] COLONOGRAPHY [facility] Start: 1995 DIABETES SCREEN DIABETES SCREEN [facility] Start: 1995 FECAL OCCULT BLOOD FECAL OCCULT BLOO D [facility] Start: 1995 SIGMOIDOSCOPY SIGMOIDOSCOPY [facility] Start: 1985 LIPID SCREEN LIPID SCREEN [facility] Start: 1969 DTaP/Tdap/Td Vaccine s (1 - Tdap) DTaP/Tdap/Td Vaccines (1 - Tdap) [facility] Start: 1969 Pneumococcal Vaccine : 50+ Years (1 of 2 - PCV) Pneumococcal Vaccine: 50+ Years (1 of 2 - PCV) [facility] Start: 1969 Urine microalbumin profile DTAP,TDAP,TD (1 - Tdap) [facility] Start: 1968 Diabetes: Estimated Glomerular Filtration Rate for Kidney Health Diabetes: Estimated Glomerular Filtration Rate for Kidney Health [facility] Start: 1968 Diabetes: Urine Albumin-Creatinine Ratio for Kidney Health Diabetes: Urine Albumin-Creatinine Ratio for Kid[facility] Health [facility] Start: 1968 HEPATITIS C SCREENING HEPATITIS C SC [facility] Start: 1968 Hepatitis C screening Hepatitis C [facility] Start: 1962 Adult depression screening assessment DEPRESSION SCREENING [facility] Start: 1960 Diabetic foot examination Diabetes: Foot Exam [facility] Start: 1960 Glaucoma screening Diabetes: R etinopathy Screening [facility] Start: 1960 Preventive dental service Diabetes: Dental Exam [facility] Start: 1950 Hemoglobin A1c measurement Diabetes: Hemoglobin A1C [facility] Start: 1950 Lipid panel Lipid Panel [facility] Start: 1950 Medicare Annual Well ness (AWV) Medicare Annual Wellness (AWV) [facility] Start: 1950 Screening for malign ant neoplasm of colon [facility] Cardiac event recording [facility] Colonoscopy [facility] Giardia lamblia Ag [Presence] in Stool by Immunoassay [facility] Lactoferrin [Presenc e] in Stool by Immunoassay [facility] Nucleic acid assay [facility] Patient Education [facility] Work Phone: Patient referral [facility] Work Phone: [place] Carotid arteries [facility] Work Phone: [place] Carotid arteries [facility] Carotid arteries [facility] Carotid arteries 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: [facility] Payers Date Payer Category Payer Self-pay [id number] 2024 Unknown [id number] 2017 Commercial Managed C are - [place] [facility] [address] [id number] 2017 Medicare MEDICARE PART A AND B [id number] 2017 Unknown [employer] [place] [employer] [place] MEDIC[place] SUPPLEMENT [id number] 2017-Present [phone] [id number] [place] [address] Indemnity [id number] 2017 Unknown [id number] 2015 Medicare MEDICARE MEDICAR E A AND B [id number] 2015-Present [phone] [place] [address] Medicare [id number] 2015 Medicare [id number] Unknown [id number] 2.16.840.1.518836.3.579 .2.462 Unknown [id number] 2.16.840.1.665354.3.579 .2.462 Unknown [id number] 2.16.840.1.412008.3.579 .2.462 Unknown [id number] 2.16.840.1.205800.3.579 .2.462 Unknown [id number] 2.16.840.1.564949.3.579 .2.462 Unknown [id number] 2.16.840.1.341248.3.579 .2.462 Unknown [id number] 2.16.840.1.562656.3.579 .2.462 Unknown [id number] 2.16840.1.870848.3.579 .2.462 Unknown [id number] 2.840.1.320342.3.579 .2.462 Unknown [id number] 2.840.1.071925.3.579 .2.462 Unknown [id number] 2.840.1.518458.3.579 .2.462 Unknown [id number] 2.16.840.1.358295.3.579 .2.462 Unknown [id number] 2.16.840.1.958475.3.579 .2.462 Unknown [id number] 2.16840.1.088418.3.579 .2.462 Unknown [id number] 2.840.1.526026.3.579 .2.462 Unknown [id number] 2.16.840.1.567001.3.579 .2.462 Unknown [id number] 2.16.840.1.141067.3.579 .2.462 Unknown [id number] 2.16.840.1.288605.3.579 .2.462 Unknown [id number] 2.16.840.1.348353.3.579 .2.462 Unknown [id number] 2.16840.1.937158.3.579 .2.462 Unknown [id number] 2.16.840.1.730842.3.579 .2.462 Unknown [id number] 2.16.840.1.692486.3.579 .2.462 Unknown [id number] 2.16.840.1.462077.3.579 .2.462 Unknown [id number] 2.16.840.1.625729.3.579 .2.462 Unknown [id number] 2.16.840.1.422454.3.579 .2.462 Unknown [id number] 2.16.840.1.625312.3.579 .2.462 Unknown [id number] 2.16.840.1.058334.3.579 .2.462 Unknown [id number] 2.16.840.1.267626.3.579 .2.462 Unknown [id number] 2.16.840.1.773609.3.579 .2.462 Unknown [id number] 2.16.840.1.581449.3.579 .2.462 Unknown [id number] 2.16.840.1.354311.3.579 .2.462 Unknown [id number] 2.16.840.1.360931.3.579 .2.462 Unknown [id number] 2.16.840.1.941777.3.579 .2.462 Unknown [id number] 2.16.840.1.798149.3.579 .2.462 Unknown [id number] 2.16.840.1.774571.3.579 .2.462 Social History Date Type Detail Facility Start: 01-02-2022 End: 11-29-2023 Tobacco smoking status NCIS Tobacco smoking consumption unknown [facility] Start: 1950 Sex Assigned At Male [facility] Start: 12-17-2021 End: 12-27-2021 Exposure to SARS-CoV-2 (event) Not sure [facility] Start: 08-10-2024 End: 03-04-2025 Tobacco smoking status NHIS Ex-smoker (finding) [facility] Start: 12-01-2024 End: 02-17-2025 Sex Male (finding) [facility] Start: 01-14-2025 Tobacco Use Tobacco Use [facility] End: 09-16-2000 History of tobacco use Current smoker [facility] End: 09-16-2000 History of tobacco use Cigarette Smoker [facility] Start: 03-04-2025 Tobacco use and exposure Smokeless tobacco non-user [facility] Start: 03-04-2025 History of Social function [facility] Start: 03-04-2025 Tobacco use panel [facility] Start: 1950 Sex assigned at Not on file [facility] Start: 03-01-2025 Gender identity Identifies as male gender (finding) [facility] NEGATED: Highlighted rowStart: 12-27-2021 End: 12-27-2021 Alcohol use Alcohol use [facility] Work Phone: NEGATED: Highlighted rowStart: 12-27-2021 End: 12-27-2021 Details of drug misuse behavior Details of drug misuse behavior [facility] Work Phone: NEGATED: Highlighted rowStart: 12-27-2021 End: 12-27-2021 Assertion Former smoker [facility] Work Phone: Medical Equipment Procedure [...] Pen Needle, Diab etic (Comfort Ez Pen [place]) 32 gauge x 1/4 needle Start: 10-23-2023 Blood Sugar Diagnostic (Onetouch Verio Test Strips) strip Start: 02-13-2022 End: 02-14-2022 Blood Sugar Diagnostic (Onetouch Verio Test Strips) strip Start: 02-14-2022 End: 04-03-2023 Pen Needle, Diab etic (Comfort Ez Pen [place]) 32 gauge x 1/4 needle Start: 10-23-2023 [...] Pen Needle, Diab etic (Comfort Ez Pen [place]) 32 gauge x 1/4 needle Start: 10-23-2023 Blood Sugar Diagnostic (Onetouch Verio Test Strips) strip Start: 02-13-2022 End: 02-14-2022 Blood Sugar Diagnostic (Onetouch Verio Test Strips) strip Start: 02-14-2022 End: 04-03-2023 Pen Needle, Diab etic (Comfort Ez Pen [place]) 32 gauge x 1/4 needle Start: 10-23-2023 [...] Pen Needle, Diab etic (Comfort Ez Pen [place]) 32 gauge x 1/4 needle Start: 10-23-2023 Blood Sugar Diagnostic (Onetouch Verio Test Strips) strip Start: 02-13-2022 End: 02-14-2022 Blood Sugar Diagnostic (Onetouch Verio Test Strips) strip Start: 02-14-2022 End: 04-03-2023 Blood Sugar Diagnostic (Onetouch Verio Test Strips) strip Start: 04-03-2023 End: 05-04-2024 Lancets (Onetouc h Delica Plus Lancet) 33 gauge misc Start: 05-04-2024 End: 05-04-2024 Pen Needle, Diab etic (Comfort Ez Pen [place]) 32 gauge x 1/4 needle Start: 10-23-2023 [...] Pen Needle, Diab etic (Comfort Ez Pen [place]) 32 gauge x 1/4 needle Start: 01-04-2025 Blood Sugar Diagnostic (Onetouch Verio Test Strips) strip Start: 02-13-2022 End: 02-14-2022 Blood Sugar Diagnostic (Onetouch Verio Test Strips) strip Start: 02-14-2022 End: 04-03-2023 Blood Sugar Diagnostic (Onetouch Verio Test Strips) strip Start: 04-03-2023 End: 05-04-2024 Lancets (Onetouc h Delica Plus Lancet) 33 gauge misc Start: 05-04-2024 End: 05-04-2024 Pen Needle, Diab etic (Comfort Ez Pen [place]) 32 gauge x 1/4 needle Start: 10-23-2023 End: 10-23-2023 Pen Needle, Diab etic (Comfort Ez Pen [place]) 32 gauge x 1/4 needle Start: 10-23-2023 [...] Pen Needle, Diab etic (Comfort Ez Pen [place]) 32 gauge x 1/4 needle Start: 01-04-2025 Blood Sugar Diagnostic (Onetouch Verio Test Strips) strip Start: 02-13-2022 End: 02-14-2022 Blood Sugar Diagnostic (Onetouch Verio Test Strips) strip Start: 02-14-2022 End: 04-03-2023 Blood Sugar Diagnostic (Onetouch Verio Test Strips) strip Start: 04-03-2023 End: 05-04-2024 Lancets (Onetouc h Delica Plus Lancet) 33 gauge misc Start: 05-04-2024 End: 05-04-2024 Pen Needle, Diab etic (Comfort Ez Pen [place]) 32 gauge x 1/4 needle Start: 10-23-2023 End: 10-23-2023 Pen Needle, Diab etic (Comfort Ez Pen [place]) 32 gauge x 1/4 needle Start: 10-23-2023 [...] Pen Needle, Diab etic (Comfort Ez Pen [place]) 32 gauge x 1/4 needle Start: 01-04-2025 Blood Sugar Diagnostic (Onetouch Verio Test Strips) strip Start: 02-13-2022 End: 02-14-2022 Blood Sugar Diagnostic (Onetouch Verio Test Strips) strip Start: 02-14-2022 End: 04-03-2023 Blood Sugar Diagnostic (Onetouch Verio Test Strips) strip Start: 04-03-2023 End: 05-04-2024 Lancets (Onetouc h Delica Plus Lancet) 33 gauge misc Start: 05-04-2024 End: 05-04-2024 Pen Needle, Diab etic (Comfort Ez Pen [place]) 32 gauge x 1/4 needle Start: 10-23-2023 End: 10-23-2023 Pen Needle, Diab etic (Comfort Ez Pen [place]) 32 gauge x 1/4 needle Start: 10-23-2023 [...] Pen Needle, Diab etic (Comfort Ez Pen [place]) 32 gauge x 1/4 needle Start: 01-04-2025 Blood Sugar Diagnostic (Onetouch Verio Test Strips) strip Start: 02-13-2022 End: 02-14-2022 Blood Sugar Diagnostic (Onetouch Verio Test Strips) strip Start: 02-14-2022 End: 04-03-2023 Blood Sugar Diagnostic (Onetouch Verio Test Strips) strip Start: 04-03-2023 End: 05-04-2024 Lancets (Onetouc h Delica Plus Lancet) 33 gauge misc Start: 05-04-2024 End: 05-04-2024 Pen Needle, Diab etic (Comfort Ez Pen [place]) 32 gauge x 1/4 needle Start: 10-23-2023 End: 10-23-2023 Pen Needle, Diab etic (Comfort Ez Pen [place]) 32 gauge x 1/4 needle Start: 10-23-2023 [...] Pen Needle, Diab etic (Comfort Ez Pen [place]) 32 gauge x 1/4 needle Start: 01-04-2025 Blood Sugar Diagnostic (Onetouch Verio Test Strips) strip Start: 02-13-2022 End: 02-14-2022 Blood Sugar Diagnostic (Onetouch Verio Test Strips) strip Start: 02-14-2022 End: 04-03-2023 Blood Sugar Diagnostic (Onetouch Verio Test Strips) strip Start: 04-03-2023 End: 05-04-2024 Lancets (Onetouc h Delica Plus Lancet) 33 gauge misc Start: 05-04-2024 End: 05-04-2024 Pen Needle, Diab etic (Comfort Ez Pen [place]) 32 gauge x 1/4 needle Start: 10-23-2023 End: 10-23-2023 Pen Needle, Diab etic (Comfort Ez Pen [place]) 32 gauge x 1/4 needle Start: 10-23-2023 [...] Pen Needle, Diab etic (Comfort Ez Pen [place]) 32 gauge x 1/4 needle Start: 01-04-2025 Blood Sugar Diagnostic (Onetouch Verio Test Strips) strip Start: 02-13-2022 End: 02-14-2022 Blood Sugar Diagnostic (Onetouch Verio Test Strips) strip Start: 02-14-2022 End: 04-03-2023 Blood Sugar Diagnostic (Onetouch Verio Test Strips) strip Start: 04-03-2023 End: 05-04-2024 Lancets (Onetouc h Delica Plus Lancet) 33 gauge misc Start: 05-04-2024 End: 05-04-2024 Pen Needle, Diab etic (Comfort Ez Pen [place]) 32 gauge x 1/4 needle Start: 10-23-2023 End: 10-23-2023 Pen Needle, Diab etic (Comfort Ez Pen [place]) 32 gauge x 1/4 needle Start: 10-23-2023 [...] Pen Needle, Diab etic (Comfort Ez Pen [place]) 32 gauge x 1/4 needle Start: 01-04-2025 [...] Pen Needle, Diab etic (Comfort Ez Pen [place]) 32 gauge x 1/4 needle Start: 10-23-2023 End: 10-23-2023 Pen Needle, Diab etic (Comfort Ez Pen [place]) 32 gauge x 1/4 needle Start: 10-23-2023 [...] Pen Needle, Diab etic (Comfort Ez Pen [place]) 32 gauge x 1/4 needle Start: 01-04-2025 [...] Pen Needle, Diab etic (Comfort Ez Pen [place]) 32 gauge x 1/4 needle Start: 10-23-2023 End: 10-23-2023 Pen Needle, Diab etic (Comfort Ez Pen [place]) 32 gauge x 1/4 needle Start: 10-23-2023 [...] Pen Needle, Diab etic (Comfort Ez Pen [place]) 32 gauge x 1/4 needle Start: 01-04-2025 [...] Pen Needle, Diab etic (Comfort Ez Pen [place]) 32 gauge x 1/4 needle Start: 10-23-2023 End: 10-23-2023 Pen Needle, Diab etic (Comfort Ez Pen [place]) 32 gauge x 1/4 needle Start: 10-23-2023 [...] Pen Needle, Diab etic (Comfort Ez Pen [place]) 32 gauge x 1/4 needle Start: 01-04-2025 [...] Pen Needle, Diab etic (Comfort Ez Pen [place]) 32 gauge x 1/4 needle Start: 10-23-2023 End: 10-23-2023 Pen Needle, Diab etic (Comfort Ez Pen [place]) 32 gauge x 1/4 needle Start: 10-23-2023 [...] Pen Needle, Diab etic (Comfort Ez Pen [place]) 32 gauge x 1/4 needle Start: 01-04-2025 [...] Pen Needle, Diab etic (Comfort Ez Pen [place]) 32 gauge x 1/4 needle Start: 10-23-2023 End: 10-23-2023 Pen Needle, Diab etic (Comfort Ez Pen [place]) 32 gauge x 1/4 needle Start: 10-23-2023 [...] Pen Needle, Diab etic (Comfort Ez Pen [place]) 32 gauge x 1/4 needle Start: 01-04-2025 [...] Pen Needle, Diab etic (Comfort Ez Pen [place]) 32 gauge x 1/4 needle Start: 10-23-2023 End: 10-23-2023 Pen Needle, Diab etic (Comfort Ez Pen [place]) 32 gauge x 1/4 needle Start: 10-23-2023 [...] Pen Needle, Diab etic (Comfort Ez Pen [place]) 32 gauge x 1/4 needle Start: 01-04-2025 [...] Pen Needle, Diab etic (Comfort Ez Pen [place]) 32 gauge x 1/4 needle Start: 10-23-2023 End: 10-23-2023 Pen Needle, Diab etic (Comfort Ez Pen [place]) 32 gauge x 1/4 needle Start: 10-23-2023 [...] Assessment Result Facility 01-14-2025 Functional status Chair [facility] Work Phone: 01-13-2025 Functional status None [facility] Work Phone: 01-04-2022 Functional status Ambulates;Up ad jesusita [facility] Work Phone: Mental Status Date Assessment Result Facility 03-29-2025 Cognitive function Voice/Name [facility] Work Phone: 01-14-2025 Cognitive function Voice/Name [facility] Work Phone: 12-03-2023 Cognitive function Voice/Name [facility] Work Phone: 08-20-2023 Cognitive function Level Of Cons ciousness Awake;Alert;Appropriate [facility] Work Phone: 01-08-2022 Cognitive function Level Of Cons ciousness Awake;Alert;Appropriate;Follo ws Commands;Responds to vocal stimuli [facility] Work Phone: 01-03-2022 Cognitive function Voice/Name [facility] Work Phone: 01-02-2022 Cognitive function Level Of Cons ciousness Awake;Alert;Follows Commands [facility] Work Phone: Clinical Notes 08-16-2001 to 03-29-2025 Telephone Encounter - Aide Cloud APRN [facility] - 03/11/2025 11:49 AM EDTTelephone Encounter - Aide Cloud APRN [facility] - 03/11/2025 11:49 AM Adarsh Blackman MD - 03/04/2025 12:00 PM EDT Note Date & Type Note Facility 03-29-2025 Discharge summary [facility] 03-29-2025 Radiology Diagnostic study note [facility] Imaging Services [address], [place] [address] Chest PA and Lateral MR#: [id number] Acct: [id number] Name: COLEMAN DAVIES Rep #: [id number] : 1950 M 74 From: Romana Santos MD PCP: Dr. Briseyda Sinclair MD Status: REG ER Study:Chest PA and Lateral Date of Exam: 03/29/25 Exam# [id number] Ordering Dr: Piper Vance DO PROCEDURE: CHEST [...] Briseyda Sinclair MD; Ravinder Vance DO ~ Dental Services Director: Signed [facility] 03-11-2025 Telephone encounter Note I did. [facility] 03-11-2025 Miscellaneous Notes I did. Name of caller: Kaelyn Contact phone number: [phone] Relationship to Patient: [facility] Outreach Lab Provider: Dr. Blackman Practice: [...] their call: Yes documented in this encounter [facility] 03-05-2025 Telephone encounter Note Name of caller: Kaelyn Contact phone number: [phone] Relationship to Patient: [facility] Provider: Dr. Blackman Practice: Endovascular Chief Complaint/Reason for Call: Patient PRU lab was cancelled due to wrong color tube. If patient testing needs completed please reorder testing. Lab needs a christine tube, not a long top blue. Best time of day caller can be reached: any Patient advised that office/PCP has 24-48 business hours to return their call: Yes [facility] 03-05-2025 Miscellaneous Notes Name of caller: Kaelyn Contact phone number: [phone] Relationship to Patient: [facility] Provider: Dr. Blackman Practice: [...] their call: Yes documented in this encounter [facility] 03-04-2025 History of Present illness Narrative History [...] tablet, , Disp: , Rfl: Droplet Pen [place] 32G X 6 MM [facility], , Disp: , Rfl: famotidine (Pepcid) 20 MG tablet, , Disp: , Rfl: glimepiride (Amaryl) 4 MG tablet, , Disp: , Rfl: isosorbide mononitrate ER (Imdur) 30 MG 24 hr tablet, , Disp: , Rfl: Lancets (OneTouch Delica Plus Lalsqp17N) [facility], USE TO TEST BLOOD SUGAR TWICE [...] cessation counseling: Yes documented in this encounter [email or web address] 02-17-2025 Telephone encounter Note Name of caller: Basim Contact phone number: [phone] Relationship to Patient: spouse/SO Provider: Dr. Blackman [...] business hours to return their call: Yes [email or web address] 02-17-2025 Miscellaneous Notes Name of caller: Basim Contact phone number: [phone] Relationship to Patient: spouse/SO Provider: Dr. Blackman [...] their call: Yes documented in this encounter [facility] 02-01-2025 Progress note Note Date/Time February 01, 2025 2:51pm [facility] Vascular Surgery [address] [place] [address]. [address] [place] [address] OFFICE VISIT Date of Service: 02/01/25 MR#: [id number] Acct: [id number] Name: COLEMAN DAVIES Rep #: [id number] : 1950 Provider: Dr. 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 [place] [address] OFFICE VISIT Date of Service: 02/01/25 MR#: [id number] Acct: [id number] Name: COLEMAN DAVIES Rep #: [id number] : 1950 Provider: Dr. 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 acute January [...] 1:21pm Transient ischemia noneactive February 112024 1:21pm [facility] Work Phone: 1(803) 303-226804-30-2025 Evaluation note* Diagnosis Onset Date Resolution Status Admit Date TIA (transient ischemic attack) reso lved January 13, 2025 3:02pm 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 acute January [...] 12:50pm Transient ischemia noneactive March 172024 12:50pm [facility] Work Phone: 1(269) 489-143404-30-2025 Evaluation note* Diagnosis Onset Date Resolution Status Admit Date TIA (transient ischemic attack) reso lved January 13, 2025 3:02pm 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 acute January [...] 2025 2:06pm 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 acute April 162024 2:06pm Bilateral carotid artery stenosis acute April 28 2:06pm Diarrhea noneactive May 03, 2 025 1:37pm [facility] Work Phone: 1(282) 351-104104-30-2025 Evaluation note* Diagnosis Onset Date Resolution Status Admit Date TIA (transient ischemic attack) reso lved January 13, 2025 3:02pm 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 acute January [...] 2025 2:06pm 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 acute April 162024 2:06pm Bilateral carotid artery stenosis acute April 28 2:06pm 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 acute April 162024 1:37pm Essential hypertension chronic Au 2024 1:37pm Type 2 diabetes mellitus chronic May 03, 2025 1:37pm Diarrhea noneactive May 03, 2 025 1:37pm [facility] Work Phone: 1(105) 675-166602-24-2025 Evaluation note* Diagnosis Onset Date Resolution Status Admit Date 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 acute November 09, 2024 1:18pm Bilateral carotid artery stenosis acute November 09, 2 025 1:18pm Dyslipidemia chronic October 1:18pm Essential hypertension chronic Fe bru2024 1:18pm Type 2 diabetes mellitus chronic November 09, 2024 1:18pm TIA (transient ischemic attack) reso lved January 13, 2025 3:02pm 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 acute January [...] diabetes mellitus chronic January 27, 2025 2:45pm [facility] Work Phone: 1(236) 687-156402-24-2025 Evaluation note* Diagnosis Onset Date Resolution Status Admit Date 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 acute November 09, 2024 1:18pm Bilateral carotid artery stenosis acute November 09, 2 025 1:18pm Dyslipidemia chronic October 1:18pm Essential hypertension chronic Fe bruary 2024 1:18pm Type 2 diabetes mellitus chronic November 09, 2024 1:18pm TIA (transient ischemic attack) resolved January 13, 2025 3:02pm 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 acute January [...] 1:21pm Transient ischemia noneactive February 112024 1:21pm [facility] Work Phone: 1(178) 977-880702-24-2025 Evaluation note* Diagnosis Onset Date Resolution Status Admit Date 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 acute November 09, 2024 1:18pm Bilateral carotid artery stenosis acute November 09, 2 025 1:18pm Dyslipidemia chronic October 1:18pm Essential hypertension chronic Fe bruary 2024 1:18pm Type 2 diabetes mellitus chronic November 09, 2024 1:18pm TIA (transient ischemic attack) reso lved January 13, 2025 3:02pm 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 acute January [...] stenosis, left chronic Ma y 2024 1:31pm [facility] [employer] Work Phone: 1(943) 954-157901-14-2025 Evaluation note* Diagnosis Onset Date Resolution Status Admit Date History of laminectomy acute [facility] 2024 3:24pm Lumbar radiculopathy acute 2024 3:24pm 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 acute November 09, 2024 1:18pm Bilateral carotid artery stenosis acute November 09, 2 025 1:18pm Dyslipidemia chronic October 1:18pm Essential hypertension chronic 2024 1:18pm Type 2 diabetes mellitus chronic November 09, 2024 1:18pm [facility] Work Phone: 1(676) 175-226601-14-2025 Evaluation note* Diagnosis Onset Date Resolution Status Admit Date History of laminectomy acute [facility] 2024 3:24pm Lumbar radiculopathy acute 2024 3:24pm 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 acute November 09, 2024 1:18pm Bilateral carotid artery stenosis acute November 09, 2 025 1:18pm Dyslipidemia chronic October 1:18pm Essential hypertension chronic bru2024 1:18pm Type 2 diabetes mellitus chronic November 09, 2024 1:18pm TIA (transient ischemic attack) reso lved January 13, 2025 3:02pm [facility] Work Phone: 1(864) 715-994712-05-2024 Evaluation note* Diagnosis Onset Date Resolution Status Admit Date History of laminectomy acute De cember 2023 8:14am Lumbar radiculopathy acute Dece mber 2023 8:14am History of laminectomy acute Ja nuary 2024 3:24pm Lumbar radiculopathy acute [facility] 2024 3:24pm 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 acute November 09, 2024 1:18pm Bilateral carotid artery stenosis acute November 09, 2 025 1:18pm Dyslipidemia chronic October 1:18pm Essential hypertension chronic Fe bru2024 1:18pm Type 2 diabetes mellitus chronic November 09, 2024 1:18pm [facility] Work Phone: 1(873) 854-837203-19-2024 History and physical note Author Manuel Gilman [facility] December 03, 2023 6:06am Note Date/Time December 03, 2023 6:0 6am [facility] Medical Records Department [address] [place] [address] History & Physical Exam 12/03/23 0606 MR#: [id number] Acct: [id number] Name: COLEMAN DAVIES Rep #:[id number] : 1950 73 From: Manuel Gilman MD PCP: Dr. Briseyda Sinclair MD Status:[facility] Location: [place] [address] History and Physical Date of Admission: 12/03/23 Visit Reasons: EGD/C-SCOPE DX ANEMIA Chief Complaint: egd/c-scope Operations Intelligence Superintendent Required: No Is patient in pain?: No [...] 32 gauge x 1/4 (Comfort EZ Pen [place]) #100 ea 10/23/23 [Rx Confirmed 11/22/23] insulin glargine U-300 conc 300 unit/mL (1.5 mL) subcutaneous pen (Toujeo SoloStar U-300 Insulin) 36 unit (0.12 mL) subcut DAILY #4.5 mL 10/28/23 [Rx Confirmed 11/22/23] isosorbide mononitrate 30 mg tablet,extended release 24 hr 30 mg PO DAILY #90 tabs 10/31/23 [Rx Confirmed 11/22/23] [facility] Medical History Abnormal stress test 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 Manuel Gilman MD~ Signed [facility] Work Phone: 1(819) 735-442603-19-2024 Procedure [facility] 12-03-2023 Procedure [facility]03-19-2024 Procedure note [facility]03-19-2024 Procedure [facility] 08-20-2023 Hospital Discharge instructions Additional Instructions Creatinine 1.3 today GFR of 54. Sodium 137. White count 8.0. Hemoglobin 14. Glucose 271, anion gap 9. You are dealing with COVID symptoms. Continue oral fluids for hydration. Follow-up with your doctor. Return if any worsening symptoms for reevaluation.[facility] Work Phone: 1(749) 310-643005-27-2022 NoteHNO ID: [id number] Author: Maria Elena Zhong, PT Service: ? [...] 02/09/2022 and treatment included: Therapeutic activities and Self-senior living management. Goals for Episode of Care: created on 12/28/21 through 02/08/22 Goals updated on 01/19/2022 Goals updated on 02/02/2022 through 03/16/22 Goals updated on 02/09/2022. [place] in home exercise program. -- MET Patient [...] Time Minutes (timed/untimed): 30 Maria Elena Zhong [facility]05-27-2022 History of Present illness Narrative* Maria Elena [...] 02/09/2022 and treatment included: Therapeutic activities and Self-senior living management. Goals for Episode of Care: created on 12/28/21 through 02/08/22 Goals updated on 01/19/2022 Goals updated on 02/02/2022 through 03/16/22 Goals updated on 02/09/2022. [place] in home exercise program. -- MET Patient [...] Maria Elena Zhong PT [facility] [place] NoteHNO ID: [id number] Author: Maria Elena Zhong PT Service: ? [...] 01/19/2022 Goals updated on 02/02/2022 through 03/16/22 [place] in home exercise program. -- MET Patient [...] Patient to be seen for Therapeutic exercise (52068) PLAN FOR NEXT VISIT: Continued PT visits [...] shoulder, scapular elev (more content not included)... [facility]05-20-[facility] History of Present illness Narrative* Maria Elena [...] Frequency: 1x/week Planned Treatment Interventions: Therapeutic exercise (15436) PLAN FOR NEXT VISIT: PN next visit, [...] Maria Elena Zhong PT [facility] [place]22 NoteHNO ID: [id number] Author: Maria Elena Zhong PT Service: ? [...] Frequency: 1x/week Planned Treatment Interventions: Therapeutic exercise (19668) PLAN FOR NEXT VISIT: SUBJECTIVE: Patient Reason [...] Time Minutes (timed/untimed): 30 Maria Elena Zhong, [facility]05-13-2022 History of Present illness Narrative* Maria Elena [...] Frequency: 1x/week Planned Treatment Interventions: Therapeutic exercise (26543) PLAN FOR NEXT VISIT: SUBJECTIVE: Patient Reason [...] Maria Elena Zhong PT [facility] [place]22 NoteHNO ID: [id number] Author: Maria Elena Zhong PT Service: ? [...] 12/28/21 through 02/08/22 Goals updated on 01/19/2022. [place] in home exercise program. -- MET Patient [...] Patient to be seen for Therapeutic exercise (61891);Self-senior living management (29578);Therapeutic activities (54762);Patient/Family/Caregiver Education;Manual therapy (47573) SUBJECTIVE: Patient Reason for Visit: Pt. reports [...] Intervention: Patient was educ (more content not included)...[facility] History of Present illness Narrative* Maria Elena [...] 12/28/21 through 02/08/22 Goals updated on 01/19/2022. [place] in home exercise program. -- MET Patient [...] Patient to be seen for Therapeutic exercise (36179);Self-senior living management (27291);Therapeutic activities (60326);Patient/Family/Caregiver Education;Manual therapy (85976) SUBJECTIVE: Patient Reason for Visit: Pt. reports [...] Maria Elena Zhong PT [facility] [place]22 NoteHNO ID: [id number] Author: Maria Elena Zhong PT Service: ? [...] of Care: created on 12/28/21 through 02/08/22 [place] in home exercise program. Patient will decrease [...] Planned: 6 Planned Treatment Interventions: Therapeutic exercise (49008);Self-senior living management (59553);Therapeutic activities (15530);Patient/Family/Caregiver Education;Manual therapy (31013) Patient demonstrates good understanding of plan of [...] tasks this summer. Pt. moved here from [place], [place] 6 months ago. Now lives at [facility]. Patient Goals: don/doff jacket without assistance and return to yard work tasks without limitation due to R shoulder pain Functional Limitations: lifting;throwing;reaching behind back;reaching overhead;use hand with arm at shoulder level Prior Level of Function: Independent without limitations Relevant History Past Relevant Medical Conditions: Cardiac;Diabetes;Hypertension;Kidney Problems Past Relevant Surgical Conditions: Rotator Cuff Repair-Right Preferred Language: Dominican Right or Left Handed: Left Home Environment [...] in relation to the (more content not included)...[facility] 12-28-2021 History of Present illness Narrative* Maria [...] of Care: created on 12/28/21 through 02/08/22 [place] in home exercise program. Patient will decrease [...] Planned: 6 Planned Treatment Interventions: Therapeutic exercise (60942);Self-senior living management (33821);Therapeutic activities (84199);Patient/Family/Caregiver Education;Manual therapy (42439) Patient demonstrates good understanding of plan of [...] tasks this summer. Pt. moved here from [place] 6 months ago. Now lives at [facility]. Patient Goals: don/doff jacket without assistance and return to yard work tasks without limitation due to R shoulder pain Functional Limitations: lifting;throwing;reaching behind back;reaching overhead;use hand with arm at shoulder level Prior Level of Function: Independent without limitations Relevant History Past Relevant Medical Conditions: Cardiac;Diabetes;Hypertension;Kidney Problems Past Relevant Surgical Conditions: Rotator Cuff Repair-Right Preferred Language: Dominican Right or Left Handed: Left Home Environment [...] Maria Elena Zhong PT [facility] [place]* Diagnosis Onset Date Resolution Status Bilateral carotid artery stenosis acute Essential hypertension acute Hypertriglyceridemia acute Multiple lacunar infarcts ac [facility] Presence of stent in coronary artery August, acute Pure hypercholesterolemia ac [facility] Right carotid artery occlusion acute Type 2 diabetes mellitus acu te CKD (chronic kidney disease) stage 3, GFR 30-59 ml/min chronic Hyperglycemia acute Lactic acidosis acute Weakness acute [facility] Work Phone: Discharge summary Author Ravinder Vance [facility] Note Date/Time March 29, 2025 10:1 2am [facility] Medical Records Department [address] [place] [address] Emergency Department Summary 03/29/25 MR#: [id number] Acct: [id number] Name: COLEMAN DAVIES Rep #:[id number] : 1950 74 From: Ravinder Vance DO [...] as well but it resolved after taking [id number] Imodium. 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 Call [facility] ([phone]) or report to the closest Emergency Room. Call 911 if necessary. 03/29/25 0723 <Electronically signed by Ravinder Vance DO> Cosigner Signature (if applicable): CC: Dr. Briseyda Sinclair MD ~ Signed [facility] Work Phone: Evaluation noteThere may be information available, but it has not been provided by the sender.[facility] Work Phone: Evaluation note* Diagnosis Adhesive capsulitis of right shoulder- Primary Adhesive capsulitis of shoulder [facility] Diagnosis Adhesive capsulitis of right shoulder Adhesive capsulitis of shoulder documented [facility] Diagnosis Adhesive capsulitis of right shoulder Adhesive capsulitis of shoulder documented [facility] Diagnosis Adhesive capsulitis of right shoulder Adhesive capsulitis of shoulder documented [facility] Diagnosis Adhesive capsulitis of right shoulder Adhesive capsulitis of shoulder documented [facility] Diagnosis Onset Date Resolution Status Hyperglycemia resolved Lactic acidosis resolved Weakness resolved 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 acute Cardiomyopathy, ischemic acu te Essential hypertension acute History of recent pneumonia acute Hypertriglyceridemia acute Presence of stent in coronary artery August, acute Type 2 diabetes mellitus acu te CKD (chronic kidney disease) stage 3, GFR 30-59 ml/min chronic Weakness resolved 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 acute Bilateral carotid artery stenosis acute Essential hypertension acute Hemorrhagic cerebrovascular accident (CVA) acute History of recent pneumonia acute Hypertriglyceridemia acute Right carotid artery occlusion acute Type 2 diabetes mellitus acu te CKD (chronic kidney disease) stage 3, GFR 30-59 ml/min [facility] Work Phone: Evaluation note* Diagnosis Onset Date Resolution Status 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 Presence of stent in coronary artery August, acute Pure hypercholesterolemia ac [facility] Right carotid artery occlusion acute Type 2 diabetes mellitus acu te CKD (chronic kidney disease) stage 3, GFR 30-59 ml/min [facility] Work Phone: Evaluation note* Diagnosis Onset Date Resolution Status Multiple lacunar infarcts ac 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 Pure hypercholesterolemia ac [facility] CKD (chronic kidney disease) stage 3, GFR 30-59 ml/min chronic Essential hypertension chron ic Type 2 [facility] Carotid artery disease chron ic CKD (chronic kidney disease) stage 3, GFR 30-59 ml/min chronic Coronary artery disease chromium plater ana m Dyslipidemia chronic Essential hypertension chron ic 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 chronic Presence of stent in coronary artery August, chronic Type 2 diabetes mellitus [facility] Work Phone: Evaluation note* Diagnosis Onset Date Resolution Status Carotid artery disease chron ic CKD (chronic kidney disease) stage 3, GFR 30-59 ml/min chronic Coronary artery disease chromium plater ana m Dyslipidemia chronic Essential hypertension chron ic 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 chronic Presence of stent in coronary artery August, chronic Type 2 diabetes mellitus [facility] Work Phone: Evaluation note* Diagnosis Onset Date Resolution Status Acute sinusitis acute 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 acute Bilateral carotid artery stenosis acute Hemorrhagic cerebrovascular accident (CVA) acute Hypertriglyceridemia acute Multiple lacunar infarcts ac [facility] Right carotid artery occlusion acute CKD (chronic kidney disease) stage 3, GFR 30-59 ml/min chronic Coronary artery disease chromium plater ana m Dyslipidemia chronic 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 chronic Presence of stent in coronary artery August, chronic Type 2 diabetes mellitus chr onic Anemia acute History of colon polyps acut e Carotid artery disease chron ic [facility] Work Phone: Evaluation note* Diagnosis Cerebral aneurysm- Primary Cerebral aneurysm, nonruptured Cerebrovascular accident (CVA) due to stenosis of left carotid artery (HCC) [facility] TIA (transient ischemic attack)- Primary Unspecified transient cerebral ischemia Cerebrovascular accident (CVA) due to stenosis of left carotid artery (HCC) documented in this encounter [facility]* Diagnosis TIA (transient ischemic attack)- Primary Unspecified transient cerebral ischemia Cerebrovascular accident (CVA) due to stenosis of left carotid artery (HCC) documented in this encounter [facility]* Diagnosis TIA (transient ischemic attack)- Primary Unspecified transient cerebral ischemia Cerebrovascular accident (CVA) due to stenosis of left carotid artery (HCC) documented in this encounter [facility]* Diagnosis TIA (transient ischemic attack)- Primary Unspecified transient cerebral ischemia Cerebrovascular accident (CVA) due to stenosis of left carotid artery (HCC) documented in this encounter [facility]* Diagnosis Cerebral infarction due to unspecified occlusion or stenosis of left carotid arteries (HCC)- Primary [facility] instructions Additional Instructions Plenty of fluids and rest. You are a little dehydrated. Tylenol as needed for body aches. Follow-up with your doctor if not improving.[facility] Work Phone: Hospital Discharge instructionsAmbulatory Orders* Neurology Location: None [facility] Work Phone: InstructionsNo information available.[facility] Work Phone: Instructions* Attachments The following attachments cannot be sent through Care Everywhere. * Brain Aneurysm (Dominican) * Risk Factors for Stroke (Dominican) * Angiography (Dominican) documented in this [facility] for referral (narrative)No reason for referral information availableWWooster Community Hospital Work Phone: Chief Complaint Chief Complaint Description Start Date right shoulder pain Preliminary chief co mplaint data, not yet signed by the author as of Advance Directives Advance Directive Response Recorded Date/ Time Living Will No January 02, 2022 6:59am Power of Painter Interior Finish No January 02 6:59am Advance Directive Response Recorded Date/ Time Living Will No January 08, 2022 8:34am Power of Painter Interior Finish No January 08 8:34am Advance Directive Response Recorded Date/ Time Advance Directives on File Yes 2021 6:55am Name of Medical Power of Painter Interior Finish Basim Guzmantanner-wi fe June 01, 2022 6:55am Advance Directives Yes May 6:55am Living Will Yes June 01, 2022 6:55am Power of Painter Interior Finish Yes May 6:55am Advance Directive Response Recorded Date/ Time Advance Directives Yes May 5:55am Living Will Yes June 01, 2022 5:55am Power of Painter Interior Finish Yes May 5:55am Advance Directive Response Recorded Date/ Time Advance Directives Yes May 6:55am Living Will Yes June 01, 2022 6:55am Power of Painter Interior Finish Yes May 6:55am Advance Directive Response Recorded Date/ Time Name of Medical Power of Painter Interior Finish BASIM DAVIES August 20, 2023 3:43am Advance Directives Yes May 5:55am Living Will Yes August 20 3:43am Power of Painter Interior Finish Yes August 20, 2023 3:43am Advance Directive Response Recorded Date/ Time Name of Medical Power of Painter Interior Finish BASIM GUZMANTANNER August 20, 2023 3:43am Name of Medical Power of Painter Interior Finish August 24, 2023 7:32am Advance Directives Yes May 5:55am Living Will Yes August 24 7:32am Power of Painter Interior Finish Yes August 24, 2023 7:32am Advance Directive Response Recorded Date/ Time Name of Medical Power of Painter Interior Finish BASIM DAVIES August 20, 2023 4:43am Name of Medical Power of Painter Interior Finish August 24, 2023 8:32am Name of Medical Power of Painter Interior Finish November 29, 2023 2:36pm Advance Directives Yes May 6:55am Living Will Yes November 29, 2023 2:36pm Power of Painter Interior Finish Yes November 28 2:36pm Advance Directive Response Recorded Date/ Time Living Will Yes February 27, 2024 2:04pm Power of Painter Interior Finish Yes February 26 2:04pm Advance Directives Yes May 6:55am Advance Directive Response Recorded Date/ Time Advance Directives Yes May 6:55am Advance Directive Response Recorded Date/ Time Do you have a Healthcare Power of Painter Interior Finish? Yes January 12, 2025 7:05pm Name of Medical Power of Painter Interior Finish January 12, 2025 7:05pm Advance Directives Yes May 6:55am Advance Directive Response Recorded Date/ Time Do you have a Healthcare Power of Painter Interior Finish? Yes January 12, 2025 7:05pm Name of Medical Power of Painter Interior Finish January 12, 2025 7:05pm Do you have a Healthcare Power of Painter Interior Finish? Yes March 29, 2025 6:22am Advance Directives Yes May 6:55am Advance Directive Response Recorded Date/ Time Do you have a Healthcare Power of Painter Interior Finish? Yes January 12, 2025 7:05pm Name of Medical Power of Painter Interior Finish January 12, 2025 7:05pm Do you have a Healthcare Power of Painter Interior Finish? Yes March 29, 2025 6:22am Advance Directives Yes April 16 1:29pm Advance Directive Response Recorded Date/ Time Advance Directives Yes April 16 1:29pm Do you have a Healthcare Power of Painter Interior Finish? Yes January 12, 2025 7:05pm Name of Medical Power of Painter Interior Finish January 12, 2025 7:05pm Do you have a Healthcare Power of Painter Interior Finish? 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[employer] Amb Documentation Amb Documentation HYPERGLYCEMIA, WEAKNESS [...] Lactic acidosis Weakness Atherosclerotic heart disease of mentasta coronary artery without angina pectoris Cardiomyopathy, ischemic Essential hypertension History of recent pneumonia Hypertriglyceridemia Presence of stent in coronary artery Type 2 diabetes mellitus CKD (chronic kidney disease) stage 3, GFR 30-59 ml/min Weakness Atherosclerotic heart disease of mentasta coronary artery without angina pectoris Bilateral carotid [...] for Visit Atherosclerotic hear t disease of mentasta coronary artery without angina pectoris Bilateral carotid [...] GFR 30-59 ml/min Atherosclerotic heart disease of mentasta coronary artery without angina pectoris Cardiomyopathy, ischemic [...] GFR 30-59 ml/min Atherosclerotic heart disease of mentasta coronary artery without angina pectoris Cardiomyopathy, ischemic Essential hypertension Presence of stent in coronary artery Pure hypercholesterolemia Shortness of breath Chief Complaint 6 M FU Reason for Visit Atherosclerotic hear t disease of mentasta coronary artery without angina pectoris Bilateral carotid [...] carotid artery occlusion Atherosclerotic heart disease of mentasta coronary artery without angina pectoris Bilateral carotid [...] Visit Acute sinusitis Atherosclerotic heart disease of mentasta coronary artery without angina pectoris Bilateral carotid [...] 2024 3:24pm 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 November 09, [...] 2024 3:24pm 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 November 09, [...] 2024 3:24pm 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 November 09, [...] Admit Date 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 November 09, 2024 1:18pm Bilateral carotid artery stenosis Februa 2024 1:18pm Dyslipidemia November 09, 2024 1:18pm Essential hypertension November 09 1:18pm Type 2 diabetes mellitus November 09, 2024 1:18pm TIA (transient ischemic attack) January 132024 3:02pm 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 January 27, [...] Admit Date 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 November 09, 2024 1:18pm Bilateral carotid artery stenosis Februa 2024 1:18pm Dyslipidemia November 09, 2024 1:18pm Essential hypertension November 09 1:18pm Type 2 diabetes mellitus November 09, 2024 1:18pm TIA (transient ischemic attack) January 132024 3:02pm 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 January 27, [...] Admit Date 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 November 09, 2024 1:18pm Bilateral carotid artery stenosis Februa 2024 1:18pm Dyslipidemia November 09, 2024 1:18pm Essential hypertension November 09 1:18pm Type 2 diabetes mellitus November 09, 2024 1:18pm TIA (transient ischemic attack) January 132024 3:02pm 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 January 27, [...] 132024 3:02pm 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 January 27, [...] 132024 3:02pm 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 January 27, [...] 132024 3:02pm 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 January 27, [...] 162024 2:06pm 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 April 28, [...] TEST RESULTS April 12, 2025 12:5 0pm [facility] 03/29 CP April 28, 2025 2: 06pm Diarrhea May 03, 2025 1: 37pm E-ORDER May 06, 2025 1: 42pm Dr. Blackman wanted pt seen again Augus t 2024 3:18pm Reason for Visit Admit Date TIA (transient ischemic attack) January 132024 3:02pm 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 January 27, [...] 162024 2:06pm 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 April 28, 2025 2:06pm Bilateral carotid artery stenosis April 28, 2025 2:06pm 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 May 03, [...] Eloy Fragoso [address] [place] [address] Kajal Logan, PT [address] [place] [address] Referral ID Status Reason Start Date Expiration Date V isits Requested Visits Authorized [id number] Authorized 09/16/2021 09/15/2022 99 99 Reason Comments [...] or prosecute any alcohol or drug abuse patient.[facility] the event this information is protected by the Federal Confidentiality of Alcohol and Drug Abuse Patient Records regulations: The Federal rules restrict any use of the information to criminally investigate or prosecute any alcohol or drug abuse patient.[facility] the event this information is protected by the Federal Confidentiality of Alcohol and Drug Abuse Patient Records regulations: The Federal rules restrict any use of the information to criminally investigate or prosecute any alcohol or drug abuse patient.[facility] the event this information is protected by the Federal Confidentiality of Alcohol and Drug Abuse Patient Records regulations: The Federal rules restrict any use of the information to criminally investigate or prosecute any alcohol or drug abuse patient.[facility] the event this information is protected by the Federal Confidentiality of Alcohol and Drug Abuse Patient Records regulations: The Federal rules restrict any use of the information to criminally investigate or prosecute any alcohol or drug abuse patient.[facility] Goals (unrecognized section and content) Goals may [...] section and content) DATE CREATED AUTHOR 02/10/2022 [facility] DATE CREATED AUTHOR AUTHOR'S ORGANIZ ATION 04/05/2025 [facility] DATE CREATED AUTHOR AUTHOR'S ORGANIZ ATION 05/30/2025 [facility] Care Teams (unrecognized sec tion and [...] 2025 End: February 01, 2025 Dr. Briseyda Sicnlair MD Referring Provider Active Start: February 01, [...] February 11, 2025 End: February 11, 2025 Community Fundraiser Relationship Specialty Start Date End Date Briseyda Sinclair [address] [place] [phone] PCP - General Internal Medicine 03/04/25 Community Fundraiser Relationship Specialty Start Date End Date Briseyda Sinclair [address] [place] [address] PCP - General Internal Medicine 03/04/25 Team [...] Active Start: January 18, 2025 Dr. Briseyda Sincliar MD Attending Provider Active Start: January 18, [...] Provider Active S tart: February 19, 2025 Community Fundraiser Relationship Specialty Start Date End Date Dottie Briseyda [address] [place] [phone] PCP - General Internal Medicine 03/04/25 Community Fundraiser Relationship Specialty Start Date End Date Briseyda Sinclair [address] [place] [phone] PCP - General Internal Medicine 03/04/25 Team [...] Provider Active Start: January 13, 2025 Dr. Jefrfey Lord MD Attending Provider Active S tart: [...] May 06, 2025 Dr. Briseyda Sinclair MD Attending Provider [...] May 12, 2025 End: May 12, 2025 Community Fundraiser Relationship Specialty Start Date End Date Briseyda Sinclair [address] [place] [phone] PCP - General Internal Medicine 03/04/25 Community Fundraiser Relationship Specialty Start Date End Date Briseyda Sinclair [address] [place] [phone] PCP - General Internal Medicine 03/04/25 FOR [...] BE BASED ON THE PRIMARY CLINICAL RECORDS. [facility]. provides no warranty or guarantee of the accuracy or completeness of information in this document.
[2025-06-05 06:09] LABS: Magnesium 2.0 mg/dL (1.5-2.2)
[2025-06-05 06:46] LABS: Troponin T High Sens 2 HR 110 ng/L (<=22)
--- NOTE | 2025-06-05 06:53 | ECHOLC_ITS ---
Reason For Study Reason For Study: CORONARY ARTERY DISEASE Procedure This was a limited 2D transthoracic echocardiogram. The study was technically difficult. Contrast injection was performed. Exam performed portable in patient room. Left Ventricle Normal LV size. The left ventricular ejection fraction is 60 %. Mild segmental systolic dysfunction (see wall motion). Septal [place] : Akinetic. The rest of the wall segments are normal. Right Ventricle Normal RV size. Normal systolic function. Atria Normal left atrium. Normal right atrium. Mitral Valve Normal mitral valve. Tricuspid Valve Normal tricuspid valve. Aortic Valve Trisinus/trileaflet aortic valve. Pulmonic Valve Normal pulmonic valve. Great Vessels Normal aortic root. The pulmonary artery is normal size. Inferior vena cava collapse with respiration. Pericardium/Pleural No pericardial effusion. Medication Diluted definity 3ml given slow IV push to enhance endocardial definition. MMode/2D Measurements & Calculations LVIDd: 4.6 cm IVSd: 1.2 cm LAV(MOD- bp): 40.0 ml LVIDs: 3.0 cm LVPWd: 1.1 cm RVDd: 2.6 cm FS: 34.9 % LAV(MOD- bp) Indexed: 20.5 ml/m2 LAV(MOD- sp2): 31.1 ml LAV(MOD- sp4): 47.1 ml SV(MOD- sp4): 78.6 ml LVAd ap4: 37.2 cm2 LVAd ap2: 29.6 cm2 LVLd ap4: 8.7 cm LVLd ap2: 7.7 cm SI(MOD- sp4): 40.2 ml/m2 EDV(MOD-sp4): 129.2 ml EDV(MOD-sp2): 92.8 ml EDV(sp4-el): 135.8 ml EDV(sp2-el): 97.0 ml LVAs ap4: 20.9 cm2 LVAs ap2: 19.6 cm2 LVLs ap4: 7.3 cm LVLs ap2: 6.6 cm ESV(MOD-sp4): 50.6 ml ESV(MOD-sp2): 46.8 ml ESV(sp4-el): 51.2 ml ESV(sp2-el): 49.4 ml EF(MOD-sp4): 60.9 % EF(MOD-sp2): 49.6 % EF(sp4-el): 62.3 % SV(MOD-sp2): 46.0 ml SV(sp4-el): 84.7 ml LA A4 area: 17.5 cm2 SI(MOD-sp2): 23.6 ml/m2 LA dimension(2D): 3.5 cm TAPSE: 2.1 cm RA A4 area: 11.3 cm2 Time Measurements MV dec time: 0.18 sec Doppler Measurements & Calculations MV E max po: 85.9 cm/sec Lat Peak E' Po: 14.5 cm/sec Med Peak E' Po: 13.2 cm/sec MV A max po: 77.7 cm/sec E/E' lat: 5.9 E/E' med: 6.5 MV E/A: 1.1 MV dec slope: 472.3 cm/sec2 ECHO/Echo Limited w/Contrast Interpretation Summary Normal LV size. The left ventricular ejection fraction is 60 %. Mild segmental systolic dysfunction (see wall motion). Septal [place] : Akinetic. Contrast injection was performed. Ordering Physician: Tabby Zuniga Referring Physician: Savanna Sinclair M.D. Performed By: Veronica Oliva RDCS
[2025-06-05] MEDS: 0.9% Saline Lock 10 ML Syringe IV ×4 (07:47→21:26)
--- NOTE | 2025-06-05 07:57 | PN.HOSP_ITS ---
Reason for Visit Chief Complaint: Intractable N/V Subjective Subjective Patient is a 74-year-old male who presented with intractable nausea and vomiting. Patient was found to have acute kidney injury with hyperkalemia admitted to monitored bed for subsequent treatment. Objective Data Objective Data Vital Signs: Vital Signs Temp Pulse Resp BP Pulse Ox O2 Del Method 96.3 F L 88 18 170/70 H 98 Room Air 06/05/25 07:01 06/05/25 07:01 06/05/25 07:01 06/05/25 07:01 06/05/25 07:01 06/05/25 07:30 Oxygen Delivery Method Room Air Weight: 75.8 kg Body Mass Index (BMI) 22.6 Intake & Output: Intake and Output for Last 24 Hours 06/03/25 06/04/25 06/05/25 23:59 23:59 23:59 Intake Total 1000 / 1000 Balance 1000 / 1000 Lab / Micro Data 06/05/25 04:30 06/05/25 08:08 Labs: Laboratory Results - last 24 hr 06/05/25 04:30: WBC 10.5, RBC 3.75 L, Hgb 12.0 L, Hct 35.4 L, MCV 94.4 H, MCH 32.0, MCHC 33.9, RDW Std Deviation 44.4 H, RDW Coeff of Rich 12.9, Plt Count 285, MPV 9.9, Immature Gran % (Auto) 0.500, Neut % (Auto) 82.3 H, Lymph % (Auto) 11.2 L, [place] % (Auto) 5.6, Eos % (Auto) 0.2, Baso % (Auto) 0.2, Absolute Neuts (auto) 8.6 H, Absolute Lymphs (auto) 1.17, Nucleated RBC % 0, Sodium 140, Potassium 6.3 H*, Chloride 100, Carbon Dioxide 11.0 L, Anion Gap 29 H, BUN 92 H, Creatinine 8.74 H*, Estim Creat Clear Calc 7.80 L*, Est GFR (MDRD) Non-Af 6 L, BUN/Creatinine Ratio 10.5, Glucose 104 H, Calcium 10.5, Phosphorus 6.5 H, Magnesium 2.0, Total Bilirubin 0.29, AST 26, ALT 24, Alkaline Phosphatase 84, T roponin T High Sens 116 H* D, Total Protein 6.8, Albumin 3.9, Globulin 2.9, Albumin/Globulin Ratio 1.3 06/05/25 06:25: Troponin T Hi Sens 2 Hr 110 H* Radiography Diagnostic Testing: Radiology Impression Acute Abdomen Series 06/05/25 05:00 IMPRESSION: Unremarkable bowel gas pattern. Mild bilateral basilar atelectatic pulmonary changes. Reading Location: [place] [id number] Rhythm Strip Rhythm Strip: Sinus Rhythm Rate: 85 Ectopy: None Physical Exam Narrative GENERAL: cooperative HEENT: Atraumatic; normocephalic EYES; Anicteric, Normal Conjunctiva NECK; supple, normal thyroid, RESPIRATORY: Diminished to auscultation CARDIOVASCULAR: Regular S1 S2, GI: soft, normoactive bowel sounds, : No Renal angle tenderness; EXTREMITIES: No edema, no clubbing, MUSCULOSKELETAL: no muscle wasting NEURO: Awake; no lateralizing signs. SKIN: No Rash PSYCH; Flat affect Assessment & Plan Assessment/Plan (1) Acute renal failure: (2) Acute uremia: (3) Hyperkalemia, diminished renal excretion: PLAN: Plan Patient is a 74-year-old male who presented with intractable nausea and vomiting. Patient was found to have acute kidney injury with hyperkalemia admitted to monitored bed for subsequent treatment. 1. Acute kidney injury superimposed on CKD stage III ? Patient creatinine from 03/29/2025 was 1.63 creatinine on admission was 8.74. Patient started on IV hydration with serial monitoring of BMPs ordered consult was also placed to nephrology 2. Hyperkalemia ? Secondary to patient JINA as well as concomitant use of lisinopril. Lisinopril held treatment of JINA initiated repeat BMP ordered to evaluate response to therapy ? Patient repeat potassium worsening. Additional Kayexalate 30 g given. Started patient on calcium gluconate insulin and dextrose. Patient also started on bicarb drip decision made to transfer patient to intensive care unit with frequent BMPs ordered. Case was discussed with Dr. Maldonado with nephrology plan is to consider CRRT if patient does not respond to treatment described above 3. Metabolic acidosis ? Secondary to JINA do expect improvement with treatment of underlying etiology .?Started patient on bicarb drip due to worsening potassium levels 4. Acute gastroenteritis ? Plan is to treat symptomatically thought to be etiology of patient's JINA 5. Elevated troponin ? Secondary to demand ischemia from above patient presentation not consistent with ACS 6. Coronary artery disease ? With previous PCI patient is on guideline directed medical therapy 7. Diabetes mellitus type 2 ? Held oral agents did continue patient insulin regimen also placed on Accu- Cheks AC and at bedtime with sliding scale coverage 8. BPH with lower urinary obstructive symptoms - Patient treated with tamsulosin and finasteride 9. Essential hypertension ? Discontinue home meds except for lisinopril given patient presentation 10. Dyslipidemia ?Patient is on statin therapy, continued at home dose 11. DVT prophylaxis ? Subcu heparin Critical time spent in the patient's overall evaluation,decision-making process, review of diagnostic data, adjustment of management, discussion with other providers, nursing nursing and ancillary staff involved in patient's care documentation, 60 . Minutes Charges/Coding Procedures Hospitalists Procedures: 43260 Critical Care 1st Hr
[2025-06-05] MEDS: Albuterol *CONC* 2.5mg/0.5mL VIAL.NEB. 10 MG INHALATION (08:15)
[2025-06-05 08:55] LABS: BUN 92 mg/dL (4-19); Calcium,Total 9.5 mg/dL (7.6-11.0); Chloride 103 mmol/L (98-108); Estimated Creatinine Clearance 8.05 ml/min (50-250); Glucose 95 mg/dL (70-99)
[2025-06-05 09:02] LABS: Anion Gap 29 (5-15); BUN/Creat Ratio 10.7 RATIO (10-20); Carbon Dioxide 9.2 mmol/L (21.0-32.0); Potassium 7.5 mmol/L (3.3-5.1)
[2025-06-05] MEDS: 0.9% Normal Saline (1000mL) 1,000 ML 100 ML IV (09:16)
--- NOTE | 2025-06-05 09:21 | EKG12_ITS ---
Test Reason : dysrythmia Blood Pressure : */* mmHG Vent. Rate : 83 BPM Atrial Rate : 83 BPM P-R Int : 170 ms QRS Dur : 98 ms QT Int : 370 ms P-R-T Axes : 56 -29 77 degrees QTcB Int : 434 ms Normal sinus rhythm Inferior infarct , age undetermined Abnormal ECG When compared with ECG of 05-Jun-2025 04:44, MANUAL COMPARISON REQUIRED DATA IS UNCONFIRMED Confirmed by YING LORENZO, EMIGDIO ([id number]), makeup editor MARLON POE ([id number]) on 06/07/2025 10:34:00 AM Referred By: Herminia Confirmed By: EMIGDIO HE MD
[2025-06-05] MEDS: Insulin Lispro 10 UNIT in Syringe 0 ML 6 UNIT IV (09:25)
[2025-06-05 09:59] LABS: Troponin T High Sens 4 HR 111 ng/L (<=22)
[2025-06-05] MEDS: Pantoprazole Sodium 40 MG in 0.9% Normal Saline (100mL MB+) 100 ML 330 MG IV ×2 (10:11→21:24)
[2025-06-05] MEDS: Lidocaine Jelly 2% 20 ML Syringe (URO-JET) 1 APPLIC TOPICAL (12:15)
--- NOTE | 2025-06-05 12:20 | NURSING ---
urojet was used to place carmichael, cath was inserted w/out difficulty. This RN was unable to inflate balloon. carmichael was pulled back and again inserted w/out diff. balloon was inflated w/minor diff. This RN was able to feel balloon seated in the bladder. To be sure the balloon was inflated correctly, this RN again attempted to check balloon but was unable to either add or pull fluid from the balloon. urine is draining and it is clear/pale yellow. pt denied pain
[2025-06-05 12:21] LABS: BUN 92 mg/dL (4-19); BUN/Creat Ratio 10.7 RATIO (10-20); Calcium,Total 9.4 mg/dL (7.6-11.0); Chloride 102 mmol/L (98-108); Estimated Creatinine Clearance 8.09 ml/min (50-250); Glucose 145 mg/dL (70-99)
[2025-06-05 12:30] LABS: Anion Gap 29 (5-15); Carbon Dioxide 8.2 mmol/L (21.0-32.0); Potassium 7.0 mmol/L (3.3-5.1)
[2025-06-05 12:32] LABS: Mucous, Urine 0 SEEN /hpf (<or=2+); Squamous Epithelial Cells - UA 0 SEEN /hpf (0-5)
[2025-06-05 12:38] LABS: Color, Urine Yellow (Yellow); Glucose, Dipstick 100 mg/dl (Normal); Ketone-Dipstick 5 mg/dl (Negative); Leukocyte Esterase-Dipstick Negative /ul (Negative); Nitrite-Dipstick Negative (Negative); Occult Blood-Urine 25 /ul (Negative); Protein-Dipstick 100 mg/dl (Negative); Specific Gravity, Urine 1.015 (1.002-1.030); Urine Bilirubin Dipstick Negative (Negative)
--- NOTE | 2025-06-05 12:45 | CASEMGMT ---
RN CM Face to Face with patient for initial transition planning/care coordination assessment. RN CM introduced self and role at [facility]. Patient lying in bed, alert and oriented, at bedside. Patient willing to participate in assessment and is able to answer all questions appropriately. Care providers, pharmacy, and demographics verified. Strata: 2 PCP: Dottie Specialists: Bladimir, process development manager; Debbi, Vascular Preferred Pharmacy: [facility] Insurance: [facility], MMO Prescription Benefit: yes Living Will/HPOA: yes, Charley LEUNG: Living Arrangements: Patient lives with in a single story home with 1 step to enter the home. Patient is independent at home. Transportation: self and DME/HHC: Patient denies DME in the home. No previous HHC or SNF Patient wishes to discharge home, denies need for home health at this time. Patient states he has no further needs or concerns at this time. CM to follow for discharge planning needs that may arise. Disposition Plan: Patient to discharge home with family support and follow-up plans in place. Bridgett ACE, RN, CM
[2025-06-05 12:58] LABS: Creatinine, Urine (random) 38.30 mg/dL (39.00-259.00)
[2025-06-05] MEDS: Sodium Bicarbonate 150 MEQ in Dextrose 5%-Water (1000mL Bag) 1,000 ML 250 MEQ IV ×3 (13:03→22:38)
[2025-06-05 13:11] LABS: Red Blood Cells-Urine 0-5 SEEN /hpf (0-5)
[2025-06-05] MEDS: Aspirin E.C. 81 MG Tablet PO (16:04)
[2025-06-05] MEDS: Heparin Injection (Vial) 5,000 UNIT/ML VIAL 5000 UNIT SC ×2 (16:05→21:23)
[2025-06-05 16:32] LABS: Magnesium 1.8 mg/dL (1.5-2.2)
[2025-06-05 16:39] LABS: Anion Gap 30 (5-15); BUN 91 mg/dL (4-19); BUN/Creat Ratio 10.5 RATIO (10-20); Calcium,Total 8.9 mg/dL (7.6-11.0); Carbon Dioxide 10.7 mmol/L (21.0-32.0); Chloride 98 mmol/L (98-108); Estimated Creatinine Clearance 7.98 ml/min (50-250); Glucose 253 mg/dL (70-99); Potassium 6.4 mmol/L (3.3-5.1)
--- NOTE | 2025-06-05 19:05 | CON.PCM.RE_ITS ---
Assessment & Plan Assessment/Plan (1) Acute renal failure: (2) Hyperkalemia, diminished renal excretion: (3) Acute metabolic acidosis: (4) Essential hypertension: (5) Type 2 diabetes mellitus: QUALIFIERS: Diabetes mellitus chcf insulin use: without terminal clerk use Diabetes mellitus complication status: with circulatory complication Diabetes mellitus complication detail: with other circulatory complications Q ualified Code(s): E11.59 - Type 2 diabetes mellitus with other circulatory complications PLAN: Plan Assessment/Plan: The patient is a 74-year-old male with past history of CKD stage G3b, type 2 diabetes mellitus, hypertension, CAD status post PCI, PAD, stroke, hypothyroidism, BPH, iron deficiency anemia, and hyperlipidemia. Patient presented to hospital with 2-day history of intractable nausea/vomiting, anorexia and generalized weakness. Patient was found to have acute kidney injury on chronic kidney disease associated with hyperkalemia and severe metabolic acidosis. Nephrology is asked to the patient because of JINA, metabolic acidosis and hyperkalemia. Acute kidney injury on chronic kidney disease stage G3b. Baseline serum creatinine appears to be around 1.60 to 1.80 mg/dL dating back to around February 2024. Patient is unaware of prior history of CKD. Patient presented to the hospital with serum creatinine of 8.74 mg/dL. Renal ultrasound is negative for hydronephrosis. UA shows 2+ protein and mild ketonuria. There is no RBCs seen in microscopic examination. Fractional secretion of sodium is greater than 1%. My suspicion is had JINA secondary to severe volume depletion due to intractable nausea/vomiting which has led to ischemic ATN. JINA is likely exacerbated by concurrent use of [place] inhibitor prior to admission. Patient appears to be volume depleted, so we will continue to volume expand patient with isotonic sodium bicarbonate infusion. Potassium level is improving with SPS and bicarbonate infusion. Acute metabolic acidosis is also improving with sodium bicarbonate infusion. Therefore, there is no urgent need for hemodialysis tonight. Continue current supportive care. Keep MAP above 65 mmHg. Continue to hold [place] inhibitor. We will monitor patient closely. Agree with checking metabolic panel every 4 hours. Will reassess patient's volume status, acid-base status and electrolytes again tomorrow. Hyperkalemia. Patient presented to the hospital with potassium level of 7.5 mmol/L on 06/05/2025. Hyperkalemia is secondary to JINA on CKD along with metabolic acidosis and concurrent use of lisinopril prior to presentation. Agree with stopping lisinopril. Patient has been treated with SPS x 2. Potassium level is trending down. Will continue to monitor serum potassium serially. As long as potassium is trending down, we do not need to dialyze the patient tonight. Acute metabolic acidosis. Patient has high anion gap metabolic acidosis. She presented with serum bicarbonate level of 9.2 mmol/L. Acute metabolic acidosis is most likely due to JINA on CKD. Will check serum osmolality to see if there is any osmolar gap. Will also check VBG tonight. Continue sodium bicarbonate infusion to mainly treat hyperkalemia. Will follow the trajectory of serum bicarbonate level. HPI Consult Data Date of Consult: 06/05/25 HPI Narrative Reason for Consultation: Acute kidney injury and hyperkalemia HPI Narrative: The patient is a 74-year-old male with past history of CKD stage G3b, type 2 diabetes mellitus, hypertension, CAD status post PCI, PAD, stroke, hypothyroidism, BPH, iron deficiency anemia, and hyperlipidemia. Patient presented to hospital on 06/05/2025 with 2-day history of generalized weakness, nausea, vomiting and anorexia. During workup in the ED, patient was found to have elevated serum creatinine of 8.74 mg/dL and hyperkalemia with potassium level of 7.5 mmol/L. Nephrology is asked to the patient because of JINA on CKD and hyperkalemia. Baseline serum creatinine has been around 1.60 to 1.80 mg/dL prior to this admission. However, patient is unaware of any prior history of CKD before this admission. Patient denies current chest pain or dyspnea. Nausea has improved with antiemetic. He has not vomited since admission to the hospital. Patient does have loose bowel movements, but he did receive sodium polystyrene sulfonate earlier today with sorbitol. Patient denies orthopnea, PND or edema prior to admission. He does have a history of BPH, but he denies history of urinary hesitancy, urgency, frequency or incontinence. Patient denies chronic use of NSAIDs. The patient had been on lisinopril prior to admission. He did take this medication up until the day of presentation to the hospital. There has been no recent prescription medication changes. FOR[facility]LY [facility], [facility] Medical History Cancer Alcohol use History of steroid therapy Back pain TIA (transient ischemic attack) Gastric reflux Shortness of breath on exertion Hypertension Leg cramps History of stress test History of echocardiogram History of Holter monitoring Diarrhea Lower urinary tract symptoms (LUTS) Acute urinary retention Hypothyroidism Lumbar radiculopathy, acute Near syncope Chest pain Wears glasses Insulin dependent diabetes mellitus High cholesterol Stroke/cerebrovascular accident Dietary restriction Former smoker Cardiology follow-up encounter History of heart attack History of hemorrhagic cerebrovascular accident (CVA) without residual deficits Carotid artery disease Coronary artery disease Dyspnea on exertion Abnormal stress test History of recent pneumonia Hypertriglyceridemia Cardiomyopathy, ischemic History of left heart catheterization (LHC) BPH (benign prostatic hyperplasia) Multiple lacunar infarcts Hemorrhagic cerebrovascular accident (CVA) DDD (degenerative disc disease) Pure hypercholesterolemia CKD (chronic kidney disease) stage 3, GFR 30-59 ml/min Right carotid artery occlusion Bilateral carotid artery stenosis Essential hypertension Type 2 diabetes mellitus Presence of stent in coronary artery (~08/28/01) Atherosclerotic heart disease of [place] coronary artery without angina pectoris Home Medications ?Medication ?Instructions ?Recorded ?Last Taken ?Type ascorbic acid (vitamin C) 500 mg 500 mg PO DAILY SUPPL EMENT 07/05/21 01/11/25 History tablet aspirin 81 mg tablet,delayed 81 mg PO DAILY HEART HEAL TH 07/05/21 01/11/25 History release (Adult Low Dose Aspirin) cyanocobalamin (vitamin B-12) 1,000 mcg PO DAILY SUPPL EMENT 07/05/21 01/12/25 History 5,000 mcg disintegrating tablet cholecalciferol (vitamin D3) 25 25 mcg PO BID SUPPLEME NT 07/20/21 01/12/25 History mcg (1,000 unit) tablet lancets 33 gauge (OneTouch Delica #100 ea 05/04/24 Unk nown Rx Plus Lancet) atorvastatin 80 mg tablet 80 mg PO QHS CHOLESTEROL #90 08/10/24 01/11/25 Rx TABLETS carvedilol 12.5 mg tablet 12.5 mg PO BID HEART #180 ta bs 08/10/24 01/12/25 Rx lisinopril 20 mg tablet 20 mg PO DAILY BP #90 TABLET S 08/10/24 01/12/25 Rx metformin 500 mg tablet 1,000 mg (2 x 500 mg) PO BID BLOOD 08/10/24 01/12/25 Rx SUGARS #360 tabs pen needle, diabetic 32 gauge x #100 ea 01/04/25 Unkno wn Rx 1/4 (Comfort EZ Pen [place]) finasteride 5 mg tablet 5 mg PO QHS PROSTATE 5 Unknown History blood sugar diagnostic (OneTouch #100 ea 02/24/25 Unkn own Rx Verio test strips) glimepiride 4 mg tablet 4 mg PO BID BLOOD SUGARS #90 tabs 02/25/25 Unknown Rx tamsulosin 0.4 mg capsule 0.4 mg PO QHS PROSTATE #90 c aps 04/09/25 Unknown Rx insulin glargine U-300 conc 300 36 unit (0.12 mL) subc ut DAILY 04/19/25 Unknown Rx unit/mL (1.5 mL) subcutaneous pen BLOOD SUGARS #4.5 mL (Toujeo SoloStar U-300 Insulin) loratadine 10 mg tablet 10 mg PO QDAY ALLERGY Unknown History magnesium glycinate 100 mg (as 400 mg PO QDAY 05/12/25 Unknown History glycinate) tablet prasugrel HCl 10 mg tablet 10 mg PO QDAY HEART #90 tab s 05/18/25 Unknown Rx (Effient) amlodipine 5 mg tablet 5 mg PO QHS BP 05/28/25 Unkn own History famotidine 20 mg tablet 20 mg PO QHS GERD 05/28/25 U nknown History isosorbide mononitrate 30 mg 30 mg PO QHS HEART Unknown History tablet,extended release 24 hr magnesium glycinate 100 mg (as 400 mg PO QHS SUPPLEMEN T 05/28/25 Unknown History glycinate) tablet Allergy/AdvReac Type Severity Reaction Status Date / Time ticagrelor (From Brilinta) AdvReac Severe Other Verified 06/05/25 04:27 Family History Mother CAD (coronary artery disease) Diabetes Myocardial infarction, Onset Age: 48 Father Diabetes Breast cancer Brother Diabetes Cancer Brother Cancer Prostate Surgical History History of cardiac catheterization History of lumbar discectomy Hx of oral surgery History of coronary artery stent placement History of removal of skin mole Hx of LASIK Hx of colonoscopy History of left heart catheterization (LHC) (~06/01/22) History of arthroscopic surgery of shoulder History of laminectomy (~2007) Presence of coronary angioplasty implant and graft (~08/28/01) Social History household members: spouse housing: house Smoking Status: Former smoker alcohol intake: never details: occasional substance use type: does not use caffeine: Yes Type: tea Number of servings: 1 what type of physical activity do you participate in: none additional social history: Daily aspirin use. Does not use ibuprofen daily. ROS ROS Narrative As per HPI otherwise noncontributory Physical Exam Narrative General: Alert and oriented x3, NAD. HEENT: Normocephalic, atraumatic. Mucous membrane dry without erythema. PERRLA, EOMI. Hearing is intact. Neck: Supple, no JVD. Trachea is midline. No thyromegaly or lymphadenopathy. Cardiovascular: Normal S1, S2. No rubs, murmurs, or gallops. Respiratory: Lungs are clear to auscultation bilaterally. No wheezing, rhonchi, or rales. Abdomen: Normal bowel sounds, soft, nontender, no guarding or rebound, no organomegaly. Extremities: No clubbing, cyanosis, or edema. Musculoskeletal: Full passive range of motion, no joint swelling. Psychiatric: Normal mood and affect. Skin: Warm and dry, no rash. Neurologic: Cranial nerve II to XII are grossly intact. No focal neurologic deficits. Lab / Micro Data 06/05/25 04:30 06/05/25 15:55 Labs: Laboratory Results - last 24 hr 06/05/25 04:30: WBC 10.5, RBC 3.75 L, Hgb 12.0 L, Hct 35.4 L, MCV 94.4 H, MCH 32.0, MCHC 33.9, RDW Std Deviation 44.4 H, RDW Coeff of Rich 12.9, Plt Count 285, MPV 9.9, Immature Gran % (Auto) 0.500, Neut % (Auto) 82.3 H, Lymph % (Auto) 11.2 L, [place] % (Auto) 5.6, Eos % (Auto) 0.2, Baso % (Auto) 0.2, Absolute Neuts (auto) 8.6 H, Absolute Lymphs (auto) 1.17, Nucleated RBC % 0, Sodium 140, Potassium 6.3 H*, Chloride 100, Carbon Dioxide 11.0 L, Anion Gap 29 H, BUN 92 H, Creatinine 8.74 H*, Estim Creat Clear Calc 7.80 L*, Est GFR (MDRD) Non-Af 6 L, BUN/Creatinine Ratio 10.5, Glucose 104 H, Calcium 10.5, Phosphorus 6.5 H, Magnesium 2.0, Total Bilirubin 0.29, AST 26, ALT 24, Alkaline Phosphatase 84, T roponin T High Sens 116 H* D, Total Protein 6.8, Albumin 3.9, Globulin 2.9, Albumin/Globulin Ratio 1.3 06/05/25 06:25: Troponin T Hi Sens 2 Hr 110 H* 06/05/25 08:08: Sodium 140, Potassium 7.5 H*, Chloride 103, Carbon Dioxide 9.2 L*, Anion Gap 29 H, BUN 92 H, Creatinine 8.63 H*, Estim Creat Clear Calc 8.05 L* , Est GFR (MDRD) Non-Af 6 L, BUN/Creatinine Ratio 10.7, Glucose 95, Calcium 9.5, Troponin T Hi Sens 4Hr 111 H* 06/05/25 09:14: POC Glucose 90 06/05/25 10:38: POC Glucose 165 H 06/05/25 11:40: Sodium 138, Potassium 7.0 H*, Chloride 102, Carbon Dioxide 8.2 L*, Anion Gap 29 H, BUN 92 H, Creatinine 8.59 H*, Estim Creat Clear Calc 8.09 L* , Est GFR (MDRD) Non-Af 6 L, BUN/Creatinine Ratio 10.7, Glucose 145 H, Calcium 9.4 06/05/25 12:10: Urine Color Yellow, Urine Clarity Clear, Urine pH 6.0, Ur Specific [place] 1.015, Urine Protein 100 H, Urine Glucose (UA) 100 H, Urine Ketones 5 H, Urine Occult Blood 25 H, Urine Nitrite Negative, Urine Bilirubin Negative, Urine Urobilinogen Normal, Ur Leukocyte Esterase Negative, Urine RBC 0-5 SEEN, Urine WBC 0-5 SEEN, Ur Squamous Epith Cells 0 SEEN, Ur Renal Epithelial Cell 0-5 SEEN, Urine Bacteria 0 SEEN, Urine Mucus 0 SEEN, Ur Random Sodium 105, Urine Creatinine 38.30 L 06/05/25 15:55: Sodium 138, Potassium 6.4 H*, Chloride 98, Carbon Dioxide 10.7 L , Anion Gap 30 H, BUN 91 H, Creatinine 8.71 H*, Estim Creat Clear Calc 7.98 L*, Est GFR (MDRD) Non-Af 6 L, BUN/Creatinine Ratio 10.5, Glucose 253 H, Calcium 8.9, Phosphorus 7.5 H, Magnesium 1.8 Rhythm Strip Rhythm Strip: Sinus Rhythm Rate: 85 Ectopy: None Imaging Radiology Impression Acute Abdomen Series 06/05/25 05:00 IMPRESSION: Unremarkable bowel gas pattern. Mild bilateral basilar atelectatic pulmonary changes. Reading [id number]ound 06/05/25 05:50 IMPRESSION: Right renal cyst. Reading Location: [facility] Echocardiogram 06/05/25 06:53 Interpretation Summary Normal LV size. The left ventricular ejection fraction is 60 %. Mild segmental systolic dysfunction (see wall motion). Septal [place] : Akinetic. Contrast injection was performed. Ordering Physician: Tabby Zuniga Referring Physician: Savanna Sinclair M.D. Performed By: Veronica Oliva RDCS
[2025-06-05 20:53] LABS: SITE Not entered; VBG BASE EXCESS -7 mmol/L (-1.0-3.5); VBG PO2 184 mmHg (25-40); VBG SO2 100 % (50-70); VBG TCO2 18 mmol/L (23-33)
[2025-06-05 21:00] LABS: CPK Total, Creatine Kinase 200 U/L (24-195)
[2025-06-05 21:05] LABS: Anion Gap 27 (5-15); BUN 92 mg/dL (4-19); BUN/Creat Ratio 10.6 RATIO (10-20); Calcium,Total 8.7 mg/dL (7.6-11.0); Carbon Dioxide 15.0 mmol/L (21.0-32.0); Chloride 96 mmol/L (98-108); Estimated Creatinine Clearance 8.02 ml/min (50-250); Glucose 262 mg/dL (70-99); Potassium 5.1 mmol/L (3.3-5.1)
[2025-06-05 21:22] LABS: Osmolality, Serum 336 mOsm/KG (280-301)
[2025-06-06] VITALS (26 sets, daily range): BP systolic 110–150; BP diastolic 54–97; PULSE 80–95; RESP 10–20; TEMP 36.4–37.5; O2SAT 92–98; BMI 24.4
[2025-06-06 01:16] LABS: Anion Gap 25 (5-15); BUN 93 mg/dL (4-19); BUN/Creat Ratio 10.4 RATIO (10-20); Calcium,Total 8.3 mg/dL (7.6-11.0); Carbon Dioxide 18.1 mmol/L (21.0-32.0); Chloride 95 mmol/L (98-108); Estimated Creatinine Clearance 7.82 ml/min (50-250); Glucose 278 mg/dL (70-99); Potassium 4.6 mmol/L (3.3-5.1)
[2025-06-06] MEDS: Sodium Bicarbonate 150 MEQ in Dextrose 5%-Water (1000mL Bag) 1,000 ML 250 MEQ IV (02:53)
[2025-06-06 04:22] LABS: Hematocrit 25.8 % (40-54); Hemoglobin 9.1 g/dL (13.0-16.5); Immature Granulocytes Count 0.030 X10^3/uL (0.0-0.0); Mean Corp Hgb Conc 35.3 g/dL (32-36); Mean Corpuscular Volume 90.8 fL (80-94); Mean Platelet Vol. 10.0 fl (6.2-12.0); NRBC Flagged by Analyzer 0 % (0-5); Platelet Count 225 K/mm3 (150-450); RBC Distribution Width CV 13.0 % (11.6-14.6); RBC Distribution Width SD 43.1 fl (35.1-43.9); Red Blood Count 2.84 M/mm3 (4.6-6.2); White Blood Count 8.7 K/mm3 (4.4-11.0)
[2025-06-06 04:54] LABS: Cholesterol 109 mg/dL (<=200); Low Density Lipoprotein Calc. 43 mg/dL; Triglycerides 175 mg/dL; Very Low Density Lipoprotein 35 mg/dL (5-40); cholesterol:hdl ratio screen 3.54
[2025-06-06 04:58] LABS: AST(SGOT) 20 U/L (<=37); Alanine Aminotransfer ALT/SGPT 19 U/L (<=46); Albumin, Serum 2.7 g/dL (3.4-4.8); Alkaline Phosphatase 55 U/L (40-129); Anion Gap 22 (5-15); BUN 93 mg/dL (4-19); BUN/Creat Ratio 10.0 RATIO (10-20); Calcium,Total 8.1 mg/dL (7.6-11.0); Carbon Dioxide 22.4 mmol/L (21.0-32.0); Chloride 94 mmol/L (98-108); Estimated Creatinine Clearance 7.48 ml/min (50-250); Globulin 1.9 g/dL (2.2-4.2); Glucose 293 mg/dL (70-99); Potassium 4.2 mmol/L (3.3-5.1)
[2025-06-06 07:44] LABS: Magnesium 1.6 mg/dL (1.5-2.2)
--- NOTE | 2025-06-06 07:52 | PN.HOSP_ITS ---
Reason for Visit Chief Complaint: Intractable N/V Subjective Subjective Patient was transferred to the intensive care unit from PCU given the significant elevation in her potassium level. Aggressive treatment with Kayexalate bicarb insulin dextrose as well as albuterol initiated. Patient potassium down to 4.6 this a.m. Creatinine and BUN however did not improve. Patient was also found to be acidotic and was on bicarb drip bicarb drip has since been weaned off Objective Data Objective Data Vital Signs: Vital Signs Temp Pulse Resp BP Pulse Ox O2 Del Method O2 Flow Rate 98.2 F 92 15 142/59 H 94 Nasal Cannula 2 06/06/25 04:00 06/06/25 06:00 06/06/25 06:00 06/06/25 06:00 06/06/25 06:00 06/06/25 06:00 06/06/25 06:00 Oxygen Flow Rate (L/min) 2 Oxygen Delivery Method Nasal Cannula Weight: 81.919 kg Body Mass Index (BMI) 24.4 Intake & Output: Intake and Output for Last 24 Hours 06/04/25 06/05/25 06/06/25 23:59 23:59 23:59 Intake Total 5750.00 / 5750.00 1062.5 / 1062.5 Output Total 125 / 195 145 / 145 Balance 5625.00 / 5555.00 917.5 / 917.5 Lab / Micro Data 06/06/25 04:10 06/06/25 04:10 Labs: Laboratory Results - last 24 hr 06/05/25 08:08: Sodium 140, Potassium 7.5 H*, Chloride 103, Carbon Dioxide 9.2 L*, Anion Gap 29 H, BUN 92 H, Creatinine 8.63 H*, Estim Creat Clear Calc 8.05 L* , Est GFR (MDRD) Non-Af 6 L, BUN/Creatinine Ratio 10.7, Glucose 95, Calcium 9.5, Troponin T Hi Sens 4Hr 111 H* 06/05/25 09:14: POC Glucose 90 06/05/25 10:38: POC Glucose 165 H 06/05/25 11:40: Sodium 138, Potassium 7.0 H*, Chloride 102, Carbon Dioxide 8.2 L*, Anion Gap 29 H, BUN 92 H, Creatinine 8.59 H*, Estim Creat Clear Calc 8.09 L* , Est GFR (MDRD) Non-Af 6 L, BUN/Creatinine Ratio 10.7, Glucose 145 H, Calcium 9.4 06/05/25 12:10: Urine Color Yellow, Urine Clarity Clear, Urine pH 6.0, Ur Specific [place] 1.015, Urine Protein 100 H, Urine Glucose (UA) 100 H, Urine Ketones 5 H, Urine Occult Blood 25 H, Urine Nitrite Negative, Urine Bilirubin Negative, Urine Urobilinogen Normal, Ur Leukocyte Esterase Negative, Urine RBC 0-5 SEEN, Urine WBC 0-5 SEEN, Ur Squamous Epith Cells 0 SEEN, Ur Renal Epithelial Cell 0-5 SEEN, Urine Bacteria 0 SEEN, Urine Mucus 0 SEEN, Ur Random Sodium 105, Urine Creatinine 38.30 L 06/05/25 15:55: Sodium 138, Potassium 6.4 H*, Chloride 98, Carbon Dioxide 10.7 L , Anion Gap 30 H, BUN 91 H, Creatinine 8.71 H*, Estim Creat Clear Calc 7.98 L*, Est GFR (MDRD) Non-Af 6 L, BUN/Creatinine Ratio 10.5, Glucose 253 H, Calcium 8.9, Phosphorus 7.5 H, Magnesium 1.8 06/05/25 20:31: Sodium 139, Potassium 5.1, Chloride 96 L, Carbon Dioxide 15.0 L, Anion Gap 27 H, BUN 92 H, Creatinine 8.66 H*, Estim Creat Clear Calc 8.02 L*, E st GFR (MDRD) Non-Af 6 L, BUN/Creatinine Ratio 10.6, Glucose 262 H, Serum Osmolality 336 H, Calcium 8.7, Total Creatine Kinase 200 H 06/05/25 21:20: POC Glucose 219 H 06/06/25 00:24: Sodium 138, Potassium 4.6, Chloride 95 L, Carbon Dioxide 18.1 L, Anion Gap 25 H, BUN 93 H, Creatinine 8.88 H*, Estim Creat Clear Calc 7.82 L*, E st GFR (MDRD) Non-Af 6 L, BUN/Creatinine Ratio 10.4, Glucose 278 H, Calcium 8.3 06/06/25 00:31: POC Glucose 246 H 06/06/25 04:10: WBC 8.7, RBC 2.84 L, Hgb 9.1 L, Hct 25.8 L, MCV 90.8, MCH 32.0, MCHC 35.3, RDW Std Deviation 43.1, RDW Coeff of Rich 13.0, Plt Count 225, MPV 10.0, Immature Gran % (Auto) 0.300, Neut % (Auto) 68.8, Lymph % (Auto) 13.7 L, M melanie % (Auto) 16.1 H, Eos % (Auto) 0.9, Baso % (Auto) 0.2, Absolute Neuts (auto) 6.0, Absolute Lymphs (auto) 1.19, Nucleated RBC % 0, Sodium 138, Potassium 4.2, Chloride 94 L, Carbon Dioxide 22.4, Anion Gap 22 H, BUN 93 H, Creatinine 9.29 H* , Estim Creat Clear Calc 7.48 L*, Est GFR (MDRD) Non-Af 5 L, BUN/Creatinine Ratio 10.0, Glucose 293 H, Calcium 8.1, Phosphorus 6.4 H, Magnesium 1.6, Total Bilirubin 0.26, AST 20, ALT 19, Alkaline Phosphatase 55, Total Protein 4.6 L, A lbumin 2.7 L, Globulin 1.9 L, Albumin/Globulin Ratio 1.4, Triglycerides 175, Cholesterol 109, LDL Cholesterol, Calc 43, VLDL Cholesterol 35, HDL Cholesterol 31 L, Cholesterol/HDL Ratio 3.54 06/06/25 06:07: POC Glucose 268 H ABG Data ABG results: ABG 06/05/25 20:48 Specimen Type JUDY Sample Site Not entered VBG pH 7.44 H VBG pO2 184 H VBG HCO3 17 L VBG Total CO2 18 L VBG O2 Sat (Calc) 100 H VBG Base Excess -7 L POC Mix VBG pCO2 Pt Tmp 24.8 L O2 Delivery Device Not entered Radiography Diagnostic Testing: Radiology Impression Renal Ultrasound 06/05/25 05:50 IMPRESSION: Right renal cyst. Reading Location: [id number] Echocardiogram 06/05/25 06:53 Interpretation Summary Normal LV size. The left ventricular ejection fraction is 60 %. Mild segmental systolic dysfunction (see wall motion). Septal [place] : Akinetic. Contrast injection was performed. Ordering Physician: Tabby Zuniga Referring Physician: Savanna Sinclair M.D. Performed By: Veronica Oliva RDCS Rhythm Strip Rhythm Strip: Sinus Rhythm Rate: 85 Ectopy: None Physical Exam Narrative GENERAL: cooperative HEENT: Atraumatic; normocephalic EYES; Anicteric, Normal Conjunctiva NECK; supple, normal thyroid, RESPIRATORY: Diminished to auscultation with bibasilar rales CARDIOVASCULAR: Regular S1 S2, GI: soft, normoactive bowel sounds, : No Renal angle tenderness; EXTREMITIES: Edema of both upper and lower extremities MUSCULOSKELETAL: no muscle wasting NEURO: Awake; no lateralizing signs. SKIN: No Rash PSYCH; Flat affect Assessment & Plan Assessment/Plan (1) Acute renal failure: (2) Acute uremia: (3) Hyperkalemia, diminished renal excretion: PLAN: Plan Patient is a 74-year-old male who presented with intractable nausea and vomiting. Patient was found to have acute kidney injury with hyperkalemia admitted to monitored bed for subsequent treatment. 1. Acute kidney injury superimposed on CKD stage III ? Patient creatinine from 03/29/2025 was 1.63 creatinine on admission was 8.74. Patient started on IV hydration with serial monitoring of BMPs ordered consult was also placed to nephrology ? 06/06/2025; patient creatinine continues to worsen up to 9.29. Case discussed with Dr. Browning with nephrology if there is no improvement following adjustment of patient IV fluid plan will be for patient to undergo temporary dialysis 2. Hyperkalemia ? Secondary to patient JINA as well as concomitant use of lisinopril. Lisinopril held treatment of JINA initiated repeat BMP ordered to evaluate response to therapy ? Patient repeat potassium worsening. Additional Kayexalate 30 g given. Started patient on calcium gluconate insulin and dextrose. Patient also started on bicarb drip decision made to transfer patient to intensive care unit with frequent BMPs ordered. Case was discussed with Dr. Maldonado with nephrology plan is to consider CRRT if patient does not respond to treatment described above ? 06/06/2025; patient hyperkalemia was treated aggressively potassium down to 4.2 3. Metabolic acidosis ? Secondary to JINA do expect improvement with treatment of underlying etiology .?Started patient on bicarb drip due to worsening potassium levels ? 06/06/2025; patient acidosis resolved discontinued bicarb drip 4. Acute gastroenteritis ? Plan is to treat symptomatically thought to be etiology of patient's JINA 5. Elevated troponin ? Secondary to demand ischemia from above patient presentation not consistent with ACS 6. Coronary artery disease ? With previous PCI patient is on guideline directed medical therapy 7. Diabetes mellitus type 2 ? Held oral agents did continue patient insulin regimen also placed on Accu- Cheks AC and at bedtime with sliding scale coverage 8. BPH with lower urinary obstructive symptoms - Patient treated with tamsulosin and finasteride 9. Essential hypertension ? Discontinue home meds except for lisinopril given patient presentation 10. Dyslipidemia ?Patient is on statin therapy, continued at home dose 11. Anemia ? Secondary to chronic disorder monitoring H&H and transfuse if patient becomes symptomatic or hemoglobin falls below 7 12. Hyperphosphatemia ? Secondary to patient impaired kidney function monitoring with daily phosphate levels 13. Hematuria ? Thought to be secondary to trauma from Bolaños catheter being pulled, case was discussed with nursing staff Bolaños catheter change in if hematuria does not improve plan will be to start CBI 14. DVT prophylaxis ? Subcu heparin ? Low threshold to discontinue subcu heparin if hematuria persist 15. Generalized edema ? Secondary to aggressive IV fluid resuscitation for patient's JINA. Patient kidney function however did not respond to fluids. Decision was therefore made to give 40 of Lasix given the extent edema and bibasilar crackles Charges/Coding Visit Charges Inpatient E&M: 58690 Subs Hosp L3
[2025-06-06] MEDS: 0.9% Saline Lock 10 ML Syringe IV (08:58)
[2025-06-06] MEDS: Lactated Ringers 1,000 ML 100 ML IV ×2 (08:58→18:37)
[2025-06-06] MEDS: Aspirin E.C. 81 MG Tablet PO (09:04)
[2025-06-06] MEDS: Heparin Injection (Vial) 5,000 UNIT/ML VIAL 5000 UNIT SC ×2 (09:05→21:31)
[2025-06-06] MEDS: Insulin Glargine-YFGN 100 UNIT/ML Pen 36 UNIT SC (09:11)
[2025-06-06] MEDS: Lidocaine Jelly 2% 20 ML Syringe (URO-JET) 1 APPLIC TOPICAL (10:00)
[2025-06-06] MEDS: Pantoprazole Sodium 40 MG in 0.9% Normal Saline (100mL MB+) 100 ML 330 MG IV ×2 (11:29→21:31)
[2025-06-07] VITALS (36 sets, daily range): BP systolic 115–175; BP diastolic 57–86; PULSE 73–94; RESP 11–20; TEMP 36.2–37.1; O2SAT 86–99; BMI 24.8; BMI 24.7
[2025-06-07 05:29] LABS: Hematocrit 26.7 % (40-54); Hemoglobin 9.4 g/dL (13.0-16.5); Immature Granulocytes Count 0.030 X10^3/uL (0.0-0.0); Mean Corp Hgb Conc 35.2 g/dL (32-36); Mean Corpuscular Volume 90.8 fL (80-94); Mean Platelet Vol. 10.1 fl (6.2-12.0); NRBC Flagged by Analyzer 0 % (0-5); Platelet Count 231 K/mm3 (150-450); RBC Distribution Width CV 13.2 % (11.6-14.6); RBC Distribution Width SD 43.7 fl (35.1-43.9); Red Blood Count 2.94 M/mm3 (4.6-6.2); White Blood Count 8.5 K/mm3 (4.4-11.0)
[2025-06-07 05:44] LABS: Magnesium 1.7 mg/dL (1.5-2.2)
[2025-06-07 05:50] LABS: AST(SGOT) 22 U/L (<=37); Alanine Aminotransfer ALT/SGPT 20 U/L (<=46); Albumin, Serum 2.8 g/dL (3.4-4.8); Alkaline Phosphatase 53 U/L (40-129); Anion Gap 22 (5-15); BUN 98 mg/dL (4-19); BUN/Creat Ratio 9.2 RATIO (10-20); Calcium,Total 8.0 mg/dL (7.6-11.0); Carbon Dioxide 24.3 mmol/L (21.0-32.0); Chloride 94 mmol/L (98-108); Estimated Creatinine Clearance 6.65 ml/min (50-250); Globulin 1.9 g/dL (2.2-4.2); Glucose 62 mg/dL (70-99); Potassium 3.8 mmol/L (3.3-5.1)
[2025-06-07] MEDS: Lactated Ringers 1,000 ML 100 ML IV (06:05)
--- NOTE | 2025-06-07 07:11 | PCM.PN.HOSP ---
Reason for Visit Chief Complaint: Intractable N/V Subjective Subjective No significant change in urine output. Plan is to start dialysis today. Discussed with patient and for need of temporary dialysis catheter and what to expect. They are agreeable. We also did discuss that he may need a kidney biopsy. Patient does report that he is noticing his upper extremities feel somewhat swollen and tight. Objective Data Objective Data Vital Signs: Vital Signs Temp Pulse Resp BP Pulse Ox O2 Del Method O2 Flow Rate 97.4 F L 84 13 154/67 H 96 Room Air 2 06/07/25 05:00 06/07/25 07:00 06/07/25 07:00 06/07/25 07:00 06/07/25 07:00 06/07/25 07:00 06/07/25 05:00 Oxygen Flow Rate (L/min) 2 Oxygen Delivery Method Room Air Weight: 83.189 kg Body Mass Index (BMI) 24.8 Intake & Output: Intake and Output for Last 24 Hours 06/05/25 06/06/25 06/07/25 23:59 23:59 23:59 Intake Total 5750.00 / 5750.00 4277.5 / 4277.5 938.33 / 938.33 Output Total 125 / 195 220 / 220 150 / 150 Balance 5625.00 / 5555.00 4057.5 / 4057.5 788.33 / 788.33 Lab / Micro Data 06/07/25 05:10 06/07/25 05:10 Labs: Laboratory Results - last 24 hr 06/06/25 04:10: Phosphorus 6.4 H, Magnesium 1.6 06/06/25 12:28: POC Glucose 154 H 06/06/25 16:29: POC Glucose 119 H 06/06/25 21:41: POC Glucose 78 06/07/25 05:10: WBC 8.5, RBC 2.94 L, Hgb 9.4 L, Hct 26.7 L, MCV 90.8, MCH 32.0, MCHC 35.2, RDW Std Deviation 43.7, RDW Coeff of Rich 13.2, Plt Count 231, MPV 10.1, Immature Gran % (Auto) 0.400, Neut % (Auto) 71.0 H, Lymph % (Auto) 12.1 L, [place] % (Auto) 14.5 H, Eos % (Auto) 1.9, Baso % (Auto) 0.1, Absolute Neuts (auto) 6.0, Absolute Lymphs (auto) 1.03, Nucleated RBC % 0, Sodium 140, Potassium 3.8, Chloride 94 L, Carbon Dioxide 24.3, Anion Gap 22 H, BUN 98 H, Creatinine 10.70 H*, Estim Creat Clear Calc 6.65 L*, Est GFR (MDRD) Non-Af 5 L, BUN/Creatinine Ratio 9.2 L, Glucose 62 L, Calcium 8.0, Magnesium 1.7, Total Bilirubin 0.24, AST 22, ALT 20, Alkaline Phosphatase 53, Total Protein 4.7 L, Albumin 2.8 L, Globulin 1.9 L, Albumin/Globulin Ratio 1.5 06/07/25 06:46: POC Glucose 97 Rhythm Strip Rhythm Strip: Sinus Rhythm Rate: 85 Ectopy: None Physical Exam Const alert, oriented x3, no apparent distress and average body habitus; Negative for healthy appearing Constitutional Narrative: Older, white male, reclining in chair at the bedside, at bedside, currently appears comfortable, does not appear toxic HEENT head/scalp atraumatic and moist oral mucous membranes Head and Scalp: normocephalic Resp normal respiratory effort, no retractions, no use of accessory muscles and clear to auscultation bilaterally Auscultation: Negative for rales, rhonchi or wheezes Cardio regular rate, regular rhythm, S1 normal heart sound, S2 normal heart sound, no murmurs, no rub, no gallops and no clicks GI normal to inspection, nondistended, normoactive bowel sounds, soft to palpation and non-tender Narrative: Bolaños catheter in place with hematuria noted. Urine output is minimal Extremity Extremity Narrative: Trace to 1+ bilateral lower extremity edema, no cyanosis or clubbing, trace lower extremity edema Neuro moves all extremities and no focal motor deficits Neuro Narrative: Generalized weakness noted Psych affect normal Psych Narrative: Intermittently tearful with discussion Assessment & Plan Assessment/Plan (1) Hypoglycemia: (2) Acute metabolic acidosis: (3) Hyperkalemia, diminished renal excretion: (4) Acute renal failure: (5) Acute uremia: PLAN: Plan JINA on CKD stage IIIb - Baseline creatinine is between 1.4 and 1.6 as of March 2025 - Creatinine is now up to 10 - Renal ultrasound is unremarkable - At this point renal failure is unexplained I did not improve at all with IV fluids - Discontinue IV fluids - Plan is for temporary dialysis catheter placement and initiation of hemodialysis - Will likely need renal biopsy - Hold Effient-->d/w Dr. Garrison - Continue Bolaños and monitor for renal recovery Hyperkalemia - Resolved Acute hypoglycemia - Suspect related to insulin use and worsening renal function - Will back off on insulin to 22 units - Continue SSI - Continue to follow with Accu-Cheks Anion gap metabolic acidosis - Initially required some bicarb but since bicarb is normalized - Continue to monitor with BMP but should improve with dialysis - Anion gap should closed with dialysis Acute on chronic anemia - Down significantly from admission however has been getting quite a bit of fluids - No signs of acute drop at this time - Will continue to monitor - Baseline appears to be between 11 and 13 - Repeat CBC in a.m. CAD/carotid artery stenosis/essential hypertension/hyperlipidemia/history of TIA - No stents within the last 12 months - Effient on hold for potential renal biopsy --> discussed with cardiology - continue home aspirin - Continue home carvedilol - continue home amlodipine - Lisinopril on hold due to renal dysfunction - Continue isosorbide mononitrate - Follows with vascular and cardiology as an outpatient DM-2 - Hold metformin - Hold glimepiride - Continue insulin but reduced dose due to hypoglycemia likely related to decreased clearance with renal dysfunction checks as ordered - SSI GERD - Continue famotidine Seasonal allergies - Continue home loratadine 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 - Bolaños in place DVT prophylaxis - Continue subcu heparin CODE STATUS - Full code Charges/Coding Visit Charges Inpatient E&M: 85082 Subs Hosp L2
[2025-06-07] MEDS: Aspirin E.C. 81 MG Tablet PO (10:03)
[2025-06-07] MEDS: Insulin Glargine-YFGN 100 UNIT/ML Pen 22 UNIT SC (10:04)
[2025-06-07] MEDS: Heparin Injection (Vial) 5,000 UNIT/ML VIAL 5000 UNIT SC (10:04)
[2025-06-07] MEDS: Pantoprazole Sodium 40 MG in 0.9% Normal Saline (100mL MB+) 100 ML 330 MG IV (10:06)
[2025-06-07] MEDS: 0.9% Saline Lock 10 ML Syringe IV ×2 (10:07→12:42)
--- NOTE | 2025-06-07 10:55 | PCM.PN.REN ---
Subjective Subjective No new complaints today. Objective Data Objective Data Vital Signs: Vital Signs Temp Pulse Resp BP Pulse Ox O2 Del Method O2 Flow Rate 97.4 F L 84 13 154/67 H 96 Room Air 2 06/07/25 05:00 06/07/25 07:00 06/07/25 07:00 06/07/25 07:00 06/07/25 07:00 06/07/25 07:00 06/07/25 05:00 Oxygen Flow Rate (L/min) 2 Oxygen Delivery Method Room Air Weight: 83.189 kg Body Mass Index (BMI) 24.8 Intake & Output: Intake and Output for Last 24 Hours 06/05/25 06/06/25 06/07/25 23:59 23:59 23:59 Intake Total 5750.00 / 5750.00 4277.5 / 4277.5 1230.00 / 1230.00 Output Total 125 / 195 220 / 220 150 / 150 Balance 5625.00 / 5555.00 4057.5 / 4057.5 1080.00 / 1080.00 Lab / Micro Data 06/07/25 05:10 06/07/25 05:10 Labs: Laboratory Results - last 24 hr 06/06/25 12:28: POC Glucose 154 H 06/06/25 16:29: POC Glucose 119 H 06/06/25 21:41: POC Glucose 78 06/07/25 05:10: WBC 8.5, RBC 2.94 L, Hgb 9.4 L, Hct 26.7 L, MCV 90.8, MCH 32.0, MCHC 35.2, RDW Std Deviation 43.7, RDW Coeff of Rich 13.2, Plt Count 231, MPV 10.1, Immature Gran % (Auto) 0.400, Neut % (Auto) 71.0 H, Lymph % (Auto) 12.1 L, [place] % (Auto) 14.5 H, Eos % (Auto) 1.9, Baso % (Auto) 0.1, Absolute Neuts (auto) 6.0, Absolute Lymphs (auto) 1.03, Nucleated RBC % 0, Sodium 140, Potassium 3.8, Chloride 94 L, Carbon Dioxide 24.3, Anion Gap 22 H, BUN 98 H, Creatinine 10.70 H*, Estim Creat Clear Calc 6.65 L*, Est GFR (MDRD) Non-Af 5 L, BUN/Creatinine Ratio 9.2 L, Glucose 62 L, Calcium 8.0, Magnesium 1.7, Total Bilirubin 0.24, AST 22, ALT 20, Alkaline Phosphatase 53, Total Protein 4.7 L, Albumin 2.8 L, Globulin 1.9 L, Albumin/Globulin Ratio 1.5 06/07/25 06:46: POC Glucose 97 Micro: Microbiology 06/05/25 12:10 Urine Catheter - Carmichael Urine Culture - Final Culture exhibits no growth. Rhythm Strip Rhythm Strip: Sinus Rhythm Rate: 85 Ectopy: None Physical Exam Narrative Alert awake oriented x 3 no obvious distress no pallor no icterus no JVD s1s2 no murmurs lungs clear abdomen soft no organomegaly no edema no cyanosis carmichael + Assessment & Plan Assessment/Plan (1) Acute renal failure: (2) Hyperkalemia, diminished renal excretion: (3) Acute metabolic acidosis: (4) Essential hypertension: (5) Type 2 diabetes mellitus: QUALIFIERS: Diabetes mellitus halfway insulin use: without emt intermediate use Diabetes mellitus complication status: with circulatory complication Diabetes mellitus complication detail: with other circulatory complications Qualified Code(s): E11.59 - Type 2 diabetes mellitus with other circulatory complications PLAN: Plan Assessment/Plan: The patient is a 74-year-old male with past history of CKD stage G3b, type 2 diabetes mellitus, hypertension, CAD status post PCI, PAD, stroke, hypothyroidism, BPH, iron deficiency anemia, and hyperlipidemia. Patient presented to hospital with 2-day history of intractable nausea/vomiting, anorexia and generalized weakness. Patient was found to have acute kidney injury on chronic kidney disease associated with hyperkalemia and severe metabolic acidosis. Nephrology is asked to the patient because of JINA, metabolic acidosis and hyperkalemia. Acute kidney injury on chronic kidney disease stage G3b. Baseline creatinine about 1.4-1.6 as of March 2025. Presented with 2 days of nausea. Found to have renal failure, worsening. Creatinine is up to 10. Initial urine analysis with protein Renal ultrasound without any hydronephrosis Was not particularly hypotensive. Denies any fixj-ehj-[id number] supplements. He started taking a probiotic due to diarrhea over the last 6 weeks or so. Unexplained renal failure. Did not improve with fluids. Will need renal replacement therapy. Discussed with Dr. Vo Dialysis catheter to be placed. Will start dialysis after. With respect to etiology, serologies have been sent. Most likely will need kidney biopsy. Reviewed medication list, he is on Effient. Apparently he had LAD stent about 24 years ago. This was in [place]. 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 Garrison here. Has not had any strokes recently. Will check with cardiology to see if it is safe to hold Effient for the kidney biopsy. Discussed with at bedside
--- NOTE | 2025-06-07 12:05 | RAD_ITS ---
PROCEDURE: CXR FOR LINE PLACEMENT 06/07/2025 REASON FOR EXAM: TEMPORARY HD CATH INSERTION TECHNIQUE: Procedure Code: RADCXRLP Modality: DX Procedure: CXR FOR LINE PLACEMENT COMPARISON: Prior study dated June 05, 2025. FINDINGS: A right-sided central venous catheter has been placed with the tip in the midportion of the superior vena cava. EKG electrodes are seen. Mild degree of increased markings at the lung bases suggestive of linear atelectasis. Mild vascular congestion. RAD/CXR for Line Placement IMPRESSION: The tip of the right-sided central catheter is in the midportion of the superio r vena cava. Findings suggestive of mild degree of vascular congestion. Reading Location: [facility]
--- NOTE | 2025-06-07 12:25 | PCM.OP.PRO2 ---
Procedures Hospitalists Procedures: 22816 Insert Non-tunnel CV Cath Non-invasive Procedural Procedure Information Date of Procedure: 06/07/25 Description of procedure: Temporary Hemodialysis Catheter Indication: Dialysis Consent was obtained from: Patient A time-out was completed verifying correct patient, procedure, site, positioning, and special equipment if applicable. The patient was placed in a dependent position appropriate for hemodialysis line placement based on the vein to be cannulated. The patient's right neck was prepped and draped in the sterile fashion. 1% Lidocaine was used and emphasized the surrounding skin area. A 16 cm catheter was introduced into the right internal jugular vein, following sequential dilations, using the Seldinger technique and under ultrasound guidance. The catheter was threaded smoothly over the guidewire and appropriate blood return was obtained. Each lumen of the catheter was evacuated of air and flushed with sterile saline. The catheter was then sutured in place to the skin and a sterile dressing applied. Chest x-ray to confirm appropriate positioning is pending. ULTRASOUND GUIDANCE STATEMENT (Vascular Access): I performed an ultrasound image acquisition and interpretation for needle placement during the procedure. The vessel was identified and was found to be free of thrombosis by compression technique. A safe point of entry was marked at the skin in an angle for axis was determined. The needle was guided by obtaining free-flowing fluid and by real-time visualization.
[2025-06-07] MEDS: Lidocaine 2% (20 ml mdv) 20 ML Vial INFILT (12:29)
[2025-06-07] MEDS: 0.9% Normal Saline 1,000 ML IV.SOLN. 1000 ML OPERA.SITE (12:41)
[2025-06-07] MEDS: PureFlow B 2K Dialysis Soln 1 BAG 6 BAG PF (12:41)
[2025-06-08] VITALS (20 sets, daily range): BP systolic 125–163; BP diastolic 54–71; PULSE 81–88; RESP 12–16; TEMP 36.7–36.9; O2SAT 92–95; BMI 25.1; BMI 24.5
[2025-06-08 05:49] LABS: Hematocrit 27.5 % (40-54); Hemoglobin 9.6 g/dL (13.0-16.5); Immature Granulocytes Count 0.020 X10^3/uL (0.0-0.0); Mean Corp Hgb Conc 34.9 g/dL (32-36); Mean Corpuscular Volume 91.7 fL (80-94); Mean Platelet Vol. 10.4 fl (6.2-12.0); NRBC Flagged by Analyzer 0 % (0-5); Platelet Count 220 K/mm3 (150-450); RBC Distribution Width CV 12.9 % (11.6-14.6); RBC Distribution Width SD 42.7 fl (35.1-43.9); Red Blood Count 3.00 M/mm3 (4.6-6.2); White Blood Count 5.8 K/mm3 (4.4-11.0)
[2025-06-08 06:05] LABS: Prothrombin Time (Protime)PT. 13.4 SECONDS (11.7-14.9)
[2025-06-08 06:23] LABS: Anion Gap 19 (5-15); BUN 82 mg/dL (4-19); BUN/Creat Ratio 9.2 RATIO (10-20); Calcium,Total 8.2 mg/dL (7.6-11.0); Carbon Dioxide 23.2 mmol/L (21.0-32.0); Chloride 98 mmol/L (98-108); Estimated Creatinine Clearance 8.02 ml/min (50-250); Glucose 93 mg/dL (70-99); Potassium 4.2 mmol/L (3.3-5.1)
--- NOTE | 2025-06-08 07:50 | PN.HOSP_ITS ---
Reason for Visit Chief Complaint: Intractable N/V Subjective Subjective No overnight issues. Patient states he is tired. He is agreeable to kidney biopsy. We did discuss that we are holding his Effient and interventional radiology would like us to hold it for 7 days and that pushes his biopsy until Saturday. We did discuss the general overall plan for dialysis and nephrology. Objective Data Objective Data Vital Signs: Vital Signs Temp Pulse Resp BP Pulse Ox O2 Del Method O2 Flow Rate 98.2 F 88 16 161/69 H 93 Room Air 2 06/08/25 06:23 06/08/25 06:23 06/08/25 06:23 06/08/25 06:23 06/08/25 06:23 06/08/25 06:23 06/07/25 05:00 Oxygen Flow Rate (L/min) 2 Oxygen Delivery Method Room Air Weight: 84.2 kg Body Mass Index (BMI) 25.1 Intake & Output: Intake and Output for Last 24 Hours 06/06/25 06/07/25 06/08/25 23:59 23:59 23:59 Intake Total 4277.5 / 4277.5 1710.00 / 1710.00 Output Total 220 / 220 1150 / 1150 300 / 300 Balance 4057.5 / 4057.5 560.00 / 560.00 -300 / -300 Lab / Micro Data 06/08/25 05:11 06/08/25 05:11 Labs: Laboratory Results - last 24 hr 06/07/25 11:12: POC Glucose 133 H 06/07/25 17:06: POC Glucose 94 06/07/25 22:24: POC Glucose 153 H 06/08/25 05:11: WBC 5.8, RBC 3.00 L, Hgb 9.6 L, Hct 27.5 L, MCV 91.7, MCH 32.0, MCHC 34.9, RDW Std Deviation 42.7, RDW Coeff of Rich 12.9, Plt Count 220, MPV 10.4, Immature Gran % (Auto) 0.300, Neut % (Auto) 66.7, Lymph % (Auto) 12.7 L, M melanie % (Auto) 15.0 H, Eos % (Auto) 5.0, Baso % (Auto) 0.3, Absolute Neuts (auto) 3.8, Absolute Lymphs (auto) 0.73 L, Nucleated RBC % 0, PT 13.4, INR 1.0, Sodium 140, Potassium 4.2, Chloride 98, Carbon Dioxide 23.2, Anion Gap 19 H, BUN 82 H, Creatinine 8.87 H*, Estim Creat Clear Calc 8.02 L*, Est GFR (MDRD) Non-Af 6 L, B UN/Creatinine Ratio 9.2 L, Glucose 93, Calcium 8.2 06/08/25 06:20: POC Glucose 95 Micro: Microbiology 06/05/25 12:10 Urine Catheter - Bolaños Urine Culture - Final Culture exhibits no growth. Radiography Diagnostic Testing: Radiology Impression Chest X-Ray 06/07/25 12:05 IMPRESSION: The tip of the right-sided central catheter is in the midportion of the superior vena cava. Findings suggestive of mild degree of vascular congestion. Reading Location: [place] [id number] Rhythm Strip Rhythm Strip: Sinus Rhythm Rate: 85 Ectopy: None Physical Exam Const alert, oriented x3, no apparent distress and average body habitus; Negative for healthy appearing Constitutional Narrative: Older, white male, lying in bed currently on dialysis, dialysis nurse at bedside,, at bedside, currently appears comfortable, does not appear toxic HEENT head/scalp atraumatic and moist oral mucous membranes Head and Scalp: normocephalic Neck Neck Narrative: Dialysis catheter in right neck with bandage in place Resp normal respiratory effort, no retractions, no use of accessory muscles and clear to auscultation bilaterally Auscultation: Negative for rales, rhonchi or wheezes Cardio regular rate, regular rhythm, S1 normal heart sound, S2 normal heart sound, no murmurs, no rub, no gallops and no clicks GI normal to inspection, nondistended, normoactive bowel sounds, soft to palpation and non-tender Narrative: Bolaños catheter in place with hematuria noted. Improved urine output Extremity Extremity Narrative: Edema is overall improved Neuro moves all extremities and no focal motor deficits Neuro Narrative: Generalized weakness noted Psych Psych Narrative: Less tearful today but still affect is flatter than likely normal but appropriate for the current situation Assessment & Plan Assessment/Plan (1) Hypoglycemia: (2) Acute metabolic acidosis: (3) Hyperkalemia, diminished renal excretion: (4) Acute renal failure: (5) Acute uremia: PLAN: Plan JINA on CKD stage IIIb - Baseline creatinine is between 1.4 and 1.6 as of March 2025 -Now on dialysis - Urine output seems to be improving some next-plan is for dialysis tomorrow then break with reevaluation for dialysis needs on Saturday -If he will need ongoing dialysis at that time will need to pursue a temporary dialysis catheter - Renal ultrasound is unremarkable -Renal biopsy for Saturday -Effient on hold okay per discussion with Dr. Garrison but will need help for 7 days prior to biopsy - Plan is for temporary dialysis catheter placement and initiation of hemodialysis - Will likely need renal biopsy - Hold Effient-->d/w Dr. Garrison - Continue Bolaños and monitor for renal recovery Acute hypoglycemia - Hypoglycemia has resolved with a.m. blood sugar at 93. - Continue Lantus 22 units down from 36 units - Continue SSI - Continue to follow with Accu-Cheks Anion gap metabolic acidosis -Resolving with dialysis - Anion gap is improved and bicarb is in the normal range however patient likely still acidotic Repeat dialysis today Acute on chronic anemia - Stable - No signs of acute drop at this time - Will continue to monitor - Baseline appears to be between 11 and 13 - Repeat CBC in a.m. CAD/carotid artery stenosis/essential hypertension/hyperlipidemia/history of TIA - No stents within the last 12 months - Effient on hold for renal biopsy --> discussed with cardiology - continue home aspirin - Continue home carvedilol - continue home amlodipine - Lisinopril on hold due to renal dysfunction - Continue isosorbide mononitrate - Follows with vascular and cardiology as an outpatient DM-2 - Hold metformin - Hold glimepiride -Continue insulin as ordered with reduced dose with improved blood sugars today - SSI GERD - Continue famotidine Seasonal allergies - Continue home loratadine 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 - Bolaños in place DVT prophylaxis - Continue subcu heparin CODE STATUS - Full code Charges/Coding Visit Charges Inpatient E&M: 41688 Subs Hosp L2
[2025-06-08] MEDS: PureFlow B 2K Dialysis Soln 1 BAG 6 BAG PF (08:11)
[2025-06-08] MEDS: 0.9% Normal Saline 1,000 ML IV.SOLN. 1000 ML OPERA.SITE (08:12)
[2025-06-08] MEDS: 0.9% Saline Lock 10 ML Syringe IV ×2 (08:12→21:48)
[2025-06-08] MEDS: Aspirin E.C. 81 MG Tablet PO (12:01)
[2025-06-08] MEDS: Insulin Glargine-YFGN 100 UNIT/ML Pen 22 UNIT SC (12:01)
--- NOTE | 2025-06-08 12:50 | PCM.PN.REN ---
Subjective Subjective seen on HD today Objective Data Objective Data Vital Signs: Vital Signs Temp Pulse Resp BP Pulse Ox O2 Del Method O2 Flow Rate 98.0 F 85 14 157/69 H 95 Room Air 2 06/08/25 11:30 06/08/25 11:30 06/08/25 11:30 06/08/25 11:30 06/08/25 11:30 06/08/25 11:30 06/07/25 05:00 Oxygen Flow Rate (L/min) 2 Oxygen Delivery Method Room Air Weight: 82 kg Body Mass Index (BMI) 24.5 Intake & Output: Intake and Output for Last 24 Hours 06/06/25 06/07/25 06/08/25 23:59 23:59 23:59 Intake Total 4277.5 / 4277.5 1710.00 / 1710.00 Output Total 220 / 220 1150 / 1150 2520 / 2520 Balance 4057.5 / 4057.5 560.00 / 560.00 -2520 / -2520 Lab / Micro Data 06/08/25 05:11 06/08/25 05:11 Labs: Laboratory Results - last 24 hr 06/07/25 17:06: POC Glucose 94 06/07/25 22:24: POC Glucose 153 H 06/08/25 05:11: WBC 5.8, RBC 3.00 L, Hgb 9.6 L, Hct 27.5 L, MCV 91.7, MCH 32.0, MCHC 34.9, RDW Std Deviation 42.7, RDW Coeff of Rich 12.9, Plt Count 220, MPV 10.4, Immature Gran % (Auto) 0.300, Neut % (Auto) 66.7, Lymph % (Auto) 12.7 L, [place] % (Auto) 15.0 H, Eos % (Auto) 5.0, Baso % (Auto) 0.3, Absolute Neuts (auto) 3.8, Absolute Lymphs (auto) 0.73 L, Nucleated RBC % 0, PT 13.4, INR 1.0, Sodium 140, Potassium 4.2, Chloride 98, Carbon Dioxide 23.2, Anion Gap 19 H, BUN 82 H, Creatinine 8.87 H*, Estim Creat Clear Calc 8.02 L*, Est GFR (MDRD) Non-Af 6 L, BUN/Creatinine Ratio 9.2 L, Glucose 93, Calcium 8.2 06/08/25 06:20: POC Glucose 95 06/08/25 11:23: POC Glucose 99 Micro: Microbiology 06/05/25 12:10 Urine Catheter - Carmichael Urine Culture - Final Culture exhibits no growth. Rhythm Strip Rhythm Strip: Sinus Rhythm Rate: 85 Ectopy: None Physical Exam Narrative Alert awake oriented x 3 no obvious distress no pallor no icterus no JVD s1s2 no murmurs lungs clear abdomen soft no organomegaly no edema no cyanosis carmichael + Assessment & Plan Assessment/Plan (1) Acute renal failure: (2) Hyperkalemia, diminished renal excretion: (3) Acute metabolic acidosis: (4) Essential hypertension: (5) Type 2 diabetes mellitus: QUALIFIERS: Diabetes mellitus [facility] insulin use: without adjunct faculty for medical terminology use Diabetes mellitus complication status: with circulatory complication Diabetes mellitus complication detail: with other circulatory complications Qualified Code(s): E11.59 - Type 2 diabetes mellitus with other circulatory complications PLAN: Plan Assessment/Plan: The patient is a 74-year-old male with past history of CKD stage G3b, type 2 diabetes mellitus, hypertension, CAD status post PCI, PAD, stroke, hypothyroidism, BPH, iron deficiency anemia, and hyperlipidemia. Patient presented to hospital with 2-day history of intractable nausea/vomiting, anorexia and generalized weakness. Patient was found to have acute kidney injury on chronic kidney disease associated with hyperkalemia and severe metabolic acidosis. Nephrology is asked to the patient because of JINA, metabolic acidosis and hyperkalemia. Acute kidney injury on chronic kidney disease stage G3b. Baseline creatinine about 1.4-1.6 as of March 2025. Presented with 2 days of nausea. Found to have renal failure, worsening. Creatinine is up to 10. Initial urine analysis with protein Renal ultrasound without any hydronephrosis Was not particularly hypotensive. Denies any [id number] supplements. He started taking a probiotic due to diarrhea over the last 6 weeks or so. started HD 06/07/25 HD today. see orders dw Dr Vo. Ray is on hold. called and spoke to IR. [place] hold is one week. wont be able to get biopsy till next week likely. will see renal function recovers in the mean time dw family at bedside
--- NOTE | 2025-06-08 14:09 | CASEMGMT ---
Social Work SW met w/pt and in the room, offered support. Pt's reports pt is feeling down. Pt having a difficult time as pt has not had many health issues in the past, is used to being fully independent. Pt does report is supportive, they have been for 52 years. They do not have children. SW let them know if the SW can help in any way, SW remains available, and SW can come back any time for support to pt and . MADIHA Dejesus
[2025-06-08 15:08] LABS: Anti-dsDNA Ab <1 IU/mL (0-9)
[2025-06-09] VITALS (21 sets, daily range): BP systolic 149–188; BP diastolic 62–78; PULSE 78–92; RESP 14–18; TEMP 36.6–37.6; O2SAT 92–98; BMI 25.2
[2025-06-09 05:52] LABS: Hematocrit 28.9 % (40-54); Hemoglobin 10.1 g/dL (13.0-16.5); Immature Granulocytes Count 0.010 X10^3/uL (0.0-0.0); Mean Corp Hgb Conc 34.9 g/dL (32-36); Mean Corpuscular Volume 92.6 fL (80-94); Mean Platelet Vol. 10.3 fl (6.2-12.0); NRBC Flagged by Analyzer 0 % (0-5); Platelet Count 227 K/mm3 (150-450); RBC Distribution Width CV 12.7 % (11.6-14.6); RBC Distribution Width SD 43.1 fl (35.1-43.9); Red Blood Count 3.12 M/mm3 (4.6-6.2); White Blood Count 4.7 K/mm3 (4.4-11.0)
[2025-06-09 06:22] LABS: Anion Gap 16 (5-15); BUN 79 mg/dL (4-19); BUN/Creat Ratio 9.9 RATIO (10-20); Calcium,Total 8.4 mg/dL (7.6-11.0); Carbon Dioxide 23.7 mmol/L (21.0-32.0); Chloride 99 mmol/L (98-108); Estimated Creatinine Clearance 8.94 ml/min (50-250); Glucose 199 mg/dL (70-99); Potassium 4.4 mmol/L (3.3-5.1)
--- NOTE | 2025-06-09 07:29 | PN.HOSP_ITS ---
Reason for Visit Chief Complaint: Intractable N/V Subjective Subjective No issues overnight. Dialysis catheter is somewhat temperamental. Urine output seems to be improving so I am questioning whether or not he has having some renal recovery. Nephrology agrees. Reevaluate tomorrow and if we feel that he will need to tunneled catheter will consult general surgery. Objective Data Objective Data Vital Signs: Vital Signs Temp Pulse Resp BP Pulse Ox O2 Del Method O2 Flow Rate 98.3 F 85 16 155/71 H 95 Room Air 2 06/09/25 03:53 06/09/25 03:53 06/09/25 03:53 06/09/25 03:53 06/09/25 03:53 06/09/25 03:53 06/07/25 05:00 Oxygen Flow Rate (L/min) 2 Oxygen Delivery Method Room Air Weight: 84.6 kg Body Mass Index (BMI) 25.2 Intake & Output: Intake and Output for Last 24 Hours 06/07/25 06/08/25 06/09/25 23:59 23:59 23:59 Intake Total 1710.00 / 1710.00 Output Total 1150 / 1150 3070 / 3070 1625 / 1625 Balance 560.00 / 560.00 -3070 / -3070 -1625 / -1625 Lab / Micro Data 06/09/25 05:19 06/09/25 05:19 Labs: Laboratory Results - last 24 hr 06/07/25 05:10: Double Strand DNA Ab <1 06/08/25 11:23: POC Glucose 99 06/08/25 16:25: POC Glucose 240 H 06/08/25 21:46: POC Glucose 266 H 06/09/25 05:19: WBC 4.7, RBC 3.12 L, Hgb 10.1 L, Hct 28.9 L, MCV 92.6, MCH 32.4 H, MCHC 34.9, RDW Std Deviation 43.1, RDW Coeff of Rich 12.7, Plt Count 227, MPV 10.3, Immature Gran % (Auto) 0.200, Neut % (Auto) 64.2, Lymph % (Auto) 13.4 L, M melanie % (Auto) 17.6 H, Eos % (Auto) 4.2, Baso % (Auto) 0.4, Absolute Neuts (auto) 3.0, Absolute Lymphs (auto) 0.63 L, Nucleated RBC % 0, Sodium 139, Potassium 4.4, Chloride 99, Carbon Dioxide 23.7, Anion Gap 16 H, BUN 79 H, Creatinine 7.96 H*, Estim Creat Clear Calc 8.94 L*, Est GFR (MDRD) Non-Af 7 L, BUN/Creatinine Ratio 9.9 L, Glucose 199 H, Calcium 8.4 06/09/25 06:18: POC Glucose 184 H Micro: Microbiology 06/05/25 12:10 Urine Catheter - Bolaños Urine Culture - Final Culture exhibits no growth. Rhythm Strip Rhythm Strip: Sinus Rhythm Rate: 85 Ectopy: None Physical Exam Const alert, oriented x3, no apparent distress and average body habitus; Negative for healthy appearing Constitutional Narrative: Older, white male, lying in bed currently on dialysis, dialysis nurse at bedside, currently appears comfortable, does not appear toxic HEENT head/scalp atraumatic and moist oral mucous membranes HEENT Narrative: Mallampati 3, no thrush Head and Scalp: normocephalic Resp normal respiratory effort, no retractions, no use of accessory muscles and clear to auscultation bilaterally Auscultation: Negative for rales, rhonchi or wheezes Cardio regular rate, regular rhythm, S1 normal heart sound, S2 normal heart sound, no murmurs, no rub, no gallops and no clicks GI normal to inspection, nondistended, normoactive bowel sounds, soft to palpation and non-tender Narrative: Urine output seems to be improving significantly and urine is clear without any signs of hematuria Extremity no clubbing, cyanosis or edema Extremity Narrative: Edema has resolved, pedal and radial pulses are 2+ Neuro moves all extremities and no focal motor deficits Neuro Narrative: Generalized weakness noted Psych affect normal Psych Narrative: Not tearful today, patient seems to be accepting this much more readily, was actually jovial today and joking intermittently. Very pleasant Assessment & Plan Assessment/Plan (1) Hypoglycemia: (2) Acute metabolic acidosis: (3) Hyperkalemia, diminished renal excretion: (4) Acute renal failure: (5) Acute uremia: PLAN: Plan JINA on CKD stage IIIb - Baseline creatinine is between 1.4 and 1.6 as of March 2025 - Today's day 3 of dialysis--> no dialysis tomorrow and will reassess - Plan is to assess for tunneled catheter need tomorrow - Renal ultrasound is unremarkable -Renal biopsy for Saturday if renal function is not recovering -Effient on hold okay per discussion with Dr. Garrison but will need help for 7 days prior to biopsy - Will likely need renal biopsy - Hold Effient-->d/w Dr. Garrison - Continue Bolaños and monitor for renal recovery - Serologies thus far unremarkable - Nephrology following-appreciate input Acute hypoglycemia - Hypoglycemia has resolved with a.m. blood sugar at 199 - Will increase Lantus as blood sugars are starting to recover about that back on dialysis - Continue SSI - Continue to follow with Accu-Cheks Anion gap metabolic acidosis -Resolving with dialysis--> gap is only 16 - Anion gap is improved and bicarb is in the normal range however patient likely still acidotic - Repeat dialysis today Acute on chronic anemia - Stable - No signs of acute drop at this time - Will continue to monitor - Baseline appears to be between 11 and 13 - Repeat CBC in a.m. 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
[2025-06-09] MEDS: PureFlow B 2K Dialysis Soln 1 BAG 6 BAG PF (08:05)
--- NOTE | 2025-06-09 10:55 | PCM.PN.REN ---
Subjective Subjective Urine output is good. Objective Data Objective Data Vital Signs: Vital Signs Temp Pulse Resp BP Pulse Ox O2 Del Method O2 Flow Rate 98.4 F 80 14 181/70 H 95 Room Air 2 06/09/25 08:15 06/09/25 10:15 06/09/25 10:15 06/09/25 10:15 06/09/25 10:15 06/09/25 10:15 06/07/25 05:00 Oxygen Flow Rate (L/min) 2 Oxygen Delivery Method Room Air Weight: 84.6 kg Body Mass Index (BMI) 25.2 Intake & Output: Intake and Output for Last 24 Hours 06/07/25 06/08/25 06/09/25 23:59 23:59 23:59 Intake Total 1710.00 / 1710.00 Output Total 1150 / 1150 3070 / 3070 1625 / 1625 Balance 560.00 / 560.00 -3070 / -3070 -1625 / -1625 Lab / Micro Data 06/09/25 05:19 06/09/25 05:19 Labs: Laboratory Results - last 24 hr 06/07/25 05:10: Double Strand DNA Ab <1 06/08/25 11:23: POC Glucose 99 06/08/25 16:25: POC Glucose 240 H 06/08/25 21:46: POC Glucose 266 H 06/09/25 05:19: WBC 4.7, RBC 3.12 L, Hgb 10.1 L, Hct 28.9 L, MCV 92.6, MCH 32.4 H, MCHC 34.9, RDW Std Deviation 43.1, RDW Coeff of Rich 12.7, Plt Count 227, MPV 10.3, Immature Gran % (Auto) 0.200, Neut % (Auto) 64.2, Lymph % (Auto) 13.4 L, [place] % (Auto) 17.6 H, Eos % (Auto) 4.2, Baso % (Auto) 0.4, Absolute Neuts (auto) 3.0, Absolute Lymphs (auto) 0.63 L, Nucleated RBC % 0, Sodium 139, Potassium 4.4, Chloride 99, Carbon Dioxide 23.7, Anion Gap 16 H, BUN 79 H, Creatinine 7.96 H*, Estim Creat Clear Calc 8.94 L*, Est GFR (MDRD) Non-Af 7 L, BUN/Creatinine Ratio 9.9 L, Glucose 199 H, Calcium 8.4 06/09/25 06:18: POC Glucose 184 H Micro: Microbiology 06/05/25 12:10 Urine Catheter - Carmichael Urine Culture - Final Culture exhibits no growth. Rhythm Strip Rhythm Strip: Sinus Rhythm Rate: 85 Ectopy: None Physical Exam Narrative Alert awake oriented x 3 no obvious distress no pallor no icterus no JVD s1s2 no murmurs lungs clear abdomen soft no organomegaly no edema no cyanosis carmichael + Assessment & Plan Assessment/Plan (1) Acute renal failure: (2) Hyperkalemia, diminished renal excretion: (3) Acute metabolic acidosis: (4) Essential hypertension: (5) Type 2 diabetes mellitus: QUALIFIERS: Diabetes mellitus [facility] insulin use: without terminal superintendent use Diabetes mellitus complication status: with circulatory complication Diabetes mellitus complication detail: with other circulatory complications Qualified Code(s): E11.59 - Type 2 diabetes mellitus with other circulatory complications PLAN: Plan Assessment/Plan: The patient is a 74-year-old male with past history of CKD stage G3b, type 2 diabetes mellitus, hypertension, CAD status post PCI, PAD, stroke, hypothyroidism, BPH, iron deficiency anemia, and hyperlipidemia. Patient presented to hospital with 2-day history of intractable nausea/vomiting, anorexia and generalized weakness. Patient was found to have acute kidney injury on chronic kidney disease associated with hyperkalemia and severe metabolic acidosis. Nephrology is asked to the patient because of JINA, metabolic acidosis and hyperkalemia. Acute kidney injury on chronic kidney disease stage G3b. Baseline creatinine about 1.4-1.6 as of March 2025. Presented with 2 days of nausea. Found to have renal failure, worsening. Creatinine is up to 10. Initial urine analysis with protein Renal ultrasound without any hydronephrosis Was not particularly hypotensive. Denies any [id number] supplements. He started taking a probiotic due to diarrhea over the last 6 weeks or so. started HD 06/07/25 HD today. see orders Urine output has picked up. Will hold dialysis after today and monitor labs. If renal function gets better, he will not need any further intervention. If renal function does not improve, he will need kidney biopsy. Tentatively tunneled dialysis catheter also. Discussed with family at bedside. Renal diet for now.
[2025-06-09] MEDS: 0.9% Normal Saline 1,000 ML IV.SOLN. 1000 ML OPERA.SITE (12:08)
[2025-06-09] MEDS: 0.9% Saline Lock 10 ML Syringe IV ×2 (12:12→22:11)
[2025-06-09] MEDS: Insulin Glargine-YFGN 100 UNIT/ML Pen 30 UNIT SC (12:28)
[2025-06-09] MEDS: Aspirin E.C. 81 MG Tablet PO (12:28)
[2025-06-09 17:08] LABS: Albumin 2.3 g/dL (2.9-4.4); Cytoplasmic Ab (C-ANCA) <1:20 titer (Neg:<1:20); Gamma Globulin 0.3 g/dL (0.4-1.8); Immunoglobulin A 196 mg/dL (61-437); Immunoglobulin G 303 mg/dL (603-1613); Immunoglobulin M 21 mg/dL (15-143); PROEL- TOTAL PROTEIN 4.4 g/dL (6.0-8.5); Perinuclear Ab (P-ANCA) <1:20 titer (Neg:<1:20)
[2025-06-10 03:00] VITALS: PULSE 84
[2025-06-10 05:00] VITALS: BMI 25.2
[2025-06-10 05:17] VITALS: BP 161/73; PULSE 82; RESP 16; TEMP 36.8; O2SAT 94
[2025-06-10 06:05] LABS: Anion Gap 16 (5-15); BUN 72 mg/dL (4-19); BUN/Creat Ratio 10.6 RATIO (10-20); Calcium,Total 8.5 mg/dL (7.6-11.0); Carbon Dioxide 21.5 mmol/L (21.0-32.0); Chloride 103 mmol/L (98-108); Estimated Creatinine Clearance 10.48 ml/min (50-250); Glucose 258 mg/dL (70-99); Potassium 4.1 mmol/L (3.3-5.1)
--- NOTE | 2025-06-10 07:38 | PN.HOSP_ITS ---
Reason for Visit Chief Complaint: Intractable N/V Subjective Subjective No issues overnight. Patient is feeling well today. It does appear that he is having signs of renal recovery with improved urine output. Objective Data Objective Data Vital Signs: Vital Signs Temp Pulse Resp BP Pulse Ox O2 Del Method O2 Flow Rate 98.2 F 82 16 161/73 H 94 Room Air 2 06/10/25 05:17 06/10/25 05:17 06/10/25 05:17 06/10/25 05:17 06/10/25 05:17 06/10/25 05:17 06/07/25 05:00 Oxygen Flow Rate (L/min) 2 Oxygen Delivery Method Room Air Weight: 84.5 kg Body Mass Index (BMI) 25.2 Intake & Output: Intake and Output for Last 24 Hours 06/08/25 06/09/25 06/10/25 23:59 23:59 23:59 Intake Total 480 / 480 Output Total 3070 / 3070 3725 / 3725 1850 / 1850 Balance -3070 / -3070 -3245 / -3245 -1850 / -1850 Lab / Micro Data 06/09/25 05:19 06/10/25 05:13 Labs: Laboratory Results - last 24 hr 06/07/25 05:10: Total Protein (PEP) 4.4 L, Globulin 2.1 L, IgG 303 L, IgA 196, IgM 21, Immunofixation Screen Comment, Albumin (NATHAN) 2.3 L, Albumin/Globulin (NATHAN) 1.1, Xkmnj-9-Jmrcttmhn NATHAN 0.2, Esqnx-8-Jbakpehqs NATHAN 0.9, Beta-Globulins (NATHAN) 0.7, Gamma Globulins (NATHAN) 0.3 L, NATHAN M-Guillermo Not Observed, NATHAN Comments Comment, c-ANCA Antibody <1:20, Atypical p-ANCA <1:20, p-ANCA Antibody <1:20, Glomerular Base Memb Ab < 0.2, Complement C3 130 06/09/25 12:22: POC Glucose 128 H 06/09/25 16:19: POC Glucose 265 H 06/09/25 22:17: POC Glucose 334 H 06/10/25 05:13: Sodium 141, Potassium 4.1, Chloride 103, Carbon Dioxide 21.5, A nion Gap 16 H, BUN 72 H, Creatinine 6.79 H, Estim Creat Clear Calc 10.48 L, Est GFR (MDRD) Non-Af 8 L, BUN/Creatinine Ratio 10.6, Glucose 258 H, Calcium 8.5 06/10/25 06:36: POC Glucose 230 H Micro: Microbiology 06/05/25 12:10 Urine Catheter - Bolaños Urine Culture - Final Culture exhibits no growth. Rhythm Strip Rhythm Strip: Sinus Rhythm Rate: 85 Ectopy: None Physical Exam Const alert, oriented x3, no apparent distress, average body habitus and well nourished; Negative for healthy appearing Constitutional Narrative: Older, white male, sitting up in bed, watching television, currently appears comfortable, does not appear toxic HEENT head/scalp atraumatic and moist oral mucous membranes Head and Scalp: normocephalic Neck Neck Narrative: Dialysis catheter in right neck with bandage in place Resp normal respiratory effort, no retractions, no use of accessory muscles and clear to auscultation bilaterally Auscultation: Negative for rales, rhonchi or wheezes Cardio regular rate, regular rhythm, S1 normal heart sound, S2 normal heart sound, no murmurs, no rub, no gallops and no clicks GI normal to inspection, nondistended, normoactive bowel sounds, soft to palpation and non-tender Narrative: Significantly improved urine output and seems to post ATN diuresis appearing type urine Extremity no clubbing, cyanosis or edema Extremity Narrative: 2+ pedal and radial pulses Neuro moves all extremities and no focal motor deficits Neuro Narrative: Generalized weakness noted Psych affect normal Psych Narrative: Very pleasant, seems much happier today Assessment & Plan Assessment/Plan (1) Hypoglycemia: (2) Acute metabolic acidosis: (3) Hyperkalemia, diminished renal excretion: (4) Acute renal failure: (5) Acute uremia: PLAN: Plan JINA on CKD stage IIIb - Baseline creatinine is between 1.4 and 1.6 as of March 2025 - No dialysis for today - Urine output seems to be improving -Renal biopsy for Saturday if renal function is not recovering -Effient on hold okay per discussion with Dr. Garrison but will need help for 7 days prior to biopsy - Continue Bolaños and monitor for renal recovery - Serologies were unremarkable - Nephrology following-appreciate input - Will decide on ongoing needs in the next 24 hours Anion gap metabolic acidosis - Much improved and is improving with improved renal function Acute on chronic anemia - Stable - No signs of acute drop at this time - Will continue to monitor - Baseline appears to be between 11 and 13 - Repeat CBC in a.m. CAD/carotid artery stenosis/essential hypertension/hyperlipidemia/history of TIA - No stents within the last 12 months - Effient on hold for renal biopsy --> discussed with cardiology - continue home aspirin - Continue home carvedilol - continue home amlodipine - Lisinopril on hold due to renal dysfunction - Continue isosorbide mononitrate - Follows with vascular and cardiology as an outpatient - BP is overall improved DM-2 - Hold metformin - Hold glimepiride - Blood sugars now trending up again with ongoing dialysis - Will increase back to home dose of basal insulin and uptitrate his sliding scale to high dose with fasting blood sugars greater than 200 this morning - SSI GERD - Continue famotidine Seasonal allergies - Continue home loratadine 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 - Bolaños in place DVT prophylaxis - Continue subcu heparin CODE STATUS - Full code Charges/Coding Visit Charges Inpatient E&M: 81457 Subs Hosp L2
[2025-06-10 10:28] VITALS: BP 129/62; PULSE 85; RESP 16; TEMP 36.6; O2SAT 94
[2025-06-10] MEDS: Aspirin E.C. 81 MG Tablet PO (10:30)
[2025-06-10] MEDS: Insulin Glargine-YFGN 100 UNIT/ML Pen 36 UNIT SC (10:32)
[2025-06-10 16:00] VITALS: BP 130/62; PULSE 77; RESP 16; TEMP 36.9; O2SAT 95
--- NOTE | 2025-06-10 16:42 | PN.RENAL_ITS ---
Subjective Subjective no new complaints Objective Data Objective Data Vital Signs: Vital Signs Temp Pulse Resp BP Pulse Ox O2 Del Method O2 Flow Rate 97.8 F 85 16 129/62 H 94 Room Air 2 06/10/25 10:06/10/25 10:06/10/25 10:06/10/25 10:06/10/25 10:06/10/25 10:06/07/25 05:00 Oxygen Flow Rate (L/min) 2 Oxygen Delivery Method Room Air Weight: 84.5 kg Body Mass Index (BMI) 25.2 Intake & Output: Intake and Output for Last 24 Hours 06/08/25 06/09/25 06/10/25 23:59 23:59 23:59 Intake Total 480 / 480 Output Total 3070 / 3070 3725 / 3725 1850 / 1850 Balance -3070 / -3070 -3245 / -3245 -1850 / -1850 Lab / Micro Data 06/09/25 05:19 06/10/25 05:13 Labs: Laboratory Results - last 24 hr 06/07/25 05:10: Total Protein (PEP) 4.4 L, Globulin 2.1 L, IgG 303 L, IgA 196, IgM 21, Immunofixation Screen Comment, Albumin (NATHAN) 2.3 L, Albumin/Globulin (NATHAN) 1.1, Wqezi-5-Ahcnfhyyn NATHAN 0.2, Fiqat-0-Qdeohzgay NATHAN 0.9, Beta-Globulins (NATHAN) 0.7, Gamma Globulins (NATHAN) 0.3 L, NATHAN M-Guillermo Not Observed, NATHAN Comments Comment, c-ANCA Antibody <1:20, Atypical p-ANCA <1:20, p-ANCA Antibody <1:20, Glomerular Base Memb Ab < 0.2, Complement C3 130 06/09/25 16:19: POC Glucose 265 H 06/09/25 22:17: POC Glucose 334 H 06/10/25 05:13: Sodium 141, Potassium 4.1, Chloride 103, Carbon Dioxide 21.5, A nion Gap 16 H, BUN 72 H, Creatinine 6.79 H, Estim Creat Clear Calc 10.48 L, Est GFR (MDRD) Non-Af 8 L, BUN/Creatinine Ratio 10.6, Glucose 258 H, Calcium 8.5 06/10/25 06:36: POC Glucose 230 H 06/10/25 11:23: POC Glucose 272 H Micro: Microbiology 06/05/25 12:10 Urine Catheter - Carmichael Urine Culture - Final Culture exhibits no growth. Rhythm Strip Rhythm Strip: Sinus Rhythm Rate: 85 Ectopy: None Physical Exam Narrative Alert awake oriented x 3 no obvious distress no pallor no icterus no JVD s1s2 no murmurs lungs clear abdomen soft no organomegaly no edema no cyanosis carmichael + Assessment & Plan Assessment/Plan (1) Acute renal failure: (2) Hyperkalemia, diminished renal excretion: (3) Acute metabolic acidosis: (4) Essential hypertension: (5) Type 2 diabetes mellitus: QUALIFIERS: Diabetes mellitus senior living insulin use: without termite control servicer use Diabetes mellitus complication status: with circulatory complication Diabetes mellitus complication detail: with other circulatory complications Q ualified Code(s): E11.59 - Type 2 diabetes mellitus with other circulatory complications PLAN: Plan Assessment/Plan: The patient is a 74-year-old male with past history of CKD stage G3b, type 2 diabetes mellitus, hypertension, CAD status post PCI, PAD, stroke, hypothyroidism, BPH, iron deficiency anemia, and hyperlipidemia. Patient presented to hospital with 2-day history of intractable nausea/vomiting, anorexia and generalized weakness. Patient was found to have acute kidney injury on chronic kidney disease associated with hyperkalemia and severe metabolic acidosis. Nephrology is asked to the patient because of JINA, metabolic acidosis and hyperkalemia. Acute kidney injury on chronic kidney disease stage G3b. Baseline creatinine about 1.4-1.6 as of March 2025. Presented with 2 days of nausea. Found to have renal failure, worsening. Creatinine is up to 10. Initial urine analysis with protein Renal ultrasound without any hydronephrosis Was not particularly hypotensive. Denies any [id number] supplements. He started taking a probiotic due to diarrhea over the last 6 weeks or so. started HD 06/07/25 HD today. see orders Urine output has picked up. Will hold dialysis after today and monitor labs. If renal function gets better, he will not need any further intervention. If renal function does not improve, he will need kidney biopsy. Tentatively tunneled dialysis catheter also. Discussed with family at bedside. Renal diet for now. 06/10/25. urine output is very good. 1.8 L. cr ok. lytes are ok. serologies are negative. possible its all ATN. repeat labs in am. further decision on HD depending on labs tomorrow. dw family bedside
[2025-06-10 19:00] VITALS: PULSE 80
[2025-06-10 20:48] VITALS: BP 156/69; PULSE 81; RESP 18; TEMP 2.7; TEMP 36.8; O2SAT 96
[2025-06-11] VITALS (14 sets, daily range): BP systolic 129–173; BP diastolic 54–78; PULSE 78–87; RESP 14–18; TEMP 36.3–36.8; O2SAT 94–98; BMI 24.2
[2025-06-11 05:08] LABS: Hematocrit 25.4 % (40-54); Hemoglobin 8.9 g/dL (13.0-16.5); Immature Granulocytes Count 0.010 X10^3/uL (0.0-0.0); Mean Corp Hgb Conc 35.0 g/dL (32-36); Mean Corpuscular Volume 91.0 fL (80-94); Mean Platelet Vol. 10.0 fl (6.2-12.0); NRBC Flagged by Analyzer 0 % (0-5); Platelet Count 252 K/mm3 (150-450); RBC Distribution Width CV 12.7 % (11.6-14.6); RBC Distribution Width SD 41.8 fl (35.1-43.9); Red Blood Count 2.79 M/mm3 (4.6-6.2); White Blood Count 6.0 K/mm3 (4.4-11.0)
[2025-06-11 06:17] LABS: Anion Gap 17 (5-15); BUN 90 mg/dL (4-19); BUN/Creat Ratio 11.7 RATIO (10-20); Calcium,Total 8.3 mg/dL (7.6-11.0); Carbon Dioxide 21.5 mmol/L (21.0-32.0); Chloride 104 mmol/L (98-108); Estimated Creatinine Clearance 9.24 ml/min (50-250); Glucose 160 mg/dL (70-99); Potassium 3.8 mmol/L (3.3-5.1)
[2025-06-11] MEDS: Insulin Glargine-YFGN 100 UNIT/ML Pen 36 UNIT SC (09:01)
[2025-06-11] MEDS: 0.9% Saline Lock 10 ML Syringe IV ×2 (09:02→09:28)
--- NOTE | 2025-06-11 09:15 | PN.HOSP_ITS ---
Reason for Visit Chief Complaint: Intractable N/V Objective Data Objective Data Vital Signs: Vital Signs Temp Pulse Resp BP Pulse Ox O2 Del Method O2 Flow Rate 36.8 F L 81 18 156/69 H 96 Room Air 2 06/10/25 20:48 06/10/25 20:48 06/10/25 20:48 06/10/25 20:48 06/10/25 20:48 06/11/25 07:48 06/07/25 05:00 Oxygen Flow Rate (L/min) 2 Oxygen Delivery Method Room Air Weight: 178 lb 9.191 oz Body Mass Index (BMI) 24.2 Intake & Output: Intake and Output for Last 24 Hours 06/09/25 06/10/25 06/11/25 23:59 23:59 23:59 Intake Total 480 / 480 Output Total 3725 / 3725 5500 / 5500 500 / 500 Balance -3245 / -3245 -5500 / -5500 -500 / -500 Lab / Micro Data 06/11/25 04:43 06/11/25 04:43 Labs: Laboratory Results - last 24 hr 06/10/25 11:23: POC Glucose 272 H 06/10/25 16:41: POC Glucose 332 H 06/10/25 20:55: POC Glucose 199 H 06/11/25 04:43: WBC 6.0, RBC 2.79 L, Hgb 8.9 L, Hct 25.4 L, MCV 91.0, MCH 31.9, MCHC 35.0, RDW Std Deviation 41.8, RDW Coeff of Rich 12.7, Plt Count 252, MPV 10.0, Immature Gran % (Auto) 0.200, Neut % (Auto) 59.8, Lymph % (Auto) 17.4 L, M melanie % (Auto) 15.4 H, Eos % (Auto) 6.9 H, Baso % (Auto) 0.3, Absolute Neuts (auto) 3.6, Absolute Lymphs (auto) 1.04, Nucleated RBC % 0, Sodium 143, Potassium 3.8, Chloride 104, Carbon Dioxide 21.5, Anion Gap 17 H, BUN 90 H, C reatinine 7.70 H*, Estim Creat Clear Calc 9.24 L*, Est GFR (MDRD) Non-Af 7 L, BUN/Creatinine Ratio 11.7, Glucose 160 H, Calcium 8.3 06/11/25 07:44: POC Glucose 167 H Micro: Microbiology 06/05/25 12:10 Urine Catheter - Bolaños Urine Culture - Final Culture exhibits no growth. Rhythm Strip Rhythm Strip: Sinus Rhythm Rate: 85 Ectopy: None Physical Exam Narrative Seen and examined Talked to the . Patient has history of CAD status post stent and a stroke in the past. Had NC/cardiac stent in 2000. Has a stroke with residual aphasia/mild language difficulties in understanding and writing. Wants to go home. Had hematuria on first day of admission. Physical exam General: Alert, Oriented x3, Cooperative HEENT: Atraumatic, PERRLA, EOMI, Normocephalic. Oral: No Gingival or Mucosal Lesions/ Ulcerations Neck: Supple, No JVD, Negative Carotid Bruits Chest wall/Lungs: Air entry diminished in bilateral lung bases. No crepitation/rhonchi Cardiovascular: Regular rate and rhythm, Normal S1,S2, No M/G/R Abdomen: Bowel Sounds Present, Soft, Non Tender, Non-Distended : Bolaños catheter. Clear urine. No dysuria. No renal angle tenderness. No suprapubic tenderness. Extremities: No edema, Capillary Refill Less than 3 Seconds Skin: No rashes, No breakdown Musculoskeletal: No Tenderness to Palpation of Joints or Extremities Neurological: Cranial nerves II-XII grossly intact, DTR 2+/4. No acute focal neurological deficit. Psych/Mental Status: Mild frustrated Assessment & Plan Assessment/Plan (1) Hypoglycemia: (2) Acute metabolic acidosis: (3) Hyperkalemia, diminished renal excretion: (4) Acute renal failure: (5) Acute uremia: PLAN: Plan 74-year-old gentleman was admitted with intractable nausea and vomiting and found to have JINA with hyperkalemia, admitted on the monitored bed. Required further transfer to ICU for acute hyperkalemia and that downgraded to PCU JINA on CKD stage IIIb - Baseline creatinine is between 1.4 and 1.6 as of March 2025 - Urine output seems to be improving -Renal biopsy for Saturday if renal function is not recovering -Effient on hold okay per discussion with Dr. Garrison but will need help for 7 days prior to biopsy - Continue Bolaoñs and monitor for renal recovery - Serologies were unremarkable - Nephrology following-appreciate input - Will decide on ongoing needs in the next 24 hours 06/11: On admission patient creatinine was 8.74, creatinine 10.7 and then fluctuates, today 7.70. BUN fluctuates between 70-90. Perfume Compounder report reviewed. Patient urine output is good. Hemodialysis today. Serologies are negative. Plan for kidney biopsy on Saturday. Likely tentative discharge on Saturday. Anion gap metabolic acidosis - Much improved and is improving with improved renal function Acute on chronic anemia - Stable - No signs of acute drop at this time - Will continue to monitor - Baseline appears to be between 11 and 13 - 06/11 hemoglobin 8.9 decreased from 12.0. His baseline hemoglobin is about 12 in November 2024. Not on any scheduled anticoagulant. Only on baby aspirin. CAD/carotid artery stenosis/essential hypertension/hyperlipidemia/history of TIA - No stents within the last 12 months - Effient on hold for renal biopsy --> discussed with cardiology - continue home aspirin - Continue home carvedilol - continue home amlodipine - Lisinopril on hold due to renal dysfunction - Continue isosorbide mononitrate - Follows with vascular and cardiology as an outpatient - BP is overall improved DM-2 - Hold metformin - Hold glimepiride - Blood sugars now trending up again with ongoing dialysis - Will increase back to home dose of basal insulin and uptitrate his sliding scale to high dose with fasting blood sugars greater than 200 this morning - SSI GERD - Continue famotidine Seasonal allergies - Continue home loratadine 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 - Bolaños in place DVT prophylaxis - Continue subcu heparin CODE STATUS - Full code Charges/Coding Visit Charges Inpatient E&M: 89945 Subs Hosp L2
[2025-06-11] MEDS: PureFlow B 2K Dialysis Soln 1 BAG 6 BAG PF (09:27)
[2025-06-11] MEDS: 0.9% Normal Saline 1,000 ML IV.SOLN. 1000 ML OPERA.SITE (09:27)
[2025-06-11] MEDS: Aspirin E.C. 81 MG Tablet PO (14:02)
--- NOTE | 2025-06-11 14:22 | PN.RENAL_ITS ---
Subjective Subjective good urine output. cr higher. HD today Objective Data Objective Data Vital Signs: Vital Signs Temp Pulse Resp BP Pulse Ox O2 Del Method O2 Flow Rate 98.2 F 87 18 129/67 H 95 Room Air 2 06/11/25 13:55 06/11/25 13:55 06/11/25 13:55 06/11/25 13:55 06/11/25 13:55 06/11/25 13:55 06/07/25 05:00 Oxygen Flow Rate (L/min) 2 Oxygen Delivery Method Room Air Weight: 81 kg Body Mass Index (BMI) 24.2 Intake & Output: Intake and Output for Last 24 Hours 06/09/25 06/10/25 06/11/25 23:59 23:59 23:59 Intake Total 480 / 480 360 / 360 Output Total 3725 / 3725 5500 / 5500 1400 / 1400 Balance -3245 / -3245 -5500 / -5500 -1040 / -1040 Lab / Micro Data 06/11/25 04:43 06/11/25 04:43 Labs: Laboratory Results - last 24 hr 06/10/25 16:41: POC Glucose 332 H 06/10/25 20:55: POC Glucose 199 H 06/11/25 04:43: WBC 6.0, RBC 2.79 L, Hgb 8.9 L, Hct 25.4 L, MCV 91.0, MCH 31.9, MCHC 35.0, RDW Std Deviation 41.8, RDW Coeff of Rich 12.7, Plt Count 252, MPV 10.0, Immature Gran % (Auto) 0.200, Neut % (Auto) 59.8, Lymph % (Auto) 17.4 L, M melanie % (Auto) 15.4 H, Eos % (Auto) 6.9 H, Baso % (Auto) 0.3, Absolute Neuts (auto) 3.6, Absolute Lymphs (auto) 1.04, Nucleated RBC % 0, Sodium 143, Potassium 3.8, Chloride 104, Carbon Dioxide 21.5, Anion Gap 17 H, BUN 90 H, C reatinine 7.70 H*, Estim Creat Clear Calc 9.24 L*, Est GFR (MDRD) Non-Af 7 L, BUN/Creatinine Ratio 11.7, Glucose 160 H, Calcium 8.3 06/11/25 07:44: POC Glucose 167 H Micro: Microbiology 06/05/25 12:10 Urine Catheter - Carmichael Urine Culture - Final Culture exhibits no growth. Rhythm Strip Rhythm Strip: Sinus Rhythm Rate: 85 Ectopy: None Physical Exam Narrative Alert awake oriented x 3 no obvious distress no pallor no icterus no JVD s1s2 no murmurs lungs clear abdomen soft no organomegaly no edema no cyanosis carmichael + Assessment & Plan Assessment/Plan (1) Acute renal failure: (2) Hyperkalemia, diminished renal excretion: (3) Acute metabolic acidosis: (4) Essential hypertension: (5) Type 2 diabetes mellitus: QUALIFIERS: Diabetes mellitus correction insulin use: without correction use Diabetes mellitus complication status: with circulatory complication Diabetes mellitus complication detail: with other circulatory complications Q ualified Code(s): E11.59 - Type 2 diabetes mellitus with other circulatory complications PLAN: Plan Assessment/Plan: The patient is a 74-year-old male with past history of CKD stage G3b, type 2 diabetes mellitus, hypertension, CAD status post PCI, PAD, stroke, hypothyroidism, BPH, iron deficiency anemia, and hyperlipidemia. Patient presented to hospital with 2-day history of intractable nausea/vomiting, anorexia and generalized weakness. Patient was found to have acute kidney injury on chronic kidney disease associated with hyperkalemia and severe metabolic acidosis. Nephrology is asked to the patient because of JINA, metabolic acidosis and hyperkalemia. Acute kidney injury on chronic kidney disease stage G3b. Baseline creatinine about 1.4-1.6 as of March 2025. Presented with 2 days of nausea. Found to have renal failure, worsening. Creatinine is up to 10. Initial urine analysis with protein Renal ultrasound without any hydronephrosis Was not particularly hypotensive. Denies any [id number] supplements. He started taking a probiotic due to diarrhea over the last 6 weeks or so. started HD 06/07/25 HD today. see orders Urine output has picked up. Will hold dialysis after today and monitor labs. If renal function gets better, he will not need any further intervention. If renal function does not improve, he will need kidney biopsy. Tentatively tunneled dialysis catheter also. Discussed with family at bedside. Renal diet for now. 06/10/25. urine output is very good. 1.8 L. cr ok. lytes are ok. serologies are negative. possible its all ATN. repeat labs in am. further decision on HD depending on labs tomorrow. [facility] family bedside 06/11/25. Cr higher. kind of surprising since his urine output is pretty good. HD today. serologies are all negative. will plan for biopsy on saturday. likely TDC on saturday. will [facility] hospitalist
[2025-06-12 03:34] VITALS: BP 143/57; PULSE 83; RESP 18; TEMP 36.4; O2SAT 93
[2025-06-12 04:44] VITALS: BMI 24.3
[2025-06-12 07:21] LABS: Hematocrit 24.9 % (40-54); Hemoglobin 8.4 g/dL (13.0-16.5); Immature Granulocytes Count 0.030 X10^3/uL (0.0-0.0); Mean Corp Hgb Conc 33.7 g/dL (32-36); Mean Corpuscular Volume 93.3 fL (80-94); Mean Platelet Vol. 10.2 fl (6.2-12.0); NRBC Flagged by Analyzer 0 % (0-5); Platelet Count 277 K/mm3 (150-450); RBC Distribution Width CV 12.6 % (11.6-14.6); RBC Distribution Width SD 43.2 fl (35.1-43.9); Red Blood Count 2.67 M/mm3 (4.6-6.2); White Blood Count 6.1 K/mm3 (4.4-11.0)
[2025-06-12 08:11] LABS: Anion Gap 15 (5-15); BUN 66 mg/dL (4-19); BUN/Creat Ratio 11.8 RATIO (10-20); Calcium,Total 8.4 mg/dL (7.6-11.0); Carbon Dioxide 21.9 mmol/L (21.0-32.0); Chloride 109 mmol/L (98-108); Estimated Creatinine Clearance 12.75 ml/min (50-250); Glucose 121 mg/dL (70-99); Potassium 3.9 mmol/L (3.3-5.1)
[2025-06-12 09:35] VITALS: BP 127/63; PULSE 82; RESP 18; TEMP 36.4; O2SAT 95
[2025-06-12] MEDS: Aspirin E.C. 81 MG Tablet PO (10:33)
[2025-06-12] MEDS: Insulin Glargine-YFGN 100 UNIT/ML Pen 36 UNIT SC (10:34)
--- NOTE | 2025-06-12 12:40 | PCM.PN.HOSP ---
Reason for Visit Chief Complaint: Intractable N/V Objective Data Objective Data Vital Signs: Vital Signs Temp Pulse Resp BP Pulse Ox O2 Del Method O2 Flow Rate 97.6 F L 82 18 127/63 H 95 Room Air 2 06/12/25 09:35 06/12/25 09:35 06/12/25 09:35 06/12/25 09:35 06/12/25 09:35 06/12/25 10:00 06/07/25 05:00 Oxygen Flow Rate (L/min) 2 Oxygen Delivery Method Room Air Weight: 179 lb 10.828 oz Body Mass Index (BMI) 24.3 Intake & Output: Intake and Output for Last 24 Hours 06/10/25 06/11/25 06/12/25 23:59 23:59 23:59 Intake Total 600 / 600 240 / 240 Output Total 5500 / 5500 2450 / 2450 700 / 700 Balance -5500 / -5500 -1850 / -1850 -460 / -460 Lab / Micro Data 06/12/25 06:47 06/12/25 06:47 Labs: Laboratory Results - last 24 hr 06/11/25 14:06: POC Glucose 199 H 06/11/25 16:33: POC Glucose 324 H 06/11/25 22:17: POC Glucose 367 H 06/12/25 06:23: POC Glucose 117 H 06/12/25 06:47: WBC 6.1, RBC 2.67 L, Hgb 8.4 L, Hct 24.9 L, MCV 93.3, MCH 31.5, MCHC 33.7, RDW Std Deviation 43.2, RDW Coeff of Rich 12.6, Plt Count 277, MPV 10.2, Immature Gran % (Auto) 0.500, Neut % (Auto) 58.0, Lymph % (Auto) 17.9 L, [place] % (Auto) 16.9 H, Eos % (Auto) 6.4 H, Baso % (Auto) 0.3, Absolute Neuts (auto) 3.5, Absolute Lymphs (auto) 1.09, Nucleated RBC % 0, Sodium 146 H, Potassium 3.9, Chloride 109 H, Carbon Dioxide 21.9, Anion Gap 15, BUN 66 H, Creatinine 5.58 H, Estim Creat Clear Calc 12.75 L, Est GFR (MDRD) Non-Af 10 L, BUN/Creatinine Ratio 11.8, Glucose 121 H, Calcium 8.4 06/12/25 11:45: POC Glucose 332 H Micro: Microbiology 06/05/25 12:10 Urine Catheter - Bolaños Urine Culture - Final Culture exhibits no growth. Rhythm Strip Rhythm Strip: Sinus Rhythm Rate: 85 Ectopy: None Physical Exam Narrative Seen and examined No acute issues. Mild anxiety sometimes gets irritable. I talked to the . Patient has history of CAD status post stent and a stroke in the past. Had [facility]/cardiac stent in 2000. Has a stroke with residual aphasia/mild language difficulties in understanding and writing. Wants to go home. Had hematuria on first day of admission. Physical exam General: Alert, Oriented x3, Cooperative HEENT: Atraumatic, PERRLA, EOMI, Normocephalic. Oral: No Gingival or Mucosal Lesions/ Ulcerations Neck: Supple, No JVD, Negative Carotid Bruits Chest wall/Lungs: Air entry diminished in bilateral lung bases. No crepitation/rhonchi Cardiovascular: Regular rate and rhythm, Normal S1,S2, No M/G/R Abdomen: Bowel Sounds Present, Soft, Non Tender, Non-Distended : Bolaños catheter. Clear urine. No dysuria. No renal angle tenderness. No suprapubic tenderness. Extremities: No edema, Capillary Refill Less than 3 Seconds Skin: No rashes, No breakdown Musculoskeletal: No Tenderness to Palpation of Joints or Extremities Neurological: Cranial nerves II-XII grossly intact, DTR 2+/4. No acute focal neurological deficit. Psych/Mental Status: Mild frustrated Assessment & Plan Assessment/Plan (1) Hypoglycemia: (2) Acute metabolic acidosis: (3) Hyperkalemia, diminished renal excretion: (4) Acute renal failure: (5) Acute uremia: PLAN: Plan 74-year-old gentleman was admitted with intractable nausea and vomiting and found to have JINA with hyperkalemia, admitted on the monitored bed. Required further transfer to ICU for acute hyperkalemia and that downgraded to PCU JINA on CKD stage IIIb - Baseline creatinine is between 1.4 and 1.6 as of March 2025 - Urine output seems to be improving -Renal biopsy for Saturday if renal function is not recovering -Effient on hold okay per discussion with Dr. Garrison but will need help for 7 days prior to biopsy - Continue Bolaños and monitor for renal recovery - Serologies were unremarkable - Nephrology following-appreciate input - Will decide on ongoing needs in the next 24 hours 06/11: On admission patient creatinine was 8.74, creatinine 10.7 and then fluctuates, today 7.70. BUN fluctuates between 70-90. Rn Teacher report reviewed. Patient urine output is good. Hemodialysis today. Serologies are negative. Plan for kidney biopsy on Saturday. Likely tentative discharge on Saturday. 06/12: Patient had about 2500 mL of urine output. No significant fluid removal on dialysis here yesterday but mainly for electrolyte support. Discussed with the balance sheet analyst we will surgery. Plan for tunneled dialysis catheter and renal biopsy on Saturday informed by the patient and his . Surgery consulted for tunneled dialysis catheter. Anion gap metabolic acidosis - Much improved and is improving with improved renal function Acute on chronic anemia - Stable - No signs of acute drop at this time - Will continue to monitor - Baseline appears to be between 11 and 13 - 06/11 hemoglobin 8.9 decreased from 12.0. His baseline hemoglobin is about 12 in November 2024. Not on any scheduled anticoagulant. Only on baby aspirin. 06/12: H&H 8.4/24.9%. CAD/carotid artery stenosis/essential hypertension/hyperlipidemia/history of TIA - No stents within the last 12 months - Effient on hold for renal biopsy --> discussed with cardiology - continue home aspirin - Continue home carvedilol - continue home amlodipine - Lisinopril on hold due to renal dysfunction - Continue isosorbide mononitrate - Follows with vascular and cardiology as an outpatient - BP is overall improved 06/05; blood pressure is good DM-2 - Hold metformin - Hold glimepiride - SSI 06/12: Blood sugar is variable 117 and then 332. Humalog insulin added. 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 CODE STATUS - Full code Charges/Coding Visit Charges Inpatient E&M: 01346 Subs Hosp L2
[2025-06-12 15:20] VITALS: BP 153/70; PULSE 80; RESP 18; TEMP 36.5; O2SAT 96
--- NOTE | 2025-06-12 17:18 | PCM.PN.REN ---
Subjective Subjective feels well no new complaints making urine Objective Data Objective Data Vital Signs: Vital Signs Temp Pulse Resp BP Pulse Ox O2 Del Method O2 Flow Rate 97.7 F L 80 18 153/70 H 96 Room Air 2 06/12/25 15:20 06/12/25 15:20 06/12/25 15:20 06/12/25 15:20 06/12/25 15:20 06/12/25 15:20 06/07/25 05:00 Oxygen Flow Rate (L/min) 2 Oxygen Delivery Method Room Air Weight: 81.5 kg Body Mass Index (BMI) 24.3 Intake & Output: Intake and Output for Last 24 Hours 06/10/25 06/11/25 06/12/25 23:59 23:59 23:59 Intake Total 600 / 600 240 / 240 Output Total 5500 / 5500 2450 / 2450 700 / 700 Balance -5500 / -5500 -1850 / -1850 -460 / -460 Lab / Micro Data 06/12/25 06:47 06/12/25 06:47 Labs: Laboratory Results - last 24 hr 06/11/25 22:17: POC Glucose 367 H 06/12/25 06:23: POC Glucose 117 H 06/12/25 06:47: WBC 6.1, RBC 2.67 L, Hgb 8.4 L, Hct 24.9 L, MCV 93.3, MCH 31.5, MCHC 33.7, RDW Std Deviation 43.2, RDW Coeff of Rich 12.6, Plt Count 277, MPV 10.2, Immature Gran % (Auto) 0.500, Neut % (Auto) 58.0, Lymph % (Auto) 17.9 L, [place] % (Auto) 16.9 H, Eos % (Auto) 6.4 H, Baso % (Auto) 0.3, Absolute Neuts (auto) 3.5, Absolute Lymphs (auto) 1.09, Nucleated RBC % 0, Sodium 146 H, Potassium 3.9, Chloride 109 H, Carbon Dioxide 21.9, Anion Gap 15, BUN 66 H, Creatinine 5.58 H, Estim Creat Clear Calc 12.75 L, Est GFR (MDRD) Non-Af 10 L, BUN/Creatinine Ratio 11.8, Glucose 121 H, Calcium 8.4 06/12/25 11:45: POC Glucose 332 H 06/12/25 16:36: POC Glucose 325 H Micro: Microbiology 06/05/25 12:10 Urine Catheter - Bolaños Urine Culture - Final Culture exhibits no growth. Rhythm Strip Rhythm Strip: Sinus Rhythm Rate: 85 Ectopy: None Physical Exam Narrative Alert awake oriented x 3 no obvious distress no pallor no icterus no JVD s1s2 no murmurs lungs clear abdomen soft no organomegaly no edema no cyanosis Assessment & Plan Assessment/Plan (1) Acute renal failure: (2) Hyperkalemia, diminished renal excretion: (3) Acute metabolic acidosis: (4) Essential hypertension: (5) Type 2 diabetes mellitus: QUALIFIERS: Diabetes mellitus long-term insulin use: without joint terminal attack controller use Diabetes mellitus complication status: with circulatory complication Diabetes mellitus complication detail: with other circulatory complications Qualified Code(s): E11.59 - Type 2 diabetes mellitus with other circulatory complications PLAN: Plan Assessment/Plan: The patient is a 74-year-old male with past history of CKD stage G3b, type 2 diabetes mellitus, hypertension, CAD status post PCI, PAD, stroke, hypothyroidism, BPH, iron deficiency anemia, and hyperlipidemia. Patient presented to hospital with 2-day history of intractable nausea/vomiting, anorexia and generalized weakness. Patient was found to have acute kidney injury on chronic kidney disease associated with hyperkalemia and severe metabolic acidosis. Nephrology is asked to the patient because of JINA, metabolic acidosis and hyperkalemia. Acute kidney injury on chronic kidney disease stage G3b. Baseline creatinine about 1.4-1.6 as of March 2025. Presented with 2 days of nausea. Found to have renal failure, worsening. Creatinine is up to 10. Initial urine analysis with protein Renal ultrasound without any hydronephrosis Was not particularly hypotensive. Denies any [id number] supplements. He started taking a probiotic due to diarrhea over the last 6 weeks or so. started HD 06/07/25 HD today. see orders Urine output has picked up. Will hold dialysis after today and monitor labs. If renal function gets better, he will not need any further intervention. If renal function does not improve, he will need kidney biopsy. Tentatively tunneled dialysis catheter also. Discussed with family at bedside. Renal diet for now. 06/10/25. urine output is very good. 1.8 L. cr ok. lytes are ok. serologies are negative. possible its all ATN. repeat labs in am. further decision on HD depending on labs tomorrow. florian family bedside 06/11/25. Cr higher. kind of surprising since his urine output is pretty good. HD today. serologies are all negative. will plan for biopsy on saturday. likely TDC on saturday. will florian hospitalist 06/12/25 -volume, electrolytes ok today -plan on renal biopsy on saturday along with TDC -continue with HD MWF for now
[2025-06-12 20:11] VITALS: BP 150/64; PULSE 82; RESP 16; TEMP 36.7; O2SAT 97
[2025-06-12] MEDS: 0.9% Saline Lock 10 ML Syringe IV (21:25)
[2025-06-13 03:12] VITALS: BMI 22.0
[2025-06-13 03:32] VITALS: BP 122/52; PULSE 79; RESP 18; TEMP 36.6; O2SAT 97
[2025-06-13 06:23] LABS: Prothrombin Time (Protime)PT. 14.1 SECONDS (11.7-14.9)
[2025-06-13 06:38] LABS: Anion Gap 14 (5-15); BUN 72 mg/dL (4-19); BUN/Creat Ratio 11.7 RATIO (10-20); Calcium,Total 8.4 mg/dL (7.6-11.0); Carbon Dioxide 22.0 mmol/L (21.0-32.0); Chloride 112 mmol/L (98-108); Estimated Creatinine Clearance 10.95 ml/min (50-250); Glucose 108 mg/dL (70-99); Potassium 3.9 mmol/L (3.3-5.1)
[2025-06-13 08:55] VITALS: BP 128/73; PULSE 83; RESP 18; TEMP 36.6; O2SAT 99
[2025-06-13] MEDS: Aspirin E.C. 81 MG Tablet PO (08:56)
[2025-06-13] MEDS: Insulin Glargine-YFGN 100 UNIT/ML Pen 36 UNIT SC (08:57)
--- NOTE | 2025-06-13 09:00 | CON.PCM.SX_ITS ---
Assessment & Plan Assessment/Plan (1) Acute renal failure: PLAN: Plan Discussed with patient and his will plan for the temporary dialysis catheter to be removed tomorrow morning. Plan for placement of a tunneled dialysis catheter right possible left tomorrow early afternoon. Discussed procedure including not limited to risk of bleeding, infection, malfunction of the catheter. Patient and his had no further question this time. Tanika Bear M.D. Pager: [phone] [facility] [address] [place] [address], Outpatient Pavilion, [address] [place] [address] Office: [phone] HPI Consult Data Date of Consult: 06/14/25 HPI Narrative HPI Narrative: MARIBELL LAINEZ, is a 74 M who admitted due to acute kidney injury and has been getting hemodialysis via temporary right IJ dialysis catheter. Plan is for patient to go home and continue hemodialysis and will need tunneled dialysis catheter. Patient does have a history of stroke per patient and his with some residual aphasia?they state the carotid is completely occluded on the right and 60% left was scheduled to carotid endarterectomy tomorrow prior to coming in with acute kidney injury, hyperkalemia. [facility] Medical History Cancer Alcohol use History of steroid therapy Back pain TIA (transient ischemic attack) Gastric reflux Shortness of breath on exertion Hypertension Leg cramps History of stress test History of echocardiogram History of Holter monitoring Diarrhea Lower urinary tract symptoms (LUTS) Acute urinary retention Hypothyroidism Lumbar radiculopathy, acute Near syncope Chest pain Wears glasses Insulin dependent diabetes mellitus High cholesterol Stroke/cerebrovascular accident Dietary restriction Former smoker Cardiology follow-up encounter History of heart attack History of hemorrhagic cerebrovascular accident (CVA) without residual deficits Carotid artery disease Coronary artery disease Dyspnea on exertion Abnormal stress test History of recent pneumonia Hypertriglyceridemia Cardiomyopathy, ischemic History of left heart catheterization (LHC) BPH (benign prostatic hyperplasia) Multiple lacunar infarcts Hemorrhagic cerebrovascular accident (CVA) DDD (degenerative disc disease) Pure hypercholesterolemia CKD (chronic kidney disease) stage 3, GFR 30-59 ml/min Right carotid artery occlusion Bilateral carotid artery stenosis Essential hypertension Type 2 diabetes mellitus Presence of stent in coronary artery (~08/28/01) Atherosclerotic heart disease of [place] coronary artery without angina pectoris Home Medications ?Medication ?Instructions ?Recorded ?Last Taken ?Type ascorbic acid (vitamin C) 500 mg 500 mg PO DAILY SUPPL EMENT 07/05/21 01/11/25 History tablet aspirin 81 mg tablet,delayed 81 mg PO DAILY HEART HEAL TH 07/05/21 01/11/25 History release (Adult Low Dose Aspirin) cyanocobalamin (vitamin B-12) 1,000 mcg PO DAILY SUPPL EMENT 07/05/21 01/12/25 History 5,000 mcg disintegrating tablet cholecalciferol (vitamin D3) 25 25 mcg PO BID SUPPLEME NT 07/20/21 01/12/25 History mcg (1,000 unit) tablet lancets 33 gauge (OneTouch Delica #100 ea 05/04/24 Unk nown Rx Plus Lancet) atorvastatin 80 mg tablet 80 mg PO QHS CHOLESTEROL #90 08/10/24 01/11/25 Rx TABLETS carvedilol 12.5 mg tablet 12.5 mg PO BID HEART #180 ta bs 08/10/24 01/12/25 Rx lisinopril 20 mg tablet 20 mg PO DAILY BP #90 TABLET S 08/10/24 01/12/25 Rx metformin 500 mg tablet 1,000 mg (2 x 500 mg) PO BID
--- NOTE | 2025-06-13 09:00 | EX.PCM.CON.S ---
Assessment & Plan Assessment/Plan (1) Acute renal failure: PLAN: Plan Discussed with patient and his will plan for the temporary dialysis catheter to be removed tomorrow morning. Plan for placement of a tunneled dialysis catheter right possible left tomorrow early afternoon. Discussed procedure including not limited to risk of bleeding, infection, malfunction of the catheter. Patient and his had no further question this time. Tanika Bear M.D. Pager: [phone] [facility] [address] [place] [address], Outpatient Pavilion, [address] [place] [address] Office: [phone] HPI Consult Data Date of Consult: 06/14/25 HPI Narrative HPI Narrative: MARIBELL LAINEZ, is a 74 M who admitted due to acute kidney injury and has been getting hemodialysis via temporary right IJ dialysis catheter. Plan is for patient to go home and continue hemodialysis and will need tunneled dialysis catheter. Patient does have a history of stroke per patient and his with some residual aphasia?they state the carotid is completely occluded on the right and 60% left was scheduled to carotid endarterectomy tomorrow prior to coming in with acute kidney injury, hyperkalemia. [facility] Medical History Cancer Alcohol use History of steroid therapy Back pain TIA (transient ischemic attack) Gastric reflux Shortness of breath on exertion Hypertension Leg cramps History of stress test History of echocardiogram History of Holter monitoring Diarrhea Lower urinary tract symptoms (LUTS) Acute urinary retention Hypothyroidism Lumbar radiculopathy, acute Near syncope Chest pain Wears glasses Insulin dependent diabetes mellitus High cholesterol Stroke/cerebrovascular accident Dietary restriction Former smoker Cardiology follow-up encounter History of heart attack History of hemorrhagic cerebrovascular accident (CVA) without residual deficits Carotid artery disease Coronary artery disease Dyspnea on exertion Abnormal stress test History of recent pneumonia Hypertriglyceridemia Cardiomyopathy, ischemic History of left heart catheterization (LHC) BPH (benign prostatic hyperplasia) Multiple lacunar infarcts Hemorrhagic cerebrovascular accident (CVA) DDD (degenerative disc disease) Pure hypercholesterolemia CKD (chronic kidney disease) stage 3, GFR 30-59 ml/min Right carotid artery occlusion Bilateral carotid artery stenosis Essential hypertension Type 2 diabetes mellitus Presence of stent in coronary artery (~08/28/01) Atherosclerotic heart disease of [place] coronary artery without angina pectoris Home Medications ?Medication ?Instructions ?Recorded ?Last Taken ?Type ascorbic acid (vitamin C) 500 mg 500 mg PO DAILY SUPPLEMENT 07/05/21 01/11/25 History tablet aspirin 81 mg tablet,delayed 81 mg PO DAILY HEART HEALTH 07/05/21 01/11/25 History release (Adult Low Dose Aspirin) cyanocobalamin (vitamin B-12) 1,000 mcg PO DAILY SUPPLEMENT 07/05/21 01/12/25 History 5,000 mcg disintegrating tablet cholecalciferol (vitamin D3) 25 25 mcg PO BID SUPPLEMENT 07/20/21 01/12/25 History mcg (1,000 unit) tablet lancets 33 gauge (OneTouch Delica #100 ea 05/04/24 Unknown Rx Plus Lancet) atorvastatin 80 mg tablet 80 mg PO QHS CHOLESTEROL #90 08/10/24 01/11/25 Rx TABLETS carvedilol 12.5 mg tablet 12.5 mg PO BID HEART #180 tabs 08/10/24 01/12/25 Rx lisinopril 20 mg tablet 20 mg PO DAILY BP #90 TABLETS 08/10/24 01/12/25 Rx metformin 500 mg tablet 1,000 mg (2 x 500 mg) PO BID BLOOD 08/10/24 01/12/25 Rx SUGARS #360 tabs pen needle, diabetic 32 gauge x #100 ea 01/04/25 Unknown Rx 1/ (Comfort EZ Pen [place]) finasteride 5 mg tablet 5 mg PO QHS PROSTATE 01/27/25 Unknown History blood sugar diagnostic (OneTouch #100 ea 02/24/25 Unknown Rx Verio test strips) glimepiride 4 mg tablet 4 mg PO BID BLOOD SUGARS #90 tabs 02/25/25 Unknown Rx tamsulosin 0.4 mg capsule 0.4 mg PO QHS PROSTATE #90 caps 04/09/25 Unknown Rx insulin glargine U-300 conc 300 36 unit (0.12 mL) subcut DAILY 04/19/25 Unknown Rx unit/mL (1.5 mL) subcutaneous pen BLOOD SUGARS #4.5 mL (Toujeo SoloStar U-300 Insulin) loratadine 10 mg tablet 10 mg PO QDAY ALLERGY 04/28/25 Unknown History prasugrel HCl 10 mg tablet 10 mg PO QDAY HEART #90 tabs 05/18/25 Unknown Rx (Effient) amlodipine 5 mg tablet 5 mg PO QHS BP 05/28/25 Unknown History famotidine 20 mg tablet 20 mg PO QHS GERD 05/28/25 Unknown History isosorbide mononitrate 30 mg 30 mg PO QHS HEART 05/28/25 Unknown History tablet,extended release 24 hr magnesium glycinate 100 mg (as 400 mg PO QHS SUPPLEMENT 05/28/25 Unknown History glycinate) tablet Allergy/AdvReac Type Severity Reaction Status Date / Time ticagrelor (From Brilinta) AdvReac Severe Other Verified 06/05/25 04:27 Family History Mother CAD (coronary artery disease) Diabetes Myocardial infarction, Onset Age: 48 Father Diabetes Breast cancer Brother Diabetes Cancer Brother Cancer Prostate Surgical History History of cardiac catheterization History of lumbar discectomy Hx of oral surgery History of coronary artery stent placement History of removal of skin mole Hx of LASIK Hx of colonoscopy History of left heart catheterization (LHC) (~06/01/22) History of arthroscopic surgery of shoulder History of laminectomy (~2007) Presence of coronary angioplasty implant and graft (~08/28/01) Social History household members: spouse housing: house Smoking Status: Former smoker alcohol intake: never details: occasional substance use type: does not use caffeine: Yes Type: tea Number of servings: 1 what type of physical activity do you participate in: none additional social history: Daily aspirin use. Does not use ibuprofen daily. ROS Constitutional Constitutional: Denies anorexia Eyes Eyes: Denies blurry vision ENT HEENT: Denies dysphagia Cardiovascular Cardiovascular: Denies chest pain Respiratory/Chest Respiratory/Chest: Denies productive cough Gastrointestinal Gastrointestinal: Denies abdominal pain, nausea or vomiting Genitourinary Genitourinary: Denies hematuria Musculoskeletal Musculoskeletal: Denies joint swelling Integumentary Integumentary: Denies jaundice Neurologic Neurologic: Denies focal weakness Psychiatric Psychiatric: Denies anxiety or depression Hematologic/Lymphatic Hematologic/Lymphatic: Denies easy bleeding Physical Exam Narrative Right IJ temporary dialysis catheter in place Const alert, oriented x3 and no apparent distress HEENT normocephalic and head/scalp atraumatic Resp normal respiratory effort Cardio regular rate GI soft to palpation and non-tender; Negative for non-distended Palpation: Negative for guarding Extremity no clubbing, cyanosis or edema Skin no rashes or lesions noted Neuro CN's II-XII intact bilaterally Psych mental status grossly normal Lab / Micro Data 06/14/25 05:02 06/14/25 05:02 Labs: Laboratory Results - last 24 hr 06/12/25 11:45: POC Glucose 332 H 06/12/25 16:36: POC Glucose 325 H 06/12/25 21:18: POC Glucose 201 H 06/13/25 05:23: PT 14.1, INR 1.1, Sodium 148 H, Potassium 3.9, Chloride 112 H, Carbon Dioxide 22.0, Anion Gap 14, BUN 72 H, Creatinine 6.16 H, Estim Creat Clear Calc 10.95 L, Est GFR (MDRD) Non-Af 9 L, BUN/Creatinine Ratio 11.7, Glucose 108 H, Calcium 8.4 06/13/25 07:40: POC Glucose 168 H Rhythm Strip Rhythm Strip: Sinus Rhythm Rate: 85 Ectopy: None Charges/Coding Visit Charges Inpatient E&M: 07145 Init Hosp L3
--- NOTE | 2025-06-13 11:42 | PN.HOSP_ITS ---
Reason for Visit Chief Complaint: Intractable N/V Objective Data Objective Data Vital Signs: Vital Signs Temp Pulse Resp BP Pulse Ox O2 Del Method O2 Flow Rate 97.9 F 83 18 128/73 H 99 Room Air 2 06/13/25 08:55 06/13/25 08:55 06/13/25 08:55 06/13/25 08:55 06/13/25 08:55 06/13/25 08:55 06/07/25 05:00 Oxygen Flow Rate (L/min) 2 Oxygen Delivery Method Room Air Weight: 162 lb 4.163 oz Body Mass Index (BMI) 22.0 Intake & Output: Intake and Output for Last 24 Hours 06/11/25 06/12/25 06/13/25 23:59 23:59 23:59 Intake Total 600 / 600 480 / 480 Output Total 2450 / 2450 1200 / 1900 1300 / 1300 Balance -1850 / -1850 -720 / -1420 -1300 / -1300 Lab / Micro Data 06/12/25 06:47 06/13/25 05:23 Labs: Laboratory Results - last 24 hr 06/12/25 11:45: POC Glucose 332 H 06/12/25 16:36: POC Glucose 325 H 06/12/25 21:18: POC Glucose 201 H 06/13/25 05:23: PT 14.1, INR 1.1, Sodium 148 H, Potassium 3.9, Chloride 112 H, Carbon Dioxide 22.0, Anion Gap 14, BUN 72 H, Creatinine 6.16 H, Estim Creat Clear Calc 10.95 L, Est GFR (MDRD) Non-Af 9 L, BUN/Creatinine Ratio 11.7, G lucose 108 H, Calcium 8.4 06/13/25 07:40: POC Glucose 168 H Micro: Microbiology 06/05/25 12:10 Urine Catheter - Bolaños Urine Culture - Final Culture exhibits no growth. Rhythm Strip Rhythm Strip: Sinus Rhythm Rate: 85 Ectopy: None Physical Exam Narrative Seen and examined No acute issues. Mild anxiety controlled/getting better on BuSpar. Discussed with the . Urine output is good. Bolaños catheter was removed yesterday. Patient has history of CAD status post stent and a stroke in the past. Had NE/cardiac stent in 2000. Has a stroke with residual aphasia/mild language difficulties in understanding and writing. Wants to go home. Had hematuria on first day of admission. Physical exam General: Alert, Oriented x3, Cooperative HEENT: Atraumatic, PERRLA, EOMI, Normocephalic. Oral: No Gingival or Mucosal Lesions/ Ulcerations Neck: Right IJ dialysis catheter. Supple, No JVD, Negative Carotid Bruits Chest wall/Lungs: Air entry diminished in bilateral lung bases. No crepitation/rhonchi Cardiovascular: Regular rate and rhythm, Normal S1,S2, No M/G/R Abdomen: Bowel Sounds Present, Soft, Non Tender, Non-Distended : Clear urine. No dysuria. No renal angle tenderness. No suprapubic tenderness. Extremities: No edema, Capillary Refill Less than 3 Seconds Skin: No rashes, No breakdown Musculoskeletal: No Tenderness to Palpation of Joints or Extremities Neurological: Cranial nerves II-XII grossly intact, DTR 2+/4. No acute focal neurological deficit. Psych/Mental Status: Mild frustrated Assessment & Plan Assessment/Plan (1) Hypoglycemia: (2) Acute metabolic acidosis: (3) Hyperkalemia, diminished renal excretion: (4) Acute renal failure: (5) Acute uremia: PLAN: Plan 74-year-old gentleman was admitted with intractable nausea and vomiting and found to have JINA with hyperkalemia, admitted on the monitored bed. Required further transfer to ICU for acute hyperkalemia and that downgraded to PCU JINA on CKD stage IIIb - Baseline creatinine is between 1.4 and 1.6 as of March 2025 - Urine output seems to be improving -Renal biopsy for Saturday if renal function is not recovering -Effient on hold okay per discussion with Dr. Garrison but will need help for 7 days prior to biopsy - Continue Bolaños and monitor for renal recovery - Serologies were unremarkable - Nephrology following-appreciate input - Will decide on ongoing needs in the next 24 hours 06/11: On admission patient creatinine was 8.74, creatinine 10.7 and then fluctuates, today 7.70. BUN fluctuates between 70-90. 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 Patient urine output is good. Hemodialysis today. Serologies are negative. Plan for kidney biopsy on Saturday. Likely tentative discharge on Saturday. 06/12: Patient had about 2500 mL of urine output. No significant fluid removal on dialysis here yesterday but mainly for electrolyte support. Discussed with the cemetery workers supervisor we will surgery. Plan for tunneled dialysis catheter and renal biopsy on Saturday informed by the patient and his . Surgery consulted for tunneled dialysis catheter. 06/13: Good urine output. Bolaños catheter was removed yesterday. Was evaluated by cemetery workers supervisor. Plan for right IJ dialysis catheter removal tomorrow and then tunneled dialysis catheter. They also plan for kidney biopsy tomorrow. Creatinine not improving. Serum sodium 148, chloride 112. Potassium normal. BUN 72 Anion gap metabolic acidosis - Much improved and is improving with improved renal function 06/13 anion gap is normal 14. Acute on chronic anemia - Stable - No signs of acute drop at this time - Will continue to monitor - Baseline appears to be between 11 and 13 - 06/11 hemoglobin 8.9 decreased from 12.0. His baseline hemoglobin is about 12 in November 2024. Not on any scheduled anticoagulant. Only on baby aspirin. 06/12: H&H 8.4/24.9%. CAD/carotid artery stenosis/essential hypertension/hyperlipidemia/history of TIA - No stents within the last 12 months - Effient on hold for renal biopsy --> discussed with cardiology - continue home aspirin - Continue home carvedilol - continue home amlodipine - Lisinopril on hold due to renal dysfunction - Continue isosorbide mononitrate - Follows with vascular and cardiology as an outpatient - BP is overall improved 06/05; blood pressure is good DM-2 - Hold metformin - Hold glimepiride - SSI 06/12: Blood sugar is variable 117 and then 332. Humalog insulin added. 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 CODE STATUS - Full code Charges/Coding Visit Charges Inpatient E&M: 13270 Subs Hosp L2
[2025-06-13 14:55] VITALS: BP 152/71; PULSE 86; RESP 18; TEMP 36.4; O2SAT 96
--- NOTE | 2025-06-13 15:13 | PN.RENAL_ITS ---
Subjective Subjective feels well no new complaints Objective Data Objective Data Vital Signs: Vital Signs Temp Pulse Resp BP Pulse Ox O2 Del Method O2 Flow Rate 97.9 F 83 18 128/73 H 99 Room Air 2 06/13/25 08:55 06/13/25 08:55 06/13/25 08:55 06/13/25 08:55 06/13/25 08:55 06/13/25 15:07 06/07/25 05:00 Oxygen Flow Rate (L/min) 2 Oxygen Delivery Method Room Air Weight: 73.6 kg Body Mass Index (BMI) 22.0 Intake & Output: Intake and Output for Last 24 Hours 06/11/25 06/12/25 06/13/25 23:59 23:59 23:59 Intake Total 600 / 600 480 / 480 480 / 480 Output Total 2450 / 2450 1200 / 1900 1825 / 1825 Balance -1850 / -1850 -720 / -1420 -1345 / -1345 Lab / Micro Data Attestation: I reviewed the patient's lab results. 06/12/25 06:47 06/13/25 05:23 Labs: Laboratory Results - last 24 hr 06/12/25 16:36: POC Glucose 325 H 06/12/25 21:18: POC Glucose 201 H 06/13/25 05:23: PT 14.1, INR 1.1, Sodium 148 H, Potassium 3.9, Chloride 112 H, Carbon Dioxide 22.0, Anion Gap 14, BUN 72 H, Creatinine 6.16 H, Estim Creat Clear Calc 10.95 L, Est GFR (MDRD) Non-Af 9 L, BUN/Creatinine Ratio 11.7, G lucose 108 H, Calcium 8.4 06/13/25 07:40: POC Glucose 168 H 06/13/25 12:15: POC Glucose 351 H Micro: Microbiology 06/05/25 12:10 Urine Catheter - Bolaños Urine Culture - Final Culture exhibits no growth. 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 Patient presented to hospital with 2-day history of intractable nausea/vomiting, anorexia and generalized weakness. Patient was found to have acute kidney injury on chronic kidney disease associated with hyperkalemia and severe metabolic acidosis. Nephrology is asked to the patient because of JINA, metabolic acidosis and hyperkalemia. Acute kidney injury on chronic kidney disease stage G3b. Baseline creatinine about 1.4-1.6 as of March 2025. Presented with 2 days of nausea. Found to have renal failure, worsening. Creatinine is up to 10. Initial urine analysis with protein Renal ultrasound without any hydronephrosis Was not particularly hypotensive. Denies any [id number] supplements. He started taking a probiotic due to diarrhea over the last 6 weeks or so. started HD 06/07/25 HD today. see orders Urine output has picked up. Will hold dialysis after today and monitor labs. If renal function gets better, he will not need any further intervention. If renal function does not improve, he will need kidney biopsy. Tentatively tunneled dialysis catheter also. Discussed with family at bedside. Renal diet for now. 06/10/25. urine output is very good. 1.8 L. cr ok. lytes are ok. serologies are negative. possible its all ATN. repeat labs in am. further decision on HD depending on labs tomorrow. dw family bedside 06/11/25. Cr higher. kind of surprising since his urine output is pretty good. HD today. serologies are all negative. will plan for biopsy on saturday. likely TDC on saturday. will dw hospitalist 06/12/25 -volume, electrolytes ok today -plan on renal biopsy on saturday along with TDC -continue with HD MWF for now 06/13 -volume electrolyts stable -still no improvement in solute clearance -plan for HD and renal biopsy tomorrow
[2025-06-13 21:10] VITALS: BP 157/78; PULSE 81; RESP 16; TEMP 36.8; O2SAT 95
[2025-06-14] VITALS (22 sets, daily range): BP systolic 129–166; BP diastolic 56–77; PULSE 73–99; RESP 12–18; TEMP 36.1–36.9; O2SAT 94–98; BMI 22.8; BMI 22.0; BMI 23.1
[2025-06-14 05:12] LABS: Hematocrit 26.5 % (40-54); Hemoglobin 8.7 g/dL (13.0-16.5); Immature Granulocytes Count 0.030 X10^3/uL (0.0-0.0); Mean Corp Hgb Conc 32.8 g/dL (32-36); Mean Corpuscular Volume 95.3 fL (80-94); Mean Platelet Vol. 9.8 fl (6.2-12.0); NRBC Flagged by Analyzer 0 % (0-5); Platelet Count 348 K/mm3 (150-450); RBC Distribution Width CV 12.7 % (11.6-14.6); RBC Distribution Width SD 44.7 fl (35.1-43.9); Red Blood Count 2.78 M/mm3 (4.6-6.2); White Blood Count 7.8 K/mm3 (4.4-11.0)
[2025-06-14 05:25] LABS: Prothrombin Time (Protime)PT. 13.5 SECONDS (11.7-14.9)
[2025-06-14 05:26] LABS: Partial Thromboplast Time 26.8 Seconds (24.1-36.2)
--- NOTE | 2025-06-14 05:55 | EKG12_ITS ---
Test Reason : pre op Blood Pressure : */* mmHG Vent. Rate : 79 BPM Atrial Rate : 79 BPM P-R Int : 152 ms QRS Dur : 86 ms QT Int : 376 ms P-R-T Axes : 58 15 96 degrees QTcB Int : 431 ms Normal sinus rhythm Inferior infarct (cited on or before 24-Aug-2023) Abnormal ECG When compared with ECG of 05-Jun-2025 11:36, QRS axis Shifted right Nonspecific T wave abnormality now evident in Anterolateral leads Confirmed by YING LORENZO, EMIGDIO ([id number]), editor producer MARLON POE ([id number]) on 06/16/2025 8:54:01 AM Referred By: Confirmed By: EMIGDIO HE MD
[2025-06-14 06:03] LABS: Anion Gap 15 (5-15); BUN 77 mg/dL (4-19); BUN/Creat Ratio 12.8 RATIO (10-20); Calcium,Total 9.0 mg/dL (7.6-11.0); Carbon Dioxide 20.5 mmol/L (21.0-32.0); Chloride 114 mmol/L (98-108); Estimated Creatinine Clearance 11.76 ml/min (50-250); Glucose 104 mg/dL (70-99); Potassium 4.3 mmol/L (3.3-5.1)
--- NOTE | 2025-06-14 07:45 | NUR.TO.PHY ---
Temporary IJ dialysis catheter removed per surgical order. Catheter removed w/o complication. Catheter appeared to be intact upon removal. No blood loss from extraction site. Site dressed w/ sterile op site. Pt to undergo tunneled line placement later today. Surgeon notified that temporary was removed.
--- NOTE | 2025-06-14 10:12 | PCM.PN.SRG ---
Subjective Subjective Patient evaluated resting comfortably at the side of the bed. He denies any questions with the catheter procedure today. He had is temporary catheter removed this morning. Objective Data Objective Data Vital Signs: Vital Signs Temp Pulse Resp BP Pulse Ox O2 Del Method O2 Flow Rate 98.5 F 80 16 142/66 H 97 Room Air 2 06/14/25 07:54 06/14/25 07:54 06/14/25 07:54 06/14/25 07:54 06/14/25 07:54 06/14/25 07:54 06/07/25 05:00 Oxygen Flow Rate (L/min) 2 Oxygen Delivery Method Room Air Weight: 162 lb 4.163 oz Body Mass Index (BMI) 22.0 Intake & Output: Intake and Output for Last 24 Hours 06/12/25 06/13/25 06/14/25 23:59 23:59 23:59 Intake Total 480 / 480 840 / 840 Output Total 1200 / 1900 2450 / 3500 1625 / 1625 Balance -720 / -1420 -1610 / -2660 -1625 / -1625 Lab / Micro Data 06/14/25 05:02 06/14/25 05:02 Labs: Laboratory Results - last 24 hr 06/13/25 12:15: POC Glucose 351 H 06/13/25 16:35: POC Glucose 323 H 06/13/25 21:14: POC Glucose 251 H 06/14/25 05:02: WBC 7.8, RBC 2.78 L, Hgb 8.7 L, Hct 26.5 L, MCV 95.3 H, MCH 31.3, MCHC 32.8, RDW Std Deviation 44.7 H, RDW Coeff of Rich 12.7, Plt Count 348, MPV 9.8, Immature Gran % (Auto) 0.400, Neut % (Auto) 62.2, Lymph % (Auto) 17.6 L, Carter % (Auto) 12.5 H, Eos % (Auto) 6.8 H, Baso % (Auto) 0.5, Absolute Neuts (auto) 4.9, Absolute Lymphs (auto) 1.38, Nucleated RBC % 0, PT 13.5, INR 1.0, APTT 26.8, Sodium 149 H, Potassium 4.3, Chloride 114 H, Carbon Dioxide 20.5 L, Anion Gap 15, BUN 77 H, Creatinine 5.97 H, Estim Creat Clear Calc 11.76 L, Est GFR (MDRD) Non-Af 9 L, BUN/Creatinine Ratio 12.8, Glucose 104 H, Calcium 9.0 06/14/25 06:07: POC Glucose 129 H Micro: Microbiology 06/05/25 12:10 Urine Catheter - Bolaños Urine Culture - Final Culture exhibits no growth. Rhythm Strip Rhythm Strip: Sinus Rhythm Rate: 85 Ectopy: None Physical Exam Neck Neck Narrative: Right neck- op-site intact with no active oozing noted Assessment & Plan Assessment/Plan (1) Acute renal failure: PLAN: I am following this patient in conjunction with Dr. Bear. She will independently evaluate this patient. Labs reviewed Plan to have tunneled dialysis catheter placed on right side of chest possible left Patient to have kidney biopsy today and dialysis We will continue to monitor this patient Charges/Coding Visit Charges Inpatient E&M: 48920 Subs Hosp L1 (pre-op; no charge)
[2025-06-14] MEDS: Lactated Ringers 1,000 ML 15 ML IV (10:21)
--- NOTE | 2025-06-14 10:29 | PRE.ANES_ITS ---
ASA Classification* ASA Classification ASA Classification: 3 Assessment & Plan Anesthesia* Anesthesia Assessment Anesthesia Assessment: Discussed sedation and/or anesthesia options, risks, benefits, and alternatives with patient/parents/legal guardian/POA. Questions invited. The patient/parents/legal guardian/POA seems to understand and agrees to proceed with anesthesia plan. Reviewed the physical assessment, medical history, allergy history and patient home medications list prior to surgery/procedure/anesthetic and documented any changes. Performed airway and anesthesia risk assessments. Anesthesia Type Anesthesia Type: MAC History Source History Obtained from:: Patient and Chart Anesthesia Focused Assessment* Temperature: 97.9 F Pulse Rate: 77 Blood Pressure: 155/70 Respiratory Rate: 18 Pulse Ox: 96 Oxygen Delivery Method: Room Air Oxygen Flow Rate (L/min): 2 Airway Assessment Mouth opens: >3 cm Mallampati Score: III Teeth Condition: Intact Labs Anesthesia Preop lab: CBC WBC, (4.4-11.0) 7.8 K/mm3 Today, 05:02 RBC, (4.6-6.2) 2.78 M/mm3 L Today, 05:02 Hgb, (13.0-16.5) 8.7 g/dL L Today, 05:02 Hct, (40-54) 26.5 % L Today, 05:02 Plt Count, (150-450) 348 K/mm3 Today, 05:02 CHEMISTRY Potassium, (3.3-5.1) 4.3 mmol/L Today, 05:02 Sodium, (133-145) 149 mmol/L H Today, 05:02 Magnesium, (1.5-2.2) 1.7 mg/dL 06/07/25, 05:10 Phosphorus, (2.7-4.5) 6.4 mg/dL H 06/06/25, 04:10 BUN, (4-19) 77 mg/dL H Today, 05:02 Creatinine, (0.70-1.20) 5.97 mg/dL H Today, 05:02 Glucose, (70-99) 104 mg/dL H Today, 05:02 POC Glucose, (74-106) 129 mg/dL H Today, 06:07 TSH, (0.300-4.200) 3.230 uIU/mL 11/18/24, 06:01 COAG PT, (11.7-14.9) 13.5 SECONDS Today, 05:02 Pre-Assessment Diagnosis/Proposed Procedure Planned Operative Procedure(s): Tunneled Dialysis catheter Anesthesia History Anesthesia History - statistical technician: Anesthesia History - statistical technician Hx Hospitalization Yes: 12/2024 TIA 05/28/25 08:19 Any Problems With Anesthesia No 06/13/25 20:23 Cholinesterase deficiency No 06/13/25 20:23 You/Your Family Experience No 06/13/25 20:23 fever (hyperthermia) with Relationship Recent Exposure to Contagious No 06/14/25 10:05 Disease Does patient have nerve No 06/13/25 20:23 stimulator Patient instructed to have No 06/13/25 20:23 device shut off --Does patient have Pacemaker No 06/14/25 10:05 or ICD? When Was Last Pacemaker Check QUESTION #4 FULL TEXT: You/Your Family Experience fever (hyperthermia) with Anesthesia Last Oral Intake Last Oral intake: Last Oral Intake NPO since 23:00 06/14/25 10:05 Meds taken in AM with sips of Yes 06/14/25 10:05 water? Meds patient instructed to carvedilol 06/14/25 10:05 take am of surgery PONV PONV - statistical technician: PONV - statistical technician Female HX of Motion Sickness HX of N/V After Surgery Non-Smoker Duration of Surgery greater than 60 minutes Number of Risk Factors PONV Score Height & Weight Height & Weight: Anesthesia: Height & Weight Height 6 ft 06/14/25 10:05 Weight: 77.467 kg 06/14/25 10:05 Body Mass Index (BMI) 23.1 06/14/25 10:05 Respiratory Assessment Respiratory Assessment - statistical technician: Respiratory Tract Infection Hx - statistical technician Hx Respiratory Tract Infection No 06/13/25 20:23 STOP Sleep Apnea STOP Sleep Apnea - statistical technician: STOP Sleep Apnea - statistical technician Hx Hypertension Yes: CONTROLLED WITH MEDS 06/10/25 12:27 Hx Sleep Apnea No 06/05/25 07:50 CPAP BIPAP Do you snore loudly (louder No 06/05/25 07:50 than talking or can be heard Do you often feel tired/ Yes 06/05/25 07:50 fatigued/ sleepy during daytime? Has anyone observed you stop No 06/05/25 07:50 breathing during sleep? STOP Results Positive 06/05/25 07:50 QUESTION #5 FULL TEXT : Do you snore loudly (louder than talking or can be heard through closed doors)? Tobacco Use History Tobacco Use History - statistical technician: Tobacco Use History - statistical technician Tobacco Use Cigarettes 04/16/25 13:29 Smoking Status Former smoker 06/05/25 07:50 Hx Tobacco Use No 06/05/25 07:50 Years Smoking Packs Smoked per Day Smoking Cessation Date was No - quit smoking greater 06/05/25 07:50 within the last 15 years than 15 years ago Hx Smoking Cessation Date 08/16/01 06/05/25 07:50 Hx Smoking Cessation No 06/05/25 07:50 Counseling Hematologic Medial History Hematologic Hx - statistical technician: Hematologic Medical Hx - it software developer Hx of Blood Transfusion No 06/05/25 07:50 Hx of Transfusion in last 3 No 06/05/25 07:50 Months Date of Last Transfusion (if within last 3 months) Ever experience any problems No 06/05/25 07:50 with transfusion(s)? Specify any problems Hx of Preganancy in last 3 N/A 06/05/25 07:50 Months Nurse Filling Out Transfusion ROME 06/05/25 07:50 & Questions: Date: 06/05/25 06/05/25 07:50 Time: 07:53 06/05/25 07:50 Patient unable to answer at this time (ie. confused, unrespo /Reproduction History /Reproductive History - statistical technician: /Reproductive Hx- statistical technician Hx Now No 06/13/25 20:23 Gestational Age (in weeks): EDC: Hx Hx Para Hx Section SAB No 06/13/25 20:23 Active Medications Active Medications: Current Medications Generic Name Dose Route Start Last Admin Trade Name Freq PRN Reason Stop Dose Admin Acetaminophen 650 mg 06/07/25 21:49 06/09/25 22:21 Acetaminophen 325 Mg Tablet PO 650 mg Q4H PRN PRN Administration Pain 1-10 or Fever Amlodipine Besylate 10 mg 06/09/25 22:00 06/13/25 21:16 Amlodipine 10 Mg Tablet PO 10 mg QHS GUALBERTO Administration Protocol Aspirin 81 mg 06/08/25 08:00 06/13/25 08:56 Aspirin E.C. 81 Mg Tablet PO 81 mg On Hold: 06/13/25 10:02 BREAKFAST [facility] Administration Atorvastatin Calcium 80 mg 06/07/25 22:00 06/13/25 21:16 Atorvastatin Calcium 80 Mg Tablet PO 80 mg QHS [facility] Administration Buspirone HCl 10 mg 06/11/25 10:05 06/14/25 06:42 Buspirone 5 Mg Tablet PO Not Given TID [facility] Carvedilol 12.5 mg 06/08/25 08:00 06/14/25 07:42 Carvedilol 12.5 Mg Tablet PO 12.5 mg BIDCM [facility] Administration Protocol Finasteride 5 mg 06/07/25 22:00 06/13/25 21:16 Finasteride 5 Mg Tablet PO 5 mg QHS [facility] Administration Hydralazine HCl 10 mg 06/08/25 08:00 06/11/25 22:23 Hydralazine 20 Mg/Ml Vial IV 10 mg Q6H PRN PRN Administration SBP>160 Protocol Sodium Chloride 250 mls @ 15 mls/hr 06/08/25 06:10 IV .[id number] PRN Saline Flush Sodium Chloride 250 mls @ 15 mls/hr 06/08/25 06:10 IV .[id number] PRN Additional IVPB Infusion Cefazolin Sodium 2 gm/ Sodium 110 mls @ 200 mls/hr 06/14/25 11:00 Chloride IV 06/14/25 11:32 INTRAOP ONE Lactated Ringer's 1,000 mls @ 15 mls/hr 06/14/25 10:30 06/14/25 10:21 IV 15 mls/hr .Q48H [facility] Administration Insulin Glargine 36 unit 06/10/25 10:00 06/14/25 07:52 Insulin Glargine-Yfgn 100 Unit/Ml Pen SC Not Given DAILY [facility] Insulin Human Lispro 0 unit 06/07/25 22:00 06/14/25 06:43 Insulin Lispro 100 Unit/Ml Insuln.Pen SC Not Given ACHS [facility] Protocol Insulin Human Lispro 8 unit 06/12/25 16:00 06/14/25 06:43 Insulin Lispro 100 Unit/Ml Insuln.Pen SC Not Given TIDAC [facility] Isosorbide Mononitrate 30 mg 06/07/25 22:00 06/13/25 21:16 Isosorbide Mononitrate 30 Mg Tablet PO 30 mg QHS GUALBERTO Administration Protocol Loratadine 10 mg 06/08/25 10:00 06/14/25 07:52 Loratadine 10 Mg Tablet PO Not Given Q48 GUALBERTO Senna 2 tablet 06/07/25 21:42 Senna Tablet PO BID PRN PRN constipation Sodium Chloride 10 - 40 ml 06/08/25 06:10 06/12/25 21:25 0.9% Saline Lock 10 Ml Syringe IV 10 ml UD PRN Administration SALINE FLUSH Tamsulosin HCl 0.4 mg 06/07/25 22:00 06/13/25 21:17 Tamsulosin Hcl 0.4 Mg Capsule PO 0.4 mg QHS [facility] Administration [facility] Medical History Cancer Alcohol use History of steroid therapy Back pain TIA (transient ischemic attack) Gastric reflux Shortness of breath on exertion Hypertension Leg cramps History of stress test History of echocardiogram History of Holter monitoring Diarrhea Lower urinary tract symptoms (LUTS) Acute urinary retention Hypothyroidism Lumbar radiculopathy, acute Near syncope Chest pain Wears glasses Insulin dependent diabetes mellitus High cholesterol Stroke/cerebrovascular accident Dietary restriction Former smoker Cardiology follow-up encounter History of heart attack History of hemorrhagic cerebrovascular accident (CVA) without residual deficits Carotid artery disease Coronary artery disease Dyspnea on exertion Abnormal stress test History of recent pneumonia Hypertriglyceridemia Cardiomyopathy, ischemic History of left heart catheterization (LHC) BPH (benign prostatic hyperplasia) Multiple lacunar infarcts Hemorrhagic cerebrovascular accident (CVA) DDD (degenerative disc disease) Pure hypercholesterolemia CKD (chronic kidney disease) stage 3, GFR 30-59 ml/min Right carotid artery occlusion Bilateral carotid artery stenosis Essential hypertension Type 2 diabetes mellitus Presence of stent in coronary artery (~08/28/01) Atherosclerotic heart disease of minto coronary artery without angina pectoris Home Medications ?Medication ?Instructions ?Recorded ?Last Taken ?Type ascorbic acid (vitamin C) 500 mg 500 mg PO DAILY SUPPL EMENT 07/05/21 01/11/25 History tablet aspirin 81 mg tablet,delayed 81 mg PO DAILY HEART HEAL TH 07/05/21 01/11/25 History release (Adult Low Dose Aspirin) cyanocobalamin (vitamin B-12) 1,000 mcg PO DAILY SUPPL EMENT 07/05/21 01/12/25 History 5,000 mcg disintegrating tablet cholecalciferol (vitamin D3) 25 25 mcg PO BID SUPPLEME NT 07/20/21 01/12/25 History mcg (1,000 unit) tablet lancets 33 gauge (Ctaie Blackman #100 ea 05/04/24 Unk nown Rx Plus Lancet) atorvastatin 80 mg tablet 80 mg PO QHS CHOLESTEROL #90 08/10/24 01/11/25 Rx TABLETS carvedilol 12.5 mg tablet 12.5 mg PO BID HEART #180 ta bs 08/10/24 01/12/25 Rx lisinopril 20 mg tablet 20 mg PO DAILY BP #90 TABLET S 08/10/24 01/12/25 Rx metformin 500 mg tablet 1,000 mg (2 x 500 mg) PO BID BLOOD 08/10/24 01/12/25 Rx SUGARS #360 tabs pen needle, diabetic 32 gauge x #100 ea 01/04/25 Unkno wn Rx 09/19 (Comfort EZ Pen Solen) finasteride 5 mg tablet 5 mg PO QHS PROSTATE 5 Unknown History blood sugar diagnostic (OneTouch #100 ea 02/24/25 Unkn own Rx Verio test strips) glimepiride 4 mg tablet 4 mg PO BID BLOOD SUGARS #90 tabs 02/25/25 Unknown Rx tamsulosin 0.4 mg capsule 0.4 mg PO QHS PROSTATE #90 c aps 04/09/25 Unknown Rx insulin glargine U-300 conc 300 36 unit (0.12 mL) subc ut DAILY 04/19/25 Unknown Rx unit/mL (1.5 mL) subcutaneous pen BLOOD SUGARS #4.5 mL (Toujeo SoloStar U-300 Insulin) loratadine 10 mg tablet 10 mg PO QDAY ALLERGY Unknown History prasugrel HCl 10 mg tablet 10 mg PO QDAY HEART #90 tab s 05/18/25 Unknown Rx (Effient) amlodipine 5 mg tablet 5 mg PO QHS BP 05/28/25 Unkn own History famotidine 20 mg tablet 20 mg PO QHS GERD 05/28/25 U nknown History isosorbide mononitrate 30 mg 30 mg PO QHS HEART Unknown History tablet,extended release 24 hr magnesium glycinate 100 mg (as 400 mg PO QHS SUPPLEMEN T 05/28/25 Unknown History glycinate) tablet Allergy/AdvReac Type Severity Reaction Status Date / Time ticagrelor (From Brilinta) AdvReac Severe Other Verified 06/05/25 04:27 Family History Mother CAD (coronary artery disease) Diabetes Myocardial infarction, Onset Age: 48 Father Diabetes Breast cancer Brother Diabetes Cancer Brother Cancer Prostate Surgical History History of cardiac catheterization History of lumbar discectomy Hx of oral surgery History of coronary artery stent placement History of removal of skin mole Hx of LASIK Hx of colonoscopy History of left heart catheterization (LHC) (~06/01/22) History of arthroscopic surgery of shoulder History of laminectomy (~2007) Presence of coronary angioplasty implant and graft (~08/28/01) Social History household members: spouse housing: house Smoking Status: Former smoker alcohol intake: never details: occasional substance use type: does not use caffeine: Yes Type: tea Number of servings: 1 what type of physical activity do you participate in: none additional social history: Daily aspirin use. Does not use ibuprofen daily. Addt'l Information Additional Findings: EF 60%; NSR on EKG Review of Systems (Anesthesia) ROS Narrative System reviewed and no additional complaints, except as documented. Physical Exam Const alert, oriented x3 and average body habitus Cardio regular rate, regular rhythm and no murmurs Cardio Narrative: Previous LAD stent years ago. has > 4 mets
[2025-06-14] MEDS: Cefazolin 1 GM/5 ML Vial 2 GM IV (12:02)
[2025-06-14] MEDS: fentaNYL 100 MCG/2 ML Ampul 50 MCG IV (12:06)
[2025-06-14] MEDS: Lidocaine 1% (5 ml sdv) 5 ML Vial IV (12:06)
[2025-06-14] MEDS: Lidocaine 1% /Epi 1:100 (50ml) 50 ML VIAL (12:30)
--- NOTE | 2025-06-14 12:32 | RAD_ITS ---
PROCEDURE: CHEST 1 VIEW (PORTABLE) 06/14/2025 REASON FOR EXAM: DIALYSIS CATHETER TECHNIQUE: Frontal view of the chest. COMPARISON: 06/07/2025 FINDINGS: Cardiomediastinal silhouette pulmonary vasculature and bony thorax are within normal limits. No focal infiltrates or effusion. Interval replacement of a dual-lumen right-sided IJ catheter with the tip projects over the SVC. RAD/Chest 1 View (Portable) IMPRESSION: No radiographic evidence of acute cardiopulmonary disease. Interval placement of right-sided IJ catheter. No pneumothorax. Reading Location: [place] [address]
--- NOTE | 2025-06-14 12:32 | OP.PCM_ITS ---
Operative Report (Standard) Operative Information Date of Procedure: 06/14/25 Pre-Operative Diagnosis: Acute renal failure Post-Operative Diagnosis: Same Surgery/Procedure Performed: Placement of right IJ tunneled dialysis catheter volunteer fire fighter: No Type of Anesthesia: Local MAC RN Documented Start/Stop Times: Operation Date: 06/14/25 11:00 Case Time Into Pre-Op 06/14/25 09:57 Anesthesia Start 06/14/25 12:00 Into Room 06/14/25 12:00 Procedure Start 06/14/25 12:14 Procedure End 06/14/25 12:29 Anesthesia End 06/14/25 12:38 Out of Room 06/14/25 12:38 Into Recovery 06/14/25 12:42 Out of Recovery 06/14/25 13:20 Procedure Start Time: 12:14 Procedure Stop Time: 12:29 Select all DRAINS/GRAFTS/IMPLANTS that apply: Implanted device Implanted device details: 14.5 Fr x 19 cm Palindrome dual lumen (Lot [id number] reference [id number]) Special Medications: Ancef 2 g IV x 1 Estimated Blood Loss: < 10 cc Specimen collected: No Description of surgery: After informed consent was given, the patient was brought to the operating room and placed in the supine position. Appropriate time out protocol was followed. He was then given IV conscious sedation for anesthesia. The patient's right upper chest and neck were then prepped with a surgical skin preparation and sterile surgical drapes were placed. After proper landmarks were ascertained, the skin at the upper right chest area was then infiltrated with 1:1 mixture of 1% lidocaine with epinephrine and 0.25% maricaine. A needle trocar was then inserted into the right internal jugular vein with ultrasound guidance-multiple vessels were viewed with u/s and the right IJ was chosen-- and there was good aspiration of venous blood. A wire was then threaded into the needle trocar and this was visualized under fluoroscopy to ensure that the wire was in the superior vena cava. Once this was done, then the needle trocar was removed. A small incision was made with an 11 blade knife at the wire entrance site. The dilator x2 with the introducer sheath attached was then placed over the wire into the right internal jugular vein via the Nat angel technique and this was visualized under fluoroscopy. Next the introducer and sheath were in proper position as visualized by fluoroscopy. The location of the cuffed was estimated on the skin, an incision was made with a 15 blade scalpel. The 14.5 Fr x 19 cm Palindrome dual lumen was tunneled from the chest incision to the right neck incision. The sheath was removed. The catheter was placed through the introducer and was positioned with its tip at the junction of the superior vena cava and the right atrium as visualized under fluoroscopy. The cuff of the catheter was in the subcutaneous tissue. The catheter flushed and maximiliano well with saline. Catheter was also flushed with 1.6 cc of 1-10,000 of heparin. Hemostasis was assured. Silver dressing was placed at the catheter exit site. Catheter was sutured with 3-0 nylon sutures. The neck incision was sutured with interrupted 3-0 Vicryl interrupted sutures x2 and Steri-Strips were placed. A large OpSite was placed over the catheter site and a small OpSite over the neck incision. The patient tolerated the procedure well. Surgical Findings: See operative report Complications Complications: No
--- NOTE | 2025-06-14 12:48 | PCM.POST.ANE ---
Anesthesia: Postop Eval I Current Vital Signs Temperature: 97.4 F Pulse Rate: 75 Blood Pressure: 145/68 Respiratory Rate: 16 Pulse Ox: 97 Assessment Airway patent: Yes Spontaneous unlabored respirations: Yes nausea: No Vomiting: No Anesthesia Complication: No Fluid Hydration Crystalloid volume administer (ml): 200 Total IV fluid infused: 200 Progress Note Anesthesia document: Postop Eval 1 completed: Yes
--- NOTE | 2025-06-14 13:12 | POSTOPAN2_ITS ---
Anesthesia Postop Eval I Sum Postop Eval Completion status Anesthesia document: Postop Eval 1 completed: Yes Anesthesia Postop Eval I Summary Anesthesia Postop Eval I Summary: Anesthesia Postop Eval I: Assessment Summary Airway patent Yes 06/14/25 12:50 SITE OPERATIONS [email or web address] Spontaneous unlabored Yes 06/14/25 12:50 SITE OPERATIONS MANAGER.TDOB respirations Mental status nausea No 06/14/25 12:50 SITE OPERATIONS MANAGER.[email or web address] Vomiting No 06/14/25 12:50 SITE OPERATIONS MANAGER.[email or web address] Anesthesia Postop Eval I: Fluid Summary Crystalloid volume administer 200 06/14/25 12:50 SITE OPERATIONS MANAGER.TDOB (ml) Colloids volume administered ( ml) Blood Product volume administered (ml) Total IV fluid infused 200 06/14/25 12:50 SITE OPERATIONS MANAGER.TDOB Anesthesia Postop Eval I: Summary Notes Anesthesia Complication No 06/14/25 12:50 SITE OPERATIONS MANAGER.TDOB Anesthesia Complication Comment: Post-operative progress note Anesthesia: Postop Eval II Evaluation Mental status: Awake and Calm Pain Level: 1 nausea: No Vomiting: No Complications Anesthesia Complication: No
--- NOTE | 2025-06-14 13:12 | PCM.POSTANE2 ---
Anesthesia Postop Eval I Sum Postop Eval Completion status Anesthesia document: Postop Eval 1 completed: Yes Anesthesia Postop Eval I Summary Anesthesia Postop Eval I Summary: Anesthesia Postop Eval I: Assessment Summary Airway patent Yes 06/14/25 12:50 [email or web address] Spontaneous unlabored Yes 06/14/25 12:50 [email or web address] respirations Mental status nausea No 06/14/25 12:50 [email or web address] Vomiting No 06/14/25 12:50 [email or web address] Anesthesia Postop Eval I: Fluid Summary Crystalloid volume administer 200 06/14/25 12:50 [email or web address] (ml) Colloids volume administered ( ml) Blood Product volume administered (ml) Total IV fluid infused 200 06/14/25 12:50 [email or web address] Anesthesia Postop Eval I: Summary Notes Anesthesia Complication No 06/14/25 12:50 [email or web address] Anesthesia Complication Comment: Post-operative progress note Anesthesia: Postop Eval II Evaluation Mental status: Awake and Calm Pain Level: 1 nausea: No Vomiting: No Complications Anesthesia Complication: No
[2025-06-14] MEDS: 0.9% Normal Saline 1,000 ML IV.SOLN. 1000 ML OPERA.SITE (14:04)
[2025-06-14] MEDS: PureFlow B 2K Dialysis Soln 1 BAG 6 BAG PF (14:05)
[2025-06-14] MEDS: 0.9% Saline Lock 10 ML Syringe IV (14:08)
--- NOTE | 2025-06-14 15:03 | CASEMGMT ---
This RN CM was informed that the pt requires HD set up as an OP. RN CM to the pt's room, pt's at bedside. This RN CM provided the pt with a verbal list of local HD centers. Pt prefers [facility] in [place]. Pt prefers an AM chair time with a TTS schedule. Pt and pt's drive and deny transportation concerns. At this time, a referral has been completed via the [employer] [facility]. Awaiting return response. HYDROLOGIST CM updated.
--- NOTE | 2025-06-14 17:06 | PCM.PN.HOSP ---
Reason for Visit Chief Complaint: Intractable N/V Objective Data Objective Data Vital Signs: Vital Signs Temp Pulse Resp BP Pulse Ox O2 Del Method O2 Flow Rate 97.8 F 78 14 155/64 H 98 Room Air 2 06/14/25 16:32 06/14/25 16:32 06/14/25 16:32 06/14/25 16:32 06/14/25 14:03 06/14/25 16:32 06/14/25 10:32 Oxygen Flow Rate (L/min) 2 Oxygen Delivery Method Room Air Weight: 170 lb 12.573 oz Body Mass Index (BMI) 23.1 Intake & Output: Intake and Output for Last 24 Hours 06/12/25 06/13/25 06/14/25 23:59 23:59 23:59 Intake Total 480 / 480 840 / 840 100 / 100 Output Total 1200 / 1900 2450 / 3500 1635 / 1635 Balance -720 / -1420 -1610 / -2660 -1535 / -1535 Lab / Micro Data 06/14/25 05:02 06/14/25 05:02 Labs: Laboratory Results - last 24 hr 06/13/25 21:14: POC Glucose 251 H 06/14/25 05:02: WBC 7.8, RBC 2.78 L, Hgb 8.7 L, Hct 26.5 L, MCV 95.3 H, MCH 31.3, MCHC 32.8, RDW Std Deviation 44.7 H, RDW Coeff of Rich 12.7, Plt Count 348, MPV 9.8, Immature Gran % (Auto) 0.400, Neut % (Auto) 62.2, Lymph % (Auto) 17.6 L, [place] % (Auto) 12.5 H, Eos % (Auto) 6.8 H, Baso % (Auto) 0.5, Absolute Neuts (auto) 4.9, Absolute Lymphs (auto) 1.38, Nucleated RBC % 0, PT 13.5, INR 1.0, APTT 26.8, Sodium 149 H, Potassium 4.3, Chloride 114 H, Carbon Dioxide 20.5 L, Anion Gap 15, BUN 77 H, Creatinine 5.97 H, Estim Creat Clear Calc 11.76 L, Est GFR (MDRD) Non-Af 9 L, BUN/Creatinine Ratio 12.8, Glucose 104 H, Calcium 9.0 06/14/25 06:07: POC Glucose 129 H 06/14/25 10:10: POC Glucose 162 H Micro: Microbiology 06/05/25 12:10 Urine Catheter - Bolaños Urine Culture - Final Culture exhibits no growth. Radiography Diagnostic Testing: Radiology Impression Chest X-Ray 06/14/25 12:32 IMPRESSION: No radiographic evidence of acute cardiopulmonary disease. Interval placement of right-sided IJ catheter. No pneumothorax. Reading Location: [place] [address] Rhythm Strip Rhythm Strip: Sinus Rhythm Rate: 85 Ectopy: None Physical Exam Narrative Seen and examined Patient was very upset in the morning with cancellation of kidney biopsy. Actually there was conflict of timing with both, tunnel dialysis catheter and kidney biopsy scheduled in the morning therefore kidney biopsy postponed for tomorrow. Patient also needs to be dialyzed after hemolysis catheter to see the patency. Discussed with the . Patient undergoing dialysis. Physical exam General: Alert, Oriented x3, Cooperative HEENT: Atraumatic, PERRLA, EOMI, Normocephalic. Oral: No Gingival or Mucosal Lesions/ Ulcerations Neck: Right IJ dialysis removed. Supple, No JVD, Negative Carotid Bruits Chest wall/Lungs: Right chest wall tunneled dialysis catheter. Air entry diminished in bilateral lung bases. No crepitation/rhonchi Cardiovascular: Regular rate and rhythm, Normal S1,S2, No M/G/R Abdomen: Bowel Sounds Present, Soft, Non Tender, Non-Distended : Clear urine. No dysuria. No renal angle tenderness. No suprapubic tenderness. Extremities: No edema, Capillary Refill Less than 3 Seconds Skin: No rashes, No breakdown Musculoskeletal: No Tenderness to Palpation of Joints or Extremities Neurological: Cranial nerves II-XII grossly intact, DTR 2+/4. No acute focal neurological deficit. Psych/Mental Status: Mild frustrated Assessment & Plan Assessment/Plan (1) Hypoglycemia: (2) Acute metabolic acidosis: (3) Hyperkalemia, diminished renal excretion: (4) Acute renal failure: (5) Acute uremia: PLAN: Plan 74-year-old gentleman was admitted with intractable nausea and vomiting and found to have JINA with hyperkalemia, admitted on the monitored bed. Required further transfer to ICU for acute hyperkalemia and that downgraded to PCU JINA on CKD stage IIIb - Baseline creatinine is between 1.4 and 1.6 as of March 2025 - Urine output seems to be improving -Renal biopsy for Saturday if renal function is not recovering -Effient on hold okay per discussion with Dr. Garrison but will need help for 7 days prior to biopsy - Continue Bolaños and monitor for renal recovery - Serologies were unremarkable - Nephrology following-appreciate input - Will decide on ongoing needs in the next 24 hours 06/11: On admission patient creatinine was 8.74, creatinine 10.7 and then fluctuates, today 7.70. BUN fluctuates between 70-90. Electric Razor Assembler report reviewed. Patient urine output is good. Hemodialysis today. Serologies are negative. Plan for kidney biopsy on Saturday. Likely tentative discharge on Saturday. 06/12: Patient had about 2500 mL of urine output. No significant fluid removal on dialysis here yesterday but mainly for electrolyte support. Discussed with the hosiery repairer we will surgery. Plan for tunneled dialysis catheter and renal biopsy on Saturday informed by the patient and his . Surgery consulted for tunneled dialysis catheter. 06/13: Good urine output. Bolaños catheter was removed yesterday. Was evaluated by hosiery repairer. Plan for right IJ dialysis catheter removal tomorrow and then tunneled dialysis catheter. They also plan for kidney biopsy tomorrow. Creatinine not improving. Serum sodium 148, chloride 112. Potassium normal. BUN 72 06/14: Right neck IJ temporary dialysis catheter was removed. Patient was frustrated in the morning try to convince because of postponement of kidney biopsy. Patient had tunneled Alysis catheter and undergoing hemodialysis in the afternoon. Hemostasis good. Discussed with IR regarding postponement of kidney biopsy because of time conflict. Anion gap metabolic acidosis - Much improved and is improving with improved renal function 06/13 anion gap is normal 14. Acute on chronic anemia - Stable - No signs of acute drop at this time - Will continue to monitor - Baseline appears to be between 11 and 13 - 06/11 hemoglobin 8.9 decreased from 12.0. His baseline hemoglobin is about 12 in November 2024. Not on any scheduled anticoagulant. Only on baby aspirin. 06/12: H&H 8.4/24.9%. 06/14 H&H 8.7/26%. Platelet count 348K. CAD/carotid artery stenosis/essential hypertension/hyperlipidemia/history of TIA - No stents within the last 12 months - Effient on hold for renal biopsy --> discussed with cardiology - continue home aspirin - Continue home carvedilol - continue home amlodipine - Lisinopril on hold due to renal dysfunction - Continue isosorbide mononitrate - Follows with vascular and cardiology as an outpatient - BP is overall improved 06/05; blood pressure is good DM-2 - Hold metformin - Hold glimepiride - SSI 06/12: Blood sugar is variable 117 and then 332. Humalog insulin added. 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 CODE STATUS - Full code Charges/Coding Visit Charges Inpatient E&M: 28139 Subs Hosp L2
[2025-06-14 18:19] LABS: Hepatitis B Surface Antigen Nonreactive (Nonreactive)
[2025-06-15] VITALS (18 sets, daily range): BP systolic 121–157; BP diastolic 57–76; PULSE 76–84; RESP 12–18; TEMP 36.1–36.8; O2SAT 94–100; BMI 22.4
[2025-06-15 05:19] LABS: Anion Gap 13 (5-15); BUN 57 mg/dL (4-19); BUN/Creat Ratio 14.2 RATIO (10-20); Calcium,Total 9.0 mg/dL (7.6-11.0); Carbon Dioxide 22.5 mmol/L (21.0-32.0); Chloride 111 mmol/L (98-108); Estimated Creatinine Clearance 17.19 ml/min (50-250); Glucose 246 mg/dL (70-99); Potassium 4.7 mmol/L (3.3-5.1)
[2025-06-15 07:49] LABS: Hematocrit 25.1 % (40-54); Hemoglobin 8.2 g/dL (13.0-16.5); Immature Granulocytes Count 0.030 X10^3/uL (0.0-0.0); Mean Corp Hgb Conc 32.7 g/dL (32-36); Mean Corpuscular Volume 97.3 fL (80-94); Mean Platelet Vol. 10.3 fl (6.2-12.0); NRBC Flagged by Analyzer 0 % (0-5); Platelet Count 348 K/mm3 (150-450); RBC Distribution Width CV 12.8 % (11.6-14.6); RBC Distribution Width SD 45.3 fl (35.1-43.9); Red Blood Count 2.58 M/mm3 (4.6-6.2); White Blood Count 6.5 K/mm3 (4.4-11.0)
--- NOTE | 2025-06-15 09:00 | CT_ITS ---
PROCEDURE: BIOPSY/INJ OR NEEDLE PLACEMENT 06/15/2025 REASON FOR EXAM: RENAL FAILURE TECHNIQUE: Procedure Code: CTBX Modality: CT Procedure: BIOPSY/INJ OR NEEDLE PLACEMENT CT in axial images utilized to guide biopsy. One or more dose reduction techniques were used (e.g., Automated exposure control, adjustment of the mA and/or kV according to patient size, use of iterative reconstruction technique. RADIATION DOSE SUMMARY: CTDlvol: 541 mGy DLP: 3842 MGycm COMPARISON: None FINDINGS: After obtaining a signed informed consent, patient was placed in prone position. Light conscious sedation started utilizing a total of 3 mg of Versed and 50 mg of fentanyl IV. News Broadcaster images using CT was utilized to localize the inferior pole of the left kidney. The skin was prepped and draped in the usual sterile fashion and local anesthesia achieved with 2% lidocaine. A total of 10 cc of lidocaine utilized to achieve local anesthesia. A small skin ermelinda was then utilized to advance a 18 gauge coaxial biopsy needle into the lower pole of the left kidney. 3 passes were made obtained 3 adequate cores. A slurry of Gel-Foam was then injected into the area of biopsy with resulting post biopsy CT scan demonstrating no significant hemorrhage. No immediate postprocedural complications. Patient left the department in stable condition. CT/Biopsy/Inj or Needle Placement IMPRESSION: Successful CT-guided left inferior pole renal biopsy. Reading Location: [place] [address]
[2025-06-15] MEDS: 0.9% Normal Saline (250mL Bag) 250 ML 15 ML IV (09:15)
[2025-06-15] MEDS: Midazolam 2 MG/2 ML Syringe IV ×3 (09:15→09:39)
[2025-06-15] MEDS: fentaNYL 100 MCG/2 ML Ampul IV (09:18)
[2025-06-15] MEDS: Lidocaine 2% (20 ml mdv) 20 ML Vial INFILT (09:36)
--- NOTE | 2025-06-15 09:45 | PCM.PN.HOSP ---
Reason for Visit Chief Complaint: Intractable N/V Objective Data Objective Data Vital Signs: Vital Signs Temp Pulse Resp BP Pulse Ox O2 Del Method O2 Flow Rate 98.3 F 80 18 157/73 H 98 Room Air 2 06/15/25 08:46 06/15/25 08:46 06/15/25 08:46 06/15/25 08:46 06/15/25 08:46 06/15/25 08:46 06/14/25 10:32 Oxygen Flow Rate (L/min) 2 Oxygen Delivery Method Room Air Weight: 165 lb 12.602 oz Body Mass Index (BMI) 22.4 Intake & Output: Intake and Output for Last 24 Hours 06/13/25 06/14/25 06/15/25 23:59 23:59 23:59 Intake Total 840 / 840 680 / 680 Output Total 2450 / 3500 3555 / 3555 725 / 725 Balance -1610 / -2660 -2875 / -2875 -725 / -725 Lab / Micro Data 06/15/25 03:33 06/15/25 03:33 Labs: Laboratory Results - last 24 hr 06/14/25 10:10: POC Glucose 162 H 06/14/25 13:50: Hep Bs Antigen Nonreactive 06/14/25 17:18: POC Glucose 344 H 06/14/25 20:57: POC Glucose 289 H 06/15/25 03:33: WBC 6.5, RBC 2.58 L, Hgb 8.2 L, Hct 25.1 L, MCV 97.3 H, MCH 31.8, MCHC 32.7, RDW Std Deviation 45.3 H, RDW Coeff of Rich 12.8, Plt Count 348, MPV 10.3, Immature Gran % (Auto) 0.500, Neut % (Auto) 59.3, Lymph % (Auto) 19.8, [place] % (Auto) 13.2 H, Eos % (Auto) 6.9 H, Baso % (Auto) 0.3, Absolute Neuts (auto) 3.9, Absolute Lymphs (auto) 1.29, Nucleated RBC % 0, Sodium 147 H, Potassium 4.7, Chloride 111 H, Carbon Dioxide 22.5, Anion Gap 13, BUN 57 H, Creatinine 4.01 H, Estim Creat Clear Calc 17.19 L, Est GFR (MDRD) Non-Af 15 L, BUN/Creatinine Ratio 14.2, Glucose 246 H, Calcium 9.0 Micro: Microbiology 06/05/25 12:10 Urine Catheter - Bolaños Urine Culture - Final Culture exhibits no growth. Radiography Diagnostic Testing: Radiology Impression Chest X-Ray 06/14/25 12:32 IMPRESSION: No radiographic evidence of acute cardiopulmonary disease. Interval placement of right-sided IJ catheter. No pneumothorax. Reading Location: [place] [address] Rhythm Strip Rhythm Strip: Sinus Rhythm Rate: 85 Ectopy: None Physical Exam Narrative Seen and examined Patient was very upset in the morning with cancellation of kidney biopsy. Actually there was conflict of timing with both, tunnel dialysis catheter and kidney biopsy scheduled in the morning therefore kidney biopsy postponed for tomorrow. Patient also needs to be dialyzed after hemolysis catheter to see the patency. Discussed with the . Patient undergoing dialysis. Physical exam General: Alert, Oriented x3, Cooperative HEENT: Atraumatic, PERRLA, EOMI, Normocephalic. Oral: No Gingival or Mucosal Lesions/ Ulcerations Neck: Right IJ dialysis removed. Supple, No JVD, Negative Carotid Bruits Chest wall/Lungs: Right chest wall tunneled dialysis catheter. Air entry diminished in bilateral lung bases. No crepitation/rhonchi Cardiovascular: Regular rate and rhythm, Normal S1,S2, No M/G/R Abdomen: Bowel Sounds Present, Soft, Non Tender, Non-Distended : Clear urine. No dysuria. No renal angle tenderness. No suprapubic tenderness. Extremities: No edema, Capillary Refill Less than 3 Seconds Skin: No rashes, No breakdown Musculoskeletal: No Tenderness to Palpation of Joints or Extremities Neurological: Cranial nerves II-XII grossly intact, DTR 2+/4. No acute focal neurological deficit. Psych/Mental Status: Mild frustrated Assessment & Plan Assessment/Plan (1) Hypoglycemia: (2) Acute metabolic acidosis: (3) Hyperkalemia, diminished renal excretion: (4) Acute renal failure: (5) Acute uremia: PLAN: Plan 74-year-old gentleman was admitted with intractable nausea and vomiting and found to have JINA with hyperkalemia, admitted on the monitored bed. Required further transfer to ICU for acute hyperkalemia and that downgraded to PCU JINA on CKD stage IIIb - Baseline creatinine is between 1.4 and 1.6 as of March 2025 - Urine output seems to be improving -Renal biopsy for Saturday if renal function is not recovering -Effient on hold okay per discussion with Dr. Garrison but will need help for 7 days prior to biopsy - Continue Bolañso and monitor for renal recovery - Serologies were unremarkable - Nephrology following-appreciate input - Will decide on ongoing needs in the next 24 hours 06/11: On admission patient creatinine was 8.74, creatinine 10.7 and then fluctuates, today 7.70. BUN fluctuates between 70-90. Project Coordinator report reviewed. Patient urine output is good. Hemodialysis today. Serologies are negative. Plan for kidney biopsy on Saturday. Likely tentative discharge on Saturday. 06/12: Patient had about 2500 mL of urine output. No significant fluid removal on dialysis here yesterday but mainly for electrolyte support. Discussed with the chemical dependency counselor we will surgery. Plan for tunneled dialysis catheter and renal biopsy on Saturday informed by the patient and his . Surgery consulted for tunneled dialysis catheter. 06/13: Good urine output. Bolaños catheter was removed yesterday. Was evaluated by chemical dependency counselor. Plan for right IJ dialysis catheter removal tomorrow and then tunneled dialysis catheter. They also plan for kidney biopsy tomorrow. Creatinine not improving. Serum sodium 148, chloride 112. Potassium normal. BUN 72 06/14: Right neck IJ temporary dialysis catheter was removed. Patient was frustrated in the morning try to convince because of postponement of kidney biopsy. Patient had tunneled Alysis catheter and undergoing hemodialysis in the afternoon. Hemostasis good. Discussed with IR regarding postponement of kidney biopsy because of time conflict. Anion gap metabolic acidosis - Much improved and is improving with improved renal function 06/13 anion gap is normal 14. Acute on chronic anemia - Stable - No signs of acute drop at this time - Will continue to monitor - Baseline appears to be between 11 and 13 - 06/11 hemoglobin 8.9 decreased from 12.0. His baseline hemoglobin is about 12 in November 2024. Not on any scheduled anticoagulant. Only on baby aspirin. 06/12: H&H 8.4/24.9%. 06/14 H&H 8.7/26%. Platelet count 348K. CAD/carotid artery stenosis/essential hypertension/hyperlipidemia/history of TIA - No stents within the last 12 months - Effient on hold for renal biopsy --> discussed with cardiology - continue home aspirin - Continue home carvedilol - continue home amlodipine - Lisinopril on hold due to renal dysfunction - Continue isosorbide mononitrate - Follows with vascular and cardiology as an outpatient - BP is overall improved 06/05; blood pressure is good DM-2 - Hold metformin - Hold glimepiride - SSI 06/12: Blood sugar is variable 117 and then 332. Humalog insulin added. 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 CODE STATUS - Full code
--- NOTE | 2025-06-15 10:06 | CASEMGMT ---
Addendum entered by Lester Vergara 06/15/25 11:56: Betzy requests the pt to come in tomorrow after DC (before 5-6pm) to fill out preadmission paperwork. Pt and pt's notified who request the to complete the paperwork so the pt can rest at home. However, Lynda states that the pt has to fill out the paperwork. Pt is now agreeable and denies any further questions or concerns. Lynda Lipscomb updated. Addendum entered by Lester Vergara 06/15/25 11:17: Betzy now reports that the pt has been finalized and accepted with a chair time of 0600 and an arrival time of 0540. This RN CM collaborated with Dr Bates who reports anticipated DC is tomorrow. Ruel Howell made aware and plans to start care on . This RN CM updated the pt and pt's who are agreeable and deny any further DC questions or concerns. PUNCH MACHINE OPERATOR CM updated. Original Note: Tunneled cath operative report and HepB results sent to [facility] via the portal. [facility] and states that the pt has a tentative chair time for TTS 0620. Betzy states that she is working on getting this confirmed still. Pt is currently getting a kidney biopsy. This RN CM collaborated with the pt's who states that they enjoy getting up early in the morning and that this time is preferable. Lynda wishes to start care on rather than Saturday if possible. Report given to PUNCH MACHINE OPERATOR LINDA.
[2025-06-15 10:19] LABS: Pathology Sent to OSU SEE PATHOLOGY REPORT
--- NOTE | 2025-06-15 10:52 | PCM.DC ---
Discharge Instructions DC O2, CPAP, BIPAP needs Home O2 Discharge instructions: No Dressing / Incision Discharge Activity: Return to Normal Activity Weight Bearing Status: Weight bearing as tolerated Dressing / Incision Call your doctor if you observe: Fever of 101 or Higher, Coldness, Increased Pain, Numbness or Tingling, Change in Color, Inability to urinate, Inability to have a bowel movement, Shortness of breath, Dizziness, Fainting spells, Swelling in the ankles, Chest pain, Prolonged hiccupping, Increased palpitations (irregular heartbeat) and Calf discomfort Follow Up Care When: IN 2 WEEKS Test Results: Test results from this visit will be discussed in further detail at your follow-up appointment, if applicable. Discharge Plan Admission Admit Date/Time: 06/05/25 05:44 Primary Reason for Your Visit: JINA, etiology unclear Attending Provider: Fawad Bates Primary Care Provider: Savanna Sinclair Consulting Providers: Tabby Zuniga; Richi Hope; Yohannes Nix; Candy Vo; Tanika Bear Instructions Patient Instructions: RAD fat purification worker Instructions for Kidney Biopsy, RAD RN Procedural Sedation Discharge Orders/Prescriptions Prescriptions: New buspirone 10 mg tablet 10 mg PO TID 30 Days Qty: 90 0RF sennosides 8.6 mg tablet 17.2 mg PO BID PRN PRN (Reason: constipation) Qty: 0 0RF Rx Instructions: [id number]. 2 tablet twice daily as needed for constipation. insulin lispro [Humalog KwikPen Insulin] 100 unit/mL Insulin Pen 10 unit subcut TIDAC 30 Days Qty: 15 2RF Rx Instructions: Hold if glucose less than 120 mg/dl Continued cyanocobalamin (vitamin B-12) 5,000 mcg tablet,disintegrating 1,000 mcg PO DAILY ascorbic acid (vitamin C) 500 mg tablet 500 mg PO DAILY aspirin [Adult Low Dose Aspirin] 81 mg tablet,delayed release (DR/EC) 81 mg PO DAILY cholecalciferol (vitamin D3) 25 mcg (1,000 unit) tablet 25 mcg PO BID finasteride 5 mg tablet 5 mg PO QHS loratadine 10 mg tablet 10 mg PO QDAY isosorbide mononitrate 30 mg tablet extended release 24 hr 30 mg PO QHS amlodipine 5 mg tablet 5 mg PO QHS Patient Comments: PT TAKES AT BEDTIME famotidine 20 mg tablet 20 mg PO QHS insulin glargine U-300 conc [Toujeo SoloStar U-300 Insulin] 300 unit/mL (1.5 mL) insulin pen 36 unit subcut DAILY Qty: 4.5 5RF Rx Instructions: Hold if glucose less than 90 mg/dl (DME) lancets [OneTouch Delica Plus Lancet] 33 gauge misc See Rx Instructions .Route Qty: 100 0RF Rx Instructions: As directed Twice Daily to monitor blood glucose for DM II carvedilol 12.5 mg tablet 12.5 mg PO BID Qty: 180 3RF atorvastatin 80 mg tablet 80 mg PO QHS Qty: 90 3RF (DME) pen needle, diabetic [Comfort EZ Pen [place]] 32 gauge x 1/4 needle See Rx Instructions .Route Qty: 100 5RF Rx Instructions: once daily to administer insulin.. 6mm pen needle (DME) OneTouch Verio test strips Strip See Rx Instructions .ROUTE .MEDSUPPLY Qty: 100 11RF Rx Instructions: use as directed twice daily t monitor blood glucose for type 2 DM tamsulosin 0.4 mg capsule 0.4 mg PO QHS Qty: 90 3RF Held lisinopril 20 mg tablet 20 mg PO DAILY Qty: 90 3RF Hold Instructions: Hold for kidney failure. metformin 500 mg tablet 1,000 mg PO BID Qty: 360 3RF Hold Instructions: Hold for kidney failure glimepiride 4 mg tablet 4 mg PO BID Qty: 90 3RF Hold Instructions: Because of kidney failure prasugrel HCl [Effient] 10 mg tablet 10 mg PO QDAY Qty: 90 3RF Hold Instructions: Hold for 5 days. Discontinued magnesium glycinate 100 mg tablet 400 mg PO QHS Referrals / Follow Up: Yohannes Nix MD [Med Staff - Consulting, Nephrology] - Within 1 Week Referral Note: Next hemodialysis on is as an outpatient Savnana Sinclair MD [Primary Care Provider, Internal Medicine - [facility]] Disposition Disposition (needs filled in before D/C Order can be placed): Home, Self Care
[2025-06-15] MEDS: Insulin Glargine-YFGN 100 UNIT/ML Pen 36 UNIT SC (10:54)
--- NOTE | 2025-06-15 12:51 | PN.RENAL_ITS ---
Subjective Subjective s/p biopsy Objective Data Objective Data Vital Signs: Vital Signs Temp Pulse Resp BP Pulse Ox O2 Del Method O2 Flow Rate 98.3 F 77 14 142/73 H 97 Room Air 2 06/15/25 08:46 06/15/25 10:20 06/15/25 10:20 06/15/25 10:20 06/15/25 10:20 06/15/25 10:20 06/15/25 10:00 Oxygen Flow Rate (L/min) 2 Oxygen Delivery Method Room Air Weight: 75.2 kg Body Mass Index (BMI) 22.4 Intake & Output: Intake and Output for Last 24 Hours 06/13/25 06/14/25 06/15/25 23:59 23:59 23:59 Intake Total 840 / 840 680 / 680 252 / 252 Output Total 2450 / 3500 3555 / 3555 1625 / 1625 Balance -1610 / -2660 -2875 / -2875 -1373 / -1373 Lab / Micro Data 06/15/25 03:33 06/15/25 03:33 Labs: Laboratory Results - last 24 hr 06/14/25 13:50: Hep Bs Antigen Nonreactive 06/14/25 17:18: POC Glucose 344 H 06/14/25 20:57: POC Glucose 289 H 06/15/25 03:33: WBC 6.5, RBC 2.58 L, Hgb 8.2 L, Hct 25.1 L, MCV 97.3 H, MCH 31.8, MCHC 32.7, RDW Std Deviation 45.3 H, RDW Coeff of Rich 12.8, Plt Count 348, MPV 10.3, Immature Gran % (Auto) 0.500, Neut % (Auto) 59.3, Lymph % (Auto) 19.8, [place] % (Auto) 13.2 H, Eos % (Auto) 6.9 H, Baso % (Auto) 0.3, Absolute Neuts (auto) 3.9, Absolute Lymphs (auto) 1.29, Nucleated RBC % 0, Sodium 147 H, Potassium 4.7, Chloride 111 H, Carbon Dioxide 22.5, Anion Gap 13, BUN 57 H, C reatinine 4.01 H, Estim Creat Clear Calc 17.19 L, Est GFR (MDRD) Non-Af 15 L, BUN/Creatinine Ratio 14.2, Glucose 246 H, Calcium 9.0 06/15/25 10:53: POC Glucose 290 H Micro: Microbiology 06/05/25 12:10 Urine Catheter - Bolaños Urine Culture - Final Culture exhibits no growth. Radiography Diagnostic Testing: Radiology Impression Chest X-Ray 06/14/25 12:32 IMPRESSION: No radiographic evidence of acute cardiopulmonary disease. Interval placement of right-sided IJ catheter. No pneumothorax. Reading Location: [facility]-[address] 06/15/25 09:00 IMPRESSION: Successful CT-guided left inferior pole renal biopsy. Reading Location: [facility]- Rhythm Strip Rhythm Strip: Sinus Rhythm Rate: 85 Ectopy: None Physical Exam Narrative Alert awake oriented x 3 no obvious distress no pallor no icterus no JVD s1s2 no murmurs lungs clear abdomen soft no organomegaly no edema no cyanosis Assessment & Plan Assessment/Plan (1) Acute renal failure: (2) Hyperkalemia, diminished renal excretion: (3) Acute metabolic acidosis: (4) Essential hypertension: (5) Type 2 diabetes mellitus: QUALIFIERS: Diabetes mellitus adjunct faculty for medical terminology insulin use: without adjunct faculty for medical terminology use Diabetes mellitus complication status: with circulatory complication Diabetes mellitus complication detail: with other circulatory complications Q ualified Code(s): E11.59 - Type 2 diabetes mellitus with other circulatory complications PLAN: Plan Assessment/Plan: The patient is a 74-year-old male with past history of CKD stage G3b, type 2 diabetes mellitus, hypertension, CAD status post PCI, PAD, stroke, hypothyroidism, BPH, iron deficiency anemia, and hyperlipidemia. Patient presented to hospital with 2-day history of intractable nausea/vomiting, anorexia and generalized weakness. Patient was found to have acute kidney injury on chronic kidney disease associated with hyperkalemia and severe metabolic acidosis. Nephrology is asked to the patient because of JINA, metabolic acidosis and hyperkalemia. Acute kidney injury on chronic kidney disease stage G3b. Baseline creatinine about 1.4-1.6 as of March 2025. Presented with 2 days of nausea. Found to have renal failure, worsening. Creatinine is up to 10. Initial urine analysis with protein Renal ultrasound without any hydronephrosis Was not particularly hypotensive. Denies any [id number] supplements. He started taking a probiotic due to diarrhea over the last 6 weeks or so. started HD 06/07/25 HD today. see orders Urine output has picked up. Will hold dialysis after today and monitor labs. If renal function gets better, he will not need any further intervention. If renal function does not improve, he will need kidney biopsy. Tentatively tunneled dialysis catheter also. Discussed with family at bedside. Renal diet for now. 06/10/25. urine output is very good. 1.8 L. cr ok. lytes are ok. serologies are negative. possible its all ATN. repeat labs in am. further decision on HD depending on labs tomorrow. dw family bedside 06/11/25. Cr higher. kind of surprising since his urine output is pretty good. HD today. serologies are all negative. will plan for biopsy on saturday. likely TDC on saturday. will dw hospitalist 06/12/25 -volume, electrolytes ok today -plan on renal biopsy on saturday along with TDC -continue with HD MWF for now 06/13 -volume electrolyts stable -still no improvement in solute clearance -plan for HD and renal biopsy tomorrow 06/15. Overall doing well. Status post biopsy this morning. Extremely anxious to go home. Serologies are negative hence ANCA vasculitis unlikely. Kidney biopsy results probably will not be back till at least with electron microscopy. From nephrology standpoint, can be discharged and will arrange follow-up for the biopsy results. Discussed with family. Discussed with hospitalist.
--- NOTE | 2025-06-15 13:56 | DS.PCM_ITS ---
Providers Date of Admission: 06/05/25 Date of Discharge: 06/15/25 Primary Care Physician: Dr. Savanna Sinclair MD Consultations 06/05/25 06:53 Consult: Nephrology Routine Consulting Provider: Yohannes Nix Reason for Consult: JINA, hyper K EMERGENT Consult: No MD Notified: Yes Date Notified: 06/05/25 Time Notified: 05:45 Method of Notification: ED Physician Initiated 06/12/25 12:40 Consult: General Surgery Routine Consulting Provider: Tanika Bear Reason for Consult: Tunneled Alysis catheter on 06/14/2024, JINA on dialysis. EMERGENT Consult: No MD Notified: Yes Date Notified: 06/12/25 Time Notified: 12:41 Method of Notification: Verbal Reason For Visit: INTRACTABLE N/V, HYPERK, JINA, ELEVATED TROP Diagnosis Discharge Diagnosis (1) Acute renal failure: Status: Acute Code(s): N17.9 - Acute kidney failure, unspecified (2) Hyperkalemia, diminished renal excretion: Status: Acute Code(s): E87.5 - Hyperkalemia (3) Acute metabolic acidosis: Status: Acute Code(s): E87.21 - Acute metabolic acidosis (4) Essential hypertension: Status: Chronic Code(s): I10 - Essential (primary) hypertension (5) Type 2 diabetes mellitus: Status: Chronic Code(s): E11.9 - Type 2 diabetes mellitus without complications Qualifiers: Diabetes mellitus technician terminal and repeater insulin use: without technician terminal and repeater use Diabetes mellitus complication status: with circulatory complication Diabetes mellitus complication detail: with other circulatory complications Qualified Code(s): E 11.59 - Type 2 diabetes mellitus with other circulatory complications Plan 74-year-old gentleman was admitted with intractable nausea and vomiting and found to have JINA with hyperkalemia, admitted on the monitored bed. Required further transfer to ICU for acute hyperkalemia and that downgraded to PCU JINA on CKD stage IIIb - Baseline creatinine is between 1.4 and 1.6 as of March 2025 - Urine output seems to be improving -Renal biopsy for Saturday if renal function is not recovering -Effient on hold okay per discussion with Dr. Garrison but will need help for 7 days prior to biopsy - Continue Bolaños and monitor for renal recovery - Serologies were unremarkable - Nephrology following-appreciate input - Will decide on ongoing needs in the next 24 hours 06/11: On admission patient creatinine was 8.74, creatinine 10.7 and then fluctuates, today 7.70. BUN fluctuates between 70-90. Pharmaceutical Sales Representative report reviewed. Patient urine output is good. Hemodialysis today. Serologies are negative. Plan for kidney biopsy on Saturday. Likely tentative discharge on Saturday. 06/12: Patient had about 2500 mL of urine output. No significant fluid removal on dialysis here yesterday but mainly for electrolyte support. Discussed with the training specialist we will surgery. Plan for tunneled dialysis catheter and renal biopsy on Saturday informed by the patient and his . Surgery consulted for tunneled dialysis catheter. 06/13: Good urine output. Bolaños catheter was removed yesterday. Was evaluated by training specialist. Plan for right IJ dialysis catheter removal tomorrow and then tunneled dialysis catheter. They also plan for kidney biopsy tomorrow. Creatinine not improving. Serum sodium 148, chloride 112. Potassium normal. BUN 72 06/14: Right neck IJ temporary dialysis catheter was removed. Patient was frustrated in the morning try to convince because of postponement of kidney biopsy. Patient had tunneled Alysis catheter and undergoing hemodialysis in the afternoon. Hemostasis good. Discussed with IR regarding postponement of kidney biopsy because of time conflict. 06/15: Patient had CT-guided biopsy of left inferior pole. No significant pain tenderness bleeding or hematoma. Dressing is dry. Patient had dialysis yesterday. Next visit scheduled on as an outpatient. Discussed with the training specialist. Kidney biopsy will be discussed when report available as an outpatient by the training specialist Anion gap metabolic acidosis - Much improved and is improving with improved renal function 06/13 anion gap is normal 14. Acute on chronic anemia - Stable - No signs of acute drop at this time - Will continue to monitor - Baseline appears to be between 11 and 13 - 06/11 hemoglobin 8.9 decreased from 12.0. His baseline hemoglobin is about 12 in November 2024. Not on any scheduled anticoagulant. Only on baby aspirin. 06/12: H&H 8.4/24.9%. 06/14 H&H 8.7/26%. Platelet count 348K. 06/15: H&H 8.2/25.1%. Platelet count in normal. Hold prasugrel for 5 days as patient had kidney biopsy today. Continue baby aspirin. CAD/carotid artery stenosis/essential hypertension/hyperlipidemia/history of TIA - No stents within the last 12 months - Effient on hold for renal biopsy --> discussed with cardiology - continue home aspirin - Continue home carvedilol - continue home amlodipine - Lisinopril on hold due to renal dysfunction - Continue isosorbide mononitrate - Follows with vascular and cardiology as an outpatient - BP is overall improved 06/05; blood pressure is good 06/15: Blood pressure is good. Continue holding lisinopril. DM-2 - Hold metformin - Hold glimepiride - SSI 06/12: Blood sugar is variable 117 and then 332. Humalog insulin added. 06/15: Blood sugar acceptable limit. Prescription given for Humalog insulin. Continue Insulin glargine/Toujeo Solostar. Patient has cutaneous glucometer sensor GERD - Continue famotidine Seasonal allergies - Continue home loratadine 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 - Bolaños in place DVT prophylaxis - Continue subcu heparin Anxiety: Buspirone 10 10 mg 3 times daily. CODE STATUS - Full code Discharge medication reconciliation done. Discharge follow-up instructions completed. Discharge process discussed with the patient and all questions were answered to patient's satisfaction. Follow with PCP in 1 to 2 weeks Total time spent, exact 35 minutes on discharge meds reconciliation, examination, coordination of care with nurses and ancillary staff, review of imaging and blood test and discussion with the patient on follow-up instructions. Medications at Discharge Home Medications ascorbic acid (vitamin C) 500 mg tablet 500 mg PO DAILY SUPPLEMENT 07/05/21 aspirin 81 mg tablet,delayed release (Adult Low Dose Aspirin) 81 mg PO DAILY HEART HEALTH 07/05/21 cyanocobalamin (vitamin B-12) 5,000 mcg disintegrating tablet 1,000 mcg PO DAILY SUPPLEMENT 07/05/21 cholecalciferol (vitamin D3) 25 mcg (1,000 unit) tablet 25 mcg PO BID SUPPLEMENT 07/20/21 lancets 33 gauge (OneTouch Delica Plus Lancet) #100 ea 05/04/24 atorvastatin 80 mg tablet 80 mg PO QHS CHOLESTEROL #90 TABLETS 08/10/24 carvedilol 12.5 mg tablet 12.5 mg PO BID HEART #180 tabs 08/10/24 lisinopril 20 mg tablet 20 mg PO DAILY BP #90 TABLETS 08/10/24 Held on 06/15/25. Instructions: Hold for kidney failure. metformin 500 mg tablet 1,000 mg (2 x 500 mg) PO BID BLOOD SUGARS #360 tabs 08/10/24 Held on 06/15/25. Instructions: Hold for kidney failure pen needle, diabetic 32 gauge x 1/4 (Comfort EZ Pen [place]) #100 ea 01/04/25 finasteride 5 mg tablet 5 mg PO QHS PROSTATE 01/27/25 blood sugar diagnostic (OneTouch Verio test strips) #100 ea 02/24/25 glimepiride 4 mg tablet 4 mg PO BID BLOOD SUGARS #90 tabs 02/25/25 Held on 06/15/25. Instructions: Because of kidney failure tamsulosin 0.4 mg capsule 0.4 mg PO QHS PROSTATE #90 caps 04/09/25 loratadine 10 mg tablet 10 mg PO QDAY ALLERGY 04/28/25 prasugrel HCl 10 mg tablet (Effient) 10 mg PO QDAY HEART #90 tabs 05/18/25 Held on 06/15/25. Instructions: Hold for 5 days. amlodipine 5 mg tablet 5 mg PO QHS BP 05/28/25 famotidine 20 mg tablet 20 mg PO QHS GERD 05/28/25 isosorbide mononitrate 30 mg tablet,extended release 24 hr 30 mg PO QHS HEART 05/28/25 buspirone 10 mg tablet 10 mg PO TID 30 days #90 tabs 06/15/25 insulin glargine U-300 conc 300 unit/mL (1.5 mL) subcutaneous pen (Toujeo SoloStar U-300 Insulin) 36 unit (0.12 mL) subcut DAILY BLOOD SUGARS #4.5 mL 06/15/25 insulin lispro 100 unit/mL subcutaneous pen (Humalog KwikPen (U-100) Insulin) 10 unit (0.1 mL) subcut TIDAC 1 month #15 mL 06/15/25 sennosides 8.6 mg tablet 17.2 mg (2 x 8.6 mg) PO BID PRN PRN constipation #0 tabs 06/15/25 Physical Exam Narrative Seen and examined Patient had left kidney biopsy today in the morning. wants to go home. Discussed with the training specialist. Discussed with the patient and regarding discharge instruction and medications. Physical exam General: Alert, Oriented x3, Cooperative HEENT: Atraumatic, PERRLA, EOMI, Normocephalic. Oral: No Gingival or Mucosal Lesions/ Ulcerations Neck: Right IJ dialysis removed. Supple, No JVD, Negative Carotid Bruits Chest wall/Lungs: Right chest wall tunneled dialysis catheter. Air entry diminished in bilateral lung bases. No crepitation/rhonchi Cardiovascular: Regular rate and rhythm, Normal S1,S2, No M/G/R Abdomen: Bowel Sounds Present, Soft, Non Tender, Non-Distended : Clear urine. No dysuria. No renal angle tenderness. No suprapubic tenderness. Extremities: No edema, Capillary Refill Less than 3 Seconds Skin: No bleeding or hematoma right IJ dialysis center. Left kidney biopsy site posteriorly, dressing is good. No hematoma. Musculoskeletal: No Tenderness to Palpation of Joints or Extremities Neurological: Cranial nerves II-XII grossly intact, DTR 2+/4. No acute focal neurological deficit. Psych/Mental Status: Appropriate, normal Weight / BMI Weight Weight: 165 lb 12.602 oz Body Mass Index (BMI) 22.4 ABG / Lab / Microbiology Data 06/15/25 03:33 06/15/25 03:33 Laboratory: Laboratory Results - last 24 hr 06/14/25 13:50: Hep Bs Antigen Nonreactive 06/14/25 17:18: POC Glucose 344 H 06/14/25 20:57: POC Glucose 289 H 06/15/25 03:33: WBC 6.5, RBC 2.58 L, Hgb 8.2 L, Hct 25.1 L, MCV 97.3 H, MCH 31.8, MCHC 32.7, RDW Std Deviation 45.3 H, RDW Coeff of Rich 12.8, Plt Count 348, MPV 10.3, Immature Gran % (Auto) 0.500, Neut % (Auto) 59.3, Lymph % (Auto) 19.8, [place] % (Auto) 13.2 H, Eos % (Auto) 6.9 H, Baso % (Auto) 0.3, Absolute Neuts (auto) 3.9, Absolute Lymphs (auto) 1.29, Nucleated RBC % 0, Sodium 147 H, Potassium 4.7, Chloride 111 H, Carbon Dioxide 22.5, Anion Gap 13, BUN 57 H, C reatinine 4.01 H, Estim Creat Clear Calc 17.19 L, Est GFR (MDRD) Non-Af 15 L, BUN/Creatinine Ratio 14.2, Glucose 246 H, Calcium 9.0 06/15/25 10:53: POC Glucose 290 H Microbiology: Microbiology 06/05/25 12:10 Urine Catheter - Bolaños Urine Culture - Final Culture exhibits no growth. Radiography Diagnostic Testing: Radiology Impression Biopsy CT 06/15/25 09:00 IMPRESSION: Successful CT-guided left inferior pole renal biopsy. Reading Location: [place] [address] D/C Instructions Weight Bearing Status: Weight bearing as tolerated Call your doctor if you observe: Fever of 101 or Higher, Coldness, Increased Pain, Numbness or Tingling, Change in Color, Inability to urinate, Inability to have a bowel movement, Shortness of breath, Dizziness, Fainting spells, Swelling in the ankles, Chest pain, Prolonged hiccupping, Increased palpitations (irregular heartbeat) and Calf discomfort DC O2, CPAP, BIPAP Needs Home O2 Discharge instructions: No When: IN 2 WEEKS Meaningful Use Info Meaningful Use Meaningful Use Diagnoses (Choose all that apply): None applicable Discharge Plan Admission Admit Date/Time: 06/05/25 05:44 Primary Reason for Your Visit: JINA, etiology unclear Attending Provider: Fawad Bates Primary Care Provider: Savanna Sinclair Consulting Providers: Tabby Znuiga; Richi Hope; Yohannes Nix; Candy Vo; Tanika Bear Instructions Patient Instructions: RAD application security developer Instructions for Kidney Biopsy, RAD RN Procedural Sedation Discharge Orders/Prescriptions Prescriptions: New buspirone 10 mg tablet 10 mg PO TID 30 Days Qty: 90 0RF sennosides 8.6 mg tablet 17.2 mg PO BID PRN PRN (Reason: constipation) Qty: 0 0RF Rx Instructions: Kvzh-xkw-szkafdj. 2 tablet twice daily as needed for constipation. insulin lispro [Humalog KwikPen Insulin] 100 unit/mL Insulin Pen 10 unit subcut TIDAC 30 Days Qty: 15 2RF Rx Instructions: Hold if glucose less than 120 mg/dl Continued cyanocobalamin (vitamin B-12) 5,000 mcg tablet,disintegrating 1,000 mcg PO DAILY ascorbic acid (vitamin C) 500 mg tablet 500 mg PO DAILY aspirin [Adult Low Dose Aspirin] 81 mg tablet,delayed release (DR/EC) 81 mg PO DAILY cholecalciferol (vitamin D3) 25 mcg (1,000 unit) tablet 25 mcg PO BID finasteride 5 mg tablet 5 mg PO QHS loratadine 10 mg tablet 10 mg PO QDAY isosorbide mononitrate 30 mg tablet extended release 24 hr 30 mg PO QHS amlodipine 5 mg tablet 5 mg PO QHS Patient Comments: PT TAKES AT BEDTIME famotidine 20 mg tablet 20 mg PO QHS insulin glargine U-300 conc [Toujeo SoloStar U-300 Insulin] 300 unit/mL (1.5 mL) insulin pen 36 unit subcut DAILY Qty: 4.5 5RF Rx Instructions: Hold if glucose less than 90 mg/dl (DME) lancets [OneTouch Delica Plus Lancet] 33 gauge misc See Rx Instructions .Route Qty: 100 0RF Rx Instructions: As directed Twice Daily to monitor blood glucose for DM II carvedilol 12.5 mg tablet 12.5 mg PO BID Qty: 180 3RF atorvastatin 80 mg tablet 80 mg PO QHS Qty: 90 3RF (DME) pen needle, diabetic [Comfort EZ Pen [place]] 32 gauge x 1/4 needle See Rx Instructions .Route Qty: 100 5RF Rx Instructions: once daily to administer insulin.. 6mm pen needle (DME) OneTouch Verio test strips Strip See Rx Instructions .ROUTE .MEDSUPPLY Qty: 100 11RF Rx Instructions: use as directed twice daily t monitor blood glucose for type 2 DM tamsulosin 0.4 mg capsule 0.4 mg PO QHS Qty: 90 3RF Held lisinopril 20 mg tablet 20 mg PO DAILY Qty: 90 3RF Hold Instructions: Hold for kidney failure. metformin 500 mg tablet 1,000 mg PO BID Qty: 360 3RF Hold Instructions: Hold for kidney failure glimepiride 4 mg tablet 4 mg PO BID Qty: 90 3RF Hold Instructions: Because of kidney failure prasugrel HCl [Effient] 10 mg tablet 10 mg PO QDAY Qty: 90 3RF Hold Instructions: Hold for 5 days. Discontinued magnesium glycinate 100 mg tablet 400 mg PO QHS Referrals / Follow Up: Yohannes Nix MD [Med Staff - Consulting, Nephrology] - Within 1 Week Referral Note: Next hemodialysis on is as an outpatient Savanna Sinclair MD [Primary Care Provider, Internal Medicine - [facility]] Disposition Disposition (needs filled in before D/C Order can be placed): Home, Self Care Charges/Coding Visit Charges Inpatient E&M: 37531 Disch Hosp >30min
--- NOTE | 2025-06-15 14:44 | PHA.DC_ITS ---
Pharmacy [facility] Counseling Pharmacy Service has performed discharge medication reconciliation and counseling for this patient. The patient's discharge medication list was reviewed for discrepancies and discrepancies were resolved. The patient was counseled on the following discharge medications and changes in medications for homegoing were reviewed. The Reason for Use, instructions for use, and potential side effects were reviewed for all new medications. The patient's questions regarding all of their medications were answered. 1. Buspirone 10 mg PO TID 2. Insulin lispro 10 units TID 3. Senna 2 tablets PO Daily PRN constipation The patient was able to verbally demonstrate an understanding of their discharge medications. Medications at Discharge Home Medications ascorbic acid (vitamin C) 500 mg tablet 500 mg PO DAILY SUPPLEMENT 07/05/21 aspirin 81 mg tablet,delayed release (Adult Low Dose Aspirin) 81 mg PO DAILY HEART HEALTH 07/05/21 cyanocobalamin (vitamin B-12) 5,000 mcg disintegrating tablet 1,000 mcg PO DAILY SUPPLEMENT 07/05/21 cholecalciferol (vitamin D3) 25 mcg (1,000 unit) tablet 25 mcg PO BID SUPPLEMENT 07/20/21 lancets 33 gauge (Linkable NetworksTouch Delica Plus Lancet) #100 ea 05/04/24 atorvastatin 80 mg tablet 80 mg PO QHS CHOLESTEROL #90 TABLETS 08/10/24 carvedilol 12.5 mg tablet 12.5 mg PO BID HEART #180 tabs 08/10/24 lisinopril 20 mg tablet 20 mg PO DAILY BP #90 TABLETS 08/10/24 Held on 06/15/25. Instructions: Hold for kidney failure. metformin 500 mg tablet 1,000 mg (2 x 500 mg) PO BID BLOOD SUGARS #360 tabs 08/10/24 Held on 06/15/25. Instructions: Hold for kidney failure pen needle, diabetic 32 gauge x 1/4 (Comfort EZ Pen [place]) #100 ea 01/04/25 finasteride 5 mg tablet 5 mg PO QHS PROSTATE 01/27/25 blood sugar diagnostic (Linkable NetworksTouch Verio test strips) #100 ea 02/24/25 glimepiride 4 mg tablet 4 mg PO BID BLOOD SUGARS #90 tabs 02/25/25 Held on 06/15/25. Instructions: Because of kidney failure tamsulosin 0.4 mg capsule 0.4 mg PO QHS PROSTATE #90 caps 04/09/25 loratadine 10 mg tablet 10 mg PO QDAY ALLERGY 04/28/25 prasugrel HCl 10 mg tablet (Effient) 10 mg PO QDAY HEART #90 tabs 05/18/25 Held on 06/15/25. Instructions: Hold for 5 days. amlodipine 5 mg tablet 5 mg PO QHS BP 05/28/25 famotidine 20 mg tablet 20 mg PO QHS GERD 05/28/25 isosorbide mononitrate 30 mg tablet,extended release 24 hr 30 mg PO QHS HEART 05/28/25 buspirone 10 mg tablet 10 mg PO TID 30 days #90 tabs 06/15/25 insulin glargine U-300 conc 300 unit/mL (1.5 mL) subcutaneous pen (Toujeo SoloStar U-300 Insulin) 36 unit (0.12 mL) subcut DAILY BLOOD SUGARS #4.5 mL 06/15/25 insulin lispro 100 unit/mL subcutaneous pen (Humalog KwikPen (U-100) Insulin) 10 unit (0.1 mL) subcut TIDAC 1 month #15 mL 06/15/25 sennosides 8.6 mg tablet 17.2 mg (2 x 8.6 mg) PO BID PRN PRN constipation #0 tabs 06/15/25
--- NOTE | 2025-06-15 15:09 | CASEMGMT ---
DONNIE MCKEON reviewed DC orders. Called [facility] to check on medication rodríguez. Per Cooper, Pt insurance would like a script for Novolog instead of Humalog. DONNIE MCKEON notified Hospitalist to have order change. DONNIE MCKEON into pt room to notify pt, they deny further needs at this time and stated how grateful they were for the care they received.
== END 2025-06-15 16:18 | disposition home or self-care (01) | DRG 674 ==
LOC: ED 05:56 → PCU 06:08 → ICU 06-07 06:45 → PCU 06-11 07:25 → ICU 06-11 07:25
PROVIDERS: Anesthesiology; Internal Medicine; Internal Medicine Nephrology; Nurse Practitioner Adult Health; Surgery; Admitting Provider Family Medicine; Emergency Provider Emergency Medicine; PCP Internal Medicine; Visit Provider Internal Medicine
PROC: 0JH63XZ Insertion of Tunneled Vascular Access Device into Chest Subcutaneous Tissue and Fascia, Percutaneous Approach (ICD-10-PCS; principal; 2025-06-14 10:45)
DX: N17.0 Acute kidney failure with tubular necrosis (principal); I24.89 Other forms of acute ischemic heart disease; E87.21 Acute metabolic acidosis; E87.0 Hyperosmolality and hypernatremia; N13.8 Other obstructive and reflux uropathy; E11.22 Type 2 diabetes mellitus with diabetic chronic kidney disease; D64.9 Anemia, unspecified; I69.320 Aphasia following cerebral infarction; Z99.2 Dependence on renal dialysis; I12.9 Hypertensive chronic kidney disease with stage 1 through stage 4 chronic kidney disease, or unspecified chronic kidney disease; E03.9 Hypothyroidism, unspecified; N18.32 Chronic kidney disease, stage 3b; I65.29 Occlusion and stenosis of unspecified carotid artery; E86.9 Volume depletion, unspecified; K21.9 Gastro-esophageal reflux disease without esophagitis; Z79.4 Long term (current) use of insulin; I25.10 Atherosclerotic heart disease of native coronary artery without angina pectoris; E78.00 Pure hypercholesterolemia, unspecified; E11.649 Type 2 diabetes mellitus with hypoglycemia without coma; J30.2 Other seasonal allergic rhinitis; E11.59 Type 2 diabetes mellitus with other circulatory complications; K52.9 Noninfective gastroenteritis and colitis, unspecified; Z95.5 Presence of coronary angioplasty implant and graft; Z87.891 Personal history of nicotine dependence; Z79.84 Long term (current) use of oral hypoglycemic drugs; Z82.49 Family history of ischemic heart disease and other diseases of the circulatory system; Z83.3 Family history of diabetes mellitus; Z79.899 Other long term (current) drug therapy; Z79.02 Long term (current) use of antithrombotics/antiplatelets; N40.1 Benign prostatic hyperplasia with lower urinary tract symptoms; Z79.01 Long term (current) use of anticoagulants; Z79.82 Long term (current) use of aspirin
CPT/HCPCS: 36415; 71045; 74022; 76000; 76770; 77012; 80048; 80053; 80061; 81001; 82550; 82570; 82784; 82803; 82962; 83520; 83735; 83930; 84100; 84165; 84300; 84484; 85025; 85610; 85730; 86037; 86160; 86225; 86334; 87086; 87340; 90937; 93005; 93308; 94640; 94668; 94762; 97116; 97162; 97166; 97530; 97535; 97802; 97803; 99156; 99157; 99283; C1750; Q9957; A4216; C1752; C8924; G0257; J0612; J1938; J2405

== ENCOUNTER → 2025-06-21 | Outpatient (CLI) | payer MEDICARE, OTHER, SELFPAY ==
[2025-06-21 09:21] LABS: Hematocrit 26.3 % (40-54); Hemoglobin 9.2 g/dL (13.0-16.5); Immature Granulocytes Count 0.040 X10^3/uL (0.0-0.0); Mean Corp Hgb Conc 35.0 g/dL (32-36); Mean Corpuscular Volume 92.3 fL (80-94); Mean Platelet Vol. 9.5 fl (6.2-12.0); NRBC Flagged by Analyzer 0 % (0-5); Platelet Count 334 K/mm3 (150-450); RBC Distribution Width CV 12.9 % (11.6-14.6); RBC Distribution Width SD 43.2 fl (35.1-43.9); Red Blood Count 2.85 M/mm3 (4.6-6.2); White Blood Count 7.1 K/mm3 (4.4-11.0)
[2025-06-21 10:08] LABS: Anion Gap 15 (5-15); BUN 42 mg/dL (4-19); BUN/Creat Ratio 13.6 RATIO (10-20); Calcium,Total 9.5 mg/dL (7.6-11.0); Carbon Dioxide 22.3 mmol/L (21.0-32.0); Chloride 99 mmol/L (98-108); Glucose 643 mg/dL (70-99); Potassium 4.6 mmol/L (3.3-5.1)
== END | disposition home or self-care (01) ==
LOC: LAB 09:04
PROVIDERS: PCP Internal Medicine; Referring Provider Internal Medicine; Visit Provider Internal Medicine
DX: N18.31 Chronic kidney disease, stage 3a (principal); N17.9 Acute kidney failure, unspecified; I25.10 Atherosclerotic heart disease of native coronary artery without angina pectoris
CPT/HCPCS: 36415; 80048; 85025

== ENCOUNTER 2025-07-07 10:54 | Outpatient (RCR) | payer MEDICARE, OTHER, SELFPAY | END 2025-07-16 23:59 | LOC: NS 10:54 | PROVIDERS: PCP Internal Medicine; Referring Provider Internal Medicine; Visit Provider Internal Medicine | DX: Z71.3 Dietary counseling and surveillance (principal); E11.59 Type 2 diabetes mellitus with other circulatory complications | CPT/HCPCS: 97802 ==

== ENCOUNTER → 2025-07-12 | Outpatient (CLI) | payer MEDICARE, OTHER, SELFPAY ==
[2025-07-12 14:55] LABS: Anion Gap 11 (5-15); BUN 54 mg/dL (4-19); BUN/Creat Ratio 22.3 RATIO (10-20); Calcium,Total 10.0 mg/dL (7.6-11.0); Carbon Dioxide 23.0 mmol/L (21.0-32.0); Chloride 106 mmol/L (98-108); Glucose 269 mg/dL (70-99); Potassium 5.7 mmol/L (3.3-5.1)
== END | disposition home or self-care (01) ==
LOC: LAB 12:30
PROVIDERS: PCP Internal Medicine; Visit Provider Internal Medicine Nephrology
DX: N17.9 Acute kidney failure, unspecified (principal)
CPT/HCPCS: 36415; 80048

== ENCOUNTER 2025-08-02 14:43 | Outpatient (RCR) | payer MEDICARE, OTHER, SELFPAY | END 2025-08-15 23:59 | LOC: NS 14:43 | PROVIDERS: PCP Internal Medicine; Referring Provider Internal Medicine; Visit Provider Internal Medicine | DX: Z71.3 Dietary counseling and surveillance (principal); E11.59 Type 2 diabetes mellitus with other circulatory complications | CPT/HCPCS: 97803 ==

== ENCOUNTER → 2025-08-16 | Outpatient (CLI) | payer MEDICARE, OTHER, SELFPAY ==
--- OUTSIDE RECORDS SUMMARY | 2025-08-16 05:50 | XMS RPT_ITS | CCD ---
Author Organization [facility] Care Team Providers Care Security Sales Consultant Name Role Phone Eloy Martinez MD Unavailable Unavailable [facility] Br[facility]yda Sinclair Primary Care Provider Dr. Briseyda Sinclair Attending Provider [phone] Dr. Briseyda Sinclair Referring Provider 1(330) Priyanka Haines Attending Provider Unavailable Dr. Tatiana Strauss Emergency Provider [phone] Renae Rubalcava Admit Provider Dr. Renae Rubalcava Attending Provider [phone] Renae Rubalcava Other Provider Dr. Briseyda Sinclair Primary Care Provider Dr. Briseyda Sinclair Attending Provider 1(330) Dr. Briseyda Sinclair Referring Provider 1(330) Dr. Manuel Gilman Attending Provider Dr. Briseyda Sinclair Primary Care Provider Dr. Briseyda Sinclair Attending Provider 1(330) Dr. Briseyda Sinclair Referring Provider 1(330) Eligio Martino Attending Provider Unavailable Dr. David Lui Attending Provider 1(330) Dr. David Lui Referring Provider [phone] Dr. David Lui Other Provider [phone] Dr. Briseyda Sinclair Primary Care Provider Dr. Briseyda Sinclair Referring Provider [phone] Dr. Briseyda Sinclair Attending Provider [phone] Dr. David Lui Attending Provider Dr. Briseyda Sinclair Primary Care Provider Dr. Briseyda Sinclair Attending Provider [phone] Dr. Briseyda Sinclair Primary Care Provider Cebul, Dr. Manuel Hall Attending Provider Cepaul, Dr. Manuel Hall Referring Provider Dr. Briseyda Sinclair Referring Provider Dr. Briseyda Sinclair Attending Provider Dr. Mc Saleh Attending Provider Dr. Briseyda Sinclair Primary Care Provider Dr. Briseyda Sinclair Referring Provider Dr. Mc Saleh Attending Provider ARLEEN Gonsalez Attending Provider Dr. Briseyda Sinclair Primary Care Provider Dr. Briseyda Sinclair Referring Provider ARLEEN Chang Attending Provider Dr. Briseyda Sinclair Attending Provider Cepaul, Dr. Manuel Hall Attending Provider Dr. Briseyda Sinclair Primary Care Provider Dr. Briseyda Sinclair Referring Provider ARLEEN Gonsalez Attending Provider ARLEEN Chang Attending Provider Dr. Briseyda Sinclair Attending Provider Cepaul, Dr. Manuel Hall Attending Provider Mukul, Dr. Manuel Hall Other Provider Dr. Briseyda Sinclair MD Primary Care Provider Dottie LORENZO, Dr. Corrales [...] Killian LORENZO, Dr. Dony Cerna Attending Provider Killian LORENZO, Dr. Dony Cerna Referring Provider Dottie LORENZO, Dr. Corrales Primary Care Provider Oleg LORENZO, Dr. Padron Attending Provider Dottie LORENZO, Dr. Corrales Referring Provider Dottie LORENZO, Dr. Corrales Primary Care Provider La ATOMIC PROCESS ENGINEER-C, Brenda Attending Provider Gonzalo ATOMIC PROCESS ENGINEER-C, Saira Attending Provider Briseyda Sinclair Primary Care Provider Dottie LORENZO, Dr. Corrales Primary Care Provider Dottie LORENZO, Dr. Corrales Attending Provider Dottie LORENZO, Dr. Corrales Referring Provider Gonzalo ATOMIC PROCESS ENGINEER-C, Saira Referring Provider Rajiv MEDRANO, Dr. Castellon Emergency Provider VENIZELOS, SIMBA Attending Unavailable DOTTIE, BRISEYDA Primary Care Unavailable VENIZELOS, SIMBA Attending Unavailable VENIZELOS, SIMBA Referring Unavailable DOTTIE, BRISEYDA Primary Care Unavailable VENIZELOS, SIMBA Attending Unavailable VENIZELOS, SIMBA Referring Unavailable DOTTIE, BRISEYDA Primary Care Unavailable Bladimir LORENZO, Dr. Cuello Attending Provider Rajiv MEDRANO, Dr. Castellon Attending Provider Dottie LORENZO, Dr. Corrales Primary Care Provider Dottie LORENZO, Dr. Corrales Referring Provider Dottie LORENZO, Dr. Corrales Attending Provider Dottie LORENZO, Dr. Corrales Primary Care Physician Gonzalo ATOMIC PROCESS ENGINEER-C, Saira Attending Physician Gonzalo ATOMIC PROCESS ENGINEER-C, Saira Referring Provider Bladimir LORENZO, Dr. Cuello Attending Physician Rajiv MEDRANO, Dr. Castellon Attending Physician Dr. Ravinder Vance DO Emergency Department Physic isaiah Dottie LORENZO, Dr. Corrales Referring Provider Dottie LORENZO, Dr. Corrales Attending Physician Debbi LORENZO, Dr. Damico Attending Physician Antwon LORENZO, Dr. Lozano Emergency Department Phys ician Efrain LORENZO, Dr. Tabby Hernandez Admitting Physician Efrain LORENZO, Dr. Tabby Hernandez Nurse Practitioner Herminia LORENZO, Dr. Stoddard Nurse Practitioner Derba Santiago MD, Dr. Sheffield Nurse Practitioner Paulo LORENZO, Dr. Celestin Attending Physician Tavo MEDRANO, Dr. Gupta Nurse Practitioner Chema LORENZO, Dr. Sagastume Nurse Practitioner Pop LORENZO, Dr. Murphy Attending Physician Herminia LORENZO, Dr. Stoddard Attending Physician Unavail able Tavo MEDRANO, Dr. Gupta Attending Physician Igor MEDRANO, Dr. Boyer Attending Physician Paulo LORENZO, Dr. Celestin Nurse Practitioner Chema LORENZO, Dr. Sagastume Attending Physician Pamela Antunez PA-C Attending Physician Dottie LORENZO, Dr. Corrales Primary Care Physician Saira Mcwilliams Attending Physician Dr. Cuate Garrison MD Attending Physician Dr. Richi Hope MD Referring Provider Debra Bates MD, Dr. Celestin Referring Provider Joseph MEDRANO, Dr. Alfaro Attending Physician [phone] Dr. Briseyda Sinclair MD Primary Care Physician [phone] Dr. Ravinder Vance DO Attending Physician Dr. Ravinder Vance DO Emergency Department Physic siaiah Dr. Briseyda Sinclair MD Referring Provider Saira Mcwilliams Attending Physician Dr. Cuate Garrison MD Attending Physician Dr. Briseyda Sinclair MD Attending Physician Debbi LORENZO, Dr. Damico Attending Physician Antwon LORENZO, Dr. Lozano Emergency Department Phys ician Efrain LORENZO, Dr. Tabby Hernandez Admitting Physician Efrain LORENZO, Dr. Tabby Hernandez Nurse Practitioner Herminia LORENZO, Dr. Stoddard Nurse Practitioner Unavaila sage Santiago MD, Dr. Sheffield Nurse Practitioner Paulo LORENZO, Dr. Celestin Attending Physician Tavo MEDRANO, Dr. Gupta Nurse Practitioner Chema LORENZO, Dr. Sagastume Nurse Practitioner Pop LORENZO, Dr. Murphy Attending Physician Herminia LORENZO, Dr. Stoddard Attending Physician Unavail able Tavo MEDRANO, Dr. Gupta Attending Physician Herminia LORENZO, Dr. Stoddard Referring Provider Unavaila sage Costa DO, Dr. Boyer Attending Physician Pauol LORENZO, Dr. Celestin Nurse Practitioner Paulo LORENZO, Dr. Celestin Referring Provider Chema LORENZO, Dr. Sagastume Attending Physician [phone] Joseph MEDRANO, Dr. Alfaro Attending Physician Koram, Renae Jamee Attending Unavailable Bhupinder Kenney Admitting Unavailable Dottie, Briseyda Primary Care Unavailable Bhupinder Kenney Consulting Unavailable Mookie Werner Attending Unavailable Dottie, Briseyda Primary Care Unavailable Dottie, Briseyda Referring Unavailable Dottie, Briseyda Primary Care Unavailable Dottie, Briseyda Attending Unavailable Cuate Garrison Attending Unavailable Saira Sánchez Referring Unavailable Dottie, Briseyda Primary Care Unavailable Koram, Renae Jamee Attending Unavailable Koram, Renae Jamee Referring Unavailable Dottie, Briseyda Primary Care Unavailable Dottie, Briseyda Primary Care Unavailable Dottie, Briseyda Referring Unavailable Cuate Garrison Attending Unavailable Briseyda Sinclair Attending Unavailable Dottie, Briseyda Primary Care Unavailable Dottie, Briseyda Primary Care Unavailable White, Tabby L Consulting Unavailable Paulo, Fawad Referring Unavailable Robotham, Tanika Attending Unavailable Efrain, Tabby L Admitting Unavailable Richi Hope Consulting Unavailable Yohannes Santiago Consulting Unavailable Candy Vo Consulting Unavailable Robotham, Tanika Consulting Unavailable Paulo, Fawad Consulting Unavailable Paulo, Fawad Attending Unavailable Dottie, Briseyda Primary Care Unavailable Dony Daily Referring Unavailable Dony Daily Attending Unavailable Vito Dejesus Attending Unavailable Viot Dejesus Referring Unavailable Dottie, Briseyda Primary Care Unavailable Dottie, Briseyda Attending Unavailable Dottie, Briseyda Primary Care Unavailable Dottie, Briseyda Referring Unavailable Bordner, Saira Referring Unavailable Dottie, Brisyeda Primary Care Unavailable BordnerSaira Attending Unavailable Dottie, Briseyda Primary Care Unavailable Dottie, Briseyda Referring Unavailable Dottie, Briseyda Attending Unavailable Debbi, Mookie Referring Unavailable [place], Mookie Attending Unavailable Dottie, Briseyda Primary Care Unavailable Dottie, Briseyda Primary Care Unavailable Dottie, Briseyda Attending Unavailable Dottie, Briseyda Referring Unavailable Dottie, Briseyda Attending Unavailable Dottie, Briseyda Primary Care Unavailable Dottie, Briseyda Referring Unavailable Renae Rubalcava Attending Unavailable Bhupinder Kenney Admitting Unavailable Bhupinder Kenney Consulting Unavailable Dottie, Briseyda Primary Care Unavailable Koram, Renae Jamee Consulting Unavailable Richi Hope Attending Unavailable Dottie, Briseyda Attending Unavailable Dottie, Briseyda Primary Care Unavailable Dottie, Briseyda Primary Care Unavailable Jeffrey Lord Attending Unavailable [place], Mookie Admitting Unavailable Debbi, Mookie Attending Unavailable Dottie, Briseyda Primary Care Unavailable Dottie, Briseyda Primary Care Unavailable Dottie, Briseyda Attending Unavailable Vito Dejesus Attending Unavailable Dottie, Briseyda Primary Care Unavailable Dottie, Briseyda Referring Unavailable Dottie, Briseyda Primary Care Unavailable Brenda Tovar Attending Unavailable Dottie, Briseyda Referring Unavailable BordnerSaira Attending Unavailable Dottie, Briseyda Primary Care Unavailable Dottie, Briseyda Referring Unavailable BordnerSaira Attending Unavailable Dottie, Briseyda Primary Care Unavailable Dottie, Briseyda Referring Unavailable Robotham, Tanika Attending Unavailable Dottie, Briseyda Primary Care Unavailable Dottie, Briseyda Referring Unavailable [place] Attending Unavailable Dottie, Briseyda Primary Care Unavailable Dottie, Briseyda Referring Unavailable Cuate Garrison Attending Unavailable Dottie, Briseyda Primary Care Unavailable Dottie, Briseyda Referring Unavailable Dottie, Briseyda Attending Unavailable Dottie, Briseyda Primary Care Unavailable Dottie, Briseyda Attending Unavailable Dottie, Briseyda Primary Care Unavailable Dottie, Briseyda Primary Care Unavailable Dottie, Briseyda Attending Unavailable [place], Mookie Attending Unavailable Dottie, Briseyda Primary Care Unavailable Dottie, Briseyda Referring Unavailable Dottie, Briseyda Attending Unavailable Dottie, Briseyda Primary Care Unavailable Dottie, Briseyda Primary Care Unavailable Jeffrey Lord Attending Unavailable Richi Hope Referring Unavailable Merlin Costa Attending Unavailable Candy Vo Attending Unavailable Dottie, Briseyda Primary Care Unavailable Dottie, Briseyda Referring Unavailable Vito Dejesus Attending Unavailable Dottie, Briseyda Attending Unavailable Dottie, Briseyda Primary Care Unavailable Dottie, Briseyda Referring Unavailable Dottie, Briseyda Primary Care Unavailable Angelina Ruiz Attending Unavailable Dottie, Briseyda Attending Unavailable Dottie, Briseyda Primary Care Unavailable Dottie, Briseyda Referring Unavailable Dottie, Briseyda Primary Care Unavailable Ravinder Vance Attending Unavailable Dottie, Briseyda Attending Unavailable Dottie, Briseyda Primary Care Unavailable Dottie, Briseyda Referring Unavailable Dottie, Briseyda Attending Unavailable Dottie, Briseyda Primary Care Unavailable Dottie, Briseyda Referring Unavailable JoseftsonisKurtisBhupinder F Attending Unavailable Kotsonis, Bhupinder F Admitting Unavailable Kotsonis, Bhupinder F Consulting Unavailable Dottie, Briseyda Primary Care Unavailable Dottie, Briseyda Primary Care Unavailable Jeffrey Lord Attending Unavailable Dottie, Briesyda Attending Unavailable Dottie, Briseyda Primary Care Unavailable Dottie, Briseyda Referring Unavailable Dottie, Briseyda Primary Care Unavailable Fawad Bates Attending Unavailable Tabby Zuniga Consulting Unavailable Tabby Zuniga Admitting Unavailable Richi Hope Consulting Unavailable Yohannes Santiago Consulting Unavailable Candy Vo Consulting Unavailable Waqarham, Tanika Consulting Unavailable Allergies Allergy Classification Reported Allergen(s) Allergy Type Date of Onset Reaction(s) Facility (12 sources) Ticagrelor Drug Allergy 04-12-2025 Other [facility] (1 source) Ticagrelor Drug Allergy 07-21-2025 [facility] Repository Medications Current Medications Medication Drug Class(es) Dates Sig (Normalized) Sig (Original) ascorbic acid 500 mg oral tablet (20 sources) Vitamin C Start: 07-05-2021 aspirin 81 mg delayed release oral tablet (20 sources) Platelet Aggregation Inhibitor, Nonsteroidal Anti-inflammatory Drug Start: 07-05-2021 atorvastatin 80 mg oral tablet (20 sources) HMG-CoA Reductase Inhibitor Start: 02-27-2025 atorvastatin (Lipitor) 80 MG tablet 02/27/2025 Active Start: 06-01-2022 End: 05-17-2023 Atorvastatin Discontinued 0 .ROUTE .COMPLEX June 01, 2022 2:15pm May 17, 2023 4:31pm TAKE 1 TABLET AT BEDTIME Start: 07-05-2021 End: 08-10-2024 Start: 07-05-2021 End: 08-10-2024 take 1 tablet [...] 13, 2023 12:00am Start: 01-02-2022 End: 01-10-2022 busPIRone hydrochloride 10 m g oral tablet (7 sources) Start: 06-15-2025 Start: 06-15-2025 carvedilol 12.5 mg oral tablet (20 sources) alpha-Adrenergic Evan, beta-Adrenergic Evan Start: 07-21-2025 Start: 02-28-2024 End: 07-21-2025 Start: 06-01-2022 End: 02-28-2024 Start: 08-02-2021 End: 06-01-2022 cholecalciferol 0.025 mg ora l tablet (20 sources) Vitamin D Start: 07-05-2021 End: 07-20-2021 Start: 07-05-2021 End: 07-20-2021 take 1 tablet by mouth once daily Cholecalciferol (Vitamin D3) 25 mcg (1,000 unit) tablet Discontinued 25 ug PO DAILY July 05, 2021 12:00am July 20, 2021 10:51am ferrous sulfate 325 mg oral tablet (1 source) Start: 07-21-2025 Start: 07-21-2025 finasteride 5 mg oral tablet (19 sources) 5-alpha Reductase Inhibitor Start: 01-27-2025 3 ml insulin aspart, human 1 00 unt/ml pen injector (12 sources) Insulin Analog Start: 07-22-2025 Start: 07-12-2025 End: 07-22-2025 Start: 07-12-2025 Start: 07-12-2025 Start: 07-12-2025 Start: 06-15-2025 End: 07-12-2025 Start: 06-15-2025 1.5 ml insulin glargine 300 unt/ml pen injector (20 sources) Insulin Analog Start: 06-15-2025 Start: 06-15-2025 Start: 11-29-2024 Toujeo SoloSta r 300 UNIT/ML injection 11/29/2024 Active Start: 09-25-2021 End: 06-15-2025 Start: 09-25-2021 End: 12-10-2023 Insulin Glargine U-300 Conc (Toujeo Solostar U-300 Insulin) 300 unit/mL (1.5 mL) insulin pen Discontinued 36 U SC DAILY 4.5 5 October 28, 2023 2:03pm December 10, 2023 10:57am Start: 07-05-2021 End: 09-25-2021 Start: 07-05-2021 End: 09-25-2021 Insulin Glargine U-300 [...] Active 36 U SC DAILY 4.5 5 August 18, 2024 3:02pm BLOOD SUGARS Start: [...] oral tablet (20 sources) Nitrate Vasodilator Start: 07-21-2025 Start: 02-27-2025 isosorbide mon onitrate ER (Imdur) 30 MG 24 hr tablet 02/27/2025 Active Start: 06-01-2022 End: 07-21-2025 loratadine 10 mg oral tablet (20 sources) Start: 04-28-2025 Start: 07-05-2021 End: 08-20-2023 nitroglycerin 0.4 mg sublingual tablet (20 sources) Nitrate Vasodilator Start: 03-16-2024 nitroglyce rin (Nitrostat) 0.[address] 1 TABLET UNDER TONGUE FOR CHEST PAIN. CALL 911 IF NO IMPROVEMENT AFTER 5 MIN. REPEAT DOSE TWICE IF NEEDED 03/16/2024 Active Start: 03-16-2024 End: 04-28-2025 Start: 03-16-2024 End: 04-28-2025 Nitroglycerin 0.4 mg tablet, sublingual Discontinued 0.4 mg SL every 5 to 15 minutes as needed for chest pain 08 12March 16, 2024 12:00am April 28, 2025 2:30pm do not exceed 3 doses per episode sennosides, longterm 8.6 mg oral tablet (7 sources) Start: 06-15-2025 Start: 06-15-2025 vitamin b12 5 mg disintegrat ing oral tablet (20 sources) Vitamin B12 Start: 07-05-2021 Start: 07-05-2021 Cyanocobalamin (Vitamin B-12) 5,000 mcg tablet,disintegrating Active 1000 ug PO DAILY July 05, 2021 12:00am SUPPLEMENT Start: 07-05-2021 take 1000 ug by mout h once daily Cyanocobalamin (Vitamin B-12) Active 100 0 MCG PO DAILY July 05, 2021 12:00am (20 sources) Start: 07-09-2025 Start: 07-09-2025 End: 07-09-2025 Start: 07-09-2025 End: 07-09-2025 Start: 06-28-2025 End: 07-09-2025 Start: 06-16-2025 Start: 02-24-2025 Start: 01-04-2025 End: 06-28-2025 Start: 01-04-2025 Start: 05-04-2024 Start: 05-04-2024 End: 02-24-2025 Start: 05-04-2024 End: 05-04-2024 Start: 10-23-2023 End: 01-04-2025 Start: 10-23-2023 End: 10-23-2023 Start: 10-07-2023 End: 10-23-2023 Start: 08-16-2023 End: 10-07-2023 Start: 08-12-2023 End: 08-16-2023 Start: 07-24-2023 End: 08-12-2023 Start: 04-03-2023 End: 05-04-2024 Start: 07-24-2022 End: 07-24-2023 Start: 07-23-2022 End: 07-24-2022 Start: 02-14-2022 End: 04-03-2023 Start: 02-13-2022 End: 02-14-2022 Start: 01-02-2022 End: 01-04-2022 Start: 09-22-2021 End: 07-23-2022 Start: 09-20-2021 End: 09-22-2021 Start: 09-20-2021 End: 09-20-2021 Completed/Discontinued Medications Medication Drug Class(es) Dates Sig [...] 02, 2022 7:01am Start: 01-02-2022 End: 01-10-2022 Start: 01-02-2022 End: 01-10-2022 Albuterol Sulfate 90 mcg/act uation Hfa Aerosol Inhaler Discontinued 2 NMA INHALATION EVERY 6 HOURS as needed for Shortness Of Breath January 02, 2022 12:00am January 10, 2022 11:24am Start: 01-02-2022 End: 01-10-2022 take 1 puff(s) by inhalation every six hours Albuterol Sulfate Discontinued 2 PUFF INHALATION EVERY 6 HOURS January 02, 2022 12:00am January 10, 2022 11:24am amLODIPine 5 mg oral tablet (20 sources) Dihydropyridine Calcium Channel Evan Start: 07-05-2021 End: 05-28-2025 amoxicillin 875 mg / clavulanate 125 mg oral tablet (20 sources) Penicillin-class Antibacterial Start: 08-29-2023 End: 09-08-2023 Start: 08-29-2023 End: 09-08-2023 Amoxicillin-Pot Clavulanate 875-125 mg tablet Discontinued 1 {tbl} PO Q12H 20 10 August 29, 2023 1:00am September 07, 2023 1:00am September 08, 2023 1:04am Acute sinusitis, unspecified Start: 08-29-2023 End: 09-08-2023 take 1 tablet by mouth every twelve hours Amoxicillin-Pot Clavulanate Discontinued 1 TABLET PO Q12H 05 07August 29, 2023 1:00am September 08, 2023 1:04am azithromycin 250 mg oral tab let (20 sources) Macrolide Antimicrobial Start: 07-19-2024 End: 08-10-2024 Start: 12-20-2022 End: 03-07-2023 Start: 01-02-2022 End: 01-04-2022 take 1 capsule by mouth once daily Azithromycin 250 mg Capsule Discontinued 250 mg PO DAILY January 02, 2022 12:00am January 04, 2022 10:35am cefdinir 300 mg oral capsule (20 sources) Cephalosporin Antibacterial Start: 01-02-2022 End: 01-04-2022 clopidogrel 75 mg oral table t (20 sources) P2Y12 Platelet Inhibitor Start: 04-28-2025 End: 05-12-2025 Start: 07-05-2021 End: 03-29-2025 dexamethasone 6 mg oral tabl et (20 sources) Corticosteroid Start: 08-13-2023 End: 08-20-2023 famotidine 20 mg oral tablet (20 sources) Histamine-2 Receptor Antagonist Start: 12-03-2023 End: 05-28-2025 glimepiride 4 mg oral tablet (20 sources) Sulfonylurea Start: 07-05-2021 End: 02-25-2025 lisinopril 20 mg oral tablet (20 sources) Angiotensin Converting Enzyme Inhibitor Start: 07-05-2021 End: 08-10-2024 magnesium glycinate 100 mg o ral tablet (16 sources) Start: 05-12-2025 End: 06-15-2025 magnesium oxide 250 mg oral tablet (20 sources) Start: 07-20-2021 End: 09-24-2022 Start: 07-05-2021 End: 07-20-2021 metFORMIN hydrochloride 500 mg oral tablet (20 sources) Biguanide Start: 07-05-2021 End: 08-10-2024 Start: 07-05-2021 End: 04-24-2023 take 1000 mg by mouth twice daily Metformin Discontinued 1000 MG PO TWICE A DAY 180 February 18, 2023 11:15am April 24, 2023 1:21pm prasugrel 10 mg oral tablet (20 sources) P2Y12 Platelet Inhibitor Start: 04-28-2025 End: 05-18-2025 predniSONE 20 mg oral tablet (20 sources) Start: 01-02-2022 End: 01-04-2022 Start: 01-02-2022 End: 01-04-2022 take 40 mg by mouth once daily Prednisone Discontinued 40 MG PO DAILY January 02, 2022 12:00am January 04, 2022 10:36am x5 days tamsulosin hydrochloride 0.4 mg oral capsule (20 sources) alpha-Adrenergic Evan Start: 12-31-2024 End: 04-09-2025 ticagrelor 90 mg oral tablet (17 sources) Start: 03-24-2025 End: 03-25-2026 Problems Active Problems Problem Classification Problem Date Documented Da te Episodic/Chronic Acute and unspecified renal failure (15 sources) Uremia; Translations: [Unspecified kidney failure] Onset: 07-15-2025 06-05-2025 Chronic Acute and unspecified renal failure (20 sources) Acute renal failure syndrome; Translations: [Acute kidney failure, unspecified] Onset: 07-15-2025 06-05-2025 Episodic Acute cerebrovascular disease (20 sources) Multiple lacunar infarcts; Translations: [Other cerebral infarction due to occlusion or stenosis of small artery] Onset: 02-11-2025 Chronic Cardiac dysrhythmias (1 source) Palpitations; Translations: [Palpitations] Onset: 05-13-2025 Episodic Chronic kidney disease (20 sources) Chronic kidney disease stage 3; Translations: [Stage 3 chronic kidney disease] Onset: 07-21-2025 Chronic Comment on above: The patient recent b lood work October 2023 shows a creatinine clearance now improved to 67. 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 Deficiency and other anemia (20 sources) Anemia; Translations: [Anemia, unspecified] 11-22-2023 Episodic Deficiency and other anemia (20 sources) Hemoglobin low; Translations: [Anemia, unspecified] 11-06-2023 Episodic Deficiency and other anemia (2 sources) Anemia, unspecified; Translations: [Anemia, unspecified] 11-22-2023 Episodic Diabetes mellitus with complications (20 sources) Hyperglycemia due to type 2 diabetes mellitus; Translations: [Type 2 diabetes mellitus with hyperglycemia] Onset: 06-29-2025 01-16-2022 Chronic Diabetes mellitus without complication (20 sources) Type 2 diabetes mellitus; Translations: [Type 2 diabetes mellitus without complications] Onset: 01-27-2025 Chronic Diabetes mellitus without complication (20 sources) Hyperglycemia; Translations: [Hyperglycemia, unspecified] Episodic Disorders of lipid metabolism (20 sources) Hypertriglyceridemia; Translations: [Pure hyperglyceridemia] Onset: 01-27-2025 Chronic Essential hypertension (20 sources) Essential hypertension; Translations: [Essential (primary) hypertension] Onset: 07-15-2025 Chronic Fluid and electrolyte disorders (20 sources) Lactic acidosis; Translations: [Acidosis] Onset: 07-15-2025 Episodic Immunizations and screening for infectious disease (9 sources) Encounter for immunization; Translations: [Need for vaccination against Streptococcus pneumoniae] Onset: 07-12-2025 06-30-2025 Episodic Malaise and fatigue (20 sources) Asthenia; Translations: [Weakness] Episodic Nausea and vomiting (14 sources) Vomiting; Translations: [Vomiting, unspecified] 06-05-2025 Episodic Nonspecific chest pain (20 sources) Chest [...] ICA occlusion, left ICA 41% stenosis Osteoarthritis (20 sources) Arthritis of shoulder region joint; Translations: [Primary osteoarthritis, right shoulder] Onset: 06-16-2025 10-09-2023 Chronic Other and ill-defined cerebrovascular disease (16 sources) Aneurysm of anterior cerebral artery; Translations: [...] A1/A2 junction Other and ill-defined cerebrovascular disease (20 sources) Cerebrovascular disease; Translations: [Cerebrovascular disease, unspecified] 02-11-2025 Chronic Other and unspecified benign neoplasm (20 sources) History of polyp of colon; Translations: [Personal history of colonic polyps] 11-20-2023 Episodic Other and unspecified benign neoplasm (2 sources) Personal history of colonic polyps; Translations: [Personal history of colonic polyps] 11-22-2023 Episodic Other circulatory disease (20 sources) Disorder of carotid artery; Translations: [Disorder of arteries and arterioles, unspecified] 05-22-2023 Chronic Other circulatory disease (5 sources) Disorder of arteries and arterioles, unspecified; Translations: [Unspecified disorders of arteries and arterioles] 05-22-2023 Chronic Other circulatory disease (20 sources) History of hemorrhagic cerebrovascular accident without [...] residual deficits] 05-22-2023 Episodic Other circulatory disease (20 sources) Transient ischemia; Translations: [Other disorder of circulatory system] 02-11-2025 Episodic Other diseases of kidney and ureters (5 sources) Chronic renal insufficiency; Translations: [Disorder of kidney and ureter, unspecified] 09-01-2023 Episodic Other endocrine disorders (14 sources) Hypoglycemia; Translations: [Hypoglycemia, unspecified] 06-07-2025 Chronic Other endocrine disorders (1 source) Hypoglycemia, unspecified; Translations: [Hypoglycemia, unspecified] Onset: 07-15-2025 Chronic Other gastrointestinal disorders (1 source) Irritable bowel syndrome without diarrhea; Translations: [Irritable bowel syndrome, unspecified] Onset: 05-12-2025 Chronic Other gastrointestinal disorders (19 sources) Diarrhea; Translations: [Diarrhea, unspecified] 05-03-2025 Episodic Other gastrointestinal disorders (1 source) Diarrhea, unspecified; Translations: [Diarrhea, unspecified] Onset: 05-03-2025 Episodic Other infections; including parasitic (20 sources) Personal history of other infectious and [...] Episodic Other nutritional; endocrine; and metabolic disorders (20 sources) H/O: diabetes mellitus; Translations: [Personal history of other endocrine, nutritional and metabolic disease] 08-24-2023 Episodic Other upper respiratory infections (20 sources) Acute sinusitis; Translations: [Acute sinusitis, unspecified] 08-29-2023 Episodic Residual codes; unclassified (20 sources) Other specified postprocedural states; Translations: [History of laminectomy] 07-28-2024 Episodic Syncope (20 sources) Near syncope; Translations: [Syncope and collapse] 03-07-2024 Episodic Thyroid disorders (20 sources) Hypothyroidism; Translations: [Hypothyroidism, unspecified] Onset: 12-01-2024 [...] sources) I67.1 - Cerebral aneurysm, nonruptured Unclassified (2 sources) Acute metabolic acidosis; Translations: [Acute metabolic acidosis] Onset: 06-29-2025 Unclassified (1 source) Cough, unspecified; Translations: [Cough, [...] to prox L AD and PTCAof the diagonal 08/28/2001 Genitourinary symptoms and ill-defined conditions [...] 09-10-2024 05-22-2022 Episodic Comment on above: 2021 Residual codes; unclassified (20 sources) History of [...] general symptoms and signs] Onset: 02-06-2025 Episodic Spondylosis; intervertebral disc disorders; other back problems (20 sources) Lumbar radiculopathy; Translations: [Radiculopathy, lumbar region] Onset: 10-02-2024 Episodic Unclassified (1 source) Problem Results Test Name Value Interpretation Reference Range Facility MR/BMS.IMBon 07-21-2025 MR/BMS.IMB Normal [facility] Surgery Visit Reporton 07-20 Surgery Visit Report Normal [facility] Anion gap in Serum or Plasma Ordered By: Angelina Ruiz on 07-12-2025 Anion gap [Moles/Vol] 11 mmol/L 5-15 [facility] BUN/creatinine ratioOrdered By: Angelina Ruiz on 07-12-2025 Urea nitrogen/Creatinine [Mass ratio] 22.3 mg/mg High 10-20 [facility] Basic Metabolic Profile (BMP )on 07-12-2025 BUN/CRE 22.3 RATIO High 10-20 [facility] Comment on above: Performed By: #### L 500.2500 ####[facility] [address] [place], [address] Calcium [Mass/Vol] 10.0 mg/dL Normal 7.6-11.0 [facility] Comment on above: Performed By: #### L 500.2500 ####[facility] [address] [place], [address] Chloride [Moles/Vol] 106 mmol/L Normal 98-108 [facility] Comment on above: Performed By: #### L 500.2500 ####[facility] [address] [place], [address] CO2 [Moles/Vol] 23.0 mmol/L Normal 21.0-32.0 [facility] Comment on above: Performed By: #### L 500.2500 ####[facility] [address] [place], [address] Creatinine [Mass/Vol] 2.41 mg/dL High 0.70-1.20 [facility] Comment on above: Performed By: #### L 500.2500 ####[facility] [address] [place], [address] GAP 11 Normal 5-15 [facility] Comment on above: Performed By: #### L 500.2500 ####[facility] [address] [place], [address] GFR/1.73 sq M.predicted among non-blacks MDRD (S/P/Bld) [Vol rate/Area] 27 mL/min/{1.73_m2} Low >60 [facility] Comment on above: Result Comment: mL/m in/1.73m2 CKD-EPI Creatinine Equation (2020) Performed By: #### L 500.2500 ####[facility] [address] [place], [address] Glucose [Mass/Vol] 269 mg/dL High 70-99 [facility] Comment on above: Performed By: #### L 500.2500 ####[facility] [address] [place], [address] Potassium [Moles/Vol] 5.7 mmol/L High 3.3-5.1 [facility] Comment on above: Performed By: #### L 500.2500 ####[facility] [address] [place], [address] Sodium [Moles/Vol] 140 mmol/L Normal 133-145 [facility] Comment on above: Performed By: #### L 500.2500 ####[facility] [address] [place], [address] Urea nitrogen [Mass/Vol] 54 mg/dL High 4-19 [facility] Comment on above: Performed By: #### L 500.2500 ####[facility] [address] [place], [address] Carbon dioxide, total [Moles /volume] in Central venous bloodOrdered By: Angelina Ruiz on 07-12-2025 CO2 [Moles/Vol] 23.0 mmol/L 21.0-32.0 [facility] Chloride assayOrdered By: Vira Ruiz on 07-12-2025 Chloride [Moles/Vol] 106 mmol/L 98-108 [facility] Glomerular filtration rate ( GFR) estimation/1.73 sq m using serum, plasma, or whole bOrdered By: Angelina Ruiz on 07-12-2025 GFR/1.73 sq M.predicted among non-blacks MDRD (S/P/Bld) [Vol rate/Area] 27 mL/min/{1.73_m2} Low >60 [facility] Potassium measurement (mass/ volume)Ordered By: Angelina Ruiz on 07-12-2025 Potassium (Unsp spec) [Mass/Vol] 5.7 mmol/L High 3.3-5.1 [facility] Serum creatinine measurement (mass/volume)Ordered By: Angelina Ruiz on 07-12-2025 Creatinine [Mass/Vol] 2.41 mg/dL High 0.70-1.20 [facility] Serum glucose measurement (m ass/volume)Ordered By: Angelina Ruiz on 07-12-2025 Glucose [Mass/Vol] 269 mg/dL High 70-99 [facility] Serum or plasma calcium makeda urement (mass/volume)Ordered By: Angelina Ruiz on 07-12-2025 Calcium [Mass/Vol] 10.0 mg/dL 7.6-11.0 [facility] Serum or plasma urea nitroge n measurement (mass/volume)Ordered By: Angelina Ruiz on 07-12-2025 Urea nitrogen [Mass/Vol] 54 mg/dL High 4-19 [facility] Sodium levelOrdered By: Rebecca Ruiz on 07-12-2025 Sodium [Moles/Vol] 140 mmol/L 133-145 [facility] Office Visit Reporton 2024 Office Visit Report Normal [facility] Absolute lymphocyte countOrd ered By: Briseyda Sinclair on 06-21-2025 Lymphocytes Auto (Unsp spec) [#/Vol] 1.01 10*3/uL 0.83-4.51 [facility] Anion gap in Serum or Plasma Ordered By: Briseyda Sinclair on 06-21-2025 Anion gap [Moles/Vol] 15 mmol/L - [facility] Automated lymphocyte count a s percentage of total leukocytesOrdered By: Briseyda Sinclair on 06-21-2025 Lymphocytes/100 WBC Auto (Unsp spec) 14.2 % Low 19-41 [facility] BUN/creatinine ratioOrdered By: Briseyda Sinclair on 06-21-2025 Urea nitrogen/Creatinine [Mass ratio] 13.6 mg/mg 10- [facility] Basic Metabolic Profile (BMP )on 06-21-2025 BUN/CRE 13.6 RATIO Normal 10-20 [facility] Comment on above: Performed By: #### L 500.2500, L100.0100 ####[facility] [address] [place], [address] Calcium [Mass/Vol] 9.5 mg/dL Normal 7.6-11.0 [facility] Comment on above: Performed By: #### L 500.2500, L100.0100 ####[facility] [address] [place], [address] Chloride [Moles/Vol] 99 mmol/L Normal 98-108 [facility] Comment on above: Performed By: #### L 500.2500, L100.0100 ####[facility] [address] [place], [address] CO2 [Moles/Vol] 22.3 mmol/L Normal 21.0-32.0 [facility] Comment on above: Performed By: #### L 500.2500, L100.0100 ####[facility] [address] [place], [address] Creatinine [Mass/Vol] 3.08 mg/dL High 0.70-1.20 [facility] Comment on above: Performed By: #### L 500.2500, L100.0100 ####[facility] [address] [place], [address] GAP 15 Normal 5-15 [facility] Comment on above: Performed By: #### L 500.2500, L100.0100 ####[facility] [address] [place], [address] GFR/1.73 sq M.predicted among non-blacks MDRD (S/P/Bld) [Vol rate/Area] 20 mL/min/{1.73_m2} Low >60 [facility] Comment on above: Result Comment: mL/m in/1.73m2 CKD-EPI Creatinine Equation (2020) Performed By: #### L 500.2500, L100.0100 ####[facility] [address] [place], [address] Glucose [Mass/Vol] 643 mg/dL Invalid Interpretation Code 70-99 [facility] Comment on above: Result Comment: Crit ical Result(s) Called at 1007: by: ROLAND YUN.??Results read back by same. Performed By: #### L 500.2500, L100.0100 ####[facility] [address] [place], [address] Potassium [Moles/Vol] 4.6 mmol/L Normal 3.3-5.1 [facility] Comment on above: Performed By: #### L 500.2500, L100.0100 ####[facility] [address] [place], [address] Sodium [Moles/Vol] 137 mmol/L Normal 133-145 [facility] Comment on above: Performed By: #### L 500.2500, L100.0100 ####[facility] [address] [place], [address] Urea nitrogen [Mass/Vol] 42 mg/dL High 4-19 [facility] Comment on above: Performed By: #### L 500.2500, L100.0100 ####[facility] [address] [place], [address] Basophil percentageOrdered B y: Briseyda Sinclair on 06-21-2025 Basophils/100 WBC (Bld) 0.4 % 0-1 [facility] CBC W/Diff, Automatedon Absolute Lymph 1.01 X10 3/uL Normal 0.83-4.51 [facility] Comment on above: Performed By: #### L 500.2500, L100.0100 ####[facility] [address] [place], [address] Absolute Neut 5.2 X10 3/uL Normal 2.0-7.7 [facility] Comment on above: Performed By: #### L 500.2500, L100.0100 ####[facility] [address] [place], [address] Basophils/100 WBC (Bld) 0.4 % Normal 0-1 [facility] Comment on above: Performed By: #### L 500.2500, L100.0100 ####[facility] [address] [place], [address] Eosinophils/100 WBC (Bld) 4.2 % Normal 0-5 [facility] Comment on above: Performed By: #### L 500.2500, L100.0100 ####[facility] [address] [place], [address] Erythrocyte distribution width (RBC) [Ratio] 12.9 % Normal 11.6-14.6 [facility] Comment on above: Performed By: #### L 500.2500, L100.0100 ####[facility] [address] [place], [address] Hematocrit (Bld) [Volume fraction] 26.3 % Low 40-54 [facility] Comment on above: Performed By: #### L 500.2500, L100.0100 ####[facility] [address] [place], [address] Hemoglobin (Bld) [Mass/Vol] 9.2 g/dL Low 13.0-16.5 [facility] Comment on above: Performed By: #### L 500.2500, L100.0100 ####[facility] [address] [place], [address] IG% 0.600 Normal 0.0-0.9 [facility] Comment on above: Result Comment: IG% - Immature Granulocytes (promyelocytes, myelocytes andmetamyelocytes) > 1% indicates that a LEFT SHIFT is Present. Performed By: #### L 500.2500, L100.0100 ####[facility] [address] [place], [address] Lymphocytes/100 WBC (Bld) 14.2 % Low 19-41 [facility] Comment on above: Performed By: #### L 500.2500, L100.0100 ####[facility] [address] [place], [address] MCH (RBC) [Entitic mass] 32.3 pg High 27.0-32.0 [facility] Comment on above: Performed By: #### L 500.2500, L100.0100 ####[facility] [address] [place], [address] MCHC (RBC) [Mass/Vol] 35.0 g/dL Normal 32-36 [facility] Comment on above: Performed By: #### L 500.2500, L100.0100 ####[facility] [address] [place], [address] MCV (RBC) [Entitic vol] 92.3 fL Normal 80-94 [facility] Comment on above: Performed By: #### L 500.2500, L100.0100 ####[facility] [address] [place], [address] Monocytes/100 WBC (Bld) 7.3 % Normal 0-10 [facility] Comment on above: Performed By: #### L 500.2500, L100.0100 ####[facility] [address] [place], [address] Neutrophils/100 WBC (Bld) 73.3 % High 47-70 [facility] Comment on above: Performed By: #### L 500.2500, L100.0100 ####[facility] [address] [place], [address] Nucleated RBC (Bld) [#/Vol] 0 10*3/uL Normal 0-5 [facility] Comment on above: Performed By: #### L 500.2500, L100.0100 ####[facility] [address] [place], [address] Platelet mean volume (Bld) [Entitic vol] 9.5 fL Normal 6.2-12.0 [facility] Comment on above: Performed By: #### L 500.2500, L100.0100 ####[facility] [address] [place], [address] Platelets (Bld) [#/Vol] 334 10*3/uL Normal 150-450 [facility] Comment on above: Performed By: #### L 500.2500, L100.0100 ####[facility] [address] [place], [address] RBC (Bld) [#/Vol] 2.85 10*6/uL Low 4.6-6.2 [facility] Comment on above: Performed By: #### L 500.2500, L100.0100 ####[facility] [address] [place], [address] RDW SD 43.2 fl Normal 35.1-43.9 [facility] Comment on above: Performed By: #### L 500.2500, L100.0100 ####[facility] [address] [place], [address] WBC (Bld) [#/Vol] 7.1 10*3/uL Normal 4.4-11.0 [facility] Comment on above: Performed By: #### L 500.2500, L100.0100 ####[facility] [address] [place], [address] Carbon dioxide, total [Moles /volume] in Central venous bloodOrdered By: Briseyda Sinclair on 06-21-2025 CO2 [Moles/Vol] 22.3 mmol/L 21.0-32.0 [facility] Chloride assayOrdered By: Marcie Sinclair on 06-21-2025 Chloride [Moles/Vol] 99 mmol/L 98-108 [facility] Eosinophil percentageOrdered By: Briseyda Sinclair on 06-21-2025 Eosinophils/100 WBC (Bld) 4.2 % 0-5 [facility] Erythrocyte distribution wid th ratioOrdered By: Briseyda Sinclair on 06-21-2025 Erythrocyte distribution width (RBC) [Ratio] 12.9 % 11.6-14.6 [facility] Erythrocyte distribution wid th standard deviationOrdered By: Briseyda Sinclair on 06-21-2025 Erythrocyte distribution width (RBC) [Ratio] 43.2 fl 35.1-43.9 [facility] Glomerular filtration rate ( GFR) estimation/1.73 sq m using serum, plasma, or whole bOrdered By: Briseyda Sinclair on 06-21-2025 GFR/1.73 sq M.predicted among non-blacks MDRD (S/P/Bld) [Vol rate/Area] 20 mL/min/{1.73_m2} Low >60 [facility] Hematocrit Auto (Bld) [Volum e fraction]Ordered By: Briseyda Sinclair on 06-21-2025 Hematocrit (Bld) [Volume fraction] 26.3 % Low 40-54 [facility] Hemoglobin measurementOrdere d By: Briseyda Sinclair on 06-21-2025 Hemoglobin (Bld) [Mass/Vol] 9.2 g/dL Low 13.0-16.5 [facility] Immature granulocytes/100 WB C Auto (Bld)Ordered By: Briseyda Sinclair on 06-21-2025 Immature granulocytes/100 WBC (Bld) 0.600 % 0.0-0.9 [facility] MCV (mean corpuscular volume ) determinationOrdered By: Briseyda Sinclair on 06-21-2025 MCV (RBC) [Entitic vol] 92.3 fL 80-94 [facility] MR/BMS.IMBon 06-21-2025 MR/BMS.IMB Normal [facility] Mean corpuscular hemoglobin (MCH) determinationOrdered By: Briseyda Sinclair on 06-21-2025 MCH (RBC) [Entitic mass] 32.3 pg High 27.0-32.0 [facility] Monocyte percentageOrdered B y: Briseyda Sinclair on 06-21-2025 Monocytes/100 WBC (Bld) 7.3 % 0-10 [facility] Neutrophil percentageOrdered By: Briseyda Sinclair on 06-21-2025 Neutrophils/100 WBC (Bld) 73.3 % High 47-70 [facility] Platelet countOrdered By: Marcie Sinclair on 06-21-2025 Platelets (Bld) [#/Vol] 334 10*3/uL 150-450 [facility] Potassium measurement (mass/ volume)Ordered By: Briseyda Sinclair on 06-21-2025 Potassium (Unsp spec) [Mass/Vol] 4.6 mmol/L 3.3-5.1 [facility] RBC Auto (Bld) [#/Vol]Ordere d By: Briseyda Sinclair on 06-21-2025 RBC (Bld) [#/Vol] 2.85 10*6/uL Low 4.6-6.2 [facility] Serum creatinine measurement (mass/volume)Ordered By: Briseyda Sinclair on 06-21-2025 Creatinine [Mass/Vol] 3.08 mg/dL High 0.70-1.20 [facility] Serum glucose measurement (m ass/volume)Ordered By: Briseyda Sinclair on 06-21-2025 Glucose [Mass/Vol] 643 mg/dL Critically high 70-99 [facility] Serum or plasma calcium makeda urement (mass/volume)Ordered By: Briseyda Sinclair on 06-21-2025 Calcium [Mass/Vol] 9.5 mg/dL 7.6-11.0 [facility] Serum or plasma urea nitroge n measurement (mass/volume)Ordered By: Briseyda Sinclair on 06-21-2025 Urea nitrogen [Mass/Vol] 42 mg/dL High 4-19 [facility] Sodium levelOrdered By: Amita Sinclair on 06-21-2025 Sodium [Moles/Vol] 137 mmol/L 133-145 [facility] White blood cell (WBC) count Ordered By: Briseyda Sinclair on 06-21-2025 WBC (Bld) [#/Vol] 7.1 10*3/uL 4.4-11.0 [facility] Basic Metabolic Profile (BMP )on 06-17-2025 BUN Normal 4-19 [facility] Comment on above: Result Comment: Canc elled via OM: Order cancelled - Patient discharged Performed By: #### L 100.0100, L500.2500 ####[facility] [address] [place], [address] BUN/CRE Normal 10-20 [facility] Comment on above: Result Comment: Canc elled via OM: Order cancelled - Patient discharged Performed By: #### L 100.0100, L500.2500 ####[facility] [address] [place], [address] Calcium Normal 7.6-11.0 [facility] Comment on above: Result Comment: Canc elled via OM: Order cancelled - Patient discharged Performed By: #### L 100.0100, L500.2500 ####[facility] [address] [place], [address] CL Normal 98-108 [facility] Comment on above: Result Comment: Canc elled via OM: Order cancelled - Patient discharged Performed By: #### L 100.0100, L500.2500 ####[facility] [address] [place], [address] CO2 Normal 21.0-32.0 [facility] Comment on above: Result Comment: Canc elled via OM: Order cancelled - Patient discharged Performed By: #### L 100.0100, L500.2500 ####[facility] [address] [place], [address] CREAT,SERUM Normal 0.70-1.20 [facility] Comment on above: Result Comment: Canc elled via OM: Order cancelled - Patient discharged Performed By: #### L 100.0100, L500.2500 ####[facility] [address] [place], [address] eGFR Normal >60 [facility] Comment on above: Result Comment: Canc elled via OM: Order cancelled - Patient discharged Performed By: #### L 100.0100, L500.2500 ####[facility] [address] [place], [address] GAP Normal 5-15 [facility] Comment on above: Result Comment: Canc elled via OM: Order cancelled - Patient discharged Performed By: #### L 100.0100, L500.2500 ####[facility] [address] [place], [address] GLU Normal 70-99 [facility] Comment on above: Result Comment: Canc elled via OM: Order cancelled - Patient discharged Performed By: #### L 100.0100, L500.2500 ####[facility] [address] [place], [address] Potassium Normal 3.3-5.1 [facility] Comment on above: Result Comment: Canc elled via OM: Order cancelled - Patient discharged Performed By: #### L 100.0100, L500.2500 ####[facility] [address] [place], [address] Basic Metabolic Profile (BMP) Normal 133-145 [facility] Comment on above: Result Comment: Canc elled via OM: Order cancelled - Patient discharged Performed By: #### L 100.0100, L500.2500 ####[facility] [address] [place], [address] CBC W/Diff, Automatedon 10-0 Absolute Neut Normal 2.0-7.7 [facility] Comment on above: Result Comment: Canc elled via OM: Order cancelled - Patient discharged Performed By: #### L 100.0100, L500.2500 ####[facility] [address] [place], [address] HCT Normal 40-54 [facility] Comment on above: Result Comment: Canc elled via OM: Order cancelled - Patient discharged Performed By: #### L 100.0100, L500.2500 ####[facility] [address] [place], [address] HGB Normal 13.0-16.5 [facility] Comment on above: Result Comment: Canc elled via OM: Order cancelled - Patient discharged Performed By: #### L 100.0100, L500.2500 ####[facility] [address] [place], [address] MCH Normal 27.0-32.0 [facility] Comment on above: Result Comment: Canc elled via OM: Order cancelled - Patient discharged Performed By: #### L 100.0100, L500.2500 ####[facility] [facility] [address] [place], [address] MCHC Normal 32-36 [facility] Comment on above: Result Comment: Canc elled via OM: Order cancelled - Patient discharged Performed By: #### L 100.0100, L500.2500 ####[facility] [address] [place], [address] MCV Normal 80-94 [facility] Comment on above: Result Comment: Canc elled via OM: Order cancelled - Patient discharged Performed By: #### L 100.0100, L500.2500 ####[facility] [address] [place], [address] NEUT% Normal 47-70 [facility] Comment on above: Result Comment: Canc elled via OM: Order cancelled - Patient discharged Performed By: #### L 100.0100, L500.2500 ####[facility] [address] [place], [address] PLT Normal 150-450 [facility] Comment on above: Result Comment: Canc elled via OM: Order cancelled - Patient discharged Performed By: #### L 100.0100, L500.2500 ####[facility] [address] [place], [address] RBC Normal 4.6-6.2 [facility] Comment on above: Result Comment: Canc elled via OM: Order cancelled - Patient discharged Performed By: #### L 100.0100, L500.2500 ####[facility] [address] [place], [address] RDW CV Normal 11.6-14.6 [facility] Comment on above: Result Comment: Canc elled via OM: Order cancelled - Patient discharged Performed By: #### L 100.0100, L500.2500 ####[facility] [address] [place], [address] RDW SD Normal 35.1-43.9 [facility] Comment on above: Result Comment: Canc elled via OM: Order cancelled - Patient discharged Performed By: #### L 100.0100, L500.2500 ####[facility] [address] [place], [address] WBC Normal 4.4-11.0 [facility] Comment on above: Result Comment: Canc elled via OM: Order cancelled - Patient discharged Performed By: #### L 100.0100, L500.2500 ####[facility] [address] [place], [address] Basic Metabolic Profile (BMP )on 06-16-2025 BUN Normal 4-19 [facility] Comment on above: Result Comment: Canc elled via OM: Order cancelled - Patient discharged Performed By: #### L 100.0100, L500.2500 ####[facility] [address] [place], [address] BUN/CRE Normal 10-20 [facility] Comment on above: Result Comment: Canc elled via OM: Order cancelled - Patient discharged Performed By: #### L 100.0100, L500.2500 ####[facility] [address] [place], [address] Calcium Normal 7.6-11.0 [facility] Comment on above: Result Comment: Canc elled via OM: Order cancelled - Patient discharged Performed By: #### L 100.0100, L500.2500 ####[facility] [address] [place], [address] CL Normal 98-108 [facility] Comment on above: Result Comment: Canc elled via OM: Order cancelled - Patient discharged Performed By: #### L 100.0100, L500.2500 ####[facility] [address] [place], [address] CO2 Normal 21.0-32.0 [facility] Comment on above: Result Comment: Canc elled via OM: Order cancelled - Patient discharged Performed By: #### L 100.0100, L500.2500 ####[facility] [address] [place], [address] CREAT,SERUM Normal 0.70-1.20 [facility] Comment on above: Result Comment: Canc elled via OM: Order cancelled - Patient discharged Performed By: #### L 100.0100, L500.2500 ####[facility] [address] [place], [address] eGFR Normal >60 [facility] Comment on above: Result Comment: Canc elled via OM: Order cancelled - Patient discharged Performed By: #### L 100.0100, L500.2500 ####[facility] [address] [place], [address] GAP Normal 5-15 [facility] Comment on above: Result Comment: Canc elled via OM: Order cancelled - Patient discharged Performed By: #### L 100.0100, L500.2500 ####[facility] [address] [place], [address] GLU Normal 70-99 [facility] Comment on above: Result Comment: Canc elled via OM: Order cancelled - Patient discharged Performed By: #### L 100.0100, L500.2500 ####[facility] [address] [place], [address] Potassium Normal 3.3-5.1 [facility] Comment on above: Result Comment: Canc elled via OM: Order cancelled - Patient discharged Performed By: #### L 100.0100, L500.2500 ####[facility] [address] [place], [address] Basic Metabolic Profile (BMP) Normal 133-145 [facility] Comment on above: Result Comment: Canc elled via OM: Order cancelled - Patient discharged Performed By: #### L 100.0100, L500.2500 ####[facility] [address] [place], [address] CBC W/Diff, Automatedon 10-0 Absolute Neut Normal 2.0-7.7 [facility] Comment on above: Result Comment: Canc elled via OM: Order cancelled - Patient discharged Performed By: #### L 100.0100, L500.2500 ####[facility] [address] [place], [address] HCT Normal 40-54 [facility] Comment on above: Result Comment: Canc elled via OM: Order cancelled - Patient discharged Performed By: #### L 100.0100, L500.2500 ####[facility] [address] [place], [address] HGB Normal 13.0-16.5 [facility] Comment on above: Result Comment: Canc elled via OM: Order cancelled - Patient discharged Performed By: #### L 100.0100, L500.2500 ####[facility] [address] [place], [address] MCH Normal 27.0-32.0 [facility] Comment on above: Result Comment: Canc elled via OM: Order cancelled - Patient discharged Performed By: #### L 100.0100, L500.2500 ####[facility] [address] [place], [address] MCHC Normal 32-36 [facility] Comment on above: Result Comment: Canc elled via OM: Order cancelled - Patient discharged Performed By: #### L 100.0100, L500.2500 ####[facility] [address] [place], [address] MCV Normal 80-94 [facility] Comment on above: Result Comment: Canc elled via OM: Order cancelled - Patient discharged Performed By: #### L 100.0100, L500.2500 ####[facility] [address] [place], [address] NEUT% Normal 47-70 [facility] Comment on above: Result Comment: Canc elled via OM: Order cancelled - Patient discharged Performed By: #### L 100.0100, L500.2500 ####[facility] [address] [place], [address] PLT Normal 150-450 [facility] Comment on above: Result Comment: Canc elled via OM: Order cancelled - Patient discharged Performed By: #### L 100.0100, L500.2500 ####[facility] [address] [place], [address] RBC Normal 4.6-6.2 [facility] Comment on above: Result Comment: Canc elled via OM: Order cancelled - Patient discharged Performed By: #### L 100.0100, L500.2500 ####[facility] [address] [place], [address] RDW CV Normal 11.6-14.6 [facility] Comment on above: Result Comment: Canc elled via OM: Order cancelled - Patient discharged Performed By: #### L 100.0100, L500.2500 ####[facility] [address] [place], [address] RDW SD Normal 35.1-43.9 [facility] Comment on above: Result Comment: Canc elled via OM: Order cancelled - Patient discharged Performed By: #### L 100.0100, L500.2500 ####[facility] [address] [place], [address] WBC Normal 4.4-11.0 [facility] Comment on above: Result Comment: Canc elled via OM: Order cancelled - Patient discharged Performed By: #### L 100.0100, L500.2500 ####[facility] [address] [place], [address] Absolute lymphocyte countOrd ered By: Fawad Bates on 06-15-2025 Lymphocytes Auto (Unsp spec) [#/Vol] 1.29 10*3/uL 0.83-4.51 [facility] Anion gap in Serum or Plasma Ordered By: Fawad Bates on 06-15-2025 Anion gap [Moles/Vol] 13 mmol/L 5-15 [facility] Automated lymphocyte count a s percentage of total leukocytesOrdered By: Fawad Bates on 06-15-2025 Lymphocytes/100 WBC Auto (Unsp spec) 19.8 % 19-41 [facility] BUN/creatinine ratioOrdered By: Fawad Bates on 06-15-2025 Urea nitrogen/Creatinine [Mass ratio] 14.2 mg/mg 10-20 [facility] Basic Metabolic Profile (BMP )on 06-15-2025 BUN Normal 4-19 [facility] Comment on above: Result Comment: OK T O CANCEL PER PAMELA CHARGE NURSE, SHE SAID NOT NEEDEDSINCE ONE WAS ALREADY COMPLETED TODAY Performed By: #### L 500.2500, L100.0100 ####[facility] [address] [place], [address] BUN/CRE Normal 10-20 [facility] Comment on above: Result Comment: OK T O CANCEL PER PAMELA CHARGE NURSE, SHE SAID NOT NEEDEDSINCE ONE WAS ALREADY COMPLETED TODAY Performed By: #### L 500.2500, L100.0100 ####[facility] [address] [place], [address] Calcium Normal 7.6-11.0 [facility] Comment on above: Result Comment: OK T O CANCEL PER PAMELA CHARGE NURSE, SHE SAID NOT NEEDEDSINCE ONE WAS ALREADY COMPLETED TODAY Performed By: #### L 500.2500, L100.0100 ####[facility] [address] [place], [address] CL Normal 98-108 [facility] Comment on above: Result Comment: OK T O CANCEL PER PAMELA CHARGE NURSE, SHE SAID NOT NEEDEDSINCE ONE WAS ALREADY COMPLETED TODAY Performed By: #### L 500.2500, L100.0100 ####[facility] [address] [place], [address] CO2 Normal 21.0-32.0 [facility] Comment on above: Result Comment: OK T O CANCEL PER PAMELA CHARGE NURSE, SHE SAID NOT NEEDEDSINCE ONE WAS ALREADY COMPLETED TODAY Performed By: #### L 500.2500, L100.0100 ####[facility] [address] [place], [address] CREAT,SERUM Normal 0.70-1.20 [facility] Comment on above: Result Comment: OK T O CANCEL PER PAMELA CHARGE NURSE, SHE SAID NOT NEEDEDSINCE ONE WAS ALREADY COMPLETED TODAY Performed By: #### L 500.2500, L100.0100 ####[facility] [address] [place], [address] eGFR Normal >60 [facility] Comment on above: Result Comment: OK T O CANCEL PER PAMELA CHARGE NURSE, SHE SAID NOT NEEDEDSINCE ONE WAS ALREADY COMPLETED TODAY Performed By: #### L 500.2500, L100.0100 ####[facility] [address] [place], [address] GAP Normal 5-15 [facility] Comment on above: Result Comment: OK T O CANCEL PER PAMELA CHARGE NURSE, SHE SAID NOT NEEDEDSINCE ONE WAS ALREADY COMPLETED TODAY Performed By: #### L 500.2500, L100.0100 ####[facility] [address] [place], [address] GLU Normal 70-99 [facility] Comment on above: Result Comment: OK T O CANCEL PER PAMELA CHARGE NURSE, SHE SAID NOT NEEDEDSINCE ONE WAS ALREADY COMPLETED TODAY Performed By: #### L 500.2500, L100.0100 ####[facility] [address] [place], [address] Potassium Normal 3.3-5.1 [facility] Comment on above: Result Comment: OK T O CANCEL PER PAMELA CHARGE NURSE, SHE SAID NOT NEEDEDSINCE ONE WAS ALREADY COMPLETED TODAY Performed By: #### L 500.2500, L100.0100 ####[facility] [address] [place], [address] Basic Metabolic Profile (BMP) Normal 133-145 [facility] Comment on above: Result Comment: OK T O CANCEL PER PAMELA CHARGE NURSE, SHE SAID NOT NEEDEDSINCE ONE WAS ALREADY COMPLETED TODAY Performed By: #### L 500.2500, L100.0100 ####[facility] [address] [place], [address] BUN/CRE 14.2 RATIO Normal 10-20 [facility] Comment on above: Performed By: #### L 500.2500 ####[facility] [address] [place], [address] Calcium [Mass/Vol] 9.0 mg/dL Normal 7.6-11.0 [facility] Comment on above: Performed By: #### L 500.2500 ####[facility] [address] [place], [address] Chloride [Moles/Vol] 111 mmol/L High 98-108 [facility] Comment on above: Performed By: #### L 500.2500 ####[facility] [address] [place], [address] CO2 [Moles/Vol] 22.5 mmol/L Normal 21.0-32.0 [facility] Comment on above: Performed By: #### L 500.2500 ####[facility] [address] [place], [address] Creatinine [Mass/Vol] 4.01 mg/dL High 0.70-1.20 [facility] Comment on above: Performed By: #### L 500.2500 ####[facility] [address] [place], [address] ECRCL 17.19 ml/min Low 50-250 [facility] Comment on above: Performed By: #### L 500.2500 ####[facility] [address] [place], [address] GAP 13 Normal 5-15 [facility] Comment on above: Performed By: #### L 500.2500 ####[facility] [address] [place], [address] GFR/1.73 sq M.predicted among non-blacks MDRD (S/P/Bld) [Vol rate/Area] 15 mL/min/{1.73_m2} Low >60 [facility] Comment on above: Result Comment: mL/m in/1.73m2 CKD-EPI Creatinine Equation (2020) Performed By: #### L 500.2500 ####[facility] [address] [place], [address] Glucose [Mass/Vol] 246 mg/dL High 70-99 [facility] Comment on above: Performed By: #### L 500.2500 ####[facility] [address] [place], [address] Potassium [Moles/Vol] 4.7 mmol/L Normal 3.3-5.1 [facility] Comment on above: Performed By: #### L 500.2500 ####[facility] [address] [place], [address] Sodium [Moles/Vol] 147 mmol/L High 133-145 [facility] Comment on above: Performed By: #### L 500.2500 ####[facility] [address] [place], [address] Urea nitrogen [Mass/Vol] 57 mg/dL High 4-19 [facility] Comment on above: Performed By: #### L 500.2500 ####[facility] [address] [place], [address] Basophil percentageOrdered B y: Fawadganga Bates on 06-15-2025 Basophils/100 WBC (Bld) 0.3 % 0-1 [facility] Bedside Glucoseon 06-15-2025 FINGERSTICK GLU 290 mg/dL High 74-106 [facility] Comment on above: Result Comment: ANGELA GEMENT OF PATIENT CARE PER NURSING PROTOCOL Performed By: #### L 501.080 ####[facility] [address] [place], [address] FINGERSTICK GLU 289 mg/dL High 74-106 [facility] Comment on above: Result Comment: ANGELA GEMENT OF PATIENT CARE PER NURSING PROTOCOL Performed By: #### L 501.080 ####[facility] [address] [place], [address] Biopsy/Inj or Needle Placeme nton 06-15-2025 Biopsy/Inj or Needle Placement Normal [facility] CBC W/Diff, Automatedon 09-3 0-2024 Absolute Lymph 1.29 X10 3/uL Normal 0.83-4.51 [facility] Comment on above: Performed By: #### L 500.2500, L100.0100 ####[facility] [address] [place], [address] Absolute Neut 3.9 X10 3/uL Normal 2.0-7.7 [facility] Comment on above: Performed By: #### L 500.2500, L100.0100 ####[facility] [address] [place], [address] Basophils/100 WBC (Bld) 0.3 % Normal 0-1 [facility] Comment on above: Performed By: #### L 500.2500, L100.0100 ####[facility] [address] [place], [address] Eosinophils/100 WBC (Bld) 6.9 % High 0-5 [facility] Comment on above: Performed By: #### L 500.2500, L100.0100 ####[facility] [address] [place], [address] Erythrocyte distribution width (RBC) [Ratio] 12.8 % Normal 11.6-14.6 [facility] Comment on above: Performed By: #### L 500.2500, L100.0100 ####[facility] [address] [place], [address] Hematocrit (Bld) [Volume fraction] 25.1 % Low 40-54 [facility] Comment on above: Performed By: #### L 500.2500, L100.0100 ####[facility] [address] [place], [address] Hemoglobin (Bld) [Mass/Vol] 8.2 g/dL Low 13.0-16.5 [facility] Comment on above: Performed By: #### L 500.2500, L100.0100 ####[facility] [address] [place], [address] IG% 0.500 Normal 0.0-0.9 [facility] Comment on above: Result Comment: IG% - Immature Granulocytes (promyelocytes, myelocytes andmetamyelocytes) > 1% indicates that a LEFT SHIFT is Present. Performed By: #### L 500.2500, L100.0100 ####[facility] [address] [place], [address] Lymphocytes/100 WBC (Bld) 19.8 % Normal 19-41 [facility] Comment on above: Performed By: #### L 500.2500, L100.0100 ####[facility] [address] [place], [address] MCH (RBC) [Entitic mass] 31.8 pg Normal 27.0-32.0 [facility] Comment on above: Performed By: #### L 500.2500, L100.0100 ####[facility] [address] [place], [address] MCHC (RBC) [Mass/Vol] 32.7 g/dL Normal 32-36 [facility] Comment on above: Performed By: #### L 500.2500, L100.0100 ####[facility] [address] [place], [address] MCV (RBC) [Entitic vol] 97.3 fL High 80-94 [facility] Comment on above: Performed By: #### L 500.2500, L100.0100 ####[facility] [address] [place], [address] Monocytes/100 WBC (Bld) 13.2 % High 0-10 [facility] Comment on above: Performed By: #### L 500.2500, L100.0100 ####[facility] [address] [place], [address] Neutrophils/100 WBC (Bld) 59.3 % Normal 47-70 [facility] Comment on above: Performed By: #### L 500.2500, L100.0100 ####[facility] [address] [place], [address] Nucleated RBC (Bld) [#/Vol] 0 10*3/uL Normal 0-5 [facility] Comment on above: Performed By: #### L 500.2500, L100.0100 ####[facility] [address] [place], [address] Platelet mean volume (Bld) [Entitic vol] 10.3 fL Normal 6.2-12.0 [facility] Comment on above: Performed By: #### L 500.2500, L100.0100 ####[facility] [address] [place], [address] Platelets (Bld) [#/Vol] 348 10*3/uL Normal 150-450 [facility] Comment on above: Performed By: #### L 500.2500, L100.0100 ####[facility] [address] [place], [address] RBC (Bld) [#/Vol] 2.58 10*6/uL Low 4.6-6.2 [facility] Comment on above: Performed By: #### L 500.2500, L100.0100 ####[facility] [address] [place], [address] RDW SD 45.3 fl High 35.1-43.9 [facility] Comment on above: Performed By: #### L 500.2500, L100.0100 ####[facility] [address] [place], [address] WBC (Bld) [#/Vol] 6.5 10*3/uL Normal 4.4-11.0 [facility] Comment on above: Performed By: #### L 500.2500, L100.0100 ####[facility] [address] [place], [address] Carbon dioxide, total [Moles /volume] in Central venous bloodOrdered By: Fawad Bates on 06-15-2025 CO2 [Moles/Vol] 22.5 mmol/L 21.0-32.0 [facility] Chloride assayOrdered By: Shira Bates on 06-15-2025 Chloride [Moles/Vol] 111 mmol/L High 98-108 [facility] Discharge Instructionon 05-19 Discharge Instruction Normal [facility] Electrocardiogram reportOrde red By: Jeffrey Lord on 06-15-2025 EKG study [facility] Work Phone: [phone] Eosinophil percentageOrdered By: Fawad Bates on 06-15-2025 Eosinophils/100 WBC (Bld) 6.9 % High 0-5 [facility] Erythrocyte distribution wid th ratioOrdered By: Fawad Bates on 06-15-2025 Erythrocyte distribution width (RBC) [Ratio] 12.8 % 11.6-14.6 [facility] Erythrocyte distribution wid th standard deviationOrdered By: Fawad Bates on 06-15-2025 Erythrocyte distribution width (RBC) [Ratio] 45.3 fl High 35.1-43.9 [facility] Glomerular filtration rate ( GFR) estimation/1.73 sq m using serum, plasma, or whole bOrdered By: Fawad Bates on 06-15-2025 GFR/1.73 sq M.predicted among non-blacks MDRD (S/P/Bld) [Vol rate/Area] 15 mL/min/{1.73_m2} Low >60 [facility] Glucose measurement at bedsi deOrdered By: Fawad Bates on 06-15-2025 Glucose [Mass/Vol] 290 mg/dL High 74-106 [facility] Hematocrit Auto (Bld) [Volum e fraction]Ordered By: Fawad Bates on 06-15-2025 Hematocrit (Bld) [Volume fraction] 25.1 % Low 40-54 [facility] Hemoglobin measurementOrdere d By: Fawad Bates on 06-15-2025 Hemoglobin (Bld) [Mass/Vol] 8.2 g/dL Low 13.0-16.5 [facility] Immature granulocytes/100 WB C Auto (Bld)Ordered By: Fawad Bates on 06-15-2025 Immature granulocytes/100 WBC (Bld) 0.500 % 0.0-0.9 [facility] L350.1810on 06-15-2025 Path [facility] SEE PATHOLOGY REPORT Normal [facility] Comment on above: Order Comment: RESUL TS FAXED TO DR SANTIAGO 06/18/25 4420 Tomy Morfin. Result Comment: Spec imen sent to [facility].Report available in EMR. Performed By: #### L 350.1810 ####[facility] [address] [place], [address] MCV (mean corpuscular volume ) determinationOrdered By: Fawad Bates on 06-15-2025 MCV (RBC) [Entitic vol] 97.3 fL High 80-94 [facility] Mean corpuscular hemoglobin (MCH) determinationOrdered By: Fawad Bates on 06-15-2025 MCH (RBC) [Entitic mass] 31.8 pg 27.0-32.0 [facility] Monocyte percentageOrdered B y: Fawad Bates on 06-15-2025 Monocytes/100 WBC (Bld) 13.2 % High 0-10 [facility] Neutrophil percentageOrdered By: Fawad Bates on 06-15-2025 Neutrophils/100 WBC (Bld) 59.3 % 47-70 [facility] Platelet countOrdered By: Shira Bates on 06-15-2025 Platelets (Bld) [#/Vol] 348 10*3/uL 150-450 [facility] Potassium measurement (mass/ volume)Ordered By: Fawad Bates on 06-15-2025 Potassium (Unsp spec) [Mass/Vol] 4.7 mmol/L 3.3-5.1 [facility] RBC Auto (Bld) [#/Vol]Ordere d By: Fawad Bates on 06-15-2025 RBC (Bld) [#/Vol] 2.58 10*6/uL Low 4.6-6.2 [facility] SURG PATH REQUESTon 06-15-20 Case Report Normal [facility] Comment on above: Result Comment: Surg ical Pathology Report Case: [id number] Authorizing Provider: Tara Vo DO Collected: 06/15/2025 10:00 AM Ordering Location: [facility] Received: 06/16/2025 08:01 AM [facility] Pathologist: Brenda Black MD Specimen: [id number] Performed By: #### S URGP #### [facility] (DEFAULT) [address] [place], [place] [id number] Clinical History A 74-year-old white male with history of hypertension, diabetes mellitus type 2, coronary artery disease, iron deficiency anemia, and chronic kidney disease 3B. He was admitted with 2 day history of intractable nausea and vomiting, and was found to have acute kidney injury with a serum creatinine of 8.74. During admission, it worsened to 10.7-12. The latest serum creatinine was 6.5 with a GFR of 9. Baseline serum creatinine as of 03/2025 was 1.4-1.6 mg/dL. Serologies are reportedly normal/negative, including ANCA, anti-GBM, double-stranded DNA, C3, and hepatitis serologies. No M spike was identified on immunofixation. Hemoglobin is 8.2 (10 days earlier it was 12). Platelet count is within normal 285-348. Serum glucose is 199-334 mg/dL. He has normal prothrombin time and PTT. Urinary protein is 100 mg/dL. Serum albumin is 2.7 g/dL. Urine cultures are negative. Blood pressure is 142/73. Normal [facility] Comment on above: Performed By: #### S URGP #### [facility] (DEFAULT) [address] [id number] Gross Description Normal [facility] Comment on above: Result Comment: Rosangela perla from [facility], [place], is a [place] kidney biopsy with two containers labeled with the patient's name and date of . The vial with formalin contains two pieces of 0.1 cm browning-pink renal cores with the aggregate length of 2.7 cm. One 0.2 cm piece in total length is submitted for electron microscopy. The IF transport medium vial contains one piece of 0.1 cm browning-pink renal core with the aggregate length of 1.3 cm, which is cut into two pieces and entirely submitted for immunofluorescence. All formalin-fixed tissue is submitted for light microscopy. TE 2 Summary of Sections: A1 - four pieces A2 - two pieces IF tissue Grosser for this case was: López Cody Performed By: #### S URGP #### [facility] (DEFAULT) [address] [place] [address] Microscopic Description Normal [facility] Comment on above: Result Comment: LIGH T MICROSCOPY Paraffin sections stained with H&E, PAS, Trichrome, and methenamine silver contain renal cortex with up to 31 glomeruli per section. Up to 5 glomeruli are globally sclerotic/ obsolescent. Several glomeruli have periglomerular fibrosis; a few of these show segmental sclerotic lesions. The non-sclerotic glomeruli are enlarged with mild to moderate mesangial expansion that shows vague nodularity. There is mild to moderate interstitial fibrosis and tubular atrophy, involving approximately 25-30% of the renal cortex in the biopsy. Inflammatory cell infiltrate is seen in these fibrotic areas of the interstitium. Interstitial edema and a focal area of interstitial hemorrhage are also noted. Tubules demonstrate features of acute tubular injury with attenuation of tubular epithelial cells, cytoplasmic vacuolization, and focal granular casts. Focal tubular calcium phosphate deposits and rare tubular calcium oxalate crystals are seen. Moderate arteriolar hyalinosis is identified. There is mild to focally moderate arterial fibrointimal thickening. One artery shows mucoid intimal thickening. DIRECT IMMUNOFLUORESCENCE Frozen sections contain renal cortex with up to 14 glomeruli per section. Up to 4 glomeruli are globally sclerotic/obsolescent. Immunofluorescence with antibodies to albumin, IgG, IgA, IgM, C1q, C3, fibrinogen, and both kappa and lambda light chains is performed, and the results are as follows: Albumin: Negative IgG: Negative IgA: Very mild segmental granular staining in 1 glomerulus, 3+ staining in tubular casts IgM: Very mild focal very segmental granular glomerular staining, 1+ staining in arteries and 2+ in arterioles C1q: Very mild arteriolar staining C3: 1+ tubular basement membrane staining, 3+ in arteries and arterioles Fibrinogen: Negative [place] light chain: 3+ staining in tubular casts Lambda light chain: Very mild very segmental granular staining in 2 glomeruli, 3+ in tubular casts (Grading of the staining intensity is performed on a semiquantitative scale from 0 to 3+) All positive and negative controls were reviewed by the attending pathologist and showed appropriate reactivity. All immunohistochemistry, in situ hybridization, immunofluorescence, and histochemical tests were developed, and their performance characteristics were determined, by the [facility], Department of Pathology. One or more tests reported here have not been cleared by or approved by the US Food and Drug Administration (FDA). The FDA has determined that such clearance or approval is not necessary. This laboratory is regulated under CLIA as qualified to perform high-complexity testing. The tests are used for clinical purposes and should not be regarded as investigational or for research. ELECTRON MICROSCOPY Methylene blue/basic fuchsin stained semithin sections contain renal cortex with 2 glomeruli. One glomerulus is examined under the electron microscope. Ultrastructurally, no discrete electron-dense immune-type deposits are identified. The glomerular basement membrane (GBM) appears to be thickened and of normal texture. The GBM thickness is 797 +/- 140 nm. The normal GBM thickness established in our laboratory for males is 421 +/- 71 nm. Podocyte foot process effacement is moderate. No endothelial tubuloreticular inclusions are identified. Performed By: #### S URGP #### [facility] (DEFAULT) [address] [place] [address] Pathologic Diagnosis Normal [facility] Comment on above: Result Comment: Rosangela fam, [place], biopsy: Mild to moderately advanced chronic renal parenchymal changes with features of diabetic nephropathy with diabetic glomerulosclerosis. Acute tubular necrosis/injury. Note: The underlying etiology of the acute tubular necrosis cannot be determined from the biopsy; however, it is probably multifactorial. The patient had a 2-day history of intractable nausea and vomiting, potentially with volume depletion. This superimposed on the underlying diabetic nephropathy could lead to the acute kidney injury and the rapid rise of serum creatinine. Other potential possible etiologies include nephrotoxic medications and herbal remedies. Arteries demonstrate mild to focally moderate fibrointimal thickening. However, 1 small artery shows evidence of mucoid intimal thickening. This could be a manifestation of thrombotic microangiopathy. The patient does have anemia and hemoglobin on 06/05/2025 was 12 g/dL and dropped to 8.2 g/dL 10 days later. Workup for underlying etiologies for thrombotic microangiopathy (such as alternative complement pathway abnormalities and antiphospholipid antibodies) is recommended, if clinically indicated. On ultrastructural examination, the glomerular basement membrane is thickened (797 +/- 140 nm) and there is moderate podocyte foot process effacement. No evidence of glomerular proliferative lesions, immune complex deposits, or monoclonal immunoglobulin deposition is seen. Results were discussed with Dr. Yohannes Santiago on 06/16/2025. at 1734 EDT Performed By: #### S URGP #### [facility] (DEFAULT) [address] [address] Professional Interpretation Performed at: [facility] Comment on above: Result Comment: [facility] For Immediate Release to Patient's MyChart? Yes [address] [address] Performed By: #### S URGP #### [facility] (DEFAULT) [address] [address] Serum creatinine measurement (mass/volume)Ordered By: Fawad Bates on 06-15-2025 Creatinine [Mass/Vol] 4.01 mg/dL High 0.70-1.20 [facility] Serum glucose measurement (m ass/volume)Ordered By: Fawad Bates on 06-15-2025 Glucose [Mass/Vol] 246 mg/dL High 70-99 [facility] Serum or plasma calcium makeda urement (mass/volume)Ordered By: Fawad Bates on 06-15-2025 Calcium [Mass/Vol] 9.0 mg/dL 7.6-11.0 [facility] Serum or plasma urea nitroge n measurement (mass/volume)Ordered By: Fawad Bates on 06-15-2025 Urea nitrogen [Mass/Vol] 57 mg/dL High 4-19 [facility] Sodium levelOrdered By: Aroldo Bates on 06-15-2025 Sodium [Moles/Vol] 147 mmol/L High 133-145 [facility] White blood cell (WBC) count Ordered By: Fawad Bates on 06-15-2025 WBC (Bld) [#/Vol] 6.5 10*3/uL 4.4-11.0 [facility] 12 Lead EKGon 06-14-2025 12 Lead EKG Normal [facility] Activated partial thrombopla stin time (aPTT) in platelet poor plasma by coagulation aOrdered By: Geovanni Pathak on 06-14-2025 aPTT Coag (PPP) [Time] 26.8 s 24.1-36.2 [facility] Basic Metabolic Profile (BMP )on 06-14-2025 BUN/CRE 12.8 RATIO Normal 10-20 [facility] Comment on above: Performed By: #### L 500.2500 ####[facility] [address] [place], [address] Calcium [Mass/Vol] 9.0 mg/dL Normal 7.6-11.0 [facility] Comment on above: Performed By: #### L 500.2500 ####[facility] [address] [place], [address] Chloride [Moles/Vol] 114 mmol/L High 98-108 [facility] Comment on above: Performed By: #### L 500.2500 ####[facility] [address] [place], [address] CO2 [Moles/Vol] 20.5 mmol/L Low 21.0-32.0 [facility] Comment on above: Performed By: #### L 500.2500 ####[facility] [address] [place], [address] Creatinine [Mass/Vol] 5.97 mg/dL High 0.70-1.20 [facility] Comment on above: Performed By: #### L 500.2500 ####[facility] [address] [place], [address] ECRCL 11.76 ml/min Low 50-250 [facility] Comment on above: Performed By: #### L 500.2500 ####[facility] [address] [place], [address] GAP 15 Normal 5-15 [facility] Comment on above: Performed By: #### L 500.2500 ####[facility] [address] [place], [address] GFR/1.73 sq M.predicted among non-blacks MDRD (S/P/Bld) [Vol rate/Area] 9 mL/min/{1.73_m2} Low >60 [facility] Comment on above: Result Comment: mL/m in/1.73m2 CKD-EPI Creatinine Equation (2020) Performed By: #### L 500.2500 ####[facility] [address] [place], [address] Glucose [Mass/Vol] 104 mg/dL High 70-99 [facility] Comment on above: Performed By: #### L 500.2500 ####[facility] [address] [place], [address] Potassium [Moles/Vol] 4.3 mmol/L Normal 3.3-5.1 [facility] Comment on above: Performed By: #### L 500.2500 ####[facility] [address] [place], [address] Sodium [Moles/Vol] 149 mmol/L High 133-145 [facility] Comment on above: Performed By: #### L 500.2500 ####[facility] [address] [place], [address] Urea nitrogen [Mass/Vol] 77 mg/dL High 4-19 [facility] Comment on above: Performed By: #### L 500.2500 ####[facility] [address] [place], [address] Bedside Glucoseon 06-14-2025 FINGERSTICK GLU 344 mg/dL High 74-106 [facility] Comment on above: Result Comment: ANGELA VALDERRAMA OF PATIENT CARE PER NURSING PROTOCOL Performed By: #### L 501.080 ####[facility] [address] [place], [address] FINGERSTICK GLU 162 mg/dL High 74-106 [facility] Comment on above: Result Comment: ANGELA GEMENT OF PATIENT CARE PER NURSING PROTOCOL Performed By: #### L 501.080 ####[facility] [address] [place], [address] FINGERSTICK GLU 129 mg/dL High 74-106 [facility] Comment on above: Result Comment: ANGELA GEMENT OF PATIENT CARE PER NURSING PROTOCOL Performed By: #### L 501.080 ####[facility] [address] [place], [address] CBC W/Diff, Automatedon 09-2 Absolute Lymph 1.38 X10 3/uL Normal 0.83-4.51 [facility] Comment on above: Performed By: #### L 100.0100 ####[facility] [address] [place], [address] Absolute Neut 4.9 X10 3/uL Normal 2.0-7.7 [facility] Comment on above: Performed By: #### L 100.0100 ####[facility] [address] [place], [address] Basophils/100 WBC (Bld) 0.5 % Normal 0-1 [facility] Comment on above: Performed By: #### L 100.0100 ####[facility] [address] [place], [address] Eosinophils/100 WBC (Bld) 6.8 % High 0-5 [facility] Comment on above: Performed By: #### L 100.0100 ####[facility] [address] [place], [address] Erythrocyte distribution width (RBC) [Ratio] 12.7 % Normal 11.6-14.6 [facility] Comment on above: Performed By: #### L 100.0100 ####[facility] [address] [place], [address] Hematocrit (Bld) [Volume fraction] 26.5 % Low 40-54 [facility] Comment on above: Performed By: #### L 100.0100 ####[facility] [address] [place], [address] Hemoglobin (Bld) [Mass/Vol] 8.7 g/dL Low 13.0-16.5 [facility] Comment on above: Performed By: #### L 100.0100 ####[facility] [address] [place], [address] IG% 0.400 Normal 0.0-0.9 [facility] Comment on above: Result Comment: IG% - Immature Granulocytes (promyelocytes, myelocytes andmetamyelocytes) > 1% indicates that a LEFT SHIFT is Present. Performed By: #### L 100.0100 ####[facility] [address] [place], [address] Lymphocytes/100 WBC (Bld) 17.6 % Low 19-41 [facility] Comment on above: Performed By: #### L 100.0100 ####[facility] [address] [place], [address] MCH (RBC) [Entitic mass] 31.3 pg Normal 27.0-32.0 [facility] Comment on above: Performed By: #### L 100.0100 ####[facility] [address] [place], [address] MCHC (RBC) [Mass/Vol] 32.8 g/dL Normal 32-36 [facility] Comment on above: Performed By: #### L 100.0100 ####[facility] [address] [place], [address] MCV (RBC) [Entitic vol] 95.3 fL High 80-94 [facility] Comment on above: Performed By: #### L 100.0100 ####[facility] [address] [place], [address] Monocytes/100 WBC (Bld) 12.5 % High 0-10 [facility] Comment on above: Performed By: #### L 100.0100 ####[facility] [address] [place], [address] Neutrophils/100 WBC (Bld) 62.2 % Normal 47-70 [facility] Comment on above: Performed By: #### L 100.0100 ####[facility] [address] [place], [address] Nucleated RBC (Bld) [#/Vol] 0 10*3/uL Normal 0-5 [facility] Comment on above: Performed By: #### L 100.0100 ####[facility] [address] [place], [address] Platelet mean volume (Bld) [Entitic vol] 9.8 fL Normal 6.2-12.0 [facility] Comment on above: Performed By: #### L 100.0100 ####[facility] [address] [place], [address] Platelets (Bld) [#/Vol] 348 10*3/uL Normal 150-450 [facility] Comment on above: Performed By: #### L 100.0100 ####[facility] [address] [place], [address] RBC (Bld) [#/Vol] 2.78 10*6/uL Low 4.6-6.2 [facility] Comment on above: Performed By: #### L 100.0100 ####[facility] [address] [place], [address] RDW SD 44.7 fl High 35.1-43.9 [facility] Comment on above: Performed By: #### L 100.0100 ####[facility] [address] [place], [address] WBC (Bld) [#/Vol] 7.8 10*3/uL Normal 4.4-11.0 [facility] Comment on above: Performed By: #### L 100.0100 ####[facility] [address] [place], [address] Chest 1 View (Portable)on Chest 1 View (Portable) Normal [facility] L3890.6102on 06-14-2025 HEP B Surf Ag Non-Reactive Normal Nonreactive [facility] Comment on above: Order Comment: Reaso n for Exam: outpatient dialysisComments: can draw during dialysis today Result Comment: Reac tive: Presumptive evidence of HBV. Repeatedly reactivesamples must be confirmed using a neutralization test([employer] HBsAg Confirmatory Test)Non-Reactive: HBsAg not detected; does not exclude thepossibility of exposure to HBV Performed By: #### L 3890.6102 ####[facility] [address] [place], [place], [id number] Laboratory - Microbiology an d Antimicrobial susceptibilityOrdered By: Roland Cox on 06-14-2025 HBV surface Ag Ql (S) Non-Reactive Nonreactive [facility] MR/CRKUBVYA2ix 06-14-2025 MR/POSTOPAN2 Normal [facility] Operative Reporton Operative Report Normal [facility] Partial Thromboplast Timeon 06-14-2025 aPTT Coag (Bld) [Time] 26.8 s Normal 24.1-36.2 [facility] Comment on above: Performed By: #### L 300.4310, L300.3900 ####[facility] [address] [place], [address] Prothrombin Time w/INRon INR Coag (PPP) [Relative time] 1.0 {INR} Normal [facility] Comment on above: Performed By: #### L 300.4310, L300.3900 ####[facility] [address] [place], [address] PT Coag (PPP) [Time] 13.5 s Normal 11.7-14.9 [facility] Comment on above: Performed By: #### L 300.4310, L300.3900 ####[facility] [address] [place], [address] Prothrombin timeOrdered By: Geovanni Pathak on 06-14-2025 PT Coag (PPP) [Time] 13.5 s 11.7-14.9 [facility] Basic Metabolic Profile (BMP )on 06-13-2025 BUN/CRE 11.7 RATIO Normal 10-20 [facility] Comment on above: Performed By: #### L 100.0100, L500.2500 ####[facility] [address] [place], [address] Calcium [Mass/Vol] 8.4 mg/dL Normal 7.6-11.0 [facility] Comment on above: Performed By: #### L 100.0100, L500.2500 ####[facility] [address] [place], [address] Chloride [Moles/Vol] 112 mmol/L High 98-108 [facility] Comment on above: Performed By: #### L 100.0100, L500.2500 ####[facility] [address] [place], [address] CO2 [Moles/Vol] 22.0 mmol/L Normal 21.0-32.0 [facility] Comment on above: Performed By: #### L 100.0100, L500.2500 ####[facility] [address] [place], [address] Creatinine [Mass/Vol] 6.16 mg/dL High 0.70-1.20 [facility] Comment on above: Performed By: #### L 100.0100, L500.2500 ####[facility] [address] [place], [address] ECRCL 10.95 ml/min Low 50-250 [facility] Comment on above: Performed By: #### L 100.0100, L500.2500 ####[facility] [address] [place], [address] GAP 14 Normal 5-15 [facility] Comment on above: Performed By: #### L 100.0100, L500.2500 ####[facility] [address] [place], [address] GFR/1.73 sq M.predicted among non-blacks MDRD (S/P/Bld) [Vol rate/Area] 9 mL/min/{1.73_m2} Low >60 [facility] Comment on above: Result Comment: mL/m in/1.73m2 CKD-EPI Creatinine Equation (2020) Performed By: #### L 100.0100, L500.2500 ####[facility] [address] [place], [address] Glucose [Mass/Vol] 108 mg/dL High 70-99 [facility] Comment on above: Performed By: #### L 100.0100, L500.2500 ####[facility] [address] [place], [address] Potassium [Moles/Vol] 3.9 mmol/L Normal 3.3-5.1 [facility] Comment on above: Performed By: #### L 100.0100, L500.2500 ####[facility] [address] [place], [address] Sodium [Moles/Vol] 148 mmol/L High 133-145 [facility] Comment on above: Performed By: #### L 100.0100, L500.2500 ####[facility] [address] [place], [address] Urea nitrogen [Mass/Vol] 72 mg/dL High 4-19 [facility] Comment on above: Performed By: #### L 100.0100, L500.2500 ####[facility] [address] [place], [address] Bedside Glucoseon 06-13-2025 FINGERSTICK GLU 251 mg/dL High 74-106 [facility] Comment on above: Result Comment: ANGELA GEMENT OF PATIENT CARE PER NURSING PROTOCOL Performed By: #### L 501.080 ####[facility] [address] [place], [address] FINGERSTICK GLU 323 mg/dL High 74-106 [facility] Comment on above: Result Comment: ANGELA GEMENT OF PATIENT CARE PER NURSING PROTOCOL Performed By: #### L 501.080 ####[facility] [address] [place], [address] FINGERSTICK GLU 351 mg/dL High 74-106 [facility] Comment on above: Result Comment: ANGELA GEMENT OF PATIENT CARE PER NURSING PROTOCOL Performed By: #### L 501.080 ####[facility] [address] [place], [address] FINGERSTICK GLU 168 mg/dL High 74-106 [facility] Comment on above: Result Comment: ANGELA GEMENT OF PATIENT CARE PER NURSING PROTOCOL Performed By: #### L 501.080 ####[facility] [address] [place], [address] CBC W/Diff, Automatedon - Absolute Neut Normal 2.0-7.7 [facility] Comment on above: Result Comment: Cannevaeh ellnilton via OM: MD Ordered Performed By: #### L 100.0100, L500.2500 ####[facility] [address] [place], [address] HCT Normal 40-54 [facility] Comment on above: Result Comment: Canc elled via OM: MD Ordered Performed By: #### L 100.0100, L500.2500 ####[facility] [address] [place], [address] HGB Normal 13.0-16.5 [facility] Comment on above: Result Comment: Canc elled via OM: MD Ordered Performed By: #### L 100.0100, L500.2500 ####[facility] [address] [place], [address] MCH Normal 27.0-32.0 [facility] Comment on above: Result Comment: Canc elled via OM: MD Ordered Performed By: #### L 100.0100, L500.2500 ####[facility] [address] [place], [address] MCHC Normal 32-36 [facility] Comment on above: Result Comment: Canc elled via OM: MD Ordered Performed By: #### L 100.0100, L500.2500 ####[facility] [address] [place], [address] MCV Normal 80-94 [facility] Comment on above: Result Comment: Canc elled via OM: MD Ordered Performed By: #### L 100.0100, L500.2500 ####[facility] [address] [place], [address] NEUT% Normal 47-70 [facility] Comment on above: Result Comment: Canc elled via OM: MD Ordered Performed By: #### L 100.0100, L500.2500 ####[facility] [address] [place], [address] PLT Normal 150-450 [facility] Comment on above: Result Comment: Canc elled via OM: MD Ordered Performed By: #### L 100.0100, L500.2500 ####[facility] [address] [place], [address] RBC Normal 4.6-6.2 [facility] Comment on above: Result Comment: Canc elled via OM: MD Ordered Performed By: #### L 100.0100, L500.2500 ####[facility] [address] [place], [address] RDW CV Normal 11.6-14.6 [facility] Comment on above: Result Comment: Canc elled via OM: MD Ordered Performed By: #### L 100.0100, L500.2500 ####[facility] [address] [place], [address] RDW SD Normal 35.1-43.9 [facility] Comment on above: Result Comment: Canc elled via OM: MD Ordered Performed By: #### L 100.0100, L500.2500 ####[facility] [address] [place], [address] WBC Normal 4.4-11.0 [facility] Comment on above: Result Comment: Canc elled via OM: MD Ordered Performed By: #### L 100.0100, L500.2500 ####[facility] [address] [place], [address] Consultation - Surgicalon Consultation - Surgical Normal [facility] Prothrombin Time w/INRon INR Coag (PPP) [Relative time] 1.1 {INR} Normal [facility] Comment on above: Performed By: #### L 300.3900 ####[facility] [address] [place], [address] PT Coag (PPP) [Time] 14.1 s Normal 11.7-14.9 [facility] Comment on above: Performed By: #### L 300.3900 ####[facility] [address] [place], [address] Basic Metabolic Profile (BMP )on 06-12-2025 BUN/CRE 11.8 RATIO Normal 10-20 [facility] Comment on above: Performed By: #### L 500.2500, L100.0100 ####[facility] [address] [place], [address] Calcium [Mass/Vol] 8.4 mg/dL Normal 7.6-11.0 [facility] Comment on above: Performed By: #### L 500.2500, L100.0100 ####[facility] [address] [place], [address] Chloride [Moles/Vol] 109 mmol/L High 98-108 [facility] Comment on above: Performed By: #### L 500.2500, L100.0100 ####[facility] [address] [place], [address] CO2 [Moles/Vol] 21.9 mmol/L Normal 21.0-32.0 [facility] Comment on above: Performed By: #### L 500.2500, L100.0100 ####[facility] [address] [place], [address] Creatinine [Mass/Vol] 5.58 mg/dL High 0.70-1.20 [facility] Comment on above: Performed By: #### L 500.2500, L100.0100 ####[facility] [address] [place], [address] ECRCL 12.75 ml/min Low 50-250 [facility] Comment on above: Performed By: #### L 500.2500, L100.0100 ####[facility] [address] [place], [address] GAP 15 Normal 5-15 [facility] Comment on above: Performed By: #### L 500.2500, L100.0100 ####[facility] [address] [place], [address] GFR/1.73 sq M.predicted among non-blacks MDRD (S/P/Bld) [Vol rate/Area] 10 mL/min/{1.73_m2} Low >60 [facility] Comment on above: Result Comment: mL/m in/1.73m2 CKD-EPI Creatinine Equation (2020) Performed By: #### L 500.2500, L100.0100 ####[facility] [address] [place], [address] Glucose [Mass/Vol] 121 mg/dL High 70-99 [facility] Comment on above: Performed By: #### L 500.2500, L100.0100 ####[facility] [address] [place], [address] Potassium [Moles/Vol] 3.9 mmol/L Normal 3.3-5.1 [facility] Comment on above: Performed By: #### L 500.2500, L100.0100 ####[facility] [address] [place], [address] Sodium [Moles/Vol] 146 mmol/L High 133-145 [facility] Comment on above: Performed By: #### L 500.2500, L100.0100 ####[facility] [address] [place], [address] Urea nitrogen [Mass/Vol] 66 mg/dL High 4-19 [facility] Comment on above: Performed By: #### L 500.2500, L100.0100 ####[facility] [address] [place], [address] Bedside Glucoseon 06-12-2025 FINGERSTICK GLU 201 mg/dL High 74-106 [facility] Comment on above: Result Comment: ANGELA VALDERRAMA OF PATIENT CARE PER NURSING PROTOCOL Performed By: #### L 501.080 ####[facility] [address] [place], [address] FINGERSTICK GLU 325 mg/dL High 74-106 [facility] Comment on above: Result Comment: ANGELA GEMENT OF PATIENT CARE PER NURSING PROTOCOL Performed By: #### L 501.080 ####[facility] [address] [place], [address] FINGERSTICK GLU 332 mg/dL High 74-106 [facility] Comment on above: Result Comment: ANGELA GEMENT OF PATIENT CARE PER NURSING PROTOCOL Performed By: #### L 501.080 ####[facility] [address] [place], [address] FINGERSTICK GLU 117 mg/dL High 74-106 [facility] Comment on above: Result Comment: ANGELA GEMENT OF PATIENT CARE PER NURSING PROTOCOL Performed By: #### L 501.080 ####[facility] [address] [place], [address] CBC W/Diff, Automatedon 09-2 -2024 Absolute Lymph 1.09 X10 3/uL Normal 0.83-4.51 [facility] Comment on above: Performed By: #### L 500.2500, L100.0100 ####[facility] [address] [place], [address] Absolute Neut 3.5 X10 3/uL Normal 2.0-7.7 [facility] Comment on above: Performed By: #### L 500.2500, L100.0100 ####[facility] [address] [place], [address] Basophils/100 WBC (Bld) 0.3 % Normal 0-1 [facility] Comment on above: Performed By: #### L 500.2500, L100.0100 ####[facility] [address] [place], [address] Eosinophils/100 WBC (Bld) 6.4 % High 0-5 [facility] Comment on above: Performed By: #### L 500.2500, L100.0100 ####[facility] [address] [place], [address] Erythrocyte distribution width (RBC) [Ratio] 12.6 % Normal 11.6-14.6 [facility] Comment on above: Performed By: #### L 500.2500, L100.0100 ####[facility] [address] [place], [address] Hematocrit (Bld) [Volume fraction] 24.9 % Low 40-54 [facility] Comment on above: Performed By: #### L 500.2500, L100.0100 ####[facility] [address] [place], [address] Hemoglobin (Bld) [Mass/Vol] 8.4 g/dL Low 13.0-16.5 [facility] Comment on above: Performed By: #### L 500.2500, L100.0100 ####[facility] [address] [place], [address] IG% 0.500 Normal 0.0-0.9 [facility] Comment on above: Result Comment: IG% - Immature Granulocytes (promyelocytes, myelocytes andmetamyelocytes) > 1% indicates that a LEFT SHIFT is Present. Performed By: #### L 500.2500, L100.0100 ####[facility] [address] [place], [address] Lymphocytes/100 WBC (Bld) 17.9 % Low 19-41 [facility] Comment on above: Performed By: #### L 500.2500, L100.0100 ####[facility] [address] [place], [address] MCH (RBC) [Entitic mass] 31.5 pg Normal 27.0-32.0 [facility] Comment on above: Performed By: #### L 500.2500, L100.0100 ####[facility] [address] [place], [address] MCHC (RBC) [Mass/Vol] 33.7 g/dL Normal 32-36 [facility] Comment on above: Performed By: #### L 500.2500, L100.0100 ####[facility] [address] [place], [address] MCV (RBC) [Entitic vol] 93.3 fL Normal 80-94 [facility] Comment on above: Performed By: #### L 500.2500, L100.0100 ####[facility] [address] [place], [address] Monocytes/100 WBC (Bld) 16.9 % High 0-10 [facility] Comment on above: Performed By: #### L 500.2500, L100.0100 ####[facility] [address] [place], [address] Neutrophils/100 WBC (Bld) 58.0 % Normal 47-70 [facility] Comment on above: Performed By: #### L 500.2500, L100.0100 ####[facility] [address] [place], [address] Nucleated RBC (Bld) [#/Vol] 0 10*3/uL Normal 0-5 [facility] Comment on above: Performed By: #### L 500.2500, L100.0100 ####[facility] [address] [place], [address] Platelet mean volume (Bld) [Entitic vol] 10.2 fL Normal 6.2-12.0 [facility] Comment on above: Performed By: #### L 500.2500, L100.0100 ####[facility] [address] [place], [address] Platelets (Bld) [#/Vol] 277 10*3/uL Normal 150-450 [facility] Comment on above: Performed By: #### L 500.2500, L100.0100 ####[facility] [address] [place], [address] RBC (Bld) [#/Vol] 2.67 10*6/uL Low 4.6-6.2 [facility] Comment on above: Performed By: #### L 500.2500, L100.0100 ####[facility] [address] [place], [address] RDW SD 43.2 fl Normal 35.1-43.9 [facility] Comment on above: Performed By: #### L 500.2500, L100.0100 ####[facility] [address] [place], [address] WBC (Bld) [#/Vol] 6.1 10*3/uL Normal 4.4-11.0 [facility] Comment on above: Performed By: #### L 500.2500, L100.0100 ####[facility] [address] [place], [address] Basic Metabolic Profile (BMP )on 06-11-2025 BUN/CRE 11.7 RATIO Normal 10-20 [facility] Comment on above: Performed By: #### L 500.2500, L100.0100 ####[facility] [address] [place], [address] Calcium [Mass/Vol] 8.3 mg/dL Normal 7.6-11.0 [facility] Comment on above: Performed By: #### L 500.2500, L100.0100 ####[facility] [address] [place], [address] Chloride [Moles/Vol] 104 mmol/L Normal 98-108 [facility] Comment on above: Performed By: #### L 500.2500, L100.0100 ####[facility] [address] [place], [address] CO2 [Moles/Vol] 21.5 mmol/L Normal 21.0-32.0 [facility] Comment on above: Performed By: #### L 500.2500, L100.0100 ####[facility] [address] [place], [address] Creatinine [Mass/Vol] 7.70 mg/dL Invalid Interpretation Code 0.70-1.20 [facility] Comment on above: Result Comment: Crit ical Result(s) Called at: 06:17 06-11-25 TO CHANI READby: MARAL CORRALES??Results read back by same. Performed By: #### L 500.2500, L100.0100 ####[facility] [address] [place], [address] ECRCL 9.24 ml/min Invalid Interpretation Code 50-250 [facility] Comment on above: Performed By: #### L 500.2500, L100.0100 ####[facility] [address] [place], [address] GAP 17 High 5-15 [facility] Comment on above: Performed By: #### L 500.2500, L100.0100 ####[facility] [address] [place], [address] GFR/1.73 sq M.predicted among non-blacks MDRD (S/P/Bld) [Vol rate/Area] 7 mL/min/{1.73_m2} Low >60 [facility] Comment on above: Result Comment: mL/m in/1.73m2 CKD-EPI Creatinine Equation (2020) Performed By: #### L 500.2500, L100.0100 ####[facility] [address] [place], [address] Glucose [Mass/Vol] 160 mg/dL High 70-99 [facility] Comment on above: Performed By: #### L 500.2500, L100.0100 ####[facility] [address] [place], [address] Potassium [Moles/Vol] 3.8 mmol/L Normal 3.3-5.1 [facility] Comment on above: Performed By: #### L 500.2500, L100.0100 ####[facility] [address] [place], [address] Sodium [Moles/Vol] 143 mmol/L Normal 133-145 [facility] Comment on above: Performed By: #### L 500.2500, L100.0100 ####[facility] [address] [place], [address] Urea nitrogen [Mass/Vol] 90 mg/dL High 4-19 [facility] Comment on above: Performed By: #### L 500.2500, L100.0100 ####[facility] [address] [place], [address] Bedside Glucoseon 06-11-2025 FINGERSTICK GLU 367 mg/dL High 74-106 [facility] Comment on above: Result Comment: ANGELA GEMENT OF PATIENT CARE PER NURSING PROTOCOL Performed By: #### L 501.080 ####[facility] [address] [place], [address] FINGERSTICK GLU 324 mg/dL High 74-106 [facility] Comment on above: Result Comment: ANGELA GEMENT OF PATIENT CARE PER NURSING PROTOCOL Performed By: #### L 501.080 ####[facility] [address] [place], [address] FINGERSTICK GLU 199 mg/dL High 74-106 [facility] Comment on above: Result Comment: ANGELA GEMENT OF PATIENT CARE PER NURSING PROTOCOL Performed By: #### L 501.080 ####[facility] [address] [place], [address] FINGERSTICK GLU 167 mg/dL High 74-106 [facility] Comment on above: Result Comment: ANGELA VALDERRAMA OF PATIENT CARE PER NURSING PROTOCOL Performed By: #### L 501.080 ####[facility] [address] [place], [address] CBC W/Diff, Automatedon 05-18 Absolute Lymph 1.04 X10 3/uL Normal 0.83-4.51 [facility] Comment on above: Performed By: #### L 500.2500, L100.0100 ####[facility] [address] [place], [address] Absolute Neut 3.6 X10 3/uL Normal 2.0-7.7 [facility] Comment on above: Performed By: #### L 500.2500, L100.0100 ####[facility] [address] [place], [address] Basophils/100 WBC (Bld) 0.3 % Normal 0-1 [facility] Comment on above: Performed By: #### L 500.2500, L100.0100 ####[facility] [address] [place], [address] Eosinophils/100 WBC (Bld) 6.9 % High 0-5 [facility] Comment on above: Performed By: #### L 500.2500, L100.0100 ####[facility] [address] [place], [address] Erythrocyte distribution width (RBC) [Ratio] 12.7 % Normal 11.6-14.6 [facility] Comment on above: Performed By: #### L 500.2500, L100.0100 ####[facility] [address] [place], [address] Hematocrit (Bld) [Volume fraction] 25.4 % Low 40-54 [facility] Comment on above: Performed By: #### L 500.2500, L100.0100 ####[facility] [address] [place], [address] Hemoglobin (Bld) [Mass/Vol] 8.9 g/dL Low 13.0-16.5 [facility] Comment on above: Performed By: #### L 500.2500, L100.0100 ####[facility] [address] [place], [address] IG% 0.200 Normal 0.0-0.9 [facility] Comment on above: Result Comment: IG% - Immature Granulocytes (promyelocytes, myelocytes andmetamyelocytes) > 1% indicates that a LEFT SHIFT is Present. Performed By: #### L 500.2500, L100.0100 ####[facility] [address] [place], [address] Lymphocytes/100 WBC (Bld) 17.4 % Low 19-41 [facility] Comment on above: Performed By: #### L 500.2500, L100.0100 ####[facility] [address] [place], [address] MCH (RBC) [Entitic mass] 31.9 pg Normal 27.0-32.0 [facility] Comment on above: Performed By: #### L 500.2500, L100.0100 ####[facility] [address] [place], [address] MCHC (RBC) [Mass/Vol] 35.0 g/dL Normal 32-36 [facility] Comment on above: Performed By: #### L 500.2500, L100.0100 ####[facility] [address] [place], [address] MCV (RBC) [Entitic vol] 91.0 fL Normal 80-94 [facility] Comment on above: Performed By: #### L 500.2500, L100.0100 ####[facility] [address] [place], [address] Monocytes/100 WBC (Bld) 15.4 % High 0-10 [facility] Comment on above: Performed By: #### L 500.2500, L100.0100 ####[facility] [address] [place], [address] Neutrophils/100 WBC (Bld) 59.8 % Normal 47-70 [facility] Comment on above: Performed By: #### L 500.2500, L100.0100 ####[facility] [address] [place], [address] Nucleated RBC (Bld) [#/Vol] 0 10*3/uL Normal 0-5 [facility] Comment on above: Performed By: #### L 500.2500, L100.0100 ####[facility] [address] [place], [address] Platelet mean volume (Bld) [Entitic vol] 10.0 fL Normal 6.2-12.0 [facility] Comment on above: Performed By: #### L 500.2500, L100.0100 ####[facility] [address] [place], [address] Platelets (Bld) [#/Vol] 252 10*3/uL Normal 150-450 [facility] Comment on above: Performed By: #### L 500.2500, L100.0100 ####[facility] [address] [place], [address] RBC (Bld) [#/Vol] 2.79 10*6/uL Low 4.6-6.2 [facility] Comment on above: Performed By: #### L 500.2500, L100.0100 ####[facility] [address] [place], [address] RDW SD 41.8 fl Normal 35.1-43.9 [facility] Comment on above: Performed By: #### L 500.2500, L100.0100 ####[facility] [address] [place], [address] WBC (Bld) [#/Vol] 6.0 10*3/uL Normal 4.4-11.0 [facility] Comment on above: Performed By: #### L 500.2500, L100.0100 ####[facility] [address] [place], [address] Basic Metabolic Profile (BMP )on 06-10-2025 BUN/CRE 10.6 RATIO Normal 10-20 [facility] Comment on above: Performed By: #### L 500.2500 ####[facility] [address] [place], [address] Calcium [Mass/Vol] 8.5 mg/dL Normal 7.6-11.0 [facility] Comment on above: Performed By: #### L 500.2500 ####[facility] [address] [place], [address] Chloride [Moles/Vol] 103 mmol/L Normal 98-108 [facility] Comment on above: Performed By: #### L 500.2500 ####[facility] [address] [place], [place], [address] CO2 [Moles/Vol] 21.5 mmol/L Normal 21.0-32.0 [facility] Comment on above: Performed By: #### L 500.2500 ####[facility] [address] [place], [address] Creatinine [Mass/Vol] 6.79 mg/dL High 0.70-1.20 [facility] Comment on above: Performed By: #### L 500.2500 ####[facility] [address] [place], [address] ECRCL 10.48 ml/min Low 50-250 [facility] Comment on above: Performed By: #### L 500.2500 ####[facility] [address] [place], [address] GAP 16 High 5-15 [facility] Comment on above: Performed By: #### L 500.2500 ####[facility] [address] [place], [address] GFR/1.73 sq M.predicted among non-blacks MDRD (S/P/Bld) [Vol rate/Area] 8 mL/min/{1.73_m2} Low >60 [facility] Comment on above: Result Comment: mL/m in/1.73m2 CKD-EPI Creatinine Equation (2020) Performed By: #### L 500.2500 ####[facility] [address] [place], [address] Glucose [Mass/Vol] 258 mg/dL High 70-99 [facility] Comment on above: Performed By: #### L 500.2500 ####[facility] [address] [place], [address] Potassium [Moles/Vol] 4.1 mmol/L Normal 3.3-5.1 [facility] Comment on above: Performed By: #### L 500.2500 ####[facility] [address] [place], [address] Sodium [Moles/Vol] 141 mmol/L Normal 133-145 [facility] Comment on above: Performed By: #### L 500.2500 ####[facility] [address] [place], [address] Urea nitrogen [Mass/Vol] 72 mg/dL High 4-19 [facility] Comment on above: Performed By: #### L 500.2500 ####[facility] [address] [place], [address] Bedside Glucoseon 06-10-2025 FINGERSTICK GLU 199 mg/dL High 74-106 [facility] Comment on above: Result Comment: ANGELA GEMENT OF PATIENT CARE PER NURSING PROTOCOL Performed By: #### L 501.080 ####[facility] [address] [place], [address] FINGERSTICK GLU 332 mg/dL High [address] [facility] Comment on above: Result Comment: ANGELA GEMENT OF PATIENT CARE PER NURSING PROTOCOL Performed By: #### L 501.080 ####[facility] [address] [place], [address] FINGERSTICK GLU 272 mg/dL High -106 [facility] Comment on above: Result Comment: ANGELA GEMENT OF PATIENT CARE PER NURSING PROTOCOL Performed By: #### L 501.080 ####[facility] [address] [place], [address] FINGERSTICK GLU 230 mg/dL High [address] [place] [address] Comment on above: Result Comment: ANGELA GEMENT OF PATIENT CARE PER NURSING PROTOCOL Performed By: #### L 501.080 ####[facility] [address] [place], [address] ANCAon 06-09-2025 Atypical pANCA <1:20 Normal Neg:<1:20 [facility] Comment on above: Result Comment: The atypical pANCA pattern has been observed in asignificant percentage of patients with ulcerative colitis,primary sclerosing cholangitis and autoimmune hepatitis. Performed By: #### L 3100.5700, L3300.1200, L3400.4200, L3100.3425 ####[facility] [address] [place], [address] Cytoplasmic Ab <1:20 Normal Neg:<1:20 [facility] Comment on above: Performed By: #### L 3100.5700, L3300.1200, L3400.4200, L3100.3425 ####[facility] [address] [place], [place], [id number] Perinuclear Ab. <1:20 Normal Neg:<1:20 [facility] Comment on above: Result Comment: The presence of positive fluorescence exhibiting P-ANCA orC-ANCA patterns alone is not specific for the diagnosis ofWegener's Granulomatosis (WG) or microscopic polyangiitis.Decisions about treatment should not be based solely onANCA IFA results. The [employer] Consensusrecommends follow up testing of positive sera with both IN-3 and MPO-ANCA enzyme immunoassays. As many as 5% serumsamples are positive only by EIA. Ref. AM J Clin Vziqyx5981;111:507-513. Performed By: #### L 3100.5700, L3300.1200, L3400.4200, L3100.3429 ####[facility] [address] [place], [address] Anti-Glomerular Basement Mem bon 06-09-2025 ANTI-GLOM BM Ab < 0.2 Normal 0.0-0.9 [facility] Comment on above: Result Comment: Perf ormed at: - [facility] [address] [id number] Director: Ciaran Sethi PhD, Phone: [phone] at: - [facility] [address] [id number] Director: Yana Marin MD, Phone: [phone] Performed By: #### L 3100.5700, L3300.1200, L3400.4200, [id number] ####[facility] [address] [place], [place], [id number] Basic Metabolic Profile (BMP )on 06-09-2025 BUN/CRE 9.9 RATIO Low 10-20 [facility] Comment on above: Performed By: #### L 500.2500, L100.0100 ####[facility] [address] [place], [address] Calcium [Mass/Vol] 8.4 mg/dL Normal 7.6-11.0 [facility] Comment on above: Performed By: #### L 500.2500, L100.0100 ####[facility] [address] [place], [address] Chloride [Moles/Vol] 99 mmol/L Normal 98-108 [facility] Comment on above: Performed By: #### L 500.2500, L100.0100 ####[facility] [address] [place], [address] CO2 [Moles/Vol] 23.7 mmol/L Normal 21.0-32.0 [facility] Comment on above: Performed By: #### L 500.2500, L100.0100 ####[facility] [address] [place], [address] Creatinine [Mass/Vol] 7.96 mg/dL Invalid Interpretation Code 0.70-1.20 [facility] Comment on above: Result Comment: Crit ical Result(s) Called at:0620 by: LIONEL MARTÍNEZ TO PETEAKILDA??Results read back by same. Performed By: #### L 500.2500, L100.0100 ####[facility] [address] [place], [address] ECRCL 8.94 ml/min Invalid Interpretation Code 50-250 [facility] Comment on above: Performed By: #### L 500.2500, L100.0100 ####[facility] [address] [place], [address] GAP 16 High 5-15 [facility] Comment on above: Performed By: #### L 500.2500, L100.0100 ####[facility] [address] [place], [address] GFR/1.73 sq M.predicted among non-blacks MDRD (S/P/Bld) [Vol rate/Area] 7 mL/min/{1.73_m2} Low >60 [facility] Comment on above: Result Comment: mL/m in/1.73m2 CKD-EPI Creatinine Equation (2020) Performed By: #### L 500.2500, L100.0100 ####[facility] [address] [place], [address] Glucose [Mass/Vol] 199 mg/dL High 70-99 [facility] Comment on above: Performed By: #### L 500.2500, L100.0100 ####[facility] [address] [place], [address] Potassium [Moles/Vol] 4.4 mmol/L Normal 3.3-5.1 [facility] Comment on above: Performed By: #### L 500.2500, L100.0100 ####[facility] [address] [place], [address] Sodium [Moles/Vol] 139 mmol/L Normal 133-145 [facility] Comment on above: Performed By: #### L 500.2500, L100.0100 ####[facility] [address] [place], [address] Urea nitrogen [Mass/Vol] 79 mg/dL High 4-19 [facility] Comment on above: Performed By: #### L 500.2500, L100.0100 ####[facility] [address] [place], [address] Bedside Glucoseon 06-09-2025 FINGERSTICK GLU 334 mg/dL High 74-106 [facility] Comment on above: Result Comment: ANGELA GEMENT OF PATIENT CARE PER NURSING PROTOCOL Performed By: #### L 501.080 ####[facility] [address] [place], [address] FINGERSTICK GLU 265 mg/dL High 74-106 [facility] Comment on above: Result Comment: ANGELA GEMENT OF PATIENT CARE PER NURSING PROTOCOL Performed By: #### L 501.080 ####[facility] [address] [place], [address] FINGERSTICK GLU 128 mg/dL High 74-106 [facility] Comment on above: Result Comment: ANGELA GEMENT OF PATIENT CARE PER NURSING PROTOCOL Performed By: #### L 501.080 ####[facility] [address] [place], [address] FINGERSTICK GLU 184 mg/dL High 74-106 [facility] Comment on above: Result Comment: ANGELA GEMENT OF PATIENT CARE PER NURSING PROTOCOL Performed By: #### L 501.080 ####[facility] [address] [place], [address] CBC W/Diff, Automatedon 09-2 -2024 Absolute Lymph 0.63 X10 3/uL Low 0.83-4.51 [facility] Comment on above: Performed By: #### L 500.2500, L100.0100 ####[facility] [address] [place], [address] Absolute Neut 3.0 X10 3/uL Normal 2.0-7.7 [facility] Comment on above: Performed By: #### L 500.2500, L100.0100 ####[facility] [address] [place], [address] Basophils/100 WBC (Bld) 0.4 % Normal 0-1 [facility] Comment on above: Performed By: #### L 500.2500, L100.0100 ####[facility] [address] [place], [address] Eosinophils/100 WBC (Bld) 4.2 % Normal 0-5 [facility] Comment on above: Performed By: #### L 500.2500, L100.0100 ####[facility] [address] [place], [address] Erythrocyte distribution width (RBC) [Ratio] 12.7 % Normal 11.6-14.6 [facility] Comment on above: Performed By: #### L 500.2500, L100.0100 ####[facility] [address] [place], [address] Hematocrit (Bld) [Volume fraction] 28.9 % Low 40-54 [facility] Comment on above: Performed By: #### L 500.2500, L100.0100 ####[facility] [address] [place], [address] Hemoglobin (Bld) [Mass/Vol] 10.1 g/dL Low 13.0-16.5 [facility] Comment on above: Performed By: #### L 500.2500, L100.0100 ####[facility] [address] [place], [address] IG% 0.200 Normal 0.0-0.9 [facility] Comment on above: Result Comment: IG% - Immature Granulocytes (promyelocytes, myelocytes andmetamyelocytes) > 1% indicates that a LEFT SHIFT is Present. Performed By: #### L 500.2500, L100.0100 ####[facility] [address] [place], [address] Lymphocytes/100 WBC (Bld) 13.4 % Low 19-41 [facility] Comment on above: Performed By: #### L 500.2500, L100.0100 ####[facility] [address] [place], [address] MCH (RBC) [Entitic mass] 32.4 pg High 27.0-32.0 [facility] Comment on above: Performed By: #### L 500.2500, L100.0100 ####[facility] [address] [place], [address] MCHC (RBC) [Mass/Vol] 34.9 g/dL Normal 32-36 [facility] Comment on above: Performed By: #### L 500.2500, L100.0100 ####[facility] [address] [place], [address] MCV (RBC) [Entitic vol] 92.6 fL Normal 80-94 [facility] Comment on above: Performed By: #### L 500.2500, L100.0100 ####[facility] [address] [place], [address] Monocytes/100 WBC (Bld) 17.6 % High 0-10 [facility] Comment on above: Performed By: #### L 500.2500, L100.0100 ####[facility] [address] [place], [address] Neutrophils/100 WBC (Bld) 64.2 % Normal 47-70 [facility] Comment on above: Performed By: #### L 500.2500, L100.0100 ####[facility] [address] [place], [address] Nucleated RBC (Bld) [#/Vol] 0 10*3/uL Normal 0-5 [facility] Comment on above: Performed By: #### L 500.2500, L100.0100 ####[facility] [address] [place], [address] Platelet mean volume (Bld) [Entitic vol] 10.3 fL Normal 6.2-12.0 [facility] Comment on above: Performed By: #### L 500.2500, L100.0100 ####[facility] [address] [place], [address] Platelets (Bld) [#/Vol] 227 10*3/uL Normal 150-450 [facility] Comment on above: Performed By: #### L 500.2500, L100.0100 ####[facility] [address] [place], [address] RBC (Bld) [#/Vol] 3.12 10*6/uL Low 4.6-6.2 [facility] Comment on above: Performed By: #### L 500.2500, L100.0100 ####[facility] [address] [place], [address] RDW SD 43.1 fl Normal 35.1-43.9 [facility] Comment on above: Performed By: #### L 500.2500, L100.0100 ####[facility] [address] [place], [address] WBC (Bld) [#/Vol] 4.7 10*3/uL Normal 4.4-11.0 [facility] Comment on above: Performed By: #### L 500.2500, L100.0100 ####[facility] [address] [place], [address] Complement C3on 06-09-2025 COMP C3 130 mg/dL Normal 82-167 [facility] Comment on above: Performed By: #### L 3100.5700, L3300.1200, L3400.4200, L3100.3425 ####[facility] [address] [place], [address] NATHAN + Protein Elect, Serumon 06-09-2025 Albumin [Mass/Vol] 2.3 g/dL Low 2.9-4.4 [facility] Comment on above: Performed By: #### L 3100.5700, L3300.1200, L3400.4200, L3100.3425 ####[facility] [address] [place], [address] Albumin/Globulin [Mass ratio] 1.1 {ratio} Normal 0.7-1.7 [facility] Comment on above: Performed By: #### L 3100.5700, L3300.1200, L3400.4200, L3100.3425 ####[facility] [address] [place], [address] QYGQS-2-VINO 0.2 g/dL Normal 0.0-0.4 [facility] Comment on above: Performed By: #### L 3100.5700, L3300.1200, L3400.4200, L3100.3425 ####[facility] [address] [place], [address] DWFRY-2-EDBW 0.9 g/dL Normal 0.4-1.0 [facility] Comment on above: Performed By: #### L 3100.5700, L3300.1200, L3400.4200, L3100.3425 ####[facility] [address] [place], [address] BETA GLOBULIN 0.7 g/dL Normal 0.7-1.3 [facility] Comment on above: Performed By: #### L 3100.5700, L3300.1200, L3400.4200, L3100.3425 ####[facility] [address] [place], [address] GAMMA GLOBULIN 0.3 g/dL Low 0.4-1.8 [facility] Comment on above: Performed By: #### L 3100.5700, L3300.1200, L3400.4200, L3100.3425 ####[facility] [address] [place], [address] Globulin (S) [Mass/Vol] 2.1 g/dL Abnormal 2.2-3.9 [facility] Comment on above: Performed By: #### L 3100.5700, L3300.1200, L3400.4200, L3100.3425 ####[facility] [address] [place], [address] NATHAN RESULT,S Comment Normal . [facility] Comment on above: Result Comment: No m onoclonality detected. Performed By: #### L 3100.5700, L3300.1200, L3400.4200, L3100.3425 ####[facility] [address] [place], [address] IMMUNOGLOB A QN 196 mg/dL Normal 61-437 [facility] Comment on above: Performed By: #### L 3100.5700, L3300.1200, L3400.4200, L3100.3425 ####[facility] [address] [place], [address] IMMUNOGLOB G QN 303 mg/dL Low 603-1613 [facility] Comment on above: Performed By: #### L 3100.5700, L3300.1200, L3400.4200, L3100.3425 ####[facility] [address] [place], [address] IMMUNOGLOB M QN 21 mg/dL Normal 15-143 [facility] Comment on above: Result Comment: Resu lt confirmed on concentration. Performed By: #### L 3100.5700, L3300.1200, L3400.4200, L3100.3425 ####[facility] [address] [place], [address] M-Guillermo Not Observed Normal Not Observed [facility] Comment on above: Performed By: #### L 3100.5700, L3300.1200, L3400.4200, L3100.3425 ####[facility] [address] [place], [address] NOTE: Comment Normal . [facility] Comment on above: Result Comment: Prot ein electrophoresis scan will follow via computer,mail, or plastics factory worker delivery. Performed By: #### L 3100.5700, L3300.1200, L3400.4200, L3100.3425 ####[facility] [address] [place], [address] Protein [Mass/Vol] 4.4 g/dL Low 6.0-8.5 [facility] Comment on above: Performed By: #### L 3100.5700, L3300.1200, L3400.4200, L3100.3425 ####[facility] [address] [place], [address] Anti-dsDNA Abon 06-08-2025 ANTI-DNA (DS)AB <1 Normal 0-9 [facility] Comment on above: Result Comment: Nega tive <5 Equivocal 5 - 9 Positive >9Performed at: [facility] [address] [id number] Director: Ciaran Sethi PhD, Phone: [phone] Performed By: #### L 3100.5500 ####[facility] [address] [place], [address] Basic Metabolic Profile (BMP )on 06-08-2025 BUN/CRE 9.2 RATIO Low 10-20 [facility] Comment on above: Performed By: #### L 500.2500, L300.3900, L100.0100 ####[facility] [address] [place], [address] Calcium [Mass/Vol] 8.2 mg/dL Normal 7.6-11.0 [facility] Comment on above: Performed By: #### L 500.2500, L300.3900, L100.0100 ####[facility] [address] [place], [address] Chloride [Moles/Vol] 98 mmol/L Normal 98-108 [facility] Comment on above: Performed By: #### L 500.2500, L300.3900, L100.0100 ####[facility] [address] [place], [address] CO2 [Moles/Vol] 23.2 mmol/L Normal 21.0-32.0 [facility] Comment on above: Performed By: #### L 500.2500, L300.3900, L100.0100 ####[facility] [address] [place], [address] Creatinine [Mass/Vol] 8.87 mg/dL Invalid Interpretation Code 0.70-1.20 [facility] Comment on above: Result Comment: Crit ical Result(s) Called at: 0623 by:??LIONEL JAMIL Results read back by same. Performed By: #### L 500.2500, L300.3900, L100.0100 ####[facility] [address] [place], [address] ECRCL 8.02 ml/min Invalid Interpretation Code 50-250 [facility] Comment on above: Performed By: #### L 500.2500, L300.3900, L100.0100 ####[facility] [address] [place], [address] GAP 19 High 5-15 [facility] Comment on above: Performed By: #### L 500.2500, L300.3900, L100.0100 ####[facility] [address] [place], [address] GFR/1.73 sq M.predicted among non-blacks MDRD (S/P/Bld) [Vol rate/Area] 6 mL/min/{1.73_m2} Low >60 [facility] Comment on above: Result Comment: mL/m in/1.73m2 CKD-EPI Creatinine Equation (2020) Performed By: #### L 500.2500, L300.3900, L100.0100 ####[facility] [address] [place], [address] Glucose [Mass/Vol] 93 mg/dL Normal 70-99 [facility] Comment on above: Performed By: #### L 500.2500, L300.3900, L100.0100 ####[facility] [address] [place], [address] Potassium [Moles/Vol] 4.2 mmol/L Normal 3.3-5.1 [facility] Comment on above: Performed By: #### L 500.2500, L300.3900, L100.0100 ####[facility] [address] [place], [address] Sodium [Moles/Vol] 140 mmol/L Normal 133-145 [facility] Comment on above: Performed By: #### L 500.2500, L300.3900, L100.0100 ####[facility] [address] [place], [address] Urea nitrogen [Mass/Vol] 82 mg/dL High 4-19 [facility] Comment on above: Performed By: #### L 500.2500, L300.3900, L100.0100 ####[facility] [address] [place], [address] Bedside Glucoseon 06-08-2025 FINGERSTICK GLU 266 mg/dL High 74-106 [facility] Comment on above: Result Comment: ANGELA GEMENT OF PATIENT CARE PER NURSING PROTOCOL Performed By: #### L 501.080 ####[facility] [address] [place], [address] FINGERSTICK GLU 240 mg/dL High 74-106 [facility] Comment on above: Result Comment: ANGELA GEMENT OF PATIENT CARE PER NURSING PROTOCOL Performed By: #### L 501.080 ####[facility] [address] [place], [address] FINGERSTICK GLU 99 mg/dL Normal 74-106 [facility] Comment on above: Result Comment: ANGELA GEMENT OF PATIENT CARE PER NURSING PROTOCOL Performed By: #### L 501.080 ####[facility] [address] [place], [address] FINGERSTICK GLU 95 mg/dL Normal 74-106 [facility] Comment on above: Result Comment: ANGELA GEMENT OF PATIENT CARE PER NURSING PROTOCOL Performed By: #### L 501.080 ####[facility] [address] [place], [address] FINGERSTICK GLU 153 mg/dL High 74-106 [facility] Comment on above: Result Comment: ANGELA GEMENT OF PATIENT CARE PER NURSING PROTOCOL Performed By: #### L 501.080 ####[facility] [address] [place], [address] CBC W/Diff, Automatedon 09-2 -2024 Absolute Lymph 0.73 X10 3/uL Low 0.83-4.51 [facility] Comment on above: Performed By: #### L 500.2500, L300.3900, L100.0100 ####[facility] [facility] [address] [place], [address] Absolute Neut 3.8 X10 3/uL Normal 2.0-7.7 [facility] Comment on above: Performed By: #### L 500.2500, L300.3900, L100.0100 ####[facility] [address] [place], [address] Basophils/100 WBC (Bld) 0.3 % Normal 0-1 [facility] Comment on above: Performed By: #### L 500.2500, L300.3900, L100.0100 ####[facility] [address] [place], [address] Eosinophils/100 WBC (Bld) 5.0 % Normal 0-5 [facility] Comment on above: Performed By: #### L 500.2500, L300.3900, L100.0100 ####[facility] [address] [place], [address] Erythrocyte distribution width (RBC) [Ratio] 12.9 % Normal 11.6-14.6 [facility] Comment on above: Performed By: #### L 500.2500, L300.3900, L100.0100 ####[facility] [address] [place], [address] Hematocrit (Bld) [Volume fraction] 27.5 % Low 40-54 [facility] Comment on above: Performed By: #### L 500.2500, L300.3900, L100.0100 ####[facility] [address] [place], [address] Hemoglobin (Bld) [Mass/Vol] 9.6 g/dL Low 13.0-16.5 [facility] Comment on above: Performed By: #### L 500.2500, L300.3900, L100.0100 ####[facility] [address] [place], [address] IG% 0.300 Normal 0.0-0.9 [facility] Comment on above: Result Comment: IG% - Immature Granulocytes (promyelocytes, myelocytes andmetamyelocytes) > 1% indicates that a LEFT SHIFT is Present. Performed By: #### L 500.2500, L300.3900, L100.0100 ####[facility] [address] [place], [address] Lymphocytes/100 WBC (Bld) 12.7 % Low 19-41 [facility] Comment on above: Performed By: #### L 500.2500, L300.3900, L100.0100 ####[facility] [address] [place], [address] MCH (RBC) [Entitic mass] 32.0 pg Normal 27.0-32.0 [facility] Comment on above: Performed By: #### L 500.2500, L300.3900, L100.0100 ####[facility] [address] [place], [address] MCHC (RBC) [Mass/Vol] 34.9 g/dL Normal 32-36 [facility] Comment on above: Performed By: #### L 500.2500, L300.3900, L100.0100 ####[facility] [address] [place], [address] MCV (RBC) [Entitic vol] 91.7 fL Normal 80-94 [facility] Comment on above: Performed By: #### L 500.2500, L300.3900, L100.0100 ####[facility] [address] [place], [address] Monocytes/100 WBC (Bld) 15.0 % High 0-10 [facility] Comment on above: Performed By: #### L 500.2500, L300.3900, L100.0100 ####[facility] [address] [place], [address] Neutrophils/100 WBC (Bld) 66.7 % Normal 47-70 [facility] Comment on above: Performed By: #### L 500.2500, L300.3900, L100.0100 ####[facility] [address] [place], [address] Nucleated RBC (Bld) [#/Vol] 0 10*3/uL Normal 0-5 [facility] Comment on above: Performed By: #### L 500.2500, L300.3900, L100.0100 ####[facility] [address] [place], [address] Platelet mean volume (Bld) [Entitic vol] 10.4 fL Normal 6.2-12.0 [facility] Comment on above: Performed By: #### L 500.2500, L300.3900, L100.0100 ####[facility] [address] [place], [address] Platelets (Bld) [#/Vol] 220 10*3/uL Normal 150-450 [facility] Comment on above: Performed By: #### L 500.2500, L300.3900, L100.0100 ####[facility] [address] [place], [address] RBC (Bld) [#/Vol] 3.00 10*6/uL Low 4.6-6.2 [facility] Comment on above: Performed By: #### L 500.2500, L300.3900, L100.0100 ####[facility] [address] [place], [address] RDW SD 42.7 fl Normal 35.1-43.9 [facility] Comment on above: Performed By: #### L 500.2500, L300.3900, L100.0100 ####[facility] [address] [place], [address] WBC (Bld) [#/Vol] 5.8 10*3/uL Normal 4.4-11.0 [facility] Comment on above: Performed By: #### L 500.2500, L300.3900, L100.0100 ####[facility] [address] [place], [address] Prothrombin Time w/INRon INR Coag (PPP) [Relative time] 1.0 {INR} Normal [facility] Comment on above: Performed By: #### L 500.2500, L300.3900, L100.0100 ####[facility] [address] [place], [address] PT Coag (PPP) [Time] 13.4 s Normal 11.7-14.9 [facility] Comment on above: Performed By: #### L 500.2500, L300.3900, L100.0100 ####[facility] [address] [place], [address] Albumin Elph [Mass/Vol]Order ed By: Yohannes Santiago on 06-07-2025 Albumin [Mass/Vol] 2.3 g/dL Low 2.9-4.4 [facility] Bedside Glucoseon 06-07-2025 FINGERSTICK GLU 94 mg/dL Normal 74-106 [facility] Comment on above: Result Comment: ANGELA GEMENT OF PATIENT CARE PER NURSING PROTOCOL Performed By: #### L 501.080 ####[facility] [address] [place], [address] FINGERSTICK GLU 133 mg/dL High 74-106 [facility] Comment on above: Result Comment: ANGELA GEMENT OF PATIENT CARE PER NURSING PROTOCOL Performed By: #### L 501.080 ####[facility] [address] [place], [address] FINGERSTICK GLU 97 mg/dL Normal 74-106 [facility] Comment on above: Result Comment: ANGELA GEMENT OF PATIENT CARE PER NURSING PROTOCOL Performed By: #### L 501.080 ####[facility] [address] [place], [address] Bilirubin, totalOrdered By: Richi Hope on 06-07-2025 Bilirubin [Mass/Vol] 0.24 mg/dL 0.00-1.30 [facility] CBC W/Diff, Automatedon 05-18 Absolute Lymph 1.03 X10 3/uL Normal 0.83-4.51 [facility] Comment on above: Performed By: #### L 501.5200, L500.4050, L100.0100 ####[facility] [address] [place], [address] Absolute Neut 6.0 X10 3/uL Normal 2.0-7.7 [facility] Comment on above: Performed By: #### L 501.5200, L500.4050, L100.0100 ####[facility] [address] [place], [address] Basophils/100 WBC (Bld) 0.1 % Normal 0-1 [facility] Comment on above: Performed By: #### L 501.5200, L500.4050, L100.0100 ####[facility] [address] [place], [address] Eosinophils/100 WBC (Bld) 1.9 % Normal 0-5 [facility] Comment on above: Performed By: #### L 501.5200, L500.4050, L100.0100 ####[facility] [address] [place], [address] Erythrocyte distribution width (RBC) [Ratio] 13.2 % Normal 11.6-14.6 [facility] Comment on above: Performed By: #### L 501.5200, L500.4050, L100.0100 ####[facility] [address] [place], [address] Hematocrit (Bld) [Volume fraction] 26.7 % Low 40-54 [facility] Comment on above: Performed By: #### L 501.5200, L500.4050, L100.0100 ####[facility] [address] [place], [address] Hemoglobin (Bld) [Mass/Vol] 9.4 g/dL Low 13.0-16.5 [facility] Comment on above: Performed By: #### L 501.5200, L500.4050, L100.0100 ####[facility] [address] [place], [address] IG% 0.400 Normal 0.0-0.9 [facility] Comment on above: Result Comment: IG% - Immature Granulocytes (promyelocytes, myelocytes andmetamyelocytes) > 1% indicates that a LEFT SHIFT is Present. Performed By: #### L 501.5200, L500.4050, L100.0100 ####[facility] [address] [place], [address] Lymphocytes/100 WBC (Bld) 12.1 % Low 19-41 [facility] Comment on above: Performed By: #### L 501.5200, L500.4050, L100.0100 ####[facility] [address] [place], [address] MCH (RBC) [Entitic mass] 32.0 pg Normal 27.0-32.0 [facility] Comment on above: Performed By: #### L 501.5200, L500.4050, L100.0100 ####[facility] [address] [place], [address] MCHC (RBC) [Mass/Vol] 35.2 g/dL Normal 32-36 [facility] Comment on above: Performed By: #### L 501.5200, L500.4050, L100.0100 ####[facility] [address] [place], [address] MCV (RBC) [Entitic vol] 90.8 fL Normal 80-[address] [facility] Comment on above: Performed By: #### L 501.5200, L500.4050, L100.0100 ####[facility] [address] [place], [address] Monocytes/100 WBC (Bld) 14.5 % High 0-10 [facility] Comment on above: Performed By: #### L 501.5200, L500.4050, L100.0100 ####[facility] [address] [place], [address] Neutrophils/100 WBC (Bld) 71.0 % High 47-70 [facility] Comment on above: Performed By: #### L 501.5200, L500.4050, L100.0100 ####[facility] [address] [place], [address] Nucleated RBC (Bld) [#/Vol] 0 10*3/uL Normal 0-5 [facility] Comment on above: Performed By: #### L 501.5200, L500.4050, L100.0100 ####[facility] [address] [place], [address] Platelet mean volume (Bld) [Entitic vol] 10.1 fL Normal 6.2-12.0 [facility] Comment on above: Performed By: #### L 501.5200, L500.4050, L100.0100 ####[facility] [address] [place], [address] Platelets (Bld) [#/Vol] 231 10*3/uL Normal 150-450 [facility] Comment on above: Performed By: #### L 501.5200, L500.4050, L100.0100 ####[facility] [address] [place], [address] RBC (Bld) [#/Vol] 2.94 10*6/uL Low 4.6-6.2 [facility] Comment on above: Performed By: #### L 501.5200, L500.4050, L100.0100 ####[facility] [address] [place], [address] RDW SD 43.7 fl Normal 35.1-43.9 [facility] Comment on above: Performed By: #### L 501.5200, L500.4050, L100.0100 ####[facility] [address] [place], [address] WBC (Bld) [#/Vol] 8.5 10*3/uL Normal 4.4-11.0 [facility] Comment on above: Performed By: #### L 501.5200, L500.4050, L100.0100 ####[facility] [address] [place], [address] CXR for Line Placementon CXR for Line Placement Normal [facility] Comprehensive Metabolic Prof ilon 06-07-2025 Albumin [Mass/Vol] 2.8 g/dL Low 3.4-4.8 [facility] Comment on above: Performed By: #### L 501.5200, L500.4050, L100.0100 ####[facility] [address] [place], [address] Albumin/Globulin [Mass ratio] 1.5 {ratio} Normal 0.9-2.4 [facility] Comment on above: Performed By: #### L 501.5200, L500.4050, L100.0100 ####[facility] [address] [place], [address] ALK PHOS 53 U/L Normal 40-129 [facility] Comment on above: Performed By: #### L 501.5200, L500.4050, L100.0100 ####[facility] [address] [place], [address] ALT [Catalytic activity/Vol] 20 U/L Normal <=46 [facility] Comment on above: Performed By: #### L 501.5200, L500.4050, L100.0100 ####[facility] [address] [place], [address] AST [Catalytic activity/Vol] 22 U/L Normal <=37 [facility] Comment on above: Performed By: #### L 501.5200, L500.4050, L100.0100 ####[facility] [address] [place], [address] Bilirubin [Mass/Vol] 0.24 mg/dL Normal 0.00-1.30 [facility] Comment on above: Performed By: #### L 501.5200, L500.4050, L100.0100 ####[facility] [address] [place], [address] BUN/CRE 9.2 RATIO Low 10-20 [facility] Comment on above: Performed By: #### L 501.5200, L500.4050, L100.0100 ####[facility] [address] [place], [address] Calcium [Mass/Vol] 8.0 mg/dL Normal 7.6-11.0 [facility] Comment on above: Performed By: #### L 501.5200, L500.4050, L100.0100 ####[facility] [address] [place], [address] Chloride [Moles/Vol] 94 mmol/L Low 98-108 [facility] Comment on above: Performed By: #### L 501.5200, L500.4050, L100.0100 ####[facility] [address] [place], [address] CO2 [Moles/Vol] 24.3 mmol/L Normal 21.0-32.0 [facility] Comment on above: Performed By: #### L 501.5200, L500.4050, L100.0100 ####[facility] [address] [place], [address] Creatinine [Mass/Vol] 10.70 mg/dL Invalid Interpretation Code 0.70-1.20 [facility] Comment on above: Result Comment: Crit ical Result(s) Called at 0550: by: ROLAND BYERS. ??Results read back by same. Performed By: #### L 501.5200, L500.4050, L100.0100 ####[facility] [address] [place], [address] ECRCL 6.65 ml/min Invalid Interpretation Code 50-250 [facility] Comment on above: Performed By: #### L 501.5200, L500.4050, L100.0100 ####[facility] [address] [place], [address] GAP 22 High 5-15 [facility] Comment on above: Performed By: #### L 501.5200, L500.4050, L100.0100 ####[facility] [address] [place], [address] GFR/1.73 sq M.predicted among non-blacks MDRD (S/P/Bld) [Vol rate/Area] 5 mL/min/{1.73_m2} Low >60 [facility] Comment on above: Result Comment: mL/m in/1.73m2 CKD-EPI Creatinine Equation (2020) Performed By: #### L 501.5200, L500.4050, L100.0100 ####[facility] [address] [place], [address] Globulin (S) [Mass/Vol] 1.9 g/dL Low 2.2-4.[address] [facility] Comment on above: Performed By: #### L 501.5200, L500.4050, L100.0100 ####[facility] [address] [place], [address] Glucose [Mass/Vol] 62 mg/dL Low 70-99 [facility] Comment on above: Performed By: #### L 501.5200, L500.4050, L100.0100 ####[facility] [address] [place], [address] Potassium [Moles/Vol] 3.8 mmol/L Normal 3.3-5.1 [facility] Comment on above: Performed By: #### L 501.5200, L500.4050, L100.0100 ####[facility] [address] [place], [address] Sodium [Moles/Vol] 140 mmol/L Normal 133-145 [facility] Comment on above: Performed By: #### L 501.5200, L500.4050, L100.0100 ####[facility] [address] [place], [address] T PROT 4.7 g/dL Low 5.9-8.4 [facility] Comment on above: Performed By: #### L 501.5200, L500.4050, L100.0100 ####[facility] [address] [place], [address] Urea nitrogen [Mass/Vol] 98 mg/dL High 4-19 [facility] Comment on above: Performed By: #### L 501.5200, L500.4050, L100.0100 ####[facility] [address] [place], [address] Electrocardiogram reportOrde red By: Jeffrey Lord on 06-07-2025 EKG study [facility] Work Phone: [phone] EKG study [facility] Work Phone: [phone] Interpretation of serum or p lasma protein pattern by immunofixation (narrative resultOrdered By: Yohannes Santiago on 06-07-2025 Protein Fractions Immunofixation Shadi [Interp] Not Observed g/dL Not Observed [facility] Magnesiumon 06-07-2025 Magnesium [Mass/Vol] 1.7 mg/dL Normal 1.5-2.2 [facility] Comment on above: Performed By: #### L 501.5200, L500.4050, L100.0100 ####[facility] [address] [place], [address] Magnesium measurement (mass/ volume)Ordered By: Richi Hope on 06-07-2025 Magnesium (Unsp spec) [Mass/Vol] 1.7 mg/dL 1.5-2.2 [facility] No Panel InformationOrdered By: Yohannes Santiago on 06-07-2025 Addendum Document Comment . [facility] No Panel InformationOrdered By: Richi Hope on 06-07-2025 22 U/L <38 [facility] Procedure Reporton Procedure Report Normal [facility] Serum DNA double strand anti body assay (units/volume)Ordered By: Yohannes Santiago on 06-07-2025 DNA double strand Ab Qn (S) [IU]/mL 0-9 [facility] Serum classic neutrophil cyt oplasmic antibody assay (units/volume)Ordered By: Yohannes Santiago on 06-07-2025 Neutrophil cytoplasmic Ab.classic Qn (S) <1:20 titer Neg:<1:20 [facility] Serum globulin measurement ( mass/volume)Ordered By: Yohannes Santiago on 06-07-2025 Globulin (S) [Mass/Vol] 2.1 g/dL Low 2.2-3.9 [facility] Serum glomerular basement me mbrane antibody assay (units/volume)Ordered By: Yohannes Santiago on 06-07-2025 Glomerular basement membrane Ab Qn (S) < 0.2 units 0.0-0.9 [facility] Serum or plasma IgA measurem ent (mass/volume)Ordered By: Yohannes Santiago on 06-07-2025 IgA [Mass/Vol] 196 mg/dL 61-437 [facility] Serum or plasma IgG measurem ent (mass/volume)Ordered By: Yohannes Santiago on 06-07-2025 IgG [Mass/Vol] 303 mg/dL Low 603-1613 [facility] Serum or plasma alanine denis otransferase (ALT) measurementOrdered By: Richi Hope on 06-07-2025 ALT [Catalytic activity/Vol] 20 U/L <47 [facility] Serum or plasma albumin makeda urement (mass/volume)Ordered By: Richi Hope on 06-07-2025 Albumin [Mass/Vol] 2.8 g/dL Low 3.4-4.8 [facility] Serum or plasma albumin/glob ulin mass ratioOrdered By: Richi Hope on 06-07-2025 Albumin/Globulin [Mass ratio] 1.5 {ratio} 0.9-2.4 [facility] Serum or plasma alkaline neisha sphatase measurementOrdered By: Richi Hope on 06-07-2025 ALP [Catalytic activity/Vol] 53 U/L 40-129 [facility] Serum or plasma alpha 1 glob ulin measurement by electrophoresis (mass/volume)Ordered By: Yohannes Santiago on 06-07-2025 Alpha 1 globulin Elph [Mass/Vol] 0.2 g/dL 0.0-0.4 [facility] Alpha 1 globulin Elph [Mass/Vol] 0.9 g/dL 0.4-1.0 [facility] Serum or plasma beta globuli n measurement by electrophoresis (mass/volume)Ordered By: Yohannes Santiago on 06-07-2025 Beta globulin Elph [Mass/Vol] 0.7 g/dL 0.7-1.3 [facility] Serum or plasma gamma globul in measurement by electrophoresis (mass/volume)Ordered By: Yohannes Santiago on 06-07-2025 Gamma globulin Elph [Mass/Vol] 0.3 g/dL Low 0.4-1.8 [facility] Serum or plasma immunoelectr ophoresis interpretation (nominal result)Ordered By: Yohannes Santiago on 06-07-2025 Interpretation IEP [Interp] Comment . [facility] Serum or plasma protein makeda urement (mass/volume)Ordered By: Yohannes Santiago on 06-07-2025 Protein [Mass/Vol] 4.4 g/dL Low 6.0-8.5 [facility] Serum perinuclear neutrophil cytoplasmic antibody titer by immunofluorescenceOrdered By: Yohannes Santiago on 06-07-2025 Neutrophil cytoplasmic Ab.perinuclear IF (S) [Titer] <1:20 titer Neg:<1:20 [facility] Total proteinOrdered By: Jaciel Hope on 06-07-2025 Protein [Mass/Vol] 4.7 g/dL Low 5.9-8.4 [facility] Basic Metabolic Profile (BMP )on 06-06-2025 BUN Normal 4-19 [facility] Comment on above: Result Comment: DUPL ICATE-CMP DONE AT 0410 Performed By: #### L 500.2500 ####[facility] [address] [place], [address] BUN/CRE Normal 10-20 [facility] Comment on above: Result Comment: DUPL ICATE-CMP DONE AT [facility] Performed By: #### L 500.2500 ####[facility] [address] [place], [address] Calcium Normal 7.6-11.0 [facility] Comment on above: Result Comment: DUPL ICATE-CMP DONE AT [facility] Performed By: #### L 500.2500 ####[facility] [address] [place], [address] CL Normal 98-108 [facility] Comment on above: Result Comment: DUPL ICATE-CMP DONE AT [facility] Performed By: #### L 500.2500 ####[facility] [address] [place], [address] CO2 Normal 21.0-32.0 [facility] Comment on above: Result Comment: DUPL ICATE-CMP DONE AT [facility] Performed By: #### L 500.2500 ####[facility] [address] [place], [address] CREAT,SERUM Normal 0.70-1.20 [facility] Comment on above: Result Comment: DUPL ICATE-CMP DONE AT [facility] Performed By: #### L 500.2500 ####[facility] [address] [place], [address] eGFR Normal >60 [facility] Comment on above: Result Comment: DUPL ICATE-CMP DONE AT [facility] Performed By: #### L 500.2500 ####[facility] [address] [place], [address] GAP Normal 5-15 [facility] Comment on above: Result Comment: DUPL ICATE-CMP DONE AT [facility] Performed By: #### L 500.2500 ####[facility] [address] [place], [address] GLU Normal 70-99 [facility] Comment on above: Result Comment: DUPL ICATE-CMP DONE AT 0410 Performed By: #### L 500.2500 ####[facility] [address] [place], [address] Potassium Normal 3.3-5.1 [facility] Comment on above: Result Comment: DUPL ICATE-CMP DONE AT 0410 Performed By: #### L 500.2500 ####[facility] [address] [place], [address] Basic Metabolic Profile (BMP) Normal 133-145 [facility] Comment on above: Result Comment: DUPL ICATE-CMP DONE AT [facility] Performed By: #### L 500.2500 ####[facility] [address] [place], [address] BUN/CRE 10.4 RATIO Normal 10-20 [facility] Comment on above: Performed By: #### L 500.2500 ####[facility] [address] [place], [address] Calcium [Mass/Vol] 8.3 mg/dL Normal 7.6-11.0 [facility] Comment on above: Performed By: #### L 500.2500 ####[facility] [address] [place], [address] Chloride [Moles/Vol] 95 mmol/L Low 98-108 [facility] Comment on above: Performed By: #### L 500.2500 ####[facility] [address] [place], [address] CO2 [Moles/Vol] 18.1 mmol/L Low 21.0-32.0 [facility] Comment on above: Performed By: #### L 500.2500 ####[facility] [address] [place], [address] Creatinine [Mass/Vol] 8.88 mg/dL Invalid Interpretation Code 0.70-1.20 [facility] Comment on above: Result Comment: Crit ical Result(s) Called at: 01:15 06-06-25 to BernardaAzeb by:Maral Corrales??Results read back by same. Performed By: #### L 500.2500 ####[facility] [address] [place], [address] ECRCL 7.82 ml/min Invalid Interpretation Code 50-250 [facility] Comment on above: Performed By: #### L 500.2500 ####[facility] [address] [place], [address] GAP 25 High 5-15 [facility] Comment on above: Performed By: #### L 500.2500 ####[facility] [address] [place], [address] GFR/1.73 sq M.predicted among non-blacks MDRD (S/P/Bld) [Vol rate/Area] 6 mL/min/{1.73_m2} Low >60 [facility] Comment on above: Result Comment: mL/m in/1.73m2 CKD-EPI Creatinine Equation (2020) Performed By: #### L 500.2500 ####[facility] [address] [place], [address] Glucose [Mass/Vol] 278 mg/dL High 70-99 [facility] Comment on above: Performed By: #### L 500.2500 ####[facility] [address] [place], [address] Potassium [Moles/Vol] 4.6 mmol/L Normal 3.3-5.1 [facility] Comment on above: Performed By: #### L 500.2500 ####[facility] [address] [place], [address] Sodium [Moles/Vol] 138 mmol/L Normal 133-145 [facility] Comment on above: Performed By: #### L 500.2500 ####[facility] [address] [place], [address] Urea nitrogen [Mass/Vol] 93 mg/dL High 4-19 [facility] Comment on above: Performed By: #### L 500.2500 ####[facility] [address] [place], [address] Bedside Glucoseon - FINGERSTICK GLU 78 mg/dL Normal 74-106 [facility] Comment on above: Result Comment: ANGELA GEMENT OF PATIENT CARE PER NURSING PROTOCOL Performed By: #### L 501.080 ####[facility] [address] [place], [address] FINGERSTICK GLU 119 mg/dL High 74-106 [facility] Comment on above: Result Comment: ANGELA GEMENT OF PATIENT CARE PER NURSING PROTOCOL Performed By: #### L 501.080 ####[facility] [address] [place], [address] FINGERSTICK GLU 154 mg/dL High 74-106 [facility] Comment on above: Result Comment: ANGELA GEMENT OF PATIENT CARE PER NURSING PROTOCOL Performed By: #### L 501.080 ####[facility] [address] [place], [address] FINGERSTICK GLU 268 mg/dL High 74-106 [facility] Comment on above: Result Comment: ANGELA GEMENT OF PATIENT CARE PER NURSING PROTOCOL Performed By: #### L 501.080 ####[facility] [address] [place], [address] FINGERSTICK GLU 246 mg/dL High 74-106 [facility] Comment on above: Result Comment: ANGELA GEMENT OF PATIENT CARE PER NURSING PROTOCOL Performed By: #### L 501.080 ####[facility] [address] [place], [address] CBC W/Diff, Automatedon 09-2 Absolute Lymph 1.19 X10 3/uL Normal 0.83-4.51 [facility] Comment on above: Performed By: #### L 100.0100 ####[facility] [address] [place], [address] Absolute Neut 6.0 X10 3/uL Normal 2.0-7.7 [facility] Comment on above: Performed By: #### L 100.0100 ####[facility] [address] [place], [address] Basophils/100 WBC (Bld) 0.2 % Normal 0-1 [facility] Comment on above: Performed By: #### L 100.0100 ####[facility] [address] [place], [address] Eosinophils/100 WBC (Bld) 0.9 % Normal 0-5 [facility] Comment on above: Performed By: #### L 100.0100 ####[facility] [address] [place], [address] Erythrocyte distribution width (RBC) [Ratio] 13.0 % Normal 11.6-14.6 [facility] Comment on above: Performed By: #### L 100.0100 ####[facility] [address] [place], [address] Hematocrit (Bld) [Volume fraction] 25.8 % Low 40-54 [facility] Comment on above: Performed By: #### L 100.0100 ####[facility] [address] [place], [address] Hemoglobin (Bld) [Mass/Vol] 9.1 g/dL Low 13.0-16.5 [facility] Comment on above: Performed By: #### L 100.0100 ####[facility] [address] [place], [address] IG% 0.300 Normal 0.0-0.9 [facility] Comment on above: Result Comment: IG% - Immature Granulocytes (promyelocytes, myelocytes andmetamyelocytes) > 1% indicates that a LEFT SHIFT is Present. Performed By: #### L 100.0100 ####[facility] [address] [place], [address] Lymphocytes/100 WBC (Bld) 13.7 % Low 19-41 [facility] Comment on above: Performed By: #### L 100.0100 ####[facility] [address] [place], [address] MCH (RBC) [Entitic mass] 32.0 pg Normal 27.0-32.0 [facility] Comment on above: Performed By: #### L 100.0100 ####[facility] [address] [place], [address] MCHC (RBC) [Mass/Vol] 35.3 g/dL Normal 32-36 [facility] Comment on above: Performed By: #### L 100.0100 ####[facility] [address] [place], [address] MCV (RBC) [Entitic vol] 90.8 fL Normal 80-94 [facility] Comment on above: Performed By: #### L 100.0100 ####[facility] [address] [place], [address] Monocytes/100 WBC (Bld) 16.1 % High 0-10 [facility] Comment on above: Performed By: #### L 100.0100 ####[facility] [address] [place], [address] Neutrophils/100 WBC (Bld) 68.8 % Normal 47-70 [facility] Comment on above: Performed By: #### L 100.0100 ####[facility] [address] [place], [address] Nucleated RBC (Bld) [#/Vol] 0 10*3/uL Normal 0-5 [facility] Comment on above: Performed By: #### L 100.0100 ####[facility] [address] [place], [address] Platelet mean volume (Bld) [Entitic vol] 10.0 fL Normal 6.2-12.0 [facility] Comment on above: Performed By: #### L 100.0100 ####[facility] [address] [place], [address] Platelets (Bld) [#/Vol] 225 10*3/uL Normal 150-450 [facility] Comment on above: Performed By: #### L 100.0100 ####[facility] [address] [place], [address] RBC (Bld) [#/Vol] 2.84 10*6/uL Low 4.6-6.2 [facility] Comment on above: Performed By: #### L 100.0100 ####[facility] [address] [place], [address] RDW SD 43.1 fl Normal 35.1-43.9 [facility] Comment on above: Performed By: #### L 100.0100 ####[facility] [address] [place], [address] WBC (Bld) [#/Vol] 8.7 10*3/uL Normal 4.4-11.0 [facility] Comment on above: Performed By: #### L 100.0100 ####[facility] [address] [place], [address] Calculated very low density lipoprotein (VLDL) cholesterol measurementOrdered By: Tabby Zuniga on 06-06-2025 Calculated very low density lipoprotein (VLDL) cholesterol measurement 35 mg/dL 5-40 [facility] Comprehensive Metabolic Prof ilon 06-06-2025 Albumin [Mass/Vol] 2.7 g/dL Low 3.4-4.8 [facility] Comment on above: Performed By: #### L 500.4100, L500.4050 ####[facility] [address] [place], [address] Albumin/Globulin [Mass ratio] 1.4 {ratio} Normal 0.9-2.4 [facility] Comment on above: Performed By: #### L 500.4100, L500.4050 ####[facility] [address] [place], [address] ALK PHOS 55 U/L Normal 40-129 [facility] Comment on above: Performed By: #### L 500.4100, L500.4050 ####[facility] [address] [place], [address] ALT [Catalytic activity/Vol] 19 U/L Normal <=46 [facility] Comment on above: Performed By: #### L 500.4100, L500.4050 ####[facility] [address] [place], [address] AST [Catalytic activity/Vol] 20 U/L Normal <=37 [facility] Comment on above: Performed By: #### L 500.4100, L500.4050 ####[facility] [address] [place], [address] Bilirubin [Mass/Vol] 0.26 mg/dL Normal 0.00-1.30 [facility] Comment on above: Performed By: #### L 500.4100, L500.4050 ####[facility] [address] [place], [address] BUN/CRE 10.0 RATIO Normal 10-20 [facility] Comment on above: Performed By: #### L 500.4100, L500.4050 ####[facility] [address] [place], [address] Calcium [Mass/Vol] 8.1 mg/dL Normal 7.6-11.0 [facility] Comment on above: Performed By: #### L 500.4100, L500.4050 ####[facility] [address] [place], [address] Chloride [Moles/Vol] 94 mmol/L Low 98-108 [facility] Comment on above: Performed By: #### L 500.4100, L500.4050 ####[facility] [address] [place], [address] CO2 [Moles/Vol] 22.4 mmol/L Normal 21.0-32.0 [facility] Comment on above: Performed By: #### L 500.4100, L500.4050 ####[facility] [address] [place], [address] Creatinine [Mass/Vol] 9.29 mg/dL Invalid Interpretation Code 0.70-1.20 [facility] Comment on above: Result Comment: Crit ical Result(s) Called at 0457: by: ROLAND LOGAN.??Results read back by same. Performed By: #### L 500.4100, L500.4050 ####[facility] [address] [place], [address] ECRCL 7.48 ml/min Invalid Interpretation Code 50-250 [facility] Comment on above: Performed By: #### L 500.4100, L500.4050 ####[facility] [address] [place], [address] GAP 22 High 5-15 [facility] Comment on above: Performed By: #### L 500.4100, L500.4050 ####[facility] [address] [place], [address] GFR/1.73 sq M.predicted among non-blacks MDRD (S/P/Bld) [Vol rate/Area] 5 mL/min/{1.73_m2} Low >60 [facility] Comment on above: Result Comment: mL/m in/1.73m2 CKD-EPI Creatinine Equation (2020) Performed By: #### L 500.4100, L500.4050 ####[facility] [address] [place], [address] Globulin (S) [Mass/Vol] 1.9 g/dL Low 2.2-4.2 [facility] Comment on above: Performed By: #### L 500.4100, L500.4050 ####[facility] [address] [place], [address] Glucose [Mass/Vol] 293 mg/dL High 70-99 [facility] Comment on above: Performed By: #### L 500.4100, L500.4050 ####[facility] [address] [place], [address] Potassium [Moles/Vol] 4.2 mmol/L Normal 3.3-5.1 [facility] Comment on above: Performed By: #### L 500.4100, L500.4050 ####[facility] [address] [place], [address] Sodium [Moles/Vol] 138 mmol/L Normal 133-145 [facility] Comment on above: Performed By: #### L 500.4100, L500.4050 ####[facility] [address] [place], [address] T PROT 4.6 g/dL Low 5.9-8.4 [facility] Comment on above: Performed By: #### L 500.4100, L500.4050 ####[facility] [address] [place], [address] Urea nitrogen [Mass/Vol] 93 mg/dL High 4-19 [facility] Comment on above: Performed By: #### L 500.4100, L500.4050 ####[facility] [address] [place], [address] LDL calc ser/plasOrdered By: Tabby Zuniga on 06-06-2025 Cholesterol in LDL [Mass/Vol] 43 mg/dL [facility] Lipid Profileon 06-06-2025 CHOL:HDL 3.54 Normal [facility] Comment on above: Performed By: #### L 500.4100, L500.4050 ####[facility] [address] [place], [address] Cholesterol [Mass/Vol] 109 mg/dL Normal <=200 [facility] Comment on above: Result Comment: Chol esterol level, Desirable <200 mg/dLBorderline high cholesterol 200-239 mg/dLHigh cholesterol >=240 mg/dLRecommendations of the NCEP Adult Treatment Panel for thefollowing risk-cutoff thresholds for the [place] [facility]. Performed By: #### L 500.4100, L500.4050 ####[facility] [address] [place], [address] Cholesterol in HDL [Mass/Vol] 31 mg/dL Low [facility] Comment on above: Result Comment: Elinor onal Cholesterol Education Program (NCEP) guidelines:<40 mg/dL: Low HDL-cholesterol (major risk factor for CHD)>= 60 mg/dL: High HDL-cholesterol (negative risk factor forCHD)HDL-cholesterol is affected by a number of factors, e.g.smoking, exercise, hormones, sex and age. Performed By: #### L 500.4100, L500.4050 ####[facility] [address] [place], [address] Cholesterol in LDL [Mass/Vol] 43 mg/dL Normal [facility] Comment on above: Result Comment: Bord lzplqg=919-376 mg/dL Higher Nzzq=994 mg/dL or greaterFriedwald Equation for LDL-C Performed By: #### L 500.4100, L500.4050 ####[facility] [address] [place], [address] Cholesterol in VLDL [Mass/Vol] 35 mg/dL Normal 5-40 [facility] Comment on above: Performed By: #### L 500.4100, L500.4050 ####[facility] [address] [place], [address] Triglyceride [Mass/Vol] 175 mg/dL Normal [facility] Comment on above: Result Comment: The drugs N-Acetylcysteine and Metamizole may falselydepress this assay.Normal range: <150 mg/dLBorderline High: 150-199 mg/dLHigh: 200-499 mg/dLVery High: >500 mg/dL Performed By: #### L 500.4100, L500.4050 ####[facility] [address] [place], [address] Magnesiumon 06-06-2025 Magnesium [Mass/Vol] 1.6 mg/dL Normal 1.5-2.2 [facility] Comment on above: Performed By: #### L 501.5200 ####[facility] [address] [place], [address] Phosphoruson 06-06-2025 Phosphate [Mass/Vol] 6.4 mg/dL High 2.7-4.5 [facility] Comment on above: Performed By: #### L 501.2300 ####[facility] [address] [place], [address] Serum or plasma cholesterol in HDL measurement (mass/volume)Ordered By: Tabby Zuniga on 06-06-2025 Cholesterol in HDL [Mass/Vol] 31 mg/dL Low >40 [facility] Serum or plasma cholesterol measurement (mass/volume)Ordered By: Tabby Zuniga on 06-06-2025 Cholesterol [Mass/Vol] 109 mg/dL <201 [facility] Urine Cultureon 06-06-2025 URC Culture exhibits no growth. Normal [facility] Comment on above: Performed By: #### M 100.2200 ####[facility] [address] [place], [address] 12 Lead EKGon 06-05-2025 12 Lead EKG Normal [facility] 12 Lead EKG Normal [facility] Acute Abdomen Inc Cheston Acute Abdomen Inc Chest Normal [facility] Basic Metabolic Profile (BMP )on 06-05-2025 BUN/CRE 10.6 RATIO Normal 07-05 [facility] Comment on above: Performed By: #### L 500.2500 ####[facility] [address] [place], [address] Calcium [Mass/Vol] 8.7 mg/dL Normal 7.6-11.0 [facility] Comment on above: Performed By: #### L 500.2500 ####[facility] [address] [place], [address] Chloride [Moles/Vol] 96 mmol/L Low 98-108 [facility] Comment on above: Performed By: #### L 500.2500 ####[facility] [address] [place], [address] CO2 [Moles/Vol] 15.0 mmol/L Low 21.0-32.0 [facility] Comment on above: Performed By: #### L 500.2500 ####[facility] [address] [place], [address] Creatinine [Mass/Vol] 8.66 mg/dL Invalid Interpretation Code 0.70-1.20 [facility] Comment on above: Result Comment: Crit ical Result(s) Called at: 21:04 06-05-25 to [place]ully by:?Zack Corrales Results read back by same. Performed By: #### L 500.2500 ####[facility] [address] [place], [address] ECRCL 8.02 ml/min Invalid Interpretation Code 50-250 [facility] Comment on above: Performed By: #### L 500.2500 ####[facility] [address] [place], [address] GAP 27 High 5-15 [facility] Comment on above: Performed By: #### L 500.2500 ####[facility] [address] [place], [address] GFR/1.73 sq M.predicted among non-blacks MDRD (S/P/Bld) [Vol rate/Area] 6 mL/min/{1.73_m2} Low >60 [facility] Comment on above: Result Comment: mL/m in/1.73m2 CKD-EPI Creatinine Equation (2020) Performed By: #### L 500.2500 ####[facility] [address] [place], [address] Glucose [Mass/Vol] 262 mg/dL High 70-99 [facility] Comment on above: Performed By: #### L 500.2500 ####[facility] [address] [place], [address] Potassium [Moles/Vol] 5.1 mmol/L Normal 3.3-5.1 [facility] Comment on above: Performed By: #### L 500.2500 ####[facility] [address] [place], [address] Sodium [Moles/Vol] 139 mmol/L Normal 133-145 [facility] Comment on above: Performed By: #### L 500.2500 ####[facility] [address] [place], [address] Urea nitrogen [Mass/Vol] 92 mg/dL High 4-19 [facility] Comment on above: Performed By: #### L 500.2500 ####[facility] [address] [place], [address] BUN/CRE 10.5 RATIO Normal 10-20 [facility] Comment on above: Performed By: #### L 500.2500 ####[facility] [address] [place], [address] Calcium [Mass/Vol] 8.9 mg/dL Normal 7.6-11.0 [facility] Comment on above: Performed By: #### L 500.2500 ####[facility] [address] [place], [address] Chloride [Moles/Vol] 98 mmol/L Normal 98-108 [facility] Comment on above: Performed By: #### L 500.2500 ####[facility] [address] [place], [address] CO2 [Moles/Vol] 10.7 mmol/L Low 21.0-32.0 [facility] Comment on above: Performed By: #### L 500.2500 ####[facility] [address] [place], [address] Creatinine [Mass/Vol] 8.71 mg/dL Invalid Interpretation Code 0.70-1.20 [facility] Comment on above: Result Comment: Crit ical Result(s) Called at: 16:37 06-05-25 to VinitaJesuillc by: Maral Corrales ??Results read back by same. Performed By: #### L 500.2500 ####[facility] [address] [place], [address] ECRCL 7.98 ml/min Invalid Interpretation Code 50-250 [facility] Comment on above: Performed By: #### L 500.2500 ####[facility] [address] [place], [address] GAP 30 High 5-15 [facility] Comment on above: Performed By: #### L 500.2500 ####[facility] [address] [place], [address] GFR/1.73 sq M.predicted among non-blacks MDRD (S/P/Bld) [Vol rate/Area] 6 mL/min/{1.73_m2} Low >60 [facility] Comment on above: Result Comment: mL/m in/1.73m2 CKD-EPI Creatinine Equation (2020) Performed By: #### L 500.2500 ####[facility] [address] [place], [address] Glucose [Mass/Vol] 253 mg/dL High 70-99 [facility] Comment on above: Performed By: #### L 500.2500 ####[facility] [address] [place], [address] Potassium [Moles/Vol] 6.4 mmol/L Invalid Interpretation Code 3.3-5.1 [facility] Comment on above: Result Comment: Crit ical Result(s) Called at:16:37 06-05-25 to Lisset by: Maral Corrales??Results read back by same. Performed By: #### L 500.2500 ####[facility] [address] [place], [address] Sodium [Moles/Vol] 138 mmol/L Normal 133-145 [facility] Comment on above: Performed By: #### L 500.2500 ####[facility] [address] [place], [address] Urea nitrogen [Mass/Vol] 91 mg/dL High 4-19 [facility] Comment on above: Performed By: #### L 500.2500 ####[facility] [address] [place], [address] BUN Normal 4-19 [facility] Comment on above: Result Comment: PER SAMEER ANDERS OK TO CANCEL DUPLICATE ORDER Performed By: #### L 500.2500 ####[facility] [address] [place], [address] BUN/CRE Normal 10-20 [facility] Comment on above: Result Comment: PER SAMEER NURSE OK TO CANCEL DUPLICATE ORDER Performed By: #### L 500.2500 ####[facility] [address] [place], [address] Calcium Normal 7.6-11.0 [facility] Comment on above: Result Comment: PER SAMEER NURSE OK TO CANCEL DUPLICATE ORDER Performed By: #### L 500.2500 ####[facility] [address] [place], [address] CL Normal 98-108 [facility] Comment on above: Result Comment: PER SAMEER NURSE OK TO CANCEL DUPLICATE ORDER Performed By: #### L 500.2500 ####[facility] [address] [place], [address] CO2 Normal 21.0-32.0 [facility] Comment on above: Result Comment: PER SAMEER NURSE OK TO CANCEL DUPLICATE ORDER Performed By: #### L 500.2500 ####[facility] [address] [place], [address] CREAT,SERUM Normal 0.70-1.20 [facility] Comment on above: Result Comment: PER SAMEER NURSE OK TO CANCEL DUPLICATE ORDER Performed By: #### L 500.2500 ####[facility] [address] [place], [address] eGFR Normal >60 [facility] Comment on above: Result Comment: PER SAMEER NURSE OK TO CANCEL DUPLICATE ORDER Performed By: #### L 500.2500 ####[facility] [address] [place], [address] GAP Normal 5-15 [facility] Comment on above: Result Comment: PER SAMEER NURSE OK TO CANCEL DUPLICATE ORDER Performed By: #### L 500.2500 ####[facility] [address] [place], [address] GLU Normal 70-99 [facility] Comment on above: Result Comment: PER SAMEER NURSE OK TO CANCEL DUPLICATE ORDER Performed By: #### L 500.2500 ####[facility] [address] [place], [address] Potassium Normal 3.3-5.1 [facility] Comment on above: Result Comment: PER SAMEER NURSE OK TO CANCEL DUPLICATE ORDER Performed By: #### L 500.2500 ####[facility] [address] [place], [address] Basic Metabolic Profile (BMP) Normal 133-145 [facility] Comment on above: Result Comment: PER SAMEER NURSE OK TO CANCEL DUPLICATE ORDER Performed By: #### L 500.2500 ####[facility] [address] [place], [address] CO2 [Moles/Vol] 8.2 mmol/L Invalid Interpretation Code 21.0-32.0 [facility] Comment on above: Result Comment: Crit ical Result(s) Called at 1220: by: ROLAND MAY. ??Results read back by same.Critical Result(s) Called at 1220: by: ROLAND MAY. ??Results read back by same.Critical Result(s) Called at: by:??Results read back bysame. AMENDED REPORT 06/05/25 1230 CO2 previously reported as: 8.2 *L mmol/LCritical Result(s) Called at 1220: by: ROLAND MAY. ??Results read back by same. Performed By: #### L 500.2500 ####[facility] [address] [place], [address] Creatinine [Mass/Vol] 8.59 mg/dL Invalid Interpretation Code 0.70-1.20 [facility] Comment on above: Result Comment: Crit ical Result(s) Called at 1220: by: ROLAND MAY.??Results read back by same.Critical Result(s) Called at 1220: by: ROLAND MAY.??Results read back by same.Critical Result(s) Called at: by:??Results read back bysame.Critical Result(s) Called at: by:??Results read back bysame. AMENDED REPORT 06/05/25 1230 CREAT,SERUM previously reported as: 8.59 *H mg/dLCritical Result(s) Called at 1220: by: ROLAND MAY.??Results read back by same. Performed By: #### L 500.2500 ####[facility] [address] [place], [place], [id number] GAP 29 High 5-15 [facility] Comment on above: Result Comment: AMENDED REPORT 06/05/25 1230 GAP previously reported as: 29 H Performed By: #### L 500.2500 ####[facility] [address] [place], [place], [address] Potassium [Moles/Vol] 7.0 mmol/L Invalid Interpretation Code 3.3-5.1 [facility] Comment on above: Result Comment: Crit ical Result(s) Called at 1220: by: ROLAND MAY. ??Results read back by same.Critical Result(s) Called at 1220: by: ROLAND MAY. ??Results read back by same.Critical Result(s) Called at: by:??Results read back bysame.Critical Result(s) Called at: by:??Results read back bysame. AMENDED REPORT 06/05/25 1230 K previously reported as: 7.0 *H mmol/LCritical Result(s) Called at 1220: by: ROLAND MAY. ??Results read back by same. Performed By: #### L 500.2500 ####[facility] [address] [place], [place], [address] BUN Normal 4-19 [facility] Comment on above: Result Comment: PER SAMEER NURSE OK TO CANCEL DUPLICATE ORDER Performed By: #### L 500.2500 ####[facility] [address] [place], [address] BUN/CRE Normal 10-20 [facility] Comment on above: Result Comment: PER SAMEER NURSE OK TO CANCEL DUPLICATE ORDER Performed By: #### L 500.2500 ####[facility] [address] [place], [address] Calcium Normal 7.6-11.0 [facility] Comment on above: Result Comment: PER SAMEER NURSE OK TO CANCEL DUPLICATE ORDER Performed By: #### L 500.2500 ####[facility] [address] [place], [address] CL Normal 98-108 [facility] Comment on above: Result Comment: PER SAMEER NURSE OK TO CANCEL DUPLICATE ORDER Performed By: #### L 500.2500 ####[facility] [address] [place], [address] CO2 Normal 21.0-32.0 [facility] Comment on above: Result Comment: PER SAMEER NURSE OK TO CANCEL DUPLICATE ORDER Performed By: #### L 500.2500 ####[facility] [address] [place], [address] CREAT,SERUM Normal 0.70-1.20 [facility] Comment on above: Result Comment: PER SAMEER NURSE OK TO CANCEL DUPLICATE ORDER Performed By: #### L 500.2500 ####[facility] [address] [place], [address] eGFR Normal >60 [facility] Comment on above: Result Comment: PER SAMEER NURSE OK TO CANCEL DUPLICATE ORDER Performed By: #### L 500.2500 ####[facility] [address] [place], [address] GAP Normal 5-15 [facility] Comment on above: Result Comment: PER SAMEER NURSE OK TO CANCEL DUPLICATE ORDER Performed By: #### L 500.2500 ####[facility] [address] [place], [address] GLU Normal 70-99 [facility] Comment on above: Result Comment: PER SAMEER NURSE OK TO CANCEL DUPLICATE ORDER Performed By: #### L 500.2500 ####[facility] [address] [place], [address] Potassium Normal 3.3-5.1 [facility] Comment on above: Result Comment: PER SAMEER NURSE OK TO CANCEL DUPLICATE ORDER Performed By: #### L 500.2500 ####[facility] [address] [place], [address] Basic Metabolic Profile (BMP) Normal 133-145 [facility] Comment on above: Result Comment: PER SAMEER NURSE OK TO CANCEL DUPLICATE ORDER Performed By: #### L 500.2500 ####[facility] [address] [place], [address] BUN/CRE 10.7 RATIO Normal 10-20 [facility] Comment on above: Result Comment: AMENDED REPORT 06/05/25901 BUN/CRE previously reported as: 10.6 RATIO Performed By: #### L 500.2500 ####[facility] [address] [place], [address] CO2 [Moles/Vol] 9.2 mmol/L Invalid Interpretation Code 21.0-32.0 [facility] Comment on above: Result Comment: Crit ical Result(s) Called at 0853: by: ROLAND RAMIRES. ??Results read back by same.Critical Result(s) Called at 0853: by: ROLAND RAMIRES. ??Results read back by same.Critical Result(s) Called at: by:??Results read back bysame. AMENDED REPORT 06/05/25901 CO2 previously reported as: 9.2 *L mmol/LCritical Result(s) Called at 0853: by: ROLAND RAMIRES. ??Results read back by same. Performed By: #### L 500.2500 ####[facility] [address] [place], [place], [address] Creatinine [Mass/Vol] 8.63 mg/dL Invalid Interpretation Code 0.70-1.20 [facility] Comment on above: Result Comment: Crit ical Result(s) Called at 0853: by: ROLAND TOBAR TOROME.??Results read back by same.Critical Result(s) Called at 0853: by: ROLAND BOJORQUEZEN.??Results read back by same.Critical Result(s) Called at: by:??Results read back bysame.Critical Result(s) Called at: by:??Results read back bysame. AMENDED REPORT 06/05/25901 CREAT,SERUM previously reported as: 8.63 *H mg/dLCritical Result(s) Called at 0853: by: ROLAND RAMIRES.??Results read back by same. Performed By: #### L 500.2500 ####[facility] [address] [facility] [place], [address] GAP 29 High 5-15 [facility] Comment on above: Result Comment: AMENDED REPORT 06/05/25901 GAP previously reported as: 29 H Performed By: #### L 500.2500 ####[facility] [address] [place], [place], [address] Potassium [Moles/Vol] 7.5 mmol/L Invalid Interpretation Code 3.3-5.1 [facility] Comment on above: Result Comment: Crit ical Result(s) Called at 0854: by: ROLAND RAMIRES. ??Results read back by same.Critical Result(s) Called at 0854: by: ROLAND RAMIRES. ??Results read back by same.Critical Result(s) Called at: by:??Results read back bysame.Critical Result(s) Called at: by:??Results read back bysame. AMENDED REPORT 06/05/25 0902 K previously reported as: 7.5 *H mmol/LCritical Result(s) Called at 0854: by: ROLAND RAMIRES. ??Results read back by same. Performed By: #### L 500.2500 ####[facility] [address] [place], [address] Bedside Glucoseon 06-05-2025 FINGERSTICK GLU 219 mg/dL High 74-106 [facility] Comment on above: Result Comment: ANGELA GEMENT OF PATIENT CARE PER NURSING PROTOCOL Performed By: #### L 501.080 ####[facility] [address] [place], [address] FINGERSTICK GLU 165 mg/dL High 74-106 [facility] Comment on above: Result Comment: ANGELA GEMENT OF PATIENT CARE PER NURSING PROTOCOL Performed By: #### L 501.080 ####[facility] [address] [place], [address] FINGERSTICK GLU 90 mg/dL Normal 74-106 [facility] Comment on above: Result Comment: ANGELA GEMENT OF PATIENT CARE PER NURSING PROTOCOL Performed By: #### L 501.080 ####[facility] [address] [place], [address] Bilirubin Test strip Ql (U)O rdered By: Tabby Zuniga on 06-05-2025 Bilirubin Ql (U) Negative Negative [facility] CBC W/Diff, Automatedon 05-18 Absolute Lymph 1.17 X10 3/uL Normal 0.83-4.51 [facility] Comment on above: Performed By: #### L 501.4021, L100.0100, L500.4050 ####[facility] [address] [place], [address] Absolute Neut 8.6 X10 3/uL High 2.0-7.7 [facility] Comment on above: Performed By: #### L 501.4021, L100.0100, L500.4050 ####[facility] [address] [place], [address] Basophils/100 WBC (Bld) 0.2 % Normal 0-1 [facility] Comment on above: Performed By: #### L 501.4021, L100.0100, L500.4050 ####[facility] [address] [place], [address] Eosinophils/100 WBC (Bld) 0.2 % Normal 0-5 [facility] Comment on above: Performed By: #### L 501.4021, L100.0100, L500.4050 ####[facility] [address] [place], [address] Erythrocyte distribution width (RBC) [Ratio] 12.9 % Normal 11.6-14.6 [facility] Comment on above: Performed By: #### L 501.4021, L100.0100, L500.4050 ####[facility] [address] [place], [address] Hematocrit (Bld) [Volume fraction] 35.4 % Low 40-54 [facility] Comment on above: Performed By: #### L 501.4021, L100.0100, L500.4050 ####[facility] [address] [place], [address] Hemoglobin (Bld) [Mass/Vol] 12.0 g/dL Low 13.0-16.5 [facility] Comment on above: Performed By: #### L 501.4021, L100.0100, L500.4050 ####[facility] [address] [place], [address] IG% 0.500 Normal 0.0-0.9 [facility] Comment on above: Result Comment: IG% - Immature Granulocytes (promyelocytes, myelocytes andmetamyelocytes) > 1% indicates that a LEFT SHIFT is Present. Performed By: #### L 501.4021, L100.0100, L500.4050 ####[facility] [address] [place], [address] Lymphocytes/100 WBC (Bld) 11.2 % Low 19-41 [facility] Comment on above: Performed By: #### L 501.4021, L100.0100, L500.4050 ####[facility] [address] [place], [address] MCH (RBC) [Entitic mass] 32.0 pg Normal 27.0-32.0 [facility] Comment on above: Performed By: #### L 501.4021, L100.0100, L500.4050 ####[facility] [address] [place], [address] MCHC (RBC) [Mass/Vol] 33.9 g/dL Normal 32-36 [facility] Comment on above: Performed By: #### L 501.4021, L100.0100, L500.4050 ####[facility] [address] [place], [address] MCV (RBC) [Entitic vol] 94.4 fL High 80-94 [facility] Comment on above: Performed By: #### L 501.4021, L100.0100, L500.4050 ####[facility] [address] [place], [address] Monocytes/100 WBC (Bld) 5.6 % Normal 0-10 [facility] Comment on above: Performed By: #### L 501.4021, L100.0100, L500.4050 ####[facility] [address] [place], [address] Neutrophils/100 WBC (Bld) 82.3 % High 47-70 [facility] Comment on above: Performed By: #### L 501.4021, L100.0100, L500.4050 ####[facility] [address] [place], [address] Nucleated RBC (Bld) [#/Vol] 0 10*3/uL Normal 0-5 [facility] Comment on above: Performed By: #### L 501.4021, L100.0100, L500.4050 ####[facility] [address] [place], [address] Platelet mean volume (Bld) [Entitic vol] 9.9 fL Normal 6.2-12.0 [facility] Comment on above: Performed By: #### L 501.4021, L100.0100, L500.4050 ####[facility] [address] [place], [address] Platelets (Bld) [#/Vol] 285 10*3/uL Normal 150-450 [facility] Comment on above: Performed By: #### L 501.4021, L100.0100, L500.4050 ####[facility] [address] [place], [address] RBC (Bld) [#/Vol] 3.75 10*6/uL Low 4.6-6.2 [facility] Comment on above: Performed By: #### L 501.4021, L100.0100, L500.4050 ####[facility] [address] [place], [address] RDW SD 44.4 fl High 35.1-43.9 [facility] Comment on above: Performed By: #### L 501.4021, L100.0100, L500.4050 ####[facility] [address] [place], [address] WBC (Bld) [#/Vol] 10.5 10*3/uL Normal 4.4-11.0 [facility] Comment on above: Performed By: #### L 501.4021, L100.0100, L500.4050 ####[facility] [address] [place], [address] CO2 (BldV) [Moles/Vol]Ordere d By: Richi Hope on 06-05-2025 CO2 [Moles/Vol] 18 mmol/L Low 23-33 [facility] CPK Total, Creatine Kinaseon 06-05-2025 CPK TOTAL 200 U/L High 24-195 [facility] Comment on above: Performed By: #### L 501.3620 ####[facility] [address] [place], [address] Comprehensive Metabolic Prof ilon 06-05-2025 Albumin [Mass/Vol] 3.9 g/dL Normal 3.4-4.8 [facility] Comment on above: Performed By: #### L 501.4021, L100.0100, L500.4050 ####[facility] [address] [place], [address] Albumin/Globulin [Mass ratio] 1.3 {ratio} Normal 0.9-2.4 [facility] Comment on above: Performed By: #### L 501.4021, L100.0100, L500.4050 ####[facility] [address] [place], [address] ALK PHOS 84 U/L Normal 40-129 [facility] Comment on above: Performed By: #### L 501.4021, L100.0100, L500.4050 ####[facility] [address] [place], [address] ALT [Catalytic activity/Vol] 24 U/L Normal <=46 [facility] Comment on above: Performed By: #### L 501.4021, L100.0100, L500.4050 ####[facility] [address] [place], [address] AST [Catalytic activity/Vol] 26 U/L Normal <=37 [facility] Comment on above: Performed By: #### L 501.4021, L100.0100, L500.4050 ####[facility] [address] [place], [address] Bilirubin [Mass/Vol] 0.29 mg/dL Normal 0.00-1.30 [facility] Comment on above: Performed By: #### L 501.4021, L100.0100, L500.4050 ####[facility] [address] [place], [address] BUN/CRE 10.5 RATIO Normal 10-20 [facility] Comment on above: Performed By: #### L 501.4021, L100.0100, L500.4050 ####[facility] [address] [place], [address] Calcium [Mass/Vol] 10.5 mg/dL Normal 7.6-11.0 [facility] Comment on above: Performed By: #### L 501.4021, L100.0100, L500.4050 ####[facility] [address] [place], [address] Chloride [Moles/Vol] 100 mmol/L Normal 98-108 [facility] Comment on above: Performed By: #### L 501.4021, L100.0100, L500.4050 ####[facility] [address] [place], [address] CO2 [Moles/Vol] 11.0 mmol/L Low 21.0-32.0 [facility] Comment on above: Performed By: #### L 501.4021, L100.0100, L500.4050 ####[facility] [address] [place], [address] Creatinine [Mass/Vol] 8.74 mg/dL Invalid Interpretation Code 0.70-1.20 [facility] Comment on above: Result Comment: Crit ical Result(s) Called at 0506: by: ROLAND PAYNE.??Results read back by same. Performed By: #### L 501.4021, L100.0100, L500.4050 ####[facility] [address] [place], [address] ECRCL 7.80 ml/min Invalid Interpretation Code 50-250 [facility] Comment on above: Performed By: #### L 501.4021, L100.0100, L500.4050 ####[facility] [address] [place], [address] GAP 29 High 5-15 [facility] Comment on above: Performed By: #### L 501.4021, L100.0100, L500.4050 ####[facility] [address] [place], [address] GFR/1.73 sq M.predicted among non-blacks MDRD (S/P/Bld) [Vol rate/Area] 6 mL/min/{1.73_m2} Low >60 [facility] Comment on above: Result Comment: mL/m in/1.73m2 CKD-EPI Creatinine Equation (2020) Performed By: #### L 501.4021, L100.0100, L500.4050 ####[facility] [address] [place], [address] Globulin (S) [Mass/Vol] 2.9 g/dL Normal 2.2-4.2 [facility] Comment on above: Performed By: #### L 501.4021, L100.0100, L500.4050 ####[facility] [address] [place], [address] Glucose [Mass/Vol] 104 mg/dL High 70-99 [facility] Comment on above: Performed By: #### L 501.4021, L100.0100, L500.4050 ####[facility] [address] [place], [address] Potassium [Moles/Vol] 6.3 mmol/L Invalid Interpretation Code 3.3-5.1 [facility] Comment on above: Result Comment: Crit ical Result(s) Called at 0506: by: ROLAND PAYNE. ??Results read back by same. Performed By: #### L 501.4021, L100.0100, L500.4050 ####[facility] [address] [place], [address] Sodium [Moles/Vol] 140 mmol/L Normal 133-145 [facility] Comment on above: Performed By: #### L 501.4021, L100.0100, L500.4050 ####[facility] [address] [place], [address] T PROT 6.8 g/dL Normal 5.9-8.4 [facility] Comment on above: Performed By: #### L 501.4021, L100.0100, L500.4050 ####[facility] [address] [place], [address] Urea nitrogen [Mass/Vol] 92 mg/dL High 4-19 [facility] Comment on above: Performed By: #### L 501.4021, L100.0100, L500.4050 ####[facility] [address] [place], [address] Consultation - Nephrologyon 06-05-2025 Consultation - Nephrology Normal [facility] Creatinine, Urine (random)on 06-05-2025 UR CREAT 38.30 mg/dL Low 39.00-259.00 [facility] Comment on above: Performed By: #### L 400.0001, L501.5500, L501.1200 ####[facility] [address] [place], [address] Echo Limited w/Contraston Echo Limited w/Contrast Normal [facility] Department Summary on 06-05-2025 Emergency Department Summary Normal [facility] H AND P Exam - Hospitaliston 06-05-2025 H&P Exam - Hospitalist Normal [facility] Ketones Test strip Ql (U)Ord ered By: Tabby Zuniga on 06-05-2025 Ketones Ql (U) 5 mg/dl High Negative [facility] Kidney and Bladderon 025 Kidney and Bladder Normal [facility] L501.4021on 06-05-2025 Trop T High Sen 116 ng/L Invalid Interpretation Code <=22 [facility] Comment on above: Result Comment: Crit ical Result(s) Called at 0506: by: ROLAND PAYNE. ??Results read back by same. Performed By: #### L 501.4021, L100.0100, L500.4050 ####[facility] [address] [place], [address] Limited echocardiogram repor tOrdered By: Jeffrey Lord on 06-05-2025 Study report [facility] Work Phone: Magnesiumon 06-05-2025 Magnesium [Mass/Vol] 1.8 mg/dL Normal 1.5-2.2 [facility] Comment on above: Performed By: #### L 501.5200, L501.2300 ####[facility] [address] [place], [address] Magnesium [Mass/Vol] 2.0 mg/dL Normal 1.5-2.2 [facility] Comment on above: Order Comment: Comme nts: May add to ED labsComments: may add to ED labs Performed By: #### L 501.5200, L501.2300 ####[facility] [address] [place], [address] Mucus LM Ql (Urine sed)Order ed By: aTbby Zuniga on 06-05-2025 Mucus Ql (Urine sed) 0 SEEN /hpf [facility] Nitrite Test strip Ql (U)Ord ered By: Tabby Zuniga on 06-05-2025 Nitrite Ql (U) Negative Negative [facility] No Panel InformationOrdered By: Richi Hope on 06-05-2025 JUDY [facility] Not entered [facility] Osmolality, Serumon 06-05-20 25 OSMOLALITY,SER 336 mOsm/KG High 280-301 [facility] Comment on above: Performed By: #### L 501.7300 ####[facility] [address] [place], [address] Phosphoruson 06-05-2025 Phosphate [Mass/Vol] 7.5 mg/dL High 2.7-4.5 [facility] Comment on above: Performed By: #### L 501.5200, L501.2300 ####[facility] [address] [place], [address] Phosphate [Mass/Vol] 6.5 mg/dL High 2.7-4.5 [facility] Comment on above: Order Comment: Comme nts: May add to ED labsComments: may add to ED labs Performed By: #### L 501.5200, L501.2300 ####[facility] [address] [place], [address] Protein Test strip Ql (U)Ord ered By: Tabby Zuniga on 06-05-2025 Protein Ql (U) 100 mg/dl High Negative [facility] Random urine creatinine makeda urement (mass/volume)Ordered By: Tabby Efrain on 06-05-2025 Creatinine Unsp time (U) [Mass/Vol] 38.30 mg/dL Low 39.00-259.00 [facility] Serum or plasma creatine kin ase activityOrdered By: Chris Bird on 06-05-2025 CK [Catalytic activity/Vol] 200 U/L High 24-195 [facility] Squamous epithelial cells de tection in urine sediment by light microscopyOrdered By: Tabby Zuniga on 06-05-2025 Epithelial cells.squamous LM Ql (Urine sed) 0 SEEN /hpf 0-5 [facility] Troponin T HS 2 HRon 025 Trop T High Sen 110 ng/L Invalid Interpretation Code <=22 [facility] Comment on above: Result Comment: Crit ical Result(s) Called at 0645: by: ROLAND ZAVALA. ??Results read back by same. Performed By: #### L 499.0042 ####[facility] [address] [place], [place], [id number] Troponin T HS 4 HRon 025 Trop T High Sen 111 ng/L Invalid Interpretation Code <=22 [facility] Comment on above: Result Comment: Crit ical Result(s) Called at 0958: by: ROLAND WALL..??Results read back by same. Performed By: #### L 499.0043 ####[facility] [address] [place], [place], [address] Troponin T.cardiac [Mass/vol ume] in Serum or Plasma by High sensitivity methodOrdered By: Blake Kapoor on 06-05-2025 Troponin T.cardiac High sensitivity method [Mass/Vol] 111 ng/L Critically high <22 [facility] Troponin T.cardiac High sensitivity method [Mass/Vol] 110 ng/L Critically high <22 [facility] Troponin T.cardiac High sensitivity method [Mass/Vol] 116 ng/L Critically high <22 [facility] Urinalysis, Completeon 06-05 EPI,RENAL 0-5 SEEN Normal 0-5 [facility] Comment on above: Order Comment: DOMINICK TER SPECIMEN Performed By: #### L 400.0001, L501.5500, L501.1200 ####[facility] [address] [place], [address] RBC 0-5 SEEN Normal 0-5 [facility] Comment on above: Order Comment: DOMINICK TER SPECIMEN Performed By: #### L 400.0001, L501.5500, L501.1200 ####[facility] [address] [place], [address] WBC 0-5 SEEN Normal 0-5 [facility] Comment on above: Order Comment: DOMINICK TER SPECIMEN Performed By: #### L 400.0001, L501.5500, L501.1200 ####[facility] [address] [place], [address] BACTERIA 0 SEEN Normal None Seen [facility] Comment on above: Order Comment: DOMINICK TER SPECIMEN Performed By: #### L 400.0001, L501.5500, L501.1200 ####[facility] [address] [place], [address] EPI,SQUAMOUS 0 SEEN Normal 0-5 [facility] Comment on above: Order Comment: DOMINICK TER SPECIMEN Performed By: #### L 400.0001, L501.5500, L501.1200 ####[facility] [address] [place], [address] Mucus Ql (Urine sed) 0 SEEN Normal [facility] Comment on above: Order Comment: DOMINICK TER SPECIMEN Performed By: #### L 400.0001, L501.5500, L501.1200 ####[facility] [address] [place], [address] BACTERIA Normal None Seen [facility] Comment on above: Order Comment: ZOYA CTOR TO SPECIFY Result Comment: PER SAMEER NURSE OK TO CANCEL DUPLICATE ORDER Performed By: #### L 400.0001 ####[facility] [address] [place], [address] BILIRUBIN URINE Normal Negative [facility] Comment on above: Order Comment: COLLE CTOR TO SPECIFY Result Comment: PER SAMEER NURSE OK TO CANCEL DUPLICATE ORDER Performed By: #### L 400.0001 ####[facility] [address] [place], [address] Clarity (U) Normal Clear [facility] Comment on above: Order Comment: COLLE CTOR TO SPECIFY Result Comment: PER SAMEER NURSE OK TO CANCEL DUPLICATE ORDER Performed By: #### L 400.0001 ####[facility] [address] [place], [address] Color (U) Normal Yellow [facility] Comment on above: Order Comment: COLLE CTOR TO SPECIFY Result Comment: PER SAMEER NURSE OK TO CANCEL DUPLICATE ORDER Performed By: #### L 400.0001 ####[facility] [address] [place], [address] EPI,SQUAMOUS Normal 0-5 [facility] Comment on above: Order Comment: ZOYA CTOR TO SPECIFY Result Comment: PER SAMEER NURSE OK TO CANCEL DUPLICATE ORDER Performed By: #### L 400.0001 ####[facility] [address] [place], [address] GLUCOSE, UR Normal Normal [facility] Comment on above: Order Comment: COLLE CTOR TO SPECIFY Result Comment: PER SAMEER NURSE OK TO CANCEL DUPLICATE ORDER Performed By: #### L 400.0001 ####[facility] [address] [place], [address] KETONE UR Normal Negative [facility] Comment on above: Order Comment: COLLE CTOR TO SPECIFY Result Comment: PER SAMEER NURSE OK TO CANCEL DUPLICATE ORDER Performed By: #### L 400.0001 ####[facility] [address] [place], [address] LEUK ESTERASE Normal Negative [facility] Comment on above: Order Comment: COLLE CTOR TO SPECIFY Result Comment: PER SAMEER NURSE OK TO CANCEL DUPLICATE ORDER Performed By: #### L 400.0001 ####[facility] [address] [place], [address] Mucus Ql (Urine sed) Normal [facility] Comment on above: Order Comment: COLLE CTOR TO SPECIFY Result Comment: PER SAMEER NURSE OK TO CANCEL DUPLICATE ORDER Performed By: #### L 400.0001 ####[facility] [address] [place], [address] Nitrite Ql (U) Normal Negative [facility] Comment on above: Order Comment: COLLE CTOR TO SPECIFY Result Comment: PER SAMEER NURSE OK TO CANCEL DUPLICATE ORDER Performed By: #### L 400.0001 ####[facility] [address] [place], [address] OCCULT BLOOD-UR Normal Negative [facility] Comment on above: Order Comment: COLLE CTOR TO SPECIFY Result Comment: PER SAMEER NURSE OK TO CANCEL DUPLICATE ORDER Performed By: #### L 400.0001 ####[facility] [address] [place], [address] pH UR Normal 5.0 - 8.0 [facility] Comment on above: Order Comment: COLLE CTOR TO SPECIFY Result Comment: PER SAMEER NURSE OK TO CANCEL DUPLICATE ORDER Performed By: #### L 400.0001 ####[facility] [address] [place], [address] PROT DIPSTX Normal Negative [facility] Comment on above: Order Comment: ZOYA CTOR TO SPECIFY Result Comment: PER SAMEER NURSE OK TO CANCEL DUPLICATE ORDER Performed By: #### L 400.0001 ####[facility] [address] [place], [address] RBC Normal 0-5 [facility] Comment on above: Order Comment: ZOYA CTOR TO SPECIFY Result Comment: PER SAMEER NURSE OK TO CANCEL DUPLICATE ORDER Performed By: #### L 400.0001 ####[facility] [address] [place], [address] SP.GR. DIPSTX Normal 1.002-1.030 [facility] Comment on above: Order Comment: ZOYA CTOR TO SPECIFY Result Comment: PER SAMEER NURSE OK TO CANCEL DUPLICATE ORDER Performed By: #### L 400.0001 ####[facility] [address] [place], [address] UR Preservative Normal [facility] Comment on above: Order Comment: COLLE CTOR TO SPECIFY Result Comment: PER SAMEER NURSE OK TO CANCEL DUPLICATE ORDER Performed By: #### L 400.0001 ####[facility] [address] [place], [address] UROBILI Normal Normal [facility] Comment on above: Order Comment: COLLE CTOR TO SPECIFY Result Comment: PER SAMEER NURSE OK TO CANCEL DUPLICATE ORDER Performed By: #### L 400.0001 ####[facility] [address] [place], [address] WBC Normal 0-5 [facility] Comment on above: Order Comment: COLLE CTOR TO SPECIFY Result Comment: PER SAMEER NURSE OK TO CANCEL DUPLICATE ORDER Performed By: #### L 400.0001 ####[facility] [address] [place], [address] Urine Sodiumon 06-05-2025 Sodium (U) [Moles/Vol] 105 mmol/L Normal Not Establ. [facility] Comment on above: Performed By: #### L 400.0001, L501.5500, L501.1200 ####[facility] [address] [place], [address] Urine clarityOrdered By: Aut umn White on 06-05-2025 Clarity (U) Clear Clear [facility] Urine color determinationOrd ered By: White on 06-05-2025 Color (U) Yellow Yellow [facility] Urine cultureOrdered By: Aut umn White on 06-05-2025 Bacteria identified Cx Nom (U) Culture exhibits no growth. [facility] Bacteria identified Cx Nom (U) Culture exhibits no growth. [facility] Urine glucose detectionOrder ed By: White on 06-05-2025 Glucose Ql (U) 100 mg/dl High Normal [facility] Urine leukocyte esterase det ection by dipstickOrdered By: Tabby Zuniga on 06-05-2025 Leukocyte esterase Test strip Ql (U) Negative Negative [facility] Urine pHOrdered By: Tabby Prasad deirdre on 06-05-2025 pH (U) 6.0 [pH] 5.0 - 8.0 [facility] Urine sediment bacteria coun t by microscopy (number/high power field)Ordered By: Tabby Efrain on 06-05-2025 Bacteria LM.HPF (Urine sed) [#/Area] 0 /[HPF] None Seen [facility] Urine sediment renal epithel ial cell count by microscopy (number/high power field)Ordered By: Tabby Efrain on 06-05-2025 Epithelial cells.renal LM.HPF (Urine sed) [#/Area] 0 /[HPF] 0-5 [facility] Urine sodium measurement (mo les/volume)Ordered By: Tabby Efrain on 06-05-2025 Sodium (U) [Moles/Vol] 105 mmol/L Not Establ. [facility] Urine specific gravity measu rementOrdered By: Tabby Efrain on 06-05-2025 Specific gravity (U) [Rel density] 1.015 1.002-1.030 [facility] Urine urobilinogen measureme ntOrdered By: Tabby Efrain on 06-05-2025 Urobilinogen Ql (U) Normal mg/dl Normal [facility] Venous Blood Gason 5 Blood Gas Type JUDY Normal [facility] Comment on above: Performed By: #### L 9000.0810 ####[facility] [address] [place], [place], [id number] CO2 [Moles/Vol] 18 mmol/L Low 23-33 [facility] Comment on above: Performed By: #### L 9000.0810 ####[facility] [address] [place], [address] HCO3 (Bld) [Moles/Vol] 17 mmol/L Low 22-26 [facility] Comment on above: Performed By: #### L 9000.0810 ####[facility] [address] [place], [place], [phone] Delivery Dev Not entered Normal [facility] Comment on above: Performed By: #### L 9000.0810 ####[facility] [address] [place], [address] SITE Not entered Normal [facility] Comment on above: Performed By: #### L 9000.0810 ####[facility] [address] [place], [address] VBG BE -7 mmol/L Low -1.0-3.5 [facility] Comment on above: Performed By: #### L 9000.0810 ####[facility] [address] [place], [address] VBG pCO2 24.8 mmHg Low 41-51 [facility] Comment on above: Performed By: #### L 9000.0810 ####[facility] [address] [place], [address] VBG pH 7.44 High 7.32-7.42 [facility] Comment on above: Performed By: #### L 9000.0810 ####[facility] [address] [place], [address] VBG PO2 184 mmHg High 25-40 [facility] Comment on above: Performed By: #### L 9000.0810 ####[facility] [address] [place], [address] VBG SO2 100 High 50-70 [facility] Comment on above: Performed By: #### L 9000.0810 ####[facility] [address] [place], [address] Venous blood base excess onelia surementOrdered By: Richi Hope on 06-05-2025 Base excess Calc (BldV) [Moles/Vol] -7 mmol/L Low -1.0-3.5 [facility] Venous blood bicarbonate onelia surementOrdered By: Richi Hope on 06-05-2025 HCO3 (Bld) [Moles/Vol] 17 mmol/L Low 22-26 [facility] Venous blood pH measurementO rdered By: Richi Hope on 06-05-2025 pH (BldV) 7.44 [pH] High 7.32-7.42 [facility] Venous blood partial pressur e of carbon dioxide measurementOrdered By: Richi Hope on 06-05-2025 CO2 (BldV) [Partial pressure] 24.8 mm[Hg] Low 41-51 [facility] Venous blood partial pressur e of oxygen measurementOrdered By: Richi Hope on 06-05-2025 Oxygen (BldV) [Partial pressure] 184 mm[Hg] High 25-40 [facility] White blood cell countOrdere d By: Tabby Zuniga on 06-05-2025 White blood cell count 0-5 SEEN /hpf 0-5 [facility] MR/PAT.ANEon 05-28-2025 MR/PAT.ANE Normal [facility] MR/BMS.BVSon 05-12-2025 MR/BMS.BVS Normal [facility] L3410.9992on 05-11-2025 [facility] Misc. COMMENT Normal . [facility] Comment on above: Order Comment: 38525 4STOOL CULTURE Result Comment: Test Ordered: [id number] Stool CultureSalmonella/Shigella Screen Note: Final report Reference Range: .Result 1 Comment CB Reference Range: .No Salmonella or Shigella recovered.Campylobacter Culture Note: CB Final report Reference Range: .Result 1 Comment CB Reference Range: .No Campylobacter species isolated.E coli Shiga Toxin EIA Negative Reference Range: NegativePerformed at: - [facility] [address] [id number] Director: Ciaran Sethi PhD, Phone: [phone] Performed By: #### L 3944.7056, B666.8012, L4268.6315 ####[facility] [address] [place], [place], [id number] Fecal Fat, Qualitativeon FATS, NEUTRAL Normal Normal . [facility] Comment on above: Order Comment: Test( s) 825944-Kaug, Neutral; 513241-Cgtf, Totalwas developed and its performance characteristicsdetermined by [facility]. It has not been cleared or approvedby the Food and Drug Administration. Result Comment: Norm al (<60 Droplets/HPF) Performed By: #### L 3410.9992, M100.0605, L7000.0300 ####[facility] [address] [facility] [address] FATS, TOTAL Normal Normal . [facility] Comment on above: Order Comment: Test( s) 337335-Aujk, Neutral; 716839-Jgyp, Totalwas developed and its performance characteristicsdetermined by [facility]. It has not been cleared or approvedby the Food and Drug Administration. Result Comment: Norm al (<100 Droplets/HPF)Performed at: [address] [id number] Director: Ciaran Sethi PhD, Phone: [phone] Performed By: #### L 3410.9992, M100.0605, L7000.0300 ####[facility] [address] [place], [place], [id number] Fecal fat detectionOrdered B y: Briseyda Sinclair on 05-06-2025 Fat Ql (Stl) Normal . [facility] Comment on above: Normal (<100 Droplet s/HPF)Performed at: [address] [id number] Director: Ciaran Sethi PhD, Phone: [phone] No Panel InformationOrdered By: Briseyda Sinclair on 05-06-2025 Stool Neutral Fats Normal . [facility] Comment on above: Normal (<60 Droplets /HPF) Normal . [facility] Stool Lactoferrin/WBCon 04-17 WBCST Normal Reference Ran ge = Negative Fecal WBC Lactoferrin Negative: No Fecal WBC Lactoferrin present Normal [facility] Comment on above: Performed By: #### L 3410.9992, M100.0605, L7000.0300 ####[facility] [address] [place], [place], [address] Stool lactoferrin detection by immunoassayOrdered By: Briseyda Sinclair on 05-06-2025 Lactoferrin IA Ql (Stl) [facility] Lactoferrin IA Ql (Stl) [facility] MR/BMS.IMBon 05-03-2025 MR/BMS.IMB Normal [facility] Cardiology Visit Reporton Cardiology Visit Report Normal [facility] Neurology Visit Reporton Neurology Visit Report Normal [facility] 36on 04-01-2025 36 Pt's say pt daniel t to ED in [place] due to chest pressure, dizziness and arm numbness. 03/29/2025. ED and pt's button pusher says it was an adverse reaction to Brilinta. Cardiology d/c'd Brilinta and restarted pt on Plavix. Normal [facility] 12 Lead EKGon 03-29-2025 12 Lead EKG Normal [facility] Absolute lymphocyte countOrd ered By: Ravinder Vance on 03-29-2025 Lymphocytes Auto (Unsp spec) [#/Vol] 1.57 10*3/uL 0.83-4.51 [facility] Absolute neutrophil countOrd ered By: Ravinder Vance on 03-29-2025 Neutrophils (Bld) [#/Vol] 2.5 10*3/uL 2.0-7.7 [facility] Anion gap in Serum or Plasma Ordered By: Ravinder Vance on 03-29-2025 Anion gap [Moles/Vol] 14 mmol/L 5- [facility] BUN/creatinine ratioOrdered By: Ravinder Vance on 03-29-2025 Urea nitrogen/Creatinine [Mass ratio] 21.1 mg/mg High - [facility] Basic Metabolic Profile (BMP )on 03-29-2025 BUN/CRE 21.1 RATIO High 07-05 [facility] Comment on above: Performed By: #### L 501.2450, L500.2500, L100.0100, L500.3400, L501.5200 ####[facility] [address] [place], [address] Calcium [Mass/Vol] 10.1 mg/dL Normal 7.6-11.0 [facility] Comment on above: Performed By: #### L 501.2450, L500.2500, L100.0100, L500.3400, L501.5200 ####[facility] [address] [place], [address] Chloride [Moles/Vol] 106 mmol/L Normal 98-108 [facility] Comment on above: Performed By: #### L 501.2450, L500.2500, L100.0100, L500.3400, L501.5200 ####[facility] [address] [place], [address] CO2 [Moles/Vol] 22.2 mmol/L Normal 21.0-32.0 [facility] Comment on above: Performed By: #### L 501.2450, L500.2500, L100.0100, L500.3400, L501.5200 ####[facility] [address] [place], [address] Creatinine [Mass/Vol] 1.63 mg/dL High 0.70-1.20 [facility] Comment on above: Performed By: #### L 501.2450, L500.2500, L100.0100, L500.3400, L501.5200 ####[facility] [address] [place], [address] ECRCL 40.60 ml/min Low 50-250 [facility] Comment on above: Performed By: #### L 501.2450, L500.2500, L100.0100, L500.3400, L501.5200 ####[facility] [address] [place], [address] GAP 14 Normal 5-15 [facility] Comment on above: Performed By: #### L 501.2450, L500.2500, L100.0100, L500.3400, L501.5200 ####[facility] [address] [place], [address] GFR/1.73 sq M.predicted among non-blacks MDRD (S/P/Bld) [Vol rate/Area] 44 mL/min/{1.73_m2} Low >60 [facility] Comment on above: Result Comment: mL/m in/1.73m2 CKD-EPI Creatinine Equation (2020) Performed By: #### L 501.2450, L500.2500, L100.0100, L500.3400, L501.5200 ####[facility] [address] [place], [address] Glucose [Mass/Vol] 136 mg/dL High 70-99 [facility] Comment on above: Performed By: #### L 501.2450, L500.2500, L100.0100, L500.3400, L501.5200 ####[facility] [address] [place], [address] Potassium [Moles/Vol] 4.2 mmol/L Normal 3.3-5.1 [facility] Comment on above: Performed By: #### L 501.2450, L500.2500, L100.0100, L500.3400, L501.5200 ####[facility] [address] [place], [address] Sodium [Moles/Vol] 142 mmol/L Normal 133-145 [facility] Comment on above: Performed By: #### L 501.2450, L500.2500, L100.0100, L500.3400, L501.5200 ####[facility] [address] [place], [address] Urea nitrogen [Mass/Vol] 34 mg/dL High 4-19 [facility] Comment on above: Performed By: #### L 501.2450, L500.2500, L100.0100, L500.3400, L501.5200 ####[facility] [address] [place], [address] Basophil percentageOrdered B y: Ravinder Vance on 03-29-2025 Basophils/100 WBC (Bld) 0.6 % 0-1 [facility] Bilirubin directOrdered By: Ravinder Vance on 03-29-2025 Bilirubin.direct [Mass/Vol] 0.20 mg/dL 0.00-0.30 [facility] Bilirubin, totalOrdered By: Ravinder Vance on 03-29-2025 Bilirubin [Mass/Vol] 0.49 mg/dL 0.00-1.30 [facility] Blood platelets count (numbe r/volume)Ordered By: Ravinder Vance on 03-29-2025 Platelets (Bld) [#/Vol] 238 10*3/uL 150-450 [facility] CBC W/Diff, Automatedon 03-16 Absolute Lymph 1.57 X10 3/uL Normal 0.83-4.51 [facility] Comment on above: Performed By: #### L 501.2450, L500.2500, L100.0100, L500.3400, L501.5200 ####[facility] [address] [place], [address] Absolute Neut 2.5 X10 3/uL Normal 2.0-7.7 [facility] Comment on above: Performed By: #### L 501.2450, L500.2500, L100.0100, L500.3400, L501.5200 ####[facility] [address] [place], [address] Basophils/100 WBC (Bld) 0.6 % Normal 0-1 [facility] Comment on above: Performed By: #### L 501.2450, L500.2500, L100.0100, L500.3400, L501.5200 ####[facility] [address] [place], [address] Eosinophils/100 WBC (Bld) 6.7 % High 0-5 [facility] Comment on above: Performed By: #### L 501.2450, L500.2500, L100.0100, L500.3400, L501.5200 ####[facility] [address] [place], [address] Erythrocyte distribution width (RBC) [Ratio] 13.0 % Normal 11.6-14.6 [facility] Comment on above: Performed By: #### L 501.2450, L500.2500, L100.0100, L500.3400, L501.5200 ####[facility] [address] [place], [address] IG% 0.200 Normal 0.0-0.9 [facility] Comment on above: Result Comment: IG% - Immature Granulocytes (promyelocytes, myelocytes andmetamyelocytes) > 1% indicates that a LEFT SHIFT is Present. Performed By: #### L 501.2450, L500.2500, L100.0100, L500.3400, L501.5200 ####[facility] [address] [place], [address] Lymphocytes/100 WBC (Bld) 31.8 % Normal 19-41 [facility] Comment on above: Performed By: #### L 501.2450, L500.2500, L100.0100, L500.3400, L501.5200 ####[facility] [address] [place], [address] MCH (RBC) [Entitic mass] 31.3 pg Normal 27.0-32.0 [facility] Comment on above: Performed By: #### L 501.2450, L500.2500, L100.0100, L500.3400, L501.5200 ####[facility] [address] [place], [address] MCHC (RBC) [Mass/Vol] 34.4 g/dL Normal 32-36 [facility] Comment on above: Performed By: #### L 501.2450, L500.2500, L100.0100, L500.3400, L501.5200 ####[facility] [address] [place], [address] Monocytes/100 WBC (Bld) 10.5 % High 0-10 [facility] Comment on above: Performed By: #### L 501.2450, L500.2500, L100.0100, L500.3400, L501.5200 ####[facility] [address] [place], [address] Neutrophils/100 WBC (Bld) 50.2 % Normal 47-70 [facility] Comment on above: Performed By: #### L 501.2450, L500.2500, L100.0100, L500.3400, L501.5200 ####[facility] [address] [place], [address] Platelet mean volume (Bld) [Entitic vol] 9.9 fL Normal 6.2-12.0 [facility] Comment on above: Performed By: #### L 501.2450, L500.2500, L100.0100, L500.3400, L501.5200 ####[facility] [address] [place], [address] Platelets (Bld) [#/Vol] 238 10*3/uL Normal 150-450 [facility] Comment on above: Performed By: #### L 501.2450, L500.2500, L100.0100, L500.3400, L501.5200 ####[facility] [address] [place], [address] RDW SD 42.4 fl Normal 35.1-43.9 [facility] Comment on above: Performed By: #### L 501.2450, L500.2500, L100.0100, L500.3400, L501.5200 ####[facility] [address] [place], [address] Hematocrit (Bld) [Volume fraction] 34.3 % Low 40-54 [facility] Comment on above: Performed By: #### L 501.2450, L500.2500, L100.0100, L500.3400, L501.5200 ####[facility] [address] [place], [address] Hemoglobin (Bld) [Mass/Vol] 11.8 g/dL Low 13.0-16.5 [facility] Comment on above: Performed By: #### L 501.2450, L500.2500, L100.0100, L500.3400, L501.5200 ####[facility] [address] [place], [address] MCV (RBC) [Entitic vol] 91.0 fL Normal 80-94 [facility] Comment on above: Performed By: #### L 501.2450, L500.2500, L100.0100, L500.3400, L501.5200 ####[facility] [address] [place], [address] RBC (Bld) [#/Vol] 3.77 10*6/uL Low 4.6-6.2 [facility] Comment on above: Performed By: #### L 501.2450, L500.2500, L100.0100, L500.3400, L501.5200 ####[facility] [address] [place], [address] WBC (Bld) [#/Vol] 4.9 10*3/uL Normal 4.4-11.0 [facility] Comment on above: Performed By: #### L 501.2450, L500.2500, L100.0100, L500.3400, L501.5200 ####[facility] [address] [place], [place], [address] Carbon dioxide, total [Moles /volume] in Central venous bloodOrdered By: Ravinder Vance on 03-29-2025 CO2 [Moles/Vol] 22.2 mmol/L 21.0-32.0 [facility] Chest PA and Lateralon 03-29 Chest PA and Lateral Normal [facility] Chloride assayOrdered By: Piper Vance on 03-29-2025 Chloride [Moles/Vol] 106 mmol/L 98-108 [facility] Emergency Department Summary on 03-29-2025 Emergency Department Summary Normal [facility] Eosinophil %Ordered By: Arron Vance on 03-29-2025 Eosinophils/100 WBC (Bld) 6.7 % High 0-5 [facility] Erythrocyte distribution wid th ratioOrdered By: Ravinder Vance on 03-29-2025 Erythrocyte distribution width (RBC) [Ratio] 13.0 % 11.6-14.6 [facility] Glomerular filtration rate ( GFR) estimation/1.73 sq m using serum, plasma, or whole bOrdered By: Ravinder Vance on 03-29-2025 GFR/1.73 sq M.predicted among non-blacks MDRD (S/P/Bld) [Vol rate/Area] 44 mL/min/{1.73_m2} Low >60 [facility] Comment on above: mL/min/1.73m2 CKD-EP I Creatinine Equation (2020) Hematocrit Auto (Bld) [Volum e fraction]Ordered By: Ravinder Vance on 03-29-2025 Hematocrit (Bld) [Volume fraction] 34.3 % Low 40-54 [facility] Hemoglobin measurementOrdere d By: Ravinder Vance on 03-29-2025 Hemoglobin (Bld) [Mass/Vol] 11.8 g/dL Low 13.0-16.5 [facility] Immature granulocyte percent ageOrdered By: Ravinder Vance on 03-29-2025 Immature granulocytes/100 WBC (Bld) 0.200 % 0.0-0.9 [facility] Comment on above: IG% - Immature Granu locytes (promyelocytes, myelocytes and metamyelocytes) > 1% indicates that a LEFT SHIFT is Present. L499.0042on 03-29-2025 Trop T High Sen 35 ng/L High <=22 [facility] Comment on above: Performed By: #### L 499.0042 ####[facility] [address] [place], [address] L499.0043on 03-29-2025 Trop T High Sen Normal <=22 [facility] Comment on above: Result Comment: Canc elled via OM: Order cancelled - Patient discharged Performed By: #### L 499.0043 ####[facility] [address] [place], [address] L501.4021on 03-29-2025 Trop T High Sen 39 ng/L High <=22 [facility] Comment on above: Performed By: #### L 501.4021 ####[facility] [address] [place], [address] Laboratory - Chemistry and C hemistry - challengeOrdered By: Ravinder Vance on 03-29-2025 AST [Catalytic activity/Vol] 17 U/L <38 [facility] Lipaseon 03-29-2025 Lipase [Catalytic activity/Vol] 32 U/L Normal 13-75 [facility] Comment on above: Result Comment: Plea se note:LIPASE revised reference range effective 22.New Lipase methodology. Expected to produce lower valuesthan the previous assay method.NEW Reference Range: 13 - 75 U/L Performed By: #### L 501.2450, L500.2500, L100.0100, L500.3400, L501.5200 ####[facility] [address] [place], [address] Lipase measurementOrdered By : Ravinder Vance on 03-29-2025 Lipase [Catalytic activity/Vol] 32 U/L 13-75 [facility] Comment on above: Please note:LIPASE r evised reference range effective 22. New Lipase methodology. Expected to produce lower values than the previous assay method. NEW Reference Range: 13 - 75 U/L Liver Profileon 03-29-2025 Albumin [Mass/Vol] 4.2 g/dL Normal 3.4-4.8 [facility] Comment on above: Performed By: #### L 501.2450, L500.2500, L100.0100, L500.3400, L501.5200 ####[facility] [address] [place], [address] ALK PHOS 75 U/L Normal 40-129 [facility] Comment on above: Performed By: #### L 501.2450, L500.2500, L100.0100, L500.3400, L501.5200 ####[facility] [address] [place], [address] ALT [Catalytic activity/Vol] 24 U/L Normal <=46 [facility] Comment on above: Performed By: #### L 501.2450, L500.2500, L100.0100, L500.3400, L501.5200 ####[facility] [address] [place], [address] AST [Catalytic activity/Vol] 17 U/L Normal <=37 [facility] Comment on above: Performed By: #### L 501.2450, L500.2500, L100.0100, L500.3400, L501.5200 ####[facility] [address] [place], [address] Bilirubin [Mass/Vol] 0.49 mg/dL Normal 0.00-1.30 [facility] Comment on above: Performed By: #### L 501.2450, L500.2500, L100.0100, L500.3400, L501.5200 ####[facility] [address] [place], [address] Bilirubin.direct [Mass/Vol] 0.20 mg/dL Normal 0.00-0.30 [facility] Comment on above: Performed By: #### L 501.2450, L500.2500, L100.0100, L500.3400, L501.5200 ####[facility] [address] [place], [address] Globulin (S) [Mass/Vol] 2.6 g/dL Normal 2.2-4.[address] [facility] Comment on above: Performed By: #### L 501.2450, L500.2500, L100.0100, L500.3400, L501.5200 ####[facility] [address] [place], [address] T PROT 6.8 g/dL Normal 5.9-8.4 [facility] Comment on above: Performed By: #### L 501.2450, L500.2500, L100.0100, L500.3400, L501.5200 ####[facility] [address] [place], [address] Lymphocyte %Ordered By: Arron Vance on 03-29-2025 Lymphocytes/100 WBC (Bld) 31.8 % 19-41 [facility] MCV (mean corpuscular volume ) determinationOrdered By: Ravinder Vance on 03-29-2025 MCV (RBC) [Entitic vol] 91.0 fL 80-94 [facility] Magnesiumon 03-29-2025 Magnesium [Mass/Vol] 1.1 mg/dL Low 1.5-2.2 [facility] Comment on above: Performed By: #### L 501.2450, L500.2500, L100.0100, L500.3400, L501.5200 ####[facility] [address] [place], [address] Magnesium measurement (mass/ volume)Ordered By: Ravinder Vance on 03-29-2025 Magnesium (Unsp spec) [Mass/Vol] 1.1 mg/dL Low 1.5-2.2 [facility] Mean corpuscular hemoglobin (MCH) determinationOrdered By: Ravinder Vance on 03-29-2025 MCH (RBC) [Entitic mass] 31.3 pg 27.0-32.0 [facility] Mean corpuscular hemoglobin concentration (MCHC) determinationOrdered By: Ravinder Vance on 03-29-2025 MCHC (RBC) [Mass/Vol] 34.4 g/dL 32-36 [facility] Mean platelet volume determi nationOrdered By: Ravinder Vance on 03-29-2025 Platelet mean volume (Bld) [Entitic vol] 9.9 fL 6.2-12.0 [facility] Monocyte percentageOrdered B y: Ravinder Vance on 03-29-2025 Monocytes/100 WBC (Bld) 10.5 % High 0-10 [facility] Neutrophil %Ordered By: Arron Vance on 03-29-2025 Neutrophils/100 WBC (Bld) 50.2 % 47-70 [facility] No Panel InformationOrdered By: Ravinder Vance on 03-29-2025 17 U/L <38 [facility] Potassium measurement (mass/ volume)Ordered By: Ravinder Vance on 03-29-2025 Potassium (Unsp spec) [Mass/Vol] 4.2 mmol/L 3.3-5.1 [facility] RBC Auto (Bld) [#/Vol]Ordere d By: Ravinder Vance on 03-29-2025 RBC (Bld) [#/Vol] 3.77 10*6/uL Low 4.6-6.2 [facility] RDWOrdered By: Ravinder Vance on 03-29-2025 RDW 42.4 fl 35.1-43.9 [facility] Serum creatinine measurement (mass/volume)Ordered By: Ravinder Vance on 03-29-2025 Creatinine [Mass/Vol] 1.63 mg/dL High 0.70-1.20 [facility] Serum globulin measurementOr dered By: Ravinder Vance on 03-29-2025 Globulin (S) [Mass/Vol] 2.6 g/dL 2.2-4.2 [facility] Serum glucose measurement (m ass/volume)Ordered By: Ravinder Vance on 03-29-2025 Glucose [Mass/Vol] 136 mg/dL High 70-99 [facility] Serum or plasma alanine denis otransferase (ALT) measurementOrdered By: aRvinder Vance on 03-29-2025 ALT [Catalytic activity/Vol] 24 U/L <47 [facility] Serum or plasma albumin makeda urement (mass/volume)Ordered By: Ravinder Vance on 03-29-2025 Albumin [Mass/Vol] 4.2 g/dL 3.4-4.8 [facility] Serum or plasma alkaline neisha sphatase measurementOrdered By: Ravinder Vance on 03-29-2025 ALP [Catalytic activity/Vol] 75 U/L 40-129 [facility] Serum or plasma calcium makeda urement (mass/volume)Ordered By: Ravinder Vance on 03-29-2025 Calcium [Mass/Vol] 10.1 mg/dL 7.6-11.0 [facility] Serum or plasma urea nitroge n measurement (mass/volume)Ordered By: Ravinder Vance on 03-29-2025 Urea nitrogen [Mass/Vol] 34 mg/dL High 4-19 [facility] Sodium levelOrdered By: Arron Vance on 03-29-2025 Sodium [Moles/Vol] 142 mmol/L 133-145 [facility] Total proteinOrdered By: Elmer Vance on 03-29-2025 Protein [Mass/Vol] 6.8 g/dL 5.9-8.4 [facility] Troponin T.cardiac [Mass/vol ume] in Serum or Plasma by High sensitivity methodOrdered By: Ravinder Vance on 03-29-2025 Troponin T.cardiac High sensitivity method [Mass/Vol] 35 ng/L High <22 [facility] Troponin T.cardiac High sensitivity method [Mass/Vol] 39 ng/L High <22 [facility] Comment on above: Delta: 42 on 5-1446 White blood cell (WBC) count Ordered By: Ravinder Vance on 03-29-2025 WBC (Bld) [#/Vol] 4.9 10*3/uL 4.4-11.0 [facility] 36on 03-26-2025 36 Called patient to verify he was able to crop picker his plavix as they had to [...] told her to do something different. Aide LUIS ALBERTO aware and Patient is ok to just discontinue Plavix and take Brilinta as prescribed. No further intervention at this time. Normal [facility] D/C Summary- SPon 03-22-2025 D/C Summary- SP Normal [facility] PRU TEST (P2Y12)on PRU TEST (P2Y12) 191 Normal >=180 [facility] Comment on above: Result Comment: >180 - 376 PRU [P2Y12 Reaction Units] - No drug present 10-180 PRU [P2Y12 Reaction Units] - Decreased platelet reactivity to P2Y12 inhibitor. Performed By: #### L [id number] #### Camera Engineer: AURELIANO ARCHIBALD ([id number]) [facility] ([address] 36on 03-11-2025 36 I did. Normal [facility] 36on 03-05-2025 36 Name of caller: Kaelyn Contact phone number: [phone] Relationship to Patient: [facility] Outreach Lab Provider: Dr. Blackman Practice: Endovascular Chief Complaint/Reason for Call: Patient PRU lab was cancelled due to wrong color tube. If patient testing needs completed please reorder testing. Lab needs a christine tube, not a long top blue. Best time of day caller can be reached: any Patient advised that office/PCP has 24-48 business hours to return their call: Yes [facility] Office Visiton 03-04-2025 Follow-up visit [id number] Titus Davies am 1950 M Date Provider Department Center 03/04/2025 [id number] BLACKMAN [facility] NRO None Family History Problem Relation Age of Onset Diabetes Mother Diabetes Father Esophageal cancer Brother Bone cancer Brother Prostate cancer Brother Diabetes Brother Family Status - Relation Status Age at Mother Father Brother Brother Brother Alive Level of Service:02846 IN OFFICE/OUTPATIENT NEW MODERATE MDM 45 MINUTES Reason for Visit and Comments: New Patient [542] - aneurysm Normal [facility] Progress Noteon 03-04-2025 Progress Note History of [...] tablet, , Disp: , Rfl: Droplet Pen [place] 32G X 6 MM [facility], , Disp: , Rfl: famotidine (Pepcid) 20 MG tablet, , Disp: , Rfl: glimepiride (Amaryl) 4 MG tablet, , Disp: , Rfl: isosorbide mononitrate ER (Imdur) 30 MG 24 hr tablet, , Disp: , Rfl: Lancets (OneTouch Delica Plus [id number]) [facility], USE TO TEST BLOOD SUGAR TWICE DAILY [...] mg by mouth Nightly., Disp: , Rfl: Brodiepaposupriyaolesya SoloStar 300 UNIT/ML injection, , Disp: , [...] Mental Status Exam: Level of Alertness:Awake Orientation: person,place,time , Memory:normal Fund of Knowledge: normal Attention/Concentration : normal Language: mild transcortical expressive aphasia Dysarthria [...] with the pat (more content not included)... Normal [facility] 36on 02-17-2025 36 Name of caller: Abena morgan Contact phone number: [phone] Relationship to Patient: spouse/SO Provider: Dr. Blackman [...] hours to return their call: Yes Normal [facility] Neurology Visit Reporton Neurology Visit Report Normal [facility] Laboratory - Microbiology an d Antimicrobial susceptibilityOrdered By: Brenda Tovar on 02-06-2025 SARS-CoV-2 (COVID-19) RNA LIZ+probe Ql (Unsp spec) Not detected [facility] No Panel InformationOrdered By: Brenda Tovar on 02-06-2025 Influenza Types A,B Rapid (Clinic) Negative [facility] Urgent Care Visit Reporton 0 02-06-2025 Urgent Care Visit Report Normal [facility] MR/BMS.BVSon 02-01-2025 MR/BMS.BVS Normal [facility] MR/BMS.IMBon 01-27-2025 MR/BMS.IMB Normal [facility] PSA,Total - Annual Screenon 01-25-2025 PSA,TOT SCREEN 3.91 ng/mL Normal 0.02-4.00 [facility] Comment on above: Result Comment: This test was performed using the [employer] tPSAmethod. Measured values of a patient??sample can varydepending on the testing procedure used. PSA valuesdetermined on patient samples by different testingprocedures cannot be used interchangeably. If there is achange in PSA assays while monitoring therapy, sequentialtesting should be performed to confirm baseline values. Performed By: #### L 501.9910 ####[facility] [address] [place], [address] Basic Metabolic Profile (BMP )on 01-21-2025 BUN Normal 4-19 [facility] Comment on above: Result Comment: Canc elled via OM: Order cancelled - Patient discharged Performed By: #### L 100.0100, L500.2500 ####[facility] [address] [place], [address] BUN/CRE Normal 10-20 [facility] Comment on above: Result Comment: Canc elled via OM: Order cancelled - Patient discharged Performed By: #### L 100.0100, L500.2500 ####[facility] [address] [place], [address] Calcium Normal 7.6-11.0 [facility] Comment on above: Result Comment: Canc elled via OM: Order cancelled - Patient discharged Performed By: #### L 100.0100, L500.2500 ####[facility] [address] [place], [address] CL Normal 98-108 [facility] Comment on above: Result Comment: Canc elled via OM: Order cancelled - Patient discharged Performed By: #### L 100.0100, L500.2500 ####[facility] [address] [place], [address] CO2 Normal 21.0-32.0 [facility] Comment on above: Result Comment: Canc elled via OM: Order cancelled - Patient discharged Performed By: #### L 100.0100, L500.2500 ####[facility] [address] [place], [address] CREAT,SERUM Normal 0.70-1.20 [facility] Comment on above: Result Comment: Canc elled via OM: Order cancelled - Patient discharged Performed By: #### L 100.0100, L500.2500 ####[facility] [address] [place], [address] eGFR Normal >60 [facility] Comment on above: Result Comment: Canc elled via OM: Order cancelled - Patient discharged Performed By: #### L 100.0100, L500.2500 ####[facility] [address] [place], [address] GAP Normal 5-15 [facility] Comment on above: Result Comment: Canc elled via OM: Order cancelled - Patient discharged Performed By: #### L 100.0100, L500.2500 ####[facility] [address] [place], [address] GLU Normal 70-99 [facility] Comment on above: Result Comment: Canc elled via OM: Order cancelled - Patient discharged Performed By: #### L 100.0100, L500.2500 ####[facility] [address] [place], [address] Potassium Normal 3.3-5.1 [facility] [facility] Comment on above: Result Comment: Canc elled via OM: Order cancelled - Patient discharged Performed By: #### L 100.0100, L500.2500 ####[facility] [address] [place], [address] Basic Metabolic Profile (BMP) Normal 133-145 [facility] Comment on above: Result Comment: Canc elled via OM: Order cancelled - Patient discharged Performed By: #### L 100.0100, L500.2500 ####[facility] [address] [place], [address] CBC W/Diff, Automatedon 05-0 -2024 Absolute Neut Normal 2.0-7.7 [facility] Comment on above: Result Comment: Canc elled via OM: Order cancelled - Patient discharged Performed By: #### L 100.0100, L500.2500 ####[facility] [address] [place], [address] HCT Normal 40-54 [facility] Comment on above: Result Comment: Canc elled via OM: Order cancelled - Patient discharged Performed By: #### L 100.0100, L500.2500 ####[facility] [address] [place], [address] HGB Normal 13.0-16.5 [facility] Comment on above: Result Comment: Canc elled via OM: Order cancelled - Patient discharged Performed By: #### L 100.0100, L500.2500 ####[facility] [address] [place], [address] MCH Normal 27.0-32.0 [facility] Comment on above: Result Comment: Canc elled via OM: Order cancelled - Patient discharged Performed By: #### L 100.0100, L500.2500 ####[facility] [address] [place], [address] MCHC Normal 32-36 [facility] Comment on above: Result Comment: Canc elled via OM: Order cancelled - Patient discharged Performed By: #### L 100.0100, L500.2500 ####[facility] [address] [place], [address] MCV Normal 80-94 [facility] Comment on above: Result Comment: Canc elled via OM: Order cancelled - Patient discharged Performed By: #### L 100.0100, L500.2500 ####[facility] [address] [place], [address] NEUT% Normal 47-70 [facility] Comment on above: Result Comment: Canc elled via OM: Order cancelled - Patient discharged Performed By: #### L 100.0100, L500.2500 ####[facility] [address] [place], [address] PLT Normal 150-450 [facility] Comment on above: Result Comment: Canc elled via OM: Order cancelled - Patient discharged Performed By: #### L 100.0100, L500.2500 ####[facility] [address] [place], [address] RBC Normal 4.6-6.2 [facility] Comment on above: Result Comment: Canc elled via OM: Order cancelled - Patient discharged Performed By: #### L 100.0100, L500.2500 ####[facility] [address] [place], [address] RDW CV Normal 11.6-14.6 [facility] Comment on above: Result Comment: Canc elled via OM: Order cancelled - Patient discharged Performed By: #### L 100.0100, L500.2500 ####[facility] [address] [place], [address] RDW SD Normal 35.1-43.9 [facility] Comment on above: Result Comment: Canc elled via OM: Order cancelled - Patient discharged Performed By: #### L 100.0100, L500.2500 ####[facility] [address] [place], [address] WBC Normal 4.4-11.0 [facility] Comment on above: Result Comment: Canc elled via OM: Order cancelled - Patient discharged Performed By: #### L 100.0100, L500.2500 ####[facility] [address] [place], [address] Basic Metabolic Profile (BMP )on 01-20-2025 BUN Normal 4-19 [facility] Comment on above: Result Comment: Canc elled via OM: Order cancelled - Patient discharged Performed By: #### L 100.0100, L500.2500 ####[facility] [address] [place], [address] BUN/CRE Normal 10-20 [facility] Comment on above: Result Comment: Canc elled via OM: Order cancelled - Patient discharged Performed By: #### L 100.0100, L500.2500 ####[facility] [address] [place], [address] Calcium Normal 7.6-11.0 [facility] Comment on above: Result Comment: Canc elled via OM: Order cancelled - Patient discharged Performed By: #### L 100.0100, L500.2500 ####[facility] [address] [place], [address] CL Normal 98-108 [facility] Comment on above: Result Comment: Canc elled via OM: Order cancelled - Patient discharged Performed By: #### L 100.0100, L500.2500 ####[facility] [address] [place], [address] CO2 Normal 21.0-32.0 [facility] Comment on above: Result Comment: Canc elled via OM: Order cancelled - Patient discharged Performed By: #### L 100.0100, L500.2500 ####[facility] [address] [place], [address] CREAT,SERUM Normal 0.70-1.20 [facility] Comment on above: Result Comment: Canc elled via OM: Order cancelled - Patient discharged Performed By: #### L 100.0100, L500.2500 ####[facility] [address] [place], [address] eGFR Normal >60 [facility] Comment on above: Result Comment: Canc elled via OM: Order cancelled - Patient discharged Performed By: #### L 100.0100, L500.2500 ####[facility] [address] [place], [address] GAP Normal 5-15 [facility] Comment on above: Result Comment: Canc elled via OM: Order cancelled - Patient discharged Performed By: #### L 100.0100, L500.2500 ####[facility] [address] [place], [address] GLU Normal 70-99 [facility] Comment on above: Result Comment: Canc elled via OM: Order cancelled - Patient discharged Performed By: #### L 100.0100, L500.2500 ####[facility] [address] [place], [address] Potassium Normal 3.3-5.1 [facility] Comment on above: Result Comment: Canc elled via OM: Order cancelled - Patient discharged Performed By: #### L 100.0100, L500.2500 ####[facility] [address] [place], [address] Basic Metabolic Profile (BMP) Normal 133-145 [facility] Comment on above: Result Comment: Canc elled via OM: Order cancelled - Patient discharged Performed By: #### L 100.0100, L500.2500 ####[facility] [address] [place], [address] CBC W/Diff, Automatedon 05-0 -2024 Absolute Neut Normal 2.0-7.7 [facility] Comment on above: Result Comment: Canc elled via OM: Order cancelled - Patient discharged Performed By: #### L 100.0100, L500.2500 ####[facility] [address] [place], [address] HCT Normal 40-54 [facility] Comment on above: Result Comment: Canc elled via OM: Order cancelled - Patient discharged Performed By: #### L 100.0100, L500.2500 ####[facility] [address] [place], [address] HGB Normal 13.0-16.5 [facility] Comment on above: Result Comment: Canc elled via OM: Order cancelled - Patient discharged Performed By: #### L 100.0100, L500.2500 ####[facility] [address] [place], [address] MCH Normal 27.0-32.0 [facility] Comment on above: Result Comment: Canc elled via OM: Order cancelled - Patient discharged Performed By: #### L 100.0100, L500.2500 ####[facility] [address] [place], [address] MCHC Normal 32-36 [facility] Comment on above: Result Comment: Canc elled via OM: Order cancelled - Patient discharged Performed By: #### L 100.0100, L500.2500 ####[facility] [address] [place], [address] MCV Normal 80-94 [facility] Comment on above: Result Comment: Canc elled via OM: Order cancelled - Patient discharged Performed By: #### L 100.0100, L500.2500 ####[facility] [address] [place], [address] NEUT% Normal 47-70 [facility] Comment on above: Result Comment: Canc elled via OM: Order cancelled - Patient discharged Performed By: #### L 100.0100, L500.2500 ####[facility] [address] [place], [address] PLT Normal 150-450 [facility] Comment on above: Result Comment: Canc elled via OM: Order cancelled - Patient discharged Performed By: #### L 100.0100, L500.2500 ####[facility] [address] [place], [address] RBC Normal 4.6-6.2 [facility] Comment on above: Result Comment: Canc elled via OM: Order cancelled - Patient discharged Performed By: #### L 100.0100, L500.2500 ####[facility] [address] [place], [address] RDW CV Normal 11.6-14.6 [facility] Comment on above: Result Comment: Canc elled via OM: Order cancelled - Patient discharged Performed By: #### L 100.0100, L500.2500 ####[facility] [address] [place], [address] RDW SD Normal 35.1-43.9 [facility] Comment on above: Result Comment: Canc elled via OM: Order cancelled - Patient discharged Performed By: #### L 100.0100, L500.2500 ####[facility] [address] [place], [address] WBC Normal 4.4-11.0 [facility] Comment on above: Result Comment: Canc elled via OM: Order cancelled - Patient discharged Performed By: #### L 100.0100, L500.2500 ####[facility] [address] [place], [address] Basic Metabolic Profile (BMP )on 01-19-2025 BUN Normal 4-19 [facility] Comment on above: Result Comment: Canc elled via OM: Order cancelled - Patient discharged Performed By: #### L 100.0100, L500.2500 ####[facility] [address] [place], [address] BUN/CRE Normal 10-20 [facility] Comment on above: Result Comment: Canc elled via OM: Order cancelled - Patient discharged Performed By: #### L 100.0100, L500.2500 ####[facility] [address] [place], [address] Calcium Normal 7.6-11.0 [facility] Comment on above: Result Comment: Canc elled via OM: Order cancelled - Patient discharged Performed By: #### L 100.0100, L500.2500 ####[facility] [address] [place], [address] CL Normal 98-108 [facility] Comment on above: Result Comment: Canc elled via OM: Order cancelled - Patient discharged Performed By: #### L 100.0100, L500.2500 ####[facility] [address] [place], [address] CO2 Normal 21.0-32.0 [facility] Comment on above: Result Comment: Canc elled via OM: Order cancelled - Patient discharged Performed By: #### L 100.0100, L500.2500 ####[facility] [address] [place], [address] CREAT,SERUM Normal 0.70-1.20 [facility] Comment on above: Result Comment: Canc elled via OM: Order cancelled - Patient discharged Performed By: #### L 100.0100, L500.2500 ####[facility] [address] [place], [address] eGFR Normal >60 [facility] Comment on above: Result Comment: Canc elled via OM: Order cancelled - Patient discharged Performed By: #### L 100.0100, L500.2500 ####[facility] [address] [place], [address] GAP Normal 5-15 [facility] Comment on above: Result Comment: Canc elled via OM: Order cancelled - Patient discharged Performed By: #### L 100.0100, L500.2500 ####[facility] [address] [place], [address] GLU Normal 70-99 [facility] Comment on above: Result Comment: Canc elled via OM: Order cancelled - Patient discharged Performed By: #### L 100.0100, L500.2500 ####[facility] [address] [place], [address] Potassium Normal 3.3-5.1 [facility] Comment on above: Result Comment: Canc elled via OM: Order cancelled - Patient discharged Performed By: #### L 100.0100, L500.2500 ####[facility] [address] [place], [address] Basic Metabolic Profile (BMP) Normal 133-145 [facility] Comment on above: Result Comment: Canc elled via OM: Order cancelled - Patient discharged Performed By: #### L 100.0100, L500.2500 ####[facility] [address] [place], [address] CBC W/Diff, Automatedon 05-0 6-2025 Absolute Neut Normal 2.0-7.7 [facility] Comment on above: Result Comment: Canc elled via OM: Order cancelled - Patient discharged Performed By: #### L 100.0100, L500.2500 ####[facility] [address] [place], [address] HCT Normal 40-54 [facility] Comment on above: Result Comment: Canc elled via OM: Order cancelled - Patient discharged Performed By: #### L 100.0100, L500.2500 ####[facility] [address] [place], [address] HGB Normal 13.0-16.5 [facility] Comment on above: Result Comment: Canc elled via OM: Order cancelled - Patient discharged Performed By: #### L 100.0100, L500.2500 ####[facility] [address] [place], [address] MCH Normal 27.0-32.0 [facility] Comment on above: Result Comment: Canc elled via OM: Order cancelled - Patient discharged Performed By: #### L 100.0100, L500.2500 ####[facility] [address] [place], [address] MCHC Normal 32-36 [facility] Comment on above: Result Comment: Canc elled via OM: Order cancelled - Patient discharged Performed By: #### L 100.0100, L500.2500 ####[facility] [address] [place], [address] MCV Normal 80-94 [facility] Comment on above: Result Comment: Canc elled via OM: Order cancelled - Patient discharged Performed By: #### L 100.0100, L500.2500 ####[facility] [address] [place], [address] NEUT% Normal 47-70 [facility] Comment on above: Result Comment: Canc elled via OM: Order cancelled - Patient discharged Performed By: #### L 100.0100, L500.2500 ####[facility] [address] [place], [address] PLT Normal 150-450 [facility] Comment on above: Result Comment: Canc elled via OM: Order cancelled - Patient discharged Performed By: #### L 100.0100, L500.2500 ####[facility] [address] [place], [address] RBC Normal 4.6-6.2 [facility] Comment on above: Result Comment: Canc elled via OM: Order cancelled - Patient discharged Performed By: #### L 100.0100, L500.2500 ####[facility] [address] [place], [address] RDW CV Normal 11.6-14.6 [facility] Comment on above: Result Comment: Canc elled via OM: Order cancelled - Patient discharged Performed By: #### L 100.0100, L500.2500 ####[facility] [address] [place], [address] RDW SD Normal 35.1-43.9 [facility] Comment on above: Result Comment: Canc elled via OM: Order cancelled - Patient discharged Performed By: #### L 100.0100, L500.2500 ####[facility] [address] [place], [address] WBC Normal 4.4-11.0 [facility] Comment on above: Result Comment: Canc elled via OM: Order cancelled - Patient discharged Performed By: #### L 100.0100, L500.2500 ####[facility] [address] [place], [address] Basic Metabolic Profile (BMP )on 01-18-2025 BUN Normal 4-19 [facility] Comment on above: Result Comment: Canc elled via OM: Order cancelled - Patient discharged Performed By: #### L 100.0100, L500.2500 ####[facility] [address] [place], [address] BUN/CRE Normal 10-20 [facility] Comment on above: Result Comment: Canc elled via OM: Order cancelled - Patient discharged Performed By: #### L 100.0100, L500.2500 ####[facility] [address] [place], [address] Calcium Normal 7.6-11.0 [facility] Comment on above: Result Comment: Canc elled via OM: Order cancelled - Patient discharged Performed By: #### L 100.0100, L500.2500 ####[facility] [address] [place], [address] CL Normal 98-108 [facility] Comment on above: Result Comment: Canc elled via OM: Order cancelled - Patient discharged Performed By: #### L 100.0100, L500.2500 ####[facility] [address] [place], [address] CO2 Normal 21.0-32.0 [facility] Comment on above: Result Comment: Canc elled via OM: Order cancelled - Patient discharged Performed By: #### L 100.0100, L500.2500 ####[facility] [address] [place], [address] CREAT,SERUM Normal 0.70-1.20 [facility] Comment on above: Result Comment: Canc elled via OM: Order cancelled - Patient discharged Performed By: #### L 100.0100, L500.2500 ####[facility] [address] [place], [address] eGFR Normal >60 [facility] Comment on above: Result Comment: Canc elled via OM: Order cancelled - Patient discharged Performed By: #### L 100.0100, L500.2500 ####[facility] [address] [place], [address] GAP Normal 5-15 [facility] Comment on above: Result Comment: Canc elled via OM: Order cancelled - Patient discharged Performed By: #### L 100.0100, L500.2500 ####[facility] [address] [place], [address] GLU Normal 70-99 [facility] Comment on above: Result Comment: Canc elled via OM: Order cancelled - Patient discharged Performed By: #### L 100.0100, L500.2500 ####[facility] [address] [place], [address] Potassium Normal 3.3-5.1 [facility] Comment on above: Result Comment: Canc elled via OM: Order cancelled - Patient discharged Performed By: #### L 100.0100, L500.2500 ####[facility] [address] [place], [address] Basic Metabolic Profile (BMP) Normal 133-145 [facility] Comment on above: Result Comment: Canc elled via OM: Order cancelled - Patient discharged Performed By: #### L 100.0100, L500.2500 ####[facility] [address] [place], [address] CBC W/Diff, Automatedon 05-0 5-2024 Absolute Neut Normal 2.0-7.7 [facility] Comment on above: Result Comment: Canc elled via OM: Order cancelled - Patient discharged Performed By: #### L 100.0100, L500.2500 ####[facility] [address] [place], [address] HCT Normal 40-54 [facility] Comment on above: Result Comment: Canc elled via OM: Order cancelled - Patient discharged Performed By: #### L 100.0100, L500.2500 ####[facility] [address] [place], [address] HGB Normal 13.0-16.5 [facility] Comment on above: Result Comment: Canc elled via OM: Order cancelled - Patient discharged Performed By: #### L 100.0100, L500.2500 ####[facility] [address] [place], [address] MCH Normal 27.0-32.0 [facility] Comment on above: Result Comment: Canc elled via OM: Order cancelled - Patient discharged Performed By: #### L 100.0100, L500.2500 ####[facility] [address] [place], [address] MCHC Normal 32-36 [facility] Comment on above: Result Comment: Canc elled via OM: Order cancelled - Patient discharged Performed By: #### L 100.0100, L500.2500 ####[facility] [address] [place], [address] MCV Normal 80-94 [facility] Comment on above: Result Comment: Canc elled via OM: Order cancelled - Patient discharged Performed By: #### L 100.0100, L500.2500 ####[facility] [address] [place], [address] NEUT% Normal 47-70 [facility] Comment on above: Result Comment: Canc elled via OM: Order cancelled - Patient discharged Performed By: #### L 100.0100, L500.2500 ####[facility] [address] [place], [address] PLT Normal 150-450 [facility] Comment on above: Result Comment: Canc elled via OM: Order cancelled - Patient discharged Performed By: #### L 100.0100, L500.2500 ####[facility] [address] [place], [address] RBC Normal 4.6-6.2 [facility] Comment on above: Result Comment: Canc elled via OM: Order cancelled - Patient discharged Performed By: #### L 100.0100, L500.2500 ####[facility] [address] [place], [address] RDW CV Normal 11.6-14.6 [facility] Comment on above: Result Comment: Canc elled via OM: Order cancelled - Patient discharged Performed By: #### L 100.0100, L500.2500 ####[facility] [address] [place], [address] RDW SD Normal 35.1-43.9 [facility] Comment on above: Result Comment: Canc elled via OM: Order cancelled - Patient discharged Performed By: #### L 100.0100, L500.2500 ####[facility] [address] [place], [address] WBC Normal 4.4-11.0 [facility] Comment on above: Result Comment: Canc elled via OM: Order cancelled - Patient discharged Performed By: #### L 100.0100, L500.2500 ####[facility] [address] [place], [address] Basic Metabolic Profile (BMP )on 01-17-2025 BUN Normal 4-19 [facility] Comment on above: Result Comment: Canc elled via OM: Order cancelled - Patient discharged Performed By: #### L 500.2500, L100.0100 ####[facility] [address] [place], [address] BUN/CRE Normal 10-20 [facility] Comment on above: Result Comment: Canc elled via OM: Order cancelled - Patient discharged Performed By: #### L 500.2500, L100.0100 ####[facility] [address] [place], [address] Calcium Normal 7.6-11.0 [facility] Comment on above: Result Comment: Canc elled via OM: Order cancelled - Patient discharged Performed By: #### L 500.2500, L100.0100 ####[facility] [address] [place], [address] CL Normal 98-108 [facility] Comment on above: Result Comment: Canc elled via OM: Order cancelled - Patient discharged Performed By: #### L 500.2500, L100.0100 ####[facility] [address] [place], [address] CO2 Normal 21.0-32.0 [facility] Comment on above: Result Comment: Canc elled via OM: Order cancelled - Patient discharged Performed By: #### L 500.2500, L100.0100 ####[facility] [address] [place], [address] CREAT,SERUM Normal 0.70-1.20 [facility] Comment on above: Result Comment: Canc elled via OM: Order cancelled - Patient discharged Performed By: #### L 500.2500, L100.0100 ####[facility] [address] [place], [address] eGFR Normal >60 [facility] Comment on above: Result Comment: Canc elled via OM: Order cancelled - Patient discharged Performed By: #### L 500.2500, L100.0100 ####[facility] [address] [place], [address] GAP Normal 5-15 [facility] Comment on above: Result Comment: Canc elled via OM: Order cancelled - Patient discharged Performed By: #### L 500.2500, L100.0100 ####[facility] [address] [place], [address] GLU Normal 70-99 [facility] Comment on above: Result Comment: Canc elled via OM: Order cancelled - Patient discharged Performed By: #### L 500.2500, L100.0100 ####[facility] [address] [place], [address] Potassium Normal 3.3-5.1 [facility] Comment on above: Result Comment: Canc elled via OM: Order cancelled - Patient discharged Performed By: #### L 500.2500, L100.0100 ####[facility] [address] [place], [address] Basic Metabolic Profile (BMP) Normal 133-145 [facility] Comment on above: Result Comment: Canc elled via OM: Order cancelled - Patient discharged Performed By: #### L 500.2500, L100.0100 ####[facility] [address] [place], [address] CBC W/Diff, Automatedon 05-0 -2024 Absolute Neut Normal 2.0-7.7 [facility] Comment on above: Result Comment: Canc elled via OM: Order cancelled - Patient discharged Performed By: #### L 500.2500, L100.0100 ####[facility] [address] [place], [address] HCT Normal 40-54 [facility] Comment on above: Result Comment: Canc elled via OM: Order cancelled - Patient discharged Performed By: #### L 500.2500, L100.0100 ####[facility] [address] [place], [address] HGB Normal 13.0-16.5 [facility] Comment on above: Result Comment: Canc elled via OM: Order cancelled - Patient discharged Performed By: #### L 500.2500, L100.0100 ####[facility] [address] [place], [address] MCH Normal 27.0-32.0 [facility] Comment on above: Result Comment: Canc elled via OM: Order cancelled - Patient discharged Performed By: #### L 500.2500, L100.0100 ####[facility] [address] [place], [address] MCHC Normal 32-36 [facility] Comment on above: Result Comment: Canc elled via OM: Order cancelled - Patient discharged Performed By: #### L 500.2500, L100.0100 ####[facility] [address] [place], [address] MCV Normal 80-94 [facility] Comment on above: Result Comment: Canc elled via OM: Order cancelled - Patient discharged Performed By: #### L 500.2500, L100.0100 ####[facility] [address] [place], [address] NEUT% Normal 47-70 [facility] Comment on above: Result Comment: Canc elled via OM: Order cancelled - Patient discharged Performed By: #### L 500.2500, L100.0100 ####[facility] [address] [place], [address] PLT Normal 150-450 [facility] Comment on above: Result Comment: Canc elled via OM: Order cancelled - Patient discharged Performed By: #### L 500.2500, L100.0100 ####[facility] [address] [place], [address] RBC Normal 4.6-6.2 [facility] Comment on above: Result Comment: Canc elled via OM: Order cancelled - Patient discharged Performed By: #### L 500.2500, L100.0100 ####[facility] [address] [place], [address] RDW CV Normal 11.6-14.6 [facility] Comment on above: Result Comment: Canc elled via OM: Order cancelled - Patient discharged Performed By: #### L 500.2500, L100.0100 ####[facility] [address] [place], [address] RDW SD Normal 35.1-43.9 [facility] Comment on above: Result Comment: Canc elled via OM: Order cancelled - Patient discharged Performed By: #### L 500.2500, L100.0100 ####[facility] [address] [place], [address] WBC Normal 4.4-11.0 [facility] Comment on above: Result Comment: Canc elled via OM: Order cancelled - Patient discharged Performed By: #### L 500.2500, L100.0100 ####[facility] [address] [place], [address] Basic Metabolic Profile (BMP )on 01-16-2025 BUN Normal 4-19 [facility] Comment on above: Result Comment: Canc elled via OM: Order cancelled - Patient discharged Performed By: #### L 500.2500, L100.0100 ####[facility] [address] [place], [address] BUN/CRE Normal 10-20 [facility] Comment on above: Result Comment: Canc elled via OM: Order cancelled - Patient discharged Performed By: #### L 500.2500, L100.0100 ####[facility] [address] [place], [address] Calcium Normal 7.6-11.0 [facility] Comment on above: Result Comment: Canc elled via OM: Order cancelled - Patient discharged Performed By: #### L 500.2500, L100.0100 ####[facility] [address] [place], [address] CL Normal 98-108 [facility] Comment on above: Result Comment: Canc elled via OM: Order cancelled - Patient discharged Performed By: #### L 500.2500, L100.0100 ####[facility] [address] [place], [address] CO2 Normal 21.0-32.0 [facility] Comment on above: Result Comment: Canc elled via OM: Order cancelled - Patient discharged Performed By: #### L 500.2500, L100.0100 ####[facility] [address] [place], [address] CREAT,SERUM Normal 0.70-1.20 [facility] Comment on above: Result Comment: Canc elled via OM: Order cancelled - Patient discharged Performed By: #### L 500.2500, L100.0100 ####[facility] [address] [place], [address] eGFR Normal >60 [facility] Comment on above: Result Comment: Canc elled via OM: Order cancelled - Patient discharged Performed By: #### L 500.2500, L100.0100 ####[facility] [address] [place], [address] GAP Normal 5-15 [facility] Comment on above: Result Comment: Canc elled via OM: Order cancelled - Patient discharged Performed By: #### L 500.2500, L100.0100 ####[facility] [address] [place], [address] GLU Normal 70-99 [facility] Comment on above: Result Comment: Canc elled via OM: Order cancelled - Patient discharged Performed By: #### L 500.2500, L100.0100 ####[facility] [address] [place], [address] Potassium Normal 3.3-5.1 [facility] Comment on above: Result Comment: Canc elled via OM: Order cancelled - Patient discharged Performed By: #### L 500.2500, L100.0100 ####[facility] [address] [place], [address] Basic Metabolic Profile (BMP) Normal 133-145 [facility] Comment on above: Result Comment: Canc elled via OM: Order cancelled - Patient discharged Performed By: #### L 500.2500, L100.0100 ####[facility] [address] [place], [address] CBC W/Diff, Automatedon 05-0 3-2024 Absolute Neut Normal 2.0-7.7 [facility] Comment on above: Result Comment: Canc elled via OM: Order cancelled - Patient discharged Performed By: #### L 500.2500, L100.0100 ####[facility] [address] [place], [address] HCT Normal 40-54 [facility] Comment on above: Result Comment: Canc elled via OM: Order cancelled - Patient discharged Performed By: #### L 500.2500, L100.0100 ####[facility] [address] [place], [address] HGB Normal 13.0-16.5 [facility] Comment on above: Result Comment: Canc elled via OM: Order cancelled - Patient discharged Performed By: #### L 500.2500, L100.0100 ####[facility] [address] [place], [address] MCH Normal 27.0-32.0 [facility] Comment on above: Result Comment: Canc elled via OM: Order cancelled - Patient discharged Performed By: #### L 500.2500, L100.0100 ####[facility] [address] [place], [address] MCHC Normal 32-36 [facility] Comment on above: Result Comment: Canc elled via OM: Order cancelled - Patient discharged Performed By: #### L 500.2500, L100.0100 ####[facility] [address] [place], [address] MCV Normal 80-94 [facility] Comment on above: Result Comment: Canc elled via OM: Order cancelled - Patient discharged Performed By: #### L 500.2500, L100.0100 ####[facility] [address] [place], [address] NEUT% Normal 47-70 [facility] Comment on above: Result Comment: Canc elled via OM: Order cancelled - Patient discharged Performed By: #### L 500.2500, L100.0100 ####[facility] [address] [place], [address] PLT Normal 150-450 [facility] Comment on above: Result Comment: Canc elled via OM: Order cancelled - Patient discharged Performed By: #### L 500.2500, L100.0100 ####[facility] [address] [place], [address] RBC Normal 4.6-6.2 [facility] Comment on above: Result Comment: Canc elled via OM: Order cancelled - Patient discharged Performed By: #### L 500.2500, L100.0100 ####[facility] [address] [place], [address] RDW CV Normal 11.6-14.6 [facility] Comment on above: Result Comment: Canc elled via OM: Order cancelled - Patient discharged Performed By: #### L 500.2500, L100.0100 ####[facility] [address] [place], [address] RDW SD Normal 35.1-43.9 [facility] Comment on above: Result Comment: Canc elled via OM: Order cancelled - Patient discharged Performed By: #### L 500.2500, L100.0100 ####[facility] [address] [place], [address] WBC Normal 4.4-11.0 [facility] Comment on above: Result Comment: Canc elled via OM: Order cancelled - Patient discharged Performed By: #### L 500.2500, L100.0100 ####[facility] [address] [place], [address] Basic Metabolic Profile (BMP )on 01-15-2025 BUN Normal 4-19 [facility] Comment on above: Result Comment: Canc elled via OM: Order cancelled - Patient discharged Performed By: #### L 500.2500, L100.0100 ####[facility] [address] [place], [address] BUN/CRE Normal 10-20 [facility] Comment on above: Result Comment: Canc elled via OM: Order cancelled - Patient discharged Performed By: #### L 500.2500, L100.0100 ####[facility] [address] [place], [address] Calcium Normal 7.6-11.0 [facility] Comment on above: Result Comment: Canc elled via OM: Order cancelled - Patient discharged Performed By: #### L 500.2500, L100.0100 ####[facility] [address] [place], [address] CL Normal 98-108 [facility] Comment on above: Result Comment: Canc elled via OM: Order cancelled - Patient discharged Performed By: #### L 500.2500, L100.0100 ####[facility] [address] [place], [address] CO2 Normal 21.0-32.0 [facility] Comment on above: Result Comment: Canc elled via OM: Order cancelled - Patient discharged Performed By: #### L 500.2500, L100.0100 ####[facility] [address] [place], [address] CREAT,SERUM Normal 0.70-1.20 [facility] Comment on above: Result Comment: Canc elled via OM: Order cancelled - Patient discharged Performed By: #### L 500.2500, L100.0100 ####[facility] [address] [place], [address] eGFR Normal >60 [facility] Comment on above: Result Comment: Canc elled via OM: Order cancelled - Patient discharged Performed By: #### L 500.2500, L100.0100 ####[facility] [address] [place], [address] GAP Normal 5-15 [facility] Comment on above: Result Comment: Canc elled via OM: Order cancelled - Patient discharged Performed By: #### L 500.2500, L100.0100 ####[facility] [address] [place], [address] GLU Normal 70-99 [facility] Comment on above: Result Comment: Canc elled via OM: Order cancelled - Patient discharged Performed By: #### L 500.2500, L100.0100 ####[facility] [address] [place], [address] Potassium Normal 3.3-5.1 [facility] Comment on above: Result Comment: Canc elled via OM: Order cancelled - Patient discharged Performed By: #### L 500.2500, L100.0100 ####[facility] [address] [place], [address] Basic Metabolic Profile (BMP) Normal 133-145 [facility] Comment on above: Result Comment: Canc elled via OM: Order cancelled - Patient discharged Performed By: #### L 500.2500, L100.0100 ####[facility] [address] [place], [address] CBC W/Diff, Automatedon 05-0 2-2024 Absolute Neut Normal 2.0-7.7 [facility] Comment on above: Result Comment: Canc elled via OM: Order cancelled - Patient discharged Performed By: #### L 500.2500, L100.0100 ####[facility] [address] [place], [address] HCT Normal 40-54 [facility] Comment on above: Result Comment: Canc elled via OM: Order cancelled - Patient discharged Performed By: #### L 500.2500, L100.0100 ####[facility] [address] [place], [address] HGB Normal 13.0-16.5 [facility] Comment on above: Result Comment: Canc elled via OM: Order cancelled - Patient discharged Performed By: #### L 500.2500, L100.0100 ####[facility] [address] [place], [address] MCH Normal 27.0-32.0 [facility] Comment on above: Result Comment: Canc elled via OM: Order cancelled - Patient discharged Performed By: #### L 500.2500, L100.0100 ####[facility] [address] [place], [address] MCHC Normal 32-36 [facility] Comment on above: Result Comment: Canc elled via OM: Order cancelled - Patient discharged Performed By: #### L 500.2500, L100.0100 ####[facility] [address] [place], [address] MCV Normal 80-94 [facility] Comment on above: Result Comment: Canc elled via OM: Order cancelled - Patient discharged Performed By: #### L 500.2500, L100.0100 ####[facility] [address] [place], [address] NEUT% Normal 47-70 [facility] Comment on above: Result Comment: Canc elled via OM: Order cancelled - Patient discharged Performed By: #### L 500.2500, L100.0100 ####[facility] [address] [place], [address] PLT Normal 150-450 [facility] Comment on above: Result Comment: Canc elled via OM: Order cancelled - Patient discharged Performed By: #### L 500.2500, L100.0100 ####[facility] [address] [place], [address] RBC Normal 4.6-6.2 [facility] Comment on above: Result Comment: Canc elled via OM: Order cancelled - Patient discharged Performed By: #### L 500.2500, L100.0100 ####[facility] [address] [place], [address] RDW CV Normal 11.6-14.6 [facility] Comment on above: Result Comment: Canc elled via OM: Order cancelled - Patient discharged Performed By: #### L 500.2500, L100.0100 ####[facility] [address] [place], [address] RDW SD Normal 35.1-43.9 [facility] Comment on above: Result Comment: Canc elled via OM: Order cancelled - Patient discharged Performed By: #### L 500.2500, L100.0100 ####[facility] [address] [place], [address] WBC Normal 4.4-11.0 [facility] Comment on above: Result Comment: Canc elled via OM: Order cancelled - Patient discharged Performed By: #### L 500.2500, L100.0100 ####[facility] [address] [place], [address] SP/HP.SP.Hollie 01-15-2025 SP/HP.SP.EV Normal [facility] Absolute lymphocyte countOrd ered By: Renae Rubalcava on 01-14-2025 Lymphocytes Auto (Unsp spec) [#/Vol] 1.91 10*3/uL 0.83-4.51 [facility] Absolute neutrophil countOrd ered By: Renae Rubalcava on 01-14-2025 Neutrophils (Bld) [#/Vol] 2.6 10*3/uL 2.0-7.7 [facility] Anion gap in Serum or Plasma Ordered By: Renae Rubalcava on 01-14-2025 Anion gap [Moles/Vol] 10 mmol/L 5-15 [facility] Automated lymphocyte count a s percentage of total leukocytesOrdered By: Renae Rubalcava on 01-14-2025 Lymphocytes/100 WBC Auto (Unsp spec) 35.2 % - [facility] BUN/creatinine ratioOrdered By: Renae Rubalcava on 01-14-2025 Urea nitrogen/Creatinine [Mass ratio] 18.3 mg/mg - [facility] Basic Metabolic Profile (BMP )on 01-14-2025 BUN/CRE 18.3 RATIO Normal - [facility] Comment on above: Performed By: #### L 500.2500, L100.0100 ####[facility] [address] [place], [address] Calcium [Mass/Vol] 9.5 mg/dL Normal 7.6-11.0 [facility] Comment on above: Performed By: #### L 500.2500, L100.0100 ####[facility] [address] [place], [address] Chloride [Moles/Vol] 106 mmol/L Normal 98-108 [facility] Comment on above: Performed By: #### L 500.2500, L100.0100 ####[facility] [address] [place], [address] CO2 [Moles/Vol] 23.5 mmol/L Normal 21.0-32.0 [facility] Comment on above: Performed By: #### L 500.2500, L100.0100 ####[facility] [address] [place], [address] Creatinine [Mass/Vol] 1.40 mg/dL High 0.70-1.20 [facility] Comment on above: Performed By: #### L 500.2500, L100.0100 ####[facility] [address] [place], [address] ECRCL 47.40 ml/min Low 50-250 [facility] Comment on above: Performed By: #### L 500.2500, L100.0100 ####[facility] [address] [place], [address] GAP 10 Normal 5-15 [facility] Comment on above: Performed By: #### L 500.2500, L100.0100 ####[facility] [address] [place], [address] GFR/1.73 sq M.predicted among non-blacks MDRD (S/P/Bld) [Vol rate/Area] 53 mL/min/{1.73_m2} Low >60 [facility] Comment on above: Result Comment: mL/m in/1.73m2 CKD-EPI Creatinine Equation (2021) Performed By: #### L 500.2500, L100.0100 ####[facility] [address] [place], [address] Glucose [Mass/Vol] 113 mg/dL High 70-99 [facility] Comment on above: Performed By: #### L 500.2500, L100.0100 ####[facility] [address] [place], [address] Potassium [Moles/Vol] 4.1 mmol/L Normal 3.3-5.1 [facility] Comment on above: Performed By: #### L 500.2500, L100.0100 ####[facility] [address] [place], [address] Sodium [Moles/Vol] 140 mmol/L Normal 133-145 [facility] Comment on above: Performed By: #### L 500.2500, L100.0100 ####[facility] [address] [place], [address] Urea nitrogen [Mass/Vol] 26 mg/dL High 4-19 [facility] Comment on above: Performed By: #### L 500.2500, L100.0100 ####[facility] [address] [place], [address] Basophil percentageOrdered B y: Renaenydia Rubalcava on 01-14-2025 Basophils/100 WBC (Bld) 0.2 % 0-1 [facility] Bedside Glucoseon 01-14-2025 FINGERSTICK GLU 254 mg/dL High 74-106 [facility] Comment on above: Result Comment: ANGELA GEMENT OF PATIENT CARE PER NURSING PROTOCOL Performed By: #### L 501.080 ####[facility] [address] [place], [address] FINGERSTICK GLU 121 mg/dL High 74-106 [facility] Comment on above: Result Comment: ANGELA GEMENT OF PATIENT CARE PER NURSING PROTOCOL Performed By: #### L 501.080 ####[facility] [address] [place], [address] CBC W/Diff, Automatedon 05-0 -5 Absolute Lymph 1.91 X10 3/uL Normal 0.83-4.51 [facility] Comment on above: Performed By: #### L 500.2500, L100.0100 ####[facility] [address] [place], [address] Absolute Neut 2.6 X10 3/uL Normal 2.0-7.7 [facility] Comment on above: Performed By: #### L 500.2500, L100.0100 ####[facility] [address] [place], [address] Basophils/100 WBC (Bld) 0.2 % Normal 0-1 [facility] Comment on above: Performed By: #### L 500.2500, L100.0100 ####[facility] [address] [place], [address] Eosinophils/100 WBC (Bld) 3.9 % Normal 0-5 [facility] Comment on above: Performed By: #### L 500.2500, L100.0100 ####[facility] [address] [place], [address] Erythrocyte distribution width (RBC) [Ratio] 12.6 % Normal 11.6-14.6 [facility] Comment on above: Performed By: #### L 500.2500, L100.0100 ####[facility] [address] [place], [address] Hematocrit (Bld) [Volume fraction] 36.6 % Low 40-54 [facility] Comment on above: Performed By: #### L 500.2500, L100.0100 ####[facility] [address] [place], [address] Hemoglobin (Bld) [Mass/Vol] 12.7 g/dL Low 13.0-16.5 [facility] Comment on above: Performed By: #### L 500.2500, L100.0100 ####[facility] [address] [place], [address] IG% 0.200 Normal 0.0-0.9 [facility] Comment on above: Result Comment: IG% - Immature Granulocytes (promyelocytes, myelocytes andmetamyelocytes) > 1% indicates that a LEFT SHIFT is Present. Performed By: #### L 500.2500, L100.0100 ####[facility] [address] [place], [address] Lymphocytes/100 WBC (Bld) 35.2 % Normal 19-41 [facility] Comment on above: Performed By: #### L 500.2500, L100.0100 ####[facility] [address] [place], [address] MCH (RBC) [Entitic mass] 30.8 pg Normal 27.0-32.0 [facility] Comment on above: Performed By: #### L 500.2500, L100.0100 ####[facility] [address] [place], [address] MCHC (RBC) [Mass/Vol] 34.7 g/dL Normal 32-36 [facility] Comment on above: Performed By: #### L 500.2500, L100.0100 ####[facility] [address] [place], [address] MCV (RBC) [Entitic vol] 88.8 fL Normal 80-94 [facility] Comment on above: Performed By: #### L 500.2500, L100.0100 ####[facility] [address] [place], [address] Monocytes/100 WBC (Bld) 13.3 % High 0-10 [facility] Comment on above: Performed By: #### L 500.2500, L100.0100 ####[facility] [address] [place], [address] Neutrophils/100 WBC (Bld) 47.2 % Normal 47-70 [facility] Comment on above: Performed By: #### L 500.2500, L100.0100 ####[facility] [address] [place], [address] Nucleated RBC (Bld) [#/Vol] 0 10*3/uL Normal 0-5 [facility] Comment on above: Performed By: #### L 500.2500, L100.0100 ####[facility] [address] [place], [address] Platelet mean volume (Bld) [Entitic vol] 10.0 fL Normal 6.2-12.0 [facility] Comment on above: Performed By: #### L 500.2500, L100.0100 ####[facility] [address] [place], [address] Platelets (Bld) [#/Vol] 253 10*3/uL Normal 150-450 [facility] Comment on above: Performed By: #### L 500.2500, L100.0100 ####[facility] [address] [place], [address] RBC (Bld) [#/Vol] 4.12 10*6/uL Low 4.6-6.2 [facility] Comment on above: Performed By: #### L 500.2500, L100.0100 ####[facility] [address] [place], [address] RDW SD 41.3 fl Normal 35.1-43.9 [facility] Comment on above: Performed By: #### L 500.2500, L100.0100 ####[facility] [address] [place], [address] WBC (Bld) [#/Vol] 5.4 10*3/uL Normal 4.4-11.0 [facility] Comment on above: Performed By: #### L 500.2500, L100.0100 ####[facility] [address] [place], [place], [id number] Carbon dioxide, total [Moles /volume] in Central venous bloodOrdered By: Renae Rubalcava on 01-14-2025 CO2 [Moles/Vol] 23.5 mmol/L 21.0-32.0 [facility] Chloride assayOrdered By: Na na Gini on 01-14-2025 Chloride [Moles/Vol] 106 mmol/L 98-108 [facility] Discharge Instructionon 050 Discharge Instruction Normal [facility] Eosinophil percentageOrdered By: Renae Rubalcava on 01-14-2025 Eosinophils/100 WBC (Bld) 3.9 % 0-5 [facility] Erythrocyte distribution wid th ratioOrdered By: Renae Rubalcava on 01-14-2025 Erythrocyte distribution width (RBC) [Ratio] 12.6 % 11.6-14.6 [facility] Erythrocyte distribution wid th standard deviationOrdered By: Renae Rubalcava on 01-14-2025 Erythrocyte distribution width (RBC) [Ratio] 41.3 fl 35.1-43.9 [facility] Glomerular filtration rate ( GFR) estimation/1.73 sq m using serum, plasma, or whole bOrdered By: Renae Rubalcava on 01-14-2025 GFR/1.73 sq M.predicted among non-blacks MDRD (S/P/Bld) [Vol rate/Area] 53 mL/min/{1.73_m2} Low >60 [facility] Comment on above: mL/min/1.73m2 CKD-EP I Creatinine Equation (2020) Glucose measurement at bedsi deOrdered By: Renae Rubalcava on 01-14-2025 Glucose [Mass/Vol] 254 mg/dL High 74-106 [facility] Comment on above: MANAGEMENT OF PATIEN T CARE PER NURSING PROTOCOL Hematocrit Auto (Bld) [Volum e fraction]Ordered By: Renae Rubalcava on 01-14-2025 Hematocrit (Bld) [Volume fraction] 36.6 % Low 40-54 [facility] Hemoglobin measurementOrdere d By: Renae Rubalcava on 01-14-2025 Hemoglobin (Bld) [Mass/Vol] 12.7 g/dL Low 13.0-16.5 [facility] Immature granulocytes/100 WB C Auto (Bld)Ordered By: Renae Rubalcava on 01-14-2025 Immature granulocytes/100 WBC (Bld) 0.200 % 0.0-0.9 [facility] Comment on above: IG% - Immature Granu locytes (promyelocytes, myelocytes and metamyelocytes) > 1% indicates that a LEFT SHIFT is Present. MCV (mean corpuscular volume ) determinationOrdered By: Renae Rubalcava on 01-14-2025 MCV (RBC) [Entitic vol] 88.8 fL 80-94 [facility] Mean corpuscular hemoglobin (MCH) determinationOrdered By: Renae Rubalcava on 01-14-2025 MCH (RBC) [Entitic mass] 30.8 pg 27.0-32.0 [facility] Mean corpuscular hemoglobin concentration (MCHC) determinationOrdered By: Renae Rubalcava on 01-14-2025 MCHC (RBC) [Mass/Vol] 34.7 g/dL 32-36 [facility] Mean platelet volume determi nationOrdered By: Renae Rubalcava on 01-14-2025 Platelet mean volume (Bld) [Entitic vol] 10.0 fL 6.2-12.0 [facility] Monocyte percentageOrdered B y: Renae Rubalcava on 01-14-2025 Monocytes/100 WBC (Bld) 13.3 % High 0-10 [facility] Neutrophil percentageOrdered By: Renae Rubalcava on 01-14-2025 Neutrophils/100 WBC (Bld) 47.2 % 47-70 [facility] Nucleated red blood cell per centageOrdered By: Renae Rubalcava on 01-14-2025 Nucleated RBC/100 WBC (Bld) [Ratio] 0 % 0-5 [facility] Platelet countOrdered By: Lidia Rubalcava on 01-14-2025 Platelets (Bld) [#/Vol] 253 10*3/uL 150-450 [facility] Potassium measurement (mass/ volume)Ordered By: Renae Rubalcava on 01-14-2025 Potassium (Unsp spec) [Mass/Vol] 4.1 mmol/L 3.3-5.1 [facility] RBC Auto (Bld) [#/Vol]Ordere d By: Renae Rubalcava on 01-14-2025 RBC (Bld) [#/Vol] 4.12 10*6/uL Low 4.6-6.2 [facility] Serum creatinine measurement (mass/volume)Ordered By: Renae Rubalcava on 01-14-2025 Creatinine [Mass/Vol] 1.40 mg/dL High 0.70-1.20 [facility] Serum glucose measurement (m ass/volume)Ordered By: Renae Rubalcava on 01-14-2025 Glucose [Mass/Vol] 113 mg/dL High 70-99 [facility] Serum or plasma calcium makeda urement (mass/volume)Ordered By: Renae Rubalcava on 01-14-2025 Calcium [Mass/Vol] 9.5 mg/dL 7.6-11.0 [facility] Serum or plasma urea nitroge n measurement (mass/volume)Ordered By: Renae Rubalcava on 01-14-2025 Urea nitrogen [Mass/Vol] 26 mg/dL High 4-19 [facility] Sodium levelOrdered By: Renae Rubalcava on 01-14-2025 Sodium [Moles/Vol] 140 mmol/L 133-145 [facility] White blood cell (WBC) count Ordered By: Renae Rubalcava on 01-14-2025 WBC (Bld) [#/Vol] 5.4 10*3/uL 4.4-11.0 [facility] Basic Metabolic Profile (BMP )on 01-13-2025 BUN/CRE 19.0 RATIO Normal 10-20 [facility] Comment on above: Order Comment: Comme nts: NPO at NM prior to lipid panel Performed By: #### L 100.0100, L500.2500, L500.4100 ####[facility] [address] [place], [address] Calcium [Mass/Vol] 10.1 mg/dL Normal 7.6-11.0 [facility] Comment on above: Order Comment: Comme nts: NPO at [place] prior to lipid panel Performed By: #### L 100.0100, L500.2500, L500.4100 ####[facility] [address] [place], [address] Chloride [Moles/Vol] 102 mmol/L Normal 98-108 [facility] Comment on above: Order Comment: Comme nts: NPO at MN prior to lipid panel Performed By: #### L 100.0100, L500.2500, L500.4100 ####[facility] [address] [place], [address] CO2 [Moles/Vol] 24.3 mmol/L Normal 21.0-32.0 [facility] Comment on above: Order Comment: Comme nts: NPO at MN prior to lipid panel Performed By: #### L 100.0100, L500.2500, L500.4100 ####[facility] [address] [place], [address] Creatinine [Mass/Vol] 1.64 mg/dL High 0.70-1.20 [facility] Comment on above: Order Comment: Comme nts: NPO at MN prior to lipid panel Performed By: #### L 100.0100, L500.2500, L500.4100 ####[facility] [address] [place], [address] ECRCL 40.47 ml/min Low 50-250 [facility] Comment on above: Order Comment: Comme nts: NPO at MN prior to lipid panel Performed By: #### L 100.0100, L500.2500, L500.4100 ####[facility] [address] [place], [address] GAP 13 Normal 5-15 [facility] Comment on above: Order Comment: Comme nts: NPO at MN prior to lipid panel Performed By: #### L 100.0100, L500.2500, L500.4100 ####[facility] [address] [place], [address] GFR/1.73 sq M.predicted among non-blacks MDRD (S/P/Bld) [Vol rate/Area] 44 mL/min/{1.73_m2} Low >60 [facility] Comment on above: Order Comment: Comme nts: NPO at MN prior to lipid panel Result Comment: mL/m in/1.73m2 CKD-EPI Creatinine Equation (2020) Performed By: #### L 100.0100, L500.2500, L500.4100 ####[facility] [address] [place], [address] Glucose [Mass/Vol] 151 mg/dL High 70-99 [facility] Comment on above: Order Comment: Comme nts: NPO at MN prior to lipid panel Performed By: #### L 100.0100, L500.2500, L500.4100 ####[facility] [address] [place], [address] Potassium [Moles/Vol] 4.3 mmol/L Normal 3.3-5.1 [facility] Comment on above: Order Comment: Comme nts: NPO at MN prior to lipid panel Result Comment: Hemo lysis present, Results??could be affected.?? Performed By: #### L 100.0100, L500.2500, L500.4100 ####[facility] [address] [place], [address] Sodium [Moles/Vol] 139 mmol/L Normal 133-145 [facility] Comment on above: Order Comment: Comme nts: NPO at MN prior to lipid panel Performed By: #### L 100.0100, L500.2500, L500.4100 ####[facility] [address] [place], [address] Urea nitrogen [Mass/Vol] 31 mg/dL High 4-19 [facility] Comment on above: Order Comment: Comme nts: NPO at [place] prior to lipid panel Performed By: #### L 100.0100, L500.2500, L500.4100 ####[facility] [address] [place], [address] Bedside Glucoseon 01-13-2025 FINGERSTICK GLU 227 mg/dL High 74-106 [facility] Comment on above: Result Comment: ANGELA GEMENT OF PATIENT CARE PER NURSING PROTOCOL Performed By: #### L 501.080 ####[facility] [address] [place], [address] FINGERSTICK GLU 385 mg/dL High 74-106 [facility] Comment on above: Result Comment: ANGELA GEMENT OF PATIENT CARE PER NURSING PROTOCOL Performed By: #### L 501.080 ####[facility] [address] [place], [address] FINGERSTICK GLU 285 mg/dL High 74-106 [facility] Comment on above: Result Comment: ANGELA GEMENT OF PATIENT CARE PER NURSING PROTOCOL Performed By: #### L 501.080 ####[facility] [address] [place], [address] FINGERSTICK GLU 152 mg/dL High 74-106 [facility] Comment on above: Result Comment: ANGELA GEMENT OF PATIENT CARE PER NURSING PROTOCOL Performed By: #### L 501.080 ####[facility] [address] [place], [address] FINGERSTICK GLU 240 mg/dL High 74-106 [facility] Comment on above: Result Comment: ANGELA GEMENT OF PATIENT CARE PER NURSING PROTOCOL Performed By: #### L 501.080 ####[facility] [address] [place], [address] CBC W/Diff, Automatedon 04-3 0 Absolute Lymph 1.65 X10 3/uL Normal 0.83-4.51 [facility] Comment on above: Performed By: #### L 100.0100, L500.2500, L500.4100 ####[facility] [address] [place], [address] Absolute Neut 2.3 X10 3/uL Normal 2.0-7.7 [facility] Comment on above: Performed By: #### L 100.0100, L500.2500, L500.4100 ####[facility] [address] [place], [address] Basophils/100 WBC (Bld) 0.4 % Normal 0-1 [facility] Comment on above: Performed By: #### L 100.0100, L500.2500, L500.4100 ####[facility] [address] [place], [address] Eosinophils/100 WBC (Bld) 4.6 % Normal 0-5 [facility] Comment on above: Performed By: #### L 100.0100, L500.2500, L500.4100 ####[facility] [address] [place], [address] Erythrocyte distribution width (RBC) [Ratio] 12.6 % Normal 11.6-14.6 [facility] Comment on above: Performed By: #### L 100.0100, L500.2500, L500.4100 ####[facility] [address] [place], [address] Hematocrit (Bld) [Volume fraction] 38.1 % Low 40-54 [facility] Comment on above: Performed By: #### L 100.0100, L500.2500, L500.4100 ####[facility] [address] [place], [address] Hemoglobin (Bld) [Mass/Vol] 13.2 g/dL Normal 13.0-16.5 [facility] Comment on above: Performed By: #### L 100.0100, L500.2500, L500.4100 ####[facility] [address] [place], [address] IG% 0.200 Normal 0.0-0.9 [facility] Comment on above: Result Comment: IG% - Immature Granulocytes (promyelocytes, myelocytes andmetamyelocytes) > 1% indicates that a LEFT SHIFT is Present. Performed By: #### L 100.0100, L500.2500, L500.4100 ####[facility] [address] [place], [address] Lymphocytes/100 WBC (Bld) 34.4 % Normal 19-41 [facility] Comment on above: Performed By: #### L 100.0100, L500.2500, L500.4100 ####[facility] [address] [place], [address] MCH (RBC) [Entitic mass] 30.8 pg Normal 27.0-32.0 [facility] Comment on above: Performed By: #### L 100.0100, L500.2500, L500.4100 ####[facility] [address] [place], [address] MCHC (RBC) [Mass/Vol] 34.6 g/dL Normal 32-36 [facility] Comment on above: Performed By: #### L 100.0100, L500.2500, L500.4100 ####[facility] [address] [place], [address] MCV (RBC) [Entitic vol] 89.0 fL Normal 80-[address] [facility] Comment on above: Performed By: #### L 100.0100, L500.2500, L500.4100 ####[facility] [address] [place], [address] Monocytes/100 WBC (Bld) 11.7 % High 0-10 [facility] Comment on above: Performed By: #### L 100.0100, L500.2500, L500.4100 ####[facility] [address] [place], [address] Neutrophils/100 WBC (Bld) 48.7 % Normal 47-70 [facility] Comment on above: Performed By: #### L 100.0100, L500.2500, L500.4100 ####[facility] [address] [place], [address] Nucleated RBC (Bld) [#/Vol] 0 10*3/uL Normal 0-5 [facility] Comment on above: Performed By: #### L 100.0100, L500.2500, L500.4100 ####[facility] [address] [place], [address] Platelet mean volume (Bld) [Entitic vol] 10.0 fL Normal 6.2-12.0 [facility] Comment on above: Performed By: #### L 100.0100, L500.2500, L500.4100 ####[facility] [address] [place], [address] Platelets (Bld) [#/Vol] 270 10*3/uL Normal 150-450 [facility] Comment on above: Performed By: #### L 100.0100, L500.2500, L500.4100 ####[facility] [address] [place], [address] RBC (Bld) [#/Vol] 4.28 10*6/uL Low 4.6-6.2 [facility] Comment on above: Performed By: #### L 100.0100, L500.2500, L500.4100 ####[facility] [address] [place], [address] RDW SD 41.0 fl Normal 35.1-43.9 [facility] Comment on above: Performed By: #### L 100.0100, L500.2500, L500.4100 ####[facility] [address] [place], [address] WBC (Bld) [#/Vol] 4.8 10*3/uL Normal 4.4-11.0 [facility] Comment on above: Performed By: #### L 100.0100, L500.2500, L500.4100 ####[facility] [address] [place], [address] Calculated very low density lipoprotein (VLDL) cholesterol measurementOrdered By: Bhupinder Kenney on 01-13-2025 Calculated very low density lipoprotein (VLDL) cholesterol measurement 50 mg/dL High 5-40 [facility] Carotid Duplex Ultrasoundon 01-13-2025 Carotid Duplex Ultrasound Normal [facility] LDL calc ser/plasOrdered By: Bhupinder Kenney on 01-13-2025 Cholesterol in LDL [Mass/Vol] 80 mg/dL [facility] Comment on above: Pmsjhpdheq=924-021 m g/dL & Higher Fvhz=359 mg/dL or greater Lipid Profileon 01-13-2025 CHOL:HDL 4.66 Normal [facility] Comment on above: Order Comment: Comme nts: NPO at [place] prior to lipid panel Performed By: #### L 100.0100, L500.2500, L500.4100 ####[facility] [address] [place], [address] Cholesterol [Mass/Vol] 165 mg/dL Normal <=200 [facility] Comment on above: Order Comment: Comme nts: NPO at [place] prior to lipid panel Result Comment: Chol esterol level, Desirable <200 mg/dLBorderline high cholesterol 200-239 mg/dLHigh cholesterol >=240 mg/dLRecommendations of the NCEP Adult Treatment Panel for thefollowing risk-cutoff thresholds for the [place] Americanpopulation. Performed By: #### L 100.0100, L500.2500, L500.4100 ####[facility] [address] [place], [address] Cholesterol in HDL [Mass/Vol] 35 mg/dL Low [facility] Comment on above: Order Comment: Comme nts: NPO at [place] prior to lipid panel Result Comment: Elinor onal Cholesterol Education Program (NCEP) guidelines:<40 mg/dL: Low HDL-cholesterol (major risk factor for CHD)>= 60 mg/dL: High HDL-cholesterol (negative risk factor forCHD)HDL-cholesterol is affected by a number of factors, e.g.smoking, exercise, hormones, sex and age. Performed By: #### L 100.0100, L500.2500, L500.4100 ####[facility] [address] [facility] [place], [address] Cholesterol in LDL [Mass/Vol] 80 mg/dL Normal [facility] Comment on above: Order Comment: Comme nts: NPO at [place] prior to lipid panel Result Comment: Bord zbsbta=075-040 mg/dL Higher Uqyg=196 mg/dL or greater Performed By: #### L 100.0100, L500.2500, L500.4100 ####[facility] [address] [facility] [place], [address] Cholesterol in VLDL [Mass/Vol] 50 mg/dL High 5-40 [facility] Comment on above: Order Comment: Comme nts: NPO at MN prior to lipid panel Performed By: #### L 100.0100, L500.2500, L500.4100 ####[facility] [address] [facility] [place], [address] Triglyceride [Mass/Vol] 250 mg/dL High [facility] Comment on above: Order Comment: Comme nts: NPO at NM prior to lipid panel Result Comment: The drugs N-Acetylcysteine and Metamizole may falselydepress this assay.Normal range: <150 mg/dLBorderline High: 150-199 mg/dLHigh: 200-499 mg/dLVery High: >500 mg/dL Performed By: #### L 100.0100, L500.2500, L500.4100 ####[facility] [address] [place], [address] Screening total cholesterol/ high density lipoprotein (HDL) cholesterol ratioOrdered By: Bhupinder Kenney on 01-13-2025 Cholesterol.total/Kati sterol in HDL [Mass ratio] 4.66 {ratio} [facility] Serum or plasma cholesterol in HDL measurement (mass/volume)Ordered By: Bhupinder Kenney on 01-13-2025 Cholesterol in HDL [Mass/Vol] 35 mg/dL Low >40 [facility] Comment on above: National Cholesterol Education Program (NCEP) guidelines:<40 mg/dL: Low HDL-cholesterol (major risk factor for CHD)>= 60 mg/dL: High HDL-cholesterol (negative risk factor for CHD)HDL-cholesterol is affected by a number of factors, e.g. smoking, exercise, hormones, sex and age. Serum or plasma cholesterol measurement (mass/volume)Ordered By: Bhupinder Kenney on 01-13-2025 Cholesterol [Mass/Vol] 165 mg/dL <201 [facility] Comment on above: Cholesterol level, D esirable <200 mg/dLBorderline high cholesterol 200-239 mg/dLHigh cholesterol >=240 mg/dLRecommendations of the NCEP Adult Treatment Panel for the following risk-cutoff thresholds for the [place] population. Triglycerides measurementOrd ered By: Bhupinder Kenney on 01-13-2025 Triglyceride [Mass/Vol] 250 mg/dL High <199 [facility] Comment on above: The drugs N-Acetylcy steine and Metamizole may falsely depress this assay. Normal range: <150 mg/dLBorderline High: 150-199 mg/dLHigh: 200-499 mg/dLVery High: >500 mg/dL 12 Lead EKGon 01-12-2025 12 Lead EKG Normal [facility] Activated partial thrombopla stin time (aPTT) in platelet poor plasma by coagulation aOrdered By: Diogenes Villalpando on 01-12-2025 aPTT Coag (PPP) [Time] 22.3 s Low 24.1-36.2 [facility] Basic Metabolic Profile (BMP )on 01-12-2025 BUN/CRE 18.9 RATIO Normal 10-20 [facility] Comment on above: Performed By: #### L 100.0100, L501.4021, L300.4310, L300.3900, L500.2500 ####[facility] [address] [place], [address] Calcium [Mass/Vol] 10.5 mg/dL Normal 7.6-11.0 [facility] Comment on above: Performed By: #### L 100.0100, L501.4021, L300.4310, L300.3900, L500.2500 ####[facility] [address] [place], [address] Chloride [Moles/Vol] 101 mmol/L Normal 98-108 [facility] Comment on above: Performed By: #### L 100.0100, L501.4021, L300.4310, L300.3900, L500.2500 ####[facility] [address] [place], [address] CO2 [Moles/Vol] 21.0 mmol/L Normal 21.0-32.0 [facility] Comment on above: Performed By: #### L 100.0100, L501.4021, L300.4310, L300.3900, L500.2500 ####[facility] [address] [place], [address] Creatinine [Mass/Vol] 2.12 mg/dL High 0.70-1.20 [facility] Comment on above: Performed By: #### L 100.0100, L501.4021, L300.4310, L300.3900, L500.2500 ####[facility] [address] [place], [address] ECRCL 30.79 ml/min Low 50-250 [facility] Comment on above: Performed By: #### L 100.0100, L501.4021, L300.4310, L300.3900, L500.2500 ####[facility] [address] [place], [address] GAP 15 Normal 5-15 [facility] Comment on above: Performed By: #### L 100.0100, L501.4021, L300.4310, L300.3900, L500.2500 ####[facility] [address] [place], [address] GFR/1.73 sq M.predicted among non-blacks MDRD (S/P/Bld) [Vol rate/Area] 32 mL/min/{1.73_m2} Low >60 [facility] Comment on above: Result Comment: mL/m in/1.73m2 CKD-EPI Creatinine Equation (2020) Performed By: #### L 100.0100, L501.4021, L300.4310, L300.3900, L500.2500 ####[facility] [address] [place], [address] Glucose [Mass/Vol] 238 mg/dL High 70-99 [facility] Comment on above: Performed By: #### L 100.0100, L501.4021, L300.4310, L300.3900, L500.2500 ####[facility] [address] [place], [address] Potassium [Moles/Vol] 4.9 mmol/L Normal 3.3-5.1 [facility] Comment on above: Performed By: #### L 100.0100, L501.4021, L300.4310, L300.3900, L500.2500 ####[facility] [address] [place], [address] Sodium [Moles/Vol] 137 mmol/L Normal 133-145 [facility] Comment on above: Performed By: #### L 100.0100, L501.4021, L300.4310, L300.3900, L500.2500 ####[facility] [address] [place], [address] Urea nitrogen [Mass/Vol] 40 mg/dL High 4-19 [facility] Comment on above: Performed By: #### L 100.0100, L501.4021, L300.4310, L300.3900, L500.2500 ####[facility] [address] [place], [address] Bedside Glucoseon 01-12-2025 FINGERSTICK GLU 212 mg/dL High 74-106 [facility] Comment on above: Result Comment: ANGELA VALDERRAMA OF PATIENT CARE PER NURSING PROTOCOL Performed By: #### L 501.080 ####[facility] [address] [place], [address] Bilirubin Test strip Ql (U)O rdered By: Diogenes Villalpando on 01-12-2025 Bilirubin Ql (U) Negative Negative [facility] Brain without Contraston Brain without Contrast Normal [facility] CBC W/Diff, Automatedon 12-16 Absolute Lymph 1.91 X10 3/uL Normal 0.83-4.51 [facility] Comment on above: Performed By: #### L 100.0100, L501.4021, L300.4310, L300.3900, L500.2500 ####[facility] [address] [place], [address] Absolute Neut 3.1 X10 3/uL Normal 2.0-7.7 [facility] Comment on above: Performed By: #### L 100.0100, L501.4021, L300.4310, L300.3900, L500.2500 ####[facility] [address] [place], [address] Basophils/100 WBC (Bld) 0.5 % Normal 0-1 [facility] Comment on above: Performed By: #### L 100.0100, L501.4021, L300.4310, L300.3900, L500.2500 ####[facility] [address] [place], [address] Eosinophils/100 WBC (Bld) 3.6 % Normal 0-5 [facility] Comment on above: Performed By: #### L 100.0100, L501.4021, L300.4310, L300.3900, L500.2500 ####[facility] [address] [place], [address] Erythrocyte distribution width (RBC) [Ratio] 12.7 % Normal 11.6-14.6 [facility] Comment on above: Performed By: #### L 100.0100, L501.4021, L300.4310, L300.3900, L500.2500 ####[facility] [address] [place], [address] Hematocrit (Bld) [Volume fraction] 36.3 % Low 40-54 [facility] Comment on above: Performed By: #### L 100.0100, L501.4021, L300.4310, L300.3900, L500.2500 ####[facility] [address] [place], [address] Hemoglobin (Bld) [Mass/Vol] 12.7 g/dL Low 13.0-16.5 [facility] Comment on above: Performed By: #### L 100.0100, L501.4021, L300.4310, L300.3900, L500.2500 ####[facility] [address] [place], [address] IG% 0.300 Normal 0.0-0.9 [facility] Comment on above: Result Comment: IG% - Immature Granulocytes (promyelocytes, myelocytes andmetamyelocytes) > 1% indicates that a LEFT SHIFT is Present. Performed By: #### L 100.0100, L501.4021, L300.4310, L300.3900, L500.2500 ####[facility] [address] [place], [address] Lymphocytes/100 WBC (Bld) 32.3 % Normal 19-41 [facility] Comment on above: Performed By: #### L 100.0100, L501.4021, L300.4310, L300.3900, L500.2500 ####[facility] [address] [place], [address] MCH (RBC) [Entitic mass] 31.0 pg Normal 27.0-32.0 [facility] Comment on above: Performed By: #### L 100.0100, L501.4021, L300.4310, L300.3900, L500.2500 ####[facility] [address] [place], [address] MCHC (RBC) [Mass/Vol] 35.0 g/dL Normal 32-36 [facility] Comment on above: Performed By: #### L 100.0100, L501.4021, L300.4310, L300.3900, L500.2500 ####[facility] [address] [place], [address] MCV (RBC) [Entitic vol] 88.5 fL Normal 80-[address] [facility] Comment on above: Performed By: #### L 100.0100, L501.4021, L300.4310, L300.3900, L500.2500 ####[facility] [address] [place], [address] Monocytes/100 WBC (Bld) 11.7 % High 0-10 [facility] Comment on above: Performed By: #### L 100.0100, L501.4021, L300.4310, L300.3900, L500.2500 ####[facility] [address] [place], [address] Neutrophils/100 WBC (Bld) 51.6 % Normal 47-70 [facility] Comment on above: Performed By: #### L 100.0100, L501.4021, L300.4310, L300.3900, L500.2500 ####[facility] [address] [place], [address] Nucleated RBC (Bld) [#/Vol] 0 10*3/uL Normal 0-5 [facility] Comment on above: Performed By: #### L 100.0100, L501.4021, L300.4310, L300.3900, L500.2500 ####[facility] [address] [place], [address] Platelet mean volume (Bld) [Entitic vol] 10.0 fL Normal 6.2-12.0 [facility] Comment on above: Performed By: #### L 100.0100, L501.4021, L300.4310, L300.3900, L500.2500 ####[facility] [address] [place], [address] Platelets (Bld) [#/Vol] 270 10*3/uL Normal 150-450 [facility] Comment on above: Performed By: #### L 100.0100, L501.4021, L300.4310, L300.3900, L500.2500 ####[facility] [address] [place], [address] RBC (Bld) [#/Vol] 4.10 10*6/uL Low 4.6-6.2 [facility] Comment on above: Performed By: #### L 100.0100, L501.4021, L300.4310, L300.3900, L500.2500 ####[facility] [address] [place], [address] RDW SD 41.2 fl Normal 35.1-43.9 [facility] Comment on above: Performed By: #### L 100.0100, L501.4021, L300.4310, L300.3900, L500.2500 ####[facility] [address] [place], [address] WBC (Bld) [#/Vol] 5.9 10*3/uL Normal 4.4-11.0 [facility] Comment on above: Performed By: #### L 100.0100, L501.4021, L300.4310, L300.3900, L500.2500 ####[facility] [address] [place], [address] Calcium oxalate crystals det ection in urine sediment by light microscopyOrdered By: Diogenes Villalpando on 01-12-2025 Calcium oxalate crystals LM Ql (Urine sed) 1+ /hpf [facility] Echo Complete W/ Contraston 01-12-2025 Echo Complete W/ Contrast Normal [facility] Emergency Department Summary on 01-12-2025 Emergency Department Summary Normal [facility] H AND P Exam - Hospitaliston 01-12-2025 H&P Exam - Hospitalist Normal [facility] Hyaline casts LM.LPF (Urine sed) [#/Area]Ordered By: Diogenes Villalpando on 01-12-2025 Hyaline casts (Urine sed) [#/Area] 0 /[LPF] 0-5 [facility] International normalized rat io (INR) calculationOrdered By: Diogenes Villalpando on 01-12-2025 INR Coag (Bld) [Relative time] 0.9 {INR} [facility] Ketones Test strip Ql (U)Ord ered By: Diogense Villalpando on 01-12-2025 Ketones Ql (U) Negative Negative [facility] L499.0042on 01-12-2025 Trop T High Sen 38 ng/L High <=22 [facility] Comment on above: Performed By: #### L 499.0042 ####[facility] [address] [place], [address] L499.0043on 01-12-2025 Trop T High Sen 36 ng/L High <=22 [facility] Comment on above: Performed By: #### L 499.0043 ####[facility] [address] [place], [place], [address] L501.4021on 01-12-2025 Trop T High Sen 42 ng/L High <=22 [facility] Comment on above: Performed By: #### L 100.0100, L501.4021, L300.4310, L300.3900, L500.2500 ####[facility] [address] [place], [address] Microscopic analysis of urin e for red blood cells (RBC)Ordered By: Diogenes Villalpando on 01-12-2025 Microscopic analysis of urine for red blood cells (RBC) 0-5 SEEN /hpf 0-5 [facility] Mucus LM Ql (Urine sed)Order ed By: Diogenes Villalpando on 01-12-2025 Mucus Ql (Urine sed) 0 SEEN /hpf [facility] Nitrite Test strip Ql (U)Ord ered By: Diogenes Villalpando on 01-12-2025 Nitrite Ql (U) Negative Negative [facility] Partial Thromboplast Timeon 01-12-2025 aPTT Coag (Bld) [Time] 22.3 s Low 24.1-36.2 [facility] Comment on above: Performed By: #### L 100.0100, L501.4021, L300.4310, L300.3900, L500.2500 ####[facility] [address] [place], [place], [id number] Protein Test strip Ql (U)Ord ered By: Diogenes Villalpando on 01-12-2025 Protein Ql (U) 30 mg/dl High Negative [facility] Prothrombin Time w/INRon INR Coag (PPP) [Relative time] 0.9 {INR} Normal [facility] Comment on above: Performed By: #### L 100.0100, L501.4021, L300.4310, L300.3900, L500.2500 ####[facility] [address] [place], [address] PT Coag (PPP) [Time] 12.5 s Normal 11.7-14.9 [facility] Comment on above: Performed By: #### L 100.0100, L501.4021, L300.4310, L300.3900, L500.2500 ####[facility] [address] [place], [address] Prothrombin timeOrdered By: Diogenes Villalpando on 01-12-2025 PT Coag (PPP) [Time] 12.5 s 11.7-14.9 [facility] STROKE Brain/Head without Co nton 01-12-2025 STROKE Brain/Head without Cont Normal [facility] STROKE CTA Head AND Neck W/C onon 01-12-2025 STROKE CTA Head AND Neck W/Con Normal [facility] Squamous epithelial cells de tection in urine sediment by light microscopyOrdered By: Diogenes Villalpando on 01-12-2025 Epithelial cells.squamous LM Ql (Urine sed) 0-5 SEEN /hpf 0-5 [facility] Troponin T.cardiac [Mass/vol ume] in Serum or Plasma by High sensitivity methodOrdered By: Diogenes Villalpando on 01-12-2025 Troponin T.cardiac High sensitivity method [Mass/Vol] 36 ng/L High <22 [facility] Troponin T.cardiac High sensitivity method [Mass/Vol] 38 ng/L High <22 [facility] Troponin T.cardiac High sensitivity method [Mass/Vol] 42 ng/L High <22 [facility] Urinalysis, Completeon 01-12 CA OX CRYSTAL 1+ /hpf Normal [facility] Comment on above: Order Comment: CLEAN CATCH Performed By: #### L 400.0001 ####[facility] [address] [place], [address] RBC 0-5 SEEN Normal 0-5 [facility] Comment on above: Order Comment: CLEAN CATCH Performed By: #### L 400.0001 ####[facility] [address] [place], [address] CAST,HYALINE 0-5 SEEN Normal 0-5 [facility] Comment on above: Order Comment: CLEAN CATCH Performed By: #### L 400.0001 ####[facility] [address] [place], [address] EPI,SQUAMOUS 0-5 SEEN Normal 0-5 [facility] Comment on above: Order Comment: CLEAN CATCH Performed By: #### L 400.0001 ####[facility] [address] [place], [address] WBC 0-5 SEEN Normal 0-5 [facility] Comment on above: Order Comment: CLEAN CATCH Performed By: #### L 400.0001 ####[facility] [address] [place], [address] BACTERIA 0 SEEN Normal None Seen [facility] Comment on above: Order Comment: CLEAN CATCH Performed By: #### L 400.0001 ####[facility] [address] [place], [address] Mucus Ql (Urine sed) 0 SEEN Normal [facility] Comment on above: Order Comment: CLEAN CATCH Performed By: #### L 400.0001 ####[facility] [address] [place], [address] Urine clarityOrdered By: Simeon Villalpando on 01-12-2025 Clarity (U) Clear Clear [facility] Urine color determinationOrd ered By: Diogenes Villalpando on 01-12-2025 Color (U) Yellow Yellow [facility] Urine glucose detectionOrder ed By: Diogenes Villalpando on 01-12-2025 Glucose Ql (U) 1000 mg/dl High Normal [facility] Urine leukocyte esterase det ection by dipstickOrdered By: Diogenes Villalpando on 01-12-2025 Leukocyte esterase Test strip Ql (U) Negative Negative [facility] Urine pHOrdered By: Diogenes Villalpando on 01-12-2025 pH (U) 6.0 [pH] 5.0 - 8.0 [facility] Urine sediment bacteria coun t by microscopy (number/high power field)Ordered By: Diogenes Villalpando on 01-12-2025 Bacteria LM.HPF (Urine sed) [#/Area] 0 /[HPF] None Seen [facility] Urine specific gravity measu rementOrdered By: Diogenes Villalpando on 01-12-2025 Specific gravity (U) [Rel density] 1.015 1.002-1.030 [facility] Urine urobilinogen measureme ntOrdered By: Diogenes Villalpando on 01-12-2025 Urobilinogen Ql (U) Normal mg/dl Normal [facility] White blood cell countOrdere d By: Diogenes Villalpando on 01-12-2025 White blood cell count 0-5 SEEN /hpf 0-5 [facility] Post Void Residual Bladderon 12-31-2024 Post Void Residual Bladder Normal [facility] Urine Cultureon 12-31-2024 URC Culture exhibits no growth. Normal [facility] Comment on above: Performed By: #### M 100.2200, L400.0001, L500.2500 ####[facility] [address] [place], [address] Anion gap in Serum or Plasma Ordered By: Briseyda Sinclair on 12-30-2024 Anion gap [Moles/Vol] 11 mmol/L 01-28 [facility] BUN/creatinine ratioOrdered By: Briseyda Sinclair on 12-30-2024 Urea nitrogen/Creatinine [Mass ratio] 17.3 mg/mg 07-05 [facility] Basic Metabolic Profile (BMP )on 12-30-2024 BUN/CRE 17.3 RATIO Normal 07-05 [facility] Comment on above: Performed By: #### M 100.2200, L400.0001, L500.2500 ####[facility] [address] [place], [address] GAP 11 Normal 01-28 [facility] Comment on above: Performed By: #### M 100.2200, L400.0001, L500.2500 ####[facility] [address] [place], [address] Bilirubin Test strip Ql (U)O rdered By: Briseyda Sinclair on 12-30-2024 Bilirubin Ql (U) Negative Negative [facility] Carbon dioxide, total [Moles /volume] in Central venous bloodOrdered By: Briseyda Sinclair on 12-30-2024 CO2 [Moles/Vol] 25.5 mmol/L Normal 21.0-32.0 [facility] Comment on above: Performed By: #### M 100.2200, L400.0001, L500.2500 ####[facility] [address] [place], [address] Chloride assayOrdered By: Marcie Sinclair on 12-30-2024 Chloride [Moles/Vol] 106 mmol/L Normal 98-108 [facility] Comment on above: Performed By: #### M 100.2200, L400.0001, L500.2500 ####[facility] [address] [place], [address] Epithelial cells.squamous LM Ql (Urine sed)Ordered By: Briseyda Sinclair on 12-30-2024 Epithelial cells.squamous LM.HPF (Urine sed) [#/Area] 0 /[HPF] 0-5 [facility] GFR/1.73 sq M.predicted anjelica g non-blacks MDRD (S/P/Bld) [Vol rate/Area]Ordered By: Briseyda Sinclair on 12-30-2024 Estimated GFR (MDRD) Non-Af Amer 57 Low >60 [facility] Comment on above: mL/min/1.73m2 CKD-EP I Creatinine Equation (2020) Glomerular filtration rate ( GFR) estimation/1.73 sq m using serum, plasma, or whole bOrdered By: Briseyda Sinclair on 12-30-2024 GFR/1.73 sq M.predicted among non-blacks MDRD (S/P/Bld) [Vol rate/Area] 57 mL/min/{1.73_m2} Low >60 [facility] Comment on above: mL/min/1.73m2 CKD-EP I Creatinine Equation (2020) Result Comment: mL/m in/1.73m2 CKD-EPI Creatinine Equation (2020) Performed By: #### M 100.2200, L400.0001, L500.2500 ####[facility] [address] [place], [address] Glucose Ql (U)Ordered By: Marcie Sinclair on 12-30-2024 Glucose (U) [Mass/Vol] 1000 mg/dL High Normal [facility] Ketones Test strip Ql (U)Ord ered By: Briseyda Sinclair on 12-30-2024 Ketones Ql (U) Negative Negative [facility] Microscopic analysis of urin e for red blood cells (RBC)Ordered By: Briseyda Sinclair on 12-30-2024 Microscopic analysis of urine for red blood cells (RBC) 0 SEEN /hpf 0-5 [facility] Urine RBC 0 SEEN /hpf 0-5 [facility] Mucus LM Ql (Urine sed)Order ed By: Briseyda Sinclair on 12-30-2024 Mucus Ql (Urine sed) 0 SEEN /hpf [facility] Nitrite Test strip Ql (U)Ord ered By: Briseyda Sinclair on 12-30-2024 Nitrite Ql (U) Negative Negative [facility] Potassium measurement (mass/ volume)Ordered By: Briseyda Sinclair on 12-30-2024 Potassium [Moles/Vol] 4.3 mmol/L Normal 3.3-5.1 [facility] Comment on above: Performed By: #### M 100.2200, L400.0001, L500.2500 ####[facility] [address] [place], [address] Potassium (Unsp spec) [Mass/Vol] 4.3 mmol/L 3.3-5.1 [facility] Protein Test strip Ql (U)Ord ered By: Briseyda Sinclair on 12-30-2024 Protein Ql (U) 15 mg/dl High Negative [facility] Serum creatinine measurement (mass/volume)Ordered By: Briseyda Sinclair on 12-30-2024 Creatinine [Mass/Vol] 1.31 mg/dL High 0.70-1.20 [facility] Comment on above: Performed By: #### M 100.2200, L400.0001, L500.2500 ####[facility] [address] [place], [address] Serum glucose measurement (m ass/volume)Ordered By: Briseyda Sinclair on 12-30-2024 Glucose [Mass/Vol] 159 mg/dL High 70-99 [facility] Comment on above: Performed By: #### M 100.2200, L400.0001, L500.2500 ####[facility] [address] [place], [address] Serum or plasma calcium makeda urement (mass/volume)Ordered By: Briseyda Sinclair on 12-30-2024 Calcium [Mass/Vol] 9.7 mg/dL Normal 7.6-11.0 [facility] Comment on above: Performed By: #### M 100.2200, L400.0001, L500.2500 ####[facility] [address] [place], [address] Serum or plasma urea nitroge n measurement (mass/volume)Ordered By: Briseyda Sinclair on 12-30-2024 Urea nitrogen [Mass/Vol] 23 mg/dL High 4-19 [facility] Comment on above: Performed By: #### M 100.2200, L400.0001, L500.2500 ####[facility] [address] [place], [address] Sodium levelOrdered By: Amita Sinclair on 12-30-2024 Sodium [Moles/Vol] 143 mmol/L Normal 133-145 [facility] Comment on above: Performed By: #### M 100.2200, L400.0001, L500.2500 ####[facility] [address] [place], [address] Squamous epithelial cells de tection in urine sediment by light microscopyOrdered By: Briseyda Sinclair on 12-30-2024 Epithelial cells.squamous LM Ql (Urine sed) 0 SEEN /hpf 0-5 [facility] Urinalysis, Completeon 12-30 BACTERIA 0 SEEN Normal None Seen [facility] Comment on above: Order Comment: ZOYA CTOR TO SPECIFY Performed By: #### M 100.2200, L400.0001, L500.2500 ####[facility] [address] [place], [address] EPI,SQUAMOUS 0 SEEN Normal 0-5 [facility] Comment on above: Order Comment: ZOYA CTOR TO SPECIFY Performed By: #### M 100.2200, L400.0001, L500.2500 ####[facility] [address] [place], [address] Mucus Ql (Urine sed) 0 SEEN Normal [facility] Comment on above: Order Comment: ZOYA CTOR TO SPECIFY Performed By: #### M 100.2200, L400.0001, L500.2500 ####[facility] [address] [place], [address] RBC 0 SEEN Normal 0-[address] [place] [address] Comment on above: Order Comment: ZOYA CTOR TO SPECIFY Performed By: #### M 100.2200, L400.0001, L500.2500 ####[facility] [address] [place], [address] WBC 0 SEEN Normal 0-5 [facility] Comment on above: Order Comment: ZOYA CTOR TO SPECIFY Performed By: #### M 100.2200, L400.0001, L500.2500 ####[facility] [address] [place], [address] Urine blood detectionOrdered By: Briseyda Sinclair on 12-30-2024 Urine Occult Blood Negative Negative [facility] Urine clarityOrdered By: Isadora Sinclair on 12-30-2024 Clarity (U) Clear Clear [facility] Urine color determinationOrd ered By: Briseyda Sinclair on 12-30-2024 Color (U) Yellow Yellow [facility] Urine cultureOrdered By: Isadora Sinclair on 12-30-2024 Bacteria identified Cx Nom (U) Culture exhibits no growth. [facility] Urine glucose detectionOrder ed By: Briseyda Sinclair on 12-30-2024 Glucose Ql (U) 1000 mg/dl High Normal [facility] Urine leukocyte esterase det ection by dipstickOrdered By: Briseyda Sinclair on 12-30-2024 Leukocyte esterase Test strip Ql (U) Negative Negative [facility] Urine pHOrdered By: Briseyda uriarte on 12-30-2024 pH (U) 7.0 [pH] 5.0 - 8.0 [facility] Urine sediment bacteria coun t by microscopy (number/high power field)Ordered By: Briseyda Sinclair on 12-30-2024 Bacteria LM.HPF (Urine sed) [#/Area] 0 /[HPF] None Seen [facility] Urine specific gravity measu rementOrdered By: Briseyda Sinclair on 12-30-2024 Specific gravity (U) [Rel density] 1.015 1.002-1.030 [facility] Urine urobilinogen measureme ntOrdered By: Briseyda Sinclair on 12-30-2024 Urobilinogen Ql (U) Normal mg/dl Normal [facility] Urobilinogen Ql (U)Ordered B y: Briseyda Sinclair on 12-30-2024 Urine Urobilinogen Normal mg/dl Normal [facility] White blood cell countOrdere d By: Briseyda Sinclair on 12-30-2024 Urine WBC 0 SEEN /hpf 0-5 [facility] White blood cell count 0 SEEN /hpf 0-5 [facility] Free T3on 11-18-2024 Free T3 [Mass/Vol] 2.7 pg/mL Normal 2.18-3.98 [facility] Comment on above: Performed By: #### L 506.0400, L501.9520, L501.45094 ####[facility] [address] [place], [address] Free J1Syotpfu By: Briseyda albert on 11-18-2024 Free T3 [Mass/Vol] 2.7 pg/mL 2.18-3.98 [facility] Free Triiodothyronine (T3) pg/dL 2.7 pg/mL 2.18-3.98 [facility] T4 Free Directon 11-18-2024 T4 FREE DIRECT 1.10 ng/dL Normal 0.76-1.46 [facility] Comment on above: Performed By: #### L 506.0400, L501.9520, L501.24694 ####[facility] [address] [place] [place], [address] T4 freeOrdered By: Briseyda albert on 11-18-2024 Free T4 [Mass/Vol] 1.10 ng/dL 0.76-1.46 [facility] TSH DL <= 0.005 mIU/L QnOrde red By: Briseyda Sinclair on 11-18-2024 Thyroid Stimulating Hormone (TSH) 3.230 uIU/mL 0.300-4.200 [facility] TSH Qn 3.230 uIU/mL 0.300-4.200 [facility] Thyroid Stim Hormone (TSH)on 11-18-2024 TSH 3.230 uIU/mL Normal 0.300-4.200 [facility] Comment on above: Performed By: #### L 506.0400, L501.9520, L501.18986 ####[facility] [address] [place], [place], [address] Cardiology Visit Reporton Cardiology Visit Report Normal [facility] PT D/C Summary (1)on 025 PT D/C Summary (1) Normal [facility] Orthopedic Visit Reporton Orthopedic Visit Report Normal [facility] Inital Evaluation (1) - PTon 08-31-2024 Inital Evaluation (1) - PT Normal [facility] Spine Lumbar (Routine)on Spine Lumbar (Routine) Normal [facility] L/S Spine Min 4 Viewson L/S Spine Min 4 Views Normal [facility] Orthopedic Visit Reporton Orthopedic Visit Report Normal [facility] 18-TN-Ruocltj DOrdered By: Hammad Sinclair on 08-11-2024 Vitamin D 25-Hydroxy 36.7 ng/mL [facility] Comment on above: Vitamin D 25(OH) Sta tus Range Deficiency <20 ng/mL (50nmol/L) Insufficiency 20 - 30 ng/mL (50 - 75 nmol/L) Sufficiency 30 - 100 ng/mL (75 - 250 nmol/L) Toxicity >100 ng/mL (>250 nmol/L) Absolute neutrophil countOrd ered By: Briseyda Sinclair on 08-11-2024 Neutrophils (Bld) [#/Vol] 2.6 10*3/uL 2.0-7.7 [facility] Albumin to globulin ratioOrd ered By: Briseyda Sinclair on 08-11-2024 Albumin/Globulin [Mass ratio] 1.2 {ratio} 0.9-2.4 [facility] Basophil percentageOrdered B y: Briseyda Sinclair on 08-11-2024 Basophils/100 WBC (Bld) 0.5 % 0-1 [facility] Bilirubin directOrdered By: Dalila Chaves on 08-11-2024 Bilirubin.direct [Mass/Vol] 0.10 mg/dL 0.00-0.30 [facility] Bilirubin, totalOrdered By: Dalila Chaves on 08-11-2024 Bilirubin [Mass/Vol] 0.30 mg/dL 0.20-1.00 [facility] Comment on above: For patients on eltr ombopag therapy, use of Dimension Maramec TBIL is not recommended. Blood urea nitrogen (BUN)/cr eatinine ratioOrdered By: Briseyda Sinclair on 08-11-2024 Urea nitrogen/Creatinine [Mass ratio] 22.3 mg/mg High - [facility] CBC W/Diff, Automatedon 07-18 Absolute Lymph 2.07 X10 3/uL Normal 0.83-4.51 [facility] Comment on above: Performed By: #### L 100.0100, L501.9985, L500.4050, L500.4100, L506.1000, L501.5200, L501.9520 ####[facility] [address] [place], [address] Absolute Neut 2.6 X10 3/uL Normal 2.0-7.7 [facility] Comment on above: Performed By: #### L 100.0100, L501.9985, L500.4050, L500.4100, L506.1000, L501.5200, L501.9520 ####[facility] [address] [place], [address] Basophils/100 WBC (Bld) 0.5 % Normal 0-1 [facility] Comment on above: Performed By: #### L 100.0100, L501.9985, L500.4050, L500.4100, L506.1000, L501.5200, L501.9520 ####[facility] [address] [place], [address] Eosinophils/100 WBC (Bld) 8.1 % High 0-5 [facility] Comment on above: Performed By: #### L 100.0100, L501.9985, L500.4050, L500.4100, L506.1000, L501.5200, L501.9520 ####[facility] [address] [place], [address] Erythrocyte distribution width (RBC) [Ratio] 12.3 % Normal 11.6-14.6 [facility] Comment on above: Performed By: #### L 100.0100, L501.9985, L500.4050, L500.4100, L506.1000, L501.5200, L501.9520 ####[facility] [address] [place], [address] Hematocrit (Bld) [Volume fraction] 37.3 % Low 40-54 [facility] Comment on above: Performed By: #### L 100.0100, L501.9985, L500.4050, L500.4100, L506.1000, L501.5200, L501.9520 ####[facility] [address] [place], [address] Hemoglobin (Bld) [Mass/Vol] 12.7 g/dL Low 13.0-16.5 [facility] Comment on above: Performed By: #### L 100.0100, L501.9985, L500.4050, L500.4100, L506.1000, L501.5200, L501.9520 ####[facility] [address] [place], [address] IG% 0.200 Normal 0.0-0.9 [facility] Comment on above: Result Comment: IG% - Immature Granulocytes (promyelocytes, myelocytes andmetamyelocytes) > 1% indicates that a LEFT SHIFT is Present. Performed By: #### L 100.0100, L501.9985, L500.4050, L500.4100, L506.1000, L501.5200, L501.9520 ####[facility] [address] [place], [address] Lymphocytes/100 WBC (Bld) 35.6 % Normal 19-41 [facility] Comment on above: Performed By: #### L 100.0100, L501.9985, L500.4050, L500.4100, L506.1000, L501.5200, L501.9520 ####[facility] [address] [place], [address] MCH (RBC) [Entitic mass] 31.1 pg Normal 27.0-32.0 [facility] Comment on above: Performed By: #### L 100.0100, L501.9985, L500.4050, L500.4100, L506.1000, L501.5200, L501.9520 ####[facility] [address] [place], [address] MCHC (RBC) [Mass/Vol] 34.0 g/dL Normal 32-36 [facility] Comment on above: Performed By: #### L 100.0100, L501.9985, L500.4050, L500.4100, L506.1000, L501.5200, L501.9520 ####[facility] [address] [place], [address] MCV (RBC) [Entitic vol] 91.4 fL Normal 80-94 [facility] Comment on above: Performed By: #### L 100.0100, L501.9985, L500.4050, L500.4100, L506.1000, L501.5200, L501.9520 ####[facility] [address] [place], [address] Monocytes/100 WBC (Bld) 11.2 % High 0-[address] [facility] Comment on above: Performed By: #### L 100.0100, L501.9985, L500.4050, L500.4100, L506.1000, L501.5200, L501.9520 ####[facility] [address] [place], [address] Neutrophils/100 WBC (Bld) 44.4 % Low 47-70 [facility] Comment on above: Performed By: #### L 100.0100, L501.9985, L500.4050, L500.4100, L506.1000, L501.5200, L501.9520 ####[facility] [address] [place], [address] Nucleated RBC (Bld) [#/Vol] 0 10*3/uL Normal 0-5 [facility] Comment on above: Performed By: #### L 100.0100, L501.9985, L500.4050, L500.4100, L506.1000, L501.5200, L501.9520 ####[facility] [address] [place], [address] Platelet mean volume (Bld) [Entitic vol] 10.1 fL Normal 6.2-12.0 [facility] Comment on above: Performed By: #### L 100.0100, L501.9985, L500.4050, L500.4100, L506.1000, L501.5200, L501.9520 ####[facility] [address] [place], [address] Platelets (Bld) [#/Vol] 240 10*3/uL Normal 150-450 [facility] Comment on above: Performed By: #### L 100.0100, L501.9985, L500.4050, L500.4100, L506.1000, L501.5200, L501.9520 ####[facility] [address] [place], [address] RBC (Bld) [#/Vol] 4.08 10*6/uL Low 4.6-6.2 [facility] Comment on above: Performed By: #### L 100.0100, L501.9985, L500.4050, L500.4100, L506.1000, L501.5200, L501.9520 ####[facility] [address] [place], [address] RDW SD 41.1 fl Normal 35.1-43.9 [facility] Comment on above: Performed By: #### L 100.0100, L501.9985, L500.4050, L500.4100, L506.1000, L501.5200, L501.9520 ####[facility] [address] [place], [address] WBC (Bld) [#/Vol] 5.8 10*3/uL Normal 4.4-11.0 [facility] Comment on above: Performed By: #### L 100.0100, L501.9985, L500.4050, L500.4100, L506.1000, L501.5200, L501.9520 ####[facility] [address] [place], [address] Carbon dioxide measurementOr dered By: Briseyda Sinclair on 08-11-2024 CO2 [Moles/Vol] 25.0 mmol/L 21.0-32.0 [facility] Chloride measurementOrdered By: Briseyda Sinclair on 08-11-2024 Chloride [Moles/Vol] 108 mmol/L High 98-107 [facility] Comprehensive Metabolic Prof ilon 08-11-2024 Albumin/Globulin [Mass ratio] 1.2 {ratio} Normal 0.9-2.4 [facility] Comment on above: Performed By: #### L 100.0100, L501.9985, L500.4050, L500.4100, L506.1000, L501.5200, L501.9520 ####[facility] [address] [place], [place], [id number] ALT [Catalytic activity/Vol] 29 U/L Normal 16-61 [facility] Comment on above: Performed By: #### L 100.0100, L501.9985, L500.4050, L500.4100, L506.1000, L501.5200, L501.9520 ####[facility] [address] [place], [place], [id number] AST [Catalytic activity/Vol] 15 U/L Normal 15-37 [facility] Comment on above: Performed By: #### L 100.0100, L501.9985, L500.4050, L500.4100, L506.1000, L501.5200, L501.9520 ####[facility] [address] [place], [place], [id number] BUN/CRE 22.3 RATIO High 10-20 [facility] Comment on above: Performed By: #### L 100.0100, L501.9985, L500.4050, L500.4100, L506.1000, L501.5200, L501.9520 ####[facility] [address] [place], [address] CA,Total 9.3 mg/dL Normal 8.5-10.1 [facility] Comment on above: Performed By: #### L 100.0100, L501.9985, L500.4050, L500.4100, L506.1000, L501.5200, L501.9520 ####[facility] [address] [place], [address] Chloride [Moles/Vol] 108 mmol/L High 98-107 [facility] Comment on above: Performed By: #### L 100.0100, L501.9985, L500.4050, L500.4100, L506.1000, L501.5200, L501.9520 ####[facility] [address] [place], [address] CO2 [Moles/Vol] 25.0 mmol/L Normal 21.0-32.0 [facility] Comment on above: Performed By: #### L 100.0100, L501.9985, L500.4050, L500.4100, L506.1000, L501.5200, L501.9520 ####[facility] [address] [place], [address] Creatinine [Mass/Vol] 1.30 mg/dL Normal 0.70-1.30 [facility] Comment on above: Result Comment: The validity of the calculated GFR GFRAA in patients over70 years has not been determined. Clinical correlation isessential. Performed By: #### L 100.0100, L501.9985, L500.4050, L500.4100, L506.1000, L501.5200, L501.9520 ####[facility] [address] [place], [address] EST GFR - AA 69 mL/min Normal >60 [facility] Comment on above: Result Comment: Afri can [place] GFR Calc Performed By: #### L 100.0100, L501.9985, L500.4050, L500.4100, L506.1000, L501.5200, L501.9520 ####[facility] [address] [place], [address] GAP 6 Normal 5-15 [facility] Comment on above: Performed By: #### L 100.0100, L501.9985, L500.4050, L500.4100, L506.1000, L501.5200, L501.9520 ####[facility] [address] [place], [place], [phone] GFR/1.73 sq M.predicted among non-blacks MDRD (S/P/Bld) [Vol rate/Area] 57 mL/min/{1.73_m2} Low >60 [facility] Comment on above: Result Comment: Non- GFR Calc Performed By: #### L 100.0100, L501.9985, L500.4050, L500.4100, L506.1000, L501.5200, L501.9520 ####[facility] [address] [place], [place], [phone] Globulin (S) [Mass/Vol] 3.2 g/dL Normal 2.2-4.[address] [facility] Comment on above: Performed By: #### L 100.0100, L501.9985, L500.4050, L500.4100, L506.1000, L501.5200, L501.9520 ####[facility] [address] [place], [address] Glucose [Mass/Vol] 208 mg/dL High 74-106 [facility] Comment on above: Result Comment: Gluc ose result greater than or equal to 200 mg/dLsuggests DIABETES MELLITUS per A.D.A. criteria. Performed By: #### L 100.0100, L501.9985, L500.4050, L500.4100, L506.1000, L501.5200, L501.9520 ####[facility] [address] [place], [address] Potassium [Moles/Vol] 4.2 mmol/L Normal 3.5-5.1 [facility] Comment on above: Performed By: #### L 100.0100, L501.9985, L500.4050, L500.4100, L506.1000, L501.5200, L501.9520 ####[facility] [address] [place], [address] Sodium [Moles/Vol] 139 mmol/L Normal 136-145 [facility] Comment on above: Performed By: #### L 100.0100, L501.9985, L500.4050, L500.4100, L506.1000, L501.5200, L501.9520 ####[facility] [address] [place], [address] T PROT 6.9 g/dL Normal 6.4-8.2 [facility] Comment on above: Performed By: #### L 100.0100, L501.9985, L500.4050, L500.4100, L506.1000, L501.5200, L501.9520 ####[facility] [address] [place], [address] Urea nitrogen [Mass/Vol] 29 mg/dL High 7-18 [facility] Comment on above: Performed By: #### L 100.0100, L501.9985, L500.4050, L500.4100, L506.1000, L501.5200, L501.9520 ####[facility] [address] [place], [place], [id number] Direct serum free thyroxine (FT4) measurementOrdered By: Briseyda Sinclair on 08-11-2024 Free T4 [Mass/Vol] 0.84 ng/dL 0.76-1.46 [facility] Eosinophil percentageOrdered By: Briseyda Sinclair on 08-11-2024 Eosinophils/100 WBC (Bld) 8.1 % High 0-5 [facility] Erythrocyte distribution wid th ratioOrdered By: Briseyda Sinclair on 08-11-2024 Erythrocyte distribution width (RBC) [Ratio] 12.3 % 11.6-14.6 [facility] Erythrocyte distribution wid th standard deviationOrdered By: Briseyda Sinclair on 08-11-2024 Erythrocyte distribution width (RBC) [Entitic vol] 41.1 fL 35.1-43.9 [facility] Estimated glomerular filtrat ion rate (GFR) AmericanOrdered By: Briseyda Sinclair on 08-11-2024 Estimated GFR (MDRD) Amer 69 mL/min >60 [facility] Comment on above: GFR Calc Free T3on 08-11-2024 Free T3 [Mass/Vol] 2.2 pg/mL Normal 2.18-3.98 [facility] Comment on above: Performed By: #### L 506.0400, L501.98143 ####[facility] [address] [place], [place], [phone] Free P6Qfapfxy By: Briseyda albert on 08-11-2024 Free Triiodothyronine (T3) pg/dL 2.2 pg/mL 2.18-3.98 [facility] Glomerular filtration rate ( GFR) estimationOrdered By: Briseyda Sinclair on 08-11-2024 Estimated GFR (MDRD) Non-Af Amer 57 mL/min Low >60 [facility] Comment on above: Non- GFR Calc Glucose measurementOrdered B y: Briseyda Sinclair on 08-11-2024 Glucose [Mass/Vol] 208 mg/dL High 74-106 [facility] Comment on above: Glucose result great er than or equal to 200 mg/dLsuggests DIABETES MELLITUS per A.D.A. criteria. Hematocrit Auto (Bld) [Volum e fraction]Ordered By: Briseyda Sinclair on 08-11-2024 Hematocrit (Bld) [Volume fraction] 37.3 % Low 40-54 [facility] Hemoglobin A1con 08-11-2024 HbA1c (Bld) [Mass fraction] 10.7 % High 3.8-5.6 [facility] Comment on above: Result Comment: Norm al < 5.7 % Prediabetic 5.7 - 6.4 % Diabetic >or= 6.5 % Please note range changes. Performed By: #### L 100.0100, L501.9985, L500.4050, L500.4100, L506.1000, L501.5200, L501.9520 ####[facility] [address] [place], [address] Hemoglobin A1c percentageOrd ered By: Briseyda Sinclair on 08-11-2024 HbA1c (Bld) [Mass fraction] 10.7 % High 3.8-5.6 [facility] Comment on above: Normal < 5.7 % Predi abetic 5.7 - 6.4 % Diabetic >or= 6.5 % Please note range changes. Hemoglobin measurementOrdere d By: Briseyda Sinclair on 08-11-2024 Hemoglobin (Bld) [Mass/Vol] 12.7 g/dL Low 13.0-16.5 [facility] High density lipoprotein (HD L) measurementOrdered By: Dalila Chaves on 08-11-2024 Cholesterol in HDL [Mass/Vol] 41 mg/dL >40 [facility] Comment on above: The drugs N-Acetylcy steine and Metamizole may falsely depress this assay. Reference Range HDL <40 mg/dL Low HDL Cholesterol HDL >or= 60 mg/dL High HDL Cholesterol Immature granulocytes/100 WB C Auto (Bld)Ordered By: Briseyda Sinclair on 08-11-2024 Immature granulocytes/100 WBC (Bld) 0.200 % 0.0-0.9 [facility] Comment on above: IG% - Immature Granu locytes (promyelocytes, myelocytes and metamyelocytes) > 1% indicates that a LEFT SHIFT is Present. Laboratory - Chemistry and C hemistry - challengeOrdered By: Dalila Chaves on 08-11-2024 AST [Catalytic activity/Vol] 12 U/L Low 15-37 [facility] Lipid Profileon 08-11-2024 Cholesterol [Mass/Vol] 162 mg/dL Normal 200 [facility] Comment on above: Result Comment: <200 mg/dL Desirable 200-240 mg/dL Borderline >240 mg/dL High Risk Performed By: #### L 500.3400, L500.4100 ####[facility] [address] [place], [address] Cholesterol [Mass/Vol] 163 mg/dL Normal 200 [facility] Comment on above: Result Comment: <200 mg/dL Desirable 200-240 mg/dL Borderline >240 mg/dL High Risk Performed By: #### L 100.0100, L501.9985, L500.4050, L500.4100, L506.1000, L501.5200, L501.9520 ####[facility] [address] [place], [address] Cholesterol in HDL [Mass/Vol] 41 mg/dL Normal [facility] Comment on above: Result Comment: The drugs N-Acetylcysteine and Metamizole may falselydepress this assay. Reference Range HDL <40 mg/dL Low HDL Cholesterol HDL >or= 60 mg/dL High HDL Cholesterol Performed By: #### L 500.3400, L500.4100 ####[facility] [address] [place], [address] Performed By: #### L 100.0100, L501.9985, L500.4050, L500.4100, L506.1000, L501.5200, L501.9520 ####[facility] [address] [place], [address] Cholesterol in LDL [Mass/Vol] 62 mg/dL Normal 0-130 [facility] Comment on above: Performed By: #### L 500.3400, L500.4100 ####[facility] [address] [place], [address] Cholesterol in LDL [Mass/Vol] 64 mg/dL Normal 0-130 [facility] Comment on above: Performed By: #### L 100.0100, L501.9985, L500.4050, L500.4100, L506.1000, L501.5200, L501.9520 ####[facility] [address] [place], [address] Cholesterol in VLDL [Mass/Vol] 59 mg/dL High 5-40 [facility] Comment on above: Performed By: #### L 500.3400, L500.4100 ####[facility] [address] [place], [address] Cholesterol in VLDL [Mass/Vol] 58 mg/dL High 5-40 [facility] Comment on above: Performed By: #### L 100.0100, L501.9985, L500.4050, L500.4100, L506.1000, L501.5200, L501.9520 ####[facility] [address] [place], [address] Triglyceride [Mass/Vol] 297 mg/dL High [facility] Comment on above: Result Comment: The drugs N-Acetylcysteine and Metamizole may falselydepress this assay.Serum Triglycerides Reference Interval Normal <150 mg/dL Borderline high 150 - 199 mg/dL High 200 - 499 mg/dL Very High > or = 500 mg/dL Performed By: #### L 500.3400, L500.4100 ####[facility] [address] [place], [address] Triglyceride [Mass/Vol] 291 mg/dL High [facility] Comment on above: Result Comment: The drugs N-Acetylcysteine and Metamizole may falselydepress this assay.Serum Triglycerides Reference Interval Normal <150 mg/dL Borderline high 150 - 199 mg/dL High 200 - 499 mg/dL Very High > or = 500 mg/dL Performed By: #### L 100.0100, L501.9985, L500.4050, L500.4100, L506.1000, L501.5200, L501.9520 ####[facility] [address] [place], [address] Liver Profileon 08-11-2024 Albumin [Mass/Vol] 3.7 g/dL Normal 3.2-5.0 [facility] Comment on above: Performed By: #### L 500.3400, L500.4100 ####[facility] [address] [place], [address] Performed By: #### L 100.0100, L501.9985, L500.4050, L500.4100, L506.1000, L501.5200, L501.9520 ####[facility] [address] [place], [address] ALK P 65 U/L Normal 45-117 [facility] Comment on above: Performed By: #### L 500.3400, L500.4100 ####[facility] [address] [place], [address] Performed By: #### L 100.0100, L501.9985, L500.4050, L500.4100, L506.1000, L501.5200, L501.9520 ####[facility] [address] [place], [address] ALT [Catalytic activity/Vol] 31 U/L Normal 16-61 [facility] Comment on above: Performed By: #### L 500.3400, L500.4100 ####[facility] [address] [place], [address] AST [Catalytic activity/Vol] 12 U/L Low 15-37 [facility] Comment on above: Performed By: #### L 500.3400, L500.4100 ####[facility] [address] [place], [address] Bilirubin [Mass/Vol] 0.30 mg/dL Normal 0.20-1.00 [facility] Comment on above: Result Comment: For patients on eltrombopag therapy, use of Dimension Maramec TBIL is not recommended. Performed By: #### L 500.3400, L500.4100 ####[facility] [address] [place], [address] Performed By: #### L 100.0100, L501.9985, L500.4050, L500.4100, L506.1000, L501.5200, L501.9520 ####[facility] [address] [place], [address] Bilirubin.direct [Mass/Vol] 0.10 mg/dL Normal 0.00-0.30 [facility] Comment on above: Performed By: #### L 500.3400, L500.4100 ####[facility] [address] [place], [address] Globulin (S) [Mass/Vol] 3.3 g/dL Normal 2.2-4.[address] [facility] Comment on above: Performed By: #### L 500.3400, L500.4100 ####[facility] [address] [place], [address] T PROT 7.0 g/dL Normal 6.4-8.2 [facility] Comment on above: Performed By: #### L 500.3400, L500.4100 ####[facility] [address] [place], [address] Low density lipoprotein (LDL ) cholesterol measurementOrdered By: Dalila Chaves on 08-11-2024 Cholesterol in LDL [Mass/Vol] 62 mg/dL 0-130 [facility] Lymphocytes Auto (Unsp spec) [#/Vol]Ordered By: Briseyda Sinclair on 08-11-2024 Lymphocytes (Bld) [#/Vol] 2.07 10*3/uL 0.83-4.51 [facility] Lymphocytes/100 WBC Auto (Un sp spec)Ordered By: Briseyda Sinclair on 08-11-2024 Lymphocytes/100 WBC (Bld) 35.6 % 19-41 [facility] MCV (mean corpuscular volume ) determinationOrdered By: Briseyda Sinclair on 08-11-2024 MCV (RBC) [Entitic vol] 91.4 fL 80-94 [facility] Magnesiumon 08-11-2024 Magnesium [Mass/Vol] 1.2 mg/dL Low 1.6-2.6 [facility] Comment on above: Performed By: #### L 100.0100, L501.9985, L500.4050, L500.4100, L506.1000, L501.5200, L501.9520 ####[facility] [address] [facility] [place], [address] Magnesium measurementOrdered By: Briseyda Sinclair on 08-11-2024 Magnesium [Mass/Vol] 1.2 mg/dL Low 1.6-2.6 [facility] Mean corpuscular hemoglobin (MCH) determinationOrdered By: Briseyda Sinclair on 08-11-2024 MCH (RBC) [Entitic mass] 31.1 pg 27.0-32.0 [facility] Mean corpuscular hemoglobin concentration (MCHC) determinationOrdered By: Briseyda Sinclair on 08-11-2024 MCHC (RBC) [Mass/Vol] 34.0 g/dL 32-36 [facility] Mean platelet volume determi nationOrdered By: Briseyda Sinclair on 08-11-2024 Platelet mean volume (Bld) [Entitic vol] 10.1 fL 6.2-12.0 [facility] Monocyte percentageOrdered B y: Briseyda Sinclair on 08-11-2024 Monocytes/100 WBC (Bld) 11.2 % High 0-10 [facility] Neutrophil percentageOrdered By: Briseyda Sinclair on 08-11-2024 Neutrophils/100 WBC (Bld) 44.4 % Low 47-70 [facility] Nucleated red blood cell per centageOrdered By: Briseyda Sinclair on 08-11-2024 Nucleated RBC/100 WBC (Bld) [Ratio] 0 % 0-5 [facility] Platelet countOrdered By: Marcie Sinclair on 08-11-2024 Platelets (Bld) [#/Vol] 240 10*3/uL 150-450 [facility] Potassium measurementOrdered By: Briseyda Sinclair on 08-11-2024 Potassium [Moles/Vol] 4.2 mmol/L 3.5-5.1 [facility] RBC Auto (Bld) [#/Vol]Ordere d By: Briseyda Sinclair on 08-11-2024 RBC (Bld) [#/Vol] 4.08 10*6/uL Low 4.6-6.2 [facility] Serum anion gap measurementO rdered By: Briseyda Sinclair on 08-11-2024 Anion gap [Moles/Vol] 6 mmol/L 5-15 [facility] Serum globulin measurementOr dered By: Dalila Chaves on 08-11-2024 Globulin (S) [Mass/Vol] 3.3 g/dL 2.2-4.[address] [facility] Serum or plasma alanine denis otransferase (ALT) measurementOrdered By: Dalila Chaves on 08-11-2024 ALT [Catalytic activity/Vol] 31 U/L 16-61 [facility] Serum or plasma albumin makeda urement (mass/volume)Ordered By: Dalila Chaves on 08-11-2024 Albumin [Mass/Vol] 3.7 g/dL 3.2-5.0 [facility] Serum or plasma alkaline neisha sphatase measurementOrdered By: Dalila Chaves on 08-11-2024 ALP [Catalytic activity/Vol] 65 U/L 45-117 [facility] Serum or plasma calcium makeda urement (mass/volume)Ordered By: Briseyda Sinclair on 08-11-2024 Calcium [Mass/Vol] 9.3 mg/dL 8.5-10.1 [facility] Serum or plasma cholesterol measurement (mass/volume)Ordered By: Dalila Chaves on 08-11-2024 Cholesterol [Mass/Vol] 162 mg/dL <200 [facility] Comment on above: <200 mg/dL Desirable 200-240 mg/dL Borderline >240 mg/dL High Risk Serum or plasma creatinine m easurement (mass/volume)Ordered By: Briseyda Sinclair on 08-11-2024 Creatinine [Mass/Vol] 1.30 mg/dL 0.70-1.30 [facility] Comment on above: The validity of the calculated GFR & GFRAA in patients over 70 years has not been determined. Clinical correlation is essential. Serum or plasma urea nitroge n measurement (mass/volume)Ordered By: Briseyda Sinclair on 08-11-2024 Urea nitrogen [Mass/Vol] 29 mg/dL High 7-18 [facility] Sodium levelOrdered By: Amita Sinclair on 08-11-2024 Sodium [Moles/Vol] 139 mmol/L 136-145 [facility] T4 Free Directon 08-11-2024 T4 FREE DIRECT 0.84 ng/dL Normal 0.76-1.46 [facility] Comment on above: Performed By: #### L 506.0400, L501.01793 ####[facility] [address] [place], [place], [id number] TSH QnOrdered By: Briseyda Lopez hner on 08-11-2024 Thyroid Stimulating Hormone (TSH) 4.190 uIU/mL High 0.358-3.740 [facility] Thyroid Stim Hormone (TSH)on 08-11-2024 TSH 4.190 uIU/mL High 0.358-3.740 [facility] Comment on above: Performed By: #### L 100.0100, L501.9985, L500.4050, L500.4100, L506.1000, L501.5200, L501.9520 ####[facility] [address] [place], [place], [id number] Total proteinOrdered By: Lisset Chaves on 08-11-2024 Protein [Mass/Vol] 7.0 g/dL 6.4-8.2 [facility] Triglycerides measurementOrd ered By: Dalila Chaves on 08-11-2024 Triglyceride [Mass/Vol] 297 mg/dL High <199 [facility] Comment on above: The drugs N-Acetylcy steine and Metamizole may falsely depress this assay.Serum Triglycerides Reference Interval Normal <150 mg/dL Borderline high 150 - 199 mg/dL High 200 - 499 mg/dL Very High > or = 500 mg/dL Very low density lipoprotein (VLDL) cholesterol measurementOrdered By: Dalila Chaves on 08-11-2024 VLDL Cholesterol 59 mg/dL High 5-40 [facility] Vitamin D,25 Hydroxyon 08-11 Vitamin D 25-OH 36.7 ng/mL Normal [facility] Comment on above: Result Comment: Lesa min D 25(OH) Status Range Deficiency <20 ng/mL (50nmol/L) Insufficiency 20 - 30 ng/mL (50 - 75 nmol/L) Sufficiency 30 - 100 ng/mL (75 - 250 nmol/L) Toxicity >100 ng/mL (>250 nmol/L) Performed By: #### L 100.0100, L501.9985, L500.4050, L500.4100, L506.1000, L501.5200, L501.9520 ####[facility] [address] [place], [address] White blood cell (WBC) count Ordered By: Briseyda Sinclair on 08-11-2024 WBC (Bld) [#/Vol] 5.8 10*3/uL 4.4-11.0 [facility] MR/BMS.IMBon 08-10-2024 MR/BMS.IMB Normal [facility] Thin prep Papanicolaou smear with manual screeningOrdered By: Manuel Gilman on 12-03-2023 Thin prep Papanicolaou smear with manual screening 252 mg/dL 74-106 [facility] Comment on above: MANAGEMENT OF PATIEN T CARE PER NURSING PROTOCOL Basophil percentageOrdered B y: Briseyda Sinclair on 11-19-2023 Hemoglobin (Bld) [Mass/Vol] 12.5 g/dL 13.0-16.5 [facility] Hematocrit Auto (Bld) [Volum e fraction]Ordered By: Briseyda Sinclair on 11-19-2023 Hematocrit (Bld) [Volume fraction] 37.6 % 40-54 [facility] Absolute lymphocyte countOrd ered By: Briseyda Dottie on 11-06-2023 Lymphocytes Auto (Unsp spec) [#/Vol] 1.91 10*3/uL 0.83-4.51 [facility] Automated lymphocyte count a s percentage of total leukocytesOrdered By: Briseyda Sinclair on 11-06-2023 Lymphocytes/100 WBC Auto (Unsp spec) 35.9 % 19-41 [facility] Basophil percentageOrdered B y: Briseyda Sinclair on 11-06-2023 Basophils/100 WBC (Bld) 0.6 % 0-1 [facility] Bilirubin [Mass/Vol] 0.40 mg/dL 0.20-1.00 [facility] Comment on above: For patients on eltr ombopag therapy, use of Dimension Maramec TBIL is not recommended. Chloride [Moles/Vol] 108 mmol/L 98-107 [facility] Eosinophils/100 WBC (Bld) 6.0 % 0-5 [facility] Glucose [Mass/Vol] 148 mg/dL 74-106 [facility] Comment on above: Fasting Glucose resu lt greater than or equal to 126 mg/dL suggests DIABETES MELLITUS per A.D.A. criteria. Hemoglobin (Bld) [Mass/Vol] 12.4 g/dL 13.0-16.5 [facility] Monocytes/100 WBC (Bld) 12.8 % 0-[address] [facility] Neutrophils (Bld) [#/Vol] 2.4 10*3/uL 2.0-7.7 [facility] Neutrophils/100 WBC (Bld) 44.3 % 47-70 [facility] Potassium [Moles/Vol] 4.2 mmol/L 3.5-5.1 [facility] Protein [Mass/Vol] 7.0 g/dL 6.4-8.2 [facility] Sodium [Moles/Vol] 141 mmol/L 136-145 [facility] WBC (Bld) [#/Vol] 5.3 10*3/uL 4.4-11.0 [facility] Basophil percentageOrdered B y: Dalila Chaves on 11-06-2023 Cholesterol [Mass/Vol] 153 mg/dL <200 [facility] Comment on above: <200 mg/dL Desirable 200-240 mg/dL Borderline >240 mg/dL High Risk Triglyceride [Mass/Vol] 132 mg/dL <199 [facility] Comment on above: The drugs N-Acetylcy steine and Metamizole may falsely depress this assay.Serum Triglycerides Reference Interval Normal <150 mg/dL Borderline high 150 - 199 mg/dL High 200 - 499 mg/dL Very High > or = 500 mg/dL Determination of erythrocyte mean corpuscular volume (MCV)Ordered By: Briseyda Sinclair on 11-06-2023 MCV (RBC) [Entitic vol] 91.4 fL 80-94 [facility] Direct bilirubinOrdered By: Briseyda Sinclair on 11-06-2023 Bilirubin.direct [Mass/Vol] 0.11 mg/dL 0.00-0.30 [facility] Erythrocyte distribution wid th ratioOrdered By: Briseyda Sinclair on 11-06-2023 Erythrocyte distribution width (RBC) [Ratio] 13.1 % 11.6-14.6 [facility] Erythrocyte distribution wid th standard deviationOrdered By: Briseyda Sinclair on 11-06-2023 Erythrocyte distribution width (RBC) [Entitic vol] 43.8 fL 35.1-43.9 [facility] Hematocrit Auto (Bld) [Volum e fraction]Ordered By: Briseyda Sinclair on 11-06-2023 Hematocrit (Bld) [Volume fraction] 37.2 % 40-54 [facility] Immature granulocytes/100 WB C Auto (Bld)Ordered By: Briseyda Sinclair on 11-06-2023 Immature granulocytes/100 WBC (Bld) 0.400 % 0.0-0.9 [facility] Comment on above: IG% - Immature Granu locytes (promyelocytes, myelocytes and metamyelocytes) > 1% indicates that a LEFT SHIFT is Present. Laboratory - Chemistry and C hemistry - challengeOrdered By: Briseyda Sinclair on 11-06-2023 Albumin/Globulin [Mass ratio] 1.1 {ratio} 0.9-2.4 [facility] ALP [Catalytic activity/Vol] 77 U/L 45-117 [facility] ALT [Catalytic activity/Vol] 25 U/L 16-61 [facility] CO2 [Moles/Vol] 28.0 mmol/L 21.0-32.0 [facility] Globulin (S) [Mass/Vol] 3.4 g/dL 2.2-4.2 [facility] Urea nitrogen/Creatinine [Mass ratio] 20.2 mg/mg 10-20 [facility] Laboratory - Chemistry and C hemistry - challengeOrdered By: Dalila Chaves on 11-06-2023 Cholesterol in HDL [Mass/Vol] 47 mg/dL >40 [facility] Comment on above: The drugs N-Acetylcy steine and Metamizole may falsely depress this assay. Reference Range HDL <40 mg/dL Low HDL Cholesterol HDL >or= 60 mg/dL High HDL Cholesterol Cholesterol in LDL [Mass/Vol] 80 mg/dL 0-130 [facility] Laboratory - Hematology and Cell countsOrdered By: Briseyda Sinclair on 11-06-2023 MCH (RBC) [Entitic mass] 30.5 pg 27.0-32.0 [facility] MCHC (RBC) [Mass/Vol] 33.3 g/dL 32-36 [facility] Nucleated RBC/100 WBC (Bld) [Ratio] 0 % 0-5 [facility] Platelet mean volume (Bld) [Entitic vol] 10.0 fL 6.2-12.0 [facility] Platelets (Bld) [#/Vol] 289 10*3/uL 150-450 [facility] No Panel InformationOrdered By: Briseyda Sinclair on 11-06-2023 Estimated GFR (MDRD) Amer 81 mL/min >60 [facility] Comment on above: GFR Calc Estimated GFR (MDRD) Non-Af Amer 67 mL/min >60 [facility] Comment on above: Non- GFR Calc Prostate Specific Antigen Screen 2.56 ng/mL 0.00-4.00 [facility] Comment on above: This test was perfor med using the TPSA assay method for the[employer] Local chemistry system. Values obtained with differentassay methods cannot be used interchangably.When changing PSA assays in the course of monitoring apatient, additional sequential testing should be carriedout to confirm baseline values. Vitamin D 25-Hydroxy 44.2 ng/mL [facility] Comment on above: Vitamin D 25(OH) Sta tus Range Deficiency <20 ng/mL (50nmol/L) Insufficiency 20 - 30 ng/mL (50 - 75 nmol/L) Sufficiency 30 - 100 ng/mL (75 - 250 nmol/L) Toxicity >100 ng/mL (>250 nmol/L) No Panel InformationOrdered By: Dalila Chaves on 11-06-2023 VLDL Cholesterol 26 mg/dL 5-40 [facility] RBC Auto (Bld) [#/Vol]Ordere d By: Briseyda Sinclair on 11-06-2023 RBC (Bld) [#/Vol] 4.07 10*6/uL 4.6-6.2 [facility] Serum or plasma calcium makeda urement (mass/volume)Ordered By: Briseyda Sinclair on 11-06-2023 Calcium [Mass/Vol] 10.4 mg/dL 8.5-10.1 [facility] Serum or plasma creatinine m easurement (mass/volume)Ordered By: Briseyda Sinclair on 11-06-2023 Creatinine [Mass/Vol] 1.14 mg/dL 0.70-1.30 [facility] Comment on above: The validity of the calculated GFR & GFRAA in patients over 70 years has not been determined. Clinical correlation is essential. Serum or plasma thyroid stim ulating hormone (TSH) measurement (units/volume)Ordered By: Briseyda Sinclair on 11-06-2023 TSH Qn 3.00 uIU/mL 0.358-3.74 [facility] Serum or plasma urea nitroge n measurement (mass/volume)Ordered By: Briseyda Sinclair on 11-06-2023 Urea nitrogen [Mass/Vol] 23 mg/dL 7-18 [facility] Thin prep Papanicolaou smear with manual screeningOrdered By: Briseyda Sinclair on 11-06-2023 Thin prep Papanicolaou smear with manual screening 3.6 g/dL 3.2-5.0 [facility] Thin prep Papanicolaou smear with manual screening 11 U/L 15-37 [facility] Thin prep Papanicolaou smear with manual screening 5 5-15 [facility] Absolute lymphocyte countOrd ered By: Sadi Mccoy on 08-24-2023 Lymphocytes Auto (Unsp spec) [#/Vol] 1.66 10*3/uL 0.83-4.51 [facility] Basophil percentageOrdered B y: Sadi Mccoy on 08-24-2023 Basophils/100 WBC (Bld) 0.4 % 0-1 [facility] Chloride [Moles/Vol] 104 mmol/L 98-107 [facility] Eosinophils/100 WBC (Bld) 1.6 % 0-5 [facility] Glucose [Mass/Vol] 224 mg/dL 74-106 [facility] Comment on above: Glucose result great er than or equal to 200 mg/dLsuggests DIABETES MELLITUS per A.D.A. criteria. Neutrophils (Bld) [#/Vol] 7.4 10*3/uL 2.0-7.7 [facility] Neutrophils/100 WBC (Bld) 67.8 % 47-70 [facility] Potassium [Moles/Vol] 4.6 mmol/L 3.5-5.1 [facility] Sodium [Moles/Vol] 137 mmol/L 136-145 [facility] WBC (Bld) [#/Vol] 11.0 10*3/uL 4.4-11.0 [facility] Blood erythrocytes count (nu mber/volume)Ordered By: Sadi Mccoy on 08-24-2023 RBC (Bld) [#/Vol] 4.40 10*6/uL 4.6-6.2 [facility] Blood hemoglobin measurement (mass/volume)Ordered By: Sadi Mccoy on 08-24-2023 Hemoglobin (Bld) [Mass/Vol] 13.9 g/dL 13.0-16.5 [facility] Blood lymphocytes/100 leukoc ytesOrdered By: Sadi Mccoy on 08-24-2023 Lymphocytes/100 WBC (Bld) 15.2 % 19-41 [facility] Blood monocytes/100 leukocyt esOrdered By: Sadi Mccoy on 08-24-2023 Monocytes/100 WBC (Bld) 14.5 % 0-10 [facility] Blood platelet adequacy dete ction by light microscopyOrdered By: Sadi Mccoy on 08-24-2023 Platelets LM Ql (Bld) ADEQUATE ADEQ [facility] Blood platelet mean volumeOr dered By: Sadi Mccoy on 08-24-2023 Platelet mean volume (Bld) [Entitic vol] 9.8 fL 6.2-12.0 [facility] Determination of erythrocyte mean corpuscular volume (MCV)Ordered By: Sadi Mccoy on 08-24-2023 MCV (RBC) [Entitic vol] 91.1 fL 80-94 [facility] Hematocrit Auto (Bld) [Volum e fraction]Ordered By: Sadi Mccoy on 08-24-2023 Hematocrit (Bld) [Volume fraction] 40.1 % 40-54 [facility] Laboratory - Chemistry and C hemistry - challengeOrdered By: Sadi Mccoy on 08-24-2023 CO2 [Moles/Vol] 29.0 mmol/L 21.0-32.0 [facility] Urea nitrogen/Creatinine [Mass ratio] 23.5 mg/mg 10-20 [facility] Laboratory - Hematology and Cell countsOrdered By: Sadi Mccoy on 08-24-2023 Erythrocyte distribution width (RBC) [Entitic vol] 41.1 fL 35.1-43.9 [facility] Erythrocyte distribution width (RBC) [Ratio] 12.4 % 11.6-14.6 [facility] Immature granulocytes/100 WBC (Bld) 0.500 % 0.0-0.9 [facility] Comment on above: IG% - Immature Granu locytes (promyelocytes, myelocytes and metamyelocytes) > 1% indicates that a LEFT SHIFT is Present. MCH (RBC) [Entitic mass] 31.6 pg 27.0-32.0 [facility] Nucleated RBC/100 WBC (Bld) [Ratio] 0 % 0-5 [facility] MCHC Auto (RBC) [Mass/Vol]Or dered By: Sadi Mccoy on 08-24-2023 MCHC (RBC) [Mass/Vol] 34.7 g/dL 32-36 [facility] No Panel InformationOrdered By: Sadi Mccoy on 08-24-2023 Estimated Creatinine Clearance Calc 51.60 ml/min [facility] Estimated GFR (MDRD) Amer 68 mL/min >60 [facility] Comment on above: GFR Calc Estimated GFR (MDRD) Non-Af Amer 57 mL/min >60 [facility] Comment on above: Non- GFR Calc Platelets bldOrdered By: Misha Mccoy on 08-24-2023 Platelets (Bld) [#/Vol] 223 10*3/uL 150-450 [facility] RBC morphologyOrdered By: Supriya Mccoy on 08-24-2023 RBC morphology finding Nom (Bld) NORM C+C NORMAL NORM C&C [facility] Serum or plasma calcium makeda urement (mass/volume)Ordered By: Sadi Mccoy on 08-24-2023 Calcium [Mass/Vol] 10.1 mg/dL 8.5-10.1 [facility] Serum or plasma creatinine m easurement (mass/volume)Ordered By: Sadi Mccoy on 08-24-2023 Creatinine [Mass/Vol] 1.32 mg/dL 0.70-1.30 [facility] Comment on above: The validity of the calculated GFR & GFRAA in patients over 70 years has not been determined. Clinical correlation is essential. Serum or plasma urea nitroge n measurement (mass/volume)Ordered By: Sadi Mccoy on 08-24-2023 Urea nitrogen [Mass/Vol] 31 mg/dL 7-18 [facility] Thin prep Papanicolaou smear with manual screeningOrdered By: Sadi Mccoy on 08-24-2023 Thin prep Papanicolaou smear with manual screening 4 5-15 [facility] Absolute lymphocyte countOrd ered By: Diogenes Villalpando on 08-20-2023 Lymphocytes Auto (Unsp spec) [#/Vol] 1.88 10*3/uL 0.83-4.51 [facility] Basophil percentageOrdered B y: Diogenes Villalpando on 08-20-2023 Basophil percentage 0 SEEN /hpf 0-5 [facility] Basophils/100 WBC (Bld) 0.2 % 0-[address] [facility] Chloride [Moles/Vol] 101 mmol/L 98-107 [facility] Eosinophils/100 WBC (Bld) 2.0 % 0-5 [facility] Glucose [Mass/Vol] 271 mg/dL 74-106 [facility] Comment on above: Glucose result great er than or equal to 200 mg/dLsuggests DIABETES MELLITUS per A.D.A. criteria. Neutrophils (Bld) [#/Vol] 5.0 10*3/uL 2.0-7.7 [facility] Neutrophils/100 WBC (Bld) 62.5 % 47-70 [facility] Potassium [Moles/Vol] 4.4 mmol/L 3.5-5.1 [facility] Comment on above: Slight Hemolysis, Re sult may be falsely increased. Sodium [Moles/Vol] 137 mmol/L 136-145 [facility] WBC (Bld) [#/Vol] 8.0 10*3/uL 4.4-11.0 [facility] Bilirubin Test strip Ql (U)O rdered By: Diogenes Villalpando on 08-20-2023 Bilirubin Ql (U) Negative Negative [facility] Blood erythrocytes count (nu mber/volume)Ordered By: Diogenes Villalpando on 08-20-2023 RBC (Bld) [#/Vol] 4.54 10*6/uL 4.6-6.2 [facility] Blood hemoglobin measurement (mass/volume)Ordered By: Diogenes Villalpando on 08-20-2023 Hemoglobin (Bld) [Mass/Vol] 14.1 g/dL 13.0-16.5 [facility] Blood lymphocytes/100 leukoc ytesOrdered By: Diogenes Villalpando on 08-20-2023 Lymphocytes/100 WBC (Bld) 23.4 % 19-41 [facility] Blood monocytes/100 leukocyt esOrdered By: Diogenes Villalpando on 08-20-2023 Monocytes/100 WBC (Bld) 11.5 % 0-10 [facility] Blood platelet mean volumeOr dered By: Diogenes Villalpando on 08-20-2023 Platelet mean volume (Bld) [Entitic vol] 9.9 fL 6.2-12.0 [facility] Determination of erythrocyte mean corpuscular volume (MCV)Ordered By: Diogenes Villalpando on 08-20-2023 MCV (RBC) [Entitic vol] 91.4 fL 80-94 [facility] Hematocrit Auto (Bld) [Volum e fraction]Ordered By: Diogenes Villalpando on 08-20-2023 Hematocrit (Bld) [Volume fraction] 41.5 % 40-54 [facility] Ketones Test strip Ql (U)Ord ered By: Diogenes Villalpando on 08-20-2023 Ketones Ql (U) Negative Negative [facility] Laboratory - Chemistry and C hemistry - challengeOrdered By: Diogenes Villalpando on 08-20-2023 CO2 [Moles/Vol] 27.0 mmol/L 21.0-32.0 [facility] Urea nitrogen/Creatinine [Mass ratio] 29.7 mg/mg 10-20 [facility] Laboratory - Hematology and Cell countsOrdered By: Diogenes Villalpando on 08-20-2023 Erythrocyte distribution width (RBC) [Entitic vol] 40.8 fL 35.1-43.9 [facility] Erythrocyte distribution width (RBC) [Ratio] 12.2 % 11.6-14.6 [facility] Immature granulocytes/100 WBC (Bld) 0.400 % 0.0-0.9 [facility] Comment on above: IG% - Immature Granu locytes (promyelocytes, myelocytes and metamyelocytes) > 1% indicates that a LEFT SHIFT is Present. MCH (RBC) [Entitic mass] 31.1 pg 27.0-32.0 [facility] Nucleated RBC/100 WBC (Bld) [Ratio] 0 % 0-5 [facility] MCHC Auto (RBC) [Mass/Vol]Or dered By: Diogenes Villalpando on 08-20-2023 MCHC (RBC) [Mass/Vol] 34.0 g/dL 32-36 [facility] Mucus LM Ql (Urine sed)Order ed By: Diogenes Villalpando on 08-20-2023 Mucus Ql (Urine sed) 0 SEEN /hpf [facility] Nitrite Test strip Ql (U)Ord ered By: Diogenes Villalpando on 08-20-2023 Nitrite Ql (U) Negative Negative [facility] No Panel InformationOrdered By: Diogenes Villalpando on 08-20-2023 Estimated Creatinine Clearance Calc 49.90 ml/min [facility] Estimated GFR (MDRD) Amer 65 mL/min >60 [facility] Comment on above: GFR Calc Estimated GFR (MDRD) Non-Af Amer 54 mL/min >60 [facility] Comment on above: Non- GFR Calc Platelets bldOrdered By: Simeon Villalpando on 08-20-2023 Platelets (Bld) [#/Vol] 259 10*3/uL 150-450 [facility] Protein Test strip Ql (U)Ord ered By: Diogenes Villalpando on 08-20-2023 Protein Ql (U) 15 mg/dl Negative [facility] Serum or plasma calcium makeda urement (mass/volume)Ordered By: Diogenes Villalpando on 08-20-2023 Calcium [Mass/Vol] 9.5 mg/dL 8.5-10.1 [facility] Serum or plasma creatinine m easurement (mass/volume)Ordered By: Diogenes Villalpando on 08-20-2023 Creatinine [Mass/Vol] 1.38 mg/dL 0.70-1.30 [facility] Comment on above: The validity of the calculated GFR & GFRAA in patients over 70 years has not been determined. Clinical correlation is essential. Serum or plasma urea nitroge n measurement (mass/volume)Ordered By: Diogenes Villalpando on 08-20-2023 Urea nitrogen [Mass/Vol] 41 mg/dL 7-18 [facility] Squamous epithelial cells de tection in urine sediment by light microscopyOrdered By: Diogenes Villalpando on 08-20-2023 Epithelial cells.squamous LM Ql (Urine sed) 0 SEEN /hpf 0-5 [facility] Thin prep Papanicolaou smear with manual screeningOrdered By: Diogenes Villalpando on 08-20-2023 Thin prep Papanicolaou smear with manual screening 9 5-15 [facility] Urine blood detectionOrdered By: Diogenes Villalpando on 08-20-2023 RBC Ql (U) Negative Negative [facility] RBC Ql (U) 0 SEEN /hpf 0-5 [facility] Urine clarityOrdered By: Simeon Villalpando on 08-20-2023 Clarity (U) Clear Clear [facility] Urine color determinationOrd ered By: Diogenes Villalpando on 08-20-2023 Color (U) Yellow Yellow [facility] Urine glucose detectionOrder ed By: Diogenes Villalpando on 08-20-2023 Glucose Ql (U) 1000 mg/dl Normal [facility] Urine leukocyte esterase det ection by dipstickOrdered By: Diogenes Villalpando on 08-20-2023 Leukocyte esterase Test strip Ql (U) Negative Negative [facility] Urine pHOrdered By: Diogenes Villalpando on 08-20-2023 pH (U) 6.0 [pH] 5.0 - 8.0 [facility] Urine sediment bacteria coun t by microscopy (number/high power field)Ordered By: Diogenes Villalpando on 08-20-2023 Bacteria LM.HPF (Urine sed) [#/Area] 0 /[HPF] None Seen [facility] Urine specific gravity measu rementOrdered By: Diogenes Villalpando on 08-20-2023 Specific gravity (U) [Rel density] 1.015 1.002-1.030 [facility] Urobilinogen Auto test strip Ql (U)Ordered By: Diogenes Villalpando on 08-20-2023 Urobilinogen Ql (U) Normal mg/dl Normal [facility] No Panel Informationon 08-13 Influenza Types A,B Rapid (Clinic) Negative [facility] POC SARS CoV-2 Antigen Positive [facility] Basophil percentageOrdered B y: Mc Saleh on 05-23-2023 Chloride [Moles/Vol] 107 mmol/L 98-107 [facility] Cholesterol [Mass/Vol] 125 mg/dL <200 [facility] Comment on above: <200 mg/dL Desirable 200-240 mg/dL Borderline >240 mg/dL High Risk Glucose [Mass/Vol] 191 mg/dL 74-106 [facility] Comment on above: Fasting Glucose resu lt greater than or equal to 126 mg/dL suggests DIABETES MELLITUS per A.D.A. criteria. Potassium [Moles/Vol] 4.2 mmol/L 3.5-5.1 [facility] Sodium [Moles/Vol] 140 mmol/L 136-145 [facility] Triglyceride [Mass/Vol] 228 mg/dL <199 [facility] Comment on above: The drugs N-Acetylcy steine and Metamizole may falsely depress this assay.Serum Triglycerides Reference Interval Normal <150 mg/dL Borderline high 150 - 199 mg/dL High 200 - 499 mg/dL Very High > or = 500 mg/dL Laboratory - Chemistry and C hemistry - challengeOrdered By: Mc Saleh on 05-23-2023 ALT [Catalytic activity/Vol] 29 U/L 16-61 [facility] CK [Catalytic activity/Vol] 81 U/L 39-308 [facility] CO2 [Moles/Vol] 27.0 mmol/L 21.0-32.0 [facility] Urea nitrogen/Creatinine [Mass ratio] 22.2 mg/mg 10-20 [facility] No Panel InformationOrdered By: Mc Saleh on 05-23-2023 Estimated GFR (MDRD) Amer 79 mL/min >60 [facility] Comment on above: GFR Calc Estimated GFR (MDRD) Non-Af Amer 65 mL/min >60 [facility] Comment on above: Non- GFR Calc Serum or plasma calcium makeda urement (mass/volume)Ordered By: Mc Saleh on 05-23-2023 Calcium [Mass/Vol] 9.0 mg/dL 8.5-10.1 [facility] Serum or plasma cholesterol in HDL measurement (mass/volume)Ordered By: Mc Saleh on 05-23-2023 Cholesterol in HDL [Mass/Vol] 39 mg/dL >40 [facility] Comment on above: The drugs N-Acetylcy steine and Metamizole may falsely depress this assay. Reference Range HDL <40 mg/dL Low HDL Cholesterol HDL >or= 60 mg/dL High HDL Cholesterol Serum or plasma cholesterol in VLDL measurement (mass/volume)Ordered By: Mc Saleh on 05-23-2023 Cholesterol in VLDL [Mass/Vol] 46 mg/dL 5-40 [facility] Serum or plasma creatinine m easurement (mass/volume)Ordered By: Mc Saleh on 05-23-2023 Creatinine [Mass/Vol] 1.17 mg/dL 0.70-1.30 [facility] Comment on above: The validity of the calculated GFR & GFRAA in patients over 70 years has not been determined. Clinical correlation is essential. Serum or plasma low density lipoprotein (LDL) cholesterol measurement (mass/volume)Ordered By: Mc Saleh on 05-23-2023 Cholesterol in LDL [Mass/Vol] 40 mg/dL 0-130 [facility] Serum or plasma urea nitroge n measurement (mass/volume)Ordered By: Mc Saleh on 05-23-2023 Urea nitrogen [Mass/Vol] 26 mg/dL 7-18 [facility] Thin prep Papanicolaou smear with manual screeningOrdered By: Mc Saleh on 05-23-2023 Thin prep Papanicolaou smear with manual screening 13 U/L 15-37 [facility] Thin prep Papanicolaou smear with manual screening 6 5-15 [facility] Absolute lymphocyte countOrd ered By: Briseyda Sinclair on 04-03-2023 Lymphocytes Auto (Unsp spec) [#/Vol] 1.71 10*3/uL 0.83-4.51 [facility] Basophil percentageOrdered B y: Briseyda Sinclair on 04-03-2023 Basophils/100 WBC (Bld) 0.2 % 0-1 [facility] Bilirubin [Mass/Vol] 0.40 mg/dL 0.20-1.00 [facility] Comment on above: For patients on eltr ombopag therapy, use of Dimension Maramec TBIL is not recommended. Chloride [Moles/Vol] 104 mmol/L 98-107 [facility] Eosinophils/100 WBC (Bld) 4.7 % 0-5 [facility] Glucose [Mass/Vol] 345 mg/dL 74-106 [facility] Comment on above: Glucose result great er than or equal to 200 mg/dLsuggests DIABETES MELLITUS per A.D.A. criteria. Neutrophils (Bld) [#/Vol] 2.3 10*3/uL 2.0-7.7 [facility] Neutrophils/100 WBC (Bld) 48.3 % 47-70 [facility] Potassium [Moles/Vol] 4.6 mmol/L 3.5-5.1 [facility] Protein [Mass/Vol] 6.7 g/dL 6.4-8.2 [facility] Sodium [Moles/Vol] 138 mmol/L 136-145 [facility] WBC (Bld) [#/Vol] 4.9 10*3/uL 4.4-11.0 [facility] Blood erythrocytes count (nu mber/volume)Ordered By: Briseyda Sinclair on 04-03-2023 RBC (Bld) [#/Vol] 4.11 10*6/uL 4.6-6.2 [facility] Blood hemoglobin measurement (mass/volume)Ordered By: Briseyda Sinclair on 04-03-2023 Hemoglobin (Bld) [Mass/Vol] 13.0 g/dL 13.0-16.5 [facility] Blood lymphocytes/100 leukoc ytesOrdered By: Briseyda Sinclair on 04-03-2023 Lymphocytes/100 WBC (Bld) 35.3 % 19-41 [facility] Blood monocytes/100 leukocyt esOrdered By: Briseyda Sinclair on 04-03-2023 Monocytes/100 WBC (Bld) 11.3 % 0-10 [facility] Blood platelet mean volumeOr dered By: Briseyda Sinclair on 04-03-2023 Platelet mean volume (Bld) [Entitic vol] 9.2 fL 6.2-12.0 [facility] Determination of erythrocyte mean corpuscular volume (MCV)Ordered By: Briseyda Sinclair on 04-03-2023 MCV (RBC) [Entitic vol] 91.5 fL 80-94 [facility] Hematocrit Auto (Bld) [Volum e fraction]Ordered By: Briseyda Sinclair on 04-03-2023 Hematocrit (Bld) [Volume fraction] 37.6 % 40-54 [facility] Laboratory - Chemistry and C hemistry - challengeOrdered By: Briseyda Sinclair on 04-03-2023 ALP [Catalytic activity/Vol] 62 U/L 45-117 [facility] ALT [Catalytic activity/Vol] 35 U/L 16-61 [facility] CO2 [Moles/Vol] 28.0 mmol/L 21.0-32.0 [facility] Globulin (S) [Mass/Vol] 3.1 g/dL 2.2-4.2 [facility] Urea nitrogen/Creatinine [Mass ratio] 16.2 mg/mg 10-20 [facility] Laboratory - Hematology and Cell countsOrdered By: Briseyda Sinclair on 04-03-2023 Erythrocyte distribution width (RBC) [Entitic vol] 41.0 fL 35.1-43.9 [facility] Erythrocyte distribution width (RBC) [Ratio] 12.3 % 11.6-14.6 [facility] Immature granulocytes/100 WBC (Bld) 0.200 % 0.0-0.9 [facility] Comment on above: IG% - Immature Granu locytes (promyelocytes, myelocytes and metamyelocytes) > 1% indicates that a LEFT SHIFT is Present. MCH (RBC) [Entitic mass] 31.6 pg 27.0-32.0 [facility] Nucleated RBC/100 WBC (Bld) [Ratio] 0 % 0-5 [facility] MCHC Auto (RBC) [Mass/Vol]Or dered By: Briseyda Sinclair on 04-03-2023 MCHC (RBC) [Mass/Vol] 34.6 g/dL 32-36 [facility] No Panel InformationOrdered By: Briseyda Sinclair on 04-03-2023 Estimated GFR (MDRD) Amer 63 mL/min >60 [facility] Comment on above: GFR Calc Estimated GFR (MDRD) Non-Af Amer 52 mL/min >60 [facility] Comment on above: Non- GFR Calc Vitamin D 25-Hydroxy 50.8 ng/mL [facility] Comment on above: Vitamin D 25(OH) Sta tus Range Deficiency <20 ng/mL (50nmol/L) Insufficiency 20 - 30 ng/mL (50 - 75 nmol/L) Sufficiency 30 - 100 ng/mL (75 - 250 nmol/L) Toxicity >100 ng/mL (>250 nmol/L) Platelets bldOrdered By: Isadora Sinclair on 04-03-2023 Platelets (Bld) [#/Vol] 233 10*3/uL 150-450 [facility] Serum or plasma albumin makeda urement (mass/volume)Ordered By: Briseyda Sinclair on 04-03-2023 Albumin [Mass/Vol] 3.6 g/dL 3.2-5.0 [facility] Serum or plasma albumin/glob ulin mass ratioOrdered By: Briseyda Sinclair on 04-03-2023 Albumin/Globulin [Mass ratio] 1.2 {ratio} 0.9-2.4 [facility] Serum or plasma calcium makeda urement (mass/volume)Ordered By: Briseyda Sinclair on 04-03-2023 Calcium [Mass/Vol] 9.1 mg/dL 8.5-10.1 [facility] Serum or plasma creatinine m easurement (mass/volume)Ordered By: Briseyda Sinclair on 04-03-2023 Creatinine [Mass/Vol] 1.42 mg/dL 0.70-1.30 [facility] Comment on above: The validity of the calculated GFR & GFRAA in patients over 70 years has not been determined. Clinical correlation is essential. Serum or plasma urea nitroge n measurement (mass/volume)Ordered By: Briseyda Sinclair on 04-03-2023 Urea nitrogen [Mass/Vol] 23 mg/dL 7-18 [facility] Thin prep Papanicolaou smear with manual screeningOrdered By: Briseyda Sinclair on 04-03-2023 Thin prep Papanicolaou smear with manual screening 15 U/L 15- [facility] Thin prep Papanicolaou smear with manual screening 6 5-15 [facility] Laboratory - Hematology and Cell countson 04-01-2023 HbA1c (Bld) [Mass fraction] 10.7 % 4.2-6.3 [facility] Absolute lymphocyte countOrd ered By: Dr. Sinclair on 09-25-2022 Lymphocytes Auto (Unsp spec) [#/Vol] 1.60 10*3/uL 0.83-4.51 [facility] Basophil percentageOrdered B y: Dr. Sinclair on 09-25-2022 Basophils/100 WBC (Bld) 0.4 % 0-[address] [facility] Bilirubin [Mass/Vol] 0.40 mg/dL 0.20-1.00 [facility] Comment on above: For patients on eltr ombopag therapy, use of Dimension Maramec TBIL is not recommended. Chloride [Moles/Vol] 106 mmol/L 98-107 [facility] Cholesterol [Mass/Vol] 165 mg/dL <200 [facility] Comment on above: <200 mg/dL Desirable 200-240 mg/dL Borderline >240 mg/dL High Risk Eosinophils/100 WBC (Bld) 5.2 % 0-5 [facility] Glucose [Mass/Vol] 219 mg/dL 74-106 [facility] Comment on above: Glucose result great er than or equal to 200 mg/dLsuggests DIABETES MELLITUS per A.D.A. criteria. Neutrophils (Bld) [#/Vol] 2.1 10*3/uL 2.0-7.7 [facility] Neutrophils/100 WBC (Bld) 46.9 % 47-70 [facility] Potassium [Moles/Vol] 4.2 mmol/L 3.5-5.1 [facility] Protein [Mass/Vol] 7.2 g/dL 6.4-8.2 [facility] Sodium [Moles/Vol] 139 mmol/L 136-145 [facility] Triglyceride [Mass/Vol] 221 mg/dL <199 [facility] Comment on above: The drugs N-Acetylcy steine and Metamizole may falsely depress this assay.Serum Triglycerides Reference Interval Normal <150 mg/dL Borderline high 150 - 199 mg/dL High 200 - 499 mg/dL Very High > or = 500 mg/dL WBC (Bld) [#/Vol] 4.5 10*3/uL 4.4-11.0 [facility] Blood erythrocytes count (nu mber/volume)Ordered By: Dr. Sinclair on 09-25-2022 RBC (Bld) [#/Vol] 4.45 10*6/uL 4.6-6.2 [facility] Blood hemoglobin measurement (mass/volume)Ordered By: Dr. Sinclair on 09-25-2022 Hemoglobin (Bld) [Mass/Vol] 13.8 g/dL 13.0-16.5 [facility] Blood lymphocytes/100 leukoc ytesOrdered By: Dr. Sinclair on 09-25-2022 Lymphocytes/100 WBC (Bld) 36.0 % 19-41 [facility] Blood monocytes/100 leukocyt esOrdered By: Dr. Sinclair on 09-25-2022 Monocytes/100 WBC (Bld) 11.5 % 0-[address] [facility] Blood platelet mean volumeOr dered By: Dr. Sinclair on 09-25-2022 Platelet mean volume (Bld) [Entitic vol] 10.3 fL 6.2-12.0 [facility] Determination of erythrocyte mean corpuscular volume (MCV)Ordered By: Dr. Sinclair on 09-25-2022 MCV (RBC) [Entitic vol] 92.1 fL 80-94 [facility] Hematocrit Auto (Bld) [Volum e fraction]Ordered By: Dr. Sinclair on 09-25-2022 Hematocrit (Bld) [Volume fraction] 41.0 % 40-54 [facility] Laboratory - Chemistry and C hemistry - challengeOrdered By: Dr. Sinclair on 09-25-2022 ALP [Catalytic activity/Vol] 55 U/L 45-117 [facility] ALT [Catalytic activity/Vol] 34 U/L 16-61 [facility] CO2 [Moles/Vol] 28.0 mmol/L 21.0-32.0 [facility] Globulin (S) [Mass/Vol] 3.3 g/dL 2.2-4.2 [facility] Urea nitrogen/Creatinine [Mass ratio] 23.0 mg/mg 10-20 [facility] Laboratory - Hematology and Cell countsOrdered By: Dr. Sinclair on 09-25-2022 Erythrocyte distribution width (RBC) [Entitic vol] 42.1 fL 35.1-43.9 [facility] Erythrocyte distribution width (RBC) [Ratio] 12.5 % 11.6-14.6 [facility] Immature granulocytes/100 WBC (Bld) 0.000 % 0.0-0.9 [facility] Comment on above: IG% - Immature Granu locytes (promyelocytes, myelocytes and metamyelocytes) > 1% indicates that a LEFT SHIFT is Present. MCH (RBC) [Entitic mass] 31.0 pg 27.0-32.0 [facility] Nucleated RBC/100 WBC (Bld) [Ratio] 0.4 % 0-5 [facility] MCHC Auto (RBC) [Mass/Vol]Or dered By: Dr. Sinclair on 09-25-2022 MCHC (RBC) [Mass/Vol] 33.7 g/dL 32-36 [facility] No Panel InformationOrdered By: Dr. Sinclair on 09-25-2022 Estimated GFR (MDRD) Amer 82 mL/min >60 [facility] Comment on above: GFR Calc Estimated GFR (MDRD) Non-Af Amer 68 mL/min >60 [facility] Comment on above: Non- GFR Calc Prostate Specific Antigen Screen 1.97 ng/mL 0.00-4.00 [facility] Comment on above: This test was perfor med using the TPSA assay method for the[employer] chemistry system. Values obtained with differentassay methods cannot be used interchangably.When changing PSA assays in the course of monitoring apatient, additional sequential testing should be carriedout to confirm baseline values. Thyroid Stimulating Hormone (TSH) 3.41 uIU/mL 0.358-3.74 [facility] Vitamin D 25-Hydroxy 37.2 ng/mL [facility] Comment on above: Vitamin D 25(OH) Sta tus Range Deficiency <20 ng/mL (50nmol/L) Insufficiency 20 - 30 ng/mL (50 - 75 nmol/L) Sufficiency 30 - 100 ng/mL (75 - 250 nmol/L) Toxicity >100 ng/mL (>250 nmol/L) Platelets bldOrdered By: Dr. Sinclair on 09-25-2022 Platelets (Bld) [#/Vol] 244 10*3/uL 150-450 [facility] Serum or plasma albumin makeda urement (mass/volume)Ordered By: Dr. Sinclair on 09-25-2022 Albumin [Mass/Vol] 3.9 g/dL 3.2-5.0 [facility] Serum or plasma albumin/glob ulin mass ratioOrdered By: Dr. Sinclair on 09-25-2022 Albumin/Globulin [Mass ratio] 1.2 {ratio} 0.9-2.4 [facility] Serum or plasma calcium makeda urement (mass/volume)Ordered By: Dr. Sinclair on 09-25-2022 Calcium [Mass/Vol] 9.3 mg/dL 8.5-10.1 [facility] Serum or plasma cholesterol in HDL measurement (mass/volume)Ordered By: Dr. Sinclair on 09-25-2022 Cholesterol in HDL [Mass/Vol] 40 mg/dL >40 [facility] Comment on above: The drugs N-Acetylcy steine and Metamizole may falsely depress this assay. Reference Range HDL <40 mg/dL Low HDL Cholesterol HDL >or= 60 mg/dL High HDL Cholesterol Serum or plasma cholesterol in VLDL measurement (mass/volume)Ordered By: Dr. Sinclair on 09-25-2022 Cholesterol in VLDL [Mass/Vol] 44 mg/dL 5-40 [facility] Serum or plasma creatinine m easurement (mass/volume)Ordered By: Dr. Sinclair on 09-25-2022 Creatinine [Mass/Vol] 1.13 mg/dL 0.70-1.30 [facility] Comment on above: The validity of the calculated GFR & GFRAA in patients over 70 years has not been determined. Clinical correlation is essential. Serum or plasma low density lipoprotein (LDL) cholesterol measurement (mass/volume)Ordered By: Dr. Sinclair on 09-25-2022 Cholesterol in LDL [Mass/Vol] 81 mg/dL 0-130 [facility] Serum or plasma urea nitroge n measurement (mass/volume)Ordered By: Dr. Sinclair on 09-25-2022 Urea nitrogen [Mass/Vol] 26 mg/dL 7-18 [facility] Thin prep Papanicolaou smear with manual screeningOrdered By: Dr. Sinclair on 09-25-2022 Thin prep Papanicolaou smear with manual screening 13 U/L 15-37 [facility] Thin prep Papanicolaou smear with manual screening 5 5-15 [facility] Laboratory - Hematology and Cell countson 09-24-2022 HbA1c (Bld) [Mass fraction] 11.4 % 4.2-6.3 [facility] Basophil percentageon 2021 Chloride [Moles/Vol] 102 mmol/L 98-107 [facility] Work Phone: Glucose [Mass/Vol] 394 mg/dL 74-106 [facility] Work Phone: Comment on above: Glucose result great er than or equal to 200 mg/dLsuggests DIABETES MELLITUS per A.D.A. criteria. Potassium [Moles/Vol] 4.5 mmol/L 3.5-5.1 [facility] Work Phone: Sodium [Moles/Vol] 136 mmol/L 136-145 [facility] Work Phone: Laboratory - Chemistry and C hemistry - challengeon 06-04-2022 CO2 [Moles/Vol] 26.0 mmol/L 21.0-32.0 [facility] Work Phone: Urea nitrogen/Creatinine [Mass ratio] 21.4 mg/mg 10-20 [facility] Work Phone: No Panel Informationon 06-04 Estimated GFR (MDRD) Amer 64 mL/min >60 [facility] Work Phone: Comment on above: GFR Calc Estimated GFR (MDRD) Non-Af Amer 53 mL/min >60 [facility] Work Phone: Comment on above: Non- GFR Calc Serum or plasma calcium makeda urement (mass/volume)on 06-04-2022 Calcium [Mass/Vol] 9.3 mg/dL 8.5-10.1 [facility] Work Phone: Serum or plasma creatinine m easurement (mass/volume)on 06-04-2022 Creatinine [Mass/Vol] 1.40 mg/dL 0.70-1.30 [facility] Work Phone: Comment on above: The validity of the calculated GFR & GFRAA in patients over 70 years has not been determined. Clinical correlation is essential. Serum or plasma urea nitroge n measurement (mass/volume)on 06-04-2022 Urea nitrogen [Mass/Vol] 30 mg/dL 7-18 [facility] Work Phone: Thin prep Papanicolaou smear with manual screeningon 06-04-2022 Thin prep Papanicolaou smear with manual screening 8 5-15 [facility] Work Phone: Basophil percentageon 2021 Chloride [Moles/Vol] 102 mmol/L 98-107 [facility] Work Phone: [phone] Glucose [Mass/Vol] 334 mg/dL 74-106 [facility] Work Phone: Comment on above: Glucose result great er than or equal to 200 mg/dLsuggests DIABETES MELLITUS per A.D.A. criteria. Potassium [Moles/Vol] 4.8 mmol/L 3.5-5.1 [facility] Work Phone: Sodium [Moles/Vol] 136 mmol/L 136-145 [facility] Work Phone: WBC (Bld) [#/Vol] 5.6 10*3/uL 4.4-11.0 [facility] Work Phone: Blood erythrocytes count (nu mber/volume)on 05-24-2022 RBC (Bld) [#/Vol] 4.22 10*6/uL 4.6-6.2 [facility] Work Phone: Blood hemoglobin measurement (mass/volume)on 05-24-2022 Hemoglobin (Bld) [Mass/Vol] 13.4 g/dL 13.0-16.5 [facility] Work Phone: Blood platelet mean volumeon 05-24-2022 Platelet mean volume (Bld) [Entitic vol] 10.3 fL 6.2-12.0 [facility] Work Phone: Determination of erythrocyte mean corpuscular volume (MCV)on 05-24-2022 MCV (RBC) [Entitic vol] 92.4 fL 80-94 [facility] Work Phone: Hematocrit Auto (Bld) [Volum e fraction]on 05-24-2022 Hematocrit (Bld) [Volume fraction] 39.0 % 40-54 [facility] Work Phone: INR in Blood by Coagulation assayon 05-24-2022 INR Coag (Bld) [Relative time] 0.9 {INR} [facility] Work Phone: Laboratory - Chemistry and C hemistry - challengeon 05-24-2022 CO2 [Moles/Vol] 25.0 mmol/L 21.0-32.0 [facility] Work Phone: Urea nitrogen/Creatinine [Mass ratio] 25.8 mg/mg 10-20 [facility] Work Phone: Laboratory - Coagulationon 0 05-24-2022 aPTT Coag (Bld) [Time] 25.4 s 24.1-36.2 [facility] Work Phone: PT Coag (PPP) [Time] 11.7 s 11.7-14.9 [facility] Work Phone: Laboratory - Hematology and Cell countson 05-24-2022 Erythrocyte distribution width (RBC) [Entitic vol] 41.1 fL 35.1-43.9 [facility] Work Phone: Erythrocyte distribution width (RBC) [Ratio] 12.2 % 11.6-14.6 [facility] Work Phone: [phone] MCH (RBC) [Entitic mass] 31.8 pg 27.0-32.0 [facility] Work Phone: MCHC Auto (RBC) [Mass/Vol]on 05-24-2022 MCHC (RBC) [Mass/Vol] 34.4 g/dL 32-36 [facility] Work Phone: No Panel Informationon 05-24 Estimated GFR (MDRD) Amer 44 mL/min >60 [facility] Work Phone: Comment on above: GFR Calc Estimated GFR (MDRD) Non-Af Amer 36 mL/min >60 [facility] Work Phone: Comment on above: Non- GFR Calc Platelets bldon 05-24-2022 Platelets (Bld) [#/Vol] 251 10*3/uL 150-450 [facility] Work Phone: Serum or plasma calcium makeda urement (mass/volume)on 05-24-2022 Calcium [Mass/Vol] 9.6 mg/dL 8.5-10.1 [facility] Work Phone: Serum or plasma creatinine m easurement (mass/volume)on 05-24-2022 Creatinine [Mass/Vol] 1.94 mg/dL 0.70-1.30 [facility] Work Phone: Comment on above: The validity of the calculated GFR & GFRAA in patients over 70 years has not been determined. Clinical correlation is essential. Serum or plasma urea nitroge n measurement (mass/volume)on 05-24-2022 Urea nitrogen [Mass/Vol] 50 mg/dL 7-18 [facility] Work Phone: Thin prep Papanicolaou smear with manual screeningon 05-24-2022 Thin prep Papanicolaou smear with manual screening 9 5-15 [facility] Work Phone: Laboratory - Hematology and Cell countson 03-21-2022 HbA1c (Bld) [Mass fraction] 10.0 % 4.2-6.3 [facility] Work Phone: CNTHERAPYon 02-09-2022 CNTHERAPY OT/PT/Speech Visit (PTWS) COLEMAN DAVIES ([id number]) 1950 M Date Time Provider Department 02/09/22 9:30 AM MARIA ELENA ZHONG Date Time Provider Department Center 02/09/2022 9:30 AM [id number] ELENA ZHONG [facility] Reason for Visit: PT Discharge [752] 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] Allergies As of Date: 02/09/2022 (Not on File) Date Reviewed: Never Reviewed Normal [facility] CNTHERAPYon 02-02-2022 CNTHERAPY OT/PT/Speech Visit (PTWS) COLEMAN DAVIES ([id number]) 1950 M Date Time Provider Department 02/02/22 9:30 AM MARIA ELENA ZHONG Date Time Provider Department Center 02/02/2022 9:30 AM [id number] ELENA HACKETT Reason for Visit: PT Progress Note [1596] 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] Allergies As of Date: 02/02/2022 (Not on File) Date Reviewed: Never Reviewed Letter Text Normal [facility] CNTHERAPYon 01-26-2022 CNTHERAPY OT/PT/Speech Visit (PTWS) COLEMAN DAVIES ([id number]) 1950 M Date Time Provider Department 01/26/22 8:45 AM MARIA ELENA ZHONG Date Time Provider Department Center 01/26/2022 8:45 AM [id number] ELENA CHIU Reason for Visit: Physical Therapy [503] 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] Allergies As of Date: 01/26/2022 (Not on File) Date Reviewed: Never Reviewed Normal [facility] CNTHERAPYon 01-19-2022 CNTHERAPY OT/PT/Speech Visit (PTWS) COLEMAN DAVIES ([id number]) 1950 M Date Time Provider Department 01/19/22 9:30 AM MARIA ELENA ZHONG Date Time Provider Department Center 01/19/2022 9:30 AM [id number] ELENA ZHONG [facility] Reason for Visit: PT Progress Note [1596] 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] Allergies As of Date: 01/19/2022 (Not on File) Date Reviewed: Never Reviewed Normal [facility] Absolute lymphocyte counton 01-08-2022 Lymphocytes Auto (Unsp spec) [#/Vol] 2.13 10*3/uL 0.83-4.51 [facility] Work Phone: Basophil percentageon 2021 Basophil percentage 0 SEEN /hpf [facility] Work Phone: Basophils/100 WBC (Bld) 0.1 % 0-1 [facility] Work Phone: Chloride [Moles/Vol] 101 mmol/L 98-107 [facility] Work Phone: Eosinophils/100 WBC (Bld) 0.5 % 0-5 [facility] Work Phone: Glucose [Mass/Vol] 404 mg/dL 74-106 [facility] Work Phone: Comment on above: Glucose result great er than or equal to 200 mg/dLsuggests DIABETES MELLITUS per A.D.A. criteria. Neutrophils (Bld) [#/Vol] 10.3 10*3/uL 2.0-7.7 [facility] Work Phone: Neutrophils/100 WBC (Bld) 76.7 % 47-70 [facility] Work Phone: Potassium [Moles/Vol] 5.3 mmol/L 3.5-5.1 [facility] Work Phone: Comment on above: Slight Hemolysis, Re sult may be falsely increased. Sodium [Moles/Vol] 133 mmol/L 136-145 [facility] Work Phone: WBC (Bld) [#/Vol] 13.5 10*3/uL 4.4-11.0 [facility] Work Phone: Bilirubin Test strip Ql (U)o n 01-08-2022 Bilirubin Ql (U) Negative Negative [facility] Work Phone: Blood erythrocytes count (nu mber/volume)on 01-08-2022 RBC (Bld) [#/Vol] 5.30 10*6/uL 4.6-6.2 [facility] Work Phone: Blood hemoglobin measurement (mass/volume)on 01-08-2022 Hemoglobin (Bld) [Mass/Vol] 16.5 g/dL 13.0-16.5 [facility] Work Phone: Blood lymphocytes/100 leukoc yteson 01-08-2022 Lymphocytes/100 WBC (Bld) 15.8 % 19-41 [facility] Work Phone: Blood monocytes/100 leukocyt eson 01-08-2022 Monocytes/100 WBC (Bld) 6.2 % 0-10 [facility] Work Phone: [phone] Blood platelet mean volumeon 01-08-2022 Platelet mean volume (Bld) [Entitic vol] 10.7 fL 6.2-12.0 [facility] Work Phone: [phone] Determination of erythrocyte mean corpuscular volume (MCV)on 01-08-2022 MCV (RBC) [Entitic vol] 90.0 fL 80-94 [facility] Work Phone: [phone] Glucose Glucometer (BldC) [M ass/Vol]on 01-08-2022 Glucose [Mass/Vol] 273 mg/dL 74-106 [facility] Work Phone: [phone] Comment on above: MANAGEMENT OF PATIEN T CARE PER NURSING PROTOCOL Hematocrit Auto (Bld) [Volum e fraction]on 01-08-2022 Hematocrit (Bld) [Volume fraction] 47.7 % 40-54 [facility] Work Phone: [phone] Ketones Test strip Ql (U)on 01-08-2022 Ketones Ql (U) Negative Negative [facility] Work Phone: [phone] Laboratory - Chemistry and C hemistry - challengeon 01-08-2022 CO2 [Moles/Vol] 22.0 mmol/L 21.0-32.0 [facility] Work Phone: [phone] Urea nitrogen/Creatinine [Mass ratio] 38.4 mg/mg 10-20 [facility] Work Phone: [phone] Laboratory - Hematology and Cell countson 01-08-2022 Erythrocyte distribution width (RBC) [Entitic vol] 41.6 fL 35.1-43.9 [facility] Work Phone: [phone] Erythrocyte distribution width (RBC) [Ratio] 12.5 % 11.6-14.6 [facility] Work Phone: [phone] Immature granulocytes/100 WBC (Bld) 0.700 % 0.0-0.9 [facility] Work Phone: [phone] Comment on above: IG% - Immature Granu locytes (promyelocytes, myelocytes and metamyelocytes) > 1% indicates that a LEFT SHIFT is Present. MCH (RBC) [Entitic mass] 31.1 pg 27.0-32.0 [facility] Work Phone: [phone] Nucleated RBC/100 WBC (Bld) [Ratio] 0 % 0-5 [facility] Work Phone: [phone] MCHC Auto (RBC) [Mass/Vol]on 01-08-2022 MCHC (RBC) [Mass/Vol] 34.6 g/dL 32-36 [facility] Work Phone: [phone] Mucus LM Ql (Urine sed)on Mucus Ql (Urine sed) 0 SEEN /hpf [facility] Work Phone: [phone] Nitrite Test strip Ql (U)on 01-08-2022 Nitrite Ql (U) Negative Negative [facility] Work Phone: [phone] Panel Informationon 01-08 Estimated Creatinine Clearance Calc 45.23 ml/min [facility] Work Phone: [phone] Estimated GFR (MDRD) Amer 61 mL/min >60 [facility] Work Phone: [phone] Comment on above: GFR Calc Estimated GFR (MDRD) Non-Af Amer 51 mL/min >60 [facility] Work Phone: [phone] Comment on above: Non- GFR Calc Platelets bldon 01-08-2022 Platelets (Bld) [#/Vol] 329 10*3/uL 150-450 [facility] Work Phone: [phone] Protein Test strip Ql (U)on 01-08-2022 Protein Ql (U) 15 mg/dl Negative [facility] Work Phone: [phone] Serum or plasma calcium makeda urement (mass/volume)on 01-08-2022 Calcium [Mass/Vol] 10.6 mg/dL 8.5-10.1 [facility] Work Phone: [phone] Serum or plasma creatinine m easurement (mass/volume)on 01-08-2022 Creatinine [Mass/Vol] 1.46 mg/dL 0.70-1.30 [facility] Work Phone: Comment on above: The validity of the calculated GFR & GFRAA in patients over 70 years has not been determined. Clinical correlation is essential. Serum or plasma urea nitroge n measurement (mass/volume)on 01-08-2022 Urea nitrogen [Mass/Vol] 56 mg/dL 7-18 [facility] Work Phone: Squamous epithelial cells de tection in urine sediment by light microscopyon 01-08-2022 Epithelial cells.squamous LM Ql (Urine sed) 0 SEEN /hpf [facility] Work Phone: Thin prep Papanicolaou smear with manual screeningon 01-08-2022 Thin prep Papanicolaou smear with manual screening 10 5-15 [facility] Work Phone: Urine blood detectionon 12-16 RBC Ql (U) Negative Negative [facility] Work Phone: RBC Ql (U) 0 SEEN /hpf [facility] Work Phone: Urine clarityon 01-08-2022 Clarity (U) Clear Clear [facility] Work Phone: Urine color determinationon 01-08-2022 Color (U) Yellow Yellow [facility] Work Phone: Urine glucose detectionon Glucose Ql (U) 1000 mg/dl Normal [facility] Work Phone: Urine leukocyte esterase det ection by dipstickon 01-08-2022 Leukocyte esterase Test strip Ql (U) Negative Negative [facility] Work Phone: Urine pHon 01-08-2022 pH (U) 6.0 [pH] [facility] Work Phone: Urine sediment bacteria coun t by microscopy (number/high power field)on 01-08-2022 Bacteria LM.HPF (Urine sed) [#/Area] 0 /[HPF] None Seen [facility] Work Phone: Urine specific gravity measu rementon 01-08-2022 Specific gravity (U) [Rel density] 1.015 [facility] Work Phone: Urobilinogen Auto test strip Ql (U)on 01-08-2022 Urobilinogen Ql (U) Normal mg/dl Normal [facility] Work Phone: Absolute lymphocyte counton 01-04-2022 Lymphocytes Auto (Unsp spec) [#/Vol] 1.29 10*3/uL 0.83-4.51 [facility] Work Phone: Basophil percentageon 2021 Basophils/100 WBC (Bld) 0.1 % 0-1 [facility] Work Phone: Chloride [Moles/Vol] 103 mmol/L 98-107 [facility] Work Phone: Eosinophils/100 WBC (Bld) 0.1 % 0-5 [facility] Work Phone: Glucose [Mass/Vol] 228 mg/dL 74-106 [facility] Work Phone: Comment on above: Glucose result great er than or equal to 200 mg/dLsuggests DIABETES MELLITUS per A.D.A. criteria. Neutrophils (Bld) [#/Vol] 10.0 10*3/uL 2.0-7.7 [facility] Work Phone: Neutrophils/100 WBC (Bld) 78.8 % 47-70 [facility] Work Phone: Potassium [Moles/Vol] 4.3 mmol/L 3.5-5.1 [facility] Work Phone: Sodium [Moles/Vol] 137 mmol/L 136-145 [facility] Work Phone: WBC (Bld) [#/Vol] 12.7 10*3/uL 4.4-11.0 [facility] Work Phone: Blood erythrocytes count (nu mber/volume)on 01-04-2022 RBC (Bld) [#/Vol] 5.10 10*6/uL 4.6-6.2 [facility] Work Phone: Blood hemoglobin measurement (mass/volume)on 01-04-2022 Hemoglobin (Bld) [Mass/Vol] 15.7 g/dL 13.0-16.5 [facility] Work Phone: Blood lymphocytes/100 leukoc yteson 01-04-2022 Lymphocytes/100 WBC (Bld) 10.1 % 19-41 [facility] Work Phone: Blood monocytes/100 leukocyt eson 01-04-2022 Monocytes/100 WBC (Bld) 10.3 % 0-10 [facility] Work Phone: Blood platelet mean volumeon 01-04-2022 Platelet mean volume (Bld) [Entitic vol] 10.1 fL 6.2-12.0 [facility] Work Phone: Determination of erythrocyte mean corpuscular volume (MCV)on 01-04-2022 MCV (RBC) [Entitic vol] 89.4 fL 80-94 [facility] Work Phone: Glucose Glucometer (BldC) [M ass/Vol]on 01-04-2022 Glucose [Mass/Vol] 433 mg/dL 74-106 [facility] Work Phone: Comment on above: MANAGEMENT OF PATIEN T CARE PER NURSING PROTOCOL Hematocrit Auto (Bld) [Volum e fraction]on 01-04-2022 Hematocrit (Bld) [Volume fraction] 45.6 % 40-54 [facility] Work Phone: Laboratory - Chemistry and C hemistry - challengeon 01-04-2022 CO2 [Moles/Vol] 27.0 mmol/L 21.0-32.0 [facility] Work Phone: Urea nitrogen/Creatinine [Mass ratio] 30.5 mg/mg 10-20 [facility] Work Phone: Laboratory - Hematology and Cell countson 01-04-2022 Erythrocyte distribution width (RBC) [Entitic vol] 40.7 fL 35.1-43.9 [facility] Work Phone: Erythrocyte distribution width (RBC) [Ratio] 12.3 % 11.6-14.6 [facility] Work Phone: Immature granulocytes/100 WBC (Bld) 0.600 % 0.0-0.9 [facility] Work Phone: Comment on above: IG% - Immature Granu locytes (promyelocytes, myelocytes and metamyelocytes) > 1% indicates that a LEFT SHIFT is Present. MCH (RBC) [Entitic mass] 30.8 pg 27.0-32.0 [facility] Work Phone: Nucleated RBC/100 WBC (Bld) [Ratio] 0 % 0-5 [facility] Work Phone: MCHC Auto (RBC) [Mass/Vol]on 01-04-2022 MCHC (RBC) [Mass/Vol] 34.4 g/dL 32-36 [facility] Work Phone: No Panel Informationon 01-04 Estimated Creatinine Clearance Calc 51.28 ml/min [facility] Work Phone: [phone] Estimated GFR (MDRD) Amer 69 mL/min >60 [facility] Work Phone: Comment on above: GFR Calc Estimated GFR (MDRD) Non-Af Amer 57 mL/min >60 [facility] Work Phone: Comment on above: Non- GFR Calc Platelets bldon 01-04-2022 Platelets (Bld) [#/Vol] 321 10*3/uL 150-450 [facility] Work Phone: Serum or plasma calcium makeda urement (mass/volume)on 01-04-2022 Calcium [Mass/Vol] 9.0 mg/dL 8.5-10.1 [facility] Work Phone: [phone] Serum or plasma creatinine m easurement (mass/volume)on 01-04-2022 Creatinine [Mass/Vol] 1.31 mg/dL 0.70-1.30 [facility] Work Phone: Comment on above: The validity of the calculated GFR & GFRAA in patients over 70 years has not been determined. Clinical correlation is essential. Serum or plasma urea nitroge n measurement (mass/volume)on 01-04-2022 Urea nitrogen [Mass/Vol] 40 mg/dL 7-18 [facility] Work Phone: Thin prep Papanicolaou smear with manual screeningon 01-04-2022 Thin prep Papanicolaou smear with manual screening 7 5-15 [facility] Work Phone: Whole blood hemoglobin A1c/t otal hemoglobin ratio (mass fraction)on 01-03-2022 HbA1c (Bld) [Mass fraction] 11.0 % 3.8-5.6 [facility] Work Phone: Comment on above: Normal < 5.7 % Predi abetic 5.7 - 6.4 % Diabetic >or= 6.5 % Please note range changes. Absolute lymphocyte counton 01-02-2022 Lymphocytes Auto (Unsp spec) [#/Vol] 1.87 10*3/uL 0.83-4.51 [facility] Work Phone: Basophil percentageon 2021 Lactate [Moles/Vol] 1.5 mmol/L 0.4-2.0 [facility] Work Phone: Basophil percentage 0 SEEN /hpf [facility] Work Phone: Basophils/100 WBC (Bld) 0.2 % 0-1 [facility] Work Phone: Bilirubin [Mass/Vol] 0.70 mg/dL 0.20-1.00 [facility] Work Phone: Comment on above: For patients on eltr ombopag therapy, use of Dimension Maramec TBIL is not recommended. Chloride [Moles/Vol] 91 mmol/L 98-107 [facility] Work Phone: Eosinophils/100 WBC (Bld) 0.0 % 0-5 [facility] Work Phone: Glucose [Mass/Vol] 500 mg/dL 74-106 [facility] Work Phone: Comment on above: Critical Result(s) C alled at: 07:58:34 01/02/2022 by: Frank Silva RN (ER). Results read back by same.Glucose result greater than or equal to 200 mg/dLsuggests DIABETES MELLITUS per A.D.A. criteria. Lactate [Moles/Vol] 3.8 mmol/L 0.4-2.0 [facility] Work Phone: Comment on above: Critical Result(s) C alled at: 08:00:34 01/02/2022 by: Frank Silva RN (ER). Results read back by same. Neutrophils (Bld) [#/Vol] 13.3 10*3/uL 2.0-7.7 [facility] Work Phone: Neutrophils/100 WBC (Bld) 80.2 % 47-70 [facility] Work Phone: Potassium [Moles/Vol] 5.5 mmol/L 3.5-5.1 [facility] Work Phone: Protein [Mass/Vol] 8.9 g/dL 6.4-8.2 [facility] Work Phone: Sodium [Moles/Vol] 130 mmol/L 136-145 [facility] Work Phone: WBC (Bld) [#/Vol] 16.6 10*3/uL 4.4-11.0 [facility] Work Phone: Bilirubin Test strip Ql (U)o n 01-02-2022 Bilirubin Ql (U) Negative Negative [facility] Work Phone: [phone] Blood erythrocytes count (nu mber/volume)on 01-02-2022 RBC (Bld) [#/Vol] 5.53 10*6/uL 4.6-6.2 [facility] Work Phone: Blood hemoglobin measurement (mass/volume)on 01-02-2022 Hemoglobin (Bld) [Mass/Vol] 17.3 g/dL 13.0-16.5 [facility] Work Phone: Blood lymphocytes/100 leukoc yteson 01-02-2022 Lymphocytes/100 WBC (Bld) 11.3 % 19-41 [facility] Work Phone: Blood monocytes/100 leukocyt eson 01-02-2022 Monocytes/100 WBC (Bld) 7.6 % 0-10 [facility] Work Phone: Blood platelet mean volumeon 01-02-2022 Platelet mean volume (Bld) [Entitic vol] 10.0 fL 6.2-12.0 [facility] Work Phone: Determination of erythrocyte mean corpuscular volume (MCV)on 01-02-2022 MCV (RBC) [Entitic vol] 88.8 fL 80-94 [facility] Work Phone: Glucose Glucometer (BldC) [M ass/Vol]on 01-02-2022 Glucose [Mass/Vol] 334 mg/dL 74-106 [facility] Work Phone: Comment on above: MANAGEMENT OF PATIEN T CARE PER NURSING PROTOCOL HCO3 (BldA) [Moles/Vol]on HCO3 (Bld) [Moles/Vol] 22 mmol/L 22-26 [facility] Work Phone: Hematocrit Auto (Bld) [Volum e fraction]on 01-02-2022 Hematocrit (Bld) [Volume fraction] 49.1 % 40-54 [facility] Work Phone: Ketones Test strip Ql (U)on 01-02-2022 Ketones Ql (U) 15 mg/dl Negative [facility] Work Phone: Laboratory - Chemistry and C hemistry - challengeon 01-02-2022 CO2 [Moles/Vol] 23 mmol/L 23-33 [facility] Work Phone: ALP [Catalytic activity/Vol] 77 U/L 45-117 [facility] Work Phone: ALT [Catalytic activity/Vol] 52 U/L 16-61 [facility] Work Phone: [phone] CO2 [Moles/Vol] 24.0 mmol/L 21.0-32.0 [facility] Work Phone: [phone] Globulin (S) [Mass/Vol] 4.5 g/dL 2.2-4.2 [facility] Work Phone: [phone] Urea nitrogen/Creatinine [Mass ratio] 37.3 mg/mg 10-20 [facility] Work Phone: [phone] Laboratory - Hematology and Cell countson 01-02-2022 Erythrocyte distribution width (RBC) [Entitic vol] 40.9 fL 35.1-43.9 [facility] Work Phone: [phone] Erythrocyte distribution width (RBC) [Ratio] 12.5 % 11.6-14.6 [facility] Work Phone: [phone] Immature granulocytes/100 WBC (Bld) 0.700 % 0.0-0.9 [facility] Work Phone: [phone] Comment on above: IG% - Immature Granu locytes (promyelocytes, myelocytes and metamyelocytes) > 1% indicates that a LEFT SHIFT is Present. MCH (RBC) [Entitic mass] 31.3 pg 27.0-32.0 [facility] Work Phone: [phone] Nucleated RBC/100 WBC (Bld) [Ratio] 0 % 0-5 [facility] Work Phone: [phone] Laboratory - Microbiology an d Antimicrobial susceptibilityon 01-02-2022 Bacteria identified Cx Nom (Bld) No growth in 5 days. [facility] Work Phone: [phone] MCHC Auto (RBC) [Mass/Vol]on 01-02-2022 MCHC (RBC) [Mass/Vol] 35.2 g/dL 32-36 [facility] Work Phone: [phone] Mucus LM Ql (Urine sed)on Mucus Ql (Urine sed) 0 SEEN /hpf [facility] Work Phone: [phone] Nitrite Test strip Ql (U)on 01-02-2022 Nitrite Ql (U) Negative Negative [facility] Work Phone: No Panel Informationon 01-02 Bed Mix Venous Bld PCO2 at Pat Temp 35.3 mmHg 41-51 [facility] Work Phone: Blood Gas Specimen Type JUDY [facility] Work Phone: [phone] Venous Blood Base Excess -3 mmol/L -1.0-3.5 [facility] Work Phone: [phone] SARS-CoV-2 & FLU Antigen (Rapid) [facility] Work Phone: [phone] Estimated Creatinine Clearance Calc 33.64 ml/min [facility] Work Phone: Estimated GFR (MDRD) Amer 42 mL/min >60 [facility] Work Phone: Comment on above: GFR Calc Estimated GFR (MDRD) Non-Af Amer 34 mL/min >60 [facility] Work Phone: Comment on above: Non- GFR Calc Troponin I High Sensitivity 7 pg/mL 3.0-78.0 [facility] Work Phone: Comment on above: Please Note: New Lynette t Units and Gender Specific Reference Ranges. For more information see Policy Stat Procedure [place] High Sensitivity Troponin (TNIH) and attachments. PO2 venouson 01-02-2022 Oxygen (BldV) [Partial pressure] 25 mm[Hg] 25-40 [facility] Work Phone: Platelets bldon 01-02-2022 Platelets (Bld) [#/Vol] 417 10*3/uL 150-450 [facility] Work Phone: [phone] Protein Test strip Ql (U)on 01-02-2022 Protein Ql (U) 15 mg/dl Negative [facility] Work Phone: [phone] Serum or plasma acetone makeda urement (mass/volume)on 01-02-2022 Acetone [Mass/Vol] Negative NEG [facility] Work Phone: [phone] Serum or plasma albumin makeda urement (mass/volume)on 01-02-2022 Albumin [Mass/Vol] 4.4 g/dL 3.2-5.0 [facility] Work Phone: Serum or plasma albumin/glob ulin mass ratioon 01-02-2022 Albumin/Globulin [Mass ratio] 1.0 {ratio} 0.9-2.4 [facility] Work Phone: Serum or plasma calcium makeda urement (mass/volume)on 01-02-2022 Calcium [Mass/Vol] 11.1 mg/dL 8.5-10.1 [facility] Work Phone: Serum or plasma creatinine m easurement (mass/volume)on 01-02-2022 Creatinine [Mass/Vol] 2.04 mg/dL 0.70-1.30 [facility] Work Phone: Comment on above: The validity of the calculated GFR & GFRAA in patients over 70 years has not been determined. Clinical correlation is essential. Serum or plasma urea nitroge n measurement (mass/volume)on 01-02-2022 Urea nitrogen [Mass/Vol] 76 mg/dL 7-18 [facility] Work Phone: Squamous epithelial cells de tection in urine sediment by light microscopyon 01-02-2022 Epithelial cells.squamous LM Ql (Urine sed) 0-5 SEEN /hpf [facility] Work Phone: Thin prep Papanicolaou smear with manual screeningon 01-02-2022 Thin prep Papanicolaou smear with manual screening 14 U/L 15-37 [facility] Work Phone: [phone] Thin prep Papanicolaou smear with manual screening 15 5-15 [facility] Work Phone: Urine blood detectionon 12-15 RBC Ql (U) Negative Negative [facility] Work Phone: RBC Ql (U) 0 SEEN /hpf [facility] Work Phone: Urine clarityon 01-02-2022 Clarity (U) Sl. Cloudy Clear [facility] Work Phone: Urine color determinationon 01-02-2022 Color (U) Yellow Yellow [facility] Work Phone: Urine glucose detectionon Glucose Ql (U) 1000 mg/dl Normal [facility] Work Phone: [phone] Urine leukocyte esterase det ection by dipstickon 01-02-2022 Leukocyte esterase Test strip Ql (U) Negative Negative [facility] Work Phone: Urine pHon 01-02-2022 pH (U) 6.0 [pH] [facility] Work Phone: Urine sediment bacteria coun t by microscopy (number/high power field)on 01-02-2022 Bacteria LM.HPF (Urine sed) [#/Area] 0 /[HPF] None Seen [facility] Work Phone: Urine specific gravity measu rementon 01-02-2022 Specific gravity (U) [Rel density] 1.015 [facility] Work Phone: Urobilinogen Auto test strip Ql (U)on 01-02-2022 Urobilinogen Ql (U) Normal mg/dl Normal [facility] Work Phone: Vital signson 01-02-2022 Oxygen saturation in Blood 45 % 50-70 [facility] Work Phone: pH measurementon 01-02-2022 pH (Unsp spec) 7.39 [pH] 7.32-7.42 [facility] Work Phone: CNTHERAPYon 12-28-2021 CNTHERAPY OT/PT/Speech Visit (PTWS) COLEMAN DAVIES ([id number]) 1950 M Date Time Provider Department 12/28/21 11:00 AM MARIA ELENA ZHONG PTWS Date Time Provider Department Center 12/28/2021 11:00 AM [id number] ELENA ZHONG PTWS [facility] Reason for Visit: PT Esteban [[id number]] 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] Allergies As of Date: 12/28/2021 (Not on File) Date Reviewed: Never Reviewed Letter Text Normal [facility] Clinical Summary: Irish eddie 12-27-2021 MC75 OP Visit Invalid Interpretation Code [facility] Work Phone: Office Visit: - visi t with practice, Rm: 42on 12-27-2021 NEGATED: Highlighted rowMRI (magnetic resonance imaging) history of the right shoulder on 03/07/2020 at [facility] [place] Invalid Interpretation Code [facility] Work Phone: NEGATED: Highlighted Kaci smoking status Tobacco smoking status Invalid Interpretation Code [facility] Work Phone: No Panel Informationon 09-04 Hepatitis B Surface Antibody Non-Reactive [facility] Work Phone: Comment on above: Non Reactive: Incons istent with immunity less than <10 mIU/mL Reactive: Consistent with immunity greater than or equal to 10 mIU/mL Rubella IgG Antibody Reactive Nonreactive [facility] Work Phone: Comment on above: Antibody Results Int erpretation of Immune Status Non Reactive Presumed Non-Immune Equivocal Equivocal Reactive Presumed Immune Serum Varicella zoster virus IgG antibody assay by immunoassay (units/volume)on 09-04-2021 VZV IgG IA Qn (S) > 4000 index Immune >165 [facility] Work Phone: Comment on above: Negative <135 Equivo elder 135 - 165 Positive >165A positive result generally indicates exposure to thepathogen or administration of specific immunoglobulins,but it is not indication of active infection or stageof disease. Serum measles virus IgG anti body assay (units/volume)on 09-04-2021 MeV IgG Qn (S) 113.0 AU/mL Immune >16.4 [facility] Work Phone: Comment on above: Negative <13.5 Equiv ocal 13.5 - 16.4 Positive >16.4Presence of antibodies to Rubeola is presumptive evidenceof immunity except when acute infection is suspected.Performed at: [address] [id number] Director: Ciaran Sethi PhD, Phone: [phone] Serum mumps virus IgG antibo dy assay (units/volume)on 09-04-2021 MuV IgG Qn (S) < 9.0 AU/mL Immune >10.9 [facility] Work Phone: Comment on above: Negative <9.0 Equivo elder 9.0 - 10.9 Positive >10.9A positive result generally indicates past exposure toMumps virus or previous vaccination. Vital Signs Date Time Vital Sign Value Performing Clinician Facility 07-21-2025 09:29-0500 Body height 182.[address] Briseyda Sinclair MD Work Phone: [facility] 07-21-2025 09:29-0500 Body mass index (BMI) [Ratio] 22.8 kg/m2 Dr. Briseyda Sinclair MD Work Phone: [facility] 07-21-2025 09:29-0500 Body temperature 98 [degF] Dr. Briseyda Sinclair MD Work Phone: [facility] 07-21-2025 09:29-0500 Body weight 76.[address] Briseyda Sinclair MD Work Phone: [facility] 07-21-2025 09:29-0500 Diastolic blood pressure 65 mm[Hg] Dr. Briseyda Sinclair MD Work Phone: [facility] 07-21-2025 09:29-0500 Heart rate 70 /min Dr. Briseyda Sinclair MD Work Phone: [facility] 07-21-2025 09:29-0500 Respiratory rate 16 /min Dr. Briseyda Sinclair MD Work Phone: [facility] 07-21-2025 09:29-0500 SaO2% (BldA) [Mass fraction] 98 % Dr. Briseyda Sinclair MD Work Phone: [facility] 07-21-2025 09:29-0500 Systolic blood pressure 115 mm[Hg] Dr. Briseyda Sinclair MD Work Phone: [facility] 07-07-2025 11:32-0400 Body height 182.[address] Briseyda Sinclair MD Work Phone: [facility] 07-07-2025 11:32-0400 Body weight 74.[address] Briseyda Sinclair MD Work Phone: [facility] 06-21-2025 07:58-0400 Body height 182.[address] Briseyda Sinclair MD Work Phone: [facility] 06-21-2025 07:58-0400 Body mass index (BMI) [Ratio] 20.6 kg/m2 Dr. Briseyda Sinclair MD Work Phone: [facility] 06-21-2025 07:58-0400 Body temperature 98 [degF] Dr. Briseyda Sinclair MD Work Phone: [facility] 06-21-2025 07:58-0400 Body weight [address] Briseyda Sinclair MD Work Phone: [facility] 06-21-2025 07:58-0400 Diastolic blood pressure 53 mm[Hg] Dr. Briseyda Sinclair MD Work Phone: [facility] 06-21-2025 07:58-0400 Heart rate 70 /min Dr. Briseyda Sinclair MD Work Phone: [facility] 06-21-2025 07:58-0400 Respiratory rate 16 /min Dr. Briseyda Sinclair MD Work Phone: [facility] 06-21-2025 07:58-0400 SaO2% (BldA) [Mass fraction] 95 % Dr. Briseyda Sinclair MD Work Phone: [facility] 06-21-2025 07:58-0400 Systolic blood pressure 93 mm[Hg] Dr. Briseyda Sinclair MD Work Phone: [facility] 06-15-2025 14:03-0400 Body temperature 97.9 [degF] Dr. Briseyda Sinclair MD Work Phone: [facility] 06-15-2025 14:03-0400 Diastolic blood pressure 57 mm[Hg] Dr. Briseyda Sinclair MD Work Phone: [facility] 06-15-2025 14:03-0400 Heart rate 76 /min Dr. Briseyda Sinclair MD Work Phone: [facility] 06-15-2025 14:03-0400 Respiratory rate 14 /min Dr. Briseyda Sinclair MD Work Phone: [facility] 06-15-2025 14:03-0400 SaO2% (BldA) [Mass fraction] 100 % Dr. Briseyda Sinclair MD Work Phone: [facility] 06-15-2025 14:03-0400 Systolic blood pressure 122 mm[Hg] Dr. Briseyda Sinclair MD Work Phone: [facility] 06-15-2025 10:00-0400 Inhaled oxygen flow rate 2 L/min Dr. Briseyda Sinclair MD Work Phone: [facility] 06-15-2025 03:15-0400 Body mass index (BMI) [Ratio] 22.4 kg/m2 Dr. Briseyda Sinclair MD Work Phone: [facility] 06-15-2025 03:15-0400 Body weight 75.[address] Briseyda Sinclair MD Work Phone: [facility] 06-14-2025 15:40-0400 Body height 182.[address] Briseyda Sinclair MD Work Phone: [facility] 05-12-2025 15:32-0400 Body temperature 98.2 [degF] Dr. Briseyda Sinclair MD Work Phone: [facility] 05-12-2025 15:32-0400 Body weight 74.[address] Briseyda Sinclair MD Work Phone: [facility] 05-12-2025 15:32-0400 Diastolic blood pressure 71 mm[Hg] Dr. Briseyda Sinclair MD Work Phone: [facility] 05-12-2025 15:32-0400 Heart rate 79 /min Dr. Briseyda Sinclair MD Work Phone: [facility] 05-12-2025 15:32-0400 Respiratory rate 18 /min Dr. Briseyda Sinclair MD Work Phone: [facility] 05-12-2025 15:32-0400 SaO2% (BldA) [Mass fraction] 100 % Dr. Briseyda Sinclair MD Work Phone: [facility] 05-12-2025 15:32-0400 Systolic blood pressure 144 mm[Hg] Dr. Briseyda Sinclair MD Work Phone: [facility] 05-03-2025 13:52-0400 Body height 182.[address] Briseyda Sinclair MD Work Phone: [facility] 05-03-2025 13:52-0400 Body mass index (BMI) [Ratio] 22.2 kg/m2 Dr. Briseyda Sinclair MD Work Phone: [facility] 05-03-2025 13:52-0400 Body temperature 98 [degF] Dr. Briseyda Sinclair MD Work Phone: [facility] 05-03-2025 13:52-0400 Body weight 74.[address] Briseyda Sinclair MD Work Phone: [facility] 05-03-2025 13:52-0400 Diastolic blood pressure 64 mm[Hg] Dr. Briseyda Sinclair MD Work Phone: [facility] 05-03-2025 13:52-0400 Heart rate 76 /min Dr. Briseyda Sinclair MD Work Phone: [facility] 05-03-2025 13:52-0400 Respiratory rate 16 /min Dr. Briseyda Sinclair MD Work Phone: [facility] 05-03-2025 13:52-0400 SaO2% (BldA) [Mass fraction] 98 % Dr. Briseyda Sinclair MD Work Phone: [facility] 05-03-2025 13:52-0400 Systolic blood pressure 135 mm[Hg] Dr. Briseyda Sinclair MD Work Phone: [facility] 04-28-2025 14:10-0400 Body height 182.[address] Briseyda Sinclair MD Work Phone: [facility] 04-28-2025 14:10-0400 Body mass index (BMI) [Ratio] 22.1 kg/m2 Dr. Briseyda Sinclair MD Work Phone: [facility] 04-28-2025 14:10-0400 Body weight 73.[address] Briseyda Sinclair MD Work Phone: [facility] 04-28-2025 14:10-0400 Diastolic blood pressure 60 mm[Hg] Dr. Briseyda Sinclair MD Work Phone: [facility] 04-28-2025 14:10-0400 Heart rate 79 /min Dr. Briseyda Sinclair MD Work Phone: [facility] 04-28-2025 14:10-0400 Inhaled oxygen flow rate 95 L/min Dr. Briseyda Sinclair MD Work Phone: [facility] 04-28-2025 14:10-0400 Respiratory rate 18 /min Dr. Briseyda Sinclair MD Work Phone: [facility] 04-28-2025 14:10-0400 Systolic blood pressure 96 mm[Hg] Dr. Briseyda Sinclair MD Work Phone: [facility] 04-12-2025 12:59-0400 Body height 182.[address] Briseyda Sinclair MD Work Phone: [facility] 04-12-2025 12:59-0400 Body mass index (BMI) [Ratio] 22.1 kg/m2 Dr. Briseyda Sinclair MD Work Phone: [facility] 04-12-2025 12:59-0400 Body temperature 98.2 [degF] Dr. Briseyda Sinclair MD Work Phone: [facility] 04-12-2025 12:59-0400 Body weight 74.[address] Briseyda Sinclair MD Work Phone: [facility] 04-12-2025 12:59-0400 Diastolic blood pressure 74 mm[Hg] Dr. Briseyda Sinclair MD Work Phone: [facility] 04-12-2025 12:59-0400 Heart rate 87 /min Dr. Briseyda Sinclair MD Work Phone: [facility] 04-12-2025 12:59-0400 Respiratory rate 16 /min Dr. Briseyda Sinclair MD Work Phone: [facility] 04-12-2025 12:59-0400 SaO2% (BldA) [Mass fraction] 87 % Dr. Briseyda Sinclair MD Work Phone: [facility] 04-12-2025 12:59-0400 Systolic blood pressure 124 mm[Hg] Dr. Briseyda Sinclair MD Work Phone: [facility] 03-29-2025 10:16-0400 Body temperature 97.8 [degF] Dr. Briseyda Sinclair MD Work Phone: [facility] 03-29-2025 10:16-0400 Diastolic blood pressure 73 mm[Hg] Dr. Briseyda Sinclair MD Work Phone: [facility] 03-29-2025 10:16-0400 Heart rate 75 /min Dr. Briseyda Sinclair MD Work Phone: [facility] 03-29-2025 10:16-0400 Respiratory rate 14 /min Dr. Briseyda Sinclair MD Work Phone: [facility] 03-29-2025 10:16-0400 SaO2% (BldA) [Mass fraction] 98 % Dr. Briseyda Sinclair MD Work Phone: [facility] 03-29-2025 10:16-0400 Systolic blood pressure 151 mm[Hg] Dr. Briseyda Sinclair MD Work Phone: [facility] 03-29-2025 06:20-0400 Body height 182.[address] Briseyda Sinclair MD Work Phone: [facility] 03-29-2025 06:20-0400 Body mass index (BMI) [Ratio] 21.6 kg/m2 Dr. Briseyda Sinclair MD Work Phone: [facility] 03-29-2025 06:20-0400 Body weight 72.[address] Briseyda Sinclair MD Work Phone: [facility] 03-04-2025 12:24-0400 Body temperature 97.81 [degF] Simba Blackman MD Work Phone: [facility] 03-04-2025 12:24-0400 Body weight 75.66 kg Simba Blackman MD Work Phone: [facility] 03-04-2025 12:24-0400 Diastolic blood pressure 69 mm[Hg] Simba Blackman MD Work Phone: [facility] 03-04-2025 12:24-0400 Heart rate 80 /min Simba Blackman MD Work Phone: [facility] 03-04-2025 12:24-0400 Systolic blood pressure 121 mm[Hg] Simba Blackman MD Work Phone: [facility] 02-11-2025 13:27-0400 Body height 182.[address] Briseyda Sinclair MD Work Phone: [facility] 02-11-2025 13:27-0400 Body mass index (BMI) [Ratio] 23.1 kg/m2 Dr. Briseyda Sinclair MD Work Phone: [facility] 02-11-2025 13:27-0400 Body temperature 98.2 [degF] Dr. Briseyda Sinclair MD Work Phone: [facility] 02-11-2025 13:27-0400 Body weight 77.[address] Briseyda Sinclair MD Work Phone: [facility] 02-11-2025 13:27-0400 Diastolic blood pressure 67 mm[Hg] Dr. Briseyda Sinclair MD Work Phone: [facility] 02-11-2025 13:27-0400 Heart rate 82 /min Dr. Briseyda Sinclair MD Work Phone: [facility] 02-11-2025 13:27-0400 Respiratory rate 15 /min Dr. Briseyda Sinclair MD Work Phone: [facility] 02-11-2025 13:27-0400 SaO2% (BldA) [Mass fraction] 98 % Dr. Briseyda Sinclair MD Work Phone: [facility] 02-11-2025 13:27-0400 Systolic blood pressure 126 mm[Hg] Dr. Briseyda Sinclair MD Work Phone: [facility] 02-06-2025 11:42-0400 Body mass index (BMI) [Ratio] 22.5 kg/m2 Dr. Briseyda Sinclair MD Work Phone: [facility] 02-06-2025 11:42-0400 Body temperature 98.6 [degF] Dr. Briseyda Sinclair MD Work Phone: [facility] 02-06-2025 11:42-0400 Body weight 75.[address] Briseyda Sinclair MD Work Phone: [facility] 02-06-2025 11:42-0400 Diastolic blood pressure 80 mm[Hg] Dr. Briseyda Sinclair MD Work Phone: [facility] 02-06-2025 11:42-0400 Heart rate 74 /min Dr. Briseyda Sinclair MD Work Phone: [facility] 02-06-2025 11:42-0400 Respiratory rate 16 /min Dr. Briseyda Sinclair MD Work Phone: [facility] 02-06-2025 11:42-0400 SaO2% (BldA) [Mass fraction] 98 % Dr. Briseyda Sinclair MD Work Phone: [facility] 02-06-2025 11:42-0400 Systolic blood pressure 124 mm[Hg] Dr. Briseyda Sinclair MD Work Phone: [facility] 02-01-2025 13:49-0400 Body height 182.[address] Briseyda Sinclair MD Work Phone: [facility] 02-01-2025 13:49-0400 Body mass index (BMI) [Ratio] 22.8 kg/m2 Dr. Briseyda Sinclair MD Work Phone: [facility] 02-01-2025 13:49-0400 Body temperature 98.6 [degF] Dr. Briseyda Sinclair MD Work Phone: [facility] 02-01-2025 13:49-0400 Body weight 76.[address] Briseyda Sinclair MD Work Phone: [facility] 02-01-2025 13:49-0400 Diastolic blood pressure 72 mm[Hg] Dr. Briseyda Sinclair MD Work Phone: [facility] 02-01-2025 13:49-0400 Heart rate 78 /min Dr. Briseyda Sinclair MD Work Phone: [facility] 02-01-2025 13:49-0400 Respiratory rate 16 /min Dr. Briseyda Sinclair MD Work Phone: [facility] 02-01-2025 13:49-0400 SaO2% (BldA) [Mass fraction] 98 % Dr. Briseyda Sinclair MD Work Phone: [facility] 02-01-2025 13:49-0400 Systolic blood pressure 138 mm[Hg] Dr. Briseyda Sinclair MD Work Phone: [facility] 01-27-2025 14:53-0400 Body height 182.[address] Briseyda Sinclair MD Work Phone: [facility] 01-27-2025 14:53-0400 Body mass index (BMI) [Ratio] 23.1 kg/m2 Dr. Briseyda Sinclair MD Work Phone: [facility] 01-27-2025 14:53-0400 Body temperature 98.4 [degF] Dr. Briseyda Sinclair MD Work Phone: [facility] 01-27-2025 14:53-0400 Body weight 77.[address] Briseyda Sinclair MD Work Phone: [facility] 01-27-2025 14:53-0400 Diastolic blood pressure 61 mm[Hg] Dr. Briseyda Sinclair MD Work Phone: [facility] 01-27-2025 14:53-0400 Heart rate 75 /min Dr. Briseyda Sinclair MD Work Phone: [facility] 01-27-2025 14:53-0400 Respiratory rate 16 /min Dr. Brisedya Sinclair MD Work Phone: [facility] 01-27-2025 14:53-0400 SaO2% (BldA) [Mass fraction] 96 % Dr. Briseyda Sinclair MD Work Phone: [facility] 01-27-2025 14:53-0400 Systolic blood pressure 115 mm[Hg] Dr. Briseyda Sinclair MD Work Phone: [facility] 01-14-2025 11:50-0400 Body temperature 97.7 [degF] Dr. Briseyda Sinclair MD Work Phone: [facility] 01-14-2025 11:50-0400 Diastolic blood pressure 71 mm[Hg] Dr. Briseyda Sinclair MD Work Phone: [facility] 01-14-2025 11:50-0400 Heart rate 81 /min Dr. Briseyda Sinclair MD Work Phone: [facility] 01-14-2025 11:50-0400 Respiratory rate 16 /min Dr. Briseyda Sinclair MD Work Phone: [facility] 01-14-2025 11:50-0400 SaO2% (BldA) [Mass fraction] 96 % Dr. Briseyda Sinclair MD Work Phone: [facility] 01-14-2025 11:50-0400 Systolic blood pressure 150 mm[Hg] Dr. Briseyda Sinclair MD Work Phone: [facility] 01-14-2025 00:39-0400 Body mass index (BMI) [Ratio] 21.6 kg/m2 Dr. Briseyda Sinclair MD Work Phone: [facility] 01-13-2025 15:51-0400 Body weight 72.[address] Briseyda Sinclair MD Work Phone: [facility] 11-09-2024 13:21-0500 Body height 182.[address] Briseyda Sinclair MD Work Phone: [facility] 11-09-2024 13:21-0500 Body mass index (BMI) [Ratio] 23.4 kg/m2 Dr. Briseyda Sinclair MD Work Phone: [facility] 11-09-2024 13:21-0500 Body weight 78.[address] Briseyda Sinclair MD Work Phone: [facility] 11-09-2024 13:21-0500 Diastolic blood pressure 87 mm[Hg] Dr. Briseyda Sinclair MD Work Phone: [facility] 11-09-2024 13:21-0500 Heart rate 77 /min Dr. Briseyda Sinclair MD Work Phone: [facility] 11-09-2024 13:21-0500 Respiratory rate 16 /min Dr. Briseyda Sinclair MD Work Phone: [facility] 11-09-2024 13:21-0500 SaO2% (BldA) [Mass fraction] 96 % Dr. Briseyda Sinclair MD Work Phone: [facility] 11-09-2024 13:21-0500 Systolic blood pressure 155 mm[Hg] Dr. Briseyda Sinclair MD Work Phone: [facility] 08-20-2024 08:24-0500 Body mass index (BMI) [Ratio] 23.8 kg/m2 Dr. Briseyda Sinclair MD Work Phone: [facility] 08-20-2024 08:24-0500 Body weight 79.[address] Briseyda Sinclair MD Work Phone: [facility] 08-10-2024 13:34-0500 Body mass index (BMI) [Ratio] 23.5 kg/m2 Dr. Briseyda Sinclair MD Work Phone: [facility] 08-10-2024 13:34-0500 Body temperature 98 [degF] Dr. Briseyda Sinclair MD Work Phone: [facility] 08-10-2024 13:34-0500 Body weight 78.[address] Briseyda Sinclair MD Work Phone: [facility] 08-10-2024 13:34-0500 Diastolic blood pressure 76 mm[Hg] Dr. Briesyda Sinclair MD Work Phone: [facility] 08-10-2024 13:34-0500 Heart rate 80 /min Dr. Briseyda Sinclair MD Work Phone: [facility] 08-10-2024 13:34-0500 Respiratory rate 16 /min Dr. Briseyda Sinclair MD Work Phone: [facility] 08-10-2024 13:34-0500 SaO2% (BldA) [Mass fraction] 96 % Dr. Briseyda Sinclair MD Work Phone: [facility] 08-10-2024 13:34-0500 Systolic blood pressure 124 mm[Hg] Dr. Briseyda Sinclair MD Work Phone: [facility] 12-03-2023 07:40-0400 Body temperature 96.6 [degF] Dr. Briseyda Sinclair Work Phone: [facility] 12-03-2023 07:40-0400 Diastolic blood pressure 57 mm[Hg] Dr. Briseyda Sinclair Work Phone: [facility] 12-03-2023 07:40-0400 Heart rate 66 /min Dr. Briseyda Sinclair Work Phone: [facility] 12-03-2023 07:40-0400 Respiratory rate 18 /min Dr. Briseyda Sinclair Work Phone: [facility] 12-03-2023 07:40-0400 SaO2% (BldA) [Mass fraction] 96 % Dr. Briseyda Sinclair Work Phone: [facility] 12-03-2023 07:40-0400 Systolic blood pressure 108 mm[Hg] Dr. Briseyda Sinclair Work Phone: [facility] 12-03-2023 07:24-0400 Inhaled oxygen flow rate 2 L/min Dr. Briseyda Sinclair Work Phone: [facility] 12-03-2023 06:00-0400 Body height 182.[address] Briseyda Sinclair Work Phone: [facility] 12-03-2023 06:00-0400 Body mass index (BMI) [Ratio] 21.7 kg/m2 Dr. Briseyda Sinclair Work Phone: [facility] 12-03-2023 06:00-0400 Body weight 72.[address] Briseyda Sinclair Work Phone: [facility] 11-22-2023 13:41-0500 Body height 182.[address] Briseyda Sinclair Work Phone: [facility] 11-22-2023 13:41-0500 Body mass index (BMI) [Ratio] 23.3 kg/m2 Dr. Briseyda Sinclair Work Phone: [facility] 11-22-2023 13:41-0500 Body weight 78.[address] Briseyda Sinclair Work Phone: [facility] 11-22-2023 13:41-0500 Diastolic blood pressure 76 mm[Hg] Dr. Briseyda Sinclair Work Phone: [facility] 11-22-2023 13:41-0500 Respiratory rate 18 /min Dr. Briseyda Sinclair Work Phone: [facility] 11-22-2023 13:41-0500 Systolic blood pressure 153 mm[Hg] Dr. Briseyda Sinclair Work Phone: [facility] 10-07-2023 14:00-0500 Body mass index (BMI) [Ratio] 23.2 kg/m2 Dr. Briseyda Sinclair Work Phone: [facility] 10-07-2023 14:00-0500 Body temperature 97.8 [degF] Dr. Briseyda Sinclair Work Phone: [facility] 10-07-2023 14:00-0500 Body weight 77.[address] Briseyda Sinclair Work Phone: [facility] 10-07-2023 14:00-0500 Diastolic blood pressure 73 mm[Hg] Dr. Briseyda Sinclair Work Phone: [facility] 10-07-2023 14:00-0500 Heart rate 85 /min Dr. Briseyda Sinclair Work Phone: [facility] 10-07-2023 14:00-0500 Respiratory rate 16 /min Dr. Briseyda Sinclair Work Phone: [facility] 10-07-2023 14:00-0500 SaO2% (BldA) [Mass fraction] 97 % Dr. Briseyda Sinclair Work Phone: [facility] 10-07-2023 14:00-0500 Systolic blood pressure 121 mm[Hg] Dr. Briseyda Sinclair Work Phone: [facility] 08-29-2023 06:07-0500 Body temperature 97.8 [degF] Dr. Briseyda Sinclair Work Phone: [facility] 08-29-2023 06:07-0500 Diastolic blood pressure 85 mm[Hg] Dr. Briesyda Sinclair Work Phone: [facility] 08-29-2023 06:07-0500 Heart rate 91 /min Dr. Briseyda Sinclair Work Phone: [facility] 08-29-2023 06:07-0500 Respiratory rate 12 /min Dr. Briseyda Sinclair Work Phone: [facility] 08-29-2023 06:07-0500 SaO2% (BldA) [Mass fraction] 98 % Dr. Briseyda Sinclair Work Phone: [facility] 08-29-2023 06:07-0500 Systolic blood pressure 155 mm[Hg] Dr. Briseyda Sinclair Work Phone: [facility] 08-24-2023 07:06-0500 Body height 182.[address] Briseyda Sinclair Work Phone: [facility] 08-24-2023 07:06-0500 Body mass index (BMI) [Ratio] 21.9 kg/m2 Dr. Briseyda Sinclair Work Phone: [facility] 08-24-2023 07:06-0500 Body temperature 97.6 [degF] Dr. Briseyda Sinclair Work Phone: [facility] 08-24-2023 07:06-0500 Body weight 73.[address] Briseyda Sinclair Work Phone: [facility] 08-24-2023 07:06-0500 Diastolic blood pressure 80 mm[Hg] Dr. Briseyda Sinclair Work Phone: [facility] 08-24-2023 07:06-0500 Heart rate 83 /min Dr. Briseyda Sinclair Work Phone: [facility] 08-24-2023 07:06-0500 Respiratory rate 14 /min Dr. Briseyda Sinclair Work Phone: [facility] 08-24-2023 07:06-0500 SaO2% (BldA) [Mass fraction] 99 % Dr. Briseyda Sinclair Work Phone: [facility] 08-24-2023 07:06-0500 Systolic blood pressure 153 mm[Hg] Dr. Briseyda Sinclair Work Phone: [facility] 08-20-2023 05:44-0500 Diastolic blood pressure 71 mm[Hg] Dr. Briseyda Sinclair Work Phone: [facility] 08-20-2023 05:44-0500 Heart rate 75 /min Dr. Briseyda Sinclair Work Phone: [facility] 08-20-2023 05:44-0500 Respiratory rate 14 /min Dr. Briseyda Sinclair Work Phone: [facility] 08-20-2023 05:44-0500 SaO2% (BldA) [Mass fraction] 99 % Dr. Briseyda Sinclair Work Phone: [facility] 08-20-2023 05:44-0500 Systolic blood pressure 150 mm[Hg] Dr. Briseyda Sinclair Work Phone: [facility] 08-20-2023 03:33-0500 Body temperature 97.6 [degF] Dr. Briseyda Sinclair Work Phone: [facility] 08-20-2023 03:30-0500 Body height 182.[address] Briseyda Sinclair Work Phone: [facility] 08-20-2023 03:30-0500 Body mass index (BMI) [Ratio] 22.1 kg/m2 Dr. Briseyda Sinclair Work Phone: [facility] 08-20-2023 03:30-0500 Body weight [address] Briseyda Sinclair Work Phone: [facility] 08-13-2023 08:37-0500 Body mass index (BMI) [Ratio] 23.6 kg/m2 Dr. Briseyda Sinclair Work Phone: [facility] 08-13-2023 08:37-0500 Body temperature 98.4 [degF] Dr. Briseyda Sinclair Work Phone: [facility] 08-13-2023 08:37-0500 Body weight 78.[address] Briseyda Sinclair Work Phone: [facility] 08-13-2023 08:37-0500 Diastolic blood pressure 76 mm[Hg] Dr. Briseyda Sinclair Work Phone: [facility] 08-13-2023 08:37-0500 Heart rate 92 /min Dr. Briseyda Sinclair Work Phone: [facility] 08-13-2023 08:37-0500 Respiratory rate 12 /min Dr. Briseyda Sinclair Work Phone: [facility] 08-13-2023 08:37-0500 SaO2% (BldA) [Mass fraction] 96 % Dr. Briseyda Sinclari Work Phone: [facility] 08-13-2023 08:37-0500 Systolic blood pressure 154 mm[Hg] Dr. Briseyda Sinclair Work Phone: [facility] 05-22-2023 13:03-0400 Body height 182.[address] Briseyda Sinclair Work Phone: [facility] 05-22-2023 13:03-0400 Body mass index (BMI) [Ratio] 23.1 kg/m2 Dr. Briseyda Sinclair Work Phone: [facility] 05-22-2023 13:03-0400 Body weight 77.[address] Briseyda Sinclair Work Phone: [facility] 05-22-2023 13:03-0400 Diastolic blood pressure 66 mm[Hg] Dr. Briseyda Sinclair Work Phone: [facility] 05-22-2023 13:03-0400 Heart rate 77 /min Dr. Briseyda Sinclair Work Phone: [facility] 05-22-2023 13:03-0400 Respiratory rate 16 /min Dr. Briseyda Sinclair Work Phone: [facility] 05-22-2023 13:03-0400 Systolic blood pressure 106 mm[Hg] Dr. Briseyda Sinclair Work Phone: [facility] 04-01-2023 14:21-0400 Body mass index (BMI) [Ratio] 23.5 kg/m2 Dr. Briseyda Sinclair Work Phone: [facility] 04-01-2023 14:21-0400 Body temperature 98.2 [degF] Dr. Briseyda Sinclair Work Phone: [facility] 04-01-2023 14:21-0400 Body weight 78.[address] Briseyda Sinclair Work Phone: [facility] 04-01-2023 14:21-0400 Diastolic blood pressure 68 mm[Hg] Dr. Briseyda Sinclair Work Phone: [facility] 04-01-2023 14:21-0400 Heart rate 78 /min Dr. Briseyda Sinclair Work Phone: [facility] 04-01-2023 14:21-0400 Respiratory rate 16 /min Dr. Briseyda Sinclair Work Phone: [facility] 04-01-2023 14:21-0400 SaO2% (BldA) [Mass fraction] 93 % Dr. Briseyda Sinclair Work Phone: [facility] 04-01-2023 14:21-0400 Systolic blood pressure 120 mm[Hg] Dr. Briseyda Sinclair Work Phone: [facility] 03-07-2023 14:53-0400 Diastolic blood pressure 76 mm[Hg] Dr. Briseyda Sinclair Work Phone: [facility] 03-07-2023 14:53-0400 Heart rate 77 /min Dr. Briseyda Sinclair Work Phone: [facility] 03-07-2023 14:53-0400 Systolic blood pressure 133 mm[Hg] Dr. Briseyda Sinclair Work Phone: [facility] 09-24-2022 13:35-0500 Body temperature 97.8 [degF] Dr. Briseyda Sinclair Work Phone: [facility] 09-24-2022 13:35-0500 Body weight 79.[address] Briseyda Sinclair Work Phone: [facility] 09-24-2022 13:35-0500 Diastolic blood pressure 83 mm[Hg] Dr. Briseyda Sinclair Work Phone: [facility] 09-24-2022 13:35-0500 Heart rate 83 /min Dr. Briseyda Sinclair Work Phone: [facility] 09-24-2022 13:35-0500 Respiratory rate 16 /min Dr. Briseyda Sinclair Work Phone: [facility] 09-24-2022 13:35-0500 SaO2% (BldA) [Mass fraction] 98 % Dr. Briseyda Sinclair Work Phone: [facility] 09-24-2022 13:35-0500 Systolic blood pressure 131 mm[Hg] Dr. Briseyda Sinclair Work Phone: [facility] 06-01-2022 06:55-0400 Body height 182.[address] Briseyda Sinclair Work Phone: [facility] Work Phone: 06-01-2022 06:55-0400 Body weight 75.[address] Briseyda Sinclair Work Phone: [facility] Work Phone: 05-31-2022 08:01-0400 Body mass index (BMI) [Ratio] 22.6 kg/m2 Dr. Briseyda Sinclair Work Phone: [facility] Work Phone: 05-04-2022 10:06-0400 Body height 182.[address] Briseyda Sinclair Work Phone: [facility] Work Phone: 05-04-2022 10:06-0400 Body mass index (BMI) [Ratio] 22.6 kg/m2 Dr. Briseyda Sinclair Work Phone: [facility] Work Phone: 05-04-2022 10:06-0400 Body weight 75.[address] Briseyda Sinclair Work Phone: [facility] Work Phone: 05-04-2022 10:06-0400 Diastolic blood pressure 75 mm[Hg] Dr. Briseyda Sinclair Work Phone: [facility] Work Phone: 05-04-2022 10:06-0400 Heart rate 86 /min Dr. Briseyda Sinclair Work Phone: [facility] Work Phone: 05-04-2022 10:06-0400 Respiratory rate 18 /min Dr. Briseyda Sinclair Work Phone: [facility] Work Phone: 05-04-2022 10:06-0400 SaO2% (BldA) [Mass fraction] 99 % Dr. Briseyda Sinclair Work Phone: [facility] Work Phone: 05-04-2022 10:06-0400 Systolic blood pressure 119 mm[Hg] Dr. Briseyda Sinclair Work Phone: [facility] Work Phone: 03-21-2022 13:11-0400 Body mass index (BMI) [Ratio] 22.5 kg/m2 Dr. Briseyda Sinclair Work Phone: [facility] Work Phone: 03-21-2022 13:11-0400 Body weight 75.[address] Briseyda Sinclair Work Phone: [facility] Work Phone: 03-21-2022 13:11-0400 Diastolic blood pressure 68 mm[Hg] Dr. Briseyda Sinclair Work Phone: [facility] Work Phone: 03-21-2022 13:11-0400 Heart rate 88 /min Dr. Briseyda Sinclair Work Phone: [facility] Work Phone: 03-21-2022 13:11-0400 Respiratory rate 14 /min Dr. Briseyda Sinclair Work Phone: [facility] Work Phone: 03-21-2022 13:11-0400 SaO2% (BldA) [Mass fraction] 98 % Dr. Briseyda Sinclair Work Phone: [facility] Work Phone: 03-21-2022 13:11-0400 Systolic blood pressure 122 mm[Hg] Dr. Briseyda Sinclair Work Phone: [facility] Work Phone: 03-02-2022 08:31-0400 Body mass index (BMI) [Ratio] 21.7 kg/m2 Dr. Briseyda Sinclair Work Phone: [facility] Work Phone: 03-02-2022 08:31-0400 Body temperature 97.2 [degF] Dr. Briseyda Sinclair Work Phone: [facility] Work Phone: 03-02-2022 08:31-0400 Body weight 72.[address] Briseyda Sinclair Work Phone: [facility] Work Phone: 03-02-2022 08:31-0400 Diastolic blood pressure 59 mm[Hg] Dr. Briseyda Sinclair Work Phone: [facility] Work Phone: 03-02-2022 08:31-0400 Heart rate 82 /min Dr. Briseyda Sinclair Work Phone: [facility] Work Phone: 03-02-2022 08:31-0400 Respiratory rate 18 /min Dr. Briseyda Sinclair Work Phone: [facility] Work Phone: 03-02-2022 08:31-0400 SaO2% (BldA) [Mass fraction] 97 % Dr. Briseyda Sinclair Work Phone: [facility] Work Phone: 03-02-2022 08:31-0400 Systolic blood pressure 113 mm[Hg] Dr. Briseyda Sinclair Work Phone: [facility] Work Phone: 01-24-2022 08:31-0400 Body mass index (BMI) [Ratio] 21.7 kg/m2 Dr. Briseyda Sinclair Work Phone: [facility] Work Phone: 01-24-2022 08:31-0400 Body temperature 97.1 [degF] Dr. Briseyda Sinclair Work Phone: [facility] Work Phone: 01-24-2022 08:31-0400 Body weight 72.[address] Briseyda Sinclair Work Phone: [facility] Work Phone: 01-24-2022 08:31-0400 Diastolic blood pressure 66 mm[Hg] Dr. Briseyda Sinclair Work Phone: [facility] Work Phone: 01-24-2022 08:31-0400 Heart rate 90 /min Dr. Briseyda Sinclair Work Phone: [facility] Work Phone: 01-24-2022 08:31-0400 Respiratory rate 14 /min Dr. Briseyda Sinclair Work Phone: [facility] Work Phone: 01-24-2022 08:31-0400 SaO2% (BldA) [Mass fraction] 99 % Dr. Briseyda Sinclair Work Phone: [facility] Work Phone: 01-24-2022 08:31-0400 Systolic blood pressure 104 mm[Hg] Dr. Briseyda Sinclair Work Phone: [facility] Work Phone: 01-24-2022 08:31-0400 Body height 182.[address] Briseyda Sinclair Work Phone: [facility] Work Phone: 01-24-2022 08:31-0400 Body mass index (BMI) [Ratio] 21.7 kg/m2 Dr. Briseyda Sinclair Work Phone: [facility] Work Phone: 01-24-2022 08:31-0400 Body temperature 97.1 [degF] Dr. Briseyda Sinclair Work Phone: [facility] Work Phone: 01-24-2022 08:31-0400 Body weight 72.[address] Briseyda Sinclair Work Phone: [facility] Work Phone: 01-24-2022 08:31-0400 Diastolic blood pressure 66 mm[Hg] Dr. Briseyda Sinclair Work Phone: [facility] Work Phone: 01-24-2022 08:31-0400 Heart rate 90 /min Dr. Briseyda Sinclair Work Phone: [facility] Work Phone: 01-24-2022 08:31-0400 Respiratory rate 14 /min Dr. Briseyda Sinclair Work Phone: [facility] Work Phone: 01-24-2022 08:31-0400 SaO2% (BldA) [Mass fraction] 99 % Dr. Briseyda Sinclair Work Phone: [facility] Work Phone: 01-24-2022 08:31-0400 Systolic blood pressure 104 mm[Hg] Dr. Briseyda Sinclair Work Phone: [facility] Work Phone: 01-10-2022 11:25-0400 Body mass index (BMI) [Ratio] 21.1 kg/m2 Dr. Briseyda Sinclair Work Phone: [facility] Work Phone: 01-10-2022 11:25-0400 Body temperature 97.3 [degF] Dr. Briseyda Sinclair Work Phone: [facility] Work Phone: 01-10-2022 11:25-0400 Body weight 70.[address] Briseyda Sinclair Work Phone: [facility] Work Phone: 01-10-2022 11:25-0400 Diastolic blood pressure 68 mm[Hg] Dr. Briseyda Sinclair Work Phone: [facility] Work Phone: 01-10-2022 11:25-0400 Heart rate 92 /min Dr. Briseyda Sinclair Work Phone: [facility] Work Phone: 01-10-2022 11:25-0400 Respiratory rate 14 /min Dr. Briseyda Sinclair Work Phone: [facility] Work Phone: 01-10-2022 11:25-0400 SaO2% (BldA) [Mass fraction] 95 % Dr. Briseyda Sinclair Work Phone: [facility] Work Phone: 01-10-2022 11:25-0400 Systolic blood pressure 104 mm[Hg] Dr. Briseyda Sinclair Work Phone: [facility] Work Phone: 01-08-2022 12:30-0400 Diastolic blood pressure 84 mm[Hg] Dr. Briseyda Sinclair Work Phone: [facility] Work Phone: 01-08-2022 12:30-0400 Systolic blood pressure 131 mm[Hg] Dr. Briseyda Sinclair Work Phone: [facility] Work Phone: 01-08-2022 12:00-0400 Body temperature 98 [degF] Dr. Briseyda Sinclair Work Phone: [facility] Work Phone: 01-08-2022 12:00-0400 Heart rate 96 /min Dr. Briseyda Sinclair Work Phone: [facility] Work Phone: 01-08-2022 12:00-0400 Respiratory rate 14 /min Dr. Briseyda Sinclair Work Phone: [facility] Work Phone: 01-08-2022 12:00-0400 SaO2% (BldA) [Mass fraction] 99 % Dr. Briseyda Sinclair Work Phone: [facility] Work Phone: 01-08-2022 08:19-0400 Body height 182.[address] Briseyda Sinclair Work Phone: [facility] Work Phone: 01-08-2022 08:19-0400 Body mass index (BMI) [Ratio] 20.6 kg/m2 Dr. Briseyda Sinclair Work Phone: [facility] Work Phone: 01-08-2022 08:19-0400 Body weight 68.[address] Briseyda Sinclair Work Phone: [facility] Work Phone: 01-04-2022 11:00-0400 Heart rate 92 /min Dr. Briseyda Sinclair Work Phone: [facility] Work Phone: 01-04-2022 08:27-0400 Body temperature 97.7 [degF] Dr. Briseyda Sinclair Work Phone: [facility] Work Phone: 01-04-2022 08:27-0400 Diastolic blood pressure 80 mm[Hg] Dr. Briseyda Sinclair Work Phone: [facility] Work Phone: 01-04-2022 08:27-0400 Respiratory rate 16 /min Dr. Briseyda Sinclair Work Phone: [facility] Work Phone: 01-04-2022 08:27-0400 SaO2% (BldA) [Mass fraction] 97 % Dr. Briseyda Sinclair Work Phone: [facility] Work Phone: 01-04-2022 08:27-0400 Systolic blood pressure 141 mm[Hg] Dr. Briseyda Sinclair Work Phone: [facility] Work Phone: 01-02-2022 17:08-0400 Body weight 70.[address] Briseyda Sinclair Work Phone: [facility] Work Phone: 01-02-2022 12:04-0400 Body mass index (BMI) [Ratio] 20.9 kg/m2 Dr. Briseyda Sinclair Work Phone: [facility] Work Phone: 01-02-2022 11:00-0400 Body temperature 97.8 [degF] Dr. Briseyda Sinclair Work Phone: [facility] Work Phone: 01-02-2022 11:00-0400 Diastolic blood pressure 76 mm[Hg] Dr. Briseyda Sinclair Work Phone: [facility] Work Phone: 01-02-2022 11:00-0400 Heart rate 94 /min Dr. Briseyda Sinclair Work Phone: [facility] Work Phone: 01-02-2022 11:00-0400 Respiratory rate 12 /min Dr. Briseyda Sinclair Work Phone: [facility] Work Phone: 01-02-2022 11:00-0400 SaO2% (BldA) [Mass fraction] 97 % Dr. Briseyda Sinclair Work Phone: [facility] Work Phone: 01-02-2022 11:00-0400 Systolic blood pressure 149 mm[Hg] Dr. Briseyda Sinclair Work Phone: [facility] Work Phone: 01-02-2022 06:53-0400 Body height 182.[address] Briseyda Sinclair Work Phone: [facility] Work Phone: 01-02-2022 06:53-0400 Body mass index (BMI) [Ratio] 21.4 kg/m2 Dr. Briseyda Sinclair Work Phone: [facility] Work Phone: 01-02-2022 06:53-0400 Body weight 71.[address] Briseyda Sinclair Work Phone: [facility] Work Phone: 09-20-2021 08:30-0500 Body mass index (BMI) [Ratio] 23.8 kg/m2 Dr. Briseyda Sinclair Work Phone: [facility] Work Phone: 09-20-2021 08:30-0500 Body temperature 98.5 [degF] Dr. Briseyda Sinclair Work Phone: [facility] Work Phone: 09-20-2021 08:30-0500 Body weight 79.[address] Briseyda Sinclair Work Phone: [facility] Work Phone: 09-20-2021 08:30-0500 Diastolic blood pressure 80 mm[Hg] Dr. Briseyda Sinclair Work Phone: [facility] Work Phone: 09-20-2021 08:30-0500 Heart rate 72 /min Dr. Briseyda Sinclair Work Phone: [facility] Work Phone: 09-20-2021 08:30-0500 Respiratory rate 14 /min Dr. Briseyda Sinclair Work Phone: [facility] Work Phone: 09-20-2021 08:30-0500 SaO2% (BldA) [Mass fraction] 99 % Dr. Briseyda Sinclair Work Phone: [facility] Work Phone: 09-20-2021 08:30-0500 Systolic blood pressure 132 mm[Hg] Dr. Briseyda Sinclair Work Phone: [facility] Work Phone: NEGATED: Highlighted [id number] 13:39-0400 Body height 182.88 cm Nisha Taylor [facility] Work Phone: NEGATED: Highlighted [id number] 13:39-0400 Body height 183 cm Nisha Taylor [facility] Work Phone: NEGATED: Highlighted [id number] 13:39-0400 Body mass index (BMI) [Ratio] 23.68 kg/m2 Nisha Taylor [facility] Work Phone: NEGATED: Highlighted [id number] 13:39-0400 Body weight 78.93 kg Nisha Taylor [employer] [facility] Work Phone: NEGATED: Highlighted [id number] 13:39-0400 Body weight 79 kg Nisha Taylor [employer] [facility] Work Phone: Encounters Encounter Date Encounter Type Care Provider Facility Start: 07-21-2025 End: 07-21-2025 Dr. Briseyda Sinclair MD -[facility] Work Phone: Start: 07-21-2025 End: 07-21-2025 ambulatory Briseyda Sinclair Facility:[facility] Start: 07-20-2025 End: 07-20-2025 Dr. Tanika Bear MD -[facility] Work Phone: Start: 07-20-2025 End: 07-20-2025 ambulatory Tanika Bear Facility:[facility] Start: 07-12-2025 End: 07-12-2025 Dr. Angelina Ruiz DO -Laboratory Work Phone: Start: 07-12-2025 End: 07-12-2025 ambulatory Briseyda Sinclair Facility:[facility] Start: 07-07-2025 End: 07-16-2025 Dr. Briseyda Sinclair MD -Nutritional Services Work Phone: Start: 07-07-2025 End: 07-16-2025 ambulatory Briseyda Sinclair Facility:[facility] Start: 07-06-2025 Dr. Briseyda gil MD -[facility] Start: 07-06-[address] Briseyda gil MD Work Phone: -[facility] Start: 06-30-2025 End: 06-30-2025 Dr. Briseyda Sinclair MD -[facility] Work Phone: Start: 06-30-2025 End: 06-30-[address] Briseyad Sinclair MD Work Phone: -[facility] Start: 06-29-2025 Encounter for other preprocedural examination Mookie Werner [facility] Start: 06-21-2025 End: 06-21-[address] Briseyda Sinclair MD Work Phone: -Laboratory Start: 06-21-2025 End: 06-21-2025 Dr. Briseyda Sinclair MD -Laboratory Work Phone: Start: 06-21-2025 End: 06-29-2025 Dr. Briseyda Sinclair MD -[facility] Work Phone: Start: 06-21-2025 End: 06-29-[address] Briseyda Sinclair MD Work Phone: [facility] Start: 06-21-2025 End: 06-21-2025 ambulatory [facility] Facility:[facility] Start: 06-15-2025 Dr. Fawad Bates MD -[facility] Work Phone: Start: 06-14-2025 Dr. Fawad Bates MD -[facility] Work Phone: Start: 06-14-2025 [facility] Start: 06-13-2025 Dr. Fawad Bates MD -[facility] Work Phone: Start: 06-12-2025 Dr. Fawad Bates MD -[facility] Work Phone: Start: 06-11-2025 Dr. Fawad Bates MD -[facility] Work Phone: Start: 06-10-2025 Dr. Candy Vo DO -[facility] Work Phone: Start: 06-09-2025 Dr. Candy Vo DO -[facility] Work Phone: Start: 06-08-2025 Dr. Candy Vo DO -[facility] Work Phone: Start: 06-07-2025 Dr. Merlin Costa DO [facility] Start: 06-07-2025 Dr. Candy Vo DO -[facility] Work Phone: Start: 06-06-2025 Dr. Richi Hope MD - [facility] Work Phone: Start: 06-05-2025 ambulatory [facility] Start: 06-05-2025 Dr. Jeffrey Lord MD -[facility] Start: 06-05-2025 ambulatory [facility] Start: 06-05-2025 End: 06-15-2025 Evaluation and management of inpatient Dr. Briseyda Sinclair MD Work Phone: -Progressive Care Unit Start: 06-05-2025 End: 06-15-2025 Dr. Fawad Bates MD -[facility] Work Phone: Start: 05-28-2025 ambulatory Mookie [place] Facility:[facility] Start: 05-12-2025 End: 05-12-[address] Mookie Werner MD -[facility] Work Phone: Start: 05-12-2025 End: 05-12-2025 Dr. Mookie Werner MD -[facility] Work Phone: Start: 05-12-2025 End: 05-12-[address] Briseyda Sinclair MD Work Phone: -[facility] Start: 05-06-2025 End: 05-06-[address] Briseyda Sinclair MD Work Phone: -Laboratory Specimen Start: 05-06-2025 End: 05-06-[address] Briseyda Sinclair MD -Laboratory Specimen Work Phone: Start: 05-06-2025 End: 05-06-2025 Dr. Briseyda Sinclair MD -Laboratory Specimen Work Phone: Start: 05-06-2025 End: 05-06-2025 ambulatory Briseyda Sinclair Facility:[facility] Start: 05-03-2025 End: 05-03-[address] Briseyda Sinclair MD -[facility] Work Phone: Start: 05-03-2025 End: 05-03-2025 Dr. Briseyda Sinclair MD -[facility] Work Phone: Start: 05-03-2025 End: 05-03-[address] Briseyda Sinclair MD Work Phone: -[facility] Start: 04-28-2025 End: 04-28-[address] Cuate Garrison MD -[facility] Work Phone: Start: 04-28-2025 End: 04-28-2025 Dr. Cuate Garrison MD -[facility] Work Phone: Start: 04-28-2025 End: 04-28-[address] Briseyda Sinclair MD Work Phone: -[facility] Start: 04-12-2025 End: 04-12-2025 Patient encounter procedure Saira Sánchez NP-C -[facility] Work Phone: Start: 04-12-2025 End: 04-12-2025 Saira Sánchez NP-C -[facility] Work Phone: Start: 04-12-2025 End: 04-12-[address] Briseyda Sinclair MD Work Phone: -[facility] Start: 03-29-2025 End: 03-29-2025 Ravinder Vance DO -Emergency Departmen t Work Phone: Start: 03-29-2025 End: 03-29-2025 Emergency department patient visit Dr. 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 Start: 03-05-2025 End: 03-05-2025 Telephone encounter Simba Blackman MD Work Phone: [facility] Comment on above: Lab Orders (/) Start: 03-04-2025 End: 03-04-[address] [facility] Start: 03-04-2025 End: 03-04-2025 Office outpatient new 45 minutes Simba Blackman MD Work Phone: [facility] Comment on above: Cerebral aneurysm (P rimary Dx); Cerebrovascular accident (CVA) due to stenosis of left carotid artery (HCC) Start: 03-04-2025 End: 06-03-2025 ambulatory [facility] Comment on above: Cerebral infarction due to unspecified occlusion or stenosis of left carotid arteries (HCC) (Primary Dx) Start: 02-19-2025 Non-patient / Non-visit Dr. Vira Garrison MD -[facility] Work Phone: Start: 02-19-2025 ambulatory Cuate Garrison Facility :[facility] Start: 02-19-2025 Registered Referred Saira Orourke -Cardiovascular Services Work Phone: Start: 02-19-2025 Dr. Cuate correa MD -[facility] Work Phone: Start: 02-17-2025 End: 03-25-2025 Telephone encounter Simba Blackman MD Work Phone: [facility] Comment on above: Referral Start: 02-11-2025 End: 02-11-2025 Patient encounter procedure Saira VEGA -[facility] Work Phone: Start: 02-11-2025 End: 02-11-[address] Briseyda Sinclair MD Work Phone: [facility] Work Phone: Start: 02-06-2025 End: 02-06-2025 Patient encounter procedure Brenda VEGA -[facility] Work Phone: Start: 02-06-2025 End: 02-06-2025 ambulatory Briseyda Sinclair Facility:[facility] Start: 02-01-2025 End: 02-01-[address] Mookie Werner MD -[facility] Work Phone: Start: 02-01-2025 End: 02-01-[address] Briseyda Sinclair MD Work Phone: [facility] Work Phone: Start: 01-27-2025 End: 01-27-[address] Briseyda Sinclair MD -[facility] Work Phone: Start: 01-27-2025 End: 01-27-[address] Briseyda Sinclair MD Work Phone: [facility] Work Phone: Start: 01-25-2025 End: 01-25-[address] Briseyda Sinclair MD Work Phone: [facility] Work Phone: Start: 01-25-2025 End: 01-25-[address] Dony Daily MD -Laboratory Work Phone: Start: 01-25-2025 End: 01-25-2025 ambulatory Briseyda Sinclair Facility:[facility] Start: 01-18-2025 End: 01-18-[address] Renae Rubalcava MD -Speech Therapy Work Phone: Start: 01-18-[address] Renae Rubalcava MD -Speech Therapy Work Phone: Start: 01-18-2025 Non-patient / Non-visit Dr. Marcie Sinclair MD -[facility] Start: 01-18-2025 End: 01-18-[address] Briseyda Sinclair MD Work Phone: -Speech Therapy Start: 01-14-2025 Non-patient / Non-visit Dr. Lidia Rubalcava MD -[facility] Work Phone: Start: 01-13-2025 Non-patient / Non-visit Dr. Lidia Rubalcava MD -[facility] Work Phone: Start: 01-13-2025 ambulatory Renae Rubalcava Facility :[facility] Start: 01-13-2025 End: 01-14-2025 Evaluation and management of inpatient Dr. Renae Rubalcava MD -Progressive Care Unit Work Phone: Start: 01-13-2025 ambulatory Mookie Werner Facility:[facility] Start: 01-13-2025 Non-patient / Non-visit Dr. Mookie yun MD -[facility] Start: 01-13-2025 ambulatory Briseyda Sinclair Facility :[facility] Start: 01-13-2025 Non-patient / Non-visit Dr. Shawn LORENZO -[facility] Start: 01-12-2025 Non-patient / Non-visit Dr. Sharonda Kenney MD -[facility] Work Phone: Start: 01-12-2025 ambulatory Bhupinder Kenney Fac ility:[facility] Start: 12-31-2024 End: 12-31-[address] Briseyda Sinclair MD -Ultrasound, [facility] Work Phone: Start: 12-30-2024 End: 12-31-[address] Briseyda Sinclair MD Work Phone: [facility] Work Phone: Start: 12-30-2024 End: 12-30-[address] Briseyda Sinclair MD -Laboratory Work Phone: Start: 12-30-2024 End: 12-30-2024 ambulatory Briseyda Sinclair Facility:[facility] Start: 11-18-2024 End: 11-18-[address] Briseyda Sinclair MD Work Phone: [facility] Work Phone: Start: 11-18-2024 End: 11-18-[address] Briseyda Sinclair MD -Laboratory Work Phone: Start: 11-18-2024 End: 11-18-2024 ambulatory Briseyda Sinclair Facility:[facility] Start: 11-09-2024 End: 11-09-[address] Cuate Garrison MD -[facility] Work Phone: Start: 11-09-2024 End: 11-09-2024 ambulatory Briseydareji Sinclair Facility:[facility] Start: 10-13-2024 End: 10-13-2024 ambulatory Vito Dejesus Facility:[facility] Start: 10-13-2024 End: 10-13-[address] Vito Dejesus MD -Physical Therapy Work Phone: Start: 09-29-2024 End: 09-29-[address] Vito Dejesus MD -[facility] Work Phone: Start: 09-29-2024 End: 09-29-2024 ambulatory Briseydareji Sinclair Facility:[facility] Start: 08-31-2024 End: 08-31-[address] Briseyda Sinclair MD -[facility] Work Phone: Start: 08-31-2024 End: 08-31-2024 ambulatory Briseyda Dottie Facility:[facility] Start: 08-20-2024 End: 08-20-[address] Vito Dejesus MD -[facility] Work Phone: Start: 08-20-2024 End: 08-20-2024 ambulatory Vito Dejesus Facility:[facility] Start: 08-11-2024 End: 08-11-[address] Briseyda Sinclair MD -Laboratory Work Phone: Start: 08-10-2024 End: 08-10-[address] Briseyda Sinclair MD -[facility] Work Phone: Start: 08-10-2024 End: 08-11-2024 ambulatory Brisedyareji Sinclair Facility:[facility] Start: 12-03-2023 Non-patient / Non-visit Dr. Marcie Sinclair Work Phone: [facility] Start: 12-03-2023 End: 12-03-2023 Admission to same day surgery center Dr. Briseyda Sinclair Work Phone: [facility]-Endoscopy Work Phone: Start: 12-03-2023 End: 12-03-[address] Briseyda Sinclair Work Phone: [facility] Work Phone: Start: 11-22-2023 End: 11-22-[address] Briseyda Sinclair Work Phone: [facility] Work Phone: Start: 11-19-2023 End: 11-19-[address] Briseyda Sinclair Work Phone: [facility] Work Phone: Start: 11-19-2023 End: 11-19-[address] Briseyda Sinclair Work Phone: [facility]-Laboratory Work Phone: Start: 11-06-2023 End: 11-06-[address] Briseyda Sinclair Work Phone: [facility]-Laboratory Work Phone: Start: 10-07-2023 End: 10-07-[address] Briseyda Sinclair Work Phone: [facility] Work Phone: Start: 08-29-2023 End: 08-29-[address] Briseyda Sinclair Work Phone: [facility] Work Phone: Start: 08-24-2023 End: 08-24-2023 Emergency department patient visit Dr. Briseyda Sinclair Work Phone: [facility]-Emergency Department Work Phone: Start: 08-20-2023 End: 08-20-2023 Emergency department patient visit Dr. Briseyda Sinclair Work Phone: [facility]-Emergency Department Work Phone: Start: 08-13-2023 End: 08-13-[address] Briseyda Sinclair Work Phone: [facility] Work Phone: Start: 05-23-2023 End: 05-23-[address] Briseyda Sinclair Work Phone: [facility] Work Phone: Start: 05-23-2023 End: 05-23-[address] Briseyda Sinclair Work Phone: [facility]-Laboratory Work Phone: Start: 05-22-2023 End: 05-22-[address] Briseyda Sinclair Work Phone: [facility] Work Phone: Start: 04-03-2023 End: 04-03-[address] [facility] Start: 04-01-2023 End: 04-01-[address] Briseyda Sinclair Work Phone: [facility] [place] Work Phone: Start: 03-07-2023 End: 03-07-[address] Briseyda Sinclair Work Phone: [facility] Work Phone: Start: 02-18-2023 Non-patient / Non-visit Dr. Marcie Sinclair Work Phone: [facility] Start: 02-18-2023 End: 02-18-[address] Briseyda Sinclair Work Phone: [facility]-Cardiovascular Services Work Phone: Start: 09-25-2022 End: 09-25-[address] Briseyda Sinclair Work Phone: [facility] Work Phone: Start: 09-25-2022 End: 09-25-[address] Briseyda Sinclair Work Phone: [facility]-Laboratory, [facility] Start: 09-24-2022 End: 09-24-[address] Briseyda Sinclair Work Phone: [facility] Start: 06-04-2022 End: 06-04-[address] Briseyda Sinclair Work Phone: [facility] Work Phone: Start: 06-04-2022 End: 06-04-[address] Briseyda Sinclair Work Phone: [facility]-Laboratory Start: 06-01-2022 End: 06-01-2022 Admission to same day surgery center Dr. 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 Marcie Sinclair Work Phone: [facility] Start: 05-24-2022 End: 05-24-[address] Briseyda Sinclair Work Phone: [facility] Start: 05-16-2022 Non-patient / Non-visit Dr. Marcie Sinclair Work Phone: [facility] Start: 05-16-2022 End: 05-16-[address] Briseyda Sinclair Work Phone: [facility] Work Phone: Start: 05-16-2022 End: 05-16-[address] [facility] Sinclair [facility] Start: 05-04-2022 End: 05-04-[address] Briseyda Sinclair Work Phone: [facility] Start: 04-16-2022 Non-patient / Non-visit Dr. Marcie Sinclair Work Phone: [facility] Start: 03-21-2022 End: 03-21-[address] Briseyda Sinclair Work Phone: [facility] Start: 03-02-2022 End: 03-02-[address] Briseyda Sincalir Work Phone: [facility] Start: 02-09-2022 Non-patient / Non-visit Dr. Marcie Sinclair Work Phone: [facility] Start: 02-09-2022 End: 02-09-[address] [facility]da Sinclair [facility] Start: 02-09-2022 End: 02-09-2022 ambulatory Maria Elena O'Betito PT [facility] Physical Therapy Comment on above: Adhesive capsulitis of right shoulder Start: 02-02-2022 End: 02-02-2022 ambulatory Maria Elena O'Betito PT Work Phone: [facility] Comment on above: Adhesive capsulitis of right shoulder Start: 01-26-2022 End: 01-26-2022 ambulatory Maria Elena O'Betito PT Work Phone: [facility] Comment on above: Adhesive capsulitis of right shoulder Start: 01-24-2022 End: 01-24-[address] Briseyda Sinclair Work Phone: [facility] Start: 01-19-2022 End: 01-19-2022 ambulatory Maria Elena O'Betito PT Work Phone: [facility] Physical Therapy Comment on above: Adhesive capsulitis of right shoulder Start: 01-10-2022 End: 01-10-[address] Briseyda Sinclair Work Phone: [facility] Start: 01-08-2022 End: 01-08-2022 Emergency department patient visit Dr. Briseyda Sinclair Work Phone: [facility]-Emergency Department Start: 01-04-2022 Non-patient / Non-visit Dr. Macrie Sinclair Work Phone: [facility] Start: 01-03-2022 Non-patient / Non-visit Dr. Marcie Sinclair Work Phone: [facility] Start: 01-02-2022 End: 01-04-2022 Evaluation and management of inpatient Dr. Briseyda Sinclair Work Phone: [facility]-Progressive Care Unit Start: 12-28-2021 End: 12-28-2021 ambulatory Maria Elena O'Betito PT Work Phone: [facility] Physical Therapy Comment on above: Adhesive capsulitis of right shoulder (Primary Dx) Start: 12-27-2021 End: 12-27-2021 Pt evaluation Eloy Martinez MD Work Phone: [facility] Work Phone: Start: 09-25-2021 Non-patient / Non-visit Dr. Marcie Sinclair Work Phone: [facility] Start: 09-20-2021 End: 09-20-[address] Briseyda Sinclair Work Phone: [facility] Start: 09-04-[address] Briseyda Sinclair Work Phone: [facility] Start: 09-04-[address] Briseyda Sinclair Work Phone: [facility] Procedures Date Procedure Procedure Detail Performing Clinician Start: 06-21-2025 Mean corpuscular hem oglobin concentration determination Dr. Briseyda Sinclair MD Work Phone: Start: 06-21-[address] Marcie Sinclair MD Work Phone: Start: 06-21-2025 Nucleated red blood cell count procedure Dr. Briseyda Sinclair MD Work Phone: Start: 06-21-2025 Platelet mean volume determination Dr. Briseyda Sinclair MD Work Phone: Start: 06-15-2025 Dr. Briseyda Sinclair MD Work Phone: Start: 06-15-2025 Blood count smear mc rscp w/mnl difrntl wbc count Dr. Briseyda Sinclair MD Work Phone: Start: 06-15-[address] Briseyda Sinclair MD Work Phone: Start: 06-15-2025 Mean corpuscular hem oglobin concentration determination Dr. Briseyda Sinclair MD Work Phone: Start: 06-15-[address] Marcie Sinclair MD Work Phone: Start: 06-15-2025 Nucleated red blood cell count procedure Dr. Briseyda Sinclair MD Work Phone: Start: 06-15-2025 Platelet mean volume determination Dr. Briseyda Sinclair MD Work Phone: Start: 06-14-2025 Plain chest X-ray Dr. Hammad Sinclair MD Work Phone: Start: 06-14-2025 Insertion of hemodia lysis catheter Dr. Briseyda Sinclair MD Work Phone: Start: 06-14-2025 Fluoroscopic guidance D r. Briseyda Dottie MD Work Phone: Start: 06-14-2025 Calculation of international normalized ratio Dr. Briseyda Sinclair MD Work Phone: Start: 06-07-2025 Plain chest X-ray Dr. Hammad Sinclair MD Work Phone: Start: 06-07-2025 Albumin/Globulin ratio Dr. Briseyda Sinclair MD Work Phone: Start: 06-07-[address] Kathleen Sinclair MD Work Phone: Start: 06-07-2025 C>3< complement assay Rafael Sinclair MD Work Phone: Start: 06-07-[address] M measurement [address] Briseyda Sinclair MD Work Phone: Start: 06-06-[address] Briseyda Sinclair MD Work Phone: Start: 06-06-2025 Serum inorganic phos phate measurement Dr. Briseyda Sinclair MD Work Phone: Start: 06-06-2025 Total cholesterol:HD L ratio measurement Dr. Briseyda Sinclari MD Work Phone: Start: 06-06-[address] Briseyda Sinclair MD Work Phone: Start: 06-05-2025 Venous oxygen satura tion measurement Dr. Briseyda Sinclair MD Work Phone: Start: 06-05-2025 Osmolality measureme nt, serum Dr. Briseyda Sinclair MD Work Phone: Start: 06-05-[address] Briseyda Sinclair MD Work Phone: Start: 06-05-2025 Urine microscopy: red cells Dr. Briseyda Sinclair MD Work Phone: Start: 06-05-2025 Urnls dip stick/tabl et reagent auto microscopy Dr. Briseyda Sinclair MD Work Phone: Start: 06-05-2025 Us retroperitoneal r eal time w/image complete Dr. Briseyda Sinclair MD Work Phone: Start: 06-05-2025 Plain X-ray abdomen Dr. Briseyda Sinclair MD Work Phone: Start: 05-06-2025 Clostridium difficil e detection Dr. Briseyda Sinclair MD Work Phone: Start: 05-06-[address] Briseyda Sinclair MD Work Phone: Start: 05-06-[address] Briseyda Sinclair MD Work Phone: Start: 05-06-[address] Briseyda Sinclair MD Work Phone: Comment on above: Test Ordered: [id number] Stool CultureSalmonella/Shigella Screen Note: CB Final report Reference Range: .Result 1 Comment CB Reference Range: .No Salmonella or Shigella recovered.Campylobacter Culture Note: CB Final report Reference Range: .Result 1 Comment CB Reference Range: .No Campylobacter species isolated.E coli Shiga Toxin EIA Negative CB Reference Range: NegativePerformed at: [facility] [id number] Director: Ciaran Sethi PhD, Phone: [phone] Start: 03-29-2025 X-ray of chest, PA a nd lateral views Dr. Briseyda Sinclair MD Work Phone: Start: 03-29-2025 Blood count smear mc rscp w/mnl difrntl wbc count Dr. Briseyda Sinclair MD Work Phone: Start: 03-29-[address] Briseyda Sinclair MD Work Phone: Start: 03-29-2025 Mean corpuscular hem oglobin concentration determination Dr. Briseyda Sinclair MD Work Phone: Start: 03-29-[address] Marcie Sinclair MD Work Phone: Start: 03-29-2025 Platelet mean volume determination Dr. Briseyda Sinclair MD Work Phone: Start: 03-29-2025 [address]a se measurement Dr. Briseyda Sinclair MD Work Phone: [...] 12-27-2021 End: 12-27-2021 Docrev cur meds by [facility] Eloy Martinez MD Work Phone: Start: 12-27-2021 End: 12-27-2021 Pain doc pos and plan Eloy Martinez MD Work Phone: Start: 12-27-2021 End: 04-13-2022 Patient encounter procedure Eloy hernandez MD Work Phone: Start: 12-27-2021 End: 12-27-2021 Radex shoulder complete minimum 2 views Eloy Martinez MD Work Phone: Start: 12-27-2021 End: 12-27-2021 Triamcinolone acet inj NOS Eloy Martinez MD Work Phone: NEGATED: Highlighted rowStart: 12-27-2021 End: 12-27-2021 Documentation of current medications Nisha Taylor LPN Plan of Treatment Date Care Activity Detail Author Start: 08-02-2025 ambulatory Facility:[facility] Start: 07-12-2025 -Laborator y Work Phone: Start: 07-07-2025 -Nutrition al Services Work Phone: Start: 07-06-2025 -[facility] Start: 06-15-2025 Patient discharge [facility] Start: 06-15-2025 Catheterization of vein [facility] Start: 06-15-2025 Oxygen therapy [facility] Start: 06-15-2025 Vital signs measurements [facility] Start: 06-14-2025 Hemodialysis care [facility] Start: 06-14-2025 [facility] Start: 06-14-2025 Care of hemodialysis equipment [facility] Start: 06-14-2025 Hemodialysis care [facility] Start: 06-14-2025 [facility] Start: 06-12-2025 Referral to general surgeon [facility] Start: 06-12-2025 Removal of urinary catheter [facility] Start: 06-11-2025 Care of hemodialysis equipment [facility] Start: 06-11-2025 Hemodialysis care [facility] Start: 06-11-2025 [facility] Start: 06-09-2025 Care of hemodialysis equipment [facility] Start: 06-09-2025 Hemodialysis care [facility] Start: 06-09-2025 End: 06-09-2025 [facility] Start: 06-08-2025 Referral for physica l therapy [facility] Start: 06-08-2025 Referral to occupati onal therapist [facility] Start: 06-08-2025 Care of hemodialysis equipment [facility] Start: 06-08-2025 Hemodialysis care [facility] Start: 06-08-2025 [facility] Start: 06-08-2025 Following clinical pathway protocol [facility] Start: 06-08-2025 Patient referral to dietitian [facility] Start: 06-07-2025 Application of intermittent pneumatic compression device [facility] Start: 06-07-2025 Care of hemodialysis equipment [facility] Start: 06-07-2025 Hemodialysis care [facility] Start: 06-07-2025 [facility] Start: 06-06-2025 [facility] Start: 06-06-2025 [facility] Start: 06-05-2025 End: 06-05-2025 [facility] Start: 06-05-2025 Following clinical pathway protocol [facility] Start: 06-05-2025 Assessment of risk o f venous thromboembolism [facility] Start: 06-05-2025 Care regimes management [facility] Start: 06-05-2025 Insertion of cathete r into peripheral vein [facility] Start: 06-05-2025 Introduction of urin jovi catheter [facility] Start: 06-05-2025 Measuring intake and output [facility] Start: 06-05-2025 Notification of physician [facility] Start: 06-05-2025 Providing care accor ding to standard [facility] Start: 06-05-2025 Provision of activit y privileges [facility] Start: 06-05-2025 Referral to voucher clerk [facility] Start: 06-05-2025 Referral to service [facility] Start: 06-05-2025 End: 06-05-2025 [facility] Start: 06-05-2025 Admission procedure [facility] Start: 06-05-2025 [facility] Start: 06-05-2025 Patient referral to dietitian [facility] Start: 05-17-2025 COVID-19 Vaccine ( season) COVID-19 Vaccine () [facility] Start: 05-17-2025 Influenza vaccination Influenza Vacc ine (#1) [facility] Start: 03-29-2025 [facility] Start: 03-29-2025 [facility] Start: 03-05-2025 End: 03-05-2026 PRU Test (P2Y12) PRU Test (P2Y12) Lab Routine Cerebrovascular accident (CVA) due to stenosis of left carotid artery (HCC) Expected: 03/05/2025 (Approximate), Expires: 03/05/2026 [facility] Work Phone: Comment on above: Expected: 03/05/2025 (Approximate), Expires: 03/05/2026 Start: 03-04-2025 End: 03-04-2026 PRU Test (P2Y12) PRU Test (P2Y12) Lab Routine Cerebral aneurysm Cerebrovascular accident (CVA) due to stenosis of left carotid artery (HCC) Expected: 03/04/2025 (Approximate), Expires: 03/04/2026 [facility] Ofelia Feliz Work Phone: Comment on above: Expected: 03/04/2025 (Approximate), Expires: 03/04/2026 Start: 02-01-2025 Patient referral [facility] Work Phone: Start: 01-18-2025 Patient referral [facility] Work Phone: Start: 01-14-2025 Patient discharge [facility] Start: 01-13-2025 [facility] Start: 01-13-2025 Admission procedure [facility] Start: 01-12-2025 Following clinical pathway protocol [facility] Start: 01-12-2025 Ambulation without limitation [facility] Start: 01-12-2025 Aspiration precautions [facility] Start: 01-12-2025 Assessment of risk o f venous thromboembolism [facility] Start: 01-12-2025 Cardiac monitoring [facility] Start: 01-12-2025 Care regimes management [facility] Start: 01-12-2025 Catheterization of vein [facility] Start: 01-12-2025 Consultation [facility] Start: 01-12-2025 Elevation of head of bed [facility] Start: 01-12-2025 Exercises [facility] Start: 01-12-2025 Insertion of cathete r into peripheral vein [facility] Start: 01-12-2025 Measuring intake and output [facility] Start: 01-12-2025 Notification of physician [facility] Start: 01-12-2025 Oxygen therapy [facility] Start: 01-12-2025 Patient referral to dietitian [facility] Start: 01-12-2025 Providing care accor ding to standard [facility] Start: 01-12-2025 Referral to occupati onal therapist [facility] Start: 01-12-2025 Referral to service [facility] Start: 01-12-2025 Speech therapy assessment [facility] Start: 01-12-2025 Tobacco use cessatio n education [facility] Start: 01-12-2025 End: 01-12-2025 [facility] Start: 01-12-2025 Vital signs measurements [facility] Start: 01-12-2025 Admission procedure [facility] Start: 01-12-2025 [facility] Start: 01-12-2025 [facility] Start: 08-20-2024 Patient referral [facility] Work Phone: Start: 05-17-2024 COVID-19 Vaccine ( season) COVID-19 Vaccine ( season) [facility] Start: 12-03-2023 Patient discharge [facility] Start: 08-24-2023 [facility] Start: 08-24-2023 Contact precautions [facility] Start: 08-20-2023 [facility] Start: 08-20-2023 [facility] Start: 05-17-2022 Influenza vaccination INFLUENZA (Sea son Ended) [facility] Start: 04-26-2022 COVID-19 VACCINE (4 - Booster for Pfizer series) COVID-19 VACCINE (4 - Booster for Pfizer series) [facility] Start: 01-15-2022 COVID-19 VACCINE (2 - Pfizer 3-dose series) COVID-19 VACCINE (2 - Pfizer 3-dose series) [facility] Start: 01-02-2022 Bacteria identified in Blood by Culture Blood Culture [facility] Work Phone: Start: 12-27-2021 End: 12-27-2021 Patient encounter procedure Appointment [facility] Work Phone: Start: 09-16-2021 ADVANCE DIRECTIVE DISCUSSION ADVANCE DIRECTIVE DISCUSSION [facility] Start: 2015 PNEUMOCOCCAL: 65+ (1 - PCV) PNEUMOCOCCAL: 65+ (1 - PCV) [facility] Start: 2015 PNEUMOVAX AGE 65 AND OVER WITH 5YR LOOKBACK (#1) PNEUMOVAX AGE 65 AND OVER WITH 5YR LOOKBACK (#1) [facility] Start: 2000 SHINGRIX VACCINE (1 of 2) SHINGRIX VACCINE (1 of 2) [facility] Start: 2000 Zoster Vaccines (1 of 2) Zoster Vacc adele (1 of 2) [facility] Start: 1995 COLOGUARD (FIT-DNA) COLOGUARD (FIT-D NA) [facility] Start: 1995 Colonoscopy COLONOSCOPY [facility] Start: 1995 COLORECTAL CANCER SCREENING COLORECTAL CANCER SCREENING [facility] Start: [address] COLONOGRAPHY [facility] Start: 1995 DIABETES SCREEN DIABETES SCREEN [facility] Start: 1995 FECAL OCCULT BLOOD FECAL OCCULT BLOO D [facility] Start: 1995 SIGMOIDOSCOPY SIGMOIDOSCOPY [facility] Start: 1985 LIPID SCREEN LIPID SCREEN [facility] Start: 1969 DTaP/Tdap/Td Vaccine s (1 - Tdap) DTaP/Tdap/Td Vaccines (1 - Tdap) [facility] Start: 1969 Pneumococcal Vaccine : 50+ Years (1 of 2 - PCV) Pneumococcal Vaccine: 50+ Years (1 of 2 - PCV) [facility] Start: 1969 Urine microalbumin profile DTAP,TDAP,TD (1 - Tdap) [facility] Start: 1968 Diabetes: Estimated Glomerular Filtration Rate for Kidney Health Diabetes: Estimated Glomerular Filtration Rate for Kidney Health [facility] Start: 1968 Diabetes: Urine Albumin-Creatinine Ratio for Kidney Health Diabetes: Urine Albumin-Creatinine Ratio for Kidney Health [facility] Start: 1968 HEPATITIS C SCREENING HEPATITIS C [facility] Start: 1968 Hepatitis C screening Hepatitis C [facility] Start: 1962 Adult depression screening assessment DEPRESSION SCREENING [facility] Start: 1960 Diabetic foot examination Diabetes: Foot Exam [facility] Start: 1960 Glaucoma screening Diabetes: R etinopathy Screening [facility] Start: 1960 Preventive dental service Diabetes: Dental Exam [facility] Start: 1950 Hemoglobin A1c measurement Diabetes: Hemoglobin A1C [facility] Start: 1950 Lipid panel Lipid Panel [facility] Start: 1950 Medicare Annual Well ness (AWV) Medicare Annual Wellness (AWV) [facility] Start: 1950 Screening for malign ant neoplasm of colon [facility] Cardiac event recording [facility] CBC W Auto Different ial panel - Blood [facility] Colonoscopy [facility] Comprehensive metabo lic 1999 panel - Serum or Plasma [facility] Giardia lamblia Ag [Presence] in Stool by Immunoassay [facility] Hemoglobin A1c/Hemoglobin.total in Blood [facility] Lactoferrin [Presenc e] in Stool by Immunoassay [facility] Lipid 1996 panel - S azul or Plasma [facility] Nucleic acid assay [facility] Patient Education [facility] Work Phone: Patient referral [facility] Work Phone: [place] Carotid arteries [facility] Work Phone: [place] Carotid arteries [facility] [place] Carotid arteries [facility] Carotid arteries [facility] Carotid arteries [facility] Immunizations Immunization Date Immunization Notes Care Provider Newton riojas 06-30-2025 pneumococcal polysaccharide vaccine, [address] Briseyda Sinclair MD Work Phone: [facility] 06-22-2024 Seasonal trivalent influenza vaccine, adjuvanted, preservative free Dr. Briseyda Sinclair MD Work Phone: [facility] 06-22-2024 influenza virus vacc ine, unspecified formulation [employer] Work Phone: [facility] 07-28-2023 influenza, injectabl e, quadrivalent, preservative free Dr. Briseyda Sinclair MD Work Phone: [facility] 07-28-2023 RSV Adult Recombinan t (Arexvy) Dr. Briseyda Sinclair MD Work Phone: [facility] 07-14-2023 Covid (Spikevax) Dr. Briseyda hernandez MD Work Phone: [facility] 06-25-2022 Covid Pfizer Bivalen t Booster Dr. Briseyda Sinclair MD Work Phone: [facility] 06-06-2022 Influenza High-Dose Quadrivalent Dr. Briseyda Sinclair MD Work Phone: [facility] 12-25-2021 Covid (Pfizer) Dr. Briseyda albert MD Work Phone: [facility] Payers Date Payer Category Payer Self-pay [id number] 2024 Unknown [id number] 2017 Commercial [facility] - HMO [facility] [id number] 2017 Medicare MEDICARE PART A AND B [id number] 5 2017 Unknown [employer]IC[employer] SUPPLEMENT [id number] 2017-Present [phone] [employer] [place] [id number] Indemnity [id number] .[id number] 2017 Unknown [id number] 2015 Medicare MEDICARE MEDICAR E A AND B [id number] 2015-Present [phone] [place] [address] Medicare [id number] 2015 Medicare [id number] Unknown [id number] .2.462 Unknown [id number] 840.1.200585.3.579 .2.462 Unknown [id number] 2.16840.1.369579.3.579 .2.462 Unknown [id number] 2.16840.1.083499.3.579 .2.462 Unknown [id number] 2.16840.1.673227.3.579 .2.462 Unknown [id number] 2.16.840.1.622127.3.579 .2.462 Unknown [id number] 2.16.840.1.962573.3.579 .2.462 Unknown [id number] 2.16.840.1.367463.3.579 .2.462 Unknown [id number] 2.16.840.1.595554.3.579 .2.462 Unknown [id number] 2.16.840.1.618502.3.579 .2.462 Unknown [id number] 2.16.840.1.051234.3.579 .2.462 Unknown [id number] 2.16.840.1.023688.3.579 .2.462 Unknown [id number] 2.16.840.1.841254.3.579 .2.462 Unknown [id number] 2.16840.1.729130.3.579 .2.462 Unknown [id number] 2.16.840.1.923200.3.579 .2.462 Unknown [id number] 2.16.840.1.544068.3.579 .2.462 Unknown [id number] 2.16.840.1.643551.3.579 .2.462 Unknown [id number] 2.16.840.1.742487.3.579 .2.462 Unknown [id number] 2.16.840.1.933173.3.579 .2.462 Unknown [id number] 2.16.840.1.677658.3.579 .2.462 Unknown [id number] 2.16.840.1.382519.3.579 .2.462 Unknown [id number] 2.16.840.1.127794.3.579 .2.462 Unknown [id number] 2.16.840.1.940361.3.579 .2.462 Unknown [id number] 2.16.840.1.422358.3.579 .2.462 Unknown [id number] 2.16.840.1.406190.3.579 .2.462 Unknown [id number] 2.16.840.1.465897.3.579 .2.462 Unknown [id number] 2.16.840.1.985303.3.579 .2.462 Unknown [id number] 2.16.840.1.241373.3.579 .2.462 Unknown [id number] 2.16.840.1.552596.3.579 .2.462 Unknown [id number] 2.840.1.499333.3.579 .2.462 Unknown [id number] 2.840.1.166922.3.579 .2.462 Unknown [id number] 2.840.1.859359.3.579 .2.462 Unknown [id number] 2.840.1.563563.3.579 .2.462 Unknown [id number] 2.840.1.671381.3.579 .2.462 Unknown [id number] 2.840.1.760081.3.579 .2.462 Unknown [id number] 2.16840.1.514714.3.579 .2.462 Unknown [id number] 2.16.840.1.287491.3.579 .2.462 Unknown [id number] 2.16.840.1.235890.3.579 .2.462 Unknown [id number] 2.16.840.1.634236.3.579 .2.462 Unknown [id number] 2.16.840.1.127230.3.579 .2.462 Unknown [id number] 2.16.840.1.640676.3.579 .2.462 Unknown [id number] 2.16.840.1.441035.3.579 .2.462 Unknown [id number] 2.16.840.1.602467.3.579 .2.462 Unknown [id number] 2.16.840.1.021561.3.579 .2.462 Unknown [id number] 2.16.840.1.300600.3.579 .2.462 Unknown [id number] 2.16.840.1.063116.3.579 .2.462 Unknown [id number] 2.16.840.1.108681.3.579 .2.462 Unknown [id number] 2.16.840.1.901001.3.579 .2.462 Unknown [id number] 2.16.840.1.400385.3.579 .2.462 Unknown [id number] 2.16.840.1.064542.3.579 .2.462 Unknown [id number] 2.16.840.1.073754.3.579 .2.462 Unknown [id number] 2.16.840.1.521076.3.579 .2.462 Unknown [id number] 2.16.840.1.077739.3.579 .2.462 Unknown [id number] 2.16.840.1.473989.3.579 .2.462 Unknown [id number] 2.16.840.1.367430.3.579 .2.462 Unknown [id number] 2.16.840.1.813844.3.579 .2.462 Unknown [id number] 2.16.840.1.656186.3.579 .2.462 Unknown [id number] 2.16840.1.252460.3.579 .2.462 Unknown [id number] 2.16840.1.102529.3.579 .2.462 Social History Date Type Detail Facility Start: 01-02-2022 End: 11-29-2023 Tobacco smoking status MTIS Tobacco smoking consumption unknown [facility] Start: 1950 Sex Assigned At Male [facility] Start: 12-17-2021 End: 12-27-2021 Exposure to SARS-CoV-2 (event) Not sure [facility] Start: 08-10-2024 End: 06-05-2025 Tobacco smoking status NHIS Ex-smoker (finding) [facility] Start: 12-01-2024 End: 02-17-2025 Sex Male (finding) [facility] Start: 01-14-2025 Tobacco Use Tobacco Use [facility] End: 09-16-2000 History of tobacco use Current smoker [facility] End: 09-16-2000 History of tobacco use Cigarette Smoker [facility] Start: 03-04-2025 Tobacco use and exposure Smokeless tobacco non-user [facility] Start: 03-04-2025 History of Social function [facility] Start: 03-04-2025 Tobacco use panel [facility] Start: 1950 Sex assigned at Not on file [facility] Start: 03-01-2025 Gender identity Identifies as male gender (finding) [facility] NEGATED: Highlighted rowStart: 12-27-2021 End: 12-27-2021 Alcohol use Alcohol use [facility] Work Phone: NEGATED: Highlighted rowStart: 12-27-2021 End: 12-27-2021 Details of drug misuse behavior Details of drug misuse behavior [facility] Work Phone: NEGATED: Highlighted rowStart: 12-27-2021 End: 12-27-2021 Assertion Former smoker [facility] Work Phone: Medical Equipment Procedure Code Equipment Code Equipment Origin al Text Equipment Identifier Dates Insertion, catheter, hemodialysis FDA Start: 06-14-2025 Insertion, catheter, hemodialysis FDA Start: 06-14-2025 Insertion, catheter, hemodialysis FDA Start: 06-14-2025 Insertion, catheter, hemodialysis FDA Start: 06-14-2025 Insertion, catheter, hemodialysis FDA Start: 06-14-2025 Insertion, catheter, hemodialysis FDA Start: 06-14-2025 Insertion, catheter, hemodialysis FDA Start: 06-14-2025 Pen Needle, Diabetic (Novofine Plus) 32 gauge x 1/6 needle Start: 09-22-2021 Pen Needle, Diabetic (Novofine Plus) 32 gauge x 1/6 needle Start: 09-20-2021 End: 09-20-2021 Pen Needle, Diabetic (Novofine Plus) 32 gauge x 1/6 needle Start: 09-20-2021 End: 09-22-2021 Pen Needle, Diabetic (Novofine Plus) 32 gauge x 1/6 needle Start: 09-22-2021 Pen Needle, Diabetic (Novofine Plus) 32 gauge x 1/6 needle Start: 09-20-2021 End: 09-20-2021 Pen Needle, Diabetic (Novofine Plus) 32 gauge x 1/6 needle Start: 09-20-2021 End: 09-22-2021 Blood Sugar Diagnostic (Onetouch Verio Test Strips) strip Start: 02-14-2022 Pen Needle, Diabetic (Novofine Plus) 32 gauge x 1/6 needle Start: 09-22-2021 Blood Sugar Diagnostic (Onetouch Verio Test Strips) strip Start: 02-13-2022 End: 02-14-2022 Pen Needle, Diabetic (Novofine Plus) 32 gauge x 1/6 needle Start: 09-20-2021 End: 09-20-2021 Pen Needle, Diabetic (Novofine Plus) 32 gauge x 1/6 needle Start: 09-20-2021 End: 09-22-2021 Blood Sugar Diagnostic (Onetouch Verio Test Strips) strip Start: 02-14-2022 Pen Needle, Diabetic (Novofine Plus) 32 gauge x 1/6 needle Start: 09-22-2021 Blood Sugar Diagnostic (Onetouch Verio Test Strips) strip Start: 02-13-2022 End: 02-14-2022 Pen Needle, Diabetic (Novofine Plus) 32 gauge x 1/6 needle Start: 09-20-2021 End: 09-20-2021 Pen Needle, Diabetic (Novofine Plus) 32 gauge x 1/6 needle Start: 09-20-2021 End: 09-22-2021 Blood Sugar Diagnostic (Onetouch Verio Test Strips) strip Start: 02-14-2022 Pen Needle, Diabetic (Novofine Plus) 32 gauge x 1/6 needle Start: 09-22-2021 Blood Sugar Diagnostic (Onetouch Verio Test Strips) strip Start: 02-13-2022 End: 02-14-2022 Pen Needle, Diabetic (Novofine Plus) 32 gauge x 1/6 needle Start: 09-20-2021 End: 09-20-2021 Pen Needle, Diabetic (Novofine Plus) 32 gauge x 1/6 needle Start: 09-20-2021 End: 09-22-2021 Blood Sugar Diagnostic (Onetouch Verio Test Strips) strip Start: 02-14-2022 Pen Needle, Diabetic (Novofine Plus) 32 gauge x 1/6 needle Start: 07-24-2022 Blood Sugar Diagnostic (Onetouch Verio Test Strips) strip Start: 02-13-2022 End: 02-14-2022 Pen Needle, Diabetic (Novofine Plus) 32 gauge x 1/6 needle Start: 09-20-2021 End: 09-20-2021 Pen Needle, Diabetic (Novofine Plus) 32 gauge x 1/6 needle Start: 09-20-2021 End: 09-22-2021 Pen Needle, Diabetic (Novofine Plus) 32 gauge x 1/6 needle Start: 09-22-2021 End: 07-23-2022 Pen Needle, Diabetic (Novofine Plus) 32 gauge x 1/6 needle Start: 07-23-2022 End: 07-24-2022 Blood Sugar Diagnostic (Onetouch Verio Test Strips) strip Start: 04-03-2023 Pen Needle, Diabetic (Novofine Plus) 32 gauge x 1/6 needle Start: 07-24-2022 Blood Sugar Diagnostic (Onetouch Verio Test Strips) strip Start: 02-13-2022 End: 02-14-2022 Blood Sugar Diagnostic (Onetouch Verio Test Strips) strip Start: 02-14-2022 End: 04-03-2023 Pen Needle, Diabetic (Novofine Plus) 32 gauge x 1/6 needle Start: 09-20-2021 End: 09-20-2021 Pen Needle, Diabetic (Novofine Plus) 32 gauge x 1/6 needle Start: 09-20-2021 End: 09-22-2021 Pen Needle, Diabetic (Novofine Plus) 32 gauge x 1/6 needle Start: 09-22-2021 End: 07-23-2022 Pen Needle, Diabetic (Novofine Plus) 32 gauge x 1/6 needle Start: 07-23-2022 End: 07-24-2022 Blood Sugar Diagnostic (Onetouch Verio Test Strips) strip Start: 04-03-2023 Pen Needle, Diabetic (Novofine Plus) 32 gauge x 1/6 needle Start: 08-16-2023 Blood Sugar Diagnostic (Onetouch Verio Test Strips) strip Start: 02-13-2022 End: 02-14-2022 Blood Sugar Diagnostic (Onetouch Verio Test Strips) strip Start: 02-14-2022 End: 04-03-2023 Pen Needle, Diabetic (Novofine Plus) 32 gauge x 1/6 needle Start: 09-20-2021 End: 09-20-2021 Pen Needle, Diabetic (Novofine Plus) 32 gauge x 1/6 needle Start: 09-20-2021 End: 09-22-2021 Pen Needle, Diabetic (Novofine Plus) 32 gauge x 1/6 needle Start: 09-22-2021 End: 07-23-2022 Pen Needle, Diabetic (Novofine Plus) 32 gauge x 1/6 needle Start: 07-23-2022 End: 07-24-2022 Pen Needle, Diabetic (Novofine Plus) 32 gauge x 1/6 needle Start: 07-24-2022 End: 07-24-2023 Pen Needle, Diabetic (Novofine Plus) 32 gauge x 1/6 needle Start: 07-24-2023 End: 08-12-2023 Pen Needle, Diabetic (Novofine Plus) 32 gauge x 1/6 needle Start: 08-12-2023 End: 08-16-2023 Blood Sugar Diagnostic (Onetouch Verio Test Strips) strip Start: 04-03-2023 Pen Needle, Diabetic (Novofine Plus) 32 gauge x 1/6 needle Start: 08-16-2023 Blood Sugar Diagnostic (Onetouch Verio Test Strips) strip Start: 02-13-2022 End: 02-14-2022 Blood Sugar Diagnostic (Onetouch Verio Test Strips) strip Start: 02-14-2022 End: 04-03-2023 Pen Needle, Diabetic (Novofine Plus) 32 gauge x 1/6 needle Start: 09-20-2021 End: 09-20-2021 Pen Needle, Diabetic (Novofine Plus) 32 gauge x 1/6 needle Start: 09-20-2021 End: 09-22-2021 Pen Needle, Diabetic (Novofine Plus) 32 gauge x 1/6 needle Start: 09-22-2021 End: 07-23-2022 Pen Needle, Diabetic (Novofine Plus) 32 gauge x 1/6 needle Start: 07-23-2022 End: 07-24-2022 Pen Needle, Diabetic (Novofine Plus) 32 gauge x 1/6 needle Start: 07-24-2022 End: 07-24-2023 Pen Needle, Diabetic (Novofine Plus) 32 gauge x 1/6 needle Start: 07-24-2023 End: 08-12-2023 Pen Needle, Diabetic (Novofine Plus) 32 gauge x 1/6 needle Start: 08-12-2023 End: 08-16-2023 Blood Sugar Diagnostic (Onetouch Verio Test Strips) strip Start: 04-03-2023 Pen Needle, Diabetic (Comfort Ez Pen [place]) 32 gauge x 1/4 needle Start: 10-23-2023 Blood Sugar Diagnostic (Onetouch Verio Test Strips) strip Start: 02-13-2022 End: 02-14-2022 Blood Sugar Diagnostic (Onetouch Verio Test Strips) strip Start: 02-14-2022 End: 04-03-2023 Pen Needle, Diabetic (Comfort Ez Pen [place]) 32 gauge x 1/4 needle Start: 10-23-2023 End: 10-23-2023 Pen Needle, Diabetic (Novofine Plus) 32 gauge x 1/6 needle Start: 09-20-2021 End: 09-20-2021 Pen Needle, Diabetic (Novofine Plus) 32 gauge x 1/6 needle Start: 09-20-2021 End: 09-22-2021 Pen Needle, Diabetic (Novofine Plus) 32 gauge x 1/6 needle Start: 09-22-2021 End: 07-23-2022 Pen Needle, Diabetic (Novofine Plus) 32 gauge x 1/6 needle Start: 07-23-2022 End: 07-24-2022 Pen Needle, Diabetic (Novofine Plus) 32 gauge x 1/6 needle Start: 07-24-2022 End: 07-24-2023 Pen Needle, Diabetic (Novofine Plus) 32 gauge x 1/6 needle Start: 07-24-2023 End: 08-12-2023 Pen Needle, Diabetic (Novofine Plus) 32 gauge x 1/6 needle Start: 08-12-2023 End: 08-16-2023 Pen Needle, Diabetic (Novofine Plus) 32 gauge x 1/6 needle Start: 08-16-2023 End: 10-07-2023 Pen Needle, Diabetic (Novofine Plus) 32 gauge x 1/6 needle Start: 10-07-2023 End: 10-23-2023 Blood Sugar Diagnostic (Onetouch Verio Test Strips) strip Start: 04-03-2023 Pen Needle, Diabetic (Comfort Ez Pen [place]) 32 gauge x 1/4 needle Start: 10-23-2023 Blood Sugar Diagnostic (Onetouch Verio Test Strips) strip Start: 02-13-2022 End: 02-14-2022 Blood Sugar Diagnostic (Onetouch Verio Test Strips) strip Start: 02-14-2022 End: 04-03-2023 Pen Needle, Diabetic (Comfort Ez Pen [place]) 32 gauge x 1/4 needle Start: 10-23-2023 End: 10-23-2023 Pen Needle, Diabetic (Novofine Plus) 32 gauge x 1/6 needle Start: 09-20-2021 End: 09-20-2021 Pen Needle, Diabetic (Novofine Plus) 32 gauge x 1/6 needle Start: 09-20-2021 End: 09-22-2021 Pen Needle, Diabetic (Novofine Plus) 32 gauge x 1/6 needle Start: 09-22-2021 End: 07-23-2022 Pen Needle, Diabetic (Novofine Plus) 32 gauge x 1/6 needle Start: 07-23-2022 End: 07-24-2022 Pen Needle, Diabetic (Novofine Plus) 32 gauge x 1/6 needle Start: 07-24-2022 End: 07-24-2023 Pen Needle, Diabetic (Novofine Plus) 32 gauge x 1/6 needle Start: 07-24-2023 End: 08-12-2023 Pen Needle, Diabetic (Novofine Plus) 32 gauge x 1/6 needle Start: 08-12-2023 End: 08-16-2023 Pen Needle, Diabetic (Novofine Plus) 32 gauge x 1/6 needle Start: 08-16-2023 End: 10-07-2023 Pen Needle, Diabetic (Novofine Plus) 32 gauge x 1/6 needle Start: 10-07-2023 End: 10-23-2023 Blood Sugar Diagnostic (Onetouch Verio Test Strips) strip Start: 05-04-2024 Lancets (Onetouc h Delica Plus Lancet) 33 gauge misc Start: 05-04-2024 Pen Needle, Diabetic (Comfort Ez Pen [place]) 32 gauge x 1/4 needle Start: 10-23-2023 Blood Sugar Diagnostic (Onetouch Verio Test Strips) strip Start: 02-13-2022 End: 02-14-2022 Blood Sugar Diagnostic (Onetouch Verio Test Strips) strip Start: 02-14-2022 End: 04-03-2023 Blood Sugar Diagnostic (Onetouch Verio Test Strips) strip Start: 04-03-2023 End: 05-04-2024 Lancets (Onetouc h Delica Plus Lancet) 33 gauge misc Start: 05-04-2024 End: 05-04-2024 Pen Needle, Diabetic (Comfort Ez Pen [place]) 32 gauge x 1/4 needle Start: 10-23-2023 End: 10-23-2023 Pen Needle, Diabetic (Novofine Plus) 32 gauge x 1/6 needle Start: 09-20-2021 End: 09-20-2021 Pen Needle, Diabetic (Novofine Plus) 32 gauge x 1/6 needle Start: 09-20-2021 End: 09-22-2021 Pen Needle, Diabetic (Novofine Plus) 32 gauge x 1/6 needle Start: 09-22-2021 End: 07-23-2022 Pen Needle, Diabetic (Novofine Plus) 32 gauge x 1/6 needle Start: 07-23-2022 End: 07-24-2022 Pen Needle, Diabetic (Novofine Plus) 32 gauge x 1/6 needle Start: 07-24-2022 End: 07-24-2023 Pen Needle, Diabetic (Novofine Plus) 32 gauge x 1/6 needle Start: 07-24-2023 End: 08-12-2023 Pen Needle, Diabetic (Novofine Plus) 32 gauge x 1/6 needle Start: 08-12-2023 End: 08-16-2023 Pen Needle, Diabetic (Novofine Plus) 32 gauge x 1/6 needle Start: 08-16-2023 End: 10-07-2023 Pen Needle, Diabetic (Novofine Plus) 32 gauge x 1/6 needle Start: 10-07-2023 End: 10-23-2023 Blood Sugar Diagnostic (Onetouch Verio Test Strips) strip Start: 05-04-2024 Lancets (Onetouc h Delica Plus Lancet) 33 gauge misc Start: 05-04-2024 Pen Needle, Diabetic (Comfort Ez Pen [place]) 32 gauge x 1/4 needle Start: 01-04-2025 Blood Sugar Diagnostic (Onetouch Verio Test Strips) strip Start: 02-13-2022 End: 02-14-2022 Blood Sugar Diagnostic (Onetouch Verio Test Strips) strip Start: 02-14-2022 End: 04-03-2023 Blood Sugar Diagnostic (Onetouch Verio Test Strips) strip Start: 04-03-2023 End: 05-04-2024 Lancets (Onetouc h Delica Plus Lancet) 33 gauge misc Start: 05-04-2024 End: 05-04-2024 Pen Needle, Diabetic (Comfort Ez Pen [place]) 32 gauge x 1/4 needle Start: 10-23-2023 End: 10-23-2023 Pen Needle, Diabetic (Comfort Ez Pen [place]) 32 gauge x 1/4 needle Start: 10-23-2023 End: 01-04-2025 Pen Needle, Diabetic (Novofine Plus) 32 gauge x 1/6 needle Start: 09-20-2021 End: 09-20-2021 Pen Needle, Diabetic (Novofine Plus) 32 gauge x 1/6 needle Start: 09-20-2021 End: 09-22-2021 Pen Needle, Diabetic (Novofine Plus) 32 gauge x 1/6 needle Start: 09-22-2021 End: 07-23-2022 Pen Needle, Diabetic (Novofine Plus) 32 gauge x 1/6 needle Start: 07-23-2022 End: 07-24-2022 Pen Needle, Diabetic (Novofine Plus) 32 gauge x 1/6 needle Start: 07-24-2022 End: 07-24-2023 Pen Needle, Diabetic (Novofine Plus) 32 gauge x 1/6 needle Start: 07-24-2023 End: 08-12-2023 Pen Needle, Diabetic (Novofine Plus) 32 gauge x 1/6 needle Start: 08-12-2023 End: 08-16-2023 Pen Needle, Diabetic (Novofine Plus) 32 gauge x 1/6 needle Start: 08-16-2023 End: 10-07-2023 Pen Needle, Diabetic (Novofine Plus) 32 gauge x 1/6 needle Start: 10-07-2023 End: 10-23-2023 Blood Sugar Diagnostic (Onetouch Verio Test Strips) strip Start: 05-04-2024 Lancets (Onetouc h Delica Plus Lancet) 33 gauge misc Start: 05-04-2024 Pen Needle, Diabetic (Comfort Ez Pen [place]) 32 gauge x 1/4 needle Start: 01-04-2025 Blood Sugar Diagnostic (Onetouch Verio Test Strips) strip Start: 02-13-2022 End: 02-14-2022 Blood Sugar Diagnostic (Onetouch Verio Test Strips) strip Start: 02-14-2022 End: 04-03-2023 Blood Sugar Diagnostic (Onetouch Verio Test Strips) strip Start: 04-03-2023 End: 05-04-2024 Lancets (Onetouc h Delica Plus Lancet) 33 gauge misc Start: 05-04-2024 End: 05-04-2024 Pen Needle, Diabetic (Comfort Ez Pen [place]) 32 gauge x 1/4 needle Start: 10-23-2023 End: 10-23-2023 Pen Needle, Diabetic (Comfort Ez Pen [place]) 32 gauge x 1/4 needle Start: 10-23-2023 End: 01-04-2025 Pen Needle, Diabetic (Novofine Plus) 32 gauge x 1/6 needle Start: 09-20-2021 End: 09-20-2021 Pen Needle, Diabetic (Novofine Plus) 32 gauge x 1/6 needle Start: 09-20-2021 End: 09-22-2021 Pen Needle, Diabetic (Novofine Plus) 32 gauge x 1/6 needle Start: 09-22-2021 End: 07-23-2022 Pen Needle, Diabetic (Novofine Plus) 32 gauge x 1/6 needle Start: 07-23-2022 End: 07-24-2022 Pen Needle, Diabetic (Novofine Plus) 32 gauge x 1/6 needle Start: 07-24-2022 End: 07-24-2023 Pen Needle, Diabetic (Novofine Plus) 32 gauge x 1/6 needle Start: 07-24-2023 End: 08-12-2023 Pen Needle, Diabetic (Novofine Plus) 32 gauge x 1/6 needle Start: 08-12-2023 End: 08-16-2023 Pen Needle, Diabetic (Novofine Plus) 32 gauge x 1/6 needle Start: 08-16-2023 End: 10-07-2023 Pen Needle, Diabetic (Novofine Plus) 32 gauge x 1/6 needle Start: 10-07-2023 End: 10-23-2023 Blood Sugar Diagnostic (Onetouch Verio Test Strips) strip Start: 05-04-2024 Lancets (Onetouc h Delica Plus Lancet) 33 gauge misc Start: 05-04-2024 Pen Needle, Diabetic (Comfort Ez Pen [place]) 32 gauge x 1/4 needle Start: 01-04-2025 Blood Sugar Diagnostic (Onetouch Verio Test Strips) strip Start: 02-13-2022 End: 02-14-2022 Blood Sugar Diagnostic (Onetouch Verio Test Strips) strip Start: 02-14-2022 End: 04-03-2023 Blood Sugar Diagnostic (Onetouch Verio Test Strips) strip Start: 04-03-2023 End: 05-04-2024 Lancets (Onetouc h Delica Plus Lancet) 33 gauge misc Start: 05-04-2024 End: 05-04-2024 Pen Needle, Diabetic (Comfort Ez Pen [place]) 32 gauge x 1/4 needle Start: 10-23-2023 End: 10-23-2023 Pen Needle, Diabetic (Comfort Ez Pen [place]) 32 gauge x 1/4 needle Start: 10-23-2023 End: 01-04-2025 Pen Needle, Diabetic (Novofine Plus) 32 gauge x 1/6 needle Start: 09-20-2021 End: 09-20-2021 Pen Needle, Diabetic (Novofine Plus) 32 gauge x 1/6 needle Start: 09-20-2021 End: 09-22-2021 Pen Needle, Diabetic (Novofine Plus) 32 gauge x 1/6 needle Start: 09-22-2021 End: 07-23-2022 Pen Needle, Diabetic (Novofine Plus) 32 gauge x 1/6 needle Start: 07-23-2022 End: 07-24-2022 Pen Needle, Diabetic (Novofine Plus) 32 gauge x 1/6 needle Start: 07-24-2022 End: 07-24-2023 Pen Needle, Diabetic (Novofine Plus) 32 gauge x 1/6 needle Start: 07-24-2023 End: 08-12-2023 Pen Needle, Diabetic (Novofine Plus) 32 gauge x 1/6 needle Start: 08-12-2023 End: 08-16-2023 Pen Needle, Diabetic (Novofine Plus) 32 gauge x 1/6 needle Start: 08-16-2023 End: 10-07-2023 Pen Needle, Diabetic (Novofine Plus) 32 gauge x 1/6 needle Start: 10-07-2023 End: 10-23-2023 Blood Sugar Diagnostic (Onetouch Verio Test Strips) strip Start: 05-04-2024 Lancets (Onetouc h Delica Plus Lancet) 33 gauge misc Start: 05-04-2024 Pen Needle, Diabetic (Comfort Ez Pen [place]) 32 gauge x 1/4 needle Start: 01-04-2025 Blood Sugar Diagnostic (Onetouch Verio Test Strips) strip Start: 02-13-2022 End: 02-14-2022 Blood Sugar Diagnostic (Onetouch Verio Test Strips) strip Start: 02-14-2022 End: 04-03-2023 Blood Sugar Diagnostic (Onetouch Verio Test Strips) strip Start: 04-03-2023 End: 05-04-2024 Lancets (Onetouc h Delica Plus Lancet) 33 gauge misc Start: 05-04-2024 End: 05-04-2024 Pen Needle, Diabetic (Comfort Ez Pen [place]) 32 gauge x 1/4 needle Start: 10-23-2023 End: 10-23-2023 Pen Needle, Diabetic (Comfort Ez Pen [place]) 32 gauge x 1/4 needle Start: 10-23-2023 End: 01-04-2025 Pen Needle, Diabetic (Novofine Plus) 32 gauge x 1/6 needle Start: 09-20-2021 End: 09-20-2021 Pen Needle, Diabetic (Novofine Plus) 32 gauge x 1/6 needle Start: 09-20-2021 End: 09-22-2021 Pen Needle, Diabetic (Novofine Plus) 32 gauge x 1/6 needle Start: 09-22-2021 End: 07-23-2022 Pen Needle, Diabetic (Novofine Plus) 32 gauge x 1/6 needle Start: 07-23-2022 End: 07-24-2022 Pen Needle, Diabetic (Novofine Plus) 32 gauge x 1/6 needle Start: 07-24-2022 End: 07-24-2023 Pen Needle, Diabetic (Novofine Plus) 32 gauge x 1/6 needle Start: 07-24-2023 End: 08-12-2023 Pen Needle, Diabetic (Novofine Plus) 32 gauge x 1/6 needle Start: 08-12-2023 End: 08-16-2023 Pen Needle, Diabetic (Novofine Plus) 32 gauge x 1/6 needle Start: 08-16-2023 End: 10-07-2023 Pen Needle, Diabetic (Novofine Plus) 32 gauge x 1/6 needle Start: 10-07-2023 End: 10-23-2023 Blood Sugar Diagnostic (Onetouch Verio Test Strips) strip Start: 05-04-2024 Lancets (Onetouc h Delica Plus Lancet) 33 gauge misc Start: 05-04-2024 Pen Needle, Diabetic (Comfort Ez Pen [place]) 32 gauge x 1/4 needle Start: 01-04-2025 Blood Sugar Diagnostic (Onetouch Verio Test Strips) strip Start: 02-13-2022 End: 02-14-2022 Blood Sugar Diagnostic (Onetouch Verio Test Strips) strip Start: 02-14-2022 End: 04-03-2023 Blood Sugar Diagnostic (Onetouch Verio Test Strips) strip Start: 04-03-2023 End: 05-04-2024 Lancets (Onetouc h Delica Plus Lancet) 33 gauge misc Start: 05-04-2024 End: 05-04-2024 Pen Needle, Diabetic (Comfort Ez Pen [place]) 32 gauge x 1/4 needle Start: 10-23-2023 End: 10-23-2023 Pen Needle, Diabetic (Comfort Ez Pen [place]) 32 gauge x 1/4 needle Start: 10-23-2023 End: 01-04-2025 Pen Needle, Diabetic (Novofine Plus) 32 gauge x 1/6 needle Start: 09-20-2021 End: 09-20-2021 Pen Needle, Diabetic (Novofine Plus) 32 gauge x 1/6 needle Start: 09-20-2021 End: 09-22-2021 Pen Needle, Diabetic (Novofine Plus) 32 gauge x 1/6 needle Start: 09-22-2021 End: 07-23-2022 Pen Needle, Diabetic (Novofine Plus) 32 gauge x 1/6 needle Start: 07-23-2022 End: 07-24-2022 Pen Needle, Diabetic (Novofine Plus) 32 gauge x 1/6 needle Start: 07-24-2022 End: 07-24-2023 Pen Needle, Diabetic (Novofine Plus) 32 gauge x 1/6 needle Start: 07-24-2023 End: 08-12-2023 Pen Needle, Diabetic (Novofine Plus) 32 gauge x 1/6 needle Start: 08-12-2023 End: 08-16-2023 Pen Needle, Diabetic (Novofine Plus) 32 gauge x 1/6 needle Start: 08-16-2023 End: 10-07-2023 Pen Needle, Diabetic (Novofine Plus) 32 gauge x 1/6 needle Start: 10-07-2023 End: 10-23-2023 Blood Sugar Diagnostic (Onetouch Verio Test Strips) strip Start: 05-04-2024 Lancets (Onetouc h Delica Plus Lancet) 33 gauge misc Start: 05-04-2024 Pen Needle, Diabetic (Comfort Ez Pen [place]) 32 gauge x 1/4 needle Start: 01-04-2025 Blood Sugar Diagnostic (Onetouch Verio Test Strips) strip Start: 02-13-2022 End: 02-14-2022 Blood Sugar Diagnostic (Onetouch Verio Test Strips) strip Start: 02-14-2022 End: 04-03-2023 Blood Sugar Diagnostic (Onetouch Verio Test Strips) strip Start: 04-03-2023 End: 05-04-2024 Lancets (Onetouc h Delica Plus Lancet) 33 gauge misc Start: 05-04-2024 End: 05-04-2024 Pen Needle, Diabetic (Comfort Ez Pen [place]) 32 gauge x 1/4 needle Start: 10-23-2023 End: 10-23-2023 Pen Needle, Diabetic (Comfort Ez Pen [place]) 32 gauge x 1/4 needle Start: 10-23-2023 End: 01-04-2025 Pen Needle, Diabetic (Novofine Plus) 32 gauge x 1/6 needle Start: 09-20-2021 End: 09-20-2021 Pen Needle, Diabetic (Novofine Plus) 32 gauge x 1/6 needle Start: 09-20-2021 End: 09-22-2021 Pen Needle, Diabetic (Novofine Plus) 32 gauge x 1/6 needle Start: 09-22-2021 End: 07-23-2022 Pen Needle, Diabetic (Novofine Plus) 32 gauge x 1/6 needle Start: 07-23-2022 End: 07-24-2022 Pen Needle, Diabetic (Novofine Plus) 32 gauge x 1/6 needle Start: 07-24-2022 End: 07-24-2023 Pen Needle, Diabetic (Novofine Plus) 32 gauge x 1/6 needle Start: 07-24-2023 End: 08-12-2023 Pen Needle, Diabetic (Novofine Plus) 32 gauge x 1/6 needle Start: 08-12-2023 End: 08-16-2023 Pen Needle, Diabetic (Novofine Plus) 32 gauge x 1/6 needle Start: 08-16-2023 End: 10-07-2023 Pen Needle, Diabetic (Novofine Plus) 32 gauge x 1/6 needle Start: 10-07-2023 End: 10-23-2023 Start: 05-05-2024 Blood Sugar Diagnostic (Onetouch Verio Test Strips) strip Start: 02-24-2025 Lancets (Onetouc h Delica Plus Lancet) 33 gauge misc Start: 05-04-2024 Pen Needle, Diabetic (Comfort Ez Pen [place]) 32 gauge x 1/4 needle Start: 01-04-2025 [...] misc Start: 05-04-2024 End: 05-04-2024 Pen Needle, Diabetic (Comfort Ez Pen [place]) 32 gauge x 1/4 needle Start: 10-23-2023 End: 10-23-2023 Pen Needle, Diabetic (Comfort Ez Pen [place]) 32 gauge x 1/4 needle Start: 10-23-2023 End: 01-04-2025 Pen Needle, Diabetic (Novofine Plus) 32 gauge x 1/6 needle Start: 09-20-2021 End: 09-20-2021 Pen Needle, Diabetic (Novofine Plus) 32 gauge x 1/6 needle Start: 09-20-2021 End: 09-22-2021 Pen Needle, Diabetic (Novofine Plus) 32 gauge x 1/6 needle Start: 09-22-2021 End: 07-23-2022 Pen Needle, Diabetic (Novofine Plus) 32 gauge x 1/6 needle Start: 07-23-2022 End: 07-24-2022 Pen Needle, Diabetic (Novofine Plus) 32 gauge x 1/6 needle Start: 07-24-2022 End: 07-24-2023 Pen Needle, Diabetic (Novofine Plus) 32 gauge x 1/6 needle Start: 07-24-2023 End: 08-12-2023 Pen Needle, Diabetic (Novofine Plus) 32 gauge x 1/6 needle Start: 08-12-2023 End: 08-16-2023 Pen Needle, Diabetic (Novofine Plus) 32 gauge x 1/6 needle Start: 08-16-2023 End: 10-07-2023 Pen Needle, Diabetic (Novofine Plus) 32 gauge x 1/6 needle Start: 10-07-2023 End: 10-23-2023 Blood Sugar Diagnostic (Onetouch Verio Test Strips) strip Start: 02-24-2025 Lancets (Onetouc h Delica Plus Lancet) 33 gauge misc Start: 05-04-2024 Pen Needle, Diabetic (Comfort Ez Pen [place]) 32 gauge x 1/4 needle Start: 01-04-2025 [...] misc Start: 05-04-2024 End: 05-04-2024 Pen Needle, Diabetic (Comfort Ez Pen [place]) 32 gauge x 1/4 needle Start: 10-23-2023 End: 10-23-2023 Pen Needle, Diabetic (Comfort Ez Pen [place]) 32 gauge x 1/4 needle Start: 10-23-2023 End: 01-04-2025 Pen Needle, Diabetic (Novofine Plus) 32 gauge x 1/6 needle Start: 09-20-2021 End: 09-20-2021 Pen Needle, Diabetic (Novofine Plus) 32 gauge x 1/6 needle Start: 09-20-2021 End: 09-22-2021 Pen Needle, Diabetic (Novofine Plus) 32 gauge x 1/6 needle Start: 09-22-2021 End: 07-23-2022 Pen Needle, Diabetic (Novofine Plus) 32 gauge x 1/6 needle Start: 07-23-2022 End: 07-24-2022 Pen Needle, Diabetic (Novofine Plus) 32 gauge x 1/6 needle Start: 07-24-2022 End: 07-24-2023 Pen Needle, Diabetic (Novofine Plus) 32 gauge x 1/6 needle Start: 07-24-2023 End: 08-12-2023 Pen Needle, Diabetic (Novofine Plus) 32 gauge x 1/6 needle Start: 08-12-2023 End: 08-16-2023 Pen Needle, Diabetic (Novofine Plus) 32 gauge x 1/6 needle Start: 08-16-2023 End: 10-07-2023 Pen Needle, Diabetic (Novofine Plus) 32 gauge x 1/6 needle Start: 10-07-2023 End: 10-23-2023 Blood Sugar Diagnostic (Onetouch Verio Test Strips) strip Start: 02-24-2025 Lancets (Onetouc h Delica Plus Lancet) 33 gauge misc Start: 05-04-2024 Pen Needle, Diabetic (Comfort Ez Pen [place]) 32 gauge x 1/4 needle Start: 01-04-2025 [...] misc Start: 05-04-2024 End: 05-04-2024 Pen Needle, Diabetic (Comfort Ez Pen [place]) 32 gauge x 1/4 needle Start: 10-23-2023 End: 10-23-2023 Pen Needle, Diabetic (Comfort Ez Pen [place]) 32 gauge x 1/4 needle Start: 10-23-2023 End: 01-04-2025 Pen Needle, Diabetic (Novofine Plus) 32 gauge x 1/6 needle Start: 09-20-2021 End: 09-20-2021 Pen Needle, Diabetic (Novofine Plus) 32 gauge x 1/6 needle Start: 09-20-2021 End: 09-22-2021 Pen Needle, Diabetic (Novofine Plus) 32 gauge x 1/6 needle Start: 09-22-2021 End: 07-23-2022 Pen Needle, Diabetic (Novofine Plus) 32 gauge x 1/6 needle Start: 07-23-2022 End: 07-24-2022 Pen Needle, Diabetic (Novofine Plus) 32 gauge x 1/6 needle Start: 07-24-2022 End: 07-24-2023 Pen Needle, Diabetic (Novofine Plus) 32 gauge x 1/6 needle Start: 07-24-2023 End: 08-12-2023 Pen Needle, Diabetic (Novofine Plus) 32 gauge x 1/6 needle Start: 08-12-2023 End: 08-16-2023 Pen Needle, Diabetic (Novofine Plus) 32 gauge x 1/6 needle Start: 08-16-2023 End: 10-07-2023 Pen Needle, Diabetic (Novofine Plus) 32 gauge x 1/6 needle Start: 10-07-2023 End: 10-23-2023 Blood Sugar Diagnostic (Onetouch Verio Test Strips) strip Start: 02-24-2025 Lancets (Onetouc h Delica Plus Lancet) 33 gauge misc Start: 05-04-2024 Pen Needle, Diabetic (Comfort Ez Pen [place]) 32 gauge x 1/4 needle Start: 01-04-2025 [...] misc Start: 05-04-2024 End: 05-04-2024 Pen Needle, Diabetic (Comfort Ez Pen [place]) 32 gauge x 1/4 needle Start: 10-23-2023 End: 10-23-2023 Pen Needle, Diabetic (Comfort Ez Pen [place]) 32 gauge x 1/4 needle Start: 10-23-2023 End: 01-04-2025 Pen Needle, Diabetic (Novofine Plus) 32 gauge x 1/6 needle Start: 09-20-2021 End: 09-20-2021 Pen Needle, Diabetic (Novofine Plus) 32 gauge x 1/6 needle Start: 09-20-2021 End: 09-22-2021 Pen Needle, Diabetic (Novofine Plus) 32 gauge x 1/6 needle Start: 09-22-2021 End: 07-23-2022 Pen Needle, Diabetic (Novofine Plus) 32 gauge x 1/6 needle Start: 07-23-2022 End: 07-24-2022 Pen Needle, Diabetic (Novofine Plus) 32 gauge x 1/6 needle Start: 07-24-2022 End: 07-24-2023 Pen Needle, Diabetic (Novofine Plus) 32 gauge x 1/6 needle Start: 07-24-2023 End: 08-12-2023 Pen Needle, Diabetic (Novofine Plus) 32 gauge x 1/6 needle Start: 08-12-2023 End: 08-16-2023 Pen Needle, Diabetic (Novofine Plus) 32 gauge x 1/6 needle Start: 08-16-2023 End: 10-07-2023 Pen Needle, Diabetic (Novofine Plus) 32 gauge x 1/6 needle Start: 10-07-2023 End: 10-23-2023 Blood Sugar Diagnostic (Onetouch Verio Test Strips) strip Start: 02-24-2025 Lancets (Onetouc h Delica Plus Lancet) 33 gauge misc Start: 05-04-2024 Pen Needle, Diabetic (Comfort Ez Pen [place]) 32 gauge x 1/4 needle Start: 01-04-2025 [...] misc Start: 05-04-2024 End: 05-04-2024 Pen Needle, Diabetic (Comfort Ez Pen [place]) 32 gauge x 1/4 needle Start: 10-23-2023 End: 10-23-2023 Pen Needle, Diabetic (Comfort Ez Pen [place]) 32 gauge x 1/4 needle Start: 10-23-2023 End: 01-04-2025 Pen Needle, Diabetic (Novofine Plus) 32 gauge x 1/6 needle Start: 09-20-2021 End: 09-20-2021 Pen Needle, Diabetic (Novofine Plus) 32 gauge x 1/6 needle Start: 09-20-2021 End: 09-22-2021 Pen Needle, Diabetic (Novofine Plus) 32 gauge x 1/6 needle Start: 09-22-2021 End: 07-23-2022 Pen Needle, Diabetic (Novofine Plus) 32 gauge x 1/6 needle Start: 07-23-2022 End: 07-24-2022 Pen Needle, Diabetic (Novofine Plus) 32 gauge x 1/6 needle Start: 07-24-2022 End: 07-24-2023 Pen Needle, Diabetic (Novofine Plus) 32 gauge x 1/6 needle Start: 07-24-2023 End: 08-12-2023 Pen Needle, Diabetic (Novofine Plus) 32 gauge x 1/6 needle Start: 08-12-2023 End: 08-16-2023 Pen Needle, Diabetic (Novofine Plus) 32 gauge x 1/6 needle Start: 08-16-2023 End: 10-07-2023 Pen Needle, Diabetic (Novofine Plus) 32 gauge x 1/6 needle Start: 10-07-2023 End: 10-23-2023 Blood Sugar Diagnostic (Onetouch Verio Test Strips) strip Start: 02-24-2025 Lancets (Onetouc h Delica Plus Lancet) 33 gauge misc Start: 05-04-2024 Pen Needle, Diabetic (Comfort Ez Pen [place]) 32 gauge x 1/4 needle Start: 01-04-2025 [...] misc Start: 05-04-2024 End: 05-04-2024 Pen Needle, Diabetic (Comfort Ez Pen [place]) 32 gauge x 1/4 needle Start: 10-23-2023 End: 10-23-2023 Pen Needle, Diabetic (Comfort Ez Pen [place]) 32 gauge x 1/4 needle Start: 10-23-2023 End: 01-04-2025 Pen Needle, Diabetic (Novofine Plus) 32 gauge x 1/6 needle Start: 09-20-2021 End: 09-20-2021 Pen Needle, Diabetic (Novofine Plus) 32 gauge x 1/6 needle Start: 09-20-2021 End: 09-22-2021 Pen Needle, Diabetic (Novofine Plus) 32 gauge x 1/6 needle Start: 09-22-2021 End: 07-23-2022 Pen Needle, Diabetic (Novofine Plus) 32 gauge x 1/6 needle Start: 07-23-2022 End: 07-24-2022 Pen Needle, Diabetic (Novofine Plus) 32 gauge x 1/6 needle Start: 07-24-2022 End: 07-24-2023 Pen Needle, Diabetic (Novofine Plus) 32 gauge x 1/6 needle Start: 07-24-2023 End: 08-12-2023 Pen Needle, Diabetic (Novofine Plus) 32 gauge x 1/6 needle Start: 08-12-2023 End: 08-16-2023 Pen Needle, Diabetic (Novofine Plus) 32 gauge x 1/6 needle Start: 08-16-2023 End: 10-07-2023 Pen Needle, Diabetic (Novofine Plus) 32 gauge x 1/6 needle Start: 10-07-2023 End: 10-23-2023 Blood Sugar Diagnostic (Onetouch Verio Test Strips) strip Start: 02-24-2025 Lancets (Onetouc h Delica Plus Lancet) 33 gauge misc Start: 05-04-2024 Pen Needle, Diabetic (Comfort Ez Pen [place]) 32 gauge x 1/4 needle Start: 01-04-2025 [...] misc Start: 05-04-2024 End: 05-04-2024 Pen Needle, Diabetic (Comfort Ez Pen [place]) 32 gauge x 1/4 needle Start: 10-23-2023 End: 10-23-2023 Pen Needle, Diabetic (Comfort Ez Pen [place]) 32 gauge x 1/4 needle Start: 10-23-2023 End: 01-04-2025 Pen Needle, Diabetic (Novofine Plus) 32 gauge x 1/6 needle Start: 09-20-2021 End: 09-20-2021 Pen Needle, Diabetic (Novofine Plus) 32 gauge x 1/6 needle Start: 09-20-2021 End: 09-22-2021 Pen Needle, Diabetic (Novofine Plus) 32 gauge x 1/6 needle Start: 09-22-2021 End: 07-23-2022 Pen Needle, Diabetic (Novofine Plus) 32 gauge x 1/6 needle Start: 07-23-2022 End: 07-24-2022 Pen Needle, Diabetic (Novofine Plus) 32 gauge x 1/6 needle Start: 07-24-2022 End: 07-24-2023 Pen Needle, Diabetic (Novofine Plus) 32 gauge x 1/6 needle Start: 07-24-2023 End: 08-12-2023 Pen Needle, Diabetic (Novofine Plus) 32 gauge x 1/6 needle Start: 08-12-2023 End: 08-16-2023 Pen Needle, Diabetic (Novofine Plus) 32 gauge x 1/6 needle Start: 08-16-2023 End: 10-07-2023 Pen Needle, Diabetic (Novofine Plus) 32 gauge x 1/6 needle Start: 10-07-2023 End: 10-23-2023 Goals Date Patient Goal Desired Activity /State Functional Status Date Assessment Result Facility 06-15-2025 Functional status Ambulates [facility] Work Phone: 01-14-2025 Functional status Chair [facility] Work Phone: 01-13-2025 Functional status None [facility] Work Phone: 01-04-2022 Functional status Ambulates;Up ad jesusita [facility] Work Phone: Mental Status Date Assessment Result Facility 06-15-2025 Cognitive function Voice/Name [facility] Work Phone: 06-15-2025 Cognitive function Appropriate [facility] Work Phone: 03-29-2025 Cognitive function Voice/Name [facility] Work Phone: 01-14-2025 Cognitive function Voice/Name [facility] Work Phone: 12-03-2023 Cognitive function Voice/Name [facility] Work Phone: 08-20-2023 Cognitive function Level Of Cons ciousness Awake;Alert;Appropriate [facility] Work Phone: 01-08-2022 Cognitive function Level Of Cons ciousness Awake;Alert;Appropriate;Follo ws Commands;Responds to vocal stimuli [facility] Work Phone: 01-03-2022 Cognitive function Voice/Name [facility] Work Phone: 01-02-2022 Cognitive function Level Of Cons ciousness Awake;Alert;Follows Commands [facility] Work Phone: Clinical Notes 08-16-2001 to 06-22-2025 Note Date & Type Note Facility 06-22-2025 Progress note Note Date/Time June 22, 2025 9:43am [facility] [address] [place] [address] OFFICE VISIT Date of Service: 06/21/25 MR#: [id number] Acct: [id number] Name: COLEMAN DAVIES Rep #: [id number] : 1950 Provider: Dr. Amita Sinclair MD Age/Sex: 75/M Location: 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 Required: No Accompanied by: Is patient in pain?: No Allergies ticagrelor (From Brilinta) Adverse Reaction (Severe, Verified 06/21/25 07:47) Other Medications ?Medication ?Instructions ?Recorded ?Confirmed ?Type ascorbic acid (vitamin C) 500 mg 500 mg PO DAILY SUPPL EMENT 07/05/21 06/21/25 History tablet aspirin 81 mg tablet,delayed 81 mg PO DAILY HEART HEAL TH 07/05/21 06/21/25 History release (Adult Low Dose Aspirin) cyanocobalamin (vitamin B-12) 1,000 mcg PO DAILY SUPPL EMENT 07/05/21 06/21/25 History 5,000 mcg disintegrating tablet cholecalciferol (vitamin D3) 25 25 mcg PO BID SUPPLEME NT 07/20/21 06/21/25 History mcg (1,000 unit) tablet lancets 33 gauge ([facility] ea 05/04/2403/10 Rx Plus Lancet) atorvastatin 80 mg tablet 80 mg PO QHS CHOLESTEROL #90 08/10/24 06/21/25 Rx TABLETS carvedilol 12.5 mg tablet 12.5 mg PO BID HEART #180 ta bs 08/10/24 06/21/25 Rx lisinopril 20 mg tablet 20 mg PO DAILY BP #90 TABLET S 08/10/24 06/21/25 Rx Held on 06/15/25. Instructions: Hold for kidney failure. metformin 500 mg tablet 1,000 mg (2 x 500 mg) PO BID BLOOD 08/10/24 06/21/25 Rx Held on 06/15/25. SUGARS #360 tabs Instructions: Hold for kidney failure pen needle, diabetic 32 gauge x #100 ea 01/04/2506/21 Rx 1/ (Comfort EZ Pen [place]) finasteride 5 mg tablet 5 mg PO QHS PROSTATE 01/27/ 5 06/21/25 History blood sugar diagnostic (OneTouch #100 ea 02/24/2503/10 Rx Verio test strips) glimepiride 4 mg tablet 4 mg PO BID BLOOD SUGARS #90 tabs 02/25/25 06/21/25 Rx Held on 06/15/25. Instructions: Because of kidney failure tamsulosin 0.4 mg capsule 0.4 mg PO QHS PROSTATE #90 c aps 04/09/25 06/21/25 Rx loratadine 10 mg tablet 10 mg PO QDAY ALLERGY 06/21/25 History prasugrel HCl 10 mg tablet 10 mg PO QDAY HEART #90 tab s 05/18/25 06/21/25 Rx (Effient) Held on 06/15/25. Instructions: Hold for 5 days. amlodipine 5 mg tablet 5 mg PO QHS BP 05/28/2503/10 History famotidine 20 mg tablet 20 mg PO QHS GERD 05/28/25 1 History isosorbide mononitrate 30 mg 30 mg PO QHS HEART 06/21/25 History tablet,extended release 24 hr buspirone 10 mg tablet 10 mg PO TID 30 days #90 tab s 06/15/25 06/21/25 Rx insulin aspart U-100 100 unit/mL 10 unit (0.1 mL) subc ut TID #15 mL 06/15/25 06/21/25 Rx (3 mL) subcutaneous pen (Novolog FlexPen U-100 Insulin aspart) insulin glargine U-300 conc 300 36 unit (0.12 mL) subc ut DAILY 06/15/25 06/21/25 Rx unit/mL (1.5 mL) subcutaneous pen BLOOD SUGARS #4.5 mL (Toujeo SoloStar U-300 Insulin) sennosides 8.6 mg tablet 17.2 mg (2 x 8.6 mg) PO BID PRN 06/15/25 06/21/25 Rx PRN constipation #0 tabs blood-glucose sensor (FreeStyle #6 ea 06/16/25 5 Rx Vamshi 3 Plus Sensor device) Have you fallen in the past year?: No Nurse's Note: Admission Setting: Acute Inpatient hospital stay Discharging to Home Date of Admission: 06/05/2025 Date of Discharge: 06/15/2025 Admitting Dx: JINA, unknown etiology Discharge Dx: Intractable N/V, hyperkalemia, JINA, elevated troponin Date d/c summary reviewed and scanned to medical record: 06/16/2025 Full Medication Reconciliation was completed on 06/16/2025 Contact made with patients [facility] Medical History Cancer Alcohol use History of steroid therapy Back pain TIA (transient ischemic attack) Gastric reflux Shortness of breath on exertion Hypertension Leg cramps History of stress test History of echocardiogram History of Holter monitoring Diarrhea Lower urinary tract symptoms (LUTS) Acute urinary retention Hypothyroidism Lumbar radiculopathy, acute Near syncope Chest pain Wears glasses Insulin dependent diabetes mellitus High cholesterol Stroke/cerebrovascular accident Dietary restriction Former smoker Cardiology follow-up encounter History of [...] coronary artery (~08/28/01) Atherosclerotic heart disease of [place] coronary artery without angina pectoris Surgical History History of cardiac catheterization History of lumbar discectomy Hx of oral surgery History of coronary artery stent placement History [...] Does not use ibuprofen daily. HPI HPI Chief Complaint: Fatigue, Decreased energy Details: COLEMAN DAVIES, is a 75 M who presents to the office today for hospital follow-up. Patient was apparently at [facility], about 10-11 days total. He presented to theemergency room after having what appeared to be some form of a GI presumed viralgastroenteritis he apparently gone out to eat with his spouse a couple of nightsearlier. Had a bout of emesis afterwards and then vomiting again the next day. Did not eat or drink the next following day and had continued vomiting because he was continuing to still feel poorly, he was taken to the emergency room. [place] excerpt ER note: Nausea/Vomiting Informant: patient and spouse/S.O. Narrative Narrative: 74-year-old diabetic male went out the with his 2 nights ago, and about 3 hours later he did not feel well and vomited. No blood. No abdominal pain or diarrhea. The next morning, he vomited again, he ate very little throughout theday, and then all this past night he has been up vomiting recurrently. He states some of the vomit looked a little brown but nothing that looked bilious/green, or coffee-ground emesis, or bloody. No diarrhea, no abdominal pain, no chest pain, no dyspnea, cough, fevers or chills, or any other symptoms. No history of any abdominal surgeries in the past. In the emergency room, his BUN and creatinine were noted to be elevated, 92 and 8.7. His baseline creatinine is approximately 1.4-1.6. That has been stable since I have been seeing him the last several years. At the time of admission, his diabetic management was insulin glargine, metformin at 1000 mg p.o. twice daily, glimepiride. He had been on this regimen per endocrinology from the timeof my seeing him and was not adjusted during my time of seeing him. He had followed with endocrinology in [place] however since being here, he had elected to follow with internal medicine as he stated that the technical fellow did not have a good reason for why his A1c was elevated despite his blood sugar readings actually being well within reasonable ranges. They have tried multipledifferent medical regimens previously and his A1c always remained somewhere around 10. He has been monitoring blood sugars at home routinely and again there is been a discrepancy between those readings and his A1c consistently therefore his medical regimen had not been adjusted. In addition, he has severe vascular disease, carotid artery occlusion, history of CVA, history of CAD, history of stents. He had been on low-dose [place] inhibitor for renal protection as well as blood pressure control in addition to amlodipine, carvedilol managed through cardiology. He had been on Effient as well for cardiology and vascular medicine who has been following him for his carotid artery disease. There was a planned upcoming carotid endarterectomy nowon hold. He had been on high-dose statin 80 mg of atorvastatin long-term. In addition he is on finasteride, and tamsulosin per urology. In the hospital, he had started on dialysis as his creatinine did not improve with fluids alone. He ultimately underwent biopsy. I am not privy to those results and they do not appear to be on the chart. He had been seen in consultation with Dr. Santiago, nephrology. Since being discharged he has been continuing dialysis. He was discharged on Saturday last week. He is on Saturday, and Saturday dialysis regimen. His last dialysis was Saturday. Review of systems per chart. Physical exam. Vital signs on chart. Sclera are clear. TMs are unremarkable with normal light reflexes. Canals are unremarkable. Posterior pharynx is unremarkable. No cervical or supraclavicular lymph nodes enlarged or tender. No clear thyromegaly. No thyroid nodules readily palpable. New tunneled dialysis catheter right upper chest. No evidence of infection at site. Lungs are without wheeze, rhonchi, rales. No E/A changes are heard. Heart is regular. Not tachycardic. No clear murmur, rub, or gallop is identified. The abdomen is soft. Bowel sounds are present. Nontender nondistended abdomen. Noclear palpable masses in the abdomen. No significant leg edema. ROS Const Constitutional: Positive for fatigue, decreased energy and sleep problems (Trouble staying asleep ); No body ache, chills, excessive sweating, fever(s), frequent falls, headache(s),snoring, weakness or change in appetite Eyes Eyes: No blurry vision, change in vision, eye pain or Light sensitivity ENT ENT: No abnormal hearing, ear or mastoid pain, tinnitus, nasal congestion, headache(s), neck pain or sore throat Resp Respiratory: No cough, shortness of breath, snoring or wheezing Cardio Cardiology: No chest pain at rest, chest pain with exertion, excessive sweating,dyspnea on exertion, lightheadedness, orthopnea or palpitations Gastro GI: No abdominal pain, change in bowel habits, constipation, cramping, diarrhea,nausea/dyspepsia or vomiting Genitourinary Male: No burning urination, painful urination, urinary incontinence or urinary frequency Musc Musculoskeletal: No abnormal gait, joint pain, back pain, limited range of motion, muscle weakness, neck pain or numbness Skin Skin: No dry skin, redness, lesions, itchy eyes, rash or wounds Neuro Neurology: Positive for unsteady gait/balance; No abnormal gait, abnormal hearing, weakness, frequent falls, headache(s), memory loss or numbness Psych Psychiatric: No anxiety, No change in appetite, No depression, No memory loss and No Thoughts of harming yourself/Others Endo Endocrine: Positive for fatigue; No cold intolerance, excessive sweating, flushing, heat intolerance, increased thirst/drinking or increased hunger Aller/Imm Allergy/Immunologic: No itchy eyes, seasonal allergy symptoms, hives or wheezing Porter/Lymp Hematologic/Lymphatic: No easy bleeding or easy bruising Coding Level of Care Code Off vis,est,level 4 Time Spent (min) 40 Assessment and Plan Assessment and Plan Orders: Orders Basic Metabolic Profile (BMP) 06/21/25 N17.9 - Acute kidney failure, unspecified, N18.31 - Chronic kidney disease, stage 3a CBC W/Diff, Automated 06/21/25 I25.10 - Atherosclerotic heart disease of [place]ary artery without angina pectoris, N17.9 - Acute kidney failure, unspecified, N18.31 - Chronic kidney disease, stage 3a Referrals Endocrinology E11.59 - Type 2 diabetes mellitus with other circulatory complications, E87.21 - Acute metabolic acidosis, N17.9 - Acute kidney failure, unspecified, N18.31 - Chronic kidney disease, stage 3a Plan Details Additional Comments: Patient presents as above. He had stable chronic stage III kidney disease for the last several years. Actually since I have been seeing him. He had developed what appears to be some form of a gastroenteritis process, with nausea, vomiting, dehydration leading to acute renal failure. He has been on dialysis. Last dialysis was Saturday, today being Saturday. Last labs were on . Hopefully he will get rebound of his kidney function. Biopsy is pending reportedly. I will obtain BMP, CBC today. Hopefully his creatinine would be back down or at least stable at which point he would have a better prognosis towards recovery. I will try and reach out to his voucher clerk once the labs are available. He does need to follow-up with nephrology in the futurealthough they have not been able to get an appointment as of yet. He does have follow-up with cardiology upcoming. Suffice it to say, carotid endarterectomy is now on hold. He is off of metformin and lisinopril as would be appropriate at this point. Tho those medications should not be resumed. He has been arranged for [facility] vamshi 3 device for closer monitoring. He had again been previously on glimepiride as well which is on hold and I think should stay on hold for now. He is currently on insulin glargine 36 units in the a.m. as previous and NovoLog has been initiated, 10 units 3 times daily with meals. He does bring in some recent blood sugars which have been quite variable, considerably higher than previous, ranging between 150 and upwards of 300. At this point, I suggest once again he see endocrinology. 40-minute visit. Clinical Quality Measures Falls Risk Screening/Assistive Devices Have you fallen in the past year?: No 06/22/25 0943 <Electronically signed by Briseyda cano MD> Date _ Briseyda Sinclair MD Cosigner Signature: Date (if applicable) CC: ~ [facility] Work Phone: [phone] Discharge summary Author Fawad Bates [facility] Note Date/Time June 15, 2025 2:02pm [facility] Medical Records Department [address] [place] [address] Discharge Summary 06/15/25 1356 MR#: [id number] Acct: [id number] Name: COLEMAN DAVIES Rep #:[id number] : 1950 74 From: Fawad Hall PCP: Dr. Briseyda Sinclair MD Status:ADM IN Location: [place] [address] Providers Date of Admission: 06/05/25 Date of Discharge: 06/15/25 Primary Care Physician: Dr. Briseyda Sinclair MD Consultations 06/05/25 06:53 Consult: Nephrology Routine Consulting Provider: Yohannes Santiago Reason for Consult: JINA, hyper K EMERGENT Consult: No Notified: Yes Date Notified: 06/05/25 Time Notified: 05:45 Method of Notification: ED Physician Initiated 06/12/25 12:40 Consult: General Surgery Routine Consulting Provider: Tanika Bear Reason for Consult: Tunneled Alysis catheter on 06/14/2024, JINA on dialysis. EMERGENT Consult: No Notified: Yes Date Notified: 06/12/25 Time Notified: 12:41 Method of Notification: Verbal Reason For Visit: INTRACTABLE N/V, HYPERK, JINA, ELEVATED TROP Diagnosis Discharge Diagnosis (1) Acute renal failure: Status: Acute Code(s): N17.9 - Acute kidney failure, unspecified (2) Hyperkalemia, diminished renal excretion: Status: Acute Code(s): E87.5 - Hyperkalemia (3) Acute metabolic acidosis: Status: Acute Code(s): E87.21 - Acute metabolic acidosis (4) Essential hypertension: Status: Chronic Code(s): I10 - Essential (primary) hypertension (5) Type 2 diabetes mellitus: Status: Chronic Code(s): E11.9 - Type 2 diabetes mellitus without complications Qualifiers: 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 Required further transfer to ICU for acute hyperkalemia and that downgraded to PCU JINA on CKD stage IIIb - Baseline creatinine is between 1.4 and 1.6 as of March 2025 - Urine output seems to be improving -Renal biopsy for Saturday if renal function is not recovering -Effient on hold okay per discussion with Dr. Garrison but will need help for 7days prior to biopsy - Continue Bolaños and monitor for renal recovery - Serologies were unremarkable - Nephrology following-appreciate input - Will decide on ongoing needs in the next 24 hours 06/11: On admission patient creatinine was 8.74, creatinine 10.7 and then fluctuates, today 7.70. BUN fluctuates between 70-90. [employer] Studies Professor report reviewed. Patient urine output is good. Hemodialysis today. Serologies are negative. Plan for kidney biopsy on Saturday. Likely tentative discharge on Saturday. 06/12: Patient had about 2500 mL of urine output. No significant fluid removal on dialysis here yesterday but mainly for electrolyte support. Discussed with the voucher clerk we will surgery. Plan for tunneled dialysis catheter and renalbiopsy on Saturday informed by the patient and his . Surgery consulted for tunneled dialysis catheter. 06/13: Good urine output. Bolaños catheter was removed yesterday. Was evaluated by voucher clerk. Plan for right IJ dialysis catheter removal tomorrow and then tunneled dialysis catheter. They also plan for kidney biopsy tomorrow. Creatinine not improving. Serum sodium 148, chloride 112. Potassium normal. BUN 72 06/14: Right neck IJ temporary dialysis catheter was removed. Patient was frustrated in the morning try to convince because of postponement of kidney biopsy. Patient had tunneled Alysis catheter and undergoing hemodialysis in theafternoon. Hemostasis good. Discussed with IR regarding postponement of kidneybiopsy because of time conflict. 06/15: Patient had CT-guided biopsy of left inferior pole. No significant pain tenderness bleeding or hematoma. Dressing is dry. Patient had dialysis yesterday. Next visit scheduled on as an outpatient. Discussed with the voucher clerk. Kidney biopsy will be discussed when report available as an outpatient by the voucher clerk Anion gap metabolic acidosis - Much improved and is improving with improved renal function 06/13 anion gap is normal 14. Acute on chronic anemia - Stable - No signs of acute drop at this time - Will continue to monitor - Baseline appears to be between 11 and 13 - 06/11 hemoglobin 8.9 decreased from 12.0. His baseline hemoglobin is about 12 in November 2024. Not on any scheduled anticoagulant. Only on baby aspirin. 06/12: H&H 8.4/24.9%. 06/14 H&H 8.7/26%. Platelet count 348K. 06/15: H&H 8.2/25.1%. Platelet count in normal. Hold prasugrel for 5 days as patient had kidney biopsy today. Continue baby aspirin. CAD/carotid artery stenosis/essential hypertension/hyperlipidemia/history of TIA - No stents within the last 12 months - Effient on hold for renal biopsy --> discussed with cardiology - continue home aspirin - Continue home carvedilol - continue home amlodipine - Lisinopril on hold due to renal dysfunction - Continue isosorbide mononitrate - Follows with vascular and cardiology as an outpatient - BP is overall improved 06/05; blood pressure is good 06/15: Blood pressure is good. Continue holding lisinopril. DM-2 - Hold metformin - Hold glimepiride - SSI 06/12: Blood sugar is variable 117 and then 332. Humalog insulin added. 06/15: Blood sugar acceptable limit. Prescription given for Humalog insulin. Continue Insulin glargine/Toujeo Solostar. Patient has cutaneous glucometer sensor GERD - Continue famotidine Seasonal allergies - Continue home loratadine 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 - Bolaños in place DVT prophylaxis - Continue subcu heparin Anxiety: Buspirone 10 10 mg 3 times daily. CODE STATUS - Full code Discharge medication reconciliation done. Discharge follow-up instructions completed. Discharge process discussed with the patient and all questions wereanswered to patient's satisfaction. Follow with PCP in 1 to 2 weeks Total time spent, exact 35 minutes on discharge meds reconciliation, examination, coordination of care with nurses and ancillary staff, review of imaging and blood test and discussion with the patient on follow-up instructions. Medications at Discharge Home Medications ascorbic acid (vitamin C) 500 mg tablet 500 mg PO DAILY SUPPLEMENT 07/05/21 aspirin 81 mg tablet,delayed release (Adult Low Dose Aspirin) 81 mg PO DAILY HEART HEALTH 07/05/21 cyanocobalamin (vitamin B-12) 5,000 mcg disintegrating tablet 1,000 mcg PO DAILYSUPPLEMENT 07/05/21 cholecalciferol (vitamin D3) 25 mcg (1,000 unit) tablet 25 mcg PO BID [id number]/04/21 lancets 33 gauge (PlynkedTouch Delica Plus Lancet) #100 ea 05/04/24 atorvastatin 80 mg tablet 80 mg PO QHS CHOLESTEROL #90 TABLETS 08/10/24 carvedilol 12.5 mg tablet 12.5 mg PO BID HEART #180 tabs 08/10/24 lisinopril 20 mg tablet 20 mg PO DAILY BP #90 TABLETS 08/10/24 Held on 06/15/25. Instructions: Hold for kidney failure. metformin 500 mg tablet 1,000 mg (2 x 500 mg) PO BID BLOOD SUGARS #360 tabs 08/10/24 Held on 06/15/25. Instructions: Hold for kidney failure pen needle, diabetic 32 gauge x 1/4 (Comfort EZ Pen [place]) #100 ea 01/04/25 finasteride 5 mg tablet 5 mg PO QHS PROSTATE 01/27/25 blood sugar diagnostic (PlynkedTouch Verio test strips) #100 ea 02/24/25 glimepiride 4 mg tablet 4 mg PO BID BLOOD SUGARS #90 tabs 02/25/25 Held on 06/15/25. Instructions: Because of kidney failure tamsulosin 0.4 mg capsule 0.4 mg PO QHS PROSTATE #90 caps 04/09/25 loratadine 10 mg tablet 10 mg PO QDAY ALLERGY 04/28/25 prasugrel HCl 10 mg tablet (Effient) 10 mg PO QDAY HEART #90 tabs 05/18/25 Held on 06/15/25. Instructions: Hold for 5 days. amlodipine 5 mg tablet 5 mg PO QHS BP 05/28/25 famotidine 20 mg tablet 20 mg PO QHS GERD 05/28/25 isosorbide mononitrate 30 mg tablet,extended release 24 hr 30 mg PO QHS HEART 05/28/25 buspirone 10 mg tablet 10 mg PO TID 30 days #90 tabs 06/15/25 insulin glargine U-300 conc 300 unit/mL (1.5 mL) subcutaneous pen (Toujeo SoloStar U-300 Insulin) 36 unit (0.12 mL) subcut DAILY BLOOD SUGARS #4.5 mL 06/15/25 insulin lispro 100 unit/mL subcutaneous pen (Humalog KwikPen (U-100) Insulin) 10unit (0.1 mL) subcut TIDAC 1 month #15 mL 06/15/25 sennosides 8.6 mg tablet 17.2 mg (2 x 8.6 mg) PO BID PRN PRN constipation #0 tabs 06/15/25 Physical Exam Narrative Seen and examined Patient had left kidney biopsy today in the morning. wants to go home. Discussed with the voucher clerk. Discussed with the patient and regarding discharge instruction and medications. Physical exam General: Alert, Oriented x3, Cooperative HEENT: Atraumatic, PERRLA, EOMI, Normocephalic. Oral: No Gingival or Mucosal Lesions/ Ulcerations Neck: Right IJ dialysis removed. Supple, No JVD, Negative Carotid Bruits Chest wall/Lungs: Right chest wall tunneled dialysis catheter. Air entry diminished in bilateral lung bases. No crepitation/rhonchi Cardiovascular: Regular rate and rhythm, Normal S1,S2, No M/G/R Abdomen: Bowel Sounds Present, Soft, Non Tender, Non-Distended : Clear urine. No dysuria. No renal angle tenderness. No suprapubic tenderness. Extremities: No edema, Capillary Refill Less than 3 Seconds Skin: No bleeding or hematoma right IJ dialysis center. Left kidney biopsy siteposteriorly, dressing is good. No hematoma. Musculoskeletal: No Tenderness to Palpation of Joints or Extremities Neurological: Cranial nerves II-XII grossly intact, DTR 2+/4. No acute focal neurological deficit. Psych/Mental Status: Appropriate, normal Weight / BMI Weight Weight: 165 lb 12.602 oz Body Mass Index (BMI) 22.4 ABG / Lab / Microbiology Data 06/15/25 03:33 06/15/25 03:33 Laboratory: Laboratory Results - last 24 hr 06/14/25 13:50: Hep Bs Antigen Nonreactive 06/14/25 17:18: POC Glucose 344 H 06/14/25 20:57: POC Glucose 289 H 06/15/25 03:33: WBC 6.5, RBC 2.58 L, Hgb 8.2 L, Hct 25.1 L, MCV 97.3 H, MCH 31.8, MCHC 32.7, RDW Std Deviation 45.3 H, RDW Coeff of Rich 12.8, Plt Count 348,MPV 10.3, Immature Gran % (Auto) 0.500, Neut % (Auto) 59.3, Lymph % (Auto) 19.8,[place] % (Auto) 13.2 H, Eos % (Auto) 6.9 H, Baso % (Auto) 0.3, Absolute Neuts (auto) 3.9, Absolute Lymphs (auto) 1.29, Nucleated RBC % 0, Sodium 147 H, Potassium 4.7, Chloride 111 H, Carbon Dioxide 22.5, Anion Gap 13, BUN 57 H, Creatinine 4.01 H, Estim Creat Clear Calc 17.19 L, Est GFR (MDRD) Non-Af 15 L, BUN/Creatinine Ratio 14.2, Glucose 246 H, Calcium 9.0 06/15/25 10:53: POC Glucose 290 H Microbiology: Microbiology 06/05/25 12:10 Urine Catheter - Bolaños Urine Culture - Final Culture exhibits no growth. Radiography Diagnostic Testing: Radiology Impression Biopsy CT 06/15/25 09:00 IMPRESSION: Successful CT-guided left inferior pole renal biopsy. Reading Location: [place] [address] D/C Instructions Weight Bearing Status: Weight bearing as tolerated Call your doctor if you observe: Fever of 101 or Higher, Coldness, Increased Pain, Numbness or Tingling, Change in Color, Inability to urinate, Inability to have a bowel movement, Shortness of breath, Dizziness, Fainting spells, Swellingin the ankles, Chest pain, Prolonged hiccupping, Increased palpitations (irregular heartbeat) and Calf discomfort DC O2, CPAP, BIPAP Needs Home O2 Discharge instructions: No When: IN 2 WEEKS Meaningful Use Info Meaningful Use Meaningful Use Diagnoses (Choose all that apply): None applicable Discharge Plan Admission Admit Date/Time: 06/05/25 05:44 Primary Reason for Your Visit: JINA, etiology unclear Attending Provider: Fawad Bates Primary Care Provider: Briseyda Sinclair Consulting Providers: Tabby Zuniga; Richi Hope; Yohannes [place]; Candy Vo; Tanika Bear Instructions Patient Instructions: RAD medical services assistant Instructions for Kidney Biopsy, RAD RN Procedural Sedation Discharge Orders/Prescriptions Prescriptions: New buspirone 10 mg tablet 10 mg PO TID 30 Days Qty: 90 0RF sennosides 8.6 mg tablet 17.2 mg PO BID PRN PRN (Reason: constipation) Qty: 0 0RF Rx Instructions: Uyqo-xgk-hqyvjwp. 2 tablet twice daily as needed for constipation. insulin lispro [Humalog KwikPen Insulin] 100 unit/mL Insulin Pen 10 unit subcut TIDAC 30 Days Qty: 15 2RF Rx Instructions: Hold if glucose less than 120 mg/dl Continued cyanocobalamin (vitamin B-12) 5,000 mcg tablet,disintegrating 1,000 mcg PO DAILY ascorbic acid (vitamin C) 500 mg tablet 500 mg PO DAILY aspirin [Adult Low Dose Aspirin] 81 mg tablet,delayed release (DR/EC) 81 mg PO DAILY cholecalciferol (vitamin D3) 25 mcg (1,000 unit) tablet 25 mcg PO BID finasteride 5 mg tablet 5 mg PO QHS loratadine 10 mg tablet 10 mg PO QDAY isosorbide mononitrate 30 mg tablet extended release 24 hr 30 mg PO QHS amlodipine 5 mg tablet 5 mg PO QHS Patient Comments: PT TAKES AT BEDTIME famotidine 20 mg tablet 20 mg PO QHS insulin glargine U-300 conc [Toujeo SoloStar U-300 Insulin] 300 unit/mL (1.5 mL) insulin pen 36 unit subcut DAILY Qty: 4.5 5RF Rx Instructions: Hold if glucose less than 90 mg/dl (DME) lancets [OneTouch Delica Plus Lancet] 33 gauge misc See Rx Instructions .Route Qty: 100 0RF Rx Instructions: As directed Twice Daily to monitor blood glucose for DM II carvedilol 12.5 mg tablet 12.5 mg PO BID Qty: 180 3RF atorvastatin 80 mg tablet 80 mg PO QHS Qty: 90 3RF (DME) pen needle, diabetic [Comfort EZ Pen [place]] 32 gauge x 1/4 needle See Rx Instructions .Route Qty: 100 5RF Rx Instructions: once daily to administer insulin.. 6mm pen needle (DME) OneTouch Verio test strips Strip See Rx Instructions .ROUTE .MEDSUPPLY Qty: 100 11RF Rx Instructions: use as directed twice daily t monitor blood glucose for type 2 DM tamsulosin 0.4 mg capsule 0.4 mg PO QHS Qty: 90 3RF Held lisinopril 20 mg tablet 20 mg PO DAILY Qty: 90 3RF Hold Instructions: Hold for kidney failure. metformin 500 mg tablet 1,000 mg PO BID Qty: 360 3RF Hold Instructions: Hold for kidney failure glimepiride 4 mg tablet 4 mg PO BID Qty: 90 3RF Hold Instructions: Because of kidney failure prasugrel HCl [Effient] 10 mg tablet 10 mg PO QDAY Qty: 90 3RF Hold Instructions: Hold for 5 days. Discontinued magnesium glycinate 100 mg tablet 400 mg PO QHS Referrals / Follow Up: Yohannes [place] MD [Med Staff - Consulting, Nephrology] - Within 1 Week Referral Note: Next hemodialysis on is as an outpatient Briseyda Sinclair MD [Primary Care Provider, Internal Medicine - [facility]] Disposition Disposition (needs filled in before D/C Order can be placed): Home, Self Care Charges/Coding Visit Charges Inpatient E&M: 42936 Disch Hosp >30min 06/15/25 1402 <Electronically signed by Fawad Bates MD> Cosigner Signature (if applicable): CC: Dr. Yohannes Santiago MD; Dr. Briseyda Sinclair MD; Dr. Fawad Bates MD~ Signed [facility] Work Phone: [phone]) 874-639109-30-2025 Discharge summary Author Fawad Bates [facility] Note Date/Time June 15, 2025 1:56pm [facility] Medical Records Department [address] [place] [address] Instructions for Home/Discharge Instructions 06/15/25 1052 MR#: [id number] Acct: [id number] Name: COLEMAN DAVIES Rep #:[id number] : 1950 74 From: Fawad Hall PCP: Dr. Briseyda Sinclair MD Status:ADM IN Discharge Instructions DC O2, CPAP, BIPAP needs Home O2 Discharge instructions: No Dressing / Incision Discharge Activity: Return to Normal Activity Weight Bearing Status: Weight bearing as tolerated Dressing / Incision Call your doctor if you observe: Fever of 101 or Higher, Coldness, Increased Pain, Numbness or Tingling, Change in Color, Inability to urinate, Inability to have a bowel movement, Shortness of breath, Dizziness, Fainting spells, Swellingin the ankles, Chest pain, Prolonged hiccupping, Increased palpitations (irregular heartbeat) and Calf discomfort Follow Up Care When: IN 2 WEEKS Test Results: Test results from this visit will be discussed in further detail at your follow- up appointment, if applicable. Discharge Plan Admission Admit Date/Time: 06/05/25 05:44 Primary Reason for Your Visit: JINA, etiology unclear Attending Provider: Fawad Bates Primary Care Provider: Briseyda Sinclair Consulting Providers: Tabby Zuniga; Richi Hope; Yohannes [place]; Candy Vo; Tanika Bear Instructions Patient Instructions: RAD medical services assistant Instructions for Kidney Biopsy, RAD RN Procedural Sedation Discharge Orders/Prescriptions Prescriptions: New buspirone 10 mg tablet 10 mg PO TID 30 Days Qty: 90 0RF sennosides 8.6 mg tablet 17.2 mg PO BID PRN PRN (Reason: constipation) Qty: 0 0RF Rx Instructions: Nzvs-vnv-gyvhzzd. 2 tablet twice daily as needed for constipation. insulin lispro [Humalog KwikPen Insulin] 100 unit/mL Insulin Pen 10 unit subcut TIDAC 30 Days Qty: 15 2RF Rx Instructions: Hold if glucose less than 120 mg/dl Continued cyanocobalamin (vitamin B-12) 5,000 mcg tablet,disintegrating 1,000 mcg PO DAILY ascorbic acid (vitamin C) 500 mg tablet 500 mg PO DAILY aspirin [Adult Low Dose Aspirin] 81 mg tablet,delayed release (DR/EC) 81 mg PO DAILY cholecalciferol (vitamin D3) 25 mcg (1,000 unit) tablet 25 mcg PO BID finasteride 5 mg tablet 5 mg PO QHS loratadine 10 mg tablet 10 mg PO QDAY isosorbide mononitrate 30 mg tablet extended release 24 hr 30 mg PO QHS amlodipine 5 mg tablet 5 mg PO QHS Patient Comments: PT TAKES AT BEDTIME famotidine 20 mg tablet 20 mg PO QHS insulin glargine U-300 conc [Toujeo SoloStar U-300 Insulin] 300 unit/mL (1.5 mL) insulin pen 36 unit subcut DAILY Qty: 4.5 5RF Rx Instructions: Hold if glucose less than 90 mg/dl (DME) lancets [OneTouch Delica Plus Lancet] 33 gauge misc See Rx Instructions .Route Qty: 100 0RF Rx Instructions: As directed Twice Daily to monitor blood glucose for DM II carvedilol 12.5 mg tablet 12.5 mg PO BID Qty: 180 3RF atorvastatin 80 mg tablet 80 mg PO QHS Qty: 90 3RF (DME) pen needle, diabetic [Comfort EZ Pen [place]] 32 gauge x 1/4 needle See Rx Instructions .Route Qty: 100 5RF Rx Instructions: once daily to administer insulin.. 6mm pen needle (DME) OneTouch Verio test strips Strip See Rx Instructions .ROUTE .MEDSUPPLY Qty: 100 11RF Rx Instructions: use as directed twice daily t monitor blood glucose for type 2 DM tamsulosin 0.4 mg capsule 0.4 mg PO QHS Qty: 90 3RF Held lisinopril 20 mg tablet 20 mg PO DAILY Qty: 90 3RF Hold Instructions: Hold for kidney failure. metformin 500 mg tablet 1,000 mg PO BID Qty: 360 3RF Hold Instructions: Hold for kidney failure glimepiride 4 mg tablet 4 mg PO BID Qty: 90 3RF Hold Instructions: Because of kidney failure prasugrel HCl [Effient] 10 mg tablet 10 mg PO QDAY Qty: 90 3RF Hold Instructions: Hold for 5 days. Discontinued magnesium glycinate 100 mg tablet 400 mg PO QHS Referrals / Follow Up: Yohannes [place] MD [Med Staff - Consulting, Nephrology] - Within 1 Week Referral Note: Next hemodialysis on is as an outpatient Briseyda Sinclair MD [Primary Care Provider, Internal Medicine - [facility]] Disposition Disposition (needs filled in before D/C Order can be placed): Home, Self Care 06/15/25 1356<Electronically signed by Fawad Bates MD>Fawad Bates MD CC: Dr. Tabby Zuniga MD; Dr. Richi Hope MD; Dr. Yohannes Santiago MD; Dr. Candy Vo DO; Dr. Briseyda Sinclair MD; Dr. Tanika Bear MD ~ Signed [facility] Work Phone: [phone]) [phone] Progress note Author Yohannes Santiago [facility] Note Date/Time June 15, 2025 12:52pm [facility] Medical Records Department [address] [place] [address] Progress Note - Nephrology 06/15/25 1251 MR#: [id number] Acct: [id number] Name: COLEMAN DAVIES Rep #:[id number] : 1950 74 From: Yohannes doran MD PCP: Dr. Briseyda Sinclair MD Status:ADM IN Location: [place] [address] Subjective Subjective s/p biopsy Objective Data Objective Data Vital Signs: Vital Signs Temp Pulse Resp BP Pulse Ox O2 Del Method O2 Flow Rate 98.3 F 77 14 142/73 H 97 Room Air 2 06/15/25 08:46 06/15/25 10:20 06/15/25 10:20 06/15/25 10:20 06/15/25 10:20 06/15/25 10:20 06/15/25 10:00 Oxygen Flow Rate (L/min) 2 Oxygen Delivery Method Room Air Weight: 75.2 kg Body Mass Index (BMI) 22.4 Intake & Output: Intake and Output for Last 24 Hours 06/13/25 06/14/25 06/15/25 23:59 23:59 23:59 Intake Total 840 / 840 680 / 680 252 / 252 Output Total 2450 / 3500 3555 / 3555 1625 / 1625 Balance -1610 / -2660 -2875 / -2875 -1373 / -1373 Lab / Micro Data 06/15/25 03:33 06/15/25 03:33 Labs: Laboratory Results - last 24 hr 06/14/25 13:50: Hep Bs Antigen Nonreactive 06/14/25 17:18: POC Glucose 344 H 06/14/25 20:57: POC Glucose 289 H 06/15/25 03:33: WBC 6.5, RBC 2.58 L, Hgb 8.2 L, Hct 25.1 L, MCV 97.3 H, MCH 31.8, MCHC 32.7, RDW Std Deviation 45.3 H, RDW Coeff of Rich 12.8, Plt Count 348,MPV 10.3, Immature Gran % (Auto) 0.500, Neut % (Auto) 59.3, Lymph % (Auto) 19.8,[place] % (Auto) 13.2 H, Eos % (Auto) 6.9 H, Baso % (Auto) 0.3, Absolute Neuts (auto) 3.9, Absolute Lymphs (auto) 1.29, Nucleated RBC % 0, Sodium 147 H, Potassium 4.7, Chloride 111 H, Carbon Dioxide 22.5, Anion Gap 13, BUN 57 H, Creatinine 4.01 H, Estim Creat Clear Calc 17.19 L, Est GFR (MDRD) Non-Af 15 L, BUN/Creatinine Ratio 14.2, Glucose 246 H, Calcium 9.0 06/15/25 10:53: POC Glucose 290 H Micro: Microbiology 06/05/25 12:10 Urine Catheter - Bolaños Urine Culture - Final Culture exhibits no growth. Radiography Diagnostic Testing: Radiology Impression Chest X-Ray 06/14/25 12:32 IMPRESSION: No radiographic evidence of acute cardiopulmonary disease. Interval placement of right-sided IJ catheter. No pneumothorax. Reading Location: [facility]-[address] 06/15/25 09:00 IMPRESSION: Successful CT-guided left inferior pole renal biopsy. Reading Location: [facility]- Rhythm Strip Rhythm Strip: Sinus Rhythm Rate: 85 Ectopy: None Physical Exam Narrative Alert awake oriented x 3 no obvious distress no pallor no icterus no JVD s1s2 no murmurs lungs clear abdomen soft no organomegaly no edema no cyanosis Assessment & Plan Assessment/Plan (1) Acute renal failure: (2) Hyperkalemia, diminished renal excretion: (3) Acute metabolic acidosis: (4) Essential hypertension: (5) Type 2 diabetes mellitus: QUALIFIERS: Diabetes mellitus halfway insulin use: without halfway use Diabetes mellitus complication status: with circulatory complication Diabetes mellitus complication detail: with other circulatory complications Qualified Code(s): E11.59 - Type 2 diabetes mellitus with other circulatory complications PLAN: Plan Assessment/Plan: The patient is a 74-year-old male with past history of CKD stage G3b, type 2 diabetes mellitus, hypertension, CAD status post PCI, PAD, stroke, hypothyroidism, BPH, iron deficiency anemia, and hyperlipidemia. Patient presented to hospital with 2-day history of intractable nausea/vomiting,anorexia and generalized weakness. Patient was found to have acute kidney injury on chronic kidney disease associated with hyperkalemia and severe metabolic acidosis. Nephrology is asked to the patient because of JINA, metabolic acidosis and hyperkalemia. Acute kidney injury on chronic kidney disease stage G3b. Baseline creatinine about 1.4-1.6 as of March 2025. Presented with 2 days of nausea. Found to have renal failure, worsening. Creatinine is up to 10. Initial urine analysis with protein Renal ultrasound without any hydronephrosis Was not particularly hypotensive. Denies any rhjg-alj-xbnyvkb supplements. He started taking a probiotic due to diarrhea over the last 6 weeks or so. started HD 06/07/25 HD today. see orders Urine output has picked up. Will hold dialysis after today and monitor labs. If renal function gets better, he will not need any further intervention. If renal function does not improve, he will need kidney biopsy. Tentatively tunneled dialysis catheter also. Discussed with family at bedside. Renal diet for now. 06/10/25. urine output is very good. 1.8 L. cr ok. lytes are ok. serologies are negative. possible its all ATN. repeat labs in am. further decision on HD depending on labs tomorrow. dw family bedside 06/11/25. Cr higher. kind of surprising since his urine output is pretty good. HDtoday. serologies are all negative. will plan for biopsy on saturday. likely TDC on saturday. will dw hospitalist 06/12/25 -volume, electrolytes ok today -plan on renal biopsy on saturday along with TDC -continue with HD MWF for now 06/13 -volume electrolyts stable -still no improvement in solute clearance -plan for HD and renal biopsy tomorrow 06/15. Overall doing well. Status post biopsy this morning. Extremely anxious to go home. Serologies are negative hence ANCA vasculitis unlikely. Kidney biopsy results probably will not be back till at least with electron microscopy. From nephrology standpoint, can be discharged and will arrange follow-up for the biopsy results. Discussed with family. Discussed with hospitalist. 06/15/25 2832 <Electronically signed by Yohannes Santiago MD> Cosigner Signature (if applicable): CC: ~ Signed [facility] Work Phone: [phone]) 415-159509-30-2025 Hospital Discharge instructionsAdditional Instructions Date of Discharge: 06/15/25[facility] Work Phone: [phone]) 961-875209-30-2025 [facility]09-30-2025 Radiology Diagnostic study [facility]09-29-2025 Progress note Author Fawad Bates [facility] Note Date/Time June 14, 2025 5:10pm [facility] Medical Records Department [address] [place] [id number] Progress Note - Hospitalist 06/14/25 1706 MR#: [id number] Acct: [id number] Name: COLEMAN DAVIES Rep #:[id number] : 1950 74 From: Fawad Hall PCP: Dr. Briseyda [place] MD Status:ADM IN Location: [place] [address] Reason for Visit Chief Complaint: Intractable N/V Objective Data Objective Data Vital Signs: Vital Signs Temp Pulse Resp BP Pulse Ox O2 Del Method O2 Flow Rate 97.8 F 78 14 155/64 H 98 Room Air 2 06/14/25 16:32 06/14/25 16:32 06/14/25 16:32 06/14/25 16:32 06/14/25 14:03 06/14/25 16:32 06/14/25 10:32 Oxygen Flow Rate (L/min) 2 Oxygen Delivery Method Room Air Weight: 170 lb 12.573 oz Body Mass Index (BMI) 23.1 Intake & Output: Intake and Output for Last 24 Hours 09/27/25 09/28/25 09/29/25 23:59 23:59 23:59 Intake Total 480 / 480 840 / 840 100 / 100 Output Total 1200 / 1900 2450 / 3500 1635 / 1635 Balance -720 / -1420 -1610 / -2660 -1535 / -1535 Lab / Micro Data 06/14/25 05:02 06/14/25 05:02 Labs: Laboratory Results - last 24 hr 06/13/25 21:14: POC Glucose 251 H 06/14/25 05:02: WBC 7.8, RBC 2.78 L, Hgb 8.7 L, Hct 26.5 L, MCV 95.3 H, MCH 31.3, MCHC 32.8, RDW Std Deviation 44.7 H, RDW Coeff of Rich 12.7, Plt Count 348,MPV 9.8, Immature Gran % (Auto) 0.400, Neut % (Auto) 62.2, Lymph % (Auto) 17.6 L, [place] % (Auto) 12.5 H, Eos % (Auto) 6.8 H, Baso % (Auto) 0.5, Absolute Neuts (auto) 4.9, Absolute Lymphs (auto) 1.38, Nucleated RBC % 0, PT 13.5, INR 1.0, APTT 26.8, Sodium 149 H, Potassium 4.3, Chloride 114 H, Carbon Dioxide 20.5 L, Anion Gap 15, BUN 77 H, Creatinine 5.97 H, Estim Creat Clear Calc 11.76 L, Est GFR (MDRD) Non-Af 9 L, BUN/Creatinine Ratio 12.8, Glucose 104 H, Calcium 9.0 06/14/25 06:07: POC Glucose 129 H 06/14/25 10:10: POC Glucose 162 H Micro: Microbiology 06/05/25 12:10 Urine Catheter - Bolaños Urine Culture - Final Culture exhibits no growth. Radiography Diagnostic Testing: Radiology Impression Chest X-Ray 06/14/25 12:32 IMPRESSION: No radiographic evidence of acute cardiopulmonary disease. Interval placement of right-sided IJ catheter. No pneumothorax. Reading Location: [place] [address] Rhythm Strip Rhythm Strip: Sinus Rhythm Rate: 85 Ectopy: None Physical Exam Narrative Seen and examined Patient was very upset in the morning with cancellation of kidney biopsy. Actually there was conflict of timing with both, tunnel dialysis catheter and kidney biopsy scheduled in the morning therefore kidney biopsy postponed for tomorrow. Patient also needs to be dialyzed after hemolysis catheter to see thepatency. Discussed with the . Patient undergoing dialysis. Physical exam General: Alert, Oriented x3, Cooperative HEENT: Atraumatic, PERRLA, EOMI, Normocephalic. Oral: No Gingival or Mucosal Lesions/ Ulcerations Neck: Right IJ dialysis removed. Supple, No JVD, Negative Carotid Bruits Chest wall/Lungs: Right chest wall tunneled dialysis catheter. Air entry diminished in bilateral lung bases. No crepitation/rhonchi Cardiovascular: Regular rate and rhythm, Normal S1,S2, No M/G/R Abdomen: Bowel Sounds Present, Soft, Non Tender, Non-Distended : Clear urine. No dysuria. No renal angle tenderness. No suprapubic tenderness. Extremities: No edema, Capillary Refill Less than 3 Seconds Skin: No rashes, No breakdown Musculoskeletal: No Tenderness to Palpation of Joints or Extremities Neurological: Cranial nerves II-XII grossly intact, DTR 2+/4. No acute focal neurological deficit. Psych/Mental Status: Mild frustrated Assessment & Plan Assessment/Plan (1) Hypoglycemia: (2) Acute metabolic acidosis: (3) Hyperkalemia, diminished renal excretion: (4) Acute renal failure: (5) Acute uremia: PLAN: Plan 74-year-old gentleman was admitted with intractable nausea and vomiting and found to have JINA with hyperkalemia, admitted on the monitored bed. Required further transfer to ICU for acute hyperkalemia and that downgraded to PCU JINA on CKD stage IIIb - Baseline creatinine is between 1.4 and 1.6 as of March 2025 - Urine output seems to be improving -Renal biopsy for Saturday if renal function is not recovering -Effient on hold okay per discussion with Dr. Garrison but will need help for 7days prior to biopsy - Continue Bolaños and monitor for renal recovery - Serologies were unremarkable - Nephrology following-appreciate input - Will decide on ongoing needs in the next 24 hours 06/11: On admission patient creatinine was 8.74, creatinine 10.7 and then fluctuates, today 7.70. BUN fluctuates between 70-90. [employer] Professor report reviewed. Patient urine output is good. Hemodialysis today. Serologies are negative. Plan for kidney biopsy on Saturday. Likely tentative discharge on Saturday. 06/12: Patient had about 2500 mL of urine output. No significant fluid removal on dialysis here yesterday but mainly for electrolyte support. Discussed with the voucher clerk we will surgery. Plan for tunneled dialysis catheter and renalbiopsy on Saturday informed by the patient and his . Surgery consulted for tunneled dialysis catheter. 06/13: Good urine output. Bolaños catheter was removed yesterday. Was evaluated by voucher clerk. Plan for right IJ dialysis catheter removal tomorrow and then tunneled dialysis catheter. They also plan for kidney biopsy tomorrow. Creatinine not improving. Serum sodium 148, chloride 112. Potassium normal. BUN 72 06/14: Right neck IJ temporary dialysis catheter was removed. Patient was frustrated in the morning try to convince because of postponement of kidney biopsy. Patient had tunneled Alysis catheter and undergoing hemodialysis in theafternoon. Hemostasis good. Discussed with IR regarding postponement of kidneybiopsy because of time conflict. Anion gap metabolic acidosis - Much improved and is improving with improved renal function 06/13 anion gap is normal 14. Acute on chronic anemia - Stable - No signs of acute drop at this time - Will continue to monitor - Baseline appears to be between 11 and 13 - 06/11 hemoglobin 8.9 decreased from 12.0. His baseline hemoglobin is about 12 in November 2024. Not on any scheduled anticoagulant. Only on baby aspirin. 06/12: H&H 8.4/24.9%. 06/14 H&H 8.7/26%. Platelet count 348K. CAD/carotid artery stenosis/essential hypertension/hyperlipidemia/history of TIA - No stents within the last 12 months - Effient on hold for renal biopsy --> discussed with cardiology - continue home aspirin - Continue home carvedilol - continue home amlodipine - Lisinopril on hold due to renal dysfunction - Continue isosorbide mononitrate - Follows with vascular and cardiology as an outpatient - BP is overall improved 06/05; blood pressure is good DM-2 - Hold metformin - Hold glimepiride - SSI 06/12: Blood sugar is variable 117 and then 332. Humalog insulin added. 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 CODE STATUS - Full code Charges/Coding Visit Charges Inpatient E&M: 56270 Subs Hosp L2 06/14/25 1710 <Electronically signed by Fawad Bates MD> Cosigner Signature (if applicable): CC: ~ Signed [facility] Work Phone: [phone]) 596-819009-29-2025 Procedure [facility] 06-14-2025 Procedure [facility]09-29-2025 Consult note Author Geovanni Pathak [facility] Note Date/Time June 15, 2025 4:18pm [facility] Medical Records Department [address] [facility] [place] [place] [address] Anesthesia Postop Eval II 06/14/25 1312 MR#: [id number] Acct: [id number] Name: COLEMAN DAVIES Rep #:[id number] : 1950 74 From: Geovanni Hall PCP: Dr. Briseyda Sinclair MD Status:ADM IN Y Race: C Location: [place] [address] 2-1 Anesthesia Postop Eval I Sum Postop Eval Completion status Anesthesia document: Postop Eval 1 completed: Yes Anesthesia Postop Eval I Summary Anesthesia Postop Eval I Summary: Anesthesia Postop Eval I: Assessment Summary Airway patent Yes 06/14/25 12:50 AGING BOX HAND.TDOB Spontaneous unlabored Yes 06/14/25 12:50 AGING BOX HAND.TDOB respirations Mental status nausea No 06/14/25 12:50 AGING BOX HAND.TDOB Vomiting No 06/14/25 12:50 AGING BOX HAND.TDOB Anesthesia Postop Eval I: Fluid Summary Crystalloid volume administer 200 06/14/25 12:50 AGING BOX HAND.TDOB (ml) Colloids volume administered ( ml) Blood Product volume administered (ml) Total IV fluid infused 200 06/14/25 12:50 AGING BOX HAND.TDOB Anesthesia Postop Eval I: Summary Notes Anesthesia Complication No 06/14/25 12:50 AGING BOX HAND.TDOB Anesthesia Complication Comment: Post-operative progress note Anesthesia: Postop Eval II Evaluation Mental status: Awake and Calm Pain Level: 1 nausea: No Vomiting: No Complications Anesthesia Complication: No 06/14/25 1312 <Electronically signed by Geovanni Pathak MD> Date _ [facility] Pathak [facility] Signature: Date CC: ~ Signed [facility] Work Phone: [phone] 318-464809-29-2025 Radiology Diagnostic study [facility]09-29-2025 Consult note Author Geovanni Pathak [facility] Note Date/Time June 14, 2025 10:46am [facility] Medical Records Department [address] [place] [address] Pre-Anesthesia Evaluation 06/14/25 1029 MR#: [id number] Acct: [id number] Name: COLEMAN DAVIES Rep #:[id number] : 1950 74 From: Geovanni Hall PCP: Dr. Briseyda Sinclair MD Status:ADM IN Y Race: C Location: [place] [address] 2-1 ASA Classification* ASA Classification ASA Classification: 3 Assessment & Plan Anesthesia* Anesthesia Assessment Anesthesia Assessment: Discussed sedation and/or anesthesia options, risks, benefits, and alternatives with patient/parents/legal guardian/POA. Questions invited. The patient/parents/legal guardian/POA seems to understand and agrees to proceedwith anesthesia plan. Reviewed the physical assessment, medical history, allergy history and patient home medications list prior to surgery/procedure/anesthetic and documented any changes. Performed airway and anesthesia risk assessments. Anesthesia Type Anesthesia Type: MAC History Source History Obtained from:: Patient and Chart Anesthesia Focused Assessment* Temperature: 97.9 F Pulse Rate: 77 Blood Pressure: 155/70 Respiratory Rate: 18 Pulse Ox: 96 Oxygen Delivery Method: Room Air Oxygen Flow Rate (L/min): 2 Airway Assessment Mouth opens: >3 cm Mallampati Score: III Teeth Condition: Intact Labs Anesthesia Preop lab: CBC WBC, (4.4-11.0) 7.8 K/mm3 Today, 05:02 RBC, (4.6-6.2) 2.78 M/mm3 L Today, 05:02 Hgb, (13.0-16.5) 8.7 g/dL L Today, 05:02 Hct, (40-54) 26.5 % L Today, 05:02 Plt Count, (150-450) 348 K/mm3 Today, 05:02 CHEMISTRY Potassium, (3.3-5.1) 4.3 mmol/L Today, 05:02 Sodium, (133-145) 149 mmol/L H Today, 05:02 Magnesium, (1.5-2.2) 1.7 mg/dL 06/07/25, 05:10 Phosphorus, (2.7-4.5) 6.4 mg/dL H 06/06/25, 04:10 BUN, (4-19) 77 mg/dL H Today, 05:02 Creatinine, (0.70-1.20) 5.97 mg/dL H Today, 05:02 Glucose, (70-99) 104 mg/dL H Today, 05:02 POC Glucose, (74-106) 129 mg/dL H Today, 06:07 TSH, (0.300-4.200) 3.230 uIU/mL 11/18/24, 06:01 COAG PT, (11.7-14.9) 13.5 SECONDS Today, 05:02 Pre-Assessment Diagnosis/Proposed Procedure Planned Operative Procedure(s): Tunneled Dialysis catheter Anesthesia History Anesthesia History - packing inspector: 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 When Was Last Pacemaker Check QUESTION #4 FULL TEXT: You/Your Family Experience fever (hyperthermia) with Anesthesia Last Oral Intake Last Oral intake: Last Oral Intake NPO since 23:00 06/14/25 10:05 Meds taken in AM with sips of Yes 06/14/25 10:05 water? Meds patient instructed to carvedilol 06/14/25 10:05 take am of surgery PONV PONV - packing inspector: PONV - packing inspector Female HX of Motion Sickness HX of N/V After Surgery Non-Smoker Duration of Surgery greater than 60 minutes Number of Risk Factors PONV Score Height & Weight Height & Weight: Anesthesia: Height & Weight Height 6 ft 06/14/25 10:05 Weight: 77.467 kg 06/14/25 10:05 Body Mass Index (BMI) 23.1 06/14/25 10:05 Respiratory Assessment Respiratory Assessment - packing inspector: Respiratory Tract Infection Hx - packing inspector Hx Respiratory Tract Infection No 06/13/25 20:23 STOP Sleep Apnea STOP Sleep Apnea - packing inspector: STOP Sleep Apnea - packing inspector Hx Hypertension Yes: CONTROLLED WITH MEDS 06/10/25 12:27 Hx Sleep Apnea No 06/05/25 07:50 CPAP BIPAP Do you snore loudly (louder No 06/05/25 07:50 than talking or can be heard Do you often feel tired/ Yes 06/05/25 07:50 fatigued/ sleepy during daytime? Has anyone observed you stop No 06/05/25 07:50 breathing during sleep? STOP Results Positive 06/05/25 07:50 QUESTION #5 FULL TEXT : Do you snore loudly (louder than talking or can be heard through closed doors)? Tobacco Use History Tobacco Use History - packing inspector: Tobacco Use History - packing inspector Tobacco Use Cigarettes 04/16/25 13:29 Smoking Status Former smoker 06/05/25 07:50 Hx Tobacco Use No 06/05/25 07:50 Years Smoking Packs Smoked per Day Smoking Cessation Date was No - quit smoking greater 06/05/25 07:50 within the last 15 years than 15 years ago Hx Smoking Cessation Date 08/16/01 06/05/25 07:50 Hx Smoking Cessation No 06/05/25 07:50 Counseling Hematologic Medial History Hematologic Hx - packing inspector: Hematologic Medical Hx - business agent Hx of Blood Transfusion No 06/05/25 07:50 Hx of Transfusion in last 3 No 06/05/25 07:50 Months Date of Last Transfusion (if within last 3 months) Ever experience any problems No 06/05/25 07:50 with transfusion(s)? Specify any problems Hx of Preganancy in last 3 N/A 06/05/25 07:50 Months Nurse Filling Out Transfusion ROME 06/05/25 07:50 & Questions: Date: 06/05/25 06/05/25 07:50 Time: 07:53 06/05/25 07:50 Patient unable to answer at this time (ie. confused, unrespo /Reproduction History /Reproductive History - packing inspector: /Reproductive Hx- packing inspector Hx Now No 06/13/25 20:23 Gestational Age (in weeks): EDC: Hx Hx Para Hx Section SAB No 06/13/25 20:23 Active Medications Active Medications: Current Medications Generic Name Dose Route Start Last Admin Trade Name Freq PRN Reason Stop Dose Admin Acetaminophen 650 mg 06/07/25 21:49 06/09/25 22:21 Acetaminophen 325 Mg Tablet PO 650 mg Q4H PRN PRN Administration Pain 1-10 or Fever Amlodipine Besylate 10 mg 06/09/25 22:00 06/13/25 21:16 Amlodipine 10 Mg Tablet PO 10 mg QHS GUALBERTO Administration Protocol Aspirin 81 mg 06/08/25 08:00 06/13/25 08:56 Aspirin E.C. 81 Mg Tablet PO 81 mg On Hold: 06/13/25 10:02 BREAKFAST GUALBERTO Administration Atorvastatin Calcium 80 mg 06/07/25 22:00 06/13/25 21:16 Atorvastatin Calcium 80 Mg Tablet PO 80 mg QHS GUALBERTO Administration Buspirone HCl 10 mg 06/11/25 10:05 06/14/25 06:42 Buspirone 5 Mg Tablet PO Not Given TID GUALBERTO Carvedilol 12.5 mg 06/08/25 08:00 06/14/25 07:42 Carvedilol 12.5 Mg Tablet PO 12.5 mg BIDCM GUALBERTO Administration Protocol Finasteride 5 mg 06/07/25 22:00 06/13/25 21:16 Finasteride 5 Mg Tablet PO 5 mg QHS GUALBERTO Administration Hydralazine HCl 10 mg 06/08/25 08:00 06/11/25 22:23 Hydralazine 20 Mg/Ml Vial IV 10 mg Q6H PRN PRN Administration SBP>160 Protocol Sodium Chloride 250 mls @ 15 mls/hr 06/08/25 06:10 IV .[id number] PRN Saline Flush Sodium Chloride 250 mls @ 15 mls/hr 06/08/25 06:10 IV .[id number] PRN Additional IVPB Infusion Cefazolin Sodium 2 gm/ Sodium 110 mls @ 200 mls/hr 06/14/25 11:00 Chloride IV 06/14/25 11:32 INTRAOP ONE Lactated Ringer's 1,000 mls @ 15 mls/hr 06/14/25 10:30 06/14/25 10:21 IV 15 mls/hr .Q48H GUALBERTO Administration Insulin Glargine 36 unit 06/10/25 10:00 06/14/25 07:52 Insulin Glargine-Yfgn 100 Unit/Ml Pen SC Not Given DAILY GUALBERTO Insulin Human Lispro 0 unit 06/07/25 22:00 06/14/25 06:43 Insulin Lispro 100 Unit/Ml Insuln.Pen SC Not Given ACHS [facility] Protocol Insulin Human Lispro 8 unit 06/12/25 16:00 06/14/25 06:43 Insulin Lispro 100 Unit/Ml Insuln.Pen SC Not Given TIDAC [facility] Isosorbide Mononitrate 30 mg 06/07/25 22:00 06/13/25 21:16 Isosorbide Mononitrate 30 Mg Tablet PO 30 mg QHS GUALBERTO Administration Protocol Loratadine 10 mg 06/08/25 10:00 06/14/25 07:52 Loratadine 10 Mg Tablet PO Not Given Q48 GUALBERTO Senna 2 tablet 06/07/25 21:42 Senna Tablet PO BID PRN PRN constipation Sodium Chloride 10 - 40 ml 06/08/25 06:10 06/12/25 21:25 0.9% Saline Lock 10 Ml Syringe IV 10 ml UD PRN Administration SALINE FLUSH Tamsulosin HCl 0.4 mg 06/07/25 22:00 06/13/25 21:17 Tamsulosin Hcl 0.4 Mg Capsule PO 0.4 mg QHS GUALBERTO Administration PFSH Medical History Cancer Alcohol use History of steroid therapy Back pain TIA (transient ischemic attack) Gastric reflux Shortness of breath on exertion Hypertension Leg cramps History of stress test History of echocardiogram History of Holter monitoring Diarrhea Lower urinary tract symptoms (LUTS) Acute urinary retention Hypothyroidism Lumbar radiculopathy, acute Near syncope Chest pain Wears glasses Insulin dependent diabetes mellitus High cholesterol Stroke/cerebrovascular accident Dietary restriction Former smoker Cardiology follow-up encounter History of [...] coronary artery (~08/28/01) Atherosclerotic heart disease of [place] coronary artery without angina pectoris Home Medications [...] 07/20/21 01/12/25 History mcg (1,000 unit) tablet lancets 33 gauge (OneTouch Delica #100 ea 05/04/24 Unk nown Rx Plus Lancet) atorvastatin 80 mg tablet 80 mg PO QHS CHOLESTEROL #90 08/10/24 01/11/25 Rx TABLETS carvedilol 12.5 mg tablet 12.5 mg PO BID HEART #180 ta bs 08/10/24 01/12/25 Rx lisinopril 20 mg tablet 20 mg PO DAILY BP #90 TABLET S 08/10/24 01/12/25 Rx metformin 500 mg tablet 1,000 mg (2 x 500 mg) PO BID BLOOD 08/10/24 01/12/25 Rx SUGARS #360 tabs pen needle, diabetic 32 gauge x #100 ea 01/04/25 Unkno wn Rx 09/19 (Comfort EZ Pen [place]) finasteride 5 mg tablet 5 mg PO QHS PROSTATE 5 Unknown History blood sugar diagnostic (OneTouch #100 ea 02/24/25 Unkn own Rx Verio test strips) glimepiride 4 mg tablet 4 mg PO BID BLOOD SUGARS #90 tabs 02/25/25 Unknown Rx tamsulosin 0.4 mg capsule 0.4 mg PO QHS PROSTATE #90 c aps 04/09/25 Unknown Rx insulin glargine U-300 conc 300 36 unit (0.12 mL) subc ut DAILY 04/19/25 Unknown Rx unit/mL (1.5 mL) subcutaneous pen BLOOD SUGARS #4.5 mL (Toujeo SoloStar U-300 Insulin) loratadine 10 mg tablet 10 mg PO QDAY ALLERGY Unknown History prasugrel HCl 10 mg tablet 10 mg PO QDAY HEART #90 tab s 05/18/25 Unknown Rx (Effient) amlodipine 5 mg tablet 5 mg PO QHS BP 05/28/25 Unkn own History famotidine 20 mg tablet 20 mg PO QHS GERD 05/28/25 U nknown History isosorbide mononitrate 30 mg 30 mg PO QHS HEART Unknown History tablet,extended release 24 hr magnesium glycinate 100 mg (as 400 mg PO QHS SUPPLEMEN T 05/28/25 Unknown History glycinate) tablet Allergy/AdvReac Type Severity Reaction Status Date / Time ticagrelor (From Brilinta) AdvReac Severe Other Verified 06/05/25 04:27 Family History Mother CAD (coronary artery disease) Diabetes Myocardial infarction, Onset Age: 48 Father Diabetes Breast cancer Brother Diabetes Cancer Brother Cancer Prostate Surgical History History of cardiac catheterization History of lumbar discectomy Hx of oral surgery History of coronary artery stent placement History [...] aspirin use. Does not use ibuprofen daily. Addt'l Information Additional Findings: EF 60%; NSR on EKG Review of Systems (Anesthesia) ROS Narrative System reviewed and no additional complaints, except as documented. Physical Exam Const alert, oriented x3 and average body habitus Cardio regular rate, regular rhythm and no murmurs Cardio Narrative: Previous LAD stent years ago. has > 4 mets 06/14/25 1046 <Electronically signed by Geovanni aPthak MD> Date _ Geovanni Pathak MD Cosigner Signature: Date CC: ~ Signed [facility] Work Phone: [phone] Progress note Author Pamelairasema Antunez [facility] Note Date/Time June 14, 2025 10:17am [facility] Medical Records Department [address] [place] [address] Progress Note - Surgery 06/14/25 1012 MR#: [id number] Acct: [id number] Name: COLEMAN DAVIES Rep #:[id number] 1950 74 From: Pamela BACON PA-C PCP: Dr. Briseyda Sinclair MD Status:ADM IN Location: [place] [id number] Subjective Subjective Patient evaluated resting comfortably at the side of the bed. He denies any questions with the catheter procedure today. He had is temporary catheter removed this morning. Objective Data Objective Data Vital Signs: Vital Signs Temp Pulse Resp BP Pulse Ox O2 Del Method O2 Flow Rate 98.5 F 80 16 142/66 H 97 Room Air 2 06/14/25 07:54 06/14/25 07:54 06/14/25 07:54 06/14/25 07:54 06/14/25 07:54 06/14/25 07:54 06/07/25 05:00 Oxygen Flow Rate (L/min) 2 Oxygen Delivery Method Room Air Weight: 162 lb 4.163 oz Body Mass Index (BMI) 22.0 Intake & Output: Intake and Output for Last 24 Hours 06/12/25 06/13/25 06/14/25 23:59 23:59 23:59 Intake Total 480 / 480 840 / 840 Output Total 1200 / 1900 2450 / 3500 1625 / 1625 Balance -720 / -1420 -1610 / -2660 -1625 / -1625 Lab / Micro Data 06/14/25 05:02 06/14/25 05:02 Labs: Laboratory Results - last 24 hr 06/13/25 12:15: POC Glucose 351 H 06/13/25 16:35: POC Glucose 323 H 06/13/25 21:14: POC Glucose 251 H 06/14/25 05:02: WBC 7.8, RBC 2.78 L, Hgb 8.7 L, Hct 26.5 L, MCV 95.3 H, MCH 31.3, MCHC 32.8, RDW Std Deviation 44.7 H, RDW Coeff of Rich 12.7, Plt Count 348,MPV 9.8, Immature Gran % (Auto) 0.400, Neut % (Auto) 62.2, Lymph % (Auto) 17.6 L, [place] % (Auto) 12.5 H, Eos % (Auto) 6.8 H, Baso % (Auto) 0.5, Absolute Neuts (auto) 4.9, Absolute Lymphs (auto) 1.38, Nucleated RBC % 0, PT 13.5, INR 1.0, APTT 26.8, Sodium 149 H, Potassium 4.3, Chloride 114 H, Carbon Dioxide 20.5 L, Anion Gap 15, BUN 77 H, Creatinine 5.97 H, Estim Creat Clear Calc 11.76 L, Est GFR (MDRD) Non-Af 9 L, BUN/Creatinine Ratio 12.8, Glucose 104 H, Calcium 9.0 06/14/25 06:07: POC Glucose 129 H Micro: Microbiology 06/05/25 12:10 Urine Catheter - Bolaños Urine Culture - Final Culture exhibits no growth. Rhythm Strip Rhythm Strip: Sinus Rhythm Rate: 85 Ectopy: None Physical Exam Neck Neck Narrative: Right neck- op-site intact with no active oozing noted Assessment & Plan Assessment/Plan (1) Acute renal failure: PLAN: I am following this patient in conjunction with Dr. Bear. She will independently evaluate this patient. Labs reviewed Plan to have tunneled dialysis catheter placed on right side of chest possible left Patient to have kidney biopsy today and dialysis We will continue to monitor this patient Charges/Coding Visit Charges Inpatient E&M: 22094 Subs Hosp L1 (pre-op; no charge) 06/14/25 1017 <Electronically signed by Pamela BACON PA-C> Cosigner Signature (if applicable): CC: ~ Signed [facility] Work Phone: [phone] 186-223309-29-2025 Consult note [facility] Note Date/Time June 14, 2025 10:12am [facility] Medical Records Department [address] [place] [address] Consultation - Surgical 06/13/25 0900 MR#: [id number] Acct: [id number] Name: COLEMAN DAVIES Rep #:[id number] : 1950 74 From: Tanika Bear MD PCP: Dr. Briseyda Sinclair MD Status:ADM IN Location: [place] [address] Assessment & Plan Assessment/Plan (1) Acute renal failure: PLAN: Plan Discussed with patient and his will plan for the temporary dialysis catheter to be removed tomorrow morning. Plan for placement of a tunneled dialysis catheter right possible left tomorrow early afternoon. Discussed procedure including not limited to risk of bleeding, infection, malfunction of the catheter. Patient and his had no further question this time. Tanika Bear M.D. Pager: [phone] [facility] [address] [place] [address], [address] [place] [address] Office: [phone] HPI Consult Data Date of Consult: 06/14/25 HPI Narrative HPI Narrative: COLEMAN DAVIES, is a 74 M who admitted due to acute kidney injury and has been getting hemodialysis via temporary right IJ dialysis catheter. Plan is for patient to go home and continue hemodialysis and will need tunneled dialysis catheter. 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 [facility] Medical History Cancer Alcohol use History of steroid therapy Back pain TIA (transient ischemic attack) Gastric reflux Shortness of breath on exertion Hypertension Leg cramps History of stress test History of echocardiogram History of Holter monitoring Diarrhea Lower urinary tract symptoms (LUTS) Acute urinary retention Hypothyroidism Lumbar radiculopathy, acute Near syncope Chest pain Wears glasses Insulin dependent diabetes mellitus High cholesterol Stroke/cerebrovascular accident Dietary restriction Former smoker Cardiology follow-up encounter History of [...] coronary artery (~08/28/01) Atherosclerotic heart disease of [place] coronary artery without angina pectoris Home Medications [...] 07/20/21 01/12/25 History mcg (1,000 unit) tablet lancets 33 gauge (OneTouch Delica #100 ea 05/04/24 Unk nown Rx Plus Lancet) atorvastatin 80 mg tablet 80 mg PO QHS CHOLESTEROL #90 08/10/24 01/11/25 Rx TABLETS carvedilol 12.5 mg tablet 12.5 mg PO BID HEART #180 ta bs 08/10/24 01/12/25 Rx lisinopril 20 mg tablet 20 mg PO DAILY BP #90 TABLET S 08/10/24 01/12/25 Rx metformin 500 mg tablet 1,000 mg (2 x 500 mg) PO BID BLOOD 08/10/24 01/12/25 Rx SUGARS #360 tabs pen needle, diabetic 32 gauge x #100 ea 01/04/25 Unkno wn Rx 09/19 (Comfort EZ Pen [place]) finasteride 5 mg tablet 5 mg PO QHS PROSTATE 5 Unknown History blood sugar diagnostic (OneTouch #100 ea 02/24/25 Unkn own Rx Verio test strips) glimepiride 4 mg tablet 4 mg PO BID BLOOD SUGARS #90 tabs 02/25/25 Unknown Rx tamsulosin 0.4 mg capsule 0.4 mg PO QHS PROSTATE #90 c aps 04/09/25 Unknown Rx insulin glargine U-300 conc 300 36 unit (0.12 mL) subc ut DAILY 04/19/25 Unknown Rx unit/mL (1.5 mL) subcutaneous pen BLOOD SUGARS #4.5 mL (Toujeo SoloStar U-300 Insulin) loratadine 10 mg tablet 10 mg PO QDAY ALLERGY Unknown History prasugrel HCl 10 mg tablet 10 mg PO QDAY HEART #90 tab s 05/18/25 Unknown Rx (Effient) amlodipine 5 mg tablet 5 mg PO QHS BP 05/28/25 Unkn own History famotidine 20 mg tablet 20 mg PO QHS GERD 05/28/25 U nknown History isosorbide mononitrate 30 mg 30 mg PO QHS HEART Unknown History tablet,extended release 24 hr magnesium glycinate 100 mg (as 400 mg PO QHS SUPPLEMEN T 05/28/25 Unknown History glycinate) tablet Allergy/AdvReac Type Severity Reaction Status Date / Time ticagrelor (From Brilinta) AdvReac Severe Other Verified 06/05/25 04:27 Family History Mother CAD (coronary artery disease) Diabetes Myocardial infarction, Onset Age: 48 Father Diabetes Breast cancer Brother Diabetes Cancer Brother Cancer Prostate Surgical History History of cardiac catheterization History of lumbar discectomy Hx of oral surgery History of coronary artery stent placement History [...] use. Does not use ibuprofen daily. ROS Constitutional Constitutional: Denies anorexia Eyes Eyes: Denies blurry vision ENT HEENT: Denies dysphagia Cardiovascular Cardiovascular: Denies chest pain Respiratory/Chest Respiratory/Chest: Denies productive cough Gastrointestinal Gastrointestinal: Denies abdominal pain, nausea or vomiting Genitourinary Genitourinary: Denies hematuria Musculoskeletal Musculoskeletal: Denies joint swelling Integumentary Integumentary: Denies jaundice Neurologic Neurologic: Denies focal weakness Psychiatric Psychiatric: Denies anxiety or depression Hematologic/Lymphatic Hematologic/Lymphatic: Denies easy bleeding Physical Exam Narrative Right IJ temporary dialysis catheter in place Const alert, oriented x3 and no apparent distress HEENT normocephalic and head/scalp atraumatic Resp normal respiratory effort Cardio regular rate GI soft to palpation and non-tender; Negative for non-distended Palpation: Negative for guarding Extremity no clubbing, cyanosis or edema Skin no rashes or lesions noted Neuro CN's II-XII intact bilaterally Psych mental status grossly normal Lab / Micro Data 06/14/25 05:02 06/14/25 05:02 Labs: Laboratory Results - last 24 hr 06/12/25 11:45: POC Glucose 332 H 06/12/25 16:36: POC Glucose 325 H 06/12/25 21:18: POC Glucose 201 H 06/13/25 05:23: PT 14.1, INR 1.1, Sodium 148 H, Potassium 3.9, Chloride 112 H, Carbon Dioxide 22.0, Anion Gap 14, BUN 72 H, Creatinine 6.16 H, Estim Creat Clear Calc 10.95 L, Est GFR (MDRD) Non-Af 9 L, BUN/Creatinine Ratio 11.7, Glucose 108 H, Calcium 8.4 06/13/25 07:40: POC Glucose 168 H Rhythm Strip Rhythm Strip: Sinus Rhythm Rate: 85 Ectopy: None Charges/Coding Visit Charges Inpatient E&M: 99000 Init Hosp L3 06/14/25 1012 <Electronically signed by Tanika Bear MD> Cosigner Signature (if applicable): CC: Dr. Briseyda Sinclair MD~ Signed [facility] Work Phone: 1(489) 795-832609-28-2025 Progress note Author Luis Alberto Oro [facility] Note Date/Time June 13, 2025 3:14pm [facility] Medical Records Department [address] [place] [address] Progress Note - Nephrology 06/13/25 1513 MR#: [id number] Acct: [id number] Name: COLEMAN DAVIES Rep #:[id number] : 1950 74 From: Luis Alberto Oro MD PCP: Dr. Briseyda Sinclair MD Status:ADM IN Location: [place] [address] Subjective Subjective feels well no new complaints Objective Data Objective Data Vital Signs: Vital Signs Temp Pulse Resp BP Pulse Ox O2 Del Method O2 Flow Rate 97.9 F 83 18 128/73 H 99 Room Air 2 06/13/25 08:55 06/13/25 08:55 06/13/25 08:55 06/13/25 08:55 06/13/25 08:55 06/13/25 15:07 06/07/25 05:00 Oxygen Flow Rate (L/min) 2 Oxygen Delivery Method Room Air Weight: 73.6 kg Body Mass Index (BMI) 22.0 Intake & Output: Intake and Output for Last 24 Hours 06/11/25 06/12/25 06/13/25 23:59 23:59 23:59 Intake Total 600 / 600 480 / 480 480 / 480 Output Total 2450 / 2450 1200 / 1900 1825 / 1825 Balance -1850 / -1850 -720 / -1420 -1345 / -1345 Lab / Micro Data Attestation: I reviewed the patient's lab results. 06/12/25 06:47 06/13/25 05:23 Labs: Laboratory Results - last 24 hr 06/12/25 16:36: POC Glucose 325 H 06/12/25 21:18: POC Glucose 201 H 06/13/25 05:23: PT 14.1, INR 1.1, Sodium 148 H, Potassium 3.9, Chloride 112 H, Carbon Dioxide 22.0, Anion Gap 14, BUN 72 H, Creatinine 6.16 H, Estim Creat Clear Calc 10.95 L, Est GFR (MDRD) Non-Af 9 L, BUN/Creatinine Ratio 11.7, Glucose 108 H, Calcium 8.4 06/13/25 07:40: POC Glucose 168 H 06/13/25 12:15: POC Glucose 351 H Micro: Microbiology 06/05/25 12:10 Urine Catheter - Bolaños Urine Culture - Final Culture exhibits no growth. ABG Data Attestation: I personally reviewed and interpreted this ABG as follows: Rhythm Strip Rhythm Strip: Sinus Rhythm Rate: 85 Ectopy: None Physical Exam Narrative Alert awake oriented x 3 no obvious distress no pallor no icterus no JVD s1s2 no murmurs lungs clear abdomen soft no organomegaly no edema no cyanosis Assessment & Plan Assessment/Plan (1) Acute renal failure: (2) Hyperkalemia, diminished renal excretion: (3) Acute metabolic acidosis: (4) Essential hypertension: (5) Type 2 diabetes mellitus: QUALIFIERS: Diabetes mellitus halfway insulin use: without marine oil terminal superintendent use Diabetes mellitus complication status: with circulatory complication Diabetes mellitus complication detail: with other circulatory complications Qualified Code(s): E11.59 - Type 2 diabetes mellitus with other circulatory complications PLAN: Plan Assessment/Plan: The patient is a 74-year-old male with past history of CKD stage G3b, type 2 diabetes mellitus, hypertension, CAD status post PCI, PAD, stroke, hypothyroidism, BPH, iron deficiency anemia, and hyperlipidemia. Patient presented to hospital with 2-day history of intractable nausea/vomiting,anorexia and generalized weakness. Patient was found to have acute kidney injury on chronic kidney disease associated with hyperkalemia and severe metabolic acidosis. Nephrology is asked to the patient because of JINA, metabolic acidosis and hyperkalemia. Acute kidney injury on chronic kidney disease stage G3b. Baseline creatinine about 1.4-1.6 as of March 2025. Presented with 2 days of nausea. Found to have renal failure, worsening. Creatinine is up to 10. Initial urine analysis with protein Renal ultrasound without any hydronephrosis Was not particularly hypotensive. Denies any iczi-zwr-asyhzul supplements. He started taking a probiotic due to diarrhea over the last 6 weeks or so. started HD 06/07/25 HD today. see orders Urine output has picked up. Will hold dialysis after today and monitor labs. If renal function gets better, he will not need any further intervention. If renal function does not improve, he will need kidney biopsy. Tentatively tunneled dialysis catheter also. Discussed with family at bedside. Renal diet for now. 06/10/25. urine output is very good. 1.8 L. cr ok. lytes are ok. serologies are negative. possible its all ATN. repeat labs in am. further decision on HD depending on labs tomorrow. dw family bedside 06/11/25. Cr higher. kind of surprising since his urine output is pretty good. HDtoday. serologies are all negative. will plan for biopsy on saturday. likely TDC on saturday. will dw hospitalist 06/12/25 -volume, electrolytes ok today -plan on renal biopsy on saturday along with TDC -continue with HD MWF for now 06/13 -volume electrolyts stable -still no improvement in solute clearance -plan for HD and renal biopsy tomorrow 06/13/25 2565 <Electronically signed by Luis Alberto Oro MD> Cosigner Signature (if applicable): CC: ~ Signed [facility] Work Phone: [phone]) 400-652809-28-2025 Progress note Author Fawad Bates [facility] Note Date/Time June 13, 2025 11:45am [facility] Medical Records Department [address] [place] [address] Progress Note - Hospitalist 06/13/25 1142 MR#: [id number] Acct: [id number] Name: COLEMAN DAVIES Rep #:[id number] : 1950 74 From: Fawad Hall PCP: Dr. Briseyda Sinclair MD Status:ADM IN Location: [facility] [id number] Reason for Visit Chief Complaint: Intractable N/V Objective Data Objective Data Vital Signs: Vital Signs Temp Pulse Resp BP Pulse Ox O2 Del Method O2 Flow Rate 97.9 F 83 18 128/73 H 99 Room Air 2 06/13/25 08:55 06/13/25 08:55 06/13/25 08:55 06/13/25 08:55 06/13/25 08:55 06/13/25 08:55 06/07/25 05:00 Oxygen Flow Rate (L/min) 2 Oxygen Delivery Method Room Air Weight: 162 lb 4.163 oz Body Mass Index (BMI) 22.0 Intake & Output: Intake and Output for Last 24 Hours 06/11/25 06/12/25 06/13/25 23:59 23:59 23:59 Intake Total 600 / 600 480 / 480 Output Total 2450 / 2450 1200 / 1900 1300 / 1300 Balance -1850 / -1850 -720 / -1420 -1300 / -1300 Lab / Micro Data 06/12/25 06:47 06/13/25 05:23 Labs: Laboratory Results - last 24 hr 06/12/25 11:45: POC Glucose 332 H 06/12/25 16:36: POC Glucose 325 H 06/12/25 21:18: POC Glucose 201 H 06/13/25 05:23: PT 14.1, INR 1.1, Sodium 148 H, Potassium 3.9, Chloride 112 H, Carbon Dioxide 22.0, Anion Gap 14, BUN 72 H, Creatinine 6.16 H, Estim Creat Clear Calc 10.95 L, Est GFR (MDRD) Non-Af 9 L, BUN/Creatinine Ratio 11.7, Glucose 108 H, Calcium 8.4 06/13/25 07:40: POC Glucose 168 H Micro: Microbiology 06/05/25 12:10 Urine Catheter - Bolaños Urine Culture - Final Culture exhibits no growth. Rhythm Strip Rhythm Strip: Sinus Rhythm Rate: 85 Ectopy: None Physical Exam Narrative Seen and examined No acute issues. Mild anxiety controlled/getting better on BuSpar. Discussed with the . Urine output is good. Bolaños catheter was removed yesterday. Patient has history of CAD status post stent and a stroke in the past. Had SC/cardiac stent in 2000. Has a stroke with residual aphasia/mild language difficulties in understanding and writing. Wants to go home. Had hematuria on first day of admission. Physical exam General: Alert, Oriented x3, Cooperative HEENT: Atraumatic, PERRLA, EOMI, Normocephalic. Oral: No Gingival or Mucosal Lesions/ Ulcerations Neck: Right IJ dialysis catheter. Supple, No JVD, Negative Carotid Bruits Chest wall/Lungs: Air entry diminished in bilateral lung bases. No crepitation/rhonchi Cardiovascular: Regular rate and rhythm, Normal S1,S2, No M/G/R Abdomen: Bowel Sounds Present, Soft, Non Tender, Non-Distended : Clear urine. No dysuria. No renal angle tenderness. No suprapubic tenderness. Extremities: No edema, Capillary Refill Less than 3 Seconds Skin: No rashes, No breakdown Musculoskeletal: No Tenderness to Palpation of Joints or Extremities Neurological: Cranial nerves II-XII grossly intact, DTR 2+/4. No acute focal neurological deficit. Psych/Mental Status: Mild frustrated Assessment & Plan Assessment/Plan (1) Hypoglycemia: (2) Acute metabolic acidosis: (3) Hyperkalemia, diminished renal excretion: (4) Acute renal failure: (5) Acute uremia: PLAN: Plan 74-year-old gentleman was admitted with intractable nausea and vomiting and found to have JINA with hyperkalemia, admitted on the monitored bed. Required further transfer to ICU for acute hyperkalemia and that downgraded to PCU JINA on CKD stage IIIb - Baseline creatinine is between 1.4 and 1.6 as of March 2025 - Urine output seems to be improving -Renal biopsy for Saturday if renal function is not recovering -Effient on hold okay per discussion with Dr. Garrison but will need help for 7days prior to biopsy - Continue Bolaños and monitor for renal recovery - Serologies were unremarkable - Nephrology following-appreciate input - Will decide on ongoing needs in the next 24 hours 06/11: On admission patient creatinine was 8.74, creatinine 10.7 and then fluctuates, today 7.70. BUN fluctuates between 70-90. [employer] Professor report reviewed. Patient urine output is good. Hemodialysis today. Serologies are negative. Plan for kidney biopsy on Saturday. Likely tentative discharge on Saturday. 06/12: Patient had about 2500 mL of urine output. No significant fluid removal on dialysis here yesterday but mainly for electrolyte support. Discussed with the voucher clerk we will surgery. Plan for tunneled dialysis catheter and renalbiopsy on Saturday informed by the patient and his . Surgery consulted for tunneled dialysis catheter. 06/13: Good urine output. Bolaños catheter was removed yesterday. Was evaluated by voucher clerk. Plan for right IJ dialysis catheter removal tomorrow and then tunneled dialysis catheter. They also plan for kidney biopsy tomorrow. Creatinine not improving. Serum sodium 148, chloride 112. Potassium normal. BUN 72 Anion gap metabolic acidosis - Much improved and is improving with improved renal function 06/13 anion gap is normal 14. Acute on chronic anemia - Stable - No signs of acute drop at this time - Will continue to monitor - Baseline appears to be between 11 and 13 - 06/11 hemoglobin 8.9 decreased from 12.0. His baseline hemoglobin is about 12 in November 2024. Not on any scheduled anticoagulant. Only on baby aspirin. 06/12: H&H 8.4/24.9%. CAD/carotid artery stenosis/essential hypertension/hyperlipidemia/history of TIA - No stents within the last 12 months - Effient on hold for renal biopsy --> discussed with cardiology - continue home aspirin - Continue home carvedilol - continue home amlodipine - Lisinopril on hold due to renal dysfunction - Continue isosorbide mononitrate - Follows with vascular and cardiology as an outpatient - BP is overall improved 06/05; blood pressure is good DM-2 - Hold metformin - Hold glimepiride - SSI 06/12: Blood sugar is variable 117 and then 332. Humalog insulin added. 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 CODE STATUS - Full code Charges/Coding Visit Charges Inpatient E&M: 50854 Subs Hosp L2 06/13/25 1145 <Electronically signed by Fawad Bates MD> Cosigner Signature (if applicable): CC: ~ Signed [facility] Work Phone: [phone]) 388-361209-27-2025 Progress note Author Luis Alberto Oro [facility] Note Date/Time June 12, 2025 5:21pm [facility] Medical Records Department [address] [place] [address] Progress Note - Nephrology 06/12/25 1718 MR#: [id number] Acct: [id number] Name: COLEMAN DAVIES Rep #:[id number] : 1950 74 From: Luis Alberto Oro MD PCP: Dr. Briseyda Sinclair MD Status:ADM IN Location: [place] [address] Subjective Subjective feels well no new complaints making urine Objective Data Objective Data Vital Signs: Vital Signs Temp Pulse Resp BP Pulse Ox O2 Del Method O2 Flow Rate 97.7 F L 80 18 153/70 H 96 Room Air 2 06/12/25 15:20 06/12/25 15:20 06/12/25 15:20 06/12/25 15:20 06/12/25 15:20 06/12/25 15:20 06/07/25 05:00 Oxygen Flow Rate (L/min) 2 Oxygen Delivery Method Room Air Weight: 81.5 kg Body Mass Index (BMI) 24.3 Intake & Output: Intake and Output for Last 24 Hours 06/10/25 06/11/25 06/12/25 23:59 23:59 23:59 Intake Total 600 / 600 240 / 240 Output Total 5500 / 5500 2450 / 2450 700 / 700 Balance -5500 / -5500 -1850 / -1850 -460 / -460 Lab / Micro Data 06/12/25 06:47 06/12/25 06:47 Labs: Laboratory Results - last 24 hr 06/11/25 22:17: POC Glucose 367 H 06/12/25 06:23: POC Glucose 117 H 06/12/25 06:47: WBC 6.1, RBC 2.67 L, Hgb 8.4 L, Hct 24.9 L, MCV 93.3, MCH 31.5, MCHC 33.7, RDW Std Deviation 43.2, RDW Coeff of Rich 12.6, Plt Count 277, MPV 10.2, Immature Gran % (Auto) 0.500, Neut % (Auto) 58.0, Lymph % (Auto) 17.9 L, [place] % (Auto) 16.9 H, Eos % (Auto) 6.4 H, Baso % (Auto) 0.3, Absolute Neuts (auto) 3.5, Absolute Lymphs (auto) 1.09, Nucleated RBC % 0, Sodium 146 H, Potassium 3.9, Chloride 109 H, Carbon Dioxide 21.9, Anion Gap 15, BUN 66 H, Creatinine 5.58 H, Estim Creat Clear Calc 12.75 L, Est GFR (MDRD) Non-Af 10 L, BUN/Creatinine Ratio 11.8, Glucose 121 H, Calcium 8.4 06/12/25 11:45: POC Glucose 332 H 06/12/25 16:36: POC Glucose 325 H Micro: Microbiology 06/05/25 12:10 Urine Catheter - Bolaños Urine Culture - Final Culture exhibits no growth. Rhythm Strip Rhythm Strip: Sinus Rhythm Rate: 85 Ectopy: None Physical Exam Narrative Alert awake oriented x 3 no obvious distress no pallor no icterus no JVD s1s2 no murmurs lungs clear abdomen soft no organomegaly no edema no cyanosis Assessment & Plan Assessment/Plan (1) Acute renal failure: (2) Hyperkalemia, diminished renal excretion: (3) Acute metabolic acidosis: (4) Essential hypertension: (5) Type 2 diabetes mellitus: QUALIFIERS: Diabetes mellitus halfway insulin use: without marine oil terminal superintendent use Diabetes mellitus complication status: with circulatory complication Diabetes mellitus complication detail: with other circulatory complications Qualified Code(s): E11.59 - Type 2 diabetes mellitus with other circulatory complications PLAN: Plan Assessment/Plan: The patient is a 74-year-old male with past history of CKD stage G3b, type 2 diabetes mellitus, hypertension, CAD status post PCI, PAD, stroke, hypothyroidism, BPH, iron deficiency anemia, and hyperlipidemia. Patient presented to hospital with 2-day history of intractable nausea/vomiting,anorexia and generalized weakness. Patient was found to have acute kidney injury on chronic kidney disease associated with hyperkalemia and severe metabolic acidosis. Nephrology is asked to the patient because of JINA, metabolic acidosis and hyperkalemia. Acute kidney injury on chronic kidney disease stage G3b. Baseline creatinine about 1.4-1.6 as of March 2025. Presented with 2 days of nausea. Found to have renal failure, worsening. Creatinine is up to 10. Initial urine analysis with protein Renal ultrasound without any hydronephrosis Was not particularly hypotensive. Denies any gnei-uus-oyfxxsx supplements. He started taking a probiotic due to diarrhea over the last 6 weeks or so. started HD 9/22/25 HD today. see orders Urine output has picked up. Will hold dialysis after today and monitor labs. If renal function gets better, he will not need any further intervention. If renal function does not improve, he will need kidney biopsy. Tentatively tunneled dialysis catheter also. Discussed with family at bedside. Renal diet for now. 06/10/25. urine output is very good. 1.8 L. cr ok. lytes are ok. serologies are negative. possible its all ATN. repeat labs in am. further decision on HD depending on labs tomorrow. dw family bedside 06/11/25. Cr higher. kind of surprising since his urine output is pretty good. HDto. serologies are all negative. will plan for biopsy on saturday. likely TDC on saturday. will dw hospitalist 06/12/25 -volume, electrolytes ok today -plan on renal biopsy on saturday along with TDC -continue with HD MWF for now 06/12/25 1721 <Electronically signed by Luis Alberto Oro MD> Cosigner Signature (if applicable): CC: ~ Signed [facility] Work Phone: [phone]) 570-149509-27-2025 Progress note Author Fawad Bates [facility] Note Date/Time June 12, 2025 12:50pm [facility] Medical Records Department [address] [place] [address] Progress Note - Hospitalist 06/12/25 1240 MR#: [id number] Acct: [id number] Name: KEKECOLEMAN Rep #:[id number] : 1950 74 From: Fawad Hall PCP: Dr. Briseyda Sinclair MD Status:ADM IN Location: [place] [address] Reason for Visit Chief Complaint: Intractable N/V Objective Data Objective Data Vital Signs: Vital Signs Temp Pulse Resp BP Pulse Ox O2 Del Method O2 Flow Rate 97.6 F L 82 18 127/63 H 95 Room Air 2 06/12/25 09:35 06/12/25 09:35 06/12/25 09:35 06/12/25 09:35 06/12/25 09:35 06/12/25 10:00 06/07/25 05:00 Oxygen Flow Rate (L/min) 2 Oxygen Delivery Method Room Air Weight: 179 lb 10.828 oz Body Mass Index (BMI) 24.3 Intake & Output: Intake and Output for Last 24 Hours 06/10/25 06/11/25 06/12/25 23:59 23:59 23:59 Intake Total 600 / 600 240 / 240 Output Total 5500 / 5500 2450 / 2450 700 / 700 Balance -5500 / -5500 -1850 / -1850 -460 / -460 Lab / Micro Data 06/12/25 06:47 06/12/25 06:47 Labs: Laboratory Results - last 24 hr 06/11/25 14:06: POC Glucose 199 H 06/11/25 16:33: POC Glucose 324 H 06/11/25 22:17: POC Glucose 367 H 06/12/25 06:23: POC Glucose 117 H 06/12/25 06:47: WBC 6.1, RBC 2.67 L, Hgb 8.4 L, Hct 24.9 L, MCV 93.3, MCH 31.5, MCHC 33.7, RDW Std Deviation 43.2, RDW Coeff of Rich 12.6, Plt Count 277, MPV 10.2, Immature Gran % (Auto) 0.500, Neut % (Auto) 58.0, Lymph % (Auto) 17.9 L, [place] % (Auto) 16.9 H, Eos % (Auto) 6.4 H, Baso % (Auto) 0.3, Absolute Neuts (auto) 3.5, Absolute Lymphs (auto) 1.09, Nucleated RBC % 0, Sodium 146 H, Potassium 3.9, Chloride 109 H, Carbon Dioxide 21.9, Anion Gap 15, BUN 66 H, Creatinine 5.58 H, Estim Creat Clear Calc 12.75 L, Est GFR (MDRD) Non-Af 10 L, BUN/Creatinine Ratio 11.8, Glucose 121 H, Calcium 8.4 06/12/25 11:45: POC Glucose 332 H Micro: Microbiology 06/05/25 12:10 Urine Catheter - Bolaños Urine Culture - Final Culture exhibits no growth. Rhythm Strip Rhythm Strip: Sinus Rhythm Rate: 85 Ectopy: None Physical Exam Narrative Seen and examined No acute issues. Mild anxiety sometimes gets irritable. I talked to the . Patient has history of CAD status post stent and a stroke in the past. Had SC/cardiac stent in 2000. Has a stroke with residual aphasia/mild language difficulties in understanding and writing. Wants to go home. Had hematuria on first day of admission. Physical exam General: Alert, Oriented x3, Cooperative HEENT: Atraumatic, PERRLA, EOMI, Normocephalic. Oral: No Gingival or Mucosal Lesions/ Ulcerations Neck: Supple, No JVD, Negative Carotid Bruits Chest wall/Lungs: Air entry diminished in bilateral lung bases. No crepitation/rhonchi Cardiovascular: Regular rate and rhythm, Normal S1,S2, No M/G/R Abdomen: Bowel Sounds Present, Soft, Non Tender, Non-Distended : Bolaños catheter. Clear urine. No dysuria. No renal angle tenderness. No suprapubic tenderness. Extremities: No edema, Capillary Refill Less than 3 Seconds Skin: No rashes, No breakdown Musculoskeletal: No Tenderness to Palpation of Joints or Extremities Neurological: Cranial nerves II-XII grossly intact, DTR 2+/4. No acute focal neurological deficit. Psych/Mental Status: Mild frustrated Assessment & Plan Assessment/Plan (1) Hypoglycemia: (2) Acute metabolic acidosis: (3) Hyperkalemia, diminished renal excretion: (4) Acute renal failure: (5) Acute uremia: PLAN: Plan 74-year-old gentleman was admitted with intractable nausea and vomiting and found to have JINA with hyperkalemia, admitted on the monitored bed. Required further transfer to ICU for acute hyperkalemia and that downgraded to PCU JINA on CKD stage IIIb - Baseline creatinine is between 1.4 and 1.6 as of March 2025 - Urine output seems to be improving -Renal biopsy for Saturday if renal function is not recovering -Effient on hold okay per discussion with Dr. Garrison but will need help for 7days prior to biopsy - Continue Bolaños and monitor for renal recovery - Serologies were unremarkable - Nephrology following-appreciate input - Will decide on ongoing needs in the next 24 hours 06/11: On admission patient creatinine was 8.74, creatinine 10.7 and then fluctuates, today 7.70. BUN fluctuates between 70-90. [employer] Professor report reviewed. Patient urine output is good. Hemodialysis today. Serologies are negative. Plan for kidney biopsy on Saturday. Likely tentative discharge on Saturday. 06/12: Patient had about 2500 mL of urine output. No significant fluid removal on dialysis here yesterday but mainly for electrolyte support. Discussed with the voucher clerk we will surgery. Plan for tunneled dialysis catheter and renalbiopsy on Saturday informed by the patient and his . Surgery consulted for tunneled dialysis catheter. Anion gap metabolic acidosis - Much improved and is improving with improved renal function Acute on chronic anemia - Stable - No signs of acute drop at this time - Will continue to monitor - Baseline appears to be between 11 and 13 - 06/11 hemoglobin 8.9 decreased from 12.0. His baseline hemoglobin is about 12 in November 2024. Not on any scheduled anticoagulant. Only on baby aspirin. 06/12: H&H 8.4/24.9%. CAD/carotid artery stenosis/essential hypertension/hyperlipidemia/history of TIA - No stents within the last 12 months - Effient on hold for renal biopsy --> discussed with cardiology - continue home aspirin - Continue home carvedilol - continue home amlodipine - Lisinopril on hold due to renal dysfunction - Continue isosorbide mononitrate - Follows with vascular and cardiology as an outpatient - BP is overall improved 06/05; blood pressure is good DM-2 - Hold metformin - Hold glimepiride - SSI 06/12: Blood sugar is variable 117 and then 332. Humalog insulin added. 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 CODE STATUS - Full code Charges/Coding Visit Charges Inpatient E&M: 06232 Subs Hosp L2 06/12/25 1250 <Electronically signed by Fawad Bates MD> Cosigner Signature (if applicable): CC: ~ Signed [facility] Work Phone: [phone]) 852-825309-26-2025 Progress note Author Fawad Bates [facility] Note Date/Time June 11, 2025 3:44pm [facility] Medical Records Department [address] [place] [address] Progress Note - Hospitalist 06/11/25 0915 MR#: [id number] Acct: [id number] Name: COLEMAN DAVIES Rep #:[id number] : 1950 74 From: Fawad Hall PCP: Dr. Briseyda Sinclair MD Status:ADM IN Location: [place] [address] Reason for Visit Chief Complaint: Intractable N/V Objective Data Objective Data Vital Signs: Vital Signs Temp Pulse Resp BP Pulse Ox O2 Del Method O2 Flow Rate 36.8 F L 81 18 156/69 H 96 Room Air 2 06/10/25 20:48 06/10/25 20:48 06/10/25 20:48 06/10/25 20:48 06/10/25 20:48 06/11/25 07:48 06/07/25 05:00 Oxygen Flow Rate (L/min) 2 Oxygen Delivery Method Room Air Weight: 178 lb 9.191 oz Body Mass Index (BMI) 24.2 Intake & Output: Intake and Output for Last 24 Hours 06/09/25 06/10/25 06/11/25 23:59 23:59 23:59 Intake Total 480 / 480 Output Total 3725 / 3725 5500 / 5500 500 / 500 Balance -3245 / -3245 -5500 / -5500 -500 / -500 Lab / Micro Data 06/11/25 04:43 06/11/25 04:43 Labs: Laboratory Results - last 24 hr 06/10/25 11:23: POC Glucose 272 H 06/10/25 16:41: POC Glucose 332 H 06/10/25 20:55: POC Glucose 199 H 06/11/25 04:43: WBC 6.0, RBC 2.79 L, Hgb 8.9 L, Hct 25.4 L, MCV 91.0, MCH 31.9, MCHC 35.0, RDW Std Deviation 41.8, RDW Coeff of Rich 12.7, Plt Count 252, MPV 10.0, Immature Gran % (Auto) 0.200, Neut % (Auto) 59.8, Lymph % (Auto) 17.4 L, [place] % (Auto) 15.4 H, Eos % (Auto) 6.9 H, Baso % (Auto) 0.3, Absolute Neuts (auto) 3.6, Absolute Lymphs (auto) 1.04, Nucleated RBC % 0, Sodium 143, Potassium 3.8, Chloride 104, Carbon Dioxide 21.5, Anion Gap 17 H, BUN 90 H, Creatinine 7.70 H*, Estim Creat Clear Calc 9.24 L*, Est GFR (MDRD) Non-Af 7 L, BUN/Creatinine Ratio 11.7, Glucose 160 H, Calcium 8.3 06/11/25 07:44: POC Glucose 167 H Micro: Microbiology 06/05/25 12:10 Urine Catheter - Bolaños Urine Culture - Final Culture exhibits no growth. Rhythm Strip Rhythm Strip: Sinus Rhythm Rate: 85 Ectopy: None Physical Exam Narrative Seen and examined Talked to the . Patient has history of CAD status post stent and a stroke in the past. Had SC/cardiac stent in 2000. Has a stroke with residual aphasia/mild language difficulties in understanding and writing. Wants to go home. Had hematuria on first day of admission. Physical exam General: Alert, Oriented x3, Cooperative HEENT: Atraumatic, PERRLA, EOMI, Normocephalic. Oral: No Gingival or Mucosal Lesions/ Ulcerations Neck: Supple, No JVD, Negative Carotid Bruits Chest wall/Lungs: Air entry diminished in bilateral lung bases. No crepitation/rhonchi Cardiovascular: Regular rate and rhythm, Normal S1,S2, No M/G/R Abdomen: Bowel Sounds Present, Soft, Non Tender, Non-Distended : Bolaños catheter. Clear urine. No dysuria. No renal angle tenderness. No suprapubic tenderness. Extremities: No edema, Capillary Refill Less than 3 Seconds Skin: No rashes, No breakdown Musculoskeletal: No Tenderness to Palpation of Joints or Extremities Neurological: Cranial nerves II-XII grossly intact, DTR 2+/4. No acute focal neurological deficit. Psych/Mental Status: Mild frustrated Assessment & Plan Assessment/Plan (1) Hypoglycemia: (2) Acute metabolic acidosis: (3) Hyperkalemia, diminished renal excretion: (4) Acute renal failure: (5) Acute uremia: PLAN: Plan 74-year-old gentleman was admitted with intractable nausea and vomiting and found to have JINA with hyperkalemia, admitted on the monitored bed. Required further transfer to ICU for acute hyperkalemia and that downgraded to PCU JINA on CKD stage IIIb - Baseline creatinine is between 1.4 and 1.6 as of March 2025 - Urine output seems to be improving -Renal biopsy for Saturday if renal function is not recovering -Effient on hold okay per discussion with Dr. Garrison but will need help for 7days prior to biopsy - Continue Bolaños and monitor for renal recovery - Serologies were unremarkable - Nephrology following-appreciate input - Will decide on ongoing needs in the next 24 hours 06/11: On admission patient creatinine was 8.74, creatinine 10.7 and then fluctuates, today 7.70. BUN fluctuates between 70-90. [employer] Professor report reviewed. Patient urine output is good. Hemodialysis today. Serologies are negative. Plan for kidney biopsy on Saturday. Likely tentative discharge on Saturday. Anion gap metabolic acidosis - Much improved and is improving with improved renal function Acute on chronic anemia - Stable - No signs of acute drop at this time - Will continue to monitor - Baseline appears to be between 11 and 13 - 06/11 hemoglobin 8.9 decreased from 12.0. His baseline hemoglobin is about 12 in November 2024. Not on any scheduled anticoagulant. Only on baby aspirin. CAD/carotid artery stenosis/essential hypertension/hyperlipidemia/history of TIA - No stents within the last 12 months - Effient on hold for renal biopsy --> discussed with cardiology - continue home aspirin - Continue home carvedilol - continue home amlodipine - Lisinopril on hold due to renal dysfunction - Continue isosorbide mononitrate - Follows with vascular and cardiology as an outpatient - BP is overall improved DM-2 - Hold metformin - Hold glimepiride - Blood sugars now trending up again with ongoing dialysis - Will increase back to home dose of basal insulin and uptitrate his sliding scale to high dose with fasting blood sugars greater than 200 this morning - SSI GERD - Continue famotidine Seasonal allergies - Continue home loratadine 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 - Bolaños in place DVT prophylaxis - Continue subcu heparin CODE STATUS - Full code Charges/Coding Visit Charges Inpatient E&M: 61711 Subs Hosp L2 06/11/25 8292 <Electronically signed by Fawad Bates MD> Cosigner Signature (if applicable): CC: ~ Signed [facility] Work Phone: 1(485) 728-428309-26-2025 Progress note Author Yohannes Santiago [facility] Note Date/Time June 11, 2025 2:23pm [facility] Medical Records Department [address] [place] [address] Progress Note - Nephrology 06/11/25 1422 MR#: [id number] Acct: [id number] Name: COLEMAN DAVIES Rep #:[id number] : 1950 74 From: Yohannes doran MD PCP: Dr. Briseyda Sinclair MD Status:ADM IN Location: [place] [address] Subjective Subjective good urine output. cr higher. HD today Objective Data Objective Data Vital Signs: Vital Signs Temp Pulse Resp BP Pulse Ox O2 Del Method O2 Flow Rate 98.2 F 87 18 129/67 H 95 Room Air 2 06/11/25 13:55 06/11/25 13:55 06/11/25 13:55 06/11/25 13:55 06/11/25 13:55 06/11/25 13:55 06/07/25 05:00 Oxygen Flow Rate (L/min) 2 Oxygen Delivery Method Room Air Weight: 81 kg Body Mass Index (BMI) 24.2 Intake & Output: Intake and Output for Last 24 Hours 06/09/25 06/10/25 06/11/25 23:59 23:59 23:59 Intake Total 480 / 480 360 / 360 Output Total 3725 / 3725 5500 / 5500 1400 / 1400 Balance -3245 / -3245 -5500 / -5500 -1040 / -1040 Lab / Micro Data 06/11/25 04:43 06/11/25 04:43 Labs: Laboratory Results - last 24 hr 06/10/25 16:41: POC Glucose 332 H 06/10/25 20:55: POC Glucose 199 H 06/11/25 04:43: WBC 6.0, RBC 2.79 L, Hgb 8.9 L, Hct 25.4 L, MCV 91.0, MCH 31.9, MCHC 35.0, RDW Std Deviation 41.8, RDW Coeff of Rich 12.7, Plt Count 252, MPV 10.0, Immature Gran % (Auto) 0.200, Neut % (Auto) 59.8, Lymph % (Auto) 17.4 L, [place] % (Auto) 15.4 H, Eos % (Auto) 6.9 H, Baso % (Auto) 0.3, Absolute Neuts (auto) 3.6, Absolute Lymphs (auto) 1.04, Nucleated RBC % 0, Sodium 143, Potassium 3.8, Chloride 104, Carbon Dioxide 21.5, Anion Gap 17 H, BUN 90 H, Creatinine 7.70 H*, Estim Creat Clear Calc 9.24 L*, Est GFR (MDRD) Non-Af 7 L, BUN/Creatinine Ratio 11.7, Glucose 160 H, Calcium 8.3 06/11/25 07:44: POC Glucose 167 H Micro: Microbiology 06/05/25 12:10 Urine Catheter - Bolaños Urine Culture - Final Culture exhibits no growth. 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 Patient presented to hospital with 2-day history of intractable nausea/vomiting,anorexia and generalized weakness. Patient was found to have acute kidney injury on chronic kidney disease associated with hyperkalemia and severe metabolic acidosis. Nephrology is asked to the patient because of JINA, metabolic acidosis and hyperkalemia. Acute kidney injury on chronic kidney disease stage G3b. Baseline creatinine about 1.4-1.6 as of March 2025. Presented with 2 days of nausea. Found to have renal failure, worsening. Creatinine is up to 10. Initial urine analysis with protein Renal ultrasound without any hydronephrosis Was not particularly hypotensive. Denies any yywf-aed-cskqfdx supplements. He started taking a probiotic due to diarrhea over the last 6 weeks or so. started HD 06/07/25 HD today. see orders Urine output has picked up. Will hold dialysis after today and monitor labs. If renal function gets better, he will not need any further intervention. If renal function does not improve, he will need kidney biopsy. Tentatively tunneled dialysis catheter also. Discussed with family at bedside. Renal diet for now. 06/10/25. urine output is very good. 1.8 L. cr ok. lytes are ok. serologies are negative. possible its all ATN. repeat labs in am. further decision on HD depending on labs tomorrow. dw family bedside 06/11/25. Cr higher. kind of surprising since his urine output is pretty good. HDtoday. serologies are all negative. will plan for biopsy on saturday. likely TDC on saturday. will dw hospitalist 06/11/25 1423 <Electronically signed by Yohannes Santiago MD> Cosigner Signature (if applicable): CC: ~ Signed [facility] Work Phone: 1(825) 555-765609-25-2025 Progress note Author Yohannes Santiago [facility] Note Date/Time June 10, 2025 4:43pm [facility] Medical Records Department [address] [place] [address] Progress Note - Nephrology 06/10/25 1642 MR#: [id number] Acct: [id number] Name: COLEMAN DAVIES Rep #:[id number] : 1950 74 From: Yohannes doran MD PCP: Dr. Briseyda Sinclair MD Status:ADM IN Location: [place] [address] Subjective Subjective no new complaints Objective Data Objective Data Vital Signs: Vital Signs Temp Pulse Resp BP Pulse Ox O2 Del Method O2 Flow Rate 97.8 F 85 16 129/62 H 94 Room Air 2 06/10/25 10:06/10/25 10:06/10/25 10:06/10/25 10:06/10/25 10:06/10/25 10:06/07/25 05:00 Oxygen Flow Rate (L/min) 2 Oxygen Delivery Method Room Air Weight: 84.5 kg Body Mass Index (BMI) 25.2 Intake & Output: Intake and Output for Last 24 Hours 0906/09/25 06/10/25 23:59 23:59 23:59 Intake Total 480 / 480 Output Total 3070 / 3070 3725 / 3725 185 / 1849 Balance -3070 / -3070 -3245 / -3245 -1850 / -1850 Lab / Micro Data 06/09/25 05:19 06/10/25 05:13 Labs: Laboratory Results - last 24 hr 06/07/25 05:10: Total Protein (PEP) 4.4 L, Globulin 2.1 L, IgG 303 L, IgA 196, IgM 21, Immunofixation Screen Comment, Albumin (NATHAN) 2.3 L, Albumin/Globulin (NATHAN) 1.1, Ejava-7-Vxznbwdsb NATHAN 0.2, Spcwq-5-Ddyxmumih NATHAN 0.9, Beta-Globulins (NATHAN) 0.7, Gamma Globulins (NATHAN) 0.3 L, NATHAN M-Guillermo Not Observed, NATHAN Comments Comment, c-ANCA Antibody <1:20, Atypical p-ANCA <1:20, p-ANCA Antibody <1:20, Glomerular Base Memb Ab < 0.2, Complement C3 130 06/09/25 16:19: POC Glucose 265 H 06/09/25 22:17: POC Glucose 334 H 06/10/25 05:13: Sodium 141, Potassium 4.1, Chloride 103, Carbon Dioxide 21.5, Anion Gap 16 H, BUN 72 H, Creatinine 6.79 H, Estim Creat Clear Calc 10.48 L, Est GFR (MDRD) Non-Af 8 L, BUN/Creatinine Ratio 10.6, Glucose 258 H, Calcium 8.5 06/10/25 06:36: POC Glucose 230 H 06/10/25 11:23: POC Glucose 272 H Micro: Microbiology 06/05/25 12:10 Urine Catheter - Bolaños Urine Culture - Final Culture exhibits no growth. Rhythm Strip Rhythm Strip: Sinus Rhythm Rate: 85 Ectopy: None Physical Exam Narrative Alert awake oriented x 3 no obvious distress no pallor no icterus no JVD s1s2 no murmurs lungs clear abdomen soft no organomegaly no edema no cyanosis bolaños + Assessment & Plan Assessment/Plan (1) Acute renal failure: (2) Hyperkalemia, diminished renal excretion: (3) Acute metabolic acidosis: (4) Essential hypertension: (5) Type 2 diabetes mellitus: QUALIFIERS: Diabetes mellitus halfway insulin use: without marine oil terminal superintendent use Diabetes mellitus complication status: with circulatory complication Diabetes mellitus complication detail: with other circulatory complications Qualified Code(s): E11.59 - Type 2 diabetes mellitus with other circulatory complications PLAN: Plan Assessment/Plan: The patient is a 74-year-old male with past history of CKD stage G3b, type 2 diabetes mellitus, hypertension, CAD status post PCI, PAD, stroke, hypothyroidism, BPH, iron deficiency anemia, and hyperlipidemia. Patient presented to hospital with 2-day history of intractable nausea/vomiting,anorexia and generalized weakness. Patient was found to have acute kidney injury on chronic kidney disease associated with hyperkalemia and severe metabolic acidosis. Nephrology is asked to the patient because of JINA, metabolic acidosis and hyperkalemia. Acute kidney injury on chronic kidney disease stage G3b. Baseline creatinine about 1.4-1.6 as of March 2025. Presented with 2 days of nausea. Found to have renal failure, worsening. Creatinine is up to 10. Initial urine analysis with protein Renal ultrasound without any hydronephrosis Was not particularly hypotensive. Denies any tzkg-ces-efetdqi supplements. He started taking a probiotic due to diarrhea over the last 6 weeks or so. started HD 06/07/25 HD today. see orders Urine output has picked up. Will hold dialysis after today and monitor labs. If renal function gets better, he will not need any further intervention. If renal function does not improve, he will need kidney biopsy. Tentatively tunneled dialysis catheter also. Discussed with family at bedside. Renal diet for now. 06/10/25. urine output is very good. 1.8 L. cr ok. lytes are ok. serologies are negative. possible its all ATN. repeat labs in am. further decision on HD depending on labs tomorrow. dw family bedside 06/10/25 3424 <Electronically signed by Yohannes Santiago MD> Cosigner Signature (if applicable): CC: ~ Signed [facility] Work Phone: 1(120) [phone] Progress note Author Candy Vo [facility] Note Date/Time June 10, 2025 3:15pm [facility] Medical Records Department [facility] [place] [address] Progress Note - Hospitalist 06/10/25 0738 MR#: [id number] Acct: [id number] Name: COLEMAN DAVIES Rep #:[id number] : 1950 74 From: Candy Vo DO PCP: Dr. Briseyda Sinclair MD Status:ADM IN Location: [place] [address] Reason for Visit Chief Complaint: Intractable N/V Subjective Subjective No issues overnight. Patient is feeling well today. It does appear that he is having signs of renal recovery with improved urine output. Objective Data Objective Data Vital Signs: Vital Signs Temp Pulse Resp BP Pulse Ox O2 Del Method O2 Flow Rate 98.2 F 82 16 161/73 H 94 Room Air 2 06/10/25 05:17 06/10/25 05:17 06/10/25 05:17 06/10/25 05:17 06/10/25 05:17 06/10/25 05:17 06/07/25 05:00 Oxygen Flow Rate (L/min) 2 Oxygen Delivery Method Room Air Weight: 84.5 kg Body Mass Index (BMI) 25.2 Intake & Output: Intake and Output for Last 24 Hours 06/08/25 06/09/25 06/10/25 23:59 23:59 23:59 Intake Total 480 / 480 Output Total 3070 / 3070 3725 / 3725 1850 / 1850 Balance -3070 / -3070 -3245 / -3245 -1850 / -1850 Lab / Micro Data 06/09/25 05:19 06/10/25 05:13 Labs: Laboratory Results - last 24 hr 06/07/25 05:10: Total Protein (PEP) 4.4 L, Globulin 2.1 L, IgG 303 L, IgA 196, IgM 21, Immunofixation Screen Comment, Albumin (NATHAN) 2.3 L, Albumin/Globulin (NATHAN) 1.1, Zothq-4-Yxlhirfvb NATHAN 0.2, Oxibn-2-Czybtdmxg NATHAN 0.9, Beta-Globulins (NATHAN) 0.7, Gamma Globulins (NATHAN) 0.3 L, NATHAN M-Guillermo Not Observed, NATHAN Comments Comment, c-ANCA Antibody <1:20, Atypical p-ANCA <1:20, p-ANCA Antibody <1:20, Glomerular Base Memb Ab < 0.2, Complement C3 130 06/09/25 12:22: POC Glucose 128 H 06/09/25 16:19: POC Glucose 265 H 06/09/25 22:17: POC Glucose 334 H 06/10/25 05:13: Sodium 141, Potassium 4.1, Chloride 103, Carbon Dioxide 21.5, Anion Gap 16 H, BUN 72 H, Creatinine 6.79 H, Estim Creat Clear Calc 10.48 L, Est GFR (MDRD) Non-Af 8 L, BUN/Creatinine Ratio 10.6, Glucose 258 H, Calcium 8.5 06/10/25 06:36: POC Glucose 230 H Micro: Microbiology 06/05/25 12:10 Urine Catheter - Bolaños Urine Culture - Final Culture exhibits no growth. Rhythm Strip Rhythm Strip: Sinus Rhythm Rate: 85 Ectopy: None Physical Exam Const alert, oriented x3, no apparent distress, average body habitus and well nourished; Negative for healthy appearing Constitutional Narrative: Older, white male, sitting up in bed, watching television, currently appears comfortable, does not appear toxic HEENT head/scalp atraumatic and moist oral mucous membranes Head and Scalp: normocephalic Neck Neck Narrative: Dialysis catheter in right neck with bandage in place Resp normal respiratory effort, no retractions, no use of accessory muscles and clearto auscultation bilaterally Auscultation: Negative for rales, rhonchi or wheezes Cardio regular rate, regular rhythm, S1 normal heart sound, S2 normal heart sound, no murmurs, no rub, no gallops and no clicks GI normal to inspection, nondistended, normoactive bowel sounds, soft to palpation and non-tender Narrative: Significantly improved urine output and seems to post ATN diuresis appearing type urine Extremity no clubbing, cyanosis or edema Extremity Narrative: 2+ pedal and radial pulses Neuro moves all extremities and no focal motor deficits Neuro Narrative: Generalized weakness noted Psych affect normal Psych Narrative: Very pleasant, seems much happier today Assessment & Plan Assessment/Plan (1) Hypoglycemia: (2) Acute metabolic acidosis: (3) Hyperkalemia, diminished renal excretion: (4) Acute renal failure: (5) Acute uremia: PLAN: Plan JINA on CKD stage IIIb - Baseline creatinine is between 1.4 and 1.6 as of March 2025 - No dialysis for today - Urine output seems to be improving -Renal biopsy for Saturday if renal function is not recovering -Effient on hold okay per discussion with Dr. Garrison but will need help for 7days prior to biopsy - Continue Bolaños and monitor for renal recovery - Serologies were unremarkable - Nephrology following-appreciate input - Will decide on ongoing needs in the next 24 hours Anion gap metabolic acidosis - Much improved and is improving with improved renal function Acute on chronic anemia - Stable - No signs of acute drop at this time - Will continue to monitor - Baseline appears to be between 11 and 13 - Repeat CBC in a.m. CAD/carotid artery stenosis/essential hypertension/hyperlipidemia/history of TIA - No stents within the last 12 months - Effient on hold for renal biopsy --> discussed with cardiology - continue home aspirin - Continue home carvedilol - continue home amlodipine - Lisinopril on hold due to renal dysfunction - Continue isosorbide mononitrate - Follows with vascular and cardiology as an outpatient - BP is overall improved DM-2 - Hold metformin - Hold glimepiride - Blood sugars now trending up again with ongoing dialysis - Will increase back to home dose of basal insulin and uptitrate his sliding scale to high dose with fasting blood sugars greater than 200 this morning - SSI GERD - Continue famotidine Seasonal allergies - Continue home loratadine 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 - Bolaños in place DVT prophylaxis - Continue subcu heparin CODE STATUS - Full code Charges/Coding Visit Charges Inpatient E&M: 11437 Subs Hosp L2 06/10/25 1515 <Electronically signed by Candy Vo DO> Cosigner Signature (if applicable): CC: ~ Signed [facility] Work Phone: [phone]) [phone] Progress note Author Candy Vo [facility] Note Date/Time June 09, 2025 9:22pm [facility] Medical Records Department [address] [place] [address] Progress Note - Hospitalist 06/09/25 0729 MR#: [id number] Acct: [id number] Name: COLEMAN DAVIES Rep #:[id number] : 1950 74 From: Candy Vo DO PCP: Dr. Briseyda Sinclair MD Status:ADM IN Location: [address] Reason for Visit Chief Complaint: Intractable N/V Subjective Subjective No issues overnight. Dialysis catheter is somewhat temperamental. Urine outputseems to be improving so I am questioning whether or not he has having some renal recovery. Nephrology agrees. Reevaluate tomorrow and if we feel that he will need to tunneled catheter will consult general surgery. Objective Data Objective Data Vital Signs: Vital Signs Temp Pulse Resp BP Pulse Ox O2 Del Method O2 Flow Rate 98.3 F 85 16 155/71 H 95 Room Air 2 06/09/25 03:53 06/09/25 03:53 06/09/25 03:53 06/09/25 03:53 06/09/25 03:53 06/09/25 03:53 06/07/25 05:00 Oxygen Flow Rate (L/min) 2 Oxygen Delivery Method Room Air Weight: 84.6 kg Body Mass Index (BMI) 25.2 Intake & Output: Intake and Output for Last 24 Hours 06/07/25 06/08/25 06/09/25 23:59 23:59 23:59 Intake Total 1710.00 / 1710.00 Output Total 1150 / 1150 3070 / 3070 1625 / 1625 Balance 560.00 / 560.00 -3070 / -3070 -1625 / -1625 Lab / Micro Data 06/09/25 05:19 06/09/25 05:19 Labs: Laboratory Results - last 24 hr 06/07/25 05:10: Double Strand DNA Ab <1 06/08/25 11:23: POC Glucose 99 06/08/25 16:25: POC Glucose 240 H 06/08/25 21:46: POC Glucose 266 H 06/09/25 05:19: WBC 4.7, RBC 3.12 L, Hgb 10.1 L, Hct 28.9 L, MCV 92.6, MCH 32.4 H, MCHC 34.9, RDW Std Deviation 43.1, RDW Coeff of Rich 12.7, Plt Count 227, MPV 10.3, Immature Gran % (Auto) 0.200, Neut % (Auto) 64.2, Lymph % (Auto) 13.4 L, [place] % (Auto) 17.6 H, Eos % (Auto) 4.2, Baso % (Auto) 0.4, Absolute Neuts (auto) 3.0, Absolute Lymphs (auto) 0.63 L, Nucleated RBC % 0, Sodium 139, Potassium 4.4, Chloride 99, Carbon Dioxide 23.7, Anion Gap 16 H, BUN 79 H, Creatinine 7.96H*, Estim Creat Clear Calc 8.94 L*, Est GFR (MDRD) Non-Af 7 L, BUN/Creatinine Ratio 9.9 L, Glucose 199 H, Calcium 8.4 06/09/25 06:18: POC Glucose 184 H Micro: Microbiology 06/05/25 12:10 Urine Catheter - Bolaños Urine Culture - Final Culture exhibits no growth. Rhythm Strip Rhythm Strip: Sinus Rhythm Rate: 85 Ectopy: None Physical Exam Const alert, oriented x3, no apparent distress and average body habitus; Negative for healthy appearing Constitutional Narrative: Older, white male, lying in bed currently on dialysis, dialysis nurse at bedside, currently appears comfortable, does not appear toxic HEENT head/scalp atraumatic and moist oral mucous membranes HEENT Narrative: Mallampati 3, no thrush Head and Scalp: normocephalic Resp normal respiratory effort, no retractions, no use of accessory muscles and clearto auscultation bilaterally Auscultation: Negative for rales, rhonchi or wheezes Cardio regular rate, regular rhythm, S1 normal heart sound, S2 normal heart sound, no murmurs, no rub, no gallops and no clicks GI normal to inspection, nondistended, normoactive bowel sounds, soft to palpation and non-tender Narrative: Urine output seems to be improving significantly and urine is clear without any signs of hematuria Extremity no clubbing, cyanosis or edema Extremity Narrative: Edema has resolved, pedal and radial pulses are 2+ Neuro moves all extremities and no focal motor deficits Neuro Narrative: Generalized weakness noted Psych affect normal Psych Narrative: Not tearful today, patient seems to be accepting this much more readily, was actually jovial today and joking intermittently. Very pleasant Assessment & Plan Assessment/Plan (1) Hypoglycemia: (2) Acute metabolic acidosis: (3) Hyperkalemia, diminished renal excretion: (4) Acute renal failure: (5) Acute uremia: PLAN: Plan JINA on CKD stage IIIb - Baseline creatinine is between 1.4 and 1.6 as of March 2025 - Today's day 3 of dialysis--> no dialysis tomorrow and will reassess - Plan is to assess for tunneled catheter need tomorrow - Renal ultrasound is unremarkable -Renal biopsy for Saturday if renal function is not recovering -Effient on hold okay per discussion with Dr. Garrison but will need help for 7days prior to biopsy - Will likely need renal biopsy - Hold Effient-->d/w Dr. Garrison - Continue Bolaños and monitor for renal recovery - Serologies thus far unremarkable - Nephrology following-appreciate input Acute hypoglycemia - Hypoglycemia has resolved with a.m. blood sugar at 199 - Will increase Lantus as blood sugars are starting to recover about that back on dialysis - Continue SSI - Continue to follow with Accu-Cheks Anion gap metabolic acidosis -Resolving with dialysis--> gap is only 16 - Anion gap is improved and bicarb is in the normal range however patient likelystill acidotic - Repeat dialysis today Acute on chronic anemia - Stable - No signs of acute drop at this time - Will continue to monitor - Baseline appears to be between 11 and 13 - Repeat CBC in a.m. CAD/carotid artery stenosis/essential hypertension/hyperlipidemia/history of TIA - No stents within the last 12 months - Effient on hold for renal biopsy --> discussed with cardiology - continue home aspirin - Continue home carvedilol - continue home amlodipine - Lisinopril on hold due to renal dysfunction - Continue isosorbide mononitrate - Follows with vascular and cardiology as an outpatient DM-2 - Hold metformin - Hold glimepiride -Continue insulin as ordered with reduced dose with improved blood sugars today - SSI GERD - Continue famotidine Seasonal allergies - Continue home loratadine 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 - Bolaños in place DVT prophylaxis - Continue subcu heparin CODE STATUS - Full code Charges/Coding Visit Charges Inpatient E&M: 49411 Subs Hosp L2 06/09/252121 <Electronically signed by Candy Vo DO> Cosigner Signature (if applicable): CC: ~ Signed [facility] Work Phone: [phone] 511-942109-24-2025 Progress note Author Yohannes Santiago [facility] Note Date/Time June 09, 2025 10:56am [facility] Medical Records Department [facility] [place] [address] Progress Note - Nephrology 06/09/25 1055 MR#: [id number] Acct: [id number] Name: COLEMAN DAVIES Rep #:[id number] : 1950 74 From: Yohannes doran MD PCP: Dr. Briseyda Sinclair MD Status:ADM IN Location: [place] [address] Subjective Subjective Urine output is good. Objective Data Objective Data Vital Signs: Vital Signs Temp Pulse Resp BP Pulse Ox O2 Del Method O2 Flow Rate 98.4 F 80 14 181/70 H 95 Room Air 2 06/09/25 08:15 06/09/25 10:15 06/09/25 10:15 06/09/25 10:15 06/09/25 10:15 06/09/25 10:15 06/07/25 05:00 Oxygen Flow Rate (L/min) 2 Oxygen Delivery Method Room Air Weight: 84.6 kg Body Mass Index (BMI) 25.2 Intake & Output: Intake and Output for Last 24 Hours 06/07/25 06/08/25 06/09/25 23:59 23:59 23:59 Intake Total 1710.00 / 1710.00 Output Total 1150 / 1150 3070 / 3070 1625 / 1625 Balance 560.00 / 560.00 -3070 / -3070 -1625 / -1625 Lab / Micro Data 06/09/25 05:19 06/09/25 05:19 Labs: Laboratory Results - last 24 hr 06/07/25 05:10: Double Strand DNA Ab <1 06/08/25 11:23: POC Glucose 99 06/08/25 16:25: POC Glucose 240 H 06/08/25 21:46: POC Glucose 266 H 06/09/25 05:19: WBC 4.7, RBC 3.12 L, Hgb 10.1 L, Hct 28.9 L, MCV 92.6, MCH 32.4 H, MCHC 34.9, RDW Std Deviation 43.1, RDW Coeff of Rich 12.7, Plt Count 227, MPV 10.3, Immature Gran % (Auto) 0.200, Neut % (Auto) 64.2, Lymph % (Auto) 13.4 L, [place] % (Auto) 17.6 H, Eos % (Auto) 4.2, Baso % (Auto) 0.4, Absolute Neuts (auto) 3.0, Absolute Lymphs (auto) 0.63 L, Nucleated RBC % 0, Sodium 139, Potassium 4.4, Chloride 99, Carbon Dioxide 23.7, Anion Gap 16 H, BUN 79 H, Creatinine 7.96H*, Estim Creat Clear Calc 8.94 L*, Est GFR (MDRD) Non-Af 7 L, BUN/Creatinine Ratio 9.9 L, Glucose 199 H, Calcium 8.4 06/09/25 06:18: POC Glucose 184 H Micro: Microbiology 06/05/25 12:10 Urine Catheter - Bolaños Urine Culture - Final Culture exhibits no growth. 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 Patient presented to hospital with 2-day history of intractable nausea/vomiting,anorexia and generalized weakness. Patient was found to have acute kidney injury on chronic kidney disease associated with hyperkalemia and severe metabolic acidosis. Nephrology is asked to the patient because of JINA, metabolic acidosis and hyperkalemia. Acute kidney injury on chronic kidney disease stage G3b. Baseline creatinine about 1.4-1.6 as of March 2025. Presented with 2 days of nausea. Found to have renal failure, worsening. Creatinine is up to 10. Initial urine analysis with protein Renal ultrasound without any hydronephrosis Was not particularly hypotensive. Denies any ateu-ixa-eyqtebd supplements. He started taking a probiotic due to diarrhea over the last 6 weeks or so. started HD 06/07/25 HD today. see orders Urine output has picked up. Will hold dialysis after today and monitor labs. If renal function gets better, he will not need any further intervention. If renal function does not improve, he will need kidney biopsy. Tentatively tunneled dialysis catheter also. Discussed with family at bedside. Renal diet for now. 06/09/25 1056 <Electronically signed by Yohannes Santiago MD> Cosigner Signature (if applicable): CC: ~ Signed [facility] Work Phone: [phone]) 102-706109-23-2025 Progress note Author Candy Vo [facility] Note Date/Time June 08, 2025 5:52pm [facility] Medical Records Department [address] [facility] [place] [address] Progress Note - Hospitalist 06/08/25 0750 MR#: [id number] Acct: [id number] Name: COLEMAN DAVIES Rep #:[id number] : 1950 74 From: Candy Vo DO PCP: Dr. Briseyda Sinclair MD Status:ADM IN Location: [place] [address] Reason for Visit Chief Complaint: Intractable N/V Subjective Subjective No overnight issues. Patient states he is tired. He is agreeable to kidney biopsy. We did discuss that we are holding his Effient and interventional radiology would like us to hold it for 7 days and that pushes his biopsy until Saturday. We did discuss the general overall plan for dialysis and nephrology. Objective Data Objective Data Vital Signs: Vital Signs Temp Pulse Resp BP Pulse Ox O2 Del Method O2 Flow Rate 98.2 F 88 16 161/69 H 93 Room Air 2 06/08/25 06:23 06/08/25 06:23 06/08/25 06:23 06/08/25 06:23 06/08/25 06:23 06/08/25 06:23 06/07/25 05:00 Oxygen Flow Rate (L/min) 2 Oxygen Delivery Method Room Air Weight: 84.2 kg Body Mass Index (BMI) 25.1 Intake & Output: Intake and Output for Last 24 Hours 06/06/25 06/07/25 06/08/25 23:59 23:59 23:59 Intake Total 4277.5 / 4277.5 1710.00 / 1710.00 Output Total 220 / 220 1150 / 1150 300 / 300 Balance 4057.5 / 4057.5 560.00 / 560.00 -300 / -300 Lab / Micro Data 06/08/25 05:11 06/08/25 05:11 Labs: Laboratory Results - last 24 hr 06/07/25 11:12: POC Glucose 133 H 06/07/25 17:06: POC Glucose 94 06/07/25 22:24: POC Glucose 153 H 06/08/25 05:11: WBC 5.8, RBC 3.00 L, Hgb 9.6 L, Hct 27.5 L, MCV 91.7, MCH 32.0, MCHC 34.9, RDW Std Deviation 42.7, RDW Coeff of Rich 12.9, Plt Count 220, MPV 10.4, Immature Gran % (Auto) 0.300, Neut % (Auto) 66.7, Lymph % (Auto) 12.7 L, [place] % (Auto) 15.0 H, Eos % (Auto) 5.0, Baso % (Auto) 0.3, Absolute Neuts (auto) 3.8, Absolute Lymphs (auto) 0.73 L, Nucleated RBC % 0, PT 13.4, INR 1.0, Sodium 140, Potassium 4.2, Chloride 98, Carbon Dioxide 23.2, Anion Gap 19 H, BUN 82 H, Creatinine 8.87 H*, Estim Creat Clear Calc 8.02 L*, Est GFR (MDRD) Non-Af 6 L, BUN/Creatinine Ratio 9.2 L, Glucose 93, Calcium 8.2 06/08/25 06:20: POC Glucose 95 Micro: Microbiology 06/05/25 12:10 Urine Catheter - Bolañso Urine Culture - Final Culture exhibits no growth. Radiography Diagnostic Testing: Radiology Impression Chest X-Ray 06/07/25 12:05 IMPRESSION: The tip of the right-sided central catheter is in the midportion of the superiorvena cava. Findings suggestive of mild degree of vascular congestion. Reading Location: [place] [address] Rhythm Strip Rhythm Strip: Sinus Rhythm Rate: 85 Ectopy: None Physical Exam Const alert, oriented x3, no apparent distress and average body habitus; Negative for healthy appearing Constitutional Narrative: Older, white male, lying in bed currently on dialysis, dialysis nurse at bedside,, at bedside, currently appears comfortable, does not appear toxic HEENT head/scalp atraumatic and moist oral mucous membranes Head and Scalp: normocephalic Neck Neck Narrative: Dialysis catheter in right neck with bandage in place Resp normal respiratory effort, no retractions, no use of accessory muscles and clearto auscultation bilaterally Auscultation: Negative for rales, rhonchi or wheezes Cardio regular rate, regular rhythm, S1 normal heart sound, S2 normal heart sound, no murmurs, no rub, no gallops and no clicks GI normal to inspection, nondistended, normoactive bowel sounds, soft to palpation and non-tender Narrative: Bolaños catheter in place with hematuria noted. Improved urine output Extremity Extremity Narrative: Edema is overall improved Neuro moves all extremities and no focal motor deficits Neuro Narrative: Generalized weakness noted Psych Psych Narrative: Less tearful today but still affect is flatter than likely normal but appropriate for the current situation Assessment & Plan Assessment/Plan (1) Hypoglycemia: (2) Acute metabolic acidosis: (3) Hyperkalemia, diminished renal excretion: (4) Acute renal failure: (5) Acute uremia: PLAN: Plan JINA on CKD stage IIIb - Baseline creatinine is between 1.4 and 1.6 as of March 2025 -Now on dialysis - Urine output seems to be improving some next-plan is for dialysis tomorrow then break with reevaluation for dialysis needs on Saturday -If he will need ongoing dialysis at that time will need to pursue a temporary dialysis catheter - Renal ultrasound is unremarkable -Renal biopsy for Saturday -Effient on hold okay per discussion with Dr. Garrison but will need help for 7days prior to biopsy - Plan is for temporary dialysis catheter placement and initiation of hemodialysis - Will likely need renal biopsy - Hold Effient-->d/w Dr. Garrison - Continue Bolaños and monitor for renal recovery Acute hypoglycemia - Hypoglycemia has resolved with a.m. blood sugar at 93. - Continue Lantus 22 units down from 36 units - Continue SSI - Continue to follow with Accu-Cheks Anion gap metabolic acidosis -Resolving with dialysis - Anion gap is improved and bicarb is in the normal range however patient likelystill acidotic Repeat dialysis today Acute on chronic anemia - Stable - No signs of acute drop at this time - Will continue to monitor - Baseline appears to be between 11 and 13 - Repeat CBC in a.m. CAD/carotid artery stenosis/essential hypertension/hyperlipidemia/history of TIA - No stents within the last 12 months - Effient on hold for renal biopsy --> discussed with cardiology - continue home aspirin - Continue home carvedilol - continue home amlodipine - Lisinopril on hold due to renal dysfunction - Continue isosorbide mononitrate - Follows with vascular and cardiology as an outpatient DM-2 - Hold metformin - Hold glimepiride -Continue insulin as ordered with reduced dose with improved blood sugars today - SSI GERD - Continue famotidine Seasonal allergies - Continue home loratadine 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 - Bolaños in place DVT prophylaxis - Continue subcu heparin CODE STATUS - Full code Charges/Coding Visit Charges Inpatient E&M: 95104 Subs Hosp L2 06/08/25 9671 <Electronically signed by Candy Vo DO> Cosigner Signature (if applicable): CC: ~ Signed [facility] Work Phone: [phone]) 259-724109-23-2025 Progress note Author Yohannes Santiago [facility] Note Date/Time June 08, 2025 12:51pm [facility] Medical Records Department [address] [place] [address] Progress Note - Nephrology 06/08/25 1250 MR#: [id number] Acct: [id number] Name: COLEMAN DAVIES Rep #:[id number] : 1950 74 From: Yohannes doran MD PCP: Dr. Briseyda Sinclair MD Status:ADM IN Location: [place] [address] Subjective Subjective seen on HD today Objective Data Objective Data Vital Signs: Vital Signs Temp Pulse Resp BP Pulse Ox O2 Del Method O2 Flow Rate 98.0 F 85 14 157/69 H 95 Room Air 2 06/08/25 11:30 06/08/25 11:30 06/08/25 11:30 06/08/25 11:30 06/08/25 11:30 06/08/25 11:30 06/07/25 05:00 Oxygen Flow Rate (L/min) 2 Oxygen Delivery Method Room Air Weight: 82 kg Body Mass Index (BMI) 24.5 Intake & Output: Intake and Output for Last 24 Hours 06/06/25 06/07/25 06/08/25 23:59 23:59 23:59 Intake Total 4277.5 / 4277.5 1710.00 / 1710.00 Output Total 220 / 220 1150 / 1150 2520 / 2520 Balance 4057.5 / 4057.5 560.00 / 560.00 -2520 / -2520 Lab / Micro Data 06/08/25 05:11 06/08/25 05:11 Labs: Laboratory Results - last 24 hr 06/07/25 17:06: POC Glucose 94 06/07/25 22:24: POC Glucose 153 H 06/08/25 05:11: WBC 5.8, RBC 3.00 L, Hgb 9.6 L, Hct 27.5 L, MCV 91.7, MCH 32.0, MCHC 34.9, RDW Std Deviation 42.7, RDW Coeff of Rich 12.9, Plt Count 220, MPV 10.4, Immature Gran % (Auto) 0.300, Neut % (Auto) 66.7, Lymph % (Auto) 12.7 L, [place] % (Auto) 15.0 H, Eos % (Auto) 5.0, Baso % (Auto) 0.3, Absolute Neuts (auto) 3.8, Absolute Lymphs (auto) 0.73 L, Nucleated RBC % 0, PT 13.4, INR 1.0, Sodium 140, Potassium 4.2, Chloride 98, Carbon Dioxide 23.2, Anion Gap 19 H, BUN 82 H, Creatinine 8.87 H*, Estim Creat Clear Calc 8.02 L*, Est GFR (MDRD) Non-Af 6 L, BUN/Creatinine Ratio 9.2 L, Glucose 93, Calcium 8.2 06/08/25 06:20: POC Glucose 95 06/08/25 11:23: POC Glucose 99 Micro: Microbiology 06/05/25 12:10 Urine Catheter - Bolaños Urine Culture - Final Culture exhibits no growth. Rhythm Strip Rhythm Strip: Sinus Rhythm Rate: 85 Ectopy: None Physical Exam Narrative Alert awake oriented x 3 no obvious distress no pallor no icterus no JVD s1s2 no murmurs lungs clear abdomen soft no organomegaly no edema no cyanosis bolaños + Assessment & Plan Assessment/Plan (1) Acute renal failure: (2) Hyperkalemia, diminished renal excretion: (3) Acute metabolic acidosis: (4) Essential hypertension: (5) Type 2 diabetes mellitus: QUALIFIERS: Diabetes mellitus halfway insulin use: without marine oil terminal superintendent use Diabetes mellitus complication status: with circulatory complication Diabetes mellitus complication detail: with other circulatory complications Qualified Code(s): E11.59 - Type 2 diabetes mellitus with other circulatory complications PLAN: Plan Assessment/Plan: The patient is a 74-year-old male with past history of CKD stage G3b, type 2 diabetes mellitus, hypertension, CAD status post PCI, PAD, stroke, hypothyroidism, BPH, iron deficiency anemia, and hyperlipidemia. Patient presented to hospital with 2-day history of intractable nausea/vomiting,anorexia and generalized weakness. Patient was found to have acute kidney injury on chronic kidney disease associated with hyperkalemia and severe metabolic acidosis. Nephrology is asked to the patient because of JINA, metabolic acidosis and hyperkalemia. Acute kidney injury on chronic kidney disease stage G3b. Baseline creatinine about 1.4-1.6 as of March 2025. Presented with 2 days of nausea. Found to have renal failure, worsening. Creatinine is up to 10. Initial urine analysis with protein Renal ultrasound without any hydronephrosis Was not particularly hypotensive. Denies any vclp-wau-hgmbwba supplements. He started taking a probiotic due to diarrhea over the last 6 weeks or so. started HD 06/07/25 HD today. see orders dw Dr Vo. Ray is on hold. called and spoke to IR. prado hold is one week. wont be able to get biopsy till next week likely. will see renal function recovers in the mean time dw family at bedside 06/08/25 1251 <Electronically signed by Yohannes Santiago MD> Cosigner Signature (if applicable): CC: ~ Signed [facility] Work Phone: 1(543) 525-667509-22-2025 Progress note Author Candy Vo [facility] Note Date/Time June 07, 2025 7:53pm [facility] Medical Records Department [address] [facility] [place] [address] Progress Note - Hospitalist 06/07/2511 MR#: [id number] Acct: [id number] Name: COLEMAN DAVIES Rep #:[id number] : 1950 74 From: Candy Vo DO PCP: Dr. Briseyda Sinclair MD Status:ADM IN Location: [place] [address] Reason for Visit Chief Complaint: Intractable N/V Subjective Subjective No significant change in urine output. Plan is to start dialysis today. Discussed with patient and for need of temporary dialysis catheter and whatto expect. They are agreeable. We also did discuss that he may need a kidney biopsy. Patient does report that he is noticing his upper extremities feel somewhat swollen and tight. Objective Data Objective Data Vital Signs: Vital Signs Temp Pulse Resp BP Pulse Ox O2 Del Method O2 Flow Rate 97.4 F L 84 13 154/67 H 96 Room Air 2 06/07/25 05:00 06/07/25 07:00 06/07/25 07:00 06/07/25 07:00 06/07/25 07:00 06/07/25 07:00 06/07/25 05:00 Oxygen Flow Rate (L/min) 2 Oxygen Delivery Method Room Air Weight: 83.189 kg Body Mass Index (BMI) 24.8 Intake & Output: Intake and Output for Last 24 Hours 06/05/25 06/06/25 06/07/25 23:59 23:59 23:59 Intake Total 5750.00 / 5750.00 4277.5 / 4277.5 938.33 / 938.33 Output Total 125 / 195 220 / 220 150 / 150 Balance 5625.00 / 5555.00 4057.5 / 4057.5 788.33 / 788.33 Lab / Micro Data 06/07/25 05:10 06/07/25 05:10 Labs: Laboratory Results - last 24 hr 06/06/25 04:10: Phosphorus 6.4 H, Magnesium 1.6 06/06/25 12:28: POC Glucose 154 H 06/06/25 16:29: POC Glucose 119 H 06/06/25 21:41: POC Glucose 78 06/07/25 05:10: WBC 8.5, RBC 2.94 L, Hgb 9.4 L, Hct 26.7 L, MCV 90.8, MCH 32.0, MCHC 35.2, RDW Std Deviation 43.7, RDW Coeff of Rich 13.2, Plt Count 231, MPV 10.1, Immature Gran % (Auto) 0.400, Neut % (Auto) 71.0 H, Lymph % (Auto) 12.1 L,[place] % (Auto) 14.5 H, Eos % (Auto) 1.9, Baso % (Auto) 0.1, Absolute Neuts (auto)6.0, Absolute Lymphs (auto) 1.03, Nucleated RBC % 0, Sodium 140, Potassium 3.8, Chloride 94 L, Carbon Dioxide 24.3, Anion Gap 22 H, BUN 98 H, Creatinine 10.70 H*, Estim Creat Clear Calc 6.65 L*, Est GFR (MDRD) Non-Af 5 L, BUN/Creatinine Ratio 9.2 L, Glucose 62 L, Calcium 8.0, Magnesium 1.7, Total Bilirubin 0.24, AST22, ALT 20, Alkaline Phosphatase 53, Total Protein 4.7 L, Albumin 2.8 L, Globulin 1.9 L, Albumin/Globulin Ratio 1.5 06/07/25 06:46: POC Glucose 97 Rhythm Strip Rhythm Strip: Sinus Rhythm Rate: 85 Ectopy: None Physical Exam Const alert, oriented x3, no apparent distress and average body habitus; Negative for healthy appearing Constitutional Narrative: Older, white male, reclining in chair at the bedside, at bedside, currentlyappears comfortable, does not appear toxic HEENT head/scalp atraumatic and moist oral mucous membranes Head and Scalp: normocephalic Resp normal respiratory effort, no retractions, no use of accessory muscles and clearto auscultation bilaterally Auscultation: Negative for rales, rhonchi or wheezes Cardio regular rate, regular rhythm, S1 normal heart sound, S2 normal heart sound, no murmurs, no rub, no gallops and no clicks GI normal to inspection, nondistended, normoactive bowel sounds, soft to palpation and non-tender Narrative: Bolaños catheter in place with hematuria noted. Urine output is minimal Extremity Extremity Narrative: Trace to 1+ bilateral lower extremity edema, no cyanosis or clubbing, trace lower extremity edema Neuro moves all extremities and no focal motor deficits Neuro Narrative: Generalized weakness noted Psych affect normal Psych Narrative: Intermittently tearful with discussion Assessment & Plan Assessment/Plan (1) Hypoglycemia: (2) Acute metabolic acidosis: (3) Hyperkalemia, diminished renal excretion: (4) Acute renal failure: (5) Acute uremia: PLAN: Plan JINA on CKD stage IIIb - Baseline creatinine is between 1.4 and 1.6 as of March 2025 - Creatinine is now up to 10 - Renal ultrasound is unremarkable - At this point renal failure is unexplained I did not improve at all with IV fluids - Discontinue IV fluids - Plan is for temporary dialysis catheter placement and initiation of hemodialysis - Will likely need renal biopsy - Hold Effient-->d/w Dr. Garrison - Continue Bolaños and monitor for renal recovery Hyperkalemia - Resolved Acute hypoglycemia - Suspect related to insulin use and worsening renal function - Will back off on insulin to 22 units - Continue SSI - Continue to follow with Accu-Cheks Anion gap metabolic acidosis - Initially required some bicarb but since bicarb is normalized - Continue to monitor with BMP but should improve with dialysis - Anion gap should closed with dialysis Acute on chronic anemia - Down significantly from admission however has been getting quite a bit of fluids - No signs of acute drop at this time - Will continue to monitor - Baseline appears to be between 11 and 13 - Repeat CBC in a.m. CAD/carotid artery stenosis/essential hypertension/hyperlipidemia/history of TIA - No stents within the last 12 months - Effient on hold for potential renal biopsy --> discussed with cardiology - continue home aspirin - Continue home carvedilol - continue home amlodipine - Lisinopril on hold due to renal dysfunction - Continue isosorbide mononitrate - Follows with vascular and cardiology as an outpatient DM-2 - Hold metformin - Hold glimepiride - Continue insulin but reduced dose due to hypoglycemia likely related to decreased clearance with renal dysfunction checks as ordered - SSI GERD - Continue famotidine Seasonal allergies - Continue home loratadine 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 - Bolaños in place DVT prophylaxis - Continue subcu heparin CODE STATUS - Full code Charges/Coding Visit Charges Inpatient E&M: 51868 Subs Hosp L2 06/07/251952 <Electronically signed by Candy Vo DO> Cosigner Signature (if applicable): CC: ~ Signed [facility] Work Phone: 1(893) 677-506909-22-2025 Progress note Author Yohannes Santiago [facility] Note Date/Time June 07, 2025 10:58am [facility] Medical Records Department [address] [place] [address] Progress Note - Nephrology 06/07/255 MR#: [id number] Acct: [id number] Name: COLEMAN DAVIES Rep #:[id number] : 1950 74 From: Yohannes doran MD PCP: Dr. Briseyda Sinclair MD Status:ADM IN Location: ICU ICU01-1 Subjective Subjective No new complaints today. Objective Data Objective Data Vital Signs: Vital Signs Temp Pulse Resp BP Pulse Ox O2 Del Method O2 Flow Rate 97.4 F L 84 13 154/67 H 96 Room Air 2 06/07/25 05:00 06/07/25 07:00 06/07/25 07:00 06/07/25 07:00 06/07/25 07:00 06/07/25 07:00 06/07/25 05:00 Oxygen Flow Rate (L/min) 2 Oxygen Delivery Method Room Air Weight: 83.189 kg Body Mass Index (BMI) 24.8 Intake & Output: Intake and Output for Last 24 Hours 06/05/25 06/06/25 06/07/25 23:59 23:59 23:59 Intake Total 5750.00 / 5750.00 4277.5 / 4277.5 1230.00 / 1230.00 Output Total 125 / 195 220 / 220 150 / 150 Balance 5625.00 / 5555.00 4057.5 / 4057.5 1080.00 / 1080.00 Lab / Micro Data 06/07/25 05:10 06/07/25 05:10 Labs: Laboratory Results - last 24 hr 06/06/25 12:28: POC Glucose 154 H 06/06/25 16:29: POC Glucose 119 H 06/06/25 21:41: POC Glucose 78 06/07/25 05:10: WBC 8.5, RBC 2.94 L, Hgb 9.4 L, Hct 26.7 L, MCV 90.8, MCH 32.0, MCHC 35.2, RDW Std Deviation 43.7, RDW Coeff of Rihc 13.2, Plt Count 231, MPV 10.1, Immature Gran % (Auto) 0.400, Neut % (Auto) 71.0 H, Lymph % (Auto) 12.1 L,[place] % (Auto) 14.5 H, Eos % (Auto) 1.9, Baso % (Auto) 0.1, Absolute Neuts (auto)6.0, Absolute Lymphs (auto) 1.03, Nucleated RBC % 0, Sodium 140, Potassium 3.8, Chloride 94 L, Carbon Dioxide 24.3, Anion Gap 22 H, BUN 98 H, Creatinine 10.70 H*, Estim Creat Clear Calc 6.65 L*, Est GFR (MDRD) Non-Af 5 L, BUN/Creatinine Ratio 9.2 L, Glucose 62 L, Calcium 8.0, Magnesium 1.7, Total Bilirubin 0.24, AST22, ALT 20, Alkaline Phosphatase 53, Total Protein 4.7 L, Albumin 2.8 L, Globulin 1.9 L, Albumin/Globulin Ratio 1.5 06/07/25 06:46: POC Glucose 97 Micro: Microbiology 06/05/25 12:10 Urine Catheter - Bolaños Urine Culture - Final Culture exhibits no growth. 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 Patient presented to hospital with 2-day history of intractable nausea/vomiting,anorexia and generalized weakness. Patient was found to have acute kidney injury on chronic kidney disease associated with hyperkalemia and severe metabolic acidosis. Nephrology is asked to the patient because of JINA, metabolic acidosis and hyperkalemia. Acute kidney injury on chronic kidney disease stage G3b. Baseline creatinine about 1.4-1.6 as of March 2025. Presented with 2 days of nausea. Found to have renal failure, worsening. Creatinine is up to 10. Initial urine analysis with protein Renal ultrasound without any hydronephrosis Was not particularly hypotensive. Denies any [id number] supplements. He started taking a probiotic due to diarrhea over the last 6 weeks or so. Unexplained renal failure. Did not improve with fluids. Will need renal replacement therapy. Discussed with Dr. Vo Dialysis catheter to be placed. Will start dialysis after. With respect to etiology, serologies have been sent. Most likely will need kidney biopsy. Reviewed medication list, he is on Effient. Apparently he had LAD stent about 24 years ago. This was in [place]. Sees button pusher Dr. Garrison here. Has not had any strokes recently. Will check with cardiology to see if it is safe to hold Effient for the kidney biopsy. Discussed with at bedside 06/07/25 1052 <Electronically signed by Yohannes Santiago MD> Cosigner Signature (if applicable): CC: ~ Signed [facility] Work Phone: 1(446) 590-732709-22-2025 Radiology Diagnostic study [facility]09-22-2025 Procedure [facility]09-22-2025 Procedure [facility]09-21-2025 Progress note Author Richi Hope [facility] Note Date/Time June 06, 2025 10:22am [facility] Medical Records Department [address] [place] [id number] Progress Note - Hospitalist 06/06/25 0752 MR#: [id number] Acct: [id number] Name: COLEMAN DAVIES Rep #:[id number] : 1950 74 From: Richi Hope MD PCP: Dr. Briseyda Sinclair MD Status:ADM IN Location: ICU ICU01-1 Reason for Visit Chief Complaint: Intractable N/V Subjective Subjective Patient was transferred to the intensive care unit from PCU given the significant elevation in her potassium level. Aggressive treatment with Kayexalate bicarb insulin dextrose as well as albuterol initiated. Patient potassium down to 4.6 this a.m. Creatinine and BUN however did not improve. Patient was also found to be acidotic and was on bicarb drip bicarb drip has since been weaned off Objective Data Objective Data Vital Signs: Vital Signs Temp Pulse Resp BP Pulse Ox O2 Del Method O2 Flow Rate 98.2 F 92 15 142/59 H 94 Nasal Cannula 2 06/06/25 04:00 06/06/25 06:00 06/06/25 06:00 06/06/25 06:00 06/06/25 06:00 06/06/25 06:00 06/06/25 06:00 Oxygen Flow Rate (L/min) 2 Oxygen Delivery Method Nasal Cannula Weight: 81.919 kg Body Mass Index (BMI) 24.4 Intake & Output: Intake and Output for Last 24 Hours 06/04/25 06/05/25 06/06/25 23:59 23:59 23:59 Intake Total 5750.00 / 5750.00 1062.5 / 1062.5 Output Total 125 / 195 145 / 145 Balance 5625.00 / 5555.00 917.5 / 917.5 Lab / Micro Data 06/06/25 04:10 06/06/25 04:10 Labs: Laboratory Results - last 24 hr 06/05/25 08:08: Sodium 140, Potassium 7.5 H*, Chloride 103, Carbon Dioxide 9.2 L*, Anion Gap 29 H, BUN 92 H, Creatinine 8.63 H*, Estim Creat Clear Calc 8.05 L*, Est GFR (MDRD) Non-Af 6 L, BUN/Creatinine Ratio 10.7, Glucose 95, Calcium 9.5,Troponin T Hi Sens 4Hr 111 H* 06/05/25 09:14: POC Glucose 90 06/05/25 10:38: POC Glucose 165 H 06/05/25 11:40: Sodium 138, Potassium 7.0 H*, Chloride 102, Carbon Dioxide 8.2 L*, Anion Gap 29 H, BUN 92 H, Creatinine 8.59 H*, Estim Creat Clear Calc 8.09 L*, Est GFR (MDRD) Non-Af 6 L, BUN/Creatinine Ratio 10.7, Glucose 145 H, Calcium 9.4 06/05/25 12:10: Urine Color Yellow, Urine Clarity Clear, Urine pH 6.0, Ur Specific [place] 1.015, Urine Protein 100 H, Urine Glucose (UA) 100 H, Urine Ketones 5 H, Urine Occult Blood 25 H, Urine Nitrite Negative, Urine Bilirubin Negative, Urine Urobilinogen Normal, Ur Leukocyte Esterase Negative, Urine RBC 0-5 SEEN, Urine WBC 0-5 SEEN, Ur Squamous Epith Cells 0 SEEN, Ur Renal Epithelial Cell 0-5 SEEN, Urine Bacteria 0 SEEN, Urine Mucus 0 SEEN, Ur Random Sodium 105, Urine Creatinine 38.30 L 06/05/25 15:55: Sodium 138, Potassium 6.4 H*, Chloride 98, Carbon Dioxide 10.7 L, Anion Gap 30 H, BUN 91 H, Creatinine 8.71 H*, Estim Creat Clear Calc 7.98 L*, Est GFR (MDRD) Non-Af 6 L, BUN/Creatinine Ratio 10.5, Glucose 253 H, Calcium 8.9, Phosphorus 7.5 H, Magnesium 1.8 06/05/25 20:31: Sodium 139, Potassium 5.1, Chloride 96 L, Carbon Dioxide 15.0 L,Anion Gap 27 H, BUN 92 H, Creatinine 8.66 H*, Estim Creat Clear Calc 8.02 L*, Est GFR (MDRD) Non-Af 6 L, BUN/Creatinine Ratio 10.6, Glucose 262 H, Serum Osmolality 336 H, Calcium 8.7, Total Creatine Kinase 200 H 06/05/25 21:20: POC Glucose 219 H 06/06/25 00:24: Sodium 138, Potassium 4.6, Chloride 95 L, Carbon Dioxide 18.1 L,Anion Gap 25 H, BUN 93 H, Creatinine 8.88 H*, Estim Creat Clear Calc 7.82 L*, Est GFR (MDRD) Non-Af 6 L, BUN/Creatinine Ratio 10.4, Glucose 278 H, Calcium 8.3 06/06/25 00:31: POC Glucose 246 H 06/06/25 04:10: WBC 8.7, RBC 2.84 L, Hgb 9.1 L, Hct 25.8 L, MCV 90.8, MCH 32.0, MCHC 35.3, RDW Std Deviation 43.1, RDW Coeff of Rich 13.0, Plt Count 225, MPV 10.0, Immature Gran % (Auto) 0.300, Neut % (Auto) 68.8, Lymph % (Auto) 13.7 L, [place] % (Auto) 16.1 H, Eos % (Auto) 0.9, Baso % (Auto) 0.2, Absolute Neuts (auto) 6.0, Absolute Lymphs (auto) 1.19, Nucleated RBC % 0, Sodium 138, Potassium 4.2, Chloride 94 L, Carbon Dioxide 22.4, Anion Gap 22 H, BUN 93 H, Creatinine 9.29 H*, Estim Creat Clear Calc 7.48 L*, Est GFR (MDRD) Non-Af 5 L, BUN/Creatinine Ratio 10.0, Glucose 293 H, Calcium 8.1, Phosphorus 6.4 H, Magnesium 1.6, Total Bilirubin 0.26, AST 20, ALT 19, Alkaline Phosphatase 55, Total Protein 4.6 L, Albumin 2.7 L, Globulin 1.9 L, Albumin/Globulin Ratio 1.4, Triglycerides 175, Cholesterol 109, LDL Cholesterol, Calc 43, VLDL Cholesterol 35, HDL Cholesterol 31 L, Cholesterol/HDL Ratio 3.54 06/06/25 06:07: POC Glucose 268 H ABG Data ABG results: ABG 06/05/25 20:48 Specimen Type JUDY Sample Site Not entered VBG pH 7.44 H VBG pO2 184 H VBG HCO3 17 L VBG Total CO2 18 L VBG O2 Sat (Calc) 100 H VBG Base Excess -7 L POC Mix VBG pCO2 Pt Tmp 24.8 L O2 Delivery Device Not entered Radiography Diagnostic Testing: Radiology Impression Renal Ultrasound 06/05/25 05:50 IMPRESSION: Right renal cyst. Reading Location: [facility] Echocardiogram 06/05/25 06:53 Interpretation Summary Normal LV size. The left ventricular ejection fraction is 60 %. Mild segmental systolic dysfunction (see wall motion). Septal [place] : Akinetic. Contrast injection was performed. Ordering Physician: Tabby Zuniga Referring Physician: Briseyda Sinclair M.D. Performed By: Veronica Oliva RDCS Rhythm Strip Rhythm Strip: Sinus Rhythm Rate: 85 Ectopy: None Physical Exam Narrative GENERAL: cooperative HEENT: Atraumatic; normocephalic EYES; Anicteric, Normal Conjunctiva NECK; supple, normal thyroid, RESPIRATORY: Diminished to auscultation with bibasilar rales CARDIOVASCULAR: Regular S1 S2, GI: soft, normoactive bowel sounds, : No Renal angle tenderness; EXTREMITIES: Edema of both upper and lower extremities MUSCULOSKELETAL: no muscle wasting NEURO: Awake; no lateralizing signs. SKIN: No Rash PSYCH; Flat affect Assessment & Plan Assessment/Plan (1) Acute renal failure: (2) Acute uremia: (3) Hyperkalemia, diminished renal excretion: PLAN: Plan Patient is a 74-year-old male who presented with intractable nausea and vomiting. Patient was found to have acute kidney injury with hyperkalemia admitted to monitored bed for subsequent treatment. 1. Acute kidney injury superimposed on CKD stage III ? Patient creatinine from 03/29/2025 was 1.63 creatinine on admission was 8.74. Patient started on IV hydration with serial monitoring of BMPs ordered consult was also placed to nephrology ? 06/06/2025; patient creatinine continues to worsen up to 9.29. Case discussed with Dr. Browning with nephrology if there is no improvement following adjustment of patient IV fluid plan will be for patient to undergo temporary dialysis 2. Hyperkalemia ? Secondary to patient JINA as well as concomitant use of lisinopril. Lisinoprilheld treatment of JINA initiated repeat BMP ordered to evaluate response to therapy ? Patient repeat potassium worsening. Additional Kayexalate 30 g given. Started patient on calcium gluconate insulin and dextrose. Patient also startedon bicarb drip decision made to transfer patient to intensive care unit with frequent BMPs ordered. Case was discussed with Dr. Maldonado with nephrology plan isto consider CRRT if patient does not respond to treatment described above ? 06/06/2025; patient hyperkalemia was treated aggressively potassium down to 4.2 3. Metabolic acidosis ? Secondary to JINA do expect improvement with treatment of underlying etiology .?Started patient on bicarb drip due to worsening potassium levels ? 06/06/2025; patient acidosis resolved discontinued bicarb drip 4. Acute gastroenteritis ? Plan is to treat symptomatically thought to be etiology of patient's JINA 5. Elevated troponin ? Secondary to demand ischemia from above patient presentation not consistent with ACS 6. Coronary artery disease ? With previous PCI patient is on guideline directed medical therapy 7. Diabetes mellitus type 2 ? Held oral agents did continue patient insulin regimen also placed on Accu- Cheks AC and at bedtime with sliding scale coverage 8. BPH with lower urinary obstructive symptoms - Patient treated with tamsulosin and finasteride 9. Essential hypertension ? Discontinue home meds except for lisinopril given patient presentation 10. Dyslipidemia ?Patient is on statin therapy, continued at home dose 11. Anemia ? Secondary to chronic disorder monitoring H&H and transfuse if patient becomes symptomatic or hemoglobin falls below 7 12. Hyperphosphatemia ? Secondary to patient impaired kidney function monitoring with daily phosphate levels 13. Hematuria ? Thought to be secondary to trauma from Bolaños catheter being pulled, case was discussed with nursing staff Bolaños catheter change in if hematuria does not improve plan will be to start CBI 14. DVT prophylaxis ? Subcu heparin ? Low threshold to discontinue subcu heparin if hematuria persist 15. Generalized edema ? Secondary to aggressive IV fluid resuscitation for patient's JINA. Patient kidney function however did not respond to fluids. Decision was therefore made to give 40 of Lasix given the extent edema and bibasilar crackles Charges/Coding Visit Charges Inpatient E&M: 84957 Subs Hosp L3 06/06/25 1022 <Electronically signed by Richi Hope MD> Cosigner Signature (if applicable): CC: ~ Signed [facility] Work Phone: [phone]) 310-247409-20-2025 Consult note Author Chris Musa tr [facility] Note Date/Time June 05, 2025 7:46pm [facility] Medical Records Department [address] [place] [address] Consultation - Nephrology 06/05/25 1905 MR#: [id number] Acct: [id number] Name: COLEMAN DAVIES Rep #:[id number] 1950 74 From: Chris lauren MD PCP: Dr. 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 Patient presented to hospital with 2-day history of intractable nausea/vomiting,anorexia and generalized weakness. Patient was found to have acute kidney injury on chronic kidney disease associated with hyperkalemia and severe metabolic acidosis. Nephrology is asked to the patient because of JINA, metabolic acidosis and hyperkalemia. Acute kidney injury on chronic kidney disease stage G3b. Baseline serum creatinine appears to be around 1.60 to 1.80 mg/dL dating back toFebruary 2024. Patient is unaware of prior history of CKD. Patient presented to the hospital with serum creatinine of 8.74 mg/dL. Renal ultrasound is negative for hydronephrosis. UA shows 2+ protein and mild ketonuria. There is no RBCs seen in microscopic examination. Fractional secretion of sodium is greater than 1%. My suspicion is had JINA secondary to severe volume depletion due to intractable nausea/vomiting which has led to ischemic ATN. JINA is likely exacerbated by concurrent use of [place] inhibitor prior to admission. Patient appears to be volume depleted, so we will continue to volume expand patient with isotonic sodium bicarbonate infusion. Potassium level is improving with SPS and bicarbonate infusion. Acute metabolicacidosis is also improving with sodium bicarbonate infusion. Therefore, there is no urgent need for hemodialysis tonight. Continue current supportive care. Keep MAP above 65 mmHg. Continue to hold [place] inhibitor. We will monitor patient closely. Agree with checking metabolic panel every 4 hours. Will reassess patient's volume status, acid-base status and electrolytes again tomorrow. Hyperkalemia. Patient presented to the hospital with potassium level of 7.5 mmol/L on 06/05/2025. Hyperkalemia is secondary to JINA on CKD along with metabolic acidosis and concurrent use of lisinopril prior to presentation. Agree with stopping lisinopril. Patient has been treated with SPS x 2. Potassium level is trending down. Will continue to monitor serum potassium serially. As long as potassium is trending down, we do not need to dialyze the patient tonight. Acute metabolic acidosis. Patient has high anion gap metabolic acidosis. She presented with serum bicarbonate level of 9.2 mmol/L. Acute metabolic acidosis is most likely due to JINA on CKD. Will check serum osmolality to see if there is any osmolar gap. Will also check VBG tonight. Continue sodium bicarbonate infusion to mainly treat hyperkalemia. Will follow the trajectory of serum bicarbonate level. HPI Consult Data Date of Consult: 06/05/25 HPI Narrative Reason for Consultation: Acute kidney injury and hyperkalemia HPI Narrative: The patient is a 74-year-old male with past history of CKD stage G3b, type 2 diabetes mellitus, hypertension, CAD status post PCI, PAD, stroke, hypothyroidism, BPH, iron deficiency anemia, and hyperlipidemia. Patient presented to hospital on 06/05/2025 with 2-day history of generalized weakness, nausea, vomiting and anorexia. During workup in the ED, patient was found to have elevated serum creatinine of 8.74 mg/dL and hyperkalemia with potassium level of 7.5 mmol/L. Nephrology is asked to the patient because of JINA on CKD and hyperkalemia. Baseline serum creatinine has been around 1.60 to 1.80 mg/dL prior to this admission. However, patient is unaware of any prior history of CKD before this admission. Patient denies current chest pain or dyspnea. Nausea has improved with antiemetic. He has not vomited since admission to the hospital. Patient does have loose bowel movements, but he did receive sodium polystyrene sulfonate earlier today with sorbitol. Patient denies orthopnea, PND or edema prior to admission. He does have a history of BPH, but he denies history of urinary hesitancy, urgency, frequency or incontinence. Patient denies chronic use of NSAIDs. The patient had been on lisinopril prior to admission. He did take this medication up until the day of presentation to the hospital. There has been no recent prescription medication changes. [facility] Medical History Cancer Alcohol use History of steroid therapy Back pain TIA (transient ischemic attack) Gastric reflux Shortness of breath on exertion Hypertension Leg cramps History of stress test History of echocardiogram History of Holter monitoring Diarrhea Lower urinary tract symptoms (LUTS) Acute urinary retention Hypothyroidism Lumbar radiculopathy, acute Near syncope Chest pain Wears glasses Insulin dependent diabetes mellitus High cholesterol Stroke/cerebrovascular accident Dietary restriction Former smoker Cardiology follow-up encounter History of [...] coronary artery (~08/28/01) Atherosclerotic heart disease of [place] coronary artery without angina pectoris Home Medications [...] 07/20/21 01/12/25 History mcg (1,000 unit) tablet lancets 33 gauge (OneTouch Delica #100 ea 05/04/24 Unk nown Rx Plus Lancet) atorvastatin 80 mg tablet 80 mg PO QHS CHOLESTEROL #90 08/10/24 01/11/25 Rx TABLETS carvedilol 12.5 mg tablet 12.5 mg PO BID HEART #180 ta bs 08/10/24 01/12/25 Rx lisinopril 20 mg tablet 20 mg PO DAILY BP #90 TABLET S 08/10/24 01/12/25 Rx metformin 500 mg tablet 1,000 mg (2 x 500 mg) PO BID BLOOD 08/10/24 01/12/25 Rx SUGARS #360 tabs pen needle, diabetic 32 gauge x #100 ea 01/04/25 Unkno wn Rx 09/19 (Comfort EZ Pen [place]) finasteride 5 mg tablet 5 mg PO QHS PROSTATE 5 Unknown History blood sugar diagnostic (OneTouch #100 ea 02/24/25 Unkn own Rx Verio test strips) glimepiride 4 mg tablet 4 mg PO BID BLOOD SUGARS #90 tabs 02/25/25 Unknown Rx tamsulosin 0.4 mg capsule 0.4 mg PO QHS PROSTATE #90 c aps 04/09/25 Unknown Rx insulin glargine U-300 conc 300 36 unit (0.12 mL) subc ut DAILY 04/19/25 Unknown Rx unit/mL (1.5 mL) subcutaneous pen BLOOD SUGARS #4.5 mL (Toujeo SoloStar U-300 Insulin) loratadine 10 mg tablet 10 mg PO QDAY ALLERGY Unknown History magnesium glycinate 100 mg (as 400 mg PO QDAY 05/12/25 Unknown History glycinate) tablet prasugrel HCl 10 mg tablet 10 mg PO QDAY HEART #90 tab s 05/18/25 Unknown Rx (Effient) amlodipine 5 mg tablet 5 mg PO QHS BP 05/28/25 Unkn own History famotidine 20 mg tablet 20 mg PO QHS GERD 05/28/25 U nknown History isosorbide mononitrate 30 mg 30 mg PO QHS HEART Unknown History tablet,extended release 24 hr magnesium glycinate 100 mg (as 400 mg PO QHS SUPPLEMEN T 05/28/25 Unknown History glycinate) tablet Allergy/AdvReac Type Severity Reaction Status Date / Time ticagrelor (From Brilinta) AdvReac Severe Other Verified 06/05/25 04:27 Family History Mother CAD (coronary artery disease) Diabetes Myocardial infarction, Onset Age: 48 Father Diabetes Breast cancer Brother Diabetes Cancer Brother Cancer Prostate Surgical History History of cardiac catheterization History of lumbar discectomy Hx of oral surgery History of coronary artery stent placement History [...] Does not use ibuprofen daily. ROS ROS Narrative As per HPI otherwise noncontributory Physical Exam Narrative General: Alert and oriented x3, NAD. HEENT: Normocephalic, atraumatic. Mucous membrane dry without erythema. PERRLA, EOMI. Hearing is intact. Neck: Supple, no JVD. Trachea is midline. No thyromegaly or lymphadenopathy. Cardiovascular: Normal S1, S2. No rubs, murmurs, or gallops. Respiratory: Lungs are clear to auscultation bilaterally. No wheezing, rhonchi,or rales. Abdomen: Normal bowel sounds, soft, nontender, no guarding or rebound, no organomegaly. Extremities: No clubbing, cyanosis, or edema. Musculoskeletal: Full passive range of motion, no joint swelling. Psychiatric: Normal mood and affect. Skin: Warm and dry, no rash. Neurologic: Cranial nerve II to XII are grossly intact. No focal neurologic deficits. Lab / Micro Data 06/05/25 04:30 06/05/25 15:55 Labs: Laboratory Results - last 24 hr 06/05/25 04:30: WBC 10.5, RBC 3.75 L, Hgb 12.0 L, Hct 35.4 L, MCV 94.4 H, MCH 32.0, MCHC 33.9, RDW Std Deviation 44.4 H, RDW Coeff of Rich 12.9, Plt Count 285,MPV 9.9, Immature Gran % (Auto) 0.500, Neut % (Auto) 82.3 H, Lymph % (Auto) 11.2L, [place] % (Auto) 5.6, Eos % (Auto) 0.2, Baso % (Auto) 0.2, Absolute Neuts (auto)8.6 H, Absolute Lymphs (auto) 1.17, Nucleated RBC % 0, Sodium 140, Potassium 6.3H*, Chloride 100, Carbon Dioxide 11.0 L, Anion Gap 29 H, BUN 92 H, Creatinine 8.74 H*, Estim Creat Clear Calc 7.80 L*, Est GFR (MDRD) Non-Af 6 L, BUN/Creatinine Ratio 10.5, Glucose 104 H, Calcium 10.5, Phosphorus 6.5 H, Magnesium 2.0, Total Bilirubin 0.29, AST 26, ALT 24, Alkaline Phosphatase 84, Troponin T High Sens 116 H* D, Total Protein 6.8, Albumin 3.9, Globulin 2.9, Albumin/Globulin Ratio 1.3 06/05/25 06:25: Troponin T Hi Sens 2 Hr 110 H* 06/05/25 08:08: Sodium 140, Potassium 7.5 H*, Chloride 103, Carbon Dioxide 9.2 L*, Anion Gap 29 H, BUN 92 H, Creatinine 8.63 H*, Estim Creat Clear Calc 8.05 L*, Est GFR (MDRD) Non-Af 6 L, BUN/Creatinine Ratio 10.7, Glucose 95, Calcium 9.5,Troponin T Hi Sens 4Hr 111 H* 06/05/25 09:14: POC Glucose 90 06/05/25 10:38: POC Glucose 165 H 06/05/25 11:40: Sodium 138, Potassium 7.0 H*, Chloride 102, Carbon Dioxide 8.2 L*, Anion Gap 29 H, BUN 92 H, Creatinine 8.59 H*, Estim Creat Clear Calc 8.09 L*, Est GFR (MDRD) Non-Af 6 L, BUN/Creatinine Ratio 10.7, Glucose 145 H, Calcium 9.4 06/05/25 12:10: Urine Color Yellow, Urine Clarity Clear, Urine pH 6.0, Ur Specific [place] 1.015, Urine Protein 100 H, Urine Glucose (UA) 100 H, Urine Ketones 5 H, Urine Occult Blood 25 H, Urine Nitrite Negative, Urine Bilirubin Negative, Urine Urobilinogen Normal, Ur Leukocyte Esterase Negative, Urine RBC 0-5 SEEN, Urine WBC 0-5 SEEN, Ur Squamous Epith Cells 0 SEEN, Ur Renal Epithelial Cell 0-5 SEEN, Urine Bacteria 0 SEEN, Urine Mucus 0 SEEN, Ur Random Sodium 105, Urine Creatinine 38.30 L 06/05/25 15:55: Sodium 138, Potassium 6.4 H*, Chloride 98, Carbon Dioxide 10.7 L, Anion Gap 30 H, BUN 91 H, Creatinine 8.71 H*, Estim Creat Clear Calc 7.98 L*, Est GFR (MDRD) Non-Af 6 L, BUN/Creatinine Ratio 10.5, Glucose 253 H, Calcium 8.9, Phosphorus 7.5 H, Magnesium 1.8 Rhythm Strip Rhythm Strip: Sinus Rhythm Rate: 85 Ectopy: None Imaging Radiology Impression Acute Abdomen Series 06/05/25 05:00 IMPRESSION: Unremarkable bowel gas pattern. Mild bilateral basilar atelectatic pulmonary changes. [facility] Ren[facility] Ultrasound 06/05/25 05:50 IMPRESSION: Right renal cyst. Reading Location: [facility] Echocardiogram 06/05/25 06:53 Interpretation Summary Normal LV size. The left ventricular ejection fraction is 60 %. Mild segmental systolic dysfunction (see wall motion). Septal [place] : Akinetic. Contrast injection was performed. Ordering Physician: Tabby Zuniga Referring Physician: Briseyda Sinclair M.D. Performed By: Veronica Oliva ELVIA 06/05/251945 <Electronically signed by Chris Bird MD> Cosigner Signature (if applicable): CC: Dr. Briseyda Sinclair MD~ Signed [facility] Work Phone: 1(604) 529-164709-20-2025 Progress note Author Richi Hope [facility] Note Date/Time June 05, 2025 3:04pm [facility] Medical Records Department [address] [place] [address] Progress Note - Hospitalist 06/05/25 0757 MR#: [id number] Acct: [id number] Name: COLEMAN DAVIES Rep #:[id number] : 1950 74 From: Richi Hope MD PCP: Dr. Briseyda Sinclair MD Status:ADM IN Location: ICU ICU01-1 Reason for Visit Chief Complaint: Intractable N/V Subjective Subjective Patient is a 74-year-old male who presented with intractable nausea and vomiting. Patient was found to have acute kidney injury with hyperkalemia admitted to monitored bed for subsequent treatment. Objective Data Objective Data Vital Signs: Vital Signs Temp Pulse Resp BP Pulse Ox O2 Del Method 96.3 F L 88 18 170/70 H 98 Room Air 06/05/25 07:01 06/05/25 07:01 06/05/25 07:01 06/05/25 07:01 06/05/25 07:01 06/05/25 07:30 Oxygen Delivery Method Room Air Weight: 75.8 kg Body Mass Index (BMI) 22.6 Intake & Output: Intake and Output for Last 24 Hours 06/03/25 06/04/25 06/05/25 23:59 23:59 23:59 Intake Total 1000 / 1000 Balance 1000 / 1000 Lab / Micro Data 06/05/25 04:30 06/05/25 08:08 Labs: Laboratory Results - last 24 hr 06/05/25 04:30: WBC 10.5, RBC 3.75 L, Hgb 12.0 L, Hct 35.4 L, MCV 94.4 H, MCH 32.0, MCHC 33.9, RDW Std Deviation 44.4 H, RDW Coeff of Rich 12.9, Plt Count 285,MPV 9.9, Immature Gran % (Auto) 0.500, Neut % (Auto) 82.3 H, Lymph % (Auto) 11.2L, [place] % (Auto) 5.6, Eos % (Auto) 0.2, Baso % (Auto) 0.2, Absolute Neuts (auto)8.6 H, Absolute Lymphs (auto) 1.17, Nucleated RBC % 0, Sodium 140, Potassium 6.3H*, Chloride 100, Carbon Dioxide 11.0 L, Anion Gap 29 H, BUN 92 H, Creatinine 8.74 H*, Estim Creat Clear Calc 7.80 L*, Est GFR (MDRD) Non-Af 6 L, BUN/Creatinine Ratio 10.5, Glucose 104 H, Calcium 10.5, Phosphorus 6.5 H, Magnesium 2.0, Total Bilirubin 0.29, AST 26, ALT 24, Alkaline Phosphatase 84, Troponin T High Sens 116 H* D, Total Protein 6.8, Albumin 3.9, Globulin 2.9, Albumin/Globulin Ratio 1.3 06/05/25 06:25: Troponin T Hi Sens 2 Hr 110 H* Radiography Diagnostic Testing: Radiology Impression Acute Abdomen Series 06/05/25 05:00 IMPRESSION: Unremarkable bowel gas pattern. Mild bilateral basilar atelectatic pulmonary changes. Reading Location: [place] [address] Rhythm Strip Rhythm Strip: Sinus Rhythm Rate: 85 Ectopy: None Physical Exam Narrative GENERAL: cooperative HEENT: Atraumatic; normocephalic EYES; Anicteric, Normal Conjunctiva NECK; supple, normal thyroid, RESPIRATORY: Diminished to auscultation CARDIOVASCULAR: Regular S1 S2, GI: soft, normoactive bowel sounds, : No Renal angle tenderness; EXTREMITIES: No edema, no clubbing, MUSCULOSKELETAL: no muscle wasting NEURO: Awake; no lateralizing signs. SKIN: No Rash PSYCH; Flat affect Assessment & Plan Assessment/Plan (1) Acute renal failure: (2) Acute uremia: (3) Hyperkalemia, diminished renal excretion: PLAN: Plan Patient is a 74-year-old male who presented with intractable nausea and vomiting. Patient was found to have acute kidney injury with hyperkalemia admitted to monitored bed for subsequent treatment. 1. Acute kidney injury superimposed on CKD stage III ? Patient creatinine from 03/29/2025 was 1.63 creatinine on admission was 8.74. Patient started on IV hydration with serial monitoring of BMPs ordered consult was also placed to nephrology 2. Hyperkalemia ? Secondary to patient JINA as well as concomitant use of lisinopril. Lisinoprilheld treatment of JINA initiated repeat BMP ordered to evaluate response to therapy ? Patient repeat potassium worsening. Additional Kayexalate 30 g given. Started patient on calcium gluconate insulin and dextrose. Patient also startedon bicarb drip decision made to transfer patient to intensive care unit with frequent BMPs ordered. Case was discussed with Dr. Maldonado with nephrology plan isto consider CRRT if patient does not respond to treatment described above 3. Metabolic acidosis ? Secondary to JINA do expect improvement with treatment of underlying etiology .?Started patient on bicarb drip due to worsening potassium levels 4. Acute gastroenteritis ? Plan is to treat symptomatically thought to be etiology of patient's JINA 5. Elevated troponin ? Secondary to demand ischemia from above patient presentation not consistent with ACS 6. Coronary artery disease ? With previous PCI patient is on guideline directed medical therapy 7. Diabetes mellitus type 2 ? Held oral agents did continue patient insulin regimen also placed on Accu- Cheks AC and at bedtime with sliding scale coverage 8. BPH with lower urinary obstructive symptoms - Patient treated with tamsulosin and finasteride 9. Essential hypertension ? Discontinue home meds except for lisinopril given patient presentation 10. Dyslipidemia ?Patient is on statin therapy, continued at home dose 11. DVT prophylaxis ? Subcu heparin Critical time spent in the patient's overall evaluation,decision-making process,review of diagnostic data, adjustment of management, discussion with other providers, nursing nursing and ancillary staff involved in patient's care documentation, 60 . Minutes Charges/Coding Procedures Hospitalists Procedures: 00647 Critical Care 1st Hr 06/05/25 0945 <Electronically signed by Richi Hope MD> Cosigner Signature (if applicable): CC: ~ Signed ADDENDUM by Dr. Richi Hope MD on 06/05/25 at 1504 Addendum Was transferred to the intensive care unit addition Kayexalate, sodium gluconate, insulin, albuterol and dextrose given. Repeat potassium came back at7.0. Bicarb is down to 8.2. Of note patient has been started on bicarb drip and case has been discussed with nephrology. Patient is making good urine. Additional Kayexalate given repeat BMP ordered. Patient remains on continuous telemetry with no arrhythmias. Case discussed with patient's questions answered. Total additional CC time; 35 min Procedures Hospitalists Procedures: 90876 Advncd Care Plan addl 30 Min 06/05/25 1504<Electronically signed by Richi Hope MD> Cosigner Signature (if applicable): cc: ~* Signed [facility] Work Phone: 1(484) 540-874809-20-2025 Radiology Diagnostic study [facility]09-20-2025 History and physical note Author Tabby Zuniga [facility] Note Date/Time June 05, 2025 6:04am [facility] Medical Records Department [address] [place] [address] H&P Exam - Hospitalist 06/05/25 0542 MR#: [id number] Acct: [id number] Name: COLEMAN DAVIES Rep #:[id number] : 1950 74 From: Tabby Zuniga MD PCP: Dr. Briseyda Sinclair MD Status:ADM IN Location: [place] [address]- 1 HPI - General General Date of Admission: 06/05/25 Date of Service: 06/05/25 Chief Complaint: Intractable N/V HPI Narrative The patient is a 74 y/o M w/ PMHx: CKD stage III unclear subtype per previous GFR trending, GERD, Hx TIA/CVA, Hypothyroidism, HTN, HLD, Carotid disease, Former tobacco use, IDDM, CAD s/p PCI, [facility] with history of onset general fatigue, malaise with persistent nausea and emesis starting ~ 36 hours prior with poor recent oral intake with no abdominal pain or diarrhea not improving prompting eventual ED evaluation. Workup in the ED included T97.9, heart rate 88, BP 173/67, respiratory rate 16, 100% on room air, CBC with WC 10.5, 112, MCV94.4, platelet 285 with left shift, CMP with potassium 6.3 not noted to be hemolyzed, carbon oxide 11, anion gap 29, BUN/creatinine 92/8.74, GFR 6, [id number], troponin 116 with most recently noted troponin prior to this 03/29/25 39, acute abdominal series without acute findings, EKG with very slight T wave peaking but no other acute changes or evidence of ischemia. In the ED patient ministered 1 L normal saline, Zofran 4 mg IV x 1 as well as Kayexalate 15 mg p.o. x 1. ED discussed case with Nephrology. [facility] Medical History Cancer Alcohol use History of steroid therapy Back pain TIA (transient ischemic attack) Gastric reflux Shortness of breath on exertion Hypertension Leg cramps History of stress test History of echocardiogram History of Holter monitoring Diarrhea Lower urinary tract symptoms (LUTS) Acute urinary retention Hypothyroidism Lumbar radiculopathy, acute Near syncope Chest pain Wears glasses Insulin dependent diabetes mellitus High cholesterol Stroke/cerebrovascular accident Dietary restriction Former smoker Cardiology follow-up encounter History of [...] coronary artery (~08/28/01) Atherosclerotic heart disease of [place] coronary artery without angina pectoris Home Medications [...] 07/20/21 01/12/25 History mcg (1,000 unit) tablet lancets 33 gauge (OneTouch [employer] #100 ea 05/04/24 Unk nown Rx Plus Lancet) atorvastatin 80 mg tablet 80 mg PO QHS CHOLESTEROL #90 08/10/24 01/11/25 Rx TABLETS carvedilol 12.5 mg tablet 12.5 mg PO BID HEART #180 ta bs 08/10/24 01/12/25 Rx lisinopril 20 mg tablet 20 mg PO DAILY BP #90 TABLET S 08/10/24 01/12/25 Rx metformin 500 mg tablet 1,000 mg (2 x 500 mg) PO BID BLOOD 08/10/24 01/12/25 Rx SUGARS #360 tabs pen needle, diabetic 32 gauge x #100 ea 01/04/25 Unkno wn Rx 09/19 (Comfort EZ Pen [place]) finasteride 5 mg tablet 5 mg PO QHS PROSTATE 5 Unknown History blood sugar diagnostic (OneTouch #100 ea 02/24/25 Unkn own Rx Verio test strips) glimepiride 4 mg tablet 4 mg PO BID BLOOD SUGARS #90 tabs 02/25/25 Unknown Rx tamsulosin 0.4 mg capsule 0.4 mg PO QHS PROSTATE #90 c aps 04/09/25 Unknown Rx insulin glargine U-300 conc 300 36 unit (0.12 mL) subc ut DAILY 04/19/25 Unknown Rx unit/mL (1.5 mL) subcutaneous pen BLOOD SUGARS #4.5 mL (Toujeo SoloStar U-300 Insulin) loratadine 10 mg tablet 10 mg PO QDAY ALLERGY Unknown History magnesium glycinate 100 mg (as 400 mg PO QDAY 05/12/25 Unknown History glycinate) tablet prasugrel HCl 10 mg tablet 10 mg PO QDAY HEART #90 tab s 05/18/25 Unknown Rx (Effient) amlodipine 5 mg tablet 5 mg PO QHS BP 05/28/25 Unkn own History famotidine 20 mg tablet 20 mg PO QHS GERD 05/28/25 U nknown History isosorbide mononitrate 30 mg 30 mg PO QHS HEART Unknown History tablet,extended release 24 hr magnesium glycinate 100 mg (as 400 mg PO QHS SUPPLEMEN T 05/28/25 Unknown History glycinate) tablet Allergy/AdvReac Type Severity Reaction Status Date / Time ticagrelor (From Brilinta) AdvReac Severe Other Verified 06/05/25 04:27 Family History Mother CAD (coronary artery disease) Diabetes Myocardial infarction, Onset Age: 48 Father Diabetes Breast cancer Brother Diabetes Cancer Brother Cancer Prostate Surgical History History of cardiac catheterization History of lumbar discectomy Hx of oral surgery History of coronary artery stent placement History [...] Does not use ibuprofen daily. ROS ROS Narrative Admission Review of Systems: CONSTITUTIONAL: No weight loss, fever, chills, + weakness or fatigue. HEENT: Eyes: No visual loss, blurred vision, double vision or yellow sclerae. Ears, Nose, Throat: No hearing loss, sneezing, congestion, runny nose or sore throat. SKIN: No rash or itching, lesions, wounds. CARDIOVASCULAR: No chest pain, chest pressure or chest discomfort, palpitations,edema, orthopnea, syncopal events. RESPIRATORY: No shortness of breath, cough or sputum, wheezing, hemoptysis. GASTROINTESTINAL: + anorexia, nausea, vomiting. No diarrhea, abdominal pain, melena, BRBPR. GENITOURINARY: No dysuria, frequency, urgency or retention. NEUROLOGICAL: No headache, dizziness, syncope, paralysis, ataxia, numbness or tingling in the extremities, focal weakness, change in bowel or bladder control,seizure. MUSCULOSKELETAL: + muscle, back pain, joint pain or stiffness. HEMATOLOGIC: + Chronic anemia, easy bleeding/bruising. LYMPHATICS: No enlarged nodes. No history of splenectomy. PSYCHIATRIC: No history of depression or anxiety. ENDOCRINOLOGIC: No reports of sweating, cold or heat intolerance. No polyuria orpolydipsia. ALLERGIES: + History of allergic rhinitis. Vital Signs Vital Signs Vital Signs: 06/05/25 04:17 06/05/25 05:29 Temperature 97.9 F 97.8 F Temperature Source Oral Pulse Rate 88 88 Respiratory Rate 16 15 Blood Pressure 173/67 H 162/74 H Blood Pressure Mean 102 103 Pulse Ox 100 100 Oxygen Delivery Method Room Air Weight Weight: 164 lb 0.383 oz Body Mass Index (BMI) 22.2 Physical Exam Narrative Physical Examination: General: Awake, alert, oriented x 3 and cooperative, seated upright in ED bed, fatigued but no acute distress. Skin: Normal color, normal turgor, no icterus, no cyanosis except occasional stage ecchymoses. HEENT: AT/NC, EOMI, PERRLA, dry MM, no carotid bruits or JVD noted. Lungs: Mildly diminished, greater bases, proper effort, no rales, ronchi or wheezing. Heart: Regular rate and rhythm; no gallop, rub audible. Abdomen: Soft, NTTP, ND, mildly hyperactive BS, no appreciated HSM. Extremities: No cyanosis, clubbing, or edema. Neurological: Patient awake, alert, oriented as noted, cognitive function intact; pupils equally reactive to light and accommodation, cranial nerves grossly normal, moving all 4 extremities, no focal deficits, strength moderatelyglobally decreased. Psychiatric: Affect appears mildly flat, fatigued, no acute evidence of depressive or anxiety feelings. Results Lab / Micro Data 06/05/25 04:30 06/05/25 04:30 Labs: Laboratory Results - last 24 hr 06/05/25 04:30: WBC 10.5, RBC 3.75 L, Hgb 12.0 L, Hct 35.4 L, MCV 94.4 H, MCH 32.0, MCHC 33.9, RDW Std Deviation 44.4 H, RDW Coeff of Rich 12.9, Plt Count 285,MPV 9.9, Immature Gran % (Auto) 0.500, Neut % (Auto) 82.3 H, Lymph % (Auto) 11.2L, [place] % (Auto) 5.6, Eos % (Auto) 0.2, Baso % (Auto) 0.2, Absolute Neuts (auto)8.6 H, Absolute Lymphs (auto) 1.17, Nucleated RBC % 0, Sodium 140, Potassium 6.3H*, Chloride 100, Carbon Dioxide 11.0 L, Anion Gap 29 H, BUN 92 H, Creatinine 8.74 H*, Estim Creat Clear Calc 7.80 L*, Est GFR (MDRD) Non-Af 6 L, BUN/Creatinine Ratio 10.5, Glucose 104 H, Calcium 10.5, Total Bilirubin 0.29, AST 26, ALT 24, Alkaline Phosphatase 84, Troponin T High Sens 116 H* D, Total Protein 6.8, Albumin 3.9, Globulin 2.9, Albumin/Globulin Ratio 1.3 Rhythm Strip Rhythm Strip: Sinus Rhythm Rate: 85 Ectopy: None Assessment & Plan Assessment/Plan (1) Acute renal failure: (2) Acute uremia: (3) Hyperkalemia, diminished renal excretion: PLAN: Plan The patient is a 74 y/o M w/ PMHx: CKD stage III unclear subtype per previous GFR trending, GERD, Hx TIA/CVA, Hypothyroidism, HTN, HLD, Carotid disease, Former tobacco use, IDDM, CAD s/p PCI, Chronic normocytic anemia who presents [facility] ED on 06/05/2025 with history of onset general fatigue, malaise with persistent nausea and emesis starting over the last 36 hours with poor recent oral intake with no abdominal pain or diarrhea not improving prompting eventual ED evaluation. #1. Intractable nausea and emesis likely secondary to acute gastroenteritis: Will admit to PCU given #2 in the setting of #3 with also #4 as noted, Will continue aggressive hydration, if any onset of diarrhea certainly will obtain stool studies and C. difficile but at this point has not been an issue, will notstart antibiotics at this time given unclear source pending stool studies as maybe viral gastroenteritis. Anti-emetics, pain regimen PRN. #2. Acute kidney injury on CKD stage III unclear subtype per previous GFR trending/acute uremia: Secondary to significant GI losses and poor intake, admission BUN/Cr 92/8.74, GFR 6, prior baseline creatinine noted to be primarily1.3-1.6, most recently 03/29/2025 creatinine 1.63,. Will hydrate, hold nephrotoxic medications and repeat chemistry in AM. Will obtain renal ultrasound, FeNa assessment. Nephrology consulted. #3. Hyperkalemia: In the setting as noted of acute kidney injury secondary to significant GI losses, initiated on Kayexalate in the ED, will continue IV fluids, administer albuterol, insulin with dextrose, calcium and will continue to cycle BMP with repeat administration of hyperkalemic protocol as needed, willmaintain on telemetry. #4. Indeterminate cardiac enzyme of unclear significance: EKG in ED w/ sinus rhythm with no acute evidence of ischemia with mildly peaked T waves, troponin elevated initial 116, will maintain on a monitored bed, continue serial cardiac enzymes and EKGs. Obtain magnesium level upon admission. Will maintain on chemoprophylactic heparin, but if enzymes rise will transition to heparin drip. Continue medical management w/ asa, BB, statin w/ AM FLP. ECHO requested. If enzymes continue to trend upward will involve cardiology otherwise may be demandgiven his acute presentation with GI illness and acute kidney injury. At this point patient would be an appropriate for catheterization given his renal function. #5. CAD: Status post previous PCI, will continue aspirin, Effient, statin, Coreg, holding lisinopril given acute kidney injury. #6. Carotid disease: Will continue Effient, aspirin, statin, hypertensive regimen, diabetic regimen as noted. #7. Chronic normocytic anemia: Admission hemoglobin 12, MCV 94.4, baseline primarily 11-12, stable, continue to trend. #8. History of TIA/CVA: Remote history per records [facility]. Currently given CAD maintained on Effient, aspirin. Will continue statin, Coreg, holding lisinopril given acute kidney injury, continue diabetic regimen with adjustments as noted. #9. Diabetes mellitus type II: Hold oral home regimen, continue home insulin regimen, ADA diet, accu checks w/ ISS. #10. Hypertension: Holding all nephrotoxic medications, will continue isosorbide, Coreg, amlodipine with also as needed IV hydralazine. #11. Hyperlipidemia: Will continue patient on statin therapy, FLP in AM. #12. BPH with obstructive pathology: Will continue patient on Flomax regimen, evaluating for retention, UA pending per ED. #13. Former tobacco use: Encourage continued tobacco cessation. #14. Allergic rhinitis: Will continue patient on loratadine regimen. #15. GERD: IV PPI. #16. DVT prophylaxis: Heparin. #17. CODE status: Full Code. Charges/Coding Visit Charges Inpatient E&M: 81042 Init Hosp L3 06/05/25 0604 <Electronically signed by Tabby Zuniga MD> Cosigner Signature (if applicable): CC: Dr. Tabby Zuniga MD; Dr. Briseyda Sinclair MD~ Signed [facility] Work Phone: 1([phone]) 422-170509-20-2025 Discharge summary Author Blake Kapoor [facility] Note Date/Time June 05, 2025 5:56am [facility] Medical Records Department [address] [place] [address] Emergency Department Summary 06/05/25 MR#: [id number] Acct: [id number] Name: COLEMAN DAVIES Rep #:[id number] : 1950 74 From: Blake Kapoor MD PCP: Dr. Briseyda Sinclair MD Status:REG ER Location: ED HPI HPI - GI History of Present Illness Chief Complaint: Nausea/Vomiting Informant: patient and spouse/S.O. Narrative Narrative: 74-year-old diabetic male went out the with his 2 nights ago, and about 3 hours later he did not feel well and vomited. No blood. No abdominal pain or diarrhea. The next morning, he vomited again, he ate very little throughout theday, and then all this past night he has been up vomiting recurrently. He states some of the vomit looked a little brown but nothing that looked bilious/green, or coffee-ground emesis, or bloody. No diarrhea, no abdominal pain, no chest pain, no dyspnea, cough, fevers or chills, or any other symptoms. No history of any abdominal surgeries in the past. ate at the same restaurant as he did but she did not have the same thing; he had shrimp. He has had no alcohol use. [facility] Medical History Cancer Alcohol use History of steroid therapy Back pain TIA (transient ischemic attack) Gastric reflux Shortness of breath on exertion Hypertension Leg cramps History of stress test History of echocardiogram History of Holter monitoring Diarrhea Lower urinary tract symptoms (LUTS) Acute urinary retention Hypothyroidism Lumbar radiculopathy, acute Near syncope Chest pain Wears glasses Insulin dependent diabetes mellitus High cholesterol Stroke/cerebrovascular accident Dietary restriction Former smoker Cardiology follow-up encounter History of [...] coronary artery (~08/28/01) Atherosclerotic heart disease of [place] coronary artery without angina pectoris Home Medications [...] 07/20/21 01/12/25 History mcg (1,000 unit) tablet lancets 33 gauge ([facility] ea 05/04/24 Unk nown Rx Plus Lancet) atorvastatin 80 mg tablet 80 mg PO QHS CHOLESTEROL #90 08/10/24 01/11/25 Rx TABLETS carvedilol 12.5 mg tablet 12.5 mg PO BID HEART #180 ta bs 08/10/24 01/12/25 Rx lisinopril 20 mg tablet 20 mg PO DAILY BP #90 TABLET S 08/10/24 01/12/25 Rx metformin 500 mg tablet 1,000 mg (2 x 500 mg) PO BID BLOOD 08/10/24 01/12/25 Rx SUGARS #360 tabs pen needle, diabetic 32 gauge x #100 ea 01/04/25 Unkno wn Rx 09/19 (Comfort EZ Pen [place]) finasteride 5 mg tablet 5 mg PO QHS PROSTATE 5 Unknown History blood sugar diagnostic (OneTouch #100 ea 02/24/25 Unkn own Rx Verio test strips) glimepiride 4 mg tablet 4 mg PO BID BLOOD SUGARS #90 tabs 02/25/25 Unknown Rx tamsulosin 0.4 mg capsule 0.4 mg PO QHS PROSTATE #90 c aps 04/09/25 Unknown Rx insulin glargine U-300 conc 300 36 unit (0.12 mL) subc ut DAILY 04/19/25 Unknown Rx unit/mL (1.5 mL) subcutaneous pen BLOOD SUGARS #4.5 mL (Toujeo SoloStar U-300 Insulin) loratadine 10 mg tablet 10 mg PO QDAY ALLERGY Unknown History magnesium glycinate 100 mg (as 400 mg PO QDAY 05/12/25 Unknown History glycinate) tablet prasugrel HCl 10 mg tablet 10 mg PO QDAY HEART #90 tab s 05/18/25 Unknown Rx (Effient) amlodipine 5 mg tablet 5 mg PO QHS BP 05/28/25 Unkn own History famotidine 20 mg tablet 20 mg PO QHS GERD 05/28/25 U nknown History isosorbide mononitrate 30 mg 30 mg PO QHS HEART Unknown History tablet,extended release 24 hr magnesium glycinate 100 mg (as 400 mg PO QHS SUPPLEMEN T 05/28/25 Unknown History glycinate) tablet Allergy/AdvReac Type Severity Reaction Status Date / Time ticagrelor (From Brilinta) AdvReac Severe Other Verified 06/05/25 04:27 Family History Mother CAD (coronary artery disease) Diabetes Myocardial infarction, Onset Age: 48 Father Diabetes Breast cancer Brother Diabetes Cancer Brother Cancer Prostate Surgical History History of cardiac catheterization History of lumbar discectomy Hx of oral surgery History of coronary artery stent placement History [...] fever(s) Eyes Eyes: Denies change in vision or diplopia ENT ENT ED: Denies rhinorrhea or sore throat Cardiovascular Cardiovascular: Denies chest pain or palpitations Respiratory/Chest Respiratory/Chest: Denies cough or dyspnea Gastrointestinal Gastrointestinal: Reports nausea and vomiting; Denies abdominal pain, diarrhea, hematemesis or hematochezia Genitourinary Genitourinary ED: Denies dysuria or hematuria Musculoskeletal Musculoskeletal: Denies back pain or neck pain Integumentary Denies abscess or rash Neurologic Neurologic: Denies headache(s), paresthesias or weakness Psychiatric Psychiatric: Denies anxiety or suicidal thoughts EXAM Physical Exam Const Vital Signs: 06/05/25 04:17 06/05/25 05:29 Temperature 97.9 F 97.8 F Temperature Source Oral Pulse Rate 88 88 Respiratory Rate 16 15 Blood Pressure 173/67 H 162/74 H Blood Pressure Mean 102 103 Pulse Ox 100 100 Oxygen Delivery Method Room Air Positive well nourished and well developed General Appearance ED: well developed and NAD HEENT Reports moist mucous membranes normocephalic and atraumatic Eyes PERRL and EOMs intact bilaterally Neck full ROM and supple Resp normal respiratory effort and clear to auscultation bilaterally Cardio regular rate, regular rhythm and no murmurs GI non-tender and non-distended Auscultation: hypoactive bowel sounds Palpation: soft Back/Spine no CVA tenderness General Back: other FROM Extremity normal to inspection General Extremety ED: Negative for edema, pulses abnormal or tenderness General Extremity: Negative for edema or pulses abnormal Neuro oriented x3, CN's II-XII intact bilaterally and no sensory deficits noted Sensorium / Orientation: awake and alert Motor Exam: strength 5/5 throughout Psych mental status grossly normal and thought process normal Skin no rashes or lesions noted and no wounds MDM MDM MDM Narrative Medical decision making narrative: Differential for this gentleman presenting with nausea and vomiting without any other symptoms includes foodborne illness, in addition to atypical acute coronary syndrome, functional GI etiologies. Obtain labs and screening acute abdominal series, while treating with IV fluids and Zofran. He is EKG is normalreassuring. However, his chemistries are extremely concerning; his creatinine is newly significantly high at 8.74 along with his BUN at 92, which may be the cause of his vomiting, his troponin is 116 although this is nonspecific in context of this new renal failure and not having any symptoms of acute coronary syndrome right now, and his potassium is high 6.3. Looking back at his EKG, there may be very slight T wave peaking but no other changes of hyperkalemia. Therefore he does not need calcium and emergent lowering at this time, but I am giving him Kayexalate, assuming he can tolerate it after Zofran was given. I discussed with renal Dr. Browning, he is in agreement with this and requests a 1-sfnf-znetmg potassium level, and is agreeable to see the patient in consultation here in the hospital. Discussed with hospitalist for PCU admission. He is clinically and hemodynamically stable with blood pressure 162/74, he is not fluid overloaded, and he is relatively asymptomatic right now so I do not think he needs to be in the ICU. Lab Data Attestation: I reviewed the patient's lab results. Labs: Laboratory Results - last 24 hr 06/05/25 04:30 WBC 10.5 RBC 3.75 L Hgb 12.0 L Hct 35.4 L MCV 94.4 H MCH 32.0 MCHC 33.9 RDW Std Deviation 44.4 H RDW Coeff of Rich 12.9 Plt Count 285 MPV 9.9 Immature Gran % (Auto) 0.500 Neut % (Auto) 82.3 H Lymph % (Auto) 11.2 L [place] % (Auto) 5.6 Eos % (Auto) 0.2 Baso % (Auto) 0.2 Absolute Neuts (auto) 8.6 H Absolute Lymphs (auto) 1.17 Nucleated RBC % 0 Sodium 140 Potassium 6.3 H* Chloride 100 Carbon Dioxide 11.0 L Anion Gap 29 H BUN 92 H Creatinine 8.74 H* Estim Creat Clear Calc 7.80 L* Est GFR (MDRD) Non-Af 6 L BUN/Creatinine Ratio 10.5 Glucose 104 H Calcium 10.5 Total Bilirubin 0.29 AST 26 ALT 24 Alkaline Phosphatase 84 Troponin T High Sens 116 H* D Total Protein 6.8 Albumin 3.9 Globulin 2.9 Albumin/Globulin Ratio 1.3 Rhythm Strip Rhythm Strip: Sinus Rhythm Rate: 85 Ectopy: None EKG Initial EKG: Attestation: I personally reviewed and interpreted this EKG as follows: Interpretation: Sinus Rhythm and No Acute Injury Pattern Comments: Nml axis & intervals; nml EKG Prior EKG tracings: available for review Prior: Unchanged Management Discussion w/another healthcare provider: Hospitalist and Chief Lock Tender Operator (Nephrology) Discharge Plan Dx/Rx/DC Orders Clinical Impression: Acute uremia, Acute renal failure, Hyperkalemia, diminished renal excretion, Vomiting Disposition Disposition: [facility] What to do if you have Problems For any increased pain, shortness of breath, bleeding, nausea or vomiting, chestpain, or any unexpected problems, contact your Primary Care Provider. Call [facility] ([phone]) or report to the closest Emergency Room. Call 911 if necessary. 06/05/25 0556 <Electronically signed by Blake Kapoor MD> Cosigner Signature (if applicable): CC: Dr. Briseyda Sinclair MD ~ Signed [facility] Work Phone: 1(244) 943-824809-20-2025 Radiology Diagnostic study [facility]07-28-2025 Evaluation note* Diagnosis Onset Date Resolution Status Admit Date Aneurysm of intracranial artery acute April 12, 2025 12:50pm Bilateral carotid artery stenosis acute April 12, 2025 12:50pm Intracranial vascular stenosis acute April 12, 2025 12:50pm Transient ischemia noneactive March 172024 12:50pm Aneurysm of intracranial artery acute April 28 2:06pm Atherosclerotic heart diseas e of [place] coronary artery without angina pectoris acute April 162024 2:06pm Bilateral carotid artery stenosis acute April 28 2:06pm Atherosclerotic heart diseas e of [place] coronary artery without angina pectoris acute April 162024 1:37pm Essential hypertension chronic Au marciano 2024 1:37pm Type 2 diabetes mellitus chronic May 03, 2025 1:37pm Diarrhea noneactive May 03, 025 1:37pm Carotid stenosis, left chronic Au marciano 2024 3:18pm Acute metabolic acidosis acute June 05, 2025 5:44am Acute renal failure acute 2024 5:44am Acute uremia acute June 052024 5:44am Hyperkalemia, diminished renal excretion acute June 05, 2025 5:44am Hypoglycemia acute June 052024 5:44am Vomiting acute May 5:44am Essential hypertension chronic Se pt2024 5:44am Type 2 diabetes mellitus chronic June 05, 2025 5:44am [facility] Work Phone: 1(270) 646-460207-28-2025 Evaluation note* Diagnosis Onset Date Resolution Status Admit Date Aneurysm of intracranial artery acute April 12, 2025 12:50pm Bilateral carotid artery stenosis acute April 12, 2025 12:50pm Intracranial vascular stenosis acute April 12, 2025 12:50pm Transient ischemia noneactive March 172024 12:50pm Aneurysm of intracranial artery acute April 28 2:06pm Atherosclerotic heart diseas e of [place] coronary artery without angina pectoris acute April 162024 2:06pm Bilateral carotid artery stenosis acute April 28 2:06pm Atherosclerotic heart diseas e of [place] coronary artery without angina pectoris acute April 162024 1:37pm Essential hypertension chronic Au marciano 2024 1:37pm Type 2 diabetes mellitus chronic May 03, 2025 1:37pm Diarrhea noneactive May 03, 2 025 1:37pm Carotid stenosis, left chronic Au marciano 2024 3:18pm Acute metabolic acidosis acute June 05, 2025 5:44am Hyperkalemia, diminished renal excretion acute June 05, 2025 5:44am Vomiting acute May 5:44am Essential hypertension chronic Se pt2024 5:44am Type 2 diabetes mellitus chronic June 05, 2025 5:44am Hypoglycemia resolved June 052024 5:44am Acute renal failure inactive 2024 5:44am Acute uremia inactive June 052024 5:44am Need for Streptococcus pneumoniae vaccination acute June 162024 9:11am [facility] Work Phone: 1(255) 736-734307-28-2025 Evaluation note* Diagnosis Onset Date Resolution Status Admit Date Aneurysm of intracranial artery acute April 12, 2025 12:50pm Bilateral carotid artery stenosis acute April 12, 2025 12:50pm Intracranial vascular stenosis acute April 12, 2025 12:50pm Transient ischemia noneactive March 172024 12:50pm Aneurysm of intracranial artery acute April 28 2:06pm Atherosclerotic heart diseas e of [place] coronary artery without angina pectoris acute April 162024 2:06pm Bilateral carotid artery stenosis acute April 28 2:06pm Atherosclerotic heart diseas e of [place] coronary artery without angina pectoris acute April 162024 1:37pm Essential hypertension chronic Au marciano 2024 1:37pm Type 2 diabetes mellitus chronic May 03, 2025 1:37pm Diarrhea noneactive May 03, 2 025 1:37pm Carotid stenosis, left chronic Au marciano 2024 3:18pm Acute metabolic acidosis acute June 05, 2025 5:44am Hyperkalemia, diminished renal excretion acute June 05, 2025 5:44am Vomiting acute May 5:44am Essential hypertension chronic Se ptember 2024 5:44am Type 2 diabetes mellitus chronic June 05, 2025 5:44am Hypoglycemia resolved June 052024 5:44am Acute renal failure inactive Septe mber 2024 5:44am Acute uremia inactive June 052024 5:44am Need for Streptococcus pneumoniae vaccination acute June 162024 9:11am Encounter for dialysis catheter care acute July 20 8:19am CKD (chronic kidney disease) stage 3, GFR 30-59 ml/min chronic Novemb er 2024 9:18am Type 2 diabetes mellitus chronic July 21, 2025 9:18am [facility] Work Phone: 1(614) 869-891407-14-2025 Discharge summary [facility] Medical Records Department [address] [place] [address] Emergency Department Summary 03/29/25 MR#: [id number] Acct: [id number] Name: COLEMAN DAVIES Rep #:[id number] : 1950 74 From: Ravinder Vance DO PCP: Dr. Briseyda Sinclair MD Status:REG ER Location: ED ADDENDUM by Dr. Blake Kapoor MD on 03/29/25 at 1012 Patient checked out to me shift change. Second troponin came back at 35 down from 39, reassuring incontext of his normal EKG. His heart score is 1, 0, 2, 2, 0 = 5. Currently not having chest discomfort. Stable for discharge and close outpatient follow-up and we discussed reasons to return he is comfortable with that plan as is his . Of note the patient walks 5000 steps 3 times perweek and does not get angina. 03/29/25 1012 Cosigner Signature (if applicable): cc: Dr. Briseyda [...] as well but it resolved after taking zwna-iyu-dhfkozu Imodium. Hestates this morning around 4:00 he awoke and noticed vague chest discomfort. He states there was noassociated nausea vomiting diaphoresis or shortness of breath. [...] coronary artery (~08/28/01) Atherosclerotic heart disease of [place] coronary artery without angina pectoris Home Medications [...] Unkno wn Rx 1/4 (Comfort EZ Pen [place]) finasteride 5 mg tablet 5 mg PO QDAY 01/27/25 Unknow n History blood [facility] Unkn own Rx Verio [...] troponinsare still pending. Therefore he will be signedout to the physician Dr. Kapoor. At this time the patient's CAD has been stable since 2000 and his EKG does not show acute SC and therefore I feel if his overall [...] % (Auto) 50.2 Lymph % (Auto) 31.8 [place] % (Auto) 10.5 H Eos % (Auto) [...] (DME) pen needle, diabetic [Comfort EZ Pen [place]] 32 gauge x 1/4 needle See Rx [...] MD [Primary Care Provider] - Print Language: Tristanian What to do if you have Problems For any increased pain, shortness of breath, bleeding, nausea or vomiting, chestpain, or any unexpected problems, contact your Primary Care Provider. Call [facility] ([phone]) or report tothe closest Emergency Room. Call 911 if necessary. 03/29/25 07 Cosigner Signature (if applicable): CC: Dr. Briseyda Sinclair MD ~ Signed [facility]07-14-2025 Radiology Diagnostic study note [facility] Imaging Services [address] [place] [place], [place] [address] Chest PA and Lateral MR#: [id number] Acct: [id number] Name: COLEMAN DAVIES Rep #: [id number] : 1950 M 74 From: Romana Santos MD PCP: Dr. Briseyda Sinclair MD Status: REG ER Study:Chest PA and Lateral Date of Exam: 03/29/25 Exam# [id number] Ordering Dr: Piper Vance DO PROCEDURE: CHEST [...] is identified in the chest. Reading Location: [facility] CC: Dr. Briseyda Sinclair MD; Ravinder Vance DO ~ Stonecutter Assistant: Signed [facility]06-26-2025 Telephone encounter Note* Telephone Encounter - JARETT Kruse CNP - 03/11/2025 11:49 AM EDT [facility]. [id number] Miscellaneous Notes* Telephone Encounter - JARETT Kruse CNP - 03/11/2025 11:49 AM EDT I did. * Telephone Encounter - Kaylin Meyers - 03/05/2025 8:34 AM EDT Name of caller: Kaelyn Contact phone number: [phone] Relationship to Patient: [facility] Lab Provider: Dr. Blackman Practice: Endovascular Chief Complaint/Reason for Call: Patient PRU lab was cancelled due to wrong color tube. If patient testing needs completed please reorder testing. Lab needs a christine tube, not a long top blue. Best time of day caller can be reached: any Patient advised that office/PCP has 24-48 business hours to return their call: Yes documented in this [facility]06-20-2025 Telephone encounter Note* Telephone Encounter - Kaylin Meyers - 03/05/2025 8:34 AM EDT Name of caller: Kaelyn Contact phone number: [phone] [facility] Provider: Dr. Blackman Practice: Endovascular Chief Complaint/Reason for Call: Patient PRU lab was cancelled due to wrong color tube. If patient testing needs completed please reorder testing. Lab needs a christine tube, not a long top blue. Best time of day caller can be reached: any Patient advised that office/PCP has 24-48 business hours to return their call: Yes [id number] Miscellaneous Notes* Telephone Encounter - Kaylin Meyers - 03/05/2025 8:34 AM EDT Name of caller: Kaelyn Contact phone number: [phone] Relationship to Patient: [facility] Lab Provider: Dr. Blackman Practice: [...] return their call: Yes documented in this [facility]2025 History of Present illness Narrative* Simba Blackman MD - 03/04/2025 12:00 PM EDT History of Present Illness: 74 yo man [...] communicating artery stenosis, right VA stenosis, left cervicalICA 40% stenosis, left carotid siphon 25% stenosis, [...] tablet, , Disp: , Rfl: Droplet [place] 32G X 6 MM [facility], , Disp: , Rfl: famotidine (Pepcid) 20 MG tablet, , Disp: , Rfl: glimepiride (Amaryl) 4 MG tablet, , Disp: , Rfl: isosorbide mononitrate ER (Imdur) 30 MG 24 hr tablet, , Disp: , Rfl: Lancets (PlynkedTouch Delica Plus [id number]) [facility], USE TO TEST BLOOD SUGAR TWICE DAILY FOR DM II, Disp:, Rfl: lisinopril 20 MG tablet, , Disp: , Rfl: metFORMIN (Glucophage) 500 MG tablet, Take 1,000 mg by mouth 2 times daily., Disp: , Rfl: nitroglycerin (Nitrostat) 0.4 MG SL tablet, PLACE 1 TABLET UNDER TONGUE FOR CHEST PAIN. CALL 911 IFNO IMPROVEMENT AFTER 5 MIN. REPEAT DOSE TWICE [...] BP control and also continued smoking cessation. Venizelos, MD I spent 40 minutes with the patient discussing clinical history, imaging, and treatment options (medical, endovascular and surgical). They expressed understanding and agreement with the plan. Patient Education: >= 3 elements of education during at least one visit within a 12 month period- lifestyle, physical activity, diet and medications. Life Style Modification: Yes Smoking cessation counseling: Yes documented in this [facility]06-04-2025 Telephone encounter Note* Telephone Encounter - [facility] - 02/17/2025 11:34 AM EDT Name of caller: Basim Contact phone number: [phone] Relationship to Patient: spouse/SO Provider: Dr. Blackman Practice: Endovascular Chief Complaint/Reason for Call: Basim called advising if patient's referral has been received and she would like to schedule an appointment soon. Please call patient if he referral has been receivedto setup appointment and advise. Best time of day caller can be reached: any Patient advised that office/PCP has 24-48 business hours to return their call: Yes [id number] Miscellaneous Notes* Telephone Encounter - [facility] - 02/17/2025 11:34 AM EDT Name of caller: Basim Contact phone number: [phone] Relationship to Patient: spouse/SO Provider: Dr. Blackman Practice: Endovascular Chief Complaint/Reason for Call: Basim called advising if patient's referral has been received and she would like to schedule an appointment soon. Please call patient if he referral has been receivedto setup appointment and advise. Best time of day caller can be reached: any Patient advised that office/PCP has 24-48 business hours to return their call: Yes documented in this [facility]05-19-2025 Progress note Author Mookie Werner [facility] Note Date/Time February 01, 2025 2:51p m [facility] [address] [place] [address] OFFICE VISIT Date of Service: 02/01/25 MR#: [id number] Acct: [id number] Name: COLEMAN DAVIES Rep #: [id number] : 1950 Provider: Dr. Mookie Werner MD Age/Sex: 74/M Location: [facility] Status: Signed Intake Vital Signs 01/13/25 15:51 [...] room air Intake Visit Reasons: Hospital FU Remote Sensing Program Manager Required: No Accompanied by: Is patient [...] Verio test strips) lancets 33 gauge (OneTouch Yehuda #100 ea 05/04/24 Rx Plus Lancet) atorvastatin [...] ea 01/04/2502/01 Rx 1/4 (Comfort EZ Pen [place]) finasteride 5 mg tablet 5 mg PO QDAY 01/27/25 History Have you fallen in the past year?: [facility] Diabetes Myocardial infarct Lower urinary [...] coronary artery (~08/28/01) Atherosclerotic heart disease of [place] coronary artery without angina pectoris Surgical History [...] aneurysm; will refer to [facility] at [facility] -with regards to cervical ICA disease [...] in the past year?: No 02/01/25 1743 <Electronically signed by Mookie Hall> Date _ Mookie Werner MD [facility] Signature: Date (if applicable) CC: ~ [facility] Work Phone: 1(717) 797-125605-19-2025 Progress [facility] V[facility] Surgery [address] [place] [address]. [address] [place] [address] OFFICE VISIT Date of Service: 02/01/25 MR#: [id number] Acct: [id number] Name: COLEMAN DAVIES Rep #: [id number] : 1950 Provider: Dr. Mookie Werner MD Age/Sex: 74/M Location: [facility] Status: Signed Intake Vital Signs 01/13/25 15:51 [...] room air Intake Visit Reasons: Hospital FU Remote Sensing Program Manager Required: No Accompanied by: Is patient [...] tablet pain #25 tabs blood sugar diagnostic [facility] 05/04/2401/14 Rx Verio test strips) lancets 33 gauge ([facility] ea 05/04/24 Rx Plus Lancet) atorvastatin [...] ea 01/04/2502/01 Rx 1/4 (Comfort EZ [place]) finasteride 5 mg tablet 5 mg PO [...] coronary artery (~08/28/01) Atherosclerotic heart disease of [place] coronary artery without angina pectoris Surgical History [...] NARDA aneurysm; will refer to NeuroInterventional at [facility] -with regards to cervical ICA disease will [...] Orellana Signature: Date (if applicable) CC: ~ [facility]05-01-2025 [facility]04-30-2025 Evaluation note* Diagnosis Onset Date Resolution Status Admit Date TIA (transient ischemic attack) reso lved January 13, 2025 3:02pm Atherosclerotic heart diseas e of [place] coronary artery without angina pectoris acute January [...] 1:21pm Transient ischemia noneactive February 112024 1:21pm [facility] Work Phone: 1(357) 578-782104-30-2025 Evaluation note* Diagnosis Onset Date Resolution Status Admit Date TIA (transient ischemic attack) reso lved January 13, 2025 3:02pm Atherosclerotic heart diseas e of [place] coronary artery without angina pectoris acute January [...] 12:50pm Transient ischemia noneactive March 172024 12:50pm [facility] Work Phone: 1(459) 698-147604-30-2025 Evaluation note* Diagnosis Onset Date Resolution Status Admit Date TIA (transient ischemic attack) reso lved January 13, 2025 3:02pm Atherosclerotic heart diseas e of [place] coronary artery without angina pectoris acute January [...] 2025 2:06pm Atherosclerotic heart diseas e of [place] coronary artery without angina pectoris acute April 162024 2:06pm Bilateral carotid artery stenosis acute April 28 2:06pm Diarrhea noneactive May 03, 2 025 1:37pm [facility] Work Phone: 1(305) 944-637004-30-2025 Evaluation note* Diagnosis Onset Date Resolution Status Admit Date TIA (transient ischemic attack) reso lved January 13, 2025 3:02pm Atherosclerotic heart diseas e of [place] coronary artery without angina pectoris acute January [...] 2025 2:06pm Atherosclerotic heart diseas e of [place] coronary artery without angina pectoris acute April 162024 2:06pm Bilateral carotid artery stenosis acute April 28 2:06pm Atherosclerotic heart diseas e of [place] coronary artery without angina pectoris acute April 162024 1:37pm Essential hypertension chronic Au marciano 2024 1:37pm Type 2 diabetes mellitus chronic May 03, 2025 1:37pm Diarrhea noneactive May 03, 2 025 1:37pm [facility] Work Phone: 1(262) 265-583202-24-2025 Evaluation note* Diagnosis Onset Date Resolution Status Admit Date Atherosclerotic heart diseas e of [place] coronary artery without angina pectoris acute November 09, 2024 1:18pm Bilateral carotid artery stenosis acute November 09, 2 025 1:18pm Dyslipidemia chronic October 1:18pm Essential hypertension chronic 2024 1:18pm Type 2 diabetes mellitus chronic November 09, 2024 1:18pm TIA (transient ischemic attack) reso lved January 13, 2025 3:02pm Atherosclerotic heart diseas e of [place] coronary artery without angina pectoris acute January [...] diabetes mellitus chronic January 27, 2025 2:45pm [facility] Work Phone: 1(264) 776-337602-24-2025 Evaluation note* Diagnosis Onset Date Resolution Status Admit Date Atherosclerotic heart diseas e of [place] coronary artery without angina pectoris acute November 09, 2024 1:18pm Bilateral carotid artery stenosis acute November 09, 2 025 1:18pm Dyslipidemia chronic October 1:18pm Essential hypertension chronic Fe bruary 2024 1:18pm Type 2 diabetes mellitus chronic November 09, 2024 1:18pm TIA (transient ischemic attack) resolved January 13, 2025 3:02pm Atherosclerotic heart diseas e of [place] coronary artery without angina pectoris acute January [...] 1:21pm Transient ischemia noneactive February 112024 1:21pm [facility] Work Phone: 1(829) 580-953502-24-2025 Evaluation note* Diagnosis Onset Date Resolution Status Admit Date Atherosclerotic heart diseas e of [place] coronary artery without angina pectoris acute November 09, 2024 1:18pm Bilateral carotid artery stenosis acute November 09, 2 1:18pm Dyslipidemia chronic October 1:18pm Essential hypertension chronic Fe bruary 2024 1:18pm Type 2 diabetes mellitus chronic November 09, 2024 1:18pm TIA (transient ischemic attack) reso lved January 13, 2025 3:02pm Atherosclerotic heart diseas e of [place] coronary artery without angina pectoris acute January [...] stenosis, left chronic Ma y 2024 1:31pm [facility] Work Phone: 1(349) 247-788901-14-2025 Evaluation note* Diagnosis Onset Date Resolution Status Admit Date History of laminectomy acute Ja [facility] 2024 3:24pm Lumbar radiculopathy acute Job jovi2024 3:24pm Atherosclerotic heart diseas e of [place] coronary artery without angina pectoris acute November 09, 2024 1:18pm Bilateral carotid artery stenosis acute November 09, 2 025 1:18pm Dyslipidemia chronic October 1:18pm Essential hypertension chronic Fe bruary 2024 1:18pm Type 2 diabetes mellitus chronic November 09, 2024 1:18pm [facility] [facility] Work Phone: 1(477) 519-323701-14-2025 Evaluation note* Diagnosis Onset Date Resolution Status Admit Date History of laminectomy acute 2024 3:24pm Lumbar radiculopathy acute 2024 3:24pm Atherosclerotic heart diseas e of [place] coronary artery without angina pectoris acute November 09, 2024 1:18pm Bilateral carotid artery stenosis acute November 09, 2 025 1:18pm Dyslipidemia chronic October 1:18pm Essential hypertension chronic Fe bruary 2024 1:18pm Type 2 diabetes mellitus chronic November 09, 2024 1:18pm TIA (transient ischemic attack) reso lved January 13, 2025 3:02pm [facility] Work Phone: 1(394) 517-798912-05-2024 Evaluation note* Diagnosis Onset Date Resolution Status Admit Date History of laminectomy acute De cember 2023 8:14am Lumbar radiculopathy acute Dece mber 2023 8:14am History of laminectomy acute 2024 3:24pm Lumbar radiculopathy acute Job jovi2024 3:24pm Atherosclerotic heart diseas e of [place] coronary artery without angina pectoris acute November 09, 2024 1:18pm Bilateral carotid artery stenosis acute November 09, 2 025 1:18pm Dyslipidemia chronic October 1:18pm Essential hypertension chronic Fe bruary 2024 1:18pm Type 2 diabetes mellitus chronic November 09, 2024 1:18pm [facility] Work Phone: 1(401) 844-469703-19-2024 History and physical note Author Manuel Gilman [facility] December 03, 2023 6:06am Note Date/Time December 03, 2023 6:0 6am [facility] Medical Records Department [address] [place] [address] History & Physical Exam 12/03/23 0606 MR#: [id number] Acct: [id number] Name: COLEMAN DAVIES Rep #:[id number] : 1950 73 From: Manuel Gilman MD PCP: Dr. Briseyda Sinclair MD Status:[facility] Location: [place] [address] History and Physical Date of Admission: 12/03/23 Visit Reasons: EGD/C-SCOPE DX ANEMIA Chief Complaint: egd/c-scope Remote Sensing Program Manager Required: No Is patient in pain?: [...] 03/29/23 [Rx Confirmed 11/22/23] blood sugar diagnostic (PlynkedTouch Verio test strips) #100 ea 04/03/23 [Rx Confirmed 11/22/23] clopidogrel 75 mg tablet (Plavix) 75 mg PO DAILY #90 tabs 04/22/23 [Rx Confirmed 11/22/23] metformin 500 mg tablet 1,000 mg (2 x 500 mg) PO BID #180 tabs 08/09/23 [Rx Confirmed 11/22/23] amlodipine 5 mg tablet [...] 32 gauge x 1/4 (Comfort EZ Pen [place]) #100 ea 10/23/23 [Rx Confirmed 11/22/23] insulin glargine U-300 conc 300 unit/mL (1.5 mL) subcutaneous pen (Toujeo SoloStar U-300 Insulin) 36 unit (0.12 mL) subcut DAILY #4.5 mL 10/28/23 [Rx Confirmed 11/22/23] isosorbide mononitrate 30 mg tablet,extended release 24 hr 30 mg PO DAILY #90 tabs 10/31/23 [Rx Confirmed 11/22/23] [facility] Medical History Abnormal stress test Atherosclerotic heart disease of [place] coronary artery without angina pectoris Bilateral carotid [...] surgical care Copy: Dr. Briseyda Gilman M.D., [place]. I have examined the patient and the H&P has been reviewed. There are no clinicalchanges since date of exam. Manuel Gilman M.D., [place]. 12/03/23 0606 <Electronically signed by Manuel Gilman MD> Cosigner Signature (if applicable): CC: Dr. Briseyda Sinclair MD; Dr. Manuel Gilman MD~ Signed [facility] Work Phone: 1(215) 114-999703-19-2024 Procedure [facility] 12-03-2023 [facility]03-19-2024 Procedure note [facility]03-19-2024 Procedure [facility] 08-20-2023 Hospital Discharge instructions Additional Instructions Creatinine 1.3 today GFR of 54. Sodium 137. White count 8.0. Hemoglobin 14. Glucose 271, anion gap 9. You are dealing with COVID symptoms. Continue oral fluids for hydration. Follow-up with your doctor. Return if any worsening symptoms for reevaluation.[facility] Work Phone: 1(766) 685-283605-27-2022 NoteHNO ID: [id number] Author: Maria Elena Zhong, PT Service: ? [...] 02/09/2022 and treatment included: Therapeutic activities and Self-fpc management. Goals for Episode of Care: created on 12/28/21 through 02/08/22 Goals updated on 01/19/2022 Goals updated on 02/02/2022 through 03/16/22 Goals updated on 02/09/2022. [place] in [place] exercise program. -- MET Patient [...] Time Minutes (timed/untimed): 30 Maria Elena Zhong, [facility]05-27-2022 History of Present illness Narrative* Maria Elena [...] 02/09/2022 and treatment included: Therapeutic activities and Self-fpc management. Goals for Episode of Care: created on 12/28/21 through 02/08/22 Goals updated on 01/19/2022 Goals updated on 02/02/2022 through 03/16/22 Goals updated on 02/09/2022. [place] in [place] exercise program. -- MET Patient [...] Maria Elena Zhong PT documented in [facility]22 NoteHNO ID: [id number] Author: Maria Elena Zhong PT Service: ? [...] 01/19/2022 Goals updated on 02/02/2022 through 03/16/22 [place] in [place] exercise program. -- MET Patient [...] Patient to be seen for Therapeutic exercise (06133) PLAN FOR NEXT VISIT: Continued PT visits [...] shoulder, scapular elev (more content not included)... [facility]05-20-2022 History of Present illness Narrative* Maria [...] Frequency: 1x/week Planned Treatment Interventions: Therapeutic exercise (43928) PLAN FOR NEXT VISIT: PN next visit, [...] Treatment Time Minutes (timed/untimed): 40 Maria Elena Zhong, PT documented in this encounterPromedica [facility]05-13-2022 NoteHNO ID: [id number] Author: Maria Elena Zhong PT Service: ? [...] Frequency: 1x/week Planned Treatment Interventions: Therapeutic exercise (24629) PLAN FOR NEXT VISIT: SUBJECTIVE: Patient Reason [...] Time Minutes (timed/untimed): 30 Maria Elena Zhong, [facility]05-13-2022 History of Present illness Narrative* Maria Elenaderian Zhong, PT - 01/26/2022 8:41 AM EDT [...] Frequency: 1x/week Planned Treatment Interventions: Therapeutic exercise (62302) PLAN FOR NEXT VISIT: SUBJECTIVE: Patient Reason [...] Maria Elena Zhong PT documented in this encounterPromed[facility]05-06-2022 NoteHNO ID: [id number] Author: Maria Elena Zhong PT Service: ? [...] 12/28/21 through 02/08/22 Goals updated on 01/19/2022. [place] in [place] exercise program. -- MET Patient [...] Patient to be seen for Therapeutic exercise (83691);Self-fpc management (34432);Therapeutic activities (75661);Patient/Family/Caregiver Education;Manual therapy (42667) SUBJECTIVE: Patient Reason for Visit: Pt. reports [...] Intervention: Patient was educ (more content not included)...[facility]05-06-2022 History of Present illness Narrative* Maria [...] 12/28/21 through 02/08/22 Goals updated on 01/19/2022. [place] in [place] exercise program. -- MET Patient [...] Patient to be seen for Therapeutic exercise (11051);Self-fpc management (27977);Therapeutic activities (13029);Patient/Family/Caregiver Education;Manual therapy (69091) SUBJECTIVE: Patient Reason for Visit: Pt. reports [...] and function . Patient education as noted. Self-Assisted Management: 1: *continue wand exercises for stretching [...] Maria Elena Zhong PT documented in this encounterPromedica [facility]04-14-2022 NoteHNO ID: [id number] Author: Maria Elena Zhong PT Service: ? [...] of Care: created on 12/28/21 through 02/08/22 [place] in [place] exercise program. Patient will decrease [...] Planned: 6 Planned Treatment Interventions: Therapeutic exercise (33623);Self-fpc management (28050);Therapeutic activities (99792);Patient/Family/Caregiver Education;Manual therapy (51414) Patient demonstrates good understanding of plan of [...] tasks this summer. Pt. moved here from [place], [place] 6 months ago. Now lives at [facility]. Patient Goals: don/doff jacket without assistance and return to yard work tasks without limitation due to R shoulder pain Functional Limitations: lifting;throwing;reaching behind back;reaching overhead;use hand with arm at shoulder level Prior Level of Function: Independent without limitations Relevant History Past Relevant Medical Conditions: Cardiac;Diabetes;Hypertension;Kidney Problems Past Relevant Surgical Conditions: Rotator Cuff Repair-Right Preferred Language: Tristanian Right or Left Handed: Left Home Environment [...] in relation to the (more content not included)...[facility] 12-28-2021 History of Present illness Narrative* [...] of Care: created on 12/28/21 through 02/08/22 [place] in [place] exercise program. Patient will decrease [...] Planned: 6 Planned Treatment Interventions: Therapeutic exercise (37292);Self-fpc management (08207);Therapeutic activities (37943);Patient/Family/Caregiver Education;Manual therapy (72407) Patient demonstrates good understanding of plan of [...] tasks this summer. Pt. moved here from [place], [place] 6 months ago. Now lives at [facility]. Patient Goals: don/doff jacket without assistance and return to yard work tasks without limitation due to R shoulder pain Functional Limitations: lifting;throwing;reaching behind back;reaching overhead;use hand with arm at shoulder level Prior Level of Function: Independent without limitations Relevant History Past Relevant Medical Conditions: Cardiac;Diabetes;Hypertension;Kidney Problems Past Relevant Surgical Conditions: Rotator Cuff Repair-Right Preferred Language: Tristanian Right or Left Handed: Left Home Environment [...] States/Identifies;Return Demonstration TREATMENT: PT Treatment Interventions: Therapeutic Exercise;Self-Assisted Management Evaluation Evaluation Therapeutic Exercise: 1: *valentin AAROM flexion and abduction 3 sets 10-12 reps, 3x/day 5 sec hold 2: *wand AAROM flexion and abduction 3 sets 10-12 reps, 3x/day 5 sec hold 3: *wand AAROM IR and ER 3 sets 10-12 reps, 3x/day 5 sec hold 4: *saad REAL presses 3 sets 10-12 reps, 3x/day 5 [...] and function . Patient education as noted. Self-Assisted Management: 1: *postural education 2: *staying within [...] Maria Elena Zhong PT documented in this encounterPromedica [facility]12-01-2001 Evaluation note* Diagnosis Onset Date Resolution Status Bilateral carotid artery stenosis acute Essential hypertension acute Hypertriglyceridemia acute Multiple lacunar infarcts [place] Presence of stent in coronary artery August, acute Pure hypercholesterolemia [place] Right carotid artery occlusion acute Type 2 diabetes mellitus acu te CKD (chronic kidney disease) stage 3, GFR 30-59 ml/min chronic Hyperglycemia acute Lactic acidosis acute Weakness acute [facility] Work Phone: Consult note Author Chris Musa tr [facility] Note Date/Time June 05, 2025 7:46pm [facility] Medical Records Department [address] [place] [address] Consultation - Nephrology 06/05/251904 MR#: [id number] Acct: [id number] Name: COLEMAN DAVIES Rep #:[id number] : 1950 74 From: Chris lauren MD PCP: Dr. 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 Patient presented to hospital with 2-day history of intractable nausea/vomiting,anorexia and generalized weakness. Patient was found to have acute kidney injury on chronic kidney disease associated with hyperkalemia and severe metabolic acidosis. Nephrology is asked to the patient because of JINA, metabolic acidosis and hyperkalemia. Acute kidney injury on chronic kidney disease stage G3b. Baseline serum creatinine appears to be around 1.60 to 1.80 mg/dL dating back toaround February 2024. Patient is unaware of prior history of CKD. Patient presented to the hospital with serum creatinine of 8.74 mg/dL. Renal ultrasound is negative for hydronephrosis. UA shows 2+ protein and mild ketonuria. There is no RBCs seen in microscopic examination. Fractional secretion of sodium is greater than 1%. My suspicion is had JINA secondary to severe volume depletion due to intractable nausea/vomiting which has led to ischemic ATN. JINA is likely exacerbated by concurrent use of [place] inhibitor prior to admission. Patient appears to be volume depleted, so we will continue to volume expand patient with isotonic sodium bicarbonate infusion. Potassium level is improving with SPS and bicarbonate infusion. Acute metabolicacidosis is also improving with sodium bicarbonate infusion. Therefore, there is no urgent need for hemodialysis tonight. Continue current supportive care. Keep MAP above 65 mmHg. Continue to hold [place] inhibitor. We will monitor patient closely. Agree with checking metabolic panel every 4 hours. Will reassess patient's volume status, acid-base status and electrolytes again tomorrow. Hyperkalemia. Patient presented to the hospital with potassium level of 7.5 mmol/L on 06/05/2025. Hyperkalemia is secondary to JINA on CKD along with metabolic acidosis and concurrent use of lisinopril prior to presentation. Agree with stopping lisinopril. Patient has been treated with SPS x 2. Potassium level is trending down. Will continue to monitor serum potassium serially. As long as potassium is trending down, we do not need to dialyze the patient tonight. Acute metabolic acidosis. Patient has high anion gap metabolic acidosis. She presented with serum bicarbonate level of 9.2 mmol/L. Acute metabolic acidosis is most likely due to JINA on CKD. Will check serum osmolality to see if there is any osmolar gap. Will also check VBG tonight. Continue sodium bicarbonate infusion to mainly treat hyperkalemia. Will follow the trajectory of serum bicarbonate level. HPI Consult Data Date of Consult: 06/05/25 HPI Narrative Reason for Consultation: Acute kidney injury and hyperkalemia HPI Narrative: The patient is a 74-year-old male with past history of CKD stage G3b, type 2 diabetes mellitus, hypertension, CAD status post PCI, PAD, stroke, hypothyroidism, BPH, iron deficiency anemia, and hyperlipidemia. Patient presented to hospital on 06/05/2025 with 2-day history of generalized weakness, nausea, vomiting and anorexia. During workup in the ED, patient was found to have elevated serum creatinine of 8.74 mg/dL and hyperkalemia with potassium level of 7.5 mmol/L. Nephrology is asked to the patient because of JINA on CKD and hyperkalemia. Baseline serum creatinine has been around 1.60 to 1.80 mg/dL prior to this admission. However, patient is unaware of any prior history of CKD before this admission. Patient denies current chest pain or dyspnea. Nausea has improved with antiemetic. He has not vomited since admission to the hospital. Patient does have loose bowel movements, but he did receive sodium polystyrene sulfonate earlier today with sorbitol. Patient denies orthopnea, PND or edema prior to admission. He does have a history of BPH, but he denies history of urinary hesitancy, urgency, frequency or incontinence. Patient denies chronic use of NSAIDs. The patient had been on lisinopril prior to admission. He did take this medication up until the day of presentation to the hospital. There has been no recent prescription medication changes. [facility] Medical History Cancer Alcohol use History of steroid therapy Back pain TIA (transient ischemic attack) Gastric reflux Shortness of breath on exertion Hypertension Leg cramps History of stress test History of echocardiogram History of Holter monitoring Diarrhea Lower urinary tract symptoms (LUTS) Acute urinary retention Hypothyroidism Lumbar radiculopathy, acute Near syncope Chest pain Wears glasses Insulin dependent diabetes mellitus High cholesterol Stroke/cerebrovascular accident Dietary restriction Former smoker Cardiology follow-up encounter History of [...] coronary artery (~08/28/01) Atherosclerotic heart disease of [place] coronary artery without angina pectoris Home Medications [...] 07/20/21 01/12/25 History mcg (1,000 unit) tablet lancets 33 gauge (OneTouch [place]ica #100 ea 05/04/24 Unk nown Rx Plus Lancet) atorvastatin 80 mg tablet 80 mg PO QHS CHOLESTEROL #90 08/10/24 01/11/25 Rx TABLETS carvedilol 12.5 mg tablet 12.5 mg PO BID HEART #180 ta bs 08/10/24 01/12/25 Rx lisinopril 20 mg tablet 20 mg PO DAILY BP #90 TABLET S 08/10/24 01/12/25 Rx metformin 500 mg tablet 1,000 mg (2 x 500 mg) PO BID BLOOD 08/10/24 01/12/25 Rx SUGARS #360 tabs pen needle, diabetic 32 gauge x #100 ea 01/04/25 Unkno wn Rx 09/19 (Comfort EZ Pen [place]) finasteride 5 mg tablet 5 mg PO QHS PROSTATE 5 Unknown History blood sugar diagnostic (OneTouch #100 ea 02/24/25 Unkn own Rx Verio test strips) glimepiride 4 mg tablet 4 mg PO BID BLOOD SUGARS #90 tabs 02/25/25 Unknown Rx tamsulosin 0.4 mg capsule 0.4 mg PO QHS PROSTATE #90 c aps 04/09/25 Unknown Rx insulin glargine U-300 conc 300 36 unit (0.12 mL) subc ut DAILY 04/19/25 Unknown Rx unit/mL (1.5 mL) subcutaneous pen BLOOD SUGARS #4.5 mL (Toujeo SoloStar U-300 Insulin) loratadine 10 mg tablet 10 mg PO QDAY ALLERGY Unknown History magnesium glycinate 100 mg (as 400 mg PO QDAY 05/12/25 Unknown History glycinate) tablet prasugrel HCl 10 mg tablet 10 mg PO QDAY HEART #90 tab s 05/18/25 Unknown Rx (Effient) amlodipine 5 mg tablet 5 mg PO QHS BP 05/28/25 Unkn own History famotidine 20 mg tablet 20 mg PO QHS GERD 05/28/25 U nknown History isosorbide mononitrate 30 mg 30 mg PO QHS HEART Unknown History tablet,extended release 24 hr magnesium glycinate 100 mg (as 400 mg PO QHS SUPPLEMEN T 05/28/25 Unknown History glycinate) tablet Allergy/AdvReac Type Severity Reaction Status Date / Time ticagrelor (From Brilinta) AdvReac Severe Other Verified 06/05/25 04:27 Family History Mother CAD (coronary artery disease) Diabetes Myocardial infarction, Onset Age: 48 Father Diabetes Breast cancer Brother Diabetes Cancer Brother Cancer Prostate Surgical History History of cardiac catheterization History of lumbar discectomy Hx of oral surgery History of coronary artery stent placement History [...] Does not use ibuprofen daily. ROS ROS Narrative As per HPI otherwise noncontributory Physical Exam Narrative General: Alert and oriented x3, NAD. HEENT: Normocephalic, atraumatic. Mucous membrane dry without erythema. PERRLA, EOMI. Hearing is intact. Neck: Supple, no JVD. Trachea is midline. No thyromegaly or lymphadenopathy. Cardiovascular: Normal S1, S2. No rubs, murmurs, or gallops. Respiratory: Lungs are clear to auscultation bilaterally. No wheezing, rhonchi,or rales. Abdomen: Normal bowel sounds, soft, nontender, no guarding or rebound, no organomegaly. Extremities: No clubbing, cyanosis, or edema. Musculoskeletal: Full passive range of motion, no joint swelling. Psychiatric: Normal mood and affect. Skin: Warm and dry, no rash. Neurologic: Cranial nerve II to XII are grossly intact. No focal neurologic deficits. Lab / Micro Data 06/05/25 04:30 06/05/25 15:55 Labs: Laboratory Results - last 24 hr 06/05/25 04:30: WBC 10.5, RBC 3.75 L, Hgb 12.0 L, Hct 35.4 L, MCV 94.4 H, MCH 32.0, MCHC 33.9, RDW Std Deviation 44.4 H, RDW Coeff of Rich 12.9, Plt Count 285,MPV 9.9, Immature Gran % (Auto) 0.500, Neut % (Auto) 82.3 H, Lymph % (Auto) 11.2L, [place] % (Auto) 5.6, Eos % (Auto) 0.2, Baso % (Auto) 0.2, Absolute Neuts (auto)8.6 H, Absolute Lymphs (auto) 1.17, Nucleated RBC % 0, Sodium 140, Potassium 6.3H*, Chloride 100, Carbon Dioxide 11.0 L, Anion Gap 29 H, BUN 92 H, Creatinine 8.74 H*, Estim Creat Clear Calc 7.80 L*, Est GFR (MDRD) Non-Af 6 L, BUN/Creatinine Ratio 10.5, Glucose 104 H, Calcium 10.5, Phosphorus 6.5 H, Magnesium 2.0, Total Bilirubin 0.29, AST 26, ALT 24, Alkaline Phosphatase 84, Troponin T High Sens 116 H* D, Total Protein 6.8, Albumin 3.9, Globulin 2.9, Albumin/Globulin Ratio 1.3 06/05/25 06:25: Troponin T Hi Sens 2 Hr 110 H* 06/05/25 08:08: Sodium 140, Potassium 7.5 H*, Chloride 103, Carbon Dioxide 9.2 L*, Anion Gap 29 H, BUN 92 H, Creatinine 8.63 H*, Estim Creat Clear Calc 8.05 L*, Est GFR (MDRD) Non-Af 6 L, BUN/Creatinine Ratio 10.7, Glucose 95, Calcium 9.5,Troponin T Hi Sens 4Hr 111 H* 06/05/25 09:14: POC Glucose 90 06/05/25 10:38: POC Glucose 165 H 06/05/25 11:40: Sodium 138, Potassium 7.0 H*, Chloride 102, Carbon Dioxide 8.2 L*, Anion Gap 29 H, BUN 92 H, Creatinine 8.59 H*, Estim Creat Clear Calc 8.09 L*, Est GFR (MDRD) Non-Af 6 L, BUN/Creatinine Ratio 10.7, Glucose 145 H, Calcium 9.4 06/05/25 12:10: Urine Color Yellow, Urine Clarity Clear, Urine pH 6.0, Ur Specific [place] 1.015, Urine Protein 100 H, Urine Glucose (UA) 100 H, Urine Ketones 5 H, Urine Occult Blood 25 H, Urine Nitrite Negative, Urine Bilirubin Negative, Urine Urobilinogen Normal, Ur Leukocyte Esterase Negative, Urine RBC 0-5 SEEN, Urine WBC 0-5 SEEN, Ur Squamous Epith Cells 0 SEEN, Ur Renal Epithelial Cell 0-5 SEEN, Urine Bacteria 0 SEEN, Urine Mucus 0 SEEN, Ur Random Sodium 105, Urine Creatinine 38.30 L 06/05/25 15:55: Sodium 138, Potassium 6.4 H*, Chloride 98, Carbon Dioxide 10.7 L, Anion Gap 30 H, BUN 91 H, Creatinine 8.71 H*, Estim Creat Clear Calc 7.98 L*, Est GFR (MDRD) Non-Af 6 L, BUN/Creatinine Ratio 10.5, Glucose 253 H, Calcium 8.9, Phosphorus 7.5 H, Magnesium 1.8 Rhythm Strip Rhythm Strip: Sinus Rhythm Rate: 85 Ectopy: None Imaging Radiology Impression Acute Abdomen Series 06/05/25 05:00 IMPRESSION: Unremarkable bowel gas pattern. Mild bilateral basilar atelectatic pulmonary changes. [facility] 06/05/25 05:50 IMPRESSION: Right renal cyst. Reading Location: [facility] Echocardiogram 06/05/25 06:53 Interpretation Summary Normal LV size. The left ventricular ejection fraction is 60 %. Mild segmental systolic dysfunction (see wall motion). Septal [place] : Akinetic. Contrast injection was performed. Ordering Physician: Tabby Zuniga Referring Physician: Briseyda Sinclair M.D. Performed By: Veronica Oliva RDCS 06/05/251945 <Electronically signed by Chris Bird MD> Cosigner Signature (if applicable): CC: Dr. Briseyda Sinclair MD~ Signed [facility] Work Phone: Consult note Author Tanika Bear [facility] Note Date/Time June 14, 2025 10:12am [facility] Medical Records Department [address] [place] [address] Consultation - Surgical 06/13/25 09 MR#: [id number] Acct: [id number] Name: COLEMAN DAVIES Rep #:[id number] : 1950 74 From: Tanika Bear MD PCP: Dr. Briseyda Sinclair MD Status:ADM IN Location: [place] [address] Assessment & Plan Assessment/Plan (1) Acute renal failure: PLAN: Plan Discussed with patient and his will plan for the temporary dialysis catheter to be removed tomorrow morning. Plan for placement of a tunneled dialysis catheter right possible left tomorrow early afternoon. Discussed procedure including not limited to risk of bleeding, infection, malfunction of the catheter. Patient and his had no further question this time. Tanika Bear M.D. Pager: [phone] [facility] [address] [place] [address], [address] [place] [address] Office: [phone] HPI Consult Data Date of Consult: 06/14/25 HPI Narrative HPI Narrative: COLEMAN DAVIES, is a 74 M who admitted due to acute kidney injury and has been getting hemodialysis via temporary right IJ dialysis catheter. Plan is for patient to go home and continue hemodialysis and will need tunneled dialysis catheter. 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 [facility] Medical History Cancer Alcohol use History of steroid therapy Back pain TIA (transient ischemic attack) Gastric reflux Shortness of breath on exertion Hypertension Leg cramps History of stress test History of echocardiogram History of Holter monitoring Diarrhea Lower urinary tract symptoms (LUTS) Acute urinary retention Hypothyroidism Lumbar radiculopathy, acute Near syncope Chest pain Wears glasses Insulin dependent diabetes mellitus High cholesterol Stroke/cerebrovascular accident Dietary restriction Former smoker Cardiology follow-up encounter History of [...] coronary artery (~08/28/01) Atherosclerotic heart disease of [place] coronary artery without angina pectoris Home Medications [...] 07/20/21 01/12/25 History mcg (1,000 unit) tablet lancets 33 gauge (OneTouch Delica #100 ea 05/04/24 Unk nown Rx Plus Lancet) atorvastatin 80 mg tablet 80 mg PO QHS CHOLESTEROL #90 08/10/24 01/11/25 Rx TABLETS carvedilol 12.5 mg tablet 12.5 mg PO BID HEART #180 ta bs 08/10/24 01/12/25 Rx lisinopril 20 mg tablet 20 mg PO DAILY BP #90 TABLET S 08/10/24 01/12/25 Rx metformin 500 mg tablet 1,000 mg (2 x 500 mg) PO BID BLOOD 08/10/24 01/12/25 Rx SUGARS #360 tabs pen needle, diabetic 32 gauge x #100 ea 01/04/25 Unkno wn Rx 09/19 (Comfort EZ Pen [place]) finasteride 5 mg tablet 5 mg PO QHS PROSTATE 5 Unknown History blood sugar diagnostic (OneTouch #100 ea 02/24/25 Unkn own Rx Verio test strips) glimepiride 4 mg tablet 4 mg PO BID BLOOD SUGARS #90 tabs 02/25/25 Unknown Rx tamsulosin 0.4 mg capsule 0.4 mg PO QHS PROSTATE #90 c aps 04/09/25 Unknown Rx insulin glargine U-300 conc 300 36 unit (0.12 mL) subc ut DAILY 04/19/25 Unknown Rx unit/mL (1.5 mL) subcutaneous pen BLOOD SUGARS #4.5 mL (Toujeo SoloStar U-300 Insulin) loratadine 10 mg tablet 10 mg PO QDAY ALLERGY Unknown History prasugrel HCl 10 mg tablet 10 mg PO QDAY HEART #90 tab s 05/18/25 Unknown Rx (Effient) amlodipine 5 mg tablet 5 mg PO QHS BP 05/28/25 Unkn own History famotidine 20 mg tablet 20 mg PO QHS GERD 05/28/25 U nknown History isosorbide mononitrate 30 mg 30 mg PO QHS HEART Unknown History tablet,extended release 24 hr magnesium glycinate 100 mg (as 400 mg PO QHS SUPPLEMEN T 05/28/25 Unknown History glycinate) tablet Allergy/AdvReac Type Severity Reaction Status Date / Time ticagrelor (From Brilinta) AdvReac Severe Other Verified 06/05/25 04:27 Family History Mother CAD (coronary artery disease) Diabetes Myocardial infarction, Onset Age: 48 Father Diabetes Breast cancer Brother Diabetes Cancer Brother Cancer Prostate Surgical History History of cardiac catheterization History of lumbar discectomy Hx of oral surgery History of coronary artery stent placement History [...] use. Does not use ibuprofen daily. ROS Constitutional Constitutional: Denies anorexia Eyes Eyes: Denies blurry vision ENT HEENT: Denies dysphagia Cardiovascular Cardiovascular: Denies chest pain Respiratory/Chest Respiratory/Chest: Denies productive cough Gastrointestinal Gastrointestinal: Denies abdominal pain, nausea or vomiting Genitourinary Genitourinary: Denies hematuria Musculoskeletal Musculoskeletal: Denies joint swelling Integumentary Integumentary: Denies jaundice Neurologic Neurologic: Denies focal weakness Psychiatric Psychiatric: Denies anxiety or depression Hematologic/Lymphatic Hematologic/Lymphatic: Denies easy bleeding Physical Exam Narrative Right IJ temporary dialysis catheter in place Const alert, oriented x3 and no apparent distress HEENT normocephalic and head/scalp atraumatic Resp normal respiratory effort Cardio regular rate GI soft to palpation and non-tender; Negative for non-distended Palpation: Negative for guarding Extremity no clubbing, cyanosis or edema Skin no rashes or lesions noted Neuro CN's II-XII intact bilaterally Psych mental status grossly normal Lab / Micro Data 06/14/25 05:02 06/14/25 05:02 Labs: Laboratory Results - last 24 hr 06/12/25 11:45: POC Glucose 332 H 06/12/25 16:36: POC Glucose 325 H 06/12/25 21:18: POC Glucose 201 H 06/13/25 05:23: PT 14.1, INR 1.1, Sodium 148 H, Potassium 3.9, Chloride 112 H, Carbon Dioxide 22.0, Anion Gap 14, BUN 72 H, Creatinine 6.16 H, Estim Creat Clear Calc 10.95 L, Est GFR (MDRD) Non-Af 9 L, BUN/Creatinine Ratio 11.7, Glucose 108 H, Calcium 8.4 06/13/25 07:40: POC Glucose 168 H Rhythm Strip Rhythm Strip: Sinus Rhythm Rate: 85 Ectopy: None Charges/Coding Visit Charges Inpatient E&M: 08729 Init Hosp L3 06/14/25 1012 <Electronically signed by Tanika Bear MD> Cosigner Signature (if applicable): CC: Dr. Briseyda Sinclair MD~ Signed [facility] Work Phone: Consult note Author Geovanni Pathak [facility] Note Date/Time June 14, 2025 10:46am [facility] Medical Records Department [address] [place] [address] Pre-Anesthesia Evaluation 06/14/25 1029 MR#: [id number] Acct: [id number] Name: COLEMAN DAVIES Rep #:[id number] : 1950 74 From: Geovanni Hall PCP: Dr. Briseyda Sinclair MD Status:ADM IN Y Race: C Location: [place] [address] 2-1 ASA Classification* ASA Classification ASA Classification: 3 Assessment & Plan Anesthesia* Anesthesia Assessment Anesthesia Assessment: Discussed sedation and/or anesthesia options, risks, benefits, and alternatives with patient/parents/legal guardian/POA. Questions invited. The patient/parents/legal guardian/POA seems to understand and agrees to proceedwith anesthesia plan. Reviewed the physical assessment, medical history, allergy history and patient home medications list prior to surgery/procedure/anesthetic and documented any changes. Performed airway and anesthesia risk assessments. Anesthesia Type Anesthesia Type: MAC History Source History Obtained from:: Patient and Chart Anesthesia Focused Assessment* Temperature: 97.9 F Pulse Rate: 77 Blood Pressure: 155/70 Respiratory Rate: 18 Pulse Ox: 96 Oxygen Delivery Method: Room Air Oxygen Flow Rate (L/min): 2 Airway Assessment Mouth opens: >3 cm Mallampati Score: III Teeth Condition: Intact Labs Anesthesia Preop lab: CBC WBC, (4.4-11.0) 7.8 K/mm3 Today, 05:02 RBC, (4.6-6.2) 2.78 M/mm3 L Today, 05:02 Hgb, (13.0-16.5) 8.7 g/dL L Today, 05:02 Hct, (40-54) 26.5 % L Today, 05:02 Plt Count, (150-450) 348 K/mm3 Today, 05:02 CHEMISTRY Potassium, (3.3-5.1) 4.3 mmol/L Today, 05:02 Sodium, (133-145) 149 mmol/L H Today, 05:02 Magnesium, (1.5-2.2) 1.7 mg/dL 06/07/25, 05:10 Phosphorus, (2.7-4.5) 6.4 mg/dL H 06/06/25, 04:10 BUN, (4-19) 77 mg/dL H Today, 05:02 Creatinine, (0.70-1.20) 5.97 mg/dL H Today, 05:02 Glucose, (70-99) 104 mg/dL H Today, 05:02 POC Glucose, (74-106) 129 mg/dL H Today, 06:07 TSH, (0.300-4.200) 3.230 uIU/mL 11/18/24, 06:01 COAG PT, (11.7-14.9) 13.5 SECONDS Today, 05:02 Pre-Assessment Diagnosis/Proposed Procedure Planned Operative Procedure(s): Tunneled Dialysis catheter Anesthesia History Anesthesia History - packing inspector: 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 When Was Last Pacemaker Check QUESTION #4 FULL TEXT: You/Your Family Experience fever (hyperthermia) with Anesthesia Last Oral Intake Last Oral intake: Last Oral Intake NPO since 23:00 06/14/25 10:05 Meds taken in AM with sips of Yes 06/14/25 10:05 water? Meds patient instructed to carvedilol 06/14/25 10:05 take am of surgery PONV PONV - packing inspector: PONV - packing inspector Female HX of Motion Sickness HX of N/V After Surgery Non-Smoker Duration of Surgery greater than 60 minutes Number of Risk Factors PONV Score Height & Weight Height & Weight: Anesthesia: Height & Weight Height 6 ft 06/14/25 10:05 Weight: 77.467 kg 06/14/25 10:05 Body Mass Index (BMI) 23.1 06/14/25 10:05 Respiratory Assessment Respiratory Assessment - packing inspector: Respiratory Tract Infection Hx - packing inspector Hx Respiratory Tract Infection No 06/13/25 20:23 STOP Sleep Apnea STOP Sleep Apnea - packing inspector: STOP Sleep Apnea - packing inspector Hx Hypertension Yes: CONTROLLED WITH MEDS 06/10/25 12:27 Hx Sleep Apnea No 06/05/25 07:50 CPAP BIPAP Do you snore loudly (louder No 06/05/25 07:50 than talking or can be heard Do you often feel tired/ Yes 06/05/25 07:50 fatigued/ sleepy during daytime? Has anyone observed you stop No 06/05/25 07:50 breathing during sleep? STOP Results Positive 06/05/25 07:50 QUESTION #5 FULL TEXT : Do you snore loudly (louder than talking or can be heard through closed doors)? Tobacco Use History Tobacco Use History - packing inspector: Tobacco Use History - packing inspector Tobacco Use Cigarettes 04/16/25 13:29 Smoking Status Former smoker 06/05/25 07:50 Hx Tobacco Use No 06/05/25 07:50 Years Smoking Packs Smoked per Day Smoking Cessation Date was No - quit smoking greater 06/05/25 07:50 within the last 15 years than 15 years ago Hx Smoking Cessation Date 08/16/01 06/05/25 07:50 Hx Smoking Cessation No 06/05/25 07:50 Counseling Hematologic Medial History Hematologic Hx - packing inspector: Hematologic Medical Hx - business agent Hx of Blood Transfusion No 06/05/25 07:50 Hx of Transfusion in last 3 No 06/05/25 07:50 Months Date of Last Transfusion (if within last 3 months) Ever experience any problems No 06/05/25 07:50 with transfusion(s)? Specify any problems Hx of Preganancy in last 3 N/A 06/05/25 07:50 Months Nurse Filling Out Transfusion ROME 06/05/25 07:50 & Questions: Date: 06/05/25 06/05/25 07:50 Time: 07:53 06/05/25 07:50 Patient unable to answer at this time (ie. confused, unrespo /Reproduction History /Reproductive History - packing inspector: /Reproductive Hx- packing inspector Hx Now No 06/13/25 20:23 Gestational Age (in weeks): EDC: Hx Hx Para Hx Section SAB No 06/13/25 20:23 Active Medications Active Medications: Current Medications Generic Name Dose Route Start Last Admin Trade Name Freq PRN Reason Stop Dose Admin Acetaminophen 650 mg 06/07/25 21:49 06/09/25 22:21 Acetaminophen 325 Mg Tablet PO 650 mg Q4H PRN PRN Administration Pain 1-10 or Fever Amlodipine Besylate 10 mg 06/09/25 22:00 06/13/25 21:16 Amlodipine 10 Mg Tablet PO 10 mg QHS GUALBERTO Administration Protocol Aspirin 81 mg 06/08/25 08:00 06/13/25 08:56 Aspirin E.C. 81 Mg Tablet PO 81 mg On Hold: 06/13/25 10:02 BREAKFAST GUALBERTO Administration Atorvastatin Calcium 80 mg 06/07/25 22:00 06/13/25 21:16 Atorvastatin Calcium 80 Mg Tablet PO 80 mg QHS GUALBERTO Administration Buspirone HCl 10 mg 06/11/25 10:05 06/14/25 06:42 Buspirone 5 Mg Tablet PO Not Given TID GUALBERTO Carvedilol 12.5 mg 06/08/25 08:00 06/14/25 07:42 Carvedilol 12.5 Mg Tablet PO 12.5 mg BIDCM GUALBERTO Administration Protocol Finasteride 5 mg 06/07/25 22:00 06/13/25 21:16 Finasteride 5 Mg Tablet PO 5 mg QHS GUALBERTO Administration Hydralazine HCl 10 mg 06/08/25 08:00 06/11/25 22:23 Hydralazine 20 Mg/Ml Vial IV 10 mg Q6H PRN PRN Administration SBP>160 Protocol Sodium Chloride 250 mls @ 15 mls/hr 06/08/25 06:10 IV .[id number] PRN Saline Flush Sodium Chloride 250 mls @ 15 mls/hr 06/08/25 06:10 IV .[id number] PRN Additional IVPB Infusion Cefazolin Sodium 2 gm/ Sodium 110 mls @ 200 mls/hr 06/14/25 11:00 Chloride IV 06/14/25 11:32 INTRAOP ONE Lactated Ringer's 1,000 mls @ 15 mls/hr 06/14/25 10:30 06/14/25 10:21 IV 15 mls/hr .Q48H GUALBERTO Administration Insulin Glargine 36 unit 06/10/25 10:00 06/14/25 07:52 Insulin Glargine-Yfgn 100 Unit/Ml Pen SC Not Given DAILY GUALBERTO Insulin Human Lispro 0 unit 06/07/25 22:00 06/14/25 06:43 Insulin Lispro 100 Unit/Ml Insuln.Pen SC Not Given ACHS [facility] Protocol Insulin Human Lispro 8 unit 06/12/25 16:00 06/14/25 06:43 Insulin Lispro 100 Unit/Ml Insuln.Pen SC Not Given TIDAC [facility] Isosorbide Mononitrate 30 mg 06/07/25 22:00 06/13/25 21:16 Isosorbide Mononitrate 30 Mg Tablet PO 30 mg QHS GUALBERTO Administration Protocol Loratadine 10 mg 06/08/25 10:00 06/14/25 07:52 Loratadine 10 Mg Tablet PO Not Given Q48 GUALBERTO Senna 2 tablet 06/07/25 21:42 Senna Tablet PO BID PRN PRN constipation Sodium Chloride 10 - 40 ml 06/08/25 06:10 06/12/25 21:25 0.9% Saline Lock 10 Ml Syringe IV 10 ml UD PRN Administration SALINE FLUSH Tamsulosin HCl 0.4 mg 06/07/25 22:00 06/13/25 21:17 Tamsulosin Hcl 0.4 Mg Capsule PO 0.4 mg QHS GUALBERTO Administration PFSH Medical History Cancer Alcohol use History of steroid therapy Back pain TIA (transient ischemic attack) Gastric reflux Shortness of breath on exertion Hypertension Leg cramps History of stress test History of echocardiogram History of Holter monitoring Diarrhea Lower urinary tract symptoms (LUTS) Acute urinary retention Hypothyroidism Lumbar radiculopathy, acute Near syncope Chest pain Wears glasses Insulin dependent diabetes mellitus High cholesterol Stroke/cerebrovascular accident Dietary restriction Former smoker Cardiology follow-up encounter History of [...] coronary artery (~08/28/01) Atherosclerotic heart disease of [place] coronary artery without angina pectoris Home Medications [...] 07/20/21 01/12/25 History mcg (1,000 unit) tablet lancets 33 gauge [facility]/04/24 Unk nown Rx Plus Lancet) atorvastatin 80 mg tablet 80 mg PO QHS CHOLESTEROL #90 08/10/24 01/11/25 Rx TABLETS carvedilol 12.5 mg tablet 12.5 mg PO BID HEART #180 ta bs 08/10/24 01/12/25 Rx lisinopril 20 mg tablet 20 mg PO DAILY BP #90 TABLET S 08/10/24 01/12/25 Rx metformin 500 mg tablet 1,000 mg (2 x 500 mg) PO BID BLOOD 08/10/24 01/12/25 Rx SUGARS #360 tabs pen needle, diabetic 32 gauge x #100 ea 01/04/25 Unkno wn Rx 1/ (Comfort EZ Pen [place]) finasteride 5 mg tablet 5 mg PO QHS PROSTATE 5 Unknown History blood sugar diagnostic (OneTouch #100 ea 02/24/25 Unkn own Rx Verio test strips) glimepiride 4 mg tablet 4 mg PO BID BLOOD SUGARS #90 tabs 02/25/25 Unknown Rx tamsulosin 0.4 mg capsule 0.4 mg PO QHS PROSTATE #90 c aps 04/09/25 Unknown Rx insulin glargine U-300 conc 300 36 unit (0.12 mL) subc ut DAILY 04/19/25 Unknown Rx unit/mL (1.5 mL) subcutaneous pen BLOOD SUGARS #4.5 mL (Toujesus SoloStar U-300 Insulin) loratadine 10 mg tablet 10 mg PO QDAY ALLERGY Unknown History prasugrel HCl 10 mg tablet 10 mg PO QDAY HEART #90 tab s 05/18/25 Unknown Rx (Effient) amlodipine 5 mg tablet 5 mg PO QHS BP 05/28/25 Unkn own History famotidine 20 mg tablet 20 mg PO QHS GERD 05/28/25 U nknown History isosorbide mononitrate 30 mg 30 mg PO QHS HEART Unknown History tablet,extended release 24 hr magnesium glycinate 100 mg (as 400 mg PO QHS SUPPLEMEN T 05/28/25 Unknown History glycinate) tablet Allergy/AdvReac Type Severity Reaction Status Date / Time ticagrelor (From Brilinta) AdvReac Severe Other Verified 06/05/25 04:27 Family History Mother CAD (coronary artery disease) Diabetes Myocardial infarction, Onset Age: 48 Father Diabetes Breast cancer Brother Diabetes Cancer Brother Cancer Prostate Surgical History History of cardiac catheterization History of lumbar discectomy Hx of oral surgery History of coronary artery stent placement History [...] aspirin use. Does not use ibuprofen daily. Addt'l Information Additional Findings: EF 60%; NSR on EKG Review of Systems (Anesthesia) ROS Narrative System reviewed and no additional complaints, except as documented. Physical Exam Const alert, oriented x3 and average body habitus Cardio regular rate, regular rhythm and no murmurs Cardio Narrative: Previous LAD stent years ago. has > 4 mets 06/14/25 1046 <Electronically signed by Geovanni Pathak MD> Date _ Geovanni Pathak MD Cosigner Signature: Date CC: ~ Signed [facility] Work Phone: Consult note Author Geovanni Pathak [facility] Note Date/Time June 15, 2025 4:18pm [facility] Medical Records Department [address] [place] [id number] Anesthesia Postop Eval II 06/14/25 1312 MR#: [id number] Acct: [id number] Name: COLEMAN DAVIES Rep #:[id number] : 1950 74 From: Geovanni Hall PCP: Dr. Briseyda Sinclair MD Status:ADM IN Y Race: C Location: [place] [address] 2-1 Anesthesia Postop Eval I Sum Postop Eval Completion status Anesthesia document: Postop Eval 1 completed: Yes Anesthesia Postop Eval I Summary Anesthesia Postop Eval I Summary: Anesthesia Postop Eval I: Assessment Summary Airway patent Yes 06/14/25 12:50 AGING BOX HAND.TDOB Spontaneous unlabored Yes 06/14/25 12:50 AGING BOX HAND.TDOB respirations Mental status nausea No 06/14/25 12:50 AGING BOX HAND.TDOB Vomiting No 06/14/25 12:50 AGING BOX HAND.TDOB Anesthesia Postop Eval I: Fluid Summary Crystalloid volume administer 200 06/14/25 12:50 AGING BOX HAND.TDOB (ml) Colloids volume administered ( ml) Blood Product volume administered (ml) Total IV fluid infused 200 06/14/25 12:50 AGING BOX HAND.TDOB Anesthesia Postop Eval I: Summary Notes Anesthesia Complication No 06/14/25 12:50 AGING BOX HAND.TDOB Anesthesia Complication Comment: Post-operative progress note Anesthesia: Postop Eval II Evaluation Mental status: Awake and Calm Pain Level: 1 nausea: No Vomiting: No Complications Anesthesia Complication: No 06/14/25 1312 <Electronically signed by Geovanni Pathak MD> Date _ Geovanni Pathak MD Cosigner Signature: Date CC: ~ Signed [facility] Work Phone: Consult note Author Deion Ramirez [facility] Note Date/Time June 15, 2025 4:18pm [facility] Medical Records Department [address] [place] [address] Counseling Note - Pharmacy 06/15/25 1444 MR#: [id number] Acct: [id number] Name: COLEMAN DAVIES Rep #:[id number] : 1950 74 From: Deion Ramirez PCP: Dr. Briseyda Sinclair MD Status:ADM IN Location: [place] [id number] Counseling Pharmacy Service has performed discharge medication reconciliation and counseling for this patient. The patient's discharge medication list was reviewed for discrepancies and discrepancies were resolved. The patient was counseled on the following discharge medications and changes in medications for homegoing were reviewed. The Reason for Use, instructions for use, and potential side effects were reviewed for all new medications. The patient's questions regarding all of their medications were answered. 1. Buspirone 10 mg PO TID 2. Insulin lispro 10 units TID 3. Senna 2 tablets PO Daily PRN constipation The patient was able to verbally demonstrate an understanding of their dischargemedications. Medications at Discharge Home Medications ascorbic acid (vitamin C) 500 mg tablet 500 mg PO DAILY SUPPLEMENT 07/05/21 aspirin 81 mg tablet,delayed release (Adult Low Dose Aspirin) 81 mg PO DAILY HEART HEALTH 07/05/21 cyanocobalamin (vitamin B-12) 5,000 mcg disintegrating tablet 1,000 mcg PO DAILYSUPPLEMENT 07/05/21 cholecalciferol (vitamin D3) 25 mcg (1,000 unit) tablet 25 mcg PO BID [id number]/04/21 lancets 33 gauge (OneTouch Delica Plus Lancet) #100 ea 05/04/24 atorvastatin 80 mg tablet 80 mg PO QHS CHOLESTEROL #90 TABLETS 08/10/24 carvedilol 12.5 mg tablet 12.5 mg PO BID HEART #180 tabs 08/10/24 lisinopril 20 mg tablet 20 mg PO DAILY BP #90 TABLETS 08/10/24 Held on 06/15/25. Instructions: Hold for kidney failure. metformin 500 mg tablet 1,000 mg (2 x 500 mg) PO BID BLOOD SUGARS #360 tabs 08/10/24 Held on 06/15/25. Instructions: Hold for kidney failure pen needle, diabetic 32 gauge x 1/4 (Comfort EZ Pen [place]) #100 ea 01/04/25 finasteride 5 mg tablet 5 mg PO QHS PROSTATE 01/27/25 blood sugar diagnostic (PlynkedTouch Verio test strips) #100 ea 02/24/25 glimepiride 4 mg tablet 4 mg PO BID BLOOD SUGARS #90 tabs 02/25/25 Held on 06/15/25. Instructions: Because of kidney failure tamsulosin 0.4 mg capsule 0.4 mg PO QHS PROSTATE #90 caps 04/09/25 loratadine 10 mg tablet 10 mg PO QDAY ALLERGY 04/28/25 prasugrel HCl 10 mg tablet (Effient) 10 mg PO QDAY HEART #90 tabs 05/18/25 Held on 06/15/25. Instructions: Hold for 5 days. amlodipine 5 mg tablet 5 mg PO QHS BP 05/28/25 famotidine 20 mg tablet 20 mg PO QHS GERD 05/28/25 isosorbide mononitrate 30 mg tablet,extended release 24 hr 30 mg PO QHS HEART 05/28/25 buspirone 10 mg tablet 10 mg PO TID 30 days #90 tabs 06/15/25 insulin glargine U-300 conc 300 unit/mL (1.5 mL) subcutaneous pen (Butch SoloStar U-300 Insulin) 36 unit (0.12 mL) subcut DAILY BLOOD SUGARS #4.5 mL 06/15/25 insulin lispro 100 unit/mL subcutaneous pen (Humalog KwikPen (U-100) Insulin) 10unit (0.1 mL) subcut TIDAC 1 month #15 mL 06/15/25 sennosides 8.6 mg tablet 17.2 mg (2 x 8.6 mg) PO BID PRN PRN constipation #0 tabs 06/15/25 06/15/25 1444 <Electronically signed by Deion cano> Date _ Deion Ramirez Cosigner Signature (if applicable): Date CC: ~ Signed [facility] Work Phone: Discharge summary Author [facility] Note Date/Time March 29, 2025 10:1 2am [facility] Medical Records Department [address] [place] [address] Emergency Department Summary 03/29/25 MR#: [id number] Acct: [id number] Name: COLEMAN DAVIES Rep #:[id number] : 1950 74 From: Ravinder Vance DO [...] as well but it resolved after taking [id number] Imodium. He states this morning around 4:00 [...] coronary artery (~08/28/01) Atherosclerotic heart disease of [place] coronary artery without angina pectoris Home Medications [...] tablet pain #25 tabs lancets 33 gauge ([facility] ea 05/04/24 Unk nown Rx Plus [...] Unkno wn Rx 1/4 (Comfort EZ Pen [place]) finasteride 5 mg tablet 5 mg PO [...] and his EKG does not show acute SC and therefore I feel if his overall [...] % (Auto) 50.2 Lymph % (Auto) 31.8 [place] % (Auto) 10.5 H Eos % (Auto) [...] (DME) pen needle, diabetic [Comfort EZ Pen [place]] 32 gauge x 1/4 needle See Rx [...] MD [Primary Care Provider] - Print Language: Tristanian What to do if you have Problems For any increased pain, shortness of breath, bleeding, nausea or vomiting, chestpain, or any unexpected problems, contact your Primary Care Provider. Call [facility] ([phone]) or report to the closest Emergency Room. Call 911 if necessary. 03/29/25 0327 <Electronically signed by Ravinder Vance DO> Cosigner Signature (if applicable): CC: Dr. Briseyda Sinclair MD ~ Signed [facility] Work Phone: Discharge summary Author Blake Kapoor [facility] Note Date/Time June 05, 2025 5:56am [facility] Medical Records Department [address] [place] [address] Emergency Department Summary 06/05/25 MR#: [id number] Acct: [id number] Name: COLEMAN DAVIES Rep #:[id number] : 1950 74 From: Blake Kapoor MD PCP: Dr. Briseyda Sinclair MD Status:REG ER Location: ED HPI HPI - GI History of Present Illness Chief Complaint: Nausea/Vomiting Informant: patient and spouse/S.O. Narrative Narrative: 74-year-old diabetic male went out the with his 2 nights ago, and about 3 hours later he did not feel well and vomited. No blood. No abdominal pain or diarrhea. The next morning, he vomited again, he ate very little throughout theday, and then all this past night he has been up vomiting recurrently. He states some of the vomit looked a little brown but nothing that looked bilious/green, or coffee-ground emesis, or bloody. No diarrhea, no abdominal pain, no chest pain, no dyspnea, cough, fevers or chills, or any other symptoms. No history of any abdominal surgeries in the past. ate at the same restaurant as he did but she did not have the same thing; he had shrimp. He has had no alcohol use. [facility] Medical History Cancer Alcohol use History of steroid therapy Back pain TIA (transient ischemic attack) Gastric reflux Shortness of breath on exertion Hypertension Leg cramps History of stress test History of echocardiogram History of Holter monitoring Diarrhea Lower urinary tract symptoms (LUTS) Acute urinary retention Hypothyroidism Lumbar radiculopathy, acute Near syncope Chest pain Wears glasses Insulin dependent diabetes mellitus High cholesterol Stroke/cerebrovascular accident Dietary restriction Former smoker Cardiology follow-up encounter History of [...] coronary artery (~08/28/01) Atherosclerotic heart disease of [place] coronary artery without angina pectoris Home Medications [...] 07/20/21 01/12/25 History mcg (1,000 unit) tablet lancets 33 gauge (OneTouch Delica #100 ea 05/04/24 Unk nown Rx Plus Lancet) atorvastatin 80 mg tablet 80 mg PO QHS CHOLESTEROL #90 08/10/24 01/11/25 Rx TABLETS carvedilol 12.5 mg tablet 12.5 mg PO BID HEART #180 ta bs 08/10/24 01/12/25 Rx lisinopril 20 mg tablet 20 mg PO DAILY BP #90 TABLET S 08/10/24 01/12/25 Rx metformin 500 mg tablet 1,000 mg (2 x 500 mg) PO BID BLOOD 08/10/24 01/12/25 Rx SUGARS #360 tabs pen needle, diabetic 32 gauge x #100 ea 01/04/25 Unkno wn Rx 1/ (Comfort EZ Pen [place]) finasteride 5 mg tablet 5 mg PO QHS PROSTATE 5 Unknown History blood sugar diagnostic (OneTouch #100 ea 02/24/25 Unkn own Rx Verio test strips) glimepiride 4 mg tablet 4 mg PO BID BLOOD SUGARS #90 tabs 02/25/25 Unknown Rx tamsulosin 0.4 mg capsule 0.4 mg PO QHS PROSTATE #90 c aps 04/09/25 Unknown Rx insulin glargine U-300 conc 300 36 unit (0.12 mL) subc ut DAILY 04/19/25 Unknown Rx unit/mL (1.5 mL) subcutaneous pen BLOOD SUGARS #4.5 mL (Toujeo SoloStar U-300 Insulin) loratadine 10 mg tablet 10 mg PO QDAY ALLERGY Unknown History magnesium glycinate 100 mg (as 400 mg PO QDAY 05/12/25 Unknown History glycinate) tablet prasugrel HCl 10 mg tablet 10 mg PO QDAY HEART #90 tab s 05/18/25 Unknown Rx (Effient) amlodipine 5 mg tablet 5 mg PO QHS BP 05/28/25 Unkn own History famotidine 20 mg tablet 20 mg PO QHS GERD 05/28/25 U nknown History isosorbide mononitrate 30 mg 30 mg PO QHS HEART Unknown History tablet,extended release 24 hr magnesium glycinate 100 mg (as 400 mg PO QHS SUPPLEMEN T 05/28/25 Unknown History glycinate) tablet Allergy/AdvReac Type Severity Reaction Status Date / Time ticagrelor (From Brilinta) AdvReac Severe Other Verified 06/05/25 04:27 Family History Mother CAD (coronary artery disease) Diabetes Myocardial infarction, Onset Age: 48 Father Diabetes Breast cancer Brother Diabetes Cancer Brother Cancer Prostate Surgical History History of cardiac catheterization History of lumbar discectomy Hx of oral surgery History of coronary artery stent placement History [...] fever(s) Eyes Eyes: Denies change in vision or diplopia ENT ENT ED: Denies rhinorrhea or sore throat Cardiovascular Cardiovascular: Denies chest pain or palpitations Respiratory/Chest Respiratory/Chest: Denies cough or dyspnea Gastrointestinal Gastrointestinal: Reports nausea and vomiting; Denies abdominal pain, diarrhea, hematemesis or hematochezia Genitourinary Genitourinary ED: Denies dysuria or hematuria Musculoskeletal Musculoskeletal: Denies back pain or neck pain Integumentary Denies abscess or rash Neurologic Neurologic: Denies headache(s), paresthesias or weakness Psychiatric Psychiatric: Denies anxiety or suicidal thoughts EXAM Physical Exam Const Vital Signs: 06/05/25 04:17 06/05/25 05:29 Temperature 97.9 F 97.8 F Temperature Source Oral Pulse Rate 88 88 Respiratory Rate 16 15 Blood Pressure 173/67 H 162/74 H Blood Pressure Mean 102 103 Pulse Ox 100 100 Oxygen Delivery Method Room Air Positive well nourished and well developed General Appearance ED: well developed and NAD HEENT Reports moist mucous membranes normocephalic and atraumatic Eyes PERRL and EOMs intact bilaterally Neck full ROM and supple Resp normal respiratory effort and clear to auscultation bilaterally Cardio regular rate, regular rhythm and no murmurs GI non-tender and non-distended Auscultation: hypoactive bowel sounds Palpation: soft Back/Spine no CVA tenderness General Back: other FROM Extremity normal to inspection General Extremety ED: Negative for edema, pulses abnormal or tenderness General Extremity: Negative for edema or pulses abnormal Neuro oriented x3, CN's II-XII intact bilaterally and no sensory deficits noted Sensorium / Orientation: awake and alert Motor Exam: strength 5/5 throughout Psych mental status grossly normal and thought process normal Skin no rashes or lesions noted and no wounds MDM MDM MDM Narrative Medical decision making narrative: Differential for this gentleman presenting with nausea and vomiting without any other symptoms includes foodborne illness, in addition to atypical acute coronary syndrome, functional GI etiologies. Obtain labs and screening acute abdominal series, while treating with IV fluids and Zofran. He is EKG is normalreassuring. However, his chemistries are extremely concerning; his creatinine is newly significantly high at 8.74 along with his BUN at 92, which may be the cause of his vomiting, his troponin is 116 although this is nonspecific in context of this new renal failure and not having any symptoms of acute coronary syndrome right now, and his potassium is high 6.3. Looking back at his EKG, there may be very slight T wave peaking but no other changes of hyperkalemia. Therefore he does not need calcium and emergent lowering at this time, but I am giving him Kayexalate, assuming he can tolerate it after Zofran was given. I discussed with renal Dr. Browning, he is in agreement with this and requests a [id number]-[id number] potassium level, and is agreeable to see the patient in consultation here in the hospital. Discussed with hospitalist for PCU admission. He is clinically and hemodynamically stable with blood pressure 162/74, he is not fluid overloaded, and he is relatively asymptomatic right now so I do not think he needs to be in the ICU. Lab Data Attestation: I reviewed the patient's lab results. Labs: Laboratory Results - last 24 hr 06/05/25 04:30 WBC 10.5 RBC 3.75 L Hgb 12.0 L Hct 35.4 L MCV 94.4 H MCH 32.0 MCHC 33.9 RDW Std Deviation 44.4 H RDW Coeff of Rich 12.9 Plt Count 285 MPV 9.9 Immature Gran % (Auto) 0.500 Neut % (Auto) 82.3 H Lymph % (Auto) 11.2 L [place] % (Auto) 5.6 Eos % (Auto) 0.2 Baso % (Auto) 0.2 Absolute Neuts (auto) 8.6 H Absolute Lymphs (auto) 1.17 Nucleated RBC % 0 Sodium 140 Potassium 6.3 H* Chloride 100 Carbon Dioxide 11.0 L Anion Gap 29 H BUN 92 H Creatinine 8.74 H* Estim Creat Clear Calc 7.80 L* Est GFR (MDRD) Non-Af 6 L BUN/Creatinine Ratio 10.5 Glucose 104 H Calcium 10.5 Total Bilirubin 0.29 AST 26 ALT 24 Alkaline Phosphatase 84 Troponin T High Sens 116 H* D Total Protein 6.8 Albumin 3.9 Globulin 2.9 Albumin/Globulin Ratio 1.3 Rhythm Strip Rhythm Strip: Sinus Rhythm Rate: 85 Ectopy: None EKG Initial EKG: Attestation: I personally reviewed and interpreted this EKG as follows: Interpretation: Sinus Rhythm and No Acute Injury Pattern Comments: Nml axis & intervals; nml EKG Prior EKG tracings: available for review Prior: Unchanged Management Discussion w/another healthcare provider: Hospitalist and Chief Lock Tender Operator (Nephrology) Discharge Plan Dx/Rx/DC Orders Clinical Impression: Acute uremia, Acute renal failure, Hyperkalemia, diminished renal excretion, Vomiting Disposition Disposition: Acute Care Hospital [facility] What to do if you have Problems For any increased pain, shortness of breath, bleeding, nausea or vomiting, chestpain, or any unexpected problems, contact your Primary Care Provider. Call [facility] ([phone]) or report to the closest Emergency Room. Call 911 if necessary. 06/05/25 0556 <Electronically signed by Blake Kapoor MD> Cosigner Signature (if applicable): CC: Dr. Briseyda Sinclair MD ~ Signed [facility] Work Phone: Discharge summary Author Fawad Bates [facility] Note Date/Time June 15, 2025 1:56pm [facility] Medical Records Department [address] [place] [address] Instructions for Home/Discharge Instructions 06/15/25 1052 MR#: [id number] Acct: [id number] Name: COLEMAN DAVIES Rep #:[id number] : 1950 74 From: Fawad Hall PCP: Dr. Briseyda Sinclair MD Status:ADM IN Discharge Instructions DC O2, CPAP, BIPAP needs Home O2 Discharge instructions: No Dressing / Incision Discharge Activity: Return to Normal Activity Weight Bearing Status: Weight bearing as tolerated Dressing / Incision Call your doctor if you observe: Fever of 101 or Higher, Coldness, Increased Pain, Numbness or Tingling, Change in Color, Inability to urinate, Inability to have a bowel movement, Shortness of breath, Dizziness, Fainting spells, Swellingin the ankles, Chest pain, Prolonged hiccupping, Increased palpitations (irregular heartbeat) and Calf discomfort Follow Up Care When: IN 2 WEEKS Test Results: Test results from this visit will be discussed in further detail at your follow- up appointment, if applicable. Discharge Plan Admission Admit Date/Time: 06/05/25 05:44 Primary Reason for Your Visit: JINA, etiology unclear Attending Provider: Fawad Bates Primary Care Provider: Briseyda Sinclair Consulting Providers: Tabby Zuniga; Richi Hope; Yohannes Santiago; Candy Vo; Tanika Bear Instructions Patient Instructions: RAD medical services assistant Instructions for Kidney Biopsy, RAD RN Procedural Sedation Discharge Orders/Prescriptions Prescriptions: New buspirone 10 mg tablet 10 mg PO TID 30 Days Qty: 90 0RF sennosides 8.6 mg tablet 17.2 mg PO BID PRN PRN (Reason: constipation) Qty: 0 0RF Rx Instructions: Bvtn-hrr-yvfwkaa. 2 tablet twice daily as needed for constipation. insulin lispro [Humalog KwikPen Insulin] 100 unit/mL Insulin Pen 10 unit subcut TIDAC 30 Days Qty: 15 2RF Rx Instructions: Hold if glucose less than 120 mg/dl Continued cyanocobalamin (vitamin B-12) 5,000 mcg tablet,disintegrating 1,000 mcg PO DAILY ascorbic acid (vitamin C) 500 mg tablet 500 mg PO DAILY aspirin [Adult Low Dose Aspirin] 81 mg tablet,delayed release (DR/EC) 81 mg PO DAILY cholecalciferol (vitamin D3) 25 mcg (1,000 unit) tablet 25 mcg PO BID finasteride 5 mg tablet 5 mg PO QHS loratadine 10 mg tablet 10 mg PO QDAY isosorbide mononitrate 30 mg tablet extended release 24 hr 30 mg PO QHS amlodipine 5 mg tablet 5 mg PO QHS Patient Comments: PT TAKES AT BEDTIME famotidine 20 mg tablet 20 mg PO QHS insulin glargine U-300 conc [Toujeo SoloStar U-300 Insulin] 300 unit/mL (1.5 mL) insulin pen 36 unit subcut DAILY Qty: 4.5 5RF Rx Instructions: Hold if glucose less than 90 mg/dl (DME) lancets [OneTouch Delica Plus Lancet] 33 gauge misc See Rx Instructions .Route Qty: 100 0RF Rx Instructions: As directed Twice Daily to monitor blood glucose for DM II carvedilol 12.5 mg tablet 12.5 mg PO BID Qty: 180 3RF atorvastatin 80 mg tablet 80 mg PO QHS Qty: 90 3RF (DME) pen needle, diabetic [Comfort EZ Pen [place]] 32 gauge x 1/4 needle See Rx Instructions .Route Qty: 100 5RF Rx Instructions: once daily to administer insulin.. 6mm pen needle (DME) OneTouch Verio test strips Strip See Rx Instructions .ROUTE .MEDSUPPLY Qty: 100 11RF Rx Instructions: use as directed twice daily t monitor blood glucose for type 2 DM tamsulosin 0.4 mg capsule 0.4 mg PO QHS Qty: 90 3RF Held lisinopril 20 mg tablet 20 mg PO DAILY Qty: 90 3RF Hold Instructions: Hold for kidney failure. metformin 500 mg tablet 1,000 mg PO BID Qty: 360 3RF Hold Instructions: Hold for kidney failure glimepiride 4 mg tablet 4 mg PO BID Qty: 90 3RF Hold Instructions: Because of kidney failure prasugrel HCl [Effient] 10 mg tablet 10 mg PO QDAY Qty: 90 3RF Hold Instructions: Hold for 5 days. Discontinued magnesium glycinate 100 mg tablet 400 mg PO QHS Referrals / Follow Up: Yohannes Santiago MD [Med Staff - Consulting, Nephrology] - Within 1 Week Referral Note: Next hemodialysis on is as an outpatient Briseyda Sinclair MD [Primary Care Provider, Internal Medicine - [facility]] Disposition Disposition (needs filled in before D/C Order can be placed): Home, Self Care 06/15/25 1356<Electronically signed by Fawad Bates MD>Fawad Bates MD CC: Dr. Tabby Zuniga MD; Dr. Richi Hope MD; Dr. Yohannes Santiago MD; Dr. Candy Vo DO; Dr. Briseyda Sinclair MD; Dr. Tanika Bear MD ~ Signed [facility] Work Phone: Discharge summary Author Fawad Bates [facility] Note Date/Time June 15, 2025 2:02pm [facility] Medical Records Department [address] [place] [id number] Discharge Summary 06/15/25 1356 MR#: [id number] Acct: [id number] Name: COLEMAN DAVIES Rep #:[id number] : 1950 74 From: Fawad Hall PCP: Dr. Briseyda Sinclair MD Status:ADM IN Location: [place] [id number] Providers Date of Admission: 06/05/25 Date of Discharge: 06/15/25 Primary Care Physician: Dr. Briseyda Sinclair MD Consultations 06/05/25 06:53 Consult: Nephrology Routine Consulting Provider: Yohannes Santiago Reason for Consult: JINA, hyper K EMERGENT Consult: No Notified: Yes Date Notified: 06/05/25 Time Notified: 05:45 Method of Notification: ED Physician Initiated 06/12/25 12:40 Consult: General Surgery Routine Consulting Provider: Tanika Bear Reason for Consult: Tunneled Alysis catheter on 06/14/2024, JINA on dialysis. EMERGENT Consult: No Notified: Yes Date Notified: 06/12/25 Time Notified: 12:41 Method of Notification: Verbal Reason For Visit: INTRACTABLE N/V, HYPERK, JINA, ELEVATED TROP Diagnosis Discharge Diagnosis (1) Acute renal failure: Status: Acute Code(s): N17.9 - Acute kidney failure, unspecified (2) Hyperkalemia, diminished renal excretion: Status: Acute Code(s): E87.5 - Hyperkalemia (3) Acute metabolic acidosis: Status: Acute Code(s): E87.21 - Acute metabolic acidosis (4) Essential hypertension: Status: Chronic Code(s): I10 - Essential (primary) hypertension (5) Type 2 diabetes mellitus: Status: Chronic Code(s): E11.9 - Type 2 diabetes mellitus without complications Qualifiers: Diabetes mellitus halfway insulin use: without marine oil terminal superintendent use Diabetesmellitus complication status: with circulatory complication Diabetes mellitus complication detail: with other circulatory complications Qualified Code(s): E11.59 - Type 2 diabetes mellitus with other circulatory complications Plan 74-year-old gentleman was admitted with intractable nausea and vomiting and found to have JINA with hyperkalemia, admitted on the monitored bed. Required further transfer to ICU for acute hyperkalemia and that downgraded to PCU JINA on CKD stage IIIb - Baseline creatinine is between 1.4 and 1.6 as of March 2025 - Urine output seems to be improving -Renal biopsy for Saturday if renal function is not recovering -Effient on hold okay per discussion with Dr. Garrison but will need help for 7days prior to biopsy - Continue Bolaños and monitor for renal recovery - Serologies were unremarkable - Nephrology following-appreciate input - Will decide on ongoing needs in the next 24 hours 06/11: On admission patient creatinine was 8.74, creatinine 10.7 and then fluctuates, today 7.70. BUN fluctuates between 70-90. [employer] Professor report reviewed. Patient urine output is good. Hemodialysis today. Serologies are negative. Plan for kidney biopsy on Saturday. Likely tentative discharge on Saturday. 06/12: Patient had about 2500 mL of urine output. No significant fluid removal on dialysis here yesterday but mainly for electrolyte support. Discussed with the voucher clerk we will surgery. Plan for tunneled dialysis catheter and renalbiopsy on Saturday informed by the patient and his . Surgery consulted for tunneled dialysis catheter. 06/13: Good urine output. Bolaños catheter was removed yesterday. Was evaluated by voucher clerk. Plan for right IJ dialysis catheter removal tomorrow and then tunneled dialysis catheter. They also plan for kidney biopsy tomorrow. Creatinine not improving. Serum sodium 148, chloride 112. Potassium normal. BUN 72 06/14: Right neck IJ temporary dialysis catheter was removed. Patient was frustrated in the morning try to convince because of postponement of kidney biopsy. Patient had tunneled Alysis catheter and undergoing hemodialysis in theafternoon. Hemostasis good. Discussed with IR regarding postponement of kidneybiopsy because of time conflict. 06/15: Patient had CT-guided biopsy of left inferior pole. No significant pain tenderness bleeding or hematoma. Dressing is dry. Patient had dialysis yesterday. Next visit scheduled on as an outpatient. Discussed with the voucher clerk. Kidney biopsy will be discussed when report available as an outpatient by the voucher clerk Anion gap metabolic acidosis - Much improved and is improving with improved renal function 06/13 anion gap is normal 14. Acute on chronic anemia - Stable - No signs of acute drop at this time - Will continue to monitor - Baseline appears to be between 11 and 13 - 06/11 hemoglobin 8.9 decreased from 12.0. His baseline hemoglobin is about 12 in November 2024. Not on any scheduled anticoagulant. Only on baby aspirin. 06/12: H&H 8.4/24.9%. 06/14 H&H 8.7/26%. Platelet count 348K. 06/15: H&H 8.2/25.1%. Platelet count in normal. Hold prasugrel for 5 days as patient had kidney biopsy today. Continue baby aspirin. CAD/carotid artery stenosis/essential hypertension/hyperlipidemia/history of TIA - No stents within the last 12 months - Effient on hold for renal biopsy --> discussed with cardiology - continue home aspirin - Continue home carvedilol - continue home amlodipine - Lisinopril on hold due to renal dysfunction - Continue isosorbide mononitrate - Follows with vascular and cardiology as an outpatient - BP is overall improved 06/05; blood pressure is good 06/15: Blood pressure is good. Continue holding lisinopril. DM-2 - Hold metformin - Hold glimepiride - SSI 06/12: Blood sugar is variable 117 and then 332. Humalog insulin added. 06/15: Blood sugar acceptable limit. Prescription given for Humalog insulin. Continue Insulin glargine/Toujeo Solostar. Patient has cutaneous glucometer sensor GERD - Continue famotidine Seasonal allergies - Continue home loratadine 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 - Bolaños in place DVT prophylaxis - Continue subcu heparin Anxiety: Buspirone 10 10 mg 3 times daily. CODE STATUS - Full code Discharge medication reconciliation done. Discharge follow-up instructions completed. Discharge process discussed with the patient and all questions wereanswered to patient's satisfaction. Follow with PCP in 1 to 2 weeks Total time spent, exact 35 minutes on discharge meds reconciliation, examination, coordination of care with nurses and ancillary staff, review of imaging and blood test and discussion with the patient on follow-up instructions. Medications at Discharge Home Medications ascorbic acid (vitamin C) 500 mg tablet 500 mg PO DAILY SUPPLEMENT 07/05/21 aspirin 81 mg tablet,delayed release (Adult Low Dose Aspirin) 81 mg PO DAILY HEART [facility] 07/05/21 cyanocobalamin (vitamin B-12) 5,000 mcg disintegrating tablet 1,000 mcg PO DAILYSUPPLEMENT 07/05/21 cholecalciferol (vitamin D3) 25 mcg (1,000 unit) tablet 25 mcg PO BID [id number]/04/21 lancets 33 gauge (OneTouch Delica Plus Lancet) #100 ea 05/04/24 atorvastatin 80 mg tablet 80 mg PO QHS CHOLESTEROL #90 TABLETS 08/10/24 carvedilol 12.5 mg tablet 12.5 mg PO BID HEART #180 tabs 08/10/24 lisinopril 20 mg tablet 20 mg PO DAILY BP #90 TABLETS 08/10/24 Held on 06/15/25. Instructions: Hold for kidney failure. metformin 500 mg tablet 1,000 mg (2 x 500 mg) PO BID BLOOD SUGARS #360 tabs 08/10/24 Held on 06/15/25. Instructions: Hold for kidney failure pen needle, diabetic 32 gauge x 1/4 (Comfort EZ Pen [place]) #100 ea 01/04/25 finasteride 5 mg tablet 5 mg PO QHS PROSTATE 01/27/25 blood sugar diagnostic (OneTouch Verio test strips) #100 ea 02/24/25 glimepiride 4 mg tablet 4 mg PO BID BLOOD SUGARS #90 tabs 02/25/25 Held on 06/15/25. Instructions: Because of kidney failure tamsulosin 0.4 mg capsule 0.4 mg PO QHS PROSTATE #90 caps 04/09/25 loratadine 10 mg tablet 10 mg PO QDAY ALLERGY 04/28/25 prasugrel HCl 10 mg tablet (Effient) 10 mg PO QDAY HEART #90 tabs 05/18/25 Held on 06/15/25. Instructions: Hold for 5 days. amlodipine 5 mg tablet 5 mg PO QHS BP 05/28/25 famotidine 20 mg tablet 20 mg PO QHS GERD 05/28/25 isosorbide mononitrate 30 mg tablet,extended release 24 hr 30 mg PO QHS HEART 05/28/25 buspirone 10 mg tablet 10 mg PO TID 30 days #90 tabs 06/15/25 insulin glargine U-300 conc 300 unit/mL (1.5 mL) subcutaneous pen (Toujeo SoloStar U-300 Insulin) 36 unit (0.12 mL) subcut DAILY BLOOD SUGARS #4.5 mL 06/15/25 insulin lispro 100 unit/mL subcutaneous pen (Humalog KwikPen (U-100) Insulin) 10unit (0.1 mL) subcut TIDAC 1 month #15 mL 06/15/25 sennosides 8.6 mg tablet 17.2 mg (2 x 8.6 mg) PO BID PRN PRN constipation #0 tabs 06/15/25 Physical Exam Narrative Seen and examined Patient had left kidney biopsy today in the morning. wants to go home. Discussed with the voucher clerk. Discussed with the patient and regarding discharge instruction and medications. Physical exam General: Alert, Oriented x3, Cooperative HEENT: Atraumatic, PERRLA, EOMI, Normocephalic. Oral: No Gingival or Mucosal Lesions/ Ulcerations Neck: Right IJ dialysis removed. Supple, No JVD, Negative Carotid Bruits Chest wall/Lungs: Right chest wall tunneled dialysis catheter. Air entry diminished in bilateral lung bases. No crepitation/rhonchi Cardiovascular: Regular rate and rhythm, Normal S1,S2, No M/G/R Abdomen: Bowel Sounds Present, Soft, Non Tender, Non-Distended : Clear urine. No dysuria. No renal angle tenderness. No suprapubic tenderness. Extremities: No edema, Capillary Refill Less than 3 Seconds Skin: No bleeding or hematoma right IJ dialysis center. Left kidney biopsy siteposteriorly, dressing is good. No hematoma. Musculoskeletal: No Tenderness to Palpation of Joints or Extremities Neurological: Cranial nerves II-XII grossly intact, DTR 2+/4. No acute focal neurological deficit. Psych/Mental Status: Appropriate, normal Weight / BMI Weight Weight: 165 lb 12.602 oz Body Mass Index (BMI) 22.4 ABG / Lab / Microbiology Data 06/15/25 03:33 06/15/25 03:33 Laboratory: Laboratory Results - last 24 hr 06/14/25 13:50: Hep Bs Antigen Nonreactive 06/14/25 17:18: POC Glucose 344 H 06/14/25 20:57: POC Glucose 289 H 06/15/25 03:33: WBC 6.5, RBC 2.58 L, Hgb 8.2 L, Hct 25.1 L, MCV 97.3 H, MCH 31.8, MCHC 32.7, RDW Std Deviation 45.3 H, RDW Coeff of Rich 12.8, Plt Count 348,MPV 10.3, Immature Gran % (Auto) 0.500, Neut % (Auto) 59.3, Lymph % (Auto) 19.8,[place] % (Auto) 13.2 H, Eos % (Auto) 6.9 H, Baso % (Auto) 0.3, Absolute Neuts (auto) 3.9, Absolute Lymphs (auto) 1.29, Nucleated RBC % 0, Sodium 147 H, Potassium 4.7, Chloride 111 H, Carbon Dioxide 22.5, Anion Gap 13, BUN 57 H, Creatinine 4.01 H, Estim Creat Clear Calc 17.19 L, Est GFR (MDRD) Non-Af 15 L, BUN/Creatinine Ratio 14.2, Glucose 246 H, Calcium 9.0 06/15/25 10:53: POC Glucose 290 H Microbiology: Microbiology 06/05/25 12:10 Urine Catheter - Bolaños Urine Culture - Final Culture exhibits no growth. Radiography Diagnostic Testing: Radiology Impression Biopsy CT 06/15/25 09:00 IMPRESSION: Successful CT-guided left inferior pole renal biopsy. Reading Location: [place] [address] D/C Instructions Weight Bearing Status: Weight bearing as tolerated Call your doctor if you observe: Fever of 101 or Higher, Coldness, Increased Pain, Numbness or Tingling, Change in Color, Inability to urinate, Inability to have a bowel movement, Shortness of breath, Dizziness, Fainting spells, Swellingin the ankles, Chest pain, Prolonged hiccupping, Increased palpitations (irregular heartbeat) and Calf discomfort DC O2, CPAP, BIPAP Needs Home O2 Discharge instructions: No When: IN 2 WEEKS Meaningful Use Info Meaningful Use Meaningful Use Diagnoses (Choose all that apply): None applicable Discharge Plan Admission Admit Date/Time: 06/05/25 05:44 Primary Reason for Your Visit: JINA, etiology unclear Attending Provider: Fawad Bates Primary Care Provider: Briseyda Sinclair Consulting Providers: Tabby Zuniga; Richi Hope; Yohannes Santiago; Candy Vo; Tanika Bear Instructions Patient Instructions: RAD medical services assistant Instructions for Kidney Biopsy, RAD RN Procedural Sedation Discharge Orders/Prescriptions Prescriptions: New buspirone 10 mg tablet 10 mg PO TID 30 Days Qty: 90 0RF sennosides 8.6 mg tablet 17.2 mg PO BID PRN PRN (Reason: constipation) Qty: 0 0RF Rx Instructions: [id number]. 2 tablet twice daily as needed for constipation. insulin lispro [Humalog KwikPen Insulin] 100 unit/mL Insulin Pen 10 unit subcut TIDAC 30 Days Qty: 15 2RF Rx Instructions: Hold if glucose less than 120 mg/dl Continued cyanocobalamin (vitamin B-12) 5,000 mcg tablet,disintegrating 1,000 mcg PO DAILY ascorbic acid (vitamin C) 500 mg tablet 500 mg PO DAILY aspirin [Adult Low Dose Aspirin] 81 mg tablet,delayed release (DR/EC) 81 mg PO DAILY cholecalciferol (vitamin D3) 25 mcg (1,000 unit) tablet 25 mcg PO BID finasteride 5 mg tablet 5 mg PO QHS loratadine 10 mg tablet 10 mg PO QDAY isosorbide mononitrate 30 mg tablet extended release 24 hr 30 mg PO QHS amlodipine 5 mg tablet 5 mg PO QHS Patient Comments: PT TAKES AT BEDTIME famotidine 20 mg tablet 20 mg PO QHS insulin glargine U-300 conc [Toujeo SoloStar U-300 Insulin] 300 unit/mL (1.5 mL) insulin pen 36 unit subcut DAILY Qty: 4.5 5RF Rx Instructions: Hold if glucose less than 90 mg/dl (DME) lancets [OneTouch Delica Plus Lancet] 33 gauge misc See Rx Instructions .Route Qty: 100 0RF Rx Instructions: As directed Twice Daily to monitor blood glucose for DM II carvedilol 12.5 mg tablet 12.5 mg PO BID Qty: 180 3RF atorvastatin 80 mg tablet 80 mg PO QHS Qty: 90 3RF (DME) pen needle, diabetic [Comfort EZ Pen [place]] 32 gauge x 1/4 needle See Rx Instructions .Route Qty: 100 5RF Rx Instructions: once daily to administer insulin.. 6mm pen needle (DME) OneTouch Verio test strips Strip See Rx Instructions .ROUTE .MEDSUPPLY Qty: 100 11RF Rx Instructions: use as directed twice daily t monitor blood glucose for type 2 DM tamsulosin 0.4 mg capsule 0.4 mg PO QHS Qty: 90 3RF Held lisinopril 20 mg tablet 20 mg PO DAILY Qty: 90 3RF Hold Instructions: Hold for kidney failure. metformin 500 mg tablet 1,000 mg PO BID Qty: 360 3RF Hold Instructions: Hold for kidney failure glimepiride 4 mg tablet 4 mg PO BID Qty: 90 3RF Hold Instructions: Because of kidney failure prasugrel HCl [Effient] 10 mg tablet 10 mg PO QDAY Qty: 90 3RF Hold Instructions: Hold for 5 days. Discontinued magnesium glycinate 100 mg tablet 400 mg PO QHS Referrals / Follow Up: Yohannes Santiago MD [Med Staff - Consulting, Nephrology] - Within 1 Week Referral Note: Next hemodialysis on is as an outpatient Briseyda Sinclair MD [Primary Care Provider, Internal Medicine - [facility]] Disposition Disposition (needs filled in before D/C Order can be placed): Home, Self Care Charges/Coding Visit Charges Inpatient E&M: 88323 Disch Hosp >30min 06/15/25 1402 <Electronically signed by Fawad Bates MD> Cosigner Signature (if applicable): CC: Dr. Yohannes Santiago MD; Dr. Briseyda Sinclair MD; Dr. Fawad Bates MD~ Signed [facility] Work Phone: Evaluation noteThere may be information available, but it has not been provided by the sender.[facility] Work Phone: Evaluation note* Diagnosis Adhesive capsulitis of right shoulder- Primary Adhesive capsulitis of shoulder [facility] Diagnosis Adhesive capsulitis of right shoulder Adhesive capsulitis of shoulder [facility] Diagnosis Adhesive capsulitis of right shoulder Adhesive capsulitis of shoulder [facility] Diagnosis Adhesive capsulitis of right shoulder Adhesive capsulitis of shoulder [facility] Diagnosis Adhesive capsulitis of right shoulder Adhesive capsulitis of shoulder [facility] Diagnosis Onset Date Resolution Status Hyperglycemia resolved Lactic acidosis resolved Weakness resolved Atherosclerotic heart diseas e of [place] coronary artery without angina pectoris acute Cardiomyopathy, ischemic acu te Essential hypertension acute History of recent pneumonia acute Hypertriglyceridemia acute Presence of stent in coronary artery August, acute Type 2 diabetes mellitus acu te CKD (chronic kidney disease) stage 3, GFR 30-59 ml/min chronic Weakness resolved Atherosclerotic heart diseas e of [place] coronary artery without angina pectoris acute Bilateral carotid artery stenosis acute Essential hypertension acute Hemorrhagic cerebrovascular accident (CVA) acute History of recent pneumonia acute Hypertriglyceridemia acute Right carotid artery occlusion acute Type 2 diabetes mellitus acu te CKD (chronic kidney disease) stage 3, GFR 30-59 ml/min chronic [facility] Work Phone: Evaluation note* Diagnosis Onset Date Resolution Status Atherosclerotic heart diseas e of [place] coronary artery without angina pectoris acute Bilateral [...] ml/min chronic Atherosclerotic heart diseas e of [place] coronary artery without angina pectoris acute Cardiomyopathy, ischemic acu te Essential hypertension acute Presence of stent in coronary artery August, acute Pure hypercholesterolemia [place] [facility]ness [facility] Work Phone: Evaluation note* Diagnosis Onset [...] ml/min chronic Atherosclerotic heart diseas e of [place] coronary artery without angina pectoris acute Cardiomyopathy, ischemic acu te Essential hypertension acute Presence of stent in coronary artery August, acute Pure hypercholesterolemia ac [place] [facility]ness [facility] Work Phone: Evaluation note* Diagnosis Onset Date Resolution Status Atherosclerotic heart diseas e of [place] coronary artery without angina pectoris acute Bilateral carotid artery stenosis acute Essential hypertension acute Hemorrhagic cerebrovascular accident (CVA) acute Hypertriglyceridemia acute Multiple [place] infarcts [place] Presence of stent in coronary artery August, acute Pure hypercholesterolemia [place] Right carotid artery occlusion acute Type 2 diabetes mellitus acu te CKD (chronic kidney disease) stage 3, GFR 30-59 ml/min [facility] Work Phone: Evaluation note* Diagnosis Onset Date Resolution Status Multiple [place] infarcts [place] Right carotid artery occlusion acute Atherosclerotic heart diseas e of [place] coronary artery without angina pectoris acute Bilateral carotid artery stenosis acute Cardiomyopathy, ischemic acu te Hypertriglyceridemia acute Multiple [place] infarcts ac [place] Pure hypercholesterolemia [place] CKD (chronic kidney disease) stage 3, GFR 30-59 ml/min chronic Essential hypertension chron ic Type 2 diabetes mellitus chr onic Carotid artery disease chron ic CKD (chronic kidney disease) stage 3, GFR 30-59 ml/min chronic Coronary artery disease trim stencil [place] Dyslipidemia chronic Essential hypertension chron ic 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 chronic Presence of stent in coronary artery August, chronic Type 2 diabetes mellitus [facility] Work Phone: Evaluation note* Diagnosis Onset Date Resolution Status Carotid artery disease chron ic CKD (chronic kidney disease) stage 3, GFR 30-59 ml/min chronic Coronary artery disease trim [place] Dyslipidemia chronic Essential hypertension chron ic 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 chronic Presence of stent in coronary artery August, chronic Type 2 diabetes mellitus [facility] Work Phone: Evaluation note* Diagnosis Onset Date Resolution Status Acute sinusitis acute Atherosclerotic heart diseas e [place] coronary artery without angina pectoris acute Bilateral carotid artery stenosis acute Hemorrhagic cerebrovascular accident (CVA) acute Hypertriglyceridemia acute Multiple [place] infarcts [place] Right carotid artery occlusion acute CKD (chronic kidney disease) stage 3, GFR 30-59 ml/min chronic Coronary artery disease trim stencil [place] Dyslipidemia chronic 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 chronic Presence of stent in coronary artery August, chronic Type 2 diabetes mellitus chr onic Anemia acute History of colon polyps acut e Carotid artery disease chron [facility] Work Phone: Evaluation note* Diagnosis Cerebral aneurysm- Primary Cerebral aneurysm, nonruptured Cerebrovascular accident (CVA) due to stenosis of left carotid artery (HCC) [facility] TIA (transient ischemic attack)- Primary Unspecified transient cerebral ischemia Cerebrovascular accident (CVA) due to stenosis of left carotid artery (HCC) [facility]* Diagnosis TIA (transient ischemic attack)- Primary Unspecified transient cerebral ischemia Cerebrovascular accident (CVA) due to stenosis of left carotid artery (HCC) [facility] Diagnosis TIA (transient ischemic attack)- Primary Unspecified transient cerebral ischemia Cerebrovascular accident (CVA) due to stenosis of left carotid artery (HCC) [facility] Diagnosis TIA (transient ischemic attack)- Primary Unspecified transient cerebral ischemia Cerebrovascular accident (CVA) due to stenosis of left carotid artery (HCC) [facility]* Diagnosis Cerebral infarction due to unspecified occlusion or stenosis of left carotid arteries (HCC)- Primary [facility] Author Tabby Zuniga [facility] Note Date/Time June 05, 2025 6:04[facility] Medical Records Department [address] [place] [address] H&P Exam - Hospitalist 06/05/25 0542 MR#: [id number] Acct: [id number] Name: COLEMAN DAVIES Rep #:[id number] : 1950 74 From: Tabby Zuniga MD PCP: Dr. Briseyda Sinclair MD Status:ADM IN Location: [place] [address] HPI - General General Date of Admission: 06/05/25 Date of Service: 06/05/25 Chief Complaint: Intractable N/V HPI Narrative The patient is a 74 y/o M w/ PMHx: CKD stage III unclear subtype per previous GFR trending, GERD, Hx TIA/CVA, Hypothyroidism, HTN, HLD, Carotid disease, Former tobacco use, IDDM, CAD s/p PCI, [facility] with history of onset general fatigue, malaise with persistent nausea and emesis starting ~ 36 hours prior with poor recent oral intake with no abdominal pain or diarrhea not improving prompting eventual ED evaluation. Workup in the ED included T97.9, heart rate 88, BP 173/67, respiratory rate 16, 100% on room air, CBC with WC 10.5, 112, MCV94.4, platelet 285 with left shift, CMP with potassium 6.3 not noted to be hemolyzed, carbon oxide 11, anion gap 29, BUN/creatinine 92/8.74, GFR 6, [id number], troponin 116 with most recently noted troponin prior to this 03/29/25 39, acute abdominal series without acute findings, EKG with very slight T wave peaking but no other acute changes or evidence of ischemia. In the ED patient ministered 1 L normal saline, Zofran 4 mg IV x 1 as well as Kayexalate 15 mg p.o. x 1. ED discussed case with Nephrology. [facility] Medical History Cancer Alcohol use History of steroid therapy Back pain TIA (transient ischemic attack) Gastric reflux Shortness of breath on exertion Hypertension Leg cramps History of stress test History of echocardiogram History of Holter monitoring Diarrhea Lower urinary tract symptoms (LUTS) Acute urinary retention Hypothyroidism Lumbar radiculopathy, acute Near syncope Chest pain Wears glasses Insulin dependent diabetes mellitus High cholesterol Stroke/cerebrovascular accident Dietary restriction Former smoker Cardiology follow-up encounter History of [...] coronary artery (~08/28/01) Atherosclerotic heart disease of [place] coronary artery without angina pectoris Home Medications [...] 07/20/21 01/12/25 History mcg (1,000 unit) tablet lancets 33 gauge (OneTouch Delica #100 ea 05/04/24 Unk nown Rx Plus Lancet) atorvastatin 80 mg tablet 80 mg PO QHS CHOLESTEROL #90 08/10/24 01/11/25 Rx TABLETS carvedilol 12.5 mg tablet 12.5 mg PO BID HEART #180 ta bs 08/10/24 01/12/25 Rx lisinopril 20 mg tablet 20 mg PO DAILY BP #90 TABLET S 08/10/24 01/12/25 Rx metformin 500 mg tablet 1,000 mg (2 x 500 mg) PO BID BLOOD 08/10/24 01/12/25 Rx SUGARS #360 tabs pen needle, diabetic 32 gauge x #100 ea 01/04/25 Unkno wn Rx 09/19 (Comfort EZ Pen [place]) finasteride 5 mg tablet 5 mg PO QHS PROSTATE 5 Unknown History blood sugar diagnostic (OneTouch #100 ea 02/24/25 Unkn own Rx Verio test strips) glimepiride 4 mg tablet 4 mg PO BID BLOOD SUGARS #90 tabs 02/25/25 Unknown Rx tamsulosin 0.4 mg capsule 0.4 mg PO QHS PROSTATE #90 c aps 04/09/25 Unknown Rx insulin glargine U-300 conc 300 36 unit (0.12 mL) subc ut DAILY 04/19/25 Unknown Rx unit/mL (1.5 mL) subcutaneous pen BLOOD SUGARS #4.5 mL (Toujeo SoloStar U-300 Insulin) loratadine 10 mg tablet 10 mg PO QDAY ALLERGY Unknown History magnesium glycinate 100 mg (as 400 mg PO QDAY 05/12/25 Unknown History glycinate) tablet prasugrel HCl 10 mg tablet 10 mg PO QDAY HEART #90 tab s 05/18/25 Unknown Rx (Effient) amlodipine 5 mg tablet 5 mg PO QHS BP 05/28/25 Unkn own History famotidine 20 mg tablet 20 mg PO QHS GERD 05/28/25 U nknown History isosorbide mononitrate 30 mg 30 mg PO QHS HEART Unknown History tablet,extended release 24 hr magnesium glycinate 100 mg (as 400 mg PO QHS SUPPLEMEN T 05/28/25 Unknown History glycinate) tablet Allergy/AdvReac Type Severity Reaction Status Date / Time ticagrelor (From Brilinta) AdvReac Severe Other Verified 06/05/25 04:27 Family History Mother CAD (coronary artery disease) Diabetes Myocardial infarction, Onset Age: 48 Father Diabetes Breast cancer Brother Diabetes Cancer Brother Cancer Prostate Surgical History History of cardiac catheterization History of lumbar discectomy Hx of oral surgery History of coronary artery stent placement History [...] Does not use ibuprofen daily. ROS ROS Narrative Admission Review of Systems: CONSTITUTIONAL: No weight loss, fever, chills, + weakness or fatigue. HEENT: Eyes: No visual loss, blurred vision, double vision or yellow sclerae. Ears, Nose, Throat: No hearing loss, sneezing, congestion, runny nose or sore throat. SKIN: No rash or itching, lesions, wounds. CARDIOVASCULAR: No chest pain, chest pressure or chest discomfort, palpitations,edema, orthopnea, syncopal events. RESPIRATORY: No shortness of breath, cough or sputum, wheezing, hemoptysis. GASTROINTESTINAL: + anorexia, nausea, vomiting. No diarrhea, abdominal pain, melena, BRBPR. GENITOURINARY: No dysuria, frequency, urgency or retention. NEUROLOGICAL: No headache, dizziness, syncope, paralysis, ataxia, numbness or tingling in the extremities, focal weakness, change in bowel or bladder control,seizure. MUSCULOSKELETAL: + muscle, back pain, joint pain or stiffness. HEMATOLOGIC: + Chronic anemia, easy bleeding/bruising. LYMPHATICS: No enlarged nodes. No history of splenectomy. PSYCHIATRIC: No history of depression or anxiety. ENDOCRINOLOGIC: No reports of sweating, cold or heat intolerance. No polyuria orpolydipsia. ALLERGIES: + History of allergic rhinitis. Vital Signs Vital Signs Vital Signs: 06/05/25 04:17 06/05/25 05:29 Temperature 97.9 F 97.8 F Temperature Source Oral Pulse Rate 88 88 Respiratory Rate 16 15 Blood Pressure 173/67 H 162/74 H Blood Pressure Mean 102 103 Pulse Ox 100 100 Oxygen Delivery Method Room Air Weight Weight: 164 lb 0.383 oz Body Mass Index (BMI) 22.2 Physical Exam Narrative Physical Examination: General: Awake, alert, oriented x 3 and cooperative, seated upright in ED bed, fatigued but no acute distress. Skin: Normal color, normal turgor, no icterus, no cyanosis except occasional stage ecchymoses. HEENT: AT/NC, EOMI, PERRLA, dry MM, no carotid bruits or JVD noted. Lungs: Mildly diminished, greater bases, proper effort, no rales, ronchi or wheezing. Heart: Regular rate and rhythm; no gallop, rub audible. Abdomen: Soft, NTTP, ND, mildly hyperactive BS, no appreciated HSM. Extremities: No cyanosis, clubbing, or edema. Neurological: Patient awake, alert, oriented as noted, cognitive function intact; pupils equally reactive to light and accommodation, cranial nerves grossly normal, moving all 4 extremities, no focal deficits, strength moderatelyglobally decreased. Psychiatric: Affect appears mildly flat, fatigued, no acute evidence of depressive or anxiety feelings. Results Lab / Micro Data 06/05/25 04:30 06/05/25 04:30 Labs: Laboratory Results - last 24 hr 06/05/25 04:30: WBC 10.5, RBC 3.75 L, Hgb 12.0 L, Hct 35.4 L, MCV 94.4 H, MCH 32.0, MCHC 33.9, RDW Std Deviation 44.4 H, RDW Coeff of Rich 12.9, Plt Count 285,MPV 9.9, Immature Gran % (Auto) 0.500, Neut % (Auto) 82.3 H, Lymph % (Auto) 11.2L, [place] % (Auto) 5.6, Eos % (Auto) 0.2, Baso % (Auto) 0.2, Absolute Neuts (auto)8.6 H, Absolute Lymphs (auto) 1.17, Nucleated RBC % 0, Sodium 140, Potassium 6.3H*, Chloride 100, Carbon Dioxide 11.0 L, Anion Gap 29 H, BUN 92 H, Creatinine 8.74 H*, Estim Creat Clear Calc 7.80 L*, Est GFR (MDRD) Non-Af 6 L, BUN/Creatinine Ratio 10.5, Glucose 104 H, Calcium 10.5, Total Bilirubin 0.29, AST 26, ALT 24, Alkaline Phosphatase 84, Troponin T High Sens 116 H* D, Total Protein 6.8, Albumin 3.9, Globulin 2.9, Albumin/Globulin Ratio 1.3 Rhythm Strip Rhythm Strip: Sinus Rhythm Rate: 85 Ectopy: None Assessment & Plan Assessment/Plan (1) Acute renal failure: (2) Acute uremia: (3) Hyperkalemia, diminished renal excretion: PLAN: Plan The patient is a 74 y/o M w/ PMHx: CKD stage III unclear subtype per previous GFR trending, GERD, Hx TIA/CVA, Hypothyroidism, HTN, HLD, Carotid disease, Former tobacco use, IDDM, CAD s/p PCI, [facility] normocytic [facility] with history of onset general fatigue, malaise with persistent nausea and emesis starting over the last 36 hours with poor recent oral intake with no abdominal pain or diarrhea not improving prompting eventual ED evaluation. #1. Intractable nausea and emesis likely secondary to acute gastroenteritis: Will admit to PCU given #2 in the setting of #3 with also #4 as noted, Will continue aggressive hydration, if any onset of diarrhea certainly will obtain stool studies and C. difficile but at this point has not been an issue, will notstart antibiotics at this time given unclear source pending stool studies as maybe viral gastroenteritis. Anti-emetics, pain regimen PRN. #2. Acute kidney injury on CKD stage III unclear subtype per previous GFR trending/acute uremia: Secondary to significant GI losses and poor intake, admission BUN/Cr 92/8.74, GFR 6, prior baseline creatinine noted to be primarily1.3-1.6, most recently 03/29/2025 creatinine 1.63,. Will hydrate, hold nephrotoxic medications and repeat chemistry in AM. Will obtain renal ultrasound, FeNa assessment. Nephrology consulted. #3. Hyperkalemia: In the setting as noted of acute kidney injury secondary to significant GI losses, initiated on Kayexalate in the ED, will continue IV fluids, administer albuterol, insulin with dextrose, calcium and will continue to cycle BMP with repeat administration of hyperkalemic protocol as needed, willmaintain on telemetry. #4. Indeterminate cardiac enzyme of unclear significance: EKG in ED w/ sinus rhythm with no acute evidence of ischemia with mildly peaked T waves, troponin elevated initial 116, will maintain on a monitored bed, continue serial cardiac enzymes and EKGs. Obtain magnesium level upon admission. Will maintain on chemoprophylactic heparin, but if enzymes rise will transition to heparin drip. Continue medical management w/ asa, BB, statin w/ AM FLP. ECHO requested. If enzymes continue to trend upward will involve cardiology otherwise may be demandgiven his acute presentation with GI illness and acute kidney injury. At this point patient would be an appropriate for catheterization given his renal function. #5. CAD: Status post previous PCI, will continue aspirin, Effient, statin, Coreg, holding lisinopril given acute kidney injury. #6. Carotid disease: Will continue Effient, aspirin, statin, hypertensive regimen, diabetic regimen as noted. #7. Chronic normocytic anemia: Admission hemoglobin 12, MCV 94.4, baseline primarily 11-12, stable, continue to trend. #8. History of TIA/CVA: Remote history per records [facility]. Currently given CAD maintained on Effient, aspirin. Will continue statin, Coreg, holding lisinopril given acute kidney injury, continue diabetic regimen with adjustments as noted. #9. Diabetes mellitus type II: Hold oral home regimen, continue home insulin regimen, ADA diet, accu checks w/ ISS. #10. Hypertension: Holding all nephrotoxic medications, will continue isosorbide, Coreg, amlodipine with also as needed IV hydralazine. #11. Hyperlipidemia: Will continue patient on statin therapy, FLP in AM. #12. BPH with obstructive pathology: Will continue patient on Flomax regimen, evaluating for retention, UA pending per ED. #13. Former tobacco use: Encourage continued tobacco cessation. #14. Allergic rhinitis: Will continue patient on loratadine regimen. #15. GERD: IV PPI. #16. DVT prophylaxis: Heparin. #17. CODE status: Full Code. Charges/Coding Visit Charges Inpatient E&M: 75140 Init Hosp L3 06/05/25 0604 <Electronically signed by Tabby Zuniga MD> Cosigner Signature (if applicable): CC: Dr. Tabby Zuniga MD; Dr. Briseyda Sinclair MD~ Signed [facility] Work Phone: Hospital Discharge instructions Additional Instructions Plenty of fluids and rest. You are a little dehydrated. Tylenol as needed for body aches. Follow-up with your doctor if not improving.[facility] Work Phone: Hospital Discharge instructionsAmbulatory Orders* Neurology Location: None [facility] Work Phone: Hospital Discharge instructionsAdditional Instructions [facility]: [facility] Hospital Discharge instructionsAmbulatory Orders* Endocrinology Location: None [facility] Work Phone: Hospital Discharge instructionsAmbulatory Orders* Nutrition Referral Location: None Selected [facility] Work Phone: InstructionsNo information available.[facility] Work Phone: Instructions* Attachments The following attachments cannot be sent through Care Everywhere. * Brain Aneurysm (Tristanian) * Risk Factors for Stroke ([place]ristanian) * Angiography ([place]) [facility] Author Richi Hope [facility] Note Date/Time June 05, 2025 3:04pm [facility] Medical Records Department [address] [place] [id number] Progress Note - Hospitalist 06/05/25 0757 MR#: [id number] Acct: [id number] Name: COLEMAN DAVIES Rep #:[id number] : 1950 74 From: Richi Hope MD PCP: Dr. Briseyda Sinclair MD Status:ADM IN Location: ICU ICU01-1 Reason for Visit Chief Complaint: Intractable N/V Subjective Subjective Patient is a 74-year-old male who presented with intractable nausea and vomiting. Patient was found to have acute kidney injury with hyperkalemia admitted to monitored bed for subsequent treatment. Objective Data Objective Data Vital Signs: Vital Signs Temp Pulse Resp BP Pulse Ox O2 Del Method 96.3 F L 88 18 170/70 H 98 Room Air 06/05/25 07:01 06/05/25 07:01 06/05/25 07:01 06/05/25 07:01 06/05/25 07:01 06/05/25 07:30 Oxygen Delivery Method Room Air Weight: 75.8 kg Body Mass Index (BMI) 22.6 Intake & Output: Intake and Output for Last 24 Hours 06/03/25 06/04/25 06/05/25 23:59 23:59 23:59 Intake Total 1000 / 1000 Balance 1000 / 1000 Lab / Micro Data 06/05/25 04:30 06/05/25 08:08 Labs: Laboratory Results - last 24 hr 06/05/25 04:30: WBC 10.5, RBC 3.75 L, Hgb 12.0 L, Hct 35.4 L, MCV 94.4 H, MCH 32.0, MCHC 33.9, RDW Std Deviation 44.4 H, RDW Coeff of Rich 12.9, Plt Count 285,MPV 9.9, Immature Gran % (Auto) 0.500, Neut % (Auto) 82.3 H, Lymph % (Auto) 11.2L, [place] % (Auto) 5.6, Eos % (Auto) 0.2, Baso % (Auto) 0.2, Absolute Neuts (auto)8.6 H, Absolute Lymphs (auto) 1.17, Nucleated RBC % 0, Sodium 140, Potassium 6.3H*, Chloride 100, Carbon Dioxide 11.0 L, Anion Gap 29 H, BUN 92 H, Creatinine 8.74 H*, Estim Creat Clear Calc 7.80 L*, Est GFR (MDRD) Non-Af 6 L, BUN/Creatinine Ratio 10.5, Glucose 104 H, Calcium 10.5, Phosphorus 6.5 H, Magnesium 2.0, Total Bilirubin 0.29, AST 26, ALT 24, Alkaline Phosphatase 84, Troponin T High Sens 116 H* D, Total Protein 6.8, Albumin 3.9, Globulin 2.9, Albumin/Globulin Ratio 1.3 06/05/25 06:25: Troponin T Hi Sens 2 Hr 110 H* Radiography Diagnostic Testing: Radiology Impression Acute Abdomen Series 06/05/25 05:00 IMPRESSION: Unremarkable bowel gas pattern. Mild bilateral basilar atelectatic pulmonary changes. Reading Location: [place] [address] Rhythm Strip Rhythm Strip: Sinus Rhythm Rate: 85 Ectopy: None Physical Exam Narrative GENERAL: cooperative HEENT: Atraumatic; normocephalic EYES; Anicteric, Normal Conjunctiva NECK; supple, normal thyroid, RESPIRATORY: Diminished to auscultation CARDIOVASCULAR: Regular S1 S2, GI: soft, normoactive bowel sounds, : No Renal angle tenderness; EXTREMITIES: No edema, no clubbing, MUSCULOSKELETAL: no muscle wasting NEURO: Awake; no lateralizing signs. SKIN: No Rash PSYCH; Flat affect Assessment & Plan Assessment/Plan (1) Acute renal failure: (2) Acute uremia: (3) Hyperkalemia, diminished renal excretion: PLAN: Plan Patient is a 74-year-old male who presented with intractable nausea and vomiting. Patient was found to have acute kidney injury with hyperkalemia admitted to monitored bed for subsequent treatment. 1. Acute kidney injury superimposed on CKD stage III ? Patient creatinine from 03/29/2025 was 1.63 creatinine on admission was 8.74. Patient started on IV hydration with serial monitoring of BMPs ordered consult was also placed to nephrology 2. Hyperkalemia ? Secondary to patient JINA as well as concomitant use of lisinopril. Lisinoprilheld treatment of JINA initiated repeat BMP ordered to evaluate response to therapy ? Patient repeat potassium worsening. Additional Kayexalate 30 g given. Started patient on calcium gluconate insulin and dextrose. Patient also startedon bicarb drip decision made to transfer patient to intensive care unit with frequent BMPs ordered. Case was discussed with Dr. Maldonado with nephrology plan isto consider CRRT if patient does not respond to treatment described above 3. Metabolic acidosis ? Secondary to JINA do expect improvement with treatment of underlying etiology .?Started patient on bicarb drip due to worsening potassium levels 4. Acute gastroenteritis ? Plan is to treat symptomatically thought to be etiology of patient's JINA 5. Elevated troponin ? Secondary to demand ischemia from above patient presentation not consistent with ACS 6. Coronary artery disease ? With previous PCI patient is on guideline directed medical therapy 7. Diabetes mellitus type 2 ? Held oral agents did continue patient insulin regimen also placed on Accu- Cheks AC and at bedtime with sliding scale coverage 8. BPH with lower urinary obstructive symptoms - Patient treated with tamsulosin and finasteride 9. Essential hypertension ? Discontinue home meds except for lisinopril given patient presentation 10. Dyslipidemia ?Patient is on statin therapy, continued at home dose 11. DVT prophylaxis ? Subcu heparin Critical time spent in the patient's overall evaluation,decision-making process,review of diagnostic data, adjustment of management, discussion with other providers, nursing nursing and ancillary staff involved in patient's care documentation, 60 . Minutes Charges/Coding Procedures Hospitalists Procedures: 59504 Critical Care 1st Hr 06/05/25 0945 <Electronically signed by Richi Hope MD> Cosigner Signature (if applicable): CC: ~ Signed ADDENDUM by Dr. Richi Hope MD on 06/05/25 at 1504 Addendum Was transferred to the intensive care unit addition Kayexalate, sodium gluconate, insulin, albuterol and dextrose given. Repeat potassium came back at7.0. Bicarb is down to 8.2. Of note patient has been started on bicarb drip and case has been discussed with nephrology. Patient is making good urine. Additional Kayexalate given repeat BMP ordered. Patient remains on continuous telemetry with no arrhythmias. Case discussed with patient's questions answered. Total additional CC time; 35 min Procedures Hospitalists Procedures: [id number] Advncd Care Plan addl 30 Min 06/05/25 1504<Electronically signed by Richi Hope MD> Cosigner Signature (if applicable): cc: ~* Signed [facility] Work Phone: Progress note Author Richi Hope [facility] Note Date/Time June 06, 2025 10:22am [facility] Medical Records Department [address] [place] [address] Progress Note - Hospitalist 06/06/25 0752 MR#: [id number] Acct: [id number] Name: COLEMAN DAVIES Rep #:[id number] : 1950 74 From: Richi Hope MD PCP: Dr. Briseyda Sinclair MD Status:ADM IN Location: ICU ICU01-1 Reason for Visit Chief Complaint: Intractable N/V Subjective Subjective Patient was transferred to the intensive care unit from PCU given the significant elevation in her potassium level. Aggressive treatment with Kayexalate bicarb insulin dextrose as well as albuterol initiated. Patient potassium down to 4.6 this a.m. Creatinine and BUN however did not improve. Patient was also found to be acidotic and was on bicarb drip bicarb drip has since been weaned off Objective Data Objective Data Vital Signs: Vital Signs Temp Pulse Resp BP Pulse Ox O2 Del Method O2 Flow Rate 98.2 F 92 15 142/59 H 94 Nasal Cannula 2 06/06/25 04:00 06/06/25 06:00 06/06/25 06:00 06/06/25 06:00 06/06/25 06:00 06/06/25 06:00 06/06/25 06:00 Oxygen Flow Rate (L/min) 2 Oxygen Delivery Method Nasal Cannula Weight: 81.919 kg Body Mass Index (BMI) 24.4 Intake & Output: Intake and Output for Last 24 Hours 06/04/25 06/05/25 06/06/25 23:59 23:59 23:59 Intake Total 5750.00 / 5750.00 1062.5 / 1062.5 Output Total 125 / 195 145 / 145 Balance 5625.00 / 5555.00 917.5 / 917.5 Lab / Micro Data 06/06/25 04:10 06/06/25 04:10 Labs: Laboratory Results - last 24 hr 06/05/25 08:08: Sodium 140, Potassium 7.5 H*, Chloride 103, Carbon Dioxide 9.2 L*, Anion Gap 29 H, BUN 92 H, Creatinine 8.63 H*, Estim Creat Clear Calc 8.05 L*, Est GFR (MDRD) Non-Af 6 L, BUN/Creatinine Ratio 10.7, Glucose 95, Calcium 9.5,Troponin T Hi Sens 4Hr 111 H* 06/05/25 09:14: POC Glucose 90 06/05/25 10:38: POC Glucose 165 H 06/05/25 11:40: Sodium 138, Potassium 7.0 H*, Chloride 102, Carbon Dioxide 8.2 L*, Anion Gap 29 H, BUN 92 H, Creatinine 8.59 H*, Estim Creat Clear Calc 8.09 L*, Est GFR (MDRD) Non-Af 6 L, BUN/Creatinine Ratio 10.7, Glucose 145 H, Calcium 9.4 06/05/25 12:10: Urine Color Yellow, Urine Clarity Clear, Urine pH 6.0, Ur Specific [place] 1.015, Urine Protein 100 H, Urine Glucose (UA) 100 H, Urine Ketones 5 H, Urine Occult Blood 25 H, Urine Nitrite Negative, Urine Bilirubin Negative, Urine Urobilinogen Normal, Ur Leukocyte Esterase Negative, Urine RBC 0-5 SEEN, Urine WBC 0-5 SEEN, Ur Squamous Epith Cells 0 SEEN, Ur Renal Epithelial Cell 0-5 SEEN, Urine Bacteria 0 SEEN, Urine Mucus 0 SEEN, Ur Random Sodium 105, Urine Creatinine 38.30 L 06/05/25 15:55: Sodium 138, Potassium 6.4 H*, Chloride 98, Carbon Dioxide 10.7 L, Anion Gap 30 H, BUN 91 H, Creatinine 8.71 H*, Estim Creat Clear Calc 7.98 L*, Est GFR (MDRD) Non-Af 6 L, BUN/Creatinine Ratio 10.5, Glucose 253 H, Calcium 8.9, Phosphorus 7.5 H, Magnesium 1.8 06/05/25 20:31: Sodium 139, Potassium 5.1, Chloride 96 L, Carbon Dioxide 15.0 L,Anion Gap 27 H, BUN 92 H, Creatinine 8.66 H*, Estim Creat Clear Calc 8.02 L*, Est GFR (MDRD) Non-Af 6 L, BUN/Creatinine Ratio 10.6, Glucose 262 H, Serum Osmolality 336 H, Calcium 8.7, Total Creatine Kinase 200 H 06/05/25 21:20: POC Glucose 219 H 06/06/25 00:24: Sodium 138, Potassium 4.6, Chloride 95 L, Carbon Dioxide 18.1 L,Anion Gap 25 H, BUN 93 H, Creatinine 8.88 H*, Estim Creat Clear Calc 7.82 L*, Est GFR (MDRD) Non-Af 6 L, BUN/Creatinine Ratio 10.4, Glucose 278 H, Calcium 8.3 06/06/25 00:31: POC Glucose 246 H 06/06/25 04:10: WBC 8.7, RBC 2.84 L, Hgb 9.1 L, Hct 25.8 L, MCV 90.8, MCH 32.0, MCHC 35.3, RDW Std Deviation 43.1, RDW Coeff of Rich 13.0, Plt Count 225, MPV 10.0, Immature Gran % (Auto) 0.300, Neut % (Auto) 68.8, Lymph % (Auto) 13.7 L, [place] % (Auto) 16.1 H, Eos % (Auto) 0.9, Baso % (Auto) 0.2, Absolute Neuts (auto) 6.0, Absolute Lymphs (auto) 1.19, Nucleated RBC % 0, Sodium 138, Potassium 4.2, Chloride 94 L, Carbon Dioxide 22.4, Anion Gap 22 H, BUN 93 H, Creatinine 9.29 H*, Estim Creat Clear Calc 7.48 L*, Est GFR (MDRD) Non-Af 5 L, BUN/Creatinine Ratio 10.0, Glucose 293 H, Calcium 8.1, Phosphorus 6.4 H, Magnesium 1.6, Total Bilirubin 0.26, AST 20, ALT 19, Alkaline Phosphatase 55, Total Protein 4.6 L, Albumin 2.7 L, Globulin 1.9 L, Albumin/Globulin Ratio 1.4, Triglycerides 175, Cholesterol 109, LDL Cholesterol, Calc 43, VLDL Cholesterol 35, HDL Cholesterol 31 L, Cholesterol/HDL Ratio 3.54 06/06/25 06:07: POC Glucose 268 H ABG Data ABG results: ABG 06/05/25 20:48 Specimen Type JUDY Sample Site Not entered VBG pH 7.44 H VBG pO2 184 H VBG HCO3 17 L VBG Total CO2 18 L VBG O2 Sat (Calc) 100 H VBG Base Excess -7 L POC Mix VBG pCO2 Pt Tmp 24.8 L O2 Delivery Device Not entered Radiography Diagnostic Testing: Radiology Impression Renal Ultrasound 06/05/25 05:50 IMPRESSION: Right renal cyst. Reading Location: [id number] Echocardiogram 06/05/25 06:53 Interpretation Summary Normal LV size. The left ventricular ejection fraction is 60 %. Mild segmental systolic dysfunction (see wall motion). Septal [place] : Akinetic. Contrast injection was performed. Ordering Physician: Tabby Zuniga Referring Physician: Briseyda Sinclair M.D. Performed By: Veronica Oliva RDCS Rhythm Strip Rhythm Strip: Sinus Rhythm Rate: 85 Ectopy: None Physical Exam Narrative GENERAL: cooperative HEENT: Atraumatic; normocephalic EYES; Anicteric, Normal Conjunctiva NECK; supple, normal thyroid, RESPIRATORY: Diminished to auscultation with bibasilar rales CARDIOVASCULAR: Regular S1 S2, GI: soft, normoactive bowel sounds, : No Renal angle tenderness; EXTREMITIES: Edema of both upper and lower extremities MUSCULOSKELETAL: no muscle wasting NEURO: Awake; no lateralizing signs. SKIN: No Rash PSYCH; Flat affect Assessment & Plan Assessment/Plan (1) Acute renal failure: (2) Acute uremia: (3) Hyperkalemia, diminished renal excretion: PLAN: Plan Patient is a 74-year-old male who presented with intractable nausea and vomiting. Patient was found to have acute kidney injury with hyperkalemia admitted to monitored bed for subsequent treatment. 1. Acute kidney injury superimposed on CKD stage III ? Patient creatinine from 03/29/2025 was 1.63 creatinine on admission was 8.74. Patient started on IV hydration with serial monitoring of BMPs ordered consult was also placed to nephrology ? 06/06/2025; patient creatinine continues to worsen up to 9.29. Case discussed with Dr. Browning with nephrology if there is no improvement following adjustment of patient IV fluid plan will be for patient to undergo temporary dialysis 2. Hyperkalemia ? Secondary to patient JINA as well as concomitant use of lisinopril. Lisinoprilheld treatment of JINA initiated repeat BMP ordered to evaluate response to therapy ? Patient repeat potassium worsening. Additional Kayexalate 30 g given. Started patient on calcium gluconate insulin and dextrose. Patient also startedon bicarb drip decision made to transfer patient to intensive care unit with frequent BMPs ordered. Case was discussed with Dr. Maldonado with nephrology plan isto consider CRRT if patient does not respond to treatment described above ? 06/06/2025; patient hyperkalemia was treated aggressively potassium down to 4.2 3. Metabolic acidosis ? Secondary to JINA do expect improvement with treatment of underlying etiology .?Started patient on bicarb drip due to worsening potassium levels ? 06/06/2025; patient acidosis resolved discontinued bicarb drip 4. Acute gastroenteritis ? Plan is to treat symptomatically thought to be etiology of patient's JINA 5. Elevated troponin ? Secondary to demand ischemia from above patient presentation not consistent with ACS 6. Coronary artery disease ? With previous PCI patient is on guideline directed medical therapy 7. Diabetes mellitus type 2 ? Held oral agents did continue patient insulin regimen also placed on Accu- Cheks AC and at bedtime with sliding scale coverage 8. BPH with lower urinary obstructive symptoms - Patient treated with tamsulosin and finasteride 9. Essential hypertension ? Discontinue home meds except for lisinopril given patient presentation 10. Dyslipidemia ?Patient is on statin therapy, continued at home dose 11. Anemia ? Secondary to chronic disorder monitoring H&H and transfuse if patient becomes symptomatic or hemoglobin falls below 7 12. Hyperphosphatemia ? Secondary to patient impaired kidney function monitoring with daily phosphate levels 13. Hematuria ? Thought to be secondary to trauma from Bolaños catheter being pulled, case was discussed with nursing staff Bolaños catheter change in if hematuria does not improve plan will be to start CBI 14. DVT prophylaxis ? Subcu heparin ? Low threshold to discontinue subcu heparin if hematuria persist 15. Generalized edema ? Secondary to aggressive IV fluid resuscitation for patient's JINA. Patient kidney function however did not respond to fluids. Decision was therefore made to give 40 of Lasix given the extent edema and bibasilar crackles Charges/Coding Visit Charges Inpatient E&M: 88545 Subs Hosp L3 06/06/25 1022 <Electronically signed by Richi Hope MD> Cosigner Signature (if applicable): CC: ~ Signed [facility] Work Phone: Progress note Author Candy Vo [facility] Note Date/Time June 07, 2025 7:53pm [facility] Medical Records Department [address] [place] [address] Progress Note - Hospitalist 06/07/25 0711 MR#: [id number] Acct: [id number] Name: COLEMAN DAVIES Rep #:[id number] : 1950 74 From: Candy Vo DO PCP: Dr. Briseyda Sinclair MD Status:ADM IN Location: [place] [address]- Reason for Visit Chief Complaint: Intractable N/V Subjective Subjective No significant change in urine output. Plan is to start dialysis today. Discussed with patient and for need of temporary dialysis catheter and whatto expect. They are agreeable. We also did discuss that he may need a kidney biopsy. Patient does report that he is noticing his upper extremities feel somewhat swollen and tight. Objective Data Objective Data Vital Signs: Vital Signs Temp Pulse Resp BP Pulse Ox O2 Del Method O2 Flow Rate 97.4 F L 84 13 154/67 H 96 Room Air 2 06/07/25 05:00 06/07/25 07:00 06/07/25 07:00 06/07/25 07:00 06/07/25 07:00 06/07/25 07:00 06/07/25 05:00 Oxygen Flow Rate (L/min) 2 Oxygen Delivery Method Room Air Weight: 83.189 kg Body Mass Index (BMI) 24.8 Intake & Output: Intake and Output for Last 24 Hours 06/05/25 06/06/25 06/07/25 23:59 23:59 23:59 Intake Total 5750.00 / 5750.00 4277.5 / 4277.5 938.33 / 938.33 Output Total 125 / 195 220 / 220 150 / 150 Balance 5625.00 / 5555.00 4057.5 / 4057.5 788.33 / 788.33 Lab / Micro Data 06/07/25 05:10 06/07/25 05:10 Labs: Laboratory Results - last 24 hr 06/06/25 04:10: Phosphorus 6.4 H, Magnesium 1.6 06/06/25 12:28: POC Glucose 154 H 06/06/25 16:29: POC Glucose 119 H 06/06/25 21:41: POC Glucose 78 06/07/25 05:10: WBC 8.5, RBC 2.94 L, Hgb 9.4 L, Hct 26.7 L, MCV 90.8, MCH 32.0, MCHC 35.2, RDW Std Deviation 43.7, RDW Coeff of Rich 13.2, Plt Count 231, MPV 10.1, Immature Gran % (Auto) 0.400, Neut % (Auto) 71.0 H, Lymph % (Auto) 12.1 L,[place] % (Auto) 14.5 H, Eos % (Auto) 1.9, Baso % (Auto) 0.1, Absolute Neuts (auto)6.0, Absolute Lymphs (auto) 1.03, Nucleated RBC % 0, Sodium 140, Potassium 3.8, Chloride 94 L, Carbon Dioxide 24.3, Anion Gap 22 H, BUN 98 H, Creatinine 10.70 H*, Estim Creat Clear Calc 6.65 L*, Est GFR (MDRD) Non-Af 5 L, BUN/Creatinine Ratio 9.2 L, Glucose 62 L, Calcium 8.0, Magnesium 1.7, Total Bilirubin 0.24, AST22, ALT 20, Alkaline Phosphatase 53, Total Protein 4.7 L, Albumin 2.8 L, Globulin 1.9 L, Albumin/Globulin Ratio 1.5 06/07/25 06:46: POC Glucose 97 Rhythm Strip Rhythm Strip: Sinus Rhythm Rate: 85 Ectopy: None Physical Exam Const alert, oriented x3, no apparent distress and average body habitus; Negative for healthy appearing Constitutional Narrative: Older, white male, reclining in chair at the bedside, at bedside, currentlyappears comfortable, does not appear toxic HEENT head/scalp atraumatic and moist oral mucous membranes Head and Scalp: normocephalic Resp normal respiratory effort, no retractions, no use of accessory muscles and clearto auscultation bilaterally Auscultation: Negative for rales, rhonchi or wheezes Cardio regular rate, regular rhythm, S1 normal heart sound, S2 normal heart sound, no murmurs, no rub, no gallops and no clicks GI normal to inspection, nondistended, normoactive bowel sounds, soft to palpation and non-tender Narrative: Bolaños catheter in place with hematuria noted. Urine output is minimal Extremity Extremity Narrative: Trace to 1+ bilateral lower extremity edema, no cyanosis or clubbing, trace lower extremity edema Neuro moves all extremities and no focal motor deficits Neuro Narrative: Generalized weakness noted Psych affect normal Psych Narrative: Intermittently tearful with discussion Assessment & Plan Assessment/Plan (1) Hypoglycemia: (2) Acute metabolic acidosis: (3) Hyperkalemia, diminished renal excretion: (4) Acute renal failure: (5) Acute uremia: PLAN: Plan JINA on CKD stage IIIb - Baseline creatinine is between 1.4 and 1.6 as of March 2025 - Creatinine is now up to 10 - Renal ultrasound is unremarkable - At this point renal failure is unexplained I did not improve at all with IV fluids - Discontinue IV fluids - Plan is for temporary dialysis catheter placement and initiation of hemodialysis - Will likely need renal biopsy - Hold Effient-->d/w Dr. Garrison - Continue Bolaños and monitor for renal recovery Hyperkalemia - Resolved Acute hypoglycemia - Suspect related to insulin use and worsening renal function - Will back off on insulin to 22 units - Continue SSI - Continue to follow with Accu-Cheks Anion gap metabolic acidosis - Initially required some bicarb but since bicarb is normalized - Continue to monitor with BMP but should improve with dialysis - Anion gap should closed with dialysis Acute on chronic anemia - Down significantly from admission however has been getting quite a bit of fluids - No signs of acute drop at this time - Will continue to monitor - Baseline appears to be between 11 and 13 - Repeat CBC in a.m. CAD/carotid artery stenosis/essential hypertension/hyperlipidemia/history of TIA - No stents within the last 12 months - Effient on hold for potential renal biopsy --> discussed with cardiology - continue home aspirin - Continue home carvedilol - continue home amlodipine - Lisinopril on hold due to renal dysfunction - Continue isosorbide mononitrate - Follows with vascular and cardiology as an outpatient DM-2 - Hold metformin - Hold glimepiride - Continue insulin but reduced dose due to hypoglycemia likely related to decreased clearance with renal dysfunction checks as ordered - SSI GERD - Continue famotidine Seasonal allergies - Continue home loratadine 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 - Bolaños in place DVT prophylaxis - Continue subcu heparin CODE STATUS - Full code Charges/Coding Visit Charges Inpatient E&M: 91306 Subs Hosp L2 06/07/251952 <Electronically signed by Candy Vo DO> Cosigner Signature (if applicable): CC: ~ Signed [facility] Work Phone: Progress note Author Yohannes Santiago [facility] Note Date/Time June 07, 2025 10:58am [facility] Medical Records Department [address] [place] [address] Progress Note - Nephrology 06/07/25 1055 MR#: [id number] Acct: [id number] Name: COLEMAN DAVIES Rep #:[id number] : 1950 74 From: Yohannes doran MD PCP: Dr. Briseyda Sinclair MD Status:ADM IN Location: ICU ICU01-1 Subjective Subjective No new complaints today. Objective Data Objective Data Vital Signs: Vital Signs Temp Pulse Resp BP Pulse Ox O2 Del Method O2 Flow Rate 97.4 F L 84 13 154/67 H 96 Room Air 2 06/07/25 05:00 06/07/25 07:00 06/07/25 07:00 06/07/25 07:00 06/07/25 07:00 06/07/25 07:00 06/07/25 05:00 Oxygen Flow Rate (L/min) 2 Oxygen Delivery Method Room Air Weight: 83.189 kg Body Mass Index (BMI) 24.8 Intake & Output: Intake and Output for Last 24 Hours 06/05/25 06/06/25 06/07/25 23:59 23:59 23:59 Intake Total 5750.00 / 5750.00 4277.5 / 4277.5 1230.00 / 1230.00 Output Total 125 / 195 220 / 220 150 / 150 Balance 5625.00 / 5555.00 4057.5 / 4057.5 1080.00 / 1080.00 Lab / Micro Data 06/07/25 05:10 06/07/25 05:10 Labs: Laboratory Results - last 24 hr 06/06/25 12:28: POC Glucose 154 H 06/06/25 16:29: POC Glucose 119 H 06/06/25 21:41: POC Glucose 78 06/07/25 05:10: WBC 8.5, RBC 2.94 L, Hgb 9.4 L, Hct 26.7 L, MCV 90.8, MCH 32.0, MCHC 35.2, RDW Std Deviation 43.7, RDW Coeff of Rich 13.2, Plt Count 231, MPV 10.1, Immature Gran % (Auto) 0.400, Neut % (Auto) 71.0 H, Lymph % (Auto) 12.1 L,[place] % (Auto) 14.5 H, Eos % (Auto) 1.9, Baso % (Auto) 0.1, Absolute Neuts (auto)6.0, Absolute Lymphs (auto) 1.03, Nucleated RBC % 0, Sodium 140, Potassium 3.8, Chloride 94 L, Carbon Dioxide 24.3, Anion Gap 22 H, BUN 98 H, Creatinine 10.70 H*, Estim Creat Clear Calc 6.65 L*, Est GFR (MDRD) Non-Af 5 L, BUN/Creatinine Ratio 9.2 L, Glucose 62 L, Calcium 8.0, Magnesium 1.7, Total Bilirubin 0.24, AST22, ALT 20, Alkaline Phosphatase 53, Total Protein 4.7 L, Albumin 2.8 L, Globulin 1.9 L, Albumin/Globulin Ratio 1.5 06/07/25 06:46: POC Glucose 97 Micro: Microbiology 06/05/25 12:10 Urine Catheter - Bolaños Urine Culture - Final Culture exhibits no growth. Rhythm Strip Rhythm Strip: Sinus Rhythm Rate: 85 Ectopy: None Physical Exam Narrative Alert awake oriented x 3 no obvious distress no pallor no icterus no JVD s1s2 no murmurs lungs clear abdomen soft no organomegaly no edema no cyanosis bolaños + Assessment & Plan Assessment/Plan (1) Acute renal failure: (2) Hyperkalemia, diminished renal excretion: (3) Acute metabolic acidosis: (4) Essential hypertension: (5) Type 2 diabetes mellitus: QUALIFIERS: Diabetes mellitus halfway insulin use: without halfway use Diabetes mellitus complication status: with circulatory complication Diabetes mellitus complication detail: with other circulatory complications Qualified Code(s): E11.59 - Type 2 diabetes mellitus with other circulatory complications PLAN: Plan Assessment/Plan: The patient is a 74-year-old male with past history of CKD stage G3b, type 2 diabetes mellitus, hypertension, CAD status post PCI, PAD, stroke, hypothyroidism, BPH, iron deficiency anemia, and hyperlipidemia. Patient presented to hospital with 2-day history of intractable nausea/vomiting,anorexia and generalized weakness. Patient was found to have acute kidney injury on chronic kidney disease associated with hyperkalemia and severe metabolic acidosis. Nephrology is asked to the patient because of JINA, metabolic acidosis and hyperkalemia. Acute kidney injury on chronic kidney disease stage G3b. Baseline creatinine about 1.4-1.6 as of March 2025. Presented with 2 days of nausea. Found to have renal failure, worsening. Creatinine is up to 10. Initial urine analysis with protein Renal ultrasound without any hydronephrosis Was not particularly hypotensive. Denies any mikx-lpi-httczfq supplements. He started taking a probiotic due to diarrhea over the last 6 weeks or so. Unexplained renal failure. Did not improve with fluids. Will need renal replacement therapy. Discussed with Dr. Vo Dialysis catheter to be placed. Will start dialysis after. With respect to etiology, serologies have been sent. Most likely will need kidney biopsy. Reviewed medication list, he is on Effient. Apparently he had LAD stent about 24 years ago. This was in [place]. Sees button pusher Dr. Garrison here. Has not had any strokes recently. Will check with cardiology to see if it is safe to hold Effient for the kidney biopsy. Discussed with at bedside 06/07/25 1058 <Electronically signed by Yohannes Santiago MD> Cosigner Signature (if applicable): CC: ~ Signed [facility] Work Phone: Progress note Author Candy Vo [facility] Note Date/Time June 08, 2025 5:52pm [facility] Medical Records Department [address] [place] [address] Progress Note - Hospitalist 06/08/25 0750 MR#: [id number] Acct: [id number] Name: COLEMAN DAVIES Rep #:[id number] : 1950 74 From: Candy Vo DO PCP: Dr. Briseyda Sinclair MD Status:ADM IN Location: [place] [address] Reason for Visit Chief Complaint: Intractable N/V Subjective Subjective No overnight issues. Patient states he is tired. He is agreeable to kidney biopsy. We did discuss that we are holding his Effient and interventional radiology would like us to hold it for 7 days and that pushes his biopsy until Saturday. We did discuss the general overall plan for dialysis and nephrology. Objective Data Objective Data Vital Signs: Vital Signs Temp Pulse Resp BP Pulse Ox O2 Del Method O2 Flow Rate 98.2 F 88 16 161/69 H 93 Room Air 2 06/08/25 06:23 06/08/25 06:23 06/08/25 06:23 06/08/25 06:23 06/08/25 06:23 06/08/25 06:23 06/07/25 05:00 Oxygen Flow Rate (L/min) 2 Oxygen Delivery Method Room Air Weight: 84.2 kg Body Mass Index (BMI) 25.1 Intake & Output: Intake and Output for Last 24 Hours 06/06/25 06/07/25 06/08/25 23:59 23:59 23:59 Intake Total 4277.5 / 4277.5 1710.00 / 1710.00 Output Total 220 / 220 1150 / 1150 300 / 300 Balance 4057.5 / 4057.5 560.00 / 560.00 -300 / -300 Lab / Micro Data 06/08/25 05:11 06/08/25 05:11 Labs: Laboratory Results - last 24 hr 06/07/25 11:12: POC Glucose 133 H 06/07/25 17:06: POC Glucose 94 06/07/25 22:24: POC Glucose 153 H 06/08/25 05:11: WBC 5.8, RBC 3.00 L, Hgb 9.6 L, Hct 27.5 L, MCV 91.7, MCH 32.0, MCHC 34.9, RDW Std Deviation 42.7, RDW Coeff of Rich 12.9, Plt Count 220, MPV 10.4, Immature Gran % (Auto) 0.300, Neut % (Auto) 66.7, Lymph % (Auto) 12.7 L, [place] % (Auto) 15.0 H, Eos % (Auto) 5.0, Baso % (Auto) 0.3, Absolute Neuts (auto) 3.8, Absolute Lymphs (auto) 0.73 L, Nucleated RBC % 0, PT 13.4, INR 1.0, Sodium 140, Potassium 4.2, Chloride 98, Carbon Dioxide 23.2, Anion Gap 19 H, BUN 82 H, Creatinine 8.87 H*, Estim Creat Clear Calc 8.02 L*, Est GFR (MDRD) Non-Af 6 L, BUN/Creatinine Ratio 9.2 L, Glucose 93, Calcium 8.2 06/08/25 06:20: POC Glucose 95 Micro: Microbiology 06/05/25 12:10 Urine Catheter - Bolaños Urine Culture - Final Culture exhibits no growth. Radiography Diagnostic Testing: Radiology Impression Chest X-Ray 06/07/25 12:05 IMPRESSION: The tip of the right-sided central catheter is in the midportion of the superiorvena cava. Findings suggestive of mild degree of vascular congestion. Reading Location: [facility] Rhythm Strip Rhythm Strip: Sinus Rhythm Rate: 85 Ectopy: None Physical Exam Const alert, oriented x3, no apparent distress and average body habitus; Negative for healthy appearing Constitutional Narrative: Older, white male, lying in bed currently on dialysis, dialysis nurse at bedside,, at bedside, currently appears comfortable, does not appear toxic HEENT head/scalp atraumatic and moist oral mucous membranes Head and Scalp: normocephalic Neck Neck Narrative: Dialysis catheter in right neck with bandage in place Resp normal respiratory effort, no retractions, no use of accessory muscles and clearto auscultation bilaterally Auscultation: Negative for rales, rhonchi or wheezes Cardio regular rate, regular rhythm, S1 normal heart sound, S2 normal heart sound, no murmurs, no rub, no gallops and no clicks GI normal to inspection, nondistended, normoactive bowel sounds, soft to palpation and non-tender Narrative: Bolaños catheter in place with hematuria noted. Improved urine output Extremity Extremity Narrative: Edema is overall improved Neuro moves all extremities and no focal motor deficits Neuro Narrative: Generalized weakness noted Psych Psych Narrative: Less tearful today but still affect is flatter than likely normal but appropriate for the current situation Assessment & Plan Assessment/Plan (1) Hypoglycemia: (2) Acute metabolic acidosis: (3) Hyperkalemia, diminished renal excretion: (4) Acute renal failure: (5) Acute uremia: PLAN: Plan JINA on CKD stage IIIb - Baseline creatinine is between 1.4 and 1.6 as of March 2025 -Now on dialysis - Urine output seems to be improving some next-plan is for dialysis tomorrow then break with reevaluation for dialysis needs on Saturday -If he will need ongoing dialysis at that time will need to pursue a temporary dialysis catheter - Renal ultrasound is unremarkable -Renal biopsy for Saturday -Effient on hold okay per discussion with Dr. Garrison but will need help for 7days prior to biopsy - Plan is for temporary dialysis catheter placement and initiation of hemodialysis - Will likely need renal biopsy - Hold Effient-->d/w Dr. Garrison - Continue Bolaños and monitor for renal recovery Acute hypoglycemia - Hypoglycemia has resolved with a.m. blood sugar at 93. - Continue Lantus 22 units down from 36 units - Continue SSI - Continue to follow with Accu-Cheks Anion gap metabolic acidosis -Resolving with dialysis - Anion gap is improved and bicarb is in the normal range however patient likelystill acidotic Repeat dialysis today Acute on chronic anemia - Stable - No signs of acute drop at this time - Will continue to monitor - Baseline appears to be between 11 and 13 - Repeat CBC in a.m. CAD/carotid artery stenosis/essential hypertension/hyperlipidemia/history of TIA - No stents within the last 12 months - Effient on hold for renal biopsy --> discussed with cardiology - continue home aspirin - Continue home carvedilol - continue home amlodipine - Lisinopril on hold due to renal dysfunction - Continue isosorbide mononitrate - Follows with vascular and cardiology as an outpatient DM-2 - Hold metformin - Hold glimepiride -Continue insulin as ordered with reduced dose with improved blood sugars today - SSI GERD - Continue famotidine Seasonal allergies - Continue home loratadine 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 - Bolaños in place DVT prophylaxis - Continue subcu heparin CODE STATUS - Full code Charges/Coding Visit Charges Inpatient E&M: 90812 Subs Hosp L2 06/08/25 1752 <Electronically signed by Candy Vo DO> Cosigner Signature (if applicable): CC: ~ Signed [facility] Work Phone: Progress note Author Yohannes Santiago [facility] Note Date/Time June 08, 2025 12:51pm [facility] Medical Records Department [address] [place] [address] Progress Note - Nephrology 06/08/25 1250 MR#: [id number] Acct: [id number] Name: COLEMAN DAVIES Rep #:[id number] : 1950 74 From: Yohannes doran MD PCP: Dr. Briseyda Sinclair MD Status:ADM IN Location: [place] [address] Subjective Subjective seen on HD today Objective Data Objective Data Vital Signs: Vital Signs Temp Pulse Resp BP Pulse Ox O2 Del Method O2 Flow Rate 98.0 F 85 14 157/69 H 95 Room Air 2 06/08/25 11:30 06/08/25 11:30 06/08/25 11:30 06/08/25 11:30 06/08/25 11:30 06/08/25 11:30 06/07/25 05:00 Oxygen Flow Rate (L/min) 2 Oxygen Delivery Method Room Air Weight: 82 kg Body Mass Index (BMI) 24.5 Intake & Output: Intake and Output for Last 24 Hours 06/06/25 06/07/25 06/08/25 23:59 23:59 23:59 Intake Total 4277.5 / 4277.5 1710.00 / 1710.00 Output Total 220 / 220 1150 / 1150 2520 / 2520 Balance 4057.5 / 4057.5 560.00 / 560.00 -2520 / -2520 Lab / Micro Data 06/08/25 05:11 06/08/25 05:11 Labs: Laboratory Results - last 24 hr 06/07/25 17:06: POC Glucose 94 06/07/25 22:24: POC Glucose 153 H 06/08/25 05:11: WBC 5.8, RBC 3.00 L, Hgb 9.6 L, Hct 27.5 L, MCV 91.7, MCH 32.0, MCHC 34.9, RDW Std Deviation 42.7, RDW Coeff of Rich 12.9, Plt Count 220, MPV 10.4, Immature Gran % (Auto) 0.300, Neut % (Auto) 66.7, Lymph % (Auto) 12.7 L, [place] % (Auto) 15.0 H, Eos % (Auto) 5.0, Baso % (Auto) 0.3, Absolute Neuts (auto) 3.8, Absolute Lymphs (auto) 0.73 L, Nucleated RBC % 0, PT 13.4, INR 1.0, Sodium 140, Potassium 4.2, Chloride 98, Carbon Dioxide 23.2, Anion Gap 19 H, BUN 82 H, Creatinine 8.87 H*, Estim Creat Clear Calc 8.02 L*, Est GFR (MDRD) Non-Af 6 L, BUN/Creatinine Ratio 9.2 L, Glucose 93, Calcium 8.2 06/08/25 06:20: POC Glucose 95 06/08/25 11:23: POC Glucose 99 Micro: Microbiology 06/05/25 12:10 Urine Catheter - Bolaños Urine Culture - Final Culture exhibits no growth. 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 Patient presented to hospital with 2-day history of intractable nausea/vomiting,anorexia and generalized weakness. Patient was found to have acute kidney injury on chronic kidney disease associated with hyperkalemia and severe metabolic acidosis. Nephrology is asked to the patient because of JINA, metabolic acidosis and hyperkalemia. Acute kidney injury on chronic kidney disease stage G3b. Baseline creatinine about 1.4-1.6 as of March 2025. Presented with 2 days of nausea. Found to have renal failure, worsening. Creatinine is up to 10. Initial urine analysis with protein Renal ultrasound without any hydronephrosis Was not particularly hypotensive. Denies any ovoy-hsy-raefuky supplements. He started taking a probiotic due to diarrhea over the last 6 weeks or so. started HD 06/07/25 HD today. see orders dw Dr Vo. Ray is on hold. called and spoke to IR. [place] hold is one week. wont be able to get biopsy till next week likely. will see renal function recovers in the mean time dw family at bedside 06/08/25 1251 <Electronically signed by Yohannes Santiago MD> Cosigner Signature (if applicable): CC: ~ Signed [facility] Work Phone: Progress note Author Candy Vo [facility] Note Date/Time June 09, 2025 9:22pm [facility] Medical Records Department [address] [place] [address] Progress Note - Hospitalist 06/09/25728 MR#: [id number] Acct: [id number] Name: COLEMAN DAVIES Rep #:[id number] : 1950 74 From: Candy Vo DO PCP: Dr. Briseyda Sinclair MD Status:ADM IN Location: [place] [address] Reason for Visit Chief Complaint: Intractable N/V Subjective Subjective No issues overnight. Dialysis catheter is somewhat temperamental. Urine outputseems to be improving so I am questioning whether or not he has having some renal recovery. Nephrology agrees. Reevaluate tomorrow and if we feel that he will need to tunneled catheter will consult general surgery. Objective Data Objective Data Vital Signs: Vital Signs Temp Pulse Resp BP Pulse Ox O2 Del Method O2 Flow Rate 98.3 F 85 16 155/71 H 95 Room Air 2 06/09/25 03:53 06/09/25 03:53 06/09/25 03:53 06/09/25 03:53 06/09/25 03:53 06/09/25 03:53 06/07/25 05:00 Oxygen Flow Rate (L/min) 2 Oxygen Delivery Method Room Air Weight: 84.6 kg Body Mass Index (BMI) 25.2 Intake & Output: Intake and Output for Last 24 Hours 06/07/25 06/08/25 06/09/25 23:59 23:59 23:59 Intake Total 1710.00 / 1710.00 Output Total 1150 / 1150 3070 / 3070 1625 / 1625 Balance 560.00 / 560.00 -3070 / -3070 -1625 / -1625 Lab / Micro Data 06/09/25 05:19 06/09/25 05:19 Labs: Laboratory Results - last 24 hr 06/07/25 05:10: Double Strand DNA Ab <1 06/08/25 11:23: POC Glucose 99 06/08/25 16:25: POC Glucose 240 H 06/08/25 21:46: POC Glucose 266 H 06/09/25 05:19: WBC 4.7, RBC 3.12 L, Hgb 10.1 L, Hct 28.9 L, MCV 92.6, MCH 32.4 H, MCHC 34.9, RDW Std Deviation 43.1, RDW Coeff of Rich 12.7, Plt Count 227, MPV 10.3, Immature Gran % (Auto) 0.200, Neut % (Auto) 64.2, Lymph % (Auto) 13.4 L, [place] % (Auto) 17.6 H, Eos % (Auto) 4.2, Baso % (Auto) 0.4, Absolute Neuts (auto) 3.0, Absolute Lymphs (auto) 0.63 L, Nucleated RBC % 0, Sodium 139, Potassium 4.4, Chloride 99, Carbon Dioxide 23.7, Anion Gap 16 H, BUN 79 H, Creatinine 7.96H*, Estim Creat Clear Calc 8.94 L*, Est GFR (MDRD) Non-Af 7 L, BUN/Creatinine Ratio 9.9 L, Glucose 199 H, Calcium 8.4 06/09/25 06:18: POC Glucose 184 H Micro: Microbiology 06/05/25 12:10 Urine Catheter - Bolaños Urine Culture - Final Culture exhibits no growth. Rhythm Strip Rhythm Strip: Sinus Rhythm Rate: 85 Ectopy: None Physical Exam Const alert, oriented x3, no apparent distress and average body habitus; Negative for healthy appearing Constitutional Narrative: Older, white male, lying in bed currently on dialysis, dialysis nurse at bedside, currently appears comfortable, does not appear toxic HEENT head/scalp atraumatic and moist oral mucous membranes HEENT Narrative: Mallampati 3, no thrush Head and Scalp: normocephalic Resp normal respiratory effort, no retractions, no use of accessory muscles and clearto auscultation bilaterally Auscultation: Negative for rales, rhonchi or wheezes Cardio regular rate, regular rhythm, S1 normal heart sound, S2 normal heart sound, no murmurs, no rub, no gallops and no clicks GI normal to inspection, nondistended, normoactive bowel sounds, soft to palpation and non-tender Narrative: Urine output seems to be improving significantly and urine is clear without any signs of hematuria Extremity no clubbing, cyanosis or edema Extremity Narrative: Edema has resolved, pedal and radial pulses are 2+ Neuro moves all extremities and no focal motor deficits Neuro Narrative: Generalized weakness noted Psych affect normal Psych Narrative: Not tearful today, patient seems to be accepting this much more readily, was actually jovial today and joking intermittently. Very pleasant Assessment & Plan Assessment/Plan (1) Hypoglycemia: (2) Acute metabolic acidosis: (3) Hyperkalemia, diminished renal excretion: (4) Acute renal failure: (5) Acute uremia: PLAN: Plan JINA on CKD stage IIIb - Baseline creatinine is between 1.4 and 1.6 as of March 2025 - Today's day 3 of dialysis--> no dialysis tomorrow and will reassess - Plan is to assess for tunneled catheter need tomorrow - Renal ultrasound is unremarkable -Renal biopsy for Saturday if renal function is not recovering -Effient on hold okay per discussion with Dr. Garrison but will need help for 7days prior to biopsy - Will likely need renal biopsy - Hold Effient-->d/w Dr. Garrison - Continue Bolaños and monitor for renal recovery - Serologies thus far unremarkable - Nephrology following-appreciate input Acute hypoglycemia - Hypoglycemia has resolved with a.m. blood sugar at 199 - Will increase Lantus as blood sugars are starting to recover about that back on dialysis - Continue SSI - Continue to follow with Accu-Cheks Anion gap metabolic acidosis -Resolving with dialysis--> gap is only 16 - Anion gap is improved and bicarb is in the normal range however patient likelystill acidotic - Repeat dialysis today Acute on chronic anemia - Stable - No signs of acute drop at this time - Will continue to monitor - Baseline appears to be between 11 and 13 - Repeat CBC in a.m. CAD/carotid artery stenosis/essential hypertension/hyperlipidemia/history of TIA - No stents within the last 12 months - Effient on hold for renal biopsy --> discussed with cardiology - continue home aspirin - Continue home carvedilol - continue home amlodipine - Lisinopril on hold due to renal dysfunction - Continue isosorbide mononitrate - Follows with vascular and cardiology as an outpatient DM-2 - Hold metformin - Hold glimepiride -Continue insulin as ordered with reduced dose with improved blood sugars today - SSI GERD - Continue famotidine Seasonal allergies - Continue home loratadine 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 - Bolaños in place DVT prophylaxis - Continue subcu heparin CODE STATUS - Full code Charges/Coding Visit Charges Inpatient E&M: 87497 Subs Hosp L2 06/09/252121 <Electronically signed by Candy Vo DO> Cosigner Signature (if applicable): CC: ~ Signed [facility] Work Phone: Progress note Author Yohannes Santiago [facility] Note Date/Time June 09, 2025 10:56am [facility] Medical Records Department [address] [place] [address] Progress Note - Nephrology 06/09/25 1055 MR#: [id number] Acct: [id number] Name: COLEMAN DAVIES Rep #:[id number] : 1950 74 From: Yohannes doran MD PCP: Dr. Briseyda Sinclair MD Status:ADM IN Location: [place] [address] Subjective Subjective Urine output is good. Objective Data Objective Data Vital Signs: Vital Signs Temp Pulse Resp BP Pulse Ox O2 Del Method O2 Flow Rate 98.4 F 80 14 181/70 H 95 Room Air 2 06/09/25 08:15 06/09/25 10:15 06/09/25 10:15 06/09/25 10:15 06/09/25 10:15 06/09/25 10:15 06/07/25 05:00 Oxygen Flow Rate (L/min) 2 Oxygen Delivery Method Room Air Weight: 84.6 kg Body Mass Index (BMI) 25.2 Intake & Output: Intake and Output for Last 24 Hours 06/07/25 06/08/25 06/09/25 23:59 23:59 23:59 Intake Total 1710.00 / 1710.00 Output Total 1150 / 1150 3070 / 3070 1625 / 1625 Balance 560.00 / 560.00 -3070 / -3070 -1625 / -1625 Lab / Micro Data 06/09/25 05:19 06/09/25 05:19 Labs: Laboratory Results - last 24 hr 06/07/25 05:10: Double Strand DNA Ab <1 06/08/25 11:23: POC Glucose 99 06/08/25 16:25: POC Glucose 240 H 06/08/25 21:46: POC Glucose 266 H 06/09/25 05:19: WBC 4.7, RBC 3.12 L, Hgb 10.1 L, Hct 28.9 L, MCV 92.6, MCH 32.4 H, MCHC 34.9, RDW Std Deviation 43.1, RDW Coeff of Rich 12.7, Plt Count 227, MPV 10.3, Immature Gran % (Auto) 0.200, Neut % (Auto) 64.2, Lymph % (Auto) 13.4 L, [place] % (Auto) 17.6 H, Eos % (Auto) 4.2, Baso % (Auto) 0.4, Absolute Neuts (auto) 3.0, Absolute Lymphs (auto) 0.63 L, Nucleated RBC % 0, Sodium 139, Potassium 4.4, Chloride 99, Carbon Dioxide 23.7, Anion Gap 16 H, BUN 79 H, Creatinine 7.96H*, Estim Creat Clear Calc 8.94 L*, Est GFR (MDRD) Non-Af 7 L, BUN/Creatinine Ratio 9.9 L, Glucose 199 H, Calcium 8.4 06/09/25 06:18: POC Glucose 184 H Micro: Microbiology 06/05/25 12:10 Urine Catheter - Bolaños Urine Culture - Final Culture exhibits no growth. 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 Patient presented to hospital with 2-day history of intractable nausea/vomiting,anorexia and generalized weakness. Patient was found to have acute kidney injury on chronic kidney disease associated with hyperkalemia and severe metabolic acidosis. Nephrology is asked to the patient because of JINA, metabolic acidosis and hyperkalemia. Acute kidney injury on chronic kidney disease stage G3b. Baseline creatinine about 1.4-1.6 as of March 2025. Presented with 2 days of nausea. Found to have renal failure, worsening. Creatinine is up to 10. Initial urine analysis with protein Renal ultrasound without any hydronephrosis Was not particularly hypotensive. Denies any shke-hbz-gtndcid supplements. He started taking a probiotic due to diarrhea over the last 6 weeks or so. started HD 06/07/25 HD today. see orders Urine output has picked up. Will hold dialysis after today and monitor labs. If renal function gets better, he will not need any further intervention. If renal function does not improve, he will need kidney biopsy. Tentatively tunneled dialysis catheter also. Discussed with family at bedside. Renal diet for now. 06/09/25 1056 <Electronically signed by Yohannes Santiago MD> Cosigner Signature (if applicable): CC: ~ Signed [facility] Work Phone: Progress note Author Candy Vo [facility] Note Date/Time June 10, 2025 3:15pm [facility] Medical Records Department [address] [place] [address] Progress Note - Hospitalist 06/10/25 0738 MR#: [id number] Acct: [id number] Name: COLEMAN DAVIES Rep #:[id number] : 1950 74 From: Candy Vo DO PCP: Dr. Briseyda Sinclair MD Status:ADM IN Location: [place] [address] Reason for Visit Chief Complaint: Intractable N/V Subjective Subjective No issues overnight. Patient is feeling well today. It does appear that he is having signs of renal recovery with improved urine output. Objective Data Objective Data Vital Signs: Vital Signs Temp Pulse Resp BP Pulse Ox O2 Del Method O2 Flow Rate 98.2 F 82 16 161/73 H 94 Room Air 2 06/10/25 05:17 06/10/25 05:17 06/10/25 05:17 06/10/25 05:17 06/10/25 05:17 06/10/25 05:17 06/07/25 05:00 Oxygen Flow Rate (L/min) 2 Oxygen Delivery Method Room Air Weight: 84.5 kg Body Mass Index (BMI) 25.2 Intake & Output: Intake and Output for Last 24 Hours 06/08/25 06/09/25 06/10/25 23:59 23:59 23:59 Intake Total 480 / 480 Output Total 3070 / 3070 3725 / 3725 1850 / 1850 Balance -3070 / -3070 -3245 / -3245 -1850 / -1850 Lab / Micro Data 06/09/25 05:19 06/10/25 05:13 Labs: Laboratory Results - last 24 hr 06/07/25 05:10: Total Protein (PEP) 4.4 L, Globulin 2.1 L, IgG 303 L, IgA 196, IgM 21, Immunofixation Screen Comment, Albumin (NATHAN) 2.3 L, Albumin/Globulin (NATHAN) 1.1, Urasm-5-Ghnutodyt NATHAN 0.2, [place]-3-Qqvdmecdc NATHAN 0.9, Beta-Globulins (NATHAN) 0.7, Gamma Globulins (NATHAN) 0.3 L, NATHAN M-Guillermo Not Observed, NATHAN Comments Comment, c-ANCA Antibody <1:20, Atypical p-ANCA <1:20, p-ANCA Antibody <1:20, Glomerular Base Memb Ab < 0.2, Complement C3 130 06/09/25 12:22: POC Glucose 128 H 06/09/25 16:19: POC Glucose 265 H 06/09/25 22:17: POC Glucose 334 H 06/10/25 05:13: Sodium 141, Potassium 4.1, Chloride 103, Carbon Dioxide 21.5, Anion Gap 16 H, BUN 72 H, Creatinine 6.79 H, Estim Creat Clear Calc 10.48 L, Est GFR (MDRD) Non-Af 8 L, BUN/Creatinine Ratio 10.6, Glucose 258 H, Calcium 8.5 06/10/25 06:36: POC Glucose 230 H Micro: Microbiology 06/05/25 12:10 Urine Catheter - Bolaños Urine Culture - Final Culture exhibits no growth. Rhythm Strip Rhythm Strip: Sinus Rhythm Rate: 85 Ectopy: None Physical Exam Const alert, oriented x3, no apparent distress, average body habitus and well nourished; Negative for healthy appearing Constitutional Narrative: Older, white male, sitting up in bed, watching television, currently appears comfortable, does not appear toxic HEENT head/scalp atraumatic and moist oral mucous membranes Head and Scalp: normocephalic Neck Neck Narrative: Dialysis catheter in right neck with bandage in place Resp normal respiratory effort, no retractions, no use of accessory muscles and clearto auscultation bilaterally Auscultation: Negative for rales, rhonchi or wheezes Cardio regular rate, regular rhythm, S1 normal heart sound, S2 normal heart sound, no murmurs, no rub, no gallops and no clicks GI normal to inspection, nondistended, normoactive bowel sounds, soft to palpation and non-tender Narrative: Significantly improved urine output and seems to post ATN diuresis appearing type urine Extremity no clubbing, cyanosis or edema Extremity Narrative: 2+ pedal and radial pulses Neuro moves all extremities and no focal motor deficits Neuro Narrative: Generalized weakness noted Psych affect normal Psych Narrative: Very pleasant, seems much happier today Assessment & Plan Assessment/Plan (1) Hypoglycemia: (2) Acute metabolic acidosis: (3) Hyperkalemia, diminished renal excretion: (4) Acute renal failure: (5) Acute uremia: PLAN: Plan JINA on CKD stage IIIb - Baseline creatinine is between 1.4 and 1.6 as of March 2025 - No dialysis for today - Urine output seems to be improving -Renal biopsy for Saturday if renal function is not recovering -Effient on hold okay per discussion with Dr. Garrison but will need help for 7days prior to biopsy - Continue Bolaños and monitor for renal recovery - Serologies were unremarkable - Nephrology following-appreciate input - Will decide on ongoing needs in the next 24 hours Anion gap metabolic acidosis - Much improved and is improving with improved renal function Acute on chronic anemia - Stable - No signs of acute drop at this time - Will continue to monitor - Baseline appears to be between 11 and 13 - Repeat CBC in a.m. CAD/carotid artery stenosis/essential hypertension/hyperlipidemia/history of TIA - No stents within the last 12 months - Effient on hold for renal biopsy --> discussed with cardiology - continue home aspirin - Continue home carvedilol - continue home amlodipine - Lisinopril on hold due to renal dysfunction - Continue isosorbide mononitrate - Follows with vascular and cardiology as an outpatient - BP is overall improved DM-2 - Hold metformin - Hold glimepiride - Blood sugars now trending up again with ongoing dialysis - Will increase back to home dose of basal insulin and uptitrate his sliding scale to high dose with fasting blood sugars greater than 200 this morning - SSI GERD - Continue famotidine Seasonal allergies - Continue home loratadine 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 - Bolaños in place DVT prophylaxis - Continue subcu heparin CODE STATUS - Full code Charges/Coding Visit Charges Inpatient E&M: 50523 Subs Hosp L2 06/10/25 1515 <Electronically signed by Candy Vo DO> Cosigner Signature (if applicable): CC: ~ Signed [facility] Work Phone: Progress note Author Yohannes Santiago [facility] Note Date/Time June 10, 2025 4:43pm [facility] Medical Records Department [address] [place] [id number] Progress Note - Nephrology 06/10/25 1642 MR#: [id number] Acct: [id number] Name: COLEMAN DAVIES Rep #:[id number] : 1950 74 From: Yohannes doran MD PCP: Dr. Briseyda Sinclair MD Status:ADM IN Location: [place] [address] Subjective Subjective no new complaints Objective Data Objective Data Vital Signs: Vital Signs Temp Pulse Resp BP Pulse Ox O2 Del Method O2 Flow Rate 97.8 F 85 16 129/62 H 94 Room Air 2 06/10/25 10:28 06/10/25 10:28 06/10/25 10:28 06/10/25 10:28 06/10/25 10:28 06/10/25 10:06/07/25 05:00 Oxygen Flow Rate (L/min) 2 Oxygen Delivery Method Room Air Weight: 84.5 kg Body Mass Index (BMI) 25.2 Intake & Output: Intake and Output for Last 24 Hours 06/08/25 06/09/25 06/10/25 23:59 23:59 23:59 Intake Total 480 / 480 Output Total 3070 / 3070 3725 / 3725 1850 / 1850 Balance -3070 / -3070 -3245 / -3245 -1850 / -1850 Lab / Micro Data 06/09/25 05:19 06/10/25 05:13 Labs: Laboratory Results - last 24 hr 06/07/25 05:10: Total Protein (PEP) 4.4 L, Globulin 2.1 L, IgG 303 L, IgA 196, IgM 21, Immunofixation Screen Comment, Albumin (NATHAN) 2.3 L, Albumin/Globulin (NATHAN) 1.1, Zjczj-1-Pkdadgvnb NATHAN 0.2, Dtptv-3-Vamcsnuru NATHAN 0.9, Beta-Globulins (NATHAN) 0.7, Gamma Globulins (NATHAN) 0.3 L, NATHAN M-Guillermo Not Observed, NATHAN Comments Comment, c-ANCA Antibody <1:20, Atypical p-ANCA <1:20, p-ANCA Antibody <1:20, Glomerular Base Memb Ab < 0.2, Complement C3 130 06/09/25 16:19: POC Glucose 265 H 06/09/25 22:17: POC Glucose 334 H 06/10/25 05:13: Sodium 141, Potassium 4.1, Chloride 103, Carbon Dioxide 21.5, Anion Gap 16 H, BUN 72 H, Creatinine 6.79 H, Estim Creat Clear Calc 10.48 L, Est GFR (MDRD) Non-Af 8 L, BUN/Creatinine Ratio 10.6, Glucose 258 H, Calcium 8.5 06/10/25 06:36: POC Glucose 230 H 06/10/25 11:23: POC Glucose 272 H Micro: Microbiology 06/05/25 12:10 Urine Catheter - Bolaños Urine Culture - Final Culture exhibits no growth. 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 Patient presented to hospital with 2-day history of intractable nausea/vomiting,anorexia and generalized weakness. Patient was found to have acute kidney injury on chronic kidney disease associated with hyperkalemia and severe metabolic acidosis. Nephrology is asked to the patient because of JINA, metabolic acidosis and hyperkalemia. Acute kidney injury on chronic kidney disease stage G3b. Baseline creatinine about 1.4-1.6 as of March 2025. Presented with 2 days of nausea. Found to have renal failure, worsening. Creatinine is up to 10. Initial urine analysis with protein Renal ultrasound without any hydronephrosis Was not particularly hypotensive. Denies any bvbr-kei-hbpwshs supplements. He started taking a probiotic due to diarrhea over the last 6 weeks or so. started HD 06/07/25 HD today. see orders Urine output has picked up. Will hold dialysis after today and monitor labs. If renal function gets better, he will not need any further intervention. If renal function does not improve, he will need kidney biopsy. Tentatively tunneled dialysis catheter also. Discussed with family at bedside. Renal diet for now. 06/10/25. urine output is very good. 1.8 L. cr ok. lytes are ok. serologies are negative. possible its all ATN. repeat labs in am. further decision on HD depending on labs tomorrow. dw family bedside 06/10/25 7520 <Electronically signed by Yohannes Santiago MD> Cosigner Signature (if applicable): CC: ~ Signed [facility] Work Phone: Progress note Author Fawad Bates [facility] Note Date/Time June 11, 2025 3:44pm [facility] Medical Records Department [address] [address] Progress Note - Hospitalist 06/11/25914 MR#: [id number] Acct: [id number] Name: COLEMAN DAVIES Rep #:[id number] : 1950 74 From: Fawad Hall PCP: Dr. Briseyda Sinclair MD Status:ADM IN Location: [place] [address] Reason for Visit Chief Complaint: Intractable N/V Objective Data Objective Data Vital Signs: Vital Signs Temp Pulse Resp BP Pulse Ox O2 Del Method O2 Flow Rate 36.8 F L 81 18 156/69 H 96 Room Air 2 06/10/25 20:48 06/10/25 20:48 06/10/25 20:48 06/10/25 20:48 06/10/25 20:48 06/11/25 07:48 06/07/25 05:00 Oxygen Flow Rate (L/min) 2 Oxygen Delivery Method Room Air Weight: 178 lb 9.191 oz Body Mass Index (BMI) 24.2 Intake & Output: Intake and Output for Last 24 Hours 06/09/25 06/10/25 06/11/25 23:59 23:59 23:59 Intake Total 480 / 480 Output Total 3725 / 3725 5500 / 5500 500 / 500 Balance -3245 / -3245 -5500 / -5500 -500 / -500 Lab / Micro Data 06/11/25 04:43 06/11/25 04:43 Labs: Laboratory Results - last 24 hr 06/10/25 11:23: POC Glucose 272 H 06/10/25 16:41: POC Glucose 332 H 06/10/25 20:55: POC Glucose 199 H 06/11/25 04:43: WBC 6.0, RBC 2.79 L, Hgb 8.9 L, Hct 25.4 L, MCV 91.0, MCH 31.9, MCHC 35.0, RDW Std Deviation 41.8, RDW Coeff of Rich 12.7, Plt Count 252, MPV 10.0, Immature Gran % (Auto) 0.200, Neut % (Auto) 59.8, Lymph % (Auto) 17.4 L, [place] % (Auto) 15.4 H, Eos % (Auto) 6.9 H, Baso % (Auto) 0.3, Absolute Neuts (auto) 3.6, Absolute Lymphs (auto) 1.04, Nucleated RBC % 0, Sodium 143, Potassium 3.8, Chloride 104, Carbon Dioxide 21.5, Anion Gap 17 H, BUN 90 H, Creatinine 7.70 H*, Estim Creat Clear Calc 9.24 L*, Est GFR (MDRD) Non-Af 7 L, BUN/Creatinine Ratio 11.7, Glucose 160 H, Calcium 8.3 06/11/25 07:44: POC Glucose 167 H Micro: Microbiology 06/05/25 12:10 Urine Catheter - Bolaños Urine Culture - Final Culture exhibits no growth. Rhythm Strip Rhythm Strip: Sinus Rhythm Rate: 85 Ectopy: None Physical Exam Narrative Seen and examined Talked to the . Patient has history of CAD status post stent and a stroke in the past. Had SC/cardiac stent in 2000. Has a stroke with residual aphasia/mild language difficulties in understanding and writing. Wants to go home. Had hematuria on first day of admission. Physical exam General: Alert, Oriented x3, Cooperative HEENT: Atraumatic, PERRLA, EOMI, Normocephalic. Oral: No Gingival or Mucosal Lesions/ Ulcerations Neck: Supple, No JVD, Negative Carotid Bruits Chest wall/Lungs: Air entry diminished in bilateral lung bases. No crepitation/rhonchi Cardiovascular: Regular rate and rhythm, Normal S1,S2, No M/G/R Abdomen: Bowel Sounds Present, Soft, Non Tender, Non-Distended : Bolaños catheter. Clear urine. No dysuria. No renal angle tenderness. No suprapubic tenderness. Extremities: No edema, Capillary Refill Less than 3 Seconds Skin: No rashes, No breakdown Musculoskeletal: No Tenderness to Palpation of Joints or Extremities Neurological: Cranial nerves II-XII grossly intact, DTR 2+/4. No acute focal neurological deficit. Psych/Mental Status: Mild frustrated Assessment & Plan Assessment/Plan (1) Hypoglycemia: (2) Acute metabolic acidosis: (3) Hyperkalemia, diminished renal excretion: (4) Acute renal failure: (5) Acute uremia: PLAN: Plan 74-year-old gentleman was admitted with intractable nausea and vomiting and found to have JINA with hyperkalemia, admitted on the monitored bed. Required further transfer to ICU for acute hyperkalemia and that downgraded to PCU JINA on CKD stage IIIb - Baseline creatinine is between 1.4 and 1.6 as of March 2025 - Urine output seems to be improving -Renal biopsy for Saturday if renal function is not recovering -Effient on hold okay per discussion with Dr. Garrison but will need help for 7days prior to biopsy - Continue Bolaños and monitor for renal recovery - Serologies were unremarkable - Nephrology following-appreciate input - Will decide on ongoing needs in the next 24 hours 06/11: On admission patient creatinine was 8.74, creatinine 10.7 and then fluctuates, today 7.70. BUN fluctuates between 70-90. [employer] Professor report reviewed. Patient urine output is good. Hemodialysis today. Serologies are negative. Plan for kidney biopsy on Saturday. Likely tentative discharge on Saturday. Anion gap metabolic acidosis - Much improved and is improving with improved renal function Acute on chronic anemia - Stable - No signs of acute drop at this time - Will continue to monitor - Baseline appears to be between 11 and 13 - 06/11 hemoglobin 8.9 decreased from 12.0. His baseline hemoglobin is about 12 in November 2024. Not on any scheduled anticoagulant. Only on baby aspirin. CAD/carotid artery stenosis/essential hypertension/hyperlipidemia/history of TIA - No stents within the last 12 months - Effient on hold for renal biopsy --> discussed with cardiology - continue home aspirin - Continue home carvedilol - continue home amlodipine - Lisinopril on hold due to renal dysfunction - Continue isosorbide mononitrate - Follows with vascular and cardiology as an outpatient - BP is overall improved DM-2 - Hold metformin - Hold glimepiride - Blood sugars now trending up again with ongoing dialysis - Will increase back to home dose of basal insulin and uptitrate his sliding scale to high dose with fasting blood sugars greater than 200 this morning - SSI GERD - Continue famotidine Seasonal allergies - Continue home loratadine 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 - Bolaños in place DVT prophylaxis - Continue subcu heparin CODE STATUS - Full code Charges/Coding Visit Charges Inpatient E&M: 40782 Subs Hosp L2 06/11/25 1543 <Electronically signed by Fawad Bates MD> Cosigner Signature (if applicable): CC: ~ Signed [facility] Work Phone: Progress note Author Yohannes Santiago [facility] Note Date/Time June 11, 2025 2:23pm [facility] Medical Records Department [address] [place] [address] [place] [address] Progress Note - Nephrology 06/11/25 1422 MR#: [id number] Acct: [id number] Name: COLEMAN DAVIES Rep #:[id number] 1950 74 From: Yohannes doran MD PCP: Dr. Briseyda Sinclair MD Status:ADM IN Location: [place] [address] Subjective Subjective good urine output. cr higher. HD today Objective Data Objective Data Vital Signs: Vital Signs Temp Pulse Resp BP Pulse Ox O2 Del Method O2 Flow Rate 98.2 F 87 18 129/67 H 95 Room Air 2 06/11/25 13:55 06/11/25 13:55 06/11/25 13:55 06/11/25 13:55 06/11/25 13:55 06/11/25 13:55 06/07/25 05:00 Oxygen Flow Rate (L/min) 2 Oxygen Delivery Method Room Air Weight: 81 kg Body Mass Index (BMI) 24.2 Intake & Output: Intake and Output for Last 24 Hours 06/09/25 06/10/25 06/11/25 23:59 23:59 23:59 Intake Total 480 / 480 360 / 360 Output Total 3725 / 3725 5500 / 5500 1400 / 1400 Balance -3245 / -3245 -5500 / -5500 -1040 / -1040 Lab / Micro Data 06/11/25 04:43 06/11/25 04:43 Labs: Laboratory Results - last 24 hr 06/10/25 16:41: POC Glucose 332 H 06/10/25 20:55: POC Glucose 199 H 06/11/25 04:43: WBC 6.0, RBC 2.79 L, Hgb 8.9 L, Hct 25.4 L, MCV 91.0, MCH 31.9, MCHC 35.0, RDW Std Deviation 41.8, RDW Coeff of Rich 12.7, Plt Count 252, MPV 10.0, Immature Gran % (Auto) 0.200, Neut % (Auto) 59.8, Lymph % (Auto) 17.4 L, [place] % (Auto) 15.4 H, Eos % (Auto) 6.9 H, Baso % (Auto) 0.3, Absolute Neuts (auto) 3.6, Absolute Lymphs (auto) 1.04, Nucleated RBC % 0, Sodium 143, Potassium 3.8, Chloride 104, Carbon Dioxide 21.5, Anion Gap 17 H, BUN 90 H, Creatinine 7.70 H*, Estim Creat Clear Calc 9.24 L*, Est GFR (MDRD) Non-Af 7 L, BUN/Creatinine Ratio 11.7, Glucose 160 H, Calcium 8.3 06/11/25 07:44: POC Glucose 167 H Micro: Microbiology 06/05/25 12:10 Urine Catheter - Bolaños Urine Culture - Final Culture exhibits no growth. 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 Patient presented to hospital with 2-day history of intractable nausea/vomiting,anorexia and generalized weakness. Patient was found to have acute kidney injury on chronic kidney disease associated with hyperkalemia and severe metabolic acidosis. Nephrology is asked to the patient because of JINA, metabolic acidosis and hyperkalemia. Acute kidney injury on chronic kidney disease stage G3b. Baseline creatinine about 1.4-1.6 as of March 2025. Presented with 2 days of nausea. Found to have renal failure, worsening. Creatinine is up to 10. Initial urine analysis with protein Renal ultrasound without any hydronephrosis Was not particularly hypotensive. Denies any wwpm-bcd-[id number] supplements. He started taking a probiotic due to diarrhea over the last 6 weeks or so. started HD 06/07/25 HD today. see orders Urine output has picked up. Will hold dialysis after today and monitor labs. If renal function gets better, he will not need any further intervention. If renal function does not improve, he will need kidney biopsy. Tentatively tunneled dialysis catheter also. Discussed with family at bedside. Renal diet for now. 06/10/25. urine output is very good. 1.8 L. cr ok. lytes are ok. serologies are negative. possible its all ATN. repeat labs in am. further decision on HD depending on labs tomorrow. dw family bedside 06/11/25. Cr higher. kind of surprising since his urine output is pretty good. HDtoday. serologies are all negative. will plan for biopsy on saturday. likely TDC on saturday. will dw hospitalist 06/11/25 1423 <Electronically signed by Yohannes Santiago MD> Cosigner Signature (if applicable): CC: ~ Signed [facility] Work Phone: Progress note Author Fawad Bates [facility] Note Date/Time June 12, 2025 12:50pm [facility] Medical Records Department [address] [place] [id number] Progress Note - Hospitalist 06/12/25 1240 MR#: [id number] Acct: [id number] Name: COLEMAN DAVIES Rep #:[id number] 1950 74 From: Fawad Hall PCP: Dr. Briseyda Sinclair MD Status:ADM IN Location: [place] [address] Reason for Visit Chief Complaint: Intractable N/V Objective Data Objective Data Vital Signs: Vital Signs Temp Pulse Resp BP Pulse Ox O2 Del Method O2 Flow Rate 97.6 F L 82 18 127/63 H 95 Room Air 2 06/12/25 09:35 06/12/25 09:35 06/12/25 09:35 06/12/25 09:35 06/12/25 09:35 06/12/25 10:00 06/07/25 05:00 Oxygen Flow Rate (L/min) 2 Oxygen Delivery Method Room Air Weight: 179 lb 10.828 oz Body Mass Index (BMI) 24.3 Intake & Output: Intake and Output for Last 24 Hours 09/25/25 09/26/25 09/27/25 23:59 23:59 23:59 Intake Total 600 / 600 240 / 240 Output Total 5500 / 5500 2450 / 2450 700 / 700 Balance -5500 / -5500 -1850 / -1850 -460 / -460 Lab / Micro Data 06/12/25 06:47 06/12/25 06:47 Labs: Laboratory Results - last 24 hr 06/11/25 14:06: POC Glucose 199 H 06/11/25 16:33: POC Glucose 324 H 06/11/25 22:17: POC Glucose 367 H 06/12/25 06:23: POC Glucose 117 H 06/12/25 06:47: WBC 6.1, RBC 2.67 L, Hgb 8.4 L, Hct 24.9 L, MCV 93.3, MCH 31.5, MCHC 33.7, RDW Std Deviation 43.2, RDW Coeff of Rich 12.6, Plt Count 277, MPV 10.2, Immature Gran % (Auto) 0.500, Neut % (Auto) 58.0, Lymph % (Auto) 17.9 L, [place] % (Auto) 16.9 H, Eos % (Auto) 6.4 H, Baso % (Auto) 0.3, Absolute Neuts (auto) 3.5, Absolute Lymphs (auto) 1.09, Nucleated RBC % 0, Sodium 146 H, Potassium 3.9, Chloride 109 H, Carbon Dioxide 21.9, Anion Gap 15, BUN 66 H, Creatinine 5.58 H, Estim Creat Clear Calc 12.75 L, Est GFR (MDRD) Non-Af 10 L, BUN/Creatinine Ratio 11.8, Glucose 121 H, Calcium 8.4 06/12/25 11:45: POC Glucose 332 H Micro: Microbiology 06/05/25 12:10 Urine Catheter - Bolaños Urine Culture - Final Culture exhibits no growth. Rhythm Strip Rhythm Strip: Sinus Rhythm Rate: 85 Ectopy: None Physical Exam Narrative Seen and examined No acute issues. Mild anxiety sometimes gets irritable. I talked to the . Patient has history of CAD status post stent and a stroke in the past. Had SC/cardiac stent in 2000. Has a stroke with residual aphasia/mild language difficulties in understanding and writing. Wants to go home. Had hematuria on first day of admission. Physical exam General: Alert, Oriented x3, Cooperative HEENT: Atraumatic, PERRLA, EOMI, Normocephalic. Oral: No Gingival or Mucosal Lesions/ Ulcerations Neck: Supple, No JVD, Negative Carotid Bruits Chest wall/Lungs: Air entry diminished in bilateral lung bases. No crepitation/rhonchi Cardiovascular: Regular rate and rhythm, Normal S1,S2, No M/G/R Abdomen: Bowel Sounds Present, Soft, Non Tender, Non-Distended : Bolaños catheter. Clear urine. No dysuria. No renal angle tenderness. No suprapubic tenderness. Extremities: No edema, Capillary Refill Less than 3 Seconds Skin: No rashes, No breakdown Musculoskeletal: No Tenderness to Palpation of Joints or Extremities Neurological: Cranial nerves II-XII grossly intact, DTR 2+/4. No acute focal neurological deficit. Psych/Mental Status: Mild frustrated Assessment & Plan Assessment/Plan (1) Hypoglycemia: (2) Acute metabolic acidosis: (3) Hyperkalemia, diminished renal excretion: (4) Acute renal failure: (5) Acute uremia: PLAN: Plan 74-year-old gentleman was admitted with intractable nausea and vomiting and found to have JINA with hyperkalemia, admitted on the monitored bed. Required further transfer to ICU for acute hyperkalemia and that downgraded to PCU JINA on CKD stage IIIb - Baseline creatinine is between 1.4 and 1.6 as of March 2025 - Urine output seems to be improving -Renal biopsy for Saturday if renal function is not recovering -Effient on hold okay per discussion with Dr. Garrison but will need help for 7days prior to biopsy - Continue Bolaños and monitor for renal recovery - Serologies were unremarkable - Nephrology following-appreciate input - Will decide on ongoing needs in the next 24 hours 06/11: On admission patient creatinine was 8.74, creatinine 10.7 and then fluctuates, today 7.70. BUN fluctuates between 70-90. [employer] Professor report reviewed. Patient urine output is good. Hemodialysis today. Serologies are negative. Plan for kidney biopsy on Saturday. Likely tentative discharge on Saturday. 06/12: Patient had about 2500 mL of urine output. No significant fluid removal on dialysis here yesterday but mainly for electrolyte support. Discussed with the voucher clerk we will surgery. Plan for tunneled dialysis catheter and renalbiopsy on Saturday informed by the patient and his . Surgery consulted for tunneled dialysis catheter. Anion gap metabolic acidosis - Much improved and is improving with improved renal function Acute on chronic anemia - Stable - No signs of acute drop at this time - Will continue to monitor - Baseline appears to be between 11 and 13 - 06/11 hemoglobin 8.9 decreased from 12.0. His baseline hemoglobin is about 12 in November 2024. Not on any scheduled anticoagulant. Only on baby aspirin. 06/12: H&H 8.4/24.9%. CAD/carotid artery stenosis/essential hypertension/hyperlipidemia/history of TIA - No stents within the last 12 months - Effient on hold for renal biopsy --> discussed with cardiology - continue home aspirin - Continue home carvedilol - continue home amlodipine - Lisinopril on hold due to renal dysfunction - Continue isosorbide mononitrate - Follows with vascular and cardiology as an outpatient - BP is overall improved 06/05; blood pressure is good DM-2 - Hold metformin - Hold glimepiride - SSI 06/12: Blood sugar is variable 117 and then 332. Humalog insulin added. 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 CODE STATUS - Full code Charges/Coding Visit Charges Inpatient E&M: 89409 Subs Hosp L2 06/12/25 1250 <Electronically signed by Fawad Bates MD> Cosigner Signature (if applicable): CC: ~ Signed [facility] Work Phone: Progress note Author Luis Alberto Oro [facility] Note Date/Time June 12, 2025 5:21pm [facility] Medical Records Department [address] [place] [address] Progress Note - Nephrology 06/12/258 MR#: [id number] Acct: [id number] Name: COLEMAN DAVIES Rep #:[id number] : 1950 74 From: Luis Alberto Oro MD PCP: Dr. Briseyda Sinclair MD Status:ADM IN Location: [place] [address] Subjective Subjective feels well no new complaints making urine Objective Data Objective Data Vital Signs: Vital Signs Temp Pulse Resp BP Pulse Ox O2 Del Method O2 Flow Rate 97.7 F L 80 18 153/70 H 96 Room Air 2 06/12/25 15:20 06/12/25 15:20 06/12/25 15:20 06/12/25 15:20 06/12/25 15:20 06/12/25 15:20 06/07/25 05:00 Oxygen Flow Rate (L/min) 2 Oxygen Delivery Method Room Air Weight: 81.5 kg Body Mass Index (BMI) 24.3 Intake & Output: Intake and Output for Last 24 Hours 06/10/25 06/11/25 06/12/25 23:59 23:59 23:59 Intake Total 600 / 600 240 / 240 Output Total 5500 / 5500 2450 / 2450 700 / 700 Balance -5500 / -5500 -1850 / -1850 -460 / -460 Lab / Micro Data 06/12/25 06:47 06/12/25 06:47 Labs: Laboratory Results - last 24 hr 06/11/25 22:17: POC Glucose 367 H 06/12/25 06:23: POC Glucose 117 H 06/12/25 06:47: WBC 6.1, RBC 2.67 L, Hgb 8.4 L, Hct 24.9 L, MCV 93.3, MCH 31.5, MCHC 33.7, RDW Std Deviation 43.2, RDW Coeff of Rich 12.6, Plt Count 277, MPV 10.2, Immature Gran % (Auto) 0.500, Neut % (Auto) 58.0, Lymph % (Auto) 17.9 L, [place] % (Auto) 16.9 H, Eos % (Auto) 6.4 H, Baso % (Auto) 0.3, Absolute Neuts (auto) 3.5, Absolute Lymphs (auto) 1.09, Nucleated RBC % 0, Sodium 146 H, Potassium 3.9, Chloride 109 H, Carbon Dioxide 21.9, Anion Gap 15, BUN 66 H, Creatinine 5.58 H, Estim Creat Clear Calc 12.75 L, Est GFR (MDRD) Non-Af 10 L, BUN/Creatinine Ratio 11.8, Glucose 121 H, Calcium 8.4 06/12/25 11:45: POC Glucose 332 H 06/12/25 16:36: POC Glucose 325 H Micro: Microbiology 06/05/25 12:10 Urine Catheter - Bolaños Urine Culture - Final Culture exhibits no growth. 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 Patient presented to hospital with 2-day history of intractable nausea/vomiting,anorexia and generalized weakness. Patient was found to have acute kidney injury on chronic kidney disease associated with hyperkalemia and severe metabolic acidosis. Nephrology is asked to the patient because of JINA, metabolic acidosis and hyperkalemia. Acute kidney injury on chronic kidney disease stage G3b. Baseline creatinine about 1.4-1.6 as of March 2025. Presented with 2 days of nausea. Found to have renal failure, worsening. Creatinine is up to 10. Initial urine analysis with protein Renal ultrasound without any hydronephrosis Was not particularly hypotensive. Denies any cyik-qaj-smeabpp supplements. He started taking a probiotic due to diarrhea over the last 6 weeks or so. started HD 06/07/25 HD today. see orders Urine output has picked up. Will hold dialysis after today and monitor labs. If renal function gets better, he will not need any further intervention. If renal function does not improve, he will need kidney biopsy. Tentatively tunneled dialysis catheter also. Discussed with family at bedside. Renal diet for now. 06/10/25. urine output is very good. 1.8 L. cr ok. lytes are ok. serologies are negative. possible its all ATN. repeat labs in am. further decision on HD depending on labs tomorrow. dw family bedside 06/11/25. Cr higher. kind of surprising since his urine output is pretty good. HDto. serologies are all negative. will plan for biopsy on saturday. likely TDC on saturday. will dw hospitalist 06/12/25 -volume, electrolytes ok today -plan on renal biopsy on saturday along with TDC -continue with HD MWF for now 06/12/25 1721 <Electronically signed by Luis Alberto Oro MD> Cosigner Signature (if applicable): CC: ~ Signed [facility] Work Phone: Progress note Author Fawad Bates [facility] Note Date/Time June 13, 2025 11:45am [facility] Medical Records Department [address] [facility] [place] [address] Progress Note - Hospitalist 06/13/25 1142 MR#: [id number] Acct: [id number] Name: ANTHONYCOLEMAN JOSEPH Rep #:[id number] : 1950 74 From: Fawad Hall PCP: Dr. Briseyda Sinclair MD Status:ADM IN Location: [place] [address] Reason for Visit Chief Complaint: Intractable N/V Objective Data Objective Data Vital Signs: Vital Signs Temp Pulse Resp BP Pulse Ox O2 Del Method O2 Flow Rate 97.9 F 83 18 128/73 H 99 Room Air 2 06/13/25 08:55 06/13/25 08:55 06/13/25 08:55 06/13/25 08:55 06/13/25 08:55 06/13/25 08:55 06/07/25 05:00 Oxygen Flow Rate (L/min) 2 Oxygen Delivery Method Room Air Weight: 162 lb 4.163 oz Body Mass Index (BMI) 22.0 Intake & Output: Intake and Output for Last 24 Hours 06/11/25 06/12/25 06/13/25 23:59 23:59 23:59 Intake Total 600 / 600 480 / 480 Output Total 2450 / 2450 1200 / 1900 1300 / 1300 Balance -1850 / -1850 -720 / -1420 -1300 / -1300 Lab / Micro Data 06/12/25 06:47 06/13/25 05:23 Labs: Laboratory Results - last 24 hr 06/12/25 11:45: POC Glucose 332 H 06/12/25 16:36: POC Glucose 325 H 06/12/25 21:18: POC Glucose 201 H 06/13/25 05:23: PT 14.1, INR 1.1, Sodium 148 H, Potassium 3.9, Chloride 112 H, Carbon Dioxide 22.0, Anion Gap 14, BUN 72 H, Creatinine 6.16 H, Estim Creat Clear Calc 10.95 L, Est GFR (MDRD) Non-Af 9 L, BUN/Creatinine Ratio 11.7, Glucose 108 H, Calcium 8.4 06/13/25 07:40: POC Glucose 168 H Micro: Microbiology 06/05/25 12:10 Urine Catheter - Bolaños Urine Culture - Final Culture exhibits no growth. Rhythm Strip Rhythm Strip: Sinus Rhythm Rate: 85 Ectopy: None Physical Exam Narrative Seen and examined No acute issues. Mild anxiety controlled/getting better on BuSpar. Discussed with the . Urine output is good. Bolañso catheter was removed yesterday. Patient has history of CAD status post stent and a stroke in the past. Had SC/cardiac stent in 2000. Has a stroke with residual aphasia/mild language difficulties in understanding and writing. Wants to go home. Had hematuria on first day of admission. Physical exam General: Alert, Oriented x3, Cooperative HEENT: Atraumatic, PERRLA, EOMI, Normocephalic. Oral: No Gingival or Mucosal Lesions/ Ulcerations Neck: Right IJ dialysis catheter. Supple, No JVD, Negative Carotid Bruits Chest wall/Lungs: Air entry diminished in bilateral lung bases. No crepitation/rhonchi Cardiovascular: Regular rate and rhythm, Normal S1,S2, No M/G/R Abdomen: Bowel Sounds Present, Soft, Non Tender, Non-Distended : Clear urine. No dysuria. No renal angle tenderness. No suprapubic tenderness. Extremities: No edema, Capillary Refill Less than 3 Seconds Skin: No rashes, No breakdown Musculoskeletal: No Tenderness to Palpation of Joints or Extremities Neurological: Cranial nerves II-XII grossly intact, DTR 2+/4. No acute focal neurological deficit. Psych/Mental Status: Mild frustrated Assessment & Plan Assessment/Plan (1) Hypoglycemia: (2) Acute metabolic acidosis: (3) Hyperkalemia, diminished renal excretion: (4) Acute renal failure: (5) Acute uremia: PLAN: Plan 74-year-old gentleman was admitted with intractable nausea and vomiting and found to have JINA with hyperkalemia, admitted on the monitored bed. Required further transfer to ICU for acute hyperkalemia and that downgraded to PCU JINA on CKD stage IIIb - Baseline creatinine is between 1.4 and 1.6 as of March 2025 - Urine output seems to be improving -Renal biopsy for Saturday if renal function is not recovering -Effient on hold okay per discussion with Dr. Garrison but will need help for 7days prior to biopsy - Continue Bolaños and monitor for renal recovery - Serologies were unremarkable - Nephrology following-appreciate input - Will decide on ongoing needs in the next 24 hours 06/11: On admission patient creatinine was 8.74, creatinine 10.7 and then fluctuates, today 7.70. BUN fluctuates between 70-90. [employer] Professor report reviewed. Patient urine output is good. Hemodialysis today. Serologies are negative. Plan for kidney biopsy on Saturday. Likely tentative discharge on Saturday. 06/12: Patient had about 2500 mL of urine output. No significant fluid removal on dialysis here yesterday but mainly for electrolyte support. Discussed with the voucher clerk we will surgery. Plan for tunneled dialysis catheter and renalbiopsy on Saturday informed by the patient and his . Surgery consulted for tunneled dialysis catheter. 06/13: Good urine output. Bolaños catheter was removed yesterday. Was evaluated by voucher clerk. Plan for right IJ dialysis catheter removal tomorrow and then tunneled dialysis catheter. They also plan for kidney biopsy tomorrow. Creatinine not improving. Serum sodium 148, chloride 112. Potassium normal. BUN 72 Anion gap metabolic acidosis - Much improved and is improving with improved renal function 06/13 anion gap is normal 14. Acute on chronic anemia - Stable - No signs of acute drop at this time - Will continue to monitor - Baseline appears to be between 11 and 13 - 06/11 hemoglobin 8.9 decreased from 12.0. His baseline hemoglobin is about 12 in November 2024. Not on any scheduled anticoagulant. Only on baby aspirin. 06/12: H&H 8.4/24.9%. CAD/carotid artery stenosis/essential hypertension/hyperlipidemia/history of TIA - No stents within the last 12 months - Effient on hold for renal biopsy --> discussed with cardiology - continue home aspirin - Continue home carvedilol - continue home amlodipine - Lisinopril on hold due to renal dysfunction - Continue isosorbide mononitrate - Follows with vascular and cardiology as an outpatient - BP is overall improved 06/05; blood pressure is good DM-2 - Hold metformin - Hold glimepiride - SSI 06/12: Blood sugar is variable 117 and then 332. Humalog insulin added. 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 CODE STATUS - Full code Charges/Coding Visit Charges Inpatient E&M: 85375 Subs Hosp L2 06/13/25 1145 <Electronically signed by Fawad Bates MD> Cosigner Signature (if applicable): CC: ~ Signed [facility] Work Phone: Progress note Author Luis Alberto Oro [facility] Note Date/Time June 13, 2025 3:14pm [facility] Medical Records Department [address] [place] [address] Progress Note - Nephrology 06/13/25 1513 MR#: [id number] Acct: [id number] Name: COLEMAN DAVIES Rep #:[id number] : 1950 74 From: Luis Alberto Oro MD PCP: Dr. Briseyda Sinclair MD Status:ADM IN Location: [place] [address] Subjective Subjective feels well no new complaints Objective Data Objective Data Vital Signs: Vital Signs Temp Pulse Resp BP Pulse Ox O2 Del Method O2 Flow Rate 97.9 F 83 18 128/73 H 99 Room Air 2 06/13/25 08:55 06/13/25 08:55 06/13/25 08:55 06/13/25 08:55 06/13/25 08:55 06/13/25 15:07 06/07/25 05:00 Oxygen Flow Rate (L/min) 2 Oxygen Delivery Method Room Air Weight: 73.6 kg Body Mass Index (BMI) 22.0 Intake & Output: Intake and Output for Last 24 Hours 06/11/25 06/12/25 06/13/25 23:59 23:59 23:59 Intake Total 600 / 600 480 / 480 480 / 480 Output Total 2450 / 2450 1200 / 1900 1825 / 1825 Balance -1850 / -1850 -720 / -1420 -1345 / -1345 Lab / Micro Data Attestation: I reviewed the patient's lab results. 06/12/25 06:47 06/13/25 05:23 Labs: Laboratory Results - last 24 hr 06/12/25 16:36: POC Glucose 325 H 06/12/25 21:18: POC Glucose 201 H 06/13/25 05:23: PT 14.1, INR 1.1, Sodium 148 H, Potassium 3.9, Chloride 112 H, Carbon Dioxide 22.0, Anion Gap 14, BUN 72 H, Creatinine 6.16 H, Estim Creat Clear Calc 10.95 L, Est GFR (MDRD) Non-Af 9 L, BUN/Creatinine Ratio 11.7, Glucose 108 H, Calcium 8.4 06/13/25 07:40: POC Glucose 168 H 06/13/25 12:15: POC Glucose 351 H Micro: Microbiology 06/05/25 12:10 Urine Catheter - Bolaños Urine Culture - Final Culture exhibits no growth. ABG Data Attestation: I personally reviewed and interpreted this ABG as follows: Rhythm Strip Rhythm Strip: Sinus Rhythm Rate: 85 Ectopy: None Physical Exam Narrative Alert awake oriented x 3 no obvious distress no pallor no icterus no JVD s1s2 no murmurs lungs clear abdomen soft no organomegaly no edema no cyanosis Assessment & Plan Assessment/Plan (1) Acute renal failure: (2) Hyperkalemia, diminished renal excretion: (3) Acute metabolic acidosis: (4) Essential hypertension: (5) Type 2 diabetes mellitus: QUALIFIERS: Diabetes mellitus halfway insulin use: without halfway use Diabetes mellitus complication status: with circulatory complication Diabetes mellitus complication detail: with other circulatory complications Qualified Code(s): E11.59 - Type 2 diabetes mellitus with other circulatory complications PLAN: Plan Assessment/Plan: The patient is a 74-year-old male with past history of CKD stage G3b, type 2 diabetes mellitus, hypertension, CAD status post PCI, PAD, stroke, hypothyroidism, BPH, iron deficiency anemia, and hyperlipidemia. Patient presented to hospital with 2-day history of intractable nausea/vomiting,anorexia and generalized weakness. Patient was found to have acute kidney injury on chronic kidney disease associated with hyperkalemia and severe metabolic acidosis. Nephrology is asked to the patient because of JINA, metabolic acidosis and hyperkalemia. Acute kidney injury on chronic kidney disease stage G3b. Baseline creatinine about 1.4-1.6 as of March 2025. Presented with 2 days of nausea. Found to have renal failure, worsening. Creatinine is up to 10. Initial urine analysis with protein Renal ultrasound without any hydronephrosis Was not particularly hypotensive. Denies any iycl-etn-dctvmuq supplements. He started taking a probiotic due to diarrhea over the last 6 weeks or so. started HD 06/07/25 HD today. see orders Urine output has picked up. Will hold dialysis after today and monitor labs. If renal function gets better, he will not need any further intervention. If renal function does not improve, he will need kidney biopsy. Tentatively tunneled dialysis catheter also. Discussed with family at bedside. Renal diet for now. 06/10/25. urine output is very good. 1.8 L. cr ok. lytes are ok. serologies are negative. possible its all ATN. repeat labs in am. further decision on HD depending on labs tomorrow. dw family bedside 06/11/25. Cr higher. kind of surprising since his urine output is pretty good. HDtoday. serologies are all negative. will plan for biopsy on saturday. likely TDC on saturday. will dw hospitalist 06/12/25 -volume, electrolytes ok today -plan on renal biopsy on saturday along with TDC -continue with HD MWF for now 06/13 -volume electrolyts stable -still no improvement in solute clearance -plan for HD and renal biopsy tomorrow 06/13/25 1514 <Electronically signed by Luis Alberto Oro MD> Cosigner Signature (if applicable): CC: ~ Signed [facility] Work Phone: Progress note Author Pamela Antunez [facility] Note Date/Time June 14, 2025 10:17am [facility] Medical Records Department [address] [place] [address] Progress Note - Surgery 06/14/25 1012 MR#: [id number] Acct: [id number] Name: COLEMAN DAVIES Rep #:[id number] : 1950 74 From: Pamela BACON PA-C PCP: Dr. Briseyda Sinclair MD Status:ADM IN Location: [place] [address] Subjective Subjective Patient evaluated resting comfortably at the side of the bed. He denies any questions with the catheter procedure today. He had is temporary catheter removed this morning. Objective Data Objective Data Vital Signs: Vital Signs Temp Pulse Resp BP Pulse Ox O2 Del Method O2 Flow Rate 98.5 F 80 16 142/66 H 97 Room Air 2 06/14/25 07:54 06/14/25 07:54 06/14/25 07:54 06/14/25 07:54 06/14/25 07:54 06/14/25 07:54 06/07/25 05:00 Oxygen Flow Rate (L/min) 2 Oxygen Delivery Method Room Air Weight: 162 lb 4.163 oz Body Mass Index (BMI) 22.0 Intake & Output: Intake and Output for Last 24 Hours 06/12/25 06/13/25 06/14/25 23:59 23:59 23:59 Intake Total 480 / 480 840 / 840 Output Total 1200 / 1900 2450 / 3500 1625 / 1625 Balance -720 / -1420 -1610 / -2660 -1625 / -1625 Lab / Micro Data 06/14/25 05:02 06/14/25 05:02 Labs: Laboratory Results - last 24 hr 06/13/25 12:15: POC Glucose 351 H 06/13/25 16:35: POC Glucose 323 H 06/13/25 21:14: POC Glucose 251 H 06/14/25 05:02: WBC 7.8, RBC 2.78 L, Hgb 8.7 L, Hct 26.5 L, MCV 95.3 H, MCH 31.3, MCHC 32.8, RDW Std Deviation 44.7 H, RDW Coeff of Rich 12.7, Plt Count 348,MPV 9.8, Immature Gran % (Auto) 0.400, Neut % (Auto) 62.2, Lymph % (Auto) 17.6 L, [place] % (Auto) 12.5 H, Eos % (Auto) 6.8 H, Baso % (Auto) 0.5, Absolute Neuts (auto) 4.9, Absolute Lymphs (auto) 1.38, Nucleated RBC % 0, PT 13.5, INR 1.0, APTT 26.8, Sodium 149 H, Potassium 4.3, Chloride 114 H, Carbon Dioxide 20.5 L, Anion Gap 15, BUN 77 H, Creatinine 5.97 H, Estim Creat Clear Calc 11.76 L, Est GFR (MDRD) Non-Af 9 L, BUN/Creatinine Ratio 12.8, Glucose 104 H, Calcium 9.0 06/14/25 06:07: POC Glucose 129 H Micro: Microbiology 06/05/25 12:10 Urine Catheter - Bolaños Urine Culture - Final Culture exhibits no growth. Rhythm Strip Rhythm Strip: Sinus Rhythm Rate: 85 Ectopy: None Physical Exam Neck Neck Narrative: Right neck- op-site intact with no active oozing noted Assessment & Plan Assessment/Plan (1) Acute renal failure: PLAN: I am following this patient in conjunction with Dr. Bear. She will independently evaluate this patient. Labs reviewed Plan to have tunneled dialysis catheter placed on right side of chest possible left Patient to have kidney biopsy today and dialysis We will continue to monitor this patient Charges/Coding Visit Charges Inpatient E&M: 15476 Subs Hosp L1 (pre-op; no charge) 06/14/25 1017 <Electronically signed by Pamela BACON PA-C> Cosigner Signature (if applicable): CC: ~ Signed [facility] Work Phone: Progress note Author Fawad Bates [facility] Note Date/Time June 14, 2025 5:10pm [facility] Medical Records Department [address] [place] [address] Progress Note - Hospitalist 06/14/25 1706 MR#: [id number] Acct: [id number] Name: COLEMAN DAVIES Rep #:[id number] : 1950 74 From: Fawad Hall PCP: Dr. Briseyda Sinclair MD Status:ADM IN Location: [place] [address] Reason for Visit Chief Complaint: Intractable N/V Objective Data Objective Data Vital Signs: Vital Signs Temp Pulse Resp BP Pulse Ox O2 Del Method O2 Flow Rate 97.8 F 78 14 155/64 H 98 Room Air 2 06/14/25 16:32 06/14/25 16:32 06/14/25 16:32 06/14/25 16:32 06/14/25 14:03 06/14/25 16:32 06/14/25 10:32 Oxygen Flow Rate (L/min) 2 Oxygen Delivery Method Room Air Weight: 170 lb 12.573 oz Body Mass Index (BMI) 23.1 Intake & Output: Intake and Output for Last 24 Hours 06/12/25 06/13/25 06/14/25 23:59 23:59 23:59 Intake Total 480 / 480 840 / 840 100 / 100 Output Total 1200 / 1900 2450 / 3500 1635 / 1635 Balance -720 / -1420 -1610 / -2660 -1535 / -1535 Lab / Micro Data 06/14/25 05:02 06/14/25 05:02 Labs: Laboratory Results - last 24 hr 06/13/25 21:14: POC Glucose 251 H 06/14/25 05:02: WBC 7.8, RBC 2.78 L, Hgb 8.7 L, Hct 26.5 L, MCV 95.3 H, MCH 31.3, MCHC 32.8, RDW Std Deviation 44.7 H, RDW Coeff of Rich 12.7, Plt Count 348,MPV 9.8, Immature Gran % (Auto) 0.400, Neut % (Auto) 62.2, Lymph % (Auto) 17.6 L, [place] % (Auto) 12.5 H, Eos % (Auto) 6.8 H, Baso % (Auto) 0.5, Absolute Neuts (auto) 4.9, Absolute Lymphs (auto) 1.38, Nucleated RBC % 0, PT 13.5, INR 1.0, APTT 26.8, Sodium 149 H, Potassium 4.3, Chloride 114 H, Carbon Dioxide 20.5 L, Anion Gap 15, BUN 77 H, Creatinine 5.97 H, Estim Creat Clear Calc 11.76 L, Est GFR (MDRD) Non-Af 9 L, BUN/Creatinine Ratio 12.8, Glucose 104 H, Calcium 9.0 06/14/25 06:07: POC Glucose 129 H 06/14/25 10:10: POC Glucose 162 H Micro: Microbiology 06/05/25 12:10 Urine Catheter - Bolaños Urine Culture - Final Culture exhibits no growth. Radiography Diagnostic Testing: Radiology Impression Chest X-Ray 06/14/25 12:32 IMPRESSION: No radiographic evidence of acute cardiopulmonary disease. Interval placement of right-sided IJ catheter. No pneumothorax. Reading Location: [place] [address] Rhythm Strip Rhythm Strip: Sinus Rhythm Rate: 85 Ectopy: None Physical Exam Narrative Seen and examined Patient was very upset in the morning with cancellation of kidney biopsy. Actually there was conflict of timing with both, tunnel dialysis catheter and kidney biopsy scheduled in the morning therefore kidney biopsy postponed for tomorrow. Patient also needs to be dialyzed after hemolysis catheter to see thepatency. Discussed with the . Patient undergoing dialysis. Physical exam General: Alert, Oriented x3, Cooperative HEENT: Atraumatic, PERRLA, EOMI, Normocephalic. Oral: No Gingival or Mucosal Lesions/ Ulcerations Neck: Right IJ dialysis removed. Supple, No JVD, Negative Carotid Bruits Chest wall/Lungs: Right chest wall tunneled dialysis catheter. Air entry diminished in bilateral lung bases. No crepitation/rhonchi Cardiovascular: Regular rate and rhythm, Normal S1,S2, No M/G/R Abdomen: Bowel Sounds Present, Soft, Non Tender, Non-Distended : Clear urine. No dysuria. No renal angle tenderness. No suprapubic tenderness. Extremities: No edema, Capillary Refill Less than 3 Seconds Skin: No rashes, No breakdown Musculoskeletal: No Tenderness to Palpation of Joints or Extremities Neurological: Cranial nerves II-XII grossly intact, DTR 2+/4. No acute focal neurological deficit. Psych/Mental Status: Mild frustrated Assessment & Plan Assessment/Plan (1) Hypoglycemia: (2) Acute metabolic acidosis: (3) Hyperkalemia, diminished renal excretion: (4) Acute renal failure: (5) Acute uremia: PLAN: Plan 74-year-old gentleman was admitted with intractable nausea and vomiting and found to have JINA with hyperkalemia, admitted on the monitored bed. Required further transfer to ICU for acute hyperkalemia and that downgraded to PCU JINA on CKD stage IIIb - Baseline creatinine is between 1.4 and 1.6 as of March 2025 - Urine output seems to be improving -Renal biopsy for Saturday if renal function is not recovering -Effient on hold okay per discussion with Dr. Garrison but will need help for 7days prior to biopsy - Continue Bolaños and monitor for renal recovery - Serologies were unremarkable - Nephrology following-appreciate input - Will decide on ongoing needs in the next 24 hours 06/11: On admission patient creatinine was 8.74, creatinine 10.7 and then fluctuates, today 7.70. BUN fluctuates between 70-90. [employer] Professor report reviewed. Patient urine output is good. Hemodialysis today. Serologies are negative. Plan for kidney biopsy on Saturday. Likely tentative discharge on Saturday. 06/12: Patient had about 2500 mL of urine output. No significant fluid removal on dialysis here yesterday but mainly for electrolyte support. Discussed with the voucher clerk we will surgery. Plan for tunneled dialysis catheter and renalbiopsy on Saturday informed by the patient and his . Surgery consulted for tunneled dialysis catheter. 06/13: Good urine output. Bolaños catheter was removed yesterday. Was evaluated by voucher clerk. Plan for right IJ dialysis catheter removal tomorrow and then tunneled dialysis catheter. They also plan for kidney biopsy tomorrow. Creatinine not improving. Serum sodium 148, chloride 112. Potassium normal. BUN 72 06/14: Right neck IJ temporary dialysis catheter was removed. Patient was frustrated in the morning try to convince because of postponement of kidney biopsy. Patient had tunneled Alysis catheter and undergoing hemodialysis in theafternoon. Hemostasis good. Discussed with IR regarding postponement of kidneybiopsy because of time conflict. Anion gap metabolic acidosis - Much improved and is improving with improved renal function 06/13 anion gap is normal 14. Acute on chronic anemia - Stable - No signs of acute drop at this time - Will continue to monitor - Baseline appears to be between 11 and 13 - 06/11 hemoglobin 8.9 decreased from 12.0. His baseline hemoglobin is about 12 in November 2024. Not on any scheduled anticoagulant. Only on baby aspirin. 06/12: H&H 8.4/24.9%. 06/14 H&H 8.7/26%. Platelet count 348K. CAD/carotid artery stenosis/essential hypertension/hyperlipidemia/history of TIA - No stents within the last 12 months - Effient on hold for renal biopsy --> discussed with cardiology - continue home aspirin - Continue home carvedilol - continue home amlodipine - Lisinopril on hold due to renal dysfunction - Continue isosorbide mononitrate - Follows with vascular and cardiology as an outpatient - BP is overall improved 06/05; blood pressure is good DM-2 - Hold metformin - Hold glimepiride - SSI 06/12: Blood sugar is variable 117 and then 332. Humalog insulin added. 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 CODE STATUS - Full code Charges/Coding Visit Charges Inpatient E&M: 76119 Subs Hosp L2 06/14/25 1710 <Electronically signed by Fawad Bates MD> Cosigner Signature (if applicable): CC: ~ Signed [facility] Work Phone: Progress note Author Yohannes Santiago [facility] Note Date/Time June 15, 2025 12:52pm [facility] Medical Records Department [address] [place] [address] Progress Note - Nephrology 06/15/25 1251 MR#: [id number] Acct: [id number] Name: COLEMAN DAVIES Rep #:[id number] : 1950 74 From: Yohannes doran MD PCP: Dr. Briseyda Sinclair MD Status:ADM IN Location: [place] [address]- Subjective Subjective s/p biopsy Objective Data Objective Data Vital Signs: Vital Signs Temp Pulse Resp BP Pulse Ox O2 Del Method O2 Flow Rate 98.3 F 77 14 142/73 H 97 Room Air 2 06/15/25 08:46 06/15/25 10:20 06/15/25 10:20 06/15/25 10:20 06/15/25 10:20 06/15/25 10:20 06/15/25 10:00 Oxygen Flow Rate (L/min) 2 Oxygen Delivery Method Room Air Weight: 75.2 kg Body Mass Index (BMI) 22.4 Intake & Output: Intake and Output for Last 24 Hours 06/13/25 06/14/25 06/15/25 23:59 23:59 23:59 Intake Total 840 / 840 680 / 680 252 / 252 Output Total 2450 / 3500 3555 / 3555 1625 / 1625 Balance -1610 / -2660 -2875 / -2875 -1373 / -1373 Lab / Micro Data 06/15/25 03:33 06/15/25 03:33 Labs: Laboratory Results - last 24 hr 06/14/25 13:50: Hep Bs Antigen Nonreactive 06/14/25 17:18: POC Glucose 344 H 06/14/25 20:57: POC Glucose 289 H 06/15/25 03:33: WBC 6.5, RBC 2.58 L, Hgb 8.2 L, Hct 25.1 L, MCV 97.3 H, MCH 31.8, MCHC 32.7, RDW Std Deviation 45.3 H, RDW Coeff of Rich 12.8, Plt Count 348,MPV 10.3, Immature Gran % (Auto) 0.500, Neut % (Auto) 59.3, Lymph % (Auto) 19.8,[place] % (Auto) 13.2 H, Eos % (Auto) 6.9 H, Baso % (Auto) 0.3, Absolute Neuts (auto) 3.9, Absolute Lymphs (auto) 1.29, Nucleated RBC % 0, Sodium 147 H, Potassium 4.7, Chloride 111 H, Carbon Dioxide 22.5, Anion Gap 13, BUN 57 H, Creatinine 4.01 H, Estim Creat Clear Calc 17.19 L, Est GFR (MDRD) Non-Af 15 L, BUN/Creatinine Ratio 14.2, Glucose 246 H, Calcium 9.0 06/15/25 10:53: POC Glucose 290 H Micro: Microbiology 06/05/25 12:10 Urine Catheter - Bolaños Urine Culture - Final Culture exhibits no growth. Radiography Diagnostic Testing: Radiology Impression Chest X-Ray 06/14/25 12:32 IMPRESSION: No radiographic evidence of acute cardiopulmonary disease. Interval placement of right-sided IJ catheter. No pneumothorax. Reading Location: [facility]--[address] 06/15/25 09:00 IMPRESSION: Successful CT-guided left inferior pole renal biopsy. 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 Patient presented to hospital with 2-day history of intractable nausea/vomiting,anorexia and generalized weakness. Patient was found to have acute kidney injury on chronic kidney disease associated with hyperkalemia and severe metabolic acidosis. Nephrology is asked to the patient because of JINA, metabolic acidosis and hyperkalemia. Acute kidney injury on chronic kidney disease stage G3b. Baseline creatinine about 1.4-1.6 as of March 2025. Presented with 2 days of nausea. Found to have renal failure, worsening. Creatinine is up to 10. Initial urine analysis with protein Renal ultrasound without any hydronephrosis Was not particularly hypotensive. Denies any slad-nro-yiwubzs supplements. He started taking a probiotic due to diarrhea over the last 6 weeks or so. started HD 06/07/25 HD today. see orders Urine output has picked up. Will hold dialysis after today and monitor labs. If renal function gets better, he will not need any further intervention. If renal function does not improve, he will need kidney biopsy. Tentatively tunneled dialysis catheter also. Discussed with family at bedside. Renal diet for now. 06/10/25. urine output is very good. 1.8 L. cr ok. lytes are ok. serologies are negative. possible its all ATN. repeat labs in am. further decision on HD depending on labs tomorrow. dw family bedside 06/11/25. Cr higher. kind of surprising since his urine output is pretty good. HDto. serologies are all negative. will plan for biopsy on saturday. likely TDC on saturday. will dw hospitalist 06/12/25 -volume, electrolytes ok today -plan on renal biopsy on saturday along with TDC -continue with HD MWF for now 06/13 -volume electrolyts stable -still no improvement in solute clearance -plan for HD and renal biopsy tomorrow 06/15. Overall doing well. Status post biopsy this morning. Extremely anxious to go home. Serologies are negative hence ANCA vasculitis unlikely. Kidney biopsy results probably will not be back till at least with electron microscopy. From nephrology standpoint, can be discharged and will arrange follow-up for the biopsy results. Discussed with family. Discussed with hospitalist. 06/15/25 1252 <Electronically signed by Yohannes Santiago MD> Cosigner Signature (if applicable): CC: ~ Signed [facility] Work Phone: Progress note Author Briseyda Sinclair [facility] Note Date/Time June 30, 2025 9 :15am [facility] [address] [place] [address] OFFICE VISIT Date of Service: 06/30/25 MR#: [id number] Acct: [id number] Patient: COLEMAN DAVIES Rep # : [id number] : 1950 Provider: LUCY NURS E Age/Sex: 75/M Location: [facility] Status: Signed Intake Vital Signs 06/21/25 07:58 Height 6 ft Weight: 152 lb 2 oz BMI 20.6 BP 93/53 L Blood Pressure Location Lt brachial Position Sitting Respiration 16 Pulse 70 Pulse Source Monitor Temp 98.0 F Temp Source Temporal Pulse Oximetry (%) 95 Oxygen Delivery Method room air Intake Visit Reasons: Pneumonia Shot Chief Complaint: Fatigue, Decreased energy Allergies ticagrelor (From Brilinta) Adverse Reaction (Severe, Verified 06/21/25 07:47) Other Have you fallen in the past year?: No Immunizations pneumococcal 23-ariadna ps vaccine 25 mcg/0.5 mL injection solution Performing Provider: Briseyda Sinclair MD Performing Location: [facility] Administered by: Ntai Taylor RN on 06/30/25 09:13 Dose Route Admin Location Dispensed Lot Number Expiration Date Pack age NDC NDC Veterinary Inspector 0.5 mL IM Right Deltoid 0.5 mL [id number] 08/21/26 [id number] [employer] D VIS Given Date VIS Provided VIS Publication Date 06/30/25 Single Vaccine 25 Eligibility Eligibility Date Funding Source Not Applicable Assessment and Plan Assessment and Plan (1) Need for Streptococcus pneumoniae vaccination: Status: Acute Orders: Orders Pneumonia Immunization Today Z23 - Encounter for immunization Plan Details Additional Comments: Pneumonia vaccine administered. Clinical Quality Measures Falls Risk Screening/Assistive Devices Have you fallen in the past year?: No 06/30/25 1116 <Electronically signed by Briseyda cano MD> Date _ [facility] Sinclair [facility] Signature: Date (if applicable) CC: ~ [facility] Work Phone: Reason for referral (narrative)No reason for referral information availableWHocking [facility] Work Phone: Chief Complaint Chief Complaint Description Start Date right shoulder pain Preliminary chief co mplaint data, not yet signed by the author as of Advance Directives No Advanced Directives Records Found Advance Directive Response Recorded Date/ Time Living Will No January 02, 2022 6:59am Power of Dentistry Professor No January 02 6:59am Advance Directive Response Recorded Date/ Time Living Will No January 08, 2022 8:34am Power of Dentistry Professor No January 08 8:34am Advance Directive Response Recorded Date/ Time Advance Directives on File Yes Alex sunshine 2021 6:55am Name of Medical Power of Dentistry Professor Basim Davies-wi fe June 01, 2022 6:55am Advance Directives Yes May 6:55am Living Will Yes June 01, 2022 6:55am Power of Dentistry Professor Yes May 6:55am Advance Directive Response Recorded Date/ Time Advance Directives Yes May 5:55am Living Will Yes June 01, 2022 5:55am Power of Dentistry Professor Yes May 5:55am Advance Directive Response Recorded Date/ Time Advance Directives Yes May 6:55am Living Will Yes June 01, 2022 6:55am Power of Dentistry Professor Yes May 6:55am Advance Directive Response Recorded Date/ Time Name of Medical Power of Dentistry Professor BASIM DAVIES August 20, 2023 3:43am Advance Directives Yes May 5:55am Living Will Yes August 20 3:43am Power of Dentistry Professor Yes August 20, 2023 3:43am Advance Directive Response Recorded Date/ Time Name of Medical Power of Dentistry Professor BASIM DAVIES August 20, 2023 3:43am Name of Medical Power of Dentistry Professor August 24, 2023 7:32am Advance Directives Yes May 5:55am Living Will Yes August 24 7:32am Power of Dentistry Professor Yes August 24, 2023 7:32am Advance Directive Response Recorded Date/ Time Name of Medical Power of Dentistry Professor BASIM DAVIES August 20, 2023 4:43am Name of Medical Power of Dentistry Professor August 24, 2023 8:32am Name of Medical Power of Dentistry Professor November 29, 2023 2:36pm Advance Directives Yes May 6:55am Living Will Yes November 29, 2023 2:36pm Power of Dentistry Professor Yes November 28 2:36pm Advance Directive Response Recorded Date/ Time Living Will Yes February 27, 2024 2:04pm Power of Dentistry Professor Yes February 26 2:04pm Advance Directives Yes May 6:55am Advance Directive Response Recorded Date/ Time Advance Directives Yes May 6:55am Advance Directive Response Recorded Date/ Time Do you have a Healthcare Power of Dentistry Professor? Yes January 12, 2025 7:05pm Name of Medical Power of Dentistry Professor January 12, 2025 7:05pm Advance Directives Yes May 6:55am Advance Directive Response Recorded Date/ Time Do you have a Healthcare Power of Dentistry Professor? Yes January 12, 2025 7:05pm Name of Medical Power of Dentistry Professor January 12, 2025 7:05pm Do you have a Healthcare Power of Dentistry Professor? Yes March 29, 2025 6:22am Advance Directives Yes May 6:55am Advance Directive Response Recorded Date/ Time Do you have a Healthcare Power of Dentistry Professor? Yes January 12, 2025 7:05pm Name of Medical Power of Dentistry Professor January 12, 2025 7:05pm Do you have a Healthcare Power of Dentistry Professor? Yes March 29, 2025 6:22am Advance Directives Yes April 16 1:29pm Advance Directive Response Recorded Date/ Time Advance Directives Yes April 16 1:29pm Do you have a Healthcare Power of Dentistry Professor? Yes January 12, 2025 7:05pm Name of Medical Power of Dentistry Professor January 12, 2025 7:05pm Do you have a Healthcare Power of Dentistry Professor? Yes March 29, 2025 6:22am Advance Directive Response Recorded Date/ Time Advance Directives Yes April 16 1:29pm Do you have a Healthcare Power of Dentistry Professor? Yes March 29, 2025 6:22am Do you have a Healthcare Power of Dentistry Professor? Yes June 05, 2025 7:50am Name of Medical Power of Dentistry Professor Basim, spouse June 05, 2025 7:50am Advance Directive Response Recorded Date/ Time Advance Directives Yes April 16 12:29pm Do you have a Healthcare Power of Dentistry Professor? Yes March 29, 2025 5:22am Do you have a Healthcare Power of Dentistry Professor? 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 Amb Documentation Amb Documentation HYPERGLYCEMIA, WEAKNESS Reason for Visit Bilateral carotid ar nithin stenosis Essential hypertension Hypertriglyceridemia Multiple lacunar infarcts Presence of stent in coronary artery Pure hypercholesterolemia Right carotid artery occlusion Type 2 diabetes mellitus CKD (chronic kidney disease) stage 3, GFR 30-59 ml/min Hyperglycemia Lactic acidosis Weakness Chief 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 Amb Documentation Amb Documentation HYPERGLYCEMIA, WEAKNESS [...] Lactic acidosis Weakness Atherosclerotic heart disease of [place] coronary artery without angina pectoris Cardiomyopathy, ischemic Essential hypertension History of recent pneumonia Hypertriglyceridemia Presence of stent in coronary artery Type 2 diabetes mellitus CKD (chronic kidney disease) stage 3, GFR 30-59 ml/min Weakness Atherosclerotic heart disease of [place] coronary artery without angina pectoris Bilateral carotid [...] for Visit Atherosclerotic hear t disease of [place] coronary artery without angina pectoris Bilateral carotid [...] GFR 30-59 ml/min Atherosclerotic heart disease of [place] coronary artery without angina pectoris Cardiomyopathy, ischemic [...] GFR 30-59 ml/min Atherosclerotic heart disease of [place] coronary artery without angina pectoris Cardiomyopathy, ischemic Essential hypertension Presence of stent in coronary artery Pure hypercholesterolemia Shortness of breath Chief Complaint 6 M FU Reason for Visit Atherosclerotic hear t disease of [place] coronary artery without angina pectoris Bilateral carotid [...] carotid artery occlusion Atherosclerotic heart disease of [place] coronary artery without angina pectoris Bilateral carotid [...] Visit Acute sinusitis Atherosclerotic heart disease of [place] coronary artery without angina pectoris Bilateral carotid [...] 2024 3:24pm Atherosclerotic heart diseas e of [place] coronary artery without angina pectoris November 09, [...] 2024 3:24pm Atherosclerotic heart diseas e of [place] coronary artery without angina pectoris November 09, [...] 2024 3:24pm Atherosclerotic heart diseas e of [place] coronary artery without angina pectoris November 09, [...] Admit Date Atherosclerotic heart diseas e of [place] coronary artery without angina pectoris November 09, 2024 1:18pm Bilateral carotid artery stenosis Februa 2024 1:18pm Dyslipidemia November 09, 2024 1:18pm Essential hypertension November 09 1:18pm Type 2 diabetes mellitus November 09, 2024 1:18pm TIA (transient ischemic attack) January 132024 3:02pm Atherosclerotic heart diseas e of [place] coronary artery without angina pectoris January 27, [...] Admit Date Atherosclerotic heart diseas e of [place] coronary artery without angina pectoris November 09, 2024 1:18pm Bilateral carotid artery stenosis Februa 2024 1:18pm Dyslipidemia November 09, 2024 1:18pm Essential hypertension November 09 1:18pm Type 2 diabetes mellitus November 09, 2024 1:18pm TIA (transient ischemic attack) January 132024 3:02pm Atherosclerotic heart diseas e of [place] coronary artery without angina pectoris January 27, [...] Admit Date Atherosclerotic heart diseas e of [place] coronary artery without angina pectoris November 09, 2024 1:18pm Bilateral carotid artery stenosis Februa 2024 1:18pm Dyslipidemia November 09, 2024 1:18pm Essential hypertension November 09 1:18pm Type 2 diabetes mellitus November 09, 2024 1:18pm TIA (transient ischemic attack) January 132024 3:02pm Atherosclerotic heart diseas e of [place] coronary artery without angina pectoris January 27, [...] 132024 3:02pm Atherosclerotic heart diseas e of [place] coronary artery without angina pectoris January 27, [...] 132024 3:02pm Atherosclerotic heart diseas e of [place] coronary artery without angina pectoris January 27, [...] TEST RESULTS April 12, 2025 12:5 0pm [facility] 7/14 CP April 28, 2025 2: 06pm Diarrhea May 03, 2025 1: 37pm Reason for Visit Admit Date TIA (transient ischemic attack) January 132024 3:02pm Atherosclerotic heart diseas e of [place] coronary artery without angina pectoris January 27, [...] 162024 2:06pm Atherosclerotic heart diseas e of [place] coronary artery without angina pectoris April 28, [...] TEST RESULTS April 12, 2025 12:5 0pm [facility] /14 CP April 28, 2025 2: 06pm Diarrhea May 03, 2025 1: 37pm E-ORDER May 06, 2025 1: 42pm Dr. Blackman wanted pt seen again Augus t 2024 3:18pm Reason for Visit Admit Date TIA (transient ischemic attack) January 132024 3:02pm Atherosclerotic heart diseas e of [place] coronary artery without angina pectoris January 27, [...] 162024 2:06pm Atherosclerotic heart diseas e of [place] coronary artery without angina pectoris April 28, 2025 2:06pm Bilateral carotid artery stenosis April 28, 2025 2:06pm Atherosclerotic heart diseas e of [place] coronary artery without angina pectoris May 03, 2025 1:37pm Essential hypertension May 03, 2025 1:37pm Type 2 diabetes mellitus May 03 1:37pm Diarrhea May 03, 2025 1: 37pm Chief Complaint Admit Date TIA, R/O AFIB February 19, 2025 6:34a m 30 DAY MONIOR February 19, 2025 8:00a m chest pain, SOB March 29, 2025 6:19 am TEST RESULTS April 12, 2025 12:5 0pm [facility] /14 CP April 28, 2025 2: 06pm Diarrhea May 03, 2025 1: 37pm E-ORDER May 06, 2025 1: 42pm Dr. Blackman wanted pt seen again Augus 2024 3:18pm INTRACTABLE N/V, HYPERK, JINA, ELEVATED T ROP June 05, 2025 5:44am INTRACTABLE N/V, HYPERK, JINA, ELEVATED T ROP June 06, 2025 7:52am INTRACTABLE N/V, HYPERK, JINA, ELEVATED T ROP June 07, 2025 7:11am INTRACTABLE N/V, HYPERK, JINA, ELEVATED T ROP June 07, 2025 12:25pm INTRACTABLE N/V, HYPERK, JINA, ELEVATED T ROP June 08, 2025 7:50am INTRACTABLE N/V, HYPERK, JINA, ELEVATED T ROP June 09, 2025 7:29am INTRACTABLE N/V, HYPERK, JINA, ELEVATED T ROP June 10, 2025 7:38am INTRACTABLE N/V, HYPERK, JINA, ELEVATED T ROP June 11, 2025 9:15am INTRACTABLE N/V, HYPERK, JINA, ELEVATED T ROP June 12, 2025 12:40pm INTRACTABLE N/V, HYPERK, JINA, ELEVATED T ROP June 13, 2025 9:00am INTRACTABLE N/V, HYPERK, JINA, ELEVATED T ROP June 13, 2025 11:42am INTRACTABLE N/V, HYPERK, JINA, ELEVATED T ROP June 14, 2025 10:12am INTRACTABLE N/V, HYPERK, JINA, ELEVATED T ROP June 14, 2025 5:06pm INTRACTABLE N/V, HYPERK, JINA, ELEVATED T ROP June 15, 2025 1:56pm Reason for Visit Admit Date Aneurysm of intracranial artery March 12:50pm Bilateral carotid artery stenosis March 172024 12:50pm Intracranial vascular stenosis March 12:50pm Transient ischemia April 12, 2025 12:5 0pm Aneurysm of intracranial artery April 162024 2:06pm Atherosclerotic heart diseas e of [place] coronary artery without angina pectoris April 28, 2025 2:06pm Bilateral carotid artery stenosis April 28, 2025 2:06pm Atherosclerotic heart diseas e of [place] coronary artery without angina pectoris May 03, 2025 1:37pm Essential hypertension May 03, 2025 1:37pm Type 2 diabetes mellitus May 03 1:37pm Diarrhea May 03, 2025 1: 37pm Carotid stenosis, left May 12, 2025 3:18pm Acute metabolic acidosis June 05, 2025 5:44am Acute renal failure June 05, 2025 5:44am Acute uremia June 05, 2025 5:44am Hyperkalemia, diminished renal excretion June 05, 2025 5:44am Hypoglycemia June 05, 2025 5:44am Vomiting June 05, 2025 5:44am Essential hypertension June 05, 025 5:44am Type 2 diabetes mellitus June 05, 2025 5:44am Chief Complaint Admit Date chest pain, SOB March 29, 2025 6:19 am TEST RESULTS April 12, 2025 12:5 0pm [facility] /14 CP April 28, 2025 2: 06pm Diarrhea May 03, 2025 1: 37pm E-ORDER May 06, 2025 1: 42pm Dr. Blackman wanted pt seen again Augus 2024 3:18pm INTRACTABLE N/V, HYPERK, JINA, ELEVATED T ROP June 05, 2025 5:44am INTRACTABLE N/V, HYPERK, JINA, ELEVATED T ROP June 06, 2025 7:52am INTRACTABLE N/V, HYPERK, JINA, ELEVATED T ROP June 07, 2025 7:11am INTRACTABLE N/V, HYPERK, JINA, ELEVATED T ROP June 07, 2025 12:25pm INTRACTABLE N/V, HYPERK, JINA, ELEVATED T ROP June 08, 2025 7:50am INTRACTABLE N/V, HYPERK, JINA, ELEVATED T ROP June 09, 2025 7:29am INTRACTABLE N/V, HYPERK, JINA, ELEVATED T ROP June 10, 2025 7:38am INTRACTABLE N/V, HYPERK, JINA, ELEVATED T ROP June 11, 2025 9:15am INTRACTABLE N/V, HYPERK, JINA, ELEVATED T ROP June 12, 2025 12:40pm INTRACTABLE N/V, HYPERK, JINA, ELEVATED T ROP June 13, 2025 9:00am INTRACTABLE N/V, HYPERK, JINA, ELEVATED T ROP June 13, 2025 11:42am INTRACTABLE N/V, HYPERK, JINA, ELEVATED T ROP June 14, 2025 10:12am INTRACTABLE N/V, HYPERK, JINA, ELEVATED T ROP June 14, 2025 5:06pm INTRACTABLE N/V, HYPERK, JINA, ELEVATED T ROP June 15, 2025 1:56pm [facility] PCU Discharge FU June 21, 2025 7 :41am Chief Complaint Admit Date chest pain, SOB March 29, 2025 6:19 am TEST RESULTS April 12, 2025 12:5 0pm [facility] 14 CP April 28, 2025 2: 06pm Diarrhea May 03, 2025 1: 37pm E-ORDER May 06, 2025 1: 42pm Dr. Blackman wanted pt seen again Augus 2024 3:18pm INTRACTABLE N/V, HYPERK, JINA, ELEVATED T ROP June 05, 2025 5:44am INTRACTABLE N/V, HYPERK, JINA, ELEVATED T ROP June 06, 2025 7:52am INTRACTABLE N/V, HYPERK, JINA, ELEVATED T ROP June 07, 2025 7:11am INTRACTABLE N/V, HYPERK, JINA, ELEVATED T ROP June 07, 2025 12:25pm INTRACTABLE N/V, HYPERK, JINA, ELEVATED T ROP June 08, 2025 7:50am INTRACTABLE N/V, HYPERK, JINA, ELEVATED T ROP June 09, 2025 7:29am INTRACTABLE N/V, HYPERK, JINA, ELEVATED T ROP June 10, 2025 7:38am INTRACTABLE N/V, HYPERK, JINA, ELEVATED T ROP June 11, 2025 9:15am INTRACTABLE N/V, HYPERK, JINA, ELEVATED T ROP June 12, 2025 12:40pm INTRACTABLE N/V, HYPERK, JINA, ELEVATED T ROP June 13, 2025 9:00am INTRACTABLE N/V, HYPERK, JINA, ELEVATED T ROP June 13, 2025 11:42am INTRACTABLE N/V, HYPERK, JINA, ELEVATED T ROP June 14, 2025 10:12am INTRACTABLE N/V, HYPERK, JINA, ELEVATED T ROP June 14, 2025 5:06pm INTRACTABLE N/V, HYPERK, JINA, ELEVATED T ROP June 15, 2025 1:56pm Transitional Care Management June 7:41am Pneumonia Shot June 30, 2025 9 :11am Referral Order July 06, 2025 4 :22pm TYPE 2 DM July 07, 2025 1 0:54am LABS July 12, 2025 1 2:29pm Reason for Visit Admit Date Aneurysm of intracranial artery March 12:50pm Bilateral carotid artery stenosis March 172024 12:50pm Intracranial vascular stenosis March 12:50pm Transient ischemia April 12, 2025 12:5 0pm Aneurysm of intracranial artery April 162024 2:06pm Atherosclerotic heart diseas e of [place] coronary artery without angina pectoris April 28, 2025 2:06pm Bilateral carotid artery stenosis April 28, 2025 2:06pm Atherosclerotic heart diseas e of [place] coronary artery without angina pectoris May 03, 2025 1:37pm Essential hypertension May 03, 2025 1:37pm Type 2 diabetes mellitus May 03 1:37pm Diarrhea May 03, 2025 1: 37pm Carotid stenosis, left May 12, 2025 3:18pm Acute metabolic acidosis June 05, 2025 5:44am Hyperkalemia, diminished renal excretion June 05, 2025 5:44am Vomiting June 05, 2025 5:44am Essential hypertension June 05, 2 025 5:44am Type 2 diabetes mellitus June 05, 2025 5:44am Hypoglycemia June 05, 2025 5:44am Acute renal failure June 05, 2025 5:44am Acute uremia June 05, 2025 5:44am Need for Streptococcus pneumoniae vaccin ation June 30, 2025 9:11am Chief Complaint Admit Date chest pain, SOB March 29, 2025 6:19 am TEST RESULTS April 12, 2025 12:5 0pm [facility] /14 CP April 28, 2025 2: 06pm Diarrhea May 03, 2025 1: 37pm E-ORDER May 06, 2025 1: 42pm Dr. Blackman wanted pt seen again Shereen t 2024 3:18pm INTRACTABLE N/V, HYPERK, JINA, ELEVATED T ROP June 05, 2025 5:44am INTRACTABLE N/V, HYPERK, JINA, ELEVATED T ROP June 06, 2025 7:52am INTRACTABLE N/V, HYPERK, JINA, ELEVATED T ROP June 07, 2025 7:11am INTRACTABLE N/V, HYPERK, JINA, ELEVATED T ROP June 07, 2025 12:25pm INTRACTABLE N/V, HYPERK, JINA, ELEVATED T ROP June 08, 2025 7:50am INTRACTABLE N/V, HYPERK, JINA, ELEVATED T ROP June 09, 2025 7:29am INTRACTABLE N/V, HYPERK, JINA, ELEVATED T ROP June 10, 2025 7:38am INTRACTABLE N/V, HYPERK, JINA, ELEVATED T ROP June 11, 2025 9:15am INTRACTABLE N/V, HYPERK, JINA, ELEVATED T ROP June 12, 2025 12:40pm INTRACTABLE N/V, HYPERK, JINA, ELEVATED T ROP June 13, 2025 9:00am INTRACTABLE N/V, HYPERK, JINA, ELEVATED T ROP June 13, 2025 11:42am INTRACTABLE N/V, HYPERK, JINA, ELEVATED T ROP June 14, 2025 10:12am INTRACTABLE N/V, HYPERK, JINA, ELEVATED T ROP June 14, 2025 5:06pm INTRACTABLE N/V, HYPERK, JINA, ELEVATED T ROP June 15, 2025 1:56pm Transitional Care Management June 7:41am Pneumonia Shot June 30, 2025 9 :11am Referral Order July 06, 2025 4 :22pm TYPE 2 DM July 07, 2025 1 0:54am LABS July 12, 2025 1 2:29pm CVC REMOVAL July 20, 2025 8 :19am 2 WK FU July 21, 2025 9 :18am Reason for Visit Admit Date Aneurysm of intracranial artery March 12:50pm Bilateral carotid artery stenosis March 172024 12:50pm Intracranial vascular stenosis March 12:50pm Transient ischemia April 12, 2025 12:5 0pm Aneurysm of intracranial artery April 162024 2:06pm Atherosclerotic heart diseas e of [place] coronary artery without angina pectoris April 28, 2025 2:06pm Bilateral carotid artery stenosis April 28, 2025 2:06pm Atherosclerotic heart diseas e of [place] coronary artery without angina pectoris May 03, 2025 1:37pm Essential hypertension May 03, 2025 1:37pm Type 2 diabetes mellitus May 03 1:37pm Diarrhea May 03, 2025 1: 37pm Carotid stenosis, left May 12, 2025 3:18pm Acute metabolic acidosis June 05, 2025 5:44am Hyperkalemia, diminished renal excretion June 05, 2025 5:44am Vomiting June 05, 2025 5:44am Essential hypertension June 05, 2 025 5:44am Type 2 diabetes mellitus June 05, 2025 5:44am Hypoglycemia June 05, 2025 5:44am Acute renal failure June 05, 2025 5:44am Acute uremia June 05, 2025 5:44am Need for Streptococcus pneumoniae vaccin ation June 30, 2025 9:11am Encounter for dialysis catheter care Jul 8:19am CKD (chronic kidney disease) stage 3, GF R 30-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/min July 21, 2025 9:18am Type 2 diabetes mellitus July 21, 2 025 9:18am Summary Purpose Additional Source Comments Reason for Visit (unrecogniz ed section and content) Reason Comments PT Discharge Specialty Diagnoses / Procedures Referred By Charlette t Referred To Contact Physical Therapy / PHYSICAL THERAPY Diagnoses right shoulder pain Procedures NEW RS PT ORTH Eloy Fragoso [address] [address] Kajal Logan, PT [address] [place] [address] Referral ID Status Reason Start Date Expiration Date V isits Requested Visits Authorized [id number] Authorized 09/16/2021 09/15/2022 99 99 Reason Comments [...] or prosecute any alcohol or drug abuse patient.[facility] the event this information is protected by the Federal Confidentiality of Alcohol and Drug Abuse Patient Records regulations: The Federal rules restrict any use of the information to criminally investigate or prosecute any alcohol or drug abuse patient.[facility] the event this information is protected by the Federal Confidentiality of Alcohol and Drug Abuse Patient Records regulations: The Federal rules restrict any use of the information to criminally investigate or prosecute any alcohol or drug abuse patient.[facility] the event this information is protected by the Federal Confidentiality of Alcohol and Drug Abuse Patient Records regulations: The Federal rules restrict any use of the information to criminally investigate or prosecute any alcohol or drug abuse patient.[facility] the event this information is protected by the Federal Confidentiality of Alcohol and Drug Abuse Patient Records regulations: The Federal rules restrict any use of the information to criminally investigate or prosecute any alcohol or drug abuse patient.[facility] Goals (unrecognized section and content) Goals [...] Records FoundNo Status Records FoundNo Status Records FoundNo Status Records Found INFORMATION SOURCE (unrecogn ized section and content) DATE CREATED AUTHOR 02/10/2022 [facility] DATE CREATED AUTHOR AUTHOR'S ORGANIZ ATION 04/05/2025 [facility] DATE CREATED AUTHOR AUTHOR'S ORGANIZ ATION 06/22/2025 [facility] DATE CREATED AUTHOR AUTHOR'S ORGANIZ ATION 07/29/2025 [facility] Care Teams (unrecognized sec tion and content) [...] Care Provider, Referri ng Provider Active Omkar BACON, PA Attending Provider Active Team Status: Inactive [...] Care Provider, Referri ng Provider Active Selwyn BACON, PA Attending Provider Active Team Status: Inactive [...] February 06, 2025 End: February 06, 2025 SALVADOR MaxC Attending Provider Active Start: February 06, 2025 End: February 06, 2025 Team Status: Inactive Member Role Status Dates Dr. Briseyda Sinclair MD Primary Care Provider Active Start: February 11, 2025 End: February 11, 2025 Dr. Briseyda Sinclair MD Referring Provider Active Start: February 11, 2025 End: February 11, 2025 SALVADOR BarrientosC Attending Provider Active S tart: February 11, 2025 End: February 11, 2025 Security Sales Consultant Relationship Specialty Start Date End Date Briseyda Sinclair [address] [place] [address] PCP - General Internal Medicine 03/04/25 Security Sales Consultant Relationship Specialty Start Date End Date Briseyda Sinclair [address] [place] [address] PCP - General Internal Medicine 03/04/25 Team [...] February 06, 2025 End: February 06, 2025 SALVADOR MaxC Attending Provider Active Start: February 06, 2025 End: February 06, 2025 Team Status: Inactive Member Role/Relationship Status Dates Dr. Briseyda Sinclair MD Primary Care Provider Active Start: February 11, 2025 End: February 11, 2025 Dr. Briseyda Sinclair MD Referring Provider Active Start: February 11, 2025 End: February 11, 2025 SALVADOR BarrientosC Attending Provider Active S tart: February 11, 2025 End: February 11, 2025 Team Status: Active Member Role/Relationship Status Dates Dr. Briseyda Sinclair MD Primary Care Provider Active Start: February 19, 2025 SALVADOR BarrientosC Attending Provider Active S tart: February 19, 2025 SILVIA Barrientos Referring Provider Active S tart: February 19, 2025 Security Sales Consultant Relationship Specialty Start Date End Date Briseyda Sinclair [address] [place] [address] PCP - General Internal Medicine 03/04/25 Security Sales Consultant Relationship Specialty Start Date End Date Briseyda Sinclair [address] [place] [phone] PCP - General Internal Medicine 03/04/25 Team [...] Attending Provider Active Start: February 19, 2025 SALVADOR BarrientosC Referring Provider Active S tart: February 19, [...] Active Start: February 19, 2025 Saira Sánchez ATOMIC PROCESS ENGINEER-C Attending Provider Active S tart: February 19, 2025 Saira Sánchez ATOMIC PROCESS ENGINEER-C Referring Provider Active S tart: February 19, [...] April 12, 2025 End: April 12, 2025 Saira Sánchez NP-C Attending Provider Active S tart: April 12, [...] May 12, 2025 End: May 12, 2025 Security Sales Consultant Relationship Specialty Start Date End Date Briseyda Sinclair [address] [place] [phone] PCP - General Internal Medicine 03/04/25 Security Sales Consultant Relationship Specialty Start Date End Date Briseyda Sinclair [address] [place] [phone] PCP - General Internal Medicine 03/04/25 Team Status: Active Member Role/Relationship Status Dates Dr. Briseyda Sinclair MD Primary care physician Active Team Status: Active Member Role/Relationship Status Dates Dr. Briseyda Sinclair MD Primary care physician Active Start: February 19, 2025 SALVADOR BarrientosC Attending physician Active Start: February 19, 2025 Saira Sánchez NP-C Referring Provider Active S tart: February 19, 2025 Team Status: Active Member Role/Relationship Status Dates Dr. Briseyda Sinclair MD Primary care physician Active Start: February 19, 2025 Dr. Cuate Garrison MD Attending physician Active Start: February 19, 2025 Saira Sánchez NP-C Referring Provider Active S tart: February 19, 2025 Team Status: Inactive Member Role/Relationship Status Dates Dr. Briseyda Sinclair MD Primary care physician Active Start: March 29, 2025 End: March 29, 2025 Dr. Ravinder Vance DO Attending physician Active Start: March 29, 2025 End: March 29, 2025 Dr. Ravinder Vance DO Emergency Department Physician A ctive Start: March 29, 2025 End: March 29, 2025 Team Status: Inactive Member Role/Relationship Status Dates Dr. Briseyda Sinclair MD Primary care physician Active Start: April 12, 2025 End: April 12, 2025 Dr. Briseyda Sinclair MD Referring Provider Active Start: April 12, 2025 End: April 12, 2025 SILVIA Barrientos Attending physician Active Start: April 12, 2025 End: April 12, 2025 Team Status: Inactive Member Role/Relationship Status Dates Dr. Briseyda Sinclair MD Primary care physician Active Start: April 28, 2025 End: April 28, 2025 Dr. Briseyda Sinclair MD Referring Provider Active Start: April 28, 2025 End: April 28, 2025 Dr. Cuate Garrison MD Attending physician Active Start: April 28, 2025 End: April 28, 2025 Team Status: Inactive Member Role/Relationship Status Dates Dr. Briseyda Sinclair MD Primary care physician Active Start: May 03, 2025 End: May 03, 2025 Dr. Briseyda Sinclair MD Attending physician Active Start: May 03, 2025 End: May 03, 2025 Team Status: Inactive Member Role/Relationship Status Dates Dr. Briseyda Sinclair MD Primary care physician Active Start: May 06, 2025 End: May 06, 2025 Dr. Briseyda Sinclair MD Attending physician Active Start: May 06, 2025 End: May 06, 2025 Dr. Briseyda Sinclair MD Referring Provider Active Start: May 06, 2025 End: May 06, 2025 Team Status: Inactive Member Role/Relationship Status Dates Dr. Briseyda Sinclair MD Primary care physician Active Start: May 12, 2025 End: May 12, 2025 Dr. Briseyda Sinclair MD Referring Provider Active Start: May 12, 2025 End: May 12, 2025 Dr. Mookie Werner MD Attending physician Active Start: May 12, 2025 End: May 12, 2025 Team Status: Inactive Member Role/Relationship Status Dates Dr. Briseyda Sinclair MD Primary care physician Active Start: June 05, 2025 End: June 15, 2025 Dr. Blake Kapoor MD Emergency Depart ment Physician Active Start: June 05, 2025 End: June 15, 2025 Dr. Tabby Zuniga MD Admitting physician Active Start: June 05, 2025 End: June 15, 2025 Dr. Tabby Zuniga MD Nurse Practitioner Active Start: June 05, 2025 End: June 15, 2025 Dr. Richi Hope MD Nurse Practitioner Active Start: June 05, 2025 End: June 15, 2025 Dr. Yohannes Santiago MD Nurse Practitioner Active Start: June 05, 2025 End: June 15, 2025 Dr. Fawad Bates MD Attending physician Active Start: June 05, 2025 End: June 15, 2025 Dr. Candy Vo DO Nurse Practitioner Active S tart: June 05, 2025 End: June 15, 2025 Dr. Tanika Bear MD Nurse Practitioner Active Start: June 05, 2025 End: June 15, 2025 Team Status: Active Member Role/Relationship Status Dates Dr. Briseyda Sinclair MD Primary care physician Active Start: June 05, 2025 Dr. Jeffrey Lord MD Attending physician Active Start: June 05, 2025 Team Status: Active Member Role/Relationship Status Dates Dr. Briseyda Sinclair MD Primary care physician Active Start: June 06, 2025 Dr. Blake Kapoor MD Emergency Depart ment Physician Active Start: June 06, 2025 Dr. Tabby Zuniga MD Admitting physician Active Start: June 06, 2025 Dr. Tabby Zuniga MD Nurse Practitioner Active Start: June 06, 2025 Dr. Richi Hope MD Attending physician Active Start: June 06, 2025 Dr. Richi Hope MD Nurse Practitioner Active Start: June 06, 2025 Dr. Yohannes Santiago MD Nurse Practitioner Active Start: June 06, 2025 Team Status: Active Member Role/Relationship Status Dates Dr. Briseyda Sinclair MD Primary care physician Active Start: June 07, 2025 Dr. Blake Kapoor MD Emergency Depart ment Physician Active Start: June 07, 2025 Dr. Tabby Zuniga MD Admitting physician Active Start: June 07, 2025 Dr. Tabby Zuniga MD Nurse Practitioner Active Start: June 07, 2025 Dr. Candy Vo DO Attending physician Active Start: June 07, 2025 Dr. Candy Vo DO Nurse Practitioner Active S tart: June 07, 2025 Dr. Richi Hope MD Nurse Practitioner Active Start: June 07, 2025 Dr. Yohannes Santiago MD Nurse Practitioner Active Start: June 07, 2025 Team Status: Active Member Role/Relationship Status Dates Dr. Briseyda Sinclair MD Primary care physician Active Start: June 07, 2025 Dr. Blake Kapoor MD Emergency Depart ment Physician Active Start: June 07, 2025 Dr. Tabby Zuniga MD Admitting physician Active Start: June 07, 2025 Dr. Tabby Zuniga MD Nurse Practitioner Active Start: June 07, 2025 Dr. Yohannes Santiago MD Nurse Practitioner Active Start: June 07, 2025 Dr. Candy Vo DO Nurse Practitioner Active S tart: June 07, 2025 Dr. Richi Hope MD Nurse Practitioner Active Start: June 07, 2025 Dr. Merlin Costa DO Attending physician Active Start: June 07, 2025 Team Status: Active Member Role/Relationship Status Dates Dr. Briseyda Sinclair MD Primary care physician Active Start: June 08, 2025 Dr. Blake Kapoor MD Emergency Depart ment Physician Active Start: June 08, 2025 Dr. Tabby Zuniga MD Admitting physician Active Start: June 08, 2025 Dr. Tabby Zuniga MD Nurse Practitioner Active Start: June 08, 2025 Dr. Candy Vo DO Attending physician Active Start: June 08, 2025 Dr. Candy Vo DO Nurse Practitioner Active S tart: June 08, 2025 Dr. Richi Hope MD Nurse Practitioner Active Start: June 08, 2025 Dr. Yohannes Santiago MD Nurse Practitioner Active Start: June 08, 2025 Team Status: Active Member Role/Relationship Status Dates Dr. Briseyda Sinclair MD Primary care physician Active Start: June 09, 2025 Dr. Blake Kapoor MD Emergency Depart ment Physician Active Start: June 09, 2025 Dr. Tabby Zuniga MD Admitting physician Active Start: June 09, 2025 Dr. Tabby Zuniga MD Nurse Practitioner Active Start: June 09, 2025 Dr. Cadny Vo DO Attending physician Active Start: June 09, 2025 Dr. Candy Vo DO Nurse Practitioner Active S tart: June 09, 2025 Dr. Richi Hope MD Nurse Practitioner Active Start: June 09, 2025 Dr. Yohannes Santiago MD Nurse Practitioner Active Start: June 09, 2025 Team Status: Active Member Role/Relationship Status Dates Dr. Briseyda Sinclair MD Primary care physician Active Start: June 10, 2025 Dr. Blake Kapoor MD Emergency Depart ment Physician Active Start: June 10, 2025 Dr. Tabby Zuniga MD Admitting physician Active Start: June 10, 2025 Dr. Tabby Zuniga MD Nurse Practitioner Active Start: June 10, 2025 Dr. Candy Vo DO Attending physician Active Start: June 10, 2025 Dr. Candy Vo DO Nurse Practitioner Active S tart: June 10, 2025 Dr. Richi Hope MD Nurse Practitioner Active Start: June 10, 2025 Dr. Yohannes Santiago MD Nurse Practitioner Active Start: June 10, 2025 Team Status: Active Member Role/Relationship Status Dates Dr. Briseyda Sinclair MD Primary care physician Active Start: June 11, 2025 Dr. Blake Kapoor MD Emergency Depart ment Physician Active Start: June 11, 2025 Dr. Tabby Zuniga MD Admitting physician Active Start: June 11, 2025 Dr. Tabby Zuniga MD Nurse Practitioner Active Start: June 11, 2025 Dr. Richi Hope MD Nurse Practitioner Active Start: June 11, 2025 Dr. Yohannes Santiago MD Nurse Practitioner Active Start: June 11, 2025 Dr. Fawad Bates MD Attending physician Active Start: June 11, 2025 Dr. Fawad Bates MD Nurse Practitioner Active Start: June 11, 2025 Dr. Candy Vo DO Nurse Practitioner Active S tart: June 11, 2025 Team Status: Active Member Role/Relationship Status Dates Dr. Briseyda Sinclair MD Primary care physician Active Start: June 12, 2025 Dr. Blake Kapoor MD Emergency Depart ment Physician Active Start: June 12, 2025 Dr. Tabby Zuniga MD Admitting physician Active Start: June 12, 2025 Dr. Tabby Zuniga MD Nurse Practitioner Active Start: June 12, 2025 Dr. Richi Hope MD Nurse Practitioner Active Start: June 12, 2025 Dr. Yohannes Santiago MD Nurse Practitioner Active Start: June 12, 2025 Dr. Fawad Bates MD Attending physician Active Start: June 12, 2025 Dr. Fawad Bates MD Nurse Practitioner Active Start: June 12, 2025 Dr. Candy Vo DO Nurse Practitioner Active S tart: June 12, 2025 Dr. Tanika Bear MD Nurse Practitioner Active Start: June 12, 2025 Team Status: Active Member Role/Relationship Status Dates Dr. Briseyda Sinclair MD Primary care physician Active Start: June 13, 2025 Dr. Blake Kapoor MD Emergency Depart ment Physician Active Start: June 13, 2025 Dr. Tabby Zuniga MD Admitting physician Active Start: June 13, 2025 Dr. Tabby Zuniga MD Nurse Practitioner Active Start: June 13, 2025 Dr. Richi Hope MD Nurse Practitioner Active Start: June 13, 2025 Dr. Yohannes Santiago MD Nurse Practitioner Active Start: June 13, 2025 Dr. Fawad Bates MD Nurse Practitioner Active Start: June 13, 2025 Dr. Candy Vo , Nurse Practitioner Active S tart: June 13, 2025 Dr. Tanika Bear MD Attending physician Active Start: June 13, 2025 Dr. Tanika Bear MD Nurse Practitioner Active Start: June 13, 2025 Team Status: Active Member Role/Relationship Status Dates Dr. Briseyda Sinclair MD Primary care physician Active Start: June 13, 2025 Dr. Blake Kapoor MD Emergency Depart [facility] Physician Active Start: June 13, 2025 Dr. Tabby Zuniga MD Admitting physician Active Start: June 13, 2025 Dr. Tabby Zungia MD Nurse Practitioner Active Start: June 13, 2025 Dr. Richi Hope MD Nurse Practitioner Active Start: June 13, 2025 Dr. Yohannes Santiago MD Nurse Practitioner Active Start: June 13, 2025 Dr. Fawad Bates MD Attending physician Active Start: June 13, 2025 Dr. Fawad Bates MD Nurse Practitioner Active Start: June 13, 2025 Dr. Candy Vo DO Nurse Practitioner Active S tart: June 13, 2025 Dr. Tanika Bear MD Nurse Practitioner Active Start: June 13, 2025 Team Status: Active Member Role/Relationship Status Dates Dr. Briseyda Sinclair MD Primary care physician Active Start: June 14, 2025 Dr. Blake Kapoor MD Emergency Depart [facility] Physician Active Start: June 14, 2025 Dr. Tabby Zuniga MD Admitting physician Active Start: June 14, 2025 Dr. Tabby Zuniga MD Nurse Practitioner Active Start: June 14, 2025 Dr. Richi Hope MD Nurse Practitioner Active Start: June 14, 2025 Dr. Yohannes Santiago MD Nurse Practitioner Active Start: June 14, 2025 Dr. Fawad Bates MD Nurse Practitioner Active Start: June 14, 2025 Dr. Candy Vo DO Nurse Practitioner Active S tart: June 14, 2025 Dr. Tanika Bear MD Nurse Practitioner Active Start: June 14, 2025 Pamela BACON, PA-C Attending physician Active Start: June 14, 2025 Team Status: Active Member Role/Relationship Status Dates Dr. Briseyda Sinclair MD Primary care physician Active Start: June 14, 2025 Dr. Blake Kapoor MD Emergency Depart ment Physician Active Start: June 14, 2025 Dr. Tabby Zuniga MD Admitting physician Active Start: June 14, 2025 Dr. Tabby Zuniga MD Nurse Practitioner Active Start: June 14, 2025 Dr. Richi Hope MD Nurse Practitioner Active Start: June 14, 2025 Dr. Yohannes Santiago MD Nurse Practitioner Active Start: June 14, 2025 Dr. Fawad Bates MD Attending physician Active Start: June 14, 2025 Dr. Fawad Bates MD Nurse Practitioner Active Start: June 14, 2025 Dr. Candy Vo DO Nurse Practitioner Active S tart: June 14, 2025 Dr. Tanika Bear MD Nurse Practitioner Active Start: June 14, 2025 Team Status: Active Member Role/Relationship Status Dates Dr. Briseyda Sinclair MD Primary care physician Active Start: June 15, 2025 Dr. Blake Kapoor MD Emergency Depart ment Physician Active Start: June 15, 2025 Dr. Tabby Zuniga MD Admitting physician Active Start: June 15, 2025 Dr. Tabby Zuniga MD Nurse Practitioner Active Start: June 15, 2025 Dr. Richi Hope MD Nurse Practitioner Active Start: June 15, 2025 Dr. Yohannes Santiago MD Nurse Practitioner Active Start: June 15, 2025 Dr. Fawad Bates MD Attending physician Active Start: June 15, 2025 Dr. Fawad Bates MD Nurse Practitioner Active Start: June 15, 2025 Dr. Candy Vo DO Nurse Practitioner Active S tart: June 15, 2025 Dr. Tanika Bear MD Nurse Practitioner Active Start: June 15, 2025 Team Status: Inactive Member Role/Relationship Status Dates Dr. Briseyda Sinclair MD Primary care physician Active Start: March 29, 2025 End: March 29, 2025 Dr. Ravinder Vance DO Attending physician Active Start: March 29, 2025 End: March 29, 2025 Dr. Ravinder Vance DO Emergency Department Physician A ctive Start: March 29, 2025 End: March 29, 2025 Team Status: Inactive Member Role/Relationship Status Dates Dr. Briseyda Sinclair MD Primary care physician Active Start: April 12, 2025 End: April 12, 2025 Dr. Briseyda Sinclair MD Referring Provider Active Start: April 12, 2025 End: April 12, 2025 SILVIA Barrientos Attending physician Active Start: April 12, 2025 End: April 12, 2025 Team Status: Inactive Member Role/Relationship Status Dates Dr. Briseyda Sinclair MD Primary care physician Active Start: April 28, 2025 End: April 28, 2025 Dr. Briseyda Sinclair MD Referring Provider Active Start: April 28, 2025 End: April 28, 2025 Dr. Cuate Garrison MD Attending physician Active Start: April 28, 2025 End: April 28, 2025 Team Status: Inactive Member Role/Relationship Status Dates Dr. Briseyda Sinclair MD Primary care physician Active Start: May 03, 2025 End: May 03, 2025 Dr. Briseyda Sinclair MD Attending physician Active Start: May 03, 2025 End: May 03, 2025 Team Status: Inactive Member Role/Relationship Status Dates Dr. Briseyda Sinclair MD Primary care physician Active Start: May 06, 2025 End: May 06, 2025 Dr. Briseyda Sinclair MD Attending physician Active Start: May 06, 2025 End: May 06, 2025 Dr. Briseyda Sinclair MD Referring Provider Active Start: May 06, 2025 End: May 06, 2025 Team Status: Inactive Member Role/Relationship Status Dates Dr. Briseyda Sinclair MD Primary care physician Active Start: May 12, 2025 End: May 12, 2025 Dr. Briseyda Sinclair MD Referring Provider Active Start: May 12, 2025 End: May 12, 2025 Dr. Mookie Werner MD Attending physician Active Start: May 12, 2025 End: May 12, 2025 Team Status: Inactive Member Role/Relationship Status Dates Dr. Briseyda Sinclair MD Primary care physician Active Start: June 05, 2025 End: June 15, 2025 Dr. Blake Kapoor MD Emergency Depart ment Physician Active Start: June 05, 2025 End: June 15, 2025 Dr. Tabby Zuniga MD Admitting physician Active Start: June 05, 2025 End: June 15, 2025 Dr. Tabby Zuniga MD Nurse Practitioner Active Start: June 05, 2025 End: June 15, 2025 Dr. Richi Hope MD Nurse Practitioner Active Start: June 05, 2025 End: June 15, 2025 Dr. Yohannes Santiago MD Nurse Practitioner Active Start: June 05, 2025 End: June 15, 2025 Dr. Fawad Bates MD Attending physician Active Start: June 05, 2025 End: June 15, 2025 Dr. Candy Vo DO Nurse Practitioner Active S tart: June 05, 2025 End: June 15, 2025 Dr. Tanika Baer MD Nurse Practitioner Active Start: June 05, 2025 End: June 15, 2025 Team Status: Active Member Role/Relationship Status Dates Dr. Briseyda Sinclair MD Primary care physician Active Start: June 05, 2025 Dr. Jeffrey Lord MD Attending physician Active Start: June 05, 2025 Team Status: Active Member Role/Relationship Status Dates Dr. Briseyda Sinclair MD Primary care physician Active Start: June 06, 2025 Dr. Blake Kapoor MD Emergency Depart ment Physician Active Start: June 06, 2025 Dr. Tabby Zuniga MD Admitting physician Active Start: June 06, 2025 Dr. Tabby Zuniga MD Nurse Practitioner Active Start: June 06, 2025 Dr. Richi Hope MD Attending physician Active Start: June 06, 2025 Dr. Richi Hope MD Nurse Practitioner Active Start: June 06, 2025 Dr. Yohannes Santiago MD Nurse Practitioner Active Start: June 06, 2025 Team Status: Active Member Role/Relationship Status Dates Dr. Briseyda Sinclair MD Primary care physician Active Start: June 07, 2025 Dr. Blake Kapoor MD Emergency Depart ment Physician Active Start: June 07, 2025 Dr. Tabby Zuniga MD Admitting physician Active Start: June 07, 2025 Dr. Tabby Zuniga MD Nurse Practitioner Active Start: June 07, 2025 Dr. Candy Vo DO Attending physician Active Start: June 07, 2025 Dr. Candy Vo , Nurse Practitioner Active S tart: June 07, 2025 Dr. Richi Hope MD Nurse Practitioner Active Start: June 07, 2025 Dr. Yohannes Santiago MD Nurse Practitioner Active Start: June 07, 2025 Team Status: Active Member Role/Relationship Status Dates Dr. Briseyda Sinclair MD Primary care physician Active Start: June 07, 2025 Dr. Blake Kapoor MD Emergency Depart ment Physician Active Start: June 07, 2025 Dr. Tabby Zuniga MD Admitting physician Active Start: June 07, 2025 Dr. Tabby Zuniga MD Nurse Practitioner Active Start: June 07, 2025 Dr. Yohannes Santiago MD Nurse Practitioner Active Start: June 07, 2025 Dr. Candy Vo , Nurse Practitioner Active S tart: June 07, 2025 Dr. Richi Hope MD Nurse Practitioner Active Start: June 07, 2025 Dr. Merlin Costa DO Attending physician Active Start: June 07, 2025 Team Status: Active Member Role/Relationship Status Dates Dr. Briseyda Sinclair MD Primary care physician Active Start: June 08, 2025 Dr. Blake Kapoor MD Emergency Depart ment Physician Active Start: June 08, 2025 Dr. Tabby Zuniga MD Admitting physician Active Start: June 08, 2025 Dr. Tabby Zuniga MD Nurse Practitioner Active Start: June 08, 2025 Dr. Candy Vo DO Attending physician Active Start: June 08, 2025 Dr. Candy Vo , Nurse Practitioner Active S tart: June 08, 2025 Dr. Richi Hope MD Nurse Practitioner Active Start: June 08, 2025 Dr. Yohannes Santiago MD Nurse Practitioner Active Start: June 08, 2025 Team Status: Active Member Role/Relationship Status Dates Dr. Briseyda Sinclair MD Primary care physician Active Start: June 09, 2025 Dr. Blake Kapoor MD Emergency Depart ment Physician Active Start: June 09, 2025 Dr. Tabby Zuniga MD Admitting physician Active Start: June 09, 2025 Dr. Tabby Zuniga MD Nurse Practitioner Active Start: June 09, 2025 Dr. Candy Vo DO Attending physician Active Start: June 09, 2025 Dr. Candy Vo DO Nurse Practitioner Active S tart: June 09, 2025 Dr. Richi Hope MD Nurse Practitioner Active Start: June 09, 2025 Dr. Yohannes Santiago MD Nurse Practitioner Active Start: June 09, 2025 Team Status: Active Member Role/Relationship Status Dates Dr. Briseyda Sinclair MD Primary care physician Active Start: June 10, 2025 Dr. Blake Kapoor MD Emergency Depart [facility] Physician Active Start: June 10, 2025 Dr. Tabby Zuniga MD Admitting physician Active Start: June 10, 2025 Dr. Tabby Zuniga MD Nurse Practitioner Active Start: June 10, 2025 Dr. Candy Vo DO Attending physician Active Start: June 10, 2025 Dr. Candy Vo DO Nurse Practitioner Active S tart: June 10, 2025 Dr. Richi Hope MD Nurse Practitioner Active Start: June 10, 2025 Dr. Yohannes Santiago MD Nurse Practitioner Active Start: June 10, 2025 Team Status: Active Member Role/Relationship Status Dates Dr. Briseyda Sinclair MD Primary care physician Active Start: June 11, 2025 Dr. Blake Kapoor MD Emergency Depart ment Physician Active Start: June 11, 2025 Dr. Tabby Zuniga MD Admitting physician Active Start: June 11, 2025 Dr. Tabby Zuniga MD Nurse Practitioner Active Start: June 11, 2025 Dr. Richi Hope MD Nurse Practitioner Active Start: June 11, 2025 Dr. Yohannes Satniago MD Nurse Practitioner Active Start: June 11, 2025 Dr. Fawad Bates MD Attending physician Active Start: June 11, 2025 Dr. Fawad Bates MD Nurse Practitioner Active Start: June 11, 2025 Dr. Candy Vo , Nurse Practitioner Active S tart: June 11, 2025 Team Status: Active Member Role/Relationship Status Dates Dr. Briseyda Sinclair MD Primary care physician Active Start: June 12, 2025 Dr. Blake Kapoor MD Emergency Depart ment Physician Active Start: June 12, 2025 Dr. Tabby Zuniga MD Admitting physician Active Start: June 12, 2025 Dr. Tabby Zuniga MD Nurse Practitioner Active Start: June 12, 2025 Dr. Richi Hope MD Nurse Practitioner Active Start: June 12, 2025 Dr. Yohannes Santiago MD Nurse Practitioner Active Start: June 12, 2025 Dr. Fawad Bates MD Attending physician Active Start: June 12, 2025 Dr. Fawad Bates MD Nurse Practitioner Active Start: June 12, 2025 Dr. Candy Vo DO Nurse Practitioner Active S tart: June 12, 2025 Dr. Tanika Bear MD Nurse Practitioner Active Start: June 12, 2025 Team Status: Active Member Role/Relationship Status Dates Dr. Briseyda Sinclair MD Primary care physician Active Start: June 13, 2025 Dr. Blake Kapoor MD Emergency Depart [facility] Physician Active Start: June 13, 2025 Dr. Tabby Zuniga MD Admitting physician Active Start: June 13, 2025 Dr. Tabby Zuniga MD Nurse Practitioner Active Start: June 13, 2025 Dr. Richi Hope MD Nurse Practitioner Active Start: June 13, 2025 Dr. Yohannes Santiago MD Nurse Practitioner Active Start: June 13, 2025 Dr. Fawad Bates MD Nurse Practitioner Active Start: June 13, 2025 Dr. Candy Vo DO Nurse Practitioner Active S tart: June 13, 2025 Dr. Tanika Bear MD Attending physician Active Start: June 13, 2025 Dr. Tanika Bear MD Nurse Practitioner Active Start: June 13, 2025 Team Status: Active Member Role/Relationship Status Dates Dr. Briseyda Sinclair MD Primary care physician Active Start: June 13, 2025 Dr. Blake Kapoor MD Emergency Depart [facility] Physician Active Start: June 13, 2025 Dr. Tabby Zuniga MD Admitting physician Active Start: June 13, 2025 Dr. Tabby Zuniga MD Nurse Practitioner Active Start: June 13, 2025 Dr. Richi Hope MD Nurse Practitioner Active Start: June 13, 2025 Dr. Yohannes Santiago MD Nurse Practitioner Active Start: June 13, 2025 Dr. Fawad Bates MD Attending physician Active Start: June 13, 2025 Dr. Fawad Bates MD Nurse Practitioner Active Start: June 13, 2025 Dr. Candy Vo , Nurse Practitioner Active S tart: June 13, 2025 Dr. Tanika Bear MD Nurse Practitioner Active Start: June 13, 2025 Team Status: Active Member Role/Relationship Status Dates Dr. Briseyda Sinclair MD Primary care physician Active Start: June 14, 2025 Dr. Blake Kapoor MD Emergency Depart [facility] Physician Active Start: June 14, 2025 Dr. Tabby Zuniga MD Admitting physician Active Start: June 14, 2025 Dr. Tabby Zuniga MD Nurse Practitioner Active Start: June 14, 2025 Dr. Richi Hope MD Nurse Practitioner Active Start: June 14, 2025 Dr. Yohannes Santiago MD Nurse Practitioner Active Start: June 14, 2025 Dr. Fawad Bates MD Nurse Practitioner Active Start: June 14, 2025 Dr. Candy Vo , Nurse Practitioner Active S tart: June 14, 2025 Dr. Tanika Bear MD Nurse Practitioner Active Start: June 14, 2025 Pamela BACON PAAkashC Attending physician Active Start: June 14, 2025 Team Status: Active Member Role/Relationship Status Dates Dr. Briseyda Sinclair MD Primary care physician Active Start: June 14, 2025 Dr. Blake Kapoor MD Emergency Depart [facility] Physician Active Start: June 14, 2025 Dr. Tabby Zuniga MD Admitting physician Active Start: June 14, 2025 Dr. Tabby Zuniga MD Nurse Practitioner Active Start: June 14, 2025 Dr. Richi Hope MD Nurse Practitioner Active Start: June 14, 2025 Dr. Yohannes Santiago MD Nurse Practitioner Active Start: June 14, 2025 Dr. Fawad Bates MD Attending physician Active Start: June 14, 2025 Dr. Fawad Bates MD Nurse Practitioner Active Start: June 14, 2025 Dr. Candy Vo , Nurse Practitioner Active S tart: June 14, 2025 Dr. Tanika Bear MD Nurse Practitioner Active Start: June 14, 2025 Team Status: Active Member Role/Relationship Status Dates Dr. Briseyda Sinclair MD Primary care physician Active Start: June 15, 2025 Dr. Blake Kapoor MD Emergency Depart ment Physician Active Start: June 15, 2025 Dr. Tabby Zuniga MD Admitting physician Active Start: June 15, 2025 Dr. Tabby Zuniga MD Nurse Practitioner Active Start: June 15, 2025 Dr. Richi Hope MD Nurse Practitioner Active Start: June 15, 2025 Dr. Yohannes Santiago MD Nurse Practitioner Active Start: June 15, 2025 Dr. Fawad Bates MD Attending physician Active Start: June 15, 2025 Dr. Fawad Bates MD Nurse Practitioner Active Start: June 15, 2025 Dr. Candy Vo DO Nurse Practitioner Active S tart: June 15, 2025 Dr. Tanika Bear MD Nurse Practitioner Active Start: June 15, 2025 Team Status: Inactive Member Role/Relationship Status Dates Dr. Briseyda Sinclair MD Primary care physician Active Start: June 21, 2025 End: June 21, 2025 Dr. Briseyda Sinclair MD Attending physician Active Start: June 21, 2025 End: June 21, 2025 Team Status: Active Member Role/Relationship Status Dates Dr. Briseyda Sinclair MD Primary care physician Active Start: June 21, 2025 Dr. Briseyda Sinclair MD Attending physician Active Start: June 21, 2025 Dr. Briseyda Sinclair MD Referring Provider Active Start: June 21, 2025 Team Status: Active Member Role/Relationship Status Dates Dr. Briseyda Sinclair MD Primary care physician Active Start: June 07, 2025 Dr. Blake Kapoor MD Emergency Depart ment Physician Active Start: June 07, 2025 Dr. Tabby Zuniga MD Admitting physician Active Start: June 07, 2025 Dr. Tabby Zuniga MD Nurse Practitioner Active Start: June 07, 2025 Dr. Yohannes Santiago MD Nurse Practitioner Active Start: June 07, 2025 Dr. Candy Vo DO Nurse Practitioner Active S tart: June 07, 2025 Dr. Richi Hope MD Referring Provider Active Start: June 07, 2025 Dr. Richi Hoep MD Nurse Practitioner Active Start: June 07, 2025 Dr. Merlin Costa DO Attending physician Active Start: June 07, 2025 Team Status: Active Member Role/Relationship Status Dates Dr. Briseyda Sinclair MD Primary care physician Active Start: June 13, 2025 Dr. Blake Kapoor MD Emergency Depart ment Physician Active Start: June 13, 2025 Dr. Tabby Zuniga MD Admitting physician Active Start: June 13, 2025 Dr. Tabby Zuniga MD Nurse Practitioner Active Start: June 13, 2025 Dr. Richi Hope MD Nurse Practitioner Active Start: June 13, 2025 Dr. Yohannes Santiago MD Nurse Practitioner Active Start: June 13, 2025 Dr. Fawad Bates MD Referring Provider Active Start: June 13, 2025 Dr. Fawad Bates MD Nurse Practitioner Active Start: June 13, 2025 Dr. Candy Vo , Nurse Practitioner Active S tart: June 13, 2025 Dr. Tanika Bear MD Attending physician Active Start: June 13, 2025 Dr. Tanika Bear MD Nurse Practitioner Active Start: June 13, 2025 Team Status: Active Member Role/Relationship Status Dates Dr. Briseyda Sinclair MD Primary care physician Active Start: June 14, 2025 Dr. Blake Kapoor MD Emergency Depart ment Physician Active Start: June 14, 2025 Dr. Tabby Zuniga MD Admitting physician Active Start: June 14, 2025 Dr. Tabby Zuniga MD Nurse Practitioner Active Start: June 14, 2025 Dr. Richi Hope MD Nurse Practitioner Active Start: June 14, 2025 Dr. Yohannes Santiago MD Nurse Practitioner Active Start: June 14, 2025 Dr. Fawad Bates MD Nurse Practitioner Active Start: June 14, 2025 Dr. Candy Vo DO Nurse Practitioner Active S tart: June 14, 2025 Dr. Tanika Bear MD Attending physician Active Start: June 14, 2025 Dr. Tanika Bear MD Nurse Practitioner Active Start: June 14, 2025 Team Status: Inactive Member Role/Relationship Status Dates Dr. Briseyda Sinclair MD Primary care physician Active Start: June 21, 2025 End: June 29, 2025 Dr. Briseyda Sinclair MD Attending physician Active Start: June 21, 2025 End: June 29, 2025 Team Status: Inactive Member Role/Relationship Status Dates Dr. Briseyda Sinclair MD Primary care physician Active Start: June 21, 2025 End: June 21, 2025 Dr. Briseyda Sinclair MD Attending physician Active Start: June 21, 2025 End: June 21, 2025 Dr. Briseyda Sinclair MD Referring Provider Active Start: June 21, 2025 End: June 21, 2025 Team Status: Inactive Member Role/Relationship Status Dates Dr. Briseyda Sinclair MD Primary care physician Active Start: June 30, 2025 End: June 30, 2025 Dr. Briseyda Sinclair MD Attending physician Active Start: June 30, 2025 End: June 30, 2025 Team Status: Active Member Role/Relationship Status Dates Dr. Briseyda Sinclair MD Primary care physician Active Start: July 06, 2025 Dr. Briseyda Sinclair MD Attending physician Active Start: July 06, 2025 Team Status: Active Member Role/Relationship Status Dates Dr. Briseyda Sinclair MD Primary care physician Active Start: July 07, 2025 Dr. Briseyda Sinclair MD Attending physician Active Start: July 07, 2025 Dr. Briseyda Sinclair MD Referring Provider Active Start: July 07, 2025 Team Status: Active Member Role/Relationship Status Dates Dr. Briseyda Sinclair MD Primary care physician Active Start: July 12, 2025 Dr. Angelina Ruiz DO Attending physician Active Start: July 12, 2025 Team Status: Active Member Role/Relationship Status Dates Dr. Briseyda Sinclair MD Primary care physician Active Start: June 14, 2025 Dr. Blake Kapoor MD Emergency Depart ment Physician Active Start: June 14, 2025 Dr. Tabby Zuniga MD Admitting physician Active Start: June 14, 2025 Dr. Tabby Zuniga MD Nurse Practitioner Active Start: June 14, 2025 Dr. Richi Hope MD Nurse Practitioner Active Start: June 14, 2025 Dr. Yohannes Santiago MD Nurse Practitioner Active Start: June 14, 2025 Dr. Fawad Bates MD Referring Provider Active Start: June 14, 2025 Dr. Fawad Bates MD Nurse Practitioner Active Start: June 14, 2025 Dr. Candy Vo DO Nurse Practitioner Active S tart: June 14, 2025 Dr. Tanika Bear MD Attending physician Active Start: June 14, 2025 Dr. Tanika Bear MD Nurse Practitioner Active Start: June 14, 2025 Team Status: Inactive Member Role/Relationship Status Dates Dr. Briseyda Sinclair MD Primary care physician Active Start: July 07, 2025 End: July 16, 2025 Dr. Briseyda Sinclair MD Attending physician Active Start: July 07, 2025 End: July 16, 2025 Dr. Briseyda Sinclair MD Referring Provider Active Start: July 07, 2025 End: July 16, 2025 Team Status: Inactive Member Role/Relationship Status Dates Dr. Briseyda Sinclair MD Primary care physician Active Start: July 12, 2025 End: July 12, 2025 Dr. Angelina Ruiz DO Attending physician Active Start: July 12, 2025 End: July 12, 2025 Team Status: Inactive Member Role/Relationship Status Dates Dr. Briseyda Sinclair MD Primary care physician Active Start: July 20, 2025 End: July 20, 2025 Dr. Briseyda Sinclair MD Referring Provider Active Start: July 20, 2025 End: July 20, 2025 Dr. Tanika Bear MD Attending physician Active Start: July 20, 2025 End: July 20, 2025 Team Status: Inactive Member Role/Relationship Status Dates Dr. Briseyda Sinclair MD Primary care physician Active Start: July 21, 2025 End: July 21, 2025 Dr. Briseyda Sinclair MD Attending physician Active Start: July 21, 2025 End: July 21, 2025 FOR RECORDS PERTAINING TO PATIENTS WHO ARE [...] BE BASED ON THE PRIMARY CLINICAL RECORDS. [employer] provides no warranty or guarantee of the accuracy or completeness of information in this document.
[2025-08-16 06:29] LABS: Hematocrit 31.5 % (40-54); Hemoglobin 10.7 g/dL (13.0-16.5); Immature Granulocytes Count 0.010 X10^3/uL (0.0-0.0); Mean Corp Hgb Conc 34.0 g/dL (32-36); Mean Corpuscular Volume 93.8 fL (80-94); Mean Platelet Vol. 9.5 fl (6.2-12.0); NRBC Flagged by Analyzer 0 % (0-5); Platelet Count 220 K/mm3 (150-450); RBC Distribution Width CV 13.3 % (11.6-14.6); RBC Distribution Width SD 46.1 fl (35.1-43.9); Red Blood Count 3.36 M/mm3 (4.6-6.2); White Blood Count 4.8 K/mm3 (4.4-11.0)
[2025-08-16 06:54] LABS: AST(SGOT) 14 U/L (<=37); Alanine Aminotransfer ALT/SGPT 16 U/L (<=46); Albumin, Serum 4.0 g/dL (3.4-4.8); Alkaline Phosphatase 47 U/L (40-129); Anion Gap 11 (5-15); BUN 43 mg/dL (4-19); BUN/Creat Ratio 24.7 RATIO (10-20); Calcium,Total 9.7 mg/dL (7.6-11.0); Carbon Dioxide 22.3 mmol/L (21.0-32.0); Chloride 108 mmol/L (98-108); Cholesterol 132 mg/dL (<=200); Globulin 2.4 g/dL (2.2-4.2); Glucose 218 mg/dL (70-99); Low Density Lipoprotein Calc. 66 mg/dL; Potassium 4.7 mmol/L (3.3-5.1); Triglycerides 111 mg/dL; Very Low Density Lipoprotein 22 mg/dL (5-40); cholesterol:hdl ratio screen 2.88
== END | disposition home or self-care (01) ==
LOC: LAB 05:46
PROVIDERS: PCP Internal Medicine; Referring Provider Internal Medicine; Visit Provider Internal Medicine
DX: I25.10 Atherosclerotic heart disease of native coronary artery without angina pectoris (principal); E11.59 Type 2 diabetes mellitus with other circulatory complications; E11.22 Type 2 diabetes mellitus with diabetic chronic kidney disease; N18.31 Chronic kidney disease, stage 3a; Z13.220 Encounter for screening for lipoid disorders
CPT/HCPCS: 36415; 80053; 80061; 83036; 85025

== ENCOUNTER 2025-08-31 12:48 | Outpatient (RCR) | payer MEDICARE, OTHER, SELFPAY | END 2025-09-15 23:59 | LOC: NS 12:48 | PROVIDERS: PCP Internal Medicine; Referring Provider Internal Medicine; Visit Provider Internal Medicine | DX: Z71.3 Dietary counseling and surveillance (principal); E11.59 Type 2 diabetes mellitus with other circulatory complications | CPT/HCPCS: 97803 ==

== ENCOUNTER → 2025-09-13 | Outpatient (CLI) | payer MEDICARE, OTHER, SELFPAY ==
--- OUTSIDE RECORDS SUMMARY | 2025-09-13 05:57 | XMS RPT_ITS | CCD ---
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 Br[facility]yda Sinclair Primary Care Provider Dr. Briseyda Sinclair Attending Provider [phone] Dr. Briseyda Sinclair Referring Provider [phone] Priyanka Haines Attending Provider Unavailable Dr. Tatiana Strauss Emergency Provider [phone] Renae Rubalcava Admit Provider Dr. Renae Rubalcava Attending Provider [phone] Renae Rubalcava Other Provider Dr. Briseyda Sinclair Primary Care Provider Dr. Briseyda Sinclair Attending Provider [phone] Dr. Briseyda Sinclair Referring Provider [phone] Dr. Manuel Gilman Attending Provider [phone] Dr. Briseyda Sinclair Primary Care Provider Dr. [...] LORENZO, Dr. Corrales Primary Care Provider La EXECUTIVE SALES MANAGER-C, Brenda Attending Provider Gonzalo EXECUTIVE SALES MANAGER-C, Saira Attending Provider Briseyda Sinclair Primary Care Provider Dottie LORENZO, Dr. Corrales Primary Care Provider Dottie LORENZO, Dr. Corrales Attending Provider Dottie LORENZO, Dr. Corrales Referring Provider Gonzalo EXECUTIVE SALES MANAGER-C, Saira Referring Provider Rajiv MEDRANO, Dr. Castellon [...] LORENZO, Dr. Corrales Primary Care Physician Gonzalo EXECUTIVE SALES MANAGER-C, Saira Attending Physician Gonzalo EXECUTIVE SALES MANAGER-C, Saira Referring Provider Bladimir LORENZO, Dr. Cuello [...] Practitioner Herminia LORENZO, Dr. Stoddard Nurse Practitioner Debra Santiago MD, Dr. Sheffield Nurse Practitioner Paulo [...] Provider Joseph MEDRANO, Dr. Alfaro Attending Physician Dr. Briseyda Sinclair MD Primary Care Physician [phone] Dr. Ravinder Vance DO Attending Physician Dr. Ravinder Vance DO Emergency Department Physic isaiah Dr. Briseyda Sinclair MD Referring Provider Saira [...] sage Costa DO, Dr. Boyer Attending Physician Paulo LORENZO, Dr. Celestin Nurse Practitioner Paulo LORENZO, Dr. Celestin Referring Provider Chema LORENZO, Dr. Sagastume Attending Physician Joseph MEDRANO, Dr. Alfaro Attending Physician [phone] Koram, Renae Jamee Attending Unavailable Bhupinder Kenney [...] Daily Attending Unavailable Vito Dejesus Attending Unavailable Vito Dejesus Referring Unavailable Dottie, Briseyda Primary Care Unavailable Dottie, Briseyda Attending Unavailable Dottie, Briseyda Primary Care Unavailable Dottie, Briseyda Referring Unavailable Bordner, Saira Referring Unavailable Dottie, Briseyda Primary Care Unavailable BordnerSaira Attending Unavailable Dottie, Briseyda Primary Care Unavailable Dottie, Briseyda Referring Unavailable Dottie, Briseyda Attending Unavailable Debbi, Mookie Referring Unavailable Debbi, Mookie Attending Unavailable Dottie, Briseyda [...] Primary Care Unavailable Jeffrey Lord Attending Unavailable Jefferson, Mookie Admitting Unavailable Jefferson, Mookie Attending Unavailable Dottie, Briseyda Primary Care [...] Primary Care Unavailable Dottie, Briseyda Referring Unavailable DebbiMookie Attending Unavailable Dottie, Briseyda Primary Care Unavailable [...] Primary Care Unavailable Dottie, Briseyda Referring Unavailable JosfetsonisKurtisBhupinder F Attending Unavailable Kotsonis, Bhupinder F Admitting Unavailable Kotsonis, Bhupinder F Consulting Unavailable Dottie, Briseyda Primary Care Unavailable Dottie, Briseyda Primary Care Unavailable Jeffrey Lord Attending Unavailable Dottie, Briseyda Attending Unavailable Dottie, [...] (12 sources) Ticagrelor Drug Allergy 04-12-2025 Other [facility] (1 source) Ticagrelor Drug Allergy 07-21-2025 [facility] Repository Medications Current Medications Medication Drug Class(es) [...] not exceed 3 doses per episode sennosides, shelter 8.6 mg oral tablet (7 sources) Start: [...] Coronary atherosclerosis; Translations: [Atherosclerotic heart disease of [place] coronary artery without angina pectoris] Onset: 06-29-2025 [...] Reference Range Facility MR/BMS.IMBon 07-21-2025 MR/BMS.IMB Normal [facility] Surgery Visit Reporton 07-20 Surgery Visit Report Normal [facility] Anion gap in Serum or Plasma Ordered By: Angelina Ruiz on 07-12-2025 Anion gap [Moles/Vol] 11 mmol/L 5-15 [facility] BUN/creatinine ratioOrdered By: Angelina Ruiz on 07-12-2025 Urea nitrogen/Creatinine [Mass ratio] 22.3 mg/mg High 10-20 [facility] Basic Metabolic Profile (BMP )on 07-12-2025 BUN/CRE 22.3 RATIO High 10-20 [facility] Comment on above: Performed By: #### L 500.2500 ####[facility] [address] [place], [address] Calcium [Mass/Vol] 10.0 mg/dL Normal 7.6-11.0 [facility] Comment on above: Performed By: #### L 500.2500 ####[facility] [address] [place], [address] Chloride [Moles/Vol] 106 mmol/L Normal 98-108 [facility] Comment on above: Performed By: #### L 500.2500 ####[facility] [address] [place], [address] CO2 [Moles/Vol] 23.0 mmol/L Normal 21.0-32.0 [facility] Comment on above: Performed By: #### L 500.2500 ####[facility] [address] [place], [address] Creatinine [Mass/Vol] 2.41 mg/dL High 0.70-1.20 [facility] Comment on above: Performed By: #### L 500.2500 ####[facility] [address] [place], [address] GAP 11 Normal 5-15 [facility] Comment on above: Performed By: #### L 500.2500 ####[facility] [address] [place], [address] GFR/1.73 sq M.predicted among non-blacks MDRD (S/P/Bld) [Vol rate/Area] 27 mL/min/{1.73_m2} Low >60 [facility] Comment on above: Result Comment: mL/m in/1.73m2 CKD-EPI Creatinine Equation (2020) Performed By: #### L 500.2500 ####[facility] [address] [place], [address] Glucose [Mass/Vol] 269 mg/dL High 70-99 [facility] Comment on above: Performed By: #### L 500.2500 ####[facility] [address] [place], [address] Potassium [Moles/Vol] 5.7 mmol/L High 3.3-5.1 [facility] Comment on above: Performed By: #### L 500.2500 ####[facility] [address] [place], [address] Sodium [Moles/Vol] 140 mmol/L Normal 133-145 [facility] Comment on above: Performed By: #### L 500.2500 ####[facility] [address] [place], [address] Urea nitrogen [Mass/Vol] 54 mg/dL High 4-19 [facility] Comment on above: Performed By: #### L 500.2500 ####[facility] [address] [place], [address] Carbon dioxide, total [Moles /volume] in Central venous bloodOrdered By: Angelina Ruiz on 07-12-2025 CO2 [Moles/Vol] 23.0 mmol/L 21.0-32.0 [facility] Chloride assayOrdered By: Vira Ruiz on 07-12-2025 Chloride [Moles/Vol] 106 mmol/L 98-108 [facility] Glomerular filtration rate ( GFR) estimation/1.73 sq m using serum, plasma, or whole bOrdered By: Angelina Ruiz on 07-12-2025 GFR/1.73 sq M.predicted among non-blacks MDRD (S/P/Bld) [Vol rate/Area] 27 mL/min/{1.73_m2} Low >60 [facility] Potassium measurement (mass/ volume)Ordered By: Angelina Ruiz on 07-12-2025 Potassium (Unsp spec) [Mass/Vol] 5.7 mmol/L High 3.3-5.1 [facility] Serum creatinine measurement (mass/volume)Ordered By: Angelina Ruiz on 07-12-2025 Creatinine [Mass/Vol] 2.41 mg/dL High 0.70-1.20 [facility] Serum glucose measurement (m ass/volume)Ordered By: Angelina Ruiz on 07-12-2025 Glucose [Mass/Vol] 269 mg/dL High 70-99 [facility] Serum or plasma calcium makeda urement (mass/volume)Ordered By: Angelina Ruiz on 07-12-2025 Calcium [Mass/Vol] 10.0 mg/dL 7.6-11.0 [facility] Serum or plasma urea nitroge n measurement (mass/volume)Ordered By: Angelina Ruiz on 07-12-2025 Urea nitrogen [Mass/Vol] 54 mg/dL High 4-19 [facility] Sodium levelOrdered By: Rebecca Ruiz on 07-12-2025 Sodium [Moles/Vol] 140 mmol/L 133-145 [facility] Office Visit Reporton 2024 Office Visit Report Normal [facility] Absolute lymphocyte countOrd ered By: Briseyda Sinclair on 06-21-2025 Lymphocytes Auto (Unsp spec) [#/Vol] 1.01 10*3/uL 0.83-4.51 [facility] Anion gap in Serum or Plasma Ordered By: Briseyda Sinclair on 06-21-2025 Anion gap [Moles/Vol] 15 mmol/L - [facility] Automated lymphocyte count a s percentage of total leukocytesOrdered By: Briseyda Sinclair on 06-21-2025 Lymphocytes/100 WBC Auto (Unsp spec) 14.2 % Low 19-41 [facility] BUN/creatinine ratioOrdered By: Briseyda Sinclair on 06-21-2025 Urea nitrogen/Creatinine [Mass ratio] 13.6 mg/mg 10- [facility] Basic Metabolic Profile (BMP )on 06-21-2025 BUN/CRE 13.6 RATIO Normal 10-20 [facility] Comment on above: Performed By: #### L 500.2500, L100.0100 ####[facility] [address] [place], [address] Calcium [Mass/Vol] 9.5 mg/dL Normal 7.6-11.0 [facility] Comment on above: Performed By: #### L 500.2500, L100.0100 ####[facility] [address] [place], [address] Chloride [Moles/Vol] 99 mmol/L Normal 98-108 [facility] Comment on above: Performed By: #### L 500.2500, L100.0100 ####[facility] [address] [place], [address] CO2 [Moles/Vol] 22.3 mmol/L Normal 21.0-32.0 [facility] Comment on above: Performed By: #### L 500.2500, L100.0100 ####[facility] [address] [place], [address] Creatinine [Mass/Vol] 3.08 mg/dL High 0.70-1.20 [facility] Comment on above: Performed By: #### L 500.2500, L100.0100 ####[facility] [address] [place], [address] GAP 15 Normal 5-15 [facility] Comment on above: Performed By: #### L 500.2500, L100.0100 ####[facility] [address] [place], [address] GFR/1.73 sq M.predicted among non-blacks MDRD (S/P/Bld) [Vol rate/Area] 20 mL/min/{1.73_m2} Low >60 [facility] Comment on above: Result Comment: mL/m in/1.73m2 CKD-EPI Creatinine Equation (2020) Performed By: #### L 500.2500, L100.0100 ####[facility] [address] [place], [address] Glucose [Mass/Vol] 643 mg/dL Invalid Interpretation Code 70-99 [facility] Comment on above: Result Comment: Crit ical Result(s) Called at 1007: by: ROLAND YUN.??Results read back by same. Performed By: #### L 500.2500, L100.0100 ####[facility] [address] [place], [address] Potassium [Moles/Vol] 4.6 mmol/L Normal 3.3-5.1 [facility] Comment on above: Performed By: #### L 500.2500, L100.0100 ####[facility] [address] [place], [address] Sodium [Moles/Vol] 137 mmol/L Normal 133-145 [facility] Comment on above: Performed By: #### L 500.2500, L100.0100 ####[facility] [address] [place], [address] Urea nitrogen [Mass/Vol] 42 mg/dL High 4-19 [facility] Comment on above: Performed By: #### L 500.2500, L100.0100 ####[facility] [address] [place], [address] Basophil percentageOrdered B y: Briseyda Sinclair on 06-21-2025 Basophils/100 WBC (Bld) 0.4 % 0-1 [facility] CBC W/Diff, Automatedon Absolute Lymph 1.01 X10 3/uL Normal 0.83-4.51 [facility] Comment on above: Performed By: #### L 500.2500, L100.0100 ####[facility] [address] [place], [address] Absolute Neut 5.2 X10 3/uL Normal 2.0-7.7 [facility] Comment on above: Performed By: #### L 500.2500, L100.0100 ####[facility] [address] [place], [address] Basophils/100 WBC (Bld) 0.4 % Normal 0-1 [facility] Comment on above: Performed By: #### L 500.2500, L100.0100 ####[facility] [address] [place], [address] Eosinophils/100 WBC (Bld) 4.2 % Normal 0-5 [facility] Comment on above: Performed By: #### L 500.2500, L100.0100 ####[facility] [address] [place], [address] Erythrocyte distribution width (RBC) [Ratio] 12.9 % Normal 11.6-14.6 [facility] Comment on above: Performed By: #### L 500.2500, L100.0100 ####[facility] [address] [place], [address] Hematocrit (Bld) [Volume fraction] 26.3 % Low 40-54 [facility] Comment on above: Performed By: #### L 500.2500, L100.0100 ####[facility] [address] [place], [address] Hemoglobin (Bld) [Mass/Vol] 9.2 g/dL Low 13.0-16.5 [facility] Comment on above: Performed By: #### L 500.2500, L100.0100 ####[facility] [address] [place], [address] IG% 0.600 Normal 0.0-0.9 [facility] Comment on above: Result Comment: IG% - Immature Granulocytes (promyelocytes, myelocytes andmetamyelocytes) > 1% indicates that a LEFT SHIFT is Present. Performed By: #### L 500.2500, L100.0100 ####[facility] [address] [place], [address] Lymphocytes/100 WBC (Bld) 14.2 % Low 19-41 [facility] Comment on above: Performed By: #### L 500.2500, L100.0100 ####[facility] [address] [place], [address] MCH (RBC) [Entitic mass] 32.3 pg High 27.0-32.0 [facility] Comment on above: Performed By: #### L 500.2500, L100.0100 ####[facility] [address] [place], [address] MCHC (RBC) [Mass/Vol] 35.0 g/dL Normal 32-36 [facility] Comment on above: Performed By: #### L 500.2500, L100.0100 ####[facility] [address] [place], [address] MCV (RBC) [Entitic vol] 92.3 fL Normal 80-94 [facility] Comment on above: Performed By: #### L 500.2500, L100.0100 ####[facility] [address] [place], [address] Monocytes/100 WBC (Bld) 7.3 % Normal 0-10 [facility] Comment on above: Performed By: #### L 500.2500, L100.0100 ####[facility] [address] [place], [address] Neutrophils/100 WBC (Bld) 73.3 % High 47-70 [facility] Comment on above: Performed By: #### L 500.2500, L100.0100 ####[facility] [address] [place], [address] Nucleated RBC (Bld) [#/Vol] 0 10*3/uL Normal 0-5 [facility] Comment on above: Performed By: #### L 500.2500, L100.0100 ####[facility] [address] [place], [address] Platelet mean volume (Bld) [Entitic vol] 9.5 fL Normal 6.2-12.0 [facility] Comment on above: Performed By: #### L 500.2500, L100.0100 ####[facility] [address] [place], [address] Platelets (Bld) [#/Vol] 334 10*3/uL Normal 150-450 [facility] Comment on above: Performed By: #### L 500.2500, L100.0100 ####[facility] [address] [place], [address] RBC (Bld) [#/Vol] 2.85 10*6/uL Low 4.6-6.2 [facility] Comment on above: Performed By: #### L 500.2500, L100.0100 ####[facility] [address] [place], [address] RDW SD 43.2 fl Normal 35.1-43.9 [facility] Comment on above: Performed By: #### L 500.2500, L100.0100 ####[facility] [address] [place], [address] WBC (Bld) [#/Vol] 7.1 10*3/uL Normal 4.4-11.0 [facility] Comment on above: Performed By: #### L 500.2500, L100.0100 ####[facility] [address] [place], [address] Carbon dioxide, total [Moles /volume] in Central venous bloodOrdered By: Briseyda Sinclair on 06-21-2025 CO2 [Moles/Vol] 22.3 mmol/L 21.0-32.0 [facility] Chloride assayOrdered By: Marcie Sinclair on 06-21-2025 Chloride [Moles/Vol] 99 mmol/L 98-108 [facility] Eosinophil percentageOrdered By: Briseyda Sinclair on 06-21-2025 Eosinophils/100 WBC (Bld) 4.2 % 0-5 [facility] Erythrocyte distribution wid th ratioOrdered By: Briseyda Sinclair on 06-21-2025 Erythrocyte distribution width (RBC) [Ratio] 12.9 % 11.6-14.6 [facility] Erythrocyte distribution wid th standard deviationOrdered By: Briseyda Sinclair on 06-21-2025 Erythrocyte distribution width (RBC) [Ratio] 43.2 fl 35.1-43.9 [facility] Glomerular filtration rate ( GFR) estimation/1.73 sq m using serum, plasma, or whole bOrdered By: Briseyda Sinclair on 06-21-2025 GFR/1.73 sq M.predicted among non-blacks MDRD (S/P/Bld) [Vol rate/Area] 20 mL/min/{1.73_m2} Low >60 [facility] Hematocrit Auto (Bld) [Volum e fraction]Ordered By: Briseyda Sinclair on 06-21-2025 Hematocrit (Bld) [Volume fraction] 26.3 % Low 40-54 [facility] Hemoglobin measurementOrdere d By: Briseyda Sinclair on 06-21-2025 Hemoglobin (Bld) [Mass/Vol] 9.2 g/dL Low 13.0-16.5 [facility] Immature granulocytes/100 WB C Auto (Bld)Ordered By: Briseyda Sinclair on 06-21-2025 Immature granulocytes/100 WBC (Bld) 0.600 % 0.0-0.9 [facility] MCV (mean corpuscular volume ) determinationOrdered By: Briseyda Sinclair on 06-21-2025 MCV (RBC) [Entitic vol] 92.3 fL 80-94 [facility] MR/BMS.IMBon 06-21-2025 MR/BMS.IMB Normal [facility] Mean corpuscular hemoglobin (MCH) determinationOrdered By: Briseyda Sinclair on 06-21-2025 MCH (RBC) [Entitic mass] 32.3 pg High 27.0-32.0 [facility] Monocyte percentageOrdered B y: Briseyda Sinclair on 06-21-2025 Monocytes/100 WBC (Bld) 7.3 % 0-10 [facility] Neutrophil percentageOrdered By: Briseyda Sinclair on 06-21-2025 Neutrophils/100 WBC (Bld) 73.3 % High 47-70 [facility] Platelet countOrdered By: Marcie Sinclair on 06-21-2025 Platelets (Bld) [#/Vol] 334 10*3/uL 150-450 [facility] Potassium measurement (mass/ volume)Ordered By: Briseyda Sinclair on 06-21-2025 Potassium (Unsp spec) [Mass/Vol] 4.6 mmol/L 3.3-5.1 [facility] RBC Auto (Bld) [#/Vol]Ordere d By: Briseyda Sinclair on 06-21-2025 RBC (Bld) [#/Vol] 2.85 10*6/uL Low 4.6-6.2 [facility] Serum creatinine measurement (mass/volume)Ordered By: Briseyda Sinclair on 06-21-2025 Creatinine [Mass/Vol] 3.08 mg/dL High 0.70-1.20 [facility] Serum glucose measurement (m ass/volume)Ordered By: Briseyda Sinclair on 06-21-2025 Glucose [Mass/Vol] 643 mg/dL Critically high 70-99 [facility] Serum or plasma calcium makeda urement (mass/volume)Ordered By: Briseyda Sinclair on 06-21-2025 Calcium [Mass/Vol] 9.5 mg/dL 7.6-11.0 [facility] Serum or plasma urea nitroge n measurement (mass/volume)Ordered By: Briseyad Sinclair on 06-21-2025 Urea nitrogen [Mass/Vol] 42 mg/dL High 4-19 [facility] Sodium levelOrdered By: Amita Sinclair on 06-21-2025 Sodium [Moles/Vol] 137 mmol/L 133-145 [facility] White blood cell (WBC) count Ordered By: Briseyda Sinclair on 06-21-2025 WBC (Bld) [#/Vol] 7.1 10*3/uL 4.4-11.0 [facility] Basic Metabolic Profile (BMP )on 06-17-2025 BUN Normal 4-19 [facility] Comment on above: Result Comment: Canc elled via OM: Order cancelled - Patient discharged Performed By: #### L 100.0100, L500.2500 ####[facility] [address] [place], [address] BUN/CRE Normal 10-20 [facility] Comment on above: Result Comment: Canc elled via OM: Order cancelled - Patient discharged Performed By: #### L 100.0100, L500.2500 ####[facility] [address] [place], [address] Calcium Normal 7.6-11.0 [facility] Comment on above: Result Comment: Canc elled via OM: Order cancelled - Patient discharged Performed By: #### L 100.0100, L500.2500 ####[facility] [address] [place], [address] CL Normal 98-108 [facility] Comment on above: Result Comment: Canc elled via OM: Order cancelled - Patient discharged Performed By: #### L 100.0100, L500.2500 ####[facility] [address] [place], [address] CO2 Normal 21.0-32.0 [facility] Comment on above: Result Comment: Canc elled via OM: Order cancelled - Patient discharged Performed By: #### L 100.0100, L500.2500 ####[facility] [address] [place], [address] CREAT,SERUM Normal 0.70-1.20 [facility] Comment on above: Result Comment: Canc elled via OM: Order cancelled - Patient discharged Performed By: #### L 100.0100, L500.2500 ####[facility] [address] [place], [address] eGFR Normal >60 [facility] Comment on above: Result Comment: Canc elled via OM: Order cancelled - Patient discharged Performed By: #### L 100.0100, L500.2500 ####[facility] [address] [place], [address] GAP Normal 5-15 [facility] Comment on above: Result Comment: Canc elled via OM: Order cancelled - Patient discharged Performed By: #### L 100.0100, L500.2500 ####[facility] [address] [place], [address] GLU Normal 70-99 [facility] Comment on above: Result Comment: Canc elled via OM: Order cancelled - Patient discharged Performed By: #### L 100.0100, L500.2500 ####[facility] [address] [place], [address] Potassium Normal 3.3-5.1 [facility] Comment on above: Result Comment: Canc elled via OM: Order cancelled - Patient discharged Performed By: #### L 100.0100, L500.2500 ####[facility] [address] [place], [address] Basic Metabolic Profile (BMP) Normal 133-145 [facility] Comment on above: Result Comment: Canc elled via OM: Order cancelled - Patient discharged Performed By: #### L 100.0100, L500.2500 ####[facility] [address] [place], [address] CBC W/Diff, Automatedon 10-0 Absolute Neut Normal 2.0-7.7 [facility] Comment on above: Result Comment: Canc elled via OM: Order cancelled - Patient discharged Performed By: #### L 100.0100, L500.2500 ####[facility] [address] [place], [address] HCT Normal 40-54 [facility] Comment on above: Result Comment: Canc elled via OM: Order cancelled - Patient discharged Performed By: #### L 100.0100, L500.2500 ####[facility] [address] [place], [address] HGB Normal 13.0-16.5 [facility] Comment on above: Result Comment: Canc elled via OM: Order cancelled - Patient discharged Performed By: #### L 100.0100, L500.2500 ####[facility] [address] [place], [address] MCH Normal 27.0-32.0 [facility] Comment on above: Result Comment: Canc elled via OM: Order cancelled - Patient discharged Performed By: #### L 100.0100, L500.2500 ####[facility] [address] [place], [address] MCHC Normal 32-36 [facility] Comment on above: Result Comment: Canc elled via OM: Order cancelled - Patient discharged Performed By: #### L 100.0100, L500.2500 ####[facility] [address] [place], [address] MCV Normal 80-94 [facility] Comment on above: Result Comment: Canc elled via OM: Order cancelled - Patient discharged Performed By: #### L 100.0100, L500.2500 ####[facility] [address] [place], [address] NEUT% Normal 47-70 [facility] Comment on above: Result Comment: Canc elled via OM: Order cancelled - Patient discharged Performed By: #### L 100.0100, L500.2500 ####[facility] [address] [place], [address] PLT Normal 150-450 [facility] Comment on above: Result Comment: Canc elled via OM: Order cancelled - Patient discharged Performed By: #### L 100.0100, L500.2500 ####[facility] [address] [place], [address] RBC Normal 4.6-6.2 [facility] Comment on above: Result Comment: Canc elled via OM: Order cancelled - Patient discharged Performed By: #### L 100.0100, L500.2500 ####[facility] [address] [place], [address] RDW CV Normal 11.6-14.6 [facility] Comment on above: Result Comment: Canc elled via OM: Order cancelled - Patient discharged Performed By: #### L 100.0100, L500.2500 ####[facility] [address] [place], [address] RDW SD Normal 35.1-43.9 [facility] Comment on above: Result Comment: Canc elled via OM: Order cancelled - Patient discharged Performed By: #### L 100.0100, L500.2500 ####[facility] [address] [place], [address] WBC Normal 4.4-11.0 [facility] Comment on above: Result Comment: Canc elled via OM: Order cancelled - Patient discharged Performed By: #### L 100.0100, L500.2500 ####[facility] [address] [place], [address] Basic Metabolic Profile (BMP )on 06-16-2025 BUN Normal 4-19 [facility] Comment on above: Result Comment: Canc elled via OM: Order cancelled - Patient discharged Performed By: #### L 100.0100, L500.2500 ####[facility] [address] [place], [address] BUN/CRE Normal 10-20 [facility] Comment on above: Result Comment: Canc elled via OM: Order cancelled - Patient discharged Performed By: #### L 100.0100, L500.2500 ####[facility] [address] [place], [address] Calcium Normal 7.6-11.0 [facility] Comment on above: Result Comment: Canc elled via OM: Order cancelled - Patient discharged Performed By: #### L 100.0100, L500.2500 ####[facility] [address] [place], [address] CL Normal 98-108 [facility] Comment on above: Result Comment: Canc elled via OM: Order cancelled - Patient discharged Performed By: #### L 100.0100, L500.2500 ####[facility] [address] [place], [address] CO2 Normal 21.0-32.0 [facility] Comment on above: Result Comment: Canc elled via OM: Order cancelled - Patient discharged Performed By: #### L 100.0100, L500.2500 ####[facility] [address] [place], [address] CREAT,SERUM Normal 0.70-1.20 [facility] Comment on above: Result Comment: Canc elled via OM: Order cancelled - Patient discharged Performed By: #### L 100.0100, L500.2500 ####[facility] [address] [place], [address] eGFR Normal >60 [facility] Comment on above: Result Comment: Canc elled via OM: Order cancelled - Patient discharged Performed By: #### L 100.0100, L500.2500 ####[facility] [address] [place], [address] GAP Normal 5-15 [facility] Comment on above: Result Comment: Canc elled via OM: Order cancelled - Patient discharged Performed By: #### L 100.0100, L500.2500 ####[facility] [address] [place], [address] GLU Normal 70-99 [facility] Comment on above: Result Comment: Canc elled via OM: Order cancelled - Patient discharged Performed By: #### L 100.0100, L500.2500 ####[facility] [address] [place], [address] Potassium Normal 3.3-5.1 [facility] Comment on above: Result Comment: Canc elled via OM: Order cancelled - Patient discharged Performed By: #### L 100.0100, L500.2500 ####[facility] [address] [place], [address] Basic Metabolic Profile (BMP) Normal 133-145 [facility] Comment on above: Result Comment: Canc elled via OM: Order cancelled - Patient discharged Performed By: #### L 100.0100, L500.2500 ####[facility] [address] [place], [address] CBC W/Diff, Automatedon 10-0 Absolute Neut Normal 2.0-7.7 [facility] Comment on above: Result Comment: Canc elled via OM: Order cancelled - Patient discharged Performed By: #### L 100.0100, L500.2500 ####[facility] [address] [place], [address] HCT Normal 40-54 [facility] Comment on above: Result Comment: Canc elled via OM: Order cancelled - Patient discharged Performed By: #### L 100.0100, L500.2500 ####[facility] [address] [place], [address] HGB Normal 13.0-16.5 [facility] Comment on above: Result Comment: Canc elled via OM: Order cancelled - Patient discharged Performed By: #### L 100.0100, L500.2500 ####[facility] [address] [place], [address] MCH Normal 27.0-32.0 [facility] Comment on above: Result Comment: Canc elled via OM: Order cancelled - Patient discharged Performed By: #### L 100.0100, L500.2500 ####[facility] [address] [place], [address] MCHC Normal 32-36 [facility] Comment on above: Result Comment: Canc elled via OM: Order cancelled - Patient discharged Performed By: #### L 100.0100, L500.2500 ####[facility] [address] [place], [address] MCV Normal 80-94 [facility] Comment on above: Result Comment: Canc elled via OM: Order cancelled - Patient discharged Performed By: #### L 100.0100, L500.2500 ####[facility] [address] [place], [address] NEUT% Normal 47-70 [facility] Comment on above: Result Comment: Canc elled via OM: Order cancelled - Patient discharged Performed By: #### L 100.0100, L500.2500 ####[facility] [address] [place], [address] PLT Normal 150-450 [facility] Comment on above: Result Comment: Canc elled via OM: Order cancelled - Patient discharged Performed By: #### L 100.0100, L500.2500 ####[facility] [address] [place], [address] RBC Normal 4.6-6.2 [facility] Comment on above: Result Comment: Canc elled via OM: Order cancelled - Patient discharged Performed By: #### L 100.0100, L500.2500 ####[facility] [address] [place], [address] RDW CV Normal 11.6-14.6 [facility] Comment on above: Result Comment: Canc elled via OM: Order cancelled - Patient discharged Performed By: #### L 100.0100, L500.2500 ####[facility] [address] [place], [address] RDW SD Normal 35.1-43.9 [facility] Comment on above: Result Comment: Canc elled via OM: Order cancelled - Patient discharged Performed By: #### L 100.0100, L500.2500 ####[facility] [address] [place], [address] WBC Normal 4.4-11.0 [facility] Comment on above: Result Comment: Canc elled via OM: Order cancelled - Patient discharged Performed By: #### L 100.0100, L500.2500 ####[facility] [address] [place], [address] Absolute lymphocyte countOrd ered By: Fawad Bates on 06-15-2025 Lymphocytes Auto (Unsp spec) [#/Vol] 1.29 10*3/uL 0.83-4.51 [facility] Anion gap in Serum or Plasma Ordered By: Fawad Bates on 06-15-2025 Anion gap [Moles/Vol] 13 mmol/L 5-15 [facility] Automated lymphocyte count a s percentage of total leukocytesOrdered By: Fawad Bates on 06-15-2025 Lymphocytes/100 WBC Auto (Unsp spec) 19.8 % 19-41 [facility] BUN/creatinine ratioOrdered By: Fawda Bates on 06-15-2025 Urea nitrogen/Creatinine [Mass ratio] 14.2 mg/mg 10-20 [facility] Basic Metabolic Profile (BMP )on 06-15-2025 BUN Normal 4-19 [facility] Comment on above: Result Comment: OK T O CANCEL PER PAMELA CHARGE NURSE, SHE SAID NOT NEEDEDSINCE ONE WAS ALREADY COMPLETED TODAY Performed By: #### L 500.2500, L100.0100 ####[facility] [address] [place], [address] BUN/CRE Normal 10-20 [facility] Comment on above: Result Comment: OK T O CANCEL PER PAMELA CHARGE NURSE, SHE SAID NOT NEEDEDSINCE ONE WAS ALREADY COMPLETED TODAY Performed By: #### L 500.2500, L100.0100 ####[facility] [address] [place], [address] Calcium Normal 7.6-11.0 [facility] Comment on above: Result Comment: OK T O CANCEL PER PAMELA CHARGE NURSE, SHE SAID NOT NEEDEDSINCE ONE WAS ALREADY COMPLETED TODAY Performed By: #### L 500.2500, L100.0100 ####[facility] [address] [place], [address] CL Normal 98-108 [facility] Comment on above: Result Comment: OK T O CANCEL PER PAMELA CHARGE NURSE, SHE SAID NOT NEEDEDSINCE ONE WAS ALREADY COMPLETED TODAY Performed By: #### L 500.2500, L100.0100 ####[facility] [address] [place], [address] CO2 Normal 21.0-32.0 [facility] Comment on above: Result Comment: OK T O CANCEL PER PAMELA CHARGE NURSE, SHE SAID NOT NEEDEDSINCE ONE WAS ALREADY COMPLETED TODAY Performed By: #### L 500.2500, L100.0100 ####[facility] [address] [place], [address] CREAT,SERUM Normal 0.70-1.20 [facility] Comment on above: Result Comment: OK T O CANCEL PER PAMELA CHARGE NURSE, SHE SAID NOT NEEDEDSINCE ONE WAS ALREADY COMPLETED TODAY Performed By: #### L 500.2500, L100.0100 ####[facility] [address] [place], [address] eGFR Normal >60 [facility] Comment on above: Result Comment: OK T O CANCEL PER PAMELA CHARGE NURSE, SHE SAID NOT NEEDEDSINCE ONE WAS ALREADY COMPLETED TODAY Performed By: #### L 500.2500, L100.0100 ####[facility] [address] [place], [address] GAP Normal 5-15 [facility] Comment on above: Result Comment: OK T O CANCEL PER PAMELA CHARGE NURSE, SHE SAID NOT NEEDEDSINCE ONE WAS ALREADY COMPLETED TODAY Performed By: #### L 500.2500, L100.0100 ####[facility] [address] [place], [address] GLU Normal 70-99 [facility] Comment on above: Result Comment: OK T O CANCEL PER PAMELA CHARGE NURSE, SHE SAID NOT NEEDEDSINCE ONE WAS ALREADY COMPLETED TODAY Performed By: #### L 500.2500, L100.0100 ####[facility] [address] [place], [address] Potassium Normal 3.3-5.1 [facility] Comment on above: Result Comment: OK T O CANCEL PER PAMELA CHARGE NURSE, SHE SAID NOT NEEDEDSINCE ONE WAS ALREADY COMPLETED TODAY Performed By: #### L 500.2500, L100.0100 ####[facility] [address] [place], [address] Basic Metabolic Profile (BMP) Normal 133-145 [facility] Comment on above: Result Comment: OK T O CANCEL PER PAMELA CHARGE NURSE, SHE SAID NOT NEEDEDSINCE ONE WAS ALREADY COMPLETED TODAY Performed By: #### L 500.2500, L100.0100 ####[facility] [address] [place], [address] BUN/CRE 14.2 RATIO Normal 10-20 [facility] Comment on above: Performed By: #### L 500.2500 ####[facility] [address] [place], [address] Calcium [Mass/Vol] 9.0 mg/dL Normal 7.6-11.0 [facility] Comment on above: Performed By: #### L 500.2500 ####[facility] [address] [place], [address] Chloride [Moles/Vol] 111 mmol/L High 98-108 [facility] Comment on above: Performed By: #### L 500.2500 ####[facility] [address] [place], [address] CO2 [Moles/Vol] 22.5 mmol/L Normal 21.0-32.0 [facility] Comment on above: Performed By: #### L 500.2500 ####[facility] [address] [place], [address] Creatinine [Mass/Vol] 4.01 mg/dL High 0.70-1.20 [facility] Comment on above: Performed By: #### L 500.2500 ####[facility] [address] [place], [address] ECRCL 17.19 ml/min Low 50-250 [facility] Comment on above: Performed By: #### L 500.2500 ####[facility] [address] [place], [address] GAP 13 Normal 5-15 [facility] Comment on above: Performed By: #### L 500.2500 ####[facility] [address] [place], [address] GFR/1.73 sq M.predicted among non-blacks MDRD (S/P/Bld) [Vol rate/Area] 15 mL/min/{1.73_m2} Low >60 [facility] Comment on above: Result Comment: mL/m in/1.73m2 CKD-EPI Creatinine Equation (2020) Performed By: #### L 500.2500 ####[facility] [address] [place], [address] Glucose [Mass/Vol] 246 mg/dL High 70-99 [facility] Comment on above: Performed By: #### L 500.2500 ####[facility] [address] [place], [address] Potassium [Moles/Vol] 4.7 mmol/L Normal 3.3-5.1 [facility] Comment on above: Performed By: #### L 500.2500 ####[facility] [address] [place], [address] Sodium [Moles/Vol] 147 mmol/L High 133-145 [facility] Comment on above: Performed By: #### L 500.2500 ####[facility] [address] [place], [address] Urea nitrogen [Mass/Vol] 57 mg/dL High 4-19 [facility] Comment on above: Performed By: #### L 500.2500 ####[facility] [address] [place], [address] Basophil percentageOrdered B y: Fawadganga Bates on 06-15-2025 Basophils/100 WBC (Bld) 0.3 % 0-1 [facility] Bedside Glucoseon 06-15-2025 FINGERSTICK GLU 290 mg/dL High 74-106 [facility] Comment on above: Result Comment: ANGELA GEMENT OF PATIENT CARE PER NURSING PROTOCOL Performed By: #### L 501.080 ####[facility] [address] [place], [address] FINGERSTICK GLU 289 mg/dL High 74-106 [facility] Comment on above: Result Comment: ANGELA GEMENT OF PATIENT CARE PER NURSING PROTOCOL Performed By: #### L 501.080 ####[facility] [address] [place], [address] Biopsy/Inj or Needle Placeme nton 06-15-2025 Biopsy/Inj or Needle Placement Normal [facility] CBC W/Diff, Automatedon 09-3 0-2024 Absolute Lymph 1.29 X10 3/uL Normal 0.83-4.51 [facility] Comment on above: Performed By: #### L 500.2500, L100.0100 ####[facility] [address] [place], [address] Absolute Neut 3.9 X10 3/uL Normal 2.0-7.7 [facility] Comment on above: Performed By: #### L 500.2500, L100.0100 ####[facility] [address] [place], [address] Basophils/100 WBC (Bld) 0.3 % Normal 0-1 [facility] Comment on above: Performed By: #### L 500.2500, L100.0100 ####[facility] [address] [place], [address] Eosinophils/100 WBC (Bld) 6.9 % High 0-5 [facility] Comment on above: Performed By: #### L 500.2500, L100.0100 ####[facility] [address] [place], [address] Erythrocyte distribution width (RBC) [Ratio] 12.8 % Normal 11.6-14.6 [facility] Comment on above: Performed By: #### L 500.2500, L100.0100 ####[facility] [address] [place], [address] Hematocrit (Bld) [Volume fraction] 25.1 % Low 40-54 [facility] Comment on above: Performed By: #### L 500.2500, L100.0100 ####[facility] [address] [place], [address] Hemoglobin (Bld) [Mass/Vol] 8.2 g/dL Low 13.0-16.5 [facility] Comment on above: Performed By: #### L 500.2500, L100.0100 ####[facility] [address] [place], [address] IG% 0.500 Normal 0.0-0.9 [facility] Comment on above: Result Comment: IG% - Immature Granulocytes (promyelocytes, myelocytes andmetamyelocytes) > 1% indicates that a LEFT SHIFT is Present. Performed By: #### L 500.2500, L100.0100 ####[facility] [address] [place], [address] Lymphocytes/100 WBC (Bld) 19.8 % Normal 19-41 [facility] Comment on above: Performed By: #### L 500.2500, L100.0100 ####[facility] [address] [place], [address] MCH (RBC) [Entitic mass] 31.8 pg Normal 27.0-32.0 [facility] Comment on above: Performed By: #### L 500.2500, L100.0100 ####[facility] [address] [place], [address] MCHC (RBC) [Mass/Vol] 32.7 g/dL Normal 32-36 [facility] Comment on above: Performed By: #### L 500.2500, L100.0100 ####[facility] [address] [place], [address] MCV (RBC) [Entitic vol] 97.3 fL High 80-94 [facility] Comment on above: Performed By: #### L 500.2500, L100.0100 ####[facility] [address] [place], [address] Monocytes/100 WBC (Bld) 13.2 % High 0-10 [facility] Comment on above: Performed By: #### L 500.2500, L100.0100 ####[facility] [address] [place], [address] Neutrophils/100 WBC (Bld) 59.3 % Normal 47-70 [facility] Comment on above: Performed By: #### L 500.2500, L100.0100 ####[facility] [address] [place], [address] Nucleated RBC (Bld) [#/Vol] 0 10*3/uL Normal 0-5 [facility] Comment on above: Performed By: #### L 500.2500, L100.0100 ####[facility] [address] [place], [address] Platelet mean volume (Bld) [Entitic vol] 10.3 fL Normal 6.2-12.0 [facility] Comment on above: Performed By: #### L 500.2500, L100.0100 ####[facility] [address] [place], [address] Platelets (Bld) [#/Vol] 348 10*3/uL Normal 150-450 [facility] Comment on above: Performed By: #### L 500.2500, L100.0100 ####[facility] [address] [place], [address] RBC (Bld) [#/Vol] 2.58 10*6/uL Low 4.6-6.2 [facility] Comment on above: Performed By: #### L 500.2500, L100.0100 ####[facility] [address] [place], [address] RDW SD 45.3 fl High 35.1-43.9 [facility] Comment on above: Performed By: #### L 500.2500, L100.0100 ####[facility] [address] [place], [address] WBC (Bld) [#/Vol] 6.5 10*3/uL Normal 4.4-11.0 [facility] Comment on above: Performed By: #### L 500.2500, L100.0100 ####[facility] [address] [place], [address] Carbon dioxide, total [Moles /volume] in Central venous bloodOrdered By: Fawad Bates on 06-15-2025 CO2 [Moles/Vol] 22.5 mmol/L 21.0-32.0 [facility] Chloride assayOrdered By: Shira Bates on 06-15-2025 Chloride [Moles/Vol] 111 mmol/L High 98-108 [facility] Discharge Instructionon 05-19 Discharge Instruction Normal [facility] Electrocardiogram reportOrde red By: Jeffrey Lord on 06-15-2025 EKG study [facility] Work Phone: [phone] Eosinophil percentageOrdered By: Fawad Bates on 06-15-2025 Eosinophils/100 WBC (Bld) 6.9 % High 0-5 [facility] Erythrocyte distribution wid th ratioOrdered By: Fawad Bates on 06-15-2025 Erythrocyte distribution width (RBC) [Ratio] 12.8 % 11.6-14.6 [facility] Erythrocyte distribution wid th standard deviationOrdered By: Fawad Bates on 06-15-2025 Erythrocyte distribution width (RBC) [Ratio] 45.3 fl High 35.1-43.9 [facility] Glomerular filtration rate ( GFR) estimation/1.73 sq m using serum, plasma, or whole bOrdered By: Fawad Bates on 06-15-2025 GFR/1.73 sq M.predicted among non-blacks MDRD (S/P/Bld) [Vol rate/Area] 15 mL/min/{1.73_m2} Low >60 [facility] Glucose measurement at bedsi deOrdered By: Fawad Bates on 06-15-2025 Glucose [Mass/Vol] 290 mg/dL High 74-106 [facility] Hematocrit Auto (Bld) [Volum e fraction]Ordered By: Fawad Bates on 06-15-2025 Hematocrit (Bld) [Volume fraction] 25.1 % Low 40-54 [facility] Hemoglobin measurementOrdere d By: Fawad Bates on 06-15-2025 Hemoglobin (Bld) [Mass/Vol] 8.2 g/dL Low 13.0-16.5 [facility] Immature granulocytes/100 WB C Auto (Bld)Ordered By: Fawad Bates on 06-15-2025 Immature granulocytes/100 WBC (Bld) 0.500 % 0.0-0.9 [facility] L350.1810on 06-15-2025 Path [facility] PATHOLOGY REPORT Normal [facility] Comment on above: Order Comment: RESUL TS FAXED TO DR SANTIAGO 06/18/25 8016 T[address] Morfin. Result Comment: Spec imen sent to [facility] Department.Report available in EMR. Performed By: #### L 350.1810 ####[facility] [address] [place], [address] MCV (mean corpuscular volume ) determinationOrdered By: Fawad Bates on 06-15-2025 MCV (RBC) [Entitic vol] 97.3 fL High 80-94 [facility] Mean corpuscular hemoglobin (MCH) determinationOrdered By: Fawad Bates on 06-15-2025 MCH (RBC) [Entitic mass] 31.8 pg 27.0-32.0 [facility] Monocyte percentageOrdered B y: Fawad Bates on 06-15-2025 Monocytes/100 WBC (Bld) 13.2 % High 0-10 [facility] Neutrophil percentageOrdered By: Fawad Bates on 06-15-2025 Neutrophils/100 WBC (Bld) 59.3 % 47-70 [facility] Platelet countOrdered By: Shira Bates on 06-15-2025 Platelets (Bld) [#/Vol] 348 10*3/uL 150-450 [facility] Potassium measurement (mass/ volume)Ordered By: Fawad Bates on 06-15-2025 Potassium (Unsp spec) [Mass/Vol] 4.7 mmol/L 3.3-5.1 [facility] RBC Auto (Bld) [#/Vol]Ordere d By: Fawad Bates on 06-15-2025 RBC (Bld) [#/Vol] 2.58 10*6/uL Low 4.6-6.2 [facility] SURG PATH REQUESTon 06-15-20 Case Report Normal [facility] Comment on above: Result Comment: Surg ical Pathology Report Case: [id number] Authorizing Provider: Tara Vo DO Collected: 06/15/2025 10:00 AM Ordering Location: [facility] Received: 06/16/2025 08:01 AM [facility] Pathologist: Brenda Black MD Specimen: [id number] Performed By: #### S URGP #### [facility] (DEFAULT) [address] [place], [place] [id number] Clinical History A 74-year-old white male with [...] are negative. Blood pressure is 142/73. Normal [facility] Comment on above: Performed By: #### S URGP #### [facility] (DEFAULT) [address] [place] [id number] Gross Description Normal [facility] Comment on above: Result Comment: Rosangela perla from [facility], [place], [place], is a [place] kidney biopsy with two containers labeled with [...] Performed By: #### S URGP #### [facility] (DEFAULT) [address] [place] [address] Microscopic Description Normal [facility] Comment on above: Result Comment: LIGH [...] 3+ in arteries and arterioles Fibrinogen: Negative [place] light chain: 3+ staining in tubular casts [...] their performance characteristics were determined, by the [facility], Department of Pathology. One or [...] identified. Performed By: #### S URGP #### [facility] (DEFAULT) [address] [place] [address] Pathologic Diagnosis Normal [facility] Comment on above: Result Comment: Rosangela fam, [place], biopsy: Mild to moderately advanced chronic renal [...] EDT Performed By: #### S URGP #### [facility] (DEFAULT) [address] [address] Professional Interpretation Performed at: [facility] Comment on above: Result Comment: [facility] For Immediate Release to Patient's MyChart? Yes [address] [address] Performed By: #### S URGP #### [facility] (DEFAULT) [address] [address] Serum creatinine measurement (mass/volume)Ordered By: Fawad Bates on 06-15-2025 Creatinine [Mass/Vol] 4.01 mg/dL High 0.70-1.20 [facility] Serum glucose measurement (m ass/volume)Ordered By: Fawad Bates on 06-15-2025 Glucose [Mass/Vol] 246 mg/dL High 70-99 [facility] Serum or plasma calcium makeda urement (mass/volume)Ordered By: Fawad Bates on 06-15-2025 Calcium [Mass/Vol] 9.0 mg/dL 7.6-11.0 [facility] Serum or plasma urea nitroge n measurement (mass/volume)Ordered By: Fawad Bates on 06-15-2025 Urea nitrogen [Mass/Vol] 57 mg/dL High 4-19 [facility] Sodium levelOrdered By: Aroldo Bates on 06-15-2025 Sodium [Moles/Vol] 147 mmol/L High 133-145 [facility] White blood cell (WBC) count Ordered By: Fawad Bates on 06-15-2025 WBC (Bld) [#/Vol] 6.5 10*3/uL 4.4-11.0 [facility] 12 Lead EKGon 06-14-2025 12 Lead EKG Normal [facility] Activated partial thrombopla stin time (aPTT) in platelet poor plasma by coagulation aOrdered By: Geovanni Pathak on 06-14-2025 aPTT Coag (PPP) [Time] 26.8 s 24.1-36.2 [facility] Basic Metabolic Profile (BMP )on 06-14-2025 BUN/CRE 12.8 RATIO Normal 10-20 [facility] Comment on above: Performed By: #### L 500.2500 ####[facility] [address] [place], [address] Calcium [Mass/Vol] 9.0 mg/dL Normal 7.6-11.0 [facility] Comment on above: Performed By: #### L 500.2500 ####[facility] [address] [place], [address] Chloride [Moles/Vol] 114 mmol/L High 98-108 [facility] Comment on above: Performed By: #### L 500.2500 ####[facility] [address] [place], [address] CO2 [Moles/Vol] 20.5 mmol/L Low 21.0-32.0 [facility] Comment on above: Performed By: #### L 500.2500 ####[facility] [address] [place], [address] Creatinine [Mass/Vol] 5.97 mg/dL High 0.70-1.20 [facility] Comment on above: Performed By: #### L 500.2500 ####[facility] [address] [place], [address] ECRCL 11.76 ml/min Low 50-250 [facility] Comment on above: Performed By: #### L 500.2500 ####[facility] [address] [place], [address] GAP 15 Normal 5-15 [facility] Comment on above: Performed By: #### L 500.2500 ####[facility] [address] [place], [address] GFR/1.73 sq M.predicted among non-blacks MDRD (S/P/Bld) [Vol rate/Area] 9 mL/min/{1.73_m2} Low >60 [facility] Comment on above: Result Comment: mL/m in/1.73m2 CKD-EPI Creatinine Equation (2020) Performed By: #### L 500.2500 ####[facility] [address] [place], [address] Glucose [Mass/Vol] 104 mg/dL High 70-99 [facility] Comment on above: Performed By: #### L 500.2500 ####[facility] [address] [place], [address] Potassium [Moles/Vol] 4.3 mmol/L Normal 3.3-5.1 [facility] Comment on above: Performed By: #### L 500.2500 ####[facility] [address] [place], [address] Sodium [Moles/Vol] 149 mmol/L High 133-145 [facility] Comment on above: Performed By: #### L 500.2500 ####[facility] [address] [place], [address] Urea nitrogen [Mass/Vol] 77 mg/dL High 4-19 [facility] Comment on above: Performed By: #### L 500.2500 ####[facility] [address] [place], [address] Bedside Glucoseon 06-14-2025 FINGERSTICK GLU 344 mg/dL High 74-106 [facility] Comment on above: Result Comment: ANGELA VALDERRAMA OF PATIENT CARE PER NURSING PROTOCOL Performed By: #### L 501.080 ####[facility] [address] [place], [address] FINGERSTICK GLU 162 mg/dL High 74-106 [facility] Comment on above: Result Comment: ANGELA GEMENT OF PATIENT CARE PER NURSING PROTOCOL Performed By: #### L 501.080 ####[facility] [address] [place], [address] FINGERSTICK GLU 129 mg/dL High 74-106 [facility] Comment on above: Result Comment: ANGELA GEMENT OF PATIENT CARE PER NURSING PROTOCOL Performed By: #### L 501.080 ####[facility] [address] [place], [address] CBC W/Diff, Automatedon 09-2 Absolute Lymph 1.38 X10 3/uL Normal 0.83-4.51 [facility] Comment on above: Performed By: #### L 100.0100 ####[facility] [address] [place], [address] Absolute Neut 4.9 X10 3/uL Normal 2.0-7.7 [facility] Comment on above: Performed By: #### L 100.0100 ####[facility] [address] [place], [address] Basophils/100 WBC (Bld) 0.5 % Normal 0-1 [facility] Comment on above: Performed By: #### L 100.0100 ####[facility] [address] [place], [address] Eosinophils/100 WBC (Bld) 6.8 % High 0-5 [facility] Comment on above: Performed By: #### L 100.0100 ####[facility] [address] [place], [address] Erythrocyte distribution width (RBC) [Ratio] 12.7 % Normal 11.6-14.6 [facility] Comment on above: Performed By: #### L 100.0100 ####[facility] [address] [place], [address] Hematocrit (Bld) [Volume fraction] 26.5 % Low 40-54 [facility] Comment on above: Performed By: #### L 100.0100 ####[facility] [address] [place], [address] Hemoglobin (Bld) [Mass/Vol] 8.7 g/dL Low 13.0-16.5 [facility] Comment on above: Performed By: #### L 100.0100 ####[facility] [address] [place], [address] IG% 0.400 Normal 0.0-0.9 [facility] Comment on above: Result Comment: IG% - Immature Granulocytes (promyelocytes, myelocytes andmetamyelocytes) > 1% indicates that a LEFT SHIFT is Present. Performed By: #### L 100.0100 ####[facility] [address] [place], [address] Lymphocytes/100 WBC (Bld) 17.6 % Low 19-41 [facility] Comment on above: Performed By: #### L 100.0100 ####[facility] [address] [place], [address] MCH (RBC) [Entitic mass] 31.3 pg Normal 27.0-32.0 [facility] Comment on above: Performed By: #### L 100.0100 ####[facility] [address] [place], [address] MCHC (RBC) [Mass/Vol] 32.8 g/dL Normal 32-36 [facility] Comment on above: Performed By: #### L 100.0100 ####[facility] [address] [place], [address] MCV (RBC) [Entitic vol] 95.3 fL High 80-94 [facility] Comment on above: Performed By: #### L 100.0100 ####[facility] [address] [place], [address] Monocytes/100 WBC (Bld) 12.5 % High 0-10 [facility] Comment on above: Performed By: #### L 100.0100 ####[facility] [address] [place], [address] Neutrophils/100 WBC (Bld) 62.2 % Normal 47-70 [facility] Comment on above: Performed By: #### L 100.0100 ####[facility] [address] [place], [address] Nucleated RBC (Bld) [#/Vol] 0 10*3/uL Normal 0-5 [facility] Comment on above: Performed By: #### L 100.0100 ####[facility] [address] [place], [address] Platelet mean volume (Bld) [Entitic vol] 9.8 fL Normal 6.2-12.0 [facility] Comment on above: Performed By: #### L 100.0100 ####[facility] [address] [place], [address] Platelets (Bld) [#/Vol] 348 10*3/uL Normal 150-450 [facility] Comment on above: Performed By: #### L 100.0100 ####[facility] [address] [place], [address] RBC (Bld) [#/Vol] 2.78 10*6/uL Low 4.6-6.2 [facility] Comment on above: Performed By: #### L 100.0100 ####[facility] [address] [place], [address] RDW SD 44.7 fl High 35.1-43.9 [facility] Comment on above: Performed By: #### L 100.0100 ####[facility] [address] [place], [address] WBC (Bld) [#/Vol] 7.8 10*3/uL Normal 4.4-11.0 [facility] Comment on above: Performed By: #### L 100.0100 ####[facility] [address] [place], [address] Chest 1 View (Portable)on Chest 1 View (Portable) Normal [facility] L3890.6102on 06-14-2025 HEP B Surf Ag Non-Reactive Normal Nonreactive [facility] Comment on above: Order Comment: Reaso n for Exam: outpatient dialysisComments: can draw during dialysis today Result Comment: Reac tive: Presumptive evidence of HBV. Repeatedly reactivesamples must be confirmed using a neutralization test([employer] HBsAg Confirmatory Test)Non-Reactive: HBsAg not detected; does not exclude thepossibility of exposure to HBV Performed By: #### L 3890.6102 ####[facility] [address] [place], [place], [id number] Laboratory - Microbiology an d Antimicrobial susceptibilityOrdered By: Roland Cox on 06-14-2025 HBV surface Ag Ql (S) Non-Reactive Nonreactive [facility] MR/VVABXYQT5yx 06-14-2025 MR/POSTOPAN2 Normal [facility] Operative Reporton Operative Report Normal [facility] Partial Thromboplast Timeon 06-14-2025 aPTT Coag (Bld) [Time] 26.8 s Normal 24.1-36.2 [facility] Comment on above: Performed By: #### L 300.4310, L300.3900 ####[facility] [address] [place], [address] Prothrombin Time w/INRon INR Coag (PPP) [Relative time] 1.0 {INR} Normal [facility] Comment on above: Performed By: #### L 300.4310, L300.3900 ####[facility] [address] [place], [address] PT Coag (PPP) [Time] 13.5 s Normal 11.7-14.9 [facility] Comment on above: Performed By: #### L 300.4310, L300.3900 ####[facility] [address] [place], [address] Prothrombin timeOrdered By: Geovanni Pathak on 06-14-2025 PT Coag (PPP) [Time] 13.5 s 11.7-14.9 [facility] Basic Metabolic Profile (BMP )on 06-13-2025 BUN/CRE 11.7 RATIO Normal 10-20 [facility] Comment on above: Performed By: #### L 100.0100, L500.2500 ####[facility] [address] [place], [address] Calcium [Mass/Vol] 8.4 mg/dL Normal 7.6-11.0 [facility] Comment on above: Performed By: #### L 100.0100, L500.2500 ####[facility] [address] [place], [address] Chloride [Moles/Vol] 112 mmol/L High 98-108 [facility] Comment on above: Performed By: #### L 100.0100, L500.2500 ####[facility] [address] [place], [address] CO2 [Moles/Vol] 22.0 mmol/L Normal 21.0-32.0 [facility] Comment on above: Performed By: #### L 100.0100, L500.2500 ####[facility] [address] [place], [address] Creatinine [Mass/Vol] 6.16 mg/dL High 0.70-1.20 [facility] Comment on above: Performed By: #### L 100.0100, L500.2500 ####[facility] [address] [place], [address] ECRCL 10.95 ml/min Low 50-250 [facility] Comment on above: Performed By: #### L 100.0100, L500.2500 ####[facility] [address] [place], [address] GAP 14 Normal 5-15 [facility] Comment on above: Performed By: #### L 100.0100, L500.2500 ####[facility] [address] [place], [address] GFR/1.73 sq M.predicted among non-blacks MDRD (S/P/Bld) [Vol rate/Area] 9 mL/min/{1.73_m2} Low >60 [facility] Comment on above: Result Comment: mL/m in/1.73m2 CKD-EPI Creatinine Equation (2020) Performed By: #### L 100.0100, L500.2500 ####[facility] [address] [place], [address] Glucose [Mass/Vol] 108 mg/dL High 70-99 [facility] Comment on above: Performed By: #### L 100.0100, L500.2500 ####[facility] [address] [place], [address] Potassium [Moles/Vol] 3.9 mmol/L Normal 3.3-5.1 [facility] Comment on above: Performed By: #### L 100.0100, L500.2500 ####[facility] [address] [place], [address] Sodium [Moles/Vol] 148 mmol/L High 133-145 [facility] Comment on above: Performed By: #### L 100.0100, L500.2500 ####[facility] [address] [place], [address] Urea nitrogen [Mass/Vol] 72 mg/dL High 4-19 [facility] Comment on above: Performed By: #### L 100.0100, L500.2500 ####[facility] [address] [place], [address] Bedside Glucoseon 06-13-2025 FINGERSTICK GLU 251 mg/dL High 74-106 [facility] Comment on above: Result Comment: ANGELA GEMENT OF PATIENT CARE PER NURSING PROTOCOL Performed By: #### L 501.080 ####[facility] [address] [place], [address] FINGERSTICK GLU 323 mg/dL High 74-106 [facility] Comment on above: Result Comment: ANGELA GEMENT OF PATIENT CARE PER NURSING PROTOCOL Performed By: #### L 501.080 ####[facility] [address] [place], [address] FINGERSTICK GLU 351 mg/dL High 74-106 [facility] Comment on above: Result Comment: ANGELA GEMENT OF PATIENT CARE PER NURSING PROTOCOL Performed By: #### L 501.080 ####[facility] [address] [place], [address] FINGERSTICK GLU 168 mg/dL High 74-106 [facility] Comment on above: Result Comment: ANGELA GEMENT OF PATIENT CARE PER NURSING PROTOCOL Performed By: #### L 501.080 ####[facility] [address] [place], [address] CBC W/Diff, Automatedon - Absolute Neut Normal 2.0-7.7 [facility] Comment on above: Result Comment: Cannevaeh ellnilton via OM: MD Ordered Performed By: #### L 100.0100, L500.2500 ####[facility] [address] [place], [address] HCT Normal 40-54 [facility] Comment on above: Result Comment: Canc elled via OM: MD Ordered Performed By: #### L 100.0100, L500.2500 ####[facility] [address] [place], [address] HGB Normal 13.0-16.5 [facility] Comment on above: Result Comment: Canc elled via OM: MD Ordered Performed By: #### L 100.0100, L500.2500 ####[facility] [address] [place], [address] MCH Normal 27.0-32.0 [facility] Comment on above: Result Comment: Canc elled via OM: MD Ordered Performed By: #### L 100.0100, L500.2500 ####[facility] [address] [place], [address] MCHC Normal 32-36 [facility] Comment on above: Result Comment: Canc elled via OM: MD Ordered Performed By: #### L 100.0100, L500.2500 ####[facility] [address] [place], [address] MCV Normal 80-94 [facility] Comment on above: Result Comment: Canc elled via OM: MD Ordered Performed By: #### L 100.0100, L500.2500 ####[facility] [address] [place], [address] NEUT% Normal 47-70 [facility] Comment on above: Result Comment: Canc elled via OM: MD Ordered Performed By: #### L 100.0100, L500.2500 ####[facility] [address] [place], [address] PLT Normal 150-450 [facility] Comment on above: Result Comment: Canc elled via OM: MD Ordered Performed By: #### L 100.0100, L500.2500 ####[facility] [address] [place], [address] RBC Normal 4.6-6.2 [facility] Comment on above: Result Comment: Canc elled via OM: MD Ordered Performed By: #### L 100.0100, L500.2500 ####[facility] [address] [place], [address] RDW CV Normal 11.6-14.6 [facility] Comment on above: Result Comment: Canc elled via OM: MD Ordered Performed By: #### L 100.0100, L500.2500 ####[facility] [address] [place], [address] RDW SD Normal 35.1-43.9 [facility] Comment on above: Result Comment: Canc elled via OM: MD Ordered Performed By: #### L 100.0100, L500.2500 ####[facility] [address] [place], [address] WBC Normal 4.4-11.0 [facility] Comment on above: Result Comment: Canc elled via OM: MD Ordered Performed By: #### L 100.0100, L500.2500 ####[facility] [address] [place], [address] Consultation - Surgicalon Consultation - Surgical Normal [facility] Prothrombin Time w/INRon INR Coag (PPP) [Relative time] 1.1 {INR} Normal [facility] Comment on above: Performed By: #### L 300.3900 ####[facility] [address] [place], [address] PT Coag (PPP) [Time] 14.1 s Normal 11.7-14.9 [facility] Comment on above: Performed By: #### L 300.3900 ####[facility] [address] [place], [address] Basic Metabolic Profile (BMP )on 06-12-2025 BUN/CRE 11.8 RATIO Normal 10-20 [facility] Comment on above: Performed By: #### L 500.2500, L100.0100 ####[facility] [address] [place], [address] Calcium [Mass/Vol] 8.4 mg/dL Normal 7.6-11.0 [facility] Comment on above: Performed By: #### L 500.2500, L100.0100 ####[facility] [address] [place], [address] Chloride [Moles/Vol] 109 mmol/L High 98-108 [facility] Comment on above: Performed By: #### L 500.2500, L100.0100 ####[facility] [address] [place], [address] CO2 [Moles/Vol] 21.9 mmol/L Normal 21.0-32.0 [facility] Comment on above: Performed By: #### L 500.2500, L100.0100 ####[facility] [address] [place], [address] Creatinine [Mass/Vol] 5.58 mg/dL High 0.70-1.20 [facility] Comment on above: Performed By: #### L 500.2500, L100.0100 ####[facility] [address] [place], [address] ECRCL 12.75 ml/min Low 50-250 [facility] Comment on above: Performed By: #### L 500.2500, L100.0100 ####[facility] [address] [place], [address] GAP 15 Normal 5-15 [facility] Comment on above: Performed By: #### L 500.2500, L100.0100 ####[facility] [address] [place], [address] GFR/1.73 sq M.predicted among non-blacks MDRD (S/P/Bld) [Vol rate/Area] 10 mL/min/{1.73_m2} Low >60 [facility] Comment on above: Result Comment: mL/m in/1.73m2 CKD-EPI Creatinine Equation (2020) Performed By: #### L 500.2500, L100.0100 ####[facility] [address] [place], [address] Glucose [Mass/Vol] 121 mg/dL High 70-99 [facility] Comment on above: Performed By: #### L 500.2500, L100.0100 ####[facility] [address] [place], [address] Potassium [Moles/Vol] 3.9 mmol/L Normal 3.3-5.1 [facility] Comment on above: Performed By: #### L 500.2500, L100.0100 ####[facility] [address] [place], [address] Sodium [Moles/Vol] 146 mmol/L High 133-145 [facility] Comment on above: Performed By: #### L 500.2500, L100.0100 ####[facility] [address] [place], [address] Urea nitrogen [Mass/Vol] 66 mg/dL High 4-19 [facility] Comment on above: Performed By: #### L 500.2500, L100.0100 ####[facility] [address] [place], [address] Bedside Glucoseon 06-12-2025 FINGERSTICK GLU 201 mg/dL High 74-106 [facility] Comment on above: Result Comment: ANGELA VALDERRAMA OF PATIENT CARE PER NURSING PROTOCOL Performed By: #### L 501.080 ####[facility] [address] [place], [address] FINGERSTICK GLU 325 mg/dL High 74-106 [facility] Comment on above: Result Comment: ANGELA GEMENT OF PATIENT CARE PER NURSING PROTOCOL Performed By: #### L 501.080 ####[facility] [address] [place], [address] FINGERSTICK GLU 332 mg/dL High 74-106 [facility] Comment on above: Result Comment: ANGELA GEMENT OF PATIENT CARE PER NURSING PROTOCOL Performed By: #### L 501.080 ####[facility] [address] [place], [address] FINGERSTICK GLU 117 mg/dL High 74-106 [facility] Comment on above: Result Comment: ANGELA GEMENT OF PATIENT CARE PER NURSING PROTOCOL Performed By: #### L 501.080 ####[facility] [address] [place], [address] CBC W/Diff, Automatedon 09-2 -2024 Absolute Lymph 1.09 X10 3/uL Normal 0.83-4.51 [facility] Comment on above: Performed By: #### L 500.2500, L100.0100 ####[facility] [address] [place], [address] Absolute Neut 3.5 X10 3/uL Normal 2.0-7.7 [facility] Comment on above: Performed By: #### L 500.2500, L100.0100 ####[facility] [address] [place], [address] Basophils/100 WBC (Bld) 0.3 % Normal 0-1 [facility] Comment on above: Performed By: #### L 500.2500, L100.0100 ####[facility] [address] [place], [address] Eosinophils/100 WBC (Bld) 6.4 % High 0-5 [facility] Comment on above: Performed By: #### L 500.2500, L100.0100 ####[facility] [address] [place], [address] Erythrocyte distribution width (RBC) [Ratio] 12.6 % Normal 11.6-14.6 [facility] Comment on above: Performed By: #### L 500.2500, L100.0100 ####[facility] [address] [place], [address] Hematocrit (Bld) [Volume fraction] 24.9 % Low 40-54 [facility] Comment on above: Performed By: #### L 500.2500, L100.0100 ####[facility] [address] [place], [address] Hemoglobin (Bld) [Mass/Vol] 8.4 g/dL Low 13.0-16.5 [facility] Comment on above: Performed By: #### L 500.2500, L100.0100 ####[facility] [address] [place], [address] IG% 0.500 Normal 0.0-0.9 [facility] Comment on above: Result Comment: IG% - Immature Granulocytes (promyelocytes, myelocytes andmetamyelocytes) > 1% indicates that a LEFT SHIFT is Present. Performed By: #### L 500.2500, L100.0100 ####[facility] [address] [place], [address] Lymphocytes/100 WBC (Bld) 17.9 % Low 19-41 [facility] Comment on above: Performed By: #### L 500.2500, L100.0100 ####[facility] [address] [place], [address] MCH (RBC) [Entitic mass] 31.5 pg Normal 27.0-32.0 [facility] Comment on above: Performed By: #### L 500.2500, L100.0100 ####[facility] [address] [place], [address] MCHC (RBC) [Mass/Vol] 33.7 g/dL Normal 32-36 [facility] Comment on above: Performed By: #### L 500.2500, L100.0100 ####[facility] [address] [place], [address] MCV (RBC) [Entitic vol] 93.3 fL Normal 80-94 [facility] Comment on above: Performed By: #### L 500.2500, L100.0100 ####[facility] [address] [place], [address] Monocytes/100 WBC (Bld) 16.9 % High 0-10 [facility] Comment on above: Performed By: #### L 500.2500, L100.0100 ####[facility] [address] [place], [address] Neutrophils/100 WBC (Bld) 58.0 % Normal 47-70 [facility] Comment on above: Performed By: #### L 500.2500, L100.0100 ####[facility] [address] [place], [address] Nucleated RBC (Bld) [#/Vol] 0 10*3/uL Normal 0-5 [facility] Comment on above: Performed By: #### L 500.2500, L100.0100 ####[facility] [address] [place], [address] Platelet mean volume (Bld) [Entitic vol] 10.2 fL Normal 6.2-12.0 [facility] Comment on above: Performed By: #### L 500.2500, L100.0100 ####[facility] [address] [place], [address] Platelets (Bld) [#/Vol] 277 10*3/uL Normal 150-450 [facility] Comment on above: Performed By: #### L 500.2500, L100.0100 ####[facility] [address] [place], [address] RBC (Bld) [#/Vol] 2.67 10*6/uL Low 4.6-6.2 [facility] Comment on above: Performed By: #### L 500.2500, L100.0100 ####[facility] [address] [place], [address] RDW SD 43.2 fl Normal 35.1-43.9 [facility] Comment on above: Performed By: #### L 500.2500, L100.0100 ####[facility] [address] [place], [address] WBC (Bld) [#/Vol] 6.1 10*3/uL Normal 4.4-11.0 [facility] Comment on above: Performed By: #### L 500.2500, L100.0100 ####[facility] [address] [place], [address] Basic Metabolic Profile (BMP )on 06-11-2025 BUN/CRE 11.7 RATIO Normal 10-20 [facility] Comment on above: Performed By: #### L 500.2500, L100.0100 ####[facility] [address] [place], [address] Calcium [Mass/Vol] 8.3 mg/dL Normal 7.6-11.0 [facility] Comment on above: Performed By: #### L 500.2500, L100.0100 ####[facility] [address] [place], [address] Chloride [Moles/Vol] 104 mmol/L Normal 98-108 [facility] Comment on above: Performed By: #### L 500.2500, L100.0100 ####[facility] [address] [place], [address] CO2 [Moles/Vol] 21.5 mmol/L Normal 21.0-32.0 [facility] Comment on above: Performed By: #### L 500.2500, L100.0100 ####[facility] [address] [place], [address] Creatinine [Mass/Vol] 7.70 mg/dL Invalid Interpretation Code 0.70-1.20 [facility] Comment on above: Result Comment: Crit ical Result(s) Called at: 06:17 06-11-25 TO CHANI READby: MARAL CORRALES??Results read back by same. Performed By: #### L 500.2500, L100.0100 ####[facility] [address] [place], [address] ECRCL 9.24 ml/min Invalid Interpretation Code 50-250 [facility] Comment on above: Performed By: #### L 500.2500, L100.0100 ####[facility] [address] [place], [address] GAP 17 High 5-15 [facility] Comment on above: Performed By: #### L 500.2500, L100.0100 ####[facility] [address] [place], [address] GFR/1.73 sq M.predicted among non-blacks MDRD (S/P/Bld) [Vol rate/Area] 7 mL/min/{1.73_m2} Low >60 [facility] Comment on above: Result Comment: mL/m in/1.73m2 CKD-EPI Creatinine Equation (2020) Performed By: #### L 500.2500, L100.0100 ####[facility] [address] [place], [address] Glucose [Mass/Vol] 160 mg/dL High 70-99 [facility] Comment on above: Performed By: #### L 500.2500, L100.0100 ####[facility] [address] [place], [address] Potassium [Moles/Vol] 3.8 mmol/L Normal 3.3-5.1 [facility] Comment on above: Performed By: #### L 500.2500, L100.0100 ####[facility] [address] [place], [address] Sodium [Moles/Vol] 143 mmol/L Normal 133-145 [facility] Comment on above: Performed By: #### L 500.2500, L100.0100 ####[facility] [address] [place], [address] Urea nitrogen [Mass/Vol] 90 mg/dL High 4-19 [facility] Comment on above: Performed By: #### L 500.2500, L100.0100 ####[facility] [address] [place], [address] Bedside Glucoseon 06-11-2025 FINGERSTICK GLU 367 mg/dL High 74-106 [facility] Comment on above: Result Comment: ANGELA GEMENT OF PATIENT CARE PER NURSING PROTOCOL Performed By: #### L 501.080 ####[facility] [address] [place], [address] FINGERSTICK GLU 324 mg/dL High 74-106 [facility] Comment on above: Result Comment: ANGELA GEMENT OF PATIENT CARE PER NURSING PROTOCOL Performed By: #### L 501.080 ####[facility] [address] [place], [address] FINGERSTICK GLU 199 mg/dL High 74-106 [facility] Comment on above: Result Comment: ANGELA GEMENT OF PATIENT CARE PER NURSING PROTOCOL Performed By: #### L 501.080 ####[facility] [address] [place], [address] FINGERSTICK GLU 167 mg/dL High 74-106 [facility] Comment on above: Result Comment: ANGELA VALDERRAMA OF PATIENT CARE PER NURSING PROTOCOL Performed By: #### L 501.080 ####[facility] [address] [place], [address] CBC W/Diff, Automatedon 05-18 Absolute Lymph 1.04 X10 3/uL Normal 0.83-4.51 [facility] Comment on above: Performed By: #### L 500.2500, L100.0100 ####[facility] [address] [place], [address] Absolute Neut 3.6 X10 3/uL Normal 2.0-7.7 [facility] [facility] Comment on above: Performed By: #### L 500.2500, L100.0100 ####[facility] [address] [place], [address] Basophils/100 WBC (Bld) 0.3 % Normal 0-1 [facility] Comment on above: Performed By: #### L 500.2500, L100.0100 ####[facility] [address] [place], [address] Eosinophils/100 WBC (Bld) 6.9 % High 0-5 [facility] Comment on above: Performed By: #### L 500.2500, L100.0100 ####[facility] [address] [place], [address] Erythrocyte distribution width (RBC) [Ratio] 12.7 % Normal 11.6-14.6 [facility] Comment on above: Performed By: #### L 500.2500, L100.0100 ####[facility] [address] [place], [address] Hematocrit (Bld) [Volume fraction] 25.4 % Low 40-54 [facility] Comment on above: Performed By: #### L 500.2500, L100.0100 ####[facility] [address] [place], [address] Hemoglobin (Bld) [Mass/Vol] 8.9 g/dL Low 13.0-16.5 [facility] Comment on above: Performed By: #### L 500.2500, L100.0100 ####[facility] [address] [place], [address] IG% 0.200 Normal 0.0-0.9 [facility] Comment on above: Result Comment: IG% - Immature Granulocytes (promyelocytes, myelocytes andmetamyelocytes) > 1% indicates that a LEFT SHIFT is Present. Performed By: #### L 500.2500, L100.0100 ####[facility] [address] [place], [address] Lymphocytes/100 WBC (Bld) 17.4 % Low 19-41 [facility] Comment on above: Performed By: #### L 500.2500, L100.0100 ####[facility] [address] [place], [address] MCH (RBC) [Entitic mass] 31.9 pg Normal 27.0-32.0 [facility] Comment on above: Performed By: #### L 500.2500, L100.0100 ####[facility] [address] [place], [address] MCHC (RBC) [Mass/Vol] 35.0 g/dL Normal 32-36 [facility] Comment on above: Performed By: #### L 500.2500, L100.0100 ####[facility] [address] [place], [address] MCV (RBC) [Entitic vol] 91.0 fL Normal 80-94 [facility] Comment on above: Performed By: #### L 500.2500, L100.0100 ####[facility] [address] [place], [address] Monocytes/100 WBC (Bld) 15.4 % High 0-10 [facility] Comment on above: Performed By: #### L 500.2500, L100.0100 ####[facility] [address] [place], [address] Neutrophils/100 WBC (Bld) 59.8 % Normal 47-70 [facility] Comment on above: Performed By: #### L 500.2500, L100.0100 ####[facility] [address] [place], [address] Nucleated RBC (Bld) [#/Vol] 0 10*3/uL Normal 0-5 [facility] Comment on above: Performed By: #### L 500.2500, L100.0100 ####[facility] [address] [place], [address] Platelet mean volume (Bld) [Entitic vol] 10.0 fL Normal 6.2-12.0 [facility] Comment on above: Performed By: #### L 500.2500, L100.0100 ####[facility] [address] [place], [address] Platelets (Bld) [#/Vol] 252 10*3/uL Normal 150-450 [facility] Comment on above: Performed By: #### L 500.2500, L100.0100 ####[facility] [address] [place], [address] RBC (Bld) [#/Vol] 2.79 10*6/uL Low 4.6-6.2 [facility] Comment on above: Performed By: #### L 500.2500, L100.0100 ####[facility] [address] [place], [address] RDW SD 41.8 fl Normal 35.1-43.9 [facility] Comment on above: Performed By: #### L 500.2500, L100.0100 ####[facility] [address] [place], [address] WBC (Bld) [#/Vol] 6.0 10*3/uL Normal 4.4-11.0 [facility] Comment on above: Performed By: #### L 500.2500, L100.0100 ####[facility] [address] [place], [address] Basic Metabolic Profile (BMP )on 06-10-2025 BUN/CRE 10.6 RATIO Normal 10-20 [facility] Comment on above: Performed By: #### L 500.2500 ####[facility] [address] [place], [address] Calcium [Mass/Vol] 8.5 mg/dL Normal 7.6-11.0 [facility] Comment on above: Performed By: #### L 500.2500 ####[facility] [address] [place], [address] Chloride [Moles/Vol] 103 mmol/L Normal 98-108 [facility] Comment on above: Performed By: #### L 500.2500 ####[facility] [address] [place], [address] CO2 [Moles/Vol] 21.5 mmol/L Normal 21.0-32.0 [facility] Comment on above: Performed By: #### L 500.2500 ####[facility] [address] [place], [address] Creatinine [Mass/Vol] 6.79 mg/dL High 0.70-1.20 [facility] Comment on above: Performed By: #### L 500.2500 ####[facility] [address] [place], [address] ECRCL 10.48 ml/min Low 50-250 [facility] Comment on above: Performed By: #### L 500.2500 ####[facility] [address] [place], [address] GAP 16 High 5-15 [facility] Comment on above: Performed By: #### L 500.2500 ####[facility] [address] [place], [address] GFR/1.73 sq M.predicted among non-blacks MDRD (S/P/Bld) [Vol rate/Area] 8 mL/min/{1.73_m2} Low >60 [facility] Comment on above: Result Comment: mL/m in/1.73m2 CKD-EPI Creatinine Equation (2020) Performed By: #### L 500.2500 ####[facility] [address] [place], [address] Glucose [Mass/Vol] 258 mg/dL High 70-99 [facility] Comment on above: Performed By: #### L 500.2500 ####[facility] [address] [place], [address] Potassium [Moles/Vol] 4.1 mmol/L Normal 3.3-5.1 [facility] Comment on above: Performed By: #### L 500.2500 ####[facility] [address] [place], [address] Sodium [Moles/Vol] 141 mmol/L Normal 133-145 [facility] Comment on above: Performed By: #### L 500.2500 ####[facility] [address] [place], [address] Urea nitrogen [Mass/Vol] 72 mg/dL High 4-19 [facility] Comment on above: Performed By: #### L 500.2500 ####[facility] [address] [place], [address] Bedside Glucoseon 06-10-2025 FINGERSTICK GLU 199 mg/dL High 74-106 [facility] Comment on above: Result Comment: ANGELA GEMENT OF PATIENT CARE PER NURSING PROTOCOL Performed By: #### L 501.080 ####[facility] [address] [place], [address] FINGERSTICK GLU 332 mg/dL High [address] [facility] Comment on above: Result Comment: ANGELA GEMENT OF PATIENT CARE PER NURSING PROTOCOL Performed By: #### L 501.080 ####[facility] [address] [place], [address] FINGERSTICK GLU 272 mg/dL High -106 [facility] Comment on above: Result Comment: ANGELA GEMENT OF PATIENT CARE PER NURSING PROTOCOL Performed By: #### L 501.080 ####[facility] [address] [place], [address] FINGERSTICK GLU 230 mg/dL High [address] [place] [address] Comment on above: Result Comment: ANGELA GEMENT OF PATIENT CARE PER NURSING PROTOCOL Performed By: #### L 501.080 ####[facility] [address] [place], [address] ANCAon 06-09-2025 Atypical pANCA <1:20 Normal Neg:<1:20 [facility] Comment on above: Result Comment: The atypical pANCA pattern has been observed in asignificant percentage of patients with ulcerative colitis,primary sclerosing cholangitis and autoimmune hepatitis. Performed By: #### L 3100.5700, L3300.1200, L3400.4200, L3100.3425 ####[facility] [address] [place], [address] Cytoplasmic Ab <1:20 Normal Neg:<1:20 [facility] Comment on above: Performed By: #### L 3100.5700, L3300.1200, L3400.4200, L3100.3425 ####[facility] [address] [place], [place], [address] Perinuclear Ab. <1:20 Normal Neg:<1:20 [facility] Comment on above: Result Comment: The presence of positive fluorescence exhibiting P-ANCA orC-ANCA patterns alone is not specific for the diagnosis ofWegener's Granulomatosis (WG) or microscopic polyangiitis.Decisions about treatment should not be based solely onANCA IFA results. The [employer] ANCA [employer] Consensusrecommends follow up testing of positive sera with both MT-3 and MPO-ANCA enzyme immunoassays. As many as 5% serumsamples are positive only by EIA. Ref. AM J Clin [id number];111:507-513. Performed By: #### L 3100.5700, L3300.1200, L3400.4200, L3100.3420 ####[facility] [address] [place], [address] Anti-Glomerular Basement Mem bon 06-09-2025 ANTI-GLOM BM Ab < 0.2 Normal 0.0-0.9 [facility] Comment on above: Result Comment: Perf ormed at: - [facility] [address] [id number] Director: Ciaran Sethi PhD, Phone: [phone] at: - [facility] [address] [id number] Director: Yana Marin MD, Phone: [phone] Performed By: #### L 3100.5700, L3300.1200, L3400.4200, [id number] ####[facility] [address] [place], [place], [address] Basic Metabolic Profile (BMP )on 06-09-2025 BUN/CRE 9.9 RATIO Low 10-20 [facility] Comment on above: Performed By: #### L 500.2500, L100.0100 ####[facility] [address] [place], [address] Calcium [Mass/Vol] 8.4 mg/dL Normal 7.6-11.0 [facility] Comment on above: Performed By: #### L 500.2500, L100.0100 ####[facility] [address] [place], [address] Chloride [Moles/Vol] 99 mmol/L Normal 98-108 [facility] Comment on above: Performed By: #### L 500.2500, L100.0100 ####[facility] [address] [place], [address] CO2 [Moles/Vol] 23.7 mmol/L Normal 21.0-32.0 [facility] Comment on above: Performed By: #### L 500.2500, L100.0100 ####[facility] [address] [place], [address] Creatinine [Mass/Vol] 7.96 mg/dL Invalid Interpretation Code 0.70-1.20 [facility] Comment on above: Result Comment: Crit ical Result(s) Called at:0620 by: LIONEL MARTÍNEZ TO PETETNILDA??Results read back by same. Performed By: #### L 500.2500, L100.0100 ####[facility] [address] [place], [address] ECRCL 8.94 ml/min Invalid Interpretation Code 50-250 [facility] Comment on above: Performed By: #### L 500.2500, L100.0100 ####[facility] [address] [place], [address] GAP 16 High 5-15 [facility] Comment on above: Performed By: #### L 500.2500, L100.0100 ####[facility] [address] [place], [address] GFR/1.73 sq M.predicted among non-blacks MDRD (S/P/Bld) [Vol rate/Area] 7 mL/min/{1.73_m2} Low >60 [facility] Comment on above: Result Comment: mL/m in/1.73m2 CKD-EPI Creatinine Equation (2020) Performed By: #### L 500.2500, L100.0100 ####[facility] [address] [place], [address] Glucose [Mass/Vol] 199 mg/dL High 70-99 [facility] Comment on above: Performed By: #### L 500.2500, L100.0100 ####[facility] [address] [place], [address] Potassium [Moles/Vol] 4.4 mmol/L Normal 3.3-5.1 [facility] Comment on above: Performed By: #### L 500.2500, L100.0100 ####[facility] [address] [place], [address] Sodium [Moles/Vol] 139 mmol/L Normal 133-145 [facility] Comment on above: Performed By: #### L 500.2500, L100.0100 ####[facility] [address] [place], [address] Urea nitrogen [Mass/Vol] 79 mg/dL High 4-19 [facility] Comment on above: Performed By: #### L 500.2500, L100.0100 ####[facility] [address] [place], [address] Bedside Glucoseon 06-09-2025 FINGERSTICK GLU 334 mg/dL High 74-106 [facility] Comment on above: Result Comment: ANGELA GEMENT OF PATIENT CARE PER NURSING PROTOCOL Performed By: #### L 501.080 ####[facility] [address] [place], [address] FINGERSTICK GLU 265 mg/dL High 74-106 [facility] Comment on above: Result Comment: ANGELA GEMENT OF PATIENT CARE PER NURSING PROTOCOL Performed By: #### L 501.080 ####[facility] [address] [place], [address] FINGERSTICK GLU 128 mg/dL High 74-106 [facility] Comment on above: Result Comment: ANGELA GEMENT OF PATIENT CARE PER NURSING PROTOCOL Performed By: #### L 501.080 ####[facility] [address] [place], [address] FINGERSTICK GLU 184 mg/dL High 74-106 [facility] Comment on above: Result Comment: ANGELA GEMENT OF PATIENT CARE PER NURSING PROTOCOL Performed By: #### L 501.080 ####[facility] [address] [place], [address] CBC W/Diff, Automatedon 09-2 -2024 Absolute Lymph 0.63 X10 3/uL Low 0.83-4.51 [facility] Comment on above: Performed By: #### L 500.2500, L100.0100 ####[facility] [address] [place], [address] Absolute Neut 3.0 X10 3/uL Normal 2.0-7.7 [facility] Comment on above: Performed By: #### L 500.2500, L100.0100 ####[facility] [address] [place], [address] Basophils/100 WBC (Bld) 0.4 % Normal 0-1 [facility] Comment on above: Performed By: #### L 500.2500, L100.0100 ####[facility] [address] [place], [address] Eosinophils/100 WBC (Bld) 4.2 % Normal 0-5 [facility] Comment on above: Performed By: #### L 500.2500, L100.0100 ####[facility] [address] [place], [address] Erythrocyte distribution width (RBC) [Ratio] 12.7 % Normal 11.6-14.6 [facility] Comment on above: Performed By: #### L 500.2500, L100.0100 ####[facility] [address] [place], [address] Hematocrit (Bld) [Volume fraction] 28.9 % Low 40-54 [facility] Comment on above: Performed By: #### L 500.2500, L100.0100 ####[facility] [address] [place], [address] Hemoglobin (Bld) [Mass/Vol] 10.1 g/dL Low 13.0-16.5 [facility] Comment on above: Performed By: #### L 500.2500, L100.0100 ####[facility] [address] [place], [address] IG% 0.200 Normal 0.0-0.9 [facility] Comment on above: Result Comment: IG% - Immature Granulocytes (promyelocytes, myelocytes andmetamyelocytes) > 1% indicates that a LEFT SHIFT is Present. Performed By: #### L 500.2500, L100.0100 ####[facility] [address] [place], [address] Lymphocytes/100 WBC (Bld) 13.4 % Low 19-41 [facility] Comment on above: Performed By: #### L 500.2500, L100.0100 ####[facility] [address] [place], [address] MCH (RBC) [Entitic mass] 32.4 pg High 27.0-32.0 [facility] Comment on above: Performed By: #### L 500.2500, L100.0100 ####[facility] [address] [place], [address] MCHC (RBC) [Mass/Vol] 34.9 g/dL Normal 32-36 [facility] Comment on above: Performed By: #### L 500.2500, L100.0100 ####[facility] [address] [place], [address] MCV (RBC) [Entitic vol] 92.6 fL Normal 80-94 [facility] Comment on above: Performed By: #### L 500.2500, L100.0100 ####[facility] [address] [place], [address] Monocytes/100 WBC (Bld) 17.6 % High 0-10 [facility] Comment on above: Performed By: #### L 500.2500, L100.0100 ####[facility] [address] [place], [address] Neutrophils/100 WBC (Bld) 64.2 % Normal 47-70 [facility] Comment on above: Performed By: #### L 500.2500, L100.0100 ####[facility] [address] [place], [address] Nucleated RBC (Bld) [#/Vol] 0 10*3/uL Normal 0-5 [facility] Comment on above: Performed By: #### L 500.2500, L100.0100 ####[facility] [address] [place], [address] Platelet mean volume (Bld) [Entitic vol] 10.3 fL Normal 6.2-12.0 [facility] Comment on above: Performed By: #### L 500.2500, L100.0100 ####[facility] [address] [place], [address] Platelets (Bld) [#/Vol] 227 10*3/uL Normal 150-450 [facility] Comment on above: Performed By: #### L 500.2500, L100.0100 ####[facility] [address] [place], [address] RBC (Bld) [#/Vol] 3.12 10*6/uL Low 4.6-6.2 [facility] Comment on above: Performed By: #### L 500.2500, L100.0100 ####[facility] [address] [place], [address] RDW SD 43.1 fl Normal 35.1-43.9 [facility] Comment on above: Performed By: #### L 500.2500, L100.0100 ####[facility] [address] [place], [address] WBC (Bld) [#/Vol] 4.7 10*3/uL Normal 4.4-11.0 [facility] Comment on above: Performed By: #### L 500.2500, L100.0100 ####[facility] [address] [place], [address] Complement C3on 06-09-2025 COMP C3 130 mg/dL Normal 82-167 [facility] Comment on above: Performed By: #### L 3100.5700, L3300.1200, L3400.4200, L3100.3425 ####[facility] [address] [place], [address] NATHAN + Protein Elect, Serumon 06-09-2025 Albumin [Mass/Vol] 2.3 g/dL Low 2.9-4.4 [facility] Comment on above: Performed By: #### L 3100.5700, L3300.1200, L3400.4200, L3100.3425 ####[facility] [address] [place], [address] Albumin/Globulin [Mass ratio] 1.1 {ratio} Normal 0.7-1.7 [facility] Comment on above: Performed By: #### L 3100.5700, L3300.1200, L3400.4200, L3100.3425 ####[facility] [address] [place], [address] SXEIV-2-RUAF 0.2 g/dL Normal 0.0-0.4 [facility] Comment on above: Performed By: #### L 3100.5700, L3300.1200, L3400.4200, L3100.3425 ####[facility] [address] [place], [address] KWMKN-3-FFGH 0.9 g/dL Normal 0.4-1.0 [facility] Comment on above: Performed By: #### L 3100.5700, L3300.1200, L3400.4200, L3100.3425 ####[facility] [address] [place], [address] BETA GLOBULIN 0.7 g/dL Normal 0.7-1.3 [facility] Comment on above: Performed By: #### L 3100.5700, L3300.1200, L3400.4200, L3100.3425 ####[facility] [address] [place], [address] GAMMA GLOBULIN 0.3 g/dL Low 0.4-1.8 [facility] Comment on above: Performed By: #### L 3100.5700, L3300.1200, L3400.4200, L3100.3425 ####[facility] [address] [place], [address] Globulin (S) [Mass/Vol] 2.1 g/dL Abnormal 2.2-3.9 [facility] Comment on above: Performed By: #### L 3100.5700, L3300.1200, L3400.4200, L3100.3425 ####[facility] [address] [place], [address] NATHAN RESULT,S Comment Normal . [facility] Comment on above: Result Comment: No m onoclonality detected. Performed By: #### L 3100.5700, L3300.1200, L3400.4200, L3100.3425 ####[facility] [address] [place], [address] IMMUNOGLOB A QN 196 mg/dL Normal 61-437 [facility] Comment on above: Performed By: #### L 3100.5700, L3300.1200, L3400.4200, L3100.3425 ####[facility] [address] [place], [address] IMMUNOGLOB G QN 303 mg/dL Low 603-1613 [facility] Comment on above: Performed By: #### L 3100.5700, L3300.1200, L3400.4200, L3100.3425 ####[facility] [address] [place], [address] IMMUNOGLOB M QN 21 mg/dL Normal 15-143 [facility] Comment on above: Result Comment: Resu lt confirmed on concentration. Performed By: #### L 3100.5700, L3300.1200, L3400.4200, L3100.3425 ####[facility] [address] [place], [address] M-Guillermo Not Observed Normal Not Observed [facility] Comment on above: Performed By: #### L 3100.5700, L3300.1200, L3400.4200, L3100.3425 ####[facility] [address] [place], [address] NOTE: Comment Normal . [facility] Comment on above: Result Comment: Prot ein electrophoresis scan will follow via computer,mail, or [employer] agent delivery. Performed By: #### L 3100.5700, L3300.1200, L3400.4200, L3100.3425 ####[facility] [address] [place], [address] Protein [Mass/Vol] 4.4 g/dL Low 6.0-8.5 [facility] Comment on above: Performed By: #### L 3100.5700, L3300.1200, L3400.4200, L3100.3425 ####[facility] [address] [place], [address] Anti-dsDNA Abon 06-08-2025 ANTI-DNA (DS)AB <1 Normal 0-9 [facility] Comment on above: Result Comment: Nega tive <5 Equivocal 5 - 9 Positive >9Performed at: [facility] [address] [id number] Director: Ciaran Sethi PhD, Phone: [phone] Performed By: #### L 3100.5500 ####[facility] [address] [place], [address] Basic Metabolic Profile (BMP )on 06-08-2025 BUN/CRE 9.2 RATIO Low 10-20 [facility] Comment on above: Performed By: #### L 500.2500, L300.3900, L100.0100 ####[facility] [address] [place], [address] Calcium [Mass/Vol] 8.2 mg/dL Normal 7.6-11.0 [facility] Comment on above: Performed By: #### L 500.2500, L300.3900, L100.0100 ####[facility] [address] [place], [address] Chloride [Moles/Vol] 98 mmol/L Normal 98-108 [facility] Comment on above: Performed By: #### L 500.2500, L300.3900, L100.0100 ####[facility] [address] [place], [address] CO2 [Moles/Vol] 23.2 mmol/L Normal 21.0-32.0 [facility] Comment on above: Performed By: #### L 500.2500, L300.3900, L100.0100 ####[facility] [address] [place], [address] Creatinine [Mass/Vol] 8.87 mg/dL Invalid Interpretation Code 0.70-1.20 [facility] Comment on above: Result Comment: Crit ical Result(s) Called at: 0623 by:??LIONEL JAMIL Results read back by same. Performed By: #### L 500.2500, L300.3900, L100.0100 ####[facility] [address] [place], [address] ECRCL 8.02 ml/min Invalid Interpretation Code 50-250 [facility] Comment on above: Performed By: #### L 500.2500, L300.3900, L100.0100 ####[facility] [address] [place], [address] GAP 19 High 5-15 [facility] Comment on above: Performed By: #### L 500.2500, L300.3900, L100.0100 ####[facility] [address] [place], [address] GFR/1.73 sq M.predicted among non-blacks MDRD (S/P/Bld) [Vol rate/Area] 6 mL/min/{1.73_m2} Low >60 [facility] Comment on above: Result Comment: mL/m in/1.73m2 CKD-EPI Creatinine Equation (2020) Performed By: #### L 500.2500, L300.3900, L100.0100 ####[facility] [address] [place], [address] Glucose [Mass/Vol] 93 mg/dL Normal 70-99 [facility] Comment on above: Performed By: #### L 500.2500, L300.3900, L100.0100 ####[facility] [address] [place], [address] Potassium [Moles/Vol] 4.2 mmol/L Normal 3.3-5.1 [facility] Comment on above: Performed By: #### L 500.2500, L300.3900, L100.0100 ####[facility] [address] [place], [address] Sodium [Moles/Vol] 140 mmol/L Normal 133-145 [facility] Comment on above: Performed By: #### L 500.2500, L300.3900, L100.0100 ####[facility] [address] [place], [address] Urea nitrogen [Mass/Vol] 82 mg/dL High 4-19 [facility] Comment on above: Performed By: #### L 500.2500, L300.3900, L100.0100 ####[facility] [address] [place], [address] Bedside Glucoseon 06-08-2025 FINGERSTICK GLU 266 mg/dL High 74-106 [facility] Comment on above: Result Comment: ANGELA GEMENT OF PATIENT CARE PER NURSING PROTOCOL Performed By: #### L 501.080 ####[facility] [address] [place], [address] FINGERSTICK GLU 240 mg/dL High 74-106 [facility] Comment on above: Result Comment: ANGELA GEMENT OF PATIENT CARE PER NURSING PROTOCOL Performed By: #### L 501.080 ####[facility] [address] [place], [address] FINGERSTICK GLU 99 mg/dL Normal 74-106 [facility] Comment on above: Result Comment: ANGELA GEMENT OF PATIENT CARE PER NURSING PROTOCOL Performed By: #### L 501.080 ####[facility] [address] [place], [address] FINGERSTICK GLU 95 mg/dL Normal 74-106 [facility] Comment on above: Result Comment: ANGELA GEMENT OF PATIENT CARE PER NURSING PROTOCOL Performed By: #### L 501.080 ####[facility] [address] [place], [address] FINGERSTICK GLU 153 mg/dL High 74-106 [facility] Comment on above: Result Comment: ANGELA GEMENT OF PATIENT CARE PER NURSING PROTOCOL Performed By: #### L 501.080 ####[facility] [address] [place], [address] CBC W/Diff, Automatedon 09-2 -2024 Absolute Lymph 0.73 X10 3/uL Low 0.83-4.51 [facility] Comment on above: Performed By: #### L 500.2500, L300.3900, L100.0100 ####[facility] [address] [place], [address] Absolute Neut 3.8 X10 3/uL Normal 2.0-7.7 [facility] Comment on above: Performed By: #### L 500.2500, L300.3900, L100.0100 ####[facility] [address] [place], [address] Basophils/100 WBC (Bld) 0.3 % Normal 0-1 [facility] Comment on above: Performed By: #### L 500.2500, L300.3900, L100.0100 ####[facility] [address] [place], [address] Eosinophils/100 WBC (Bld) 5.0 % Normal 0-5 [facility] Comment on above: Performed By: #### L 500.2500, L300.3900, L100.0100 ####[facility] [address] [place], [address] Erythrocyte distribution width (RBC) [Ratio] 12.9 % Normal 11.6-14.6 [facility] Comment on above: Performed By: #### L 500.2500, L300.3900, L100.0100 ####[facility] [address] [place], [address] Hematocrit (Bld) [Volume fraction] 27.5 % Low 40-54 [facility] Comment on above: Performed By: #### L 500.2500, L300.3900, L100.0100 ####[facility] [address] [place], [address] Hemoglobin (Bld) [Mass/Vol] 9.6 g/dL Low 13.0-16.5 [facility] Comment on above: Performed By: #### L 500.2500, L300.3900, L100.0100 ####[facility] [address] [place], [address] IG% 0.300 Normal 0.0-0.9 [facility] Comment on above: Result Comment: IG% - Immature Granulocytes (promyelocytes, myelocytes andmetamyelocytes) > 1% indicates that a LEFT SHIFT is Present. Performed By: #### L 500.2500, L300.3900, L100.0100 ####[facility] [address] [place], [address] Lymphocytes/100 WBC (Bld) 12.7 % Low 19-41 [facility] Comment on above: Performed By: #### L 500.2500, L300.3900, L100.0100 ####[facility] [address] [place], [address] MCH (RBC) [Entitic mass] 32.0 pg Normal 27.0-32.0 [facility] Comment on above: Performed By: #### L 500.2500, L300.3900, L100.0100 ####[facility] [address] [place], [address] MCHC (RBC) [Mass/Vol] 34.9 g/dL Normal 32-36 [facility] Comment on above: Performed By: #### L 500.2500, L300.3900, L100.0100 ####[facility] [address] [place], [address] MCV (RBC) [Entitic vol] 91.7 fL Normal 80-94 [facility] Comment on above: Performed By: #### L 500.2500, L300.3900, L100.0100 ####[facility] [address] [place], [address] Monocytes/100 WBC (Bld) 15.0 % High 0-10 [facility] Comment on above: Performed By: #### L 500.2500, L300.3900, L100.0100 ####[facility] [address] [place], [address] Neutrophils/100 WBC (Bld) 66.7 % Normal 47-70 [facility] Comment on above: Performed By: #### L 500.2500, L300.3900, L100.0100 ####[facility] [address] [place], [address] Nucleated RBC (Bld) [#/Vol] 0 10*3/uL Normal 0-5 [facility] Comment on above: Performed By: #### L 500.2500, L300.3900, L100.0100 ####[facility] [address] [place], [address] Platelet mean volume (Bld) [Entitic vol] 10.4 fL Normal 6.2-12.0 [facility] Comment on above: Performed By: #### L 500.2500, L300.3900, L100.0100 ####[facility] [address] [place], [address] Platelets (Bld) [#/Vol] 220 10*3/uL Normal 150-450 [facility] Comment on above: Performed By: #### L 500.2500, L300.3900, L100.0100 ####[facility] [address] [place], [address] RBC (Bld) [#/Vol] 3.00 10*6/uL Low 4.6-6.2 [facility] Comment on above: Performed By: #### L 500.2500, L300.3900, L100.0100 ####[facility] [address] [place], [address] RDW SD 42.7 fl Normal 35.1-43.9 [facility] Comment on above: Performed By: #### L 500.2500, L300.3900, L100.0100 ####[facility] [address] [place], [address] WBC (Bld) [#/Vol] 5.8 10*3/uL Normal 4.4-11.0 [facility] Comment on above: Performed By: #### L 500.2500, L300.3900, L100.0100 ####[facility] [address] [place], [address] Prothrombin Time w/INRon INR Coag (PPP) [Relative time] 1.0 {INR} Normal [facility] Comment on above: Performed By: #### L 500.2500, L300.3900, L100.0100 ####[facility] [address] [place], [address] PT Coag (PPP) [Time] 13.4 s Normal 11.7-14.9 [facility] Comment on above: Performed By: #### L 500.2500, L300.3900, L100.0100 ####[facility] [address] [place], [address] Albumin Elph [Mass/Vol]Order ed By: Yohannes Santiago on 06-07-2025 Albumin [Mass/Vol] 2.3 g/dL Low 2.9-4.4 [facility] Bedside Glucoseon 06-07-2025 FINGERSTICK GLU 94 mg/dL Normal 74-106 [facility] Comment on above: Result Comment: ANGELA GEMENT OF PATIENT CARE PER NURSING PROTOCOL Performed By: #### L 501.080 ####[facility] [address] [place], [address] FINGERSTICK GLU 133 mg/dL High 74-106 [facility] Comment on above: Result Comment: ANGELA GEMENT OF PATIENT CARE PER NURSING PROTOCOL Performed By: #### L 501.080 ####[facility] [address] [place], [address] FINGERSTICK GLU 97 mg/dL Normal 74-106 [facility] Comment on above: Result Comment: ANGELA GEMENT OF PATIENT CARE PER NURSING PROTOCOL Performed By: #### L 501.080 ####[facility] [address] [place], [address] Bilirubin, totalOrdered By: Richi Hope on 06-07-2025 Bilirubin [Mass/Vol] 0.24 mg/dL 0.00-1.30 [facility] CBC W/Diff, Automatedon 05-18 Absolute Lymph 1.03 X10 3/uL Normal 0.83-4.51 [facility] Comment on above: Performed By: #### L 501.5200, L500.4050, L100.0100 ####[facility] [address] [place], [address] Absolute Neut 6.0 X10 3/uL Normal 2.0-7.7 [facility] Comment on above: Performed By: #### L 501.5200, L500.4050, L100.0100 ####[facility] [address] [place], [address] Basophils/100 WBC (Bld) 0.1 % Normal 0-1 [facility] Comment on above: Performed By: #### L 501.5200, L500.4050, L100.0100 ####[facility] [address] [place], [address] Eosinophils/100 WBC (Bld) 1.9 % Normal 0-5 [facility] Comment on above: Performed By: #### L 501.5200, L500.4050, L100.0100 ####[facility] [address] [place], [address] Erythrocyte distribution width (RBC) [Ratio] 13.2 % Normal 11.6-14.6 [facility] Comment on above: Performed By: #### L 501.5200, L500.4050, L100.0100 ####[facility] [address] [place], [address] Hematocrit (Bld) [Volume fraction] 26.7 % Low 40-54 [facility] Comment on above: Performed By: #### L 501.5200, L500.4050, L100.0100 ####[facility] [address] [place], [address] Hemoglobin (Bld) [Mass/Vol] 9.4 g/dL Low 13.0-16.5 [facility] Comment on above: Performed By: #### L 501.5200, L500.4050, L100.0100 ####[facility] [address] [place], [address] IG% 0.400 Normal 0.0-0.9 [facility] Comment on above: Result Comment: IG% - Immature Granulocytes (promyelocytes, myelocytes andmetamyelocytes) > 1% indicates that a LEFT SHIFT is Present. Performed By: #### L 501.5200, L500.4050, L100.0100 ####[facility] [address] [place], [address] Lymphocytes/100 WBC (Bld) 12.1 % Low 19-41 [facility] Comment on above: Performed By: #### L 501.5200, L500.4050, L100.0100 ####[facility] [address] [place], [address] MCH (RBC) [Entitic mass] 32.0 pg Normal 27.0-32.0 [facility] Comment on above: Performed By: #### L 501.5200, L500.4050, L100.0100 ####[facility] [address] [place], [address] MCHC (RBC) [Mass/Vol] 35.2 g/dL Normal 32-36 [facility] Comment on above: Performed By: #### L 501.5200, L500.4050, L100.0100 ####[facility] [address] [place], [address] MCV (RBC) [Entitic vol] 90.8 fL Normal 80-94 [facility] Comment on above: Performed By: #### L 501.5200, L500.4050, L100.0100 ####[facility] [address] [place], [address] Monocytes/100 WBC (Bld) 14.5 % High 0-10 [facility] Comment on above: Performed By: #### L 501.5200, L500.4050, L100.0100 ####[facility] [address] [place], [address] Neutrophils/100 WBC (Bld) 71.0 % High 47-70 [facility] Comment on above: Performed By: #### L 501.5200, L500.4050, L100.0100 ####[facility] [address] [place], [address] Nucleated RBC (Bld) [#/Vol] 0 10*3/uL Normal 0-5 [facility] Comment on above: Performed By: #### L 501.5200, L500.4050, L100.0100 ####[facility] [address] [place], [address] Platelet mean volume (Bld) [Entitic vol] 10.1 fL Normal 6.2-12.0 [facility] Comment on above: Performed By: #### L 501.5200, L500.4050, L100.0100 ####[facility] [address] [place], [address] Platelets (Bld) [#/Vol] 231 10*3/uL Normal 150-450 [facility] Comment on above: Performed By: #### L 501.5200, L500.4050, L100.0100 ####[facility] [address] [place], [address] RBC (Bld) [#/Vol] 2.94 10*6/uL Low 4.6-6.2 [facility] Comment on above: Performed By: #### L 501.5200, L500.4050, L100.0100 ####[facility] [address] [place], [address] RDW SD 43.7 fl Normal 35.1-43.9 [facility] Comment on above: Performed By: #### L 501.5200, L500.4050, L100.0100 ####[facility] [address] [place], [address] WBC (Bld) [#/Vol] 8.5 10*3/uL Normal 4.4-11.0 [facility] Comment on above: Performed By: #### L 501.5200, L500.4050, L100.0100 ####[facility] [address] [place], [address] CXR for Line Placementon CXR for Line Placement Normal [facility] Comprehensive Metabolic Prof ilon 06-07-2025 Albumin [Mass/Vol] 2.8 g/dL Low 3.4-4.8 [facility] Comment on above: Performed By: #### L 501.5200, L500.4050, L100.0100 ####[facility] [address] [place], [address] Albumin/Globulin [Mass ratio] 1.5 {ratio} Normal 0.9-2.4 [facility] Comment on above: Performed By: #### L 501.5200, L500.4050, L100.0100 ####[facility] [address] [place], [address] ALK PHOS 53 U/L Normal 40-129 [facility] Comment on above: Performed By: #### L 501.5200, L500.4050, L100.0100 ####[facility] [address] [place], [address] ALT [Catalytic activity/Vol] 20 U/L Normal <=46 [facility] Comment on above: Performed By: #### L 501.5200, L500.4050, L100.0100 ####[facility] [address] [place], [address] AST [Catalytic activity/Vol] 22 U/L Normal <=37 [facility] Comment on above: Performed By: #### L 501.5200, L500.4050, L100.0100 ####[facility] [address] [place], [address] Bilirubin [Mass/Vol] 0.24 mg/dL Normal 0.00-1.30 [facility] Comment on above: Performed By: #### L 501.5200, L500.4050, L100.0100 ####[facility] [address] [place], [address] BUN/CRE 9.2 RATIO Low 10-20 [facility] Comment on above: Performed By: #### L 501.5200, L500.4050, L100.0100 ####[facility] [address] [place], [address] Calcium [Mass/Vol] 8.0 mg/dL Normal 7.6-11.0 [facility] Comment on above: Performed By: #### L 501.5200, L500.4050, L100.0100 ####[facility] [address] [place], [address] Chloride [Moles/Vol] 94 mmol/L Low 98-108 [facility] Comment on above: Performed By: #### L 501.5200, L500.4050, L100.0100 ####[facility] [address] [place], [address] CO2 [Moles/Vol] 24.3 mmol/L Normal 21.0-32.0 [facility] Comment on above: Performed By: #### L 501.5200, L500.4050, L100.0100 ####[facility] [address] [place], [address] Creatinine [Mass/Vol] 10.70 mg/dL Invalid Interpretation Code 0.70-1.20 [facility] Comment on above: Result Comment: Crit ical Result(s) Called at 0550: by: ROLAND BYERS. ??Results read back by same. Performed By: #### L 501.5200, L500.4050, L100.0100 ####[facility] [address] [place], [address] ECRCL 6.65 ml/min Invalid Interpretation Code 50-250 [facility] Comment on above: Performed By: #### L 501.5200, L500.4050, L100.0100 ####[facility] [address] [place], [address] GAP 22 High 5-15 [facility] Comment on above: Performed By: #### L 501.5200, L500.4050, L100.0100 ####[facility] [address] [place], [address] GFR/1.73 sq M.predicted among non-blacks MDRD (S/P/Bld) [Vol rate/Area] 5 mL/min/{1.73_m2} Low >60 [facility] Comment on above: Result Comment: mL/m in/1.73m2 CKD-EPI Creatinine Equation (2020) Performed By: #### L 501.5200, L500.4050, L100.0100 ####[facility] [address] [place], [address] Globulin (S) [Mass/Vol] 1.9 g/dL Low 2.2-4.2 [facility] Comment on above: Performed By: #### L 501.5200, L500.4050, L100.0100 ####[facility] [address] [place], [address] Glucose [Mass/Vol] 62 mg/dL Low 70-99 [facility] Comment on above: Performed By: #### L 501.5200, L500.4050, L100.0100 ####[facility] [address] [place], [address] Potassium [Moles/Vol] 3.8 mmol/L Normal 3.3-5.1 [facility] Comment on above: Performed By: #### L 501.5200, L500.4050, L100.0100 ####[facility] [address] [place], [address] Sodium [Moles/Vol] 140 mmol/L Normal 133-145 [facility] Comment on above: Performed By: #### L 501.5200, L500.4050, L100.0100 ####[facility] [address] [place], [address] T PROT 4.7 g/dL Low 5.9-8.4 [facility] Comment on above: Performed By: #### L 501.5200, L500.4050, L100.0100 ####[facility] [address] [place], [address] Urea nitrogen [Mass/Vol] 98 mg/dL High 4-19 [facility] Comment on above: Performed By: #### L 501.5200, L500.4050, L100.0100 ####[facility] [address] [place], [address] Electrocardiogram reportOrde red By: Jeffrey Lord on 06-07-2025 EKG study [facility] Work Phone: [phone] EKG study [facility] Work Phone: [phone] Interpretation of serum or p lasma protein pattern by immunofixation (narrative resultOrdered By: Yohannes Santiago on 06-07-2025 Protein Fractions Immunofixation Shadi [Interp] Not Observed g/dL Not Observed [facility] Magnesiumon 06-07-2025 Magnesium [Mass/Vol] 1.7 mg/dL Normal 1.5-2.2 [facility] Comment on above: Performed By: #### L 501.5200, L500.4050, L100.0100 ####[facility] [address] [place], [address] Magnesium measurement (mass/ volume)Ordered By: Richi Hope on 06-07-2025 Magnesium (Unsp spec) [Mass/Vol] 1.7 mg/dL 1.5-2.2 [facility] No Panel InformationOrdered By: Yohannes Santiago on 06-07-2025 Addendum Document Comment . [facility] No Panel InformationOrdered By: Richi Hope on 06-07-2025 22 U/L <38 [facility] Procedure Reporton Procedure Report Normal [facility] Serum DNA double strand anti body assay (units/volume)Ordered By: Yohannes Santiago on 06-07-2025 DNA double strand Ab Qn (S) [IU]/mL 0-9 [facility] Serum classic neutrophil cyt oplasmic antibody assay (units/volume)Ordered By: Yohannes Santiago on 06-07-2025 Neutrophil cytoplasmic Ab.classic Qn (S) <1:20 titer Neg:<1:20 [facility] Serum globulin measurement ( mass/volume)Ordered By: Yohannes Santiago on 06-07-2025 Globulin (S) [Mass/Vol] 2.1 g/dL Low 2.2-3.9 [facility] Serum glomerular basement me mbrane antibody assay (units/volume)Ordered By: Yohannes Santiago on 06-07-2025 Glomerular basement membrane Ab Qn (S) < 0.2 units 0.0-0.9 [facility] Serum or plasma IgA measurem ent (mass/volume)Ordered By: Yohannes Santiago on 06-07-2025 IgA [Mass/Vol] 196 mg/dL 61-437 [facility] Serum or plasma IgG measurem ent (mass/volume)Ordered By: Yohannes Santiago on 06-07-2025 IgG [Mass/Vol] 303 mg/dL Low 603-1613 [facility] Serum or plasma alanine denis otransferase (ALT) measurementOrdered By: Richi Hope on 06-07-2025 ALT [Catalytic activity/Vol] 20 U/L <47 [facility] Serum or plasma albumin makeda urement (mass/volume)Ordered By: Richi Hope on 06-07-2025 Albumin [Mass/Vol] 2.8 g/dL Low 3.4-4.8 [facility] Serum or plasma albumin/glob ulin mass ratioOrdered By: Richi Hope on 06-07-2025 Albumin/Globulin [Mass ratio] 1.5 {ratio} 0.9-2.4 [facility] Serum or plasma alkaline neisha sphatase measurementOrdered By: Richi Hope on 06-07-2025 ALP [Catalytic activity/Vol] 53 U/L 40-129 [facility] Serum or plasma alpha 1 glob ulin measurement by electrophoresis (mass/volume)Ordered By: Yohannes Santiago on 06-07-2025 Alpha 1 globulin Elph [Mass/Vol] 0.2 g/dL 0.0-0.4 [facility] Alpha 1 globulin Elph [Mass/Vol] 0.9 g/dL 0.4-1.0 [facility] Serum or plasma beta globuli n measurement by electrophoresis (mass/volume)Ordered By: Yohannes Santiago on 06-07-2025 Beta globulin Elph [Mass/Vol] 0.7 g/dL 0.7-1.3 [facility] Serum or plasma gamma globul in measurement by electrophoresis (mass/volume)Ordered By: Yohannes Santiago on 06-07-2025 Gamma globulin Elph [Mass/Vol] 0.3 g/dL Low 0.4-1.8 [facility] Serum or plasma immunoelectr ophoresis interpretation (nominal result)Ordered By: Yohannes Santiago on 06-07-2025 Interpretation IEP [Interp] Comment . [facility] Serum or plasma protein makeda urement (mass/volume)Ordered By: Yohannes Santiago on 06-07-2025 Protein [Mass/Vol] 4.4 g/dL Low 6.0-8.5 [facility] Serum perinuclear neutrophil cytoplasmic antibody titer by immunofluorescenceOrdered By: Yohannes Santiago on 06-07-2025 Neutrophil cytoplasmic Ab.perinuclear IF (S) [Titer] <1:20 titer Neg:<1:20 [facility] Total proteinOrdered By: Jaciel Hope on 06-07-2025 Protein [Mass/Vol] 4.7 g/dL Low 5.9-8.4 [facility] Basic Metabolic Profile (BMP )on 06-06-2025 BUN Normal 4-19 [facility] Comment on above: Result Comment: DUPL ICATE-CMP DONE AT 0410 Performed By: #### L 500.2500 ####[facility] [address] [place], [address] BUN/CRE Normal 10-20 [facility] Comment on above: Result Comment: DUPL ICATE-CMP DONE AT [facility] Performed By: #### L 500.2500 ####[facility] [address] [place], [address] Calcium Normal 7.6-11.0 [facility] Comment on above: Result Comment: DUPL ICATE-CMP DONE AT [facility] Performed By: #### L 500.2500 ####[facility] [address] [place], [address] CL Normal 98-108 [facility] Comment on above: Result Comment: DUPL ICATE-CMP DONE AT [facility] Performed By: #### L 500.2500 ####[facility] [address] [place], [address] CO2 Normal 21.0-32.0 [facility] Comment on above: Result Comment: DUPL ICATE-CMP DONE AT [facility] Performed By: #### L 500.2500 ####[facility] [address] [place], [address] CREAT,SERUM Normal 0.70-1.20 [facility] Comment on above: Result Comment: DUPL ICATE-CMP DONE AT [facility] Performed By: #### L 500.2500 ####[facility] [address] [place], [address] eGFR Normal >60 [facility] Comment on above: Result Comment: DUPL ICATE-CMP DONE AT [facility] Performed By: #### L 500.2500 ####[facility] [address] [place], [address] GAP Normal 5-15 [facility] Comment on above: Result Comment: DUPL ICATE-CMP DONE AT [facility] Performed By: #### L 500.2500 ####[facility] [address] [place], [address] GLU Normal 70-99 [facility] Comment on above: Result Comment: DUPL ICATE-CMP DONE AT 0410 Performed By: #### L 500.2500 ####[facility] [address] [place], [address] Potassium Normal 3.3-5.1 [facility] Comment on above: Result Comment: DUPL ICATE-CMP DONE AT 0410 Performed By: #### L 500.2500 ####[facility] [address] [place], [address] Basic Metabolic Profile (BMP) Normal 133-145 [facility] Comment on above: Result Comment: DUPL ICATE-CMP DONE AT [facility] Performed By: #### L 500.2500 ####[facility] [address] [place], [address] BUN/CRE 10.4 RATIO Normal 10-20 [facility] Comment on above: Performed By: #### L 500.2500 ####[facility] [address] [place], [address] Calcium [Mass/Vol] 8.3 mg/dL Normal 7.6-11.0 [facility] Comment on above: Performed By: #### L 500.2500 ####[facility] [address] [place], [address] Chloride [Moles/Vol] 95 mmol/L Low 98-108 [facility] Comment on above: Performed By: #### L 500.2500 ####[facility] [address] [place], [address] CO2 [Moles/Vol] 18.1 mmol/L Low 21.0-32.0 [facility] Comment on above: Performed By: #### L 500.2500 ####[facility] [address] [place], [address] Creatinine [Mass/Vol] 8.88 mg/dL Invalid Interpretation Code 0.70-1.20 [facility] Comment on above: Result Comment: Crit ical Result(s) Called at: 01:15 06-06-25 to BernardaAzeb by:Maral Corrales??Results read back by same. Performed By: #### L 500.2500 ####[facility] [address] [place], [address] ECRCL 7.82 ml/min Invalid Interpretation Code 50-250 [facility] Comment on above: Performed By: #### L 500.2500 ####[facility] [address] [place], [address] GAP 25 High 5-15 [facility] Comment on above: Performed By: #### L 500.2500 ####[facility] [address] [place], [address] GFR/1.73 sq M.predicted among non-blacks MDRD (S/P/Bld) [Vol rate/Area] 6 mL/min/{1.73_m2} Low >60 [facility] Comment on above: Result Comment: mL/m in/1.73m2 CKD-EPI Creatinine Equation (2020) Performed By: #### L 500.2500 ####[facility] [address] [place], [address] Glucose [Mass/Vol] 278 mg/dL High 70-99 [facility] Comment on above: Performed By: #### L 500.2500 ####[facility] [address] [place], [address] Potassium [Moles/Vol] 4.6 mmol/L Normal 3.3-5.1 [facility] Comment on above: Performed By: #### L 500.2500 ####[facility] [address] [place], [address] Sodium [Moles/Vol] 138 mmol/L Normal 133-145 [facility] Comment on above: Performed By: #### L 500.2500 ####[facility] [address] [place], [address] Urea nitrogen [Mass/Vol] 93 mg/dL High 4-19 [facility] Comment on above: Performed By: #### L 500.2500 ####[facility] [address] [place], [address] Bedside Glucoseon - FINGERSTICK GLU 78 mg/dL Normal 74-106 [facility] Comment on above: Result Comment: ANGELA GEMENT OF PATIENT CARE PER NURSING PROTOCOL Performed By: #### L 501.080 ####[facility] [address] [place], [address] FINGERSTICK GLU 119 mg/dL High 74-106 [facility] Comment on above: Result Comment: ANGELA GEMENT OF PATIENT CARE PER NURSING PROTOCOL Performed By: #### L 501.080 ####[facility] [address] [place], [address] FINGERSTICK GLU 154 mg/dL High 74-106 [facility] Comment on above: Result Comment: ANGELA GEMENT OF PATIENT CARE PER NURSING PROTOCOL Performed By: #### L 501.080 ####[facility] [address] [place], [address] FINGERSTICK GLU 268 mg/dL High 74-106 [facility] Comment on above: Result Comment: ANGELA GEMENT OF PATIENT CARE PER NURSING PROTOCOL Performed By: #### L 501.080 ####[facility] [address] [place], [address] FINGERSTICK GLU 246 mg/dL High 74-106 [facility] Comment on above: Result Comment: ANGELA GEMENT OF PATIENT CARE PER NURSING PROTOCOL Performed By: #### L 501.080 ####[facility] [address] [place], [address] CBC W/Diff, Automatedon 09-2 Absolute Lymph 1.19 X10 3/uL Normal 0.83-4.51 [facility] Comment on above: Performed By: #### L 100.0100 ####[facility] [address] [place], [address] Absolute Neut 6.0 X10 3/uL Normal 2.0-7.7 [facility] Comment on above: Performed By: #### L 100.0100 ####[facility] [address] [place], [address] Basophils/100 WBC (Bld) 0.2 % Normal 0-1 [facility] Comment on above: Performed By: #### L 100.0100 ####[facility] [address] [place], [address] Eosinophils/100 WBC (Bld) 0.9 % Normal 0-5 [facility] Comment on above: Performed By: #### L 100.0100 ####[facility] [address] [place], [address] Erythrocyte distribution width (RBC) [Ratio] 13.0 % Normal 11.6-14.6 [facility] Comment on above: Performed By: #### L 100.0100 ####[facility] [address] [place], [address] Hematocrit (Bld) [Volume fraction] 25.8 % Low 40-54 [facility] Comment on above: Performed By: #### L 100.0100 ####[facility] [address] [place], [address] Hemoglobin (Bld) [Mass/Vol] 9.1 g/dL Low 13.0-16.5 [facility] Comment on above: Performed By: #### L 100.0100 ####[facility] [address] [place], [address] IG% 0.300 Normal 0.0-0.9 [facility] Comment on above: Result Comment: IG% - Immature Granulocytes (promyelocytes, myelocytes andmetamyelocytes) > 1% indicates that a LEFT SHIFT is Present. Performed By: #### L 100.0100 ####[facility] [address] [place], [address] Lymphocytes/100 WBC (Bld) 13.7 % Low 19-41 [facility] Comment on above: Performed By: #### L 100.0100 ####[facility] [address] [place], [address] MCH (RBC) [Entitic mass] 32.0 pg Normal 27.0-32.0 [facility] Comment on above: Performed By: #### L 100.0100 ####[facility] [address] [place], [address] MCHC (RBC) [Mass/Vol] 35.3 g/dL Normal 32-36 [facility] Comment on above: Performed By: #### L 100.0100 ####[facility] [address] [place], [address] MCV (RBC) [Entitic vol] 90.8 fL Normal 80-94 [facility] Comment on above: Performed By: #### L 100.0100 ####[facility] [address] [place], [address] Monocytes/100 WBC (Bld) 16.1 % High 0-10 [facility] Comment on above: Performed By: #### L 100.0100 ####[facility] [address] [place], [address] Neutrophils/100 WBC (Bld) 68.8 % Normal 47-70 [facility] Comment on above: Performed By: #### L 100.0100 ####[facility] [address] [place], [address] Nucleated RBC (Bld) [#/Vol] 0 10*3/uL Normal 0-5 [facility] Comment on above: Performed By: #### L 100.0100 ####[facility] [address] [place], [address] Platelet mean volume (Bld) [Entitic vol] 10.0 fL Normal 6.2-12.0 [facility] Comment on above: Performed By: #### L 100.0100 ####[facility] [address] [place], [address] Platelets (Bld) [#/Vol] 225 10*3/uL Normal 150-450 [facility] Comment on above: Performed By: #### L 100.0100 ####[facility] [address] [place], [address] RBC (Bld) [#/Vol] 2.84 10*6/uL Low 4.6-6.2 [facility] Comment on above: Performed By: #### L 100.0100 ####[facility] [address] [place], [address] RDW SD 43.1 fl Normal 35.1-43.9 [facility] Comment on above: Performed By: #### L 100.0100 ####[facility] [address] [place], [address] WBC (Bld) [#/Vol] 8.7 10*3/uL Normal 4.4-11.0 [facility] Comment on above: Performed By: #### L 100.0100 ####[facility] [address] [place], [address] Calculated very low density lipoprotein (VLDL) cholesterol measurementOrdered By: Tabby Zuniga on 06-06-2025 Calculated very low density lipoprotein (VLDL) cholesterol measurement 35 mg/dL 5-40 [facility] Comprehensive Metabolic Prof ilon 06-06-2025 Albumin [Mass/Vol] 2.7 g/dL Low 3.4-4.8 [facility] Comment on above: Performed By: #### L 500.4100, L500.4050 ####[facility] [address] [place], [address] Albumin/Globulin [Mass ratio] 1.4 {ratio} Normal 0.9-2.4 [facility] Comment on above: Performed By: #### L 500.4100, L500.4050 ####[facility] [address] [place], [address] ALK PHOS 55 U/L Normal 40-129 [facility] Comment on above: Performed By: #### L 500.4100, L500.4050 ####[facility] [address] [place], [address] ALT [Catalytic activity/Vol] 19 U/L Normal <=46 [facility] Comment on above: Performed By: #### L 500.4100, L500.4050 ####[facility] [address] [place], [address] AST [Catalytic activity/Vol] 20 U/L Normal <=37 [facility] Comment on above: Performed By: #### L 500.4100, L500.4050 ####[facility] [address] [place], [address] Bilirubin [Mass/Vol] 0.26 mg/dL Normal 0.00-1.30 [facility] Comment on above: Performed By: #### L 500.4100, L500.4050 ####[facility] [address] [place], [address] BUN/CRE 10.0 RATIO Normal 10-20 [facility] Comment on above: Performed By: #### L 500.4100, L500.4050 ####[facility] [address] [place], [address] Calcium [Mass/Vol] 8.1 mg/dL Normal 7.6-11.0 [facility] Comment on above: Performed By: #### L 500.4100, L500.4050 ####[facility] [address] [place], [address] Chloride [Moles/Vol] 94 mmol/L Low 98-108 [facility] Comment on above: Performed By: #### L 500.4100, L500.4050 ####[facility] [address] [place], [address] CO2 [Moles/Vol] 22.4 mmol/L Normal 21.0-32.0 [facility] Comment on above: Performed By: #### L 500.4100, L500.4050 ####[facility] [address] [place], [address] Creatinine [Mass/Vol] 9.29 mg/dL Invalid Interpretation Code 0.70-1.20 [facility] Comment on above: Result Comment: Crit ical Result(s) Called at 0457: by: ROLAND LOGAN.??Results read back by same. Performed By: #### L 500.4100, L500.4050 ####[facility] [address] [place], [address] ECRCL 7.48 ml/min Invalid Interpretation Code 50-250 [facility] Comment on above: Performed By: #### L 500.4100, L500.4050 ####[facility] [address] [place], [address] GAP 22 High 5-15 [facility] Comment on above: Performed By: #### L 500.4100, L500.4050 ####[facility] [address] [place], [address] GFR/1.73 sq M.predicted among non-blacks MDRD (S/P/Bld) [Vol rate/Area] 5 mL/min/{1.73_m2} Low >60 [facility] Comment on above: Result Comment: mL/m in/1.73m2 CKD-EPI Creatinine Equation (2020) Performed By: #### L 500.4100, L500.4050 ####[facility] [address] [place], [address] Globulin (S) [Mass/Vol] 1.9 g/dL Low 2.2-4.2 [facility] Comment on above: Performed By: #### L 500.4100, L500.4050 ####[facility] [address] [place], [address] Glucose [Mass/Vol] 293 mg/dL High 70-99 [facility] Comment on above: Performed By: #### L 500.4100, L500.4050 ####[facility] [address] [place], [address] Potassium [Moles/Vol] 4.2 mmol/L Normal 3.3-5.1 [facility] Comment on above: Performed By: #### L 500.4100, L500.4050 ####[facility] [address] [place], [address] Sodium [Moles/Vol] 138 mmol/L Normal 133-145 [facility] Comment on above: Performed By: #### L 500.4100, L500.4050 ####[facility] [address] [place], [address] T PROT 4.6 g/dL Low 5.9-8.4 [facility] Comment on above: Performed By: #### L 500.4100, L500.4050 ####[facility] [address] [place], [address] Urea nitrogen [Mass/Vol] 93 mg/dL High 4-19 [facility] Comment on above: Performed By: #### L 500.4100, L500.4050 ####[facility] [address] [place], [address] LDL calc ser/plasOrdered By: Tabby Zuniga on 06-06-2025 Cholesterol in LDL [Mass/Vol] 43 mg/dL [facility] Lipid Profileon 06-06-2025 CHOL:HDL 3.54 Normal [facility] Comment on above: Performed By: #### L 500.4100, L500.4050 ####[facility] [address] [place], [address] Cholesterol [Mass/Vol] 109 mg/dL Normal <=200 [facility] Comment on above: Result Comment: Chol esterol level, Desirable <200 mg/dLBorderline high cholesterol 200-239 mg/dLHigh cholesterol >=240 mg/dLRecommendations of the NCEP Adult Treatment Panel for thefollowing risk-cutoff thresholds for the [facility]. Performed By: #### L 500.4100, L500.4050 ####[facility] [address] [place], [address] Cholesterol in HDL [Mass/Vol] 31 mg/dL Low [facility] Comment on above: Result Comment: Elinor onal Cholesterol Education Program (NCEP) guidelines:<40 mg/dL: Low HDL-cholesterol (major risk factor for CHD)>= 60 mg/dL: High HDL-cholesterol (negative risk factor forCHD)HDL-cholesterol is affected by a number of factors, e.g.smoking, exercise, hormones, sex and age. Performed By: #### L 500.4100, L500.4050 ####[facility] [address] [place], [address] Cholesterol in LDL [Mass/Vol] 43 mg/dL Normal [facility] Comment on above: Result Comment: Bord fafwgi=479-431 mg/dL Higher Pmtx=066 mg/dL or greaterFriedwald Equation for LDL-C Performed By: #### L 500.4100, L500.4050 ####[facility] [address] [place], [address] Cholesterol in VLDL [Mass/Vol] 35 mg/dL Normal 5-40 [facility] Comment on above: Performed By: #### L 500.4100, L500.4050 ####[facility] [address] [place], [address] Triglyceride [Mass/Vol] 175 mg/dL Normal [facility] Comment on above: Result Comment: The drugs N-Acetylcysteine and Metamizole may falselydepress this assay.Normal range: <150 mg/dLBorderline High: 150-199 mg/dLHigh: 200-499 mg/dLVery High: >500 mg/dL Performed By: #### L 500.4100, L500.4050 ####[facility] [address] [place], [address] Magnesiumon 06-06-2025 Magnesium [Mass/Vol] 1.6 mg/dL Normal 1.5-2.2 [facility] Comment on above: Performed By: #### L 501.5200 ####[facility] [address] [place], [address] Phosphoruson 06-06-2025 Phosphate [Mass/Vol] 6.4 mg/dL High 2.7-4.5 [facility] Comment on above: Performed By: #### L 501.2300 ####[facility] [address] [place], [address] Serum or plasma cholesterol in HDL measurement (mass/volume)Ordered By: Tabby Zuniga on 06-06-2025 Cholesterol in HDL [Mass/Vol] 31 mg/dL Low >40 [facility] Serum or plasma cholesterol measurement (mass/volume)Ordered By: Tabby Zuniga on 06-06-2025 Cholesterol [Mass/Vol] 109 mg/dL <201 [facility] Urine Cultureon 06-06-2025 URC Culture exhibits no growth. Normal [facility] Comment on above: Performed By: #### M 100.2200 ####[facility] [address] [place], [address] 12 Lead EKGon 06-05-2025 12 Lead EKG Normal [facility] 12 Lead EKG Normal [facility] Acute Abdomen Inc Cheston Acute Abdomen Inc Chest Normal [facility] Basic Metabolic Profile (BMP )on 06-05-2025 BUN/CRE 10.6 RATIO Normal 07-05 [facility] Comment on above: Performed By: #### L 500.2500 ####[facility] [address] [place], [address] Calcium [Mass/Vol] 8.7 mg/dL Normal 7.6-11.0 [facility] Comment on above: Performed By: #### L 500.2500 ####[facility] [address] [place], [address] Chloride [Moles/Vol] 96 mmol/L Low 98-108 [facility] Comment on above: Performed By: #### L 500.2500 ####[facility] [address] [place], [address] CO2 [Moles/Vol] 15.0 mmol/L Low 21.0-32.0 [facility] Comment on above: Performed By: #### L 500.2500 ####[facility] [address] [place], [address] Creatinine [Mass/Vol] 8.66 mg/dL Invalid Interpretation Code 0.70-1.20 [facility] Comment on above: Result Comment: Crit ical Result(s) Called at: 21:04 06-05-25 to [place] by:?Zack Corrales Results read back by same. Performed By: #### L 500.2500 ####[facility] [address] [place], [address] ECRCL 8.02 ml/min Invalid Interpretation Code 50-250 [facility] Comment on above: Performed By: #### L 500.2500 ####[facility] [address] [place], [address] GAP 27 High 5-15 [facility] Comment on above: Performed By: #### L 500.2500 ####[facility] [address] [place], [address] GFR/1.73 sq M.predicted among non-blacks MDRD (S/P/Bld) [Vol rate/Area] 6 mL/min/{1.73_m2} Low >60 [facility] Comment on above: Result Comment: mL/m in/1.73m2 CKD-EPI Creatinine Equation (2020) Performed By: #### L 500.2500 ####[facility] [address] [place], [address] Glucose [Mass/Vol] 262 mg/dL High 70-99 [facility] Comment on above: Performed By: #### L 500.2500 ####[facility] [address] [place], [address] Potassium [Moles/Vol] 5.1 mmol/L Normal 3.3-5.1 [facility] Comment on above: Performed By: #### L 500.2500 ####[facility] [address] [place], [address] Sodium [Moles/Vol] 139 mmol/L Normal 133-145 [facility] Comment on above: Performed By: #### L 500.2500 ####[facility] [address] [place], [address] Urea nitrogen [Mass/Vol] 92 mg/dL High 4-19 [facility] Comment on above: Performed By: #### L 500.2500 ####[facility] [address] [place], [address] BUN/CRE 10.5 RATIO Normal 10-20 [facility] Comment on above: Performed By: #### L 500.2500 ####[facility] [address] [place], [address] Calcium [Mass/Vol] 8.9 mg/dL Normal 7.6-11.0 [facility] Comment on above: Performed By: #### L 500.2500 ####[facility] [address] [place], [address] Chloride [Moles/Vol] 98 mmol/L Normal 98-108 [facility] Comment on above: Performed By: #### L 500.2500 ####[facility] [address] [place], [address] CO2 [Moles/Vol] 10.7 mmol/L Low 21.0-32.0 [facility] Comment on above: Performed By: #### L 500.2500 ####[facility] [address] [place], [address] Creatinine [Mass/Vol] 8.71 mg/dL Invalid Interpretation Code 0.70-1.20 [facility] Comment on above: Result Comment: Crit ical Result(s) Called at: 16:37 06-05-25 to VinitaJesunhlc by: Maral Corrales ??Results read back by same. Performed By: #### L 500.2500 ####[facility] [address] [place], [address] ECRCL 7.98 ml/min Invalid Interpretation Code 50-250 [facility] Comment on above: Performed By: #### L 500.2500 ####[facility] [address] [place], [address] GAP 30 High 5-15 [facility] Comment on above: Performed By: #### L 500.2500 ####[facility] [address] [place], [address] GFR/1.73 sq M.predicted among non-blacks MDRD (S/P/Bld) [Vol rate/Area] 6 mL/min/{1.73_m2} Low >60 [facility] Comment on above: Result Comment: mL/m in/1.73m2 CKD-EPI Creatinine Equation (2020) Performed By: #### L 500.2500 ####[facility] [address] [place], [address] Glucose [Mass/Vol] 253 mg/dL High 70-99 [facility] Comment on above: Performed By: #### L 500.2500 ####[facility] [address] [place], [address] Potassium [Moles/Vol] 6.4 mmol/L Invalid Interpretation Code 3.3-5.1 [facility] Comment on above: Result Comment: Crit ical Result(s) Called at:16:37 06-05-25 to Lisset by: Maral Corrales??Results read back by same. Performed By: #### L 500.2500 ####[facility] [address] [place], [address] Sodium [Moles/Vol] 138 mmol/L Normal 133-145 [facility] Comment on above: Performed By: #### L 500.2500 ####[facility] [address] [place], [address] Urea nitrogen [Mass/Vol] 91 mg/dL High 4-19 [facility] Comment on above: Performed By: #### L 500.2500 ####[facility] [address] [place], [address] BUN Normal 4-19 [facility] Comment on above: Result Comment: PER SAMEER ANDERS OK TO CANCEL DUPLICATE ORDER Performed By: #### L 500.2500 ####[facility] [address] [place], [address] BUN/CRE Normal 10-20 [facility] Comment on above: Result Comment: PER SAMEER NURSE OK TO CANCEL DUPLICATE ORDER Performed By: #### L 500.2500 ####[facility] [address] [place], [address] Calcium Normal 7.6-11.0 [facility] Comment on above: Result Comment: PER SAMEER NURSE OK TO CANCEL DUPLICATE ORDER Performed By: #### L 500.2500 ####[facility] [address] [place], [address] CL Normal 98-108 [facility] Comment on above: Result Comment: PER SAMEER NURSE OK TO CANCEL DUPLICATE ORDER Performed By: #### L 500.2500 ####[facility] [address] [place], [address] CO2 Normal 21.0-32.0 [facility] Comment on above: Result Comment: PER SAMEER NURSE OK TO CANCEL DUPLICATE ORDER Performed By: #### L 500.2500 ####[facility] [address] [place], [address] CREAT,SERUM Normal 0.70-1.20 [facility] Comment on above: Result Comment: PER SAMEER NURSE OK TO CANCEL DUPLICATE ORDER Performed By: #### L 500.2500 ####[facility] [address] [place], [address] eGFR Normal >60 [facility] Comment on above: Result Comment: PER SAMEER NURSE OK TO CANCEL DUPLICATE ORDER Performed By: #### L 500.2500 ####[facility] [address] [place], [address] GAP Normal 5-15 [facility] Comment on above: Result Comment: PER SAMEER NURSE OK TO CANCEL DUPLICATE ORDER Performed By: #### L 500.2500 ####[facility] [address] [place], [address] GLU Normal 70-99 [facility] Comment on above: Result Comment: PER SAMEER NURSE OK TO CANCEL DUPLICATE ORDER Performed By: #### L 500.2500 ####[facility] [address] [place], [address] Potassium Normal 3.3-5.1 [facility] Comment on above: Result Comment: PER SAMEER NURSE OK TO CANCEL DUPLICATE ORDER Performed By: #### L 500.2500 ####[facility] [address] [place], [address] Basic Metabolic Profile (BMP) Normal 133-145 [facility] Comment on above: Result Comment: PER SAMEER NURSE OK TO CANCEL DUPLICATE ORDER Performed By: #### L 500.2500 ####[facility] [address] [place], [address] CO2 [Moles/Vol] 8.2 mmol/L Invalid Interpretation Code 21.0-32.0 [facility] Comment on above: Result Comment: Crit ical [...] by same. Performed By: #### L 500.2500 ####[facility] [address] [place], [address] Creatinine [Mass/Vol] 8.59 mg/dL Invalid Interpretation Code 0.70-1.20 [facility] Comment on above: Result Comment: Crit ical [...] by same. Performed By: #### L 500.2500 ####[facility] [address] [place], [place], [address] GAP 29 High 5-15 [facility] Comment on above: Result Comment: AMENDED REPORT 06/05/25 1230 GAP previously reported as: 29 H Performed By: #### L 500.2500 ####[facility] [address] [place], [place], [address] Potassium [Moles/Vol] 7.0 mmol/L Invalid Interpretation Code 3.3-5.1 [facility] Comment on above: Result Comment: Crit ical [...] by same. Performed By: #### L 500.2500 ####[facility] [address] [place], [place], [address] BUN Normal 4-19 [facility] Comment on above: Result Comment: PER SAMEER NURSE OK TO CANCEL DUPLICATE ORDER Performed By: #### L 500.2500 ####[facility] [address] [place], [address] BUN/CRE Normal 10-20 [facility] Comment on above: Result Comment: PER SAMEER NURSE OK TO CANCEL DUPLICATE ORDER Performed By: #### L 500.2500 ####[facility] [address] [place], [address] Calcium Normal 7.6-11.0 [facility] Comment on above: Result Comment: PER SAMEER NURSE OK TO CANCEL DUPLICATE ORDER Performed By: #### L 500.2500 ####[facility] [address] [place], [address] CL Normal 98-108 [facility] Comment on above: Result Comment: PER SAMEER NURSE OK TO CANCEL DUPLICATE ORDER Performed By: #### L 500.2500 ####[facility] [address] [place], [address] CO2 Normal 21.0-32.0 [facility] Comment on above: Result Comment: PER SAMEER NURSE OK TO CANCEL DUPLICATE ORDER Performed By: #### L 500.2500 ####[facility] [address] [place], [address] CREAT,SERUM Normal 0.70-1.20 [facility] Comment on above: Result Comment: PER SAMEER NURSE OK TO CANCEL DUPLICATE ORDER Performed By: #### L 500.2500 ####[facility] [address] [place], [address] eGFR Normal >60 [facility] Comment on above: Result Comment: PER SAMEER NURSE OK TO CANCEL DUPLICATE ORDER Performed By: #### L 500.2500 ####[facility] [address] [place], [address] GAP Normal 5-15 [facility] Comment on above: Result Comment: PER SAMEER NURSE OK TO CANCEL DUPLICATE ORDER Performed By: #### L 500.2500 ####[facility] [address] [place], [address] GLU Normal 70-99 [facility] Comment on above: Result Comment: PER SAMEER NURSE OK TO CANCEL DUPLICATE ORDER Performed By: #### L 500.2500 ####[facility] [address] [place], [address] Potassium Normal 3.3-5.1 [facility] Comment on above: Result Comment: PER SAMEER NURSE OK TO CANCEL DUPLICATE ORDER Performed By: #### L 500.2500 ####[facility] [address] [place], [address] Basic Metabolic Profile (BMP) Normal 133-145 [facility] Comment on above: Result Comment: PER SAMEER NURSE OK TO CANCEL DUPLICATE ORDER Performed By: #### L 500.2500 ####[facility] [address] [place], [address] BUN/CRE 10.7 RATIO Normal 10-20 [facility] Comment on above: Result Comment: AMENDED REPORT 06/05/25901 BUN/CRE previously reported as: 10.6 RATIO Performed By: #### L 500.2500 ####[facility] [address] [place], [address] CO2 [Moles/Vol] 9.2 mmol/L Invalid Interpretation Code 21.0-32.0 [facility] Comment on above: Result Comment: Crit ical [...] by same. Performed By: #### L 500.2500 ####[facility] [address] [place], [place], [address] Creatinine [Mass/Vol] 8.63 mg/dL Invalid Interpretation Code 0.70-1.20 [facility] Comment on above: Result Comment: Crit ical [...] by same. Performed By: #### L 500.2500 ####[facility] [address] [facility], [address] GAP 29 High 5-15 [facility] Comment on above: Result Comment: AMENDED REPORT 06/05/25901 GAP previously reported as: 29 H Performed By: #### L 500.2500 ####[facility] [address] [place], [place], [address] Potassium [Moles/Vol] 7.5 mmol/L Invalid Interpretation Code 3.3-5.1 [facility] Comment on above: Result Comment: Crit ical [...] by same. Performed By: #### L 500.2500 ####[facility] [address] [place], [address] Bedside Glucoseon 06-05-2025 FINGERSTICK GLU 219 mg/dL High 74-106 [facility] Comment on above: Result Comment: ANGELA GEMENT OF PATIENT CARE PER NURSING PROTOCOL Performed By: #### L 501.080 ####[facility] [address] [place], [address] FINGERSTICK GLU 165 mg/dL High 74-106 [facility] Comment on above: Result Comment: ANGELA GEMENT OF PATIENT CARE PER NURSING PROTOCOL Performed By: #### L 501.080 ####[facility] [address] [place], [address] FINGERSTICK GLU 90 mg/dL Normal 74-106 [facility] Comment on above: Result Comment: ANGELA GEMENT OF PATIENT CARE PER NURSING PROTOCOL Performed By: #### L 501.080 ####[facility] [address] [place], [address] Bilirubin Test strip Ql (U)O rdered By: Tabby Zuniga on 06-05-2025 Bilirubin Ql (U) Negative Negative [facility] CBC W/Diff, Automatedon 05-18 Absolute Lymph 1.17 X10 3/uL Normal 0.83-4.51 [facility] Comment on above: Performed By: #### L 501.4021, L100.0100, L500.4050 ####[facility] [address] [place], [address] Absolute Neut 8.6 X10 3/uL High 2.0-7.7 [facility] Comment on above: Performed By: #### L 501.4021, L100.0100, L500.4050 ####[facility] [address] [place], [address] Basophils/100 WBC (Bld) 0.2 % Normal 0-1 [facility] Comment on above: Performed By: #### L 501.4021, L100.0100, L500.4050 ####[facility] [address] [place], [address] Eosinophils/100 WBC (Bld) 0.2 % Normal 0-5 [facility] Comment on above: Performed By: #### L 501.4021, L100.0100, L500.4050 ####[facility] [address] [place], [address] Erythrocyte distribution width (RBC) [Ratio] 12.9 % Normal 11.6-14.6 [facility] Comment on above: Performed By: #### L 501.4021, L100.0100, L500.4050 ####[facility] [address] [place], [address] Hematocrit (Bld) [Volume fraction] 35.4 % Low 40-54 [facility] Comment on above: Performed By: #### L 501.4021, L100.0100, L500.4050 ####[facility] [address] [place], [address] Hemoglobin (Bld) [Mass/Vol] 12.0 g/dL Low 13.0-16.5 [facility] Comment on above: Performed By: #### L 501.4021, L100.0100, L500.4050 ####[facility] [address] [place], [address] IG% 0.500 Normal 0.0-0.9 [facility] Comment on above: Result Comment: IG% - Immature Granulocytes (promyelocytes, myelocytes andmetamyelocytes) > 1% indicates that a LEFT SHIFT is Present. Performed By: #### L 501.4021, L100.0100, L500.4050 ####[facility] [address] [place], [address] Lymphocytes/100 WBC (Bld) 11.2 % Low 19-41 [facility] Comment on above: Performed By: #### L 501.4021, L100.0100, L500.4050 ####[facility] [address] [place], [address] MCH (RBC) [Entitic mass] 32.0 pg Normal 27.0-32.0 [facility] Comment on above: Performed By: #### L 501.4021, L100.0100, L500.4050 ####[facility] [address] [place], [address] MCHC (RBC) [Mass/Vol] 33.9 g/dL Normal 32-36 [facility] Comment on above: Performed By: #### L 501.4021, L100.0100, L500.4050 ####[facility] [address] [place], [address] MCV (RBC) [Entitic vol] 94.4 fL High 80-94 [facility] Comment on above: Performed By: #### L 501.4021, L100.0100, L500.4050 ####[facility] [address] [place], [address] Monocytes/100 WBC (Bld) 5.6 % Normal 0-10 [facility] Comment on above: Performed By: #### L 501.4021, L100.0100, L500.4050 ####[facility] [address] [place], [address] Neutrophils/100 WBC (Bld) 82.3 % High 47-70 [facility] Comment on above: Performed By: #### L 501.4021, L100.0100, L500.4050 ####[facility] [address] [place], [address] Nucleated RBC (Bld) [#/Vol] 0 10*3/uL Normal 0-5 [facility] Comment on above: Performed By: #### L 501.4021, L100.0100, L500.4050 ####[facility] [address] [place], [address] Platelet mean volume (Bld) [Entitic vol] 9.9 fL Normal 6.2-12.0 [facility] Comment on above: Performed By: #### L 501.4021, L100.0100, L500.4050 ####[facility] [address] [place], [address] Platelets (Bld) [#/Vol] 285 10*3/uL Normal 150-450 [facility] Comment on above: Performed By: #### L 501.4021, L100.0100, L500.4050 ####[facility] [address] [place], [address] RBC (Bld) [#/Vol] 3.75 10*6/uL Low 4.6-6.2 [facility] Comment on above: Performed By: #### L 501.4021, L100.0100, L500.4050 ####[facility] [address] [place], [address] RDW SD 44.4 fl High 35.1-43.9 [facility] Comment on above: Performed By: #### L 501.4021, L100.0100, L500.4050 ####[facility] [address] [place], [address] WBC (Bld) [#/Vol] 10.5 10*3/uL Normal 4.4-11.0 [facility] Comment on above: Performed By: #### L 501.4021, L100.0100, L500.4050 ####[facility] [address] [place], [address] CO2 (BldV) [Moles/Vol]Ordere d By: Richi Hope on 06-05-2025 CO2 [Moles/Vol] 18 mmol/L Low 23-33 [facility] CPK Total, Creatine Kinaseon 06-05-2025 CPK TOTAL 200 U/L High 24-195 [facility] Comment on above: Performed By: #### L 501.3620 ####[facility] [address] [place], [address] Comprehensive Metabolic Prof ilon 06-05-2025 Albumin [Mass/Vol] 3.9 g/dL Normal 3.4-4.8 [facility] Comment on above: Performed By: #### L 501.4021, L100.0100, L500.4050 ####[facility] [address] [place], [address] Albumin/Globulin [Mass ratio] 1.3 {ratio} Normal 0.9-2.4 [facility] Comment on above: Performed By: #### L 501.4021, L100.0100, L500.4050 ####[facility] [address] [place], [address] ALK PHOS 84 U/L Normal 40-129 [facility] Comment on above: Performed By: #### L 501.4021, L100.0100, L500.4050 ####[facility] [address] [place], [address] ALT [Catalytic activity/Vol] 24 U/L Normal <=46 [facility] Comment on above: Performed By: #### L 501.4021, L100.0100, L500.4050 ####[facility] [address] [place], [address] AST [Catalytic activity/Vol] 26 U/L Normal <=37 [facility] Comment on above: Performed By: #### L 501.4021, L100.0100, L500.4050 ####[facility] [address] [place], [address] Bilirubin [Mass/Vol] 0.29 mg/dL Normal 0.00-1.30 [facility] Comment on above: Performed By: #### L 501.4021, L100.0100, L500.4050 ####[facility] [address] [place], [address] BUN/CRE 10.5 RATIO Normal 10-20 [facility] Comment on above: Performed By: #### L 501.4021, L100.0100, L500.4050 ####[facility] [address] [place], [address] Calcium [Mass/Vol] 10.5 mg/dL Normal 7.6-11.0 [facility] Comment on above: Performed By: #### L 501.4021, L100.0100, L500.4050 ####[facility] [address] [place], [address] Chloride [Moles/Vol] 100 mmol/L Normal 98-108 [facility] Comment on above: Performed By: #### L 501.4021, L100.0100, L500.4050 ####[facility] [address] [place], [address] CO2 [Moles/Vol] 11.0 mmol/L Low 21.0-32.0 [facility] Comment on above: Performed By: #### L 501.4021, L100.0100, L500.4050 ####[facility] [address] [place], [address] Creatinine [Mass/Vol] 8.74 mg/dL Invalid Interpretation Code 0.70-1.20 [facility] Comment on above: Result Comment: Crit ical Result(s) Called at 0506: by: ROLAND PAYNE.??Results read back by same. Performed By: #### L 501.4021, L100.0100, L500.4050 ####[facility] [address] [place], [address] ECRCL 7.80 ml/min Invalid Interpretation Code 50-250 [facility] Comment on above: Performed By: #### L 501.4021, L100.0100, L500.4050 ####[facility] [address] [place], [address] GAP 29 High 5-15 [facility] Comment on above: Performed By: #### L 501.4021, L100.0100, L500.4050 ####[facility] [address] [place], [address] GFR/1.73 sq M.predicted among non-blacks MDRD (S/P/Bld) [Vol rate/Area] 6 mL/min/{1.73_m2} Low >60 [facility] Comment on above: Result Comment: mL/m in/1.73m2 CKD-EPI Creatinine Equation (2020) Performed By: #### L 501.4021, L100.0100, L500.4050 ####[facility] [address] [place], [address] Globulin (S) [Mass/Vol] 2.9 g/dL Normal 2.2-4.2 [facility] Comment on above: Performed By: #### L 501.4021, L100.0100, L500.4050 ####[facility] [address] [place], [address] Glucose [Mass/Vol] 104 mg/dL High 70-99 [facility] Comment on above: Performed By: #### L 501.4021, L100.0100, L500.4050 ####[facility] [address] [place], [address] Potassium [Moles/Vol] 6.3 mmol/L Invalid Interpretation Code 3.3-5.1 [facility] Comment on above: Result Comment: Crit ical Result(s) Called at 0506: by: ROLAND PAYNE. ??Results read back by same. Performed By: #### L 501.4021, L100.0100, L500.4050 ####[facility] [address] [place], [address] Sodium [Moles/Vol] 140 mmol/L Normal 133-145 [facility] Comment on above: Performed By: #### L 501.4021, L100.0100, L500.4050 ####[facility] [address] [place], [address] T PROT 6.8 g/dL Normal 5.9-8.4 [facility] Comment on above: Performed By: #### L 501.4021, L100.0100, L500.4050 ####[facility] [address] [place], [address] Urea nitrogen [Mass/Vol] 92 mg/dL High 4-19 [facility] Comment on above: Performed By: #### L 501.4021, L100.0100, L500.4050 ####[facility] [address] [place], [address] Consultation - Nephrologyon 06-05-2025 Consultation - Nephrology Normal [facility] Creatinine, Urine (random)on 06-05-2025 UR CREAT 38.30 mg/dL Low 39.00-259.00 [facility] Comment on above: Performed By: #### L 400.0001, L501.5500, L501.1200 ####[facility] [address] [place], [address] Echo Limited w/Contraston Echo Limited w/Contrast Normal [facility] Emergency Department Summary on 06-05-2025 Emergency Department Summary Normal [facility] H AND P Exam - Hospitaliston 06-05-2025 H&P Exam - Hospitalist Normal [facility] Ketones Test strip Ql (U)Ord ered By: Tabby Zuniga on 06-05-2025 Ketones Ql (U) 5 mg/dl High Negative [facility] Kidney and Bladderon 025 Kidney and Bladder Normal [facility] L501.4021on 06-05-2025 Trop T High Sen 116 ng/L Invalid Interpretation Code <=22 [facility] Comment on above: Result Comment: Crit ical Result(s) Called at 0506: by: ROLAND PAYNE. ??Results read back by same. Performed By: #### L 501.4021, L100.0100, L500.4050 ####[facility] [address] [place], [address] Limited echocardiogram repor tOrdered By: Jeffrey Lord on 06-05-2025 Study report [facility] Work Phone: Magnesiumon 06-05-2025 Magnesium [Mass/Vol] 1.8 mg/dL Normal 1.5-2.2 [facility] Comment on above: Performed By: #### L 501.5200, L501.2300 ####[facility] [address] [place], [address] Magnesium [Mass/Vol] 2.0 mg/dL Normal 1.5-2.2 [facility] Comment on above: Order Comment: Comme nts: May add to ED labsComments: may add to ED labs Performed By: #### L 501.5200, L501.2300 ####[facility] [address] [place], [address] Mucus LM Ql (Urine sed)Order ed By: Tabby Zuniga on 06-05-2025 Mucus Ql (Urine sed) 0 SEEN /hpf [facility] Nitrite Test strip Ql (U)Ord ered By: Tabby Zuniga on 06-05-2025 Nitrite Ql (U) Negative Negative [facility] No Panel InformationOrdered By: Richi Hope on 06-05-2025 JUDY [facility] Not entered [facility] Osmolality, Serumon 06-05-20 25 OSMOLALITY,SER 336 mOsm/KG High 280-301 [facility] Comment on above: Performed By: #### L 501.7300 ####[facility] [address] [place], [address] Phosphoruson 06-05-2025 Phosphate [Mass/Vol] 7.5 mg/dL High 2.7-4.5 [facility] Comment on above: Performed By: #### L 501.5200, L501.2300 ####[facility] [address] [place], [address] Phosphate [Mass/Vol] 6.5 mg/dL High 2.7-4.5 [facility] Comment on above: Order Comment: Comme nts: May add to ED labsComments: may add to ED labs Performed By: #### L 501.5200, L501.2300 ####[facility] [address] [place], [address] Protein Test strip Ql (U)Ord ered By: Tabby Zuniga on 06-05-2025 Protein Ql (U) 100 mg/dl High Negative [facility] Random urine creatinine makeda urement (mass/volume)Ordered By: Tabby Efrain on 06-05-2025 Creatinine Unsp time (U) [Mass/Vol] 38.30 mg/dL Low 39.00-259.00 [facility] Serum or plasma creatine kin ase activityOrdered By: Chris Bird on 06-05-2025 CK [Catalytic activity/Vol] 200 U/L High 24-195 [facility] Squamous epithelial cells de tection in urine sediment by light microscopyOrdered By: Tabby Zuniga on 06-05-2025 Epithelial cells.squamous LM Ql (Urine sed) 0 SEEN /hpf 0-5 [facility] Troponin T HS 2 HRon 025 Trop T High Sen 110 ng/L Invalid Interpretation Code <=22 [facility] Comment on above: Result Comment: Crit ical Result(s) Called at 0645: by: ROLAND ZAVALA. ??Results read back by same. Performed By: #### L 499.0042 ####[facility] [address] [place], [place], [phone](030) Troponin T HS 4 HRon 025 Trop T High Sen 111 ng/L Invalid Interpretation Code <=22 [facility] Comment on above: Result Comment: Crit ical Result(s) Called at 0958: by: ROLAND WALL..??Results read back by same. Performed By: #### L 499.0043 ####[facility] [address] [place], [place], [address] Troponin T.cardiac [Mass/vol ume] in Serum or Plasma by High sensitivity methodOrdered By: Blake Kapoor on 06-05-2025 Troponin T.cardiac High sensitivity method [Mass/Vol] 111 ng/L Critically high <22 [facility] Troponin T.cardiac High sensitivity method [Mass/Vol] 110 ng/L Critically high <22 [facility] Troponin T.cardiac High sensitivity method [Mass/Vol] 116 ng/L Critically high <22 [facility] Urinalysis, Completeon 06-05 EPI,RENAL 0-5 SEEN Normal 0-5 [facility] Comment on above: Order Comment: DOMINICK TER SPECIMEN Performed By: #### L 400.0001, L501.5500, L501.1200 ####[facility] [address] [place], [address] RBC 0-5 SEEN Normal 0-5 [facility] Comment on above: Order Comment: DOMINICK TER SPECIMEN Performed By: #### L 400.0001, L501.5500, L501.1200 ####[facility] [address] [place], [address] WBC 0-5 SEEN Normal 0-5 [facility] Comment on above: Order Comment: DOMINICK TER SPECIMEN Performed By: #### L 400.0001, L501.5500, L501.1200 ####[facility] [address] [place], [address] BACTERIA 0 SEEN Normal None Seen [facility] Comment on above: Order Comment: DOMINICK TER SPECIMEN Performed By: #### L 400.0001, L501.5500, L501.1200 ####[facility] [address] [place], [address] EPI,SQUAMOUS 0 SEEN Normal 0-5 [facility] Comment on above: Order Comment: DOMINICK TER SPECIMEN Performed By: #### L 400.0001, L501.5500, L501.1200 ####[facility] [address] [place], [address] Mucus Ql (Urine sed) 0 SEEN Normal [facility] Comment on above: Order Comment: DOMINICK TER SPECIMEN Performed By: #### L 400.0001, L501.5500, L501.1200 ####[facility] [address] [place], [address] BACTERIA Normal None Seen [facility] Comment on above: Order Comment: ZOYA CTOR TO SPECIFY Result Comment: PER SAMEER NURSE OK TO CANCEL DUPLICATE ORDER Performed By: #### L 400.0001 ####[facility] [address] [place], [address] BILIRUBIN URINE Normal Negative [facility] Comment on above: Order Comment: COLLE CTOR TO SPECIFY Result Comment: PER SAMEER NURSE OK TO CANCEL DUPLICATE ORDER Performed By: #### L 400.0001 ####[facility] [address] [place], [address] Clarity (U) Normal Clear [facility] Comment on above: Order Comment: COLLE CTOR TO SPECIFY Result Comment: PER SAMEER NURSE OK TO CANCEL DUPLICATE ORDER Performed By: #### L 400.0001 ####[facility] [address] [place], [address] Color (U) Normal Yellow [facility] Comment on above: Order Comment: COLLE CTOR TO SPECIFY Result Comment: PER SAMEER NURSE OK TO CANCEL DUPLICATE ORDER Performed By: #### L 400.0001 ####[facility] [address] [place], [address] EPI,SQUAMOUS Normal 0-5 [facility] Comment on above: Order Comment: ZOYA CTOR TO SPECIFY Result Comment: PER SAMEER NURSE OK TO CANCEL DUPLICATE ORDER Performed By: #### L 400.0001 ####[facility] [address] [place], [address] GLUCOSE, UR Normal Normal [facility] Comment on above: Order Comment: COLLE CTOR TO SPECIFY Result Comment: PER SAMEER NURSE OK TO CANCEL DUPLICATE ORDER Performed By: #### L 400.0001 ####[facility] [address] [place], [address] KETONE UR Normal Negative [facility] Comment on above: Order Comment: COLLE CTOR TO SPECIFY Result Comment: PER SAMEER NURSE OK TO CANCEL DUPLICATE ORDER Performed By: #### L 400.0001 ####[facility] [address] [place], [address] LEUK ESTERASE Normal Negative [facility] Comment on above: Order Comment: COLLE CTOR TO SPECIFY Result Comment: PER SAMEER NURSE OK TO CANCEL DUPLICATE ORDER Performed By: #### L 400.0001 ####[facility] [address] [place], [address] Mucus Ql (Urine sed) Normal [facility] Comment on above: Order Comment: COLLE CTOR TO SPECIFY Result Comment: PER SAMEER NURSE OK TO CANCEL DUPLICATE ORDER Performed By: #### L 400.0001 ####[facility] [address] [place], [address] Nitrite Ql (U) Normal Negative [facility] Comment on above: Order Comment: COLLE CTOR TO SPECIFY Result Comment: PER SAMEER NURSE OK TO CANCEL DUPLICATE ORDER Performed By: #### L 400.0001 ####[facility] [address] [place], [address] OCCULT BLOOD-UR Normal Negative [facility] Comment on above: Order Comment: COLLE CTOR TO SPECIFY Result Comment: PER SAMEER NURSE OK TO CANCEL DUPLICATE ORDER Performed By: #### L 400.0001 ####[facility] [address] [place], [address] pH UR Normal 5.0 - 8.0 [facility] Comment on above: Order Comment: COLLE CTOR TO SPECIFY Result Comment: PER SAMEER NURSE OK TO CANCEL DUPLICATE ORDER Performed By: #### L 400.0001 ####[facility] [address] [place], [address] PROT DIPSTX Normal Negative [facility] Comment on above: Order Comment: ZOYA CTOR TO SPECIFY Result Comment: PER SAMEER NURSE OK TO CANCEL DUPLICATE ORDER Performed By: #### L 400.0001 ####[facility] [address] [place], [address] RBC Normal 0-5 [facility] Comment on above: Order Comment: ZOYA CTOR TO SPECIFY Result Comment: PER SAMEER NURSE OK TO CANCEL DUPLICATE ORDER Performed By: #### L 400.0001 ####[facility] [address] [place], [address] SP.GR. DIPSTX Normal 1.002-1.030 [facility] Comment on above: Order Comment: ZOYA CTOR TO SPECIFY Result Comment: PER SAMEER NURSE OK TO CANCEL DUPLICATE ORDER Performed By: #### L 400.0001 ####[facility] [address] [place], [address] UR Preservative Normal [facility] Comment on above: Order Comment: COLLE CTOR TO SPECIFY Result Comment: PER SAMEER NURSE OK TO CANCEL DUPLICATE ORDER Performed By: #### L 400.0001 ####[facility] [address] [place], [address] UROBILI Normal Normal [facility] Comment on above: Order Comment: COLLE CTOR TO SPECIFY Result Comment: PER SAMEER NURSE OK TO CANCEL DUPLICATE ORDER Performed By: #### L 400.0001 ####[facility] [address] [place], [address] WBC Normal 0-5 [facility] Comment on above: Order Comment: COLLE CTOR TO SPECIFY Result Comment: PER SAMEER NURSE OK TO CANCEL DUPLICATE ORDER Performed By: #### L 400.0001 ####[facility] [address] [place], [address] Urine Sodiumon 06-05-2025 Sodium (U) [Moles/Vol] 105 mmol/L Normal Not Establ. [facility] Comment on above: Performed By: #### L 400.0001, L501.5500, L501.1200 ####[facility] [address] [place], [address] Urine clarityOrdered By: Aut umn White on 06-05-2025 Clarity (U) Clear Clear [facility] Urine color determinationOrd ered By: White on 06-05-2025 Color (U) Yellow Yellow [facility] Urine cultureOrdered By: Aut umn White on 06-05-2025 Bacteria identified Cx Nom (U) Culture exhibits no growth. [facility] Bacteria identified Cx Nom (U) Culture exhibits no growth. [facility] Urine glucose detectionOrder ed By: White on 06-05-2025 Glucose Ql (U) 100 mg/dl High Normal [facility] Urine leukocyte esterase det ection by dipstickOrdered By: Tabby Zuniga on 06-05-2025 Leukocyte esterase Test strip Ql (U) Negative Negative [facility] Urine pHOrdered By: Tabby Prasad deirdre on 06-05-2025 pH (U) 6.0 [pH] 5.0 - 8.0 [facility] Urine sediment bacteria coun t by microscopy (number/high power field)Ordered By: Tabby Efrain on 06-05-2025 Bacteria LM.HPF (Urine sed) [#/Area] 0 /[HPF] None Seen [facility] Urine sediment renal epithel ial cell count by microscopy (number/high power field)Ordered By: Tabby Efrain on 06-05-2025 Epithelial cells.renal LM.HPF (Urine sed) [#/Area] 0 /[HPF] 0-5 [facility] Urine sodium measurement (mo les/volume)Ordered By: Tabby Efrain on 06-05-2025 Sodium (U) [Moles/Vol] 105 mmol/L Not Establ. [facility] Urine specific gravity measu rementOrdered By: Tabby Efrain on 06-05-2025 Specific gravity (U) [Rel density] 1.015 1.002-1.030 [facility] Urine urobilinogen measureme ntOrdered By: Tabby Efrain on 06-05-2025 Urobilinogen Ql (U) Normal mg/dl Normal [facility] Venous Blood Gason 5 Blood Gas Type JUDY Normal [facility] Comment on above: Performed By: #### L 9000.0810 ####[facility] [address] [place], [place], [id number] CO2 [Moles/Vol] 18 mmol/L Low 23-33 [facility] Comment on above: Performed By: #### L 9000.0810 ####[facility] [address] [place], [address] HCO3 (Bld) [Moles/Vol] 17 mmol/L Low 22-26 [facility] Comment on above: Performed By: #### L 9000.0810 ####[facility] [address] [place], [place], [phone] Delivery Dev Not entered Normal [facility] Comment on above: Performed By: #### L 9000.0810 ####[facility] [address] [place], [address] SITE Not entered Normal [facility] Comment on above: Performed By: #### L 9000.0810 ####[facility] [address] [place], [address] VBG BE -7 mmol/L Low -1.0-3.5 [facility] Comment on above: Performed By: #### L 9000.0810 ####[facility] [address] [place], [address] VBG pCO2 24.8 mmHg Low 41-51 [facility] Comment on above: Performed By: #### L 9000.0810 ####[facility] [address] [place], [address] VBG pH 7.44 High 7.32-7.42 [facility] Comment on above: Performed By: #### L 9000.0810 ####[facility] [address] [place], [address] VBG PO2 184 mmHg High 25-40 [facility] Comment on above: Performed By: #### L 9000.0810 ####[facility] [address] [place], [address] VBG SO2 100 High 50-70 [facility] Comment on above: Performed By: #### L 9000.0810 ####[facility] [address] [place], [address] Venous blood base excess onelia surementOrdered By: Richi Hope on 06-05-2025 Base excess Calc (BldV) [Moles/Vol] -7 mmol/L Low -1.0-3.5 [facility] Venous blood bicarbonate onelia surementOrdered By: Richi Hope on 06-05-2025 HCO3 (Bld) [Moles/Vol] 17 mmol/L Low 22-26 [facility] Venous blood pH measurementO rdered By: Richi Hope on 06-05-2025 pH (BldV) 7.44 [pH] High 7.32-7.42 [facility] Venous blood partial pressur e of carbon dioxide measurementOrdered By: Richi Hope on 06-05-2025 CO2 (BldV) [Partial pressure] 24.8 mm[Hg] Low 41-51 [facility] Venous blood partial pressur e of oxygen measurementOrdered By: Richi Hope on 06-05-2025 Oxygen (BldV) [Partial pressure] 184 mm[Hg] High 25-40 [facility] White blood cell countOrdere d By: Tabby Zuniga on 06-05-2025 White blood cell count 0-5 SEEN /hpf 0-5 [facility] MR/PAT.ANEon 05-28-2025 MR/PAT.ANE Normal [facility] MR/BMS.BVSon 05-12-2025 MR/BMS.BVS Normal [facility] [id number] 05-11-2025 [facility] Misc. COMMENT Normal . [facility] Comment on above: Order Comment: [id number] 4STOOL CULTURE Result Comment: Test Ordered: [id number] Stool CultureSalmonella/Shigella Screen Note: Final report Reference Range: .Result 1 Comment CB Reference Range: .No Salmonella or Shigella recovered.Campylobacter Culture Note: CB Final report Reference Range: .Result 1 Comment CB Reference Range: .No Campylobacter species isolated.E coli Shiga Toxin EIA Negative Reference Range: NegativePerformed at: - [facility] [address] [id number] Director: Ciaran Sethi PhD, Phone: [phone] Performed By: #### L 8499.5420, G953.9255, L2599.3443 ####[facility] [address] [place], [place], [id number] Fecal Fat, Qualitativeon FATS, NEUTRAL Normal Normal . [facility] Comment on above: Order Comment: Test( s) 735289-[id number], Neutral; [id number]-Zawp, Totalwas developed and its performance characteristicsdetermined by [facility]. It has not been cleared or approvedby the Food and Drug Administration. Result Comment: Norm al (<60 Droplets/HPF) Performed By: #### L 3410.9992, M100.0605, L7000.0300 ####[facility] [address] [facility] 8[address] FATS, TOTAL Normal Normal . [facility] Comment on above: Order Comment: Test( s) 135174-Jxsl, Neutral; [id number]-Lzgu, Totalwas developed and its performance characteristicsdetermined by [facility]. It has not been cleared or approvedby the Food and Drug Administration. Result Comment: Norm al (<100 Droplets/HPF)Performed at: [address] [id number] Director: Ciaran Sethi PhD, Phone: [phone] Performed By: #### L 3410.9992, M100.0605, L7000.0300 ####[facility] [address] [place], [place], [id number] Fecal fat detectionOrdered B y: Briseyda Sinclair on 05-06-2025 Fat Ql (Stl) Normal . [facility] Comment on above: Normal (<100 Droplet s/HPF)Performed at: [address] [id number] Director: Ciaran Sethi PhD, Phone: [phone] No Panel InformationOrdered By: Briseyda Sinclair on 05-06-2025 Stool Neutral Fats Normal . [facility] Comment on above: Normal (<60 Droplets /HPF) Normal . [facility] Stool Lactoferrin/WBCon 04-17 WBCST Normal Reference Ran ge = Negative Fecal WBC Lactoferrin Negative: No Fecal WBC Lactoferrin present Normal [facility] Comment on above: Performed By: #### L 3410.9992, M100.0605, L7000.0300 ####[facility] [address] [place], [place], [address] Stool lactoferrin detection by immunoassayOrdered By: Briseyda Sinclair on 05-06-2025 Lactoferrin IA Ql (Stl) [facility] Lactoferrin IA Ql (Stl) [facility] MR/BMS.IMBon 05-03-2025 MR/BMS.IMB Normal [facility] Cardiology Visit Reporton Cardiology Visit Report Normal [facility] Neurology Visit Reporton Neurology Visit Report Normal [facility] 36on 04-01-2025 36 Pt's say pt daniel t to ED in [place] due to chest pressure, dizziness and arm numbness. 03/29/2025. 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 Cardiology d/c'd Brilinta and restarted pt on Plavix. Normal [facility] 12 Lead EKGon 03-29-2025 12 Lead EKG Normal [facility] Absolute lymphocyte countOrd ered By: Ravinder Vance on 03-29-2025 Lymphocytes Auto (Unsp spec) [#/Vol] 1.57 10*3/uL 0.83-4.51 [facility] Absolute neutrophil countOrd ered By: Ravinder Vance on 03-29-2025 Neutrophils (Bld) [#/Vol] 2.5 10*3/uL 2.0-7.7 [facility] Anion gap in Serum or Plasma Ordered By: Ravinder Vance on 03-29-2025 Anion gap [Moles/Vol] 14 mmol/L 5- [facility] BUN/creatinine ratioOrdered By: Ravinder Vance on 03-29-2025 Urea nitrogen/Creatinine [Mass ratio] 21.1 mg/mg High - [facility] Basic Metabolic Profile (BMP )on 03-29-2025 BUN/CRE 21.1 RATIO High 07-05 [facility] Comment on above: Performed By: #### L 501.2450, L500.2500, L100.0100, L500.3400, L501.5200 ####[facility] [address] [place], [address] Calcium [Mass/Vol] 10.1 mg/dL Normal 7.6-11.0 [facility] Comment on above: Performed By: #### L 501.2450, L500.2500, L100.0100, L500.3400, L501.5200 ####[facility] [address] [place], [address] Chloride [Moles/Vol] 106 mmol/L Normal 98-108 [facility] Comment on above: Performed By: #### L 501.2450, L500.2500, L100.0100, L500.3400, L501.5200 ####[facility] [address] [place], [address] CO2 [Moles/Vol] 22.2 mmol/L Normal 21.0-32.0 [facility] Comment on above: Performed By: #### L 501.2450, L500.2500, L100.0100, L500.3400, L501.5200 ####[facility] [address] [place], [address] Creatinine [Mass/Vol] 1.63 mg/dL High 0.70-1.20 [facility] Comment on above: Performed By: #### L 501.2450, L500.2500, L100.0100, L500.3400, L501.5200 ####[facility] [address] [place], [address] ECRCL 40.60 ml/min Low 50-250 [facility] Comment on above: Performed By: #### L 501.2450, L500.2500, L100.0100, L500.3400, L501.5200 ####[facility] [address] [place], [address] GAP 14 Normal 5-15 [facility] Comment on above: Performed By: #### L 501.2450, L500.2500, L100.0100, L500.3400, L501.5200 ####[facility] [address] [place], [address] GFR/1.73 sq M.predicted among non-blacks MDRD (S/P/Bld) [Vol rate/Area] 44 mL/min/{1.73_m2} Low >60 [facility] Comment on above: Result Comment: mL/m in/1.73m2 CKD-EPI Creatinine Equation (2020) Performed By: #### L 501.2450, L500.2500, L100.0100, L500.3400, L501.5200 ####[facility] [address] [place], [address] Glucose [Mass/Vol] 136 mg/dL High 70-99 [facility] Comment on above: Performed By: #### L 501.2450, L500.2500, L100.0100, L500.3400, L501.5200 ####[facility] [address] [place], [address] Potassium [Moles/Vol] 4.2 mmol/L Normal 3.3-5.1 [facility] Comment on above: Performed By: #### L 501.2450, L500.2500, L100.0100, L500.3400, L501.5200 ####[facility] [address] [place], [address] Sodium [Moles/Vol] 142 mmol/L Normal 133-145 [facility] Comment on above: Performed By: #### L 501.2450, L500.2500, L100.0100, L500.3400, L501.5200 ####[facility] [address] [place], [address] Urea nitrogen [Mass/Vol] 34 mg/dL High 4-19 [facility] Comment on above: Performed By: #### L 501.2450, L500.2500, L100.0100, L500.3400, L501.5200 ####[facility] [address] [place], [address] Basophil percentageOrdered B y: Ravinder Vance on 03-29-2025 Basophils/100 WBC (Bld) 0.6 % 0-1 [facility] Bilirubin directOrdered By: Ravinder Vance on 03-29-2025 Bilirubin.direct [Mass/Vol] 0.20 mg/dL 0.00-0.30 [facility] Bilirubin, totalOrdered By: Ravinder Vance on 03-29-2025 Bilirubin [Mass/Vol] 0.49 mg/dL 0.00-1.30 [facility] Blood platelets count (numbe r/volume)Ordered By: Ravinder Vance on 03-29-2025 Platelets (Bld) [#/Vol] 238 10*3/uL 150-450 [facility] CBC W/Diff, Automatedon 03-16 Absolute Lymph 1.57 X10 3/uL Normal 0.83-4.51 [facility] Comment on above: Performed By: #### L 501.2450, L500.2500, L100.0100, L500.3400, L501.5200 ####[facility] [address] [place], [address] Absolute Neut 2.5 X10 3/uL Normal 2.0-7.7 [facility] Comment on above: Performed By: #### L 501.2450, L500.2500, L100.0100, L500.3400, L501.5200 ####[facility] [address] [place], [address] Basophils/100 WBC (Bld) 0.6 % Normal 0-1 [facility] Comment on above: Performed By: #### L 501.2450, L500.2500, L100.0100, L500.3400, L501.5200 ####[facility] [address] [place], [address] Eosinophils/100 WBC (Bld) 6.7 % High 0-5 [facility] Comment on above: Performed By: #### L 501.2450, L500.2500, L100.0100, L500.3400, L501.5200 ####[facility] [address] [place], [address] Erythrocyte distribution width (RBC) [Ratio] 13.0 % Normal 11.6-14.6 [facility] Comment on above: Performed By: #### L 501.2450, L500.2500, L100.0100, L500.3400, L501.5200 ####[facility] [address] [place], [address] IG% 0.200 Normal 0.0-0.9 [facility] Comment on above: Result Comment: IG% - Immature Granulocytes (promyelocytes, myelocytes andmetamyelocytes) > 1% indicates that a LEFT SHIFT is Present. Performed By: #### L 501.2450, L500.2500, L100.0100, L500.3400, L501.5200 ####[facility] [address] [place], [address] Lymphocytes/100 WBC (Bld) 31.8 % Normal 19-41 [facility] Comment on above: Performed By: #### L 501.2450, L500.2500, L100.0100, L500.3400, L501.5200 ####[facility] [address] [place], [address] MCH (RBC) [Entitic mass] 31.3 pg Normal 27.0-32.0 [facility] Comment on above: Performed By: #### L 501.2450, L500.2500, L100.0100, L500.3400, L501.5200 ####[facility] [address] [place], [address] MCHC (RBC) [Mass/Vol] 34.4 g/dL Normal 32-36 [facility] Comment on above: Performed By: #### L 501.2450, L500.2500, L100.0100, L500.3400, L501.5200 ####[facility] [address] [place], [address] Monocytes/100 WBC (Bld) 10.5 % High 0-10 [facility] Comment on above: Performed By: #### L 501.2450, L500.2500, L100.0100, L500.3400, L501.5200 ####[facility] [address] [place], [address] Neutrophils/100 WBC (Bld) 50.2 % Normal 47-70 [facility] Comment on above: Performed By: #### L 501.2450, L500.2500, L100.0100, L500.3400, L501.5200 ####[facility] [address] [place], [address] Platelet mean volume (Bld) [Entitic vol] 9.9 fL Normal 6.2-12.0 [facility] Comment on above: Performed By: #### L 501.2450, L500.2500, L100.0100, L500.3400, L501.5200 ####[facility] [address] [place], [address] Platelets (Bld) [#/Vol] 238 10*3/uL Normal 150-450 [facility] Comment on above: Performed By: #### L 501.2450, L500.2500, L100.0100, L500.3400, L501.5200 ####[facility] [address] [place], [address] RDW SD 42.4 fl Normal 35.1-43.9 [facility] Comment on above: Performed By: #### L 501.2450, L500.2500, L100.0100, L500.3400, L501.5200 ####[facility] [address] [place], [address] Hematocrit (Bld) [Volume fraction] 34.3 % Low 40-54 [facility] Comment on above: Performed By: #### L 501.2450, L500.2500, L100.0100, L500.3400, L501.5200 ####[facility] [address] [place], [address] Hemoglobin (Bld) [Mass/Vol] 11.8 g/dL Low 13.0-16.5 [facility] Comment on above: Performed By: #### L 501.2450, L500.2500, L100.0100, L500.3400, L501.5200 ####[facility] [address] [place], [address] MCV (RBC) [Entitic vol] 91.0 fL Normal 80-94 [facility] Comment on above: Performed By: #### L 501.2450, L500.2500, L100.0100, L500.3400, L501.5200 ####[facility] [address] [place], [address] RBC (Bld) [#/Vol] 3.77 10*6/uL Low 4.6-6.2 [facility] Comment on above: Performed By: #### L 501.2450, L500.2500, L100.0100, L500.3400, L501.5200 ####[facility] [address] [place], [address] WBC (Bld) [#/Vol] 4.9 10*3/uL Normal 4.4-11.0 [facility] Comment on above: Performed By: #### L 501.2450, L500.2500, L100.0100, L500.3400, L501.5200 ####[facility] [address] [place], [place], [id number] Carbon dioxide, total [Moles /volume] in Central venous bloodOrdered By: Ravinder Vance on 03-29-2025 CO2 [Moles/Vol] 22.2 mmol/L 21.0-32.0 [facility] Chest PA and Lateralon 03-29 Chest PA and Lateral Normal [facility] Chloride assayOrdered By: Piper Vance on 03-29-2025 Chloride [Moles/Vol] 106 mmol/L 98-108 [facility] Emergency Department Summary on 03-29-2025 Emergency Department Summary Normal [facility] Eosinophil %Ordered By: Arron Vance on 03-29-2025 Eosinophils/100 WBC (Bld) 6.7 % High 0-5 [facility] Erythrocyte distribution wid th ratioOrdered By: Ravinder Vance on 03-29-2025 Erythrocyte distribution width (RBC) [Ratio] 13.0 % 11.6-14.6 [facility] Glomerular filtration rate ( GFR) estimation/1.73 sq m using serum, plasma, or whole bOrdered By: Ravinder Vance on 03-29-2025 GFR/1.73 sq M.predicted among non-blacks MDRD (S/P/Bld) [Vol rate/Area] 44 mL/min/{1.73_m2} Low >60 [facility] Comment on above: mL/min/1.73m2 CKD-EP I Creatinine Equation (2020) Hematocrit Auto (Bld) [Volum e fraction]Ordered By: Ravinder Vance on 03-29-2025 Hematocrit (Bld) [Volume fraction] 34.3 % Low 40-54 [facility] Hemoglobin measurementOrdere d By: Ravinder Vance on 03-29-2025 Hemoglobin (Bld) [Mass/Vol] 11.8 g/dL Low 13.0-16.5 [facility] Immature granulocyte percent ageOrdered By: Ravinder Vance on 03-29-2025 Immature granulocytes/100 WBC (Bld) 0.200 % 0.0-0.9 [facility] Comment on above: IG% - Immature Granu locytes (promyelocytes, myelocytes and metamyelocytes) > 1% indicates that a LEFT SHIFT is Present. L499.0042on 03-29-2025 Trop T High Sen 35 ng/L High <=22 [facility] Comment on above: Performed By: #### L 499.0042 ####[facility] [address] [place], [address] L499.0043on 03-29-2025 Trop T High Sen Normal <=22 [facility] Comment on above: Result Comment: Canc elled via OM: Order cancelled - Patient discharged Performed By: #### L 499.0043 ####[facility] [address] [place], [address] L501.4021on 03-29-2025 Trop T High Sen 39 ng/L High <=22 [facility] Comment on above: Performed By: #### L 501.4021 ####[facility] [address] [place], [address] Laboratory - Chemistry and C hemistry - challengeOrdered By: Ravinder Vance on 03-29-2025 AST [Catalytic activity/Vol] 17 U/L <38 [facility] Lipaseon 03-29-2025 Lipase [Catalytic activity/Vol] 32 U/L Normal 13-75 [facility] Comment on above: Result Comment: Plea se note:LIPASE revised reference range effective 22.New Lipase methodology. Expected to produce lower valuesthan the previous assay method.NEW Reference Range: 13 - 75 U/L Performed By: #### L 501.2450, L500.2500, L100.0100, L500.3400, L501.5200 ####[facility] [address] [place], [address] Lipase measurementOrdered By : Ravinder Vance on 03-29-2025 Lipase [Catalytic activity/Vol] 32 U/L 13-75 [facility] Comment on above: Please note:LIPASE r evised reference range effective 22. New Lipase methodology. Expected to produce lower values than the previous assay method. NEW Reference Range: 13 - 75 U/L Liver Profileon 03-29-2025 Albumin [Mass/Vol] 4.2 g/dL Normal 3.4-4.8 [facility] Comment on above: Performed By: #### L 501.2450, L500.2500, L100.0100, L500.3400, L501.5200 ####[facility] [address] [place], [address] ALK PHOS 75 U/L Normal 40-129 [facility] Comment on above: Performed By: #### L 501.2450, L500.2500, L100.0100, L500.3400, L501.5200 ####[facility] [address] [place], [address] ALT [Catalytic activity/Vol] 24 U/L Normal <=46 [facility] Comment on above: Performed By: #### L 501.2450, L500.2500, L100.0100, L500.3400, L501.5200 ####[facility] [address] [place], [address] AST [Catalytic activity/Vol] 17 U/L Normal <=37 [facility] Comment on above: Performed By: #### L 501.2450, L500.2500, L100.0100, L500.3400, L501.5200 ####[facility] [address] [place], [address] Bilirubin [Mass/Vol] 0.49 mg/dL Normal 0.00-1.30 [facility] Comment on above: Performed By: #### L 501.2450, L500.2500, L100.0100, L500.3400, L501.5200 ####[facility] [address] [place], [address] Bilirubin.direct [Mass/Vol] 0.20 mg/dL Normal 0.00-0.30 [facility] Comment on above: Performed By: #### L 501.2450, L500.2500, L100.0100, L500.3400, L501.5200 ####[facility] [address] [place], [address] Globulin (S) [Mass/Vol] 2.6 g/dL Normal 2.2-4.2 [facility] Comment on above: Performed By: #### L 501.2450, L500.2500, L100.0100, L500.3400, L501.5200 ####[facility] [address] [place], [address] T PROT 6.8 g/dL Normal 5.9-8.4 [facility] Comment on above: Performed By: #### L 501.2450, L500.2500, L100.0100, L500.3400, L501.5200 ####[facility] [address] [place], [address] Lymphocyte %Ordered By: Arron Vance on 03-29-2025 Lymphocytes/100 WBC (Bld) 31.8 % 19-41 [facility] MCV (mean corpuscular volume ) determinationOrdered By: Ravinder Vance on 03-29-2025 MCV (RBC) [Entitic vol] 91.0 fL 80-94 [facility] Magnesiumon 03-29-2025 Magnesium [Mass/Vol] 1.1 mg/dL Low 1.5-2.2 [facility] Comment on above: Performed By: #### L 501.2450, L500.2500, L100.0100, L500.3400, L501.5200 ####[facility] [address] [place], [address] Magnesium measurement (mass/ volume)Ordered By: Ravinder Vance on 03-29-2025 Magnesium (Unsp spec) [Mass/Vol] 1.1 mg/dL Low 1.5-2.2 [facility] Mean corpuscular hemoglobin (MCH) determinationOrdered By: Ravinder Vance on 03-29-2025 MCH (RBC) [Entitic mass] 31.3 pg 27.0-32.0 [facility] Mean corpuscular hemoglobin concentration (MCHC) determinationOrdered By: Ravinder Vance on 03-29-2025 MCHC (RBC) [Mass/Vol] 34.4 g/dL 32-36 [facility] Mean platelet volume determi nationOrdered By: Ravinder Vance on 03-29-2025 Platelet mean volume (Bld) [Entitic vol] 9.9 fL 6.2-12.0 [facility] Monocyte percentageOrdered B y: Ravinder Vance on 03-29-2025 Monocytes/100 WBC (Bld) 10.5 % High 0-10 [facility] Neutrophil %Ordered By: Arron Vance on 03-29-2025 Neutrophils/100 WBC (Bld) 50.2 % 47-70 [facility] No Panel InformationOrdered By: Ravinder Vance on 03-29-2025 17 U/L <38 [facility] Potassium measurement (mass/ volume)Ordered By: Ravinder Vance on 03-29-2025 Potassium (Unsp spec) [Mass/Vol] 4.2 mmol/L 3.3-5.1 [facility] RBC Auto (Bld) [#/Vol]Ordere d By: Ravinder Vance on 03-29-2025 RBC (Bld) [#/Vol] 3.77 10*6/uL Low 4.6-6.2 [facility] RDWOrdered By: Ravinder Vance on 03-29-2025 RDW 42.4 fl 35.1-43.9 [facility] Serum creatinine measurement (mass/volume)Ordered By: Ravinder Vance on 03-29-2025 Creatinine [Mass/Vol] 1.63 mg/dL High 0.70-1.20 [facility] Serum globulin measurementOr dered By: Ravinder Vance on 03-29-2025 Globulin (S) [Mass/Vol] 2.6 g/dL 2.2-4.2 [facility] Serum glucose measurement (m ass/volume)Ordered By: Ravinder Vance on 03-29-2025 Glucose [Mass/Vol] 136 mg/dL High 70-99 [facility] Serum or plasma alanine denis otransferase (ALT) measurementOrdered By: Ravinder Vance on 03-29-2025 ALT [Catalytic activity/Vol] 24 U/L <47 [facility] Serum or plasma albumin makeda urement (mass/volume)Ordered By: Ravinder Vance on 03-29-2025 Albumin [Mass/Vol] 4.2 g/dL 3.4-4.8 [facility] Serum or plasma alkaline neisha sphatase measurementOrdered By: Ravinder Vacne on 03-29-2025 ALP [Catalytic activity/Vol] 75 U/L 40-129 [facility] Serum or plasma calcium makeda urement (mass/volume)Ordered By: Ravinder Vance on 03-29-2025 Calcium [Mass/Vol] 10.1 mg/dL 7.6-11.0 [facility] Serum or plasma urea nitroge n measurement (mass/volume)Ordered By: Ravinder Vance on 03-29-2025 Urea nitrogen [Mass/Vol] 34 mg/dL High 4-19 [facility] Sodium levelOrdered By: Arron Vance on 03-29-2025 Sodium [Moles/Vol] 142 mmol/L 133-145 [facility] Total proteinOrdered By: Elmer Vance on 03-29-2025 Protein [Mass/Vol] 6.8 g/dL 5.9-8.4 [facility] Troponin T.cardiac [Mass/vol ume] in Serum or Plasma by High sensitivity methodOrdered By: Ravinder Vance on 03-29-2025 Troponin T.cardiac High sensitivity method [Mass/Vol] 35 ng/L High <22 [facility] Troponin T.cardiac High sensitivity method [Mass/Vol] 39 ng/L High <22 [facility] Comment on above: Delta: 42 on 5-1446 White blood cell (WBC) count Ordered By: Ravinder Vance on 03-29-2025 WBC (Bld) [#/Vol] 4.9 10*3/uL 4.4-11.0 [facility] 36on 03-26-2025 36 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 Normal [facility] D/C Summary- SPon 03-22-2025 D/C Summary- SP Normal [facility] PRU TEST (P2Y12)on PRU TEST (P2Y12) 191 Normal >=180 [facility] Comment on above: Result Comment: >180 - 376 PRU [P2Y12 Reaction Units] - No drug present 10-180 PRU [P2Y12 Reaction Units] - Decreased platelet reactivity to P2Y12 inhibitor. Performed By: #### L [id number] #### Felt Checker: AURELIANO ARCHIBALD ([id number]) [facility] ([address] 36on 03-11-2025 36 I did. Normal [facility] 36on 03-05-2025 36 Name of caller: Kaelyn Contact phone number: [phone] Relationship to Patient: [facility] Outreach Lab Provider: Dr. Blackman Practice: Endovascular Chief Complaint/Reason for Call: Patient PRU lab was cancelled due to wrong color tube. If patient testing needs completed please reorder testing. Lab needs a christine tube, not a long top blue. Best time of day caller can be reached: any Patient advised that office/PCP has 24-48 business hours to return their call: Yes [facility] Office Visiton 03-04-2025 Follow-up visit [id number] Titus Davies am 1950 M Date Provider Department Center 03/04/2025 [id number] BLACKMAN [facility] NRO None Family History Problem Relation Age of Onset Diabetes Mother Diabetes Father Esophageal cancer Brother Bone cancer Brother Prostate cancer Brother Diabetes Brother Family Status - Relation Status Age at Mother Father Brother Brother Brother Alive Level of Service:55687 [place] OFFICE/OUTPATIENT NEW MODERATE MDM 45 MINUTES Reason for Visit and Comments: New Patient [542] - aneurysm Normal [facility] Progress Noteon 03-04-2025 Progress Note History [...] tablet, , Disp: , Rfl: Droplet Pen Butler 32G X 6 MM [facility], , Disp: , Rfl: famotidine (Pepcid) 20 MG tablet, , Disp: , Rfl: glimepiride (Amaryl) 4 MG tablet, , Disp: , Rfl: isosorbide mononitrate ER (Imdur) 30 MG 24 hr tablet, , Disp: , Rfl: Lancets (OneTouch Delica Plus Bpcoso99L) [facility], USE TO TEST BLOOD SUGAR TWICE DAILY [...] the pat (more content not included)... Normal [facility] 36on 02-17-2025 36 Name of caller: Abena morgan Contact phone number: [phone] Relationship to Patient: spouse/SO Provider: Dr. Blackman [...] hours to return their call: Yes Normal [facility] Neurology Visit Reporton Neurology Visit Report Normal [facility] Laboratory - Microbiology an d Antimicrobial susceptibilityOrdered By: Brenda Tovar on 02-06-2025 SARS-CoV-2 (COVID-19) RNA LIZ+probe Ql (Unsp spec) Not detected [facility] No Panel InformationOrdered By: Brenda Tovar on 02-06-2025 Influenza Types A,B Rapid (Clinic) Negative [facility] Urgent Care Visit Reporton 0 02-06-2025 Urgent Care Visit Report Normal [facility] MR/BMS.BVSon 02-01-2025 MR/BMS.BVS Normal [facility] MR/BMS.IMBon 01-27-2025 MR/BMS.IMB Normal [facility] PSA,Total - Annual Screenon 01-25-2025 PSA,TOT SCREEN 3.91 ng/mL Normal 0.02-4.00 [facility] Comment on above: Result Comment: This test was performed using the [employer] tPSAmethod. Measured values of a patient??sample can varydepending on the testing procedure used. PSA valuesdetermined on patient samples by different testingprocedures cannot be used interchangeably. If there is achange in PSA assays while monitoring therapy, sequentialtesting should be performed to confirm baseline values. Performed By: #### L 501.9910 ####[facility] [address] [place], [address] Basic Metabolic Profile (BMP )on 01-21-2025 BUN Normal 4-19 [facility] Comment on above: Result Comment: Canc elled via OM: Order cancelled - Patient discharged Performed By: #### L 100.0100, L500.2500 ####[facility] [address] [place], [address] BUN/CRE Normal 10-20 [facility] Comment on above: Result Comment: Canc elled via OM: Order cancelled - Patient discharged Performed By: #### L 100.0100, L500.2500 ####[facility] [address] [place], [address] Calcium Normal 7.6-11.0 [facility] Comment on above: Result Comment: Canc elled via OM: Order cancelled - Patient discharged Performed By: #### L 100.0100, L500.2500 ####[facility] [address] [place], [place], [address] CL Normal 98-108 [facility] Comment on above: Result Comment: Canc elled via OM: Order cancelled - Patient discharged Performed By: #### L 100.0100, L500.2500 ####[facility] [address] [place], [address] CO2 Normal 21.0-32.0 [facility] Comment on above: Result Comment: Canc elled via OM: Order cancelled - Patient discharged Performed By: #### L 100.0100, L500.2500 ####[facility] [address] [place], [address] CREAT,SERUM Normal 0.70-1.20 [facility] Comment on above: Result Comment: Canc elled via OM: Order cancelled - Patient discharged Performed By: #### L 100.0100, L500.2500 ####[facility] [address] [place], [address] eGFR Normal >60 [facility] Comment on above: Result Comment: Canc elled via OM: Order cancelled - Patient discharged Performed By: #### L 100.0100, L500.2500 ####[facility] [address] [place], [address] GAP Normal 5-15 [facility] Comment on above: Result Comment: Canc elled via OM: Order cancelled - Patient discharged Performed By: #### L 100.0100, L500.2500 ####[facility] [address] [place], [address] GLU Normal 70-99 [facility] Comment on above: Result Comment: Canc elled via OM: Order cancelled - Patient discharged Performed By: #### L 100.0100, L500.2500 ####[facility] [address] [place], [address] Potassium Normal 3.3-5.1 [facility] Comment on above: Result Comment: Canc elled via OM: Order cancelled - Patient discharged Performed By: #### L 100.0100, L500.2500 ####[facility] [address] [place], [address] Basic Metabolic Profile (BMP) Normal 133-145 [facility] Comment on above: Result Comment: Canc elled via OM: Order cancelled - Patient discharged Performed By: #### L 100.0100, L500.2500 ####[facility] [address] [place], [address] CBC W/Diff, Automatedon 05-0 -2024 Absolute Neut Normal 2.0-7.7 [facility] Comment on above: Result Comment: Canc elled via OM: Order cancelled - Patient discharged Performed By: #### L 100.0100, L500.2500 ####[facility] [address] [place], [address] HCT Normal 40-54 [facility] Comment on above: Result Comment: Canc elled via OM: Order cancelled - Patient discharged Performed By: #### L 100.0100, L500.2500 ####[facility] [address] [place], [address] HGB Normal 13.0-16.5 [facility] Comment on above: Result Comment: Canc elled via OM: Order cancelled - Patient discharged Performed By: #### L 100.0100, L500.2500 ####[facility] [address] [place], [address] MCH Normal 27.0-32.0 [facility] Comment on above: Result Comment: Canc elled via OM: Order cancelled - Patient discharged Performed By: #### L 100.0100, L500.2500 ####[facility] [address] [place], [address] MCHC Normal 32-36 [facility] Comment on above: Result Comment: Canc elled via OM: Order cancelled - Patient discharged Performed By: #### L 100.0100, L500.2500 ####[facility] [address] [place], [address] MCV Normal 80-94 [facility] Comment on above: Result Comment: Canc elled via OM: Order cancelled - Patient discharged Performed By: #### L 100.0100, L500.2500 ####[facility] [address] [place], [address] NEUT% Normal 47-70 [facility] Comment on above: Result Comment: Canc elled via OM: Order cancelled - Patient discharged Performed By: #### L 100.0100, L500.2500 ####[facility] [address] [place], [address] PLT Normal 150-450 [facility] Comment on above: Result Comment: Canc elled via OM: Order cancelled - Patient discharged Performed By: #### L 100.0100, L500.2500 ####[facility] [address] [place], [address] RBC Normal 4.6-6.2 [facility] Comment on above: Result Comment: Canc elled via OM: Order cancelled - Patient discharged Performed By: #### L 100.0100, L500.2500 ####[facility] [address] [place], [address] RDW CV Normal 11.6-14.6 [facility] Comment on above: Result Comment: Canc elled via OM: Order cancelled - Patient discharged Performed By: #### L 100.0100, L500.2500 ####[facility] [address] [place], [address] RDW SD Normal 35.1-43.9 [facility] Comment on above: Result Comment: Canc elled via OM: Order cancelled - Patient discharged Performed By: #### L 100.0100, L500.2500 ####[facility] [address] [place], [address] WBC Normal 4.4-11.0 [facility] Comment on above: Result Comment: Canc elled via OM: Order cancelled - Patient discharged Performed By: #### L 100.0100, L500.2500 ####[facility] [address] [place], [address] Basic Metabolic Profile (BMP )on 01-20-2025 BUN Normal 4-19 [facility] Comment on above: Result Comment: Canc elled via OM: Order cancelled - Patient discharged Performed By: #### L 100.0100, L500.2500 ####[facility] [address] [place], [address] BUN/CRE Normal 10-20 [facility] Comment on above: Result Comment: Canc elled via OM: Order cancelled - Patient discharged Performed By: #### L 100.0100, L500.2500 ####[facility] [address] [place], [address] Calcium Normal 7.6-11.0 [facility] Comment on above: Result Comment: Canc elled via OM: Order cancelled - Patient discharged Performed By: #### L 100.0100, L500.2500 ####[facility] [address] [place], [address] CL Normal 98-108 [facility] Comment on above: Result Comment: Canc elled via OM: Order cancelled - Patient discharged Performed By: #### L 100.0100, L500.2500 ####[facility] [address] [place], [address] CO2 Normal 21.0-32.0 [facility] Comment on above: Result Comment: Canc elled via OM: Order cancelled - Patient discharged Performed By: #### L 100.0100, L500.2500 ####[facility] [address] [place], [address] CREAT,SERUM Normal 0.70-1.20 [facility] Comment on above: Result Comment: Canc elled via OM: Order cancelled - Patient discharged Performed By: #### L 100.0100, L500.2500 ####[facility] [address] [place], [address] eGFR Normal >60 [facility] Comment on above: Result Comment: Canc elled via OM: Order cancelled - Patient discharged Performed By: #### L 100.0100, L500.2500 ####[facility] [address] [place], [address] GAP Normal 5-15 [facility] Comment on above: Result Comment: Canc elled via OM: Order cancelled - Patient discharged Performed By: #### L 100.0100, L500.2500 ####[facility] [address] [place], [address] GLU Normal 70-99 [facility] Comment on above: Result Comment: Canc elled via OM: Order cancelled - Patient discharged Performed By: #### L 100.0100, L500.2500 ####[facility] [address] [place], [address] Potassium Normal 3.3-5.1 [facility] Comment on above: Result Comment: Canc elled via OM: Order cancelled - Patient discharged Performed By: #### L 100.0100, L500.2500 ####[facility] [address] [place], [address] Basic Metabolic Profile (BMP) Normal 133-145 [facility] Comment on above: Result Comment: Canc elled via OM: Order cancelled - Patient discharged Performed By: #### L 100.0100, L500.2500 ####[facility] [address] [place], [address] CBC W/Diff, Automatedon 05-0 -2024 Absolute Neut Normal 2.0-7.7 [facility] Comment on above: Result Comment: Canc elled via OM: Order cancelled - Patient discharged Performed By: #### L 100.0100, L500.2500 ####[facility] [address] [place], [address] HCT Normal 40-54 [facility] Comment on above: Result Comment: Canc elled via OM: Order cancelled - Patient discharged Performed By: #### L 100.0100, L500.2500 ####[facility] [address] [place], [address] HGB Normal 13.0-16.5 [facility] Comment on above: Result Comment: Canc elled via OM: Order cancelled - Patient discharged Performed By: #### L 100.0100, L500.2500 ####[facility] [address] [place], [address] MCH Normal 27.0-32.0 [facility] Comment on above: Result Comment: Canc elled via OM: Order cancelled - Patient discharged Performed By: #### L 100.0100, L500.2500 ####[facility] [address] [place], [address] MCHC Normal 32-36 [facility] Comment on above: Result Comment: Canc elled via OM: Order cancelled - Patient discharged Performed By: #### L 100.0100, L500.2500 ####[facility] [address] [place], [address] MCV Normal 80-94 [facility] Comment on above: Result Comment: Canc elled via OM: Order cancelled - Patient discharged Performed By: #### L 100.0100, L500.2500 ####[facility] [address] [place], [address] NEUT% Normal 47-70 [facility] Comment on above: Result Comment: Canc elled via OM: Order cancelled - Patient discharged Performed By: #### L 100.0100, L500.2500 ####[facility] [address] [place], [address] PLT Normal 150-450 [facility] Comment on above: Result Comment: Canc elled via OM: Order cancelled - Patient discharged Performed By: #### L 100.0100, L500.2500 ####[facility] [address] [place], [address] RBC Normal 4.6-6.2 [facility] Comment on above: Result Comment: Canc elled via OM: Order cancelled - Patient discharged Performed By: #### L 100.0100, L500.2500 ####[facility] [address] [place], [address] RDW CV Normal 11.6-14.6 [facility] Comment on above: Result Comment: Canc elled via OM: Order cancelled - Patient discharged Performed By: #### L 100.0100, L500.2500 ####[facility] [address] [place], [address] RDW SD Normal 35.1-43.9 [facility] Comment on above: Result Comment: Canc elled via OM: Order cancelled - Patient discharged Performed By: #### L 100.0100, L500.2500 ####[facility] [address] [place], [address] WBC Normal 4.4-11.0 [facility] Comment on above: Result Comment: Canc elled via OM: Order cancelled - Patient discharged Performed By: #### L 100.0100, L500.2500 ####[facility] [address] [place], [address] Basic Metabolic Profile (BMP )on 01-19-2025 BUN Normal 4-19 [facility] Comment on above: Result Comment: Canc elled via OM: Order cancelled - Patient discharged Performed By: #### L 100.0100, L500.2500 ####[facility] [address] [place], [address] BUN/CRE Normal 10-20 [facility] Comment on above: Result Comment: Canc elled via OM: Order cancelled - Patient discharged Performed By: #### L 100.0100, L500.2500 ####[facility] [address] [place], [address] Calcium Normal 7.6-11.0 [facility] Comment on above: Result Comment: Canc elled via OM: Order cancelled - Patient discharged Performed By: #### L 100.0100, L500.2500 ####[facility] [address] [place], [address] CL Normal 98-108 [facility] Comment on above: Result Comment: Canc elled via OM: Order cancelled - Patient discharged Performed By: #### L 100.0100, L500.2500 ####[facility] [address] [place], [address] CO2 Normal 21.0-32.0 [facility] Comment on above: Result Comment: Canc elled via OM: Order cancelled - Patient discharged Performed By: #### L 100.0100, L500.2500 ####[facility] [address] [place], [address] CREAT,SERUM Normal 0.70-1.20 [facility] Comment on above: Result Comment: Canc elled via OM: Order cancelled - Patient discharged Performed By: #### L 100.0100, L500.2500 ####[facility] [address] [place], [address] eGFR Normal >60 [facility] Comment on above: Result Comment: Canc elled via OM: Order cancelled - Patient discharged Performed By: #### L 100.0100, L500.2500 ####[facility] [address] [place], [address] GAP Normal 5-15 [facility] Comment on above: Result Comment: Canc elled via OM: Order cancelled - Patient discharged Performed By: #### L 100.0100, L500.2500 ####[facility] [address] [place], [address] GLU Normal 70-99 [facility] Comment on above: Result Comment: Canc elled via OM: Order cancelled - Patient discharged Performed By: #### L 100.0100, L500.2500 ####[facility] [address] [place], [address] Potassium Normal 3.3-5.1 [facility] Comment on above: Result Comment: Canc elled via OM: Order cancelled - Patient discharged Performed By: #### L 100.0100, L500.2500 ####[facility] [address] [place], [address] Basic Metabolic Profile (BMP) Normal 133-145 [facility] Comment on above: Result Comment: Canc elled via OM: Order cancelled - Patient discharged Performed By: #### L 100.0100, L500.2500 ####[facility] [address] [place], [address] CBC W/Diff, Automatedon 05-0 6-2025 Absolute Neut Normal 2.0-7.7 [facility] Comment on above: Result Comment: Canc elled via OM: Order cancelled - Patient discharged Performed By: #### L 100.0100, L500.2500 ####[facility] [address] [place], [address] HCT Normal 40-54 [facility] Comment on above: Result Comment: Canc elled via OM: Order cancelled - Patient discharged Performed By: #### L 100.0100, L500.2500 ####[facility] [address] [place], [address] HGB Normal 13.0-16.5 [facility] Comment on above: Result Comment: Canc elled via OM: Order cancelled - Patient discharged Performed By: #### L 100.0100, L500.2500 ####[facility] [address] [place], [address] MCH Normal 27.0-32.0 [facility] Comment on above: Result Comment: Canc elled via OM: Order cancelled - Patient discharged Performed By: #### L 100.0100, L500.2500 ####[facility] [address] [place], [address] MCHC Normal 32-36 [facility] Comment on above: Result Comment: Canc elled via OM: Order cancelled - Patient discharged Performed By: #### L 100.0100, L500.2500 ####[facility] [address] [place], [address] MCV Normal 80-94 [facility] Comment on above: Result Comment: Canc elled via OM: Order cancelled - Patient discharged Performed By: #### L 100.0100, L500.2500 ####[facility] [address] [place], [address] NEUT% Normal 47-70 [facility] Comment on above: Result Comment: Canc elled via OM: Order cancelled - Patient discharged Performed By: #### L 100.0100, L500.2500 ####[facility] [address] [place], [address] PLT Normal 150-450 [facility] Comment on above: Result Comment: Canc elled via OM: Order cancelled - Patient discharged Performed By: #### L 100.0100, L500.2500 ####[facility] [address] [place], [address] RBC Normal 4.6-6.2 [facility] Comment on above: Result Comment: Canc elled via OM: Order cancelled - Patient discharged Performed By: #### L 100.0100, L500.2500 ####[facility] [address] [place], [address] RDW CV Normal 11.6-14.6 [facility] Comment on above: Result Comment: Canc elled via OM: Order cancelled - Patient discharged Performed By: #### L 100.0100, L500.2500 ####[facility] [address] [place], [address] RDW SD Normal 35.1-43.9 [facility] Comment on above: Result Comment: Canc elled via OM: Order cancelled - Patient discharged Performed By: #### L 100.0100, L500.2500 ####[facility] [address] [place], [address] WBC Normal 4.4-11.0 [facility] Comment on above: Result Comment: Canc elled via OM: Order cancelled - Patient discharged Performed By: #### L 100.0100, L500.2500 ####[facility] [address] [place], [address] Basic Metabolic Profile (BMP )on 01-18-2025 BUN Normal 4-19 [facility] Comment on above: Result Comment: Canc elled via OM: Order cancelled - Patient discharged Performed By: #### L 100.0100, L500.2500 ####[facility] [address] [place], [address] BUN/CRE Normal 10-20 [facility] Comment on above: Result Comment: Canc elled via OM: Order cancelled - Patient discharged Performed By: #### L 100.0100, L500.2500 ####[facility] [address] [place], [address] Calcium Normal 7.6-11.0 [facility] Comment on above: Result Comment: Canc elled via OM: Order cancelled - Patient discharged Performed By: #### L 100.0100, L500.2500 ####[facility] [address] [place], [address] CL Normal 98-108 [facility] Comment on above: Result Comment: Canc elled via OM: Order cancelled - Patient discharged Performed By: #### L 100.0100, L500.2500 ####[facility] [address] [place], [address] CO2 Normal 21.0-32.0 [facility] Comment on above: Result Comment: Canc elled via OM: Order cancelled - Patient discharged Performed By: #### L 100.0100, L500.2500 ####[facility] [address] [place], [address] CREAT,SERUM Normal 0.70-1.20 [facility] Comment on above: Result Comment: Canc elled via OM: Order cancelled - Patient discharged Performed By: #### L 100.0100, L500.2500 ####[facility] [address] [place], [address] eGFR Normal >60 [facility] Comment on above: Result Comment: Canc elled via OM: Order cancelled - Patient discharged Performed By: #### L 100.0100, L500.2500 ####[facility] [address] [place], [address] GAP Normal 5-15 [facility] Comment on above: Result Comment: Canc elled via OM: Order cancelled - Patient discharged Performed By: #### L 100.0100, L500.2500 ####[facility] [address] [place], [address] GLU Normal 70-99 [facility] Comment on above: Result Comment: Canc elled via OM: Order cancelled - Patient discharged Performed By: #### L 100.0100, L500.2500 ####[facility] [address] [place], [address] Potassium Normal 3.3-5.1 [facility] Comment on above: Result Comment: Canc elled via OM: Order cancelled - Patient discharged Performed By: #### L 100.0100, L500.2500 ####[facility] [address] [place], [address] Basic Metabolic Profile (BMP) Normal 133-145 [facility] Comment on above: Result Comment: Canc elled via OM: Order cancelled - Patient discharged Performed By: #### L 100.0100, L500.2500 ####[facility] [address] [place], [address] CBC W/Diff, Automatedon 05-0 5-2024 Absolute Neut Normal 2.0-7.7 [facility] Comment on above: Result Comment: Canc elled via OM: Order cancelled - Patient discharged Performed By: #### L 100.0100, L500.2500 ####[facility] [address] [place], [address] HCT Normal 40-54 [facility] Comment on above: Result Comment: Canc elled via OM: Order cancelled - Patient discharged Performed By: #### L 100.0100, L500.2500 ####[facility] [address] [place], [address] HGB Normal 13.0-16.5 [facility] Comment on above: Result Comment: Canc elled via OM: Order cancelled - Patient discharged Performed By: #### L 100.0100, L500.2500 ####[facility] [address] [place], [address] MCH Normal 27.0-32.0 [facility] Comment on above: Result Comment: Canc elled via OM: Order cancelled - Patient discharged Performed By: #### L 100.0100, L500.2500 ####[facility] [address] [place], [address] MCHC Normal 32-36 [facility] Comment on above: Result Comment: Canc elled via OM: Order cancelled - Patient discharged Performed By: #### L 100.0100, L500.2500 ####[facility] [address] [place], [address] MCV Normal 80-94 [facility] Comment on above: Result Comment: Canc elled via OM: Order cancelled - Patient discharged Performed By: #### L 100.0100, L500.2500 ####[facility] [address] [place], [address] NEUT% Normal 47-70 [facility] Comment on above: Result Comment: Canc elled via OM: Order cancelled - Patient discharged Performed By: #### L 100.0100, L500.2500 ####[facility] [address] [place], [address] PLT Normal 150-450 [facility] Comment on above: Result Comment: Canc elled via OM: Order cancelled - Patient discharged Performed By: #### L 100.0100, L500.2500 ####[facility] [address] [place], [address] RBC Normal 4.6-6.2 [facility] Comment on above: Result Comment: Canc elled via OM: Order cancelled - Patient discharged Performed By: #### L 100.0100, L500.2500 ####[facility] [address] [place], [address] RDW CV Normal 11.6-14.6 [facility] Comment on above: Result Comment: Canc elled via OM: Order cancelled - Patient discharged Performed By: #### L 100.0100, L500.2500 ####[facility] [address] [place], [address] RDW SD Normal 35.1-43.9 [facility] Comment on above: Result Comment: Canc elled via OM: Order cancelled - Patient discharged Performed By: #### L 100.0100, L500.2500 ####[facility] [address] [place], [address] WBC Normal 4.4-11.0 [facility] Comment on above: Result Comment: Canc elled via OM: Order cancelled - Patient discharged Performed By: #### L 100.0100, L500.2500 ####[facility] [address] [place], [address] Basic Metabolic Profile (BMP )on 01-17-2025 BUN Normal 4-19 [facility] Comment on above: Result Comment: Canc elled via OM: Order cancelled - Patient discharged Performed By: #### L 500.2500, L100.0100 ####[facility] [address] [place], [address] BUN/CRE Normal 10-20 [facility] Comment on above: Result Comment: Canc elled via OM: Order cancelled - Patient discharged Performed By: #### L 500.2500, L100.0100 ####[facility] [address] [place], [address] Calcium Normal 7.6-11.0 [facility] Comment on above: Result Comment: Canc elled via OM: Order cancelled - Patient discharged Performed By: #### L 500.2500, L100.0100 ####[facility] [address] [place], [address] CL Normal 98-108 [facility] Comment on above: Result Comment: Canc elled via OM: Order cancelled - Patient discharged Performed By: #### L 500.2500, L100.0100 ####[facility] [address] [place], [address] CO2 Normal 21.0-32.0 [facility] Comment on above: Result Comment: Canc elled via OM: Order cancelled - Patient discharged Performed By: #### L 500.2500, L100.0100 ####[facility] [address] [place], [address] CREAT,SERUM Normal 0.70-1.20 [facility] Comment on above: Result Comment: Canc elled via OM: Order cancelled - Patient discharged Performed By: #### L 500.2500, L100.0100 ####[facility] [address] [place], [address] eGFR Normal >60 [facility] Comment on above: Result Comment: Canc elled via OM: Order cancelled - Patient discharged Performed By: #### L 500.2500, L100.0100 ####[facility] [address] [place], [address] GAP Normal 5-15 [facility] Comment on above: Result Comment: Canc elled via OM: Order cancelled - Patient discharged Performed By: #### L 500.2500, L100.0100 ####[facility] [address] [place], [address] GLU Normal 70-99 [facility] Comment on above: Result Comment: Canc elled via OM: Order cancelled - Patient discharged Performed By: #### L 500.2500, L100.0100 ####[facility] [address] [place], [address] Potassium Normal 3.3-5.1 [facility] Comment on above: Result Comment: Canc elled via OM: Order cancelled - Patient discharged Performed By: #### L 500.2500, L100.0100 ####[facility] [address] [place], [address] Basic Metabolic Profile (BMP) Normal 133-145 [facility] Comment on above: Result Comment: Canc elled via OM: Order cancelled - Patient discharged Performed By: #### L 500.2500, L100.0100 ####[facility] [address] [place], [address] CBC W/Diff, Automatedon 05-0 -2024 Absolute Neut Normal 2.0-7.7 [facility] Comment on above: Result Comment: Canc elled via OM: Order cancelled - Patient discharged Performed By: #### L 500.2500, L100.0100 ####[facility] [address] [place], [address] HCT Normal 40-54 [facility] Comment on above: Result Comment: Canc elled via OM: Order cancelled - Patient discharged Performed By: #### L 500.2500, L100.0100 ####[facility] [address] [place], [address] HGB Normal 13.0-16.5 [facility] Comment on above: Result Comment: Canc elled via OM: Order cancelled - Patient discharged Performed By: #### L 500.2500, L100.0100 ####[facility] [address] [place], [address] MCH Normal 27.0-32.0 [facility] Comment on above: Result Comment: Canc elled via OM: Order cancelled - Patient discharged Performed By: #### L 500.2500, L100.0100 ####[facility] [address] [place], [address] MCHC Normal 32-36 [facility] Comment on above: Result Comment: Canc elled via OM: Order cancelled - Patient discharged Performed By: #### L 500.2500, L100.0100 ####[facility] [address] [place], [address] MCV Normal 80-94 [facility] Comment on above: Result Comment: Canc elled via OM: Order cancelled - Patient discharged Performed By: #### L 500.2500, L100.0100 ####[facility] [address] [place], [address] NEUT% Normal 47-70 [facility] Comment on above: Result Comment: Canc elled via OM: Order cancelled - Patient discharged Performed By: #### L 500.2500, L100.0100 ####[facility] [address] [place], [address] PLT Normal 150-450 [facility] Comment on above: Result Comment: Canc elled via OM: Order cancelled - Patient discharged Performed By: #### L 500.2500, L100.0100 ####[facility] [address] [place], [address] RBC Normal 4.6-6.2 [facility] Comment on above: Result Comment: Canc elled via OM: Order cancelled - Patient discharged Performed By: #### L 500.2500, L100.0100 ####[facility] [address] [place], [address] RDW CV Normal 11.6-14.6 [facility] Comment on above: Result Comment: Canc elled via OM: Order cancelled - Patient discharged Performed By: #### L 500.2500, L100.0100 ####[facility] [address] [place], [address] RDW SD Normal 35.1-43.9 [facility] Comment on above: Result Comment: Canc elled via OM: Order cancelled - Patient discharged Performed By: #### L 500.2500, L100.0100 ####[facility] [address] [place], [address] WBC Normal 4.4-11.0 [facility] Comment on above: Result Comment: Canc elled via OM: Order cancelled - Patient discharged Performed By: #### L 500.2500, L100.0100 ####[facility] [address] [place], [address] Basic Metabolic Profile (BMP )on 01-16-2025 BUN Normal 4-19 [facility] Comment on above: Result Comment: Canc elled via OM: Order cancelled - Patient discharged Performed By: #### L 500.2500, L100.0100 ####[facility] [address] [place], [address] BUN/CRE Normal 10-20 [facility] Comment on above: Result Comment: Canc elled via OM: Order cancelled - Patient discharged Performed By: #### L 500.2500, L100.0100 ####[facility] [address] [place], [address] Calcium Normal 7.6-11.0 [facility] Comment on above: Result Comment: Canc elled via OM: Order cancelled - Patient discharged Performed By: #### L 500.2500, L100.0100 ####[facility] [address] [place], [address] CL Normal 98-108 [facility] Comment on above: Result Comment: Canc elled via OM: Order cancelled - Patient discharged Performed By: #### L 500.2500, L100.0100 ####[facility] [address] [place], [address] CO2 Normal 21.0-32.0 [facility] Comment on above: Result Comment: Canc elled via OM: Order cancelled - Patient discharged Performed By: #### L 500.2500, L100.0100 ####[facility] [address] [place], [address] CREAT,SERUM Normal 0.70-1.20 [facility] Comment on above: Result Comment: Canc elled via OM: Order cancelled - Patient discharged Performed By: #### L 500.2500, L100.0100 ####[facility] [address] [place], [address] eGFR Normal >60 [facility] Comment on above: Result Comment: Canc elled via OM: Order cancelled - Patient discharged Performed By: #### L 500.2500, L100.0100 ####[facility] [address] [place], [address] GAP Normal 5-15 [facility] Comment on above: Result Comment: Canc elled via OM: Order cancelled - Patient discharged Performed By: #### L 500.2500, L100.0100 ####[facility] [address] [place], [address] GLU Normal 70-99 [facility] Comment on above: Result Comment: Canc elled via OM: Order cancelled - Patient discharged Performed By: #### L 500.2500, L100.0100 ####[facility] [address] [place], [address] Potassium Normal 3.3-5.1 [facility] Comment on above: Result Comment: Canc elled via OM: Order cancelled - Patient discharged Performed By: #### L 500.2500, L100.0100 ####[facility] [address] [place], [address] Basic Metabolic Profile (BMP) Normal 133-145 [facility] Comment on above: Result Comment: Canc elled via OM: Order cancelled - Patient discharged Performed By: #### L 500.2500, L100.0100 ####[facility] [address] [place], [address] CBC W/Diff, Automatedon 05-0 3-2024 Absolute Neut Normal 2.0-7.7 [facility] Comment on above: Result Comment: Canc elled via OM: Order cancelled - Patient discharged Performed By: #### L 500.2500, L100.0100 ####[facility] [address] [place], [address] HCT Normal 40-54 [facility] Comment on above: Result Comment: Canc elled via OM: Order cancelled - Patient discharged Performed By: #### L 500.2500, L100.0100 ####[facility] [address] [place], [address] HGB Normal 13.0-16.5 [facility] Comment on above: Result Comment: Canc elled via OM: Order cancelled - Patient discharged Performed By: #### L 500.2500, L100.0100 ####[facility] [address] [place], [address] MCH Normal 27.0-32.0 [facility] Comment on above: Result Comment: Canc elled via OM: Order cancelled - Patient discharged Performed By: #### L 500.2500, L100.0100 ####[facility] [address] [place], [address] MCHC Normal 32-36 [facility] Comment on above: Result Comment: Canc elled via OM: Order cancelled - Patient discharged Performed By: #### L 500.2500, L100.0100 ####[facility] [address] [place], [address] MCV Normal 80-94 [facility] Comment on above: Result Comment: Canc elled via OM: Order cancelled - Patient discharged Performed By: #### L 500.2500, L100.0100 ####[facility] [address] [place], [address] NEUT% Normal 47-70 [facility] Comment on above: Result Comment: Canc elled via OM: Order cancelled - Patient discharged Performed By: #### L 500.2500, L100.0100 ####[facility] [address] [place], [address] PLT Normal 150-450 [facility] Comment on above: Result Comment: Canc elled via OM: Order cancelled - Patient discharged Performed By: #### L 500.2500, L100.0100 ####[facility] [address] [place], [address] RBC Normal 4.6-6.2 [facility] Comment on above: Result Comment: Canc elled via OM: Order cancelled - Patient discharged Performed By: #### L 500.2500, L100.0100 ####[facility] [address] [place], [address] RDW CV Normal 11.6-14.6 [facility] Comment on above: Result Comment: Canc elled via OM: Order cancelled - Patient discharged Performed By: #### L 500.2500, L100.0100 ####[facility] [address] [place], [address] RDW SD Normal 35.1-43.9 [facility] Comment on above: Result Comment: Canc elled via OM: Order cancelled - Patient discharged Performed By: #### L 500.2500, L100.0100 ####[facility] [address] [place], [address] WBC Normal 4.4-11.0 [facility] Comment on above: Result Comment: Canc elled via OM: Order cancelled - Patient discharged Performed By: #### L 500.2500, L100.0100 ####[facility] [address] [place], [address] Basic Metabolic Profile (BMP )on 01-15-2025 BUN Normal 4-19 [facility] Comment on above: Result Comment: Canc elled via OM: Order cancelled - Patient discharged Performed By: #### L 500.2500, L100.0100 ####[facility] [address] [place], [address] BUN/CRE Normal 10-20 [facility] Comment on above: Result Comment: Canc elled via OM: Order cancelled - Patient discharged Performed By: #### L 500.2500, L100.0100 ####[facility] [address] [place], [address] Calcium Normal 7.6-11.0 [facility] Comment on above: Result Comment: Canc elled via OM: Order cancelled - Patient discharged Performed By: #### L 500.2500, L100.0100 ####[facility] [address] [place], [address] CL Normal 98-108 [facility] Comment on above: Result Comment: Canc elled via OM: Order cancelled - Patient discharged Performed By: #### L 500.2500, L100.0100 ####[facility] [address] [place], [address] CO2 Normal 21.0-32.0 [facility] Comment on above: Result Comment: Canc elled via OM: Order cancelled - Patient discharged Performed By: #### L 500.2500, L100.0100 ####[facility] [address] [place], [address] CREAT,SERUM Normal 0.70-1.20 [facility] Comment on above: Result Comment: Canc elled via OM: Order cancelled - Patient discharged Performed By: #### L 500.2500, L100.0100 ####[facility] [address] [place], [address] eGFR Normal >60 [facility] Comment on above: Result Comment: Canc elled via OM: Order cancelled - Patient discharged Performed By: #### L 500.2500, L100.0100 ####[facility] [address] [place], [address] GAP Normal 5-15 [facility] Comment on above: Result Comment: Canc elled via OM: Order cancelled - Patient discharged Performed By: #### L 500.2500, L100.0100 ####[facility] [address] [place], [address] GLU Normal 70-99 [facility] Comment on above: Result Comment: Canc elled via OM: Order cancelled - Patient discharged Performed By: #### L 500.2500, L100.0100 ####[facility] [address] [place], [address] Potassium Normal 3.3-5.1 [facility] Comment on above: Result Comment: Canc elled via OM: Order cancelled - Patient discharged Performed By: #### L 500.2500, L100.0100 ####[facility] [address] [place], [address] Basic Metabolic Profile (BMP) Normal 133-145 [facility] Comment on above: Result Comment: Canc elled via OM: Order cancelled - Patient discharged Performed By: #### L 500.2500, L100.0100 ####[facility] [address] [place], [address] CBC W/Diff, Automatedon 05-0 2-2024 Absolute Neut Normal 2.0-7.7 [facility] Comment on above: Result Comment: Canc elled via OM: Order cancelled - Patient discharged Performed By: #### L 500.2500, L100.0100 ####[facility] [address] [place], [address] HCT Normal 40-54 [facility] Comment on above: Result Comment: Canc elled via OM: Order cancelled - Patient discharged Performed By: #### L 500.2500, L100.0100 ####[facility] [address] [place], [address] HGB Normal 13.0-16.5 [facility] Comment on above: Result Comment: Canc elled via OM: Order cancelled - Patient discharged Performed By: #### L 500.2500, L100.0100 ####[facility] [address] [place], [address] MCH Normal 27.0-32.0 [facility] Comment on above: Result Comment: Canc elled via OM: Order cancelled - Patient discharged Performed By: #### L 500.2500, L100.0100 ####[facility] [address] [place], [address] MCHC Normal 32-36 [facility] Comment on above: Result Comment: Canc elled via OM: Order cancelled - Patient discharged Performed By: #### L 500.2500, L100.0100 ####[facility] [address] [place], [address] MCV Normal 80-94 [facility] Comment on above: Result Comment: Canc elled via OM: Order cancelled - Patient discharged Performed By: #### L 500.2500, L100.0100 ####[facility] [address] [place], [address] NEUT% Normal 47-70 [facility] Comment on above: Result Comment: Canc elled via OM: Order cancelled - Patient discharged Performed By: #### L 500.2500, L100.0100 ####[facility] [address] [place], [address] PLT Normal 150-450 [facility] Comment on above: Result Comment: Canc elled via OM: Order cancelled - Patient discharged Performed By: #### L 500.2500, L100.0100 ####[facility] [address] [place], [address] RBC Normal 4.6-6.2 [facility] Comment on above: Result Comment: Canc elled via OM: Order cancelled - Patient discharged Performed By: #### L 500.2500, L100.0100 ####[facility] [address] [place], [address] RDW CV Normal 11.6-14.6 [facility] Comment on above: Result Comment: Canc elled via OM: Order cancelled - Patient discharged Performed By: #### L 500.2500, L100.0100 ####[facility] [address] [place], [address] RDW SD Normal 35.1-43.9 [facility] Comment on above: Result Comment: Canc elled via OM: Order cancelled - Patient discharged Performed By: #### L 500.2500, L100.0100 ####[facility] [address] [place], [address] WBC Normal 4.4-11.0 [facility] Comment on above: Result Comment: Canc elled via OM: Order cancelled - Patient discharged Performed By: #### L 500.2500, L100.0100 ####[facility] [address] [place], [address] SP/HP.SP.Hollie 01-15-2025 SP/HP.SP.EV Normal [facility] Absolute lymphocyte countOrd ered By: Renae Rubalcava on 01-14-2025 Lymphocytes Auto (Unsp spec) [#/Vol] 1.91 10*3/uL 0.83-4.51 [facility] Absolute neutrophil countOrd ered By: Renae Rubalcava on 01-14-2025 Neutrophils (Bld) [#/Vol] 2.6 10*3/uL 2.0-7.7 [facility] Anion gap in Serum or Plasma Ordered By: Renae Rubalcava on 01-14-2025 Anion gap [Moles/Vol] 10 mmol/L 5-15 [facility] Automated lymphocyte count a s percentage of total leukocytesOrdered By: Renae Rubalcava on 01-14-2025 Lymphocytes/100 WBC Auto (Unsp spec) 35.2 % - [facility] BUN/creatinine ratioOrdered By: Renae Rubalcava on 01-14-2025 Urea nitrogen/Creatinine [Mass ratio] 18.3 mg/mg - [facility] Basic Metabolic Profile (BMP )on 01-14-2025 BUN/CRE 18.3 RATIO Normal - [facility] Comment on above: Performed By: #### L 500.2500, L100.0100 ####[facility] [address] [place], [address] Calcium [Mass/Vol] 9.5 mg/dL Normal 7.6-11.0 [facility] Comment on above: Performed By: #### L 500.2500, L100.0100 ####[facility] [address] [place], [address] Chloride [Moles/Vol] 106 mmol/L Normal 98-108 [facility] Comment on above: Performed By: #### L 500.2500, L100.0100 ####[facility] [address] [place], [address] CO2 [Moles/Vol] 23.5 mmol/L Normal 21.0-32.0 [facility] Comment on above: Performed By: #### L 500.2500, L100.0100 ####[facility] [address] [place], [address] Creatinine [Mass/Vol] 1.40 mg/dL High 0.70-1.20 [facility] Comment on above: Performed By: #### L 500.2500, L100.0100 ####[facility] [address] [place], [address] ECRCL 47.40 ml/min Low 50-250 [facility] Comment on above: Performed By: #### L 500.2500, L100.0100 ####[facility] [address] [place], [address] GAP 10 Normal 5-15 [facility] Comment on above: Performed By: #### L 500.2500, L100.0100 ####[facility] [address] [place], [address] GFR/1.73 sq M.predicted among non-blacks MDRD (S/P/Bld) [Vol rate/Area] 53 mL/min/{1.73_m2} Low >60 [facility] Comment on above: Result Comment: mL/m in/1.73m2 CKD-EPI Creatinine Equation (2021) Performed By: #### L 500.2500, L100.0100 ####[facility] [address] [place], [address] Glucose [Mass/Vol] 113 mg/dL High 70-99 [facility] Comment on above: Performed By: #### L 500.2500, L100.0100 ####[facility] [address] [place], [address] Potassium [Moles/Vol] 4.1 mmol/L Normal 3.3-5.1 [facility] Comment on above: Performed By: #### L 500.2500, L100.0100 ####[facility] [address] [place], [address] Sodium [Moles/Vol] 140 mmol/L Normal 133-145 [facility] Comment on above: Performed By: #### L 500.2500, L100.0100 ####[facility] [address] [place], [address] Urea nitrogen [Mass/Vol] 26 mg/dL High 4-19 [facility] Comment on above: Performed By: #### L 500.2500, L100.0100 ####[facility] [address] [place], [address] Basophil percentageOrdered B y: Renaenydia Rubalcava on 01-14-2025 Basophils/100 WBC (Bld) 0.2 % 0-1 [facility] Bedside Glucoseon 01-14-2025 FINGERSTICK GLU 254 mg/dL High 74-106 [facility] Comment on above: Result Comment: ANGELA GEMENT OF PATIENT CARE PER NURSING PROTOCOL Performed By: #### L 501.080 ####[facility] [address] [place], [address] FINGERSTICK GLU 121 mg/dL High 74-106 [facility] Comment on above: Result Comment: ANGELA GEMENT OF PATIENT CARE PER NURSING PROTOCOL Performed By: #### L 501.080 ####[facility] [address] [place], [address] CBC W/Diff, Automatedon 05-0 -5 Absolute Lymph 1.91 X10 3/uL Normal 0.83-4.51 [facility] Comment on above: Performed By: #### L 500.2500, L100.0100 ####[facility] [address] [place], [address] Absolute Neut 2.6 X10 3/uL Normal 2.0-7.7 [facility] Comment on above: Performed By: #### L 500.2500, L100.0100 ####[facility] [address] [place], [address] Basophils/100 WBC (Bld) 0.2 % Normal 0-1 [facility] Comment on above: Performed By: #### L 500.2500, L100.0100 ####[facility] [address] [place], [address] Eosinophils/100 WBC (Bld) 3.9 % Normal 0-5 [facility] Comment on above: Performed By: #### L 500.2500, L100.0100 ####[facility] [address] [place], [address] Erythrocyte distribution width (RBC) [Ratio] 12.6 % Normal 11.6-14.6 [facility] Comment on above: Performed By: #### L 500.2500, L100.0100 ####[facility] [address] [place], [address] Hematocrit (Bld) [Volume fraction] 36.6 % Low 40-54 [facility] Comment on above: Performed By: #### L 500.2500, L100.0100 ####[facility] [address] [place], [address] Hemoglobin (Bld) [Mass/Vol] 12.7 g/dL Low 13.0-16.5 [facility] Comment on above: Performed By: #### L 500.2500, L100.0100 ####[facility] [address] [place], [address] IG% 0.200 Normal 0.0-0.9 [facility] Comment on above: Result Comment: IG% - Immature Granulocytes (promyelocytes, myelocytes andmetamyelocytes) > 1% indicates that a LEFT SHIFT is Present. Performed By: #### L 500.2500, L100.0100 ####[facility] [address] [place], [address] Lymphocytes/100 WBC (Bld) 35.2 % Normal 19-41 [facility] Comment on above: Performed By: #### L 500.2500, L100.0100 ####[facility] [address] [place], [address] MCH (RBC) [Entitic mass] 30.8 pg Normal 27.0-32.0 [facility] Comment on above: Performed By: #### L 500.2500, L100.0100 ####[facility] [address] [place], [address] MCHC (RBC) [Mass/Vol] 34.7 g/dL Normal 32-36 [facility] Comment on above: Performed By: #### L 500.2500, L100.0100 ####[facility] [address] [place], [address] MCV (RBC) [Entitic vol] 88.8 fL Normal 80-94 [facility] Comment on above: Performed By: #### L 500.2500, L100.0100 ####[facility] [address] [place], [address] Monocytes/100 WBC (Bld) 13.3 % High 0-10 [facility] Comment on above: Performed By: #### L 500.2500, L100.0100 ####[facility] [address] [place], [address] Neutrophils/100 WBC (Bld) 47.2 % Normal 47-70 [facility] Comment on above: Performed By: #### L 500.2500, L100.0100 ####[facility] [address] [place], [address] Nucleated RBC (Bld) [#/Vol] 0 10*3/uL Normal 0-5 [facility] Comment on above: Performed By: #### L 500.2500, L100.0100 ####[facility] [address] [place], [address] Platelet mean volume (Bld) [Entitic vol] 10.0 fL Normal 6.2-12.0 [facility] Comment on above: Performed By: #### L 500.2500, L100.0100 ####[facility] [address] [place], [address] Platelets (Bld) [#/Vol] 253 10*3/uL Normal 150-450 [facility] Comment on above: Performed By: #### L 500.2500, L100.0100 ####[facility] [address] [place], [address] RBC (Bld) [#/Vol] 4.12 10*6/uL Low 4.6-6.2 [facility] Comment on above: Performed By: #### L 500.2500, L100.0100 ####[facility] [address] [place], [address] RDW SD 41.3 fl Normal 35.1-43.9 [facility] Comment on above: Performed By: #### L 500.2500, L100.0100 ####[facility] [address] [place], [address] WBC (Bld) [#/Vol] 5.4 10*3/uL Normal 4.4-11.0 [facility] Comment on above: Performed By: #### L 500.2500, L100.0100 ####[facility] [address] [place], [place], [address] Carbon dioxide, total [Moles /volume] in Central venous bloodOrdered By: Renae Rubalcava on 01-14-2025 CO2 [Moles/Vol] 23.5 mmol/L 21.0-32.0 [facility] Chloride assayOrdered By: Na na Gini on 01-14-2025 Chloride [Moles/Vol] 106 mmol/L 98-108 [facility] Discharge Instructionon 050 Discharge Instruction Normal [facility] Eosinophil percentageOrdered By: Renae Rubalcava on 01-14-2025 Eosinophils/100 WBC (Bld) 3.9 % 0-5 [facility] Erythrocyte distribution wid th ratioOrdered By: Renae Rubalcava on 01-14-2025 Erythrocyte distribution width (RBC) [Ratio] 12.6 % 11.6-14.6 [facility] Erythrocyte distribution wid th standard deviationOrdered By: Renae Rubalcava on 01-14-2025 Erythrocyte distribution width (RBC) [Ratio] 41.3 fl 35.1-43.9 [facility] Glomerular filtration rate ( GFR) estimation/1.73 sq m using serum, plasma, or whole bOrdered By: Renae Rubalcava on 01-14-2025 GFR/1.73 sq M.predicted among non-blacks MDRD (S/P/Bld) [Vol rate/Area] 53 mL/min/{1.73_m2} Low >60 [facility] Comment on above: mL/min/1.73m2 CKD-EP I Creatinine Equation (2020) Glucose measurement at bedsi deOrdered By: Renae Rubalcava on 01-14-2025 Glucose [Mass/Vol] 254 mg/dL High 74-106 [facility] Comment on above: MANAGEMENT OF PATIEN T CARE PER NURSING PROTOCOL Hematocrit Auto (Bld) [Volum e fraction]Ordered By: Renae Rubalcava on 01-14-2025 Hematocrit (Bld) [Volume fraction] 36.6 % Low 40-54 [facility] Hemoglobin measurementOrdere d By: Renae Rubalcava on 01-14-2025 Hemoglobin (Bld) [Mass/Vol] 12.7 g/dL Low 13.0-16.5 [facility] Immature granulocytes/100 WB C Auto (Bld)Ordered By: Renae Rubalcava on 01-14-2025 Immature granulocytes/100 WBC (Bld) 0.200 % 0.0-0.9 [facility] Comment on above: IG% - Immature Granu locytes (promyelocytes, myelocytes and metamyelocytes) > 1% indicates that a LEFT SHIFT is Present. MCV (mean corpuscular volume ) determinationOrdered By: Renae Rubalcava on 01-14-2025 MCV (RBC) [Entitic vol] 88.8 fL 80-94 [facility] Mean corpuscular hemoglobin (MCH) determinationOrdered By: Renae Rubalcava on 01-14-2025 MCH (RBC) [Entitic mass] 30.8 pg 27.0-32.0 [facility] Mean corpuscular hemoglobin concentration (MCHC) determinationOrdered By: Renae Rubalcava on 01-14-2025 MCHC (RBC) [Mass/Vol] 34.7 g/dL 32-36 [facility] Mean platelet volume determi nationOrdered By: Renae Rubalcava on 01-14-2025 Platelet mean volume (Bld) [Entitic vol] 10.0 fL 6.2-12.0 [facility] Monocyte percentageOrdered B y: Renae Rubalcava on 01-14-2025 Monocytes/100 WBC (Bld) 13.3 % High 0-10 [facility] Neutrophil percentageOrdered By: Renae Rubalcava on 01-14-2025 Neutrophils/100 WBC (Bld) 47.2 % 47-70 [facility] Nucleated red blood cell per centageOrdered By: Renae Rubalcava on 01-14-2025 Nucleated RBC/100 WBC (Bld) [Ratio] 0 % 0-5 [facility] Platelet countOrdered By: Lidia Rubalcava on 01-14-2025 Platelets (Bld) [#/Vol] 253 10*3/uL 150-450 [facility] Potassium measurement (mass/ volume)Ordered By: Rneae Rubalcava on 01-14-2025 Potassium (Unsp spec) [Mass/Vol] 4.1 mmol/L 3.3-5.1 [facility] RBC Auto (Bld) [#/Vol]Ordere d By: Renae Rubalcava on 01-14-2025 RBC (Bld) [#/Vol] 4.12 10*6/uL Low 4.6-6.2 [facility] Serum creatinine measurement (mass/volume)Ordered By: Renae Rubalcava on 01-14-2025 Creatinine [Mass/Vol] 1.40 mg/dL High 0.70-1.20 [facility] Serum glucose measurement (m ass/volume)Ordered By: Renae Rubalcava on 01-14-2025 Glucose [Mass/Vol] 113 mg/dL High 70-99 [facility] Serum or plasma calcium makeda urement (mass/volume)Ordered By: Renae Rubalcava on 01-14-2025 Calcium [Mass/Vol] 9.5 mg/dL 7.6-11.0 [facility] Serum or plasma urea nitroge n measurement (mass/volume)Ordered By: Renae Rubalcava on 01-14-2025 Urea nitrogen [Mass/Vol] 26 mg/dL High 4-19 [facility] Sodium levelOrdered By: Renae Rubalcava on 01-14-2025 Sodium [Moles/Vol] 140 mmol/L 133-145 [facility] White blood cell (WBC) count Ordered By: Renae Rubalcava on 01-14-2025 WBC (Bld) [#/Vol] 5.4 10*3/uL 4.4-11.0 [facility] Basic Metabolic Profile (BMP )on 01-13-2025 BUN/CRE 19.0 RATIO Normal 10-20 [facility] Comment on above: Order Comment: Comme nts: NPO at MD prior to lipid panel Performed By: #### L 100.0100, L500.2500, L500.4100 ####[facility] [address] [place], [address] Calcium [Mass/Vol] 10.1 mg/dL Normal 7.6-11.0 [facility] Comment on above: Order Comment: Comme nts: NPO at [place] prior to lipid panel Performed By: #### L 100.0100, L500.2500, L500.4100 ####[facility] [address] [place], [address] Chloride [Moles/Vol] 102 mmol/L Normal 98-108 [facility] Comment on above: Order Comment: Comme nts: NPO at MN prior to lipid panel Performed By: #### L 100.0100, L500.2500, L500.4100 ####[facility] [address] [place], [address] CO2 [Moles/Vol] 24.3 mmol/L Normal 21.0-32.0 [facility] Comment on above: Order Comment: Comme nts: NPO at MN prior to lipid panel Performed By: #### L 100.0100, L500.2500, L500.4100 ####[facility] [address] [place], [address] Creatinine [Mass/Vol] 1.64 mg/dL High 0.70-1.20 [facility] Comment on above: Order Comment: Comme nts: NPO at MN prior to lipid panel Performed By: #### L 100.0100, L500.2500, L500.4100 ####[facility] [address] [place], [address] ECRCL 40.47 ml/min Low 50-250 [facility] Comment on above: Order Comment: Comme nts: NPO at MN prior to lipid panel Performed By: #### L 100.0100, L500.2500, L500.4100 ####[facility] [address] [place], [address] GAP 13 Normal 5-15 [facility] Comment on above: Order Comment: Comme nts: NPO at MN prior to lipid panel Performed By: #### L 100.0100, L500.2500, L500.4100 ####[facility] [address] [place], [address] GFR/1.73 sq M.predicted among non-blacks MDRD (S/P/Bld) [Vol rate/Area] 44 mL/min/{1.73_m2} Low >60 [facility] Comment on above: Order Comment: Comme nts: NPO at MN prior to lipid panel Result Comment: mL/m in/1.73m2 CKD-EPI Creatinine Equation (2020) Performed By: #### L 100.0100, L500.2500, L500.4100 ####[facility] [address] [place], [address] Glucose [Mass/Vol] 151 mg/dL High 70-99 [facility] Comment on above: Order Comment: Comme nts: NPO at MN prior to lipid panel Performed By: #### L 100.0100, L500.2500, L500.4100 ####[facility] [address] [place], [address] Potassium [Moles/Vol] 4.3 mmol/L Normal 3.3-5.1 [facility] Comment on above: Order Comment: Comme nts: NPO at MN prior to lipid panel Result Comment: Hemo lysis present, Results??could be affected.?? Performed By: #### L 100.0100, L500.2500, L500.4100 ####[facility] [address] [place], [address] Sodium [Moles/Vol] 139 mmol/L Normal 133-145 [facility] Comment on above: Order Comment: Comme nts: NPO at MN prior to lipid panel Performed By: #### L 100.0100, L500.2500, L500.4100 ####[facility] [address] [place], [address] Urea nitrogen [Mass/Vol] 31 mg/dL High 4-19 [facility] Comment on above: Order Comment: Comme nts: NPO at MD prior to lipid panel Performed By: #### L 100.0100, L500.2500, L500.4100 ####[facility] [address] [place], [address] Bedside Glucoseon 01-13-2025 FINGERSTICK GLU 227 mg/dL High 74-106 [facility] Comment on above: Result Comment: ANGELA GEMENT OF PATIENT CARE PER NURSING PROTOCOL Performed By: #### L 501.080 ####[facility] [address] [place], [address] FINGERSTICK GLU 385 mg/dL High 74-106 [facility] Comment on above: Result Comment: ANGELA GEMENT OF PATIENT CARE PER NURSING PROTOCOL Performed By: #### L 501.080 ####[facility] [address] [place], [address] FINGERSTICK GLU 285 mg/dL High 74-106 [facility] Comment on above: Result Comment: ANGELA GEMENT OF PATIENT CARE PER NURSING PROTOCOL Performed By: #### L 501.080 ####[facility] [address] [place], [address] FINGERSTICK GLU 152 mg/dL High 74-106 [facility] Comment on above: Result Comment: ANGELA GEMENT OF PATIENT CARE PER NURSING PROTOCOL Performed By: #### L 501.080 ####[facility] [address] [place], [address] FINGERSTICK GLU 240 mg/dL High 74-106 [facility] Comment on above: Result Comment: ANGELA GEMENT OF PATIENT CARE PER NURSING PROTOCOL Performed By: #### L 501.080 ####[facility] [address] [place], [address] CBC W/Diff, Automatedon 04-3 0 Absolute Lymph 1.65 X10 3/uL Normal 0.83-4.51 [facility] Comment on above: Performed By: #### L 100.0100, L500.2500, L500.4100 ####[facility] [address] [place], [address] Absolute Neut 2.3 X10 3/uL Normal 2.0-7.7 [facility] Comment on above: Performed By: #### L 100.0100, L500.2500, L500.4100 ####[facility] [address] [place], [address] Basophils/100 WBC (Bld) 0.4 % Normal 0-1 [facility] Comment on above: Performed By: #### L 100.0100, L500.2500, L500.4100 ####[facility] [address] [place], [address] Eosinophils/100 WBC (Bld) 4.6 % Normal 0-5 [facility] Comment on above: Performed By: #### L 100.0100, L500.2500, L500.4100 ####[facility] [address] [place], [address] Erythrocyte distribution width (RBC) [Ratio] 12.6 % Normal 11.6-14.6 [facility] Comment on above: Performed By: #### L 100.0100, L500.2500, L500.4100 ####[facility] [address] [place], [address] Hematocrit (Bld) [Volume fraction] 38.1 % Low 40-54 [facility] Comment on above: Performed By: #### L 100.0100, L500.2500, L500.4100 ####[facility] [address] [place], [address] Hemoglobin (Bld) [Mass/Vol] 13.2 g/dL Normal 13.0-16.5 [facility] Comment on above: Performed By: #### L 100.0100, L500.2500, L500.4100 ####[facility] [address] [place], [address] IG% 0.200 Normal 0.0-0.9 [facility] Comment on above: Result Comment: IG% - Immature Granulocytes (promyelocytes, myelocytes andmetamyelocytes) > 1% indicates that a LEFT SHIFT is Present. Performed By: #### L 100.0100, L500.2500, L500.4100 ####[facility] [address] [place], [address] Lymphocytes/100 WBC (Bld) 34.4 % Normal 19-41 [facility] Comment on above: Performed By: #### L 100.0100, L500.2500, L500.4100 ####[facility] [address] [place], [address] MCH (RBC) [Entitic mass] 30.8 pg Normal 27.0-32.0 [facility] Comment on above: Performed By: #### L 100.0100, L500.2500, L500.4100 ####[facility] [address] [place], [address] MCHC (RBC) [Mass/Vol] 34.6 g/dL Normal 32-36 [facility] Comment on above: Performed By: #### L 100.0100, L500.2500, L500.4100 ####[facility] [address] [place], [address] MCV (RBC) [Entitic vol] 89.0 fL Normal 80-94 [facility] Comment on above: Performed By: #### L 100.0100, L500.2500, L500.4100 ####[facility] [address] [place], [address] Monocytes/100 WBC (Bld) 11.7 % High 0-10 [facility] Comment on above: Performed By: #### L 100.0100, L500.2500, L500.4100 ####[facility] [address] [place], [address] Neutrophils/100 WBC (Bld) 48.7 % Normal 47-70 [facility] Comment on above: Performed By: #### L 100.0100, L500.2500, L500.4100 ####[facility] [address] [place], [address] Nucleated RBC (Bld) [#/Vol] 0 10*3/uL Normal 0-5 [facility] Comment on above: Performed By: #### L 100.0100, L500.2500, L500.4100 ####[facility] [address] [place], [address] Platelet mean volume (Bld) [Entitic vol] 10.0 fL Normal 6.2-12.0 [facility] Comment on above: Performed By: #### L 100.0100, L500.2500, L500.4100 ####[facility] [address] [place], [address] Platelets (Bld) [#/Vol] 270 10*3/uL Normal 150-450 [facility] Comment on above: Performed By: #### L 100.0100, L500.2500, L500.4100 ####[facility] [address] [place], [address] RBC (Bld) [#/Vol] 4.28 10*6/uL Low 4.6-6.2 [facility] Comment on above: Performed By: #### L 100.0100, L500.2500, L500.4100 ####[facility] [address] [place], [address] RDW SD 41.0 fl Normal 35.1-43.9 [facility] Comment on above: Performed By: #### L 100.0100, L500.2500, L500.4100 ####[facility] [address] [place], [address] WBC (Bld) [#/Vol] 4.8 10*3/uL Normal 4.4-11.0 [facility] Comment on above: Performed By: #### L 100.0100, L500.2500, L500.4100 ####[facility] [address] [place], [address] Calculated very low density lipoprotein (VLDL) cholesterol measurementOrdered By: Bhupinder Kenney on 01-13-2025 Calculated very low density lipoprotein (VLDL) cholesterol measurement 50 mg/dL High 5-40 [facility] Carotid Duplex Ultrasoundon 01-13-2025 Carotid Duplex Ultrasound Normal [facility] LDL calc ser/plasOrdered By: Bhupinder Kenney on 01-13-2025 Cholesterol in LDL [Mass/Vol] 80 mg/dL [facility] Comment on above: Clhupwnhht=299-624 m g/dL & Higher Oucb=384 mg/dL or greater Lipid Profileon 01-13-2025 CHOL:HDL 4.66 Normal [facility] Comment on above: Order Comment: Comme nts: NPO at MN prior to lipid panel Performed By: #### L 100.0100, L500.2500, L500.4100 ####[facility] [address] [place], [address] Cholesterol [Mass/Vol] 165 mg/dL Normal <=200 [facility] Comment on above: Order Comment: Comme nts: NPO at MN prior to lipid panel Result Comment: Chol esterol level, Desirable <200 mg/dLBorderline high cholesterol 200-239 mg/dLHigh cholesterol >=240 mg/dLRecommendations of the NCEP Adult Treatment Panel for thefollowing risk-cutoff thresholds for the [place] Americanpopulation. Performed By: #### L 100.0100, L500.2500, L500.4100 ####[facility] [address] [place], [address] Cholesterol in HDL [Mass/Vol] 35 mg/dL Low [facility] Comment on above: Order Comment: Comme nts: NPO at MD prior to lipid panel Result Comment: Elinor onal Cholesterol Education Program (NCEP) guidelines:<40 mg/dL: Low HDL-cholesterol (major risk factor for CHD)>= 60 mg/dL: High HDL-cholesterol (negative risk factor forCHD)HDL-cholesterol is affected by a number of factors, e.g.smoking, exercise, hormones, sex and age. Performed By: #### L 100.0100, L500.2500, L500.4100 ####[facility] [address] [facility] [place], [address] Cholesterol in LDL [Mass/Vol] 80 mg/dL Normal [facility] Comment on above: Order Comment: Comme nts: NPO at MD prior to lipid panel Result Comment: Bord saxevv=466-130 mg/dL Higher Agya=657 mg/dL or greater Performed By: #### L 100.0100, L500.2500, L500.4100 ####[facility] [address] [facility] [place], [address] Cholesterol in VLDL [Mass/Vol] 50 mg/dL High 5-40 [facility] Comment on above: Order Comment: Comme nts: NPO at MN prior to lipid panel Performed By: #### L 100.0100, L500.2500, L500.4100 ####[facility] [address] [facility] [place], [address] Triglyceride [Mass/Vol] 250 mg/dL High [facility] Comment on above: Order Comment: Comme nts: NPO at MD prior to lipid panel Result Comment: The drugs N-Acetylcysteine and Metamizole may falselydepress this assay.Normal range: <150 mg/dLBorderline High: 150-199 mg/dLHigh: 200-499 mg/dLVery High: >500 mg/dL Performed By: #### L 100.0100, L500.2500, L500.4100 ####[facility] [address] [place], [address] Screening total cholesterol/ high density lipoprotein (HDL) cholesterol ratioOrdered By: Bhupinder Kenney on 01-13-2025 Cholesterol.total/Kati sterol in HDL [Mass ratio] 4.66 {ratio} [facility] Serum or plasma cholesterol in HDL measurement (mass/volume)Ordered By: Bhupinder Kenney on 01-13-2025 Cholesterol in HDL [Mass/Vol] 35 mg/dL Low >40 [facility] Comment on above: National Cholesterol Education Program [...] the following risk-cutoff thresholds for the [place] Prydeinig population. Triglycerides measurementOrd ered By: Bhupinder Kenney on 01-13-2025 Triglyceride [Mass/Vol] 250 mg/dL High <199 [facility] Comment on above: The drugs N-Acetylcy steine and Metamizole may falsely depress this assay. Normal range: <150 mg/dLBorderline High: 150-199 mg/dLHigh: 200-499 mg/dLVery High: >500 mg/dL 12 Lead EKGon 01-12-2025 12 Lead EKG Normal [facility] Activated partial thrombopla stin time (aPTT) in platelet poor plasma by coagulation aOrdered By: Diogenes Villalpando on 01-12-2025 aPTT Coag (PPP) [Time] 22.3 s Low 24.1-36.2 [facility] Basic Metabolic Profile (BMP )on 01-12-2025 BUN/CRE 18.9 RATIO Normal 10-20 [facility] Comment on above: Performed By: #### L 100.0100, L501.4021, L300.4310, L300.3900, L500.2500 ####[facility] [address] [place], [address] Calcium [Mass/Vol] 10.5 mg/dL Normal 7.6-11.0 [facility] Comment on above: Performed By: #### L 100.0100, L501.4021, L300.4310, L300.3900, L500.2500 ####[facility] [address] [place], [address] Chloride [Moles/Vol] 101 mmol/L Normal 98-108 [facility] Comment on above: Performed By: #### L 100.0100, L501.4021, L300.4310, L300.3900, L500.2500 ####[facility] [address] [place], [address] CO2 [Moles/Vol] 21.0 mmol/L Normal 21.0-32.0 [facility] Comment on above: Performed By: #### L 100.0100, L501.4021, L300.4310, L300.3900, L500.2500 ####[facility] [address] [place], [address] Creatinine [Mass/Vol] 2.12 mg/dL High 0.70-1.20 [facility] Comment on above: Performed By: #### L 100.0100, L501.4021, L300.4310, L300.3900, L500.2500 ####[facility] [address] [place], [address] ECRCL 30.79 ml/min Low 50-250 [facility] Comment on above: Performed By: #### L 100.0100, L501.4021, L300.4310, L300.3900, L500.2500 ####[facility] [address] [place], [address] GAP 15 Normal 5-15 [facility] Comment on above: Performed By: #### L 100.0100, L501.4021, L300.4310, L300.3900, L500.2500 ####[facility] [address] [place], [address] GFR/1.73 sq M.predicted among non-blacks MDRD (S/P/Bld) [Vol rate/Area] 32 mL/min/{1.73_m2} Low >60 [facility] Comment on above: Result Comment: mL/m in/1.73m2 CKD-EPI Creatinine Equation (2020) Performed By: #### L 100.0100, L501.4021, L300.4310, L300.3900, L500.2500 ####[facility] [address] [place], [address] Glucose [Mass/Vol] 238 mg/dL High 70-99 [facility] Comment on above: Performed By: #### L 100.0100, L501.4021, L300.4310, L300.3900, L500.2500 ####[facility] [address] [place], [address] Potassium [Moles/Vol] 4.9 mmol/L Normal 3.3-5.1 [facility] Comment on above: Performed By: #### L 100.0100, L501.4021, L300.4310, L300.3900, L500.2500 ####[facility] [address] [place], [address] Sodium [Moles/Vol] 137 mmol/L Normal 133-145 [facility] Comment on above: Performed By: #### L 100.0100, L501.4021, L300.4310, L300.3900, L500.2500 ####[facility] [address] [place], [address] Urea nitrogen [Mass/Vol] 40 mg/dL High 4-19 [facility] Comment on above: Performed By: #### L 100.0100, L501.4021, L300.4310, L300.3900, L500.2500 ####[facility] [address] [place], [address] Bedside Glucoseon 01-12-2025 FINGERSTICK GLU 212 mg/dL High 74-106 [facility] Comment on above: Result Comment: ANGELA VALDERRAMA OF PATIENT CARE PER NURSING PROTOCOL Performed By: #### L 501.080 ####[facility] [address] [place], [address] Bilirubin Test strip Ql (U)O rdered By: Diogenes Villalpando on 01-12-2025 Bilirubin Ql (U) Negative Negative [facility] Brain without Contraston Brain without Contrast Normal [facility] CBC W/Diff, Automatedon 12-16 Absolute Lymph 1.91 X10 3/uL Normal 0.83-4.51 [facility] Comment on above: Performed By: #### L 100.0100, L501.4021, L300.4310, L300.3900, L500.2500 ####[facility] [address] [place], [address] Absolute Neut 3.1 X10 3/uL Normal 2.0-7.7 [facility] Comment on above: Performed By: #### L 100.0100, L501.4021, L300.4310, L300.3900, L500.2500 ####[facility] [address] [place], [address] Basophils/100 WBC (Bld) 0.5 % Normal 0-1 [facility] Comment on above: Performed By: #### L 100.0100, L501.4021, L300.4310, L300.3900, L500.2500 ####[facility] [address] [place], [address] Eosinophils/100 WBC (Bld) 3.6 % Normal 0-5 [facility] Comment on above: Performed By: #### L 100.0100, L501.4021, L300.4310, L300.3900, L500.2500 ####[facility] [address] [place], [address] Erythrocyte distribution width (RBC) [Ratio] 12.7 % Normal 11.6-14.6 [facility] Comment on above: Performed By: #### L 100.0100, L501.4021, L300.4310, L300.3900, L500.2500 ####[facility] [address] [place], [address] Hematocrit (Bld) [Volume fraction] 36.3 % Low 40-54 [facility] Comment on above: Performed By: #### L 100.0100, L501.4021, L300.4310, L300.3900, L500.2500 ####[facility] [address] [place], [address] Hemoglobin (Bld) [Mass/Vol] 12.7 g/dL Low 13.0-16.5 [facility] Comment on above: Performed By: #### L 100.0100, L501.4021, L300.4310, L300.3900, L500.2500 ####[facility] [address] [place], [address] IG% 0.300 Normal 0.0-0.9 [facility] Comment on above: Result Comment: IG% - Immature Granulocytes (promyelocytes, myelocytes andmetamyelocytes) > 1% indicates that a LEFT SHIFT is Present. Performed By: #### L 100.0100, L501.4021, L300.4310, L300.3900, L500.2500 ####[facility] [address] [place], [address] Lymphocytes/100 WBC (Bld) 32.3 % Normal 19-41 [facility] Comment on above: Performed By: #### L 100.0100, L501.4021, L300.4310, L300.3900, L500.2500 ####[facility] [address] [place], [address] MCH (RBC) [Entitic mass] 31.0 pg Normal 27.0-32.0 [facility] Comment on above: Performed By: #### L 100.0100, L501.4021, L300.4310, L300.3900, L500.2500 ####[facility] [address] [place], [address] MCHC (RBC) [Mass/Vol] 35.0 g/dL Normal 32-36 [facility] Comment on above: Performed By: #### L 100.0100, L501.4021, L300.4310, L300.3900, L500.2500 ####[facility] [address] [place], [address] MCV (RBC) [Entitic vol] 88.5 fL Normal 80-94 [facility] Comment on above: Performed By: #### L 100.0100, L501.4021, L300.4310, L300.3900, L500.2500 ####[facility] [address] [place], [address] Monocytes/100 WBC (Bld) 11.7 % High 0-10 [facility] Comment on above: Performed By: #### L 100.0100, L501.4021, L300.4310, L300.3900, L500.2500 ####[facility] [address] [place], [address] Neutrophils/100 WBC (Bld) 51.6 % Normal 47-70 [facility] Comment on above: Performed By: #### L 100.0100, L501.4021, L300.4310, L300.3900, L500.2500 ####[facility] [address] [place], [address] Nucleated RBC (Bld) [#/Vol] 0 10*3/uL Normal 0-5 [facility] Comment on above: Performed By: #### L 100.0100, L501.4021, L300.4310, L300.3900, L500.2500 ####[facility] [address] [place], [address] Platelet mean volume (Bld) [Entitic vol] 10.0 fL Normal 6.2-12.0 [facility] Comment on above: Performed By: #### L 100.0100, L501.4021, L300.4310, L300.3900, L500.2500 ####[facility] [address] [place], [address] Platelets (Bld) [#/Vol] 270 10*3/uL Normal 150-450 [facility] Comment on above: Performed By: #### L 100.0100, L501.4021, L300.4310, L300.3900, L500.2500 ####[facility] [address] [place], [address] RBC (Bld) [#/Vol] 4.10 10*6/uL Low 4.6-6.2 [facility] Comment on above: Performed By: #### L 100.0100, L501.4021, L300.4310, L300.3900, L500.2500 ####[facility] [address] [place], [address] RDW SD 41.2 fl Normal 35.1-43.9 [facility] Comment on above: Performed By: #### L 100.0100, L501.4021, L300.4310, L300.3900, L500.2500 ####[facility] [address] [place], [address] WBC (Bld) [#/Vol] 5.9 10*3/uL Normal 4.4-11.0 [facility] Comment on above: Performed By: #### L 100.0100, L501.4021, L300.4310, L300.3900, L500.2500 ####[facility] [address] [place], [address] Calcium oxalate crystals det ection in urine sediment by light microscopyOrdered By: Diogenes Villalpando on 01-12-2025 Calcium oxalate crystals LM Ql (Urine sed) 1+ /hpf [facility] Echo Complete W/ Contraston 01-12-2025 Echo Complete W/ Contrast Normal [facility] Emergency Department Summary on 01-12-2025 Emergency Department Summary Normal [facility] H AND P Exam - Hospitaliston 01-12-2025 H&P Exam - Hospitalist Normal [facility] Hyaline casts LM.LPF (Urine sed) [#/Area]Ordered By: Diogenes Villalpando on 01-12-2025 Hyaline casts (Urine sed) [#/Area] 0 /[LPF] 0-5 [facility] International normalized rat io (INR) calculationOrdered By: Diogenes Villalpando on 01-12-2025 INR Coag (Bld) [Relative time] 0.9 {INR} [facility] Ketones Test strip Ql (U)Ord ered By: Diogenes Villalpando on 01-12-2025 Ketones Ql (U) Negative Negative [facility] L499.0042on 01-12-2025 Trop T High Sen 38 ng/L High <=22 [facility] Comment on above: Performed By: #### L 499.0042 ####[facility] [address] [place], [address] L499.0043on 01-12-2025 Trop T High Sen 36 ng/L High <=22 [facility] Comment on above: Performed By: #### L 499.0043 ####[facility] [address] [place], [place], [address] L501.4021on 01-12-2025 Trop T High Sen 42 ng/L High <=22 [facility] Comment on above: Performed By: #### L 100.0100, L501.4021, L300.4310, L300.3900, L500.2500 ####[facility] [address] [place], [address] Microscopic analysis of urin e for red blood cells (RBC)Ordered By: Diogenes Villalpando on 01-12-2025 Microscopic analysis of urine for red blood cells (RBC) 0-5 SEEN /hpf 0-5 [facility] Mucus LM Ql (Urine sed)Order ed By: Diogenes Villalpando on 01-12-2025 Mucus Ql (Urine sed) 0 SEEN /hpf [facility] Nitrite Test strip Ql (U)Ord ered By: Diogenes Villalpando on 01-12-2025 Nitrite Ql (U) Negative Negative [facility] Partial Thromboplast Timeon 01-12-2025 aPTT Coag (Bld) [Time] 22.3 s Low 24.1-36.2 [facility] Comment on above: Performed By: #### L 100.0100, L501.4021, L300.4310, L300.3900, L500.2500 ####[facility] [address] [place], [place], [id number] Protein Test strip Ql (U)Ord ered By: Diogenes Villalpando on 01-12-2025 Protein Ql (U) 30 mg/dl High Negative [facility] Prothrombin Time w/INRon INR Coag (PPP) [Relative time] 0.9 {INR} Normal [facility] Comment on above: Performed By: #### L 100.0100, L501.4021, L300.4310, L300.3900, L500.2500 ####[facility] [address] [place], [address] PT Coag (PPP) [Time] 12.5 s Normal 11.7-14.9 [facility] Comment on above: Performed By: #### L 100.0100, L501.4021, L300.4310, L300.3900, L500.2500 ####[facility] [address] [place], [address] Prothrombin timeOrdered By: Diogenes Villalpando on 01-12-2025 PT Coag (PPP) [Time] 12.5 s 11.7-14.9 [facility] STROKE Brain/Head without Co nton 01-12-2025 STROKE Brain/Head without Cont Normal [facility] STROKE CTA Head AND Neck W/C onon 01-12-2025 STROKE CTA Head AND Neck W/Con Normal [facility] Squamous epithelial cells de tection in urine sediment by light microscopyOrdered By: Diogenes Villalpando on 01-12-2025 Epithelial cells.squamous LM Ql (Urine sed) 0-5 SEEN /hpf 0-5 [facility] Troponin T.cardiac [Mass/vol ume] in Serum or Plasma by High sensitivity methodOrdered By: Diogenes Villalpando on 01-12-2025 Troponin T.cardiac High sensitivity method [Mass/Vol] 36 ng/L High <22 [facility] Troponin T.cardiac High sensitivity method [Mass/Vol] 38 ng/L High <22 [facility] Troponin T.cardiac High sensitivity method [Mass/Vol] 42 ng/L High <22 [facility] Urinalysis, Completeon 01-12 CA OX CRYSTAL 1+ /hpf Normal [facility] Comment on above: Order Comment: CLEAN CATCH Performed By: #### L 400.0001 ####[facility] [address] [place], [address] RBC 0-5 SEEN Normal 0-5 [facility] Comment on above: Order Comment: CLEAN CATCH Performed By: #### L 400.0001 ####[facility] [address] [place], [address] CAST,HYALINE 0-5 SEEN Normal 0-5 [facility] Comment on above: Order Comment: CLEAN CATCH Performed By: #### L 400.0001 ####[facility] [address] [place], [address] EPI,SQUAMOUS 0-5 SEEN Normal 0-5 [facility] Comment on above: Order Comment: CLEAN CATCH Performed By: #### L 400.0001 ####[facility] [address] [place], [address] WBC 0-5 SEEN Normal 0-5 [facility] Comment on above: Order Comment: CLEAN CATCH Performed By: #### L 400.0001 ####[facility] [address] [place], [address] BACTERIA 0 SEEN Normal None Seen [facility] Comment on above: Order Comment: CLEAN CATCH Performed By: #### L 400.0001 ####[facility] [address] [place], [address] Mucus Ql (Urine sed) 0 SEEN Normal [facility] Comment on above: Order Comment: CLEAN CATCH Performed By: #### L 400.0001 ####[facility] [address] [place], [address] Urine clarityOrdered By: Simeon Villalpando on 01-12-2025 Clarity (U) Clear Clear [facility] Urine color determinationOrd ered By: Diogenes Villalpando on 01-12-2025 Color (U) Yellow Yellow [facility] Urine glucose detectionOrder ed By: Diogenes Villalpando on 01-12-2025 Glucose Ql (U) 1000 mg/dl High Normal [facility] Urine leukocyte esterase det ection by dipstickOrdered By: Diogenes Villalpando on 01-12-2025 Leukocyte esterase Test strip Ql (U) Negative Negative [facility] Urine pHOrdered By: Diogenes Villalpando on 01-12-2025 pH (U) 6.0 [pH] 5.0 - 8.0 [facility] Urine sediment bacteria coun t by microscopy (number/high power field)Ordered By: Diogenes Villalpando on 01-12-2025 Bacteria LM.HPF (Urine sed) [#/Area] 0 /[HPF] None Seen [facility] Urine specific gravity measu rementOrdered By: Diogenes Villalpando on 01-12-2025 Specific gravity (U) [Rel density] 1.015 1.002-1.030 [facility] Urine urobilinogen measureme ntOrdered By: Diogenes Villalpando on 01-12-2025 Urobilinogen Ql (U) Normal mg/dl Normal [facility] White blood cell countOrdere d By: Diogenes Villalpando on 01-12-2025 White blood cell count 0-5 SEEN /hpf 0-5 [facility] Post Void Residual Bladderon 12-31-2024 Post Void Residual Bladder Normal [facility] Urine Cultureon 12-31-2024 URC Culture exhibits no growth. Normal [facility] Comment on above: Performed By: #### M 100.2200, L400.0001, L500.2500 ####[facility] [address] [place], [address] Anion gap in Serum or Plasma Ordered By: Briseyda Sinclair on 12-30-2024 Anion gap [Moles/Vol] 11 mmol/L 01-28 [facility] BUN/creatinine ratioOrdered By: Briseyda Sinclair on 12-30-2024 Urea nitrogen/Creatinine [Mass ratio] 17.3 mg/mg 07-05 [facility] Basic Metabolic Profile (BMP )on 12-30-2024 BUN/CRE 17.3 RATIO Normal 07-05 [facility] Comment on above: Performed By: #### M 100.2200, L400.0001, L500.2500 ####[facility] [address] [place], [address] GAP 11 Normal 01-28 [facility] Comment on above: Performed By: #### M 100.2200, L400.0001, L500.2500 ####[facility] [address] [place], [address] Bilirubin Test strip Ql (U)O rdered By: Briseyda Sinclair on 12-30-2024 Bilirubin Ql (U) Negative Negative [facility] Carbon dioxide, total [Moles /volume] in Central venous bloodOrdered By: Briseyda Sinclair on 12-30-2024 CO2 [Moles/Vol] 25.5 mmol/L Normal 21.0-32.0 [facility] Comment on above: Performed By: #### M 100.2200, L400.0001, L500.2500 ####[facility] [address] [place], [address] Chloride assayOrdered By: Marcie Sinclair on 12-30-2024 Chloride [Moles/Vol] 106 mmol/L Normal 98-108 [facility] Comment on above: Performed By: #### M 100.2200, L400.0001, L500.2500 ####[facility] [address] [place], [address] Epithelial cells.squamous LM Ql (Urine sed)Ordered By: Briseyda Sinclair on 12-30-2024 Epithelial cells.squamous LM.HPF (Urine sed) [#/Area] 0 /[HPF] 0-5 [facility] GFR/1.73 sq M.predicted anjelica g non-blacks MDRD (S/P/Bld) [Vol rate/Area]Ordered By: rBiseyda Sinclair on 12-30-2024 Estimated GFR (MDRD) Non-Af Amer 57 Low >60 [facility] Comment on above: mL/min/1.73m2 CKD-EP I Creatinine Equation (2020) Glomerular filtration rate ( GFR) estimation/1.73 sq m using serum, plasma, or whole bOrdered By: Briseyda Sinclair on 12-30-2024 GFR/1.73 sq M.predicted among non-blacks MDRD (S/P/Bld) [Vol rate/Area] 57 mL/min/{1.73_m2} Low >60 [facility] Comment on above: mL/min/1.73m2 CKD-EP I Creatinine Equation (2020) Result Comment: mL/m in/1.73m2 CKD-EPI Creatinine Equation (2020) Performed By: #### M 100.2200, L400.0001, L500.2500 ####[facility] [address] [place], [address] Glucose Ql (U)Ordered By: Marcie Sinclair on 12-30-2024 Glucose (U) [Mass/Vol] 1000 mg/dL High Normal [facility] Ketones Test strip Ql (U)Ord ered By: Briseyda Sinclair on 12-30-2024 Ketones Ql (U) Negative Negative [facility] Microscopic analysis of urin e for red blood cells (RBC)Ordered By: Briseyda Sinclair on 12-30-2024 Microscopic analysis of urine for red blood cells (RBC) 0 SEEN /hpf 0-5 [facility] Urine RBC 0 SEEN /hpf 0-5 [facility] Mucus LM Ql (Urine sed)Order ed By: Briseyda Sinclair on 12-30-2024 Mucus Ql (Urine sed) 0 SEEN /hpf [facility] Nitrite Test strip Ql (U)Ord ered By: Briseyda Sinclair on 12-30-2024 Nitrite Ql (U) Negative Negative [facility] Potassium measurement (mass/ volume)Ordered By: Briseyda Sinclair on 12-30-2024 Potassium [Moles/Vol] 4.3 mmol/L Normal 3.3-5.1 [facility] Comment on above: Performed By: #### M 100.2200, L400.0001, L500.2500 ####[facility] [address] [place], [address] Potassium (Unsp spec) [Mass/Vol] 4.3 mmol/L 3.3-5.1 [facility] Protein Test strip Ql (U)Ord ered By: Briseyda Sinclair on 12-30-2024 Protein Ql (U) 15 mg/dl High Negative [facility] Serum creatinine measurement (mass/volume)Ordered By: Briseyda Sinclair on 12-30-2024 Creatinine [Mass/Vol] 1.31 mg/dL High 0.70-1.20 [facility] Comment on above: Performed By: #### M 100.2200, L400.0001, L500.2500 ####[facility] [address] [place], [address] Serum glucose measurement (m ass/volume)Ordered By: Briseyda Sinclair on 12-30-2024 Glucose [Mass/Vol] 159 mg/dL High 70-99 [facility] Comment on above: Performed By: #### M 100.2200, L400.0001, L500.2500 ####[facility] [address] [place], [address] Serum or plasma calcium makeda urement (mass/volume)Ordered By: Briseyda Sinclair on 12-30-2024 Calcium [Mass/Vol] 9.7 mg/dL Normal 7.6-11.0 [facility] Comment on above: Performed By: #### M 100.2200, L400.0001, L500.2500 ####[facility] [address] [place], [address] Serum or plasma urea nitroge n measurement (mass/volume)Ordered By: Briseyda Sinclair on 12-30-2024 Urea nitrogen [Mass/Vol] 23 mg/dL High 4-19 [facility] Comment on above: Performed By: #### M 100.2200, L400.0001, L500.2500 ####[facility] [address] [place], [address] Sodium levelOrdered By: Amita Sinclair on 12-30-2024 Sodium [Moles/Vol] 143 mmol/L Normal 133-145 [facility] Comment on above: Performed By: #### M 100.2200, L400.0001, L500.2500 ####[facility] [address] [place], [address] Squamous epithelial cells de tection in urine sediment by light microscopyOrdered By: Briseyda Sinclair on 12-30-2024 Epithelial cells.squamous LM Ql (Urine sed) 0 SEEN /hpf 0-5 [facility] Urinalysis, Completeon 12-30 BACTERIA 0 SEEN Normal None Seen [facility] Comment on above: Order Comment: ZOYA CTOR TO SPECIFY Performed By: #### M 100.2200, L400.0001, L500.2500 ####[facility] [address] [place], [address] EPI,SQUAMOUS 0 SEEN Normal 0-5 [facility] Comment on above: Order Comment: ZOYA CTOR TO SPECIFY Performed By: #### M 100.2200, L400.0001, L500.2500 ####[facility] [address] [place], [address] Mucus Ql (Urine sed) 0 SEEN Normal [facility] Comment on above: Order Comment: ZOYA CTOR TO SPECIFY Performed By: #### M 100.2200, L400.0001, L500.2500 ####[facility] [address] [place], [address] RBC 0 SEEN Normal 0-[address] [place] [address] Comment on above: Order Comment: ZOYA CTOR TO SPECIFY Performed By: #### M 100.2200, L400.0001, L500.2500 ####[facility] [address] [place], [address] WBC 0 SEEN Normal 0-5 [facility] Comment on above: Order Comment: ZOYA CTOR TO SPECIFY Performed By: #### M 100.2200, L400.0001, L500.2500 ####[facility] [address] [place], [address] Urine blood detectionOrdered By: Briseyda Sinclair on 12-30-2024 Urine Occult Blood Negative Negative [facility] Urine clarityOrdered By: Isadora Sinclair on 12-30-2024 Clarity (U) Clear Clear [facility] Urine color determinationOrd ered By: Briseyda Sinclair on 12-30-2024 Color (U) Yellow Yellow [facility] Urine cultureOrdered By: Isadora Sinclair on 12-30-2024 Bacteria identified Cx Nom (U) Culture exhibits no growth. [facility] Urine glucose detectionOrder ed By: Briseyda Sinclair on 12-30-2024 Glucose Ql (U) 1000 mg/dl High Normal [facility] Urine leukocyte esterase det ection by dipstickOrdered By: Briseyda Sinclair on 12-30-2024 Leukocyte esterase Test strip Ql (U) Negative Negative [facility] Urine pHOrdered By: Briseyda uriarte on 12-30-2024 pH (U) 7.0 [pH] 5.0 - 8.0 [facility] Urine sediment bacteria coun t by microscopy (number/high power field)Ordered By: Briseyda Sinclair on 12-30-2024 Bacteria LM.HPF (Urine sed) [#/Area] 0 /[HPF] None Seen [facility] Urine specific gravity measu rementOrdered By: Briseyda Sinclair on 12-30-2024 Specific gravity (U) [Rel density] 1.015 1.002-1.030 [facility] Urine urobilinogen measureme ntOrdered By: Briseyda Sinclair on 12-30-2024 Urobilinogen Ql (U) Normal mg/dl Normal [facility] Urobilinogen Ql (U)Ordered B y: Briseyda Sinclair on 12-30-2024 Urine Urobilinogen Normal mg/dl Normal [facility] White blood cell countOrdere d By: Briseyda Sinclair on 12-30-2024 Urine WBC 0 SEEN /hpf 0-5 [facility] White blood cell count 0 SEEN /hpf 0-5 [facility] Free T3on 11-18-2024 Free T3 [Mass/Vol] 2.7 pg/mL Normal 2.18-3.98 [facility] Comment on above: Performed By: #### L 506.0400, L501.9520, L501.75132 ####[facility] [address] [place], [address] Free O3Iwzyfew By: Briseyda albert on 11-18-2024 Free T3 [Mass/Vol] 2.7 pg/mL 2.18-3.98 [facility] Free Triiodothyronine (T3) pg/dL 2.7 pg/mL 2.18-3.98 [facility] T4 Free Directon 11-18-2024 T4 FREE DIRECT 1.10 ng/dL Normal 0.76-1.46 [facility] Comment on above: Performed By: #### L 506.0400, L501.9520, L501.64396 ####[facility] [address] [place], [address] T4 freeOrdered By: Briseyda albert on 11-18-2024 Free T4 [Mass/Vol] 1.10 ng/dL 0.76-1.46 [facility] TSH DL <= 0.005 mIU/L QnOrde red By: Briseyda Sinclair on 11-18-2024 Thyroid Stimulating Hormone (TSH) 3.230 uIU/mL 0.300-4.200 [facility] TSH Qn 3.230 uIU/mL 0.300-4.200 [facility] Thyroid Stim Hormone (TSH)on 11-18-2024 TSH 3.230 uIU/mL Normal 0.300-4.200 [facility] Comment on above: Performed By: #### L 506.0400, L501.9520, L501.90370 ####[facility] [address] [place], [place], [address] Cardiology Visit Reporton Cardiology Visit Report Normal [facility] PT D/C Summary (1)on 025 PT D/C Summary (1) Normal [facility] Orthopedic Visit Reporton Orthopedic Visit Report Normal [facility] Inital Evaluation (1) - PTon 08-31-2024 Inital Evaluation (1) - PT Normal [facility] Spine Lumbar (Routine)on Spine Lumbar (Routine) Normal [facility] L/S Spine Min 4 Viewson L/S Spine Min 4 Views Normal [facility] Orthopedic Visit Reporton Orthopedic Visit Report Normal [facility] [id number] DOrdered By: Hammad Sinclair on 08-11-2024 Vitamin [...] 08-11-2024 Neutrophils (Bld) [#/Vol] 2.6 10*3/uL 2.0-7.7 [facility] Albumin to globulin ratioOrd ered By: Briseyda Sinclair on 08-11-2024 Albumin/Globulin [Mass ratio] 1.2 {ratio} 0.9-2.4 [facility] Basophil percentageOrdered B y: Briseyda Sinclair on 08-11-2024 Basophils/100 WBC (Bld) 0.5 % 0-1 [facility] Bilirubin directOrdered By: Dalila Chaves on 08-11-2024 Bilirubin.direct [Mass/Vol] 0.10 mg/dL 0.00-0.30 [facility] Bilirubin, totalOrdered By: Dalila Chaves on 08-11-2024 Bilirubin [Mass/Vol] 0.30 mg/dL 0.20-1.00 [facility] Comment on above: For patients on eltr ombopag therapy, use of Dimension [place] TBIL is not recommended. Blood urea nitrogen (BUN)/cr eatinine ratioOrdered By: Briseyda Sinclair on 08-11-2024 Urea nitrogen/Creatinine [Mass ratio] 22.3 mg/mg High - [facility] CBC W/Diff, Automatedon 07-18 Absolute Lymph 2.07 X10 3/uL Normal 0.83-4.51 [facility] Comment on above: Performed By: #### L 100.0100, L501.9985, L500.4050, L500.4100, L506.1000, L501.5200, L501.9520 ####[facility] [address] [place], [address] Absolute Neut 2.6 X10 3/uL Normal 2.0-7.7 [facility] Comment on above: Performed By: #### L 100.0100, L501.9985, L500.4050, L500.4100, L506.1000, L501.5200, L501.9520 ####[facility] [address] [place], [address] Basophils/100 WBC (Bld) 0.5 % Normal 0-1 [facility] Comment on above: Performed By: #### L 100.0100, L501.9985, L500.4050, L500.4100, L506.1000, L501.5200, L501.9520 ####[facility] [address] [place], [address] Eosinophils/100 WBC (Bld) 8.1 % High 0-5 [facility] Comment on above: Performed By: #### L 100.0100, L501.9985, L500.4050, L500.4100, L506.1000, L501.5200, L501.9520 ####[facility] [address] [place], [address] Erythrocyte distribution width (RBC) [Ratio] 12.3 % Normal 11.6-14.6 [facility] Comment on above: Performed By: #### L 100.0100, L501.9985, L500.4050, L500.4100, L506.1000, L501.5200, L501.9520 ####[facility] [address] [place], [address] Hematocrit (Bld) [Volume fraction] 37.3 % Low 40-54 [facility] Comment on above: Performed By: #### L 100.0100, L501.9985, L500.4050, L500.4100, L506.1000, L501.5200, L501.9520 ####[facility] [address] [place], [address] Hemoglobin (Bld) [Mass/Vol] 12.7 g/dL Low 13.0-16.5 [facility] Comment on above: Performed By: #### L 100.0100, L501.9985, L500.4050, L500.4100, L506.1000, L501.5200, L501.9520 ####[facility] [address] [place], [address] IG% 0.200 Normal 0.0-0.9 [facility] Comment on above: Result Comment: IG% - Immature Granulocytes (promyelocytes, myelocytes andmetamyelocytes) > 1% indicates that a LEFT SHIFT is Present. Performed By: #### L 100.0100, L501.9985, L500.4050, L500.4100, L506.1000, L501.5200, L501.9520 ####[facility] [address] [place], [address] Lymphocytes/100 WBC (Bld) 35.6 % Normal 19-41 [facility] Comment on above: Performed By: #### L 100.0100, L501.9985, L500.4050, L500.4100, L506.1000, L501.5200, L501.9520 ####[facility] [address] [place], [address] MCH (RBC) [Entitic mass] 31.1 pg Normal 27.0-32.0 [facility] Comment on above: Performed By: #### L 100.0100, L501.9985, L500.4050, L500.4100, L506.1000, L501.5200, L501.9520 ####[facility] [address] [place], [address] MCHC (RBC) [Mass/Vol] 34.0 g/dL Normal 32-36 [facility] Comment on above: Performed By: #### L 100.0100, L501.9985, L500.4050, L500.4100, L506.1000, L501.5200, L501.9520 ####[facility] [address] [place], [address] MCV (RBC) [Entitic vol] 91.4 fL Normal 80-94 [facility] Comment on above: Performed By: #### L 100.0100, L501.9985, L500.4050, L500.4100, L506.1000, L501.5200, L501.9520 ####[facility] [address] [place], [address] Monocytes/100 WBC (Bld) 11.2 % High 0-10 [facility] Comment on above: Performed By: #### L 100.0100, L501.9985, L500.4050, L500.4100, L506.1000, L501.5200, L501.9520 ####[facility] [address] [place], [address] Neutrophils/100 WBC (Bld) 44.4 % Low 47-70 [facility] Comment on above: Performed By: #### L 100.0100, L501.9985, L500.4050, L500.4100, L506.1000, L501.5200, L501.9520 ####[facility] [address] [place], [address] Nucleated RBC (Bld) [#/Vol] 0 10*3/uL Normal 0-5 [facility] Comment on above: Performed By: #### L 100.0100, L501.9985, L500.4050, L500.4100, L506.1000, L501.5200, L501.9520 ####[facility] [address] [place], [address] Platelet mean volume (Bld) [Entitic vol] 10.1 fL Normal 6.2-12.0 [facility] Comment on above: Performed By: #### L 100.0100, L501.9985, L500.4050, L500.4100, L506.1000, L501.5200, L501.9520 ####[facility] [address] [place], [address] Platelets (Bld) [#/Vol] 240 10*3/uL Normal 150-450 [facility] Comment on above: Performed By: #### L 100.0100, L501.9985, L500.4050, L500.4100, L506.1000, L501.5200, L501.9520 ####[facility] [address] [place], [address] RBC (Bld) [#/Vol] 4.08 10*6/uL Low 4.6-6.2 [facility] Comment on above: Performed By: #### L 100.0100, L501.9985, L500.4050, L500.4100, L506.1000, L501.5200, L501.9520 ####[facility] [address] [place], [address] RDW SD 41.1 fl Normal 35.1-43.9 [facility] Comment on above: Performed By: #### L 100.0100, L501.9985, L500.4050, L500.4100, L506.1000, L501.5200, L501.9520 ####[facility] [address] [place], [address] WBC (Bld) [#/Vol] 5.8 10*3/uL Normal 4.4-11.0 [facility] Comment on above: Performed By: #### L 100.0100, L501.9985, L500.4050, L500.4100, L506.1000, L501.5200, L501.9520 ####[facility] [address] [place], [address] Carbon dioxide measurementOr dered By: Briseyda Sinclair on 08-11-2024 CO2 [Moles/Vol] 25.0 mmol/L 21.0-32.0 [facility] Chloride measurementOrdered By: Briseyda Sinclair on 08-11-2024 Chloride [Moles/Vol] 108 mmol/L High 98-107 [facility] Comprehensive Metabolic Prof ilon 08-11-2024 Albumin/Globulin [Mass ratio] 1.2 {ratio} Normal 0.9-2.4 [facility] Comment on above: Performed By: #### L 100.0100, L501.9985, L500.4050, L500.4100, L506.1000, L501.5200, L501.9520 ####[facility] [address] [place], [place], [id number] ALT [Catalytic activity/Vol] 29 U/L Normal 16-61 [facility] Comment on above: Performed By: #### L 100.0100, L501.9985, L500.4050, L500.4100, L506.1000, L501.5200, L501.9520 ####[facility] [address] [place], [place], [id number] AST [Catalytic activity/Vol] 15 U/L Normal 15-37 [facility] Comment on above: Performed By: #### L 100.0100, L501.9985, L500.4050, L500.4100, L506.1000, L501.5200, L501.9520 ####[facility] [address] [place], [place], [address] BUN/CRE 22.3 RATIO High 10-20 [facility] Comment on above: Performed By: #### L 100.0100, L501.9985, L500.4050, L500.4100, L506.1000, L501.5200, L501.9520 ####[facility] [address] [place], [address] CA,Total 9.3 mg/dL Normal 8.5-10.1 [facility] Comment on above: Performed By: #### L 100.0100, L501.9985, L500.4050, L500.4100, L506.1000, L501.5200, L501.9520 ####[facility] [address] [place], [address] Chloride [Moles/Vol] 108 mmol/L High 98-107 [facility] Comment on above: Performed By: #### L 100.0100, L501.9985, L500.4050, L500.4100, L506.1000, L501.5200, L501.9520 ####[facility] [address] [place], [address] CO2 [Moles/Vol] 25.0 mmol/L Normal 21.0-32.0 [facility] Comment on above: Performed By: #### L 100.0100, L501.9985, L500.4050, L500.4100, L506.1000, L501.5200, L501.9520 ####[facility] [address] [place], [address] Creatinine [Mass/Vol] 1.30 mg/dL Normal 0.70-1.30 [facility] Comment on above: Result Comment: The validity of the calculated GFR GFRAA in patients over70 years has not been determined. Clinical correlation isessential. Performed By: #### L 100.0100, L501.9985, L500.4050, L500.4100, L506.1000, L501.5200, L501.9520 ####[facility] [address] [place], [address] EST GFR - AA 69 mL/min Normal >60 [facility] Comment on above: Result Comment: Afri can Prydeinig GFR Calc Performed By: #### L 100.0100, L501.9985, L500.4050, L500.4100, L506.1000, L501.5200, L501.9520 ####[facility] [address] [place], [address] GAP 6 Normal 5-15 [facility] Comment on above: Performed By: #### L 100.0100, L501.9985, L500.4050, L500.4100, L506.1000, L501.5200, L501.9520 ####[facility] [address] [place], [place], [phone](877) GFR/1.73 sq M.predicted among non-blacks MDRD (S/P/Bld) [Vol rate/Area] 57 mL/min/{1.73_m2} Low >60 [facility] Comment on above: Result Comment: Non- GFR Calc Performed By: #### L 100.0100, L501.9985, L500.4050, L500.4100, L506.1000, L501.5200, L501.9520 ####[facility] [address] [place], [place], [phone] Globulin (S) [Mass/Vol] 3.2 g/dL Normal 2.2-4.2 [facility] Comment on above: Performed By: #### L 100.0100, L501.9985, L500.4050, L500.4100, L506.1000, L501.5200, L501.9520 ####[facility] [address] [place], [address] Glucose [Mass/Vol] 208 mg/dL High 74-106 [facility] Comment on above: Result Comment: Gluc ose result greater than or equal to 200 mg/dLsuggests DIABETES MELLITUS per A.D.A. criteria. Performed By: #### L 100.0100, L501.9985, L500.4050, L500.4100, L506.1000, L501.5200, L501.9520 ####[facility] [address] [place], [address] Potassium [Moles/Vol] 4.2 mmol/L Normal 3.5-5.1 [facility] Comment on above: Performed By: #### L 100.0100, L501.9985, L500.4050, L500.4100, L506.1000, L501.5200, L501.9520 ####[facility] [address] [place], [address] Sodium [Moles/Vol] 139 mmol/L Normal 136-145 [facility] Comment on above: Performed By: #### L 100.0100, L501.9985, L500.4050, L500.4100, L506.1000, L501.5200, L501.9520 ####[facility] [address] [place], [address] T PROT 6.9 g/dL Normal 6.4-8.2 [facility] Comment on above: Performed By: #### L 100.0100, L501.9985, L500.4050, L500.4100, L506.1000, L501.5200, L501.9520 ####[facility] [address] [place], [address] Urea nitrogen [Mass/Vol] 29 mg/dL High 7-18 [facility] Comment on above: Performed By: #### L 100.0100, L501.9985, L500.4050, L500.4100, L506.1000, L501.5200, L501.9520 ####[facility] [address] [place], [place], [id number] Direct serum free thyroxine (FT4) measurementOrdered By: Briseyda Sinclair on 08-11-2024 Free T4 [Mass/Vol] 0.84 ng/dL 0.76-1.46 [facility] Eosinophil percentageOrdered By: Briseyda Sinclair on 08-11-2024 Eosinophils/100 WBC (Bld) 8.1 % High 0-5 [facility] Erythrocyte distribution wid th ratioOrdered By: Briseyda Sinclair on 08-11-2024 Erythrocyte distribution width (RBC) [Ratio] 12.3 % 11.6-14.6 [facility] Erythrocyte distribution wid th standard deviationOrdered By: Briseyda Sinclair on 08-11-2024 Erythrocyte distribution width (RBC) [Entitic vol] 41.1 fL 35.1-43.9 [facility] Estimated glomerular filtrat ion rate (GFR) AmericanOrdered By: Briseyda Sinclair on 08-11-2024 Estimated GFR (MDRD) Amer 69 mL/min >60 [facility] Comment on above: GFR Calc Free T3on 08-11-2024 Free T3 [Mass/Vol] 2.2 pg/mL Normal 2.18-3.98 [facility] Comment on above: Performed By: #### L 506.0400, L501.21085 ####[facility] [address] [place], [place], [id number] Free E4Gvbrlsu By: Briseyda albert on 08-11-2024 Free Triiodothyronine (T3) pg/dL 2.2 pg/mL 2.18-3.98 [facility] Glomerular filtration rate ( GFR) estimationOrdered By: Briseyda Sinclair on 08-11-2024 Estimated GFR (MDRD) Non-Af Amer 57 mL/min Low >60 [facility] Comment on above: Non- GFR Calc Glucose measurementOrdered B y: Briseyda Sinclair on 08-11-2024 Glucose [Mass/Vol] 208 mg/dL High 74-106 [facility] Comment on above: Glucose result great er than or equal to 200 mg/dLsuggests DIABETES MELLITUS per A.D.A. criteria. Hematocrit Auto (Bld) [Volum e fraction]Ordered By: Briseyda Sinclair on 08-11-2024 Hematocrit (Bld) [Volume fraction] 37.3 % Low 40-54 [facility] Hemoglobin A1con 08-11-2024 HbA1c (Bld) [Mass fraction] 10.7 % High 3.8-5.6 [facility] Comment on above: Result Comment: Norm al < 5.7 % Prediabetic 5.7 - 6.4 % Diabetic >or= 6.5 % Please note range changes. Performed By: #### L 100.0100, L501.9985, L500.4050, L500.4100, L506.1000, L501.5200, L501.9520 ####[facility] [address] [place], [address] Hemoglobin A1c percentageOrd ered By: Briseyda Sinclair on 08-11-2024 HbA1c (Bld) [Mass fraction] 10.7 % High 3.8-5.6 [facility] Comment on above: Normal < 5.7 % Predi abetic 5.7 - 6.4 % Diabetic >or= 6.5 % Please note range changes. Hemoglobin measurementOrdere d By: Briseyda Sinclair on 08-11-2024 Hemoglobin (Bld) [Mass/Vol] 12.7 g/dL Low 13.0-16.5 [facility] High density lipoprotein (HD L) measurementOrdered By: Dalila Chaves on 08-11-2024 Cholesterol in HDL [Mass/Vol] 41 mg/dL >40 [facility] Comment on above: The drugs N-Acetylcy steine and Metamizole may falsely depress this assay. Reference Range HDL <40 mg/dL Low HDL Cholesterol HDL >or= 60 mg/dL High HDL Cholesterol Immature granulocytes/100 WB C Auto (Bld)Ordered By: Briseyda Sinclair on 08-11-2024 Immature granulocytes/100 WBC (Bld) 0.200 % 0.0-0.9 [facility] Comment on above: IG% - Immature Granu locytes (promyelocytes, myelocytes and metamyelocytes) > 1% indicates that a LEFT SHIFT is Present. Laboratory - Chemistry and C hemistry - challengeOrdered By: Dalila Chaves on 08-11-2024 AST [Catalytic activity/Vol] 12 U/L Low 15-37 [facility] Lipid Profileon 08-11-2024 Cholesterol [Mass/Vol] 162 mg/dL Normal 200 [facility] Comment on above: Result Comment: <200 mg/dL Desirable 200-240 mg/dL Borderline >240 mg/dL High Risk Performed By: #### L 500.3400, L500.4100 ####[facility] [address] [place], [address] Cholesterol [Mass/Vol] 163 mg/dL Normal 200 [facility] Comment on above: Result Comment: <200 mg/dL Desirable 200-240 mg/dL Borderline >240 mg/dL High Risk Performed By: #### L 100.0100, L501.9985, L500.4050, L500.4100, L506.1000, L501.5200, L501.9520 ####[facility] [address] [place], [address] Cholesterol in HDL [Mass/Vol] 41 mg/dL Normal [facility] Comment on above: Result Comment: The drugs N-Acetylcysteine and Metamizole may falselydepress this assay. Reference Range HDL <40 mg/dL Low HDL Cholesterol HDL >or= 60 mg/dL High HDL Cholesterol Performed By: #### L 500.3400, L500.4100 ####[facility] [address] [place], [address] Performed By: #### L 100.0100, L501.9985, L500.4050, L500.4100, L506.1000, L501.5200, L501.9520 ####[facility] [address] [place], [address] Cholesterol in LDL [Mass/Vol] 62 mg/dL Normal 0-130 [facility] Comment on above: Performed By: #### L 500.3400, L500.4100 ####[facility] [address] [place], [address] Cholesterol in LDL [Mass/Vol] 64 mg/dL Normal 0-130 [facility] Comment on above: Performed By: #### L 100.0100, L501.9985, L500.4050, L500.4100, L506.1000, L501.5200, L501.9520 ####[facility] [address] [place], [address] Cholesterol in VLDL [Mass/Vol] 59 mg/dL High 5-40 [facility] Comment on above: Performed By: #### L 500.3400, L500.4100 ####[facility] [address] [place], [address] Cholesterol in VLDL [Mass/Vol] 58 mg/dL High 5-40 [facility] Comment on above: Performed By: #### L 100.0100, L501.9985, L500.4050, L500.4100, L506.1000, L501.5200, L501.9520 ####[facility] [address] [place], [address] Triglyceride [Mass/Vol] 297 mg/dL High [facility] Comment on above: Result Comment: The drugs N-Acetylcysteine and Metamizole may falselydepress this assay.Serum Triglycerides Reference Interval Normal <150 mg/dL Borderline high 150 - 199 mg/dL High 200 - 499 mg/dL Very High > or = 500 mg/dL Performed By: #### L 500.3400, L500.4100 ####[facility] [address] [place], [address] Triglyceride [Mass/Vol] 291 mg/dL High [facility] Comment on above: Result Comment: The drugs N-Acetylcysteine and Metamizole may falselydepress this assay.Serum Triglycerides Reference Interval Normal <150 mg/dL Borderline high 150 - 199 mg/dL High 200 - 499 mg/dL Very High > or = 500 mg/dL Performed By: #### L 100.0100, L501.9985, L500.4050, L500.4100, L506.1000, L501.5200, L501.9520 ####[facility] [address] [place], [address] Liver Profileon 08-11-2024 Albumin [Mass/Vol] 3.7 g/dL Normal 3.2-5.0 [facility] Comment on above: Performed By: #### L 500.3400, L500.4100 ####[facility] [address] [place], [address] Performed By: #### L 100.0100, L501.9985, L500.4050, L500.4100, L506.1000, L501.5200, L501.9520 ####[facility] [address] [place], [address] ALK P 65 U/L Normal 45-117 [facility] Comment on above: Performed By: #### L 500.3400, L500.4100 ####[facility] [address] [place], [address] Performed By: #### L 100.0100, L501.9985, L500.4050, L500.4100, L506.1000, L501.5200, L501.9520 ####[facility] [address] [place], [address] ALT [Catalytic activity/Vol] 31 U/L Normal 16-61 [facility] Comment on above: Performed By: #### L 500.3400, L500.4100 ####[facility] [address] [place], [address] AST [Catalytic activity/Vol] 12 U/L Low 15-37 [facility] Comment on above: Performed By: #### L 500.3400, L500.4100 ####[facility] [address] [place], [address] Bilirubin [Mass/Vol] 0.30 mg/dL Normal 0.20-1.00 [facility] Comment on above: Result Comment: For patients on eltrombopag therapy, use of Dimension [place] TBIL is not recommended. Performed By: #### L 500.3400, L500.4100 ####[facility] [address] [place], [address] Performed By: #### L 100.0100, L501.9985, L500.4050, L500.4100, L506.1000, L501.5200, L501.9520 ####[facility] [address] [place], [address] Bilirubin.direct [Mass/Vol] 0.10 mg/dL Normal 0.00-0.30 [facility] Comment on above: Performed By: #### L 500.3400, L500.4100 ####[facility] [address] [place], [address] Globulin (S) [Mass/Vol] 3.3 g/dL Normal 2.2-4.2 [facility] Comment on above: Performed By: #### L 500.3400, L500.4100 ####[facility] [address] [place], [address] T PROT 7.0 g/dL Normal 6.4-8.2 [facility] Comment on above: Performed By: #### L 500.3400, L500.4100 ####[facility] [address] [place], [address] Low density lipoprotein (LDL ) cholesterol measurementOrdered By: Dalila Chaves on 08-11-2024 Cholesterol in LDL [Mass/Vol] 62 mg/dL 0-130 [facility] Lymphocytes Auto (Unsp spec) [#/Vol]Ordered By: Briseyda Sinclair on 08-11-2024 Lymphocytes (Bld) [#/Vol] 2.07 10*3/uL 0.83-4.51 [facility] Lymphocytes/100 WBC Auto (Un sp spec)Ordered By: Briseyda Sinclair on 08-11-2024 Lymphocytes/100 WBC (Bld) 35.6 % 19-41 [facility] MCV (mean corpuscular volume ) determinationOrdered By: Briseyda Sinclair on 08-11-2024 MCV (RBC) [Entitic vol] 91.4 fL 80-94 [facility] Magnesiumon 08-11-2024 Magnesium [Mass/Vol] 1.2 mg/dL Low 1.6-2.6 [facility] Comment on above: Performed By: #### L 100.0100, L501.9985, L500.4050, L500.4100, L506.1000, L501.5200, L501.9520 ####[facility] [address] [facility] [place], [address] Magnesium measurementOrdered By: Briseyda Sinclair on 08-11-2024 Magnesium [Mass/Vol] 1.2 mg/dL Low 1.6-2.6 [facility] Mean corpuscular hemoglobin (MCH) determinationOrdered By: Briseyda Sinclair on 08-11-2024 MCH (RBC) [Entitic mass] 31.1 pg 27.0-32.0 [facility] Mean corpuscular hemoglobin concentration (MCHC) determinationOrdered By: Briseyda Sinclair on 08-11-2024 MCHC (RBC) [Mass/Vol] 34.0 g/dL 32-36 [facility] Mean platelet volume determi nationOrdered By: Briseyda Sinclair on 08-11-2024 Platelet mean volume (Bld) [Entitic vol] 10.1 fL 6.2-12.0 [facility] Monocyte percentageOrdered B y: Briseyda Sinclair on 08-11-2024 Monocytes/100 WBC (Bld) 11.2 % High 0-10 [facility] Neutrophil percentageOrdered By: Briseyda Sinclair on 08-11-2024 Neutrophils/100 WBC (Bld) 44.4 % Low 47-70 [facility] Nucleated red blood cell per centageOrdered By: Briseyda Sinclair on 08-11-2024 Nucleated RBC/100 WBC (Bld) [Ratio] 0 % 0-5 [facility] Platelet countOrdered By: Marcie Sinclair on 08-11-2024 Platelets (Bld) [#/Vol] 240 10*3/uL 150-450 [facility] Potassium measurementOrdered By: Briseyda Sinclair on 08-11-2024 Potassium [Moles/Vol] 4.2 mmol/L 3.5-5.1 [facility] RBC Auto (Bld) [#/Vol]Ordere d By: Briseyda Sinclair on 08-11-2024 RBC (Bld) [#/Vol] 4.08 10*6/uL Low 4.6-6.2 [facility] Serum anion gap measurementO rdered By: Briseyda Sinclair on 08-11-2024 Anion gap [Moles/Vol] 6 mmol/L 5-15 [facility] Serum globulin measurementOr dered By: Dalila Chaves on 08-11-2024 Globulin (S) [Mass/Vol] 3.3 g/dL 2.2-4.2 [facility] Serum or plasma alanine denis otransferase (ALT) measurementOrdered By: Dalila Chaves on 08-11-2024 ALT [Catalytic activity/Vol] 31 U/L 16-61 [facility] Serum or plasma albumin makeda urement (mass/volume)Ordered By: Dalila Chaves on 08-11-2024 Albumin [Mass/Vol] 3.7 g/dL 3.2-5.0 [facility] Serum or plasma alkaline neisha sphatase measurementOrdered By: Dalila Chaves on 08-11-2024 ALP [Catalytic activity/Vol] 65 U/L 45-117 [facility] Serum or plasma calcium makeda urement (mass/volume)Ordered By: Briseyda Sinclair on 08-11-2024 Calcium [Mass/Vol] 9.3 mg/dL 8.5-10.1 [facility] Serum or plasma cholesterol measurement (mass/volume)Ordered By: Dalila Chaves on 08-11-2024 Cholesterol [Mass/Vol] 162 mg/dL <200 [facility] Comment on above: <200 mg/dL Desirable 200-240 mg/dL Borderline >240 mg/dL High Risk Serum or plasma creatinine m easurement (mass/volume)Ordered By: Briseyda Sinclair on 08-11-2024 Creatinine [Mass/Vol] 1.30 mg/dL 0.70-1.30 [facility] Comment on above: The validity of the calculated GFR & GFRAA in patients over 70 years has not been determined. Clinical correlation is essential. Serum or plasma urea nitroge n measurement (mass/volume)Ordered By: Briseyda Sinclair on 08-11-2024 Urea nitrogen [Mass/Vol] 29 mg/dL High 7-18 [facility] Sodium levelOrdered By: Amita Sinclair on 08-11-2024 Sodium [Moles/Vol] 139 mmol/L 136-145 [facility] T4 Free Directon 08-11-2024 T4 FREE DIRECT 0.84 ng/dL Normal 0.76-1.46 [facility] Comment on above: Performed By: #### L 506.0400, L501.37149 ####[facility] [address] [place], [place], [id number] TSH QnOrdered By: Briseyda Lopez hner on 08-11-2024 Thyroid Stimulating Hormone (TSH) 4.190 uIU/mL High 0.358-3.740 [facility] Thyroid Stim Hormone (TSH)on 08-11-2024 TSH 4.190 uIU/mL High 0.358-3.740 [facility] Comment on above: Performed By: #### L 100.0100, L501.9985, L500.4050, L500.4100, L506.1000, L501.5200, L501.9520 ####[facility] [address] [place], [place], [id number] Total proteinOrdered By: Lisset Chaves on 08-11-2024 Protein [Mass/Vol] 7.0 g/dL 6.4-8.2 [facility] Triglycerides measurementOrd ered By: Dalila Chaves on 08-11-2024 Triglyceride [Mass/Vol] 297 mg/dL High <199 [facility] Comment on above: The drugs N-Acetylcy steine and Metamizole may falsely depress this assay.Serum Triglycerides Reference Interval Normal <150 mg/dL Borderline high 150 - 199 mg/dL High 200 - 499 mg/dL Very High > or = 500 mg/dL Very low density lipoprotein (VLDL) cholesterol measurementOrdered By: Dalila Chaves on 08-11-2024 VLDL Cholesterol 59 mg/dL High 5-40 [facility] Vitamin D,25 Hydroxyon 08-11 Vitamin D 25-OH 36.7 ng/mL Normal [facility] Comment on above: Result Comment: Lesa min D 25(OH) Status Range Deficiency <20 ng/mL (50nmol/L) Insufficiency 20 - 30 ng/mL (50 - 75 nmol/L) Sufficiency 30 - 100 ng/mL (75 - 250 nmol/L) Toxicity >100 ng/mL (>250 nmol/L) Performed By: #### L 100.0100, L501.9985, L500.4050, L500.4100, L506.1000, L501.5200, L501.9520 ####[facility] [address] [place], [address] White blood cell (WBC) count Ordered By: Briseyda Sinclair on 08-11-2024 WBC (Bld) [#/Vol] 5.8 10*3/uL 4.4-11.0 [facility] MR/BMS.IMBon 08-10-2024 MR/BMS.IMB Normal [facility] Thin prep Papanicolaou smear with manual screeningOrdered By: Manuel Gilman on 12-03-2023 Thin prep Papanicolaou smear with manual screening 252 mg/dL 74-106 [facility] Comment on above: MANAGEMENT OF PATIEN T CARE PER NURSING PROTOCOL Basophil percentageOrdered B y: Briseyda Sinclair on 11-19-2023 Hemoglobin (Bld) [Mass/Vol] 12.5 g/dL 13.0-16.5 [facility] Hematocrit Auto (Bld) [Volum e fraction]Ordered By: Briseyda Sinclair on 11-19-2023 Hematocrit (Bld) [Volume fraction] 37.6 % 40-54 [facility] Absolute lymphocyte countOrd ered By: Briseyda Dottie on 11-06-2023 Lymphocytes Auto (Unsp spec) [#/Vol] 1.91 10*3/uL 0.83-4.51 [facility] Automated lymphocyte count a s percentage of total leukocytesOrdered By: Briseyda Sinclair on 11-06-2023 Lymphocytes/100 WBC Auto (Unsp spec) 35.9 % 19-41 [facility] Basophil percentageOrdered B y: Briseyda Sinclair on 11-06-2023 Basophils/100 WBC (Bld) 0.6 % 0-1 [facility] Bilirubin [Mass/Vol] 0.40 mg/dL 0.20-1.00 [facility] Comment on above: For patients on eltr ombopag therapy, use of Dimension [place] TBIL is not recommended. Chloride [Moles/Vol] 108 mmol/L 98-107 [facility] Eosinophils/100 WBC (Bld) 6.0 % 0-5 [facility] Glucose [Mass/Vol] 148 mg/dL 74-106 [facility] Comment on above: Fasting Glucose resu lt greater than or equal to 126 mg/dL suggests DIABETES MELLITUS per A.D.A. criteria. Hemoglobin (Bld) [Mass/Vol] 12.4 g/dL 13.0-16.5 [facility] Monocytes/100 WBC (Bld) 12.8 % 0-10 [facility] Neutrophils (Bld) [#/Vol] 2.4 10*3/uL 2.0-7.7 [facility] Neutrophils/100 WBC (Bld) 44.3 % 47-70 [facility] Potassium [Moles/Vol] 4.2 mmol/L 3.5-5.1 [facility] Protein [Mass/Vol] 7.0 g/dL 6.4-8.2 [facility] Sodium [Moles/Vol] 141 mmol/L 136-145 [facility] WBC (Bld) [#/Vol] 5.3 10*3/uL 4.4-11.0 [facility] Basophil percentageOrdered B y: Dalila Chaves on 11-06-2023 Cholesterol [Mass/Vol] 153 mg/dL <200 [facility] Comment on above: <200 mg/dL Desirable 200-240 mg/dL Borderline >240 mg/dL High Risk Triglyceride [Mass/Vol] 132 mg/dL <199 [facility] Comment on above: The drugs N-Acetylcy steine and Metamizole may falsely depress this assay.Serum Triglycerides Reference Interval Normal <150 mg/dL Borderline high 150 - 199 mg/dL High 200 - 499 mg/dL Very High > or = 500 mg/dL Determination of erythrocyte mean corpuscular volume (MCV)Ordered By: Briseyda Sinclair on 11-06-2023 MCV (RBC) [Entitic vol] 91.4 fL 80-94 [facility] Direct bilirubinOrdered By: Briseyda Sinclair on 11-06-2023 Bilirubin.direct [Mass/Vol] 0.11 mg/dL 0.00-0.30 [facility] Erythrocyte distribution wid th ratioOrdered By: Briseyda Sinclair on 11-06-2023 Erythrocyte distribution width (RBC) [Ratio] 13.1 % 11.6-14.6 [facility] Erythrocyte distribution wid th standard deviationOrdered By: Briseyda Sinclair on 11-06-2023 Erythrocyte distribution width (RBC) [Entitic vol] 43.8 fL 35.1-43.9 [facility] Hematocrit Auto (Bld) [Volum e fraction]Ordered By: Briseyda Sinclair on 11-06-2023 Hematocrit (Bld) [Volume fraction] 37.2 % 40-54 [facility] Immature granulocytes/100 WB C Auto (Bld)Ordered By: Briseyda Sinclair on 11-06-2023 Immature granulocytes/100 WBC (Bld) 0.400 % 0.0-0.9 [facility] Comment on above: IG% - Immature Granu locytes (promyelocytes, myelocytes and metamyelocytes) > 1% indicates that a LEFT SHIFT is Present. Laboratory - Chemistry and C hemistry - challengeOrdered By: Briseyda Sinclair on 11-06-2023 Albumin/Globulin [Mass ratio] 1.1 {ratio} 0.9-2.4 [facility] ALP [Catalytic activity/Vol] 77 U/L 45-117 [facility] ALT [Catalytic activity/Vol] 25 U/L 16-61 [facility] CO2 [Moles/Vol] 28.0 mmol/L 21.0-32.0 [facility] Globulin (S) [Mass/Vol] 3.4 g/dL 2.2-4.2 [facility] Urea nitrogen/Creatinine [Mass ratio] 20.2 mg/mg 10-20 [facility] Laboratory - Chemistry and C hemistry - challengeOrdered By: Dalila Chaves on 11-06-2023 Cholesterol in HDL [Mass/Vol] 47 mg/dL >40 [facility] Comment on above: The drugs N-Acetylcy steine and Metamizole may falsely depress this assay. Reference Range HDL <40 mg/dL Low HDL Cholesterol HDL >or= 60 mg/dL High HDL Cholesterol Cholesterol in LDL [Mass/Vol] 80 mg/dL 0-130 [facility] Laboratory - Hematology and Cell countsOrdered By: Briseyda Sinclair on 11-06-2023 MCH (RBC) [Entitic mass] 30.5 pg 27.0-32.0 [facility] MCHC (RBC) [Mass/Vol] 33.3 g/dL 32-36 [facility] Nucleated RBC/100 WBC (Bld) [Ratio] 0 % 0-5 [facility] Platelet mean volume (Bld) [Entitic vol] 10.0 fL 6.2-12.0 [facility] Platelets (Bld) [#/Vol] 289 10*3/uL 150-450 [facility] No Panel InformationOrdered By: Briseyda Sinclair on 11-06-2023 Estimated GFR (MDRD) Amer 81 mL/min >60 [facility] Comment on above: GFR Calc Estimated GFR (MDRD) Non-Af Amer 67 mL/min >60 [facility] Comment on above: Non- GFR Calc Prostate Specific Antigen Screen 2.56 ng/mL 0.00-4.00 [facility] Comment on above: This test was perfor med using the TPSA assay method for theFiltr8 chemistry system. Values obtained with differentassay methods [...] on 11-06-2023 VLDL Cholesterol 26 mg/dL 5-40 [facility] RBC Auto (Bld) [#/Vol]Ordere d By: Briseyda Sinclair on 11-06-2023 RBC (Bld) [#/Vol] 4.07 10*6/uL 4.6-6.2 [facility] Serum or plasma calcium makeda urement (mass/volume)Ordered By: Briseyda Sinclair on 11-06-2023 Calcium [Mass/Vol] 10.4 mg/dL 8.5-10.1 [facility] Serum or plasma creatinine m easurement (mass/volume)Ordered By: Briseyda Sinclair on 11-06-2023 Creatinine [Mass/Vol] 1.14 mg/dL 0.70-1.30 [facility] Comment on above: The validity of the calculated GFR & GFRAA in patients over 70 years has not been determined. Clinical correlation is essential. Serum or plasma thyroid stim ulating hormone (TSH) measurement (units/volume)Ordered By: Briseyda Sinclair on 11-06-2023 TSH Qn 3.00 uIU/mL 0.358-3.74 [facility] Serum or plasma urea nitroge n measurement (mass/volume)Ordered By: Briseyda Sinclair on 11-06-2023 Urea nitrogen [Mass/Vol] 23 mg/dL 7-18 [facility] Thin prep Papanicolaou smear with manual screeningOrdered By: Briseyda Sinclair on 11-06-2023 Thin prep Papanicolaou smear with manual screening 3.6 g/dL 3.2-5.0 [facility] Thin prep Papanicolaou smear with manual screening 11 U/L 15-37 [facility] Thin prep Papanicolaou smear with manual screening 5 5-15 [facility] Absolute lymphocyte countOrd ered By: Sadi Mccyo on 08-24-2023 Lymphocytes Auto (Unsp spec) [#/Vol] 1.66 10*3/uL 0.83-4.51 [facility] Basophil percentageOrdered B y: Sadi Mccoy on 08-24-2023 Basophils/100 WBC (Bld) 0.4 % 0-1 [facility] Chloride [Moles/Vol] 104 mmol/L 98-107 [facility] Eosinophils/100 WBC (Bld) 1.6 % 0-5 [facility] Glucose [Mass/Vol] 224 mg/dL 74-106 [facility] Comment on above: Glucose result great er than or equal to 200 mg/dLsuggests DIABETES MELLITUS per A.D.A. criteria. Neutrophils (Bld) [#/Vol] 7.4 10*3/uL 2.0-7.7 [facility] Neutrophils/100 WBC (Bld) 67.8 % 47-70 [facility] Potassium [Moles/Vol] 4.6 mmol/L 3.5-5.1 [facility] Sodium [Moles/Vol] 137 mmol/L 136-145 [facility] WBC (Bld) [#/Vol] 11.0 10*3/uL 4.4-11.0 [facility] Blood erythrocytes count (nu mber/volume)Ordered By: Sadi Mccoy on 08-24-2023 RBC (Bld) [#/Vol] 4.40 10*6/uL 4.6-6.2 [facility] Blood hemoglobin measurement (mass/volume)Ordered By: Sadi Mccoy on 08-24-2023 Hemoglobin (Bld) [Mass/Vol] 13.9 g/dL 13.0-16.5 [facility] Blood lymphocytes/100 leukoc ytesOrdered By: Sadi Mccoy on 08-24-2023 Lymphocytes/100 WBC (Bld) 15.2 % 19-41 [facility] Blood monocytes/100 leukocyt esOrdered By: Sadi Mccoy on 08-24-2023 Monocytes/100 WBC (Bld) 14.5 % 0-10 [facility] Blood platelet adequacy dete ction by light microscopyOrdered By: Sadi Mccoy on 08-24-2023 Platelets LM Ql (Bld) ADEQUATE ADEQ [facility] Blood platelet mean volumeOr dered By: Sadi Mccoy on 08-24-2023 Platelet mean volume (Bld) [Entitic vol] 9.8 fL 6.2-12.0 [facility] Determination of erythrocyte mean corpuscular volume (MCV)Ordered By: Sadi Mccoy on 08-24-2023 MCV (RBC) [Entitic vol] 91.1 fL 80-94 [facility] Hematocrit Auto (Bld) [Volum e fraction]Ordered By: Sadi Mccoy on 08-24-2023 Hematocrit (Bld) [Volume fraction] 40.1 % 40-54 [facility] Laboratory - Chemistry and C hemistry - challengeOrdered By: Sadi Mccoy on 08-24-2023 CO2 [Moles/Vol] 29.0 mmol/L 21.0-32.0 [facility] Urea nitrogen/Creatinine [Mass ratio] 23.5 mg/mg 10-20 [facility] - Hematology and Cell countsOrdered By: Sadi Mccoy on 08-24-2023 Erythrocyte distribution width (RBC) [Entitic vol] 41.1 fL 35.1-43.9 [facility] Erythrocyte distribution width (RBC) [Ratio] 12.4 % 11.6-14.6 [facility] Immature granulocytes/100 WBC (Bld) 0.500 % 0.0-0.9 [facility] Comment on above: IG% - Immature Granu locytes (promyelocytes, myelocytes and metamyelocytes) > 1% indicates that a LEFT SHIFT is Present. MCH (RBC) [Entitic mass] 31.6 pg 27.0-32.0 [facility] Nucleated RBC/100 WBC (Bld) [Ratio] 0 % 0-5 [facility] MCHC Auto (RBC) [Mass/Vol]Or dered By: Sadi Mccoy on 08-24-2023 MCHC (RBC) [Mass/Vol] 34.7 g/dL 32-36 [facility] No Panel InformationOrdered By: Sadi Mccoy on 08-24-2023 Estimated Creatinine Clearance Calc 51.60 ml/min [facility] Estimated GFR (MDRD) Amer 68 mL/min >60 [facility] Comment on above: GFR Calc Estimated GFR (MDRD) Non-Af Amer 57 mL/min >60 [facility] Comment on above: Non- GFR Calc Platelets bldOrdered By: Misha Mccoy on 08-24-2023 Platelets (Bld) [#/Vol] 223 10*3/uL 150-450 [facility] RBC morphologyOrdered By: Supriya Mccoy on 08-24-2023 RBC morphology finding Nom (Bld) NORM C+C NORMAL NORM C&C [facility] Serum or plasma calcium makeda urement (mass/volume)Ordered By: Sadi Mccoy on 08-24-2023 Calcium [Mass/Vol] 10.1 mg/dL 8.5-10.1 [facility] Serum or plasma creatinine m easurement (mass/volume)Ordered By: Sadi Mccoy on 08-24-2023 Creatinine [Mass/Vol] 1.32 mg/dL 0.70-1.30 [facility] Comment on above: The validity of the calculated GFR & GFRAA in patients over 70 years has not been determined. Clinical correlation is essential. Serum or plasma urea nitroge n measurement (mass/volume)Ordered By: Sadi Mccoy on 08-24-2023 Urea nitrogen [Mass/Vol] 31 mg/dL 7-18 [facility] Thin prep Papanicolaou smear with manual screeningOrdered By: Sadi Mccoy on 08-24-2023 Thin prep Papanicolaou smear with manual screening 4 5-15 [facility] Absolute lymphocyte countOrd ered By: Diogenes Villalpando on 08-20-2023 Lymphocytes Auto (Unsp spec) [#/Vol] 1.88 10*3/uL 0.83-4.51 [facility] Basophil percentageOrdered B y: Diogenes Villalpando on 08-20-2023 Basophil percentage 0 SEEN /hpf 0-5 [facility] Basophils/100 WBC (Bld) 0.2 % 0-1 [facility] Chloride [Moles/Vol] 101 mmol/L 98-107 [facility] Eosinophils/100 WBC (Bld) 2.0 % 0-5 [facility] Glucose [Mass/Vol] 271 mg/dL 74-106 [facility] Comment on above: Glucose result great er than or equal to 200 mg/dLsuggests DIABETES MELLITUS per A.D.A. criteria. Neutrophils (Bld) [#/Vol] 5.0 10*3/uL 2.0-7.7 [facility] Neutrophils/100 WBC (Bld) 62.5 % 47-70 [facility] Potassium [Moles/Vol] 4.4 mmol/L 3.5-5.1 [facility] Comment on above: Slight Hemolysis, Re sult may be falsely increased. Sodium [Moles/Vol] 137 mmol/L 136-145 [facility] WBC (Bld) [#/Vol] 8.0 10*3/uL 4.4-11.0 [facility] Bilirubin Test strip Ql (U)O rdered By: Diogenes Villalpando on 08-20-2023 Bilirubin Ql (U) Negative Negative [facility] Blood erythrocytes count (nu mber/volume)Ordered By: Diogenes Villalpando on 08-20-2023 RBC (Bld) [#/Vol] 4.54 10*6/uL 4.6-6.2 [facility] Blood hemoglobin measurement (mass/volume)Ordered By: Diogenes Villalpando on 08-20-2023 Hemoglobin (Bld) [Mass/Vol] 14.1 g/dL 13.0-16.5 [facility] Blood lymphocytes/100 leukoc ytesOrdered By: Diogenes Villalpando on 08-20-2023 Lymphocytes/100 WBC (Bld) 23.4 % 19-41 [facility] Blood monocytes/100 leukocyt esOrdered By: Diogenes Villalpando on 08-20-2023 Monocytes/100 WBC (Bld) 11.5 % 0-10 [facility] Blood platelet mean volumeOr dered By: Diogenes Villalpando on 08-20-2023 Platelet mean volume (Bld) [Entitic vol] 9.9 fL 6.2-12.0 [facility] Determination of erythrocyte mean corpuscular volume (MCV)Ordered By: Diogenes Villalpando on 08-20-2023 MCV (RBC) [Entitic vol] 91.4 fL 80-94 [facility] Hematocrit Auto (Bld) [Volum e fraction]Ordered By: Diogenes Villalpando on 08-20-2023 Hematocrit (Bld) [Volume fraction] 41.5 % 40-54 [facility] Ketones Test strip Ql (U)Ord ered By: Diogenes Villalpando on 08-20-2023 Ketones Ql (U) Negative Negative [facility] - Chemistry and C hemistry - challengeOrdered By: Diogenes Villalpando on 08-20-2023 CO2 [Moles/Vol] 27.0 mmol/L 21.0-32.0 [facility] Urea nitrogen/Creatinine [Mass ratio] 29.7 mg/mg 10-20 [facility] - Hematology and Cell countsOrdered By: Diogenes Villalpando on 08-20-2023 Erythrocyte distribution width (RBC) [Entitic vol] 40.8 fL 35.1-43.9 [facility] Erythrocyte distribution width (RBC) [Ratio] 12.2 % 11.6-14.6 [facility] Immature granulocytes/100 WBC (Bld) 0.400 % 0.0-0.9 [facility] Comment on above: IG% - Immature Granu locytes (promyelocytes, myelocytes and metamyelocytes) > 1% indicates that a LEFT SHIFT is Present. MCH (RBC) [Entitic mass] 31.1 pg 27.0-32.0 [facility] Nucleated RBC/100 WBC (Bld) [Ratio] 0 % 0-5 [facility] MCHC Auto (RBC) [Mass/Vol]Or dered By: Diogenes Villalpando on 08-20-2023 MCHC (RBC) [Mass/Vol] 34.0 g/dL 32-36 [facility] Mucus LM Ql (Urine sed)Order ed By: Diogenes Villaplando on 08-20-2023 Mucus Ql (Urine sed) 0 SEEN /hpf [facility] Nitrite Test strip Ql (U)Ord ered By: Diogenes Villalpando on 08-20-2023 Nitrite Ql (U) Negative Negative [facility] No Panel InformationOrdered By: Diogenes Villalpando on 08-20-2023 Estimated Creatinine Clearance Calc 49.90 ml/min [facility] Estimated GFR (MDRD) Amer 65 mL/min >60 [facility] Comment on above: GFR Calc Estimated GFR (MDRD) Non-Af Amer 54 mL/min >60 [facility] Comment on above: Non- GFR Calc Platelets bldOrdered By: Simeon Villalpando on 08-20-2023 Platelets (Bld) [#/Vol] 259 10*3/uL 150-450 [facility] Protein Test strip Ql (U)Ord ered By: Diogenes Villalpando on 08-20-2023 Protein Ql (U) 15 mg/dl Negative [facility] Serum or plasma calcium makeda urement (mass/volume)Ordered By: Diogenes Villalpando on 08-20-2023 Calcium [Mass/Vol] 9.5 mg/dL 8.5-10.1 [facility] Serum or plasma creatinine m easurement (mass/volume)Ordered By: Diogenes Villalpando on 08-20-2023 Creatinine [Mass/Vol] 1.38 mg/dL 0.70-1.30 [facility] Comment on above: The validity of the calculated GFR & GFRAA in patients over 70 years has not been determined. Clinical correlation is essential. Serum or plasma urea nitroge n measurement (mass/volume)Ordered By: Diogenes Villalpando on 08-20-2023 Urea nitrogen [Mass/Vol] 41 mg/dL 7-18 [facility] Squamous epithelial cells de tection in urine sediment by light microscopyOrdered By: Diogenes Villalpando on 08-20-2023 Epithelial cells.squamous LM Ql (Urine sed) 0 SEEN /hpf 0-5 [facility] Thin prep Papanicolaou smear with manual screeningOrdered By: Diogenes Villalpando on 08-20-2023 Thin prep Papanicolaou smear with manual screening 9 5-15 [facility] Urine blood detectionOrdered By: Diogenes Villalpando on 08-20-2023 RBC Ql (U) Negative Negative [facility] RBC Ql (U) 0 SEEN /hpf 0-5 [facility] Urine clarityOrdered By: Simeon Villalpando on 08-20-2023 Clarity (U) Clear Clear [facility] Urine color determinationOrd ered By: Diogenes Villalpando on 08-20-2023 Color (U) Yellow Yellow [facility] Urine glucose detectionOrder ed By: Diogenes Villalpando on 08-20-2023 Glucose Ql (U) 1000 mg/dl Normal [facility] Urine leukocyte esterase det ection by dipstickOrdered By: Diogenes Villalpando on 08-20-2023 Leukocyte esterase Test strip Ql (U) Negative Negative [facility] Urine pHOrdered By: Diogenes Villalpando on 08-20-2023 pH (U) 6.0 [pH] 5.0 - 8.0 [facility] Urine sediment bacteria coun t by microscopy (number/high power field)Ordered By: Diogenes Villalpando on 08-20-2023 Bacteria LM.HPF (Urine sed) [#/Area] 0 /[HPF] None Seen [facility] Urine specific gravity measu rementOrdered By: Diogenes Villalpando on 08-20-2023 Specific gravity (U) [Rel density] 1.015 1.002-1.030 [facility] Urobilinogen Auto test strip Ql (U)Ordered By: Diogenes Villalpando on 08-20-2023 Urobilinogen Ql (U) Normal mg/dl Normal [facility] No Panel Informationon 08-13 Influenza Types A,B Rapid (Clinic) Negative [facility] POC SARS CoV-2 Antigen Positive [facility] Basophil percentageOrdered B y: Mc Saleh on 05-23-2023 Chloride [Moles/Vol] 107 mmol/L 98-107 [facility] Cholesterol [Mass/Vol] 125 mg/dL <200 [facility] Comment on above: <200 mg/dL Desirable 200-240 mg/dL Borderline >240 mg/dL High Risk Glucose [Mass/Vol] 191 mg/dL 74-106 [facility] Comment on above: Fasting Glucose resu lt greater than or equal to 126 mg/dL suggests DIABETES MELLITUS per A.D.A. criteria. Potassium [Moles/Vol] 4.2 mmol/L 3.5-5.1 [facility] Sodium [Moles/Vol] 140 mmol/L 136-145 [facility] Triglyceride [Mass/Vol] 228 mg/dL <199 [facility] Comment on above: The drugs N-Acetylcy steine and Metamizole may falsely depress this assay.Serum Triglycerides Reference Interval Normal <150 mg/dL Borderline high 150 - 199 mg/dL High 200 - 499 mg/dL Very High > or = 500 mg/dL Laboratory - Chemistry and C hemistry - challengeOrdered By: Mc Saleh on 05-23-2023 ALT [Catalytic activity/Vol] 29 U/L 16-61 [facility] CK [Catalytic activity/Vol] 81 U/L 39-308 [facility] CO2 [Moles/Vol] 27.0 mmol/L 21.0-32.0 [facility] Urea nitrogen/Creatinine [Mass ratio] 22.2 mg/mg 10-20 [facility] No Panel InformationOrdered By: Mc Saleh on 05-23-2023 Estimated GFR (MDRD) Amer 79 mL/min >60 [facility] Comment on above: GFR Calc Estimated GFR (MDRD) Non-Af Amer 65 mL/min >60 [facility] Comment on above: Non- GFR Calc Serum or plasma calcium makeda urement (mass/volume)Ordered By: Mc Saleh on 05-23-2023 Calcium [Mass/Vol] 9.0 mg/dL 8.5-10.1 [facility] Serum or plasma cholesterol in HDL measurement (mass/volume)Ordered By: Mc Saleh on 05-23-2023 Cholesterol in HDL [Mass/Vol] 39 mg/dL >40 [facility] Comment on above: The drugs N-Acetylcy steine and Metamizole may falsely depress this assay. Reference Range HDL <40 mg/dL Low HDL Cholesterol HDL >or= 60 mg/dL High HDL Cholesterol Serum or plasma cholesterol in VLDL measurement (mass/volume)Ordered By: Mc Saleh on 05-23-2023 Cholesterol in VLDL [Mass/Vol] 46 mg/dL 5-40 [facility] Serum or plasma creatinine m easurement (mass/volume)Ordered By: Mc Saleh on 05-23-2023 Creatinine [Mass/Vol] 1.17 mg/dL 0.70-1.30 [facility] Comment on above: The validity of the calculated GFR & GFRAA in patients over 70 years has not been determined. Clinical correlation is essential. Serum or plasma low density lipoprotein (LDL) cholesterol measurement (mass/volume)Ordered By: Mc Saleh on 05-23-2023 Cholesterol in LDL [Mass/Vol] 40 mg/dL 0-130 [facility] Serum or plasma urea nitroge n measurement (mass/volume)Ordered By: Mc Saleh on 05-23-2023 Urea nitrogen [Mass/Vol] 26 mg/dL 7-18 [facility] Thin prep Papanicolaou smear with manual screeningOrdered By: Mc Saleh on 05-23-2023 Thin prep Papanicolaou smear with manual screening 13 U/L 15-37 [facility] Thin prep Papanicolaou smear with manual screening 6 5-15 [facility] Absolute lymphocyte countOrd ered By: Briseyda Sinclair on 04-03-2023 Lymphocytes Auto (Unsp spec) [#/Vol] 1.71 10*3/uL 0.83-4.51 [facility] Basophil percentageOrdered B y: Briseyda Sinclair on 04-03-2023 Basophils/100 WBC (Bld) 0.2 % 0-1 [facility] Bilirubin [Mass/Vol] 0.40 mg/dL 0.20-1.00 [facility] Comment on above: For patients on eltr ombopag therapy, use of Dimension [place] TBIL is not recommended. Chloride [Moles/Vol] 104 mmol/L 98-107 [facility] Eosinophils/100 WBC (Bld) 4.7 % 0-5 [facility] Glucose [Mass/Vol] 345 mg/dL 74-106 [facility] Comment on above: Glucose result great er than or equal to 200 mg/dLsuggests DIABETES MELLITUS per A.D.A. criteria. Neutrophils (Bld) [#/Vol] 2.3 10*3/uL 2.0-7.7 [facility] Neutrophils/100 WBC (Bld) 48.3 % 47-70 [facility] Potassium [Moles/Vol] 4.6 mmol/L 3.5-5.1 [facility] Protein [Mass/Vol] 6.7 g/dL 6.4-8.2 [facility] Sodium [Moles/Vol] 138 mmol/L 136-145 [facility] WBC (Bld) [#/Vol] 4.9 10*3/uL 4.4-11.0 [facility] Blood erythrocytes count (nu mber/volume)Ordered By: Briseyda Sinclair on 04-03-2023 RBC (Bld) [#/Vol] 4.11 10*6/uL 4.6-6.2 [facility] Blood hemoglobin measurement (mass/volume)Ordered By: Briseyda Sinclair on 04-03-2023 Hemoglobin (Bld) [Mass/Vol] 13.0 g/dL 13.0-16.5 [facility] Blood lymphocytes/100 leukoc ytesOrdered By: Briseyda Sinclair on 04-03-2023 Lymphocytes/100 WBC (Bld) 35.3 % 19-41 [facility] Blood monocytes/100 leukocyt esOrdered By: Briseyda Sinclair on 04-03-2023 Monocytes/100 WBC (Bld) 11.3 % 0-10 [facility] Blood platelet mean volumeOr dered By: Briseyda Sinclair on 04-03-2023 Platelet mean volume (Bld) [Entitic vol] 9.2 fL 6.2-12.0 [facility] Determination of erythrocyte mean corpuscular volume (MCV)Ordered By: Briseyda Sinclair on 04-03-2023 MCV (RBC) [Entitic vol] 91.5 fL 80-94 [facility] Hematocrit Auto (Bld) [Volum e fraction]Ordered By: Briseyda Sinclair on 04-03-2023 Hematocrit (Bld) [Volume fraction] 37.6 % 40-54 [facility] - Chemistry and C hemistry - challengeOrdered By: Briseyda Sinclair on 04-03-2023 ALP [Catalytic activity/Vol] 62 U/L 45-117 [facility] ALT [Catalytic activity/Vol] 35 U/L 16-61 [facility] CO2 [Moles/Vol] 28.0 mmol/L 21.0-32.0 [facility] Globulin (S) [Mass/Vol] 3.1 g/dL 2.2-4.2 [facility] Urea nitrogen/Creatinine [Mass ratio] 16.2 mg/mg 10-20 [facility] - Hematology and Cell countsOrdered By: Briseyda Sinclair on 04-03-2023 Erythrocyte distribution width (RBC) [Entitic vol] 41.0 fL 35.1-43.9 [facility] Erythrocyte distribution width (RBC) [Ratio] 12.3 % 11.6-14.6 [facility] Immature granulocytes/100 WBC (Bld) 0.200 % 0.0-0.9 [facility] Comment on above: IG% - Immature Granu locytes (promyelocytes, myelocytes and metamyelocytes) > 1% indicates that a LEFT SHIFT is Present. MCH (RBC) [Entitic mass] 31.6 pg 27.0-32.0 [facility] Nucleated RBC/100 WBC (Bld) [Ratio] 0 % 0-5 [facility] MCHC Auto (RBC) [Mass/Vol]Or dered By: Briseyda Sinclair on 04-03-2023 MCHC (RBC) [Mass/Vol] 34.6 g/dL 32-36 [facility] No Panel InformationOrdered By: Briseyda Sinclair on 04-03-2023 Estimated GFR (MDRD) Amer 63 mL/min >60 [facility] Comment on above: GFR Calc Estimated GFR (MDRD) Non-Af Amer 52 mL/min >60 [facility] Comment on above: Non- GFR Calc Vitamin [...] 04-03-2023 Platelets (Bld) [#/Vol] 233 10*3/uL 150-450 [facility] Serum or plasma albumin makeda urement (mass/volume)Ordered By: Briseyda Sinclair on 04-03-2023 Albumin [Mass/Vol] 3.6 g/dL 3.2-5.0 [facility] Serum or plasma albumin/glob ulin mass ratioOrdered By: Briseyda Sinclair on 04-03-2023 Albumin/Globulin [Mass ratio] 1.2 {ratio} 0.9-2.4 [facility] Serum or plasma calcium makeda urement (mass/volume)Ordered By: Briseyda Sinclair on 04-03-2023 Calcium [Mass/Vol] 9.1 mg/dL 8.5-10.1 [facility] Serum or plasma creatinine m easurement (mass/volume)Ordered By: Briseyda Sinclair on 04-03-2023 Creatinine [Mass/Vol] 1.42 mg/dL 0.70-1.30 [facility] Comment on above: The validity of the calculated GFR & GFRAA in patients over 70 years has not been determined. Clinical correlation is essential. Serum or plasma urea nitroge n measurement (mass/volume)Ordered By: Briseyda Sinclair on 04-03-2023 Urea nitrogen [Mass/Vol] 23 mg/dL 7-18 [facility] Thin prep Papanicolaou smear with manual screeningOrdered By: Briseyda Sinclair on 04-03-2023 Thin prep Papanicolaou smear with manual screening 15 U/L 15- [facility] Thin prep Papanicolaou smear with manual screening 6 5-15 [facility] - Hematology and Cell countson 04-01-2023 HbA1c (Bld) [Mass fraction] 10.7 % 4.2-6.3 [facility] Absolute lymphocyte countOrd ered By: Dr. Sinclair on 09-25-2022 Lymphocytes Auto (Unsp spec) [#/Vol] 1.60 10*3/uL 0.83-4.51 [facility] Basophil percentageOrdered B y: Dr. Sinclair on 09-25-2022 Basophils/100 WBC (Bld) 0.4 % 0-1 [facility] Bilirubin [Mass/Vol] 0.40 mg/dL 0.20-1.00 [facility] Comment on above: For patients on eltr ombopag therapy, use of Dimension [place] TBIL is not recommended. Chloride [Moles/Vol] 106 mmol/L 98-107 [facility] Cholesterol [Mass/Vol] 165 mg/dL <200 [facility] Comment on above: <200 mg/dL Desirable 200-240 mg/dL Borderline >240 mg/dL High Risk Eosinophils/100 WBC (Bld) 5.2 % 0-5 [facility] Glucose [Mass/Vol] 219 mg/dL 74-106 [facility] Comment on above: Glucose result great er than or equal to 200 mg/dLsuggests DIABETES MELLITUS per A.D.A. criteria. Neutrophils (Bld) [#/Vol] 2.1 10*3/uL 2.0-7.7 [facility] Neutrophils/100 WBC (Bld) 46.9 % 47-70 [facility] Potassium [Moles/Vol] 4.2 mmol/L 3.5-5.1 [facility] Protein [Mass/Vol] 7.2 g/dL 6.4-8.2 [facility] Sodium [Moles/Vol] 139 mmol/L 136-145 [facility] Triglyceride [Mass/Vol] 221 mg/dL <199 [facility] Comment on above: The drugs N-Acetylcy steine and Metamizole may falsely depress this assay.Serum Triglycerides Reference Interval Normal <150 mg/dL Borderline high 150 - 199 mg/dL High 200 - 499 mg/dL Very High > or = 500 mg/dL WBC (Bld) [#/Vol] 4.5 10*3/uL 4.4-11.0 [facility] Blood erythrocytes count (nu mber/volume)Ordered By: Dr. Sinclair on 09-25-2022 RBC (Bld) [#/Vol] 4.45 10*6/uL 4.6-6.2 [facility] Blood hemoglobin measurement (mass/volume)Ordered By: Dr. Sinclair on 09-25-2022 Hemoglobin (Bld) [Mass/Vol] 13.8 g/dL 13.0-16.5 [facility] Blood lymphocytes/100 leukoc ytesOrdered By: Dr. Sinclair on 09-25-2022 Lymphocytes/100 WBC (Bld) 36.0 % 19-41 [facility] Blood monocytes/100 leukocyt esOrdered By: Dr. Sinclair on 09-25-2022 Monocytes/100 WBC (Bld) 11.5 % 0-10 [facility] Blood platelet mean volumeOr dered By: Dr. Sinclair on 09-25-2022 Platelet mean volume (Bld) [Entitic vol] 10.3 fL 6.2-12.0 [facility] Determination of erythrocyte mean corpuscular volume (MCV)Ordered By: Dr. Sinclair on 09-25-2022 MCV (RBC) [Entitic vol] 92.1 fL 80-94 [facility] Hematocrit Auto (Bld) [Volum e fraction]Ordered By: Dr. Sinclair on 09-25-2022 Hematocrit (Bld) [Volume fraction] 41.0 % 40-54 [facility] - Chemistry and C hemistry - challengeOrdered By: Dr. Sinclair on 09-25-2022 ALP [Catalytic activity/Vol] 55 U/L 45-117 [facility] ALT [Catalytic activity/Vol] 34 U/L 16-61 [facility] CO2 [Moles/Vol] 28.0 mmol/L 21.0-32.0 [facility] Globulin (S) [Mass/Vol] 3.3 g/dL 2.2-4.2 [facility] Urea nitrogen/Creatinine [Mass ratio] 23.0 mg/mg 10-20 [facility] - Hematology and Cell countsOrdered By: Dr. Sinclair on 09-25-2022 Erythrocyte distribution width (RBC) [Entitic vol] 42.1 fL 35.1-43.9 [facility] Erythrocyte distribution width (RBC) [Ratio] 12.5 % 11.6-14.6 [facility] Immature granulocytes/100 WBC (Bld) 0.000 % 0.0-0.9 [facility] Comment on above: IG% - Immature Granu locytes (promyelocytes, myelocytes and metamyelocytes) > 1% indicates that a LEFT SHIFT is Present. MCH (RBC) [Entitic mass] 31.0 pg 27.0-32.0 [facility] Nucleated RBC/100 WBC (Bld) [Ratio] 0.4 % 0-5 [facility] MCHC Auto (RBC) [Mass/Vol]Or dered By: Dr. Sinclair on 09-25-2022 MCHC (RBC) [Mass/Vol] 33.7 g/dL 32-36 [facility] No Panel InformationOrdered By: Dr. Sinclair on 09-25-2022 Estimated GFR (MDRD) Amer 82 mL/min >60 [facility] Comment on above: GFR Calc Estimated GFR (MDRD) Non-Af Amer 68 mL/min >60 [facility] Comment on above: Non- GFR Calc Prostate Specific Antigen Screen 1.97 ng/mL 0.00-4.00 [facility] Comment on above: This test was perfor med using the TPSA assay method for theFiltr8 chemistry system. Values obtained with differentassay methods cannot be used interchangably.When changing PSA assays in the course of monitoring apatient, additional sequential testing should be carriedout to confirm baseline values. Thyroid Stimulating Hormone (TSH) 3.41 uIU/mL 0.358-3.74 [facility] Vitamin D 25-Hydroxy 37.2 ng/mL [facility] Comment on above: Vitamin D 25(OH) Sta tus Range Deficiency <20 ng/mL (50nmol/L) Insufficiency 20 - 30 ng/mL (50 - 75 nmol/L) Sufficiency 30 - 100 ng/mL (75 - 250 nmol/L) Toxicity >100 ng/mL (>250 nmol/L) Platelets bldOrdered By: Dr. Sinclair on 09-25-2022 Platelets (Bld) [#/Vol] 244 10*3/uL 150-450 [facility] Serum or plasma albumin makeda urement (mass/volume)Ordered By: Dr. Sinclair on 09-25-2022 Albumin [Mass/Vol] 3.9 g/dL 3.2-5.0 [facility] Serum or plasma albumin/glob ulin mass ratioOrdered By: Dr. Sinclair on 09-25-2022 Albumin/Globulin [Mass ratio] 1.2 {ratio} 0.9-2.4 [facility] Serum or plasma calcium makeda urement (mass/volume)Ordered By: Dr. Sinclair on 09-25-2022 Calcium [Mass/Vol] 9.3 mg/dL 8.5-10.1 [facility] Serum or plasma cholesterol in HDL measurement (mass/volume)Ordered By: Dr. Sinclair on 09-25-2022 Cholesterol in HDL [Mass/Vol] 40 mg/dL >40 [facility] Comment on above: The drugs N-Acetylcy steine and Metamizole may falsely depress this assay. Reference Range HDL <40 mg/dL Low HDL Cholesterol HDL >or= 60 mg/dL High HDL Cholesterol Serum or plasma cholesterol in VLDL measurement (mass/volume)Ordered By: Dr. Sinclair on 09-25-2022 Cholesterol in VLDL [Mass/Vol] 44 mg/dL 5-40 [facility] Serum or plasma creatinine m easurement (mass/volume)Ordered By: Dr. Sinclair on 09-25-2022 Creatinine [Mass/Vol] 1.13 mg/dL 0.70-1.30 [facility] Comment on above: The validity of the calculated GFR & GFRAA in patients over 70 years has not been determined. Clinical correlation is essential. Serum or plasma low density lipoprotein (LDL) cholesterol measurement (mass/volume)Ordered By: Dr. Sinclair on 09-25-2022 Cholesterol in LDL [Mass/Vol] 81 mg/dL 0-130 [facility] Serum or plasma urea nitroge n measurement (mass/volume)Ordered By: Dr. Sinclair on 09-25-2022 Urea nitrogen [Mass/Vol] 26 mg/dL 7-18 [facility] Thin prep Papanicolaou smear with manual screeningOrdered By: Dr. Sinclair on 09-25-2022 Thin prep Papanicolaou smear with manual screening 13 U/L 15-37 [facility] Thin prep Papanicolaou smear with manual screening 5 5-15 [facility] - Hematology and Cell countson 09-24-2022 HbA1c (Bld) [Mass fraction] 11.4 % 4.2-6.3 [facility] Basophil percentageon 2021 Chloride [Moles/Vol] 102 mmol/L 98-107 [facility] Work Phone: Glucose [Mass/Vol] 394 mg/dL 74-106 [facility] Work Phone: Comment on above: Glucose result great er than or equal to 200 mg/dLsuggests DIABETES MELLITUS per A.D.A. criteria. Potassium [Moles/Vol] 4.5 mmol/L 3.5-5.1 [facility] Work Phone: Sodium [Moles/Vol] 136 mmol/L 136-145 [facility] Work Phone: Laboratory - Chemistry and C hemistry - challengeon 06-04-2022 CO2 [Moles/Vol] 26.0 mmol/L 21.0-32.0 [facility] Work Phone: Urea nitrogen/Creatinine [Mass ratio] 21.4 mg/mg 10-20 [facility] Work Phone: No Panel Informationon 06-04 Estimated GFR (MDRD) Amer 64 mL/min >60 [facility] Work Phone: Comment on above: GFR Calc Estimated GFR (MDRD) Non-Af Amer 53 mL/min >60 [facility] Work Phone: Comment on above: Non- GFR Calc Serum or plasma calcium makeda urement (mass/volume)on 06-04-2022 Calcium [Mass/Vol] 9.3 mg/dL 8.5-10.1 [facility] Work Phone: Serum or plasma creatinine m easurement (mass/volume)on 06-04-2022 Creatinine [Mass/Vol] 1.40 mg/dL 0.70-1.30 [facility] Work Phone: Comment on above: The validity of the calculated GFR & GFRAA in patients over 70 years has not been determined. Clinical correlation is essential. Serum or plasma urea nitroge n measurement (mass/volume)on 06-04-2022 Urea nitrogen [Mass/Vol] 30 mg/dL 7-18 [facility] Work Phone: Thin prep Papanicolaou smear with manual screeningon 06-04-2022 Thin prep Papanicolaou smear with manual screening 8 5-15 [facility] Work Phone: Basophil percentageon 2021 Chloride [Moles/Vol] 102 mmol/L 98-107 [facility] Work Phone: [phone] Glucose [Mass/Vol] 334 mg/dL 74-106 [facility] Work Phone: Comment on above: Glucose result great er than or equal to 200 mg/dLsuggests DIABETES MELLITUS per A.D.A. criteria. Potassium [Moles/Vol] 4.8 mmol/L 3.5-5.1 [facility] Work Phone: Sodium [Moles/Vol] 136 mmol/L 136-145 [facility] Work Phone: WBC (Bld) [#/Vol] 5.6 10*3/uL 4.4-11.0 [facility] Work Phone: Blood erythrocytes count (nu mber/volume)on 05-24-2022 RBC (Bld) [#/Vol] 4.22 10*6/uL 4.6-6.2 [facility] Work Phone: Blood hemoglobin measurement (mass/volume)on 05-24-2022 Hemoglobin (Bld) [Mass/Vol] 13.4 g/dL 13.0-16.5 [facility] Work Phone: Blood platelet mean volumeon 05-24-2022 Platelet mean volume (Bld) [Entitic vol] 10.3 fL 6.2-12.0 [facility] Work Phone: Determination of erythrocyte mean corpuscular volume (MCV)on 05-24-2022 MCV (RBC) [Entitic vol] 92.4 fL 80-94 [facility] Work Phone: Hematocrit Auto (Bld) [Volum e fraction]on 05-24-2022 Hematocrit (Bld) [Volume fraction] 39.0 % 40-54 [facility] Work Phone: INR in Blood by Coagulation assayon 05-24-2022 INR Coag (Bld) [Relative time] 0.9 {INR} [facility] Work Phone: Laboratory - Chemistry and C hemistry - challengeon 05-24-2022 CO2 [Moles/Vol] 25.0 mmol/L 21.0-32.0 [facility] Work Phone: Urea nitrogen/Creatinine [Mass ratio] 25.8 mg/mg 10-20 [facility] Work Phone: Laboratory - Coagulationon 0 05-24-2022 aPTT Coag (Bld) [Time] 25.4 s 24.1-36.2 [facility] Work Phone: PT Coag (PPP) [Time] 11.7 s 11.7-14.9 [facility] Work Phone: Laboratory - Hematology and Cell countson 05-24-2022 Erythrocyte distribution width (RBC) [Entitic vol] 41.1 fL 35.1-43.9 [facility] Work Phone: Erythrocyte distribution width (RBC) [Ratio] 12.2 % 11.6-14.6 [facility] Work Phone: [phone] MCH (RBC) [Entitic mass] 31.8 pg 27.0-32.0 [facility] Work Phone: MCHC Auto (RBC) [Mass/Vol]on 05-24-2022 MCHC (RBC) [Mass/Vol] 34.4 g/dL 32-36 [facility] Work Phone: No Panel Informationon 05-24 Estimated GFR (MDRD) Amer 44 mL/min >60 [facility] Work Phone: Comment on above: GFR Calc Estimated GFR (MDRD) Non-Af Amer 36 mL/min >60 [facility] Work Phone: Comment on above: Non- GFR Calc Platelets bldon 05-24-2022 Platelets (Bld) [#/Vol] 251 10*3/uL 150-450 [facility] Work Phone: Serum or plasma calcium makeda urement (mass/volume)on 05-24-2022 Calcium [Mass/Vol] 9.6 mg/dL 8.5-10.1 [facility] Work Phone: Serum or plasma creatinine m easurement (mass/volume)on 05-24-2022 Creatinine [Mass/Vol] 1.94 mg/dL 0.70-1.30 [facility] Work Phone: Comment on above: The validity of the calculated GFR & GFRAA in patients over 70 years has not been determined. Clinical correlation is essential. Serum or plasma urea nitroge n measurement (mass/volume)on 05-24-2022 Urea nitrogen [Mass/Vol] 50 mg/dL 7-18 [facility] Work Phone: Thin prep Papanicolaou smear with manual screeningon 05-24-2022 Thin prep Papanicolaou smear with manual screening 9 5-15 [facility] Work Phone: Laboratory - Hematology and Cell countson 03-21-2022 HbA1c (Bld) [Mass fraction] 10.0 % 4.2-6.3 [facility] Work Phone: CNTHERAPYon 02-09-2022 CNTHERAPY OT/PT/Speech Visit (PTWS) COLEMAN DAVIES ([id number]) 1950 M Date Time Provider Department 02/09/22 9:30 AM MARIA ELENA ZHONG Date Time Provider Department Center 02/09/2022 9:30 AM [id number] ELENA ZHONG [facility] Reason for Visit: PT Discharge [752] 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] Allergies As of Date: 02/09/2022 (Not on File) Date Reviewed: Never Reviewed Normal [facility] CNTHERAPYon 02-02-2022 CNTHERAPY OT/PT/Speech Visit (PTWS) COLEMAN DAVIES ([id number]) 1950 M Date Time Provider Department 02/02/22 9:30 AM MARIA ELENA ZHONG Date Time Provider Department Center 02/02/2022 9:30 AM [id number] ELENA HACKETT Reason for Visit: PT Progress Note [1596] 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] Allergies As of Date: 02/02/2022 (Not on File) Date Reviewed: Never Reviewed Letter Text Normal [facility] CNTHERAPYon 01-26-2022 CNTHERAPY OT/PT/Speech Visit (PTWS) COLEMAN DAVIES ([id number]) 1950 M Date Time Provider Department 01/26/22 8:45 AM MARIA ELENA ZHONG Date Time Provider Department Center 01/26/2022 8:45 AM [id number] ELENA CHIU Reason for Visit: Physical Therapy [503] 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] Allergies As of Date: 01/26/2022 (Not on File) Date Reviewed: Never Reviewed Normal [facility] CNTHERAPYon 01-19-2022 CNTHERAPY OT/PT/Speech Visit (PTWS) COLEMAN DAVIES ([id number]) 1950 M Date Time Provider Department 01/19/22 9:30 AM MARIA ELENA ZHONG Date Time Provider Department Center 01/19/2022 9:30 AM [id number] ELENA ZHONG [facility] Reason for Visit: PT Progress Note [1596] 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] Allergies As of Date: 01/19/2022 (Not on File) Date Reviewed: Never Reviewed Normal [facility] Absolute lymphocyte counton 01-08-2022 Lymphocytes Auto (Unsp spec) [#/Vol] 2.13 10*3/uL 0.83-4.51 [facility] Work Phone: Basophil percentageon 2021 Basophil percentage 0 SEEN /hpf [facility] Work Phone: Basophils/100 WBC (Bld) 0.1 % 0-1 [facility] Work Phone: Chloride [Moles/Vol] 101 mmol/L 98-107 [facility] Work Phone: Eosinophils/100 WBC (Bld) 0.5 % 0-5 [facility] Work Phone: Glucose [Mass/Vol] 404 mg/dL 74-106 [facility] Work Phone: Comment on above: Glucose result great er than or equal to 200 mg/dLsuggests DIABETES MELLITUS per A.D.A. criteria. Neutrophils (Bld) [#/Vol] 10.3 10*3/uL 2.0-7.7 [facility] Work Phone: Neutrophils/100 WBC (Bld) 76.7 % 47-70 [facility] Work Phone: Potassium [Moles/Vol] 5.3 mmol/L 3.5-5.1 [facility] Work Phone: Comment on above: Slight Hemolysis, Re sult may be falsely increased. Sodium [Moles/Vol] 133 mmol/L 136-145 [facility] Work Phone: WBC (Bld) [#/Vol] 13.5 10*3/uL 4.4-11.0 [facility] Work Phone: Bilirubin Test strip Ql (U)o n 01-08-2022 Bilirubin Ql (U) Negative Negative [facility] Work Phone: Blood erythrocytes count (nu mber/volume)on 01-08-2022 RBC (Bld) [#/Vol] 5.30 10*6/uL 4.6-6.2 [facility] Work Phone: Blood hemoglobin measurement (mass/volume)on 01-08-2022 Hemoglobin (Bld) [Mass/Vol] 16.5 g/dL 13.0-16.5 [facility] Work Phone: Blood lymphocytes/100 leukoc yteson 01-08-2022 Lymphocytes/100 WBC (Bld) 15.8 % 19-41 [facility] Work Phone: Blood monocytes/100 leukocyt eson 01-08-2022 Monocytes/100 WBC (Bld) 6.2 % 0-10 [facility] Work Phone: [phone] Blood platelet mean volumeon 01-08-2022 Platelet mean volume (Bld) [Entitic vol] 10.7 fL 6.2-12.0 [facility] Work Phone: [phone] Determination of erythrocyte mean corpuscular volume (MCV)on 01-08-2022 MCV (RBC) [Entitic vol] 90.0 fL 80-94 [facility] Work Phone: [phone] Glucose Glucometer (BldC) [M ass/Vol]on 01-08-2022 Glucose [Mass/Vol] 273 mg/dL 74-106 [facility] Work Phone: [phone] Comment on above: MANAGEMENT OF PATIEN T CARE PER NURSING PROTOCOL Hematocrit Auto (Bld) [Volum e fraction]on 01-08-2022 Hematocrit (Bld) [Volume fraction] 47.7 % 40-54 [facility] Work Phone: [phone] Ketones Test strip Ql (U)on 01-08-2022 Ketones Ql (U) Negative Negative [facility] Work Phone: [phone] Laboratory - Chemistry and C hemistry - challengeon 01-08-2022 CO2 [Moles/Vol] 22.0 mmol/L 21.0-32.0 [facility] Work Phone: [phone] Urea nitrogen/Creatinine [Mass ratio] 38.4 mg/mg 10-20 [facility] Work Phone: [phone] Laboratory - Hematology and Cell countson 01-08-2022 Erythrocyte distribution width (RBC) [Entitic vol] 41.6 fL 35.1-43.9 [facility] Work Phone: [phone] Erythrocyte distribution width (RBC) [Ratio] 12.5 % 11.6-14.6 [facility] Work Phone: [phone] Immature granulocytes/100 WBC (Bld) 0.700 % 0.0-0.9 [facility] Work Phone: [phone] Comment on above: IG% - Immature Granu locytes (promyelocytes, myelocytes and metamyelocytes) > 1% indicates that a LEFT SHIFT is Present. MCH (RBC) [Entitic mass] 31.1 pg 27.0-32.0 [facility] Work Phone: [phone] Nucleated RBC/100 WBC (Bld) [Ratio] 0 % 0-5 [facility] Work Phone: [phone] MCHC Auto (RBC) [Mass/Vol]on 01-08-2022 MCHC (RBC) [Mass/Vol] 34.6 g/dL 32-36 [facility] Work Phone: [phone] Mucus LM Ql (Urine sed)on Mucus Ql (Urine sed) 0 SEEN /hpf [facility] Work Phone: [phone] Nitrite Test strip Ql (U)on 01-08-2022 Nitrite Ql (U) Negative Negative [facility] Work Phone: [phone] Panel Informationon 01-08 Estimated Creatinine Clearance Calc 45.23 ml/min [facility] Work Phone: [phone] Estimated GFR (MDRD) Amer 61 mL/min >60 [facility] Work Phone: [phone] Comment on above: GFR Calc Estimated GFR (MDRD) Non-Af Amer 51 mL/min >60 [facility] Work Phone: [phone] Comment on above: Non- GFR Calc Platelets bldon 01-08-2022 Platelets (Bld) [#/Vol] 329 10*3/uL 150-450 [facility] Work Phone: [phone] Protein Test strip Ql (U)on 01-08-2022 Protein Ql (U) 15 mg/dl Negative [facility] Work Phone: [phone] Serum or plasma calcium makeda urement (mass/volume)on 01-08-2022 Calcium [Mass/Vol] 10.6 mg/dL 8.5-10.1 [facility] Work Phone: [phone] Serum or plasma creatinine m easurement (mass/volume)on 01-08-2022 Creatinine [Mass/Vol] 1.46 mg/dL 0.70-1.30 [facility] Work Phone: Comment on above: The validity of the calculated GFR & GFRAA in patients over 70 years has not been determined. Clinical correlation is essential. Serum or plasma urea nitroge n measurement (mass/volume)on 01-08-2022 Urea nitrogen [Mass/Vol] 56 mg/dL 7-18 [facility] Work Phone: Squamous epithelial cells de tection in urine sediment by light microscopyon 01-08-2022 Epithelial cells.squamous LM Ql (Urine sed) 0 SEEN /hpf [facility] Work Phone: Thin prep Papanicolaou smear with manual screeningon 01-08-2022 Thin prep Papanicolaou smear with manual screening 10 5-15 [facility] Work Phone: Urine blood detectionon 12-16 RBC Ql (U) Negative Negative [facility] Work Phone: RBC Ql (U) 0 SEEN /hpf [facility] Work Phone: Urine clarityon 01-08-2022 Clarity (U) Clear Clear [facility] Work Phone: Urine color determinationon 01-08-2022 Color (U) Yellow Yellow [facility] Work Phone: Urine glucose detectionon Glucose Ql (U) 1000 mg/dl Normal [facility] Work Phone: Urine leukocyte esterase det ection by dipstickon 01-08-2022 Leukocyte esterase Test strip Ql (U) Negative Negative [facility] Work Phone: Urine pHon 01-08-2022 pH (U) 6.0 [pH] [facility] Work Phone: Urine sediment bacteria coun t by microscopy (number/high power field)on 01-08-2022 Bacteria LM.HPF (Urine sed) [#/Area] 0 /[HPF] None Seen [facility] Work Phone: Urine specific gravity measu rementon 01-08-2022 Specific gravity (U) [Rel density] 1.015 [facility] Work Phone: Urobilinogen Auto test strip Ql (U)on 01-08-2022 Urobilinogen Ql (U) Normal mg/dl Normal [facility] Work Phone: Absolute lymphocyte counton 01-04-2022 Lymphocytes Auto (Unsp spec) [#/Vol] 1.29 10*3/uL 0.83-4.51 [facility] Work Phone: Basophil percentageon 2021 Basophils/100 WBC (Bld) 0.1 % 0-1 [facility] Work Phone: Chloride [Moles/Vol] 103 mmol/L 98-107 [facility] Work Phone: Eosinophils/100 WBC (Bld) 0.1 % 0-5 [facility] Work Phone: Glucose [Mass/Vol] 228 mg/dL 74-106 [facility] Work Phone: Comment on above: Glucose result great er than or equal to 200 mg/dLsuggests DIABETES MELLITUS per A.D.A. criteria. Neutrophils (Bld) [#/Vol] 10.0 10*3/uL 2.0-7.7 [facility] Work Phone: Neutrophils/100 WBC (Bld) 78.8 % 47-70 [facility] Work Phone: Potassium [Moles/Vol] 4.3 mmol/L 3.5-5.1 [facility] Work Phone: Sodium [Moles/Vol] 137 mmol/L 136-145 [facility] Work Phone: WBC (Bld) [#/Vol] 12.7 10*3/uL 4.4-11.0 [facility] Work Phone: Blood erythrocytes count (nu mber/volume)on 01-04-2022 RBC (Bld) [#/Vol] 5.10 10*6/uL 4.6-6.2 [facility] Work Phone: Blood hemoglobin measurement (mass/volume)on 01-04-2022 Hemoglobin (Bld) [Mass/Vol] 15.7 g/dL 13.0-16.5 [facility] Work Phone: Blood lymphocytes/100 leukoc yteson 01-04-2022 Lymphocytes/100 WBC (Bld) 10.1 % 19-41 [facility] Work Phone: Blood monocytes/100 leukocyt eson 01-04-2022 Monocytes/100 WBC (Bld) 10.3 % 0-10 [facility] Work Phone: Blood platelet mean volumeon 01-04-2022 Platelet mean volume (Bld) [Entitic vol] 10.1 fL 6.2-12.0 [facility] Work Phone: Determination of erythrocyte mean corpuscular volume (MCV)on 01-04-2022 MCV (RBC) [Entitic vol] 89.4 fL 80-94 [facility] Work Phone: Glucose Glucometer (BldC) [M ass/Vol]on 01-04-2022 Glucose [Mass/Vol] 433 mg/dL 74-106 [facility] Work Phone: Comment on above: MANAGEMENT OF PATIEN T CARE PER NURSING PROTOCOL Hematocrit Auto (Bld) [Volum e fraction]on 01-04-2022 Hematocrit (Bld) [Volume fraction] 45.6 % 40-54 [facility] Work Phone: Laboratory - Chemistry and C hemistry - challengeon 01-04-2022 CO2 [Moles/Vol] 27.0 mmol/L 21.0-32.0 [facility] Work Phone: Urea nitrogen/Creatinine [Mass ratio] 30.5 mg/mg 10-20 [facility] Work Phone: Laboratory - Hematology and Cell countson 01-04-2022 Erythrocyte distribution width (RBC) [Entitic vol] 40.7 fL 35.1-43.9 [facility] Work Phone: Erythrocyte distribution width (RBC) [Ratio] 12.3 % 11.6-14.6 [facility] Work Phone: Immature granulocytes/100 WBC (Bld) 0.600 % 0.0-0.9 [facility] Work Phone: Comment on above: IG% - Immature Granu locytes (promyelocytes, myelocytes and metamyelocytes) > 1% indicates that a LEFT SHIFT is Present. MCH (RBC) [Entitic mass] 30.8 pg 27.0-32.0 [facility] Work Phone: Nucleated RBC/100 WBC (Bld) [Ratio] 0 % 0-5 [facility] Work Phone: MCHC Auto (RBC) [Mass/Vol]on 01-04-2022 MCHC (RBC) [Mass/Vol] 34.4 g/dL 32-36 [facility] Work Phone: No Panel Informationon 01-04 Estimated Creatinine Clearance Calc 51.28 ml/min [facility] Work Phone: [phone] Estimated GFR (MDRD) Amer 69 mL/min >60 [facility] Work Phone: Comment on above: GFR Calc Estimated GFR (MDRD) Non-Af Amer 57 mL/min >60 [facility] Work Phone: Comment on above: Non- GFR Calc Platelets bldon 01-04-2022 Platelets (Bld) [#/Vol] 321 10*3/uL 150-450 [facility] Work Phone: Serum or plasma calcium makeda urement (mass/volume)on 01-04-2022 Calcium [Mass/Vol] 9.0 mg/dL 8.5-10.1 [facility] Work Phone: [phone] Serum or plasma creatinine m easurement (mass/volume)on 01-04-2022 Creatinine [Mass/Vol] 1.31 mg/dL 0.70-1.30 [facility] Work Phone: Comment on above: The validity of the calculated GFR & GFRAA in patients over 70 years has not been determined. Clinical correlation is essential. Serum or plasma urea nitroge n measurement (mass/volume)on 01-04-2022 Urea nitrogen [Mass/Vol] 40 mg/dL 7-18 [facility] Work Phone: Thin prep Papanicolaou smear with manual screeningon 01-04-2022 Thin prep Papanicolaou smear with manual screening 7 5-15 [facility] Work Phone: Whole blood hemoglobin A1c/t otal hemoglobin ratio (mass fraction)on 01-03-2022 HbA1c (Bld) [Mass fraction] 11.0 % 3.8-5.6 [facility] Work Phone: Comment on above: Normal < 5.7 % Predi abetic 5.7 - 6.4 % Diabetic >or= 6.5 % Please note range changes. Absolute lymphocyte counton 01-02-2022 Lymphocytes Auto (Unsp spec) [#/Vol] 1.87 10*3/uL 0.83-4.51 [facility] Work Phone: Basophil percentageon 2021 Lactate [Moles/Vol] 1.5 mmol/L 0.4-2.0 [facility] Work Phone: Basophil percentage 0 SEEN /hpf [facility] Work Phone: Basophils/100 WBC (Bld) 0.2 % 0-1 [facility] Work Phone: Bilirubin [Mass/Vol] 0.70 mg/dL 0.20-1.00 [facility] Work Phone: Comment on above: For patients on eltr ombopag therapy, use of Dimension [place] TBIL is not recommended. Chloride [Moles/Vol] 91 mmol/L 98-107 [facility] Work Phone: Eosinophils/100 WBC (Bld) 0.0 % 0-5 [facility] Work Phone: Glucose [Mass/Vol] 500 mg/dL 74-106 [facility] Work Phone: Comment on above: Critical Result(s) C alled at: 07:58:34 01/02/2022 by: Frank Silva RN (ER). Results read back by same.Glucose result greater than or equal to 200 mg/dLsuggests DIABETES MELLITUS per A.D.A. criteria. Lactate [Moles/Vol] 3.8 mmol/L 0.4-2.0 [facility] Work Phone: Comment on above: Critical Result(s) C alled at: 08:00:34 01/02/2022 by: Frank Silva RN (ER). Results read back by same. Neutrophils (Bld) [#/Vol] 13.3 10*3/uL 2.0-7.7 [facility] Work Phone: Neutrophils/100 WBC (Bld) 80.2 % 47-70 [facility] Work Phone: Potassium [Moles/Vol] 5.5 mmol/L 3.5-5.1 [facility] Work Phone: Protein [Mass/Vol] 8.9 g/dL 6.4-8.2 [facility] Work Phone: Sodium [Moles/Vol] 130 mmol/L 136-145 [facility] Work Phone: WBC (Bld) [#/Vol] 16.6 10*3/uL 4.4-11.0 [facility] Work Phone: Bilirubin Test strip Ql (U)o n 01-02-2022 Bilirubin Ql (U) Negative Negative [facility] Work Phone: [phone] Blood erythrocytes count (nu mber/volume)on 01-02-2022 RBC (Bld) [#/Vol] 5.53 10*6/uL 4.6-6.2 [facility] Work Phone: Blood hemoglobin measurement (mass/volume)on 01-02-2022 Hemoglobin (Bld) [Mass/Vol] 17.3 g/dL 13.0-16.5 [facility] Work Phone: Blood lymphocytes/100 leukoc yteson 01-02-2022 Lymphocytes/100 WBC (Bld) 11.3 % 19-41 [facility] Work Phone: Blood monocytes/100 leukocyt eson 01-02-2022 Monocytes/100 WBC (Bld) 7.6 % 0-10 [facility] Work Phone: Blood platelet mean volumeon 01-02-2022 Platelet mean volume (Bld) [Entitic vol] 10.0 fL 6.2-12.0 [facility] Work Phone: Determination of erythrocyte mean corpuscular volume (MCV)on 01-02-2022 MCV (RBC) [Entitic vol] 88.8 fL 80-94 [facility] Work Phone: Glucose Glucometer (BldC) [M ass/Vol]on 01-02-2022 Glucose [Mass/Vol] 334 mg/dL 74-106 [facility] Work Phone: Comment on above: MANAGEMENT OF PATIEN T CARE PER NURSING PROTOCOL HCO3 (BldA) [Moles/Vol]on HCO3 (Bld) [Moles/Vol] 22 mmol/L 22-26 [facility] Work Phone: Hematocrit Auto (Bld) [Volum e fraction]on 01-02-2022 Hematocrit (Bld) [Volume fraction] 49.1 % 40-54 [facility] Work Phone: Ketones Test strip Ql (U)on 01-02-2022 Ketones Ql (U) 15 mg/dl Negative [facility] Work Phone: Laboratory - Chemistry and C hemistry - challengeon 01-02-2022 CO2 [Moles/Vol] 23 mmol/L 23-33 [facility] Work Phone: ALP [Catalytic activity/Vol] 77 U/L 45-117 [facility] Work Phone: ALT [Catalytic activity/Vol] 52 U/L 16-61 [facility] Work Phone: [phone] CO2 [Moles/Vol] 24.0 mmol/L 21.0-32.0 [facility] Work Phone: [phone] Globulin (S) [Mass/Vol] 4.5 g/dL 2.2-4.2 [facility] Work Phone: [phone] Urea nitrogen/Creatinine [Mass ratio] 37.3 mg/mg 10-20 [facility] Work Phone: [phone] Laboratory - Hematology and Cell countson 01-02-2022 Erythrocyte distribution width (RBC) [Entitic vol] 40.9 fL 35.1-43.9 [facility] Work Phone: [phone] Erythrocyte distribution width (RBC) [Ratio] 12.5 % 11.6-14.6 [facility] Work Phone: [phone] Immature granulocytes/100 WBC (Bld) 0.700 % 0.0-0.9 [facility] Work Phone: [phone] Comment on above: IG% - Immature Granu locytes (promyelocytes, myelocytes and metamyelocytes) > 1% indicates that a LEFT SHIFT is Present. MCH (RBC) [Entitic mass] 31.3 pg 27.0-32.0 [facility] Work Phone: [phone] Nucleated RBC/100 WBC (Bld) [Ratio] 0 % 0-5 [facility] Work Phone: [phone] Laboratory - Microbiology an d Antimicrobial susceptibilityon 01-02-2022 Bacteria identified Cx Nom (Bld) No growth in 5 days. [facility] Work Phone: [phone] MCHC Auto (RBC) [Mass/Vol]on 01-02-2022 MCHC (RBC) [Mass/Vol] 35.2 g/dL 32-36 [facility] Work Phone: [phone] Mucus LM Ql (Urine sed)on Mucus Ql (Urine sed) 0 SEEN /hpf [facility] Work Phone: [phone] Nitrite Test strip Ql (U)on 01-02-2022 Nitrite Ql (U) Negative Negative [facility] Work Phone: No Panel Informationon 01-02 Bed Mix Venous Bld PCO2 at Pat Temp 35.3 mmHg 41-51 [facility] Work Phone: Blood Gas Specimen Type JUDY [facility] Work Phone: [phone] Venous Blood Base Excess -3 mmol/L -1.0-3.5 [facility] Work Phone: [phone] SARS-CoV-2 & FLU Antigen (Rapid) [facility] Work Phone: [phone] Estimated Creatinine Clearance Calc 33.64 ml/min [facility] Work Phone: Estimated GFR (MDRD) Amer 42 mL/min >60 [facility] Work Phone: Comment on above: GFR Calc Estimated GFR (MDRD) Non-Af Amer 34 mL/min >60 [facility] Work Phone: Comment on above: Non- GFR Calc Troponin I High Sensitivity 7 pg/mL 3.0-78.0 [facility] Work Phone: Comment on above: Please Note: New Lynette t Units and Gender Specific Reference Ranges. For more information see Policy Stat Procedure [place] High Sensitivity Troponin (TNIH) and attachments. PO2 venouson 01-02-2022 Oxygen (BldV) [Partial pressure] 25 mm[Hg] 25-40 [facility] Work Phone: Platelets bldon 01-02-2022 Platelets (Bld) [#/Vol] 417 10*3/uL 150-450 [facility] Work Phone: [phone] Protein Test strip Ql (U)on 01-02-2022 Protein Ql (U) 15 mg/dl Negative [facility] Work Phone: [phone] Serum or plasma acetone makeda urement (mass/volume)on 01-02-2022 Acetone [Mass/Vol] Negative NEG [facility] Work Phone: [phone] Serum or plasma albumin makeda urement (mass/volume)on 01-02-2022 Albumin [Mass/Vol] 4.4 g/dL 3.2-5.0 [facility] Work Phone: Serum or plasma albumin/glob ulin mass ratioon 01-02-2022 Albumin/Globulin [Mass ratio] 1.0 {ratio} 0.9-2.4 [facility] Work Phone: Serum or plasma calcium makeda urement (mass/volume)on 01-02-2022 Calcium [Mass/Vol] 11.1 mg/dL 8.5-10.1 [facility] Work Phone: Serum or plasma creatinine m easurement (mass/volume)on 01-02-2022 Creatinine [Mass/Vol] 2.04 mg/dL 0.70-1.30 [facility] Work Phone: Comment on above: The validity of the calculated GFR & GFRAA in patients over 70 years has not been determined. Clinical correlation is essential. Serum or plasma urea nitroge n measurement (mass/volume)on 01-02-2022 Urea nitrogen [Mass/Vol] 76 mg/dL 7-18 [facility] Work Phone: Squamous epithelial cells de tection in urine sediment by light microscopyon 01-02-2022 Epithelial cells.squamous LM Ql (Urine sed) 0-5 SEEN /hpf [facility] Work Phone: Thin prep Papanicolaou smear with manual screeningon 01-02-2022 Thin prep Papanicolaou smear with manual screening 14 U/L 15-37 [facility] Work Phone: [phone] Thin prep Papanicolaou smear with manual screening 15 5-15 [facility] Work Phone: Urine blood detectionon 12-15 RBC Ql (U) Negative Negative [facility] Work Phone: RBC Ql (U) 0 SEEN /hpf [facility] Work Phone: Urine clarityon 01-02-2022 Clarity (U) Sl. Cloudy Clear [facility] Work Phone: Urine color determinationon 01-02-2022 Color (U) Yellow Yellow [facility] Work Phone: Urine glucose detectionon Glucose Ql (U) 1000 mg/dl Normal [facility] Work Phone: [phone] Urine leukocyte esterase det ection by dipstickon 01-02-2022 Leukocyte esterase Test strip Ql (U) Negative Negative [facility] Work Phone: Urine pHon 01-02-2022 pH (U) 6.0 [pH] [facility] Work Phone: Urine sediment bacteria coun t by microscopy (number/high power field)on 01-02-2022 Bacteria LM.HPF (Urine sed) [#/Area] 0 /[HPF] None Seen [facility] Work Phone: Urine specific gravity measu rementon 01-02-2022 Specific gravity (U) [Rel density] 1.015 [facility] Work Phone: Urobilinogen Auto test strip Ql (U)on 01-02-2022 Urobilinogen Ql (U) Normal mg/dl Normal [facility] Work Phone: Vital signson 01-02-2022 Oxygen saturation in Blood 45 % 50-70 [facility] Work Phone: pH measurementon 01-02-2022 pH (Unsp spec) 7.39 [pH] 7.32-7.42 [facility] Work Phone: CNTHERAPYon 12-28-2021 CNTHERAPY OT/PT/Speech Visit (PTWS) COLEMAN DAVIES ([id number]) 1950 M Date Time Provider Department 12/28/21 11:00 AM MARIA ELENA ZHONG PTWS Date Time Provider Department Center 12/28/2021 11:00 AM [id number] ELENA ZHONG PTWS [facility] Reason for Visit: PT Esteban [[id number]] 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] Allergies As of Date: 12/28/2021 (Not on File) Date Reviewed: Never Reviewed Letter Text Normal [facility] Clinical Summary: Irish eddie 12-27-2021 MC75 OP Visit Invalid Interpretation Code [facility] Work Phone: Office Visit: - visi t with practice, Rm: 42on 12-27-2021 NEGATED: Highlighted rowMRI (magnetic resonance imaging) history of the right shoulder on 03/07/2020 at [facility] Invalid Interpretation Code [facility] Work Phone: NEGATED: Highlighted Kaci smoking status Tobacco smoking status Invalid Interpretation Code [facility] Work Phone: No Panel Informationon 09-04 Hepatitis B Surface Antibody Non-Reactive [facility] Work Phone: Comment on above: Non Reactive: Incons istent with immunity less than <10 mIU/mL Reactive: Consistent with immunity greater than or equal to 10 mIU/mL Rubella IgG Antibody Reactive Nonreactive [facility] Work Phone: Comment on above: [...] IgG Qn (S) 113.0 AU/mL Immune >16.4 [facility] Work Phone: Comment on above: Negative <13.5 Equiv ocal 13.5 - 16.4 Positive >16.4Presence of antibodies to Rubeola is presumptive evidenceof immunity except when acute infection is suspected.Performed at: [address] [id number] Director: Ciaran Sethi PhD, Phone: [phone] Serum mumps virus IgG antibo dy assay (units/volume)on 09-04-2021 MuV IgG Qn (S) < 9.0 AU/mL Immune >10.9 [facility] Work Phone: Comment on above: Negative <9.0 Equivo elder 9.0 - 10.9 Positive >10.9A positive result generally indicates past exposure toMumps virus or previous vaccination. Vital Signs Date Time Vital Sign Value Performing Clinician Facility 07-21-2025 09:29-0500 Body height 182.[address] Briseyda Sinclair MD Work Phone: [facility] 07-21-2025 09:29-0500 Body mass index (BMI) [Ratio] 22.8 kg/m2 Dr. Briseyda Sinclair MD Work Phone: [facility] 07-21-2025 09:29-0500 Body temperature 98 [degF] Dr. Briseyda Sinclair MD Work Phone: [facility] 07-21-2025 09:29-0500 Body weight 76.[address] Briseyda Sinclair MD Work Phone: [facility] 07-21-2025 09:29-0500 Diastolic blood pressure 65 mm[Hg] Dr. Briseyda Sinclair MD Work Phone: [facility] 07-21-2025 09:29-0500 Heart rate 70 /min Dr. Briseyda Sinclair MD Work Phone: [facility] 07-21-2025 09:29-0500 Respiratory rate 16 /min Dr. Briseyda Sinclair MD Work Phone: [facility] 07-21-2025 09:29-0500 SaO2% (BldA) [Mass fraction] 98 % Dr. Briseyda Sinclair MD Work Phone: [facility] 07-21-2025 09:29-0500 Systolic blood pressure 115 mm[Hg] Dr. Briseyda Sinclair MD Work Phone: [facility] 07-07-2025 11:32-0400 Body height 182.[address] Briseyda Sinclair MD Work Phone: [facility] 07-07-2025 11:32-0400 Body weight 74.[address] Briseyda Sinclair MD Work Phone: [facility] 06-21-2025 07:58-0400 Body height 182.[address] Briseyda Sinclair MD Work Phone: [facility] 06-21-2025 07:58-0400 Body mass index (BMI) [Ratio] 20.6 kg/m2 Dr. Briseyda Sinclair MD Work Phone: [facility] 06-21-2025 07:58-0400 Body temperature 98 [degF] Dr. Briseyda Sinclair MD Work Phone: [facility] 06-21-2025 07:58-0400 Body weight [address] Briseyda Sinclair MD Work Phone: [facility] 06-21-2025 07:58-0400 Diastolic blood pressure 53 mm[Hg] Dr. Briseyda Sincliar MD Work Phone: [facility] 06-21-2025 07:58-0400 Heart rate 70 /min Dr. Briesyda Sinclair MD Work Phone: [facility] 06-21-2025 07:58-0400 Respiratory rate 16 /min Dr. Briseyda Sinclair MD Work Phone: [facility] 06-21-2025 07:58-0400 SaO2% (BldA) [Mass fraction] 95 % Dr. Briseyda Sinclair MD Work Phone: [facility] 06-21-2025 07:58-0400 Systolic blood pressure 93 mm[Hg] Dr. Briseyda Sinclair MD Work Phone: [facility] 06-15-2025 14:03-0400 Body temperature 97.9 [degF] Dr. Briseyda Sinclair MD Work Phone: [facility] 06-15-2025 14:03-0400 Diastolic blood pressure 57 mm[Hg] Dr. Briseyda Sinclair MD Work Phone: [facility] 06-15-2025 14:03-0400 Heart rate 76 /min Dr. Briseyda Sinclair MD Work Phone: [facility] 06-15-2025 14:03-0400 Respiratory rate 14 /min Dr. Briseyda Sinclair MD Work Phone: [facility] 06-15-2025 14:03-0400 SaO2% (BldA) [Mass fraction] 100 % Dr. Briseyda Sinclair MD Work Phone: [facility] 06-15-2025 14:03-0400 Systolic blood pressure 122 mm[Hg] Dr. Briseyda Sinclair MD Work Phone: [facility] 06-15-2025 10:00-0400 Inhaled oxygen flow rate 2 L/min Dr. Briseyda Sinclair MD Work Phone: [facility] 06-15-2025 03:15-0400 Body mass index (BMI) [Ratio] 22.4 kg/m2 Dr. Briseyda Sinclair MD Work Phone: [facility] 06-15-2025 03:15-0400 Body weight 75.[address] Briseyda Sinclair MD Work Phone: [facility] 06-14-2025 15:40-0400 Body height 182.[address] Briseyda Sinclair MD Work Phone: [facility] 05-12-2025 15:32-0400 Body temperature 98.2 [degF] Dr. Briseyda Sinclair MD Work Phone: [facility] 05-12-2025 15:32-0400 Body weight 74.[address] Briseyda Sinclair MD Work Phone: [facility] 05-12-2025 15:32-0400 Diastolic blood pressure 71 mm[Hg] Dr. Briseyda Sinclair MD Work Phone: [facility] 05-12-2025 15:32-0400 Heart rate 79 /min Dr. Briseyda Sinclair MD Work Phone: [facility] 05-12-2025 15:32-0400 Respiratory rate 18 /min Dr. Briseyda Sinclair MD Work Phone: [facility] 05-12-2025 15:32-0400 SaO2% (BldA) [Mass fraction] 100 % Dr. Briseyda Sinclair MD Work Phone: [facility] 05-12-2025 15:32-0400 Systolic blood pressure 144 mm[Hg] Dr. Briseyda Sinclair MD Work Phone: [facility] 05-03-2025 13:52-0400 Body height 182.[address] Briseyda Sinclair MD Work Phone: [facility] 05-03-2025 13:52-0400 Body mass index (BMI) [Ratio] 22.2 kg/m2 Dr. Briseyda Sinclair MD Work Phone: [facility] 05-03-2025 13:52-0400 Body temperature 98 [degF] Dr. Briseyda Sinclair MD Work Phone: [facility] 05-03-2025 13:52-0400 Body weight 74.[address] Briseyda Sinclair MD Work Phone: [facility] 05-03-2025 13:52-0400 Diastolic blood pressure 64 mm[Hg] Dr. Briseyda Sinclair MD Work Phone: [facility] 05-03-2025 13:52-0400 Heart rate 76 /min Dr. Briseyda Sinclair MD Work Phone: [facility] 05-03-2025 13:52-0400 Respiratory rate 16 /min Dr. Briseyda Sinclair MD Work Phone: [facility] 05-03-2025 13:52-0400 SaO2% (BldA) [Mass fraction] 98 % Dr. Briseyda Sinclair MD Work Phone: [facility] 05-03-2025 13:52-0400 Systolic blood pressure 135 mm[Hg] Dr. Briseyda Sinclair MD Work Phone: [facility] 04-28-2025 14:10-0400 Body height 182.[address] Briseyda Sinclair MD Work Phone: [facility] 04-28-2025 14:10-0400 Body mass index (BMI) [Ratio] 22.1 kg/m2 Dr. Briseyda Sinclair MD Work Phone: [facility] 04-28-2025 14:10-0400 Body weight 73.[address] Briseyda Sinclair MD Work Phone: [facility] 04-28-2025 14:10-0400 Diastolic blood pressure 60 mm[Hg] Dr. Briseyda Sinclair MD Work Phone: [facility] 04-28-2025 14:10-0400 Heart rate 79 /min Dr. Briseyda Sinclair MD Work Phone: [facility] 04-28-2025 14:10-0400 Inhaled oxygen flow rate 95 L/min Dr. Briseyda Sinclair MD Work Phone: [facility] 04-28-2025 14:10-0400 Respiratory rate 18 /min Dr. Briseyda Sinclair MD Work Phone: [facility] 04-28-2025 14:10-0400 Systolic blood pressure 96 mm[Hg] Dr. Briseyda Sinclair MD Work Phone: [facility] 04-12-2025 12:59-0400 Body height 182.[address] Briseyda Sinclair MD Work Phone: [facility] 04-12-2025 12:59-0400 Body mass index (BMI) [Ratio] 22.1 kg/m2 Dr. Briseyda Sinclair MD Work Phone: [facility] 04-12-2025 12:59-0400 Body temperature 98.2 [degF] Dr. Briseyda Sinclair MD Work Phone: [facility] 04-12-2025 12:59-0400 Body weight 74.[address] Briseyda Sinclair MD Work Phone: [facility] 04-12-2025 12:59-0400 Diastolic blood pressure 74 mm[Hg] Dr. Briseyda Sinclair MD Work Phone: [facility] 04-12-2025 12:59-0400 Heart rate 87 /min Dr. Briseyda Sinclair MD Work Phone: [facility] 04-12-2025 12:59-0400 Respiratory rate 16 /min Dr. Briseyda Sinclair MD Work Phone: [facility] 04-12-2025 12:59-0400 SaO2% (BldA) [Mass fraction] 87 % Dr. Briseyda Sinclair MD Work Phone: [facility] 04-12-2025 12:59-0400 Systolic blood pressure 124 mm[Hg] Dr. Briseyda Sinclair MD Work Phone: [facility] 03-29-2025 10:16-0400 Body temperature 97.8 [degF] Dr. Briseyda Sinclair MD Work Phone: [facility] 03-29-2025 10:16-0400 Diastolic blood pressure 73 mm[Hg] Dr. Briseyda Sinclair MD Work Phone: [facility] 03-29-2025 10:16-0400 Heart rate 75 /min Dr. Briseyda Sinclair MD Work Phone: [facility] 03-29-2025 10:16-0400 Respiratory rate 14 /min Dr. Briseyda Sinclair MD Work Phone: [facility] 03-29-2025 10:16-0400 SaO2% (BldA) [Mass fraction] 98 % Dr. Briseyda Sinclair MD Work Phone: [facility] 03-29-2025 10:16-0400 Systolic blood pressure 151 mm[Hg] Dr. Briseyda Sinclair MD Work Phone: [facility] 03-29-2025 06:20-0400 Body height 182.[address] Briseyda Sinclair MD Work Phone: [facility] 03-29-2025 06:20-0400 Body mass index (BMI) [Ratio] 21.6 kg/m2 Dr. Briseyda Sinclair MD Work Phone: [facility] 03-29-2025 06:20-0400 Body weight 72.[address] Briseyda Sinclair MD Work Phone: [facility] 03-04-2025 12:24-0400 Body temperature 97.81 [degF] Simba Blackman MD Work Phone: [facility] 03-04-2025 12:24-0400 Body weight 75.66 kg Simba Blackman MD Work Phone: [facility] 03-04-2025 12:24-0400 Diastolic blood pressure 69 mm[Hg] Simba Blackman MD Work Phone: [facility] 03-04-2025 12:24-0400 Heart rate 80 /min Simba Blackman MD Work Phone: [facility] 03-04-2025 12:24-0400 Systolic blood pressure 121 mm[Hg] Simba Blackman MD Work Phone: [facility] 02-11-2025 13:27-0400 Body height 182.[address] Briseyda Sinclair MD Work Phone: [facility] 02-11-2025 13:27-0400 Body mass index (BMI) [Ratio] 23.1 kg/m2 Dr. Briseyda Sinclair MD Work Phone: [facility] 02-11-2025 13:27-0400 Body temperature 98.2 [degF] Dr. Briseyda Sinclair MD Work Phone: [facility] 02-11-2025 13:27-0400 Body weight 77.[address] Briseyda Sinclair MD Work Phone: [facility] 02-11-2025 13:27-0400 Diastolic blood pressure 67 mm[Hg] Dr. Briseyda Sinclair MD Work Phone: [facility] 02-11-2025 13:27-0400 Heart rate 82 /min Dr. Briseyda Sinclair MD Work Phone: [facility] 02-11-2025 13:27-0400 Respiratory rate 15 /min Dr. Briseyda Sinclair MD Work Phone: [facility] 02-11-2025 13:27-0400 SaO2% (BldA) [Mass fraction] 98 % Dr. Briseyda Sinclair MD Work Phone: [facility] 02-11-2025 13:27-0400 Systolic blood pressure 126 mm[Hg] Dr. Briseyda Sinclair MD Work Phone: [facility] 02-06-2025 11:42-0400 Body mass index (BMI) [Ratio] 22.5 kg/m2 Dr. Briseyda Sinclair MD Work Phone: [facility] 02-06-2025 11:42-0400 Body temperature 98.6 [degF] Dr. Briseyda Sinclair MD Work Phone: [facility] 02-06-2025 11:42-0400 Body weight 75.[address] Briseyda Sinclair MD Work Phone: [facility] 02-06-2025 11:42-0400 Diastolic blood pressure 80 mm[Hg] Dr. Briseyda Sinclair MD Work Phone: [facility] 02-06-2025 11:42-0400 Heart rate 74 /min Dr. Briseyda Sinclair MD Work Phone: [facility] 02-06-2025 11:42-0400 Respiratory rate 16 /min Dr. Briseyda Sinclair MD Work Phone: [facility] 02-06-2025 11:42-0400 SaO2% (BldA) [Mass fraction] 98 % Dr. Briseyda Sinclair MD Work Phone: [facility] 02-06-2025 11:42-0400 Systolic blood pressure 124 mm[Hg] Dr. Briseyda Sinclair MD Work Phone: [facility] 02-01-2025 13:49-0400 Body height 182.[address] Briseyda Sinclair MD Work Phone: [facility] 02-01-2025 13:49-0400 Body mass index (BMI) [Ratio] 22.8 kg/m2 Dr. Briseyda Sinclair MD Work Phone: [facility] 02-01-2025 13:49-0400 Body temperature 98.6 [degF] Dr. Briseyda Sinclair MD Work Phone: [facility] 02-01-2025 13:49-0400 Body weight 76.[address] Briseyda Sinclair MD Work Phone: [facility] 02-01-2025 13:49-0400 Diastolic blood pressure 72 mm[Hg] Dr. Briseyda Sinclair MD Work Phone: [facility] 02-01-2025 13:49-0400 Heart rate 78 /min Dr. Briseyda Sinclair MD Work Phone: [facility] 02-01-2025 13:49-0400 Respiratory rate 16 /min Dr. Briseyda Sinclair MD Work Phone: [facility] 02-01-2025 13:49-0400 SaO2% (BldA) [Mass fraction] 98 % Dr. Briseyda Sinclair MD Work Phone: [facility] 02-01-2025 13:49-0400 Systolic blood pressure 138 mm[Hg] Dr. Briseyda Sinclair MD Work Phone: [facility] 01-27-2025 14:53-0400 Body height 182.[address] Briseyda Sinclair MD Work Phone: [facility] 01-27-2025 14:53-0400 Body mass index (BMI) [Ratio] 23.1 kg/m2 Dr. Briseyda Sinclair MD Work Phone: [facility] 01-27-2025 14:53-0400 Body temperature 98.4 [degF] Dr. Briseyda Sinclair MD Work Phone: [facility] 01-27-2025 14:53-0400 Body weight 77.[address] Briseyda Sinclair MD Work Phone: [facility] 01-27-2025 14:53-0400 Diastolic blood pressure 61 mm[Hg] Dr. Briseyda Sinclair MD Work Phone: [facility] 01-27-2025 14:53-0400 Heart rate 75 /min Dr. Briseyda Sinclair MD Work Phone: [facility] 01-27-2025 14:53-0400 Respiratory rate 16 /min Dr. Briseyda Sinclair MD Work Phone: [facility] 01-27-2025 14:53-0400 SaO2% (BldA) [Mass fraction] 96 % Dr. Briseyda Sniclair MD Work Phone: [facility] 01-27-2025 14:53-0400 Systolic blood pressure 115 mm[Hg] Dr. Briseyda Sinclair MD Work Phone: [facility] 01-14-2025 11:50-0400 Body temperature 97.7 [degF] Dr. Briseyda Sinclair MD Work Phone: [facility] 01-14-2025 11:50-0400 Diastolic blood pressure 71 mm[Hg] Dr. Briseyda Sinclair MD Work Phone: [facility] 01-14-2025 11:50-0400 Heart rate 81 /min Dr. Briseyda Sinclair MD Work Phone: [facility] 01-14-2025 11:50-0400 Respiratory rate 16 /min Dr. Briseyda Sinclair MD Work Phone: [facility] 01-14-2025 11:50-0400 SaO2% (BldA) [Mass fraction] 96 % Dr. Briseyda Sinclair MD Work Phone: [facility] 01-14-2025 11:50-0400 Systolic blood pressure 150 mm[Hg] Dr. Briseyda Sinclair MD Work Phone: [facility] 01-14-2025 00:39-0400 Body mass index (BMI) [Ratio] 21.6 kg/m2 Dr. Briseyda Sinclair MD Work Phone: [facility] 01-13-2025 15:51-0400 Body weight 72.[address] Briseyda Sinclair MD Work Phone: [facility] 11-09-2024 13:21-0500 Body height 182.[address] Briseyda Sinclair MD Work Phone: [facility] 11-09-2024 13:21-0500 Body mass index (BMI) [Ratio] 23.4 kg/m2 Dr. Briseyda Sinclair MD Work Phone: [facility] 11-09-2024 13:21-0500 Body weight 78.[address] Briseyda Sinclair MD Work Phone: [facility] 11-09-2024 13:21-0500 Diastolic blood pressure 87 mm[Hg] Dr. Briseyda Sinclair MD Work Phone: [facility] 11-09-2024 13:21-0500 Heart rate 77 /min Dr. Briseyda Sinclair MD Work Phone: [facility] 11-09-2024 13:21-0500 Respiratory rate 16 /min Dr. Briseyda Sinclair MD Work Phone: [facility] 11-09-2024 13:21-0500 SaO2% (BldA) [Mass fraction] 96 % Dr. Briseyda Sinclair MD Work Phone: [facility] 11-09-2024 13:21-0500 Systolic blood pressure 155 mm[Hg] Dr. Briseyda Sinclair MD Work Phone: [facility] 08-20-2024 08:24-0500 Body mass index (BMI) [Ratio] 23.8 kg/m2 Dr. Briseyda Sinclair MD Work Phone: [facility] 08-20-2024 08:24-0500 Body weight 79.[address] Briseyda Sinclair MD Work Phone: [facility] 08-10-2024 13:34-0500 Body mass index (BMI) [Ratio] 23.5 kg/m2 Dr. Briseyda Sinclair MD Work Phone: [facility] 08-10-2024 13:34-0500 Body temperature 98 [degF] Dr. Briseyda Sinclair MD Work Phone: [facility] 08-10-2024 13:34-0500 Body weight 78.[address] Briseyda Sinclair MD Work Phone: [facility] 08-10-2024 13:34-0500 Diastolic blood pressure 76 mm[Hg] Dr. Briseyda Sinclair MD Work Phone: [facility] 08-10-2024 13:34-0500 Heart rate 80 /min Dr. Briseyda Sinclair MD Work Phone: [facility] 08-10-2024 13:34-0500 Respiratory rate 16 /min Dr. Briseyda Sinclair MD Work Phone: [facility] 08-10-2024 13:34-0500 SaO2% (BldA) [Mass fraction] 96 % Dr. Briseyda Sinclair MD Work Phone: [facility] 08-10-2024 13:34-0500 Systolic blood pressure 124 mm[Hg] Dr. Briseyda Sinclair MD Work Phone: [facility] 12-03-2023 07:40-0400 Body temperature 96.6 [degF] Dr. Briseyda Sinclair Work Phone: [facility] 12-03-2023 07:40-0400 Diastolic blood pressure 57 mm[Hg] Dr. Briseyda Sinclair Work Phone: [facility] 12-03-2023 07:40-0400 Heart rate 66 /min Dr. Briseyda Sinclair Work Phone: [facility] 12-03-2023 07:40-0400 Respiratory rate 18 /min Dr. Briseyda Sinclair Work Phone: [facility] 12-03-2023 07:40-0400 SaO2% (BldA) [Mass fraction] 96 % Dr. Briseyda Sinclair Work Phone: [facility] 12-03-2023 07:40-0400 Systolic blood pressure 108 mm[Hg] Dr. Briseyda Sinclair Work Phone: [facility] 12-03-2023 07:24-0400 Inhaled oxygen flow rate 2 L/min Dr. Briseyda Sinclair Work Phone: [facility] 12-03-2023 06:00-0400 Body height 182.[address] Briseyda Sinclair Work Phone: [facility] 12-03-2023 06:00-0400 Body mass index (BMI) [Ratio] 21.7 kg/m2 Dr. Briseyda Sinclair Work Phone: [facility] 12-03-2023 06:00-0400 Body weight 72.[address] Briseyda Sinclair Work Phone: [facility] 11-22-2023 13:41-0500 Body height 182.[address] Briseyda Sinclair Work Phone: [facility] 11-22-2023 13:41-0500 Body mass index (BMI) [Ratio] 23.3 kg/m2 Dr. Briseyda Sinclair Work Phone: [facility] 11-22-2023 13:41-0500 Body weight 78.[address] Briseyda Sinclair Work Phone: [facility] 11-22-2023 13:41-0500 Diastolic blood pressure 76 mm[Hg] Dr. Briseyda Sinclair Work Phone: [facility] 11-22-2023 13:41-0500 Respiratory rate 18 /min Dr. Briseyda Sinclair Work Phone: [facility] 11-22-2023 13:41-0500 Systolic blood pressure 153 mm[Hg] Dr. Briseyda Sinclair Work Phone: [facility] 10-07-2023 14:00-0500 Body mass index (BMI) [Ratio] 23.2 kg/m2 Dr. Briseyda Sinclair Work Phone: [facility] 10-07-2023 14:00-0500 Body temperature 97.8 [degF] Dr. Briseyda Sinclair Work Phone: [facility] 10-07-2023 14:00-0500 Body weight 77.[address] Briseyda Sinclair Work Phone: [facility] 10-07-2023 14:00-0500 Diastolic blood pressure 73 mm[Hg] Dr. Briseyda Sinclair Work Phone: [facility] 10-07-2023 14:00-0500 Heart rate 85 /min Dr. Briseyda Sinclair Work Phone: [facility] 10-07-2023 14:00-0500 Respiratory rate 16 /min Dr. Briseyda Sinclair Work Phone: [facility] 10-07-2023 14:00-0500 SaO2% (BldA) [Mass fraction] 97 % Dr. Briseyda Sinclair Work Phone: [facility] 10-07-2023 14:00-0500 Systolic blood pressure 121 mm[Hg] Dr. Briseyda Sinclair Work Phone: [facility] 08-29-2023 06:07-0500 Body temperature 97.8 [degF] Dr. Briseyda Sinclair Work Phone: [facility] 08-29-2023 06:07-0500 Diastolic blood pressure 85 mm[Hg] Dr. Briseyda Sinclair Work Phone: [facility] 08-29-2023 06:07-0500 Heart rate 91 /min Dr. Briseyda Sinclair Work Phone: [facility] 08-29-2023 06:07-0500 Respiratory rate 12 /min Dr. Briseyda Sinclair Work Phone: [facility] 08-29-2023 06:07-0500 SaO2% (BldA) [Mass fraction] 98 % Dr. Briseyda Sinclair Work Phone: [facility] 08-29-2023 06:07-0500 Systolic blood pressure 155 mm[Hg] Dr. Briseyda Sinclair Work Phone: [facility] 08-24-2023 07:06-0500 Body height 182.[address] Briseyda Sinclair Work Phone: [facility] 08-24-2023 07:06-0500 Body mass index (BMI) [Ratio] 21.9 kg/m2 Dr. Briseyda Sinclair Work Phone: [facility] 08-24-2023 07:06-0500 Body temperature 97.6 [degF] Dr. Briseyda Sinclair Work Phone: [facility] 08-24-2023 07:06-0500 Body weight 73.[address] Briseyda Sinclair Work Phone: [facility] 08-24-2023 07:06-0500 Diastolic blood pressure 80 mm[Hg] Dr. Briseyda Sinclair Work Phone: [facility] 08-24-2023 07:06-0500 Heart rate 83 /min Dr. Briseyda Sinclair Work Phone: [facility] 08-24-2023 07:06-0500 Respiratory rate 14 /min Dr. Briseyda Sinclair Work Phone: [facility] 08-24-2023 07:06-0500 SaO2% (BldA) [Mass fraction] 99 % Dr. Briseyda Sinclair Work Phone: [facility] 08-24-2023 07:06-0500 Systolic blood pressure 153 mm[Hg] Dr. Briseyda Sinclair Work Phone: [facility] 08-20-2023 05:44-0500 Diastolic blood pressure 71 mm[Hg] Dr. Briseyda Sinclair Work Phone: [facility] 08-20-2023 05:44-0500 Heart rate 75 /min Dr. Briseyda Sinclair Work Phone: [facility] 08-20-2023 05:44-0500 Respiratory rate 14 /min Dr. Briseyda Sinclair Work Phone: [facility] 08-20-2023 05:44-0500 SaO2% (BldA) [Mass fraction] 99 % Dr. Briseyda Sinclair Work Phone: [facility] 08-20-2023 05:44-0500 Systolic blood pressure 150 mm[Hg] Dr. Briseyda Sinclair Work Phone: [facility] 08-20-2023 03:33-0500 Body temperature 97.6 [degF] Dr. Briseyda Sinclair Work Phone: [facility] 08-20-2023 03:30-0500 Body height 182.[address] Briseyda Sinclair Work Phone: [facility] 08-20-2023 03:30-0500 Body mass index (BMI) [Ratio] 22.1 kg/m2 Dr. Briseyda Sinclair Work Phone: [facility] 08-20-2023 03:30-0500 Body weight [address] Briseyda Sinclair Work Phone: [facility] 08-13-2023 08:37-0500 Body mass index (BMI) [Ratio] 23.6 kg/m2 Dr. Briseyda Sinclair Work Phone: [facility] 08-13-2023 08:37-0500 Body temperature 98.4 [degF] Dr. Briseyda Sinclair Work Phone: [facility] 08-13-2023 08:37-0500 Body weight 78.[address] Briseyda Sinclair Work Phone: [facility] 08-13-2023 08:37-0500 Diastolic blood pressure 76 mm[Hg] Dr. Briseyda Sinclair Work Phone: [facility] 08-13-2023 08:37-0500 Heart rate 92 /min Dr. Briseyda Sinclair Work Phone: [facility] 08-13-2023 08:37-0500 Respiratory rate 12 /min Dr. Briseyda Sinclair Work Phone: [facility] 08-13-2023 08:37-0500 SaO2% (BldA) [Mass fraction] 96 % Dr. Briseyda Sinclair Work Phone: [facility] 08-13-2023 08:37-0500 Systolic blood pressure 154 mm[Hg] Dr. Briseyda Sinclair Work Phone: [facility] 05-22-2023 13:03-0400 Body height 182.[address] Briseyda Sinclair Work Phone: [facility] 05-22-2023 13:03-0400 Body mass index (BMI) [Ratio] 23.1 kg/m2 Dr. Briseyda Sinclair Work Phone: [facility] 05-22-2023 13:03-0400 Body weight 77.[address] Briseyda Sinclair Work Phone: [facility] 05-22-2023 13:03-0400 Diastolic blood pressure 66 mm[Hg] Dr. Briseyda Sinclair Work Phone: [facility] 05-22-2023 13:03-0400 Heart rate 77 /min Dr. Briseyda Sinclair Work Phone: [facility] 05-22-2023 13:03-0400 Respiratory rate 16 /min Dr. Briseyda Sinclair Work Phone: [facility] 05-22-2023 13:03-0400 Systolic blood pressure 106 mm[Hg] Dr. Briseyda Sinclair Work Phone: [facility] 04-01-2023 14:21-0400 Body mass index (BMI) [Ratio] 23.5 kg/m2 Dr. Briseyda Sinclair Work Phone: [facility] 04-01-2023 14:21-0400 Body temperature 98.2 [degF] Dr. Briseyda Sinclair Work Phone: [facility] 04-01-2023 14:21-0400 Body weight 78.[address] Briseyda Sinclair Work Phone: [facility] 04-01-2023 14:21-0400 Diastolic blood pressure 68 mm[Hg] Dr. Briseyda Sinclair Work Phone: [facility] 04-01-2023 14:21-0400 Heart rate 78 /min Dr. Briseyda Sinclair Work Phone: [facility] 04-01-2023 14:21-0400 Respiratory rate 16 /min Dr. Briseyda Sinclair Work Phone: [facility] 04-01-2023 14:21-0400 SaO2% (BldA) [Mass fraction] 93 % Dr. Briseyda Sinclair Work Phone: [facility] 04-01-2023 14:21-0400 Systolic blood pressure 120 mm[Hg] Dr. Briseyda Sinclair Work Phone: [facility] 03-07-2023 14:53-0400 Diastolic blood pressure 76 mm[Hg] Dr. Briseyda Sinclair Work Phone: [facility] 03-07-2023 14:53-0400 Heart rate 77 /min Dr. Briseyda Sinclair Work Phone: [facility] 03-07-2023 14:53-0400 Systolic blood pressure 133 mm[Hg] Dr. Briseyda Sinclair Work Phone: [facility] 09-24-2022 13:35-0500 Body temperature 97.8 [degF] Dr. Briseyda Sinclair Work Phone: [facility] 09-24-2022 13:35-0500 Body weight 79.[address] Briseyda Sinclair Work Phone: [facility] 09-24-2022 13:35-0500 Diastolic blood pressure 83 mm[Hg] Dr. Briseyda Sinclair Work Phone: [facility] 09-24-2022 13:35-0500 Heart rate 83 /min Dr. Briseyda Sinclair Work Phone: [facility] 09-24-2022 13:35-0500 Respiratory rate 16 /min Dr. Briseyda Sinclair Work Phone: [facility] 09-24-2022 13:35-0500 SaO2% (BldA) [Mass fraction] 98 % Dr. Briseyda Sinclair Work Phone: [facility] 09-24-2022 13:35-0500 Systolic blood pressure 131 mm[Hg] Dr. Briseyda Sinclair Work Phone: [facility] 06-01-2022 06:55-0400 Body height 182.[address] Briseyda Sinclair Work Phone: [facility] Work Phone: 06-01-2022 06:55-0400 Body weight 75.[address] Briseyda Sinclair Work Phone: [facility] Work Phone: 05-31-2022 08:01-0400 Body mass index (BMI) [Ratio] 22.6 kg/m2 Dr. Briseyda Sinclair Work Phone: [facility] Work Phone: 05-04-2022 10:06-0400 Body height 182.[address] Briseyda Sinclair Work Phone: [facility] Work Phone: 05-04-2022 10:06-0400 Body mass index (BMI) [Ratio] 22.6 kg/m2 Dr. Briseyda Sinclair Work Phone: [facility] Work Phone: 05-04-2022 10:06-0400 Body weight 75.[address] Briseyda Sinclair Work Phone: [facility] Work Phone: 05-04-2022 10:06-0400 Diastolic blood pressure 75 mm[Hg] Dr. Briseyda Sinclair Work Phone: [facility] Work Phone: 05-04-2022 10:06-0400 Heart rate 86 /min Dr. Briseyda Sinclair Work Phone: [facility] Work Phone: 05-04-2022 10:06-0400 Respiratory rate 18 /min Dr. Briseyda Sinclair Work Phone: [facility] Work Phone: 05-04-2022 10:06-0400 SaO2% (BldA) [Mass fraction] 99 % Dr. Briseyda Sinclair Work Phone: [facility] Work Phone: 05-04-2022 10:06-0400 Systolic blood pressure 119 mm[Hg] Dr. Briseyda Sinclair Work Phone: [facility] Work Phone: 03-21-2022 13:11-0400 Body mass index (BMI) [Ratio] 22.5 kg/m2 Dr. Briseyda Sinclair Work Phone: [facility] Work Phone: 03-21-2022 13:11-0400 Body weight 75.[address] Briseyda Sinclair Work Phone: [facility] Work Phone: 03-21-2022 13:11-0400 Diastolic blood pressure 68 mm[Hg] Dr. Briseyda Sinclair Work Phone: [facility] Work Phone: 03-21-2022 13:11-0400 Heart rate 88 /min Dr. Briseyda Sinclair Work Phone: [facility] Work Phone: 03-21-2022 13:11-0400 Respiratory rate 14 /min Dr. Briseyda Sinclair Work Phone: [facility] Work Phone: 03-21-2022 13:11-0400 SaO2% (BldA) [Mass fraction] 98 % Dr. Briseyda Sinclair Work Phone: [facility] Work Phone: 03-21-2022 13:11-0400 Systolic blood pressure 122 mm[Hg] Dr. Briseyda Sinclair Work Phone: [facility] Work Phone: 03-02-2022 08:31-0400 Body mass index (BMI) [Ratio] 21.7 kg/m2 Dr. Briseyda Sinclair Work Phone: [facility] Work Phone: 03-02-2022 08:31-0400 Body temperature 97.2 [degF] Dr. Briseyda Sinclair Work Phone: [facility] Work Phone: 03-02-2022 08:31-0400 Body weight 72.[address] Briseyda Sinclair Work Phone: [facility] Work Phone: 03-02-2022 08:31-0400 Diastolic blood pressure 59 mm[Hg] Dr. Briseyda Sinclair Work Phone: [facility] Work Phone: 03-02-2022 08:31-0400 Heart rate 82 /min Dr. Briseyda Sinclair Work Phone: [facility] Work Phone: 03-02-2022 08:31-0400 Respiratory rate 18 /min Dr. Briseyda Sinclair Work Phone: [facility] Work Phone: 03-02-2022 08:31-0400 SaO2% (BldA) [Mass fraction] 97 % Dr. Briseyda Sinclair Work Phone: [facility] Work Phone: 03-02-2022 08:31-0400 Systolic blood pressure 113 mm[Hg] Dr. Briseyda Sinclair Work Phone: [facility] Work Phone: 01-24-2022 08:31-0400 Body mass index (BMI) [Ratio] 21.7 kg/m2 Dr. Briseyda Sinclair Work Phone: [facility] Work Phone: 01-24-2022 08:31-0400 Body temperature 97.1 [degF] Dr. Briseyda Sinclair Work Phone: [facility] Work Phone: 01-24-2022 08:31-0400 Body weight 72.[address] Briseyda Sinclair Work Phone: [facility] Work Phone: 01-24-2022 08:31-0400 Diastolic blood pressure 66 mm[Hg] Dr. Briseyda Sinclair Work Phone: [facility] Work Phone: 01-24-2022 08:31-0400 Heart rate 90 /min Dr. Briseyda Sinclair Work Phone: [facility] Work Phone: 01-24-2022 08:31-0400 Respiratory rate 14 /min Dr. Briseyda Sinclair Work Phone: [facility] Work Phone: 01-24-2022 08:31-0400 SaO2% (BldA) [Mass fraction] 99 % Dr. Briseyda Sinclair Work Phone: [facility] Work Phone: 01-24-2022 08:31-0400 Systolic blood pressure 104 mm[Hg] Dr. Briseyda Sinclair Work Phone: [facility] Work Phone: 01-24-2022 08:31-0400 Body height 182.[address] Briseyda Sinclair Work Phone: [facility] Work Phone: 01-24-2022 08:31-0400 Body mass index (BMI) [Ratio] 21.7 kg/m2 Dr. Briseyda Sinclair Work Phone: [facility] Work Phone: 01-24-2022 08:31-0400 Body temperature 97.1 [degF] Dr. Briseyda Sinclair Work Phone: [facility] Work Phone: 01-24-2022 08:31-0400 Body weight 72.[address] Briseyda Sinclair Work Phone: [facility] Work Phone: 01-24-2022 08:31-0400 Diastolic blood pressure 66 mm[Hg] Dr. Briseyda Sinclair Work Phone: [facility] Work Phone: 01-24-2022 08:31-0400 Heart rate 90 /min Dr. Briseyda Sinclair Work Phone: [facility] Work Phone: 01-24-2022 08:31-0400 Respiratory rate 14 /min Dr. Briseyda Sinclair Work Phone: [facility] Work Phone: 01-24-2022 08:31-0400 SaO2% (BldA) [Mass fraction] 99 % Dr. Briseyda Sinclair Work Phone: [facility] Work Phone: 01-24-2022 08:31-0400 Systolic blood pressure 104 mm[Hg] Dr. Briseyda Sinclair Work Phone: [facility] Work Phone: 01-10-2022 11:25-0400 Body mass index (BMI) [Ratio] 21.1 kg/m2 Dr. Briseyda Sinclair Work Phone: [facility] Work Phone: 01-10-2022 11:25-0400 Body temperature 97.3 [degF] Dr. Briseyda Sinclair Work Phone: [facility] Work Phone: 01-10-2022 11:25-0400 Body weight 70.[address] Briseyda Sinclair Work Phone: [facility] Work Phone: 01-10-2022 11:25-0400 Diastolic blood pressure 68 mm[Hg] Dr. Briseyda Sinclair Work Phone: [facility] Work Phone: 01-10-2022 11:25-0400 Heart rate 92 /min Dr. Briseyda Sinclair Work Phone: [facility] Work Phone: 01-10-2022 11:25-0400 Respiratory rate 14 /min Dr. Briseyda Sinclair Work Phone: [facility] Work Phone: 01-10-2022 11:25-0400 SaO2% (BldA) [Mass fraction] 95 % Dr. Briseyda Sinclair Work Phone: [facility] Work Phone: 01-10-2022 11:25-0400 Systolic blood pressure 104 mm[Hg] Dr. Briseyda Sinclair Work Phone: [facility] Work Phone: 01-08-2022 12:30-0400 Diastolic blood pressure 84 mm[Hg] Dr. Briseyda iSnclair Work Phone: [facility] Work Phone: 01-08-2022 12:30-0400 Systolic blood pressure 131 mm[Hg] Dr. Briseyda Sinclair Work Phone: [facility] Work Phone: 01-08-2022 12:00-0400 Body temperature 98 [degF] Dr. Briseyda Sinclair Work Phone: [facility] Work Phone: 01-08-2022 12:00-0400 Heart rate 96 /min Dr. Briseyda Sinclair Work Phone: [facility] Work Phone: 01-08-2022 12:00-0400 Respiratory rate 14 /min Dr. Briseyda Sinclair Work Phone: [facility] Work Phone: 01-08-2022 12:00-0400 SaO2% (BldA) [Mass fraction] 99 % Dr. Briseyda Sinclair Work Phone: [facility] Work Phone: 01-08-2022 08:19-0400 Body height 182.[address] Briseyda Sinclair Work Phone: [facility] Work Phone: 01-08-2022 08:19-0400 Body mass index (BMI) [Ratio] 20.6 kg/m2 Dr. Briseyda Sinclair Work Phone: [facility] Work Phone: 01-08-2022 08:19-0400 Body weight 68.[address] Briseyda Sinclair Work Phone: [facility] Work Phone: 01-04-2022 11:00-0400 Heart rate 92 /min Dr. Briseyda Sinclair Work Phone: [facility] Work Phone: 01-04-2022 08:27-0400 Body temperature 97.7 [degF] Dr. Briseyda Sinclair Work Phone: [facility] Work Phone: 01-04-2022 08:27-0400 Diastolic blood pressure 80 mm[Hg] Dr. Briseyda Sinclair Work Phone: [facility] Work Phone: 01-04-2022 08:27-0400 Respiratory rate 16 /min Dr. Briseyda Sinclair Work Phone: [facility] Work Phone: 01-04-2022 08:27-0400 SaO2% (BldA) [Mass fraction] 97 % Dr. Briseyda Sinclair Work Phone: [facility] Work Phone: 01-04-2022 08:27-0400 Systolic blood pressure 141 mm[Hg] Dr. Briseyda Sinclair Work Phone: [facility] Work Phone: 01-02-2022 17:08-0400 Body weight 70.[address] Briseyda Sinclair Work Phone: [facility] Work Phone: 01-02-2022 12:04-0400 Body mass index (BMI) [Ratio] 20.9 kg/m2 Dr. Briseyda Sinclair Work Phone: [facility] Work Phone: 01-02-2022 11:00-0400 Body temperature 97.8 [degF] Dr. Briseyda Sinclair Work Phone: [facility] Work Phone: 01-02-2022 11:00-0400 Diastolic blood pressure 76 mm[Hg] Dr. Briseyda Sinclair Work Phone: [facility] Work Phone: 01-02-2022 11:00-0400 Heart rate 94 /min Dr. Briseyda Sinclair Work Phone: [facility] Work Phone: 01-02-2022 11:00-0400 Respiratory rate 12 /min Dr. Briseyda Sinclair Work Phone: [facility] Work Phone: 01-02-2022 11:00-0400 SaO2% (BldA) [Mass fraction] 97 % Dr. Briseyda Sinclair Work Phone: [facility] Work Phone: 01-02-2022 11:00-0400 Systolic blood pressure 149 mm[Hg] Dr. Briseyda Sinclair Work Phone: [facility] Work Phone: 01-02-2022 06:53-0400 Body height 182.[address] Briseyda Sinclair Work Phone: [facility] Work Phone: 01-02-2022 06:53-0400 Body mass index (BMI) [Ratio] 21.4 kg/m2 Dr. Briseyda Sinclair Work Phone: [facility] Work Phone: 01-02-2022 06:53-0400 Body weight 71.[address] Briseyda Sinclair Work Phone: [facility] Work Phone: 09-20-2021 08:30-0500 Body mass index (BMI) [Ratio] 23.8 kg/m2 Dr. Briseyda Sinclair Work Phone: [facility] Work Phone: 09-20-2021 08:30-0500 Body temperature 98.5 [degF] Dr. Briseyda Sinclair Work Phone: [facility] Work Phone: 09-20-2021 08:30-0500 Body weight 79.[address] Briseyda Sinclair Work Phone: [facility] Work Phone: 09-20-2021 08:30-0500 Diastolic blood pressure 80 mm[Hg] Dr. Briseyda Sinclair Work Phone: [facility] Work Phone: 09-20-2021 08:30-0500 Heart rate 72 /min Dr. Briseyda Sinclair Work Phone: [facility] Work Phone: 09-20-2021 08:30-0500 Respiratory rate 14 /min Dr. Briseyda Sinclair Work Phone: [facility] Work Phone: 09-20-2021 08:30-0500 SaO2% (BldA) [Mass fraction] 99 % Dr. Briseyda Sinclair Work Phone: [facility] Work Phone: 09-20-2021 08:30-0500 Systolic blood pressure 132 mm[Hg] Dr. Briseyda Sinclair Work Phone: [facility] Work Phone: NEGATED: Highlighted [id number] 13:39-0400 Body height 182.88 cm Nisha Taylor [facility] Work Phone: NEGATED: Highlighted [id number] 13:39-0400 Body height 183 cm Nisha Taylor [facility] Work Phone: NEGATED: Highlighted [id number] 13:39-0400 Body mass index (BMI) [Ratio] 23.68 kg/m2 Nisha Taylor [facility] Work Phone: NEGATED: Highlighted [id number] 13:39-0400 Body weight 78.93 kg Nisha Taylor PHILOSOPHY PROFESSOR [facility] Work Phone: NEGATED: Highlighted [id number] 13:39-0400 Body weight 79 kg Nisha Taylor PHILOSOPHY PROFESSOR [facility] Work Phone: Encounters Encounter Date Encounter Type Care Provider Facility Start: 07-21-2025 End: 07-21-2025 Dr. Briseyda Sinclair MD -[facility] Work Phone: Start: 07-21-2025 End: 07-21-2025 ambulatory Briseyda Sinclair Facility:[facility] Start: 07-20-2025 End: 07-20-2025 Dr. Tanika Bear MD -[facility] Work Phone: Start: 07-20-2025 End: 07-20-2025 ambulatory Tanika Bear Facility:[facility] Start: 07-12-2025 End: 07-12-2025 Dr. Angelina Ruiz DO -Laboratory Work Phone: Start: 07-12-2025 End: 07-12-2025 ambulatory Briseyda Sinclair Facility:[facility] Start: 07-07-2025 End: 07-16-2025 Dr. Briseyda Sinclair MD -Nutritional Services Work Phone: Start: 07-07-2025 End: 07-16-2025 ambulatory Briseyda Sinclair Facility:[facility] Start: 07-06-2025 Dr. Briseyda gil MD -[facility] Start: 07-06-[address] Briseyda gil MD Work Phone: -[facility] Start: 06-30-2025 End: 06-30-2025 Dr. Briseyda Sinclair MD -[facility] Work Phone: Start: 06-30-2025 End: 06-30-[address] Briseyda Sinclair MD Work Phone: -[facility] Start: 06-29-2025 Encounter for other preprocedural examination Mookie Werner [facility] Start: 06-21-2025 End: 06-21-[address] Briseyda Sinclair MD Work Phone: -Laboratory Start: 06-21-2025 End: 06-21-2025 Dr. Briseyda Sinclair MD -Laboratory Work Phone: Start: 06-21-2025 End: 06-29-2025 Dr. Briseyda Sinclair MD -[facility] Work Phone: Start: 06-21-2025 End: 06-29-[address] Briseyda Sinclair MD Work Phone: [facility] Start: 06-21-2025 End: 06-21-2025 ambulatory [facility] Facility:[facility] Start: 06-15-2025 Dr. Fawad Bates MD -[facility] Work Phone: Start: 06-14-2025 Dr. Fawad Bates MD -[facility] Work Phone: Start: 06-14-2025 [facility] Start: 06-13-2025 Dr. Fawad Bates MD -[facility] Work Phone: Start: 06-12-2025 Dr. Fawad Bates MD -[facility] Work Phone: Start: 06-11-2025 Dr. Fawad Bates MD -[facility] Work Phone: Start: 06-10-2025 Dr. Candy Vo DO -[facility] Work Phone: Start: 06-09-2025 Dr. Candy Vo DO -[facility] Work Phone: Start: 06-08-2025 Dr. Candy Vo DO -[facility] Work Phone: Start: 06-07-2025 Dr. Merlin Costa DO [facility] Start: 06-07-2025 Dr. Candy Vo DO -[facility] Work Phone: Start: 06-06-2025 Dr. Richi Hope MD - [facility] Work Phone: Start: 06-05-2025 ambulatory [facility] Facility :[facility] Start: 06-05-2025 Dr. Jeffrey Lord MD -[facility] Start: 06-05-2025 ambulatory [facility] Facility :[facility] Start: 06-05-2025 End: 06-15-2025 Evaluation and management of inpatient Dr. Briseyda Sinclair MD Work Phone: -Progressive Care Unit Start: 06-05-2025 End: 06-15-2025 Dr. Fawad Bates MD -[facility] Work Phone: Start: 05-28-2025 ambulatory Mookie Debbi Facility:[facility] Start: 05-12-2025 End: 05-12-[address] Mookie Werner MD -[facility] Work Phone: Start: 05-12-2025 End: 05-12-2025 Dr. Mookie Werner MD -[facility] Work Phone: Start: 05-12-2025 End: 05-12-[address] Briseyda Sinclair MD Work Phone: -[facility] Start: 05-06-2025 End: 05-06-[address] Briseyda Sinclair MD Work Phone: -Laboratory Specimen Start: 05-06-2025 End: 05-06-[address] Briseyda Sinclair MD -Laboratory Specimen Work Phone: Start: 05-06-2025 End: 05-06-2025 Dr. Briseyda Sinclair MD -Laboratory Specimen Work Phone: Start: 05-06-2025 End: 05-06-2025 ambulatory Briseyda Sinclair Facility:[facility] Start: 05-03-2025 End: 05-03-[address] Briseyda Sinclair MD -[facility] Work Phone: Start: 05-03-2025 End: 05-03-2025 Dr. Briseyda Sinclair MD -[facility] Work Phone: Start: 05-03-2025 End: 05-03-[address] Briseyda Sinclair MD Work Phone: -[facility] Start: 04-28-2025 End: 04-28-[address] Cuate Garrison MD -[facility] Work Phone: Start: 04-28-2025 End: 04-28-2025 Dr. Cuate Garrison MD -[facility] Work Phone: Start: 04-28-2025 End: 04-28-[address] Briseyda Sinclair MD Work Phone: -[facility] Start: 04-12-2025 End: 04-12-2025 Patient encounter procedure Saira Sánchez NP-C -[facility] Work Phone: Start: 04-12-2025 End: 04-12-2025 Saira Sánchez NP-C -[facility] Work Phone: Start: 04-12-2025 End: 04-12-[address] Briseyda Sinclair MD Work Phone: -[facility] Start: 03-29-2025 End: 03-29-2025 Ravinder Vance DO -Emergency Departmen t Work Phone: Start: 03-29-2025 End: 03-29-2025 Emergency department patient visit Dr. 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 Start: 03-09-2025 ambulatory Mookie Debbi Facility:[facility] Start: 03-05-2025 End: 03-05-2025 Telephone encounter Simba Blackman MD Work Phone: [facility] Comment on above: Lab Orders (/) Start: 03-04-2025 End: 03-04-2025 ambulatory [facility] Start: 03-04-2025 End: 03-04-2025 Office outpatient new 45 minutes Simba Blackman MD Work Phone: [facility] Comment on above: Cerebral aneurysm (P rimary Dx); Cerebrovascular accident (CVA) due to stenosis of left carotid artery (HCC) Start: 03-04-2025 End: 06-03-2025 ambulatory [facility] Comment on above: Cerebral infarction due to unspecified occlusion or stenosis of left carotid arteries (HCC) (Primary Dx) Start: 02-19-2025 Non-patient / Non-visit Dr. Vira Garrison MD -[facility] Work Phone: Start: 02-19-2025 ambulatory Cuate Garrison Facility :[facility] Start: 02-19-2025 Registered Referred Saira Orourke -Cardiovascular Services Work Phone: Start: 02-19-2025 Dr. Cuate correa MD -[employer] [facility] Work Phone: Start: 02-17-2025 End: 03-25-2025 Telephone encounter Simba Blackman MD Work Phone: [facility] Comment on above: Referral Start: 02-11-2025 End: 02-11-2025 Patient encounter procedure Saira VEGA -[facility] Work Phone: Start: 02-11-2025 End: 02-11-[address] Briseyda Sinclair MD Work Phone: [facility] Work Phone: Start: 02-06-2025 End: 02-06-2025 Patient encounter procedure Brenda VEGA -[facility] Work Phone: Start: 02-06-2025 End: 02-06-2025 ambulatory Briseyda Sinclair Facility:[facility] Start: 02-01-2025 End: 02-01-[address] Mookie Werner MD -[facility] Work Phone: Start: 02-01-2025 End: 02-01-[address] Briseyda Sinclair MD Work Phone: [facility] Work Phone: Start: 01-27-2025 End: 01-27-[address] Briseyda Sinclair MD -[facility] Work Phone: Start: 01-27-2025 End: 01-27-[address] Briseyda Sinclair MD Work Phone: [facility] Work Phone: Start: 01-25-2025 End: 01-25-[address] Briseyda Sinclair MD Work Phone: [facility] Work Phone: Start: 01-25-2025 End: 01-25-[address] Dony Daily MD -Laboratory Work Phone: Start: 01-25-2025 End: 01-25-2025 ambulatory Briseyda Sinclair Facility:[facility] Start: 01-18-2025 End: 01-18-[address] Renae Rubalcava MD -Speech Therapy Work Phone: Start: 01-18-[address] Renae Rubalcava MD -Speech Therapy Work Phone: Start: 01-18-2025 Non-patient / Non-visit Dr. Marcie Sinclair MD -[facility] Start: 01-18-2025 End: 01-18-[address] Briseyda Sinclair MD Work Phone: -Speech Therapy Start: 01-14-2025 Non-patient / Non-visit Dr. Lidia Rubalcava MD -[facility] Work Phone: Start: 01-13-2025 Non-patient / Non-visit Dr. Lidia Rubalcava MD -[facility] Work Phone: Start: 01-13-2025 ambulatory Renae Rubalcava Facility :[facility] Start: 01-13-2025 End: 01-14-2025 Evaluation and management of inpatient Dr. Renae Rubalcava MD -Progressive Care Unit Work Phone: Start: 01-13-2025 ambulatory Mookie Werner Facility[facility] Start: 01-13-2025 Non-patient / Non-visit Dr. Mookie yun MD -[facility] Start: 01-13-2025 ambulatory Briseyda Sinclair Facility :[facility] Start: 01-13-2025 Non-patient / Non-visit Dr. Shawn LORENZO -[facility] Start: 01-12-2025 Non-patient / Non-visit Dr. Sharonda Kenney MD -[facility] Work Phone: Start: 01-12-2025 ambulatory Bhupinder Kenney Fac ility:[facility] Start: 12-31-2024 End: 12-31-[address] Briseyda Sinclair MD -Ultrasound, [facility] Work Phone: Start: 12-30-2024 End: 12-31-[address] Briseyda Sinclair MD Work Phone: [facility] Work Phone: Start: 12-30-2024 End: 12-30-[address] Briseyda Sinclair MD -Laboratory Work Phone: Start: 12-30-2024 End: 12-30-2024 ambulatory Briseyda Sinclair Facility:[facility] Start: 11-18-2024 End: 11-18-[address] Briseyda Sinclair MD Work Phone: [facility] Work Phone: Start: 11-18-2024 End: 11-18-[address] Briseyda Sinclair MD -Laboratory Work Phone: Start: 11-18-2024 End: 11-18-2024 ambulatory Briseyda Sinclair Facility:[facility] Start: 11-09-2024 End: 11-09-[address] Cuate Garrison MD -[facility] Work Phone: Start: 11-09-2024 End: 11-09-2024 ambulatory Briseydareji Sinclair Facility:[facility] Start: 10-13-2024 End: 10-13-2024 ambulatory Vito Dejesus Facility:[facility] Start: 10-13-2024 End: 10-13-[address] Vito Dejesus MD -Physical Therapy Work Phone: Start: 09-29-2024 End: 09-29-[address] Vito Dejesus MD -[facility] Work Phone: Start: 09-29-2024 End: 09-29-2024 ambulatory Briseydareji Sinclair Facility:[facility] Start: 08-31-2024 End: 08-31-[address] Briseyda Sinclair MD -[facility] Work Phone: Start: 08-31-2024 End: 08-31-2024 ambulatory Briseyda Dottie Facility:[facility] Start: 08-20-2024 End: 08-20-[address] Vito Dejessu MD -[facility] Work Phone: Start: 08-20-2024 End: 08-20-2024 ambulatory Vito Dejesus Facility:[facility] Start: 08-11-2024 End: 08-11-[address] Briseyda Sinclair MD -Laboratory Work Phone: Start: 08-10-2024 End: 08-10-[address] Briseyda Sinclair MD -[facility] Work Phone: Start: 08-10-2024 End: 08-11-2024 ambulatory Briseydareji Sinclair Facility:[facility] Start: 12-03-2023 Non-patient / Non-visit Dr. Marcie Sinclair Work Phone: [facility] Start: 12-03-2023 End: 12-03-2023 Admission to same day surgery center Dr. Briseyda Sinclair Work Phone: [facility]-End[facility] Work Phone: Start: 12-03-2023 End: 12-03-[address] Briseyda Sinclair Work Phone: [facility] Work Phone: Start: 11-22-2023 End: 11-22-2023 Patient encounter procedure Dr. Briseyda Sinclair Work Phone: [facility] Work Phone: Start: 11-19-2023 End: 11-19-[address] Briseyda Sinclair Work Phone: [facility] Work Phone: Start: 11-19-2023 End: 11-19-[address] Briseyda Sinclair Work Phone: [facility] Work Phone: Start: 11-06-2023 End: 11-06-[address] Briseyda Sinclair Work Phone: [facility] Work Phone: Start: 10-07-2023 End: 10-07-[address] Briseyda Sinclair Work Phone: [facility] Work Phone: Start: 08-29-2023 End: 08-29-[address] Briseyda Sinclair Work Phone: [facility] Work Phone: Start: 08-24-2023 End: 08-24-2023 Emergency department patient visit Dr. Briseyda Sinclair Work Phone: [facility] Work Phone: Start: 08-20-2023 End: 08-20-2023 Emergency department patient visit Dr. Briseyda Sinclair Work Phone: [facility] Work Phone: Start: 08-13-2023 End: 08-13-[address] Briseyda Sinclair Work Phone: [facility] Work Phone: Start: 05-23-2023 End: 05-23-[address] Briseyda Sinclair Work Phone: [facility] Work Phone: Start: 05-23-2023 End: 05-23-[address] Briseyda Sinclair Work Phone: [facility] Work Phone: Start: 05-22-2023 End: 05-22-[address] Briseyda Sinclair Work Phone: [facility] Work Phone: Start: 04-03-2023 End: 04-03-[address] [facility] Start: 04-01-2023 End: 04-01-[address] Briseyda Sinclair Work Phone: [facility] [place] Work Phone: Start: 03-07-2023 End: 03-07-[address] Briseyda Sinclair Work Phone: [facility] Work Phone: Start: 02-18-2023 Non-patient / Non-visit Dr. Marcie Sinclair Work Phone: [facility] Start: 02-18-2023 End: 02-18-[address] Briseyda Sinclair Work Phone: [facility] Work Phone: Start: 09-25-2022 End: 09-25-[address] Briseyda Sinclair Work Phone: [facility] Work Phone: Start: 09-25-2022 End: 09-25-[address] Briseyda Sinclair Work Phone: [facility], [facility] Start: 09-24-2022 End: 09-24-[address] Briseyda Sinclair Work Phone: [facility] Start: 06-04-2022 End: 06-04-[address] Briseyda Sinclair Work Phone: [facility] Work Phone: Start: 06-04-2022 End: 06-04-[address] Briseyda Sinclair Work Phone: [facility] Start: 06-01-2022 End: 06-01-2022 Admission to same day surgery center Dr. Briseyda Sinclair Work Phone: [facility]-[employer] Operator/Special Procedures Start: 05-28-2022 Non-patient / Non-visit Dr. Marcie Sinclair Work Phone: [facility] Start: 05-24-2022 End: 05-24-[address] Briseyda Sinclair Work Phone: [facility] Start: 05-16-2022 Non-patient / Non-visit Dr. Marcie Sinclair Work Phone: [facility] Start: 05-16-2022 End: 05-16-[address] Briseyda Sinclair Work Phone: [facility] Work Phone: Start: 05-16-2022 End: 05-16-[address] [facility] Start: 05-04-2022 End: 05-04-[address] Briseyda Sinclair Work Phone: [facility] Start: 04-16-2022 Non-patient / Non-visit Dr. Marcie Sinclair Work Phone: [facility] Start: 03-21-2022 End: 03-21-[address] Briseyda Sinclair Work Phone: [facility] Start: 03-02-2022 End: 03-02-[address] Briseyda Sinclair Work Phone: [facility] Start: 02-09-2022 Non-patient / Non-visit Dr. Marcie Sinclair Work Phone: [facility] Start: 02-09-2022 End: 02-09-[address] [facility] Start: 02-09-2022 End: 02-09-2022 ambulatory Maria Elena O'Betito PT [facility] Comment on above: Adhesive capsulitis of right shoulder Start: 02-02-2022 End: 02-02-2022 ambulatory Maria Elena O'Betito PT Work Phone: [facility] Comment on above: Adhesive capsulitis of right shoulder Start: 01-26-2022 End: 01-26-2022 ambulatory Maria Elena O'Betito PT Work Phone: [facility] Comment on above: Adhesive capsulitis of right shoulder Start: 01-24-2022 End: 01-24-[address] Briseyda Sinclair Work Phone: [facility] Internal [facility] Start: 01-19-2022 End: 01-19-2022 ambulatory Maria Elena O'Betito PT Work Phone: [facility] Comment on above: Adhesive capsulitis of right shoulder Start: 01-10-2022 End: 01-10-[address] Briseyda Sinclair Work Phone: [facility] Start: 01-08-2022 End: 01-08-2022 Emergency department patient visit Dr. Briseyda Sinclair Work Phone: [facility]Emergency Department Start: 01-04-2022 Non-patient / Non-visit Dr. Marcie Sinclair Work Phone: [facility] Start: 01-03-2022 Non-patient / Non-visit Dr. Marcie Sinclair Work Phone: [facility] Start: 01-02-2022 End: 01-04-2022 Evaluation and management of inpatient Dr. Briseyda Sinclair Work Phone: [facility]-Progressive Care Unit Start: 12-28-2021 End: 12-28-2021 ambulatory Maria Elena O'Betito PT Work Phone: [facility] Comment on above: Adhesive capsulitis of right shoulder (Primary Dx) Start: 12-27-2021 End: 12-27-2021 Pt evaluation Eloy Martinez MD Work Phone: [facility] Work Phone: Start: 09-25-2021 Non-patient / Non-visit Dr. Marcie Sinclair Work Phone: [facility] Internal [facility] Start: 09-20-2021 End: 09-20-[address] Briseyda Sinclair Work Phone: [facility] Start: 09-04-[address] Briseyda Sinclair Work Phone: [facility] Start: 09-04-[address] Briseyda Sinclair Work Phone: [facility] Procedures Date Procedure Procedure Detail Performing [...] Total cholesterol:HD L ratio measurement Dr. Briseyda Sinclair MD Work Phone: Start: 06-06-2025 Triglycerides measurement [...] Work Phone: Comment on above: Test Ordered: [id number] Stool CultureSalmonella/Shigella Screen Note: CB Final report Reference Range: .Result 1 Comment CB Reference Range: .No Salmonella or Shigella recovered.Campylobacter Culture Note: CB Final report Reference Range: .Result 1 Comment CB Reference Range: .No Campylobacter species isolated.E coli Shiga Toxin EIA Negative CB Reference Range: NegativePerformed at: [facility] [id number] Director: Ciaran Sethi PhD, Phone: [phone] Start: 03-29-2025 X-ray of chest, PA a [...] Care Activity Detail Author Start: 08-02-2025 ambulatory Facility:[facility] Start: 07-12-2025 -Laborator y Work Phone: Start: 07-07-2025 -Nutrition al Services Work Phone: Start: 07-06-2025 -[facility] Start: 06-15-2025 Patient discharge [facility] Start: 06-15-2025 Catheterization of vein [facility] Start: 06-15-2025 Oxygen therapy [facility] Start: 06-15-2025 Vital signs measurements [facility] Start: 06-14-2025 Hemodialysis care [facility] Start: 06-14-2025 [facility] Start: 06-14-2025 Care of hemodialysis equipment [facility] Start: 06-14-2025 Hemodialysis care [facility] Start: 06-14-2025 [facility] Start: 06-12-2025 Referral to general surgeon [facility] Start: 06-12-2025 Removal of urinary catheter [facility] Start: 06-11-2025 Care of hemodialysis equipment [facility] Start: 06-11-2025 Hemodialysis care [facility] Start: 06-11-2025 [facility] Start: 06-09-2025 Care of hemodialysis equipment [facility] Start: 06-09-2025 Hemodialysis care [facility] Start: 06-09-2025 End: 06-09-2025 [facility] Start: 06-08-2025 Referral for physica l therapy [facility] Start: 06-08-2025 Referral to occupati onal therapist [facility] Start: 06-08-2025 Care of hemodialysis equipment [facility] Start: 06-08-2025 Hemodialysis care [facility] Start: 06-08-2025 [facility] Start: 06-08-2025 Following clinical pathway protocol [facility] Start: 06-08-2025 Patient referral to dietitian [facility] Start: 06-07-2025 Application of intermittent pneumatic compression device [facility] Start: 06-07-2025 Care of hemodialysis equipment [facility] Start: 06-07-2025 Hemodialysis care [facility] Start: 06-07-2025 [facility] Start: 06-06-2025 [facility] Start: 06-06-2025 [facility] Start: 06-05-2025 End: 06-05-2025 [facility] Start: 06-05-2025 Following clinical pathway protocol [facility] Start: 06-05-2025 Assessment of risk o f venous thromboembolism [facility] Start: 06-05-2025 Care regimes management [facility] Start: 06-05-2025 Insertion of cathete r into peripheral vein [facility] Start: 06-05-2025 Introduction of urin jovi catheter [facility] Start: 06-05-2025 Measuring intake and output [facility] Start: 06-05-2025 Notification of physician [facility] Start: 06-05-2025 Providing care accor ding to standard [facility] Start: 06-05-2025 Provision of activit y privileges [facility] Start: 06-05-2025 Referral to national sales director [facility] Start: 06-05-2025 Referral to service [facility] Start: 06-05-2025 End: 06-05-2025 [facility] Start: 06-05-2025 Admission procedure [facility] Start: 06-05-2025 [facility] Start: 06-05-2025 Patient referral to dietitian [facility] Start: 05-17-2025 COVID-19 Vaccine ( season) COVID-19 Vaccine () [facility] Start: 05-17-2025 Influenza vaccination Influenza Vacc ine (#1) [facility] Start: 03-29-2025 [facility] Start: 03-29-2025 [facility] Start: 03-05-2025 End: 03-05-2026 PRU Test (P2Y12) PRU Test (P2Y12) Lab Routine Cerebrovascular accident (CVA) due to stenosis of left carotid artery (HCC) Expected: 03/05/2025 (Approximate), Expires: 03/05/2026 [facility] [employer] Work Phone: Comment on above: Expected: 03/05/2025 (Approximate), Expires: 03/05/2026 Start: 03-04-2025 End: 03-04-2026 PRU Test (P2Y12) PRU Test (P2Y12) Lab Routine Cerebral aneurysm Cerebrovascular accident (CVA) due to stenosis of left carotid artery (HCC) Expected: 03/04/2025 (Approximate), Expires: 03/04/2026 [facility] [place] Work Phone: Comment on above: Expected: 03/04/2025 (Approximate), Expires: 03/04/2026 Start: 02-01-2025 Patient referral [facility] Work Phone: Start: 01-18-2025 Patient referral [facility] Work Phone: Start: 01-14-2025 Patient discharge [facility] Start: 01-13-2025 [facility] Start: 01-13-2025 Admission procedure [facility] Start: 01-12-2025 Following clinical pathway protocol [facility] Start: 01-12-2025 Ambulation without limitation [facility] Start: 01-12-2025 Aspiration precautions [facility] Start: 01-12-2025 Assessment of risk o f venous thromboembolism [facility] Start: 01-12-2025 Cardiac monitoring [facility] Start: 01-12-2025 Care regimes management [facility] Start: 01-12-2025 Catheterization of vein [facility] Start: 01-12-2025 Consultation [facility] Start: 01-12-2025 Elevation of head of bed [facility] Start: 01-12-2025 Exercises [facility] Start: 01-12-2025 Insertion of cathete r into peripheral vein [facility] Start: 01-12-2025 Measuring intake and output [facility] Start: 01-12-2025 Notification of physician [facility] Start: 01-12-2025 Oxygen therapy [facility] Start: 01-12-2025 Patient referral to dietitian [facility] Start: 01-12-2025 Providing care accor ding to standard [facility] Start: 01-12-2025 Referral to occupati onal therapist [facility] Start: 01-12-2025 Referral to service [facility] Start: 01-12-2025 Speech therapy assessment [facility] Start: 01-12-2025 Tobacco use cessatio n education [facility] Start: 01-12-2025 End: 01-12-2025 [facility] Start: 01-12-2025 Vital signs measurements [facility] Start: 01-12-2025 Admission procedure [facility] Start: 01-12-2025 [facility] Start: 01-12-2025 [facility] Start: 08-20-2024 Patient referral [facility] Work Phone: Start: 05-17-2024 COVID-19 Vaccine ( season) COVID-19 Vaccine ( season) [facility] Start: 12-03-2023 Patient discharge [facility] Start: 08-24-2023 [facility] Start: 08-24-2023 Contact precautions [facility] Start: 08-20-2023 [facility] Start: 08-20-2023 [facility] Start: 05-17-2022 Influenza vaccination INFLUENZA (Sea son Ended) [facility] Start: 04-26-2022 COVID-19 VACCINE (4 - Booster for Pfizer series) COVID-19 VACCINE (4 - Booster for Pfizer series) [facility] Start: 01-15-2022 COVID-19 VACCINE (2 - Pfizer 3-dose series) COVID-19 VACCINE (2 - Pfizer 3-dose series) [facility] Start: 01-02-2022 Bacteria identified in Blood by Culture Blood Culture [facility] Work Phone: Start: 12-27-2021 End: 12-27-2021 Patient encounter procedure Appointment [facility] [place] [facility] Work Phone: Start: 09-16-2021 ADVANCE DIRECTIVE DISCUSSION ADVANCE DIRECTIVE DISCUSSION [facility] Start: 2015 PNEUMOCOCCAL: 65+ (1 - PCV) PNEUMOCOCCAL: 65+ (1 - PCV) [facility] Start: 2015 PNEUMOVAX AGE 65 AND OVER WITH 5YR LOOKBACK (#1) PNEUMOVAX AGE 65 AND OVER WITH 5YR LOOKBACK (#1) [facility] Start: 2000 SHINGRIX VACCINE (1 of 2) SHINGRIX VACCINE (1 of 2) [facility] Start: 2000 Zoster Vaccines (1 of 2) Zoster Vacc adele (1 of 2) [facility] Start: 1995 COLOGUARD (FIT-DNA) COLOGUARD (FIT-D NA) [facility] Start: 1995 Colonoscopy COLONOSCOPY [facility] Start: 1995 COLORECTAL CANCER SCREENING COLORECTAL CANCER SCREENING [facility] Start: [address] COLONOGRAPHY [facility] Start: 1995 DIABETES SCREEN DIABETES SCREEN [facility] Start: 1995 FECAL OCCULT BLOOD FECAL OCCULT BLOO D [facility] Start: 1995 SIGMOIDOSCOPY SIGMOIDOSCOPY [facility] Start: 1985 LIPID SCREEN LIPID SCREEN [facility] Start: 1969 DTaP/Tdap/Td Vaccine s (1 - Tdap) DTaP/Tdap/Td Vaccines (1 - Tdap) [facility] Start: 1969 Pneumococcal Vaccine : 50+ Years (1 of 2 - PCV) Pneumococcal Vaccine: 50+ Years (1 of 2 - PCV) [facility] Start: 1969 Urine microalbumin profile DTAP,TDAP,TD (1 - Tdap) [facility] Start: 1968 Diabetes: Estimated Glomerular Filtration Rate for [facility] Health Diabetes: Estimated Glomerular Filtration Rate for [facility] Health [facility] Start: 1968 Diabetes: Urine Albumin-Creatinine Ratio for [facility] Health Diabetes: Urine Albumin-Creatinine Ratio for [facility] Start: 1968 HEPATITIS C SCREENING HEPATITIS C [facility] Start: 1968 Hepatitis C screening Hepatitis C [facility] Start: 1962 Adult depression screening assessment DEPRESSION SCREENING [facility] Start: 1960 Diabetic foot examination Diabetes: Foot Exam [facility] Start: 1960 Glaucoma screening Diabetes: R etinopathy Screening [facility] Start: 1960 Preventive dental service Diabetes: Dental Exam [facility] Start: 1950 Hemoglobin A1c measurement Diabetes: Hemoglobin A1C [facility] Start: 1950 Lipid panel Lipid Panel [facility] Start: 1950 Medicare Annual Well ness (AWV) Medicare Annual Wellness (AWV) [facility] Start: 1950 Screening for malign ant neoplasm of colon [facility] Cardiac event recording [facility] CBC W Auto Different ial panel - Blood [facility] Colonoscopy [facility] Comprehensive metabo lic 1999 panel - Serum or Plasma [facility] Giardia lamblia Ag [Presence] in Stool by Immunoassay [facility] Hemoglobin A1c/Hemoglobin.total in Blood [facility] Lactoferrin [Presenc e] in Stool by Immunoassay [facility] Lipid 1996 panel - S azul or Plasma [facility] Nucleic acid assay [facility] Patient Education [facility] Work Phone: Patient referral [facility] Work Phone: [place] Carotid arteries [facility] Work Phone: [place] Carotid arteries [facility] [place] Carotid arteries [facility] Carotid arteries [facility] Carotid arteries [facility] Immunizations Immunization Date Immunization Notes Care Provider Newton riojas 06-30-2025 pneumococcal polysaccharide vaccine, [address] Briseyda Sinclair MD Work Phone: [facility] 06-22-2024 Seasonal trivalent influenza vaccine, adjuvanted, preservative free Dr. 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 Briseyda Sinclair MD Work Phone: [facility] 07-28-2023 RSV Adult Recombinan t (Arexvy) Dr. Briseyda Sinclair MD Work Phone: [facility] 07-14-2023 Covid (Spikevax) Dr. Briseyda hernandez MD Work Phone: [facility] 06-25-2022 Covid Pfizer Bivalen t Booster Dr. Briseyda Sinclair MD Work Phone: [facility] 06-06-2022 Influenza High-Dose Quadrivalent Dr. Briseyda Sinclair MD Work Phone: [facility] 12-25-2021 Covid (Pfizer) Dr. Briseyda albert MD Work Phone: [facility] Payers Date Payer Category Payer Self-pay [id number] 2024 Unknown [id number] 2017 [employer] [facility] - HMO [facility] [id number] 5 2017 Medicare MEDICARE PART A AND B [id number] [address] [place] [employer] [address] [facility] [place] MEDICARE SUPPLEMENT [id number] 2017-Present [id number] [place] [address] Indemnity [id number] .[id number] 2017 Unknown [id number] 2015 Medicare MEDICARE MEDICAR E A AND B [id number] 2015-Present [phone] [place] [address] Medicare [id number] .[id number] 2015 Medicare [id number] Unknown [id number] .2.462 Unknown [id number] 840.1.706250.3.579 .2.462 Unknown [id number] 2.16840.1.341730.3.579 .2.462 Unknown [id number] 2.16840.1.384638.3.579 .2.462 Unknown [id number] 2.16840.1.128901.3.579 .2.462 Unknown [id number] 2.16.840.1.807291.3.579 .2.462 Unknown [id number] 2.16.840.1.814558.3.579 .2.462 Unknown [id number] 2.16.840.1.548591.3.579 .2.462 Unknown [id number] 2.16.840.1.246614.3.579 .2.462 Unknown [id number] 2.16.840.1.432808.3.579 .2.462 Unknown [id number] 2.16.840.1.003184.3.579 .2.462 Unknown [id number] 2.16.840.1.929400.3.579 .2.462 Unknown [id number] 2.16.840.1.118180.3.579 .2.462 Unknown [id number] 2.16840.1.901251.3.579 .2.462 Unknown [id number] 2.16.840.1.593891.3.579 .2.462 Unknown [id number] 2.16.840.1.794998.3.579 .2.462 Unknown [id number] 2.16.840.1.677922.3.579 .2.462 Unknown [id number] 2.16.840.1.791937.3.579 .2.462 Unknown [id number] 2.16.840.1.035786.3.579 .2.462 Unknown [id number] 2.16.840.1.040860.3.579 .2.462 Unknown [id number] 2.16.840.1.775629.3.579 .2.462 Unknown [id number] 2.16.840.1.768542.3.579 .2.462 Unknown [id number] 2.16.840.1.048704.3.579 .2.462 Unknown [id number] 2.16.840.1.435596.3.579 .2.462 Unknown [id number] 2.16.840.1.379564.3.579 .2.462 Unknown [id number] 2.16.840.1.598103.3.579 .2.462 Unknown [id number] 2.16.840.1.156366.3.579 .2.462 Unknown [id number] 2.16.840.1.124823.3.579 .2.462 Unknown [id number] 2.16.840.1.859989.3.579 .2.462 Unknown [id number] 2.840.1.855902.3.579 .2.462 Unknown [id number] 2.840.1.215658.3.579 .2.462 Unknown [id number] 2.840.1.482845.3.579 .2.462 Unknown [id number] 2.840.1.442754.3.579 .2.462 Unknown [id number] 2.840.1.617190.3.579 .2.462 Unknown [id number] 2.840.1.277449.3.579 .2.462 Unknown [id number] 2.16840.1.822401.3.579 .2.462 Unknown [id number] 2.16.840.1.201868.3.579 .2.462 Unknown [id number] 2.16.840.1.052435.3.579 .2.462 Unknown [id number] 2.16.840.1.943967.3.579 .2.462 Unknown [id number] 2.16.840.1.346925.3.579 .2.462 Unknown [id number] 2.16.840.1.167756.3.579 .2.462 Unknown [id number] 2.16.840.1.436243.3.579 .2.462 Unknown [id number] 2.16.840.1.371220.3.579 .2.462 Unknown [id number] 2.16.840.1.916209.3.579 .2.462 Unknown [id number] 2.16.840.1.784258.3.579 .2.462 Unknown [id number] 2.16.840.1.949735.3.579 .2.462 Unknown [id number] 2.16.840.1.581985.3.579 .2.462 Unknown [id number] 2.16.840.1.941953.3.579 .2.462 Unknown [id number] 2.16.840.1.766596.3.579 .2.462 Unknown [id number] 2.16.840.1.324930.3.579 .2.462 Unknown [id number] 2.16.840.1.581848.3.579 .2.462 Unknown [id number] 2.16.840.1.942881.3.579 .2.462 Unknown [id number] 2.16.840.1.025231.3.579 .2.462 Unknown [id number] 2.16.840.1.147905.3.579 .2.462 Unknown [id number] 2.16.840.1.609780.3.579 .2.462 Unknown [id number] 2.16.840.1.709542.3.579 .2.462 Unknown [id number] 2.16.840.1.209892.3.579 .2.462 Unknown [id number] 2.16840.1.993342.3.579 .2.462 Unknown [id number] 2.16840.1.332627.3.579 .2.462 Social History Date Type Detail Facility Start: 01-02-2022 End: 11-29-2023 Tobacco smoking status KYIS Tobacco smoking consumption unknown [facility] Start: 1950 Sex Assigned At Male [facility] Start: 12-17-2021 End: 12-27-2021 Exposure to SARS-CoV-2 (event) Not sure [facility] Start: 08-10-2024 End: 06-05-2025 Tobacco smoking status NHIS Ex-smoker (finding) [facility] Start: 12-01-2024 End: 02-17-2025 Sex Male (finding) [facility] Start: 01-14-2025 Tobacco Use Tobacco Use [facility] End: 09-16-2000 History of tobacco use Current smoker [facility] End: 09-16-2000 History of tobacco use Cigarette Smoker [facility] Start: 03-04-2025 Tobacco use and exposure Smokeless tobacco non-user [facility] Start: 03-04-2025 History of Social function [facility] Start: 03-04-2025 Tobacco use panel [facility] Start: 1950 Sex assigned at Not on file [facility] Start: 03-01-2025 Gender identity Identifies as male gender (finding) [facility] NEGATED: Highlighted rowStart: 12-27-2021 End: 12-27-2021 Alcohol use Alcohol use [facility] Work Phone: NEGATED: Highlighted rowStart: 12-27-2021 End: 12-27-2021 Details of drug misuse behavior Details of drug misuse behavior [facility] Work Phone: NEGATED: Highlighted rowStart: 12-27-2021 End: 12-27-2021 Assertion Former smoker [facility] Work Phone: Medical Equipment Procedure [...] 04-03-2023 Pen Needle, Diabetic (Comfort Ez Pen Butler) 32 gauge x 1/4 needle Start: 10-23-2023 Blood Sugar Diagnostic (Onetouch Verio Test Strips) strip Start: 02-13-2022 End: 02-14-2022 Blood Sugar Diagnostic (Onetouch Verio Test Strips) strip Start: 02-14-2022 End: 04-03-2023 Pen Needle, Diabetic (Comfort Ez Pen Butler) 32 gauge x 1/4 needle Start: 10-23-2023 [...] 04-03-2023 Pen Needle, Diabetic (Comfort Ez Pen Butler) 32 gauge x 1/4 needle Start: 10-23-2023 Blood Sugar Diagnostic (Onetouch Verio Test Strips) strip Start: 02-13-2022 End: 02-14-2022 Blood Sugar Diagnostic (Onetouch Verio Test Strips) strip Start: 02-14-2022 End: 04-03-2023 Pen Needle, Diabetic (Comfort Ez Pen Butler) 32 gauge x 1/4 needle Start: 10-23-2023 [...] 05-04-2024 Pen Needle, Diabetic (Comfort Ez Pen Butler) 32 gauge x 1/4 needle Start: 10-23-2023 Blood Sugar Diagnostic (Onetouch Verio Test Strips) strip Start: 02-13-2022 End: 02-14-2022 Blood Sugar Diagnostic (Onetouch Verio Test Strips) strip Start: 02-14-2022 End: 04-03-2023 Blood Sugar Diagnostic (Onetouch Verio Test Strips) strip Start: 04-03-2023 End: 05-04-2024 Lancets (Onetouc h Delica Plus Lancet) 33 gauge misc Start: 05-04-2024 End: 05-04-2024 Pen Needle, Diabetic (Comfort Ez Pen Butler) 32 gauge x 1/4 needle Start: 10-23-2023 [...] 05-04-2024 Pen Needle, Diabetic (Comfort Ez Pen Butler) 32 gauge x 1/4 needle Start: 01-04-2025 Blood Sugar Diagnostic (Onetouch Verio Test Strips) strip Start: 02-13-2022 End: 02-14-2022 Blood Sugar Diagnostic (Onetouch Verio Test Strips) strip Start: 02-14-2022 End: 04-03-2023 Blood Sugar Diagnostic (Onetouch Verio Test Strips) strip Start: 04-03-2023 End: 05-04-2024 Lancets (Onetouc h Delica Plus Lancet) 33 gauge misc Start: 05-04-2024 End: 05-04-2024 Pen Needle, Diabetic (Comfort Ez Pen Butler) 32 gauge x 1/4 needle Start: 10-23-2023 End: 10-23-2023 Pen Needle, Diabetic (Comfort Ez Pen Butler) 32 gauge x 1/4 needle Start: 10-23-2023 [...] 05-04-2024 Pen Needle, Diabetic (Comfort Ez Pen Butler) 32 gauge x 1/4 needle Start: 01-04-2025 Blood Sugar Diagnostic (Onetouch Verio Test Strips) strip Start: 02-13-2022 End: 02-14-2022 Blood Sugar Diagnostic (Onetouch Verio Test Strips) strip Start: 02-14-2022 End: 04-03-2023 Blood Sugar Diagnostic (Onetouch Verio Test Strips) strip Start: 04-03-2023 End: 05-04-2024 Lancets (Onetouc h Delica Plus Lancet) 33 gauge misc Start: 05-04-2024 End: 05-04-2024 Pen Needle, Diabetic (Comfort Ez Pen Butler) 32 gauge x 1/4 needle Start: 10-23-2023 End: 10-23-2023 Pen Needle, Diabetic (Comfort Ez Pen Butler) 32 gauge x 1/4 needle Start: 10-23-2023 [...] 05-04-2024 Pen Needle, Diabetic (Comfort Ez Pen Butler) 32 gauge x 1/4 needle Start: 01-04-2025 Blood Sugar Diagnostic (Onetouch Verio Test Strips) strip Start: 02-13-2022 End: 02-14-2022 Blood Sugar Diagnostic (Onetouch Verio Test Strips) strip Start: 02-14-2022 End: 04-03-2023 Blood Sugar Diagnostic (Onetouch Verio Test Strips) strip Start: 04-03-2023 End: 05-04-2024 Lancets (Onetouc h Delica Plus Lancet) 33 gauge misc Start: 05-04-2024 End: 05-04-2024 Pen Needle, Diabetic (Comfort Ez Pen Butler) 32 gauge x 1/4 needle Start: 10-23-2023 End: 10-23-2023 Pen Needle, Diabetic (Comfort Ez Pen Butler) 32 gauge x 1/4 needle Start: 10-23-2023 [...] 05-04-2024 Pen Needle, Diabetic (Comfort Ez Pen Butler) 32 gauge x 1/4 needle Start: 01-04-2025 Blood Sugar Diagnostic (Onetouch Verio Test Strips) strip Start: 02-13-2022 End: 02-14-2022 Blood Sugar Diagnostic (Onetouch Verio Test Strips) strip Start: 02-14-2022 End: 04-03-2023 Blood Sugar Diagnostic (Onetouch Verio Test Strips) strip Start: 04-03-2023 End: 05-04-2024 Lancets (Onetouc h Delica Plus Lancet) 33 gauge misc Start: 05-04-2024 End: 05-04-2024 Pen Needle, Diabetic (Comfort Ez Pen Butler) 32 gauge x 1/4 needle Start: 10-23-2023 End: 10-23-2023 Pen Needle, Diabetic (Comfort Ez Pen Butler) 32 gauge x 1/4 needle Start: 10-23-2023 [...] 05-04-2024 Pen Needle, Diabetic (Comfort Ez Pen Butler) 32 gauge x 1/4 needle Start: 01-04-2025 Blood Sugar Diagnostic (Onetouch Verio Test Strips) strip Start: 02-13-2022 End: 02-14-2022 Blood Sugar Diagnostic (Onetouch Verio Test Strips) strip Start: 02-14-2022 End: 04-03-2023 Blood Sugar Diagnostic (Onetouch Verio Test Strips) strip Start: 04-03-2023 End: 05-04-2024 Lancets (Onetouc h Delica Plus Lancet) 33 gauge misc Start: 05-04-2024 End: 05-04-2024 Pen Needle, Diabetic (Comfort Ez Pen Butler) 32 gauge x 1/4 needle Start: 10-23-2023 End: 10-23-2023 Pen Needle, Diabetic (Comfort Ez Pen Butler) 32 gauge x 1/4 needle Start: 10-23-2023 [...] 05-04-2024 Pen Needle, Diabetic (Comfort Ez Pen Butler) 32 gauge x 1/4 needle Start: 01-04-2025 Blood Sugar Diagnostic (Onetouch Verio Test Strips) strip Start: 02-13-2022 End: 02-14-2022 Blood Sugar Diagnostic (Onetouch Verio Test Strips) strip Start: 02-14-2022 End: 04-03-2023 Blood Sugar Diagnostic (Onetouch Verio Test Strips) strip Start: 04-03-2023 End: 05-04-2024 Lancets (Onetouc h Delica Plus Lancet) 33 gauge misc Start: 05-04-2024 End: 05-04-2024 Pen Needle, Diabetic (Comfort Ez Pen Butler) 32 gauge x 1/4 needle Start: 10-23-2023 End: 10-23-2023 Pen Needle, Diabetic (Comfort Ez Pen Butler) 32 gauge x 1/4 needle Start: 10-23-2023 [...] 05-04-2024 Pen Needle, Diabetic (Comfort Ez Pen Butler) 32 gauge x 1/4 needle Start: 01-04-2025 [...] 05-04-2024 Pen Needle, Diabetic (Comfort Ez Pen Butler) 32 gauge x 1/4 needle Start: 10-23-2023 End: 10-23-2023 Pen Needle, Diabetic (Comfort Ez Pen Butler) 32 gauge x 1/4 needle Start: 10-23-2023 [...] 05-04-2024 Pen Needle, Diabetic (Comfort Ez Pen Butler) 32 gauge x 1/4 needle Start: 01-04-2025 [...] 05-04-2024 Pen Needle, Diabetic (Comfort Ez Pen Butler) 32 gauge x 1/4 needle Start: 10-23-2023 End: 10-23-2023 Pen Needle, Diabetic (Comfort Ez Pen Butler) 32 gauge x 1/4 needle Start: 10-23-2023 [...] 05-04-2024 Pen Needle, Diabetic (Comfort Ez Pen Butler) 32 gauge x 1/4 needle Start: 01-04-2025 [...] 05-04-2024 Pen Needle, Diabetic (Comfort Ez Pen Butler) 32 gauge x 1/4 needle Start: 10-23-2023 End: 10-23-2023 Pen Needle, Diabetic (Comfort Ez Pen Butler) 32 gauge x 1/4 needle Start: 10-23-2023 [...] 05-04-2024 Pen Needle, Diabetic (Comfort Ez Pen Butler) 32 gauge x 1/4 needle Start: 01-04-2025 [...] 05-04-2024 Pen Needle, Diabetic (Comfort Ez Pen Butler) 32 gauge x 1/4 needle Start: 10-23-2023 End: 10-23-2023 Pen Needle, Diabetic (Comfort Ez Pen Butler) 32 gauge x 1/4 needle Start: 10-23-2023 [...] 05-04-2024 Pen Needle, Diabetic (Comfort Ez Pen Butler) 32 gauge x 1/4 needle Start: 01-04-2025 [...] 05-04-2024 Pen Needle, Diabetic (Comfort Ez Pen Butler) 32 gauge x 1/4 needle Start: 10-23-2023 End: 10-23-2023 Pen Needle, Diabetic (Comfort Ez Pen Butler) 32 gauge x 1/4 needle Start: 10-23-2023 [...] 05-04-2024 Pen Needle, Diabetic (Comfort Ez Pen Butler) 32 gauge x 1/4 needle Start: 01-04-2025 [...] 05-04-2024 Pen Needle, Diabetic (Comfort Ez Pen Butler) 32 gauge x 1/4 needle Start: 10-23-2023 End: 10-23-2023 Pen Needle, Diabetic (Comfort Ez Pen Butler) 32 gauge x 1/4 needle Start: 10-23-2023 [...] 05-04-2024 Pen Needle, Diabetic (Comfort Ez Pen Butler) 32 gauge x 1/4 needle Start: 01-04-2025 [...] 05-04-2024 Pen Needle, Diabetic (Comfort Ez Pen Butler) 32 gauge x 1/4 needle Start: 10-23-2023 End: 10-23-2023 Pen Needle, Diabetic (Comfort Ez Pen Butler) 32 gauge x 1/4 needle Start: 10-23-2023 [...] Assessment Result Facility 06-15-2025 Functional status Ambulates [facility] Work Phone: 01-14-2025 Functional status Chair [facility] Work Phone: 01-13-2025 Functional status None [facility] Work Phone: 01-04-2022 Functional status Ambulates;Up ad jesusita [facility] Work Phone: Mental Status Date Assessment Result Facility 06-15-2025 Cognitive function Voice/Name [facility] Work Phone: 06-15-2025 Cognitive function Appropriate [facility] Work Phone: 03-29-2025 Cognitive function Voice/Name [facility] Work Phone: 01-14-2025 Cognitive function Voice/Name [facility] Work Phone: 12-03-2023 Cognitive function Voice/Name [facility] Work Phone: 08-20-2023 Cognitive function Level Of Cons ciousness Awake;Alert;Appropriate [facility] Work Phone: 01-08-2022 Cognitive function Level Of Cons ciousness Awake;Alert;Appropriate;Follo ws Commands;Responds to vocal stimuli [facility] Work Phone: 01-03-2022 Cognitive function Voice/Name [facility] Work Phone: 01-02-2022 Cognitive function Level Of Cons ciousness Awake;Alert;Follows Commands [facility] Work Phone: Clinical Notes 08-16-2001 to 06-22-2025 Note Date & Type Note Facility 06-22-2025 Progress note Note Date/Time June 22, 2025 9:43am [facility] [address] [place] [address] OFFICE VISIT Date of Service: 06/21/25 MR#: [id number] Acct: [id number] Name: COLEMAN DAVIES Rep #: [id number] : 1950 Provider: Dr. 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 Patient was apparently at [facility], about 10-11 days total. He presented to [...] him. He had followed with endocrinology in [place] however since being here, he had elected to follow with internal medicine as he stated that the barge pilot did not have a good reason for [...] will try and reach out to his national sales director once the labs are available. He does [...] be resumed. He has been arranged for Damballa vamshi 3 device for closer monitoring. He [...] Cosigner Signature: Date (if applicable) CC: ~ [facility] Work Phone: 1(192) 680-434809-30-2025 Discharge summary Author Fawad Bates [facility] Note Date/Time June 15, 2025 2:02pm [facility] Medical Records Department [address] [place] [address] Discharge Summary 06/15/25 1356 MR#: [id number] Acct: [id number] Name: COLEMAN DAVIES Rep #:[id number] : 1950 74 From: Fawad Hall PCP: Dr. Briseyda Sinclair MD Status:ADM IN Location: [place] [address] Providers Date of Admission: 06/05/25 Date of [...] diabetes mellitus without complications Qualifiers: Diabetes mellitus intermediate insulin use: without watermelon inspector use Diabetesmellitus complication status: with circulatory complication [...] fluctuates, today 7.70. BUN fluctuates between 70-90. Privacy Analyst report reviewed. Patient urine output is good. Hemodialysis today. Serologies are negative. Plan for kidney biopsy on Saturday. Likely tentative discharge on Saturday. 06/12: Patient had about 2500 mL of urine output. No significant fluid removal on dialysis here yesterday but mainly for electrolyte support. Discussed with the national sales director we will surgery. Plan for tunneled dialysis catheter and renalbiopsy on Saturday informed by the patient and his . Surgery consulted for tunneled dialysis catheter. 06/13: Good urine output. Bolaños catheter was removed yesterday. Was evaluated by national sales director. Plan for right IJ dialysis catheter removal [...] on as an outpatient. Discussed with the national sales director. Kidney biopsy will be discussed when report available as an outpatient by the national sales director Anion gap metabolic acidosis - Much improved [...] (1,000 unit) tablet 25 mcg PO BID [id number]/04/21 lancets 33 gauge (PureWRXTouch Delica Plus Lancet) #100 ea 05/04/24 atorvastatin [...] 32 gauge x 1/4 (Comfort EZ Pen Butler) #100 ea 01/04/25 finasteride 5 mg tablet 5 mg PO QHS PROSTATE 01/27/25 blood sugar diagnostic (PureWRXTouch Verio test strips) #100 ea 02/24/25 glimepiride [...] wants to go home. Discussed with the national sales director. Discussed with the patient and regarding discharge [...] Neut % (Auto) 59.3, Lymph % (Auto) 19.8,Breathitt % (Auto) 13.2 H, Eos % (Auto) [...] left inferior pole renal biopsy. Reading Location: [place] [address] D/C Instructions Weight Bearing Status: Weight bearing [...] Vo; Tanika Bear Instructions Patient Instructions: RAD dispatch supervisor Instructions for Kidney Biopsy, RAD RN Procedural Sedation Discharge Orders/Prescriptions Prescriptions: New buspirone 10 mg tablet 10 mg PO TID 30 Days Qty: 90 0RF sennosides 8.6 mg tablet 17.2 mg PO BID PRN PRN (Reason: constipation) Qty: 0 0RF Rx Instructions: Idcu-ftm-qyjrflf. 2 tablet twice daily as needed for [...] (DME) pen needle, diabetic [Comfort EZ Pen Butler] 32 gauge x 1/4 needle See Rx [...] MD [Primary Care Provider, Internal Medicine - [facility]] Disposition Disposition (needs filled in before D/C Order can be placed): Home, Self Care Charges/Coding Visit Charges Inpatient E&M: 35104 Disch Hosp >30min 06/15/25 1402 <Electronically signed by Fawad Bates MD> Cosigner Signature (if applicable): CC: Dr. Yohannes Santiago MD; Dr. Briseyda Sinclair MD; Dr. Fawad Bates MD~ Signed [facility] Work Phone: 1(532) 550-179109-30-2025 Discharge summary Author Fawad Bates [facility] Note Date/Time June 15, 2025 1:56pm [facility] Medical Records Department [address] [place] [address] Instructions for Home/Discharge Instructions 06/15/25 1052 MR#: [id number] Acct: [id number] Name: COLEMAN DAVIES Rep #:[id number] : 1950 74 From: Fawad Hall PCP: [...] Vo; Tanika Bear Instructions Patient Instructions: RAD dispatch supervisor Instructions for Kidney Biopsy, RAD RN Procedural Sedation Discharge Orders/Prescriptions Prescriptions: New buspirone 10 mg tablet 10 mg PO TID 30 Days Qty: 90 0RF sennosides 8.6 mg tablet 17.2 mg PO BID PRN PRN (Reason: constipation) Qty: 0 0RF Rx Instructions: Mhcw-nkl-tjgvqik. 2 tablet twice daily as needed for [...] (DME) pen needle, diabetic [Comfort EZ Pen Butler] 32 gauge x 1/4 needle See Rx [...] MD [Primary Care Provider, Internal Medicine - [facility]] Disposition Disposition (needs filled in before D/C Order can be placed): Home, Self Care 06/15/25 1356<Electronically signed by Fawad Bates MD>Fawad Bates MD CC: Dr. Tabby Zuniga MD; Dr. Richi Hope MD; Dr. Yohannes Santiago MD; Dr. Candy Vo DO; Dr. Briseyda Sinclair MD; Dr. Tanika Bear MD ~ Signed [facility] Work Phone: [phone]) 667-399209-30-2025 Progress note Author Yohannes Santiago [facility] Note Date/Time June 15, 2025 12:52pm [facility] Medical Records Department [address] [place] [address] Progress Note - Nephrology 06/15/25 1251 MR#: [id number] Acct: [id number] Name: COLEMAN DAVIES Rep #:[id number] : 1950 74 From: Yohannes doran MD PCP: Dr. Briseyda Sinclair MD Status:ADM IN Location: [place] [address] Subjective Subjective s/p biopsy Objective Data Objective [...] Neut % (Auto) 59.3, Lymph % (Auto) 19.8,Breathitt % (Auto) 13.2 H, Eos % (Auto) [...] right-sided IJ catheter. No pneumothorax. Reading Location: [facility]-[address] 06/15/25 09:00 IMPRESSION: Successful CT-guided left inferior pole renal biopsy. Reading Location: [facility]- Rhythm Strip Rhythm Strip: Sinus Rhythm [...] Type 2 diabetes mellitus: QUALIFIERS: Diabetes mellitus intermediate insulin use: without watermelon inspector use Diabetes mellitus complication status: with circulatory [...] hydronephrosis Was not particularly hypotensive. Denies any yrrz-hqu-zzuuciq supplements. He started taking a probiotic due [...] Discussed with family. Discussed with hospitalist. 06/15/25 2472 <Electronically signed by Yohannes Santiago MD> Cosigner Signature (if applicable): CC: ~ Signed [facility] Work Phone: 1(889) 540-332209-30-2025 Hospital Discharge instructionsAdditional Instructions Date of Discharge: 06/15/25[facility] Work Phone: 1(681) 188-283109-30-2025 [facility]09-30-2025 Radiology Diagnostic study [facility]09-29-2025 Progress note Author Fawad Bates [facility] Note Date/Time June 14, 2025 5:10pm [facility] Medical Records Department [address] [place] [id number] Progress Note - Hospitalist 06/14/25 1706 MR#: [id number] Acct: [id number] Name: COLEMAN DAVIES Rep #:[id number] : 1950 74 From: Fawad Hall PCP: Dr. Briseyda Sinclair MD Status:ADM IN Location: [place] [address] Reason for Visit Chief Complaint: Intractable N/V [...] (Auto) 62.2, Lymph % (Auto) 17.6 L, Breathitt % (Auto) 12.5 H, Eos % (Auto) [...] right-sided IJ catheter. No pneumothorax. Reading Location: [place] [address] Rhythm Strip Rhythm Strip: Sinus Rhythm Rate: [...] fluctuates, today 7.70. BUN fluctuates between 70-90. Privacy Analyst report reviewed. Patient urine output is good. Hemodialysis today. Serologies are negative. Plan for kidney biopsy on Saturday. Likely tentative discharge on Saturday. 06/12: Patient had about 2500 mL of urine output. No significant fluid removal on dialysis here yesterday but mainly for electrolyte support. Discussed with the national sales director we will surgery. Plan for tunneled dialysis catheter and renalbiopsy on Saturday informed by the patient and his . Surgery consulted for tunneled dialysis catheter. 06/13: Good urine output. Bolaños catheter was removed yesterday. Was evaluated by national sales director. Plan for right IJ dialysis catheter removal [...] Full code Charges/Coding Visit Charges Inpatient E&M: 02740 Subs Hosp L2 06/14/25 1710 <Electronically signed by Fawad Bates MD> Cosigner Signature (if applicable): CC: ~ Signed [facility] Work Phone: 1(472) 536-707609-29-2025 Procedure [facility] 06-14-2025 Procedure [facility]09-29-2025 Consult note Author Geovanni Pathak [facility] Note Date/Time June 15, 2025 4:18pm [facility] Medical Records Department [address] [place] [address] Anesthesia Postop Eval II 06/14/25 1312 MR#: [id number] Acct: [id number] Name: COLEMAN DAVIES Rep #:[id number] : 1950 74 From: Geovanni Hall PCP: Dr. Briseyda Sinclair MD Status:ADM IN Y Race: C Location: [place] [address] 2-1 Anesthesia Postop Eval I Sum Postop Eval Completion status Anesthesia document: Postop Eval 1 completed: Yes Anesthesia Postop Eval I Summary Anesthesia Postop Eval I Summary: Anesthesia Postop Eval I: Assessment Summary Airway patent Yes 06/14/25 12:50 CEMENT MASON APPRENTICE.TDOB Spontaneous unlabored Yes 06/14/25 12:50 CEMENT MASON APPRENTICE.TDOB respirations Mental status nausea No 06/14/25 12:50 CEMENT MASON APPRENTICE.TDOB Vomiting No 06/14/25 12:50 CEMENT MASON APPRENTICE.TDOB Anesthesia Postop Eval I: Fluid Summary Crystalloid volume administer 200 06/14/25 12:50 CEMENT MASON APPRENTICE.TDOB (ml) Colloids volume administered ( ml) Blood Product volume administered (ml) Total IV fluid infused 200 06/14/25 12:50 CEMENT MASON APPRENTICE.TDOB Anesthesia Postop Eval I: Summary Notes Anesthesia Complication No 06/14/25 12:50 CEMENT MASON APPRENTICE.TDOB Anesthesia Complication Comment: Post-operative progress note Anesthesia: Postop Eval II Evaluation Mental status: Awake and Calm Pain Level: 1 nausea: No Vomiting: No Complications Anesthesia Complication: No 06/14/25 1312 <Electronically signed by Geovanni Pathak MD> Date _ [facility] Pathak [facility] Signature: Date CC: ~ Signed [facility] Work Phone: 1(562) 539-237109-29-2025 Radiology Diagnostic study [facility]09-29-2025 Consult note Author Geovanni Pathak [facility] Note Date/Time June 14, 2025 10:46am [facility] Medical Records Department [address] [place] [address] Pre-Anesthesia Evaluation 06/14/25 1029 MR#: [id number] Acct: [id number] Name: COLEMAN DAVIES Rep #:[id number] : 1950 74 From: Geovanni Hall PCP: Dr. Briseyda Sinclair MD Status:ADM IN Y Race: C Location: [place] [address] 2-1 ASA Classification* ASA Classification ASA Classification: [...] Dialysis catheter Anesthesia History Anesthesia History - staff nurse: Anesthesia History - staff nurse Hx Hospitalization Yes: 12/2024 TIA 05/28/25 08:19 [...] take am of surgery PONV PONV - staff nurse: PONV - staff nurse Female HX of Motion Sickness HX of N/V After Surgery Non-Smoker Duration of Surgery greater than 60 minutes Number of Risk Factors PONV Score Height & Weight Height & Weight: Anesthesia: Height & Weight Height 6 ft 06/14/25 10:05 Weight: 77.467 kg 06/14/25 10:05 Body Mass Index (BMI) 23.1 06/14/25 10:05 Respiratory Assessment Respiratory Assessment - staff nurse: Respiratory Tract Infection Hx - staff nurse Hx Respiratory Tract Infection No 06/13/25 20:23 STOP Sleep Apnea STOP Sleep Apnea - staff nurse: STOP Sleep Apnea - staff nurse Hx Hypertension Yes: CONTROLLED WITH MEDS 06/10/25 [...] Tobacco Use History Tobacco Use History - staff nurse: Tobacco Use History - staff nurse Tobacco Use Cigarettes 04/16/25 13:29 Smoking Status Former smoker 06/05/25 07:50 Hx Tobacco Use No 06/05/25 07:50 Years Smoking Packs Smoked per Day Smoking Cessation Date was No - quit smoking greater 06/05/25 07:50 within the last 15 years than 15 years ago Hx Smoking Cessation Date 08/16/01 06/05/25 07:50 Hx Smoking Cessation No 06/05/25 07:50 Counseling Hematologic Medial History Hematologic Hx - staff nurse: Hematologic Medical Hx - energy assistant Hx of Blood Transfusion No 06/05/25 07:50 [...] confused, unrespo /Reproduction History /Reproductive History - staff nurse: /Reproductive Hx- staff nurse Hx Now No 06/13/25 20:23 Gestational Age [...] mls @ 15 mls/hr 06/08/25 06:10 IV .[id number] PRN Saline Flush Sodium Chloride 250 mls @ 15 mls/hr 06/08/25 06:10 IV .[id number] PRN Additional IVPB Infusion Cefazolin Sodium 2 [...] 100 Unit/Ml Insuln.Pen SC Not Given ACHS [facility] Protocol Insulin Human Lispro 8 unit 06/12/25 16:00 06/14/25 06:43 Insulin Lispro 100 Unit/Ml Insuln.Pen SC Not Given TIDAC [facility] Isosorbide Mononitrate 30 mg 06/07/25 22:00 [...] coronary artery (~08/28/01) Atherosclerotic heart disease of [place] coronary artery without angina pectoris Home Medications [...] Unkno wn Rx 09/19 (Comfort EZ Pen Butler) finasteride 5 mg tablet 5 mg PO [...] MD Cosigner Signature: Date CC: ~ Signed [facility] Work Phone: 1(498) 498-605809-29-2025 Progress note Author Pamelairasema Antunez [facility] Health Note Date/Time June 14, 2025 10:17am [facility] Medical Records Department [address] [place] [address] Progress Note - Surgery 06/14/25 1012 MR#: [id number] Acct: [id number] Name: COLEMAN DAVIES Rep #:[id number] : 1950 74 From: Pamela BACON PA-C PCP: Dr. Briseyda Sinclair MD Status:ADM IN Location: [place] [id number]- [id number] Subjective Subjective Patient evaluated resting comfortably [...] (Auto) 62.2, Lymph % (Auto) 17.6 L, Breathitt % (Auto) 12.5 H, Eos % (Auto) [...] this patient Charges/Coding Visit Charges Inpatient E&M: 97052 Subs Hosp L1 (pre-op; no charge) 06/14/25 1017 <Electronically signed by Pamela BACON PA-C> Cosigner Signature (if applicable): CC: ~ Signed [facility] Work Phone: [phone] 352-824509-29-2025 Consult note Author [facility] Note Date/Time June 14, 2025 10:12am [facility] Medical Records Department [address] [place] [address] Consultation - Surgical 06/13/25 0900 MR#: [id number] Acct: [id number] Name: COLEMAN DAVIES Rep #:[id number] : 1950 74 From: Tanika Bear MD PCP: Dr. Briseyda Sinclair MD Status:ADM IN Location: [place] [address] Assessment & Plan Assessment/Plan (1) Acute renal [...] question this time. Tanika Bear M.D. Pager: [phone] [facility] [address] [place] [address], [address] [place] [address] Office: [phone] HPI Consult Data Date of Consult: 06/14/25 [...] to coming inwith acute kidney injury, hyperkalemia. [facility] Medical History Cancer Alcohol use History of [...] coronary artery (~08/28/01) Atherosclerotic heart disease of [place] coronary artery without angina pectoris Home Medications [...] Unkno wn Rx 09/19 (Comfort EZ [employer] [place]) finasteride 5 mg tablet 5 mg PO [...] Ectopy: None Charges/Coding Visit Charges Inpatient E&M: 78007 Init Hosp L3 06/14/25 1012 <Electronically signed by Tanika Bear MD> Cosigner Signature (if applicable): CC: Dr. Briseyda Sinclair MD~ Signed [facility] Work Phone: 1(675) 310-123509-28-2025 Progress note Author Luis Alberto Oro [facility] Note Date/Time June 13, 2025 3:14pm [facility] Medical Records Department [address] [place] [address] Progress Note - Nephrology 06/13/25 1513 MR#: [id number] Acct: [id number] Name: COLEMAN DAVIES Rep #:[id number] : 1950 74 From: Luis Alberto Oro MD PCP: Dr. Briseyda Sinclair MD Status:ADM IN Location: [place] [address] Subjective Subjective feels well no new complaints [...] Type 2 diabetes mellitus: QUALIFIERS: Diabetes mellitus intermediate insulin use: without watermelon inspector use Diabetes mellitus complication status: with circulatory [...] hydronephrosis Was not particularly hypotensive. Denies any lwdj-vsm-texbaci supplements. He started taking a probiotic due [...] for HD and renal biopsy tomorrow 06/13/25 5095 <Electronically signed by Luis Alberto Oro MD> Cosigner Signature (if applicable): CC: ~ Signed [facility] Work Phone: [phone] 875-943809-28-2025 Progress note Author Fawad Bates [facility] Note Date/Time June 13, 2025 11:45am [facility] Medical Records Department [address] [place] [address] Progress Note - Hospitalist 06/13/25 1142 MR#: [id number] Acct: [id number] Name: COLEMAN DAVIES Rep #:[id number] : 1950 74 From: Fawad Hall PCP: Dr. Briseyda Sinclair MD Status:ADM IN Location: [facility] [id number]- 1 Reason for Visit Chief Complaint: Intractable [...] and a stroke in the past. Had [place]/cardiac stent in 2000. Has a stroke with [...] fluctuates, today 7.70. BUN fluctuates between 70-90. Privacy Analyst report reviewed. Patient urine output is good. Hemodialysis today. Serologies are negative. Plan for kidney biopsy on Saturday. Likely tentative discharge on Saturday. 06/12: Patient had about 2500 mL of urine output. No significant fluid removal on dialysis here yesterday but mainly for electrolyte support. Discussed with the national sales director we will surgery. Plan for tunneled dialysis catheter and renalbiopsy on Saturday informed by the patient and his . Surgery consulted for tunneled dialysis catheter. 06/13: Good urine output. Bolaños catheter was removed yesterday. Was evaluated by national sales director. Plan for right IJ dialysis catheter removal [...] Full code Charges/Coding Visit Charges Inpatient E&M: 95884 Subs Hosp L2 06/13/25 1145 <Electronically signed by Fawad Bates MD> Cosigner Signature (if applicable): CC: ~ Signed [facility] Work Phone: [phone]) 945-834409-27-2025 Progress note Author Luis Alberto Oro [facility] Note Date/Time June 12, 2025 5:21pm [facility] Medical Records Department [address] [place] [address] Progress Note - Nephrology 06/12/25 1718 MR#: [id number] Acct: [id number] Name: COLEMAN DAVIES Rep #:[id number] : 1950 74 From: Luis Alberto Oro MD PCP: Dr. Briseyda Sinclair MD Status:ADM IN Location: [place] [address] Subjective Subjective feels well no new complaints [...] (Auto) 58.0, Lymph % (Auto) 17.9 L, Breathitt % (Auto) 16.9 H, Eos % (Auto) [...] Type 2 diabetes mellitus: QUALIFIERS: Diabetes mellitus intermediate insulin use: without intermediate use Diabetes mellitus complication status: with circulatory [...] hydronephrosis Was not particularly hypotensive. Denies any gwkb-qgm-uwlngjd supplements. He started taking a probiotic due [...] Cosigner Signature (if applicable): CC: ~ Signed [facility] Work Phone: [phone]) 957-495009-27-2025 Progress note Author Fawad Bates [facility] Note Date/Time June 12, 2025 12:50pm [facility] Medical Records Department [address] [place] [address] Progress Note - Hospitalist 06/12/25 1240 MR#: [id number] Acct: [id number] Name: KEKECOLEMAN Rep #:[id number] : 1950 74 From: Fawad Hall PCP: Dr. Briseyda Sinclair MD Status:ADM IN Location: [place] [address] Reason for Visit Chief Complaint: Intractable N/V [...] (Auto) 58.0, Lymph % (Auto) 17.9 L, Breath[place] % (Auto) 16.9 H, Eos % (Auto) [...] and a stroke in the past. Had [place]/cardiac stent in 2000. Has a stroke with [...] fluctuates, today 7.70. BUN fluctuates between 70-90. Privacy Analyst report reviewed. Patient urine output is good. Hemodialysis today. Serologies are negative. Plan for kidney biopsy on Saturday. Likely tentative discharge on Saturday. 06/12: Patient had about 2500 mL of urine output. No significant fluid removal on dialysis here yesterday but mainly for electrolyte support. Discussed with the national sales director we will surgery. Plan for tunneled dialysis [...] Full code Charges/Coding Visit Charges Inpatient E&M: 54675 Subs Hosp L2 06/12/25 1250 <Electronically signed by Fawad Bates MD> Cosigner Signature (if applicable): CC: ~ Signed [facility] Work Phone: [phone] 249-786209-26-2025 Progress note Author Fawad Bates [facility] Note Date/Time June 11, 2025 3:44pm [facility] Medical Records Department [address] [place] [address] Progress Note - Hospitalist 06/11/25 0915 MR#: [id number] Acct: [id number] Name: COLEMAN DAVIES Rep #:[id number] : 1950 74 From: Fawad Hall PCP: Dr. Briseyda Sinclair MD Status:ADM IN Location: [place] [address] Reason for Visit Chief Complaint: Intractable N/V [...] (Auto) 59.8, Lymph % (Auto) 17.4 L, Breathitt % (Auto) 15.4 H, Eos % (Auto) [...] and a stroke in the past. Had [place]/cardiac stent in 2000. Has a stroke with [...] fluctuates, today 7.70. BUN fluctuates between 70-90. Privacy Analyst report reviewed. Patient urine output is good. [...] Full code Charges/Coding Visit Charges Inpatient E&M: 86657 Subs Hosp L2 06/11/25 1110 <Electronically signed by Fawad Bates MD> Cosigner Signature (if applicable): CC: ~ Signed [facility] Work Phone: [phone]) [phone] Progress note Author Yohannes Santiago [facility] Note Date/Time June 11, 2025 2:23pm [facility] Medical Records Department [address] [place] [address] Progress Note - Nephrology 06/11/25 1422 MR#: [id number] Acct: [id number] Name: COLEMAN DAVIES Rep #:[id number] : 1950 74 From: Yohannes doran MD PCP: Dr. Briseyda Sinclair MD Status:ADM IN Location: [place] [address] Subjective Subjective good urine output. cr higher. [...] (Auto) 59.8, Lymph % (Auto) 17.4 L, [place]ath[place] % (Auto) 15.4 H, Eos % (Auto) [...] Type 2 diabetes mellitus: QUALIFIERS: Diabetes mellitus watermelon inspector insulin use: without intermediate use Diabetes mellitus complication status: with circulatory [...] hydronephrosis Was not particularly hypotensive. Denies any lriu-qie-vzofsvc supplements. He started taking a probiotic due [...] Cosigner Signature (if applicable): CC: ~ Signed [facility] Work Phone: [phone]) [phone] Progress note Author Yohannes Santiago [facility] Note Date/Time June 10, 2025 4:43pm [facility] Medical Records Department [address] [place] [address] Progress Note - Nephrology 06/10/25 1642 MR#: [id number] Acct: [id number] Name: COLEMAN DAVIES Rep #:[id number] : 1950 74 From: Yohannes doran MD PCP: Dr. Briseyda Sinclair MD Status:ADM IN Location: [place] [address] Subjective Subjective no new complaints Objective Data [...] Albumin (NATHAN) 2.3 L, Albumin/Globulin (NATHAN) 1.1, Ckyse-0-Zqdmoimzl NATHAN 0.2, Higoj-9-Ootyiqugl NATHAN 0.9, Beta-Globulins (NATHAN) 0.7, Gamma Globulins (NATHAN) 0.3 L, NATHAN M-Guilelrmo Not Observed, NATHAN Comments Comment, c-ANCA Antibody [...] Type 2 diabetes mellitus: QUALIFIERS: Diabetes mellitus intermediate insulin use: without watermelon inspector use Diabetes mellitus complication status: with circulatory [...] hydronephrosis Was not particularly hypotensive. Denies any tsnt-vly-wslgsez supplements. He started taking a probiotic due [...] on labs tomorrow. dw family bedside 06/10/25 7810 <Electronically signed by Yohannes Santiago MD> Cosigner Signature (if applicable): CC: ~ Signed [facility] Work Phone: [phone]) [phone] Progress note Author Candy Vo [facility] Note Date/Time June 10, 2025 3:15pm [facility] Medical Records Department [employer] [place] [address] Progress Note - Hospitalist 06/10/25 0738 MR#: [id number] Acct: [id number] Name: COLEMAN DAVIES Rep #:[id number] : 1950 74 From: Candy Vo DO PCP: Dr. Briseyda Sinclair MD Status:ADM IN Location: [place] [address] Reason for Visit Chief Complaint: Intractable N/V [...] Albumin (NATHAN) 2.3 L, Albumin/Globulin (NATHAN) 1.1, Iagem-9-Wfjhcpmeu NATHAN 0.2, Fipuv-0-Smfykamoh NATHAN 0.9, Beta-Globulins (NATHAN) 0.7, Gamma Globulins [...] Full code Charges/Coding Visit Charges Inpatient E&M: 06563 Subs Hosp L2 06/10/25 1515 <Electronically signed by Candy Vo DO> Cosigner Signature (if applicable): CC: ~ Signed [facility] Work Phone: [phone]) 462-578309-24-2025 Progress note Author Candy Vo [facility] Note Date/Time June 09, 2025 9:22pm [facility] Medical Records Department [address] [place] [address] Progress Note - Hospitalist 06/09/25 0729 MR#: [id number] Acct: [id number] Name: COLEMAN DAVIES Rep #:[id number] : 1950 74 From: Candy Vo DO PCP: Dr. Briseyda Sinclair MD Status:ADM IN Location: [address] 1 Reason for Visit Chief Complaint: [...] (Auto) 64.2, Lymph % (Auto) 13.4 L, Breathitt % (Auto) 17.6 H, Eos % (Auto) [...] Full code Charges/Coding Visit Charges Inpatient E&M: 42950 Subs Hosp L2 06/09/252121 <Electronically signed by Candy Vo DO> Cosigner Signature (if applicable): CC: ~ Signed [facility] Work Phone: [phone] 539-283209-24-2025 Progress note Author Yohannes Santiago [facility] Note Date/Time June 09, 2025 10:56am [facility] Medical Records Department [employer] [place] [address] Progress Note - Nephrology 06/09/25 1055 MR#: [id number] Acct: [id number] Name: COLEMAN DAVIES Rep #:[id number] : 1950 74 From: Yohannes doran MD PCP: Dr. Briseyda Sinclair MD Status:ADM IN Location: [place] [address] Subjective Subjective Urine output is good. Objective [...] (Auto) 64.2, Lymph % (Auto) 13.4 L, Breathitt % (Auto) 17.6 H, Eos % (Auto) [...] Type 2 diabetes mellitus: QUALIFIERS: Diabetes mellitus intermediate insulin use: without intermediate use Diabetes mellitus complication status: with circulatory [...] hydronephrosis Was not particularly hypotensive. Denies any lktj-hoh-gxhnwyh supplements. He started taking a probiotic due [...] Cosigner Signature (if applicable): CC: ~ Signed [facility] Work Phone: [phone]) 157-725009-23-2025 Progress note Author Candy Vo [facility] Note Date/Time June 08, 2025 5:52pm [facility] Medical Records Department [address] [facility] [address] Progress Note - Hospitalist 06/08/25 0750 MR#: [id number] Acct: [id number] Name: COLEMAN DAVIES Rep #:[id number] : 1950 74 From: Candy Vo DO PCP: Dr. Briseyda Sinclair MD Status:ADM IN Location: [place] [address] Reason for Visit Chief Complaint: Intractable N/V [...] (Auto) 66.7, Lymph % (Auto) 12.7 L, Breathitt % (Auto) 15.0 H, Eos % (Auto) [...] mild degree of vascular congestion. Reading Location: [place] [address] Rhythm Strip Rhythm Strip: Sinus Rhythm Rate: [...] Full code Charges/Coding Visit Charges Inpatient E&M: 93530 Subs Hosp L2 06/08/25 6182 <Electronically signed by Candy Vo DO> Cosigner Signature (if applicable): CC: ~ Signed [facility] Work Phone: [phone]) 722-624709-23-2025 Progress note Author Yohannes Santiago [facility] Note Date/Time June 08, 2025 12:51pm [facility] Medical Records Department [address] [place] [address] Progress Note - Nephrology 06/08/25 1250 MR#: [id number] Acct: [id number] Name: COLEMAN DAVIES Rep #:[id number] : 1950 74 From: Yohannes doran MD PCP: Dr. Briseyda Sinclair MD Status:ADM IN Location: [place] [address] Subjective Subjective seen on HD today Objective [...] (Auto) 66.7, Lymph % (Auto) 12.7 L, Breathitt % (Auto) 15.0 H, Eos % (Auto) [...] Type 2 diabetes mellitus: QUALIFIERS: Diabetes mellitus watermelon inspector insulin use: without watermelon inspector use Diabetes mellitus complication status: with circulatory [...] hydronephrosis Was not particularly hypotensive. Denies any hnts-okg-jvabfsz supplements. He started taking a probiotic due [...] Cosigner Signature (if applicable): CC: ~ Signed [facility] Work Phone: [phone]) 721-136809-22-2025 Progress note Author Candy Vo [facility] Note Date/Time June 07, 2025 7:53pm [facility] Medical Records Department [address] [facility] [address] Progress Note - Hospitalist 06/07/2511 MR#: [id number] Acct: [id number] Name: COLEMAN DAVIES Rep #:[id number] : 1950 74 From: Candy Vo DO PCP: Dr. Briseyda Sinclair MD Status:ADM IN Location: [place] [address] Reason for Visit Chief Complaint: Intractable N/V [...] (Auto) 71.0 H, Lymph % (Auto) 12.1 L,Breathitt % (Auto) 14.5 H, Eos % (Auto) [...] Full code Charges/Coding Visit Charges Inpatient E&M: 18891 Subs Hosp L2 06/07/251952 <Electronically signed by Candy Vo DO> Cosigner Signature (if applicable): CC: ~ Signed [facility] Work Phone: [phone] 792-898509-22-2025 Progress note Author Yohannes Santiago [facility] Note Date/Time June 07, 2025 10:58am [facility] Medical Records Department [address] [place] [address] Progress Note - Nephrology 06/07/255 MR#: [id number] Acct: [id number] Name: COLEMAN DAVIES Rep #:[id number] : 1950 74 From: Yohannes doran MD PCP: Dr. Briseyda Sniclair MD Status:ADM IN Location: ICU ICU01-1 Subjective [...] (Auto) 71.0 H, Lymph % (Auto) 12.1 L,Breathitt % (Auto) 14.5 H, Eos % (Auto) [...] Type 2 diabetes mellitus: QUALIFIERS: Diabetes mellitus watermelon inspector insulin use: without watermelon inspector use Diabetes mellitus complication status: with circulatory [...] hydronephrosis Was not particularly hypotensive. Denies any hwjr-hyu-zaohkhp supplements. He started taking a probiotic due [...] about 24 years ago. This was in [place]. 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 Garrison here. Has not had any strokes recently. Will check with cardiology to see if it is safe to hold Effient for the kidney biopsy. Discussed with at bedside 06/07/25 1055 <Electronically signed by Yohannes Santiago MD> Cosigner Signature (if applicable): CC: ~ Signed [facility] Work Phone: [phone] 626-841509-22-2025 Radiology Diagnostic study [facility]09-22-2025 Procedure [facility]09-22-2025 Procedure [facility]09-21-2025 Progress note Author Richi Hope [facility] Note Date/Time June 06, 2025 10:22am [facility] Medical Records Department [address] [place] [address] Progress Note - Hospitalist 06/06/25 0752 MR#: [id number] Acct: [id number] Name: COLEMAN DAVIES Rep #:[id number] : 1950 74 From: Richi Hope MD [...] Clarity Clear, Urine pH 6.0, Ur Specific Sullivan 1.015, Urine Protein 100 H, Urine Glucose [...] (Auto) 68.8, Lymph % (Auto) 13.7 L, Breathitt % (Auto) 16.1 H, Eos % (Auto) [...] 05:50 IMPRESSION: Right renal cyst. Reading Location: [facility] Echocardiogram 06/05/25 06:53 Interpretation Summary Normal LV size. The left ventricular ejection fraction is 60 %. Mild segmental systolic dysfunction (see wall motion). Septal [place] : Akinetic. Contrast injection was performed. Ordering [...] bibasilar crackles Charges/Coding Visit Charges Inpatient E&M: 07666 Subs Hosp L3 06/06/25 1022 <Electronically signed by Richi Hope MD> Cosigner Signature (if applicable): CC: ~ Signed [facility] Work Phone: 1(896) 469-589909-20-2025 Consult note Author Chris Musa tr [facility] Note Date/Time June 05, 2025 7:46pm [facility] Medical Records Department [address] [place] [address] Consultation - Nephrology 06/05/25 1905 MR#: [id number] Acct: [id number] Name: COLEMAN DAVIES Rep #:[id number] : 1950 74 From: Chris lauren MD PCP: Dr. Briseyda Sinclair MD Status:ADM IN Location: ICU ICU01-1 Assessment & Plan Assessment/Plan (1) Acute renal failure: (2) Hyperkalemia, diminished renal excretion: (3) Acute metabolic acidosis: (4) Essential hypertension: (5) Type 2 diabetes mellitus: QUALIFIERS: Diabetes mellitus watermelon inspector insulin use: without intermediate use Diabetes mellitus complication status: with circulatory [...] has been no recent prescription medication changes. [facility] Medical History Cancer Alcohol use History of [...] coronary artery (~08/28/01) Atherosclerotic heart disease of [place] coronary artery without angina pectoris Home Medications [...] Unkno wn Rx 09/19 (Comfort EZ Pen Butler) finasteride 5 mg tablet 5 mg PO [...] (Auto) 82.3 H, Lymph % (Auto) 11.2L, Breath[place] % (Auto) 5.6, Eos % (Auto) 0.2, [...] Clarity Clear, Urine pH 6.0, Ur Specific Sullivan 1.015, Urine Protein 100 H, Urine Glucose [...] bilateral basilar atelectatic pulmonary changes. [facility] Ren[facility] Ul[facility]ound 06/05/25 05:50 IMPRESSION: Right renal cyst. Reading Location: [facility] Echocardiogram 06/05/25 06:53 Interpretation Summary Normal LV size. The left ventricular ejection fraction is 60 %. Mild segmental systolic dysfunction (see wall motion). Septal [place] : Akinetic. Contrast injection was performed. Ordering Physician: Tabby Zuniga Referring Physician: Briseyda Sinclair M.D. Performed By: Veronica Oliva ELVIA 06/05/251945 <Electronically signed by Chris Bird MD> Cosigner Signature (if applicable): CC: Dr. Briseyda Sicnlair MD~ Signed [facility] Work Phone: [phone]) 625-611109-20-2025 Progress note Author Richi Hope [facility] Note Date/Time June 05, 2025 3:04pm [facility] Medical Records Department [address] [place] [address] Progress Note - Hospitalist 06/05/25 0757 MR#: [id number] Acct: [id number] Name: COLEMAN DAVIES Rep #:[id number] : 1950 74 From: Richi Hope MD [...] (Auto) 82.3 H, Lymph % (Auto) 11.2L, Breathitt % (Auto) 5.6, Eos % (Auto) 0.2, [...] bilateral basilar atelectatic pulmonary changes. Reading Location: [place] [address] Rhythm Strip Rhythm Strip: Sinus Rhythm Rate: [...] 60 . Minutes Charges/Coding Procedures Hospitalists Procedures: 71113 Critical Care 1st Hr 06/05/25 0945 <Electronically [...] CC time; 35 min Procedures Hospitalists Procedures: 12633 Advncd Care Plan addl 30 Min 06/05/25 1504<Electronically signed by Richi Hope MD> Cosigner Signature (if applicable): cc: ~* Signed [facility] Work Phone: 1(174) 330-450709-20-2025 Radiology Diagnostic study [facility]09-20-2025 History and physical note Author Tabby Zuniga [facility] Note Date/Time June 05, 2025 6:04am [facility] Medical Records Department [address] [place] [address] H&P Exam - Hospitalist 06/05/25 0542 MR#: [id number] Acct: [id number] Name: COLEMAN DVAIES Rep #:[id number] : 1950 74 From: Tabby Zuniga MD PCP: Dr. Briesyda Sinclair MD Status:ADM IN Location: [place] [address]- 1 HPI - General General Date of Admission: 06/05/25 Date of Service: 06/05/25 Chief Complaint: Intractable N/V HPI Narrative The patient is a 74 y/o M w/ PMHx: CKD stage III unclear subtype per previous GFR trending, GERD, Hx TIA/CVA, Hypothyroidism, HTN, HLD, Carotid disease, Former tobacco use, IDDM, CAD s/p PCI, [facility] normocytic [facility] with [facility] of onset [...] anion gap 29, BUN/creatinine 92/8.74, GFR 6, ugipxky995, troponin 116 with most recently noted troponin prior to this 03/29/25 39, acute abdominal series without acute findings, EKG with very slight T wave peaking but no other acute changes or evidence of ischemia. In the ED patient ministered 1 L normal saline, Zofran 4 mg IV x 1 as well as Kayexalate 15 mg p.o. x 1. ED discussed case with Nephrology. [facility] Medical History Cancer Alcohol use History of [...] coronary artery (~08/28/01) Atherosclerotic heart disease of [place] coronary artery without angina pectoris Home Medications [...] Unkno wn Rx 09/19 (Comfort EZ Pen Butler) finasteride 5 mg tablet 5 mg PO [...] (Auto) 82.3 H, Lymph % (Auto) 11.2L, Bre[place] % (Auto) 5.6, Eos % (Auto) 0.2, [...] s/p PCI, Chronic normocytic anemia who presents [facility] ED on 06/05/2025 with history of onset [...] Full Code. Charges/Coding Visit Charges Inpatient E&M: 21423 Init Hosp L3 06/05/25 0604 <Electronically signed by Tabby Zuniga MD> Cosigner Signature (if applicable): CC: Dr. Tabby Zuniga MD; Dr. Briseyda Sinclair MD~ Signed [facility] Work Phone: 1(178) 518-989609-20-2025 Discharge summary Author Blake Kapoor [facility] Note Date/Time June 05, 2025 5:56am [facility] Medical Records Department [address] [place] [address] Emergency Department Summary 06/05/25 MR#: [id number] Acct: [id number] Name: COLEMAN DAVIES Rep #:[id number] : 1950 74 From: Blake Kapoor MD [...] shrimp. He has had no alcohol use. [facility] Medical History Cancer Alcohol use History [...] coronary artery (~08/28/01) Atherosclerotic heart disease of [place] coronary artery without angina pectoris Home Medications [...] (1,000 unit) tablet lancets 33 gauge ([facility] ea 05/04/24 Unk nown Rx Plus [...] Unkno wn Rx 09/19 (Comfort EZ Pen Butler) finasteride 5 mg tablet 5 mg PO [...] in agreement with this and requests a 4-iyix-kiljvb potassium level, and is agreeable to see [...] 82.3 H Lymph % (Auto) 11.2 L [place] % (Auto) 5.6 Eos % (Auto) 0.2 [...] Management Discussion w/another healthcare provider: Hospitalist and Program Attendant (Nephrology) Discharge Plan Dx/Rx/DC Orders Clinical Impression: Acute uremia, Acute renal failure, Hyperkalemia, diminished renal excretion, Vomiting Disposition Disposition: [facility] What to do if you have Problems For any increased pain, shortness of breath, bleeding, nausea or vomiting, chestpain, or any unexpected problems, contact your Primary Care Provider. Call [facility] ([phone]) or report to the closest Emergency Room. Call 911 if necessary. 06/05/25 0556 <Electronically signed by Blake Kapoor MD> Cosigner Signature (if applicable): CC: Dr. Briseyda Sinclair MD ~ Signed [facility] Work Phone: 1(938) 777-685109-20-2025 Radiology Diagnostic study [facility]07-28-2025 Evaluation note* Diagnosis Onset Date Resolution Status Admit Date Aneurysm of intracranial artery acute April 12, 2025 12:50pm Bilateral carotid artery stenosis acute April 12, 2025 12:50pm Intracranial vascular stenosis acute April 12, 2025 12:50pm Transient ischemia noneactive March 172024 12:50pm Aneurysm of intracranial artery acute April 28 2:06pm Atherosclerotic heart diseas e of [place] coronary artery without angina pectoris acute April 162024 2:06pm Bilateral carotid artery stenosis acute April 28 2:06pm Atherosclerotic heart diseas e of [place] coronary artery without angina pectoris acute April [...] diabetes mellitus chronic June 05, 2025 5:44am [facility] Work Phone: 1([phone]) 846-662007-28-2025 Evaluation note* Diagnosis Onset Date Resolution Status Admit Date Aneurysm of intracranial artery acute April 12, 2025 12:50pm Bilateral carotid artery stenosis acute April 12, 2025 12:50pm Intracranial vascular stenosis acute April 12, 2025 12:50pm Transient ischemia noneactive March 172024 12:50pm Aneurysm of intracranial artery acute April 28 2:06pm Atherosclerotic heart diseas e of [place] coronary artery without angina pectoris acute April 162024 2:06pm Bilateral carotid artery stenosis acute April 28 2:06pm Atherosclerotic heart diseas e of [place] coronary artery without angina pectoris acute April [...] Streptococcus pneumoniae vaccination acute June 162024 9:11am [facility] Work Phone: 1(376) 419-967007-28-2025 Evaluation note* Diagnosis Onset Date Resolution Status Admit Date Aneurysm of intracranial artery acute April 12, 2025 12:50pm Bilateral carotid artery stenosis acute April 12, 2025 12:50pm Intracranial vascular stenosis acute April 12, 2025 12:50pm Transient ischemia noneactive March 172024 12:50pm Aneurysm of intracranial artery acute April 28 2:06pm Atherosclerotic heart diseas e of [place] coronary artery without angina pectoris acute April 162024 2:06pm Bilateral carotid artery stenosis acute April 28 2:06pm Atherosclerotic heart diseas e of [place] coronary artery without angina pectoris acute April [...] diabetes mellitus chronic July 21, 2025 9:18am [facility] Work Phone: 1(970) 462-700907-14-2025 Discharge summary [facility] Medical Records Department [address] [place] [address] Emergency Department Summary 03/29/25 MR#: [id number] Acct: [id number] Name: COLEMAN DAVIES Rep #:[id number] : 1950 74 From: Ravinder Vance DO [...] as well but it resolved after taking tqlh-kaw-lxzzzir Imodium. Hestates this morning around 4:00 he awoke and noticed vague chest discomfort. He states there was noassociated nausea vomiting diaphoresis or shortness of breath. He does report there is mild radiation into his left arm. He states with his past history of CAD and stent placement he was concerned this could be secondary to his heart and therefore comes in for evaluation [facility] Medical History Diabetes Myocardial infarct Lower urinary [...] coronary artery (~08/28/01) Atherosclerotic heart disease of [place] coronary artery without angina pectoris Home Medications [...] Unkno wn Rx 1/4 (Comfort EZ Pen Butler) finasteride 5 mg tablet 5 mg PO QDAY 01/27/25 Unknow n History blood sugar diagnostic [facility] 02/24/[facility] Unkn own Rx [...] and his EKG does not show acute [place] and therefore I feel if his overall [...] % (Auto) 50.2 Lymph % (Auto) 31.8 [place] % (Auto) 10.5 H Eos % (Auto) [...] (DME) pen needle, diabetic [Comfort EZ Pen Butler] 32 gauge x 1/4 needle See Rx [...] MD [Primary Care Provider] - Print Language: Bangladeshi What to do if you have Problems For any increased pain, shortness of breath, bleeding, nausea or vomiting, chestpain, or any unexpected problems, contact your Primary Care Provider. Call [facility] ([phone]) or report tothe closest Emergency Room. Call 911 if necessary. 03/29/25 07 Cosigner Signature (if applicable): CC: Dr. Briseyda Sinclair MD ~ Signed [facility]07-14-2025 Radiology Diagnostic study note [facility] Imaging Services [address] [place], [place] [address] Chest PA and Lateral MR#: [id number] Acct: [id number] Name: COLEMAN DAVIES Rep #: [id number] : 1950 M 74 From: Romana Santos MD PCP: Dr. Briseyda Sinclair MD Status: REG ER Study:Chest PA and Lateral Date of Exam: 03/29/25 Exam# [id number] Ordering Dr: Piper Vance DO PROCEDURE: CHEST [...] Briseyda Sinclair MD; Ravinder Vance DO ~ Secondary Social Studies Teacher: Signed [facility]06-26-2025 Telephone encounter Note* Telephone Encounter - JARETT Kruse CNP - 03/11/2025 11:49 AM EDT [facility]. [id number] Miscellaneous Notes* Telephone Encounter - JARETT Kruse CNP - 03/11/2025 11:49 AM EDT I did. * Telephone Encounter - Kaylin Meyers - 03/05/2025 8:34 AM EDT Name of caller: Kaelyn Contact phone number: [phone] Relationship to Patient: [facility] Lab Provider: Dr. Blackman Practice: Endovascular [...] return their call: Yes documented in this [facility]06-20-2025 Telephone encounter Note* Telephone Encounter - Kaylin Meyers - 03/05/2025 8:34 AM EDT Name of caller: Kaelyn Contact phone number: [phone] Relationship to Patient: [facility] Provider: Dr. Blackman Practice: Endovascular Chief Complaint/Reason for Call: Patient PRU lab was cancelled due to wrong color tube. If patient testing needs completed please reorder testing. Lab needs a christine tube, not a long top blue. Best time of day caller can be reached: any Patient advised that office/PCP has 24-48 business hours to return their call: Yes [id number] Miscellaneous Notes* Telephone Encounter - Kaylin Meyers - 03/05/2025 8:34 AM EDT Name of caller: Kaelyn Contact phone number: [phone] Relationship to Patient: [facility] Lab Provider: Dr. Blackman Practice: [...] return their call: Yes documented in this [facility]2025 History of Present illness Narrative* Simba [...] tablet, , Disp: , Rfl: Droplet Pen Butler 32G X 6 MM [facility], , Disp: , Rfl: famotidine (Pepcid) 20 MG tablet, , Disp: , Rfl: glimepiride (Amaryl) 4 MG tablet, , Disp: , Rfl: isosorbide mononitrate ER (Imdur) 30 MG 24 hr tablet, , Disp: , Rfl: Lancets (PureWRXTouch Delica Plus Yipzqp24F) [facility], USE TO TEST BLOOD SUGAR TWICE DAILY [...] Smoking cessation counseling: Yes documented in this [facility]06-04-2025 Telephone encounter Note* Telephone Encounter - [facility] - 02/17/2025 11:34 AM EDT Name of caller: Basim Contact phone number: [phone] Relationship to Patient: spouse/SO Provider: Dr. Blackman [...] to return their call: Yes [id number] Miscellaneous Notes* Telephone Encounter - [facility] - 02/17/2025 11:34 AM EDT Name of caller: Basim Contact phone number: [phone] Relationship to Patient: spouse/SO Provider: Dr. Blackman [...] return their call: Yes documented in this [facility]05-19-2025 Progress note Author Mookie Werner [facility] Note Date/Time February 01, 2025 2:51p m [facility] [address] [place] [address] OFFICE VISIT Date of Service: 02/01/25 MR#: [id number] Acct: [id number] Name: COLEMAN DAVIES Rep #: [id number] : 1950 Provider: Dr. 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 Accompanied by: Is patient in [...] ea 01/04/2502/01 Rx 1/4 (Comfort EZ Pen Butler) finasteride 5 mg tablet 5 mg PO QDAY 01/27/25 History Have you fallen in the past year?: [facility] Diabetes Myocardial infarct Lower urinary [...] coronary artery (~08/28/01) Atherosclerotic heart disease of [place] coronary artery without angina pectoris Surgical History [...] NARDA aneurysm; will refer to NeuroInterventional at [facility] -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 [address] [place] [address] OFFICE VISIT Date of Service: 02/01/25 MR#: [id number] Acct: [id number] Name: COLEMAN DAVIES Rep #: [id number] : 1950 Provider: Dr. 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 Accompanied by: Is patient in [...] tablet pain #25 tabs blood sugar diagnostic ([facility] e[facility] 05/04/2401/14 Rx Verio test strips) lancets 33 gauge [facility] ea 05/04/24 Rx Plus Lancet) atorvastatin [...] ea 01/04/2502/01 Rx 1/4 (Comfort EZ Pen Butler) finasteride 5 mg tablet 5 mg PO [...] coronary artery (~08/28/01) Atherosclerotic heart disease of [place] coronary artery without angina pectoris Surgical History [...] Orellana Signature: Date (if applicable) CC: ~ [facility]05-01-2025 [facility]04-30-2025 Evaluation note* Diagnosis Onset Date Resolution Status Admit Date TIA (transient ischemic attack) reso lved January 13, 2025 3:02pm Atherosclerotic heart diseas e of [place] coronary artery without angina pectoris acute January [...] 1:21pm Transient ischemia noneactive February 112024 1:21pm [facility] Work Phone: 1(958) 145-441604-30-2025 Evaluation note* Diagnosis Onset Date Resolution Status Admit Date TIA (transient ischemic attack) reso lved January 13, 2025 3:02pm Atherosclerotic heart diseas e of [place] coronary artery without angina pectoris acute January [...] 12:50pm Transient ischemia noneactive March 172024 12:50pm [facility] Work Phone: 1(550) 217-410804-30-2025 Evaluation note* Diagnosis Onset Date Resolution Status Admit Date TIA (transient ischemic attack) reso lved January 13, 2025 3:02pm Atherosclerotic heart diseas e of [place] coronary artery without angina pectoris acute January [...] 2025 2:06pm Atherosclerotic heart diseas e of [place] coronary artery without angina pectoris acute April 162024 2:06pm Bilateral carotid artery stenosis acute April 28 2:06pm Diarrhea noneactive May 03, 2 025 1:37pm [facility] Work Phone: 1(565) 616-818104-30-2025 Evaluation note* Diagnosis Onset Date Resolution Status Admit Date TIA (transient ischemic attack) reso lved January 13, 2025 3:02pm Atherosclerotic heart diseas e of [place] coronary artery without angina pectoris acute January [...] 2025 2:06pm Atherosclerotic heart diseas e of [place] coronary artery without angina pectoris acute April 162024 2:06pm Bilateral carotid artery stenosis acute April 28 2:06pm Atherosclerotic heart diseas e of [place] coronary artery without angina pectoris acute April 162024 1:37pm Essential hypertension chronic Au marciano 2024 1:37pm Type 2 diabetes mellitus chronic May 03, 2025 1:37pm Diarrhea noneactive May 03, 2 025 1:37pm [facility] Work Phone: 1(508) 620-329602-24-2025 Evaluation note* Diagnosis Onset Date Resolution Status Admit Date Atherosclerotic heart diseas e of [place] coronary artery without angina pectoris acute November 09, 2024 1:18pm Bilateral carotid artery stenosis acute November 09, 2 025 1:18pm Dyslipidemia chronic October 1:18pm Essential hypertension chronic 2024 1:18pm Type 2 diabetes mellitus chronic November 09, 2024 1:18pm TIA (transient ischemic attack) reso lved January 13, 2025 3:02pm Atherosclerotic heart diseas e of [place] coronary artery without angina pectoris acute January [...] diabetes mellitus chronic January 27, 2025 2:45pm [facility] Work Phone: 1(363) 328-754402-24-2025 Evaluation note* Diagnosis Onset Date Resolution Status Admit Date Atherosclerotic heart diseas e of [place] coronary artery without angina pectoris acute November 09, 2024 1:18pm Bilateral carotid artery stenosis acute November 09, 2 025 1:18pm Dyslipidemia chronic October 1:18pm Essential hypertension chronic Fe bruary 2024 1:18pm Type 2 diabetes mellitus chronic November 09, 2024 1:18pm TIA (transient ischemic attack) resolved January 13, 2025 3:02pm Atherosclerotic heart diseas e of [place] coronary artery without angina pectoris acute January [...] 1:21pm Transient ischemia noneactive February 112024 1:21pm [facility] Work Phone: 1(329) 769-934102-24-2025 Evaluation note* Diagnosis Onset Date Resolution Status Admit Date Atherosclerotic heart diseas e of [place] coronary artery without angina pectoris acute November 09, 2024 1:18pm Bilateral carotid artery stenosis acute November 09, 2 1:18pm Dyslipidemia chronic October 1:18pm Essential hypertension chronic Fe bruary 2024 1:18pm Type 2 diabetes mellitus chronic November 09, 2024 1:18pm TIA (transient ischemic attack) reso lved January 13, 2025 3:02pm Atherosclerotic heart diseas e of [place] coronary artery without angina pectoris acute January [...] stenosis, left chronic Ma y 2024 1:31pm [facility] Work Phone: 1(400) 327-253101-14-2025 Evaluation note* Diagnosis Onset Date Resolution Status Admit Date History of laminectomy acute [facility] 2024 3:24pm Lumbar radiculopathy acute Job jovi2024 3:24pm Atherosclerotic heart diseas e of [place] coronary artery without angina pectoris acute November 09, 2024 1:18pm Bilateral carotid artery stenosis acute November 09, 2 025 1:18pm Dyslipidemia chronic October 1:18pm Essential hypertension chronic Fe bruary 2024 1:18pm Type 2 diabetes mellitus chronic November 09, 2024 1:18pm [facility] Work Phone: 1(143) 406-442901-14-2025 Evaluation note* Diagnosis Onset Date Resolution Status Admit Date History of laminectomy acute 2024 3:24pm Lumbar radiculopathy acute 2024 3:24pm Atherosclerotic heart diseas e of [place] coronary artery without angina pectoris acute November 09, 2024 1:18pm Bilateral carotid artery stenosis acute November 09, 2 025 1:18pm Dyslipidemia chronic October 1:18pm Essential hypertension chronic Fe bruary 2024 1:18pm Type 2 diabetes mellitus chronic November 09, 2024 1:18pm TIA (transient ischemic attack) reso lved January 13, 2025 3:02pm [facility] Work Phone: 1(381) 177-584212-05-2024 Evaluation note* Diagnosis Onset Date Resolution Status Admit Date History of laminectomy acute De cember 2023 8:14am Lumbar radiculopathy acute Dece mber 2023 8:14am History of laminectomy acute 2024 3:24pm Lumbar radiculopathy acute Job jovi2024 3:24pm Atherosclerotic heart diseas e of [place] coronary artery without angina pectoris acute November 09, 2024 1:18pm Bilateral carotid artery stenosis acute November 09, 2 025 1:18pm Dyslipidemia chronic October 1:18pm Essential hypertension chronic Fe bruary 2024 1:18pm Type 2 diabetes mellitus chronic November 09, 2024 1:18pm [facility] Work Phone: 1(894) 659-227303-19-2024 History and physical note Author Manuel Gilman [facility] December 03, 2023 6:06am Note Date/Time December 03, 2023 6:0 6am [facility] Medical Records Department [address] [place] [address] History & Physical Exam 12/03/23 0606 MR#: [id number] Acct: [id number] Name: COLEMAN DAVIES Rep #:[id number] : 1950 73 From: Manuel Gilman MD PCP: Dr. Briseyda Sinclair MD Status:[facility] Location: [place] [address] History and Physical Date of Admission: 12/03/23 Visit Reasons: EGD/C-SCOPE DX ANEMIA Chief Complaint: egd/c-scope [employer] Tank[employer] Required: No Is patient in pain?: No [...] 03/29/23 [Rx Confirmed 11/22/23] blood sugar diagnostic (PureWRXTouch Verio test strips) #100 ea 04/03/23 [Rx [...] 32 gauge x 1/4 (Comfort EZ Pen Butler) #100 ea 10/23/23 [Rx Confirmed 11/22/23] insulin glargine U-300 conc 300 unit/mL (1.5 mL) subcutaneous pen (Toujeo SoloStar U-300 Insulin) 36 unit (0.12 mL) subcut DAILY #4.5 mL 10/28/23 [Rx Confirmed 11/22/23] isosorbide mononitrate 30 mg tablet,extended release 24 hr 30 mg PO DAILY #90 tabs 10/31/23 [Rx Confirmed 11/22/23] [facility] Medical History Abnormal stress test Atherosclerotic heart disease of [place] coronary artery without angina pectoris Bilateral carotid [...] Sinclair MD; Dr. Manuel Gilman MD~ Signed [facility] Work Phone: 1(207) 293-720103-19-2024 Procedure [facility] 12-03-2023 Procedure [facility]03-19-2024 Procedure note [facility]03-19-2024 Procedure [facility] 08-20-2023 Hospital Discharge instructions Additional Instructions Creatinine 1.3 today GFR of 54. Sodium 137. White count 8.0. Hemoglobin 14. Glucose 271, anion gap 9. You are dealing with COVID symptoms. Continue oral fluids for hydration. Follow-up with your doctor. Return if any worsening symptoms for reevaluation.[facility] Work Phone: 1(460) 384-621405-27-2022 NoteHNO ID: [id number] Author: Maria Elena Zhong, PT Service: ? [...] 02/09/2022 and treatment included: Therapeutic activities and Self-correction management. Goals for Episode of Care: created on 12/28/21 through 02/08/22 Goals updated on 01/19/2022 Goals updated on 02/02/2022 through 03/16/22 Goals updated on 02/09/2022. [place] in home exercise program. -- MET Patient [...] Time Minutes (timed/untimed): 30 Maria Elena Zhong, [facility]05-27-2022 History of Present illness Narrative* Maria [...] 02/09/2022 and treatment included: Therapeutic activities and Self-correction management. Goals for Episode of Care: created on 12/28/21 through 02/08/22 Goals updated on 01/19/2022 Goals updated on 02/02/2022 through 03/16/22 Goals updated on 02/09/2022. [place] in home exercise program. -- MET Patient [...] Treatment Time Minutes (timed/untimed): 30 Maria Elena Zhogn PT [facility]22 NoteHNO ID: [id number] Author: Maria Elena Zhong PT Service: ? [...] 01/19/2022 Goals updated on 02/02/2022 through 03/16/22 [place] in home exercise program. -- MET Patient [...] Patient to be seen for Therapeutic exercise (80365) PLAN FOR NEXT VISIT: Continued PT visits [...] not included)... [facility]05-20-2022 History of Present illness Narrative* Maria Elena [...] Frequency: 1x/week Planned Treatment Interventions: Therapeutic exercise (10609) PLAN FOR NEXT VISIT: PN next visit, [...] Maria Elena Zhong, PT documented in [facility]05-[facility]-2022 NoteHNO ID: [id number] Author: Maria Elena Zhong PT Service: ? [...] Frequency: 1x/week Planned Treatment Interventions: Therapeutic exercise (82886) PLAN FOR NEXT VISIT: SUBJECTIVE: Patient Reason [...] Time Minutes (timed/untimed): 30 Maria Elena Zhong, [facility]05-13-2022 History of Present illness Narrative* Maria Elenaderian [...] Frequency: 1x/week Planned Treatment Interventions: Therapeutic exercise (68711) PLAN FOR NEXT VISIT: SUBJECTIVE: Patient Reason [...] Maria Elena Zhong PT [facility]-2022 NoteHNO ID: [id number] Author: Maria Elena Zhong PT Service: ? [...] 12/28/21 through 02/08/22 Goals updated on 01/19/2022. [place] in home exercise program. -- MET Patient [...] Patient to be seen for Therapeutic exercise (91975);Self-correction management (44533);Therapeutic activities (05640);Patient/Family/Caregiver Education;Manual therapy (61069) SUBJECTIVE: Patient Reason for Visit: Pt. reports [...] content not included)...[facility]05-06-2022 History of Present illness Narrative* Maria Elena [...] 12/28/21 through 02/08/22 Goals updated on 01/19/2022. [place] in home exercise program. -- MET Patient [...] Patient to be seen for Therapeutic exercise (94714);Self-correction management (35082);Therapeutic activities (61053);Patient/Family/Caregiver Education;Manual therapy (24182) SUBJECTIVE: Patient Reason for Visit: Pt. reports [...] and function . Patient education as noted. Self-Nursing Home Management: 1: *continue wand exercises for stretching [...] Maria Elena Zhong PT documented in [facility]Bar[facility]04-14-2022 NoteHNO ID: [id number] Author: Maria Elena Zhong PT Service: ? [...] of Care: created on 12/28/21 through 02/08/22 [place] in home exercise program. Patient will decrease [...] Planned: 6 Planned Treatment Interventions: Therapeutic exercise (34877);Self-correction management (72093);Therapeutic activities (67020);Patient/Family/Caregiver Education;Manual therapy (01629) Patient demonstrates good understanding of plan of [...] tasks this summer. Pt. moved here from [place], [place] 6 months ago. Now lives at [facility]. Patient Goals: don/doff jacket without assistance and return to yard work tasks without limitation due to R shoulder pain Functional Limitations: lifting;throwing;reaching behind back;reaching overhead;use hand with arm at shoulder level Prior Level of Function: Independent without limitations Relevant History Past Relevant Medical Conditions: Cardiac;Diabetes;Hypertension;Kidney Problems Past Relevant Surgical Conditions: Rotator Cuff Repair-Right Preferred Language: Bangladeshi Right or Left Handed: Left Home Environment [...] content not included)...[facility] 12-28-2021 History of Present illness Narrative* Maria [...] of Care: created on 12/28/21 through 02/08/22 [place] in home exercise program. Patient will decrease [...] Planned: 6 Planned Treatment Interventions: Therapeutic exercise (55031);Self-correction management (29750);Therapeutic activities (21892);Patient/Family/Caregiver Education;Manual therapy (18676) Patient demonstrates good understanding of plan of [...] tasks this summer. Pt. moved here from [place], [place] 6 months ago. Now lives at [facility]. Patient Goals: don/doff jacket without assistance and return to yard work tasks without limitation due to R shoulder pain Functional Limitations: lifting;throwing;reaching behind back;reaching overhead;use hand with arm at shoulder level Prior Level of Function: Independent without limitations Relevant History Past Relevant Medical Conditions: Cardiac;Diabetes;Hypertension;Kidney Problems Past Relevant Surgical Conditions: Rotator Cuff Repair-Right Preferred Language: Bangladeshi Right or Left Handed: Left Home Environment [...] States/Identifies;Return Demonstration TREATMENT: PT Treatment Interventions: Therapeutic Exercise;Self-Nursing Home Management Evaluation Evaluation Therapeutic Exercise: 1: *valentin [...] and function . Patient education as noted. Self-Nursing Home Management: 1: *postural education 2: *staying within [...] Maria Elena Zhong PT documented in [facility]12-[facility] Evaluation note* Diagnosis Onset Date Resolution Status Bilateral carotid artery stenosis acute Essential hypertension acute Hypertriglyceridemia acute Multiple lacunar infarcts ac [place] Presence of stent in coronary artery August, acute Pure hypercholesterolemia ac [place] Right carotid artery occlusion acute Type 2 diabetes mellitus acu te CKD (chronic kidney disease) stage 3, GFR 30-59 ml/min chronic Hyperglycemia acute Lactic acidosis acute Weakness acute [facility] Work Phone: Consult note Author Chris Musa tr [facility] Note Date/Time June 05, 2025 7:46pm [facility] Medical Records Department [address] [place] [address] Consultation - Nephrology 06/05/251904 MR#: [id number] Acct: [id number] Name: COLEMAN DAVIES Rep #:[id number] : 1950 74 From: Chris lauren MD PCP: Dr. Briseyda Sinclair MD Status:ADM IN Location: ICU ICU01-1 Assessment & Plan Assessment/Plan (1) Acute renal failure: (2) Hyperkalemia, diminished renal excretion: (3) Acute metabolic acidosis: (4) Essential hypertension: (5) Type 2 diabetes mellitus: QUALIFIERS: Diabetes mellitus intermediate insulin use: without intermediate use Diabetes mellitus complication status: with circulatory [...] has been no recent prescription medication changes. [facility] Medical History Cancer Alcohol use History of [...] coronary artery (~08/28/01) Atherosclerotic heart disease of [place] coronary artery without angina pectoris Home Medications [...] Unkno wn Rx 09/19 (Comfort EZ Pen Butler) finasteride 5 mg tablet 5 mg PO [...] (Auto) 82.3 H, Lymph % (Auto) 11.2L, Breathitt % (Auto) 5.6, Eos % (Auto) 0.2, [...] Clarity Clear, Urine pH 6.0, Ur Specific Sullivan 1.015, Urine Protein 100 H, Urine Glucose [...] bilateral basilar atelectatic pulmonary changes. [facility] 06/05/25 05:50 IMPRESSION: Right renal cyst. Reading Location: [facility] Echocardiogram 06/05/25 06:53 Interpretation Summary Normal LV size. The left ventricular ejection fraction is 60 %. Mild segmental systolic dysfunction (see wall motion). Septal [place] : Akinetic. Contrast injection was performed. Ordering Physician: Tabby Zuniga Referring Physician: Briseyda Sinclair M.D. Performed By: Veronica Oliva RDCS 06/05/251945 <Electronically signed by Chris Bird MD> Cosigner Signature (if applicable): CC: Dr. Briseyda Sinclair MD~ Signed [facility] Work Phone: Consult note Author Tanika Bear [facility] Note Date/Time June 14, 2025 10:12am [facility] Medical Records Department [address] [place] [address] Consultation - Surgical 06/13/25 09 MR#: [id number] Acct: [id number] Name: COLEMAN DAVIES Rep #:[id number] : 1950 74 From: Tanika Bear MD PCP: Dr. Briseyda Sinclair MD Status:ADM IN Location: [place] [address] Assessment & Plan Assessment/Plan (1) Acute renal [...] question this time. Tanika Bear M.D. Pager: [phone] [facility] [address] [place] [address], [address] [place] [address] Office: [phone] HPI Consult Data Date of Consult: 06/14/25 [...] to coming inwith acute kidney injury, hyperkalemia. [facility] Medical History Cancer Alcohol use History of [...] coronary artery (~08/28/01) Atherosclerotic heart disease of [place] coronary artery without angina pectoris Home Medications [...] Unkno wn Rx 09/19 (Comfort EZ Pen Butler) finasteride 5 mg tablet 5 mg PO [...] Ectopy: None Charges/Coding Visit Charges Inpatient E&M: 11563 Init Hosp L3 06/14/25 1012 <Electronically signed by Tanika Bear MD> Cosigner Signature (if applicable): CC: Dr. Briseyda Sinclair MD~ Signed [facility] Work Phone: Consult note Author Geovanni Pathak [facility] Note Date/Time June 14, 2025 10:46am [facility] Medical Records Department [address] [place] [address] Pre-Anesthesia Evaluation 06/14/25 1029 MR#: [id number] Acct: [id number] Name: COLEMAN DAVIES Rep #:[id number] : 1950 74 From: Geovanni Hall PCP: Dr. Briseyda Sinclair MD Status:ADM IN Y Race: C Location: [place] [address] 2-1 ASA Classification* ASA Classification ASA Classification: [...] Dialysis catheter Anesthesia History Anesthesia History - staff nurse: Anesthesia History - staff nurse Hx Hospitalization Yes: 12/2024 TIA 05/28/25 08:19 [...] take am of surgery PONV PONV - staff nurse: PONV - staff nurse Female HX of Motion Sickness HX of N/V After Surgery Non-Smoker Duration of Surgery greater than 60 minutes Number of Risk Factors PONV Score Height & Weight Height & Weight: Anesthesia: Height & Weight Height 6 ft 06/14/25 10:05 Weight: 77.467 kg 06/14/25 10:05 Body Mass Index (BMI) 23.1 06/14/25 10:05 Respiratory Assessment Respiratory Assessment - staff nurse: Respiratory Tract Infection Hx - staff nurse Hx Respiratory Tract Infection No 06/13/25 20:23 STOP Sleep Apnea STOP Sleep Apnea - staff nurse: STOP Sleep Apnea - staff nurse Hx Hypertension Yes: CONTROLLED WITH MEDS 06/10/25 [...] Tobacco Use History Tobacco Use History - staff nurse: Tobacco Use History - staff nurse Tobacco Use Cigarettes 04/16/25 13:29 Smoking Status Former smoker 06/05/25 07:50 Hx Tobacco Use No 06/05/25 07:50 Years Smoking Packs Smoked per Day Smoking Cessation Date was No - quit smoking greater 06/05/25 07:50 within the last 15 years than 15 years ago Hx Smoking Cessation Date 08/16/01 06/05/25 07:50 Hx Smoking Cessation No 06/05/25 07:50 Counseling Hematologic Medial History Hematologic Hx - staff nurse: Hematologic Medical Hx - energy assistant Hx of Blood Transfusion No 06/05/25 07:50 [...] confused, unrespo /Reproduction History /Reproductive History - staff nurse: /Reproductive Hx- staff nurse Hx Now No 06/13/25 20:23 Gestational Age [...] mls @ 15 mls/hr 06/08/25 06:10 IV .[id number] PRN Saline Flush Sodium Chloride 250 mls @ 15 mls/hr 06/08/25 06:10 IV .[id number] PRN Additional IVPB Infusion Cefazolin Sodium 2 [...] 100 Unit/Ml Insuln.Pen SC Not Given ACHS [facility] Protocol Insulin Human Lispro 8 unit 06/12/25 16:00 06/14/25 06:43 Insulin Lispro 100 Unit/Ml Insuln.Pen SC Not Given TIDAC [facility] Isosorbide Mononitrate 30 mg 06/07/25 22:00 [...] coronary artery (~08/28/01) Atherosclerotic heart disease of [place] coronary artery without angina pectoris Home Medications [...] mcg (1,000 unit) tablet lancets 33 gauge ([facility] Delica #100 ea 05/04/24 Unk nown [...] Unkno wn Rx 1/ (Comfort EZ Pen Butler) finasteride 5 mg tablet 5 mg PO [...] MD Cosigner Signature: Date CC: ~ Signed [facility] Work Phone: Consult note Author Geovanni Pathak [facility] Note Date/Time June 15, 2025 4:18pm [facility] Medical Records Department [address] [place] [address] Anesthesia Postop Eval II 06/14/25 1312 MR#: [id number] Acct: [id number] Name: COLEMAN DAVIES Rep #:[id number] : 1950 74 From: Geovanni Hall PCP: Dr. Briseyda Sinclair MD Status:ADM IN Y Race: C Location: [place] [address] 2-1 Anesthesia Postop Eval I Sum Postop Eval Completion status Anesthesia document: Postop Eval 1 completed: Yes Anesthesia Postop Eval I Summary Anesthesia Postop Eval I Summary: Anesthesia Postop Eval I: Assessment Summary Airway patent Yes 06/14/25 12:50 CEMENT MASON APPRENTICE.TDOB Spontaneous unlabored Yes 06/14/25 12:50 CEMENT MASON APPRENTICE.TDOB respirations Mental status nausea No 06/14/25 12:50 CEMENT MASON APPRENTICE.TDOB Vomiting No 06/14/25 12:50 CEMENT MASON APPRENTICE.TDOB Anesthesia Postop Eval I: Fluid Summary Crystalloid volume administer 200 06/14/25 12:50 CEMENT MASON APPRENTICE.TDOB (ml) Colloids volume administered ( ml) Blood Product volume administered (ml) Total IV fluid infused 200 06/14/25 12:50 CEMENT MASON APPRENTICE.TDOB Anesthesia Postop Eval I: Summary Notes Anesthesia Complication No 06/14/25 12:50 CEMENT MASON APPRENTICE.TDOB Anesthesia Complication Comment: Post-operative progress note Anesthesia: Postop Eval II Evaluation Mental status: Awake and Calm Pain Level: 1 nausea: No Vomiting: No Complications Anesthesia Complication: No 06/14/25 1312 <Electronically signed by Geovanni Pathak MD> Date _ Geovanni Pathak MD Cosigner Signature: Date CC: ~ Signed [facility] Work Phone: Consult note Author Deion Ramirez [facility] Note Date/Time June 15, 2025 4:18pm [facility] Medical Records Department [address] [place] [address] Counseling Note - Pharmacy 06/15/25 1444 MR#: [id number] Acct: [id number] Name: COLEMAN DAVIES Rep #:[id number] : 1950 74 From: Deion Ramirez PCP: Dr. Briseyda Sinclair MD Status:ADM IN Location: [place] [id number] Counseling Pharmacy Service has performed discharge medication [...] (1,000 unit) tablet 25 mcg PO BID [id number]/04/21 lancets 33 gauge (OneTouch Delica Plus Lancet) [...] 32 gauge x 1/4 (Comfort EZ Pen Butler) #100 ea 01/04/25 finasteride 5 mg tablet 5 mg PO QHS PROSTATE 01/27/25 blood sugar diagnostic (PureWRXTouch Verio test strips) #100 ea 02/24/25 glimepiride [...] Signature (if applicable): Date CC: ~ Signed [facility] Work Phone: Discharge summary Author Ravinder [facility] Note Date/Time March 29, 2025 10:1 2am [facility] Medical Records Department [address] [place] [address] Emergency Department Summary 03/29/25 MR#: [id number] Acct: [id number] Name: COLEMAN DAVIES Rep #:[id number] : 1950 74 From: Ravinder Vance DO [...] as well but it resolved after taking qsch-fhw-yrjinld Imodium. He states this morning around 4:00 [...] heart and therefore comes in for evaluation [facility] Medical History Diabetes Myocardial infarct Lower urinary [...] coronary artery (~08/28/01) Atherosclerotic heart disease of [place] coronary artery without angina pectoris Home Medications [...] pain #25 tabs lancets 33 gauge ([facility] ea 05/04/24 Unk nown Rx Plus [...] Unkno wn Rx 1/4 (Comfort EZ Pen Butler) finasteride 5 mg tablet 5 mg PO [...] and his EKG does not show acute [place] and therefore I feel if his overall [...] % (Auto) 50.2 Lymph % (Auto) 31.8 Breathitt % (Auto) 10.5 H Eos % (Auto) [...] (DME) pen needle, diabetic [Comfort EZ Pen Butler] 32 gauge x 1/4 needle See Rx [...] MD [Primary Care Provider] - Print Language: Bangladeshi What to do if you have Problems For any increased pain, shortness of breath, bleeding, nausea or vomiting, chestpain, or any unexpected problems, contact your Primary Care Provider. Call [facility] ([phone]) or report to the closest Emergency Room. Call 911 if necessary. 03/29/25 0463 <Electronically signed by Ravinder Vance DO> Cosigner Signature (if applicable): CC: Dr. Briseyda Sinclair MD ~ Signed [facility] Work Phone: Discharge summary Author Blake Kapoor [facility] Note Date/Time June 05, 2025 5:56am [facility] Medical Records Department [address] [place] [address] Emergency Department Summary 06/05/25 MR#: [id number] Acct: [id number] Name: COLEMAN DAVIES Rep #:[id number] : 1950 74 From: Blake Kapoor MD [...] shrimp. He has had no alcohol use. [facility] Medical History Cancer Alcohol use History [...] coronary artery (~08/28/01) Atherosclerotic heart disease of [place] coronary artery without angina pectoris Home Medications [...] Unkno wn Rx 1/ (Comfort EZ Pen Butler) finasteride 5 mg tablet 5 mg PO [...] in agreement with this and requests a 9-ejzx-caivkn potassium level, and is agreeable to see [...] 82.3 H Lymph % (Auto) 11.2 L Breathitt % (Auto) 5.6 Eos % (Auto) 0.2 [...] Management Discussion w/another healthcare provider: Hospitalist and Program Attendant (Nephrology) Discharge Plan Dx/Rx/DC Orders Clinical Impression: Acute uremia, Acute renal failure, Hyperkalemia, diminished renal excretion, Vomiting Disposition Disposition: Acute Care Hospital [facility] What to do if you have Problems For any increased pain, shortness of breath, bleeding, nausea or vomiting, chestpain, or any unexpected problems, contact your Primary Care Provider. Call [facility] ([phone]) or report to the closest Emergency Room. Call 911 if necessary. 06/05/25 0556 <Electronically signed by Blake Kapoor MD> Cosigner Signature (if applicable): CC: Dr. Briseyda Sinclair MD ~ Signed [facility] Work Phone: Discharge summary Author Fawad Bates [facility] Note Date/Time June 15, 2025 1:56pm [facility] Medical Records Department [address] [place] [address] Instructions for Home/Discharge Instructions 06/15/25 1052 MR#: [id number] Acct: [id number] Name: COLEMAN DAVIES Rep #:[id number] : 1950 74 From: Fawad Hall PCP: [...] Vo; Tanika Bear Instructions Patient Instructions: RAD dispatch supervisor Instructions for Kidney Biopsy, RAD RN Procedural Sedation Discharge Orders/Prescriptions Prescriptions: New buspirone 10 mg tablet 10 mg PO TID 30 Days Qty: 90 0RF sennosides 8.6 mg tablet 17.2 mg PO BID PRN PRN (Reason: constipation) Qty: 0 0RF Rx Instructions: Icwy-ywr-rmjajqe. 2 tablet twice daily as needed for [...] (DME) pen needle, diabetic [Comfort EZ Pen Butler] 32 gauge x 1/4 needle See Rx [...] MD [Primary Care Provider, Internal Medicine - [facility]] Disposition Disposition (needs filled in before D/C Order can be placed): Home, Self Care 06/15/25 1356<Electronically signed by Fawad Bates MD>Fawad Bates MD CC: Dr. Tabby Zuniga MD; Dr. Richi Hope MD; Dr. Yohannes Santiago MD; Dr. Candy Vo DO; Dr. Briseyda Sinclair MD; Dr. Tanika Bear MD ~ Signed [facility] Work Phone: Discharge summary Author Fawad Bates [facility] Note Date/Time June 15, 2025 2:02pm [facility] Medical Records Department [address] [place] [address] Discharge Summary 06/15/25 1356 MR#: [id number] Acct: [id number] Name: COLEMAN DAVIES Rep #:[id number] : 1950 74 From: Fawad Hall PCP: Dr. Briseyda Sinclair MD Status:ADM IN Location: [place] [id number] Providers Date of Admission: 06/05/25 Date [...] diabetes mellitus without complications Qualifiers: Diabetes mellitus watermelon inspector insulin use: without intermediate use Diabetesmellitus complication status: with circulatory complication [...] fluctuates, today 7.70. BUN fluctuates between 70-90. Privacy Analyst report reviewed. Patient urine output is good. Hemodialysis today. Serologies are negative. Plan for kidney biopsy on Saturday. Likely tentative discharge on Saturday. 06/12: Patient had about 2500 mL of urine output. No significant fluid removal on dialysis here yesterday but mainly for electrolyte support. Discussed with the national sales director we will surgery. Plan for tunneled dialysis catheter and renalbiopsy on Saturday informed by the patient and his . Surgery consulted for tunneled dialysis catheter. 06/13: Good urine output. Bolaños catheter was removed yesterday. Was evaluated by national sales director. Plan for right IJ dialysis catheter removal [...] on as an outpatient. Discussed with the national sales director. Kidney biopsy will be discussed when report available as an outpatient by the national sales director Anion gap metabolic acidosis - Much improved [...] Dose Aspirin) 81 mg PO DAILY [facility] 07/05/21 cyanocobalamin (vitamin B-12) 5,000 mcg disintegrating tablet 1,000 mcg PO DAILYSUPPLEMENT 07/05/21 cholecalciferol (vitamin D3) 25 mcg (1,000 unit) tablet 25 mcg PO BID [id number]/04/21 lancets 33 gauge (OneTouch Delica Plus Lancet) [...] 32 gauge x 1/4 (Comfort EZ Pen Butler) #100 ea 01/04/25 finasteride 5 mg tablet [...] wants to go home. Discussed with the national sales director. Discussed with the patient and regarding discharge [...] Neut % (Auto) 59.3, Lymph % (Auto) 19.8,Breathitt % (Auto) 13.2 H, Eos % (Auto) [...] left inferior pole renal biopsy. Reading Location: [place] [address] D/C Instructions Weight Bearing Status: Weight bearing [...] Vo; Tanika Bear Instructions Patient Instructions: RAD dispatch supervisor Instructions for Kidney Biopsy, RAD RN Procedural Sedation Discharge Orders/Prescriptions Prescriptions: New buspirone 10 mg tablet 10 mg PO TID 30 Days Qty: 90 0RF sennosides 8.6 mg tablet 17.2 mg PO BID PRN PRN (Reason: constipation) Qty: 0 0RF Rx Instructions: Afpi-cgy-quzcxur. 2 tablet twice daily as needed for [...] (DME) pen needle, diabetic [Comfort EZ Pen Butler] 32 gauge x 1/4 needle See Rx [...] MD [Primary Care Provider, Internal Medicine - [facility]] Disposition Disposition (needs filled in before D/C Order can be placed): Home, Self Care Charges/Coding Visit Charges Inpatient E&M: 08946 Disch Hosp >30min 06/15/25 1402 <Electronically signed by Fawad Bates MD> Cosigner Signature (if applicable): CC: Dr. Yohannes Santiago MD; Dr. Briseyda Sinclair MD; Dr. Fawad Bates MD~ Signed [facility] Work Phone: Evaluation noteThere may be information available, but it has not been provided by the sender.[facility] Work Phone: Evaluation note* Diagnosis Adhesive capsulitis of right shoulder- Primary Adhesive capsulitis of shoulder [facility] Diagnosis Adhesive capsulitis of right shoulder Adhesive capsulitis of shoulder [facility] Diagnosis Adhesive capsulitis of right shoulder Adhesive capsulitis of shoulder [facility] Diagnosis Adhesive capsulitis of right shoulder Adhesive capsulitis of shoulder [facility] Diagnosis Adhesive capsulitis of right shoulder Adhesive capsulitis of shoulder [facility]* Diagnosis Onset Date Resolution Status Hyperglycemia resolved Lactic acidosis resolved Weakness resolved Atherosclerotic heart diseas e of [place] coronary artery without angina pectoris acute Cardiomyopathy, ischemic acu te Essential hypertension acute History of recent pneumonia acute Hypertriglyceridemia acute Presence of stent in coronary artery August, acute Type 2 diabetes mellitus acu te CKD (chronic kidney disease) stage 3, GFR 30-59 ml/min chronic Weakness resolved Atherosclerotic heart diseas e of [place] coronary artery without angina pectoris acute Bilateral carotid artery stenosis acute Essential hypertension acute Hemorrhagic cerebrovascular accident (CVA) acute History of recent pneumonia acute Hypertriglyceridemia acute Right carotid artery occlusion acute Type 2 diabetes mellitus acu te CKD (chronic kidney disease) stage 3, GFR 30-59 ml/min chronic [facility] Work Phone: Evaluation note* Diagnosis Onset Date Resolution Status Atherosclerotic heart diseas e of [place] coronary artery without angina pectoris acute Bilateral [...] ml/min chronic Atherosclerotic heart diseas e of [place] coronary artery without angina pectoris acute Cardiomyopathy, ischemic acu te Essential hypertension acute Presence of stent in coronary artery August, acute Pure hypercholesterolemia ac [place] [facility] Work Phone: Evaluation note* Diagnosis Onset [...] ml/min chronic Atherosclerotic heart diseas e of [place] coronary artery without angina pectoris acute Cardiomyopathy, ischemic acu te Essential hypertension acute Presence of stent in coronary artery August, acute Pure hypercholesterolemia ac [place] [facility]ness [facility] Work Phone: Evaluation note* Diagnosis Onset Date Resolution Status Atherosclerotic heart diseas e of [place] coronary artery without angina pectoris acute Bilateral carotid artery stenosis acute Essential hypertension acute Hemorrhagic cerebrovascular accident (CVA) acute Hypertriglyceridemia acute Multiple lacunar infarcts ac [place] Presence of stent in coronary artery August, acute Pure hypercholesterolemia ac [place] Right carotid artery occlusion acute Type 2 diabetes mellitus acu te CKD (chronic kidney disease) stage 3, GFR 30-59 ml/min [facility] Work Phone: Evaluation note* Diagnosis Onset Date Resolution Status Multiple lacunar infarcts ac [place] Right carotid artery occlusion acute Atherosclerotic heart diseas e of [place] coronary artery without angina pectoris acute Bilateral carotid artery stenosis acute Cardiomyopathy, ischemic acu te Hypertriglyceridemia acute Multiple lacunar infarcts ac [place] Pure hypercholesterolemia ac [place] CKD (chronic kidney disease) stage 3, GFR 30-59 ml/min chronic Essential hypertension chron ic Type 2 diabetes mellitus chr onic Carotid artery disease chron ic CKD (chronic kidney disease) stage 3, GFR 30-59 ml/min chronic Coronary artery disease real estate director ana m Dyslipidemia chronic Essential hypertension chron ic 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 chronic Presence of stent in coronary artery August, chronic Type 2 diabetes mellitus [facility] Work Phone: Evaluation note* Diagnosis Onset Date Resolution Status Carotid artery disease chron ic CKD (chronic kidney disease) stage 3, GFR 30-59 ml/min chronic Coronary artery disease real estate director ana m Dyslipidemia chronic Essential hypertension chron ic 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 chronic Presence of stent in coronary artery August, chronic Type 2 diabetes mellitus [facility] Work Phone: Evaluation note* Diagnosis Onset Date Resolution Status Acute sinusitis acute Atherosclerotic heart diseas e of [place] coronary artery without angina pectoris acute Bilateral carotid artery stenosis acute Hemorrhagic cerebrovascular accident (CVA) acute Hypertriglyceridemia acute Multiple lacunar infarcts ac [place] Right carotid artery occlusion acute CKD (chronic kidney disease) stage 3, GFR 30-59 ml/min chronic Coronary artery disease real estate director ana m Dyslipidemia chronic 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 chronic Presence of stent in coronary artery August, chronic Type 2 diabetes mellitus chr onic Anemia acute History of colon polyps acut e Carotid artery disease chron [facility] Work Phone: Evaluation note* Diagnosis Cerebral aneurysm- Primary Cerebral aneurysm, nonruptured Cerebrovascular accident (CVA) due to stenosis of left carotid artery (HCC) [facility] Diagnosis TIA (transient ischemic attack)- Primary Unspecified transient cerebral ischemia Cerebrovascular accident (CVA) due to stenosis of left carotid artery (HCC) [facility]* Diagnosis TIA (transient ischemic [...] HealthHistory and physical note Author Tabby Zuniga [facility] Note Date/Time June 05, 2025 6:04[facility] Medical Records Department [address] [place] [address] H&P Exam - Hospitalist 06/05/25 0542 MR#: [id number] Acct: [id number] Name: COLEMAN DAVIES Rep #:[id number] : 1950 74 From: Tabby Zuniga MD PCP: Dr. Briseyda Sinclair MD Status:ADM IN Location: [place] [address] HPI - General General Date of Admission: 06/05/25 Date of Service: 06/05/25 Chief Complaint: Intractable N/V HPI Narrative The patient is a 74 y/o M w/ PMHx: CKD stage III unclear subtype per previous GFR trending, GERD, Hx TIA/CVA, Hypothyroidism, HTN, HLD, Carotid disease, Former tobacco use, IDDM, CAD s/p PCI, Chronic normocytic anemia [facility] [facility] ED on 06/05/2025 with history of onset [...] anion gap 29, BUN/creatinine 92/8.74, GFR 6, daacvcz037, troponin 116 with most recently noted troponin prior to this 03/29/25 39, acute abdominal series without acute findings, EKG with very slight T wave peaking but no other acute changes or evidence of ischemia. In the ED patient ministered 1 L normal saline, Zofran 4 mg IV x 1 as well as Kayexalate 15 mg p.o. x 1. ED discussed case with Nephrology. [facility] Medical History Cancer Alcohol use History of [...] coronary artery (~08/28/01) Atherosclerotic heart disease of [place] coronary artery without angina pectoris Home Medications [...] Unkno wn Rx 09/19 (Comfort EZ Pen [place]) finasteride 5 mg tablet 5 mg PO [...] (Auto) 82.3 H, Lymph % (Auto) 11.2L, Breathitt % (Auto) 5.6, Eos % (Auto) 0.2, [...] s/p PCI, [facility] normocytic [facility] with [facility] of onset [...] Full Code. Charges/Coding Visit Charges Inpatient E&M: 97503 Init Hosp L3 06/05/25 0604 <Electronically signed by Tabby Zuniga MD> Cosigner Signature (if applicable): CC: Dr. Tabby Zuniga MD; Dr. Briseyda Sinclair MD~ Signed [facility] Work Phone: Hospital Discharge instructions Additional Instructions Plenty of fluids and rest. You are a little dehydrated. Tylenol as needed for body aches. Follow-up with your doctor if not improving.[facility] Work Phone: Hospital Discharge instructionsAmbulatory Orders* Neurology Location: None [facility] Work Phone: Hospital Discharge instructionsAdditional Instructions [facility]: [facility]: Hospital Discharge instructionsAmbulatory Orders* Endocrinology Location: None [facility] Work Phone: Hospital Discharge instructionsAmbulatory Orders* Nutrition Referral Location: None Selected [facility] Work Phone: InstructionsNo information available.[facility] Work Phone: Instructions* Attachments The following attachments cannot be sent through Care Everywhere. * Brain Aneurysm (Bangladeshi) * Risk Factors for Stroke (Bangladeshi) * Angiography (Bangladeshi) documented in this [facility] HealthProgress note Author Richi Hope [facility] Note Date/Time June 05, 2025 3:04pm [facility] Medical Records Department [address] [place] [address] Progress Note - Hospitalist 06/05/25 0757 MR#: [id number] Acct: [id number] Name: COLEMAN DAVIES Rep #:[id number] : 1950 74 From: Richi Hope MD [...] (Auto) 82.3 H, Lymph % (Auto) 11.2L, Breathitt % (Auto) 5.6, Eos % (Auto) 0.2, [...] bilateral basilar atelectatic pulmonary changes. Reading Location: [place] [address] Rhythm Strip Rhythm Strip: Sinus Rhythm Rate: [...] 60 . Minutes Charges/Coding Procedures Hospitalists Procedures: 40492 Critical Care 1st Hr 06/05/25 0945 <Electronically [...] CC time; 35 min Procedures Hospitalists Procedures: 48071 Advncd Care Plan addl 30 Min 06/05/25 1504<Electronically signed by Richi Hope MD> Cosigner Signature (if applicable): cc: ~* Signed [facility] Work Phone: Progress note Author Richi Hope [facility] Note Date/Time June 06, 2025 10:22am [facility] Medical Records Department [address] [place] [address] Progress Note - Hospitalist 06/06/25 0752 MR#: [id number] Acct: [id number] Name: COLEMAN DAVIES Rep #:[id number] : 1950 74 From: Richi Hope MD [...] Clarity Clear, Urine pH 6.0, Ur Specific Sullivan 1.015, Urine Protein 100 H, Urine Glucose [...] (Auto) 68.8, Lymph % (Auto) 13.7 L, Breathitt % (Auto) 16.1 H, Eos % (Auto) [...] 05:50 IMPRESSION: Right renal cyst. Reading Location: [id number] Echocardiogram 06/05/25 06:53 Interpretation Summary Normal LV size. The left ventricular ejection fraction is 60 %. Mild segmental systolic dysfunction (see wall motion). Septal [place] : Akinetic. Contrast injection was performed. Ordering [...] bibasilar crackles Charges/Coding Visit Charges Inpatient E&M: 45281 Subs Hosp L3 06/06/25 1022 <Electronically signed by Richi Hope MD> Cosigner Signature (if applicable): CC: ~ Signed [facility] Work Phone: Progress note Author Candy Vo [facility] Note Date/Time June 07, 2025 7:53pm [facility] Medical Records Department [address] [place] [address] Progress Note - Hospitalist 06/07/25 0711 MR#: [id number] Acct: [id number] Name: COLMEAN DAVIES Rep #:[id number] : 1950 74 From: Candy Vo DO PCP: Dr. Briseyda Sinclair MD Status:ADM IN Location: [place] [address]- Reason for Visit Chief Complaint: Intractable N/V [...] (Auto) 71.0 H, Lymph % (Auto) 12.1 L,Breathitt % (Auto) 14.5 H, Eos % (Auto) [...] Full code Charges/Coding Visit Charges Inpatient E&M: 57749 Subs Hosp L2 06/07/251952 <Electronically signed by Candy Vo DO> Cosigner Signature (if applicable): CC: ~ Signed [facility] Work Phone: Progress note Author Yohannes Santiago [facility] Note Date/Time June 07, 2025 10:58am [facility] Medical Records Department [address] [place] [address] Progress Note - Nephrology 06/07/25 1055 MR#: [id number] Acct: [id number] Name: COLEMAN DAVIES Rep #:[id number] : 1950 74 From: Yohannes doran MD [...] (Auto) 71.0 H, Lymph % (Auto) 12.1 L,Breathitt % (Auto) 14.5 H, Eos % (Auto) [...] Type 2 diabetes mellitus: QUALIFIERS: Diabetes mellitus watermelon inspector insulin use: without watermelon inspector use Diabetes mellitus complication status: with circulatory [...] hydronephrosis Was not particularly hypotensive. Denies any ilfl-izu-ahomkya supplements. He started taking a probiotic due [...] about 24 years ago. This was in [place]. 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 Garrison here. Has not had any strokes recently. Will check with cardiology to see if it is safe to hold Effient for the kidney biopsy. Discussed with at bedside 06/07/25 1058 <Electronically signed by Yohannes Santiago MD> Cosigner Signature (if applicable): CC: ~ Signed [facility] Work Phone: Progress note Author Candy Vo [facility] Note Date/Time June 08, 2025 5:52pm [facility] Medical Records Department [address] [place] [address] Progress Note - Hospitalist 06/08/25 0750 MR#: [id number] Acct: [id number] Name: COLEMAN DAVIES Rep #:[id number] : 1950 74 From: Candy Vo DO PCP: Dr. Briseyda Sinclair MD Status:ADM IN Location: [place] [address] Reason for Visit Chief Complaint: Intractable N/V [...] (Auto) 66.7, Lymph % (Auto) 12.7 L, Breathitt % (Auto) 15.0 H, Eos % (Auto) [...] mild degree of vascular congestion. Reading Location: [facility] Rhythm Strip Rhythm Strip: Sinus Rhythm Rate: [...] Full code Charges/Coding Visit Charges Inpatient E&M: 11825 Subs Hosp L2 06/08/25 1752 <Electronically signed by Candy Vo DO> Cosigner Signature (if applicable): CC: ~ Signed [facility] Work Phone: Progress note Author Yohannes Santiago [facility] Note Date/Time June 08, 2025 12:51pm [facility] Medical Records Department [address] [place] [address] Progress Note - Nephrology 06/08/25 1250 MR#: [id number] Acct: [id number] Name: COLEMAN DAVIES Rep #:[id number] : 1950 74 From: Yohannes doran MD PCP: Dr. Briseyda Sinclair MD Status:ADM IN Location: [place] [address] Subjective Subjective seen on HD today Objective [...] (Auto) 66.7, Lymph % (Auto) 12.7 L, Breathitt % (Auto) 15.0 H, Eos % (Auto) [...] Type 2 diabetes mellitus: QUALIFIERS: Diabetes mellitus watermelon inspector insulin use: without intermediate use Diabetes mellitus complication status: with circulatory [...] hydronephrosis Was not particularly hypotensive. Denies any okzx-ssq-efwjstg supplements. He started taking a probiotic due [...] Cosigner Signature (if applicable): CC: ~ Signed [facility] Work Phone: Progress note Author Candy Vo [facility] Note Date/Time June 09, 2025 9:22pm [facility] Medical Records Department [address] [place] [address] Progress Note - Hospitalist 06/09/25728 MR#: [id number] Acct: [id number] Name: COLEMAN DAVIES Rep #:[id number] : 1950 74 From: Candy Vo DO PCP: Dr. Briseyda Sinclair MD Status:ADM IN Location: [place] [address] Reason for Visit Chief Complaint: Intractable N/V [...] (Auto) 64.2, Lymph % (Auto) 13.4 L, Breathitt % (Auto) 17.6 H, Eos % (Auto) [...] Full code Charges/Coding Visit Charges Inpatient E&M: 67015 Subs Hosp L2 06/09/252121 <Electronically signed by Candy Vo DO> Cosigner Signature (if applicable): CC: ~ Signed [facility] Work Phone: Progress note Author Yohannes Santiago [facility] Note Date/Time June 09, 2025 10:56am [facility] Medical Records Department [address] [place] [address] Progress Note - Nephrology 06/09/25 1055 MR#: [id number] Acct: [id number] Name: COLEMAN DAVIES Rep #:[id number] : 1950 74 From: Yohannes doran MD PCP: Dr. Briseyda Sinclair MD Status:ADM IN Location: [place] [address] Subjective Subjective Urine output is good. Objective [...] (Auto) 64.2, Lymph % (Auto) 13.4 L, Breathitt % (Auto) 17.6 H, Eos % (Auto) [...] Type 2 diabetes mellitus: QUALIFIERS: Diabetes mellitus intermediate insulin use: without intermediate use Diabetes mellitus complication status: with circulatory [...] hydronephrosis Was not particularly hypotensive. Denies any fsgt-xmj-vyromvc supplements. He started taking a probiotic due [...] Cosigner Signature (if applicable): CC: ~ Signed [facility] Work Phone: Progress note Author Candy Vo [facility] Note Date/Time June 10, 2025 3:15pm [facility] Medical Records Department [address] [place] [address] Progress Note - Hospitalist 06/10/25 0738 MR#: [id number] Acct: [id number] Name: COLEMAN DAVIES Rep #:[id number] : 1950 74 From: Candy Vo DO PCP: Dr. Briseyda Sinclair MD Status:ADM IN Location: [place] [address] Reason for Visit Chief Complaint: Intractable N/V [...] Albumin (NATHAN) 2.3 L, Albumin/Globulin (NATHAN) 1.1, Hzysj-8-Yoeiclhtt NATHAN 0.2, Qkhfy-3-Zwuctwwof NATHAN 0.9, Beta-Globulins (NATHAN) 0.7, Gamma Globulins [...] Full code Charges/Coding Visit Charges Inpatient E&M: 17568 Subs Hosp L2 06/10/25 1515 <Electronically signed by Candy Vo DO> Cosigner Signature (if applicable): CC: ~ Signed [facility] Work Phone: Progress note Author Yohannes Santiago [facility] Note Date/Time June 10, 2025 4:43pm [facility] Medical Records Department [address] [place] [address] Progress Note - Nephrology 06/10/25 1642 MR#: [id number] Acct: [id number] Name: COLEMAN DAVIES Rep #:[id number] : 1950 74 From: Yohannes doran MD PCP: Dr. Briseyda Sinclair MD Status:ADM IN Location: [place] [address] Subjective Subjective no new complaints Objective Data [...] 196, IgM 21, Immunofixation Screen Comment, Albumin (NAHTAN) 2.3 L, Albumin/Globulin (NATHAN) 1.1, Mwqcg-1-Eptpatilc NATHAN 0.2, Lvgnb-1-Khlwaibsq NATHAN 0.9, Beta-Globulins (NATHAN) 0.7, Gamma Globulins [...] Type 2 diabetes mellitus: QUALIFIERS: Diabetes mellitus watermelon inspector insulin use: without watermelon inspector use Diabetes mellitus complication status: with circulatory [...] hydronephrosis Was not particularly hypotensive. Denies any lpoj-hox-czwxasj supplements. He started taking a probiotic due [...] on labs tomorrow. dw family bedside 06/10/25 9351 <Electronically signed by Yohannes Santiago MD> Cosigner Signature (if applicable): CC: ~ Signed [facility] Work Phone: Progress note Author Fawad Bates [facility] Note Date/Time June 11, 2025 3:44pm [facility] Medical Records Department [address] [place] [address] Progress Note - Hospitalist 06/11/25914 MR#: [id number] Acct: [id number] Name: COLEMAN DAVIES Rep #:[id number] : 1950 74 From: Fawad Hall PCP: Dr. Briseyda Sinclair MD Status:ADM IN Location: [place] [address] Reason for Visit Chief Complaint: Intractable N/V [...] (Auto) 59.8, Lymph % (Auto) 17.4 L, Breathitt % (Auto) 15.4 H, Eos % (Auto) [...] and a stroke in the past. Had [place]/cardiac stent in 2000. Has a stroke with [...] fluctuates, today 7.70. BUN fluctuates between 70-90. Privacy Analyst report reviewed. Patient urine output is good. [...] Full code Charges/Coding Visit Charges Inpatient E&M: 74620 Subs Hosp L2 06/11/25 1542 <Electronically signed by Fawad Bates MD> Cosigner Signature (if applicable): CC: ~ Signed [facility] Work Phone: Progress note Author Yohannes Santiago [facility] Note Date/Time June 11, 2025 2:23pm [facility] Medical Records Department [address] [place] [address] [place] [address] Progress Note - Nephrology 06/11/25 1422 MR#: [id number] Acct: [id number] Name: COLEMAN DAVIES Rep #:[id number] : 1950 74 From: Yohannes doran MD PCP: Dr. Briseyda Sinclair MD Status:ADM IN Location: [place] [address] Subjective Subjective good urine output. cr higher. [...] (Auto) 59.8, Lymph % (Auto) 17.4 L, Breathitt % (Auto) 15.4 H, Eos % (Auto) [...] Type 2 diabetes mellitus: QUALIFIERS: Diabetes mellitus intermediate insulin use: without watermelon inspector use Diabetes mellitus complication status: with circulatory [...] hydronephrosis Was not particularly hypotensive. Denies any lcwf-lbv-qvlxldo supplements. He started taking a probiotic due [...] Cosigner Signature (if applicable): CC: ~ Signed [facility] Work Phone: Progress note Author Fawad Bates [facility] Note Date/Time June 12, 2025 12:50pm [facility] Medical Records Department [address] [place] [address] Progress Note - Hospitalist 06/12/25 1240 MR#: [id number] Acct: [id number] Name: COLEMAN DAVIES Rep #:[id number] : 1950 74 From: Fawad Hall PCP: Dr. Briseyda Sinclair MD Status:ADM IN Location: [place] [address] Reason for Visit Chief Complaint: Intractable N/V [...] (Auto) 58.0, Lymph % (Auto) 17.9 L, Breathitt % (Auto) 16.9 H, Eos % (Auto) [...] and a stroke in the past. Had [place]/cardiac stent in 2000. Has a stroke with [...] fluctuates, today 7.70. BUN fluctuates between 70-90. Privacy Analyst report reviewed. Patient urine output is good. Hemodialysis today. Serologies are negative. Plan for kidney biopsy on Saturday. Likely tentative discharge on Saturday. 06/12: Patient had about 2500 mL of urine output. No significant fluid removal on dialysis here yesterday but mainly for electrolyte support. Discussed with the national sales director we will surgery. Plan for tunneled dialysis [...] Full code Charges/Coding Visit Charges Inpatient E&M: 68468 Subs Hosp L2 06/12/25 1250 <Electronically signed by Fawad Bates MD> Cosigner Signature (if applicable): CC: ~ Signed [facility] Work Phone: Progress note Author Luis Alberto Oro [facility] Note Date/Time June 12, 2025 5:21pm [facility] Medical Records Department [address] [place] [address] Progress Note - Nephrology 06/12/258 MR#: [id number] Acct: [id number] Name: COLEMAN DAVIES Rep #:[id number] : 1950 74 From: Luis Alberto Oro MD PCP: Dr. Briseyda Sinclair MD Status:ADM IN Location: [place] [address] Subjective Subjective feels well no new complaints [...] (Auto) 58.0, Lymph % (Auto) 17.9 L, Breathitt % (Auto) 16.9 H, Eos % (Auto) [...] Type 2 diabetes mellitus: QUALIFIERS: Diabetes mellitus watermelon inspector insulin use: without watermelon inspector use Diabetes mellitus complication status: with circulatory [...] hydronephrosis Was not particularly hypotensive. Denies any yond-tqx-ddwuvjq supplements. He started taking a probiotic due [...] Cosigner Signature (if applicable): CC: ~ Signed [facility] Work Phone: Progress note Author Fawad Bates [facility] Note Date/Time June 13, 2025 11:45am [facility] Medical Records Department [address] [facility] [place] [address] Progress Note - Hospitalist 06/13/25 1142 MR#: [id number] Acct: [id number] Name: ANTHONYCOLEMAN JOSEPH Rep #:[id number] : 1950 74 From: Fawad Hall PCP: Dr. Briseyda Sinclair MD Status:ADM IN Location: [place] [address] Reason for Visit Chief Complaint: Intractable N/V [...] and a stroke in the past. Had [place]/cardiac stent in 2000. Has a stroke with [...] fluctuates, today 7.70. BUN fluctuates between 70-90. Privacy Analyst report reviewed. Patient urine output is good. Hemodialysis today. Serologies are negative. Plan for kidney biopsy on Saturday. Likely tentative discharge on Saturday. 06/12: Patient had about 2500 mL of urine output. No significant fluid removal on dialysis here yesterday but mainly for electrolyte support. Discussed with the national sales director we will surgery. Plan for tunneled dialysis catheter and renalbiopsy on Saturday informed by the patient and his . Surgery consulted for tunneled dialysis catheter. 06/13: Good urine output. Bolaños catheter was removed yesterday. Was evaluated by national sales director. Plan for right IJ dialysis catheter removal [...] Full code Charges/Coding Visit Charges Inpatient E&M: 43252 Subs Hosp L2 06/13/25 1145 <Electronically signed by Fawad Bates MD> Cosigner Signature (if applicable): CC: ~ Signed [facility] Work Phone: Progress note Author Luis Alberto Oro [facility] Note Date/Time June 13, 2025 3:14pm [facility] Medical Records Department [address] [place] [address] Progress Note - Nephrology 06/13/25 1513 MR#: [id number] Acct: [id number] Name: COLEMAN DAVIES Rep #:[id number] : 1950 74 From: Luis Alberto Oro MD PCP: Dr. Briseyda Sinclair MD Status:ADM IN Location: [place] [address] Subjective Subjective feels well no new complaints [...] Type 2 diabetes mellitus: QUALIFIERS: Diabetes mellitus watermelon inspector insulin use: without watermelon inspector use Diabetes mellitus complication status: with circulatory [...] hydronephrosis Was not particularly hypotensive. Denies any aggg-ylx-nqtlhzs supplements. He started taking a probiotic due [...] Cosigner Signature (if applicable): CC: ~ Signed [facility] Work Phone: Progress note Author Pamela Antunez [facility] Note Date/Time June 14, 2025 10:17am [facility] Medical Records Department [address] [place] [address] Progress Note - Surgery 06/14/25 1012 MR#: [id number] Acct: [id number] Name: COLEMAN DAVIES Rep #:[id number] : 1950 74 From: Pamela BACON PA-C PCP: Dr. Briseyda Sinclair MD Status:ADM IN Location: [place] [address] Subjective Subjective Patient evaluated resting comfortably at [...] (Auto) 62.2, Lymph % (Auto) 17.6 L, Breathitt % (Auto) 12.5 H, Eos % (Auto) [...] following this patient in conjunction with Dr. Baer. She will independently evaluate this patient. Labs reviewed Plan to have tunneled dialysis catheter placed on right side of chest possible left Patient to have kidney biopsy today and dialysis We will continue to monitor this patient Charges/Coding Visit Charges Inpatient E&M: 22444 Subs Hosp L1 (pre-op; no charge) 06/14/25 1017 <Electronically signed by Pamela BACON PA-C> Cosigner Signature (if applicable): CC: ~ Signed [facility] Work Phone: Progress note Author Fawad Bates [facility] Note Date/Time June 14, 2025 5:10pm [facility] Medical Records Department [address] [place] [address] Progress Note - Hospitalist 06/14/25 1706 MR#: [id number] Acct: [id number] Name: COLEMAN DAVIES Rep #:[id number] : 1950 74 From: Fawad Hall PCP: Dr. Briseyda Sinclair MD Status:ADM IN Location: [place] [address] Reason for Visit Chief Complaint: Intractable N/V [...] (Auto) 62.2, Lymph % (Auto) 17.6 L, Breathitt % (Auto) 12.5 H, Eos % (Auto) [...] right-sided IJ catheter. No pneumothorax. Reading Location: [place] [address] Rhythm Strip Rhythm Strip: Sinus Rhythm Rate: [...] fluctuates, today 7.70. BUN fluctuates between 70-90. Privacy Analyst report reviewed. Patient urine output is good. Hemodialysis today. Serologies are negative. Plan for kidney biopsy on Saturday. Likely tentative discharge on Saturday. 06/12: Patient had about 2500 mL of urine output. No significant fluid removal on dialysis here yesterday but mainly for electrolyte support. Discussed with the national sales director we will surgery. Plan for tunneled dialysis catheter and renalbiopsy on Saturday informed by the patient and his . Surgery consulted for tunneled dialysis catheter. 06/13: Good urine output. Bolaños catheter was removed yesterday. Was evaluated by national sales director. Plan for right IJ dialysis catheter removal [...] Full code Charges/Coding Visit Charges Inpatient E&M: 11721 Subs Hosp L2 06/14/25 1710 <Electronically signed by Fawad Bates MD> Cosigner Signature (if applicable): CC: ~ Signed [facility] Work Phone: Progress note Author Yohannes Santiago [facility] Note Date/Time June 15, 2025 12:52pm [facility] Medical Records Department [address] [place] [address] Progress Note - Nephrology 06/15/25 1251 MR#: [id number] Acct: [id number] Name: COLEMAN DAVIES Rep #:[id number] : 1950 74 From: Yohannes doran MD PCP: Dr. Briseyda Sinclair MD Status:ADM IN Location: [place] [address]- Subjective Subjective s/p biopsy Objective Data Objective [...] Neut % (Auto) 59.3, Lymph % (Auto) 19.8,Breathitt % (Auto) 13.2 H, Eos % (Auto) [...] right-sided IJ catheter. No pneumothorax. Reading Location: [facility] 06/15/25 09:00 IMPRESSION: Successful CT-guided left inferior pole renal biopsy. Reading Location: [place] [address] Rhythm Strip Rhythm Strip: Sinus Rhythm Rate: [...] Type 2 diabetes mellitus: QUALIFIERS: Diabetes mellitus watermelon inspector insulin use: without watermelon inspector use Diabetes mellitus complication status: with circulatory [...] hydronephrosis Was not particularly hypotensive. Denies any crxy-lmz-lzukrjb supplements. He started taking a probiotic due [...] Cosigner Signature (if applicable): CC: ~ Signed [facility] Work Phone: Progress note Author Briseyda Sinclair [facility] Note Date/Time June 30, 2025 9 :15am [facility] [address] [place] [address] OFFICE VISIT Date of Service: 06/30/25 MR#: [id number] Acct: [id number] Patient: COLEMAN DAVIES Rep # : [id number] : 1950 Provider: LUCY NURS E Age/Sex: 75/M Location: [facility] Status: Signed Intake Vital Signs 06/21/25 07:58 [...] Performing Provider: Briseyda Sinclair MD Performing Location: [facility] Administered by: Nati Taylor RN on 06/30/25 09:13 Dose Route Admin Location Dispensed Lot Number Expiration Date Pack age NDC NDC Rv Technician 0.5 mL IM Right Deltoid 0.5 mL [id number] 08/21/26 9303-5782-49 [id number] [employer] D VIS Given Date [...] cano MD> Date _ [facility]da Sinclair [facility] Signature: Date (if applicable) CC: ~ [facility] Work Phone: Reason for referral (narrative)No reason for referral information [facility] Work Phone: Chief Complaint Chief Complaint Description Start Date right shoulder pain Preliminary chief co mplaint data, not yet signed by the author as of Advance Directives No Advanced Directives Records Found Advance Directive Response Recorded Date/ Time Living Will No January 02, 2022 6:59am Power of Medical Instructor No January 02 6:59am Advance Directive Response Recorded Date/ Time Living Will No January 08, 2022 8:34am Power of Medical Instructor No January 08 8:34am Advance Directive Response Recorded Date/ Time Advance Directives on File Yes Alex sunshine 2021 6:55am Name of Medical Power of Medical Instructor Basim Davies-wi fe June 01, 2022 6:55am Advance Directives Yes May 6:55am Living Will Yes June 01, 2022 6:55am Power of Medical Instructor Yes May 6:55am Advance Directive Response Recorded Date/ Time Advance Directives Yes May 5:55am Living Will Yes June 01, 2022 5:55am Power of Medical Instructor Yes May 5:55am Advance Directive Response Recorded Date/ Time Advance Directives Yes May 6:55am Living Will Yes June 01, 2022 6:55am Power of Medical Instructor Yes May 6:55am Advance Directive Response Recorded Date/ Time Name of Medical Power of Medical Instructor BASIM DAVIES August 20, 2023 3:43am Advance Directives Yes May 5:55am Living Will Yes August 20 3:43am Power of Medical Instructor Yes August 20, 2023 3:43am Advance Directive Response Recorded Date/ Time Name of Medical Power of Medical Instructor BASIM DAVIES August 20, 2023 3:43am Name of Medical Power of Medical Instructor August 24, 2023 7:32am Advance Directives Yes May 5:55am Living Will Yes August 24 7:32am Power of Medical Instructor Yes August 24, 2023 7:32am Advance Directive Response Recorded Date/ Time Name of Medical Power of Medical Instructor BASIM DAVIES August 20, 2023 4:43am Name of Medical Power of Medical Instructor August 24, 2023 8:32am Name of Medical Power of Medical Instructor November 29, 2023 2:36pm Advance Directives Yes May 6:55am Living Will Yes November 29, 2023 2:36pm Power of Medical Instructor Yes November 28 2:36pm Advance Directive Response Recorded Date/ Time Living Will Yes February 27, 2024 2:04pm Power of Medical Instructor Yes February 26 2:04pm Advance Directives Yes May 6:55am Advance Directive Response Recorded Date/ Time Advance Directives Yes May 6:55am Advance Directive Response Recorded Date/ Time Do you have a Healthcare Power of Medical Instructor? Yes January 12, 2025 7:05pm Name of Medical Power of Medical Instructor January 12, 2025 7:05pm Advance Directives Yes May 6:55am Advance Directive Response Recorded Date/ Time Do you have a Healthcare Power of Medical Instructor? Yes January 12, 2025 7:05pm Name of Medical Power of Medical Instructor January 12, 2025 7:05pm Do you have a Healthcare Power of Medical Instructor? Yes March 29, 2025 6:22am Advance Directives Yes May 6:55am Advance Directive Response Recorded Date/ Time Do you have a Healthcare Power of Medical Instructor? Yes January 12, 2025 7:05pm Name of Medical Power of Medical Instructor January 12, 2025 7:05pm Do you have a Healthcare Power of Medical Instructor? Yes March 29, 2025 6:22am Advance Directives Yes April 16 1:29pm Advance Directive Response Recorded Date/ Time Advance Directives Yes April 16 1:29pm Do you have a Healthcare Power of Medical Instructor? Yes January 12, 2025 7:05pm Name of Medical Power of Medical Instructor January 12, 2025 7:05pm Do you have a Healthcare Power of Medical Instructor? Yes March 29, 2025 6:22am Advance Directive Response Recorded Date/ Time Advance Directives Yes April 16 1:29pm Do you have a Healthcare Power of Medical Instructor? Yes March 29, 2025 6:22am Do you have a Healthcare Power of Medical Instructor? Yes June 05, 2025 7:50am Name of Medical Power of Medical Instructor Basim, spouse June 05, 2025 7:50am Advance Directive Response Recorded Date/ Time Advance Directives Yes April 16 12:29pm Do you have a Healthcare Power of Medical Instructor? Yes March 29, 2025 5:22am Do you have a Healthcare Power of Medical Instructor? 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 Amb Documentation Amb Documentation HYPERGLYCEMIA, WEAKNESS [...] Lactic acidosis Weakness Atherosclerotic heart disease of [place] coronary artery without angina pectoris Cardiomyopathy, ischemic Essential hypertension History of recent pneumonia Hypertriglyceridemia Presence of stent in coronary artery Type 2 diabetes mellitus CKD (chronic kidney disease) stage 3, GFR 30-59 ml/min Weakness Atherosclerotic heart disease of [place] coronary artery without angina pectoris Bilateral carotid [...] for Visit Atherosclerotic hear t disease of [place] coronary artery without angina pectoris Bilateral carotid [...] GFR 30-59 ml/min Atherosclerotic heart disease of [place] coronary artery without angina pectoris Cardiomyopathy, ischemic [...] GFR 30-59 ml/min Atherosclerotic heart disease of [place] coronary artery without angina pectoris Cardiomyopathy, ischemic Essential hypertension Presence of stent in coronary artery Pure hypercholesterolemia Shortness of breath Chief Complaint 6 M FU Reason for Visit Atherosclerotic hear t disease of [place] coronary artery without angina pectoris Bilateral carotid [...] carotid artery occlusion Atherosclerotic heart disease of [place] coronary artery without angina pectoris Bilateral carotid [...] Visit Acute sinusitis Atherosclerotic heart disease of [place] coronary artery without angina pectoris Bilateral carotid [...] 2024 3:24pm Atherosclerotic heart diseas e of [place] coronary artery without angina pectoris November 09, [...] 2024 3:24pm Atherosclerotic heart diseas e of [place] coronary artery without angina pectoris November 09, [...] 2024 3:24pm Atherosclerotic heart diseas e of [place] coronary artery without angina pectoris November 09, [...] Admit Date Atherosclerotic heart diseas e of [place] coronary artery without angina pectoris November 09, 2024 1:18pm Bilateral carotid artery stenosis Februa 2024 1:18pm Dyslipidemia November 09, 2024 1:18pm Essential hypertension November 09 1:18pm Type 2 diabetes mellitus November 09, 2024 1:18pm TIA (transient ischemic attack) January 132024 3:02pm Atherosclerotic heart diseas e of [place] coronary artery without angina pectoris January 27, [...] Admit Date Atherosclerotic heart diseas e of [place] coronary artery without angina pectoris November 09, 2024 1:18pm Bilateral carotid artery stenosis Februa 2024 1:18pm Dyslipidemia November 09, 2024 1:18pm Essential hypertension November 09 1:18pm Type 2 diabetes mellitus November 09, 2024 1:18pm TIA (transient ischemic attack) January 132024 3:02pm Atherosclerotic heart diseas e of [place] coronary artery without angina pectoris January 27, [...] Admit Date Atherosclerotic heart diseas e of [place] coronary artery without angina pectoris November 09, 2024 1:18pm Bilateral carotid artery stenosis Februa 2024 1:18pm Dyslipidemia November 09, 2024 1:18pm Essential hypertension November 09 1:18pm Type 2 diabetes mellitus November 09, 2024 1:18pm TIA (transient ischemic attack) January 132024 3:02pm Atherosclerotic heart diseas e of [place] coronary artery without angina pectoris January 27, [...] 132024 3:02pm Atherosclerotic heart diseas e of [place] coronary artery without angina pectoris January 27, [...] 132024 3:02pm Atherosclerotic heart diseas e of [place] coronary artery without angina pectoris January 27, [...] 132024 3:02pm Atherosclerotic heart diseas e of [place] coronary artery without angina pectoris January 27, [...] 162024 2:06pm Atherosclerotic heart diseas e of [place] coronary artery without angina pectoris April 28, [...] TEST RESULTS April 12, 2025 12:5 0pm [facility] /14 CP April 28, 2025 2: 06pm Diarrhea May 03, 2025 1: 37pm E-ORDER May 06, 2025 1: 42pm Dr. Blackman wanted pt seen again Augus t 2024 3:18pm Reason for Visit Admit Date TIA (transient ischemic attack) January 132024 3:02pm Atherosclerotic heart diseas e of [place] coronary artery without angina pectoris January 27, [...] 162024 2:06pm Atherosclerotic heart diseas e of [place] coronary artery without angina pectoris April 28, 2025 2:06pm Bilateral carotid artery stenosis April 28, 2025 2:06pm Atherosclerotic heart diseas e of [place] coronary artery without angina pectoris May 03, 2025 1:37pm Essential hypertension May 03, 2025 1:37pm Type 2 diabetes mellitus May 03 1:37pm Diarrhea May 03, 2025 1: 37pm Chief Complaint Admit Date TIA, R/O AFIB February 19, 2025 6:34a m 30 DAY MONIOR February 19, 2025 8:00a m chest pain, SOB March 29, 2025 6:19 am TEST RESULTS April 12, 2025 12:5 0pm [facility] /14 CP April 28, 2025 2: 06pm [...] 162024 2:06pm Atherosclerotic heart diseas e of [place] coronary artery without angina pectoris April 28, 2025 2:06pm Bilateral carotid artery stenosis April 28, 2025 2:06pm Atherosclerotic heart diseas e of [place] coronary artery without angina pectoris May 03, [...] ELEVATED T ROP June 15, 2025 1:56pm [facility] PCU Discharge FU June 21, 2025 7 :41am Chief Complaint Admit Date chest pain, SOB March 29, 2025 6:19 am TEST RESULTS April 12, 2025 12:5 0pm [facility] 14 CP April 28, 2025 2: 06pm [...] 162024 2:06pm Atherosclerotic heart diseas e of [place] coronary artery without angina pectoris April 28, 2025 2:06pm Bilateral carotid artery stenosis April 28, 2025 2:06pm Atherosclerotic heart diseas e of [place] coronary artery without angina pectoris May 03, [...] TEST RESULTS April 12, 2025 12:5 0pm [facility] /14 CP April 28, 2025 2: 06pm [...] 162024 2:06pm Atherosclerotic heart diseas e of [place] coronary artery without angina pectoris April 28, 2025 2:06pm Bilateral carotid artery stenosis April 28, 2025 2:06pm Atherosclerotic heart diseas e of [place] coronary artery without angina pectoris May 03, [...] Discharge Specialty Diagnoses / Procedures Referred By [place] t Referred To Contact Physical Therapy / PHYSICAL THERAPY Diagnoses right shoulder pain Procedures NEW RS PT ORTH Eloy Fragoso [address] [address] Kajal Logan, PT [address] [place] [address] Referral ID Status Reason Start Date Expiration Date V isits Requested Visits Authorized [id number] Authorized 09/16/2021 09/15/2022 99 99 Reason Comments [...] or prosecute any alcohol or drug abuse patient.[facility] the event this information is protected by the Federal Confidentiality of Alcohol and Drug Abuse Patient Records regulations: The Federal rules restrict any use of the information to criminally investigate or prosecute any alcohol or drug abuse patient.[facility] the event this information is protected by the Federal Confidentiality of Alcohol and Drug Abuse Patient Records regulations: The Federal rules restrict any use of the information to criminally investigate or prosecute any alcohol or drug abuse patient.[facility] the event this information is protected by the Federal Confidentiality of Alcohol and Drug Abuse Patient Records regulations: The Federal rules restrict any use of the information to criminally investigate or prosecute any alcohol or drug abuse patient.[facility] the event this information is protected by the Federal Confidentiality of Alcohol and Drug Abuse Patient Records regulations: The Federal rules restrict any use of the information to criminally investigate or prosecute any alcohol or drug abuse patient.[facility] Goals (unrecognized section and content) Goals [...] AUTHOR 02/10/2022 [facility] DATE CREATED AUTHOR AUTHOR'S ORGANIZ ATION 04/05/2025 [facility] DATE CREATED AUTHOR AUTHOR'S ORGANIZ ATION 06/22/2025 [facility] DATE CREATED AUTHOR AUTHOR'S ORGANIZ ATION 07/29/2025 [facility] Care Teams (unrecognized sec tion and [...] Active Start: January 13, 2025 Dr. Renae Rubalacva MD Other Provider Active St art: January [...] 2025 End: February 06, 2025 Dr. 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 Fwaad Bates MD Nurse Practitioner Active Start: June [...] 2025 Dr. Blake Kapoor MD Emergency Depart [facility] Physician Active Start: June 13, 2025 Dr. [...] 2025 Dr. Blake Kapoor MD Emergency Depart [facility] Physician Active Start: June 14, 2025 Dr. [...] Status: Active Member Role/Relationship Status Dates Dr. Briesyda Sinclair MD Primary care physician Active Start: June 15, 2025 Dr. Blake Kapoor MD Emergency Depart ment Physician Active Start: June 15, 2025 Dr. Tabby Zuniga MD Admitting physician Active Start: June 15, 2025 Dr. Tabby Zuniga MD Nurse Practitioner Active Start: June 15, 2025 Dr. Rihci Hope MD Nurse Practitioner Active Start: June [...] 2025 Dr. Blake Kapoor MD Emergency Depart [facility] Physician Active Start: June 10, 2025 Dr. [...] 2025 Dr. Blake Kapoor MD Emergency Depart [facility] Physician Active Start: June 13, 2025 Dr. [...] 2025 Dr. Blake Kapoor MD Emergency Depart [facility] Physician Active Start: June 13, 2025 Dr. [...] 2025 Dr. Blake Kapoor MD Emergency Depart [facility] Physician Active Start: June 14, 2025 Dr. [...] 2025 Dr. Blake Kapoor MD Emergency Depart [facility] Physician Active Start: June 14, 2025 Dr. [...] Active Start: June 07, 2025 Dr. Richi Hope MD [...] BE BASED ON THE PRIMARY CLINICAL RECORDS. [employer] provides no warranty or guarantee of the accuracy or completeness of information in this document.
[2025-09-13 06:59] LABS: Hematocrit 33.7 % (40-54); Hemoglobin 11.8 g/dL (13.0-16.5); Mean Corp Hgb Conc 35.0 g/dL (32-36); Mean Corpuscular Volume 89.9 fL (80-94); Mean Platelet Vol. 9.9 fl (6.2-12.0); Platelet Count 223 K/mm3 (150-450); RBC Distribution Width CV 12.8 % (11.6-14.6); RBC Distribution Width SD 42.2 fl (35.1-43.9); Red Blood Count 3.75 M/mm3 (4.6-6.2); White Blood Count 5.3 K/mm3 (4.4-11.0)
[2025-09-13 07:38] LABS: Anion Gap 11 (7-18); BUN 50 mg/dL (4-19); BUN/Creat Ratio 28.4 RATIO (10-20); Calcium,Total 9.6 mg/dL (7.6-11.0); Carbon Dioxide 21.6 mmol/L (20.0-29.0); Chloride 108 mmol/L (96-106); Ferritin 30 ng/mL (37-417); Glucose 213 mg/dL (70-99); Iron 62 ug/dL (65-175); Iron Binding Capacity,Total 310 ug/dL (250-450); Iron Binding Capacity,Unsat 248 ug/dL (228-428); Potassium 4.1 mmol/L (3.5-5.1)
[2025-09-13 10:01] LABS: Creatinine, Urine (random) 92.20 mg/dL (39.00-259.00); Protein, Urine (Random) 17.0 mg/dL (0.0-12.0); Protein:Creat Ratio 184 mg/g CRE (0-200)
== END | disposition home or self-care (01) ==
LOC: LAB 05:53
PROVIDERS: PCP Internal Medicine; Referring Provider Internal Medicine Nephrology; Visit Provider Internal Medicine Nephrology
DX: N18.32 Chronic kidney disease, stage 3b (principal); N17.9 Acute kidney failure, unspecified
CPT/HCPCS: 36415; 80048; 82570; 82728; 83540; 83550; 84156; 85027